=== PATIENT | female | born 1940 | race Caucasian/White ===

== ENCOUNTER 2023-01-09 14:15 | Emergency (ER) | payer MEDICARE, SELFPAY ==
[2023-01-09 14:17] VITALS: BP 147/70; PULSE 93; RESP 14; TEMP 36.8; O2SAT 98
--- NOTE | 2023-01-09 15:26 | EKG12_ITS ---
Test Reason : HTN Blood Pressure : / mmHG Vent. Rate : 081 BPM Atrial Rate : 081 BPM P-R Int : 138 ms QRS Dur : 084 ms QT Int : 388 ms P-R-T Axes : 025 -26 026 degrees QTc Int : 450 ms Sinus rhythm with occasional Premature ventricular complexes Minimal voltage criteria for LVH, may be normal variant ( R in aVL ) Inferior infarct , age undetermined Possible Anterior infarct , age undetermined Abnormal ECG Confirmed by QUITA BAILEY, FATIMAH ([id number]), greeting card editor JACQUI JUDD ([id number]) on 01/12/2023 8:28:21 AM Referred By: ANNETTE/GAVIOTA Confirmed By:NIDIA DEVLIN MD
--- NOTE | 2023-01-09 15:30 | NURSING ---
NO OLD EKG
--- NOTE | 2023-01-09 15:38 | EX.ED.DYSGE1 ---
HPI History of Present Illness Chief Complaint: Hypertension Informant: patient Narrative Narrative: Patient is a 82-year-old female with history of pulmonary fibrosis (on 2 L of oxygen at baseline), hypertension, migraines as well as regular headaches, anxiety and depression presenting for concerns of blood pressure issues as well as night sweats and increased headaches. Patient notes that she has been having blood pressure issues for months. She states that she starts to feel unwell and she will check her blood pressure will be elevated. She states her blood pressure as high as 174 and normal will be 130. She notes that she checks her blood pressure about every 3 hours but she is not feeling well she will check it more frequently. She notes that she is on 0.1 mg of clonidine twice daily as well as verapamil ER 240 mg. She states that around 3 AM she woke up feeling like her skin was on fire, her face was flushed and she was sweating and hot. She did not actually have a fever. She has been having these episodes intermittently. She notes her symptoms have been worse this week. She states she had some mild blurry vision. She has had headache which is different than her migraines as well as her chronic headaches. She states that on the top of her head and radiates to her neck. She denies any falls or head injuries. She denies any increase in her O2 requirements. She notes that when she ambulates with her oxygen on her oxygen stays around 94 however her heart rates been getting up to 103 with exertion. She denies any swelling of her legs. Denies any urinary symptoms. Denies any GI symptoms. Is living home alone. Her is now in a nursing facility and she recently relocated to the [facility] to be near other family. Denies any recent medication changes. Patient does note that she has had an ache in her chest that started today that is also between her shoulder blades. She notes that she has had this in the past but the things ever come of it. [facility] Medical History Anxiety GERD (gastroesophageal reflux disease) High cholesterol HTN (hypertension) Pulmonary fibrosis Home Medications cephalexin 500 mg capsule 500 mg PO BID #10 caps 01/09/23 [Rx Last Taken Unknown] Allergy/AdvReac Type Severity Reaction Status Date / Time No Known Allergies Allergy Verified 01/09/23 14:15 Social History Smoking Status: Never smoker ROS ROS ED Constitutional Constitutional ED: Reports sweats; Denies chills, fever(s) or weight loss Eyes Eyes: Reports blurry vision ENT ENT ED: Denies rhinorrhea or sore throat Cardiovascular Cardiovascular: Reports chest pain; Denies palpitations or racing heartbeat Respiratory/Chest Respiratory/Chest: Denies cough or dyspnea Gastrointestinal Gastrointestinal: Denies abdominal pain, constipation, diarrhea, melena, nausea or vomiting Musculoskeletal Musculoskeletal: Denies arthralgias or myalgias Neurologic Neurologic: Reports headache(s); Denies paresthesias or weakness Psychiatric Psychiatric: Reports anxiety and depression; Denies suicidal ideation or suicidal thoughts Hematologic/Lymphatic Hematologic/Lymphatic: Denies easy bleeding or easy bruising EXAM Physical Exam Const Vital Signs: 01/09/23 14:17 01/09/23 15:10 01/09/23 15:10 Temperature 98.3 F Temperature Source Temporal Pulse Rate 93 Respiratory Rate 14 Respiratory Effort Normal Non-Labored Respiratory Pattern Blood Pressure 147/70 H Blood Pressure Mean 95 Pulse Ox 98 Oxygen Delivery Method Room Air Room Air Oxygen Flow Rate (L/min) 01/09/23 15:41 01/09/23 15:41 01/09/23 16:30 Temperature Temperature Source Pulse Rate 75 95 Respiratory Rate 16 22 H Respiratory Effort Respiratory Pattern Normal Blood Pressure 177/80 H Blood Pressure Mean 112 Pulse Ox 95 Oxygen Delivery Method Nasal Cannula Oxygen Flow Rate (L/min) 3 01/09/23 19:11 Temperature Temperature Source Pulse Rate 70 Respiratory Rate 18 Respiratory Effort Respiratory Pattern Blood Pressure 180/85 H Blood Pressure Mean 116 Pulse Ox 97 Oxygen Delivery Method Nasal Cannula Oxygen Flow Rate (L/min) 3 Positive well nourished and well developed General Appearance ED: well developed and NAD HEENT Reports moist mucous membranes Eyes PERRL and EOMs intact bilaterally Neck supple and no JVD Chest Wall inspection of chest normal and palpation of chest normal Resp normal respiratory effort Resp Narrative: Crackles throughout consistent with history of pulmonary fibrosis, no increased work of breathing or conversational dyspnea Auscultation: Negative for wheezes or diminished lung sounds Cardio regular rate, regular rhythm and no murmurs GI normal to inspection, nondistended, normoactive bowel sounds and non-tender Back/Spine no CVA tenderness Neuro oriented x3 Sensorium / Orientation: alert Motor Exam: Negative for general weakness Psych mental status grossly normal Mood & Affect: anxious Skin no rashes or lesions noted and no wounds MDM MDM MDM Narrative Medical decision making narrative: Patient is evlauted for concern for labile BP ( high or normal) as well as general feeling of not feeling well, headache and hot sensation. Her symptoms are quite vague. Initially her blood pressure is normal. Does creased while she is in the ER however she is due for her evening clonidine. Prior to discharge she does take her clonidine. Her breathing is at her baseline. Broad work-up looking for metabolic cause of her symptoms, infectious as well as cardiac is performed. KG does not show any acute changes. Her high-sensitivity troponin is normal at 9. Her TSH is normal at 2.88. CBC shows a mild anemia with a hemoglobin 11.5 however I do not think this is the cause of her symptoms. CMP largely normal. Sodium mildly low at 134 which again I do not think is the cause of her symptoms. Urinalysis however does show a urinary tract infection with positive nitrites, 5-10 white blood cells and rare bacteria. Possible she has a subtle UTI that is causing these vague worsening of her symptoms. Patient is started on Keflex and given first dose in the emergency room. I do not think she requires admission for the symptoms at this time. As far as her pulmonary fibrosis she does not have any increased O2 demands or findings consistent with an acute pneumonia. I do wonder if there is an associated anxiety/depression that is causing her to have some of the symptoms and I did discuss this with her as well. Patient and niece at the bedside agreeable with discharge home. Given return precautions. Does have follow-up with her PCP in 10 days. Call sooner if she has further concerns or progression of symptoms. Lab Data Attestation: I reviewed the patient's lab results. Labs: Laboratory Results - last 24 hr 01/09/23 01/09/23 15:07 16:20 WBC 8.9 RBC 3.64 L Hgb 11.5 L Hct 36.7 L MCV 100.8 H MCH 31.6 MCHC 31.3 L RDW Std Deviation 49.9 H RDW Coeff of Francisca 13.4 Plt Count 248 MPV 9.1 Immature Gran % (Auto) 0.400 Neut % (Auto) 73.2 H Lymph % (Auto) 15.1 L [place] % (Auto) 7.5 Eos % (Auto) 2.9 Baso % (Auto) 0.9 Absolute Neuts (auto) 6.5 Absolute Lymphs (auto) 1.34 Nucleated RBC % 0 Sodium 134 L Potassium 3.5 Chloride 101 Carbon Dioxide 31.0 Anion Gap 2 L BUN 8 Creatinine 0.65 Est GFR (MDRD) Af Amer 112 Est GFR (MDRD) Non-Af 93 BUN/Creatinine Ratio 12.3 Glucose 108 H Calcium 8.8 Troponin I High Sens 9 TSH 2.88 Urine Color Yellow Urine Clarity Sl. Cloudy Urine pH 7.0 Ur Specific [place] 1.005 Urine Protein Negative Urine Glucose (UA) Normal Urine Ketones Negative Urine Occult Blood Negative Urine Nitrite Positive H Urine Bilirubin Negative Urine Urobilinogen Normal Ur Leukocyte Esterase 100 H Urine RBC 0 SEEN Urine WBC 5-10 SEEN Ur Squamous Epith Cells 0-5 SEEN Amorphous Sediment 1+ PHOS Urine Bacteria RARE Urine Mucus 0 SEEN Radiography Chest X-Ray - ED: 2 View, Read by ED Physician, Read by Radiologist and No Acute Disease Diagnostic Testing: Clinical Impression(s) from Imaging Studies Chest X-Ray 01/09/23 16:05 IMPRESSION: Diffuse interstitial opacities which may represent scar and fibrosis. There is no focal consolidation. Electronically Signed: Andrea Chao MD at 16:23 EST , Rhythm Strip Rhythm Strip: Sinus Rhythm Rate: 81 Ectopy: None EKG Initial EKG: Attestation: I personally reviewed and interpreted this EKG as follows: Interpretation: Sinus Rhythm Comments: Normal sinus rhythm at a rate of 81 bpm with PVC present Normal intervals Minimal voltage criteria for LVH Normal ST segments No prior EKG available for comparison Differential Diagnosis Chest pain/SOB: ACS ACS: Positive for no evidence of ACS based on cardiac biomarkers and EKG without ischemia and pneumonia Reason(s) pneumonia less likely: Positive for no infiltrate on CXR, no elevation in WBC count, no noted fever and symptoms not consistent with acute infection Discharge Plan Triage Chief Complaint: Hypertension ED Provider: Maci Bailon Dx/Rx/DC Orders Clinical Impression: Acute UTI, Hypertension Instructions: ED Hypertension, Established, ED Cystitis Female Adult Prescriptions: New cephalexin 500 mg capsule 500 mg PO BID Qty: 10 0RF Primary Care Provider: Сергей Verdugo Referrals: Сергей Verdugo MD [Primary Care Provider] - Activity Restrictions/Additional Instructions: Please check your blood pressure once or twice a day and keep a log. I do recommend checking your blood pressure after you have taking your blood pressure medicines. Continue taking all of your blood pressure medicines as prescribed. Your primary care doctor might want to make further adjustments when you follow-up. Call them on Thursday to let them know you are seen in the ER. Urinalysis is consistent with a urinary tract infection and you have been placed on a short course of antibiotics to help with this. This should not interact with your medications. Disposition Disposition: Home, Self Care Discharge Date/Time: 01/09/23 19:44
[2023-01-09] MEDS: Ipratropium/Albuterol Sulfate 3 ML AMPUL.NEB INHALATION (15:40)
[2023-01-09 15:41] VITALS: PULSE 75; RESP 16; O2SAT 95
[2023-01-09 15:53] LABS: Absolute Lymphocyte Count 1.34 X10^3/uL (0.83-4.51); Absolute Neutrophil Count 6.5 X10^3/uL (2.0-7.7); Basophil# 0.08 X10^3/uL; Basophil% 0.9 % (0-1); Eosinophil# 0.26 X10^3/uL; Eosinophils% 2.9 % (0-5); Hematocrit 36.7 % (37-47); Hemoglobin 11.5 g/dL (12.0-15.0); Lymphocyte # 1.34 X10^3/ul (0.83-4.51); Lymphocyte % 15.1 % (19-41); Mean Corp Hgb Conc 31.3 g/dL (32-36); Mean Corpuscular Hgb 31.6 pg (27.0-32.0); Mean Corpuscular Volume 100.8 fL (81-99); Mean Platelet Vol. 9.1 fl (6.2-12.0); Monocyte# 0.67 X10^3/uL; Monocyte% 7.5 % (0-10); NRBC Flagged by Analyzer 0 % (0-5); Neutrophil # 6.51 X10^3/uL (2.7-7.7); Neutrophil % 73.2 % (47-70); Platelet Count 248 K/mm3 (150-450); RBC Distribution Width CV 13.4 % (11.6-14.6); RBC Distribution Width SD 49.9 fl (35.1-43.9); Red Blood Count 3.64 M/mm3 (4.2-5.4); White Blood Count 8.9 K/mm3 (4.4-11.0)
--- NOTE | 2023-01-09 16:05 | RAD_ITS ---
EXAM: XR CHEST, 2 VIEWS CLINICAL INDICATION: sob TECHNIQUE: Frontal and lateral views of the chest. COMPARISON: No relevant prior studies available. FINDINGS: LUNGS AND PLEURAL SPACES: There are coarse interstitial opacities seen within both lungs greatest within the right upper and left lower lobe interstitial scarring and fibrosis. No pneumothorax. No effusion. HEART: Unremarkable. Cardiac silhouette not enlarged. MEDIASTINUM: Central airways and mediastinal contour are unremarkable. BONES/JOINTS: Unremarkable. SOFT TISSUES: Unremarkable. RAD/Chest PA and Lateral IMPRESSION: Diffuse interstitial opacities which may represent scar and fibrosis. There is no focal consolidation. Electronically Signed: Andrea Chao MD at 16:23 EST ,
[2023-01-09 16:06] LABS: Anion Gap 2 (5-15); BUN 8 mg/dL (7-18); BUN/Creat Ratio 12.3 RATIO (10-20); Calcium,Total 8.8 mg/dL (8.5-10.1); Chloride 101 mmol/L (98-107); Creatinine, Serum 0.65 mg/dL (0.55-1.02); EST Glomerular Filtration Rate 93 mL/min (>60); Est Glom Filt Rate - Afr Amer 112 mL/min (>60); Glucose 108 mg/dL (74-106); Potassium 3.5 mmol/L (3.5-5.1); Sodium Level 134 mmol/L (136-145); Thyroid Stim Hormone (TSH) 2.88 uIU/mL (0.358-3.74); Troponin-I HS 9 pg/mL (3.0-54.0)
[2023-01-09 16:30] VITALS: BP 177/80; PULSE 95; RESP 22
[2023-01-09 16:40] LABS: Mucous, Urine 0 SEEN /hpf (<or=2+); Red Blood Cells-Urine 0 SEEN /hpf (0-5)
[2023-01-09 17:01] LABS: Color, Urine Yellow (Yellow); Glucose, Dipstick Normal (Normal); Ketone-Dipstick Negative (Negative); Leukocyte Esterase-Dipstick 100 /ul (Negative); Nitrite-Dipstick Positive (Negative); Occult Blood-Urine Negative /ul (Negative); Protein-Dipstick Negative (Negative); Specific Gravity, Urine 1.005 (1.002-1.030); Urine Bilirubin Dipstick Negative (Negative); Urine Clarity Sl. Cloudy (Clear); Urine Urobilinogen Normal (Normal)
[2023-01-09 17:07] LABS: Bacteria RARE /hpf (None Seen); Squamous Epithelial Cells - UA 0-5 SEEN /hpf (5-10); White Blood Cells 5-10 SEEN /hpf (0-5)
[2023-01-09 17:08] LABS: Amorphous Sediment 1+ PHOS
[2023-01-09] MEDS: Cephalexin 250 MG Capsule 500 MG PO (18:55)
[2023-01-09 19:11] VITALS: BP 180/85; PULSE 70; RESP 18; O2SAT 97
[2023-01-09 19:14] VITALS: BMI 28.3
== END 2023-01-09 19:44 | disposition home or self-care (01) ==
PROVIDERS: Emergency Provider Emergency Medicine; PCP Internal Medicine; Visit Provider Emergency Medicine
DX: N39.0 Urinary tract infection, site not specified (principal); I10 Essential (primary) hypertension; Z99.81 Dependence on supplemental oxygen
CPT/HCPCS: 71046; 80048; 81001; 84443; 84484; 85025; 87077; 87086; 87088; 87186; 93005; 94640; 99284; A4216

== ENCOUNTER 2023-01-21 16:00 | Emergency (ER) | payer MEDICARE, SELFPAY ==
[2023-01-21] VITALS (22 sets, daily range): BP systolic 169–217; BP diastolic 84–166; PULSE 86–108; RESP 14–28; TEMP 36.7; O2SAT 95–98; BMI 26.2
--- NOTE | 2023-01-21 16:36 | EX.ED.DYSGE1 ---
HPI History of Present Illness Chief Complaint: Allergic Reaction Detail of Chief Complaint: Concern for allergic reaction Informant: patient Narrative Narrative: Patient presents with burning skin made worse today after taking prednisone. Patient states she was seen by her primary care physician 3 days ago and started prednisone for some sinus issues and cells that she was taken tapering dose prednisone. Patient also tells me she has had this burning skin sensation for some time in the past. She thought it was related possibly to soaps or perfumes or other allergens and so she started switching some things around. She also felt somewhat short of breath. She called the nurse line and was advised to come in and get evaluated. Patient has history of pulmonary fibrosis and is on 3 L nasal cannula O2 all the time. She denies any chest pain. [facility] Medical History Anxiety GERD (gastroesophageal reflux disease) High cholesterol HTN (hypertension) Pulmonary fibrosis Home Medications alprazolam 1 mg tablet 1 mg PO TID PRN anxiety 01/21/23 [History Last Taken Unknown] betamethasone valerate 0.1 % topical cream 1 applic topical Q12H PSORIASIS 01/21/23 [History Last Taken Unknown] clonidine HCl 0.1 mg tablet 0.1 mg PO TID HTN 01/21/23 [History Last Taken Unknown] esomeprazole magnesium 40 mg capsule,delayed release 40 mg PO Q12H 01/21/23 [History Last Taken Unknown] fluticasone propionate 110 mcg/actuation HFA aerosol inhaler (Flovent HFA) inhalation 01/21/23 [History Last Taken Unknown] fluticasone propionate 50 mcg/actuation nasal spray,suspension intranasal 01/21/23 [History Last Taken Unknown] levothyroxine 25 mcg tablet 25 mcg PO DAILY 01/21/23 [History Last Taken Unknown] pirfenidone 267 mg capsule (Esbriet) 267 mg PO TID 01/21/23 [History Last Taken Unknown] prednisone 10 mg tablet 10 mg PO 01/21/23 [History Last Taken Unknown] Allergy/AdvReac Type Severity Reaction Status Date / Time amoxicillin Allergy Mild PT UNSURE Verified 01/21/23 16:46 OF REACTION aspirin Allergy Mild PALPITATION Verified 01/21/23 16:46 S ibuprofen Allergy Mild Swelling Verified 01/21/23 16:46 montelukast Allergy Mild Rash Verified 01/21/23 16:46 rofecoxib Allergy Mild Itching Verified 01/21/23 16:46 Sulfa (Sulfonamide Allergy Mild Rash Verified 01/21/23 16:46 Antibiotics) doxycycline AdvReac Mild GI UPSET Verified 01/21/23 16:46 lisinopril AdvReac Mild GI UPSET Verified 01/21/23 16:46 sertraline AdvReac Mild Diarrhea Verified 01/21/23 16:46 Social History Smoking Status: Never smoker ROS ROS ED Review of Systems ROS Unobtainable: other Constitutional Constitutional ED: Reports lethargy; Denies chills, fever(s), sweats or weight loss Eyes Eyes: Denies blurry vision, change in vision or diplopia ENT ENT ED: Denies rhinorrhea or sore throat Cardiovascular Cardiovascular: Denies chest pain, orthopnea or racing heartbeat Respiratory/Chest Respiratory/Chest: Reports dyspnea; Denies cough, orthopnea or sputum Gastrointestinal Gastrointestinal: Denies abdominal pain, diarrhea, nausea or vomiting Genitourinary Genitourinary ED: Denies dysuria, hematuria or urinary frequency Musculoskeletal Musculoskeletal: Denies arthralgias, back pain, myalgias or neck pain Integumentary Reports other Details: Burning skin sensation ; Denies abscess, Abrasions or rash Neurologic Neurologic: Denies headache(s) or weakness Psychiatric Psychiatric: Denies anxiety, depression or suicidal thoughts Endocrine Endocrinology: Denies polydipsia, polyphagia or polyuria Hematologic/Lymphatic Hematologic/Lymphatic: Denies easy bleeding, easy bruising or lymphadenopathy Allergic/Immunologic Allergic/Immunologic ED: Denies mouth swelling, tongue swelling or urticaria EXAM Physical Exam Const Vital Signs: 01/21/23 16:01 01/21/23 16:10 01/21/23 16:20 Temperature 98.1 F Temperature Source Temporal Pulse Rate 108 H 91 91 Respiratory Rate 16 14 Respiratory Effort Respiratory Depth Respiratory Pattern Blood Pressure 217/166 H 184/97 H 187/90 H Blood Pressure Mean 183 126 122 Pulse Ox 95 98 98 Oxygen Delivery Method Nasal Cannula Nasal Cannula Nasal Cannula Oxygen Flow Rate (L/min) 3 3 3 01/21/23 16:21 01/21/23 16:47 01/21/23 16:50 Temperature Temperature Source Pulse Rate 90 Respiratory Rate 28 H 21 H Respiratory Effort Short of Breath Respiratory Depth Normal Respiratory Pattern Normal Blood Pressure Blood Pressure Mean Pulse Ox 98 98 Oxygen Delivery Method Nasal Cannula Oxygen Flow Rate (L/min) 3 01/21/23 17:00 01/21/23 17:13 01/21/23 17:15 Temperature Temperature Source Pulse Rate 86 95 90 Respiratory Rate 26 H 27 H 23 H Respiratory Effort Respiratory Depth Respiratory Pattern Blood Pressure 176/90 H 190/89 H Blood Pressure Mean 116 117 Pulse Ox 98 96 98 Oxygen Delivery Method Oxygen Flow Rate (L/min) 01/21/23 17:20 01/21/23 17:30 01/21/23 17:40 Temperature Temperature Source Pulse Rate 89 88 89 Respiratory Rate 24 H 21 H 24 H Respiratory Effort Respiratory Depth Respiratory Pattern Blood Pressure 186/90 H Blood Pressure Mean 117 Pulse Ox 98 98 98 Oxygen Delivery Method Oxygen Flow Rate (L/min) 01/21/23 17:45 01/21/23 17:50 01/21/23 18:00 Temperature Temperature Source Pulse Rate 87 89 91 Respiratory Rate 19 H 24 H 18 Respiratory Effort Respiratory Depth Respiratory Pattern Blood Pressure 169/92 H 190/85 H Blood Pressure Mean 116 114 Pulse Ox 98 98 98 Oxygen Delivery Method Oxygen Flow Rate (L/min) 01/21/23 18:10 01/21/23 18:15 01/21/23 18:20 Temperature Temperature Source Pulse Rate 90 94 92 Respiratory Rate 28 H 21 H 21 H Respiratory Effort Respiratory Depth Respiratory Pattern Blood Pressure 191/91 H Blood Pressure Mean 117 Pulse Ox 98 98 98 Oxygen Delivery Method Oxygen Flow Rate (L/min) 01/21/23 18:30 01/21/23 18:40 01/21/23 18:45 Temperature Temperature Source Pulse Rate 94 93 92 Respiratory Rate 28 H 28 H 22 H Respiratory Effort Respiratory Depth Respiratory Pattern Blood Pressure 190/89 H 183/84 H Blood Pressure Mean 116 111 Pulse Ox 98 98 98 Oxygen Delivery Method Oxygen Flow Rate (L/min) 01/21/23 18:50 Temperature Temperature Source Pulse Rate 94 Respiratory Rate 19 H Respiratory Effort Respiratory Depth Respiratory Pattern Blood Pressure Blood Pressure Mean Pulse Ox 97 Oxygen Delivery Method Oxygen Flow Rate (L/min) Positive well nourished and well developed General Appearance ED: well developed and NAD HEENT Reports TM's clear and moist mucous membranes normocephalic and atraumatic; Negative for trauma or tenderness Tympanic Membrane ED: Yes TM's clear Eyes PERRL and EOMs intact bilaterally General Eye ED: Negative for pale conjunctiva or scleral icterus Neck no lymphadenopathy, supple and no JVD General: Negative for tenderness Chest Wall inspection of chest normal and palpation of chest normal Chest: Negative for tenderness Resp normal respiratory effort and clear to auscultation bilaterally Effort and Inspection: Negative for respiratory distress or pain with movement Auscultation: Negative for rhonchi, wheezes or diminished lung sounds Cardio regular rate, regular rhythm, S1 normal heart sound, S2 normal heart sound and no murmurs Peripheral Pulses: pulses 2+ throughout GI normal to inspection, nondistended, normoactive bowel sounds, soft to palpation, non-tender, non-distended and no masses Back/Spine no CVA tenderness and no thoracic nor lumbar tenderness Extremity normal to inspection General Extremety ED: Negative for edema General Extremity: Negative for edema Neuro oriented x3, CN's II-XII intact bilaterally, no sensory deficits noted and gait normal Sensorium / Orientation: awake, alert, oriented to person, oriented to place and oriented to time Motor Exam: strength 5/5 throughout and strength abnormal Psych mental status grossly normal Skin no rashes or lesions noted and no wounds MDM MDM MDM Narrative Medical decision making narrative: Patient presents with burning skin and some mild shortness of breath that she thinks is related to starting prednisone. Patient's had similar episodes in the past when taking prednisone. Currently the burning skin sensation seems to be improved. I did obtain some basic labs. CBC with differential showed a white count of 8.8 with hemoglobin 11.5 and platelet count of 240. Chemistries unremarkable. Glucose slightly elevated 168 and urinalysis is normal. At this point I recommended she discontinue the prednisone. She is in agreement. She will use Maria C for itching should she need it. There is no evidence for anaphylaxis here. Also recommended that she alert her primary care physician and other physicians regarding her reaction to prednisone in the future. Lab Data Attestation: I reviewed the patient's lab results. Labs: Laboratory Results - last 24 hr 01/21/23 01/21/23 16:16 17:12 WBC 8.8 RBC 3.66 L Hgb 11.5 L Hct 36.4 L MCV 99.5 H MCH 31.4 MCHC 31.6 L RDW Std Deviation 48.9 H RDW Coeff of [place]isca 13.4 Plt Count 240 MPV 9.5 Immature Gran % (Auto) 1.400 H Neut % (Auto) 93.0 H Lymph % (Auto) 4.2 L [place] % (Auto) 0.7 Eos % (Auto) 0.2 Baso % (Auto) 0.5 Absolute Neuts (auto) 8.1 H Absolute Lymphs (auto) 0.37 L Nucleated RBC % 0 Differential Comment SCANNED Sodium 135 L Potassium 3.9 Chloride 102 Carbon Dioxide 31.0 Anion Gap 2 L BUN 12 Creatinine 0.66 Estim Creat Clear Calc 34.90 Est GFR (MDRD) Af Amer 111 Est GFR (MDRD) Non-Af 92 BUN/Creatinine Ratio 18.3 Glucose 169 H Calcium 9.3 Urine Color Yellow Urine Clarity Clear Urine pH 7.0 Ur Specific [place] 1.010 Urine Protein Negative Urine Glucose (UA) Normal Urine Ketones Negative Urine Occult Blood Negative Urine Nitrite Negative Urine Bilirubin Negative Urine Urobilinogen Normal Ur Leukocyte Esterase Negative Urine RBC 0 SEEN Urine WBC 0 SEEN Ur Squamous Epith Cells 0 SEEN Urine Bacteria 0 SEEN Urine Mucus 0 SEEN Discharge Plan Triage Chief Complaint: Allergic Reaction ED Provider: Doni Crocker Dx/Rx/DC Orders Clinical Impression: Side effect of drug Instructions: ED Drug Reaction, Other Prescriptions: No Action clonidine HCl 0.1 mg tablet 0.1 mg PO TID prednisone 10 mg tablet 10 mg PO alprazolam 1 mg tablet 1 mg PO TID PRN (Reason: anxiety) betamethasone valerate 0.1 % cream 1 applic TOPICAL Q12H Patient Comments: APPLY 1 APPLICATION TO AFFECTED AREA TWICE DAILY esomeprazole magnesium 40 mg capsule,delayed release(DR/EC) 40 mg PO Q12H fluticasone propionate 50 mcg/actuation spray,suspension INTRANASAL fluticasone propionate [Flovent HFA] 110 mcg/actuation HFA aerosol inhaler INHALATION pirfenidone [Esbriet] 267 mg capsule 267 mg PO TID levothyroxine 25 mcg tablet 25 mcg PO DAILY Primary Care Provider: Сергей Verdugo Referrals: Сергей Verdugo MD [Primary Care Provider] - 3-5 Days Disposition Disposition: Home, Self Care
[2023-01-21 17:05] LABS: Absolute Lymphocyte Count 0.37 X10^3/uL (0.83-4.51); Absolute Neutrophil Count 8.1 X10^3/uL (2.0-7.7); Basophil# 0.04 X10^3/uL; Basophil% 0.5 % (0-1); Eosinophil# 0.02 X10^3/uL; Eosinophils% 0.2 % (0-5); Hematocrit 36.4 % (37-47); Hemoglobin 11.5 g/dL (12.0-15.0); Lymphocyte # 0.37 X10^3/ul (0.83-4.51); Lymphocyte % 4.2 % (19-41); Mean Corp Hgb Conc 31.6 g/dL (32-36); Mean Corpuscular Hgb 31.4 pg (27.0-32.0); Mean Corpuscular Volume 99.5 fL (81-99); Mean Platelet Vol. 9.5 fl (6.2-12.0); Monocyte# 0.06 X10^3/uL; Monocyte% 0.7 % (0-10); NRBC Flagged by Analyzer 0 % (0-5); Neutrophil # 8.14 X10^3/uL (2.7-7.7); POSITIVE DIFFERENTIAL YES; Platelet Count 240 K/mm3 (150-450); RBC Distribution Width CV 13.4 % (11.6-14.6); RBC Distribution Width SD 48.9 fl (35.1-43.9); Red Blood Count 3.66 M/mm3 (4.2-5.4); White Blood Count 8.8 K/mm3 (4.4-11.0)
[2023-01-21 17:07] LABS: Anion Gap 2 (5-15); BUN 12 mg/dL (7-18); BUN/Creat Ratio 18.3 RATIO (10-20); Calcium,Total 9.3 mg/dL (8.5-10.1); Chloride 102 mmol/L (98-107); Creatinine, Serum 0.66 mg/dL (0.55-1.02); EST Glomerular Filtration Rate 92 mL/min (>60); Est Glom Filt Rate - Afr Amer 111 mL/min (>60); Glucose 169 mg/dL (74-106); Potassium 3.9 mmol/L (3.5-5.1); Sodium Level 135 mmol/L (136-145)
[2023-01-21 17:09] LABS: Differential Indicated SCAN CRITERIA MET
[2023-01-21 17:24] LABS: Bacteria 0 SEEN /hpf (None Seen); Mucous, Urine 0 SEEN /hpf (<or=2+); Red Blood Cells-Urine 0 SEEN /hpf (0-5); Squamous Epithelial Cells - UA 0 SEEN /hpf (5-10); White Blood Cells 0 SEEN /hpf (0-5)
[2023-01-21 17:30] LABS: Color, Urine Yellow (Yellow); Glucose, Dipstick Normal (Normal); Ketone-Dipstick Negative (Negative); Leukocyte Esterase-Dipstick Negative /ul (Negative); Nitrite-Dipstick Negative (Negative); Occult Blood-Urine Negative /ul (Negative); Protein-Dipstick Negative (Negative); Urine Bilirubin Dipstick Negative (Negative); Urine Clarity Clear (Clear); Urine Urobilinogen Normal (Normal)
[2023-01-21 17:49] LABS: Differential Comment SCANNED
== END 2023-01-21 19:24 | disposition home or self-care (01) ==
PROVIDERS: Emergency Provider Emergency Medicine; PCP Internal Medicine; Visit Provider Emergency Medicine
DX: R06.02 Shortness of breath (principal); T38.0X5A Adverse effect of glucocorticoids and synthetic analogues, initial encounter; Z79.899 Other long term (current) drug therapy
CPT/HCPCS: 80048; 81001; 85025; 87428; 99285; A4216

== ENCOUNTER → 2023-07-28 | Outpatient (REF) | payer MEDICARE, SELFPAY ==
[2023-07-28 08:23] LABS: Absolute Lymphocyte Count 1.17 X10^3/uL (0.83-4.51); Absolute Neutrophil Count 5.1 X10^3/uL (2.0-7.7); Basophil# 0.07 X10^3/uL; Basophil% 0.9 % (0-1); Eosinophil# 0.66 X10^3/uL; Eosinophils% 8.5 % (0-5); Hematocrit 36.5 % (37-47); Hemoglobin 11.5 g/dL (12.0-15.0); Lymphocyte # 1.17 X10^3/ul (0.83-4.51); Lymphocyte % 15.2 % (19-41); Mean Corp Hgb Conc 31.5 g/dL (32-36); Mean Corpuscular Hgb 32.4 pg (27.0-32.0); Mean Corpuscular Volume 102.8 fL (81-99); Mean Platelet Vol. 9.5 fl (6.2-12.0); Monocyte# 0.62 X10^3/uL; NRBC Flagged by Analyzer 0 % (0-5); Neutrophil # 5.09 X10^3/uL (2.7-7.7); Platelet Count 228 K/mm3 (150-450); RBC Distribution Width CV 12.2 % (11.6-14.6); RBC Distribution Width SD 46.5 fl (35.1-43.9); Red Blood Count 3.55 M/mm3 (4.2-5.4); White Blood Count 7.7 K/mm3 (4.4-11.0)
[2023-07-28 09:50] LABS: ALB/GLOB Ratio 0.9 RATIO (0.9-2.4); AST(SGOT) 25 U/L (15-37); Alanine Aminotransfer ALT/SGPT 21 U/L (13-56); Albumin, Serum 3.4 g/dL (3.2-5.0); Alkaline Phosphatase 84 U/L (45-117); Anion Gap 5 (5-15); BUN 8 mg/dL (7-18); BUN/Creat Ratio 11.4 RATIO (10-20); Chloride 102 mmol/L (98-107); EST Glomerular Filtration Rate 85 mL/min (>60); Est Glom Filt Rate - Afr Amer 103 mL/min (>60); Globulin 3.7 g/dL (2.2-4.2); Glucose 101 mg/dL (74-106); Potassium 4.1 mmol/L (3.5-5.1); Protein, Total 7.1 g/dL (6.4-8.2); Sodium Level 137 mmol/L (136-145); Thyroid Stim Hormone (TSH) 2.28 uIU/mL (0.358-3.74)
== END ==
LOC: OLS.WHLEAS 05:00
PROVIDERS: PCP Internal Medicine; Visit Provider Internal Medicine
DX: E03.9 Hypothyroidism, unspecified (principal); I10 Essential (primary) hypertension
CPT/HCPCS: 36415; 80053; 84443; 85025

== ENCOUNTER → 2023-08-11 | Outpatient (REF) | payer MEDICARE, SELFPAY ==
[2023-08-11 09:43] LABS: Absolute Lymphocyte Count 1.65 X10^3/uL (0.83-4.51); Absolute Neutrophil Count 4.1 X10^3/uL (2.0-7.7); Basophil# 0.09 X10^3/uL; Basophil% 1.3 % (0-1); Eosinophil# 0.52 X10^3/uL; Eosinophils% 7.6 % (0-5); Hematocrit 37.4 % (37-47); Hemoglobin 11.7 g/dL (12.0-15.0); Lymphocyte # 1.65 X10^3/ul (0.83-4.51); Mean Corp Hgb Conc 31.3 g/dL (32-36); Mean Corpuscular Hgb 32.1 pg (27.0-32.0); Mean Corpuscular Volume 102.7 fL (81-99); Mean Platelet Vol. 9.5 fl (6.2-12.0); Monocyte# 0.51 X10^3/uL; Monocyte% 7.4 % (0-10); NRBC Flagged by Analyzer 0 % (0-5); Neutrophil # 4.09 X10^3/uL (2.7-7.7); Neutrophil % 59.4 % (47-70); Platelet Count 260 K/mm3 (150-450); RBC Distribution Width SD 45.5 fl (35.1-43.9); Red Blood Count 3.64 M/mm3 (4.2-5.4); White Blood Count 6.9 K/mm3 (4.4-11.0)
[2023-08-11 10:20] LABS: ALB/GLOB Ratio 0.8 RATIO (0.9-2.4); AST(SGOT) 16 U/L (15-37); Alanine Aminotransfer ALT/SGPT 18 U/L (13-56); Albumin, Serum 3.2 g/dL (3.2-5.0); Alkaline Phosphatase 95 U/L (45-117); Anion Gap 5 (5-15); BUN 9 mg/dL (7-18); Calcium,Total 9.7 mg/dL (8.5-10.1); Chloride 103 mmol/L (98-107); Creatinine, Serum 0.64 mg/dL (0.55-1.02); EST Glomerular Filtration Rate 94 mL/min (>60); Est Glom Filt Rate - Afr Amer 114 mL/min (>60); Globulin 4.1 g/dL (2.2-4.2); Glucose 102 mg/dL (74-106); Potassium 3.9 mmol/L (3.5-5.1); Protein, Total 7.3 g/dL (6.4-8.2); Sodium Level 139 mmol/L (136-145); Thyroid Stim Hormone (TSH) 3.26 uIU/mL (0.358-3.74)
== END ==
LOC: OLS.WHLEAS 05:00
PROVIDERS: PCP Internal Medicine; Visit Provider Internal Medicine
DX: E03.9 Hypothyroidism, unspecified (principal); I10 Essential (primary) hypertension
CPT/HCPCS: 36415; 80053; 84443; 85025

== ENCOUNTER → 2023-08-25 | Outpatient (REF) | payer MEDICARE, SELFPAY ==
[2023-08-25 09:30] LABS: Absolute Lymphocyte Count 1.29 X10^3/uL (0.83-4.51); Absolute Neutrophil Count 4.2 X10^3/uL (2.0-7.7); Basophil# 0.06 X10^3/uL; Basophil% 0.9 % (0-1); Eosinophil# 0.59 X10^3/uL; Eosinophils% 8.8 % (0-5); Hematocrit 35.3 % (37-47); Hemoglobin 10.9 g/dL (12.0-15.0); Lymphocyte # 1.29 X10^3/ul (0.83-4.51); Lymphocyte % 19.2 % (19-41); Mean Corp Hgb Conc 30.9 g/dL (32-36); Mean Corpuscular Hgb 31.9 pg (27.0-32.0); Mean Corpuscular Volume 103.2 fL (81-99); Mean Platelet Vol. 9.8 fl (6.2-12.0); Monocyte% 8.9 % (0-10); NRBC Flagged by Analyzer 0 % (0-5); Neutrophil # 4.16 X10^3/uL (2.7-7.7); Neutrophil % 61.9 % (47-70); Platelet Count 227 K/mm3 (150-450); RBC Distribution Width CV 12.3 % (11.6-14.6); RBC Distribution Width SD 46.5 fl (35.1-43.9); Red Blood Count 3.42 M/mm3 (4.2-5.4); White Blood Count 6.7 K/mm3 (4.4-11.0)
[2023-08-25 09:36] LABS: ALB/GLOB Ratio 0.9 RATIO (0.9-2.4); AST(SGOT) 14 U/L (15-37); Alanine Aminotransfer ALT/SGPT 14 U/L (13-56); Alkaline Phosphatase 80 U/L (45-117); Anion Gap 3 (5-15); BUN 9 mg/dL (7-18); Calcium,Total 8.9 mg/dL (8.5-10.1); Chloride 103 mmol/L (98-107); Creatinine, Serum 0.69 mg/dL (0.55-1.02); EST Glomerular Filtration Rate 86 mL/min (>60); Est Glom Filt Rate - Afr Amer 105 mL/min (>60); Globulin 3.4 g/dL (2.2-4.2); Glucose 99 mg/dL (74-106); Potassium 3.8 mmol/L (3.5-5.1); Protein, Total 6.4 g/dL (6.4-8.2); Sodium Level 140 mmol/L (136-145)
== END ==
LOC: OLS.WHLEAS 06:25
PROVIDERS: PCP Internal Medicine; Visit Provider Internal Medicine
DX: E03.9 Hypothyroidism, unspecified (principal); I10 Essential (primary) hypertension
CPT/HCPCS: 36415; 80053; 84443; 85025

== ENCOUNTER → 2023-09-11 | Outpatient (CLI) | payer MEDICARE, SELFPAY ==
--- NOTE | 2023-09-11 13:11 | RAD_ITS ---
STUDY: X-RAY - PELVIS AND RIGHT HIP REASON FOR EXAM: Female, 83 years old. PAIN TECHNIQUE: 3 views of the pelvis and hip. COMPARISON: None. FINDINGS: There is a non-specific bowel gas pattern. Normal visualized soft tissue structures. Normal bilateral iliac wings, sacroiliac joints and visualized sacrum. Normal bilateral superior and inferior pubic rami. Normal pubic symphysis. Normal bilateral ischial tuberosities. There are osteoarthritic changes of the femoral head with marginal osteophyte formation. There is cortical sclerosis with sub-cortical cyst formation of the acetabulum. is severe articular joint space narrowing of the hip. 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 Electronically Signed: Nikhil Sarabia MD at 14:12 EDT ,
== END | disposition home or self-care (01) ==
PROVIDERS: PCP Internal Medicine; Referring Provider Anesthesiology; Visit Provider Anesthesiology
DX: M25.551 Pain in right hip (principal)
CPT/HCPCS: 73502

== ENCOUNTER → 2023-09-15 05:00 | Outpatient (REF) | payer MEDICARE, SELFPAY ==
[2023-09-15 08:29] LABS: Absolute Lymphocyte Count 1.12 X10^3/uL (0.83-4.51); Absolute Neutrophil Count 2.8 X10^3/uL (2.0-7.7); Basophil# 0.07 X10^3/uL; Basophil% 1.3 % (0-1); Eosinophil# 0.68 X10^3/uL; Eosinophils% 12.9 % (0-5); Hematocrit 34.3 % (37-47); Hemoglobin 10.7 g/dL (12.0-15.0); Lymphocyte # 1.12 X10^3/ul (0.83-4.51); Lymphocyte % 21.3 % (19-41); Mean Corp Hgb Conc 31.2 g/dL (32-36); Mean Corpuscular Hgb 31.3 pg (27.0-32.0); Mean Corpuscular Volume 100.3 fL (81-99); Mean Platelet Vol. 9.9 fl (6.2-12.0); Monocyte# 0.58 X10^3/uL; NRBC Flagged by Analyzer 0 % (0-5); Neutrophil # 2.79 X10^3/uL (2.7-7.7); Neutrophil % 53.1 % (47-70); Platelet Count 227 K/mm3 (150-450); RBC Distribution Width CV 12.2 % (11.6-14.6); RBC Distribution Width SD 44.3 fl (35.1-43.9); Red Blood Count 3.42 M/mm3 (4.2-5.4); White Blood Count 5.3 K/mm3 (4.4-11.0)
[2023-09-15 08:38] LABS: Anion Gap 3 (5-15); BUN 9 mg/dL (7-18); BUN/Creat Ratio 15.9 RATIO (10-20); Calcium,Total 8.8 mg/dL (8.5-10.1); Chloride 101 mmol/L (98-107); Creatinine, Serum 0.57 mg/dL (0.55-1.02); EST Glomerular Filtration Rate 109 mL/min (>60); Est Glom Filt Rate - Afr Amer 132 mL/min (>60); Glucose 113 mg/dL (74-106); Sodium Level 137 mmol/L (136-145)
== END ==
LOC: OLS.WHLEAS 05:00
PROVIDERS: PCP Internal Medicine; Visit Provider Nurse Practitioner Adult Health
DX: I10 Essential (primary) hypertension (principal)
CPT/HCPCS: 36415; 80048; 85025

== ENCOUNTER → 2023-10-20 05:00 | Outpatient (REF) | payer MEDICARE, SELFPAY ==
[2023-10-20 08:34] LABS: AST(SGOT) 14 U/L (15-37); Alanine Aminotransfer ALT/SGPT 13 U/L (13-56); Albumin, Serum 2.8 g/dL (3.2-5.0); Alkaline Phosphatase 81 U/L (45-117); Bilirubin, Direct 0.07 mg/dL (0.00-0.30); Globulin 3.7 g/dL (2.2-4.2); Protein, Total 6.5 g/dL (6.4-8.2)
== END ==
LOC: OLS.WHLEAS 05:00
PROVIDERS: PCP Internal Medicine; Visit Provider Internal Medicine
DX: E03.9 Hypothyroidism, unspecified (principal)
CPT/HCPCS: 36415; 80076; 84443

== ENCOUNTER 2023-11-30 19:22 | Emergency (ER) | payer MEDICARE, MEDICAID, SELFPAY ==
[2023-11-30 19:24] VITALS: BP 172/93; PULSE 104; RESP 18; TEMP 36.5; O2SAT 84
[2023-11-30 19:28] VITALS: BMI 25.3
[2023-11-30 19:41] VITALS: PULSE 99; RESP 16; O2SAT 77
[2023-11-30 19:48] VITALS: O2SAT 92
--- NOTE | 2023-11-30 21:01 | EDS_ITS ---
HPI History of Present Illness Chief Complaint: Nosebleed Narrative Narrative: Chief complaint and HPI: Nosebleed. 83-year-old female presents for evaluation of a nosebleed. Patient states she wears oxygen at home and this often dries out her nose. She states she has been having an intermittent nosebleed all day. She states she could not stop it at home which is why she presents currently. She denies any headache, lightheadedness, shortness of breath, chest pain abdominal pain, nausea, vomiting, weakness. Patient is not on any blood thinners. Review of systems: See HPI Medications: As listed on the chart Allergies: As listed on the chart PFSH: Per chart Vital signs: As listed on the chart. Reviewed. Physical exam: Gen: A&O x3, NAD Head: Normocephalic, atraumatic Eyes: No sclera icterus, conjunctiva clear, PERRL, EOMI ENT: Bilateral nares with blood clots -patient blew her nose and these were easily removed, bilateral nares without any active bleeding or injury, moist mucous membranes, posterior oropharynx unremarkable without dried blood or blood in the mouth, uvula midline Neck: Trachea midline, No JVD, Full ROM CV: RRR, no murmurs Resp: Lungs CTA BL, no w/r/c Musc: Full ROM, no deformity Neuro: Alert, oriented, grossly intact Psych: Cooperative, appropriate mood and affect [facility] Medical History Anxiety GERD (gastroesophageal reflux disease) High cholesterol HTN (hypertension) Pulmonary fibrosis Home Medications ?Medication ?Instructions ?Recorded ?Last Taken ?Type alprazolam 1 mg tablet 1 mg PO TID PRN anxiety 01/21/23 Unknown History clonidine HCl 0.1 mg tablet 0.1 mg PO TID HTN 01/21/23 Unknown History fluticasone propionate 110 1 puff inhalation Q12H 01/21/23 Unknown History mcg/actuation HFA aerosol inhaler (Flovent HFA) fluticasone propionate 50 1 spray intranasal Q12H 01/21/23 Unknown History mcg/actuation nasal spray,suspension levothyroxine 25 mcg tablet 25 mcg PO DAILY 01/21/23 Unknown History pirfenidone 267 mg capsule 267 mg PO TID 01/21/23 Unknown History (Esbriet) Allergy/AdvReac Type Severity Reaction Status Date / Time amoxicillin Allergy Mild PT UNSURE Verified 01/21/23 16:46 OF REACTION aspirin Allergy Mild PALPITATION Verified 01/21/23 16:46 S ibuprofen Allergy Mild Swelling Verified 01/21/23 16:46 montelukast Allergy Mild Rash Verified 01/21/23 16:46 rofecoxib Allergy Mild Itching Verified 01/21/23 16:46 Sulfa (Sulfonamide Allergy Mild Rash Verified 01/21/23 16:46 Antibiotics) doxycycline AdvReac Mild GI UPSET Verified 01/21/23 16:46 lisinopril AdvReac Mild GI UPSET Verified 01/21/23 16:46 sertraline AdvReac Mild Diarrhea Verified 01/21/23 16:46 Social History Smoking Status: Never smoker EXAM Physical Exam Const Vital Signs: 11/30/23 19:24 11/30/23 19:41 11/30/23 19:48 Temperature 97.7 F L Temperature Source Temporal Pulse Rate 104 H 99 Respiratory Rate 18 16 Blood Pressure 172/93 H Blood Pressure Mean 119 Pulse Ox 84 77 92 Oxygen Delivery Method Room Air 11/30/23 21:50 11/30/23 22:10 Temperature 97.6 F L Temperature Source Pulse Rate 96 89 Respiratory Rate 20 H 18 Blood Pressure 196/95 H 155/62 H Blood Pressure Mean 128 93 Pulse Ox 99 94 Oxygen Delivery Method Room Air MDM MDM MDM Narrative Medical decision making narrative: 83-year-old female presents for evaluation of nosebleed. Has been intermittent all day. Patient wears oxygen at baseline which dries out her nose. Patient is not on any blood thinners. She is asymptomatic other than a nosebleed. Given that patient is not on any blood thinners and asymptomatic I do not think any laboratory workup is needed at this time. See physical exam findings. Currently no active bleeding. Patient's continued bleeding may have been secondary to the large blood clots in her bilateral nares. No posterior bleeding. Afrin spray was placed in bilateral nares with nose clamp. After some time, nose clamp was removed and patient was ambulated in the emergency department. Vital stable. No recurrent bleeding. Patient was given Afrin spray and nose plug for home. Stable to discharge home. Follow-up with PCP. Return precautions explained. She confirmed understand the plan. Impression: 1. Anterior epistaxis Discharge Plan Triage Chief Complaint: Nosebleed ED Provider: Jose Raul Paeg Dx/Rx/DC Orders Instructions: Nosebleed Prescriptions: No Action clonidine HCl 0.1 mg tablet 0.1 mg PO TID alprazolam 1 mg tablet 1 mg PO TID PRN (Reason: anxiety) fluticasone propionate 50 mcg/actuation spray,suspension 1 spray INTRANASAL Q12H fluticasone propionate [Flovent HFA] 110 mcg/actuation HFA aerosol inhaler 1 puff INHALATION Q12H pirfenidone [Esbriet] 267 mg capsule 267 mg PO TID levothyroxine 25 mcg tablet 25 mcg PO DAILY Primary Care Provider: Сергей Verdugo Referrals: Сергей Verdugo MD [Primary Care Provider] - 3-5 Days Activity Restrictions/Additional Instructions: Use Afrin spray and nose plug if rebleeding occurs. If bleeding does not stop return back to the ED. Print Language: Austrian Disposition Disposition: Home, Self Care Discharge Date/Time: 11/30/23 22:10
[2023-11-30] MEDS: Oxymetazoline 0.05% 1 SPRAY SPRAY.BTL 2 SPRAY NASAL (21:12)
[2023-11-30 21:50] VITALS: BP 196/95; PULSE 96; RESP 20; O2SAT 99
[2023-11-30 22:10] VITALS: BP 155/62; PULSE 89; RESP 18; TEMP 36.4; O2SAT 94
== END 2023-11-30 22:10 | disposition home or self-care (01) ==
PROVIDERS: Emergency Provider Surgery; PCP Internal Medicine; Visit Provider Surgery
DX: R04.0 Epistaxis (principal); J84.10 Pulmonary fibrosis, unspecified; I10 Essential (primary) hypertension; F41.9 Anxiety disorder, unspecified; K21.9 Gastro-esophageal reflux disease without esophagitis; E78.00 Pure hypercholesterolemia, unspecified; Z88.0 Allergy status to penicillin; Z88.1 Allergy status to other antibiotic agents; Z88.6 Allergy status to analgesic agent; Z79.899 Other long term (current) drug therapy
CPT/HCPCS: 99282

== ENCOUNTER → 2024-01-19 | Outpatient (REF) | payer MEDICARE, SELFPAY ==
[2024-01-19 08:05] LABS: Absolute Lymphocyte Count 1.39 X10^3/uL (0.83-4.51); Absolute Neutrophil Count 4.5 X10^3/uL (2.0-7.7); Basophil# 0.09 X10^3/uL; Basophil% 1.2 % (0-1); Eosinophil# 0.75 X10^3/uL; Eosinophils% 10.1 % (0-5); Hematocrit 29.5 % (37-47); Hemoglobin 9.1 g/dL (12.0-15.0); Lymphocyte # 1.39 X10^3/ul (0.83-4.51); Lymphocyte % 18.8 % (19-41); Mean Corp Hgb Conc 30.8 g/dL (32-36); Mean Corpuscular Hgb 30.8 pg (27.0-32.0); Mean Platelet Vol. 9.4 fl (6.2-12.0); Monocyte# 0.64 X10^3/uL; Monocyte% 8.7 % (0-10); NRBC Flagged by Analyzer 0 % (0-5); Neutrophil # 4.48 X10^3/uL (2.7-7.7); Neutrophil % 60.7 % (47-70); Platelet Count 211 K/mm3 (150-450); RBC Distribution Width CV 12.6 % (11.6-14.6); Red Blood Count 2.95 M/mm3 (4.2-5.4); White Blood Count 7.4 K/mm3 (4.4-11.0)
[2024-01-19 08:22] LABS: AST(SGOT) 10 U/L (15-37); Alanine Aminotransfer ALT/SGPT 14 U/L (13-56); Albumin, Serum 2.8 g/dL (3.2-5.0); Alkaline Phosphatase 80 U/L (45-117); Anion Gap 3 (5-15); BUN 9 mg/dL (7-18); BUN/Creat Ratio 17.2 RATIO (10-20); Bilirubin, Direct 0.05 mg/dL (0.00-0.30); Calcium,Total 9.2 mg/dL (8.5-10.1); Chloride 103 mmol/L (98-107); Creatinine, Serum 0.52 mg/dL (0.55-1.02); EST Glomerular Filtration Rate 119 mL/min (>60); Est Glom Filt Rate - Afr Amer 144 mL/min (>60); Globulin 3.8 g/dL (2.2-4.2); Glucose 104 mg/dL (74-106); Potassium 3.9 mmol/L (3.5-5.1); Protein, Total 6.6 g/dL (6.4-8.2); Sodium Level 139 mmol/L (136-145)
== END ==
LOC: OLS.WHLEAS 05:00
PROVIDERS: PCP Internal Medicine; Visit Provider Internal Medicine
DX: I10 Essential (primary) hypertension (principal); E03.9 Hypothyroidism, unspecified
CPT/HCPCS: 36415; 80048; 80076; 84443; 85025

== ENCOUNTER → 2024-04-07 05:00 | Outpatient (REF) | payer MEDICARE, SELFPAY ==
[2024-04-07 09:40] LABS: Absolute Lymphocyte Count 1.52 X10^3/uL (0.83-4.51); Absolute Neutrophil Count 2.6 X10^3/uL (2.0-7.7); Basophil# 0.07 X10^3/uL; Basophil% 1.3 % (0-1); Eosinophil# 0.81 X10^3/uL; Eosinophils% 14.5 % (0-5); Hematocrit 28.3 % (37-47); Hemoglobin 8.6 g/dL (12.0-15.0); Lymphocyte # 1.52 X10^3/ul (0.83-4.51); Lymphocyte % 27.2 % (19-41); Mean Corp Hgb Conc 30.4 g/dL (32-36); Mean Corpuscular Hgb 30.7 pg (27.0-32.0); Mean Corpuscular Volume 101.1 fL (81-99); Mean Platelet Vol. 9.7 fl (6.2-12.0); Monocyte# 0.58 X10^3/uL; Monocyte% 10.4 % (0-10); NRBC Flagged by Analyzer 0 % (0-5); Neutrophil % 46.4 % (47-70); Platelet Count 199 K/mm3 (150-450); RBC Distribution Width CV 12.6 % (11.6-14.6); RBC Distribution Width SD 47.1 fl (35.1-43.9); White Blood Count 5.6 K/mm3 (4.4-11.0)
[2024-04-07 21:26] LABS: Vitamin B12 407 pg/mL (211-911)
== END ==
LOC: OLS.WHLEAS 05:00
PROVIDERS: PCP Internal Medicine; Visit Provider Internal Medicine
DX: I10 Essential (primary) hypertension (principal); J84.112 Idiopathic pulmonary fibrosis; J96.11 Chronic respiratory failure with hypoxia; M62.561 Muscle wasting and atrophy, not elsewhere classified, right lower leg; M62.562 Muscle wasting and atrophy, not elsewhere classified, left lower leg
CPT/HCPCS: 36415; 82607; 82746; 85025

== ENCOUNTER → 2024-04-19 05:00 | Outpatient (REF) | payer MEDICARE, SELFPAY ==
[2024-04-19 08:26] LABS: AST(SGOT) 19 U/L (15-37); Alanine Aminotransfer ALT/SGPT 12 U/L (13-56); Albumin, Serum 2.9 g/dL (3.2-5.0); Alkaline Phosphatase 78 U/L (45-117); Bilirubin, Direct 0.09 mg/dL (0.00-0.30); Protein, Total 6.9 g/dL (6.4-8.2)
== END ==
LOC: OLS.WHLEAS 05:00
PROVIDERS: PCP Internal Medicine; Visit Provider Internal Medicine
DX: J84.112 Idiopathic pulmonary fibrosis (principal); J96.11 Chronic respiratory failure with hypoxia; M62.561 Muscle wasting and atrophy, not elsewhere classified, right lower leg; M62.562 Muscle wasting and atrophy, not elsewhere classified, left lower leg; E03.9 Hypothyroidism, unspecified
CPT/HCPCS: 36415; 80076; 84443

== ENCOUNTER → 2024-04-23 12:00 | Outpatient (REF) | payer MEDICARE, MEDICAID, SELFPAY | LOC: OLS.WHLEAS 12:00 | PROVIDERS: PCP Internal Medicine; Visit Provider Internal Medicine | DX: J84.112 Idiopathic pulmonary fibrosis (principal); J96.11 Chronic respiratory failure with hypoxia; M62.561 Muscle wasting and atrophy, not elsewhere classified, right lower leg; M62.562 Muscle wasting and atrophy, not elsewhere classified, left lower leg; J18.9 Pneumonia, unspecified organism | CPT/HCPCS: 87449 ==

== ENCOUNTER → 2024-05-17 | Outpatient (REF) | payer MEDICARE, MEDICAID, SELFPAY ==
[2024-05-17 08:11] LABS: Absolute Lymphocyte Count 1.58 X10^3/uL (0.83-4.51); Absolute Neutrophil Count 3.3 X10^3/uL (2.0-7.7); Basophil# 0.05 X10^3/uL; Basophil% 0.8 % (0-1); Eosinophil# 0.71 X10^3/uL; Eosinophils% 11.4 % (0-5); Hematocrit 29.3 % (37-47); Hemoglobin 9.1 g/dL (12.0-15.0); Lymphocyte # 1.58 X10^3/ul (0.83-4.51); Lymphocyte % 25.3 % (19-41); Mean Corp Hgb Conc 31.1 g/dL (32-36); Mean Corpuscular Hgb 30.5 pg (27.0-32.0); Mean Corpuscular Volume 98.3 fL (81-99); Mean Platelet Vol. 9.2 fl (6.2-12.0); Monocyte% 9.6 % (0-10); NRBC Flagged by Analyzer 0 % (0-5); Neutrophil % 52.7 % (47-70); Platelet Count 215 K/mm3 (150-450); RBC Distribution Width CV 13.2 % (11.6-14.6); RBC Distribution Width SD 46.8 fl (35.1-43.9); Red Blood Count 2.98 M/mm3 (4.2-5.4); White Blood Count 6.3 K/mm3 (4.4-11.0)
[2024-05-17 08:25] LABS: Anion Gap 8 (5-15); BUN 9 mg/dL (4-19); BUN/Creat Ratio 16.6 RATIO (10-20); Calcium,Total 9.3 mg/dL (7.6-11.0); Carbon Dioxide 30.7 mmol/L (21.0-32.0); Chloride 99 mmol/L (98-108); Creatinine, Serum 0.56 mg/dL (0.70-1.20); EST Glomerular Filtration Rate 91 (>60); Glucose 96 mg/dL (70-99); Potassium 4.2 mmol/L (3.3-5.1); Sodium Level 138 mmol/L (133-145)
== END ==
LOC: OLS.WHLEAS 05:00
PROVIDERS: PCP Internal Medicine; Visit Provider Nurse Practitioner Adult Health
DX: I10 Essential (primary) hypertension (principal)
CPT/HCPCS: 36415; 80048; 85025

== ENCOUNTER → 2024-07-19 | Outpatient (REF) | payer MEDICARE, MEDICAID, SELFPAY ==
[2024-07-19 09:21] LABS: AST(SGOT) 18 U/L (<=31); Alanine Aminotransfer ALT/SGPT < 5 U/L (<=34); Albumin, Serum 3.3 g/dL (3.4-4.8); Alkaline Phosphatase 69 U/L (35-104); Bilirubin, Direct 0.08 mg/dL (0.00-0.30); Globulin 3.5 g/dL (2.2-4.2); Protein, Total 6.8 g/dL (5.9-8.4); Total Bilirubin 0.18 mg/dL (0.00-1.30)
== END ==
LOC: OLS.WHLEAS 05:00
PROVIDERS: PCP Internal Medicine; Visit Provider Internal Medicine
DX: E03.9 Hypothyroidism, unspecified (principal); J84.112 Idiopathic pulmonary fibrosis; J96.11 Chronic respiratory failure with hypoxia; M62.561 Muscle wasting and atrophy, not elsewhere classified, right lower leg; M62.562 Muscle wasting and atrophy, not elsewhere classified, left lower leg
CPT/HCPCS: 36415; 80076; 84443

== ENCOUNTER → 2024-09-13 | Outpatient (REF) | payer MEDICARE, MEDICAID, SELFPAY ==
--- OUTSIDE RECORDS SUMMARY | 2024-09-13 06:47 | XMS RPT_ITS | CCD ---
Author Organization [facility] Care Team Providers Care Sidehand Name Role Phone [place] Сергей BAILEY Primary Care Provider [phone] UNKNOWN, UNKNOWN Primary Care Unavailable Clutter, Tommy Referring Unavailable Cltom, Tommy Attending Unavailable Unknown, Unknown Unavailable Unavailable Unavailable Unavailable Сергей Espinoza MD Primary Care Provider [phone] OLGA, СЕРГЕЙ A Referring Unavailable OLGA, СЕРГЕЙ A Primary Care Unavailable AL WOODS Referring Unavailable OLGA, СЕРГЕЙ A Primary Care Unavailable NERIS, NARIMAN A Referring Unavailable OLGA, СЕРГЕЙ A Primary Care Unavailable OLGA, СЕРГЕЙ A Primary Care Unavailable RICA AMADO Referring Unavailable OLGA, СЕРГЕЙ A Primary Care Unavailable OLGA, СЕРГЕЙ A Referring Unavailable OLGA, СЕРГЕЙ A Primary Care Unavailable IGOR JOHNSON Attending Unavailab le OLGA, СЕРГЕЙ A Primary Care Unavailable NERIS, NARIMAN A Referring Unavailable OLGA, СЕРГЕЙ A Primary Care Unavailable NERIS, NARIMAN A Referring Unavailable OLGA, СЕРГЕЙ A Primary Care Unavailable NERIS, NARIMAN A Referring Unavailable Olga Сергей BAILEY Primary Care Provider [phone] Brayden Friend MD Unavailable OLGA, СЕРГЕЙ A Referring Unavailable OLGA, СЕРГЕЙ A Primary Care Unavailable OLGA, СЕРГЕЙ A Attending Unavailable OLGA, СЕРГЕЙ A Primary Care Unavailable OLGA, СЕРГЕЙ A Referring Unavailable OLGA, СЕРГЕЙ A Primary Care Unavailable NERIS, NARIMAN A Referring Unavailable OLGA, СЕРГЕЙ A Primary Care Unavailable NERIS, NARIMAN A Referring Unavailable OLGA, СЕРГЕЙ A Primary Care Unavailable NERIS, NARIMAN A Referring Unavailable OLGA, СЕРГЕЙ A Primary Care Unavailable NERIS, NARIMAN A Referring Unavailable OLGA, СЕРГЕЙ A Primary Care Unavailable NERIS, NARIMAN A Referring Unavailable OLGA, СЕРГЕЙ A Primary Care Unavailable MOUNA VUONG Attending Unavailable OLGA, СЕРГЕЙ A Primary Care Unavailable OLGA, СЕРГЕЙ A Attending Unavailable OLGA, СЕРГЕЙ A Primary Care Unavailable OLGA, СЕРГЕЙ A Referring Unavailable OLGA, СЕРГЕЙ A Primary Care Unavailable MOUNA BAEZ Attending Unavailable MOUNA BAEZ Referring Unavailable OLGA, СЕРГЕЙ A Primary Care Unavailable Olga , Dr. Rushing Primary Care Provider Gustavo GABRIEL-C, Stacie Attending Provider [phone] Shi BAILEY, Dr. Manzo Attending Provider Anais Osullivan MD Attending Provider Unavaila ble Gustavo SUPERVISOR LIME-C, Stacie Attending Provider Olga, Сергей Primary Care Unavailable Jose Raul Page Attending Unavailabl e [place], Сергей Primary Care Unavailable [place] SUPERVISOR LIME Stacie Attending Unavailable [place], Сергей Primary Care Unavailable [place] SUPERVISOR LIMEStacie Attending Unavailable [place], Сергей Primary Care Unavailable [place] DANNY Stacie Attending Unavailable Oleghe DANNY Efewongbe Attending Unavailabl e [place], Срегей Primary Care Unavailable Oleghe OLS, Efewongbe Attending Unavailabl e Olga, Сергей Primary Care Unavailable [place], Сергей Primary Care Unavailable Tickton OLS Stacie Attending Unavailable [place], Сергей Primary Care Unavailable Oleghe OLS, Efewongbe Attending Unavailabl e Joi Drake Attending Unavailable Olga, Сергей Primary Care Unavailable Olga, Сергей Primary Care Unavailable Oleghe, Efewongbe Attending Unavailable Pear[place], Сергей Primary Care Unavailable [place] SUPERVISOR LIME, Stacie Attending Unavailable Olga, Сергей Primary Care Unavailable Oleghe, Efewongbe Attending Unavailable [place] SUPERVISOR LIME, Stacie Attending Unavailable Olga, Сергей Primary Care Unavailable [place], Сергей Primary Care Unavailable Oleghe, Efewongbe Attending Unavailable Oleghe OLS, Efewongbe Attending Unavailabl e [place], Сергей Primary Care Unavailable Oleghe OLS, Efewongbe Attending Unavailabl e Olga, Сергей Primary Care Unavailable [place] SUPERVISOR LIME, Stacie Attending Unavailable Olga, Сергей Primary Care Unavailable Olga, Сергей Primary Care Unavailable [place] SUPERVISOR LIME, Stacie Attending Unavailable Olga, Сергей Referring Unavailable Sarthak Wesley Attending Unavailable Olga, Сергей Primary Care Unavailable Olga, Сергей Primary Care Unavailable Oleghe, Efewongbe Attending Unavailable [place], Сергей Primary Care Unavailable Oleghe OLS, Efewongbe Attending Unavailabl e T[place] SUPERVISOR LIME, Stacie Attending Unavailable [place], Сергей Primary Care Unavailable Oleghe OLS, Efewongbe Attending Unavailabl e [place], Сергей Primary Care Unavailable Olga, Сергей Primary Care Unavailable Gustavo SUPERVISOR LIME, Stacie Attending Unavailable [place], Сергей Primary Care Unavailable Joi Drake Attending Unavailable Olga, Сергей Primary Care Unavailable [place] SUPERVISOR LIME, Stacie Attending Unavailable Olga, Сергей Primary Care Unavailable Oleghe, Efewongbe Attending Unavailable Oleghe OLS, Efewongbe Attending Unavailabl e Olga, Сергей Primary Care Unavailable [place], Сергей Primary Care Unavailable Brayden Friend Referring Unavailable Brayden Friend Attending Unavailable Dr. Сергей Espinoza MD Primary Care Provider Gustavo SUPERVISOR LIME-CStacie Attending Provider [phone] Allergies Allergy Classification Reported Allergen(s) Allergy Type Date of Onset Reaction(s) Facility Angiotensin Converting Enzyme (JOYCE) Inhibitors (1 source) Lisinopril Drug Allergy 1 GI Upset [facility] Aspirin (1 source) Aspirin Drug Allergy 1 [facility] Doxycycline (1 source) Doxycycline Drug Allergy 3 GI Upset [facility] Work Phone: montelukast (1 source) montelukast Drug Allergy 8 Rash [facility] Work Phone: NSAIDs (1 source) Ibuprofen Drug Allergy 1 [facility] Penicillins (antibiotic) (1 source) Amoxicillin Drug Allergy 3 Intolerance [facility] rofecoxib (1 source) rofecoxib Drug Allergy 3 Itching [facility] Serotonin Reuptake Inhibitors (SSRIs) (1 source) Sertraline Drug Allergy 3 Diarrhea [facility] Sulfonamides (antibiotic) (1 source) Sulfonamides (Antibiotic) Drug Allergy 1 [facility] (20 sources) Aspirin; Translations: [Aspirin TABS] Drug Allergy 1 Tachycardia, PALPITATIONS [facility] (20 sources) Ibuprofen; Translations: [IBUPROFEN] Drug Allergy 1 Swelling [facility] (20 sources) Lisinopril; Translations: [LISINOPRIL] Drug Allergy 1 GI Upset [facility] (20 sources) montelukast; Translations: [MONTELUKAST SODIUM] Drug Allergy 8 Rash [facility] Work Phone: (20 sources) rofecoxib; Translations: [ROFECOXIB] Drug Allergy 3 Itching [facility] (20 sources) Seasonal allergy; Translations: [SEASONAL ALLERGIES] Allergy to substance 1 Other: See Comments, Intolerance [facility] (20 sources) Sulfonamides (Antibiotic); Translations: [SULFA (SULFONAMIDE ANTIBIOTICS)] Propensity to adverse reactions 1 [facility] (20 sources) Doxycycline; Translations: [DOXYCYCLINE] Drug Allergy 3 GI Upset [facility] Work Phone: (20 sources) Amoxicillin; Translations: [AMOXICILLIN] Drug Allergy 3 Other: See Comments, Intolerance [facility] (20 sources) Sertraline; Translations: [SERTRALINE] Drug Allergy 3 Diarrhea [facility] (2 sources) montelukast Drug Allergy 3 Rash [facility] (2 sources) Sulfonamides (Antibiotic) Allergy to substance 3 Rash [facility] (1 source) Amoxicillin Drug Allergy 3 [facility] (1 source) Aspirin Drug Allergy 3 [facility] (1 source) Doxycycline Drug Allergy 3 [facility] (1 source) Ibuprofen Drug Allergy 3 [facility] (1 source) Lisinopril Drug Allergy 3 [facility] (1 source) montelukast Drug Allergy 3 [facility] (1 source) rofecoxib Drug Allergy 3 [facility] (1 source) Sertraline Drug Allergy 3 [facility] (1 source) Sulfonamides (Antibiotic) Drug allergy (disorder) 3 [facility] Medications Current Medications Medication Drug Class(es) Dates Sig (Normalized) Sig (Original) Acetaminophen / Caffeine (20 sources) Central Nervous System Stimulant, Methylxanthine acetaminophen/caff eine (EXCEDRIN ASPIRIN FREE ORAL) Take 2 tablets by mouth as needed. Active acetaminophen/ca ffeine (EXCEDRIN ASPIRIN FREE ORAL) Take 2 tablets by mouth as needed. 0 Active Comment on above: Take 2 tablets by mo ut as needed. ALPRAZolam 1 mg oral tablet (20 sources) Benzodiazepine Start: take 1 tablet by mouth three times daily Alprazolam 1 mg tablet Active 1 mg PO THREE TIMES A DAY 90 August 01, 2024 12:00am August 30, 2024 12:00am Start: 05-02-2024 End: 07-27-2024 take 1 tablet by mouth three times daily Alprazolam 1 mg tablet Discontinued 1 mg PO THREE TIMES A DAY 90 June 27, 2024 3:39pm July 26, 2024 12:00am July 27, 2024 12:06am Start: 08-25-2022 End: 04-30-2024 take 1 tablet by mouth three times daily Alprazolam 1 mg tablet Discontinued 1 mg PO THREE TIMES A DAY March 31, 2024 4:28pm April 29, 2024 1:00am April 30, 2024 1:23am Start: 12-31-2021 End: 08-23-2022 take 1 tablet by mouth every eight hours as needed for anxiety and anxiety ALPRAZolam (XANAX) 1 mg tablet Indications: Anxiety Take 1 tablet by mouth three times daily as needed for sedation or anxiety for up to 30 days. 90 tablet 04/29/2022 05/26/2022 Discontinued Start: 12-04-2021 End: 11-30-2021 take 1 tablet by mouth every eight hours as needed for anxiety and anxiety ALPRAZolam (XANAX) 1 mg tablet Indications: Anxiety Take 1 tablet by mouth three times daily as needed for sedation or anxiety for up to 30 days. Do not start before December 04, 2021. 90 tablet 0 12/04/2021 11/30/2021 Discontinued Start: 11-14-2021 End: 01-03-2022 take 1 tablet by mouth every eight hours as needed for anxiety and anxiety ALPRAZolam (XANAX) 1 mg tablet Indications: Anxiety Take 1 tablet by mouth three times daily as needed for sedation or anxiety for up to 30 days. 90 tablet 11/30/2021 12/31/2021 Discontinued Start: 05-09-2021 End: 12-05-2021 take 1 tablet by mouth every twelve hours as needed for anxiety and anxiety ALPRAZolam (XANAX) 1 mg tablet Indications: Anxiety Take 1 tablet by mouth twice daily as needed for sedation or anxiety for up to 30 days. 60 tablet 0 11/05/2021 11/14/2021 Discontinued Xanax 1 MG Oral Tablet Quantity: 0 Refills: 0 Ordered: 09-Dec-2015 DO Active Comment on above: Take 1 tablet by wanda th twice daily as needed for sedation or anxiety for up to 30 days. Take 1 tablet by wanda th twice daily as needed for sedation or anxiety for up to 30 days. Do not start before October 05, 2021. Take 1 tablet by wanda th three times daily as needed for sedation or anxiety for up to 30 days. Take 1 tablet by wanda th three times daily as needed for sedation or anxiety for up to 30 days. Do not start before December 04, 2021. Take 1 tablet by wanda th three times daily as needed for sedation or anxiety for up to 30 days. Do not start before February 28, 2022. Take 1 tablet by wanda th three times daily as needed for sedation or anxiety for up to 30 days. Do not start before May 28, 2022. Take 1 tablet by wanda th three times daily as needed for sedation or anxiety for up to 30 days. Do not start before June 27, 2022. Take 1 tablet by wanda three times daily as needed for sedation or anxiety for up to 30 days. Do not start before September 24, 2022. Take 1 tablet by wanda three times daily as needed for sedation or anxiety for up to 30 days. Do not start before November 20, 2022. Take 1 tablet by wanda three times a day as needed for sedation or anxiety for up to 30 days. Do not start before December 20, 2022. Take 1 tablet by wanda three times a day as needed for sedation or anxiety for up to 30 days. Take 1 tablet by wanda three times a day as needed for sedation or anxiety for up to 30 days. Do not start before February 16, 2023. Take 1 tablet by wanda three times a day as needed for sedation or anxiety for up to 30 days. Do not start before April 16, 2023. azithromycin 250 mg oral tablet (10 sources) Macrolide Antimicrobial Start: 05-10-19 End: 05-15-19 take 2 tablets by mouth once daily, then take 1 tablet by mouth once daily azithromycin (ZITHROMAX) 250 mg tablet Take 2 tablets by mouth once daily for 1 day, THEN 1 tablet once daily for 4 days. 6 tablet 0 05/10/2023 05/15/2023 Active Start: 02-17-2023 End: 02-21-2023 take 2 tablets by mouth once daily, then take 1 tablet by mouth once daily azithromycin (ZITHROMAX) 250 mg tablet Take 2 tablets by mouth once daily for 1 day, THEN 1 tablet once daily for 4 days. 6 tablet 0 02/17/2023 02/21/2023 Active Start: 11-28-2022 End: 12-02-2022 take 2 tablets by mouth once daily, then take 1 tablet by mouth once daily azithromycin (ZITHROMAX) 250 mg tablet Take 2 tablets by mouth once daily for 1 day, THEN 1 tablet once daily for 4 days. 6 tablet 0 11/28/2022 11/28/2022 Discontinued Comment on above: Take 2 tablets by mo [facility] once daily for 1 day, THEN 1 tablet once daily for 4 days. cloNIDine hydrochloride 0.1 mg oral tablet (20 sources) Central alpha-2 Adrenergic Agonist Start: 03-25-2023 cloNIDine HCl (CATAPRES) 0.1 mg tablet take 1 tablet twice daily 180 tablet 3 03/25/2023 Active Start: 01-14-2023 take 1 tablet by wanda th three times daily Clonidine Hcl 0.1 mg tablet Active 0.1 mg PO THREE TIMES A DAY January 21, 2023 1:00am Start: 08-22-2022 End: 01-14-2023 take 1 tablet by mouth twice daily cloNIDine HCl (CATAPRES) 0.1 mg tablet Take 1 tablet by mouth twice daily. 180 tablet 1 09/29/2022 01/14/2023 Discontinued Comment on above: Take 1 tablet by wanda th twice daily. Take 1 tablet by wanda th three times a day. take 1 tablet twice daily COMPOUNDED PRESCRIPTION (20 sources) Start: 08-23-2018 COMPOUNDED PRESCRIPTION Indications: Chronic respiratory failure with hypoxia (HCC) Please dispense an oxygen concentrator and a portable oxygen concentrator and all necessary accessories to be used at 2L/min NC with exertion. 1 Each 08/23/2018 Active Start: 08-23-2018 COMPOUNDED PRE SCRIPTION Indications: Chronic respiratory failure with hypoxia (HCC) Please dispense an oxygen concentrator and a portable oxygen concentrator and all necessary accessories to be used at 2L/min NC with exertion. 1 Each 0 08/23/2018 Active Comment on above: Please dispense an o xygen concentrator and a portable oxygen concentrator and all necessary accessories to be used at 2L/min NC with exertion. CPAP/BIPAP/OTHER (20 sources) Start: 12-11-2022 End: 04-27-2050 CPAP/BIPAP/OTHER Type .CPAPSettings into a note to see current settings/supplies/DME information. 1 Each 12/11/2022 04/27/2050 Active Start: 12-11-2022 End: 04-27-2050 CPAP/BIPAP/OTHER Type .CPAPS ettings into a note to see current settings/supplies/DME information. 1 Each 0 12/11/2022 04/27/2050 Active Comment on above: Type .CPAPSettings i nto a note to see current settings/supplies/DME information. erythromycin 0.005 mg/mg ophthalmic ointment (20 sources) Macrolide, Macrolide Antimicrobial erythromycin (ROMYCIN) 5 mg/gram (0.5 %) ophthalmic ointment daily at bedtime. Active Comment on above: daily at bedtime. fexofenadine hydrochloride 180 mg oral tablet (20 sources) Histamine-1 Receptor Antagonist fexofenadine (MARIA C) 180 mg tablet Take 180 mg by mouth as needed (Patient choice). Active Comment on above: Take 180 mg by mouth once daily. Take 180 mg by mouth as needed (Patient choice). 120 actuat fluticasone propionate 0.11 mg/actuat metered dose inhaler (20 sources) Corticosteroid Start: take 1 spray(s) nasal route once daily fluticasone (FLONASE) 50 mcg/actuation nasal spray Use 1 [place] in each nostril once daily. 48 g 3 07/09/2023 Active Start: 05-12-2023 End: 08-10-2023 take 1 puff(s) by inhalation once daily fluticasone furoate (ARNUITY ELLIPTA) 100 mcg/actuation inhaler Inhale 1 Puff as instructed once daily. 3 Each 4 05/12/2023 07/14/2023 Discontinued Start: 05-12-2023 End: 07-09-2023 take 1 spray(s) nasal route once daily fluticasone (FLONASE) 50 mcg/actuation nasal spray Use 1 [place] in each nostril once daily. 1 Each 2 05/12/2023 07/09/2023 Discontinued Start: 05-12-2023 End: 08-10-2023 take 1 puff(s) by inhalation once daily fluticasone furoate (ARNUITY ELLIPTA) 100 mcg/actuation inhaler Inhale 1 Puff as instructed once daily. 3 Each 4 05/12/2023 08/10/2023 Active Start: 03-30-2023 End: 05-08-2023 take 1 puff(s) by inhalation once daily fluticasone furoate (ARNUITY ELLIPTA) 100 mcg/actuation inhaler Inhale 1 Puff as instructed once daily. 3 Each 4 03/30/2023 05/08/2023 Discontinued Start: 03-30-2023 End: 06-28-2023 take 1 puff(s) by inhalation once daily fluticasone furoate (ARNUITY ELLIPTA) 100 mcg/actuation inhaler Inhale 1 Puff as instructed once daily. 3 Each 4 03/30/2023 06/28/2023 Active Start: 03-24-2023 End: 08-01-2024 take 1 puff(s) by mouth twice daily fluticasone (FLOVENT) 110 mcg/actuation inhaler Inhale 1 Puff as instructed two times a day. Shake well before use. Rinse mouth after use. 1 Each 07/14/2023 08/01/2024 Active Start: 01-21-2023 Fluticasone Pr opionate 50 mcg/actuation spray,suspension Active 1 NMA INTRANASAL Q12H January 21, 2023 1:00am Start: 01-19-2023 End: 04-23-2023 take 1 spray(s) nasal route twice daily fluticasone (FLONASE) 50 mcg/actuation nasal spray Use 1 [place] in each nostril two times a day. 1 Each 01/19/2023 04/23/2023 Discontinued Start: 05-05-2022 End: 03-07-2023 take 1 puff(s) by mouth twice daily fluticasone (FLOVENT HFA) 110 mcg/actuation inhaler Inhale 1 Puff as instructed twice daily. Shake well before use. Rinse mouth after use. 3 Each 1 05/05/2022 09/08/2022 Discontinued Start: 03-31-2022 End: 03-31-2023 take 1 puff(s) by mouth twice daily fluticasone (FLOVENT HFA) 220 mcg/actuation inhaler Inhale 1 Puff as instructed twice daily. Shake well before use. Rinse mouth after use. 3 Each 4 03/31/2022 05/05/2022 Discontinued Start: 01-17-2021 End: 03-31-2022 take 2 puff(s) by mouth twice daily fluticasone (FLOVENT HFA) 110 mcg/actuation inhaler Inhale 2 Puffs as instructed twice daily. Inhale by Mouth 1 Each 12/09/2021 03/31/2022 Discontinued Start: 04-04-2020 End: 09-30-2021 take 1 spray(s) nasal route once daily at bedtime fluticasone (FLONASE) 50 mcg/actuation nasal spray Use 1 [place] in each nostril daily at bedtime. 3 Each 1 07/02/2021 09/30/2021 Active Start: 05-30-2015 take 1 puff(s) by in halation twice daily Flovent HFA 110 MCG/ACT Inhalation Aerosol INHALE 1 PUFF TWICE DAILY. Quantity: 1 Refills: 1 Ordered: 12-Jun-2016 Zurdo Puentes MD Start : 30-May-2015 Active End: 05-12-2023 take 1 spray(s) nasal route once daily as needed fluticasone propionate (FLONASE NASAL) Use in the nose as needed (Pt uses 1 spray each nostril once a day as needed.). 0 05/12/2023 Discontinued take 1 spray(s) nasa l route once daily as needed fluticasone propionate (FLONASE NASAL) Use in the nose as needed (Pt uses 1 spray each nostril once a day as needed.). 0 Active Comment on above: Use 1 [place] in each nostril daily at bedtime. Inhale 2 Puffs as in structed twice daily. Inhale by Mouth Inhale 1 Puff as ins tructed twice daily. Shake well before use. Rinse mouth after use. Use in the nose as n eeded (Pt uses 1 spray each nostril once a day as needed.). Use 1 [place] in each nostril two times a day. Inhale 1 Puff as ins tructed two times a day. Shake well before use. Rinse mouth after use. Inhale 1 Puff as ins tructed once daily. Use 1 [place] in each nostril once daily. Fluticasone Propionate (Flovent Hfa) 110 mcg/actuation HFA aerosol inhaler (2 sources) Start: 3 Fluticasone Propionate (Flovent Hfa) 110 mcg/actuation HFA aerosol inhaler Active 1 NMA INHALATION Q12H January 21, 2023 1:00am gabapentin 100 mg oral capsule (20 sources) Anti-epileptic Agent Start: 4 take 1 capsule by mouth four times daily as needed gabapentin (NEURONTIN) 100 mg capsule TAKE 1 CAPSULE BY MOUTH 4 TIMES DAILY NEEDED 06/21/2023 Active Start: 09-25-2022 End: 03-24-2023 take 2 capsules by mouth three times daily gabapentin (NEURONTIN) 100 mg capsule Take 2 capsules by mouth three times daily for 180 days. 180 capsule 5 09/25/2022 10/29/2022 Discontinued Start: 04-24-2022 End: 03-04-2023 take 1 capsule by mouth three times daily gabapentin (NEURONTIN) 100 mg capsule Take 1 capsule by mouth three times daily for 30 days. 90 capsule 04/24/2022 08/22/2022 Discontinued Comment on above: Take 1 capsule by mo [facility] three times daily for 30 days. Take 1 capsule by mo [facility] three times daily for 180 days. Take 2 capsules by [facility] three times daily for 180 days. Inhalational Spacing Device (AEROCHAMBER) Spcr (20 sources) Start: 3 Inhalational Spacing Device (AEROCHAMBER) Spcr Indications: Asthma exacerbation , Bronchitis 1 Device as directed. 1 Inhaler 0 06/08/2012 Active Comment on above: 1 Device as directed . 200 actuat levalbuterol 0.045 mg/actuat metered dose inhaler (20 sources) beta2-Adrenergic Agonist Start: 3 End: 3 take 1-2 puff(s) by inhalation every four hours as needed for wheezing levalbuterol tartrate HFA 45 mcg/actuation inhaler INHALE 1-2 PUFFS INSTRUCTED EVERY 4 HOURS NEEDED FOR WHEEZING/SHORTNESS OF BREATH. 45 g 3 08/18/2022 Active Start: 05-05-2022 End: 11-01-2022 take 1-2 puff(s) by inhalation every four hours as needed for wheezing levalbuterol tartrate HFA (XOPENEX HFA) 45 mcg/actuation inhaler Inhale 1-2 Puffs as instructed every 4 hours as needed for wheezing/shortness of breath. 3 Each 1 05/05/2022 08/18/2022 Discontinued Comment on above: Inhale 1-2 Puffs as instructed every 4 hours as needed for wheezing/shortness of breath. levothyroxine sodium 0.075 mg oral tablet (20 sources) l-Thyroxine Start: End: take 0.5 tablet by mouth once daily levothyroxine (SYNTHROID) 75 mcg tablet Take 0.5 tablets by mouth once daily. 45 tablet 4 07/09/2023 Active Start: 07-19-2020 End: 08-02-2023 take 1 tablet by mouth once daily Levothyroxine 25 mcg tablet Active 25 ug PO DAILY January 21, 2023 1:00am Levothyroxine So dium 25 MCG Oral Tablet Quantity: 0 Refills: 0 Ordered: 09-Dec-2015 DO Active Comment on above: Take 1 tablet by wanda th once daily. Take 0.5 tablets by mouth once daily. meloxicam 7.5 mg oral tablet (11 sources) Nonsteroidal Anti-inflammatory Drug Start: 023 End: 023 take 1 tablet by mouth once daily meloxicam (MOBIC) 7.5 mg tablet Indications: Primary osteoarthritis of right hip Take 1 tablet by mouth once daily. 30 tablet 0 06/11/2022 07/11/2022 Active Comment on above: Take 1 tablet by wanda th once daily. Take 1 tablet by wanda th once daily nortriptyline 75 mg oral capsule (20 sources) Tricyclic Antidepressant Start: 021 End: 024 take 1 capsule by mouth once daily at bedtime nortriptyline (PAMELOR) 75 mg capsule Take 1 capsule by mouth daily at bedtime. 90 capsule 3 07/17/2023 Active Nortriptyline HC l - 50 MG Oral Capsule Quantity: 0 Refills: 0 Ordered: 09-Dec-2015 DO Active Comment on above: Take 1 capsule by mo ut daily at bedtime. TAKE 1 CAPSULE AT BE DTIME OXYGEN, HOME THERAPY, (20 sources) Start: 0 OXYGEN, HOME THERAPY, Indications: IPF (idiopathic pulmonary fibrosis) (HCC) , Chronic respiratory failure with hypoxia (HCC) Please dispense an oxygen concentrator, a portable oxygen concentrator and all necessary accessories to be used at 2L/min NC with exertion and with sleep. 1 Each 08/23/2019 Active Comment on above: Please dispense an o xygen concentrator, a portable oxygen concentrator and all necessary accessories to be used at 2L/min NC with exertion and with sleep. pirfenidone 801 mg oral tablet (20 sources) Pyridone Start: 4 End: 4 take 1 tablet by mouth three times daily pirfenidone (ESBRIET) 801 mg tablet Indications: Idiopathic pulmonary fibrosis (HCC) Take 1 tablet by mouth three times a day. 90 tablet 11 09/02/2023 Active Start: 01-21-2023 take 1 capsule by mo [facility] three times daily Pirfenidone (Pirfenidone 267 Mg Capsule) 267 mg capsule Active 267 mg PO THREE TIMES A DAY January 21, 2023 1:00am Start: 04-14-2022 End: 03-18-2023 take 1 tablet by mouth three times daily pirfenidone (ESBRIET) 801 mg tablet Take 1 tablet by mouth three times daily. 90 tablet 5 04/14/2022 09/26/2022 Discontinued Start: 03-05-2021 End: 04-14-2022 take 3 capsules by mouth three times daily at mealtime pirfenidone (ESBRIET) 267 mg capsule Indications: Idiopathic pulmonary fibrosis (HCC) TAKE 3 CAPSULES BY MOUTH THREE TIMES A DAY WITH MEALS 270 capsule 3 12/02/2021 03/31/2022 Discontinued End: 12-02-2021 take 1 tablet by mouth three times daily pirfenidone (ESBRIET) 267 mg tablet Take 267 mg by mouth three times daily. 0 12/02/2021 Discontinued Comment on above: Take 267 mg by mouth three times daily. TAKE 3 CAPSULES BY [facility] THREE TIMES A DAY WITH MEALS Take 1 tablet by wanda three times daily. TAKE 1 TABLET BY WANDA 3 TIMES A DAY Take 1 tablet by wanda three times a day. pravastatin sodium 40 mg oral tablet (20 sources) HMG-CoA Reductase Inhibitor Start: End: 024 pravastatin (PRAVACHOL) 40 mg tablet take 1 tablet at bedtime 90 tablet 3 06/24/2023 Active Comment on above: Take 1 tablet by wanda daily at bedtime. promethazine hydrochloride 12.5 mg oral tablet (20 sources) Phenothiazine Start: take 1 tablet by mouth every six hours as needed for headache promethazine (PHENERGAN) 12.5 mg tablet Indications: Other migraine without status migrainosus, not intractable Take 1 tablet by mouth every 6 hours as needed (Headache). 10 tablet 10/03/2019 Active Comment on above: Take 1 tablet by wanda every 6 hours as needed (Headache). SUMAtriptan 100 mg oral tablet (20 sources) Serotonin-1b and Serotonin-1d Receptor Agonist Start: 020 End: take 1 tablet by mouth every two hours as needed for headache SUMAtriptan (IMITREX) 100 mg tablet Indications: Other migraine without status migrainosus, not intractable Take 1 tablet (100 mg) by mouth as needed for migraine headache (see administration instructions). at onset of headache.May repeat after 2 hours. 9 tablet 1 02/06/2023 Active Comment on above: Take 1 tablet by wanda th as needed for Migraine Headache (see administration instructions). at onset of headache.May repeat after 2 hours. Take 1 tablet (100 m g) by mouth as needed for migraine headache (see administration instructions). at onset of headache.May repeat after 2 hours. triamcinolone acetonide 5 mg/ml topical cream (20 sources) Corticosteroid Start: End: triamcinolone acetonide (KENALOG) 0.5 % cream Apply to affected area three times a day. 15 g 1 07/14/2023 Active Start: 06-03-2021 End: 05-08-2023 triamcinolone acetonide (DUNG ALOG) 0.5 % cream Apply to affected area three times daily. 15 g 1 10/11/2021 02/14/2022 Discontinued Comment on above: Apply to affected ar ea three times daily. Apply to affected ar ea three times a day. verapamil hydrochloride 240 mg extended release oral tablet (20 sources) Calcium Channel Scooby Start: 07-24-2021 End: 10-22-2021 take 1 tablet by mouth once daily at bedtime verapamil SR (CALAN SR, ISOPTIN SR) 180 mg CR tablet Take 1 tablet by mouth daily at bedtime. 90 tablet 3 07/24/2021 10/22/2021 Active Start: 06-06-2021 End: 11-24-2023 take 1 tablet by mouth once daily at bedtime verapamil SR (CALAN SR) 240 mg CR tablet Take 1 tablet by mouth daily at bedtime. 90 tablet 2 02/27/2023 Active Start: 07-19-2020 End: 06-06-2021 take 1 tablet by mouth once daily at bedtime verapamil SR (CALAN SR, ISOPTIN SR) 180 mg CR tablet Take 1 tablet by mouth daily at bedtime. 90 tablet 3 07/19/2020 06/06/2021 Discontinued take 1 capsule by mo [facility] every twenty-four hours Verapamil HCl ER 180 MG Oral Capsule Extended Release 24 Hour Quantity: 0 Refills: 0 Ordered: 09-Dec-2015 DO Active Comment on above: Take 1 tablet by wanda daily at bedtime. Completed/Discontinued Medications Medication Drug Class(es) Dates Sig (Normalized) Sig (Original) acyclovir 800 mg oral tablet (1 source) Herpesvirus Nucleoside Analog DNA Polymerase Inhibitor, Herpes Simplex Virus Nucleoside Analog DNA Polymerase Inhibitor, Herpes Zoster Virus Nucleoside Analog DNA Polymerase Inhibitor Start: 04-20-2022 Acyclovir 800 MG Oral Tablet TAKE 1 TABLET EVERY 4 HOURS, 5 TIMES DAILY FOR 7 TO 10 DAYS. Quantity: 50 Refills: 0 Ordered: 20-Apr-2022 Tommy Owusu PA-C Start : 20-Apr-2022 Active [id number] 200 actuat albuterol 0.09 mg/actuat metered dose inhaler (20 sources) beta2-Adrenergic Agonist Start: 11-19-2020 End: 07-09-2023 take 2 puff(s) by inhalation every four hours as needed VENTOLIN HFA 90 mcg/actuation inhaler Inhale 2 Puffs as instructed every 4 hours as needed. 18 g 11 12/09/2021 07/09/2023 Discontinued Start: 09-21-2020 End: 04-23-2023 albuterol (PROVENTIL) 2.5 mg /3 mL (0.083 %) nebulizer solution Indications: Mild persistent asthma without complication Use 3 mL via nebulizer every 4 hours as needed for wheezing/shortness of breath. Use via nebulizer three times daily as needed. OVER 5-15 MINUTES. FOR WHEEZING AND SHORTNESS OF BREATH. 360 mL 3 09/21/2020 04/23/2023 Discontinued Start: 05-30-2015 ProAir HFA 108 (90 Base) MCG/ACT AERS Quantity: 85 Refills: 0 Ordered: 08-Jun-2015 DO Start : 30-May-2015 Active Albuterol Sulfat e (2.5 MG/3ML) 0.083% Inhalation Nebulization Solution Quantity: 0 Refills: 0 Ordered: 09-Dec-2015 DO Active Comment on above: Use 3 mL via nebuliz er every 4 hours as needed for wheezing/shortness of breath. Use via nebulizer three times daily as needed. OVER 5-15 MINUTES. FOR WHEEZING AND SHORTNESS OF BREATH. Inhale 2 Puffs as in structed every 4 hours as needed. amoxicillin 125 mg chewable tablet (20 sources) Penicillin-class Antibacterial amoxicillin, chewable (AMOXIL) 125 mg chewable tablet Take by mouth three times daily. 0 Active Comment on above: Take by mouth three times daily. breath-actuated 120 actuat beclomethasone dipropionate 0.08 mg/actuat metered dose inhaler (20 sources) Corticosteroid Start: 2021 End: 2022 take 2 puff(s) by inhalation twice daily beclomethasone (QVAR REDIHALER) 80 mcg/actuation inhaler Inhale 2 Puffs as instructed twice daily. 1 Each 1 11/14/2021 03/31/2022 Discontinued Comment on above: Inhale 2 Puffs as in structed twice daily. benzonatate 100 mg oral capsule (1 source) Non-narcotic Antitussive Start: 2020 End: 2021 take 1 capsule by mouth three times daily as needed for cough benzonatate (TESSALON PERLES) 100 mg capsule Indications: cough Take 1 capsule by mouth three times daily as needed for cough for up to 30 doses. 20 capsule 0 12/26/2020 05/30/2021 Discontinued Comment on above: Take 1 capsule by [facility] three times daily as needed for cough for up to 30 doses. betamethasone 1 mg/ml topical cream (20 sources) Corticosteroid Start: 2022 End: 2023 Betamethasone Valerate 0.1 % cream Discontinued 1 NMA TOPICAL Q12H January 21, 2023 1:00am November 30, 2023 7:45pm Start: 01-19-2023 End: 04-23-2023 betamethasone valerate 0.1 % ointment Apply to affected area two times a day. 15 g 1 04/23/2023 Active Start: 05-21-2022 End: 01-19-2023 betamethasone valerate 0.1 % cream Apply 1 application to affected area twice daily. 45 g 1 05/21/2022 01/19/2023 Discontinued Comment on above: Apply 1 application to affected area twice daily. Apply to affected ar ea two times a day. betamethasone 3 mg/ml / betamethasone acetate 3 mg/ml injectable suspension (1 source) Corticosteroid Start: 10-25-19 End: 10-25-19 betamethasone acetate-betamethason e sodium phosphate 12 mg injection (CELESTONE) 24 hr buPROPion hydrochloride 150 mg extended release oral tablet (20 sources) Aminoketone Start: 02-15-20 End: 07-23-19 take 1 tablet by mouth once daily buPROPion XL (WELLBUTRIN XL) 150 mg 24 hr tablet Take 1 tablet by mouth once daily. 90 tablet 1 02/14/2022 07/22/2022 Discontinued (Course of therapy completed) Comment on above: Take 1 tablet by wanda th once daily. cephalexin 500 mg oral capsule (2 sources) Cephalosporin Antibacterial Start: 01-10-20 End: 01-22-20 take 1 capsule by mouth twice daily Cephalexin 500 mg capsule Discontinued 500 mg PO TWICE A DAY January 09, 2023 1:00am January 21, 2023 5:26pm CPAP (20 sources) Start: 08-23-19 End: 04-23-19 CPAP Indications: JENNY on CPAP Dispense CPAP 6 cmH2O, mask, tubing, filters, heated humidity, lifetime supplies. Dx: JENNY 1 Device 08/23/2019 04/23/2023 Discontinued Start: 08-23-2019 End: 04-23-2023 CPAP Indications: JENNY on CPA P Dispense CPAP 6 cmH2O, mask, tubing, filters, heated humidity, lifetime supplies. Dx: JENNY 1 Device 0 08/23/2019 04/23/2023 Discontinued Start: 08-23-2019 CPAP Indicatio ns: JENNY on CPAP Dispense CPAP 6 cmH2O, mask, tubing, filters, heated humidity, lifetime supplies. Dx: JENNY 1 Device 0 08/23/2019 Active Comment on above: Dispense CPAP 6 cmH2 O, mask, tubing, filters, heated humidity, lifetime supplies. Dx: JENNY diclofenac sodium 0.01 mg/mg topical gel (20 sources) Nonsteroidal Anti-inflammatory Drug Start: 01-04-20 End: 03-31-19 apply 2 g topically four times daily diclofenac sodium (VOLTAREN) 1 % topical gel Apply 2 g to affected area four times daily. 300 g 3 01/04/2020 03/31/2022 Discontinued Comment on above: Apply 2 g to affecte d area four times daily. doxycycline monohydrate 100 mg oral capsule (7 sources) Tetracycline-class Drug Start: 08-23-19 End: 09-06-19 take 1 capsule by mouth twice daily doxycycline monohydrate (MONODOX) 100 mg capsule Take 1 capsule by mouth twice daily. 20 capsule 0 08/22/2022 09/05/2022 Discontinued Start: 12-26-2020 End: 05-30-2021 take 1 capsule by mouth twice daily doxycycline monohydrate (MONODOX) 100 mg capsule Take 1 capsule by mouth twice daily. 20 capsule 0 12/26/2020 05/30/2021 Discontinued Start: 06-12-2016 take 1 tablet by wanda th once daily Doxycycline Hyclate 100 MG Oral Tablet TAKE 1 TABLET EVERY 12 HOURS DAILY. Quantity: 20 Refills: 0 Ordered: 12-Jun-2016 Zurdo Puentes MD Start : 12-Jun-2016 Active Comment on above: Take 1 capsule by mo [facility] twice daily. escitalopram 5 mg oral tablet (15 sources) Serotonin Reuptake Inhibitor Start: 3 End: 3 take 1 tablet by mouth once daily escitalopram oxalate (LEXAPRO) 5 mg tablet Take 1 tablet by mouth once daily. 30 tablet 1 11/17/2022 01/19/2023 Discontinued Comment on above: Take 1 tablet by wanda once daily. esomeprazole 40 mg delayed release oral capsule (20 sources) Proton Pump Inhibitor Start: 3 End: 4 take 1 capsule by mouth every twelve hours Esomeprazole Magnesium 40 mg capsule,delayed release(DR/EC) Discontinued 40 mg PO Q12H January 21, 2023 1:00am November 30, 2023 7:46pm Start: 01-05-2023 End: 07-21-2023 take 1 capsule by mouth once daily before breakfast esomeprazole (NEXIUM) 40 mg capsule Take 1 capsule by mouth daily before breakfast. 90 capsule 4 07/22/2023 Active Start: 08-15-2022 End: 01-05-2023 take 1 capsule by mouth twice daily before mealtime esomeprazole (NEXIUM) 40 mg capsule Take 1 capsule by mouth twice daily before meals. 180 capsule 1 08/15/2022 01/05/2023 Discontinued Start: 02-03-2022 End: 08-15-2022 take 1 capsule by mouth once daily before breakfast esomeprazole (NEXIUM) 40 mg capsule Take 1 capsule by mouth daily before breakfast. 90 capsule 2 05/01/2022 08/15/2022 Discontinued Start: 10-03-2020 End: 01-31-2022 take 1 capsule by mouth once daily before breakfast esomeprazole (NEXIUM) 40 mg capsule Take 1 capsule by mouth daily before breakfast. 90 capsule 2 07/05/2021 01/31/2022 Discontinued Comment on above: Take 1 capsule by mo uth daily before breakfast. Take 1 capsule by mo uth twice daily before meals. 10 ml lidocaine hydrochloride 10 mg/ml injection (1 source) Antiarrhythmic, Amide Local Anesthetic Start: 10-24-2022 End: 10-24-2022 lidocaine (PF) 10 mg/mL (1 %) 3 mL injection (XYLOCAINE) Methotrexate (20 sources) Folate Analog Metabolic Inhibitor End: 07-09-2023 METHOTREXATE ORAL Take by mouth. 0 07/09/2023 Discontinued METHOTREXATE ORA L Take by mouth. 0 Active Comment on above: Take by mouth. perflutren lipid microspheres 1.3 mL in NaCl (PF) 0.9% 10 mL injection (DEFINITY) (20 sources) Start: 11-28-2022 End: 12-05-2022 perflutren lipid microspheres 1.3 mL in NaCl (PF) 0.9% 10 mL injection (DEFINITY) Start: 04-03-2022 End: 07-03-2023 perflutren lipid microsphere s 1.3 mL in NaCl (PF) 0.9% 10 mL injection (DEFINITY) predniSONE 10 mg oral tablet (20 sources) Start: 05-10-2023 End: 05-21-2023 take 4 tablets by mouth once daily, then take 3 tablets by mouth once daily, then take 2 tablets by mouth once daily, then take 1 tablet by mouth once daily predniSONE (DELTASONE) 10 mg tablet Take 4 tablets by mouth once daily for 3 days, THEN 3 tablets once daily for 3 days, THEN 2 tablets once daily for 3 days, THEN 1 tablet once daily for 3 days. 30 tablet 0 05/10/2023 05/21/2023 Start: 02-17-2023 predniSONE (DE LTASONE) 10 mg tablet Take PO 4 tablets x 5 days, then 3 tablets x 3 days, then 2 tablets x 3 days, 1 tablets x 3 days 38 tablet 0 02/17/2023 Active Start: 01-21-2023 End: 11-30-2023 Prednisone 10 mg tablet Disc ontinued 10 mg PO January 21, 2023 1:00am November 30, 2023 7:47pm Start: 01-19-2023 predniSONE (DE LTASONE) 10 mg tablet Take PO 4 tablets x 5 days, then 3 tablets x 3 days, then 2 tablets x 3 days, 1 tablets x 3 days 38 tablet 0 01/19/2023 Active Start: 11-28-2022 End: 12-05-2022 take 2 tablets by mouth once daily predniSONE (DELTASONE) 20 mg tablet Take 2 tablets by mouth once daily for 7 days. 14 tablet 0 11/28/2022 12/05/2022 Start: 08-22-2022 End: 09-29-2022 predniSONE (DELTASONE) 10 mg tablet Take PO 4 tablets x 5 days, then 3 tablets x 3 days, then 2 tablets x 3 days, 1 tablets x 3 days 38 tablet 0 08/22/2022 09/29/2022 Discontinued Start: 12-13-2021 End: 02-14-2022 predniSONE (DELTASONE) 10 mg tablet Take PO 4 tablets x 5 days, then 3 tablets x 3 days, then 2 tablets x 3 days, 1 tablets x 3 days 38 tablet 12/13/2021 02/14/2022 Discontinued Start: 11-30-2021 predniSONE (DE LTASONE) 10 mg tablet Take PO 4 tablets x 3 days, then 3 tablets x 3 days, then 2 tablets x 3 days, 1 tablets x 3 days 30 tablet 0 11/30/2021 Active Start: 12-26-2020 End: 05-30-2021 predniSONE (DELTASONE) 10 mg tablet Take PO 4 tablets x 3 days, then 3 tablets x 3 days, then 2 tablets x 3 days, 1 tablets x 3 days 30 tablet 0 12/26/2020 05/30/2021 Discontinued Start: 06-12-2016 take 2 tablets by mo cth once daily predniSONE 20 MG Oral Tablet TAKE 2 TABLETS DAILY. Quantity: 10 Refills: 0 Ordered: 12-Jun-2016 Zurdo Puentes MD Start : 12-Jun-2016 Active Comment on above: Take PO 4 tablets x 3 days, then 3 tablets x 3 days, then 2 tablets x 3 days, 1 tablets x 3 days Take PO 4 tablets x 5 days, then 3 tablets x 3 days, then 2 tablets x 3 days, 1 tablets x 3 days Take 2 tablets by [facility] once daily for 7 days. Take 4 tablets by [facility] once daily for 3 days, THEN 3 tablets once daily for 3 days, THEN 2 tablets once daily for 3 days, THEN 1 tablet once daily for 3 days. pregabalin 50 mg oral capsule (4 sources) Start: 3 End: 4 take 1 capsule by mouth twice daily pregabalin (LYRICA) 50 mg capsule Indications: Post herpetic neuralgia Take 1 capsule by mouth two times a day for 30 days. 60 capsule 0 02/27/2023 04/23/2023 Discontinued Comment on above: Take 1 capsule by [facility] two times a day for 30 days. sertraline 25 mg oral tablet (1 source) Serotonin Reuptake Inhibitor Start: 3 End: 3 take 1 tablet by mouth once daily sertraline (ZOLOFT) 25 mg tablet Indications: Anxiety Take 1 tablet by mouth once daily. 90 tablet 0 11/12/2022 11/17/2022 Discontinued (Side Effects) Comment on above: Take 1 tablet by [facility] once daily. simvastatin 40 mg oral tablet (1 source) HMG-CoA Reductase Inhibitor Simvastatin 40 MG Oral Tablet Quantity: 0 Refills: 0 Ordered: 09-Dec-2015 DO Active 125 ml sodium chloride 9 mg/ml prefilled syringe (20 sources) Start: 3 End: 4 sodium chloride 0.9 % (flush) 10 mL (BD POSIFLUSH) Problems Active Problems Problem Classification Problem Date Documented Date Episodic/Chronic Acute bronchitis (1 source) Acute bronchitis; Translations: [Acute bronchitis] Episodic Adjustment disorders (1 source) Family tension; Translations: [Reaction to severe stress, unspecified] Chronic Administrative/socia l admission (5 sources) Patient encounter status; Translations: [Persons encountering health services in other specified circumstances] Episodic Anxiety disorders (20 sources) Anxiety; Translations: [Anxiety disorder, unspecified] Onset: 07-22-2017 Chronic Asthma (20 sources) Asthma; Translations: [Unspecified asthma, uncomplicated] Onset: 05-21-2004 05-22-2016 Chronic Cardiac dysrhythmias (5 sources) Palpitations; Translations: [Palpitations] Onset: 04-23-2023 11-28-2022 Episodic Complications of surgical procedures or medical care (2 sources) Drug therapy finding; Translations: [Unspecified adverse effect of drug or medicament, initial encounter] 01-29-2023 Episodic Deficiency and other anemia (1 source) Anemia; Translations: [Anemia, unspecified] 07-10-2023 Episodic Disorders of lipid metabolism (20 sources) Pure hypercholesterolemia; Translations: [Pure hypercholesterolemia, unspecified] Onset: 07-05-2002 Chronic Diverticulosis and diverticulitis (20 sources) Diverticulosis of colon; Translations: [Diverticulosis of large intestine without perforation or abscess without bleeding] 10-29-2006 Chronic Esophageal disorders (20 sources) Gastroesophageal reflux disease; Translations: [Gastro-esophageal reflux disease without esophagitis] 03-25-2016 Chronic Essential hypertension (20 sources) Essential hypertension; Translations: [Essential (primary) hypertension] Onset: 07-15-2005 01-21-2017 Chronic Headache; including migraine (2 sources) Migraine; Translations: [Other migraine, not intractable, without status migrainosus] Chronic Malaise and fatigue (2 sources) Fatigue; Translations: [Other fatigue] Episodic Miscellaneous mental health disorders (20 sources) Primary insomnia; Translations: [Primary insomnia] Onset: 11-09-2018 Chronic Mood disorders (20 sources) Recurrent major depression in full remission; Translations: [Major depressive disorder, recurrent, in full remission] Onset: 05-21-2004 Resolved: 07-22-2017 Chronic Osteoarthritis (20 sources) Degenerative joint disease involving multiple joints; Translations: [Polyosteoarthritis, unspecified] Onset: 09-04-2005 09-04-2005 Chronic Osteoporosis (20 sources) Osteoporosis; Translations: [Age-related osteoporosis without current pathological fracture] Onset: 10-13-2005 10-17-2016 Chronic Other connective tissue disease (1 source) Trochanteric bursitis of right hip; Translations: [Trochanteric bursitis, right hip] Episodic Other connective tissue disease (2 sources) Muscle wasting and atrophy, not elsewhere classified, right lower leg; Translations: [Muscle wasting and atrophy, not elsewhere classified, right lower leg] Onset: 11-12-2023 Episodic Other connective tissue disease (2 sources) Muscle wasting and atrophy, not elsewhere classified, left lower leg; Translations: [Muscle wasting and atrophy, not elsewhere classified, left lower leg] Onset: 11-12-2023 Episodic Other ear and sense organ disorders (1 source) Otitis externa; Translations: [Infective otitis externa, unspecified] Chronic Other ear and sense organ disorders (1 source) Impacted cerumen; Translations: [Impacted cerumen] Episodic Other fractures (1 source) Closed fracture of one rib; Translations: [Fracture of one rib, left side, subsequent encounter for fracture with routine healing] 09-07-2022 Episodic Other hematologic conditions (1 source) Other specified diseases of blood and blood-forming organs; Translations: [Macrocytosis] Onset: 05-26-2023 Chronic Other infections; including parasitic (2 sources) Post-viral disorder; 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 Other infections; including parasitic (2 sources) Personal history of other infectious and parasitic diseases; Translations: [History of COVID-19] Episodic Other inflammatory condition of skin (20 sources) Psoriasis; Translations: [Other psoriasis] Onset: 09-04-2005 09-04-2005 Chronic Other lower respiratory disease (20 sources) Idiopathic pulmonary fibrosis; Translations: [Idiopathic pulmonary fibrosis] Onset: 12-23-2017 Chronic Other lower respiratory disease (6 sources) Interstitial lung disease; Translations: [Interstitial pulmonary disease, unspecified] Chronic Other lower respiratory disease (1 source) Interstitial pulmonary disease, unspecified; Translations: [Interstitial pulmonary disease (HCC)] Onset: 09-18-2023 Chronic Other lower respiratory disease (2 sources) Idiopathic pulmonary fibrosis; Translations: [Idiopathic pulmonary fibrosis] Onset: 11-12-2023 Chronic Other lower respiratory disease (2 sources) Multiple nodules of lung; Translations: [Other nonspecific abnormal finding of lung field] Episodic Other lower respiratory disease (1 source) Cough; Translations: [Cough] Episodic Other lower respiratory disease (1 source) Nodule of lung; Translations: [Solitary pulmonary nodule] Episodic Other lower respiratory disease (2 sources) Rib pain; Translations: [Pleurodynia] Episodic Other lower respiratory disease (3 sources) Dyspnea; Translations: [Shortness of breath] 11-28-2022 Episodic Other lower respiratory disease (1 source) Dyspnea on exertion; Translations: [Other forms of dyspnea] 04-23-2023 Episodic Other lower respiratory disease (1 source) Other forms of dyspnea; Translations: [DON (dyspnea on exertion)] Onset: 04-23-2023 Episodic Other nervous system disorders (1 source) Other chronic pain; Translations: [Chronic right shoulder pain] Onset: 10-24-2022 Chronic Other non-traumatic joint disorders (2 sources) Pain in right hip joint; Translations: [Pain in right hip] Episodic Other non-traumatic joint disorders (1 source) Chronic pain of right upper limb; Translations: [Pain in right shoulder] 10-24-2022 Episodic Other non-traumatic joint disorders (1 source) Hip pain; Translations: [Pain in right hip] 05-22-2022 Episodic Other non-traumatic joint disorders (1 source) Pain in right knee; Translations: [Pain in joint, lower leg] 12-30-2021 Episodic Other upper respiratory disease (2 sources) Allergic rhinitis; Translations: [Allergic rhinitis, unspecified] Chronic Other upper respiratory disease (1 source) Congestion of nasal sinus; Translations: [Nasal congestion] 01-25-2023 Episodic Residual codes; unclassified (20 sources) Obstructive sleep apnea syndrome; Translations: [Obstructive sleep apnea (adult) (pediatric)] Chronic Residual codes; unclassified (1 source) Obstructive sleep apnea (adult) (pediatric); Translations: [Obstructive sleep apnea] Onset: 03-25-2016 Chronic Residual codes; unclassified (2 sources) Pain; Translations: [Pain, unspecified] 10-08-2022 Episodic Residual codes; unclassified (1 source) Not for resuscitation; Translations: [Do not resuscitate] 04-23-2023 Episodic Residual codes; unclassified (1 source) Do not resuscitate; Translations: [DNR (do not resuscitate)] Onset: 04-23-2023 Episodic Respiratory failure; insufficiency; arrest (adult) (20 sources) Chronic hypoxemic respiratory failure; Translations: [Chronic respiratory failure with hypoxia] Onset: 09-04-2020 Chronic Spondylosis; intervertebral disc disorders; other back problems (20 sources) Degeneration of lumbosacral intervertebral disc; Translations: [Other intervertebral disc degeneration, lumbosacral region] 10-29-2006 Chronic Thyroid disorders (20 sources) Acquired hypothyroidism; Translations: [Hypothyroidism, unspecified] Onset: 05-22-2016 Chronic Urinary tract infections (4 sources) Urinary tract infectious disease; Translations: [Urinary tract infection, site not specified] 01-17-2023 Episodic Viral infection (1 source) Herpes zoster; Translations: [Herpes zoster without mention of complication] Episodic Past or Other Problems Problem Classification Problem Date Documented Da te Episodic/Chronic Deficiency and other anemia (1 source) Anemia, unspecified; Translations: [Anemia, unspecified type] Onset: 07-14-2023 Episodic Fluid and electrolyte disorders (2 sources) Hyponatremia; Translations: [Hypo-osmolality and hyponatremia] Onset: 07-14-2023 07-10-2023 Episodic Genitourinary symptoms and ill-defined conditions (2 sources) Dysuria; Translations: [Dysuria] Onset: 07-14-2023 07-13-2023 Episodic Headache; including migraine (20 sources) Headache; Translations: [Nonintractable headache, unspecified chronicity pattern, unspecified headache type] Onset: 04-23-2017 Episodic Other bone disease and musculoskeletal deformities (20 sources) Disorder of skeletal system; Translations: [Disorder of bone, unspecified] Resolved: 04-23-2017 04-23-2017 Episodic Other connective tissue disease (20 sources) Plantar fascial fibromatosis; Translations: [Plantar fascial fibromatosis] Onset: 09-04-2005 09-04-2005 Episodic Other connective tissue disease (20 sources) Inflammatory disorder of extremity; Translations: [Pes anserinus tendinitis or bursitis] Onset: 09-04-2005 Resolved: 07-22-2017 07-22-2017 Episodic Other gastrointestinal disorders (20 sources) Mass of colon; Translations: [Other specified diseases of intestine] Onset: 06-02-2012 Resolved: 04-23-2017 04-23-2017 Episodic Other gastrointestinal disorders (20 sources) Dysphagia; Translations: [Dysphagia, unspecified] Onset: 05-22-2016 Resolved: 01-21-2017 01-21-2017 Episodic Other lower respiratory disease (1 source) Shortness of breath; Translations: [SOB (shortness of breath)] Onset: 01-29-2023 Episodic Other lower respiratory disease (1 source) Other nonspecific abnormal finding of lung field; Translations: [Lung nodules] Onset: 07-09-2022 Episodic Other lower respiratory disease (20 sources) Apnea; Translations: [Apnea, not elsewhere classified] Resolved: 12-05-2015 02-25-2021 Episodic Other non-traumatic joint disorders (1 source) Pain in right shoulder; Translations: [Chronic right shoulder pain] Onset: 10-24-2022 Episodic Other non-traumatic joint disorders (2 sources) Pain in right hip; Translations: [Pain in right hip] Onset: 05-22-2022 Episodic Other upper respiratory disease (1 source) Epistaxis; Translations: [Epistaxis] Onset: 12-29-2023 Episodic Pathological fracture (20 sources) Pathological fracture of vertebra; Translations: [Pathological fracture, other site, initial encounter for fracture] Onset: 10-13-2005 Resolved: 07-22-2017 07-22-2017 Episodic Peripheral and visceral atherosclerosis (20 sources) Ischemic colitis; Translations: [Vascular disorder of intestine, unspecified] Onset: 06-02-2012 Resolved: 04-23-2017 04-23-2017 Chronic Pneumonia (except that caused by tuberculosis or sexually transmitted disease) (1 source) Pneumonia, unspecified organism; Translations: [Pneumonia, unspecified organism] Onset: 04-29-2024 Episodic Residual codes; unclassified (20 sources) Sleep apnea; Translations: [Sleep apnea, unspecified] Onset: 01-04-2008 Resolved: 07-22-2017 02-25-2021 Chronic Residual codes; unclassified (1 source) Pain, unspecified; Translations: [Pain] Onset: 10-24-2022 Episodic Spondylosis; intervertebral disc disorders; other back problems (20 sources) Neck pain; Translations: [Cervicalgia] Onset: 09-24-2005 Resolved: 07-22-2017 09-10-2007 Episodic Sprains and strains (20 sources) Sprain of shoulder rotator cuff; Translations: [Sprain of unspecified rotator cuff capsule, initial encounter] Onset: 06-21-2003 Resolved: 07-22-2017 07-22-2017 Episodic Thyroid disorders (20 sources) Disorder of thyroid gland; Translations: [Disorder of thyroid, unspecified] Resolved: 04-23-2017 04-23-2017 Episodic Results Test Name Value Interpretation Reference Range Facility Bilirubin directOrdered By: Anais Osullivan on 07-19-2024 Bilirubin.direct [Mass/Vol] 0.08 mg/dL 0.00-0.30 [facility] Bilirubin, totalOrdered By: Anais Osullivan on 07-19-2024 Bilirubin [Mass/Vol] 0.18 mg/dL 0.00-1.30 [facility] Laboratory - Chemistry and C hemistry - challengeOrdered By: Anais Osullivan on 07-19-2024 AST [Catalytic activity/Vol] 18 U/L <32 [facility] Serum globulin measurementOr dered By: Anais Osullivan on 07-19-2024 Globulin (S) [Mass/Vol] 3.5 g/dL 2.2-4.2 [facility] Serum or plasma alanine hart otransferase (ALT) measurementOrdered By: Anais Osullivan on 07-19-2024 ALT [Catalytic activity/Vol] U/L <35 [facility] Serum or plasma albumin bipin urement (mass/volume)Ordered By: Anais Osullivan on 07-19-2024 Albumin [Mass/Vol] 3.3 g/dL Low 3.4-4.8 [facility] Serum or plasma alkaline roni sphatase measurementOrdered By: Anais Osullivan on 07-19-2024 ALP [Catalytic activity/Vol] 69 U/L 35-104 [facility] TSH DL <= 0.005 mIU/L QnOrde red By: Anais Osullivan on 07-19-2024 TSH Qn 3.540 uIU/mL 0.300-4.200 [facility] Total proteinOrdered By: David Osullivan on 07-19-2024 Protein [Mass/Vol] 6.8 g/dL 5.9-8.4 [facility] Absolute lymphocyte countOrd ered By: Stacie Chen on 05-17-2024 Lymphocytes Auto (Unsp spec) [#/Vol] 1.58 10*3/uL 0.83-4.51 [facility] Absolute neutrophil countOrd ered By: Stacie Chen on 05-17-2024 Neutrophils (Bld) [#/Vol] 3.3 10*3/uL 2.0-7.7 [facility] Anion gap in Serum or Plasma Ordered By: Stacie Chen on 05-17-2024 Anion gap [Moles/Vol] 8 mmol/L 5-15 [facility] Automated lymphocyte count a s percentage of total leukocytesOrdered By: Stacie Chen on 05-17-2024 Lymphocytes/100 WBC Auto (Unsp spec) 25.3 % 19-41 [facility] BUN/creatinine ratioOrdered By: Stacie Chen on 05-17-2024 Urea nitrogen/Creatinine [Mass ratio] 16.6 mg/mg 10-20 [facility] Basophil percentageOrdered B y: Stacie Chen on 05-17-2024 Basophils/100 WBC (Bld) 0.8 % 0-1 [facility] Carbon dioxide, total [Moles /volume] in Central venous bloodOrdered By: Stacie Chen on 05-17-2024 CO2 [Moles/Vol] 30.7 mmol/L 21.0-32.0 [facility] Chloride assayOrdered By: Richard Chen on 05-17-2024 Chloride [Moles/Vol] 99 mmol/L 98-108 [facility] Eosinophil percentageOrdered By: Stacie Chen on 05-17-2024 Eosinophils/100 WBC (Bld) 11.4 % High 0-5 [facility] Erythrocyte distribution wid th (RBC) [Ratio]Ordered By: Stacie Chen on 05-17-2024 Erythrocyte distribution width (RBC) [Entitic vol] 46.8 fL High 35.1-43.9 [facility] Erythrocyte distribution wid th ratioOrdered By: Stacie Chen on 05-17-2024 Erythrocyte distribution width (RBC) [Ratio] 13.2 % 11.6-14.6 [facility] Erythrocyte distribution wid th standard deviationOrdered By: Stacie Chen on 05-17-2024 Erythrocyte distribution width (RBC) [Ratio] 46.8 fl High 35.1-43.9 [facility] GFR/1.73 sq M.predicted juanjose g non-blacks MDRD (S/P/Bld) [Vol rate/Area]Ordered By: Stacie Chen on 05-17-2024 Estimated GFR (MDRD) Non-Af Amer 91 >60 [facility] Comment on above: mL/min/1.73m2 CKD-EP I Creatinine Equation (2020) Glomerular filtration rate ( GFR) estimation/1.73 sq m using serum, plasma, or whole bOrdered By: Stacie Chen on 05-17-2024 GFR/1.73 sq M.predicted among non-blacks MDRD (S/P/Bld) [Vol rate/Area] 91 mL/min/{1.73_m2} >60 [facility] Comment on above: mL/min/1.73m2 CKD-EP I Creatinine Equation (2020) Hematocrit Auto (Bld) [Volum e fraction]Ordered By: Stacie Chen on 05-17-2024 Hematocrit (Bld) [Volume fraction] 29.3 % Low 37-47 [facility] Hemoglobin measurementOrdere d By: Stacie Chen on 05-17-2024 Hemoglobin (Bld) [Mass/Vol] 9.1 g/dL Low 12.0-15.0 [facility] Immature granulocytes/100 WB C Auto (Bld)Ordered By: Stacie Chen on 05-17-2024 Immature granulocytes/100 WBC (Bld) 0.200 % 0.0-0.9 [facility] Comment on above: IG% - Immature Granu locytes (promyelocytes, myelocytes and metamyelocytes) > 1% indicates that a LEFT SHIFT is Present. Lymphocytes Auto (Unsp spec) [#/Vol]Ordered By: Stacie Chen on 05-17-2024 Lymphocytes (Bld) [#/Vol] 1.58 10*3/uL 0.83-4.51 [facility] Lymphocytes/100 WBC Auto (Un sp spec)Ordered By: Stacie Chen on 05-17-2024 Lymphocytes/100 WBC (Bld) 25.3 % 19-41 [facility] MCV (mean corpuscular volume ) determinationOrdered By: Stacie Chen on 05-17-2024 MCV (RBC) [Entitic vol] 98.3 fL 81-99 [facility] Mean corpuscular hemoglobin (MCH) determinationOrdered By: Stacie Chen on 05-17-2024 MCH (RBC) [Entitic mass] 30.5 pg 27.0-32.0 [facility] Mean corpuscular hemoglobin concentration (MCHC) determinationOrdered By: Stacie Chen on 05-17-2024 MCHC (RBC) [Mass/Vol] 31.1 g/dL Low 32-36 [facility] Mean platelet volume determi nationOrdered By: Stacie Chen on 05-17-2024 Platelet mean volume (Bld) [Entitic vol] 9.2 fL 6.2-12.0 [facility] Monocyte percentageOrdered B y: Stacie Chen on 05-17-2024 Monocytes/100 WBC (Bld) 9.6 % 0-10 [facility] Neutrophil percentageOrdered By: Stacie Chen on 05-17-2024 Neutrophils/100 WBC (Bld) 52.7 % 47-70 [facility] Nucleated red blood cell per centageOrdered By: Stacie Chen on 05-17-2024 Nucleated RBC/100 WBC (Bld) [Ratio] 0 % 0-5 [facility] Platelet countOrdered By: Richard Chen on 05-17-2024 Platelets (Bld) [#/Vol] 215 10*3/uL 150-450 [facility] Potassium (Unsp spec) [Mass/ Vol]Ordered By: Stacie Chen on 05-17-2024 Potassium [Moles/Vol] 4.2 mmol/L 3.3-5.1 [facility] Potassium measurement (mass/ volume)Ordered By: Stacie Chen on 05-17-2024 Potassium (Unsp spec) [Mass/Vol] 4.2 mmol/L 3.3-5.1 [facility] RBC Auto (Bld) [#/Vol]Ordere d By: Stacie Chen on 05-17-2024 RBC (Bld) [#/Vol] 2.98 10*6/uL Low 4.2-5.4 [facility] Serum creatinine measurement (mass/volume)Ordered By: Stacie Chen on 05-17-2024 Creatinine [Mass/Vol] 0.56 mg/dL Low 0.70-1.20 [facility] Serum glucose measurement (m ass/volume)Ordered By: Stacie Chen on 05-17-2024 Glucose [Mass/Vol] 96 mg/dL 70-99 [facility] Serum or plasma calcium bipin urement (mass/volume)Ordered By: Stacie Chen on 05-17-2024 Calcium [Mass/Vol] 9.3 mg/dL 7.6-11.0 [facility] Serum or plasma urea nitroge n measurement (mass/volume)Ordered By: Stacie Chen on 05-17-2024 Urea nitrogen [Mass/Vol] 9 mg/dL 4-19 [facility] Sodium levelOrdered By: Carla Chen on 05-17-2024 Sodium [Moles/Vol] 138 mmol/L 133-145 [facility] White blood cell (WBC) count Ordered By: Stacie Chen on 05-17-2024 WBC (Bld) [#/Vol] 6.3 10*3/uL 4.4-11.0 [facility] L. pneumophila Ag Ql (U)Orde red By: Anais Osullivan on 04-23-2024 Legionella Antigen [facility] Urine Legionella pneumophila antigen detectionOrdered By: Anais Osullivan on 04-23-2024 L. pneumophila Ag Ql (U) [facility] Bilirubin directOrdered By: Anais Osullivan on 04-19-2024 Bilirubin.direct [Mass/Vol] 0.09 mg/dL 0.00-0.30 [facility] Bilirubin, totalOrdered By: Anais Osullivan on 04-19-2024 Bilirubin [Mass/Vol] 0.20 mg/dL 0.20-1.00 [facility] Comment on above: For patients on eltr ombopag therapy, use of Dimension [place] TBIL is not recommended. Laboratory - Chemistry and C hemistry - challengeOrdered By: Anais Osullivan on 04-19-2024 AST [Catalytic activity/Vol] 19 U/L 15-37 [facility] Serum globulin measurementOr dered By: Anais Osullivan on 04-19-2024 Globulin (S) [Mass/Vol] 4.0 g/dL 2.2-4.2 [facility] Serum or plasma alanine hart otransferase (ALT) measurementOrdered By: Anais Magallonkenan on 04-19-2024 ALT [Catalytic activity/Vol] 12 U/L Low 13-56 [facility] Serum or plasma albumin bipin urement (mass/volume)Ordered By: Anais Osullivan on 04-19-2024 Albumin [Mass/Vol] 2.9 g/dL Low 3.2-5.0 [facility] Serum or plasma alkaline roni sphatase measurementOrdered By: Anais Osullivan on 04-19-2024 ALP [Catalytic activity/Vol] 78 U/L 45-117 [facility] Serum or plasma thyroid stim ulating hormone (TSH) measurement (units/volume)Ordered By: Anais Tanvirtaryn on 04-19-2024 TSH Qn 3.220 uIU/mL 0.358-3.740 [facility] TSH QnOrdered By: Anais Osullivan on 04-19-2024 Thyroid Stimulating Hormone (TSH) 3.220 uIU/mL 0.358-3.740 [facility] Total proteinOrdered By: David Osullivan on 04-19-2024 Protein [Mass/Vol] 6.9 g/dL 6.4-8.2 [facility] Absolute lymphocyte countOrd ered By: Anais Magallonkenan on 04-07-2024 Lymphocytes Auto (Unsp spec) [#/Vol] 1.52 10*3/uL 0.83-4.51 [facility] Absolute neutrophil countOrd ered By: Anais Osullivan on 04-07-2024 Neutrophils (Bld) [#/Vol] 2.6 10*3/uL 2.0-7.7 [facility] Automated lymphocyte count a s percentage of total leukocytesOrdered By: Karlestherluizatim Rameyjoneskenan on 04-07-2024 Lymphocytes/100 WBC Auto (Unsp spec) 27.2 % 19-41 [facility] Basophil percentageOrdered B y: Sruthitim Rameyjoneskenan on 04-07-2024 Basophils/100 WBC (Bld) 1.3 % High 0-1 [facility] Eosinophil percentageOrdered By: Anais Shi on 04-07-2024 Eosinophils/100 WBC (Bld) 14.5 % High 0-5 [facility] Erythrocyte distribution wid th (RBC) [Ratio]Ordered By: Anais Osullivan on 04-07-2024 Erythrocyte distribution width (RBC) [Entitic vol] 47.1 fL High 35.1-43.9 [facility] Erythrocyte distribution wid th ratioOrdered By: [facility]atim Os[facility] on 04-07-2024 Erythrocyte distribution width (RBC) [Ratio] 12.6 % 11.6-14.6 [facility] Erythrocyte distribution wid th standard deviationOrdered By: [facility]at[facility] Osullivan on 04-07-2024 Erythrocyte distribution width (RBC) [Ratio] 47.1 fl High 35.1-43.9 [facility] Folic acid measurementOrdere d By: Anais Osullivan on 04-07-2024 Folate 5.30 ng/mL 3.1-55.4 [facility] Hematocrit Auto (Bld) [Volum e fraction]Ordered By: Anais Osullivan on 04-07-2024 Hematocrit (Bld) [Volume fraction] 28.3 % Low 37-47 [facility] Hemoglobin measurementOrdere d By: esthergreenetim Osullivan on 04-07-2024 Hemoglobin (Bld) [Mass/Vol] 8.6 g/dL Low 12.0-15.0 [facility] Immature granulocytes/100 WB C Auto (Bld)Ordered By: shaquille Osullivan on 04-07-2024 Immature granulocytes/100 WBC (Bld) 0.200 % 0.0-0.9 [facility] Comment on above: IG% - Immature Granu locytes (promyelocytes, myelocytes and metamyelocytes) > 1% indicates that a LEFT SHIFT is Present. Lymphocytes Auto (Unsp spec) [#/Vol]Ordered By: Anais Osullivan on 04-07-2024 Lymphocytes (Bld) [#/Vol] 1.52 10*3/uL 0.83-4.51 [facility] Lymphocytes/100 WBC Auto (Un sp spec)Ordered By: Anais Osullivan on 04-07-2024 Lymphocytes/100 WBC (Bld) 27.2 % 19-41 [facility] MCV (mean corpuscular volume ) determinationOrdered By: Anais Osullivan on 04-07-2024 MCV (RBC) [Entitic vol] 101.1 fL High 81-99 [facility] Mean corpuscular hemoglobin (MCH) determinationOrdered By: Anais Osullivan on 04-07-2024 MCH (RBC) [Entitic mass] 30.7 pg 27.0-32.0 [facility] Mean corpuscular hemoglobin concentration (MCHC) determinationOrdered By: Anais Osullivan on 04-07-2024 MCHC (RBC) [Mass/Vol] 30.4 g/dL Low 32-36 [facility] Mean platelet volume determi nationOrdered By: Anais Osullivan on 04-07-2024 Platelet mean volume (Bld) [Entitic vol] 9.7 fL 6.2-12.0 [facility] Monocyte percentageOrdered B y: Anais Osullivan on 04-07-2024 Monocytes/100 WBC (Bld) 10.4 % High 0-10 [facility] Neutrophil percentageOrdered By: Anais Osullivan on 04-07-2024 Neutrophils/100 WBC (Bld) 46.4 % Low 47-70 [facility] Nucleated red blood cell per centageOrdered By: Anais Osullivan on 04-07-2024 Nucleated RBC/100 WBC (Bld) [Ratio] 0 % 0-5 [facility] Platelet countOrdered By: Karl Osullivan on 04-07-2024 Platelets (Bld) [#/Vol] 199 10*3/uL 150-450 [facility] RBC Auto (Bld) [#/Vol]Ordere d By: Anais Osullivan on 04-07-2024 RBC (Bld) [#/Vol] 2.80 10*6/uL Low 4.2-5.4 [facility] Vitamin B12 measurementOrder ed By: Anais Osullivan on 04-07-2024 Cobalamin (Vitamin B12) [Mass/Vol] 407 pg/mL 211-911 [facility] White blood cell (WBC) count Ordered By: Anais Osullivan on 04-07-2024 WBC (Bld) [#/Vol] 5.6 10*3/uL 4.4-11.0 [facility] 01-25-2024 [facility] Telephone ([facility]) JAMILMERNA Blackwood ([id number]) 1940 F NFR Date Time Provider Department 01/25/24 SONA GRIER [facility] During your visit today, we recorded the following information about you: Lorene Jauregui LPN 01/25/2024 8:30 AM Signed Fax received from [facility] requesting sleep study and office visit notes supporting use of cpap. Sleep study from 2015 as well as office visit notes from 11/28/22 and 09/25/23 faxed to [facility] at [phone]. Transmission successful, paperwork in fax drawer. Indigo Decker, RN 04/18/2024 1:53 PM Signed Spoke to Sona from [facility]. Asking for recent ABG and PFT's for the patient, they are trying to help her obtain NIV. Advised of date she last had any testing which was in August, no ABG noted. Sona will find out what the next step is to assist the patient and reach out to the office as needed. Allergies As of Date: 01/25/2024 Noted Allergy Reaction ROFECOXIB 04/20/2002 9 - Itching Comments: heart palpitations,red blotching on face AMOXICILLIN 11/28/2022 5 - Intolerance Comments: Swelling in her eye. ASPIRIN 01/06/2001 Comments: heart palpitations DOXYCYCLINE 09/05/2022 8 - GI Upset IBUPROFEN 01/06/2001 Comments: face swells LISINOPRIL 07/10/2020 8 - GI Upset Comments: Acid reflux SEASONAL ALLERGIES 09/04/2020 5 - Intolerance SINGULAIR (MONTELUKAST SODIUM) 10/21/2017 2 - Rash SULFA (SULFONAMIDE ANTIBIOTICS) 01/06/2001 Comments: rash ZOLOFT (SERTRALINE) 11/28/2022 6 - Diarrhea Date Reviewed: 09/25/2023 Reviewed by: Elisabeth Barber MA - Fully Assessed Reason for Visit: Release Of Medical Records [2017] Cmt: [facility] Prescriptions as of 04/18/2024 - pirfenidone (ESBRIET) 801 mg tablet Take 1 tablet by mouth three times a day. - esomeprazole (NEXIUM) 40 mg capsule Take 1 capsule by mouth daily before breakfast. - nortriptyline (PAMELOR) 75 mg capsule Take 1 capsule by mouth daily at bedtime. - fluticasone (FLOVENT) 110 mcg/actuation inhaler Inhale 1 Puff as instructed two times a day. Shake well before use. Rinse mouth after use. - triamcinolone acetonide (KENALOG) 0.5 % cream Apply to affected area three times a day. - ALPRAZolam (XANAX) 1 mg tablet Take 1 tablet by mouth three times a day as needed for sedation or anxiety for up to 30 days. - levothyroxine (SYNTHROID) 75 mcg tablet Take 0.5 tablets by mouth once daily. - fluticasone (FLONASE) 50 mcg/actuation nasal spray Use 1 [place] in each nostril once daily. - gabapentin (NEURONTIN) 100 mg capsule TAKE 1 CAPSULE BY MOUTH 4 TIMES DAILY NEEDED - pravastatin (PRAVACHOL) 40 mg tablet take 1 tablet at bedtime - betamethasone valerate 0.1 % ointment Apply to affected area two times a day. - cloNIDine HCl (CATAPRES) 0.1 mg tablet take 1 tablet twice daily - verapamil SR (CALAN SR) 240 mg CR tablet Take 1 tablet by mouth daily at bedtime. - SUMAtriptan (IMITREX) 100 mg tablet Take 1 tablet (100 mg) by mouth as needed for migraine headache (see administration instructions). at onset of headache.May repeat after 2 hours. - CPAP/BIPAP/OTHER Type .CPAPSettings into a note to see current settings/supplies/DME information. - erythromycin (ROMYCIN) 5 mg/gram (0.5 %) ophthalmic ointment daily at bedtime. - levalbuterol tartrate HFA 45 mcg/actuation inhaler INHALE 1-2 PUFFS INSTRUCTED EVERY 4 HOURS NEEDED FOR WHEEZING/SHORTNESS OF BREATH. - fexofenadine (MARIA C) 180 mg tablet Take 180 mg by mouth as needed (Patient choice). - promethazine (PHENERGAN) 12.5 mg tablet Take 1 tablet by mouth every 6 hours as needed (Headache). - OXYGEN, HOME THERAPY, Please dispense an oxygen concentrator, a portable oxygen concentrator and all necessary accessories to be used at 2L/min NC with exertion and with sleep. - COMPOUNDED PRESCRIPTION Please dispense an oxygen concentrator and a portable oxygen concentrator and all necessary accessories to be used at 2L/min NC with exertion. - acetaminophen/caffeine (EXCEDRIN ASPIRIN FREE ORAL) Take 2 tablets by mouth as needed. - Inhalational Spacing Device (AEROCHAMBER) Spcr 1 Device as directed. Problem List As Of Date 01/25/2024 Noted Resolved Pure hypercholesterolemia [E78.00] 07/05/2002 Rotator cuff (capsule) sprain [S43.429A] 06/21/2003 07/22/2017 Recurrent major depressive disorder, in full re*05/21/2004 Asthma [J45.909] 05/21/2004 Essential hypertension [I10] 07/15/2005 OTHER PSORIASIS [L40.8] 09/04/2005 Primary osteoarthritis of hip [M16.10] 09/04/2005 Pes anserinus tendinitis or bursitis [GKA3551] 09/04/2005 07/22/2017 PLANTAR FIBROMATOSIS [M72.2] 09/04/2005 Backache, unspecified [M54.9] 09/24/2005 04/23/2017 Thoracic or lumbosacral neuritis or radiculitis*09/24/2005 07/22/2017 Pathologic fracture of vertebrae [M84.48XA] 10/13/2005 07/22/2017 Osteoporosis [M81.0] more content not included)... Normal [facility] 12-31-2023 ISABELA Telephone ([facility]) JAMILMERNA ([id number]) 1940 F NFR Date Time Provider Department 12/31/23 SONA GRIER [facility] During your visit today, we recorded the following information about you: Elisabeth Barber MA 12/31/2023 3:23 PM Signed Fax received from [facility] for orders for Oxygen Concentrator and Supplies. E1390,E1392,A4615,A4616 . Dx's J84.11,J96.11, J45.30 AND G47.33. Placed in Dr. Grier's office to be signed. Elisabeth Barber MA 01/01/2024 5:25 PM Signed Forms faxed back to [facility]. Transmission with forms in drawer. Allergies As of Date: 12/31/2023 Noted Allergy Reaction ROFECOXIB 04/20/2002 9 - Itching Comments: heart palpitations,red blotching on face AMOXICILLIN 11/28/2022 5 - Intolerance Comments: Swelling in her eye. ASPIRIN 01/06/2001 Comments: heart palpitations DOXYCYCLINE 09/05/2022 8 - GI Upset IBUPROFEN 01/06/2001 Comments: face swells LISINOPRIL 07/10/2020 8 - GI Upset Comments: Acid reflux SEASONAL ALLERGIES 09/04/2020 5 - Intolerance SINGULAIR (MONTELUKAST SODIUM) 10/21/2017 2 - Rash SULFA (SULFONAMIDE ANTIBIOTICS) 01/06/2001 Comments: rash ZOLOFT (SERTRALINE) 11/28/2022 6 - Diarrhea Date Reviewed: 09/25/2023 Reviewed by: Elisabeth Barber MA - Fully Assessed Reason for Visit: Orders [681] Prescriptions as of 01/01/2024 - pirfenidone (ESBRIET) 801 mg tablet Take 1 tablet by mouth three times a day. - esomeprazole (NEXIUM) 40 mg capsule Take 1 capsule by mouth daily before breakfast. - nortriptyline (PAMELOR) 75 mg capsule Take 1 capsule by mouth daily at bedtime. - fluticasone (FLOVENT) 110 mcg/actuation inhaler Inhale 1 Puff as instructed two times a day. Shake well before use. Rinse mouth after use. - triamcinolone acetonide (KENALOG) 0.5 % cream Apply to affected area three times a day. - ALPRAZolam (XANAX) 1 mg tablet Take 1 tablet by mouth three times a day as needed for sedation or anxiety for up to 30 days. - levothyroxine (SYNTHROID) 75 mcg tablet Take 0.5 tablets by mouth once daily. - fluticasone (FLONASE) 50 mcg/actuation nasal spray Use 1 [place] in each nostril once daily. - gabapentin (NEURONTIN) 100 mg capsule TAKE 1 CAPSULE BY MOUTH 4 TIMES DAILY NEEDED - pravastatin (PRAVACHOL) 40 mg tablet take 1 tablet at bedtime - betamethasone valerate 0.1 % ointment Apply to affected area two times a day. - cloNIDine HCl (CATAPRES) 0.1 mg tablet take 1 tablet twice daily - verapamil SR (CALAN SR) 240 mg CR tablet Take 1 tablet by mouth daily at bedtime. - SUMAtriptan (IMITREX) 100 mg tablet Take 1 tablet (100 mg) by mouth as needed for migraine headache (see administration instructions). at onset of headache.May repeat after 2 hours. - CPAP/BIPAP/OTHER Type .CPAPSettings into a note to see current settings/supplies/DME information. - erythromycin (ROMYCIN) 5 mg/gram (0.5 %) ophthalmic ointment daily at bedtime. - levalbuterol tartrate HFA 45 mcg/actuation inhaler INHALE 1-2 PUFFS INSTRUCTED EVERY 4 HOURS NEEDED FOR WHEEZING/SHORTNESS OF BREATH. - fexofenadine (MARIA C) 180 mg tablet Take 180 mg by mouth as needed (Patient choice). - promethazine (PHENERGAN) 12.5 mg tablet Take 1 tablet by mouth every 6 hours as needed (Headache). - OXYGEN, HOME THERAPY, Please dispense an oxygen concentrator, a portable oxygen concentrator and all necessary accessories to be used at 2L/min NC with exertion and with sleep. - COMPOUNDED PRESCRIPTION Please dispense an oxygen concentrator and a portable oxygen concentrator and all necessary accessories to be used at 2L/min NC with exertion. - acetaminophen/caffeine (EXCEDRIN ASPIRIN FREE ORAL) Take 2 tablets by mouth as needed. - Inhalational Spacing Device (AEROCHAMBER) Spcr 1 Device as directed. Problem List As Of Date 12/31/2023 Noted Resolved Pure hypercholesterolemia [E78.00] 07/05/2002 Rotator cuff (capsule) sprain [S43.429A] 06/21/2003 07/22/2017 Recurrent major depressive disorder, in full re*05/21/2004 Asthma [J45.909] 05/21/2004 Essential hypertension [I10] 07/15/2005 OTHER PSORIASIS [L40.8] 09/04/2005 Primary osteoarthritis of hip [M16.10] 09/04/2005 Pes anserinus tendinitis or bursitis [CVH3126] 09/04/2005 07/22/2017 PLANTAR FIBROMATOSIS [M72.2] 09/04/2005 Backache, unspecified [M54.9] 09/24/2005 04/23/2017 Thoracic or lumbosacral neuritis or radiculitis*09/24/2005 07/22/2017 Pathologic fracture of vertebrae [M84.48XA] 10/13/2005 07/22/2017 Osteoporosis [M81.0] 10/13/2005 DIVERTICULOSIS OF COLON W/O BLEED [K57.30] osteoporosis [M89.9, M94.9] 04/23/2017 LUMB/LUMBOSAC DISC DEGEN [M51.379] CERVICALGIA [M54.2] 09/10/2007 Lumbago [M54.50] 09/10/2007 04/23/2017 Sprain of neck [S13.9XXA] 09/10/2007 07/22/2017 Unspecified sleep apnea [G47.30] 01/04/2008 07/22/2017 Apnea [R06.81] 12/05/2015 Ischemic colon (HCC) [K55.9 (more content not included)... [facility] Emergency Department Summary on 11-30-2023 Emergency Department Summary [facility] Medical Records Department [address] [place] [address] Emergency Department Summary 11/30/23 MR#: [id number] Acct: [id number] Name: MERNA WEBSTER Rep #: [id number] : 1940 83 From: Jose Raul Page DO PCP: Dr. Сергей Espinoza MD Status:DEP ER Location: ED HPI History of Present Illness Chief Complaint: Nosebleed Narrative Narrative: Chief complaint and HPI: Nosebleed. 83-year-old female presents for evaluation of a nosebleed. Patient states she wears oxygen at home and this often dries out her nose. She states she has been having an intermittent nosebleed all day. She states she could not stop it at home which is why she presents currently. She denies any headache, lightheadedness, shortness of breath, chest pain abdominal pain, nausea, vomiting, weakness. Patient is not on any blood thinners. Review of systems: See HPI Medications: As listed on the chart Allergies: As listed on the chart PFSH: Per chart Vital signs: As listed on the chart. Reviewed. Physical exam: Gen: A O x3, NAD Head: Normocephalic, atraumatic Eyes: No sclera icterus, conjunctiva clear, PERRL, EOMI ENT: Bilateral nares with blood clots -patient blew her nose and these were easily removed, bilateral nares without any active bleeding or injury, moist mucous membranes, posterior oropharynx unremarkable without dried blood or blood in the mouth, uvula midline Neck: Trachea midline, No JVD, Full ROM CV: RRR, no murmurs Resp: Lungs CTA BL, no w/r/c Musc: Full ROM, no deformity Neuro: Alert, oriented, grossly intact Psych: Cooperative, appropriate mood and affect [facility] Medical History Anxiety GERD (gastroesophageal reflux disease) High cholesterol HTN (hypertension) Pulmonary fibrosis Home Medications ???Medication ???Instructions ???Recorded ???Last Taken ???Type alprazolam 1 mg tablet 1 mg PO TID PRN anxiety 01/21/23 Unknown History clonidine HCl 0.1 mg tablet 0.1 mg PO TID HTN 01/21/23 Unknown History fluticasone propionate 110 1 puff inhalation Q12H 01/21/23 Unknown History mcg/actuation HFA aerosol inhaler (Flovent HFA) fluticasone propionate 50 1 spray intranasal Q12H 01/21/23 Unknown History mcg/actuation nasal spray,suspension levothyroxine 25 mcg tablet 25 mcg PO DAILY 01/21/23 Unknown History pirfenidone 267 mg capsule 267 mg PO TID 01/21/23 Unknown History (Esbriet) Allergy/AdvReac Type Severity Reaction Status Date / Time amoxicillin Allergy Mild PT UNSURE Verified 01/21/23 16:46 OF REACTION aspirin Allergy Mild PALPITATION Verified 01/21/23 16:46 S ibuprofen Allergy Mild Swelling Verified 01/21/23 16:46 montelukast Allergy Mild Rash Verified 01/21/23 16:46 rofecoxib Allergy Mild Itching Verified 01/21/23 16:46 Sulfa (Sulfonamide Allergy Mild Rash Verified 01/21/23 16:46 Antibiotics) doxycycline AdvReac Mild GI UPSET Verified 01/21/23 16:46 lisinopril AdvReac Mild GI UPSET Verified 01/21/23 16:46 sertraline AdvReac Mild Diarrhea Verified 01/21/23 16:46 Social History Smoking Status: Never smoker EXAM Physical Exam Const Vital Signs: 11/30/23 19:24 11/30/23 19:41 11/30/23 19:48 Temperature 97.7 F L Temperature Source Temporal Pulse Rate 104 H 99 Respiratory Rate 18 16 Blood Pressure 172/93 H Blood Pressure Mean 119 Pulse Ox 84 77 92 Oxygen Delivery Method Room Air 11/30/23 21:50 11/30/23 22:10 Temperature 97.6 F L Temperature Source Pulse Rate 96 89 Respiratory Rate 20 H 18 Blood Pressure 196/95 H 155/62 H Blood Pressure Mean 128 93 Pulse Ox 99 94 Oxygen Delivery Method Room Air MDM MDM MDM Narrative Medical decision making narrative: 83-year-old female presents for evaluation of nosebleed. Has been intermittent all day. Patient wears oxygen at baseline which dries out her nose. Patient is not on any blood thinners. She is asymptomatic other than a nosebleed. Given that patient is not on any blood thinners and asymptomatic I do not think any laboratory workup is needed at this time. See physical exam findings. Currently no active bleeding. Patient's continued bleeding may have been secondary to the large blood clots in her bilateral nares. No posterior bleeding. Afrin spray was placed in bilateral nares with nose clamp. After some time, nose clamp was removed and patient was ambulated in the emergency department. Vital stable. No recurrent bleeding. Patient was given Afrin spray and nose plug for home. Stable to discharge home. Follow-up with PCP. Return precautions explained. She confirmed understand the plan. Impression: 1. Anterior epistaxis Discharge Kath (more content not included)... [facility] ([facility] ) MERNA WEBSTER ([id number]) 1940 F NFR Date Time Provider Department 09/25/23 3:00 PM MOUNA VUONG [facility] During your visit today, we recorded the following information about you: Pulse Blood pressure Weight 79/minute 167/86 60.3 kg Ofelia Cruz APRN.CNP 09/26/2023 7:45 AM Attested Attestation signed by Mouna Vuong APRN.CNP at 09/26/2023 7:45 AM Attending Note I have personally performed a face to face assessment of the patient and have reviewed the PA/RECREATION SUPERINTENDENT note. Agree with plan as stated [facility] Pulmonary Medicine Patients name: Merna Webster PCP: Сергей Espinoza MD CC: follow-up HPI: Merna Webster is a 83 year old female who presents today for follow-up with PFT's. She has a past medical history of never smoker, JENNY, Asthma, IPF, chronic hypoxic respiratory failure, GERD, HTN, and OA. Current inhaler therapy includes Flovent and PRN Albuterol. She is also on Esbriet. She was last seen by Dr. Grier 03/24/2023 with the following recommendations: 1. Mild persistent asthma (primary diagnosis) Continue inhaled corticosteroids Flovent generic versus an Arnuity - Albuterol MDI 2 puffs with spacer prn 2. Idiopathic pulmonary fibrosis (HCC) - ICD9: 516.31, ICD10: J84.112 -Restrictive lung disease, severely reduced DLCO -Normal connective-tissue disease workup -Could not tolerate Ofev -Patient tolerating Esbriet since August 2018 liver function tests normal We will treat for possible acute exacerbation of IPF with course of doxycycline and steroids Echocardiogram 12/2022 rvsp 35 I filled out the form for patient assistance program 3. Chronic respiratory failure with hypoxia (HCC) - ICD9: 518.83, 799.02, ICD10: J96.11 - Continue supplemental oxygen. Currently using 2-3L NC - DME: [employer] 4. Obstructive sleep apnea on cpap - Compliant with nightly use and benefiting - patient's cpap machine is over 5 years old and broken beyond repair Requested a new one last visit 5. Gastroesophageal reflux disease, unspecified whether esophagitis present - ICD9: 530.81, ICD10: K21.9 - Discussed lifestyle modifications including losing weight, limiting caffeine, no meals three hours before sleep and head of bed elevation -Well controlled on Nexium 6. Allergic rhinitis, unspecified seasonality, unspecified trigger - ICD9: 477.9, ICD10: J30.9 - Well controlled on Flonase and Maria C Since her last visit, she had a cough and runny nose and was treated with Prednisone and antibiotics. Otherwise, she reports doing well. She moved into a care home with her at the beginning of June which has been helpful. Current symptoms include daily cough with clear phelgm but it's not overly bothersome. No hemoptysis. Rare wheezing. Has dyspnea on exertion with showering and grooming (unchanged). No dyspnea at rest. No fevers, chills, or night sweats. Mild lower extremity edema. GERD controlled on Nexium. No recent hospitalizations or ED visits or upper respiratory infections. Albuterol use 2-3 times a week. Currently on 3L O2. Compliant with CPAP, was replaced since her last visit. DME: [employer], O2 and CPAP PAST MEDICAL HISTORY Diagnosis Date Apnea cpap Asthma Asthma Bowel disease Degeneration of lumbar or lumbosacral intervertebral disc significant Diverticulosis of colon (without mention of hemorrhage) Dysthymic disorder Depression (non-psychotic) Esophageal reflux Gastroesophageal reflux Hypothyroidism 05/22/2016 Migraine Obstructive sleep apnea osteoporosis T11 mild compression. Other and unspecified hyperlipidemia needs med Snoring Thyroid disorder Unspecified essential hypertension Essential hypertension Allergies: Rofecoxib Itching Comment:heart palpitations,red blotching on face Amoxicillin Intolerance Comment:Swelling in her eye. Aspirin Comment:heart palpitations Doxycycline GI Upset Ibuprofen Comment:face swells Lisinopril GI Upset Comment:Acid reflux Seasonal Allergies Intolerance Singulair [Monteluk* Rash Sulfa (Sulfonamide * Comment:rash Zoloft [Sertraline] Diarrhea Medication List Accurate as of September 25, 2023 10:15 AM. If you have any questions, ask your nurse or doctor. CONTINUE taking these medications ALPRAZolam 1 mg tablet Commonly known as: XANAX Take 1 tablet by mouth three times a day as needed for sedation or anxiety for up to 30 days. betamethasone valerate 0.1 % ointment Apply to affected area two times a day. cloNIDine HCl 0.1 mg tablet Commonly known as: CATAPRES take 1 tablet twice daily COMPOUNDED PRESCRIPTION Please (more content not included)... 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 Start of test and EOFE criteria met. Lung Volumes repeatable x3. Current ATS/ERS acceptability and repeatability standards for DLCO met.//SRB IMPRESSION: Spirometry indicates no obstruction. The reduced FVC could indicate restriction, recommend lung volumes for definitive determination. Reduction in mobilized lung volumes indicates restriction. The diffusing capacity (uncorrected for hemoglobin) is reduced. The kCO (DLCO/VA) reflects a normal transfer/diffusion of CO from the alveolar regions to the blood. Clinical correlation recommended. Electronically Signed On 09-25-2023 15:43:25 EDT by Fatuma Schroeder MD ID: [id number] Name: MERNA WEBSTER Race: White Ht: 62.60 in Wt: 132.94 lbs Age: 83 Gender: Female : 1940 Dx: Idiopathic interstitial pulmonary disease_ Smoking Hx: Non-smoker Doctor: SONA GRIER Test Date: 09/25/2023 Site: [facility] Tech: Zayra Moon PRE-BRONCH POST-BRONCH Pre LLN Pred ULN %Pred Post %Pred %Chg SPIROMETRY FVC (L) 1.33 1.63 2.37 3.14 55 FEV1 (L) 1.17 1.21 1.80 2.35 64 FEV1/FVC 0.88 0.64 0.78 0.89 112 PEF L/s (L/sec) 5.59 2.70 4.34 5.98 128 FEF50 (L/sec) 2.91 1.08 2.69 4.30 108 FIF50 (L/sec) 2.85 FEF50/FIF50 1.02 90-100 FIVC (L) 1.22 OYB98-94 (L/sec) 2.41 0.59 1.44 2.75 167 Time (sec) 4.24 FET PEF (sec) 0.07 EMERSON (L) 0.07 Vol Extrap % (%) 5 LUNG VOLUMES TGV (L) 1.50 1.94 2.80 3.66 53 ERV (L) 0.22 0.79 27 RV (Pleth) (L) 1.29 1.74 2.37 3.00 54 SVC (L) 1.22 1.63 2.37 3.14 51 IC (L) 0.95 1.58 60 TLC (Pleth) (L) 2.45 3.96 4.84 5.73 50 RV/TLC (Pleth) (%) 52 40 49 58 107 LUNG DIFFUSION DLCOunc (ml/min/mmHg) 7.98 12.40 18.56 24.73 43 VA (L) 2.38 3.73 4.83 5.93 49 DLunc/VA (ml/min/mmHg/L) 4.18 2.84 4.16 5.47 100 BHT (sec) 9.84 IVC (L) 1.22 Comments: Current ATS/ERS acceptability and repeatability standards for spirometry met. Start of test and EOFE criteria met. Lung Volumes repeatable x3. Current ATS/ERS acceptability and repeatability standards for DLCO met.//SRB PULMONARY FUNCTION LAB [facility] SPIROMETRY WITH DILATOR IF O BSTRUCTEDon 09-25-2023 DLCO (ml/min/mmHg) 7.98 ml/min/mmHg [facility] DLCO/VA (ml/min/mmHg/L) 4.18 ml/m in/mmHg/ L [facility] ERV BOX (L) 0.22 L [facility] ELV52-29% PRE (L/S) 2.41 L/S [facility] FEV1 PRE (L) 1.17 L [facility] FEV1/FVC PRE (%) 88 % [facility] FRC Box (L) 1.50 L [facility] FVC PRE (L) 1.33 L [facility] IC BOX (L) 0.95 L [facility] PEF PRE (L/S) 5.59 L/S [facility] RV Box (L) 1.29 L [facility] RV/TLC Box (%) 52 % [facility] TLC Box (L) 2.45 L [facility] VA (L) 2.38 L [facility] VC (L) BOX 1.[address] [facility] [address] CHEST WO IVCONon 09-18-[address] CHEST WO IVCON * * *Final Report* * * DATE OF EXAM: Sep 18 2023 2:41PM [facility] 0541 - CT CHEST WO IVCON / PROCEDURE REASON: Interstitial pulmonary disease (HCC) * * * * Physician Interpretation * * * * EXAMINATION: CHEST CT WITHOUT CONTRAST CLINICAL HISTORY: Interstitial lung disease. Technique: Spiral CT acquisition of the chest from the thoracic inlet to the upper abdomen without contrast. The study was performed following HRCT protocol. MQ: [id number] CT Radiation dose: Integrated Dose-length product (DLP) for this visit = 207 mGy*cm CT Dose Reduction Employed: Automated exposure control(AEC) and iterative recon Comparison: CT chest on 07/09/2022 RESULT: Limitations: None. Lines, tubes, and devices: None. Lung parenchyma and airways: The central airways are patent. There are diffuse reticular opacities throughout both lungs. Honeycombing, traction bronchiectasis and architectural distortion are visualized. No groundglass opacities seen. No masses. Pleural space: No pleural effusion. No pleural thickening. Lower neck, lymph nodes, and mediastinum: The imaged thyroid gland is normal. No lymphadenopathy in the supraclavicular, axillary, mediastinal, or hilar regions, although multiple subcentimeter in short axis mediastinal lymph nodes are visualized. A small hiatal hernia is noted. Heart, pericardium, and thoracic vessels: Stable cardiac chambers, thoracic aorta and central pulmonary arteries. No pericardial effusion/thickening. Linear and punctate calcifications seen in the coronary circulations. Bones and soft tissues: The spine shows degenerative changes. No destructive bone lesion. Chest wall is unremarkable. Upper abdomen: Limited study through the upper abdomen demonstrates no interval changes. Localizer images: No additional findings. IMPRESSION: Interstitial lung disease. The pattern and distribution are compatible with UIP. Director Foundation: YURIDIA Transcribe Date/Time: Sep 24 2023 8:39A Dictated by : MIGUEL ROJO MD This examination was interpreted and the report reviewed and electronically signed by: MIGUEL ROJO MD on Sep 24 2023 12:05PM EST [id number] [facility] Jamie 09-15-2023 CNPN Telephone ([facility]) MERNA WEBSTER ([id number]) 1940 F NFR Date Time Provider Department 09/15/23 SONA GRIER [facility] During your visit today, we recorded the following information about you: Norma Mckeon RN 09/15/2023 7:45 AM Signed Patient returning call from office Please advise Lorene Jauregui LPN 09/15/2023 7:50 AM Signed No messages in chart from this office that patient was called recently. Looks like she has an appt for a scan in [place] this Thursday, may have been reminder call? Allergies As of Date: 09/15/2023 Noted Allergy Reaction ROFECOXIB 04/20/2002 9 - Itching Comments: heart palpitations,red blotching on face AMOXICILLIN 11/28/2022 5 - Intolerance Comments: Swelling in her eye. ASPIRIN 01/06/2001 Comments: heart palpitations DOXYCYCLINE 09/05/2022 8 - GI Upset IBUPROFEN 01/06/2001 Comments: face swells LISINOPRIL 07/10/2020 8 - GI Upset Comments: Acid reflux SEASONAL ALLERGIES 09/04/2020 5 - Intolerance SINGULAIR (MONTELUKAST SODIUM) 10/21/2017 2 - Rash SULFA (SULFONAMIDE ANTIBIOTICS) 01/06/2001 Comments: rash ZOLOFT (SERTRALINE) 11/28/2022 6 - Diarrhea Date Reviewed: 08/17/2023 Reviewed by: Cheyenne Roth, RT(R) - Fully Assessed Reason for Visit: return call [Other] Prescriptions as of 09/15/2023 - pirfenidone (ESBRIET) 801 mg tablet Take 1 tablet by mouth three times a day. - esomeprazole (NEXIUM) 40 mg capsule Take 1 capsule by mouth daily before breakfast. - nortriptyline (PAMELOR) 75 mg capsule Take 1 capsule by mouth daily at bedtime. - fluticasone (FLOVENT) 110 mcg/actuation inhaler Inhale 1 Puff as instructed two times a day. Shake well before use. Rinse mouth after use. - triamcinolone acetonide (KENALOG) 0.5 % cream Apply to affected area three times a day. - ALPRAZolam (XANAX) 1 mg tablet Take 1 tablet by mouth three times a day as needed for sedation or anxiety for up to 30 days. - levothyroxine (SYNTHROID) 75 mcg tablet Take 0.5 tablets by mouth once daily. - fluticasone (FLONASE) 50 mcg/actuation nasal spray Use 1 [place] in each nostril once daily. - gabapentin (NEURONTIN) 100 mg capsule TAKE 1 CAPSULE BY MOUTH 4 TIMES DAILY NEEDED - pravastatin (PRAVACHOL) 40 mg tablet take 1 tablet at bedtime - betamethasone valerate 0.1 % ointment Apply to affected area two times a day. - cloNIDine HCl (CATAPRES) 0.1 mg tablet take 1 tablet twice daily - verapamil SR (CALAN SR) 240 mg CR tablet Take 1 tablet by mouth daily at bedtime. - SUMAtriptan (IMITREX) 100 mg tablet Take 1 tablet (100 mg) by mouth as needed for migraine headache (see administration instructions). at onset of headache.May repeat after 2 hours. - CPAP/BIPAP/OTHER Type .CPAPSettings into a note to see current settings/supplies/DME information. - erythromycin (ROMYCIN) 5 mg/gram (0.5 %) ophthalmic ointment daily at bedtime. - levalbuterol tartrate HFA 45 mcg/actuation inhaler INHALE 1-2 PUFFS INSTRUCTED EVERY 4 HOURS NEEDED FOR WHEEZING/SHORTNESS OF BREATH. - fexofenadine (MARIA C) 180 mg tablet Take 180 mg by mouth as needed (Patient choice). - promethazine (PHENERGAN) 12.5 mg tablet Take 1 tablet by mouth every 6 hours as needed (Headache). - OXYGEN, HOME THERAPY, Please dispense an oxygen concentrator, a portable oxygen concentrator and all necessary accessories to be used at 2L/min NC with exertion and with sleep. - COMPOUNDED PRESCRIPTION Please dispense an oxygen concentrator and a portable oxygen concentrator and all necessary accessories to be used at 2L/min NC with exertion. - acetaminophen/caffeine (EXCEDRIN ASPIRIN FREE ORAL) Take 2 tablets by mouth as needed. - Inhalational Spacing Device (AEROCHAMBER) Spcr 1 Device as directed. Problem List As Of Date 09/15/2023 Noted Resolved Pure hypercholesterolemia [E78.00] 07/05/2002 Rotator cuff (capsule) sprain [S43.429A] 06/21/2003 07/22/2017 Recurrent major depressive disorder, in full re*05/21/2004 Asthma [J45.909] 05/21/2004 Essential hypertension [I10] 07/15/2005 OTHER PSORIASIS [L40.8] 09/04/2005 Primary osteoarthritis of hip [M16.10] 09/04/2005 Pes anserinus tendinitis or bursitis [ULP0547] 09/04/2005 07/22/2017 PLANTAR FIBROMATOSIS [M72.2] 09/04/2005 Backache, unspecified [M54.9] 09/24/2005 04/23/2017 Thoracic or lumbosacral neuritis or radiculitis*09/24/2005 07/22/2017 Pathologic fracture of vertebrae [M84.48XA] 10/13/2005 07/22/2017 Osteoporosis [M81.0] 10/13/2005 DIVERTICULOSIS OF COLON W/O BLEED [K57.30] osteoporosis [M89.9, M94.9] 04/23/2017 LUMB/LUMBOSAC DISC DEGEN [M51.37] CERVICALGIA [M54.2] 09/10/2007 Lumbago [M54.50] 09/10/2007 04/23/2017 Sprain of neck [S13.9XXA] 09/10/2007 07/22/2017 Unspecified sleep apnea [G47.30] 01/04/2008 07/22/2017 Apnea [R06.81] 12/05/2015 Ischemic colon (HCC) [K55.9] 06/02/2012 04/23/2017 Colonic (more content not included)... [facility] HIP, UNI W/ Pelvis 2-3 Views on 09-11-2023 HIP, UNI W/ Pelvis 2-3 Views [facility] [address] [place], [place] [id number] HIP, UNI W/ Pelvis 2-3 Views MR#: [id number] Acct: [id number] Name: MERNA WEBSTER Rep #: [id number] : 1940 F 83 From: Nikhil Sarabia MD PCP: Dr. Сергей Espinoza MD Status: REG CLI Study: HIP, UNI W/ Pelvis 2-3 Views Date of Exam: 02/22 Exam# [id number] Ordering [place]: [place] [id number] STUDY: X-RAY - PELVIS AND RIGHT HIP REASON FOR EXAM: Female, 83 years old. PAIN TECHNIQUE: 3 views of the pelvis and hip. COMPARISON: None. FINDINGS: There is a non-specific bowel gas pattern. Normal visualized soft tissue structures. Normal bilateral iliac wings, sacroiliac joints and visualized sacrum. Normal bilateral superior and inferior pubic rami. Normal pubic symphysis. Normal bilateral ischial tuberosities. There are osteoarthritic changes of the femoral head with marginal osteophyte formation. There is cortical sclerosis with sub-cortical cyst formation of the acetabulum. is severe articular joint space narrowing of the hip. 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 Electronically Signed: Nikhil Sarabia MD at 14:12 EDT , CC: Dr. Сергей Espinoza MD; Dr. Brayden Friend MD Director Foundation: Signed [facility] 08-17-2023 [facility] Telephone ([facility]) MERNA WEBSTER ([id number]) 1940 F NFR Date Time Provider Department 08/17/23 SONA GRIER [facility] During your visit today, we recorded the following information about you: Lorene JaureguiEDDIE 08/17/2023 10:46 AM Signed Fax received from [employer] - form for refills for esbriet through [employer] patient [facility] [place]. Form placed on dr grier's desk for review/signature. Elisabeth Barber MA 08/26/2023 11:50 AM Signed Form faxed back to [employer]. Transmission with forms in drawer. Allergies As of Date: 08/17/2023 Noted Allergy Reaction ROFECOXIB 04/20/2002 9 - Itching Comments: heart palpitations,red blotching on face AMOXICILLIN 11/28/2022 5 - Intolerance Comments: Swelling in her eye. ASPIRIN 01/06/2001 Comments: heart palpitations DOXYCYCLINE 09/05/2022 8 - GI Upset IBUPROFEN 01/06/2001 Comments: face swells LISINOPRIL 07/10/2020 8 - GI Upset Comments: Acid reflux SEASONAL ALLERGIES 09/04/2020 5 - Intolerance SINGULAIR (MONTELUKAST SODIUM) 10/21/2017 2 - Rash SULFA (SULFONAMIDE ANTIBIOTICS) 01/06/2001 Comments: rash ZOLOFT (SERTRALINE) 11/28/2022 6 - Diarrhea Date Reviewed: 08/17/2023 Reviewed by: Cheyenne Roth, (R) - Fully Assessed Reason for Visit: Forms [913] Cmt: [facility] - esbriet Prescriptions as of 08/26/2023 - esomeprazole (NEXIUM) 40 mg capsule Take 1 capsule by mouth daily before breakfast. - nortriptyline (PAMELOR) 75 mg capsule Take 1 capsule by mouth daily at bedtime. - fluticasone (FLOVENT) 110 mcg/actuation inhaler Inhale 1 Puff as instructed two times a day. Shake well before use. Rinse mouth after use. - triamcinolone acetonide (KENALOG) 0.5 % cream Apply to affected area three times a day. - ALPRAZolam (XANAX) 1 mg tablet Take 1 tablet by mouth three times a day as needed for sedation or anxiety for up to 30 days. - levothyroxine (SYNTHROID) 75 mcg tablet Take 0.5 tablets by mouth once daily. - fluticasone (FLONASE) 50 mcg/actuation nasal spray Use 1 [place] in each nostril once daily. - gabapentin (NEURONTIN) 100 mg capsule TAKE 1 CAPSULE BY MOUTH 4 TIMES DAILY NEEDED - pravastatin (PRAVACHOL) 40 mg tablet take 1 tablet at bedtime - betamethasone valerate 0.1 % ointment Apply to affected area two times a day. - pirfenidone (ESBRIET) 801 mg tablet take 1 tablet by mouth 3 times a day - cloNIDine HCl (CATAPRES) 0.1 mg tablet take 1 tablet twice daily - verapamil SR (CALAN SR) 240 mg CR tablet Take 1 tablet by mouth daily at bedtime. - SUMAtriptan (IMITREX) 100 mg tablet Take 1 tablet (100 mg) by mouth as needed for migraine headache (see administration instructions). at onset of headache.May repeat after 2 hours. - CPAP/BIPAP/OTHER Type .CPAPSettings into a note to see current settings/supplies/DME information. - erythromycin (ROMYCIN) 5 mg/gram (0.5 %) ophthalmic ointment daily at bedtime. - levalbuterol tartrate HFA 45 mcg/actuation inhaler INHALE 1-2 PUFFS INSTRUCTED EVERY 4 HOURS NEEDED FOR WHEEZING/SHORTNESS OF BREATH. - fexofenadine (MARIA C) 180 mg tablet Take 180 mg by mouth as needed (Patient choice). - promethazine (PHENERGAN) 12.5 mg tablet Take 1 tablet by mouth every 6 hours as needed (Headache). - OXYGEN, HOME THERAPY, Please dispense an oxygen concentrator, a portable oxygen concentrator and all necessary accessories to be used at 2L/min NC with exertion and with sleep. - COMPOUNDED PRESCRIPTION Please dispense an oxygen concentrator and a portable oxygen concentrator and all necessary accessories to be used at 2L/min NC with exertion. - acetaminophen/caffeine (EXCEDRIN ASPIRIN FREE ORAL) Take 2 tablets by mouth as needed. - Inhalational Spacing Device (AEROCHAMBER) Spcr 1 Device as directed. Problem List As Of Date 08/17/2023 Noted Resolved Pure hypercholesterolemia [E78.00] 07/05/2002 Rotator cuff (capsule) sprain [S43.429A] 06/21/2003 07/22/2017 Recurrent major depressive disorder, in full re*05/21/2004 Asthma [J45.909] 05/21/2004 Essential hypertension [I10] 07/15/2005 OTHER PSORIASIS [L40.8] 09/04/2005 Primary osteoarthritis of hip [M16.10] 09/04/2005 Pes anserinus tendinitis or bursitis [RXY0237] 09/04/2005 07/22/2017 PLANTAR FIBROMATOSIS [M72.2] 09/04/2005 Backache, unspecified [M54.9] 09/24/2005 04/23/2017 Thoracic or lumbosacral neuritis or radiculitis*09/24/2005 07/22/2017 Pathologic fracture of vertebrae [M84.48XA] 10/13/2005 07/22/2017 Osteoporosis [M81.0] 10/13/2005 DIVERTICULOSIS OF COLON W/O BLEED [K57.30] osteoporosis [M89.9, M94.9] 04/23/2017 LUMB/LUMBOSAC DISC DEGEN [M51.37] CERVICALGIA [M54.2] 09/10/2007 Lumbago [M54.50] 09/10/2007 04/23/2017 Sprain of neck [S13.9XXA] 09/10/2007 07/22/2017 Unspecified sleep apnea [G47.30] 01/04/2008 07/22/2017 Apnea [R06.81] 12/05/2015 Ischemic colon (HCC) [K55.9] 06/02/2012 04/23/2017 (more content not included)... Normal [facility] Jamie 07-22-2023 CNPN Telephone (IMMDNA) MERNA WEBSTER ([id number]) 1940 F NFR Date Time Provider Department 07/22/23 СЕРГЕЙ ESPINOZA IMMDNA During your visit today, we recorded the following information about you: Callie Taylor MA 07/22/2023 1:54 PM Signed Type of letter/form/fax request - Forms Form received from [facility] Placed on MD desk () for completion. Completed form needs to be faxed to [phone]. Route to ID when form completed for processing Сергей Espinoza MD 07/23/2023 1:05 PM Signed Forms completed. In outbox. Thanks MD Claudia El Sandra, MA 07/23/2023 2:52 PM Signed Request completed and faxed. Trudi Jordan 07/23/2023 4:14 PM Signed Char from [facility] is calling back and states that they did not receive the faxed form. Char asking to have the form faxed again. Char will be out of the office tomorrow. If you need to reach office, please contact Brinda Fernandez @ [phone] Callie Taylor MA 07/23/2023 4:27 PM Signed Re-faxed with successful transmission Allergies As of Date: 07/22/2023 Noted Allergy Reaction ROFECOXIB 04/20/2002 9 - Itching Comments: heart palpitations,red blotching on face AMOXICILLIN 11/28/2022 5 - Intolerance Comments: Swelling in her eye. ASPIRIN 01/06/2001 Comments: heart palpitations DOXYCYCLINE 09/05/2022 8 - GI Upset IBUPROFEN 01/06/2001 Comments: face swells LISINOPRIL 07/10/2020 8 - GI Upset Comments: Acid reflux SEASONAL ALLERGIES 09/04/2020 5 - Intolerance SINGULAIR (MONTELUKAST SODIUM) 10/21/2017 2 - Rash SULFA (SULFONAMIDE ANTIBIOTICS) 01/06/2001 Comments: rash ZOLOFT (SERTRALINE) 11/28/2022 6 - Diarrhea Date Reviewed: 07/09/2023 Reviewed by: Callie Taylor MA - Fully Assessed Reason for Visit: Forms [Other] Cmt: [facility] agency on aging on disabilities Prescriptions as of 07/23/2023 - esomeprazole (NEXIUM) 40 mg capsule Take 1 capsule by mouth daily before breakfast. - nortriptyline (PAMELOR) 75 mg capsule Take 1 capsule by mouth daily at bedtime. - fluticasone (FLOVENT) 110 mcg/actuation inhaler Inhale 1 Puff as instructed two times a day. Shake well before use. Rinse mouth after use. - triamcinolone acetonide (KENALOG) 0.5 % cream Apply to affected area three times a day. - ALPRAZolam (XANAX) 1 mg tablet Take 1 tablet by mouth three times a day as needed for sedation or anxiety for up to 30 days. - levothyroxine (SYNTHROID) 75 mcg tablet Take 0.5 tablets by mouth once daily. - fluticasone (FLONASE) 50 mcg/actuation nasal spray Use 1 [place] in each nostril once daily. - gabapentin (NEURONTIN) 100 mg capsule TAKE 1 CAPSULE BY MOUTH 4 TIMES DAILY NEEDED - pravastatin (PRAVACHOL) 40 mg tablet take 1 tablet at bedtime - betamethasone valerate 0.1 % ointment Apply to affected area two times a day. - pirfenidone (ESBRIET) 801 mg tablet take 1 tablet by mouth 3 times a day - cloNIDine HCl (CATAPRES) 0.1 mg tablet take 1 tablet twice daily - verapamil SR (CALAN SR) 240 mg CR tablet Take 1 tablet by mouth daily at bedtime. - SUMAtriptan (IMITREX) 100 mg tablet Take 1 tablet (100 mg) by mouth as needed for migraine headache (see administration instructions). at onset of headache.May repeat after 2 hours. - CPAP/BIPAP/OTHER Type .CPAPSettings into a note to see current settings/supplies/DME information. - erythromycin (ROMYCIN) 5 mg/gram (0.5 %) ophthalmic ointment daily at bedtime. - levalbuterol tartrate HFA 45 mcg/actuation inhaler INHALE 1-2 PUFFS INSTRUCTED EVERY 4 HOURS NEEDED FOR WHEEZING/SHORTNESS OF BREATH. - fexofenadine (MARIA C) 180 mg tablet Take 180 mg by mouth as needed (Patient choice). - promethazine (PHENERGAN) 12.5 mg tablet Take 1 tablet by mouth every 6 hours as needed (Headache). - OXYGEN, HOME THERAPY, Please dispense an oxygen concentrator, a portable oxygen concentrator and all necessary accessories to be used at 2L/min NC with exertion and with sleep. - COMPOUNDED PRESCRIPTION Please dispense an oxygen concentrator and a portable oxygen concentrator and all necessary accessories to be used at 2L/min NC with exertion. - acetaminophen/caffeine (EXCEDRIN ASPIRIN FREE ORAL) Take 2 tablets by mouth as needed. - Inhalational Spacing Device (AEROCHAMBER) Spcr 1 Device as directed. Problem List As Of Date 07/22/2023 Noted Resolved Pure hypercholesterolemia [E78.00] 07/05/2002 Rotator cuff (capsule) sprain [S43.429A] 06/21/2003 07/22/2017 Recurrent major depressive disorder, in full re*05/21/2004 Asthma [J45.909] 05/21/2004 Essential hypertension [I10] 07/15/2005 OTHER PSORIASIS [L40.8] 09/04/2005 Primary osteoarthritis of hip [M16.10] 09/04/2005 Pes anserinus tendinitis or bursitis [[id number]] 09/04/2005 07/22/2017 PLANTAR FIBROMATOSIS [M72.2] 09/04/2005 Backache, unspecified [M54.9] 0 (more content not included)... [facility] CNPNon 07-15-2023 CNPN Telephone (NIQ) MERNA WEBSTER ([id number]) 1940 F NFR Date Time Provider Department 07/15/23 NEUROLOGY PROVIDER NIQ During your visit today, we recorded the following information about you: Rachel George 07/16/2023 11:37 AM Signed Referral source: Brayden Murdock MD ([facility]) Reason for visit: chronic migraine evaluation External records: Sent with referral Triage: Not required Financial clearance: Not required to schedule Allergies As of Date: 07/15/2023 Noted Allergy Reaction ROFECOXIB 04/20/2002 9 - Itching Comments: heart palpitations,red blotching on face AMOXICILLIN 11/28/2022 5 - Intolerance Comments: Swelling in her eye. ASPIRIN 01/06/2001 Comments: heart palpitations DOXYCYCLINE 09/05/2022 8 - GI Upset IBUPROFEN 01/06/2001 Comments: face swells LISINOPRIL 07/10/2020 8 - GI Upset Comments: Acid reflux SEASONAL ALLERGIES 09/04/2020 5 - Intolerance SINGULAIR (MONTELUKAST SODIUM) 10/21/2017 2 - Rash SULFA (SULFONAMIDE ANTIBIOTICS) 01/06/2001 Comments: rash ZOLOFT (SERTRALINE) 11/28/2022 6 - Diarrhea Date Reviewed: 07/09/2023 Reviewed by: Callie Taylor MA - Fully Assessed Reason for Visit: Received Outside Medical Records [[id number]] Cmt: External referral to [facility] Prescriptions as of 07/16/2023 - nortriptyline (PAMELOR) 75 mg capsule Take 1 capsule by mouth daily at bedtime. - fluticasone (FLOVENT) 110 mcg/actuation inhaler Inhale 1 Puff as instructed two times a day. Shake well before use. Rinse mouth after use. - triamcinolone acetonide (KENALOG) 0.5 % cream Apply to affected area three times a day. - ALPRAZolam (XANAX) 1 mg tablet Take 1 tablet by mouth three times a day as needed for sedation or anxiety for up to 30 days. - levothyroxine (SYNTHROID) 75 mcg tablet Take 0.5 tablets by mouth once daily. - fluticasone (FLONASE) 50 mcg/actuation nasal spray Use 1 [place] in each nostril once daily. - gabapentin (NEURONTIN) 100 mg capsule TAKE 1 CAPSULE BY MOUTH 4 TIMES DAILY NEEDED - pravastatin (PRAVACHOL) 40 mg tablet take 1 tablet at bedtime - betamethasone valerate 0.1 % ointment Apply to affected area two times a day. - pirfenidone (ESBRIET) 801 mg tablet take 1 tablet by mouth 3 times a day - cloNIDine HCl (CATAPRES) 0.1 mg tablet take 1 tablet twice daily - verapamil SR (CALAN SR) 240 mg CR tablet Take 1 tablet by mouth daily at bedtime. - SUMAtriptan (IMITREX) 100 mg tablet Take 1 tablet (100 mg) by mouth as needed for migraine headache (see administration instructions). at onset of headache.May repeat after 2 hours. - esomeprazole (NEXIUM) 40 mg capsule TAKE 1 CAPSULE BY MOUTH DAILY BEFORE BREAKFAST. - CPAP/BIPAP/OTHER Type .CPAPSettings into a note to see current settings/supplies/DME information. - erythromycin (ROMYCIN) 5 mg/gram (0.5 %) ophthalmic ointment daily at bedtime. - levalbuterol tartrate HFA 45 mcg/actuation inhaler INHALE 1-2 PUFFS INSTRUCTED EVERY 4 HOURS NEEDED FOR WHEEZING/SHORTNESS OF BREATH. - fexofenadine (MARIA C) 180 mg tablet Take 180 mg by mouth as needed (Patient choice). - promethazine (PHENERGAN) 12.5 mg tablet Take 1 tablet by mouth every 6 hours as needed (Headache). - OXYGEN, HOME THERAPY, Please dispense an oxygen concentrator, a portable oxygen concentrator and all necessary accessories to be used at 2L/min NC with exertion and with sleep. - COMPOUNDED PRESCRIPTION Please dispense an oxygen concentrator and a portable oxygen concentrator and all necessary accessories to be used at 2L/min NC with exertion. - acetaminophen/caffeine (EXCEDRIN ASPIRIN FREE ORAL) Take 2 tablets by mouth as needed. - Inhalational Spacing Device (AEROCHAMBER) Spcr 1 Device as directed. Problem List As Of Date 07/15/2023 Noted Resolved Pure hypercholesterolemia [E78.00] 07/05/2002 Rotator cuff (capsule) sprain [S43.429A] 06/21/2003 07/22/2017 Recurrent major depressive disorder, in full re*05/21/2004 Asthma [J45.909] 05/21/2004 Essential hypertension [I10] 07/15/2005 OTHER PSORIASIS [L40.8] 09/04/2005 Primary osteoarthritis of hip [M16.10] 09/04/2005 Pes anserinus tendinitis or bursitis [MLK2406] 09/04/2005 07/22/2017 PLANTAR FIBROMATOSIS [M72.2] 09/04/2005 Backache, unspecified [M54.9] 09/24/2005 04/23/2017 Thoracic or lumbosacral neuritis or radiculitis*09/24/2005 07/22/2017 Pathologic fracture of vertebrae [M84.48XA] 10/13/2005 07/22/2017 Osteoporosis [M81.0] 10/13/2005 DIVERTICULOSIS OF COLON W/O BLEED [K57.30] osteoporosis [M89.9, M94.9] 04/23/2017 LUMB/LUMBOSAC DISC DEGEN [M51.37] CERVICALGIA [M54.2] 09/10/2007 Lumbago [M54.50] 09/10/2007 04/23/2017 Sprain of neck [S13.9XXA] 09/10/2007 07/22/2017 Unspecified sleep apnea [G47.30] 01/04/2008 07/22/2017 Apnea [R06.81] 12/05/2015 Ischemic colon (HCC) [K55.9] 06/02/2012 04/23/2017 Colonic (more content not included)... Normal [facility] CBC W Auto Differential pane l (Bld)on 07-14-2023 Basophils (Bld) [#/Vol] 0.06 10*3/uL Normal <0.11 [facility] Comment on above: Order Comment: Speci men Type: URINE SPECIMEN Ordering Facility: Address: [address] [place] [address] Performed By: #### 2 845-2 #### [facility] CLIA [id number] [address] [place] [address] [place] Basophils/100 WBC (Bld) 0.8 % Normal [facility] Comment on above: Order Comment: Speci men Type: URINE SPECIMEN Ordering Facility: Address: [address] [place] [address] Performed By: #### 2 695-9 #### [facility] CLIA [id number] [address] [place] [address] [place] Differential cell count method Nom (Bld) Auto Normal [facility] Comment on above: Order Comment: Speci men Type: URINE SPECIMEN Ordering Facility: Address: [address] [place] [address] Performed By: #### 2 825-7 #### [facility] CLIA [id number] [address] [place] [address] [place] Eosinophils (Bld) [#/Vol] 0.38 10*3/uL Normal <0.46 [facility] Comment on above: Order Comment: Speci men Type: URINE SPECIMEN Ordering Facility: Address: [address] [place] [address] Performed By: #### 2 695-5 #### [facility] CLIA [id number] [address] [place] [address] [place] Eosinophils/100 WBC (Bld) 5.1 % Normal [facility] Comment on above: Order Comment: Speci men Type: URINE SPECIMEN Ordering Facility: Address: [address] [place] [address] Performed By: #### 2 695-5 #### [facility] CLIA [id number] [address] [place] [address] [place] Erythrocyte distribution width (RBC) [Ratio] 12.3 % Normal 11.5-15.0 [facility] Comment on above: Order Comment: Speci men Type: URINE SPECIMEN Ordering Facility: Address: [address] [place] [address] Performed By: #### 2 695-5 #### [facility] CLIA [id number] [address] [place] [address] [place] Hematocrit (Bld) [Volume fraction] 35.2 % Low 36.0-46.0 [facility] Comment on above: Order Comment: Speci men Type: URINE SPECIMEN Ordering Facility: Address: [address] [place] [address] Performed By: #### 2 695-5 #### [facility] CLIA [id number] [address] [place] [address] [place] Hemoglobin (Bld) [Mass/Vol] 11.1 g/dL Low 11.5-15.5 [facility] Comment on above: Order Comment: Speci men Type: URINE SPECIMEN Ordering Facility: Address: [address] [place] [address] Performed By: #### 2 695-5 #### [facility] CLIA [id number] [address] [place] [address] [place] Immature granulocytes (Bld) [#/Vol] 0.03 10*3/uL Normal <0.10 [facility] Comment on above: Order Comment: Speci men Type: URINE SPECIMEN Ordering Facility: Address: [address] [place] [address] Performed By: #### 2 695-5 #### [facility] CLIA [id number] [address] [place] [address] [place] Immature granulocytes/100 WBC (Bld) 0.4 % Normal [facility] Comment on above: Order Comment: Speci men Type: URINE SPECIMEN Ordering Facility: Address: [address] [place] [address] Performed By: #### 2 695-5 #### [facility] CLIA [id number] [address] [place] [address] [place] Lymphocytes (Bld) [#/Vol] 1.40 10*3/uL Normal 1.00-4.00 [facility] Comment on above: Order Comment: Speci men Type: URINE SPECIMEN Ordering Facility: Address: [address] [place] [address] Performed By: #### 2 695-5 #### [facility] CLIA [id number] [address] [place] [address] [place] Lymphocytes/100 WBC (Bld) 18.8 % Normal [facility] Comment on above: Order Comment: Speci men Type: URINE SPECIMEN Ordering Facility: Address: [address] [place] [address] Performed By: #### 2 695-5 #### [facility] CLIA [id number] [address] [place] [address] [place] MCH (RBC) [Entitic mass] 32.4 pg Normal 26.0-34.0 [facility] Comment on above: Order Comment: Speci men Type: URINE SPECIMEN Ordering Facility: Address: [address] [place] [address] Performed By: #### 2 695-5 #### [facility] CLIA [id number] [address] [place] [address] [place] MCHC (RBC) [Mass/Vol] 31.5 g/dL Normal 30.5-36.0 [facility] Comment on above: Order Comment: Speci men Type: URINE SPECIMEN Ordering Facility: Address: [address] [place] [address] Performed By: #### 2 695-5 #### [facility] CLIA [id number] [address] [place] [address] [place] MCV (RBC) [Entitic vol] 102.6 fL High 80.0-100.0 C [facility] Comment on above: Order Comment: Speci men Type: URINE SPECIMEN Ordering Facility: Address: [address] [place] [address] Performed By: #### 2 695-5 #### [facility] CLIA [id number] [address] [place] [address] [place] Monocytes (Bld) [#/Vol] 0.80 10*3/uL Normal <0.87 [facility] Comment on above: Order Comment: Speci men Type: URINE SPECIMEN Ordering Facility: Address: [address] [place] [address] Performed By: #### 2 695-5 #### [facility] CLIA [id number] [address] [place] [address] [place] Monocytes/100 WBC (Bld) 10.7 % Normal [facility] Comment on above: Order Comment: Speci men Type: URINE SPECIMEN Ordering Facility: Address: [address] [place] [address] Performed By: #### 2 695-5 #### [facility] CLIA [id number] [address] [place] [address] [place] Neutrophils (Bld) [#/Vol] 4.78 10*3/uL Normal 1.45-7.50 [facility] Comment on above: Order Comment: Speci men Type: URINE SPECIMEN Ordering Facility: Address: [address] [place] [address] Performed By: #### 2 695-5 #### [facility] CLIA [id number] [address] [place] [address] [place] Neutrophils/100 WBC (Bld) 64.2 % Normal [facility] Comment on above: Order Comment: Speci men Type: URINE SPECIMEN Ordering Facility: Address: [address] [place] [address] Performed By: #### 2 695-5 #### [facility] CLIA [id number] [address] [place] [address] [place] Nucleated RBC (Bld) [#/Vol] 10*3/uL Normal <0.01 [facility] Comment on above: Order Comment: Speci men Type: URINE SPECIMEN Ordering Facility: Address: [address] [place] [address] Performed By: #### 2 695-5 #### [facility] CLIA [id number] [address] [place] [address] [place] Nucleated RBC/100 WBC (Bld) [Ratio] 0.0 /100 WBC Normal [facility] Comment on above: Order Comment: Speci men Type: URINE SPECIMEN Ordering Facility: Address: [address] [place] [address] Performed By: #### 2 695-5 #### [facility] CLIA [id number] [address] [place], [place] [id number] [place] Platelet mean volume (Bld) [Entitic vol] 9.6 fL Normal 9.0-12.7 [facility] Comment on above: Order Comment: Speci men Type: URINE SPECIMEN Ordering Facility: Address: [address] [place] [address] Performed By: #### 2 695-5 #### [facility] CLIA [id number] [address] [place] [address] [place] Platelets (Bld) [#/Vol] 235 10*3/uL Normal 150-400 [facility] Comment on above: Order Comment: Speci men Type: URINE SPECIMEN Ordering Facility: Address: [address] [place] [address] Performed By: #### 2 695-5 #### [facility] CLIA [id number] [address] [place] [address] [place] RBC (Bld) [#/Vol] 3.43 10*6/uL Low 3.90-5.20 [facility] Comment on above: Order Comment: Speci men Type: URINE SPECIMEN Ordering Facility: Address: [address] [place] [address] Performed By: #### 2 695-5 #### [facility] CLIA [id number] [address] [place], [place] [id number] [place] WBC (Bld) [#/Vol] 7.45 10*3/uL Normal 3.70-11.00 [facility] Comment on above: Order Comment: Speci men Type: URINE SPECIMEN Ordering Facility: Address: [address] [place] [address] Performed By: #### 2 695-5 #### [facility] CLIA [id number] [address] [place] [address] [place] Folate SerPl-mCncon 07-14-19 Folate [Mass/Vol] 19.2 ng/mL Normal >4.7 [facility] Comment on above: Order Comment: Speci men Type: BLOOD SPECIMENOrdering Facility: Address: [address] [place] [address] Performed By: #### 2 284-8 ####[facility] [id number] [place] [address] [place] Osmolality SerPlon Osmolality [Osmolality] 288 mosm/kg Normal 275-300 [facility] Comment on above: Order Comment: Speci men Type: URINE SPECIMEN Ordering Facility: Address: [address] [place] [address] Performed By: #### 2 695-5 #### [facility] CLIA [id number] [address] [place] [address] [place] Osmolality Uron 07-14-2023 Osmolality (U) [Osmolality] 331 mosm/kg Normal 50-1200 [facility] Comment on above: Order Comment: Speci men Type: URINE SPECIMEN Ordering Facility: Address: [address] [place] [address] Performed By: #### 2 695-5 #### [facility] CLIA [id number] [address] [place] [address] [place] Retics #on 07-14-2023 Reticulocytes (Bld) [#/Vol] 0.60299 10*3/uL Normal 0.018-0.100 [facility] Comment on above: Order Comment: Speci men Type: BLOOD SPECIMENOrdering Facility: Address: [address] [place] [address] Performed By: #### 5 7021-8, 23469-7 ####[facility] [id number] [place] [address] [place] Reticulocytes (Bld) [#/Vol]o n 07-14-2023 Reticulocytes/100 RBC (Bld) 1.5 % Normal 0.4-2.0 [facility] Comment on above: Order Comment: Speci men Type: BLOOD SPECIMENOrdering Facility: Address: [address] [place] [address] Performed By: #### 5 7021-8, 21824-4 ####[facility] [id number] [place] [address] [place] Sodium ?Tm Ur-sCncon 024 Sodium Unsp time (U) [Moles/Vol] 72 mmol/L Normal 14-216 [facility] Comment on above: Order Comment: Speci men Type: URINE SPECIMEN Ordering Facility: Address: [address] [place] [address] Performed By: #### 3 5678-2 #### [facility] CLIA [id number] [address] [place] [address] [place] Urinalysis complete panel (U )on 07-14-2023 Bacteria LM.HPF (Urine sed) [#/Area] Negative Normal Negative [facility] Comment on above: Order Comment: Speci men Type: URINE SPECIMENOrdering Facility: Address: [address] [place] [address] Performed By: #### 2 4356-8 ####[facility] LABCLIA [id number] [place] [address] [place] Bilirubin Ql (U) Negative Normal Negative [facility] Comment on above: Order Comment: Speci men Type: URINE SPECIMENOrdering Facility: Address: [address] [place] [address] Performed By: #### 2 4356-8 ####[facility] LABCLIA [id number] [place] [address] [place] Clarity (Unsp spec) Clear Normal Clear [facility] Comment on above: Order Comment: Speci men Type: URINE SPECIMENOrdering Facility: Address: [address] [place] [address] Performed By: #### 2 4356-8 ####[facility] LABCLIA [id number] [place] [address] [place] [facility] Color (U) Yellow Normal Yellow [facility] Comment on above: Order Comment: Speci men Type: URINE SPECIMENOrdering Facility: Address: [address] [place] [address] Performed By: #### 2 4356-8 ####[facility] LABCLIA [id number] [place] [address] [place] Epithelial cells LM.HPF (Urine sed) [#/Area] None Seen Normal [facility] Comment on above: Order Comment: Speci men Type: URINE SPECIMENOrdering Facility: Address: [address] [place] [address] Performed By: #### 2 4356-8 ####[facility] LABCLIA [id number] [place] [address] [place] [facility] Glucose Test strip (U) [Mass/Vol] Trace Abnormal Negative [facility] Comment on above: Order Comment: Speci men Type: URINE SPECIMENOrdering Facility: Address: [address] [place] [address] Performed By: #### 2 4356-8 ####[facility] LABCLIA [id number] [place] [address] [place] Hemoglobin Ql (U) Negative Normal Negative [facility] Comment on above: Order Comment: Speci men Type: URINE SPECIMENOrdering Facility: Address: [address] [place] [address] Performed By: #### 2 4356-8 ####[facility] LABCLIA [id number] [place] [address] [place] Hyaline casts (Urine sed) [#/Area] 0 /[LPF] Normal 0 /LPF [facility] Comment on above: Order Comment: Speci men Type: URINE SPECIMENOrdering Facility: Address: [address] [place] [address] Performed By: #### 2 4356-8 ####[facility] LABCLIA [id number] [place] [address] [place] Ketones Ql (U) Negative Normal Negative [facility] Comment on above: Order Comment: Speci men Type: URINE SPECIMENOrdering Facility: Address: [address] [place] [address] Performed By: #### 2 4356-8 ####[facility] LABCLIA [id number] [place] [address] [place] Leukocyte esterase Test strip Ql (U) Negative Normal Negative [facility] Comment on above: Order Comment: Speci men Type: URINE SPECIMENOrdering Facility: Address: [address] [place] [address] Performed By: #### 2 4356-8 ####[facility] LABCLIA [id number] [place] [address] [place] Nitrite Ql (U) Negative Normal Negative [facility] Comment on above: Order Comment: Speci men Type: URINE SPECIMENOrdering Facility: Address: [address] [place] [address] Performed By: #### 2 4356-8 ####[facility] LABCLIA [id number] [place] [address] [place] pH (U) 6.5 [pH] Normal <8.5 [facility] Comment on above: Order Comment: Speci men Type: URINE SPECIMENOrdering Facility: Address: [address] [place] [address] Performed By: #### 2 4356-8 ####[facility] LABCLIA [id number] [place] [address] [place] Protein (U) [Mass/Vol] Negative Normal Negative [facility] Comment on above: Order Comment: Speci men Type: URINE SPECIMENOrdering Facility: Address: [address] [place] [address] Performed By: #### 2 4356-8 ####[facility] LABIA [id number] [place] [address] [place] RBC LM.HPF (Urine sed) [#/Area] 0-2 /HPF Normal 0-2 /HPF [facility] Comment on above: Order Comment: Speci men Type: URINE SPECIMENOrdering Facility: Address: [address] [place] [address] Performed By: #### 2 4356-8 ####[facility] LABIA [id number] [place] [address] [place] Specific gravity (U) [Rel density] 1.013 Normal 1.005-1.030 [facility] Comment on above: Order Comment: Speci men Type: URINE SPECIMENOrdering Facility: Address: [address] [place] [address] Performed By: #### 2 4356-8 ####[facility] LABIA [id number] [place] [address] [place] Urobilinogen Ql (U) 0.2 EU/dL Normal 0.2-1.0 EU/dL [facility] Comment on above: Order Comment: Speci men Type: URINE SPECIMENOrdering Facility: Address: [address] [place] [address] Performed By: #### 2 4356-8 ####[facility] LABIA [id number] [place] [address] [place] WBC LM.HPF (Urine sed) [#/Area] 0-5 /HPF Normal 0-5 /HPF [facility] Comment on above: Order Comment: Speci men Type: URINE SPECIMENOrdering Facility: Address: [address] [place] [address] Performed By: #### 2 4356-8 ####[facility] LABCLIA [id number] [id number] [id number] [place] CNPNon 07-10-2023 CNPN Telephone (IMMDNA) MERNA WEBSTER ([id number]) 1940 F NFR Date Time Provider Department 07/10/23 СЕРГЕЙ ESPINOZA [facility] During your visit today, we recorded the following information about you: Сергей Espinoza MD 07/10/2023 1:10 PM Signed Please let patient know that his sodium is a little low. She may want to increase the salt in her diet or if she is drinking a lot of water to cut back. She has also developed an anemia. This upcoming Thursday or thursdayI would like the patient to get more lab work to check why she has the anemia and recheck her sodium. Thanks, MD Louisa El Jacqueline, RN 07/10/2023 2:14 PM Signed Spoke with pt, reviewed below message. Verbalized understanding, no further questions. Allergies As of Date: 07/10/2023 Noted Allergy Reaction ROFECOXIB 04/20/2002 9 - Itching Comments: heart palpitations,red blotching on face AMOXICILLIN 11/28/2022 5 - Intolerance Comments: Swelling in her eye. ASPIRIN 01/06/2001 Comments: heart palpitations DOXYCYCLINE 09/05/2022 8 - GI Upset IBUPROFEN 01/06/2001 Comments: face swells LISINOPRIL 07/10/2020 8 - GI Upset Comments: Acid reflux SEASONAL ALLERGIES 09/04/2020 5 - Intolerance SINGULAIR (MONTELUKAST SODIUM) 10/21/2017 2 - Rash SULFA (SULFONAMIDE ANTIBIOTICS) 01/06/2001 Comments: rash ZOLOFT (SERTRALINE) 11/28/2022 6 - Diarrhea Date Reviewed: 07/09/2023 Reviewed by: Callie Taylor MA - Fully Assessed Reason for Visit: Results [95] Primary Visit Diagnosis:Hyponatremia [E87.1] Other Visit Diagnosis:Anemia, unspecified type [D64.9] Order(s):SODIUM RANDOM URINE [SQUNAR] Order #: [id number] FUTURE OSMOLALITY URINE [SQUOSM] Order #: [id number] FUTURE OSMOLALITY [SQOSM] Order #: [id number] FUTURE COMPLETE BLOOD COUNT AND DIFFERENTIAL [SQCBCDIF] Order #: [id number] FUTURE RETICULOCYTE COUNT [SQRETIC] Order #: [id number] FUTURE FOLATE, SERUM [SQSERFOL] Order #: [id number] FUTURE Prescriptions as of 07/10/2023 - ALPRAZolam (XANAX) 1 mg tablet Take 1 tablet by mouth three times a day as needed for sedation or anxiety for up to 30 days. - levothyroxine (SYNTHROID) 75 mcg tablet Take 0.5 tablets by mouth once daily. - fluticasone (FLONASE) 50 mcg/actuation nasal spray Use 1 [place] in each nostril once daily. - gabapentin (NEURONTIN) 100 mg capsule TAKE 1 CAPSULE BY MOUTH 4 TIMES DAILY NEEDED - pravastatin (PRAVACHOL) 40 mg tablet take 1 tablet at bedtime - fluticasone (FLOVENT) 110 mcg/actuation inhaler Inhale 1 Puff as instructed two times a day. Shake well before use. Rinse mouth after use. - triamcinolone acetonide (KENALOG) 0.5 % cream Apply to affected area three times a day. - fluticasone furoate (ARNUITY ELLIPTA) 100 mcg/actuation inhaler Inhale 1 Puff as instructed once daily. - betamethasone valerate 0.1 % ointment Apply to affected area two times a day. - pirfenidone (ESBRIET) 801 mg tablet take 1 tablet by mouth 3 times a day - cloNIDine HCl (CATAPRES) 0.1 mg tablet take 1 tablet twice daily - verapamil SR (CALAN SR) 240 mg CR tablet Take 1 tablet by mouth daily at bedtime. - SUMAtriptan (IMITREX) 100 mg tablet Take 1 tablet (100 mg) by mouth as needed for migraine headache (see administration instructions). at onset of headache.May repeat after 2 hours. - esomeprazole (NEXIUM) 40 mg capsule TAKE 1 CAPSULE BY MOUTH DAILY BEFORE BREAKFAST. - CPAP/BIPAP/OTHER Type .CPAPSettings into a note to see current settings/supplies/DME information. - erythromycin (ROMYCIN) 5 mg/gram (0.5 %) ophthalmic ointment daily at bedtime. - levalbuterol tartrate HFA 45 mcg/actuation inhaler INHALE 1-2 PUFFS INSTRUCTED EVERY 4 HOURS NEEDED FOR WHEEZING/SHORTNESS OF BREATH. - nortriptyline (PAMELOR) 75 mg capsule TAKE 1 CAPSULE AT BEDTIME - fexofenadine (MARIA C) 180 mg tablet Take 180 mg by mouth as needed (Patient choice). - promethazine (PHENERGAN) 12.5 mg tablet Take 1 tablet by mouth every 6 hours as needed (Headache). - OXYGEN, HOME THERAPY, Please dispense an oxygen concentrator, a portable oxygen concentrator and all necessary accessories to be used at 2L/min NC with exertion and with sleep. - COMPOUNDED PRESCRIPTION Please dispense an oxygen concentrator and a portable oxygen concentrator and all necessary accessories to be used at 2L/min NC with exertion. - acetaminophen/caffeine (EXCEDRIN ASPIRIN FREE ORAL) Take 2 tablets by mouth as needed. - Inhalational Spacing Device (AEROCHAMBER) Spcr 1 Device as directed. Problem List As Of Date 07/10/2023 Noted Resolved Pure hypercholesterolemia [E78.00] 07/05/2002 Rotator cuff (capsule) sprain [S43.429A] 06/21/2003 07/22/2017 Recurrent major depressive disorder, in full re*05/21/2004 Asthma [J45.909] 05/21/2004 Essential hypertension [I10] 07/15/2005 OTHER PSORIASIS [L40.8] 09/04/2005 Primary (more content not included)... Normal [facility] CBC panel Auto (Bld)on 07-08 Erythrocyte distribution width (RBC) [Ratio] 12.6 % 11.5 - 15.0 % [facility] Hematocrit (Bld) [Volume fraction] 35.6 % Low 36.0 - 46.0 % [facility] Hemoglobin (Bld) [Mass/Vol] 11.1 g/dL Low 11.5 - 15.5 g/dL [facility] Interpretation and review of laboratory results Abnormal [facility] MCH (RBC) [Entitic mass] 32.6 pg 26.0 - 34.0 pg [facility] MCHC (RBC) [Mass/Vol] 31.2 g/dL 30.5 - 36.0 g/dL [facility] MCV (RBC) [Entitic vol] 104.4 fL High 80.0 - 100.0 fL [facility] Nucleated RBC (Bld) [#/Vol] NINF [facility] Platelet mean volume (Bld) [Entitic vol] 9.5 fL 9.0 - 12.7 fL [facility] Platelets (Bld) [#/Vol] 269 10*3/uL [facility] RBC (Bld) [#/Vol] 3.41 10*6/uL Low 3.90 - 5.2 0 m/uL [facility] WBC (Bld) [#/Vol] 7.86 10*3/uL [facility] Erythrocyte distribution width (RBC) [Ratio] 12.6 % Normal 11.5-15.0 [facility] Comment on above: Order Comment: Speci men Type: URINE SPECIMEN Ordering Facility: Address: [address] [place] [address] Performed By: #### 2 695-5 #### [facility] CLIA [id number] [address] [place] [address] [place] Hematocrit (Bld) [Volume fraction] 35.6 % Low 36.0-46.0 [facility] Comment on above: Order Comment: Speci men Type: URINE SPECIMEN Ordering Facility: Address: [address] [place] [address] Performed By: #### 2 695-5 #### [facility] CLIA [id number] [address] [place] [address] [place] Hemoglobin (Bld) [Mass/Vol] 11.1 g/dL Low 11.5-15.5 [facility] Comment on above: Order Comment: Speci men Type: URINE SPECIMEN Ordering Facility: Address: [address] [place] [address] Performed By: #### 2 695-5 #### [facility] CLIA [id number] [address] [place] [address] [place] MCH (RBC) [Entitic mass] 32.6 pg Normal 26.0-34.0 [facility] Comment on above: Order Comment: Speci men Type: URINE SPECIMEN Ordering Facility: Address: [address] [place] [address] Performed By: #### 2 695-5 #### [facility] CLIA [id number] [address] [place] [address] [place] MCHC (RBC) [Mass/Vol] 31.2 g/dL Normal 30.5-36.0 [facility] Comment on above: Order Comment: Speci men Type: URINE SPECIMEN Ordering Facility: Address: [address] [place] [address] Performed By: #### 2 695-5 #### [facility] CLIA [id number] [address] [place] [address] [place] MCV (RBC) [Entitic vol] 104.4 fL High 80.0-100.0 C [facility] Comment on above: Order Comment: Speci men Type: URINE SPECIMEN Ordering Facility: Address: [address] [place] [address] Performed By: #### 2 695-5 #### [facility] CLIA [id number] [address] [place] [address] [place] Nucleated RBC (Bld) [#/Vol] 10*3/uL Normal <0.01 [facility] Comment on above: Order Comment: Speci men Type: URINE SPECIMEN Ordering Facility: Address: [address] [place] [address] Performed By: #### 2 695-5 #### [facility] CLIA [id number] [address] [place] [address] [place] Platelet mean volume (Bld) [Entitic vol] 9.5 fL Normal 9.0-12.7 [facility] Comment on above: Order Comment: Speci men Type: URINE SPECIMEN Ordering Facility: Address: [address] [place] [address] Performed By: #### 2 695-5 #### [facility] CLIA [id number] [address] [place] [address] [place] Platelets (Bld) [#/Vol] 269 10*3/uL Normal 150-400 [facility] Comment on above: Order Comment: Speci men Type: URINE SPECIMEN Ordering Facility: Address: [address] [place] [address] Performed By: #### 2 695-5 #### [facility] CLIA [id number] [address] [place] [address] [place] RBC (Bld) [#/Vol] 3.41 10*6/uL Low 3.90-5.20 [facility] Comment on above: Order Comment: Speci men Type: URINE SPECIMEN Ordering Facility: Address: [address] [place] [address] Performed By: #### 2 695-5 #### [facility] CLIA [id number] [address] [place] [address] [place] WBC (Bld) [#/Vol] 7.86 10*3/uL Normal 3.70-11.00 [facility] Comment on above: Order Comment: Speci men Type: URINE SPECIMEN Ordering Facility: Address: [address] [place] [address] Performed By: #### 2 695-5 #### [facility] CLIA [id number] [address] [place], [place] [address] [address] [facility] CNOVon 07-09-2023 CNOV Office Visit (IMMDNA ) JAMILMERNA Ana ([id number]) 1940 F NFR Date Time Provider Department 07/09/23 8:00 AM СЕРГЕЙ ESPINOZA IMMDNA During your visit today, we recorded the following information about you: Temperature Pulse Respiration Blood pressure 97.1 degrees 82/minute 16/minute 130/80 Weight Height 62.2 kg 1.575 m Callie Taylor MA 07/09/2023 10:15 AM Signed RSV Vaccine(1 - 1-dose 60+ series) Never done Bone Density Screening due on 09/05/2007 Advance Directive Discussion due on 03/02/2023 Covid-19 Vaccine( season) due on 03/16/2023 Callie Taylor MA 07/09/2023 8:07 AM Signed [facility] LAB TEST INFORMATION [facility] BUILDING LAB HOURS: Lab is open: 7:30am to 5:00pm - , 7:30am to 4:00pm on Thu and 8am -12pm on Thu. The lab is located in [facility] on the first floor. There is a registration window at the lab, available 7 am to 3 pm Thursday - Thursday. If registration is unavailable at the lab, you may register at the patient registration office near the front lobby of the hospital. SCHEDULING A LAB APPOINTMENT: Laboratory appointments are recommended.Walk ins are still accepted. Call [phone] or schedule via [employer] scheduling ticket. ROUTINE LAB ORDERS 60 days after they are entered. If your lab orders , you may be required to wait in the lab while they are reinstated FUTURE ORDERS are lab tests to be completed on the ?EXPECTED? date. These orders 60 days after the expected date. STANDING ORDERS are recurring orders with an expiration date. The interval will indicate how often the test should be completed. CT / MRI / IVP If you have lab tests ordered for one of these radiology exams, please complete the blood work at least one day prior to the scheduled exam. PRESCRIPTION REFILL REQUESTS Request prescription refills through your [employer] account or contact your Pharmacy. My Chart Schedule My Appointment enables you to view your established primary care provider's open schedule and book an appointment online in real-time. This feature is available in internal medicine, family medicine, or pediatrics at any of our [facility] locations and main campus. Сергей Espinoza MD 07/09/2023 10:15 AM Signed ESTABLISHED PATIENT Merna Webster is a 83 year old female presenting for M[facility] Evaluation HISTORY OF PRESENT ILLNESS Patient is moving in to [place] [facility]. Happy to be moving in with her as they have been apart for over 1 year. Going to pain medicine in [place]. Has arthritis in the right hip. Has had 3 shots in the hip. That has helped. Started 100mg gabapentin four times per day. No side effects. Hypertension Follow up. Very labile in the past. Higher when she goes some place and her anxiety. Medication Adherence: no missed doses and took medications this morning Home monitorin/70s Heart palpitations: no Chest pain: no Last 3 Encounter BP Readings: Date: BP: 07/09/2023 130/80 06/30/2023 146/72 05/25/2023 132/80 Has ILD and asthma. Sees pulm. On 3L of Oxygen. Will have oxygen provided there. Doing ok Mood is stable. Takes xanax three times per day. No side effects. Hx of migraines. On nortriptyline. Headaches right now is going well. Thinks also gabapentin can help. 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 Works well. No side effects. Headaches doing better. Seeing pain management. BP stable. Continue current meds Continue inhaled medication Continue oxygen 3l. Can adjust as needed Euthyroid. Continue current dose Continue medications and injection for right hip Depression is stable. REVIEW OF SYSTEMS GENERAL: No weight loss, malaise or fevers PHYSICAL EXAM BP 130/80 Pulse 82 Temp 36.2 ?C (97.1 ?F) Resp 16 Ht 157.5 cm (5' 2") Wt 62.2 kg (137 lb 2 oz) SpO2 98% BMI 25.08 kg/m? General: Well developed, well nourished, in no acute distress. Head: Normocephalic, atraumatic. Neck: Supple. Eyes: Normal conjunctiva, no scleral icterus. Lungs: Basilar crackles Cardiac: Regular rate and rhythm. No murmurs, gallops, or rubs. Extremities: No edema. Allergies: ALLERGIES (more content not included)... Normal [facility] Comprehensive metabolic 2000 panelon 07-09-2023 Albumin [Mass/Vol] 3.8 g/dL Low 3.9 - 4.9 g/dL [facility] ALP [Catalytic activity/Vol] 90 U/L 34 - 123 U/L [facility] ALT [Catalytic activity/Vol] 11 U/L 7 - 38 U/L [facility] Anion gap [Moles/Vol] 7 mmol/L Low 9 - 18 mmol/L [facility] AST [Catalytic activity/Vol] 28 U/L 13 - 35 U/L [facility] Bilirubin [Mass/Vol] mg/dL Low 0.2 - 1 .3 mg/dL [facility] Calcium [Mass/Vol] 9.1 mg/dL 8.5 - 10. 2 mg/dL [facility] Chloride [Moles/Vol] 95 mmol/L Low 97 - 10 5 mmol/L [facility] CO2 [Moles/Vol] 31 mmol/L High 22 - 30 mmol/L [facility] Creatinine [Mass/Vol] 0.60 mg/dL 0.58 - 0.96 mg/dL [facility] GFR/1.73 sq M.predicted among non-blacks MDRD (S/P/Bld) [Vol rate/Area] 90 mL/min/{1.73_m2} - PINF [facility] Comment on above: Estimated Glomerular Filtration Rate (eGFR) is calculated using the 2020 CKD-EPI creatinine equation. This equation utilizes serum creatinine, sex, and age as parameters. The creatinine assay has traceable calibration to isotope dilution-mass spectrometry. Refer to KDIGO guidelines for clinical interpretation. In patients with unstable renal function, e.g. those with acute kidney injury, the eGFR may not accurately reflect actual GFR. Glucose [Mass/Vol] 108 mg/dL High 74 - 99 mg/dL [facility] Comment on above: The [place] Diabete s Association (ADA) provides guidance for cutoff values for fasting glucose and random glucose. The ADA defines fasting as no caloric intake for at least 8 hours. Fasting plasma glucose results between 100 to 125 mg/dL indicate increased risk for diabetes (prediabetes). Fasting plasma glucose results greater than or equal to 126 mg/dL meet the criteria for diagnosis of diabetes. In the absence of unequivocal hyperglycemia, results should be confirmed by repeat testing. In a patient with classic symptoms of hyperglycemia or hyperglycemic crisis, random plasma glucose results greater than or equal to 200 mg/dL meet the criteria for diagnosis of diabetes. Reference: Standards of Medical Care in Diabetes 2016, [place] Diabetes Association. Diabetes Care. 2016.39(Suppl 1). Interpretation and review of laboratory results Abnormal [facility] Potassium [Moles/Vol] 4.5 mmol/L 3.7 - 5.1 mmol/L [facility] Protein [Mass/Vol] 6.9 g/dL 6.3 - 8.0 g/dL [facility] Sodium [Moles/Vol] 133 mmol/L Low 136 - 144 mmol/L [facility] Urea nitrogen [Mass/Vol] 12 mg/dL 7 - 21 mg/dL [facility] Albumin [Mass/Vol] 3.8 g/dL Low 3.9-4.9 [place] Comment on above: Order Comment: Speci men Type: BLOOD SPECIMENOrdering Facility: Address: [address] [place] [address] Performed By: #### L IPNF, 43967-3 ####[facility]ORY[facility]IA [id number] [place] [address] [place] ALP [Catalytic activity/Vol] 90 U/L Normal 34-123 [facility] Comment on above: Order Comment: Speci men Type: BLOOD SPECIMENOrdering Facility: Address: [address] [place] [address] Performed By: #### L IPNF, 61348-5 ####[facility]ORYCLIA [id number] [place] [address] [place] ALT [Catalytic activity/Vol] 11 U/L Normal 7-38 [facility] Comment on above: Order Comment: Speci men Type: BLOOD SPECIMENOrdering Facility: Address: [address] [place] [address] Performed By: #### L IPNF, 71083-0 ####[facility]ORYCLIA [id number] [place] [address] [place] Anion gap [Moles/Vol] 7 mmol/L Low 9-18 [facility] Comment on above: Order Comment: Speci men Type: BLOOD SPECIMENOrdering Facility: Address: [address] [place] [address] Performed By: #### L IPNF, 42199-2 ####CHAHAL LABORATORYCLIA [id number] [place] [address] [place] AST [Catalytic activity/Vol] 28 U/L Normal 13-35 [facility] Comment on above: Order Comment: Speci men Type: BLOOD SPECIMENOrdering Facility: Address: [address] [place] [address] Performed By: #### L IPNF, 49235-7 ####CHAHAL LABORATORYCLIA [id number] [place] [address] [place] Bilirubin [Mass/Vol] mg/dL Low 0.2-1.3 [facility] Comment on above: Order Comment: Speci men Type: BLOOD SPECIMENOrdering Facility: Address: [address] [place] [address] Performed By: #### L IPNF, 94280-2 ####CHAHAL LABORATORYCLIA [id number] [place] [address] [place] Calcium [Mass/Vol] 9.1 mg/dL Normal 8.5-10.2 [place] Comment on above: Order Comment: Speci men Type: BLOOD SPECIMENOrdering Facility: Address: [address] [place] [address] Performed By: #### L IPNF, 93114-1 ####CHAHAL LABORATORYCLIA [id number] [place] [address] [place] Chloride [Moles/Vol] 95 mmol/L Low 97-105 [facility] Comment on above: Order Comment: Speci men Type: BLOOD SPECIMENOrdering Facility: Address: [address] [place] [address] Performed By: #### L IPNF, 27944-8 ####CHAHAL LABORATORYCLIA [id number] [place] [address] [place] CO2 [Moles/Vol] 31 mmol/L High 22-30 [facility] Comment on above: Order Comment: Speci men Type: BLOOD SPECIMENOrdering Facility: Address: [address] [place] [address] Performed By: #### L IPNF, 08147-5 ####CHAHAL LABORATORYCLIA [id number] [place] [id number] [place] Creatinine [Mass/Vol] 0.60 mg/dL Normal 0.58-0.96 [facility] Comment on above: Order Comment: Speci men Type: BLOOD SPECIMENOrdering Facility: Address: [address] [place] [address] Performed By: #### L IPNF, 34424-4 ####CHAHAL LABORATORYCLIA [id number] [place] [address] [place] Creatinine and Glomerular filtration rate.predicted panel (S/P/Bld) 90 mL/min/1.73m??? Normal >=60 [facility] Comment on above: Order Comment: Rj michel Type: BLOOD SPECIMENOrdering Facility: Address: [address] [place] [address] Result Comment: Arlen mated Glomerular Filtration Rate (eGFR) is calculated using the 2020 CKD-EPI creatinine equation. This equation utilizes serum creatinine, sex, and age as parameters. The creatinine assay has traceable calibration to isotope dilution-mass spectrometry. Refer to KDIGO guidelines for clinical interpretation. In patients with unstable renal function, e.g. those with acute kidney injury, the eGFR may not accurately reflect actual GFR. Performed By: #### L IPNF, 22368-7 ####CHAHAL LABORATORYCLIA [id number] [place] [id number] [place] Glucose [Mass/Vol] 108 mg/dL High 74-99 [place] Comment on above: Order Comment: Rj michel Type: BLOOD SPECIMENOrdering Facility: Address: [address] [place] [address] Result Comment: The [place] Diabetes Association (ADA) provides guidance for cutoff values for fasting glucose and random glucose. The ADA defines fasting as no caloric intake for at least 8 hours. Fasting plasma glucose results between 100 to 125 mg/dL indicate increased risk for diabetes (prediabetes). Fasting plasma glucose results greater than or equal to 126 mg/dL meet the criteria for diagnosis of diabetes. In the absence of unequivocal hyperglycemia, results should be confirmed by repeat testing. In a patient with classic symptoms of hyperglycemia or hyperglycemic crisis, random plasma glucose results greater than or equal to 200 mg/dL meet the criteria for diagnosis of diabetes. Reference: Standards of Medical Care in Diabetes 2016, [place] [employer] Association. Diabetes Care. 2016.39(Suppl 1). Performed By: #### L IPNF, 76713-8 ####CHAHAL LABORATORYCLIA [id number] [place] [id number] [place] Potassium [Moles/Vol] 4.5 mmol/L Normal 3.7-5.1 [facility] Comment on above: Order Comment: Rj michel Type: BLOOD SPECIMENOrdering Facility: Address: [address] [place] [address] Performed By: #### L IPNF, 28363-1 ####CHAHAL LABORATORYCLIA [id number] [place] [address] [place] Protein [Mass/Vol] 6.9 g/dL Normal 6.3-8.0 [place] Comment on above: Order Comment: Speci men Type: BLOOD SPECIMENOrdering Facility: Address: [address] [place] [address] Performed By: #### L IPNF, 24672-3 ####CHAHAL LABORATORYCLIA [id number] [place] [address] [place] Sodium [Moles/Vol] 133 mmol/L Low 136-144 [place] Comment on above: Order Comment: Speci men Type: BLOOD SPECIMENOrdering Facility: Address: [address] [place] [address] Performed By: #### L IPNF, 39155-6 ####CHAHAL LABORATORYCLIA [id number] [place] [address] [place] Urea nitrogen [Mass/Vol] 12 mg/dL Normal 7-21 [facility] Comment on above: Order Comment: Speci men Type: BLOOD SPECIMENOrdering Facility: Address: [address] [place] [address] Performed By: #### L IPNF, 77438-9 ####CHAHAL LABORATORYCLIA [id number] [place] [address] [place] LIPID PANEL, NONFASTINGon Cholesterol [Mass/Vol] 176 mg/dL NINF - 200 mg/dL [facility] Comment on above: <200 mg/dL, Desirabl e 200-239 mg/dL, Borderline high >239 mg/dL, High HDL Cholesterol, Nonfasting 64 mg/dL 39 - PINF mg/dL [facility] Comment on above: 40-59 mg/dL, Accepta ble >59 mg/dL, High: Negative risk factor for coronary heart disease <40 mg/dL, Low: Positive risk factor for coronary heart disease Interpretation and review of laboratory results Normal [facility] LDL Cholesterol, Nonfasting 97 mg/dL NINF - 100 mg/dL [facility] Comment on above: <100 mg/dL, Optimal 100-129 mg/dL, Near optimal/above optimal 130-159 mg/dL, Borderline high 160-189 mg/dL, High >189 mg/dL, Very high Secondary prevention optimal LDL Cholesterol levels are recommended to be < 70 mg/dL LDL/HDL Ratio, Nonfasting 1.52 mg/dL NINF - 2.54 mg/dL [facility] Comment on above: Reference: 1. National Cholesterol Education Program ATP III Guideline At-A-Glance Quick Desk Reference: National Heart, Lung, and Blood [place]. National Institutes of Health. 2001: NIH Publication No. 01-3305. 2. An International Atherosclerosis Society position paper: global recommendations for the management of dyslipidemia: executive summary, Atherosclerosis. 2014: 232(2):410-413. Non HDL Cholesterol, Nonfasting 112 mg/dL NINF - 130 mg/dL [facility] Comment on above: <130 mg/dL, Optimal 130-159 mg/dL, Near optimal/above optimal 160-189 mg/dL, Borderline high 190-219 mg/dL, High >219 mg/dL, Very high Secondary prevention optimal non HDL Cholesterol levels are recommended to be <100 mg/dL Total Chol/HDL Ratio, Nonfasting 2.75 mg/dL NINF - 5.10 mg/dL [facility] Triglycerides, Nonfasting 73 mg/dL [facility] mg/dL [facility] Comment on above: <150 mg/dL, Normal 150-199 mg/dL, Borderline high 200-499 mg/dL, High >499 mg/dL, Very high VLDL Cholesterol, Nonfasting 15 mg/dL NINF - 30 mg/dL [facility] Cholesterol [Mass/Vol] 176 mg/dL Normal <200 [facility] Comment on above: Order Comment: Speci men Type: BLOOD SPECIMENOrdering Facility: Address: [address] [place], [place] [id number] Result Comment: <200 mg/dL, Desirable 200-239 mg/dL, Borderline high >239 mg/dL, High Performed By: #### L IPNF, 04272-7 ####CHHAAL LABORATORYCLIA [id number] [place] [address] [place] HDL CHOLESTEROL, NF 64 mg/dL Normal >39 [facility] Comment on above: Order Comment: Rj anand Type: BLOOD SPECIMENOrdering Facility: Address: [address] [place] [address] Result Comment: 40-5 9 mg/dL, Acceptable >59 mg/dL, High: Negative risk factor for coronary heart disease <40 mg/dL, Low: Positive risk factor for coronary heart disease Performed By: #### L IPNF, 69560-2 ####CHAHAL LABORATORYCLIA [id number] [address] LDL CHOLESTEROL, NF 97 mg/dL Normal <100 [facility] Comment on above: Order Comment: Niurkai anand Type: BLOOD SPECIMENOrdering Facility: Address: [address] [place] [address] Result Comment: <100 mg/dL, Optimal 100-129 mg/dL, Near optimal/above optimal 130-159 mg/dL, Borderline high 160-189 mg/dL, High >189 mg/dL, Very high Secondary prevention optimal LDL Cholesterol levels are recommended to be < 70 mg/dL Performed By: #### L IPNF, 73807-0 ####CHAHAL LABORATORYCLIA [id number] [address] LDL/HDL RATIO, NF 1.52 mg/dL Normal <2.54 [facility] Comment on above: Order Comment: Rj anand Type: BLOOD SPECIMENOrdering Facility: Address: [address] [place] [address] Result Comment: Refe rence: 1. National Cholesterol Education Program ATP III Guideline At-A-Glance Quick Desk Reference: National Heart, Lung, and Blood [place]. National Institutes of Health. 2001: NIH Publication No. 01-3305. 2. An International Atherosclerosis Society position paper: global recommendations for the management of dyslipidemia: executive summary, Atherosclerosis. 2014: 232(2):410-413. Performed By: #### L IPNF, 35724-0 ####CHAHAL LABORATORYCLIA [id number] [address] NON HDL CHOL, NF 112 mg/dL Normal <130 [facility] Comment on above: Order Comment: Speci men Type: BLOOD SPECIMENOrdering Facility: Address: [address] [place] [address] Result Comment: <130 mg/dL, Optimal 130-159 mg/dL, Near optimal/above optimal 160-189 mg/dL, Borderline high 190-219 mg/dL, High >219 mg/dL, Very high Secondary prevention optimal non HDL Cholesterol levels are recommended to be <100 mg/dL Performed By: #### L IPNF, ####CHAHAL LABORATORYCLIA [id number] [address] T CHOL/HDL RATIO NF 2.75 mg/dL Normal <5.10 [facility] Comment on above: Order Comment: Speci men Type: BLOOD SPECIMENOrdering Facility: Address: [address] [place] [address] Performed By: #### L IPNF, ####CHAHAL LABORATORYCLIA [id number] [address] [facility], NF 73 mg/dL Normal <150 [facility] Comment on above: Order Comment: Speci men Type: BLOOD SPECIMENOrdering Facility: Address: [address] [place] [address] Result Comment: <150 mg/dL, Normal 150-199 mg/dL, Borderline high 200-499 mg/dL, High >499 mg/dL, Very high Performed By: #### L IPNF, ####CHAHAL LABORATORYCLIA [id number] [address] [place] VLDL CHOLESTEROL, NF 15 mg/dL Normal <30 [facility] Comment on above: Order Comment: Speci men Type: BLOOD SPECIMENOrdering Facility: Address: [address] [place] [address] Performed By: #### L IPNF, 02032-8 ####CHAHAL LABORATORYCLIA [id number] [address] [place] No Panel Informationon 07-08 [facility] T4 Free SerPl-mCncon 024 Free T4 [Mass/Vol] 1.3 ng/dL Normal 0.9-1.7 [place] Comment on above: Order Comment: Speci men Type: BLOOD SPECIMENOrdering Facility: Address: [address] [place] [address] Performed By: #### 3 024-7, 3016-3 ####[facility] LABCLIA [id number] [place] [address] [place] TSH SerPl-aCncon 07-01-2023 TSH Qn 1.680 m[IU]/L Normal 0.270-4.200 [facility] Comment on above: Order Comment: Speci men Type: BLOOD SPECIMENOrdering Facility: Address: [address] [place] [address] Performed By: #### 3 024-7, 3016-3 ####[facility] LABIA [id number] [address] [place] CNOVon 06-30-2023 CNOV Office Visit (CARDMM ) MERNA WEBSTER ([id number]) 1940 F NFR Date Time Provider Department 06/30/23 3:00 PM MOUNA BAEZ CARDMM During your visit today, we recorded the following information about you: Pulse Blood pressure Weight Height 76/minute 146/72 65.8 kg 1.575 m Mouna Baez, WEB PRODUCER.INSPECTOR [employer] 07/03/2023 12:57 PM [facility] [place] Shadia Newman Department of Cardiovascular Medicine SECTION OF CLINICAL CARDIOLOGY OUTPATIENT VISIT DATE June 30, 2023 OUTPATIENT VISIT TYPE ESTABLISHED Elements of this note, including but not limited to HPI, ROS, Physical Exam, Assessment and Plan were copied and pasted from previous office visit notes completed within our department. Updates have been made where appropriate/noted and reflect current exam and medical decision making from date of this visit. Patient Name: Merna Webster : 1940 PRIMARY CARE PHYSICIAN: Сергей Espinoza MD CHIEF COMPLAINT: Patient presents with: Established Patient Follow-Up: Follow up Pt reports episodes of "irregular" and "pounding". Interval Hx: Ms. Webster comes for a follow up visit. The last office visit visit with Dr. Johnson was 04/24/2023. Patient with 0 hospitalizations or ER visits since last OV. Since last office visit patient has been feeling ok. BP at home 1120-140's Has PCP follow up scheduled 07/16 Will get updated thyroid studies Less palpitations since zio came off No BB due to lung disease No Chest pain No increase in SOB from baseline - 2-3 liters ATC Compliant with CPAP Still with fatigue No LE edema No LE edema Appetite is good Water intake is good IMPRESSION/PLAN: ASSESSMENT/PLAN: 1. Essential hypertension - ICD9: 401.9, ICD10: I10 (primary diagnosis) - Home blood pressure readings controlled - Continue current medications for now. - if she has worsening sx of palpitations would stop Clonidine and changed to Diltiazem. - Recommend home blood pressure monitoring, to bring results to next visit - Encouraged sodium restriction, DASH or Mediterranean diet - Recommend regular aerobic exercise - Reviewed risks of hypertension and principles of treatment 2. Pure hypercholesterolemia - ICD9: 272.0, ICD10: E78.00 - Last FLP 04/2021 - LDL 77 - repeat as ordered by PCP 3. Chronic respiratory failure with hypoxia (HCC) - ICD9: 518.83, 799.02, ICD10: J96.11 - follows with pulm 4. Obstructive sleep apnea - ICD9: 327.23, ICD10: G47.33 - reports compliance with CPAP 5. Palpitations - ICD9: 785.1, ICD10: R00.2 - improved - recent zio: Average heart rate of 86 bpm with a minimum of 51 bpm, predominantly in sinus rhythm. 12 runs of SVT up to 7.6 seconds, up to 222 bpm. These appear to be asymptomatic. - patient feeling well currently and we agreed to not add any new meds as this time. Will revisit if she started to have recurrent sx. Patient instructions: Your heart monitor showed that you had some fast heart rates >>> this is not harmful but can feel bad. You report feeling better since having the monitor placed Since you are not having symptoms for the last month I would not do anything different for now. I think that as your thyroid control improves, we may see that you have less palpitations If you have recurrent symptoms >> I would recommend that we ween off Clonidine and change this to Diltiazem to help with the extra heart beats. I Will share my note with Dr. Espinoza I spent a total of 30 minutes on the date of the service which included preparing to see the patient, [id number] patient care, completing clinical documentation, performing a medically appropriate examination, counseling and educating the patient/family/caregive r, ordering medications, tests, or procedures, communicating with other HCPs (not separately reported), and communicating results to the patient/family/caregive r. Thank you very much for allowing me to assist in the care of Merna Webster. The above information was discussed at length and detail with the patient who verbalized an understanding of the plan and was given ample opportunity to ask questions. The appropriate follow up has been arranged. I have advised the patient to contact me if any questions/problems arise prior to the follow up. Mouna Baez APRN.[facility] Cardiology Nurse Practitioner Section of Regional Cardiology [place] Dept of Cardiovascular Medicine [facility] [place] [address] Office Office June 30, 2023 3:07 PM This note was partially generated using [employer] voice recognition system and may contain errors related to that system including grammar, punctuation, spelling, and words that may be inappropriate. CARDIAC S (more content not included)... Normal [facility] Jamie [facility]-19-20[facility] JAMIL,CAROLE L ([id number]) 1940 F NFR Date Time Provider Department 06/19/23 [facility] During your visit today, we recorded the following information about you: Elisabeth Barber MA 06/19/2023 10:28 AM Signed Orders from [facility] for A7039, A7034, A7038, A7036, A7037, A7046, A9279, E0562, E0601 A7035, A7032 all for c-pap supplies placed in Dr. Grier's in basket. Elisabeth Barber MA 06/22/2023 9:51 AM Signed Forms faxed back to [facility]. Transmission with forms in drawer. Allergies As of Date: 06/19/2023 Noted Allergy Reaction ROFECOXIB 04/20/2002 9 - Itching Comments: heart palpitations,red blotching on face AMOXICILLIN 11/28/2022 5 - Intolerance Comments: Swelling in her eye. ASPIRIN 01/06/2001 Comments: heart palpitations DOXYCYCLINE 09/05/2022 8 - GI Upset IBUPROFEN 01/06/2001 Comments: face swells LISINOPRIL 07/10/2020 8 - GI Upset Comments: Acid reflux SEASONAL ALLERGIES 09/04/2020 5 - Intolerance SINGULAIR (MONTELUKAST SODIUM) 10/21/2017 2 - Rash SULFA (SULFONAMIDE ANTIBIOTICS) 01/06/2001 Comments: rash ZOLOFT (SERTRALINE) 11/28/2022 6 - Diarrhea Date Reviewed: 05/25/2023 Reviewed by: Callie Taylor MA - Fully Assessed Reason for Visit: Orders [681] Prescriptions as of 06/22/2023 - ALPRAZolam (XANAX) 1 mg tablet Take 1 tablet by mouth three times a day as needed for sedation or anxiety for up to 30 days. - levothyroxine (SYNTHROID) 75 mcg tablet Take 0.5 tablets by mouth once daily. - fluticasone (FLOVENT) 110 mcg/actuation inhaler Inhale 1 Puff as instructed two times a day. Shake well before use. Rinse mouth after use. - triamcinolone acetonide (KENALOG) 0.5 % cream Apply to affected area three times a day. - fluticasone furoate (ARNUITY ELLIPTA) 100 mcg/actuation inhaler Inhale 1 Puff as instructed once daily. - fluticasone (FLONASE) 50 mcg/actuation nasal spray Use 1 [place] in each nostril once daily. - betamethasone valerate 0.1 % ointment Apply to affected area two times a day. - pirfenidone (ESBRIET) 801 mg tablet take 1 tablet by mouth 3 times a day - cloNIDine HCl (CATAPRES) 0.1 mg tablet take 1 tablet twice daily - METHOTREXATE ORAL Take by mouth. - verapamil SR (CALAN SR) 240 mg CR tablet Take 1 tablet by mouth daily at bedtime. - SUMAtriptan (IMITREX) 100 mg tablet Take 1 tablet (100 mg) by mouth as needed for migraine headache (see administration instructions). at onset of headache.May repeat after 2 hours. - esomeprazole (NEXIUM) 40 mg capsule TAKE 1 CAPSULE BY MOUTH DAILY BEFORE BREAKFAST. - CPAP/BIPAP/OTHER Type .CPAPSettings into a note to see current settings/supplies/DME information. - erythromycin (ROMYCIN) 5 mg/gram (0.5 %) ophthalmic ointment daily at bedtime. - levalbuterol tartrate HFA 45 mcg/actuation inhaler INHALE 1-2 PUFFS INSTRUCTED EVERY 4 HOURS NEEDED FOR WHEEZING/SHORTNESS OF BREATH. - nortriptyline (PAMELOR) 75 mg capsule TAKE 1 CAPSULE AT BEDTIME - pravastatin (PRAVACHOL) 40 mg tablet Take 1 tablet by mouth daily at bedtime. - VENTOLIN HFA 90 mcg/actuation inhaler Inhale 2 Puffs as instructed every 4 hours as needed. - fexofenadine (MARIA C) 180 mg tablet Take 180 mg by mouth as needed (Patient choice). - promethazine (PHENERGAN) 12.5 mg tablet Take 1 tablet by mouth every 6 hours as needed (Headache). - OXYGEN, HOME THERAPY, Please dispense an oxygen concentrator, a portable oxygen concentrator and all necessary accessories to be used at 2L/min NC with exertion and with sleep. - COMPOUNDED PRESCRIPTION Please dispense an oxygen concentrator and a portable oxygen concentrator and all necessary accessories to be used at 2L/min NC with exertion. - acetaminophen/caffeine (EXCEDRIN ASPIRIN FREE ORAL) Take 2 tablets by mouth as needed. - Inhalational Spacing Device (AEROCHAMBER) Spcr 1 Device as directed. Facility-Administered Medications as of 06/22/2023 - perflutren lipid microspheres 1.3 mL in NaCl (PF) 0.9% 10 mL injection (DEFINITY) - sodium chloride 0.9 % (flush) 10 mL (BD POSIFLUSH) Problem List As Of Date 06/19/2023 Noted Resolved Pure hypercholesterolemia [E78.00] 07/05/2002 Rotator cuff (capsule) sprain [S43.429A] 06/21/2003 07/22/2017 Recurrent major depressive disorder, in full re*05/21/2004 Asthma [J45.909] 05/21/2004 Essential hypertension [I10] 07/15/2005 OTHER PSORIASIS [L40.8] 09/04/2005 Primary osteoarthritis of hip [M16.10] 09/04/2005 Pes anserinus tendinitis or bursitis [XSG6552] 09/04/2005 07/22/2017 PLANTAR FIBROMATOSIS [M72.2] 09/04/2005 Backache, unspecified [M54.9] 09/24/2005 04/23/2017 Thoracic or lumbosacral neuritis or radiculitis*09/24/2005 07/22/2017 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 Normal [facility] Jamie 05-27-2023 [facility] MERNA WEBSTER ([id number]) 1940 F NFR Date Time Provider Department 05/27/23 СЕРГЕЙ ESPINOZA During your visit today, we recorded the following information about you: Cristina Jasso RN 05/27/2023 8:05 PM Signed Pt LM on nurse line stating after taking second dose of antibiotic starting having diarrhea and vomiting Called and spoke to pt Thursday morning took first dose. Took second dose after dinner Thursday. Had continuous vomiting and diarrhea after second dose for 1.5 hours. Feeling better now Drinking club soda and Pedialyte Sinus symptoms are not bothering her much right now. Takes Maria C as needed. Does not want to try another antibiotic at this point. Will let office know if sinus symptoms worsen. Just wanted to inform PCP she did not tolerate cefdinir very well Allergies As of Date: 05/27/2023 Noted Allergy Reaction ROFECOXIB 04/20/2002 9 - Itching Comments: heart palpitations,red blotching on face AMOXICILLIN 11/28/2022 5 - Intolerance Comments: Swelling in her eye. ASPIRIN 01/06/2001 Comments: heart palpitations DOXYCYCLINE 09/05/2022 8 - GI Upset IBUPROFEN 01/06/2001 Comments: face swells LISINOPRIL 07/10/2020 8 - GI Upset Comments: Acid reflux SEASONAL ALLERGIES 09/04/2020 5 - Intolerance SINGULAIR (MONTELUKAST SODIUM) 10/21/2017 2 - Rash SULFA (SULFONAMIDE ANTIBIOTICS) 01/06/2001 Comments: rash ZOLOFT (SERTRALINE) 11/28/2022 6 - Diarrhea Date Reviewed: 05/25/2023 Reviewed by: Callie Taylor MA - Fully Assessed Reason for Visit: Medication Problem [65] Prescriptions as of 05/27/2023 - levothyroxine (SYNTHROID) 75 mcg tablet Take 0.5 tablets by mouth once daily. - cefdinir (OMNICEF) 300 mg capsule Take 1 capsule by mouth two times a day for 10 days. - fluticasone (FLOVENT) 110 mcg/actuation inhaler Inhale 1 Puff as instructed two times a day. Shake well before use. Rinse mouth after use. - ALPRAZolam (XANAX) 1 mg tablet Take 1 tablet by mouth three times a day as needed for sedation or anxiety for up to 30 days. - triamcinolone acetonide (KENALOG) 0.5 % cream Apply to affected area three times a day. - fluticasone furoate (ARNUITY ELLIPTA) 100 mcg/actuation inhaler Inhale 1 Puff as instructed once daily. - fluticasone (FLONASE) 50 mcg/actuation nasal spray Use 1 [place] in each nostril once daily. - betamethasone valerate 0.1 % ointment Apply to affected area two times a day. - pirfenidone (ESBRIET) 801 mg tablet take 1 tablet by mouth 3 times a day - cloNIDine HCl (CATAPRES) 0.1 mg tablet take 1 tablet twice daily - METHOTREXATE ORAL Take by mouth. - verapamil SR (CALAN SR) 240 mg CR tablet Take 1 tablet by mouth daily at bedtime. - SUMAtriptan (IMITREX) 100 mg tablet Take 1 tablet (100 mg) by mouth as needed for migraine headache (see administration instructions). at onset of headache.May repeat after 2 hours. - esomeprazole (NEXIUM) 40 mg capsule TAKE 1 CAPSULE BY MOUTH DAILY BEFORE BREAKFAST. - CPAP/BIPAP/OTHER Type .CPAPSettings into a note to see current settings/supplies/DME information. - erythromycin (ROMYCIN) 5 mg/gram (0.5 %) ophthalmic ointment daily at bedtime. - levalbuterol tartrate HFA 45 mcg/actuation inhaler INHALE 1-2 PUFFS INSTRUCTED EVERY 4 HOURS NEEDED FOR WHEEZING/SHORTNESS OF BREATH. - nortriptyline (PAMELOR) 75 mg capsule TAKE 1 CAPSULE AT BEDTIME - pravastatin (PRAVACHOL) 40 mg tablet Take 1 tablet by mouth daily at bedtime. - VENTOLIN HFA 90 mcg/actuation inhaler Inhale 2 Puffs as instructed every 4 hours as needed. - fexofenadine (MARIA C) 180 mg tablet Take 180 mg by mouth as needed (Patient choice). - promethazine (PHENERGAN) 12.5 mg tablet Take 1 tablet by mouth every 6 hours as needed (Headache). - OXYGEN, HOME THERAPY, Please dispense an oxygen concentrator, a portable oxygen concentrator and all necessary accessories to be used at 2L/min NC with exertion and with sleep. - COMPOUNDED PRESCRIPTION Please dispense an oxygen concentrator and a portable oxygen concentrator and all necessary accessories to be used at 2L/min NC with exertion. - acetaminophen/caffeine (EXCEDRIN ASPIRIN FREE ORAL) Take 2 tablets by mouth as needed. - Inhalational Spacing Device (AEROCHAMBER) Spcr 1 Device as directed. Facility-Administered Medications as of 05/27/2023 - perflutren lipid microspheres 1.3 mL in NaCl (PF) 0.9% 10 mL injection (DEFINITY) - sodium chloride 0.9 % (flush) 10 mL (BD POSIFLUSH) Problem List As Of Date 05/27/2023 Noted Resolved Pure hypercholesterolemia [E78.00] 07/05/2002 Rotator cuff (capsule) sprain [S43.429A] 06/21/2003 07/22/2017 Recurrent major depressive disorder, in full re*05/21/2004 Asthma [J45.909] 05/21/2004 Essential hypertension [I10] 07/15/2005 OTHER PSORIASIS [L40.8] 09/04/2005 Primary osteoarthritis (more content not included)... Normal [facility] CNPNon 05-26-2023 CNPN Telephone ([facility]) MERNA WEBSTER ([id number]) 1940 F NFR Date Time Provider Department 05/26/23 СЕРГЕЙ ESPINOZA [facility] During your visit today, we recorded the following information about you: Сергей Espinoza MD 05/26/2023 9:18 AM Signed Please let patient know her TSH is high meaning she needs more levothyroxine. I increased the dose to 37.5mg. Unfortunately this dose doesn't come in a single pill form so I will prescribe 75 and she will need to cut in half. Repeat blood work ordered for 6 weeks. Thanks, MD Louisa El Jacqueline, RN 05/26/2023 1:01 PM Signed Spoke with pt, reviewed below message. Verbalized understanding, no further questions. Needs rx sent to Сергей Rendon MD 05/27/2023 2:50 PM Signed Rx sent Сергей Espinoza MD Allergies As of Date: 05/26/2023 Noted Allergy Reaction ROFECOXIB 04/20/2002 9 - Itching Comments: heart palpitations,red blotching on face AMOXICILLIN 11/28/2022 5 - Intolerance Comments: Swelling in her eye. ASPIRIN 01/06/2001 Comments: heart palpitations DOXYCYCLINE 09/05/2022 8 - GI Upset IBUPROFEN 01/06/2001 Comments: face swells LISINOPRIL 07/10/2020 8 - GI Upset Comments: Acid reflux SEASONAL ALLERGIES 09/04/2020 5 - Intolerance SINGULAIR (MONTELUKAST SODIUM) 10/21/2017 2 - Rash SULFA (SULFONAMIDE ANTIBIOTICS) 01/06/2001 Comments: rash ZOLOFT (SERTRALINE) 11/28/2022 6 - Diarrhea Date Reviewed: 05/25/2023 Reviewed by: Callie Taylor MA - Fully Assessed Reason for Visit: Results [95] Primary Visit Diagnosis:Macrocytosis [D75.89] Other Visit Diagnosis:Acquired hypothyroidism [E03.9] Order(s):T4 FREE/FREE THYROX [SQFT4] Order #: [id number] FUTURE TSH BLD [SQTSH] Order #: [id number] FUTURE VITAMIN B12 BLOOD [SQB12] Order #: [id number] FUTURE FOLATE SERUM [SQSERFOL] Order #: [id number] FUTURE levothyroxine (SYNTHROID) 75 mcg tabletTake 0.5 tablets by mouth once daily.Disp: 45 tabletRfl: 1 Prescriptions as of 05/27/2023 - levothyroxine (SYNTHROID) 75 mcg tablet Take 0.5 tablets by mouth once daily. - cefdinir (OMNICEF) 300 mg capsule Take 1 capsule by mouth two times a day for 10 days. - fluticasone (FLOVENT) 110 mcg/actuation inhaler Inhale 1 Puff as instructed two times a day. Shake well before use. Rinse mouth after use. - ALPRAZolam (XANAX) 1 mg tablet Take 1 tablet by mouth three times a day as needed for sedation or anxiety for up to 30 days. - triamcinolone acetonide (KENALOG) 0.5 % cream Apply to affected area three times a day. - fluticasone furoate (ARNUITY ELLIPTA) 100 mcg/actuation inhaler Inhale 1 Puff as instructed once daily. - fluticasone (FLONASE) 50 mcg/actuation nasal spray Use 1 [place] in each nostril once daily. - betamethasone valerate 0.1 % ointment Apply to affected area two times a day. - pirfenidone (ESBRIET) 801 mg tablet take 1 tablet by mouth 3 times a day - cloNIDine HCl (CATAPRES) 0.1 mg tablet take 1 tablet twice daily - METHOTREXATE ORAL Take by mouth. - verapamil SR (CALAN SR) 240 mg CR tablet Take 1 tablet by mouth daily at bedtime. - SUMAtriptan (IMITREX) 100 mg tablet Take 1 tablet (100 mg) by mouth as needed for migraine headache (see administration instructions). at onset of headache.May repeat after 2 hours. - esomeprazole (NEXIUM) 40 mg capsule TAKE 1 CAPSULE BY MOUTH DAILY BEFORE BREAKFAST. - CPAP/BIPAP/OTHER Type .CPAPSettings into a note to see current settings/supplies/DME information. - erythromycin (ROMYCIN) 5 mg/gram (0.5 %) ophthalmic ointment daily at bedtime. - levalbuterol tartrate HFA 45 mcg/actuation inhaler INHALE 1-2 PUFFS INSTRUCTED EVERY 4 HOURS NEEDED FOR WHEEZING/SHORTNESS OF BREATH. - nortriptyline (PAMELOR) 75 mg capsule TAKE 1 CAPSULE AT BEDTIME - pravastatin (PRAVACHOL) 40 mg tablet Take 1 tablet by mouth daily at bedtime. - VENTOLIN HFA 90 mcg/actuation inhaler Inhale 2 Puffs as instructed every 4 hours as needed. - fexofenadine (MARIA C) 180 mg tablet Take 180 mg by mouth as needed (Patient choice). - promethazine (PHENERGAN) 12.5 mg tablet Take 1 tablet by mouth every 6 hours as needed (Headache). - OXYGEN, HOME THERAPY, Please dispense an oxygen concentrator, a portable oxygen concentrator and all necessary accessories to be used at 2L/min NC with exertion and with sleep. - COMPOUNDED PRESCRIPTION Please dispense an oxygen concentrator and a portable oxygen concentrator and all necessary accessories to be used at 2L/min NC with exertion. - acetaminophen/caffeine (EXCEDRIN ASPIRIN FREE ORAL) Take 2 tablets by mouth as needed. - Inhalational Spacing Device (AEROCHAMBER) Spcr 1 Device as directed. Facility-Administered Medications as of 05/27/2023 - perflutren lipid microspheres 1.3 mL in NaCl (PF) 0.9% 10 mL injection (DEFINITY) - sodium chloride 0.9 % (flush (more content not included)... Normal [facility] Folate SerPl-mCncon 05-26-19 24 Folate [Mass/Vol] ng/mL Normal >4.7 [facility] Comment on above: Order Comment: Speci men Type: URINE SPECIMEN Ordering Facility: Address: [address] [place] [address] Result Comment: A re sult of > 20 ng/mL is not necessarily indicative of a pathologic or treatable condition: it reflects a limitation of the test methodology. Assay reference range: 4.8 to 24.2 ng/mL. Suitable for detection of folate deficiency. Reference: Folate III (Folate III) [package insert V 1.0 [place]]. [facility], [place], [place]: December 2014. Performed By: #### 2 695-5 #### [facility] [place] [id number] [address] [place] [address] [place] Vit B12 SerPl-mCncon 024 Cobalamin (Vitamin B12) [Mass/Vol] 866 pg/mL Normal 232-1245 [facility] Comment on above: Order Comment: Speci men Type: URINE SPECIMEN Ordering Facility: Address: [address] [place] [address] Performed By: #### 2 695-5 #### [facility] [place] [id number] [address] [place] [address] [place] Bacteria Ur Culton 4 Bacteria identified Cx Nom (U) ORGANISM ID: 1 10,000 -<50,000 CFU/ml Normal urogenital singh Normal [facility] Comment on above: Performed By: #### 6 30-4 ####[facility] [id number] [place] [address] [place] CBC panel Auto (Bld)on 05-24 Erythrocyte distribution width (RBC) [Ratio] 13.0 % Normal 11.5-15.0 [facility] Comment on above: Order Comment: Speci men Type: URINE SPECIMEN Ordering Facility: Address: [address] [place] [address] Performed By: #### 2 695-5 #### [facility] CLIA [id number] [address] [place] [address] [place] Hematocrit (Bld) [Volume fraction] 36.1 % Normal 36.0-46.0 [facility] Comment on above: Order Comment: Speci men Type: URINE SPECIMEN Ordering Facility: Address: [address] [place] [address] Performed By: #### 2 695-5 #### [facility] CLIA [id number] [address] [place] [address] [place] Hemoglobin (Bld) [Mass/Vol] 11.8 g/dL Normal 11.5-15.5 [facility] Comment on above: Order Comment: Speci men Type: URINE SPECIMEN Ordering Facility: Address: [address] [place] [address] Performed By: #### 2 695-5 #### [facility] CLIA [id number] [address] [place] [address] [place] MCH (RBC) [Entitic mass] 33.4 pg Normal 26.0-34.0 [facility] Comment on above: Order Comment: Speci men Type: URINE SPECIMEN Ordering Facility: Address: [address] [place] [address] Performed By: #### 2 695-5 #### [facility] CLIA [id number] [address] [place] [address] [place] MCHC (RBC) [Mass/Vol] 32.7 g/dL Normal 30.5-36.0 [facility] Comment on above: Order Comment: Speci men Type: URINE SPECIMEN Ordering Facility: Address: [address] [place] [address] Performed By: #### 2 695-5 #### [facility] CLIA [id number] [address] [place] [address] [place] MCV (RBC) [Entitic vol] 102.3 fL High 80.0-100.0 [facility] Comment on above: Order Comment: Speci men Type: URINE SPECIMEN Ordering Facility: Address: [address] [place] [address] Performed By: #### 2 695-5 #### [facility] CLIA [id number] [address] [place] [address] [place] Nucleated RBC (Bld) [#/Vol] 10*3/uL Normal <0.01 [facility] Comment on above: Order Comment: Speci men Type: URINE SPECIMEN Ordering Facility: Address: [address] [place] [address] Performed By: #### 2 695-5 #### [facility] CLIA [id number] [address] [place] [address] [place] Platelet mean volume (Bld) [Entitic vol] 9.5 fL Normal 9.0-12.7 [facility] Comment on above: Order Comment: Speci men Type: URINE SPECIMEN Ordering Facility: Address: [address] [place] [address] Performed By: #### 2 695-5 #### [facility] CLIA [id number] [address] [place] [address] [place] Platelets (Bld) [#/Vol] 239 10*3/uL Normal 150-400 [facility] Comment on above: Order Comment: Speci men Type: URINE SPECIMEN Ordering Facility: Address: [address] [place] [address] Performed By: #### 2 695-5 #### [facility] CLIA [id number] [address] [place] [address] [place] RBC (Bld) [#/Vol] 3.53 10*6/uL Low 3.90-5.20 [facility] Comment on above: Order Comment: Speci men Type: URINE SPECIMEN Ordering Facility: Address: [address] [place] [address] Performed By: #### 2 695-5 #### [facility] CLIA [id number] [address] [place] [address] [place] WBC (Bld) [#/Vol] 7.61 10*3/uL Normal 3.70-11.00 [facility] Comment on above: Order Comment: Speci men Type: URINE SPECIMEN Ordering Facility: Address: [address] [place] [address] Performed By: #### 2 695-5 #### [facility] CLIA [id number] [address] [place] [address] [place] CNOVon 05-25-2023 CNOV Office Visit ([facility] ) MERNA WEBSTER ([id number]) 1940 F NFR Date Time Provider Department 05/25/23 11:20 AM СЕРГЕЙ ESPINOZA [facility] During your visit today, we recorded the following information about you: Temperature Pulse Respiration Blood pressure 97.9 degrees 82/minute 16/minute 132/80 Weight Height 64.2 kg 1.575 m Callie Taylor MA 05/31/2023 9:42 PM Signed RSV Vaccine(1 - 1-dose 60+ series) Never done Advance Directive Discussion due on 03/02/2023 Covid-19 Vaccine(2022- season) due on 03/16/2023 Callie Taylor DANIEL 05/25/2023 11:28 AM Signed [facility] TEST INFORMATION [facility] LAB HOURS: Lab is open: 7:30am to 5:00pm - , 7:30am to 4:00pm on Thu and 8am -12pm on Thu. The lab is located in [facility] on the first floor. There is a registration window at the lab, available 7 am to 3 pm Thursday - Thursday. If registration is unavailable at the lab, you may register at the patient registration office near the front lobby of the hospital. SCHEDULING A LAB APPOINTMENT: Laboratory appointments are recommended.Walk ins are still accepted. Call [phone] or schedule via [employer] scheduling ticket. ROUTINE LAB ORDERS 60 days after they are entered. If your lab orders , you may be required to wait in the lab while they are reinstated FUTURE ORDERS are lab tests to be completed on the ?EXPECTED? date. These orders 60 days after the expected date. STANDING ORDERS are recurring orders with an expiration date. The interval will indicate how often the test should be completed. CT / MRI / IVP If you have lab tests ordered for one of these radiology exams, please complete the blood work at least one day prior to the scheduled exam. PRESCRIPTION REFILL REQUESTS Request prescription refills through your [employer] account or contact your Pharmacy. My Chart Schedule My Appointment enables you to view your established primary care provider's open schedule and book an appointment online in real-time. This feature is available in internal medicine, family medicine, or pediatrics at any of our [facility] locations and main campus. Сергей Espinoza MD 05/31/2023 9:42 PM Signed ESTABLISHED PATIENT Merna Webster is a 83 year old female presenting for Follow Up. HISTORY OF PRESENT ILLNESS Here with relative Patient thinks she has another UTI. Was recently in [place] ER. Had chills the other night. Has had a headache for 4 days. Having pressure in her head also. Runny nose. Takes maria c. Given amoxicillin. No side effects. Going to pain management for sciatica pain, bursitis. Also going ot get shots for migraines. Xanax is helping with the anxiety. Hypertension Follow up Medication Adherence: no missed doses and took medications this morning Home monitoring: Up and down at home. Usually 130-140s at home. Heart palpitations: no Chest pain: no Last 3 Encounter BP Readings: Date: BP: 05/25/2023 132/80 04/23/2023 160/80 03/24/2023 157/76 Hoping to get into care home this summer. Has some issues with ADLs. 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 Unable to clean. Able to feed herself. Cooks in the microwave. Recent Labs: WBC 7.57 08/22/2022 Hemoglobin 11.8 08/22/2022 Hematocrit 35.7 08/22/2022 Platelet Count 233 08/22/2022 Sodium 139 08/22/2022 Potassium 4.3 08/22/2022 Creatinine 0.61 08/22/2022 BUN 11 08/22/2022 eGFR, >60 02/18/2012 eGFR-All Other Races 90 08/22/2022 Glucose 98 08/22/2022 Calcium 9.3 08/22/2022 Hemoglobin A1C 6.1 09/17/2020 LDL Cholesterol 77 05/30/2021 HDL Cholesterol 61 05/30/2021 Cholesterol, Total 166 05/30/2021 Triglyceride 141 05/30/2021 AST 16 08/22/2022 ALT 10 08/22/2022 Alkaline Phosphatase 94 08/22/2022 TSH 2.480 08/22/2022 CrCl cannot be calculated (Patient's most recent lab result is older than the maximum 180 days allowed.). ASSESSMENT: (R30.0) Dysuria (primary encounter diagnosis) (J01.00) Acute non-recurrent maxillary sinusitis (I10) Essential hypertension (F33.42) Recurrent major depressive disorder, in full remission (HCC) (E03.9) Acquired hypothyroidism PLAN: Check for UTI Cefdinir for sinusitis BP stable. Continue current meds Depression stable. Xanax for anxiety. Continue meds Euthyroid HISTORIES FAMILY HISTORY Problem Relation Age of Onset other (Kidney stones) Father COPD Sister Diabetes Brother Colon Cancer Brother Hypertension Brother PAST MEDICAL HISTORY Diagnosis Date Apnea cpap Asthma Asthma Bowel disease Degeneration of lumbar or lumbosacral intervertebral disc significant Diverticulosis of colon (without mention of hemorrhage) Dysthymic disorder Depression (non-psychotic) Esophageal reflux Gastroesophageal reflux Hypothyroidi (more content not included)... Normal [facility] Comprehensive metabolic 2000 panelon 05-25-2023 Albumin [Mass/Vol] 4.2 g/dL Normal 3.9-4.9 [place] Comment on above: Order Comment: Speci men Type: BLOOD SPECIMENOrdering Facility: Address: [facility] [place] [address] Performed By: #### 3 016-3, 09707-2 ####[facility] [id number] [place] [address] [place] ALP [Catalytic activity/Vol] 78 U/L Normal 34-123 [facility] Comment on above: Order Comment: Speci men Type: BLOOD SPECIMENOrdering Facility: Address: [address] [place] [address] Performed By: #### 3 016-3, 23687-2 ####[facility]ORYCLIA [id number] [address] STATES [facility] ALT [Catalytic activity/Vol] 12 U/L Normal 7-38 [facility] Comment on above: Order Comment: Speci men Type: BLOOD SPECIMENOrdering Facility: Address: [address] [place] [address] Performed By: #### 3 016-3, 94249-3 ####[facility]ATORYCLIA [id number] [place] [address] [place] Anion gap [Moles/Vol] 7 mmol/L Low 9-18 [facility] Comment on above: Order Comment: Speci men Type: BLOOD SPECIMENOrdering Facility: Address: [address] [place] [address] Performed By: #### 3 016-3, 04018-2 ####[facility]ORYCLIA [id number] [place] [address] [place] AST [Catalytic activity/Vol] 18 U/L Normal 13-35 [facility] Comment on above: Order Comment: Speci men Type: BLOOD SPECIMENOrdering Facility: Address: [address] [place] [address] Performed By: #### 3 016-3, ####[facility]ATORYCLIA [id number] [place] [address] [place] Bilirubin [Mass/Vol] 0.2 mg/dL Normal 0.2-1.3 [facility] Comment on above: Order Comment: Speci men Type: BLOOD SPECIMENOrdering Facility: Address: [address] [place] [address] Performed By: #### 3 -3, ####[facility]ATORYCLIA [id number] [place] [address] [place] Calcium [Mass/Vol] 9.5 mg/dL Normal 8.5-10.2 [facility] Comment on above: Order Comment: Speci men Type: BLOOD SPECIMENOrdering Facility: Address: [address] [place] [address] Performed By: #### 3 -3, ####[facility]ORYCLIA [id number] [place] [address] [place] Chloride [Moles/Vol] 96 mmol/L Low 97-105 [facility] Comment on above: Order Comment: Speci men Type: BLOOD SPECIMENOrdering Facility: Address: [address] [place] [address] Performed By: #### 3 -3, ####[facility]ATORYCLIA [id number] [place] [address] [place] CO2 [Moles/Vol] 32 mmol/L High 22-30 [facility] Comment on above: Order Comment: Speci men Type: BLOOD SPECIMENOrdering Facility: Address: [address] [place] [address] Performed By: #### 3 016-3, 69139-0 ####[facility]ATORYCLIA [id number] [place] [address] [place] Creatinine [Mass/Vol] 0.61 mg/dL Normal 0.58-0.96 [facility] Comment on above: Order Comment: Rj michel Type: BLOOD SPECIMENOrdering Facility: Address: [address] [place] [address] Performed By: #### 3 016-3, 59635-8 ####[facility]ATORYCLIA [id number] [place] [id number] [place] Creatinine and Glomerular filtration rate.predicted panel (S/P/Bld) 89 mL/min/1.73m??? Normal >=60 [facility] Comment on above: Order Comment: Rj michel Type: BLOOD SPECIMENOrdering Facility: Address: [address] [place] [address] Result Comment: Arlen mated Glomerular Filtration Rate (eGFR) is calculated using the 2020 CKD-EPI creatinine equation. This equation utilizes serum creatinine, sex, and age as parameters. The creatinine assay has traceable calibration to isotope dilution-mass spectrometry. Refer to KDIGO guidelines for clinical interpretation. In patients with unstable renal function, e.g. those with acute kidney injury, the eGFR may not accurately reflect actual GFR. Performed By: #### 3 016-3, 53092-8 ####[facility]ORYCLIA [id number] [place] [id number] [place] Glucose [Mass/Vol] 104 mg/dL High 74-99 [place] Comment on above: Order Comment: Rj michel Type: BLOOD SPECIMENOrdering Facility: Address: [address] [place] [address] Result Comment: The [place] Diabetes Association (ADA) provides guidance for cutoff values for fasting glucose and random glucose. The ADA defines fasting as no caloric intake for at least 8 hours. Fasting plasma glucose results between 100 to 125 mg/dL indicate increased risk for diabetes (prediabetes). Fasting plasma glucose results greater than or equal to 126 mg/dL meet the criteria for diagnosis of diabetes. In the absence of unequivocal hyperglycemia, results should be confirmed by repeat testing. In a patient with classic symptoms of hyperglycemia or hyperglycemic crisis, random plasma glucose results greater than or equal to 200 mg/dL meet the criteria for diagnosis of diabetes. Reference: Standards of Medical Care in Diabetes 2016, [place] Diabetes Association. Diabetes Care. 2016.39(Suppl 1). Performed By: #### 3 016-3, 18172-3 ####[facility]ATORYCLIA [id number] [place] [address] [place] Potassium [Moles/Vol] 3.8 mmol/L Normal 3.7-5.1 [facility] Comment on above: Order Comment: Speci men Type: BLOOD SPECIMENOrdering Facility: Address: [address] [place] [address] Performed By: #### 3 3, ####[facility]ATORYCLIA [id number] [place] [address] [place] Protein [Mass/Vol] 6.9 g/dL Normal 6.3-8.0 [place] Comment on above: Order Comment: Speci men Type: BLOOD SPECIMENOrdering Facility: Address: [address] [place] [address] Performed By: #### 3 3, 40062-7 ####[facility]ATORYCLIA [id number] [place] [address] [place] Sodium [Moles/Vol] 135 mmol/L Low 136-144 [facility] Comment on above: Order Comment: Speci men Type: BLOOD SPECIMENOrdering Facility: Address: [address] [place] [address] Performed By: #### 3 3, 71146-3 ####[facility]ORYCLIA [id number] [place] [address] [place] Urea nitrogen [Mass/Vol] 9 mg/dL Normal 7-21 [facility] Comment on above: Order Comment: Speci men Type: BLOOD SPECIMENOrdering Facility: Address: [address] [place] [address] Performed By: #### 3 -3, 92798-4 ####[facility]ATORYCLIA [id number] [place] [address] [place] T4 Free SerPl-mCncon 024 Free T4 [Mass/Vol] 0.8 ng/dL Low 0.9-1.7 [facility] Comment on above: Order Comment: Speci men Type: URINE SPECIMEN Ordering Facility: Address: [address] [place] [address] Performed By: #### 2 695-5 #### [facility] CLIA [id number] [address] [place] [address] [place] TSH SerPl-aCncon 05-25-2023 TSH Qn 8.320 m[IU]/L High 0.270-4.200 [facility] Comment on above: Order Comment: Speci men Type: BLOOD SPECIMENOrdering Facility: Address: [address] [place] [address] Performed By: #### 3 016-3, 37806-1 ####[facility]ORY[facility]IA [id number] [place] [address] [place] URINALYSIS, REFLEX MICROSCOP ICon 05-25-2023 Bilirubin Ql (U) Negative Normal Negative [facility] Comment on above: Order Comment: Speci men Type: URINE SPECIMEN Ordering Facility: Address: [address] [place] [address] Performed By: #### 2 695-5 #### [facility] CLIA [id number] [address] [place] [address] [place] Clarity (Unsp spec) Clear Normal Clear [facility] Comment on above: Order Comment: Speci men Type: URINE SPECIMEN Ordering Facility: Address: [address] [place] [address] Performed By: #### 2 695-5 #### [facility] CLIA [id number] [address] [place] [address] [place] Color (U) Yellow Normal Yellow [facility] Comment on above: Order Comment: Speci men Type: URINE SPECIMEN Ordering Facility: Address: [address] [place] [address] Performed By: #### 2 695-5 #### [facility] CLIA [id number] [address] [place] [address] [place] Glucose Test strip (U) [Mass/Vol] Negative Normal Negative [facility] Comment on above: Order Comment: Speci men Type: URINE SPECIMEN Ordering Facility: Address: [address] [place] [address] Performed By: #### 2 695-5 #### [facility] CLIA [id number] [address] [place] [address] [place] Hemoglobin Ql (U) Negative Normal Negative [facility] Comment on above: Order Comment: Speci men Type: URINE SPECIMEN Ordering Facility: Address: [address] [place] [address] Performed By: #### 2 695-5 #### [facility] CLIA [id number] [address] [place] [address] [place] Ketones Ql (U) Negative Normal Negative [facility] Comment on above: Order Comment: Speci men Type: URINE SPECIMEN Ordering Facility: Address: [address] [place] [address] Performed By: #### 2 695-5 #### [facility] CLIA [id number] [address] [place] [address] [place] Leukocyte esterase Test strip Ql (U) Negative Normal Negative [facility] Comment on above: Order Comment: Speci men Type: URINE SPECIMEN Ordering Facility: Address: [address] [place] [address] Performed By: #### 2 695-5 #### [facility] CLIA [id number] [address] [place] [address] [place] Nitrite Ql (U) Negative Normal Negative [facility] Comment on above: Order Comment: Speci men Type: URINE SPECIMEN Ordering Facility: Address: [address] [place] [address] Performed By: #### 2 695-5 #### [facility] CLIA [id number] [address] [place] [address] [place] pH (U) 6.5 [pH] Normal 5.0-8.0 [facility] Comment on above: Order Comment: Speci men Type: URINE SPECIMEN Ordering Facility: Address: [address] [place] [address] Performed By: #### 2 695-5 #### [facility] CLIA [id number] [address] [place] [address] [place] Protein (U) [Mass/Vol] Negative Normal Negative [facility] Comment on above: Order Comment: Speci men Type: URINE SPECIMEN Ordering Facility: Address: [address] [place] [address] Performed By: #### 2 695-5 #### [facility] CLIA [id number] [address] [place] [address] [place] Specific gravity (U) [Rel density] 1.010 Normal 1.005-1.030 [facility] Comment on above: Order Comment: Speci men Type: URINE SPECIMEN Ordering Facility: Address: [address] [place] [address] Performed By: #### 2 695-5 #### [facility] CLIA [id number] [address] [place] [address] [place] Urobilinogen Ql (U) 0.2 EU/dL Normal 0.2-1.0 EU/dL [facility] Comment on above: Order Comment: Speci men Type: URINE SPECIMEN Ordering Facility: Address: [address] [place] [address] Performed By: #### 2 695-5 #### [facility] VITALIY [id number] [address] [place], [place] [address] [address] [place] CNOVon 04-23-2023 CNOV Office Visit (LEVON ) MERNA WEBSTER ([id number]) 1940 F NFR Date Time Provider Department 04/23/23 3:00 PM IGOR JOHNSON During your visit today, we recorded the following information about you: Pulse Blood pressure Weight Height 83/minute 160/80 64.2 kg 1.575 m Igor Johnson DO 04/24/2023 9:54 AM Signed [facility] OUTPATIENT VISIT DATE April 23, 2023 PRIMARY CARE PHYSICIAN: Сергей Espinoza [address] [place] [address] HISTORY OF PRESENT ILLNESS: Ms. Webster is a 83 year old female. The patient was seen and evaluated today for dyspnea occurring with exertion abating with rest but worsens at time of stress, anxiety or worsening of her known interstitial lung disease. She is limited in her movement due to a bad right hip which is unable to be operated on as a result of her lung disease. She denies chest discomfort, orthopnea, paroxysmal nocturnal dyspnea, near-syncope or syncope. She has palpitations occurring for several minutes up to 3-4 times per week and anxiety problems situations, episodes of loneliness/depression and extremes of exertion. There were no other associated symptoms other than her dyspnea at times. The patient is over 60 years but lives currently alone as her resides in a care home due to challenges with him having inability to walk. She has never smoked nor drank. 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 She is retired. Her niece accompanies her today. Cardiac risk factors: Age, gender, hypertension, hyperlipidemia Impression: 1. Dyspnea exertion 2. Palpitations 3. Hypertension 4. Hyperlipidemia 5. Severe interstitial lung disease on chronic oxygen 6. History obstructive sleep apnea 7. History of anxiety and actually chronic palpitations 8. Advanced directive stating that she is a DO NOT RESUSCITATE. PLAN AND RECOMMENDATIONS: Patient has symptoms more likely associated with her lung disease. She had a relatively normal echocardiogram performed late last year with the exception of mild valvular heart disease. We would not make any additions or changes based on that testing. Given her comorbidities she would not be an invasive heart candidate however nor would she wish aggressive or invasive testing due to her chronic comorbidities. We will place telemetry monitoring to evaluate potential challenges as result of her palpitations and possible dysrhythmia. We will plan follow-up in a couple months time to review those results as they become available. Once again we have made no additions or changes but did offer reassurance. We did discuss various techniques to help mindfulness and challenges with her current situation which may be exacerbating her symptoms. She is looking forward to moving in with her in July however. Vitals: BP 160/80 Pulse 83 Ht 157.5 cm (5' 2") Wt 64.2 kg (141 lb 8.6 oz) SpO2 96% BMI 25.89 kg/m? Physical Exam Vitals reviewed. Constitutional: General: She is not in acute distress. Appearance: Normal appearance. She is well-developed. HENT: Head: Normocephalic and atraumatic. Nose: Nose normal. Eyes: General: No scleral icterus. Right eye: No discharge. Left eye: No discharge. Pupils: Pupils are equal, round, and reactive to light. Neck: Thyroid: No thyromegaly. Vascular: No carotid bruit or JVD. Cardiovascular: Rate and Rhythm: Normal rate and regular rhythm. Heart sounds: Normal heart sounds. No murmur heard. No friction rub. No gallop. Pulmonary: Effort: Pulmonary effort is normal. No respiratory distress. Breath sounds: Normal breath sounds. No wheezing or rales. Abdominal: General: Bowel sounds are normal. Palpations: Abdomen is soft. Musculoskeletal: General: Normal range of motion. Cervical back: Normal range of motion and neck supple. Skin: General: Skin is warm and dry. Capillary Refill: Capillary refill takes less than 2 seconds. Coloration: Skin is not pale. Neurological: Mental Status: She is alert and oriented to person, place, and time. Cranial Nerves: No cranial nerve deficit. Psychiatric: Behavior: Behavior normal. Thought Content: Thought content normal. Judgment: Judgment normal. Review of Systems Constitutional: Negative for activity change and fatigue. HENT: Negative for ear pain and facial swelling. Eyes: Negative for pain and discharge. Respiratory: Positive for shortness of breath. Negative for chest tightness. Cardiovascular: Positive for palpitations. Negative for chest pain and leg swelling. Gastrointestinal: Negative for abdominal pain, blood in stool, nausea and vomiting. Endocrine (more content not included)... Normal [facility] 02-17-2023 TREVA Telephone (MEPRAD) MERNA WEBSTER ([id number]) 1940 F NFR Date Time Provider Department 02/17/23 SONA GRIER During your visit today, we recorded the following information about you: Allergies As of Date: 02/17/2023 Noted Allergy Reaction ROFECOXIB 04/20/2002 9 - Itching Comments: heart palpitations,red blotching on face AMOXICILLIN 11/28/2022 14 - Other: See Comments Comments: Swelling in her eye. ASPIRIN 01/06/2001 Comments: heart palpitations DOXYCYCLINE 09/05/2022 8 - GI Upset IBUPROFEN 01/06/2001 Comments: face swells LISINOPRIL 07/10/2020 8 - GI Upset Comments: Acid reflux SEASONAL ALLERGIES 09/04/2020 14 - Other: See Comments SINGULAIR (MONTELUKAST SODIUM) 10/21/2017 2 - Rash SULFA (SULFONAMIDE ANTIBIOTICS) 01/06/2001 Comments: rash ZOLOFT (SERTRALINE) 11/28/2022 6 - Diarrhea Date Reviewed: 01/19/2023 Reviewed by: Callie Taylor - Fully Assessed Order(s):predniSONE (DELTASONE) 10 mg tabletTake PO 4 tablets x 5 days, then 3 tablets x 3 days, then 2 tablets x 3 days, 1 tablets x 3 daysDisp: 38 tabletRfl: 0 azithromycin (ZITHROMAX) 250 mg tabletTake 2 tablets by mouth once daily for 1 day, THEN 1 tablet once daily for 4 days.Disp: 6 tabletRfl: 0 Prescriptions as of 02/17/2023 - predniSONE (DELTASONE) 10 mg tablet Take PO 4 tablets x 5 days, then 3 tablets x 3 days, then 2 tablets x 3 days, 1 tablets x 3 days - azithromycin (ZITHROMAX) 250 mg tablet Take 2 tablets by mouth once daily for 1 day, THEN 1 tablet once daily for 4 days. - ALPRAZolam (XANAX) 1 mg tablet Take 1 tablet by mouth three times a day as needed for sedation or anxiety for up to 30 days. Do not start before February 16, 2023. - SUMAtriptan (IMITREX) 100 mg tablet Take 1 tablet (100 mg) by mouth as needed for migraine headache (see administration instructions). at onset of headache.May repeat after 2 hours. - fluticasone (FLONASE) 50 mcg/actuation nasal spray Use 1 [place] in each nostril two times a day. - betamethasone valerate 0.1 % ointment Apply to affected area two times a day. - cloNIDine HCl (CATAPRES) 0.1 mg tablet Take 1 tablet by mouth three times a day. - esomeprazole (NEXIUM) 40 mg capsule TAKE 1 CAPSULE BY MOUTH DAILY BEFORE BREAKFAST. - CPAP/BIPAP/OTHER Type .CPAPSettings into a note to see current settings/supplies/DME information. - fluticasone propionate (FLONASE NASAL) Use in the nose as needed (Pt uses 1 spray each nostril once a day as needed.). - erythromycin (ROMYCIN) 5 mg/gram (0.5 %) ophthalmic ointment daily at bedtime. - amoxicillin, chewable (AMOXIL) 125 mg chewable tablet Take by mouth three times daily. - pirfenidone (ESBRIET) 801 mg tablet TAKE 1 TABLET BY MOUTH 3 TIMES A DAY - fluticasone (FLOVENT HFA) 110 mcg/actuation inhaler Inhale 1 Puff as instructed twice daily. Shake well before use. Rinse mouth after use. - levalbuterol tartrate HFA 45 mcg/actuation inhaler INHALE 1-2 PUFFS INSTRUCTED EVERY 4 HOURS NEEDED FOR WHEEZING/SHORTNESS OF BREATH. - levothyroxine (SYNTHROID) 25 mcg tablet Take 1 tablet by mouth once daily. - nortriptyline (PAMELOR) 75 mg capsule TAKE 1 CAPSULE AT BEDTIME - verapamil SR (CALAN SR) 240 mg CR tablet Take 1 tablet by mouth daily at bedtime. - pravastatin (PRAVACHOL) 40 mg tablet Take 1 tablet by mouth daily at bedtime. - triamcinolone acetonide (KENALOG) 0.5 % cream Apply to affected area three times daily. - VENTOLIN HFA 90 mcg/actuation inhaler Inhale 2 Puffs as instructed every 4 hours as needed. - fexofenadine (MARIA C) 180 mg tablet Take 180 mg by mouth as needed (Patient choice). - albuterol (PROVENTIL) 2.5 mg /3 mL (0.083 %) nebulizer solution Use 3 mL via nebulizer every 4 hours as needed for wheezing/shortness of breath. Use via nebulizer three times daily as needed. OVER 5-15 MINUTES. FOR WHEEZING AND SHORTNESS OF BREATH. - promethazine (PHENERGAN) 12.5 mg tablet Take 1 tablet by mouth every 6 hours as needed (Headache). - CPAP Dispense CPAP 6 cmH2O, mask, tubing, filters, heated humidity, lifetime supplies. Dx: JENNY - OXYGEN, HOME THERAPY, Please dispense an oxygen concentrator, a portable oxygen concentrator and all necessary accessories to be used at 2L/min NC with exertion and with sleep. - COMPOUNDED PRESCRIPTION Please dispense an oxygen concentrator and a portable oxygen concentrator and all necessary accessories to be used at 2L/min NC with exertion. - acetaminophen/caffeine (EXCEDRIN ASPIRIN FREE ORAL) Take 2 tablets by mouth as needed. - Inhalational Spacing Device (AEROCHAMBER) Spcr 1 Device as directed. Facility-Administered Medications as of 02/17/2023 - perflutren lipid microspheres 1.3 mL in NaCl (PF) 0.9% 10 mL injection (DEFINITY) - sodium chloride 0.9 % (flush) 10 mL (BD POSIFLUSH) Problem List As Of Date 02/17/2023 Noted Resolved P (more content not included)... Normal [facility] ECHOon 01-29-2023 Echocardiography Echocardiography Report: Transthoracic Echo [facility] Date of service: 01/29/2023 2:02:38 PM Ordering physician: SONA GRIER Indication: Suspected pulmonary hypertension Technologist: Sabine Rubio [facility] Interpreting physician: Sherley Singh MD PATIENT: Name: MS. MERNA WEBSTER : 1940 Age: 82 years Gender: F History of hypertension. Primary rhythm: sinus. Height: 157.48 cm BSA: 1.66 m Weight: 63.05 kg BMI: 25.4 kg/m Heart rate 73 bpm Blood pressure 165/85 mmHg Color Doppler was utilized to interrogate the cardiac valves assessed and spectral Doppler was utilized to determine the flow velocities and pressure gradients reported in this exam. MEASUREMENTS: Value Indexed Normal Max aortic dimension 3.7 cm Ao < 3.8 Left atrium diameter 3.5 cm (2D) Left atrial volume 68 ml (4ch A-L) 41 ml/m Mary Beth <= 34 LV ID (diastole) 3.8 cm (2D) 2.31 cm/m LV ID (systole) 2.8 cm (2D) 1.66 cm/m IVS, leaflet tips 1.4 cm (2D) Posterior wall thickness 1.3 cm (2D) Left ventricular mass 182 g (2D) 110 g/m LV stroke volume 44 ml (2D biplane) LV end diastolic volume 78 ml (2D biplane) 46.7 ml/m 29<=EDVi<62 LV end systolic volume 33 ml (2D biplane) 19.9 ml/m Ejection Fraction 57 % (2D biplane) EF > 54 FINDINGS: LEFT VENTRICLE The left ventricle is normal in size. Left ventricular systolic function is normal. Indeterminate left ventricular diastolic dysfunction. Mitral annular lateral E/e': 9.6. Mitral annular septal E/e': 11.6. Wall Motion: All scored segments are normal. RIGHT VENTRICLE The right ventricle is normal in size. Right ventricular systolic function is normal. RV systolic tissue Doppler velocity is 14.1 cm/s. Tricuspid annular displacement is 1.8 cm. Estimated right ventricular systolic pressure is 35 mmHg consistent with normal pulmonary artery pressures. Estimated right atrial pressure is 3 mmHg based on IVC assessment. LEFT ATRIUM The left atrial cavity is mildly dilated. RIGHT ATRIUM The right atrial cavity is normal in size. Inferior Vena Cava: The inferior vena cava appears normal measuring 2.0 cm. The vessel decreases greater than 50 percent with inspiration. MITRAL VALVE The mitral valve leaflets are structurally normal. There is trace (trace - 1+) mitral valve regurgitation. The pressure half time is 79 msec. The peak mitral E/A ratio is 0.67. The average mitral E/e' ratio is 10.6. The mitral flow deceleration time is 274 msec. TRICUSPID VALVE The tricuspid valve leaflets are structurally normal. There is mild (1+) tricuspid valve regurgitation. AORTIC VALVE The aortic valve cusps are structurally normal. There is trace (trace - 1+) aortic valve regurgitation. Tricuspid aortic valve. The peak gradient is 8 mmHg (peak velocity = 138.0 cm/s). PULMONIC VALVE The pulmonic valve was not seen or not interrogated. The peak gradient is 3 mmHg. AORTA The visualized aorta is normal in size. Measurements - Sinus: 3.0 cm. Mid ascending aorta 3.7 cm. PULMONARY ARTERIES The main pulmonary artery is normal in size. The main pulmonary artery diameter is 1.8 cm (diastolic). INTERVENTRICULAR SEPTUM There is no flow through the interventricular septum as detected by Doppler. PERICARDIUM There is no pericardial effusion. CONCLUSIONS: - Exam indication: Suspected pulmonary hypertension - The left ventricle is normal in size. Left ventricular systolic function is normal. EF = 57 5% (2D biplane) Indeterminate left ventricular diastolic dysfunction. - The right ventricle is normal in size. Right ventricular systolic function is normal. - The left atrial cavity is mildly dilated. - There is trace to mild (1+) mitral regurgitation. - There is mild (1+) tricuspid regurgitation. - There is trivial to mild aortic regurgitation. - Estimated right ventricular systolic pressure is 35 mmHg consistent with normal pulmonary artery pressures. Estimated right atrial pressure is 3 mmHg based on IVC assessment. - Exam was compared with the prior CC echocardiographic exam performed on 01/24/20. There is now trivial to mild aortic regurgitation. * * * Final * * * [facility] [facility] : [id number] ISUID [facility] ECG COMPLETEon 12-08-2022 ECG COMPLETE Ventricular Rate : 8 7 BPM Atrial Rate : 87 BPM P-R Interval : 138 ms QRS Duration : 76 ms Q-T Interval : 368 ms QTC Calculation(Bazett) : 442 ms Calculated P [place] : 28 degrees Calculated R [place] : -17 degrees Calculated T [place] : 26 degrees NORMAL SINUS RHYTHM MINIMAL VOLTAGE CRITERIA FOR LVH, MAY BE NORMAL VARIANT INFERIOR INFARCT , AGE UNDETERMINED POOR R-WAVE PROGRESSION WHEN COMPARED WITH ECG OF 21-DEC-2020 18:39, NO SIGNIFICANT CHANGE WAS FOUND Confirmed by MD SINGH QARAB ([id number]) on 12/08/2022 4:24:11 PM NAME : MERNA WEBSTER PID : [id number] : 1940 Gender : Female Race : ORD : [id number] Procedure Date : Dec 08 2022 14:45:42 Edit Date : Dec 08 2022 16:24:16 Diagnosis: NORMAL SINUS RHYTHM MINIMAL VOLTAGE CRITERIA FOR LVH, MAY BE NORMAL VARIANT INFERIOR INFARCT , AGE UNDETERMINED POOR R-WAVE PROGRESSION WHEN COMPARED WITH ECG OF 21-DEC-2020 18:39, NO SIGNIFICANT CHANGE WAS FOUND Confirmed by MD SINGH QARAB ([id number]) on 12/08/2022 4:24:11 PM Test Reason : Shortness of Breath Location : 0 : CARD Overread By : MD SINGH QARAB Edited By : MD SINGH QARAB Referred By : SONA GRIER Acquired by : Jennyfer [facility] No Panel Informationon 11-28 [facility] XR CHEST 2V FRONTAL/LATon XR CHEST 2V FRONTAL/LAT * * *Final Repor t* * * DATE OF EXAM: Nov 28 2022 12:09PM ANGELO [id number] - XR CHEST 2V FRONTAL/LAT / PROCEDURE REASON: R06.02-SOB (shortness of breath) * * * * Physician Interpretation * * * * EXAMINATION: CHEST RADIOGRAPH (2 VIEW FRONTAL and LATERAL) CLINICAL HISTORY: SOB (shortness of breath) MQ: XC2_6 EXAM DATE/TIME: 11/28/2022 12:09 PM COMPARISON: 09/03/2022 RESULT: Lines, tubes, and devices: None. Lungs and pleura: Extensive chronic changes of interstitial lung disease. No new focal consolidation. No lung mass. No pleural effusion. No pneumothorax. Cardiomediastinal silhouette: Normal cardiomediastinal silhouette. Bones and soft tissues: Unremarkable. IMPRESSION: Extensive chronic changes of interstitial lung disease. While no definite acute pathology can be identified it could be easily obscured Director Foundation: YURIDIA Transcribe Date/Time: Nov 28 2022 3:00P Dictated by : FLORIN ROSSI DO This examination was interpreted and the report reviewed and electronically signed by: FLORIN ROSSI DO on Nov 28 2022 3:03PM EST [id number] Normal [facility] XR Knee - bilateral 4 Viewso n 10-26-2022 IMPRESSION: Degenerative changes as discussed Director Foundation: YURIDIA Transcribe Date/Time: Oct 26 2022 1:37P Dictated by : FLORIN ROSSI DO This examination was interpreted and the report reviewed and electronically signed by: FLORIN ROSSI DO on Oct 26 2022 1:38PM EST [facility] * * *Final Report* * * DATE OF EXAM: Oct 24 2022 2:45PM O [id number] - XR KNEE 4V AP/PA/LAT/MERCH RYAN / PROCEDURE REASON: [id number] * * * * Physician Interpretation * * * * EXAM(s): XR KNEE 4V AP/PA/LAT/MERCH RYAN EXAM DATE/TIME: 10/24/2022 2:45 PM HISTORY: 82 years old Clinical information: Pain BILATERAL KNEE PAIN TECHNIQUE: Images: XR KNEE 4V AP/PA/LAT/MERCH RYAN Comparison: 12/30/2021. RESULT: Findings: Bilateral findings: Severe narrowing of the medial compartments. Marked bony demineralization. Marked narrowing of the lateral compartment. Mild narrowing of the patellofemoral joints. Right :No fractures or dislocations are seen. Left :No fractures or dislocations are seen. [facility] Provider, Pedro Sarkar - 10/26/2022 * * *Final Report* * * DATE OF EXAM: Oct 24 2022 2:45PM O [id number] - XR KNEE 4V AP/PA/LAT/MERCH RYAN / PROCEDURE REASON: [id number] * * * * Physician Interpretation * * * * EXAM(s): XR KNEE 4V AP/PA/LAT/MERCH RYAN EXAM DATE/TIME: 10/24/2022 2:45 PM HISTORY: 82 years old Clinical information: Pain BILATERAL KNEE PAIN TECHNIQUE: Images: XR KNEE 4V AP/PA/LAT/MERCH RYAN Comparison: 12/30/2021. RESULT: Findings: Bilateral findings: Severe narrowing of the medial compartments. Marked bony demineralization. Marked narrowing of the lateral compartment. Mild narrowing of the patellofemoral joints. Right :No fractures or dislocations are seen. Left :No fractures or dislocations are seen. IMPRESSION IMPRESSION: Degenerative changes as discussed Director Foundation: YURIDIA Transcribe Date/Time: Oct 26 2022 1:37P Dictated by : FLORIN ROSSI DO This examination was interpreted and the report reviewed and electronically signed by: FLORIN ROSSI DO on Oct 26 2022 1:38PM EST [facility] XR Knee - bilateral 4 ViewsO rdered By: [facility] Provider on 10-26-2022 [facility] XR Shoulder - right 3 Viewso n 10-26-2022 IMPRESSION: Findings as discussed under Results portion of report. Director Foundation: YURIDIA Transcribe Date/Time: Oct 26 2022 1:30P Dictated by : FLORIN ROSSI DO This examination was interpreted and the report reviewed and electronically signed by: FLORIN ROSSI DO on Oct 26 2022 1:37PM EST [facility] * * *Final Report* * * DATE OF EXAM: Oct 24 2022 2:45PM MARY JO [id number] - XR SHLDR >/=3V AP/FRANCO AP/OTHR RT / PROCEDURE REASON: multiple diagnoses * * * * Physician Interpretation * * * * EXAM(s): XR SHLDR >/=3V AP/FRANCO AP/OTHR RT EXAM DATE/TIME: 10/24/2022 2:45 PM HISTORY: 82 years old Clinical information: Chronic right shoulder pain Chronic right shoulder pain RIGHT SHOULDER PAIN TECHNIQUE: Images: XR SHLDR >/=3V AP/FRANCO AP/OTHR RT Comparison: 04/17/2015. RESULT: Findings: Severe degenerative changes throughout the spine Severe narrowing of the AC joint.. Severe narrowing of the glenohumeral joint.Decrease in the acromiohumeral interval. There appears to be some calcification within the joint space. Question of loose calcific or ossific bodies within the joint space. Marked bony demineralization [facility] Provider, Pedro stubbs Adona - 10/26/2022 * * *Final Report* * * DATE OF EXAM: Oct 24 2022 2:45PM M[facility] JO 5253 - XR SHLDR >/=3V AP/FRANCO AP/OTHR RT / PROCEDURE REASON: multiple diagnoses * * * * Physician Interpretation * * * * EXAM(s): XR SHLDR >/=3V AP/FRANCO AP/OTHR RT EXAM DATE/TIME: 10/24/2022 2:45 PM HISTORY: 82 years old Clinical information: Chronic right shoulder pain Chronic right shoulder pain RIGHT SHOULDER PAIN TECHNIQUE: Images: XR SHLDR >/=3V AP/FRANCO AP/OTHR RT Comparison: 04/17/2015. RESULT: Findings: Severe degenerative changes throughout the spine Severe narrowing of the AC joint.. Severe narrowing of the glenohumeral joint.Decrease in the acromiohumeral interval. There appears to be some calcification within the joint space. Question of loose calcific or ossific bodies within the joint space. Marked bony demineralization IMPRESSION IMPRESSION: Findings as discussed under Results portion of report. Director Foundation: [facility]SC[facility] Transcribe Date/Time: Oct 26 2022 1:30P Dictated by : FLORIN ROSSI DO This examination was interpreted and the report reviewed and electronically signed by: FLORIN ROSSI DO on Oct 26 2022 1:37PM EST [facility] XR Shoulder - right 3 ViewsO rdered By: Ccf Provider on 10-26-2022 [facility] No Panel Informationon 10-24 Radiology Study observation (narrative) [facility] XR KNEE 4V AP/PA/LAT/MERCH B ILon 10-24-2022 XR KNEE 4V AP/PA/LAT/MERCH RYAN * * *Final Report* * * DATE OF EXAM: Oct 24 2022 2:45PM MARY JO 5618 - XR KNEE 4V AP/PA/LAT/MERCH RYAN / PROCEDURE REASON: [id number] * * * * Physician Interpretation * * * * EXAM(s): XR KNEE 4V AP/PA/LAT/MERCH RYAN EXAM DATE/TIME: 10/24/2022 2:45 PM HISTORY: 82 years old Clinical information: Pain BILATERAL KNEE PAIN TECHNIQUE: Images: XR KNEE 4V AP/PA/LAT/MERCH RYAN Comparison: 12/30/2021. RESULT: Findings: Bilateral findings: Severe narrowing of the medial compartments. Marked bony demineralization. Marked narrowing of the lateral compartment. Mild narrowing of the patellofemoral joints. Right :No fractures or dislocations are seen. Left :No fractures or dislocations are seen. IMPRESSION: Degenerative changes as discussed Director Foundation: YURIDIA Transcribe Date/Time: Oct 26 2022 1:37P Dictated by : FLORIN ROSSI DO This examination was interpreted and the report reviewed and electronically signed by: FLORIN ROSSI DO on Oct 26 2022 1:38PM EST [id number] [facility] XR SHLDR >/=3V AP/FRANCO AP/OTH R RTon 10-24-2022 XR SHLDR >/=3V AP/FRANCO AP/OTHR RT * * *Final Report* * * DATE OF EXAM: Oct 24 2022 2:45PM MARY JO 5253 - XR SHLDR >/=3V AP/FRANCO AP/OTHR RT / PROCEDURE REASON: multiple diagnoses * * * * Physician Interpretation * * * * EXAM(s): XR SHLDR >/=3V AP/FRANCO AP/OTHR RT EXAM DATE/TIME: 10/24/2022 2:45 PM HISTORY: 82 years old Clinical information: Chronic right shoulder pain Chronic right shoulder pain RIGHT SHOULDER PAIN TECHNIQUE: Images: XR SHLDR >/=3V AP/FRANCO AP/OTHR RT Comparison: 04/17/2015. RESULT: Findings: Severe degenerative changes throughout the spine Severe narrowing of the AC joint.. Severe narrowing of the glenohumeral joint.Decrease in the acromiohumeral interval. There appears to be some calcification within the joint space. Question of loose calcific or ossific bodies within the joint space. Marked bony demineralization IMPRESSION: Findings as discussed under Results portion of report. Director Foundation: PSC[facility] Transcribe Date/Time: Oct 26 2022 1:30P Dictated by : FLORIN ROSSI DO This examination was interpreted and the report reviewed and electronically signed by: FLORIN ROSSI DO on Oct 26 2022 1:37PM EST [id number] Normal [facility] No Panel Informationon 09-03 [facility] CBC panel Auto (Bld)on 08-22 Erythrocyte distribution width (RBC) [Ratio] 12.9 % 11.5 - 15.0 % [facility] Hematocrit (Bld) [Volume fraction] 35.7 % Low 36.0 - 46.0 % [facility] Hemoglobin (Bld) [Mass/Vol] 11.8 g/dL 11.5 - 15.5 g/dL [facility] MCH (RBC) [Entitic mass] 33.5 pg 26.0 - 34.0 pg [facility] MCHC (RBC) [Mass/Vol] 33.1 g/dL 30.5 - 36.0 g/dL [facility] MCV (RBC) [Entitic vol] 101.4 fL High 80.0 - 100.0 fL [facility] Nucleated RBC (Bld) [#/Vol] <0.01 k/uL [facility] Platelet mean volume (Bld) [Entitic vol] 8.7 fL Low 9.0 - 12.7 fL [facility] Platelets (Bld) [#/Vol] 233 10*3/uL 150 - 400 k/uL [facility] RBC (Bld) [#/Vol] 3.52 10*6/uL Low 3.90 - 5.2 0 m/uL [facility] WBC (Bld) [#/Vol] 7.57 10*3/uL 3.70 - 11. 00 k/uL [facility] Comprehensive metabolic 2000 panelon 08-22-2022 Albumin [Mass/Vol] 3.9 g/dL 3.9 - 4.9 g/dL [facility] ALP [Catalytic activity/Vol] 94 U/L 34 - 123 U/L [facility] ALT [Catalytic activity/Vol] 10 U/L 7 - 38 U/L [facility] Anion gap [Moles/Vol] 8 mmol/L Low 9 - 18 mmol/L [facility] AST [Catalytic activity/Vol] 16 U/L 13 - 35 U/L [facility] Bilirubin [Mass/Vol] 0.2 mg/dL 0.2 - 1 .3 mg/dL [facility] Calcium [Mass/Vol] 9.3 mg/dL 8.5 - 10. 2 mg/dL [facility] Chloride [Moles/Vol] 101 mmol/L 97 - 10 5 mmol/L [facility] CO2 [Moles/Vol] 30 mmol/L 22 - 30 mmol/L [facility] Creatinine [Mass/Vol] 0.61 mg/dL 0.58 - 0.96 mg/dL [facility] Estimated Glomerular Filtration Rate 90 mL/min/1.73m >=60 mL/min/1.73m [facility] Glucose [Mass/Vol] 98 mg/dL 74 - 99 mg/dL [facility] Potassium [Moles/Vol] 4.3 mmol/L 3.7 - 5.1 mmol/L [facility] Protein [Mass/Vol] 7.2 g/dL 6.3 - 8.0 g/dL [facility] Sodium [Moles/Vol] 139 mmol/L 136 - 144 mmol/L [facility] Urea nitrogen [Mass/Vol] 11 mg/dL 7 - 21 mg/dL [facility] TSH BLDon 08-22-2022 TSH Qn 2.480 m[IU]/L 0.270 - 4.200 mIU/L [facility] CT CHEST WO IVCONon 07-10-19 CT CHEST WO IVCON * * *Final Report* * * DATE OF EXAM: Jul 09 2022 4:25PM [facility] 0541 - CT CHEST WO IVCON / PROCEDURE REASON: R91.8-Lung nodules * * * * Physician Interpretation * * * * EXAMINATION: CHEST CT WITHOUT CONTRAST HISTORY: Clinical information: Lung nodules eval lung nodules Technique: Spiral CT acquisition of the chest from the thoracic inlet to the upper abdomen without contrast. MQ: [id number] CT Radiation dose: Integrated Dose-length product (DLP) for this visit = 178 mGy*cm CT Dose Reduction Employed: Automated exposure control(AEC) and iterative recon Comparison: 04/10/2022 RESULT: Limitations: None. Lines, tubes, and devices: None. Lung parenchyma and airways: * Severe honeycombing throughout both lungs most severe in the lower lobes * Extensive peripheral reticular opacities * Traction bronchiectasis * No focal infiltrates Pleural space: No pleural effusion. No pleural thickening. Lower neck, lymph nodes, and mediastinum: The imaged thyroid gland is normal. No lymphadenopathy in the supraclavicular, axillary, mediastinal, or hilar regions. Heart, pericardium, and thoracic vessels: The main pulmonary artery is enlarged compatible with pulmonary arterial hypertension. This is similar to the previous study Bones and soft tissues: No destructive bone lesion. Chest wall is unremarkable. Upper abdomen: No abnormality in the imaged upper abdomen. [employer] (topogram) images: No additional findings. IMPRESSION: 1. 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 No significant interval change 2. No definite nodules are seen on this study 3. Findings are again compatible with Pulmonary arterial hypertension Director Foundation: YURIDIA Transcribe Date/Time: Jul 16 2022 1:20P Dictated by : FLORIN ROSSI DO This examination was interpreted and the report reviewed and electronically signed by: FLORIN ROSSI DO on Jul 16 2022 1:43PM EST [id number] Normal [facility] XR Pelvis and Hip - right AP and Lateral frogon 05-24-2022 IMPRESSION: Advanced right hip osteoarthritis Director Foundation: [facility] Transcribe Date/Time: May 24 2022 1:37P Dictated by : PALOMA MOLINA MD This examination was interpreted and the report reviewed and electronically signed by: PALOMA MOLINA MD on May 24 2022 1:38PM EST [facility] * * *Final Report* * * DATE OF EXAM: May 22 2022 3:03PM MARY JO 5352 - XR HIP 3V PELV+ AP/LAT RT / PROCEDURE REASON: M25.551-Pain in right hip * * * * Physician Interpretation * * * * PROCEDURE: Pelvis and right hip INDICATION: Pain in right hip . TECHNIQUE: XR HIP 3V PELV+ AP/LAT RT COMPARISON: 03/18/2010 FINDINGS: Severe superior right hip joint space narrowing with opposing subchondral sclerosis, cystic change and marginal spur formation, substantially greater than previous. No fracture or dislocation. Degenerative change in the lower lumbar spine. Sacroiliac joints and symphysis pubis are maintained. [facility] Provider, Cc Minor [facility] - 05/24/2022 * * *Final Report* * * DATE OF EXAM: May 22 2022 3:03PM MARY JO 5352 - XR HIP 3V PELV+ AP/LAT RT / PROCEDURE REASON: M25.551-Pain in right hip * * * * Physician Interpretation * * * * PROCEDURE: Pelvis and right hip INDICATION: Pain in right hip . TECHNIQUE: XR HIP 3V PELV+ AP/LAT RT COMPARISON: 03/18/2010 FINDINGS: Severe superior right hip joint space narrowing with opposing subchondral sclerosis, cystic change and marginal spur formation, substantially greater than previous. No fracture or dislocation. Degenerative change in the lower lumbar spine. Sacroiliac joints and symphysis pubis are maintained. IMPRESSION IMPRESSION: Advanced right hip osteoarthritis Director Foundation: [facility] Transcribe Date/Time: May 24 2022 1:37P Dictated by : PALOMA MOLINA MD This examination was interpreted and the report reviewed and electronically signed by: PALOMA MOLINA MD on May 24 2022 1:38PM [facility] XR Pelvis and Hip - right AP and Lateral frogOrdered By: Ccf Provider on 05-24-2022 [facility] XR HIP 3V PELV+ AP/LAT RTon 05-22-2022 XR HIP 3V PELV+ AP/LAT RT * * *Final Report* * * DATE OF EXAM: May 22 2022 3:03PM MARY JO 5352 - XR HIP 3V PELV+ AP/LAT RT / PROCEDURE REASON: M25.551-Pain in right hip * * * * Physician Interpretation * * * * PROCEDURE: Pelvis and right hip INDICATION: Pain in right hip . TECHNIQUE: XR HIP 3V PELV+ AP/LAT RT COMPARISON: 03/18/2010 FINDINGS: Severe superior right hip joint space narrowing with opposing subchondral sclerosis, cystic change and marginal spur formation, substantially greater than previous. No fracture or dislocation. Degenerative change in the lower lumbar spine. Sacroiliac joints and symphysis pubis are maintained. IMPRESSION: Advanced right hip osteoarthritis Director Foundation: [facility] Transcribe Date/Time: May 24 2022 1:37P Dictated by : PALOMA MOLINA MD This examination was interpreted and the report reviewed and electronically signed by: PALOMA MOLINA MD on May 24 2022 1:38PM EST [id number] Normal [facility] XR Pelvis and Hip - right AP and Lateral frogon 05-22-2022 Radiology Study observation (narrative) [facility] TSH BLDon 05-08-2022 TSH Qn 2.450 m[IU]/L 0.270 - 4.200 mIU/L [facility] TSH SerPl-aCncon 05-08-2022 TSH Qn 2.450 m[IU]/L Normal 0.270-4.200 [facility] Comment on above: Order Comment: Speci men Type: BLOOD SPECIMENOrdering Facility: Address: [address] [place] [address] [place] [address] Performed By: #### 3 [id number] ####[facility] [id number] [place] [address] [facility] Office Visit (Urgent Care)on 04-20-2022 Follow-up visit Diagnoses/Problems Assessed Shingles (053.9) (B02.9) Orders Shingles Start: Acyclovir 800 MG Oral Tablet; TAKE 1 TABLET EVERY 4 HOURS, 5 TIMES DAILY FOR 7 TO 10 DAYS Rx By: Tommy Owusu; Dispense: 10 Days ; #:50 Tablet; Refill: 0;For: Shingles; TARYN = N; [facility]; Last Updated By: System, [facility] [employer]; 04/20/2022 2:20:49 PM Provider Impressions Physical exam findings as noted above. Patient's painful erythematous rash is entirely consistent with the left facial dermatome strongly suggesting herpes zoster infection. There is no evidence of ocular involvement at this time. Patient was provided with a prescription for acyclovir 800 mg and supportive care instructions were discussed. 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 Additional supportive care was discussed and the patient and her daughter verbalize clear understanding of same. CLINICAL IMPRESSION: Shingles Left Facial Dermatome Chief Complaint Chief Complaints Rash Red painful rash to left face History of Present Illness Patient is an 82-year-old female who complains of acute onset of a red, painful rash to her left face which has developed over the past 16 hours. Patient has noted no vesicles or other skin lesions. Patient reports that the rash and pain are primarily located to her left temporal skin. Patient denies symptoms to her left eye but does report that the skin around her left eye is tingling. Patient denies redness, matting or discharge to her left eye and reports no acute changes to her vision. Patient does not wear contact lenses and does wear prescription glasses. Patient states that her right face is asymptomatic and nontender. Patient also reports the remainder of the skin to her BSA is unremarkable and she notes no additional areas of redness or pain to her skin. Patient denies recent illness although she is on home oxygen. Patient has no painful lesions to the mucosa of her mouth reports that she is swallowing without difficulty. Family member with the patient states that there is no facial asymmetry and her speech is normal and clear. Family member reports that the patient has experienced no weakness to her extremities. Patient states she has no history of shingles. Review of Systems Constitutional: no chills, no fever, normal sleeping and no night sweats. Eyes: no blurred vision. ENT: no congestion, no nasal congestion and no sore throat. Cardiovascular: no chest pain, no cyanosis, no palpitations and no syncope. Respiratory: no cough and no shortness of breath. Gastrointestinal: no abdominal pain and no vomiting. Genitourinary: no dysuria, no urinary frequency, no urinary hesitancy, abnormal urine frequency and no feelings of urinary urgency. Musculoskeletal: no arthralgias and no myalgias. Integumentary: a rash and Left Facial Skin Rash, but no itching and as noted in HPI. Neurological: no numbness and no weakness. All other systems have been reviewed and are negative for complaint. Active Problems Problems Acute bronchitis (466.0) (J20.9) Acute UTI (599.0) (N39.0) Asthma exacerbation (493.92) (J45.901) Cerumen impaction (380.4) (H61.20) Cough (786.2) (R05.9) Otitis externa (380.10) (H60.90) Urinary tract infection (599.0) (N39.0) Social History Problems Never a smoker Allergies Medication Aspirin TABS Tachycardia; Recorded By: Aminta Rankin; 12/24/2015 4:09:59 PM Current Meds Medication NameInstruction Albuterol Sulfate (2.5 MG/3ML) 0.083% Inhalation Nebulization Solution Doxycycline Hyclate 100 MG Oral TabletTAKE 1 TABLET EVERY 12 HOURS DAILY. Flovent HFA 110 MCG/ACT Inhalation AerosolINHALE 1 PUFF TWICE DAILY. Levothyroxine Sodium 25 MCG Oral Tablet Nortriptyline HCl - 50 MG Oral Capsule predniSONE 20 MG Oral TabletTAKE 2 TABLETS DAILY. ProAir HFA 108 (90 Base) MCG/ACT AERS Simvastatin 40 MG Oral Tablet Verapamil HCl ER 180 MG Oral Capsule Extended Release 24 Hour Xanax 1 MG Oral Tablet Vitals Vital Signs Recorded: [id number] 02:02PM Mfgcayjhqoy103.7 F Heart Rate96 Xlmucsvhyeq10 Owtklcam736 Puozrhyvy03 Ffxxiu475 lb BMI Polirbxyzh52.86 kg/m2 BSA Calculated1.69 Tobacco Useb) No PHQ-2 #1. Over the last 2 weeks have you felt down, depressed or hopeless? (If yes, answer PHQ-9 below)No PHQ-2 #2. Over the last 2 weeks have you felt little interest or pleasure in doing things? (If yes, answer PHQ-9 below)No Falls Screening (Age 18+)a) No falls within the last year O2 Akmeqbfjvy60, Nasal Cannula Pain Scale0 Physical Exam Constitutional: Well developed, well nourished. vital signs reviewed. patient alert patient without distress Head and Face: Head and face: Abnormal. Palpation of the face and sinuses: Abnormal. Eyes: Normal external exam - pupils were equal in size, round, reactive to light (PERRL) with normal accommodation and extraocular move (more content not included)... Normal [employer] Tobacco Screening.on 023 Adult depression screening assessment No [facility] Work Phone: Fall risk assessment a) No falls within the last year [facility] Work Phone: Tobacco use status CP b) No [facility] Work Phone: CT CHEST WO IVCONon 04-10-19 23 Radiology Result ACTIONABLE Abnormal [facility] No Panel Informationon 12-31 IMPRESSION: Spondylosis and curvature of the lumbar spine. No acute osseous abnormality identified involving the sacrum or coccyx. Mild osteoarthrosis of the right knee. Director Foundation: [facility] Transcribe Date/Time: Dec 31 2021 3:07P Dictated by : ALESSANDRA SIMON MD This examination was interpreted and the report reviewed and electronically signed by: ALESSANDRA SIMON MD on Dec 31 2021 3:10PM [facility] No Panel InformationOrdered By: Ccf Provider on 12-31-2021 [facility] XR Knee - right 4 Viewson * * *Final Report* * * DATE OF EXAM: Dec 30 2021 3:13PM M[facility] JO 5203 - XR KNEE 4V AP/PA BOTH+LAT/CAREN RT / PROCEDURE REASON: multiple diagnoses * * * * Physician Interpretation * * * * Right knee, lumbar spine, and sacrum/coccygeal radiographs HISTORY: 81 years old Clinical information: Chronic pain of right knee Chronic pain of right knee RIGHT KNEE PAIN (accession [id number]), LOW BACK PAIN (accession [id number]), LOW BACK PAIN (accession [id number]) TECHNIQUE: Images: XR KNEE 4V AP/PA BOTH+LAT/CAREN RT, XR SACRUM/COCCYX 3V AP/LAT, XR LUMBAR 3V AP/LAT/L5-S1 Comparison: None. Right knee RESULT: Narrowing of medial compartment joint space. Marginal osteophyte extends tibial plateaus, lateral femoral condyle, and posterior aspect of the patella. No fracture or dislocation identified. No joint effusion. No soft tissue abnormality identified. Lumbar spine RESULT: For the purposes of this dictation the iliac crests are at the L4-5 level. Left-sided convex curvature of the lumbar spine. 5.5 mm anterolisthesis of L5 on S1. Intervertebral disc space narrowing at the L4-5 and L5-S1 level. Endplate osteophyte formation at multiple levels in the lumbar spine. No fracture. Rtxt-up-yaud of the right femoral head and acetabulum. Degenerative cyst formation on the right femoral head and acetabulum. Osteophyte formation on the left superior acetabulum. Sacrum/coccyx RESULT: SI joints. Tach. No erosions are seen. Subchondral sclerosis subjacent to the SI joints. No fracture or dislocation. The remainder of the imaged bony pelvis appears to be intact. [facility] Provider, Pedro Gaxiola [facility] - 12/31/2021 * * *Final Report* * * DATE OF EXAM: Dec 30 2021 3:13PM [facility] JO 5203 - XR KNEE 4V AP/PA BOTH+LAT/CAREN RT / PROCEDURE REASON: multiple diagnoses * * * * Physician Interpretation * * * * Right knee, lumbar spine, and sacrum/coccygeal radiographs HISTORY: 81 years old Clinical information: Chronic pain of right knee Chronic pain of right knee RIGHT KNEE PAIN (accession [id number]), LOW BACK PAIN (accession [id number]), LOW BACK PAIN (accession [id number]) TECHNIQUE: Images: XR KNEE 4V AP/PA BOTH+LAT/CAREN RT, XR SACRUM/COCCYX 3V AP/LAT, XR LUMBAR 3V AP/LAT/L5-S1 Comparison: None. Right knee RESULT: Narrowing of medial compartment joint space. Marginal osteophyte extends tibial plateaus, lateral femoral condyle, and posterior aspect of the patella. No fracture or dislocation identified. No joint effusion. No soft tissue abnormality identified. Lumbar spine RESULT: For the purposes of this dictation the iliac crests are at the L4-5 level. Left-sided convex curvature of the lumbar spine. 5.5 mm anterolisthesis of L5 on S1. Intervertebral disc space narrowing at the L4-5 and L5-S1 level. Endplate osteophyte formation at multiple levels in the lumbar spine. No fracture. Szzo-is-porx of the right femoral head and acetabulum. Degenerative cyst formation on the right femoral head and acetabulum. Osteophyte formation on the left superior acetabulum. Sacrum/coccyx RESULT: SI joints. Tach. No erosions are seen. Subchondral sclerosis subjacent to the SI joints. No fracture or dislocation. The remainder of the imaged bony pelvis appears to be intact. IMPRESSION IMPRESSION: Spondylosis and curvature of the lumbar spine. No acute osseous abnormality identified involving the sacrum or coccyx. Mild osteoarthrosis of the right knee. Director Foundation: YURIDIA Transcribe Date/Time: Dec 31 2021 3:07P Dictated by : ALESSANDRA SIMON MD This examination was interpreted and the report reviewed and electronically signed by: ALESSANDRA SIMON MD on Dec 31 2021 3:10PM [facility] XR Lumbar spine 3 Viewson * * *Final Report* * * DATE OF EXAM: Dec 30 2021 3:14PM MDO 5228 - XR LUMBAR 3V AP/LAT/L5-S1 / PROCEDURE REASON: M54.10-Radicular low back pain * * * * Physician Interpretation * * * * Right knee, lumbar spine, and sacrum/coccygeal radiographs HISTORY: 81 years old Clinical information: Chronic pain of right knee Chronic pain of right knee RIGHT KNEE PAIN (accession [id number]), LOW BACK PAIN (accession [id number]), LOW BACK PAIN (accession [id number]) TECHNIQUE: Images: XR KNEE 4V AP/PA BOTH+LAT/CAREN RT, XR SACRUM/COCCYX 3V AP/LAT, XR LUMBAR 3V AP/LAT/L5-S1 Comparison: None. Right knee RESULT: Narrowing of medial compartment joint space. Marginal osteophyte extends tibial plateaus, lateral femoral condyle, and posterior aspect of the patella. No fracture or dislocation identified. No joint effusion. No soft tissue abnormality identified. Lumbar spine RESULT: For the purposes of this dictation the iliac crests are at the L4-5 level. Left-sided convex curvature of the lumbar spine. 5.5 mm anterolisthesis of L5 on S1. Intervertebral disc space narrowing at the L4-5 and L5-S1 level. Endplate osteophyte formation at multiple levels in the lumbar spine. No fracture. Wbvp-ig-rert of the right femoral head and acetabulum. Degenerative cyst formation on the right femoral head and acetabulum. Osteophyte formation on the left superior acetabulum. Sacrum/coccyx RESULT: SI joints. Tach. No erosions are seen. Subchondral sclerosis subjacent to the SI joints. No fracture or dislocation. The remainder of the imaged bony pelvis appears to be intact. [facility] Provider, [facility] - 12/31/2021 * * *Final Report* * * DATE OF EXAM: Dec 30 2021 3:14PM MDO 5228 - XR LUMBAR 3V AP/LAT/L5-S1 / PROCEDURE REASON: M54.10-Radicular low back pain * * * * Physician Interpretation * * * * Right knee, lumbar spine, and sacrum/coccygeal radiographs HISTORY: 81 years old Clinical information: Chronic pain of right knee Chronic pain of right knee RIGHT KNEE PAIN (accession [id number]), LOW BACK PAIN (accession [id number]), LOW BACK PAIN (accession [id number]) TECHNIQUE: Images: XR KNEE 4V AP/PA BOTH+LAT/CAREN RT, XR SACRUM/COCCYX 3V AP/LAT, XR LUMBAR 3V AP/LAT/L5-S1 Comparison: None. Right knee RESULT: Narrowing of medial compartment joint space. Marginal osteophyte extends tibial plateaus, lateral femoral condyle, and posterior aspect of the patella. No fracture or dislocation identified. No joint effusion. No soft tissue abnormality identified. Lumbar spine RESULT: For the purposes of this dictation the iliac crests are at the L4-5 level. Left-sided convex curvature of the lumbar spine. 5.5 mm anterolisthesis of L5 on S1. Intervertebral disc space narrowing at the L4-5 and L5-S1 level. Endplate osteophyte formation at multiple levels in the lumbar spine. No fracture. Dxuc-hj-arzy of the right femoral head and acetabulum. Degenerative cyst formation on the right femoral head and acetabulum. Osteophyte formation on the left superior acetabulum. Sacrum/coccyx RESULT: SI joints. Tach. No erosions are seen. Subchondral sclerosis subjacent to the SI joints. No fracture or dislocation. The remainder of the imaged bony pelvis appears to be intact. IMPRESSION IMPRESSION: Spondylosis and curvature of the lumbar spine. No acute osseous abnormality identified involving the sacrum or coccyx. Mild osteoarthrosis of the right knee. Director Foundation: [facility] Transcribe Date/Time: Dec 31 2021 3:07P Dictated by : ALESSANDRA SIMON MD This examination was interpreted and the report reviewed and electronically signed by: ALESSANDRA SIMON MD on Dec 31 2021 3:10PM [facility] XR Sacrum and Coccyx 3 Views on 12-31-2021 * * *Final Report* * * DATE OF EXAM: Dec 30 2021 3:14PM MARY JO [id number] - XR SACRUM/COCCYX 3V AP/LAT / PROCEDURE REASON: M54.10-Radicular low back pain * * * * Physician Interpretation * * * * Right knee, lumbar spine, and sacrum/coccygeal radiographs HISTORY: 81 years old Clinical information: Chronic pain of right knee Chronic pain of right knee RIGHT KNEE PAIN (accession [id number]), LOW BACK PAIN (accession [id number]), LOW BACK PAIN (accession [id number]) TECHNIQUE: Images: XR KNEE 4V AP/PA BOTH+LAT/CAREN RT, XR SACRUM/COCCYX 3V AP/LAT, XR LUMBAR 3V AP/LAT/L5-S1 Comparison: None. Right knee RESULT: Narrowing of medial compartment joint space. Marginal osteophyte extends tibial plateaus, lateral femoral condyle, and posterior aspect of the patella. No fracture or dislocation identified. No joint effusion. No soft tissue abnormality identified. Lumbar spine RESULT: For the purposes of this dictation the iliac crests are at the L4-5 level. Left-sided convex curvature of the lumbar spine. 5.5 mm anterolisthesis of L5 on S1. Intervertebral disc space narrowing at the L4-5 and L5-S1 level. Endplate osteophyte formation at multiple levels in the lumbar spine. No fracture. Omll-of-svvt of the right femoral head and acetabulum. Degenerative cyst formation on the right femoral head and acetabulum. Osteophyte formation on the left superior acetabulum. Sacrum/coccyx RESULT: SI joints. Tach. No erosions are seen. Subchondral sclerosis subjacent to the SI joints. No fracture or dislocation. The remainder of the imaged bony pelvis appears to be intact. [facility] Provider, [facility] - 12/31/2021 * * *Final Report* * * DATE OF EXAM: Dec 30 2021 3:14PM [facility] JO [id number] - XR SACRUM/COCCYX 3V AP/LAT / PROCEDURE REASON: M54.10-Radicular low back pain * * * * Physician Interpretation * * * * Right knee, lumbar spine, and sacrum/coccygeal radiographs HISTORY: 81 years old Clinical information: Chronic pain of right knee Chronic pain of right knee RIGHT KNEE PAIN (accession [id number]), LOW BACK PAIN (accession [id number]), LOW BACK PAIN (accession [id number]) TECHNIQUE: Images: XR KNEE 4V AP/PA BOTH+LAT/CAREN RT, XR SACRUM/COCCYX 3V AP/LAT, XR LUMBAR 3V AP/LAT/L5-S1 Comparison: None. Right knee RESULT: Narrowing of medial compartment joint space. Marginal osteophyte extends tibial plateaus, lateral femoral condyle, and posterior aspect of the patella. No fracture or dislocation identified. No joint effusion. No soft tissue abnormality identified. Lumbar spine RESULT: For the purposes of this dictation the iliac crests are at the L4-5 level. Left-sided convex curvature of the lumbar spine. 5.5 mm anterolisthesis of L5 on S1. Intervertebral disc space narrowing at the L4-5 and L5-S1 level. Endplate osteophyte formation at multiple levels in the lumbar spine. No fracture. Amxv-hk-cswa of the right femoral head and acetabulum. Degenerative cyst formation on the right femoral head and acetabulum. Osteophyte formation on the left superior acetabulum. Sacrum/coccyx RESULT: SI joints. Tach. No erosions are seen. Subchondral sclerosis subjacent to the SI joints. No fracture or dislocation. The remainder of the imaged bony pelvis appears to be intact. IMPRESSION IMPRESSION: Spondylosis and curvature of the lumbar spine. No acute osseous abnormality identified involving the sacrum or coccyx. Mild osteoarthrosis of the right knee. Director Foundation: [facility] Transcribe Date/Time: Dec 31 2021 3:07P Dictated by : ALESSANDRA SIMON MD This examination was interpreted and the report reviewed and electronically signed by: ALESSANDRA SIMON MD on Dec 31 2021 3:10PM EST [facility] No Panel Informationon 12-30 Radiology Study observation (narrative) [facility] XR Knee - right 4 Viewson Radiology Study observation (narrative) [facility] CBC panel Auto (Bld)on 05-30 Erythrocyte distribution width (RBC) [Ratio] 13.2 % 11.5 - 15.0 % [facility] Hematocrit (Bld) [Volume fraction] 36.5 % 36.0 - 46.0 % [facility] Hemoglobin (Bld) [Mass/Vol] 11.7 g/dL 11.5 - 15.5 g/dL [facility] MCH (RBC) [Entitic mass] 31.5 pg 26.0 - 34.0 pg [facility] MCHC (RBC) [Mass/Vol] 32.1 g/dL 30.5 - 36.0 g/dL [facility] MCV (RBC) [Entitic vol] 98.1 fL 80.0 - 100.0 fL [facility] Nucleated RBC (Bld) [#/Vol] 10*3/uL <0.01 k/uL [facility] Platelet mean volume (Bld) [Entitic vol] 9.5 fL 9.0 - 12.7 fL [facility] Platelets (Bld) [#/Vol] 232 10*3/uL 150 - 400 k/uL [facility] RBC (Bld) [#/Vol] 3.72 10*6/uL Low 3.90 - 5.2 0 m/uL [facility] WBC (Bld) [#/Vol] 9.24 10*3/uL 3.70 - 11. 00 k/uL [facility] Comprehensive metabolic 2000 panelon 05-30-2021 Albumin [Mass/Vol] 3.9 g/dL 3.9 - 4.9 g/dL [facility] ALP [Catalytic activity/Vol] 97 U/L 34 - 123 U/L [facility] ALT [Catalytic activity/Vol] 8 U/L 7 - 38 U/L [facility] Anion gap [Moles/Vol] 5 mmol/L Low 9 - 18 mmol/L [facility] AST [Catalytic activity/Vol] 23 U/L 13 - 35 U/L [facility] Bilirubin [Mass/Vol] 0.2 mg/dL 0.2 - 1 .3 mg/dL [facility] Calcium [Mass/Vol] 9.3 mg/dL 8.5 - 10. 2 mg/dL [facility] Chloride [Moles/Vol] 99 mmol/L 97 - 10 5 mmol/L [facility] CO2 [Moles/Vol] 30 mmol/L 22 - 30 mmol/L [facility] Creatinine [Mass/Vol] 0.65 mg/dL 0.58 - 0.96 mg/dL [facility] Estimated Glomerular Filtration Rate 89 mL/min/1.73m >=60 mL/min/1.73m [facility] Glucose [Mass/Vol] 85 mg/dL 74 - 99 mg/dL [facility] Potassium [Moles/Vol] 4.7 mmol/L 3.7 - 5.1 mmol/L [facility] Protein [Mass/Vol] 7.5 g/dL 6.3 - 8.0 g/dL [facility] Sodium [Moles/Vol] 134 mmol/L Low 136 - 144 mmol/L [facility] Urea nitrogen [Mass/Vol] 9 mg/dL 7 - 21 mg/dL [facility] LIPID PANEL, NONFASTINGon Cholesterol [Mass/Vol] 166 mg/dL <200 mg/dL [facility] HDL Cholesterol, Nonfasting 61 mg/dL >39 mg/dL [facility] LDL Cholesterol, Nonfasting 77 mg/dL <100 mg/dL [facility] LDL/HDL Ratio, Nonfasting 1.26 mg/dL <2.54 mg/dL [facility] Non HDL Cholesterol, Nonfasting 105 mg/dL <130 mg/dL [facility] Total Chol/HDL Ratio, Nonfasting 2.72 mg/dL <5.10 mg/dL [facility] Triglycerides, Nonfasting 141 mg/dL <150 mg/dL [facility] VLDL Cholesterol, Nonfasting 28 mg/dL <30 mg/dL [facility] TSH BLDon 05-30-2021 TSH Qn 1.450 m[IU]/L 0.270 - 4.200 mIU/L [facility] CNPNon 12-24-2020 CNPN Telephone ([facility]) MERNA WEBSTER ([id number]) 1940 F NFR Date Time Provider Department 12/24/20 JIGAR GRAHAM [facility] During your visit today, we recorded the following information about you: Allergies As of Date: 12/24/2020 Noted Allergy Reaction ROFECOXIB 04/20/2002 9 - Itching Comments: heart palpitations,red blotching on face ASPIRIN 01/06/2001 Comments: heart palpitations IBUPROFEN 01/06/2001 Comments: face swells LISINOPRIL 07/10/2020 8 - GI Upset Comments: Acid reflux SEASONAL ALLERGIES 09/04/2020 14 - Other: See Comments SINGULAIR (MONTELUKAST SODIUM) 10/21/2017 2 - Rash SULFA (SULFONAMIDE ANTIBIOTICS) 01/06/2001 Comments: rash Date Reviewed: 12/21/2020 Reviewed by: Pita Escoto RN - Fully Assessed Reason for Visit: Initial Consult [665] Prescriptions as of 12/24/2020 - ALPRAZolam (XANAX) 1 mg tablet Take 1 tablet by mouth twice daily as needed for sedation or anxiety for up to 30 days. - VENTOLIN HFA 90 mcg/actuation inhaler Inhale 2 Puffs as instructed every 4 hours as needed. - nortriptyline (PAMELOR) 75 mg capsule Take 1 capsule by mouth daily at bedtime. - ESBRIET 267 mg capsule TAKE 3 CAPSULES BY MOUTH THREE TIMES A DAY WITH MEALS - esomeprazole (NEXIUM) 40 mg capsule Take 1 capsule by mouth daily before breakfast. - fexofenadine (MARIA C) 180 mg tablet Take 180 mg by mouth once daily. - albuterol (PROVENTIL) 2.5 mg /3 mL (0.083 %) nebulizer solution Use 3 mL via nebulizer every 4 hours as needed for wheezing/shortness of breath. Use via nebulizer three times daily as needed. OVER 5-15 MINUTES. FOR WHEEZING AND SHORTNESS OF BREATH. - levothyroxine (SYNTHROID) 25 mcg tablet Take 1 tablet by mouth once daily. - verapamil SR (CALAN SR, ISOPTIN SR) 180 mg CR tablet Take 1 tablet by mouth daily at bedtime. - pravastatin (PRAVACHOL) 40 mg tablet Take 1 tablet by mouth daily at bedtime. - fluticasone (FLOVENT HFA) 110 mcg/actuation inhaler Inhale 2 Puffs as instructed twice daily. Inhale by Mouth - fluticasone (FLONASE) 50 mcg/actuation nasal spray Use 1 [place] in each nostril daily at bedtime. - diclofenac sodium (VOLTAREN) 1 % topical gel Apply 2 g to affected area four times daily. - SUMAtriptan (IMITREX) 100 mg tablet Take 1 tablet by mouth as needed for Migraine Headache (see administration instructions). at onset of headache.May repeat after 2 hours. - promethazine (PHENERGAN) 12.5 mg tablet Take 1 tablet by mouth every 6 hours as needed (Headache). - CPAP Dispense CPAP 6 cmH2O, mask, tubing, filters, heated humidity, lifetime supplies. Dx: JENNY - OXYGEN, HOME THERAPY, Please dispense an oxygen concentrator, a portable oxygen concentrator and all necessary accessories to be used at 2L/min NC with exertion and with sleep. - pirfenidone (ESBRIET) 267 mg tablet Take 267 mg by mouth three times daily. - COMPOUNDED PRESCRIPTION Please dispense an oxygen concentrator and a portable oxygen concentrator and all necessary accessories to be used at 2L/min NC with exertion. - acetaminophen/caffeine (EXCEDRIN ASPIRIN FREE ORAL) Take 2 tablets by mouth as needed. - Inhalational Spacing Device (AEROCHAMBER) Spcr 1 Device as directed. Facility-Administered Medications as of 12/24/2020 - perflutren lipid microspheres 1.3 mL in NaCl (PF) 0.9% 10 mL injection (DEFINITY) - sodium chloride 0.9 % (flush) 10 mL (BD POSIFLUSH) Problem List As Of Date 12/24/2020 Noted Resolved Pure hypercholesterolemia [E78.00] 07/05/2002 Rotator cuff (capsule) sprain [S43.429A] 06/21/2003 07/22/2017 Recurrent major depressive disorder, in full re*05/21/2004 Asthma [J45.909] 05/21/2004 Essential hypertension [I10] 07/15/2005 OTHER PSORIASIS [L40.8] 09/04/2005 OSTEOARTHROSIS [M15.9] 09/04/2005 Pes anserinus tendinitis or bursitis [AVT4962] 09/04/2005 07/22/2017 PLANTAR FIBROMATOSIS [M72.2] 09/04/2005 Backache, unspecified [M54.9] 09/24/2005 04/23/2017 Thoracic or lumbosacral neuritis or radiculitis*09/24/2005 07/22/2017 Pathologic fracture of vertebrae [M84.48XA] 10/13/2005 07/22/2017 Osteoporosis [M81.0] 10/13/2005 DIVERTICULOSIS OF COLON W/O BLEED [K57.30] osteoporosis [M89.9, M94.9] 04/23/2017 LUMB/LUMBOSAC DISC DEGEN [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] CERVICALGIA [M54.2] 09/10/2007 Lumbago [M54.50] 09/10/2007 04/23/2017 Sprain of neck [S13.9XXA] 09/10/2007 07/22/2017 Unspecified sleep apnea [G47.30] 01/04/2008 07/22/2017 Apnea [R06.81] 12/05/2015 Ischemic colon (HCC) [K55.9] 06/02/2012 04/23/2017 Colonic mass [K63.89] 06/02/2012 04/23/2017 Thyroid disorder [E07.9] 04/23/2017 Obstructive sleep apnea [G47.33] Dysthymic disorder [F34.1] 07/22/2017 Esophageal reflux [K21.9] Dysphagia [R13.10] 05/22/2016 01/21/2017 Hypothyroidism [E03.9] 05/22/2016 Frequent headaches [R51.9] 04/23/2017 Anxiety [F41.9] 07/22/2017 Idiopathic pulmonary fibrosis (HCC) [J84.112] (more content not included)... Normal [facility] Large Joint Arthro/Inj: R kn ee joint [facility] Vital Signs Date Time Vital Sign Value Performing Clinician Facility 09-25-2023 13:50-0400 Body mass index (BMI) [Ratio] 24.31 kg/m2 Mouna Vuong APRN.CNP Work Phone: [facility] 09-25-2023 13:50-0400 Body weight 60.3 kg Mouna Vuong APRN.CNP Work Phone: [facility] 09-25-2023 13:50-0400 Diastolic blood pressure 86 mm[Hg] Mouna Vuong APRN.[employer] Work Phone: [facility] Comment on above: Patient is newly on B/p medication [facility]it [facility]red [facility] 09-25-2023 13:50-0400 Heart rate 79 /min Mouna Vuong APRN.CNP Work Phone: [facility] 09-25-2023 13:50-0400 SaO2% (BldA) [Mass fraction] 99 % Mouna Vuong APRN.CNP Work Phone: [facility] Comment on above: patient is on 3 liters of portable Oxyge n 09-25-2023 13:50-0400 Systolic blood pressure 167 mm[Hg] Mouna Vuong APRN.[employer] Work Phone: [facility] Comment on above: Patient is newly on B/p medication monit ored TID at [facility] 07-09-2023 08:28-0400 Diastolic blood pressure 80 mm[Hg] Сергей Espinoza MD Work Phone: [facility] 07-09-2023 08:28-0400 Systolic blood pressure 130 mm[Hg] Сергей Espinoza MD Work Phone: [facility] 07-09-2023 08:12-0400 Body height 157.5 cm Сергей Espinoza MD Work Phone: [facility] 07-09-2023 08:12-0400 Body mass index (BMI) [Ratio] 25.08 kg/m2 Сергей Espinoza MD Work Phone: [facility] 07-09-2023 08:12-0400 Body temperature 97.11 [degF] Сергей Espinoza MD Work Phone: [facility] 07-09-2023 08:12-0400 Body weight 62.2 kg Сергей Espinoza MD Work Phone: [facility] 07-09-2023 08:12-0400 Heart rate 82 /min Сергей Espinoza MD Work Phone: [facility] 07-09-2023 08:12-0400 Respiratory rate 16 /min Сергей Espinoza MD Work Phone: [facility] 07-09-2023 08:12-0400 SaO2% (BldA) [Mass fraction] 98 % Сергей Espinoza MD Work Phone: [facility] 06-30-2023 15:11-0400 Body height 157.5 cm Mouna Baez APRN.CNP Work Phone: [facility] 06-30-2023 15:11-0400 Body mass index (BMI) [Ratio] 26.52 kg/m2 Mouna Baez APRN.[employer] Work Phone: [facility] 06-30-2023 15:11-0400 Body weight 65.77 kg Mouna Baez APRN.[employer] Work Phone: [facility] 06-30-2023 15:11-0400 Diastolic blood pressure 72 mm[Hg] Mouna Baez APRN.[employer] Work Phone: [facility] 06-30-2023 15:11-0400 Heart rate 76 /min Mouna Baez APRN.[employer] Work Phone: [facility] 06-30-2023 15:11-0400 SaO2% (BldA) [Mass fraction] 97 % Mouna Baez APRN.[employer] Work Phone: [facility] Comment on above: on 3 L O2 06-30-2023 15:11-0400 Systolic blood pressure 146 mm[Hg] Mouna Baez APRN.[employer] Work Phone: [facility] 04-23-2023 15:10-0500 Body height 157.5 cm Igor Johnson DO Work Phone: [facility] 04-23-2023 15:10-0500 Body weight 64.2 kg Igor Johnson DO Work Phone: [facility] 04-23-2023 15:10-0500 Diastolic blood pressure 80 mm[Hg] Igor Johnson DO Work Phone: [facility] 04-23-2023 15:10-0500 Heart rate 83 /min Igor Johnson DO Work Phone: [facility] 04-23-2023 15:10-0500 SaO2% (BldA) [Mass fraction] 96 % Igor Johnson DO Work Phone: [facility] 04-23-2023 15:10-0500 Systolic blood pressure 160 mm[Hg] Igor Magui DO Work Phone: [facility] 01-19-2023 19:00-0500 Diastolic blood pressure 80 mm[Hg] Сергей Espinoza MD Work Phone: [facility] 01-19-2023 19:00-0500 Systolic blood pressure 152 mm[Hg] Сергей Espinoza MD Work Phone: [facility] 01-19-2023 18:41-0500 Body height 157.5 cm Сергей Espinoza MD Work Phone: [facility] 01-19-2023 18:41-0500 Body temperature 98.29 [degF] Сергей Espinoza MD Work Phone: [facility] 01-19-2023 18:41-0500 Body weight 64.86 kg Сергей Espinoza MD Work Phone: [facility] 01-19-2023 18:41-0500 Heart rate 89 /min Сергей Espinoza MD Work Phone: [facility] 01-19-2023 18:41-0500 Respiratory rate 16 /min Сергей Espinoza MD Work Phone: [facility] 01-19-2023 18:41-0500 SaO2% (BldA) [Mass fraction] 96 % Сергей Espinoza MD Work Phone: [facility] 11-28-2022 10:47-0400 Body weight 63.41 kg Sona Grier MD Work Phone: [facility] 11-28-2022 10:47-0400 Diastolic blood pressure 79 mm[Hg] Sona Grier MD Work Phone: [facility] 11-28-2022 10:47-0400 Heart rate 91 /min Sona Grier MD Work Phone: [facility] 11-28-2022 10:47-0400 SaO2% (BldA) [Mass fraction] 96 % Sona Grier MD Work Phone: [facility] 11-28-2022 10:47-0400 Systolic blood pressure 161 mm[Hg] Sona Grier MD Work Phone: [facility] 09-05-2022 16:15-0400 Diastolic blood pressure 86 mm[Hg] Brinda Dominguez APRN.[employer] Work Phone: [facility] 09-05-2022 16:15-0400 Systolic blood pressure 146 mm[Hg] Brinda Dominguez WEB PRODUCER.[employer] Work Phone: [facility] 09-05-2022 15:43-0400 Body height 158.8 cm Brinda Dominguez WEB PRODUCER.[employer] Work Phone: [facility] 09-05-2022 15:43-0400 Body temperature 99.1 [degF] Brinda Dominguez APRN.[employer] Work Phone: [facility] 09-05-2022 15:43-0400 Body weight 61.6 kg Brinda Dominguez APRN.[employer] Work Phone: [facility] 09-05-2022 15:43-0400 Heart rate 92 /min Brinda Dominguez WEB PRODUCER.[employer] Work Phone: [facility] 09-05-2022 15:43-0400 Respiratory rate 19 /min Brinda Dominguez APRN.[employer] Work Phone: [facility] 09-05-2022 15:43-0400 SaO2% (BldA) [Mass fraction] 96 % Brinda Dominguez WEB PRODUCER.[employer] Work Phone: [facility] 08-22-2022 16:57-0400 Diastolic blood pressure 76 mm[Hg] Сергей Espinoza MD Work Phone: [facility] 08-22-2022 16:57-0400 Systolic blood pressure 142 mm[Hg] Сергей Espinoza MD Work Phone: [facility] 08-22-2022 16:37-0400 Body height 158.8 cm Сергей Espinoza MD Work Phone: [facility] 08-22-2022 16:37-0400 Body temperature 97.81 [degF] Сергей Espinoza MD Work Phone: [facility] 08-22-2022 16:37-0400 Body weight 60.78 kg Сергей Espinoza MD Work Phone: [facility] 08-22-2022 16:37-0400 Heart rate 88 /min Сергей Espinoza MD Work Phone: [facility] 08-22-2022 16:37-0400 Respiratory rate 16 /min Сергей Espinoza MD Work Phone: [facility] 08-22-2022 16:37-0400 SaO2% (BldA) [Mass fraction] 94 % Сергей Espinoza MD Work Phone: [facility] 05-21-2022 13:26-0400 Diastolic blood pressure 70 mm[Hg] Сергей Espinoza MD Work Phone: [facility] 05-21-2022 13:26-0400 Systolic blood pressure 138 mm[Hg] Сергей Espinoza MD Work Phone: [facility] 05-21-2022 13:06-0400 Body height 158.8 cm Сергей Espinoza MD Work Phone: [facility] 05-21-2022 13:06-0400 Body temperature 98.2 [degF] Сергей Espinoza MD Work Phone: [facility] 05-21-2022 13:06-0400 Body weight 62.14 kg Сергей Espinoza MD Work Phone: [facility] 05-21-2022 13:06-0400 Heart rate 99 /min Сергей Espinoza MD Work Phone: [facility] 05-21-2022 13:06-0400 Respiratory rate 16 /min Сергей Espinoza MD Work Phone: [facility] 05-21-2022 13:06-0400 SaO2% (BldA) [Mass fraction] 94 % Сергей Espinoza MD Work Phone: [facility] 05-05-2022 15:26-0500 Diastolic blood pressure 72 mm[Hg] Cordt Skraba WEB PRODUCER.[employer] Work Phone: [facility] 05-05-2022 15:26-0500 Systolic blood pressure 168 mm[Hg] Cordt Skraba WEB PRODUCER.[employer] Work Phone: [facility] 05-05-2022 15:24-0500 Body height 158.8 cm Cordt Skraba WEB PRODUCER.[employer] Work Phone: [facility] 05-05-2022 15:24-0500 Body weight 61.2 kg Cordt Skraba WEB PRODUCER.[employer] Work Phone: [facility] 05-05-2022 15:24-0500 Heart rate 88 /min Cordt Skraba WEB PRODUCER.[employer] Work Phone: [facility] 05-05-2022 15:24-0500 Respiratory rate 16 /min Cordt Skraba WEB PRODUCER.[employer] Work Phone: [facility] 05-05-2022 15:24-0500 SaO2% (BldA) [Mass fraction] 95 % Cordt Skraba WEB PRODUCER.[employer] Work Phone: [facility] 04-20-2022 14:02-0500 Body mass index (BMI) [Ratio] 25.86 kg/m2 Unknown Unknown [facility] Work Phone: 04-20-2022 14:02-0500 Body surface area Derived from formula 1.69 m2 Unknown Unknown [facility] Work Phone: 04-20-2022 14:02-0500 Body temperature 100.7 [degF] Unknown Unknown [facility] Work Phone: 04-20-2022 14:02-0500 Body weight 66.23 kg Unknown Unknown [facility] Work Phone: 04-20-2022 14:02-0500 Diastolic blood pressure 78 mm[Hg] Unknown Unknown [facility] Work Phone: 04-20-2022 14:02-0500 Heart rate 96 /min Unknown Unknown [facility] Work Phone: 04-20-2022 14:02-0500 Respiratory rate 20 /min Unknown Unknown [facility] Work Phone: 04-20-2022 14:02-0500 SaO2% (BldA) [Mass fraction] 95 % Unknown Unknown [facility] Work Phone: 04-20-2022 14:02-0500 Systolic blood pressure 162 mm[Hg] Unknown Unknown [facility] Work Phone: 04-20-2022 14:02-0500 0 1 Unknown Unknown [facility] Work Phone: Comment on above: [facility] 03-31-2022 09:59-0500 Diastolic blood pressure 77 mm[Hg] Cordt Skraba WEB PRODUCER.[employer] Work Phone: [facility] 03-31-2022 09:59-0500 Heart rate 83 /min Cordt Skraba WEB PRODUCER.[employer] Work Phone: [facility] 03-31-2022 09:59-0500 SaO2% (BldA) [Mass fraction] 96 % Cordt Skraba WEB PRODUCER.[employer] Work Phone: [facility] 03-31-2022 09:59-0500 Systolic blood pressure 166 mm[Hg] Cordt Skraba WEB PRODUCER.[employer] Work Phone: [facility] 02-14-2022 15:02-0500 Diastolic blood pressure 64 mm[Hg] Сергей Espinoza MD Work Phone: [facility] 02-14-2022 15:02-0500 Systolic blood pressure 130 mm[Hg] Сергей Espinoza MD Work Phone: [facility] 02-14-2022 14:34-0500 Body height 160 cm Сергей Espinoza MD Work Phone: [facility] 02-14-2022 14:34-0500 Body temperature 97.5 [degF] Сергей Espinoza MD Work Phone: [facility] 02-14-2022 14:34-0500 Body weight 64.41 kg Сергей Espinoza MD Work Phone: [facility] 02-14-2022 14:34-0500 Heart rate 111 /min Сергей Espinoza MD Work Phone: [facility] 02-14-2022 14:34-0500 Respiratory rate 16 /min Сергей Espinoza MD Work Phone: [facility] 02-14-2022 14:34-0500 SaO2% (BldA) [Mass fraction] 94 % Сергей Espinoza MD Work Phone: [facility] 10-28-2021 13:42-0400 Body height 158.8 cm Sona Grier MD Work Phone: [facility] 10-28-2021 13:42-0400 Body weight 65.8 kg Sona Grier MD Work Phone: [facility] 10-28-2021 13:42-0400 Diastolic blood pressure 75 mm[Hg] Sona Grier MD Work Phone: [facility] 10-28-2021 13:42-0400 Heart rate 78 /min Sona Grier MD Work Phone: [facility] 10-28-2021 13:42-0400 SaO2% (BldA) [Mass fraction] 99 % Sona Grier MD Work Phone: [facility] 10-28-2021 13:42-0400 Systolic blood pressure 148 mm[Hg] Sona Grier MD Work Phone: [facility] 05-25-2022 15:42-0400 Diastolic blood pressure 80 mm[Hg] Kenyon Zuniga WEB PRODUCER.INSPECTOR [employer]YEGL[employer] Work Phone: [facility] 07-24-2021 15:42-0400 Systolic blood pressure 139 mm[Hg] Kenyon Zuniga WEB PRODUCER.INSPECTOR [employer]YEGLASS Work Phone: [facility] 07-24-2021 15:15-0400 Body temperature 97.5 [degF] Kenyon Zuniga WEB PRODUCER.INSPECTOR [employer]YEGL[employer] Work Phone: [facility] 07-24-2021 15:15-0400 Body weight 65.82 kg Kenyon Zuniga WEB PRODUCER.INSPECTOR [employer] Work Phone: [facility] 07-24-2021 15:15-0400 Heart rate 109 /min Kenyon Zuniga WEB PRODUCER.INSPECTOR EYEGLASS Work Phone: [facility] 07-24-2021 15:15-0400 Respiratory rate 16 /min Kenyon Zuniga WEB PRODUCER.INSPECTOR EYEGLASS Work Phone: [facility] 07-24-2021 15:15-0400 SaO2% (BldA) [Mass fraction] 95 % Kenyon Zuniga WEB PRODUCER.INSPECTOR EYEGL[employer] Work Phone: [facility] 05-30-2021 15:23-0400 Diastolic blood pressure 78 mm[Hg] Сергей Espinoza MD Work Phone: [facility] 05-30-2021 15:23-0400 Systolic blood pressure 150 mm[Hg] Сергей Espinoza MD Work Phone: [facility] 05-30-2021 14:25-0400 Body height 157.5 cm Сергей Espinoza MD Work Phone: [facility] 05-30-2021 14:25-0400 Body temperature 98.29 [degF] Сергей Espinoza MD Work Phone: [facility] 05-30-2021 14:25-0400 Body weight 65.77 kg Сергей Espinoza MD Work Phone: [facility] 05-30-2021 14:25-0400 Heart rate 101 /min Сергей Espinoza MD Work Phone: [facility] 05-30-2021 14:25-0400 Respiratory rate 16 /min Сергей Espinoza MD Work Phone: [facility] 05-30-2021 14:25-0400 SaO2% (BldA) [Mass fraction] 95 % Сергей Espinoza MD Work Phone: [facility] Encounters Encounter Date Encounter Type Care Provider Facility Start: 07-19-2024 End: 07-19-[address] Сергей Espinoza MD Work Phone: [facility] Work Phone: Start: 07-19-2024 End: 07-19-2024 Departed Referred Anais Osullivan MD -[facility] Start: 07-19-2024 End: 07-19-2024 ambulatory Anais DELGADO Facility:[facility] Start: 05-31-2024 End: 05-31-2024 ambulatory Сергей Espinoza Facility:[facility] Start: 05-31-2024 End: 05-31-[address] Anais Osullivan MD -[facility] Work Phone: Start: 05-17-2024 End: 05-17-[address] Сергей Espinoza MD Work Phone: [facility] Work Phone: Start: 05-17-2024 End: 05-17-2024 Departed Referred Stacie DANIELS -[facility] Start: 05-17-2024 End: 05-17-2024 ambulatory Сергей Espinoza Facility:[facility] Start: 05-11-2024 End: 05-11-2024 ambulatory Stacie Chen NP Facility:[facility] Start: 05-11-2024 End: 05-11-2024 Patient encounter procedure Stacie Chen NP-New -[facility] Work Phone: Start: 04-23-2024 ambulatory Anais DELGADO Facility:[facility] Start: 04-23-2024 Registered Referred Anais Osullivan MD [facility] Start: 04-21-2024 End: 04-21-[address] [facility] Start: 04-21-2024 End: 04-21-2024 Patient encounter procedure Stacie Chen [facility] Work Phone: Start: 04-19-2024 ambulatory Сергей Pearland Facili ty:[facility] Start: 04-19-2024 Registered Referred Anais Osullivan MD [facility] Start: 04-07-2024 [facility] Start: 04-07-2024 Registered Referred Anais Osullivan MD [facility] Start: 04-05-2024 End: 04-05-[address] [facility] Start: 04-05-2024 End: 04-05-[address] Anais Osullivan MD [facility] Work Phone: Start: 03-04-2024 End: 03-04-[address] [facility] Start: 03-04-2024 End: 03-04-2024 Patient encounter procedure Stacie Chen [facility] Work Phone: Start: 02-02-2024 End: 02-02-[address] [facility] Start: 01-25-2024 End: 01-25-2024 Telephone encounter Sona Grier MD Work Phone: Pulmonary Medicine Comment on above: Release Of Medical R ecords ([employer]) Start: 01-19-2024 End: 01-19-2024 ambulatory Anais DELGADO Facility:[facility] Start: 01-12-2024 End: 01-12-[address] [facility] Start: 12-31-2023 End: 12-31-2023 Telephone encounter Sona Grier MD Work Phone: Pulmonary Medicine Comment on above: Orders Start: 12-01-2023 End: 12-01-[address] [facility] Start: 11-30-2023 End: 11-30-2023 Emergency department patient visit [facility] Facility:[facility] Start: 11-30-2023 End: 11-30-[address] [facility] Start: 11-03-2023 End: 11-03-[address] [facility] Start: 10-29-2023 End: 10-29-2023 ambulatory Stacie Chen [employer] Facility:[facility] Start: 10-20-2023 ambulatory Anais DELGADO Facility:[facility] Start: 10-06-2023 End: 10-06-[address] [facility] Facility[facility] Start: 10-05-[address] [facility] Facili ty:[facility] Start: 10-01-2023 End: 10-01-[address] [facility] Start: 09-25-2023 End: 09-25-2023 ambulatory MOUNA VUONG Pulmonary Medicine Comment on above: Spirometry Start: 09-25-2023 End: 09-25-2023 Patient encounter procedure Pulm Fct Ion [place] Work Phone: Pulmonary Medicine Comment on above: Idiopathic pulmonary fibrosis (HCC) (Primary Dx); Mild persistent asthma without complication; Chronic respiratory failure with hypoxia (HCC); Obstructive sleep apnea; Gastroesophageal reflux disease, unspecified whether esophagitis present Start: 09-25-2023 ambulatory SONA Posadas ty:[facility] Start: 09-18-2023 End: 09-18-2023 ambulatory SONA GRIER Facility:[facility] Start: 09-18-2023 End: 09-18-2023 Subsequent hospital visit by physician Elfego [facility] Wstr (I-Stat) Work Phone: Cat Scan Comment on above: Interstitial pulmona ry disease (HCC) [J84.9] Start: 09-15-2023 Telephone encounter Sona Grier MD Work Phone: Pulmonary Medicine Comment on above: return call Start: 09-15-2023 ambulatory Сергейdonnie Recioers Facili ty:[facility] Start: 09-14-2023 End: 09-14-2023 ambulatory Сергей Espinoza Facility:[facility] Start: 09-11-2023 End: 09-11-2023 ambulatory Сергей Olga Facility:[facility] Start: 09-07-2023 Refill Sona baldwin MD Work Phone: Pulmonary Medicine Comment on above: Refill Request Start: 09-02-2023 Refill Sona baldwin MD Work Phone: Pulmonary Medicine Comment on above: Refill Request Start: 08-24-2023 End: 08-25-2023 ambulatory Anais DELGADO Facility:[facility] Start: 08-17-2023 Telephone encounter Sona Grier MD Work Phone: Pulmonary Medicine Comment on above: Forms ([employer] - es briet) Start: 08-11-2023 ambulatory Сергей dolan MD Work Phone: Internal Medicine [place] Comment on above: Medications Start: 08-10-2023 End: 08-11-2023 ambulatory Genevieve Fountain LPN NURSE LOSS PREVENTION AND SAFETY MANAGER Comment on above: Medication Problem Start: 07-25-2023 ambulatory Сергей dolan MD Work Phone: Internal Medicine [place] Comment on above: Merna rodas edication question Start: 07-24-2023 ambulatory Sona baldwin MD Work Phone: Pulmonary Medicine Start: 07-24-2023 Patient encounter procedure Na smita Grier MD Work Phone: Pulmonary Medicine Comment on above: Appoint ment resched uled Start: 07-22-2023 Telephone encounter Сергей Espinoza MD Work Phone: Internal Medicine [place] Comment on above: Forms (Direction [facility] on aging on disabilities ) Start: 07-21-2023 Refill Aide Castillo APRN.CNP Work Phone: Family Medicine [place] Comment on above: Refill Request Start: 07-16-2023 Refill Aide Castillo APRN.INSPECTOR EYEGLASS Work Phone: [facility] Comment on above: Refill Request Start: 07-15-2023 Telephone encounter Neurology Provid er Neurology Comment on above: Received Outside Med [facility] Records (External referral to Neurological Adona/) Start: 07-14-2023 End: 07-14-2023 Refill Sona Grier MD Work Phone: Pulmonary Medicine Comment on above: Refill Request Fluticasone Start: 07-13-2023 ambulatory Сергей dolan MD Work Phone: [facility] Comment on above: Nurse Triage Call Start: 07-10-2023 Telephone encounter Сергей Espinoza MD Work Phone: [facility] Comment on above: Results Start: 07-09-2023 End: 07-09-2023 ambulatory СЕРГЕЙ ESPINOZA Facility:[facility] Start: 07-09-2023 End: 07-09-2023 Office outpatient visit 25 minutes Сергей Espinoza MD Work Phone: [facility] Comment on above: Primary insomnia (Pr imary Dx); Frequent headaches; Essential hypertension; Mild persistent asthma without complication; Idiopathic pulmonary fibrosis (HCC); Chronic respiratory failure with hypoxia (HCC); Acquired hypothyroidism; Primary osteoarthritis of right hip; Recurrent major depressive disorder, in full remission (HCC); Anxiety; Encounter for immunization Start: 07-06-2023 ambulatory Сергей dolan MD Work Phone: [facility] Comment on above: Blood test Start: 07-01-2023 End: 07-01-2023 [facility] СЕРГЕЙ RECIOERS Facility:[facility] Start: 06-30-2023 End: 06-30-2023 Office outpatient visit 25 minutes Mouna Baez APRN.INSPECTOR EYEGLASS Work Phone: Cardiology Comment on above: Essential hypertensi on (Primary Dx); Pure hypercholesterolemia; Chronic respiratory failure with hypoxia (HCC); Obstructive sleep apnea; Palpitations Start: 06-30-2023 End: 06-30-2023 ambulatory Сергей Espinoza MD Work Phone: Internal [facility] [place] Start: 06-26-2023 ambulatory Sona baldwin MD Work Phone: Pulmonary Medicine Comment on above: Coughing Start: 06-24-2023 Refill Aide Castillo WEB PRODUCERConnerINSPECTOR EYEGLASS Work Phone: Internal Medicine [place] Comment on above: Refill Request Start: 06-19-2023 Telephone encounter Sona Grier MD Work Phone: Pulmonary Medicine Comment on above: Orders Start: 06-14-2023 ambulatory Сергей dolan MD Work Phone: Internal [facility] Comment on above: Handicap placard Start: 06-11-2023 Refill Сергей dolan MD Work Phone: Internal [facility] Comment on above: Refill Request Yes prescription ref ills Start: 05-26-2023 End: 05-26-2023 ambulatory СЕРГЕЙ Salguero [place] Facility:[facility] Start: 05-25-2023 End: [facility] [place] [facility] Start: 05-24-2023 ambulatory Ca manzo RN NURSE LOSS PREVENTION AND SAFETY MANAGER Comment on above: UTI Start: 05-18-2023 ambulatory Сергей dolan MD Work Phone: Internal [facility] Comment on above: My heart test Start: 05-13-2023 Refill Brinda manley WEB PRODUCER.INSPECTOR EYEGLASS Work Phone: Internal [facility] Comment on above: Refill Request Start: 05-09-2023 Refill Sona baldwin MD Work Phone: Pulmonary Medicine Comment on above: Refill Request Start: 05-08-2023 ambulatory Tomasa Ramirez APRN.INSPECTOR EYEGLASS Work Phone: Pulmonary Medicine Comment on above: Sinus problem and fi brosis question Refill Request Start: 05-04-2023 ambulatory Сергей dolan MD Work Phone: Internal [facility] Comment on above: Pain management Refill Request Start: 05-03-2023 ambulatory Сергей dolan MD Work Phone: Internal [facility] Comment on above: Pain management Start: 05-01-2023 ambulatory Сергей dolan MD Work Phone: [facility] Comment on above: Nurse Triage Call Start: 04-30-2023 ambulatory Сергей dolan MD Work Phone: Internal [facility] Comment on above: Cellulitis Start: 04-29-2023 ambulatory Сергей dolan MD Work Phone: [facility] Comment on above: Sinsus Start: 04-23-2023 End: 04-23-2023 Refill Сергей Espinoza MD Work Phone: [facility] Comment on above: Refill Request DON (dyspnea on exer tion) (Primary Dx); Palpitations; Essential hypertension; Pure hypercholesterolemia; Obstructive sleep apnea; DNR (do not resuscitate) Start: 04-16-2023 ambulatory Сергей dolan MD Work Phone: [facility] Comment on above: Diarrhea Start: 04-14-2023 Refill Сергей dolan MD Work Phone: Internal [facility] Comment on above: Refill Request Start: 04-06-2023 Refill Tomasa Ramirez APRN.INSPECTOR EYEGLASS Work Phone: Pulmonary Medicine Comment on above: Refill Request Start: 03-31-2023 Telephone encounter Sona Grier MD Work Phone: Pulmonary Medicine Comment on above: Patient Update Start: 02-19-2023 Refill Сергей dolan MD Work Phone: Internal [facility] Comment on above: Refill Request Appointment Start: 02-12-2023 Refill Aide Castillo APRN.INSPECTOR EYEGLASS Work Phone: [facility] Comment on above: Refill Request Start: 02-06-2023 Refill Brinda manley APRN.INSPECTOR EYEGLASS Work Phone: [facility] Comment on above: Refill Request Start: 02-01-2023 ambulatory Vidya Mayes RN NURSE O N CALL Comment on above: Patient Update Start: 01-29-2023 ambulatory СЕРГЕЙ Iyvi lity:[facility] Start: 01-29-2023 End: 01-29-2023 Subsequent hospital visit by physician [facility] Work Phone: Cardiology Lab Comment on above: SOB (shortness of br eath) [R06.02] Start: 01-21-2023 ambulatory Сергей dolan MD Work Phone: [facility] Comment on above: Prednisone Start: 01-19-2023 End: 01-19-2023 Office outpatient visit 25 minutes Сергей Espinoza MD Work Phone: [facility] Comment on above: Anxiety (Primary Dx) ; Encounter for immunization; Palpitations; Psoriasis; Primary hypertension; Sinus congestion Start: 01-12-2023 ambulatory Сергей dolan MD Work Phone: [facility] Comment on above: had to go to ER in [place] Start: 01-02-2023 ambulatory Сергей dolan MD Work Phone: [facility] Comment on above: Fatigue Start: 12-30-2022 Telephone encounter Sona Grier MD Work Phone: Pulmonary Medicine Comment on above: Medication Problem Start: 12-18-2022 Refill Brinda manley APRN.INSPECTOR EYEGLASS Work Phone: [facility] Comment on above: Refill Request Start: 12-16-2022 Telephone encounter Sona Grier MD Work Phone: Allergy Comment on above: Opened In Error Forms ([employer] - cpap ) Start: 12-08-2022 ambulatory СЕРГЕЙ [place] lity:[facility] Start: 12-02-2022 ambulatory Sona baldwin MD Work Phone: Pulmonary Medicine Comment on above: Merna Jamil Start: 11-28-2022 Telephone encounter Sona Grier MD Work Phone: Pulmonary Medicine Comment on above: Patient Question Start: 11-28-2022 ambulatory СЕРГЕЙ Jose M OLGA [facility] lity:[facility] Start: 11-28-2022 End: 11-28-2022 Subsequent hospital visit by physician Xr [facility] Radiology Comment on above: SOB (shortness of br eath) [R06.02] Start: 11-28-2022 End: 11-28-2022 Patient encounter procedure Sona Grier MD Work Phone: Pulmonary Medicine Comment on above: Mild persistent asth ma with acute exacerbation (Primary Dx); SOB (shortness of breath); Palpitations; JENNY on CPAP; Chronic respiratory failure with hypoxia (HCC); Idiopathic pulmonary fibrosis (HCC); Gastroesophageal reflux disease, unspecified whether esophagitis present; Allergic rhinitis, unspecified seasonality, unspecified trigger; Post-COVID syndrome; History of COVID-19 Start: 11-19-2022 Refill Aide Castillo APRN.INSPECTOR EYEGLASS Work Phone: Internal Medicine [place] Comment on above: Refill Request Start: 11-18-2022 ambulatory Darling Samuels RN [facility] Start: 11-18-2022 Follow-up encounter Darling Samuels RN NURSE LOSS PREVENTION AND SAFETY MANAGER Comment on above: Follow Up Start: 11-17-2022 ambulatory Sona baldwin MD Work Phone: Pulmonary Medicine Comment on above: Cpap supplies Start: 11-17-2022 Telephone encounter Sona Grier MD Work Phone: Pulmonary Medicine Comment on above: Orders Start: 11-16-2022 ambulatory Kenyon Zuniga APRN.INSPECTOR EYEGLASS Work Phone: Family Medicine [place] Comment on above: Zoloft Start: 11-11-2022 ambulatory Сергей dolan MD Work Phone: Family Medicine [place] Comment on above: Nurse Triage Call; B lood Pressure (/) Start: 11-10-2022 Telephone encounter Sona Grier MD Work Phone: Pulmonary Medicine Comment on above: Forms ([employer] - oxyg en) Start: 11-04-2022 ambulatory Sona baldwin MD Work Phone: [place] Start: 11-04-2022 Patient encounter procedure Na smita Grier MD Work Phone: Pulmonary Medicine Comment on above: Appointment Start: 10-27-2022 ambulatory Sona baldwin MD Work Phone: Pulmonary Medicine Comment on above: Migraine headaches Start: 10-24-2022 ambulatory СЕРГЕЙ [place] lity:[facility] Start: 10-24-2022 End: 10-24-2022 Office outpatient visit 25 minutes Al Woods PA-C Work Phone: Orthopaedics Comment on above: Primary osteoarthrit is of right shoulder (Primary Dx); Primary osteoarthritis of right hip; Primary osteoarthritis of right knee; Primary osteoarthritis of left knee Start: 10-24-2022 End: 10-24-2022 Subsequent hospital visit by physician [facility] Work Phone: Radiology Comment on above: Chronic right should er pain [M25.511, G89.29] Pain [R52] Start: 10-23-2022 ambulatory Сергей dolan MD Work Phone: Internal [facility] Comment on above: Fatigue Start: 10-22-2022 ambulatory Сергей dolan MD Work Phone: Internal [facility] Comment on above: Excressive sleeping Start: 10-21-2022 Refill Brinda manley APRN.CNP Work Phone: [facility] Comment on above: Refill Request Start: 10-20-2022 ambulatory Sona baldwin MD Work Phone: Pulmonary Medicine Comment on above: Oxygen and Cpap supp lies Start: 10-08-2022 Orders Only Al Woods PA-C Work Phone: Orthopaedics Comment on above: Pain (Primary Dx) Start: 10-07-2022 ambulatory Pcp (Historical) Appoin [facility] Start: 10-01-2022 ambulatory Pcp (Historical) Appoin [facility] Start: 09-23-2022 Refill Tomasa Ramirez APRN.INSPECTOR EYEGLASS Work Phone: Pulmonary Medicine Comment on above: Refill Request Start: 09-11-2022 ambulatory Сергей dolan MD Work Phone: Internal Medicine [place] Comment on above: Blood pressure Start: 09-08-2022 Telephone encounter Сергей Espinoza MD Work Phone: Internal Medicine [place] Comment on above: Medication Problem Start: 09-07-2022 Telephone encounter Brinda Dominguez APRN.INSPECTOR EYEGLASS Work Phone: Internal Medicine [place] Comment on above: Appointment Start: 09-05-2022 End: 09-05-2022 Office outpatient visit 25 minutes Brinda Dominguez APRN.INSPECTOR EYEGLASS Work Phone: Internal Medicine [place] Comment on above: Essential hypertensi on (Primary Dx); Primary osteoarthritis of both hips; DDD (degenerative disc disease), cervical; Closed fracture of one rib of left side with routine healing, subsequent encounter Start: 09-03-2022 End: 09-03-2022 Subsequent hospital visit by physician Noé [facility] Marcela Denise Work Phone: Radiology Comment on above: Right hip pain [M25. 551] Start: 08-23-2022 Refill Aide Castillo WEB PRODUCER.INSPECTOR EYEGLASS Work Phone: Internal Medicine [place] Comment on above: Refill Request Start: 08-22-2022 End: 08-22-2022 Office outpatient visit 25 minutes Сергей Espinoza MD Work Phone: Internal Medicine [place] Comment on above: Other fatigue (Prima ry Dx); Neck pain; Chronic nonintractable headache, unspecified headache type; Rib pain on left side Start: 08-21-2022 ambulatory Сергей dolan MD Work Phone: [facility] Comment on above: Nurse Triage Call My stomach and sever al bad headaches Start: 08-21-2022 Telephone encounter Сергей Espinoza MD Work Phone: [facility] Comment on above: DURABLE MEDICAL EQUI PMENT (CPAP supplies) Start: 08-15-2022 ambulatory Сергей dolan MD Work Phone: [facility] Comment on above: Nurse Triage Call Start: 08-14-2022 Refill Brinda Pro el WEB PRODUCER.INSPECTOR EYEGLASS Work Phone: [facility] Comment on above: Refill Request Upset stomach all th e timec Start: 07-10-2022 Refill Сергей dolan MD Work Phone: [facility] Comment on above: Refill Request Start: 07-09-2022 [facility] Start: 07-09-2022 End: 07-09-2022 Subsequent hospital visit by physician [facility] Radiology Comment on above: Lung nodules [R91.8] Start: 07-08-2022 ambulatory Сергей dolan MD Work Phone: [place] Start: 07-08-2022 Patient encounter procedure Talia Espinoza MD Work Phone: [facility] Comment on above: Appointment Start: 06-25-2022 Refill Brinda Pro el WEB PRODUCER.INSPECTOR EYEGLASS Work Phone: [facility] Comment on above: Refill Request Start: 06-23-2022 ambulatory Сергей dolan MD Work Phone: [facility] Comment on above: Insurance Change for Start: 06-18-2022 ambulatory Сергей dolan MD Work Phone: [facility] Comment on above: Nurse Triage Call Start: 06-12-2022 Refill Сергей dolan MD Work Phone: [facility] Comment on above: Refill Request Start: 06-11-2022 Refill Rica cota PA-C Work Phone: Orthopaedics Comment on above: Refill Request Start: 06-03-2022 ambulatory Сергей dolan MD Work Phone: [place] Start: 06-03-2022 Patient encounter procedure Talia Espinoza MD Work Phone: [facility] Comment on above: Appointment Start: 05-26-2022 Refill Aide Castillo APRN.INSPECTOR EYEGLASS Work Phone: [facility] Comment on above: Refill Request Start: 05-22-2022 End: 05-22-2022 Social Work Elder Chanel [facility] Primary [facility] Social Work Comment on above: Financial difficulty (Primary Dx) Pain in right hip [M 25.551] Start: 05-21-2022 End: 05-21-2022 Office outpatient visit 25 minutes Сергей Espinoza MD Work Phone: [facility] Comment on above: Idiopathic pulmonary fibrosis (HCC) (Primary Dx); Financial difficulties; Recurrent major depressive disorder, in full remission (HCC); Chronic respiratory failure with hypoxia (HCC); Essential hypertension; Anxiety Start: 05-10-2022 ambulatory Сергей dolan MD Work Phone: [facility] Comment on above: Lab test Start: 05-08-2022 End: 05-09-2022 ambulatory СЕРГЕЙ ESPINOZA Facility:[facility] Start: 05-08-2022 Telephone encounter Tomasa López ba, APRN.INSPECTOR EYEGLASS Work Phone: Pulmonary Medicine Comment on above: Insurance Authorizat ion Start: 05-06-2022 ambulatory Сергей dolan MD Work Phone: Internal Medicine [facility] [place] Start: 05-05-2022 End: 05-05-2022 Patient encounter procedure Tomasa Ramirez APRN.INSPECTOR [employer] Work Phone: Pulmonary Medicine Comment on above: Idiopathic pulmonary fibrosis (HCC) (Primary Dx); Chronic respiratory failure with hypoxia (HCC); Mild persistent asthma without complication; JENNY on CPAP; Lung nodule Start: 05-03-2022 ambulatory Sabine López RN NURSE LOSS PREVENTION AND SAFETY MANAGER Comment on above: Covid19 Concern Start: 05-01-2022 Refill Brinda manley WEB PRODUCER.[employer]OR [employer] Work Phone: [facility] Comment on above: Refill Request Start: 04-29-2022 Refill Brinda manley WEB PRODUCER.INSPECTOR [employer] Work Phone: Internal [facility] Comment on above: Refill Request Start: 04-25-2022 Refill Сергей dolan MD Work Phone: [facility] Comment on above: Refill Request Start: 04-24-2022 ambulatory Cord James WEB PRODUCER.INSPECTOR [employer] Work Phone: [place] Start: 04-24-2022 Patient encounter procedure Co rdt James CLAIRE.INSPECTOR [employer]YEGLASS Work Phone: Pulmonary Medicine Comment on above: Appointment Start: 04-23-2022 ambulatory Сергей dolan MD Work Phone: [facility] Comment on above: Shingles Start: 04-20-2022 Office outpatient ne w 30 minutes Unknown [facility] Start: 04-20-2022 ambulatory UNKNOWN UNKNOWN Facilit [id number] Comment on above: Apppointment have to reschedule Start: 04-17-2022 Get Medical Advice Sona Grier MD Work Phone: Pulmonary Medicine Comment on above: My refill on esbriet Start: 04-16-2022 ambulatory Sona baldwin MD Work Phone: Pulmonary Medicine Comment on above: My Esbriet prescript ion Start: 04-15-2022 Refill Brinda Guerrero PA-C Work Phone: Pulmonary Medicine Comment on above: Refill Request Start: 04-11-2022 ambulatory Sona baldwin MD Work Phone: Pulmonary Medicine Comment on above: Merna rehman t scan Start: 04-11-2022 Telephone encounter Sona Grier MD Work Phone: ID Provider Adult Comment on above: Appointment Start: 04-10-2022 End: 04-10-2022 Subsequent hospital visit by physician Elfego [facility]ly [facility], [facility] Ailin (I-Stat) Work Phone: CT Scan Comment on above: Interstitial pulmona ry disease (HCC) [J84.9] Start: 04-03-2022 Telephone encounter Tomasa López ba, APRN.INSPECTOR [employer] Work Phone: Pulmonary Medicine Comment on above: Appointment Start: 04-01-2022 ambulatory Сергей dolan MD Work Phone: [facility] [place] Comment on above: Nurse Triage Call Start: 03-31-2022 ambulatory Сергей dolan MD Work Phone: Internal Medicine [place] Comment on above: My blood pressure Start: 03-31-2022 End: 03-31-2022 Patient encounter procedure Tomasa Ramirez WEB PRODUCER.INSPECTOR [employer] Work Phone: Pulmonary Medicine Comment on above: Idiopathic pulmonary fibrosis (HCC) (Primary Dx); Chronic respiratory failure with hypoxia (HCC); Mild persistent asthma without complication; JENNY on CPAP Refill Request Start: 03-28-2022 Telephone encounter Sona Grier MD Work Phone: Pulmonary Medicine Comment on above: Patient Question (Re : Oxygen setting/level) Start: 03-25-2022 End: 03-25-2022 ambulatory Nurse Triage Chahal/Thao Work Phone: Nurse Phone Triage Comment on above: Nurse Triage Call (H eadache) Start: 03-19-2022 Telephone encounter Rica rosen PA-C Work Phone: Orthopaedics Comment on above: Appointment Start: 02-27-2022 Refill Brinda manley WEB PRODUCER.INSPECTOR [employer] Work Phone: [facility] Comment on above: Refill Request Start: 02-19-2022 Refill Brinda manley WEB PRODUCER.INSPECTOR [employer] Work Phone: [facility] Comment on above: Refill Request Start: 02-14-2022 End: 02-14-2022 Patient encounter procedure Сергей Espinoza MD Work Phone: [facility] Comment on above: Trochanteric bursiti s of right hip (Primary Dx); Right hip pain; Essential hypertension; Anxiety Start: 01-31-2022 Refill Brinda manley WEB PRODUCER.INSPECTOR [employer] Work Phone: [facility] Comment on above: Refill Request Start: 01-28-2022 End: 01-28-2022 ambulatory [facility] Comment on above: Radicular low back p ain (Primary Dx) Start: 12-31-2021 Refill Сергей dolan MD Work Phone: [facility] Comment on above: Refill Request Start: 12-30-2021 End: 12-30-2021 Subsequent hospital visit by physician Radio Bacon [place] Work Phone: Radiology Comment on above: Chronic pain of righ t knee [M25.561, G89.29] Start: 12-21-2021 ambulatory Сергей dolan MD Work Phone: [facility] Comment on above: Medication Euthyrox Start: 12-10-2021 Telephone encounter Сергей Espinoza MD Work Phone: [facility] Comment on above: Insurance Authorizat ion (Flovent Inhaler ) Start: 12-09-2021 Refill Сергей dolan MD Work Phone: [facility] Comment on above: Refill Request Start: 12-06-2021 ambulatory Сергей dolan MD Work Phone: [facility] Comment on above: Serrano Start: 12-05-2021 ambulatory Сергей dolan MD Work Phone: [place] Start: 12-05-2021 Patient encounter procedure Talia Espinoza MD Work Phone: [facility] Comment on above: Appointment Start: 12-03-2021 ambulatory Сергей dolan MD Work Phone: [place] Start: 12-03-2021 Patient encounter procedure Talia Espinoza MD Work Phone: [facility] Comment on above: Appointment Start: 12-02-2021 Refill Brinda Back-New Work Phone: Pulmonary Medicine Comment on above: Refill Request Start: 12-01-2021 ambulatory Сергей dolan MD Work Phone: [facility] Comment on above: Not a question Start: 11-30-2021 Refill Сергей dolan MD Work Phone: [facility] Comment on above: Alprazolam Start: 11-28-2021 Refill Сергей dolan MD Work Phone: [facility] Comment on above: Refill Request Start: 11-26-2021 ambulatory Сергей dolan MD Work Phone: [facility] Comment on above: Right hip and leg Start: 11-14-2021 Telephone encounter Сергей Espinoza MD Work Phone: [facility] Comment on above: Medication Problem Start: 11-13-2021 Get Medical Advice Tonie Espinoza MD Work Phone: [facility] Comment on above: About refill. For Fl uticadone Problems innate HFA Inhalation Aerosol Start: 11-09-2021 ambulatory Сергей dolan MD Work Phone: [facility] Comment on above: Post covid syndrome Start: 10-28-2021 End: 10-28-2021 Patient encounter procedure Sona Grier MD Work Phone: Pulmonary Medicine Comment on above: Interstitial pulmona ry disease (HCC) (Primary Dx); Mild persistent asthma without complication; Chronic respiratory failure with hypoxia (HCC); Obstructive sleep apnea; Gastroesophageal reflux disease, unspecified whether esophagitis present; Allergic rhinitis, unspecified seasonality, unspecified trigger; JENNY on CPAP; Post-COVID syndrome; History of COVID-19 Start: 10-11-2021 Refill Сергей dolan MD Work Phone: [facility] Comment on above: Refill Request Pain in right hip an d leg also in groin area Start: 10-04-2021 Refill Brinda manley WEB PRODUCER.INSPECTOR [employer] Work Phone: [facility] Comment on above: Refill Request Zach Webster Start: 09-20-2021 Refill Сергей dolan MD Work Phone: [facility] Comment on above: Refill Request Start: 09-20-2021 Refill Сергей dolan MD Work Phone: [facility] Comment on above: Refill Request Start: 09-18-2021 ambulatory Сергей dolan MD Work Phone: [facility] Comment on above: Fatigue Start: 09-05-2021 Refill Kenyon Zuniga APRN.INSPECTOR [employer]ASS Work Phone: [facility] Comment on above: Refill Request Start: 08-06-2021 Refill Brinda manley WEB PRODUCER.INSPECTOR [employer]ASS Work Phone: [facility] Comment on above: Refill Request Start: 07-30-2021 ambulatory Сергей dolan MD Work Phone: [facility] Comment on above: Blood pressure Start: 07-28-2021 ambulatory Сергей dolan MD Work Phone: [facility] Comment on above: Blood pressure Start: 07-25-2021 Refill Brinda manley WEB PRODUCER.INSPECTOR [employer]ASS Work Phone: [facility] Comment on above: Refill Request Start: 07-24-2021 End: 07-24-2021 Office outpatient visit 25 minutes Kenyon Zuniga APRN.INSPECTOR [employer] Work Phone: [facility] Comment on above: Fatigue, unspecified type (Primary Dx); Essential hypertension; Obstructive sleep apnea; Anxiety Start: 07-23-2021 ambulatory Сергей dolan MD Work Phone: Internal [facility] Comment on above: Fatigue Fatigued Start: 07-21-2021 Refill Sona baldwin MD Work Phone: Pulmonary Medicine Comment on above: Refill Request Start: 07-08-2021 Refill Brinda manley APRN.INSPECTOR [employer]ASS Work Phone: [facility] Comment on above: Refill Request Start: 07-04-2021 Telephone encounter Sona Grier MD Work Phone: Pulmonary Medicine Comment on above: Orders Start: 07-02-2021 Refill Сергей dolan MD Work Phone: [facility] Comment on above: Refill Request Start: 06-11-2021 Refill Сергей dolan MD Work Phone: [facility] Comment on above: Refill Request Start: 06-07-2021 Coordination of care plan Elder grant [facility] Primary Care Social Work Comment on above: Encounter for suppor t and coordination of transition of care (Primary Dx) Start: 06-07-2021 Telephone encounter Sona Grier MD Work Phone: Pulmonary Medicine Comment on above: Orders ([employer]- [employer] ) Start: 06-06-2021 Refill Сергей dolan MD Work Phone: [facility] Comment on above: Refill Request multiple problems Start: 06-04-2021 ambulatory Сергей dolan MD Work Phone: [facility] Comment on above: Merna Webster Start: 06-01-2021 ambulatory Сергей dolan MD Work Phone: [facility] Comment on above: Blood pressure Start: 05-31-2021 ambulatory Сергей dolan MD Work Phone: [facility] Comment on above: Test results Start: 05-30-2021 End: 05-30-2021 Patient encounter procedure Сергей Espinoza MD Work Phone: [facility] Comment on above: Pure hypercholestero lemia (Primary Dx); Idiopathic pulmonary fibrosis (HCC); Chronic respiratory failure with hypoxia (HCC); Nonintractable headache, unspecified chronicity pattern, unspecified headache type; Anxiety; Primary insomnia; Obstructive sleep apnea; Recurrent major depressive disorder, in full remission (HCC); Acquired hypothyroidism Procedures Date Procedure Procedure Detail Performing Clinician Start: 04-23-2024 Legionella pneumophi la antigen assay Dr. Сергей Espinoza MD Work Phone: Start: 04-07-[address] Сергей Espinoza MD Work Phone: Start: 09-25-2023 Co diffusing capacity N kirk Grier MD Work Phone: Start: 07-09-2023 Blood count complete automated Сергей Espinoza MD Work Phone: Start: 07-09-2023 Lipid panel Сергей Espinoza MD Work Phone: Start: 01-29-2023 Echo tthrc r-t 2d w/wom-mode compl spec&colr d Sona Grier MD Work Phone: Start: 01-19-2023 PFIZER-BIONTExosite COVI D-19 VACCINE ( SEASON) AGE 12+ YR Сергей Espinoza MD Work Phone: Start: 11-28-2022 Radiologic exam ches t 2 views Sona Grier MD Work Phone: Start: 10-24-2022 Arthrocentesis aspir &/inj major jt/bursa w/o us Al Woods PA-C Work Phone: Start: 10-24-2022 Radex shoulder compl ete minimum 2 views Сергей Espinoza MD Work Phone: Start: 09-03-2022 Radex spine cervical 4 or 5 views Сергей Espinoza MD Work Phone: Start: 08-22-2022 Blood count complete automated Сергей Espinoza MD Work Phone: Start: 05-22-2022 Radex hip unilateral with pelvis 2-3 views Hero Rubio PA-C Work Phone: Start: 04-10-2022 Ct thorax w/o contra st material Sona Grier MD Work Phone: Start: 12-30-2021 End: 12-30-2021 Radiologic exam knee complete 4/more views Сергей Espinoza MD Work Phone: Start: 05-30-2021 Blood count complete automated Сергей Espinoza MD Work Phone: Start: 05-30-2021 Lipid panel Сергей Espinoza MD Work Phone: Plan of Treatment Date Care Activity Detail Author Start: 07-08-2026 Diabetes Screening Diabetes Screening [facility] Start: 05-24-2026 Diabetes Screening Diabetes Screening [facility] Start: 05-12-2026 Urine microalbumin profile [facility] Start: 08-22-2025 DIABETES SCREEN DIABETES SCREEN [facility] Start: 08-22-2025 Diabetes Screening Diabetes Screening [facility] Start: 10-28-2024 DIABETES SCREEN DIABETES SCREEN [facility] Start: 05-30-2024 DIABETES SCREEN DIABETES SCREEN [facility] Start: 03-29-2024 End: 03-29-2024 Patient encounter procedure 03/29/2024 1:30 PM EST Office Visit Pulmonary Medicine [address] [place] [address] Kita Ocampo MD [address] [place] [id number] Interstitial pulmonary disease (HCC) [J84.9] Pulmonary Medicine Comment on above: Interstitial pulmonary disease (HCC) [J8 4.9] Start: 02-22-2024 End: 02-22-2024 Patient encounter procedure 02/22/2024 8:20 AM EST Office Visit Cardiology [address] [place] [id number] Roberto Howard MD [address] [place] [address] SOB (shortness of breath) [R06.02] Cardiology Comment on above: SOB (shortness of breath) [R06.02] Start: 11-11-2023 End: 11-11-2023 Patient encounter procedure 11/11/2023 3:00 PM EDT Office Visit Internal Medicine [place] [address] [address] Сергей Espinoza MD [address] [place] [address] 4 mo follow up Internal Medicine [place] Comment on above: 4 mo follow up Start: 11-05-2023 End: 11-05-2023 Patient encounter procedure 11/05/2023 3:00 PM EDT Office Visit Internal Medicine [address] [address] Сергей Espinoza MD [address] [place] [address] 4 mo follow up Internal Medicine [place] Comment on above: 4 mo follow up Start: 11-01-2023 Covid-19 Vaccine ( season) Covid-19 Vaccine ( season) [facility] Start: 11-01-2023 Covid-19 Vaccine ( season) Covid-19 Vaccine ( season) [facility] Start: 11-01-2023 Influenza vaccination Influenza Vaccine (#1) [facility] Start: 09-30-2023 End: 09-30-2023 Patient encounter procedure 09/30/2023 2:40 PM EDT Office Visit Cardiology [address] [place], [place] [id number] Igor Johnson DO [address] [place] [address] 3 month follow up Cardiology Comment on above: 3 month follow up Start: 09-25-2023 End: 09-25-2023 Patient encounter procedure 09/25/2023 3:00 PM EDT Office Visit Pulmonary Medicine [address] [address] Mouna Vuong APRN.INSPECTOR [employer] [address] [phone] Interstitial pulmonary disease (HCC) [J84.9] Pulmonary Medicine Comment on above: Interstitial pulmonary disease (HCC) [J8 4.9] Start: 09-25-2023 End: 09-25-2023 ambulatory 09/25/2023 2:15 PM EDT Procedure Pulmonary Medicine [address] [address] Interstitial pulmonary disease (HCC) [J84.9] Pulmonary Medicine Comment on above: Interstitial pulmonary disease (HCC) [J8 4.9] Start: 09-25-2023 End: 09-25-2023 ambulatory Pulmonary Medicine Comment on above: Interstitial pulmonary disease (HCC) [J8 4.9] Start: 09-18-2023 End: 09-18-2023 Patient encounter procedure 09/18/2023 2:00 PM EDT Appointment Cat Scan [address] [place] [address] Interstitial pulmonary disease (HCC) [J84.9] Cat Scan Comment on above: Interstitial pulmonary disease (HCC) [J8 4.9] Start: 08-29-2023 End: 08-29-2023 Patient encounter procedure 08/29/2023 11:20 AM EDT Office Visit Internal Medicine [place] [address] [address] Сергей Espinoza MD [address] [place], [place] [phone] 3 month follow up Internal Medicine [place] Comment on above: 3 month follow up Start: 08-28-2023 End: 08-28-2023 Patient encounter procedure 08/28/2023 2:30 PM EDT Office Visit Pulmonary Medicine [address] [phone] Mouna Vuong, WEB PRODUCER.INS[employer] [address] [address] follow up Pulmonary Medicine Comment on above: follow up Start: 08-28-2023 End: 08-28-2023 ambulatory Pulmonary Medicine Comment on above: Interstitial pulmonary disease (HCC) [J8 4.9] Start: 08-18-2023 End: 08-18-2023 Patient encounter procedure 08/18/2023 2:20 PM EDT Appointment Cat Scan [address] [place] [address] Interstitial pulmonary disease (HCC) [J84.9] Cat Scan Comment on above: Interstitial pulmonary disease (HCC) [J8 4.9] Start: 07-22-2023 End: 07-22-2023 Patient encounter procedure Radiology Comment on above: Interstitial pulmonary disease (HCC) [J8 4.9] follow up Start: 07-22-2023 End: 07-22-2023 ambulatory Pulmonary Medicine Comment on above: Interstitial pulmonary disease (HCC) [J8 4.9] Start: 07-17-2023 End: 07-17-2023 Patient encounter procedure 07/17/2023 2:20 PM EDT Office Visit Internal Medicine [place] [address] [phone] Сергей Espinoza MD [address] [place], [place] [phone] Getting things together to be able to go to [facility] and l also have to get approval for,Medicaid ok per Dr. espinoza Internal Medicine [place] Comment on above: Getting things together to be able to go to [facility] and l also have to get approval for,Medicaid ok per Dr. espinoza Start: 07-13-2023 End: 10-12-2023 Urinalysis complete panel - Urine URINALYSIS, WITH MICROSCOPIC Lab Routine Dysuria Expected: 07/13/2023, Expires: 10/12/2023 [facility] Work Phone: Comment on above: Expected: 07/13/2023, Expires: Start: 07-13-2023 End: 07-13-2023 ambulatory 07/13/2023 1:15 PM EDT Results Only Marcela Alto [facility] [address] [place] [address] [facility] Start: 07-10-2023 End: 10-09-2023 CBC W Auto Differential panel - Blood COMPLETE BLOOD COUNT AND DIFFERENTIAL Lab Routine Hyponatremia Anemia, unspecified type Expected: 07/10/2023, Expires: 10/09/2023 [facility] Comment on above: Expected: 07/10/2023, Expires: Start: 07-10-2023 End: 10-09-2023 Folate [Mass/volume] in Serum or Plasma FOLATE, SERUM Lab Routine Hyponatremia Anemia, unspecified type Expected: 07/10/2023, Expires: 10/09/2023 [facility] Comment on above: Expected: 07/10/2023, Expires: Start: 07-10-2023 End: 10-09-2023 Osmolality of Serum or Plasma OSMOLALITY Lab Routine Hyponatremia Anemia, unspecified type Expected: 07/10/2023, Expires: 10/09/2023 [facility] Comment on above: Expected: 07/10/2023, Expires: Start: 07-10-2023 End: 10-09-2023 Osmolality of Urine OSMOLALITY URINE Lab Routine Hyponatremia Anemia, unspecified type Expected: 07/10/2023, Expires: 10/09/2023 [facility] Comment on above: Expected: 07/10/2023, Expires: Start: 07-10-2023 End: 10-09-2023 RETICULOCYTE COUNT RETICULOCYTE COUNT Lab Routine Hyponatremia Anemia, unspecified type Expected: 07/10/2023, Expires: 10/09/2023 [facility] Comment on above: Expected: 07/10/2023, Expires: Start: 07-10-2023 End: 10-09-2023 Sodium [Moles/volume] in Urine collected for unspecified duration SODIUM RANDOM URINE Lab Routine Hyponatremia Anemia, unspecified type Expected: 07/10/2023, Expires: 10/09/2023 [facility] Work Phone: Comment on above: Expected: 07/10/2023, Expires: Start: 07-09-2023 End: 07-09-2023 Patient encounter procedure 07/09/2023 8:00 AM EDT Office Visit Internal Medicine [place] [address] [address] Сергей Espinoza MD [address] [place] [address] care home visit physical [place] per dr espinoza Internal Medicine [place] Comment on above: care home visit physical [place] per dr loan doaln Start: 07-08-2023 End: 07-08-2023 ambulatory 07/08/2023 2:00 PM EDT Results Only Marcela Argueta [facility] [address] [place] [address] Marcela Argueta [facility] Start: 07-07-2023 End: 07-07-2023 ambulatory 07/07/2023 2:30 PM EDT Results Only Marcela Argueta [facility] [address] [place] [address] Marcela Argueta [facility] Start: 06-30-2023 End: 06-30-2023 Patient encounter procedure 06/30/2023 3:00 PM EDT Office Visit Cardiology [address] [phone] Mouna Baez WEB PRODUCER.INSPECTOR [employer] [address] [address] follow up Cardiology Comment on above: follow up Start: 06-30-2023 End: 09-29-2023 Lipid 1996 panel - Serum or Plasma LIPID PANEL BASIC Lab Routine Pure hypercholesterolemia Expected: 06/30/2023, Expires: 09/29/2023 [facility] Work Phone: Comment on above: Expected: 06/30/2023, Expires: Start: 05-20-2023 Covid-19 Vaccine ( season) Covid-19 Vaccine () [facility] Start: 03-16-2023 Covid-19 Vaccine () Covid-19 Vaccine () [facility] Start: 03-02-2023 Advance Directive Discussion Advance Directive Discussion [facility] Start: 02-14-2023 ANNUAL PCP TEAM CHRONIC DISEASE VISIT ANNUAL PCP TEAM CHRONIC DISEASE VISIT [facility] Start: 12-13-2022 ANNUAL PCP TEAM CHRONIC DISEASE VISIT ANNUAL PCP TEAM CHRONIC DISEASE VISIT [facility] Start: 10-31-2022 Covid-19 Vaccine ( season) Covid-19 Vaccine () [facility] Start: 10-31-2022 Influenza vaccination [facility] Start: 07-24-2022 ANNUAL PCP TEAM CHRONIC DISEASE VISIT ANNUAL PCP TEAM CHRONIC DISEASE VISIT [facility] Start: 07-09-2022 End: 05-11-2023 Ct thorax w/o contrast material [facility] Work Phone: Comment on above: Expected: 07/09/2022, Expires: 4 1 Occurrences starti ng 07/09/2022 until 07/09/2022 Start: 05-30-2022 ANNUAL PCP TEAM CHRONIC DISEASE VISIT ANNUAL PCP TEAM CHRONIC DISEASE VISIT [facility] Start: 05-06-2022 End: 07-06-2022 SCHEDULE LAB TESTING SCHEDULE LAB TESTING Lab Routine Expected: 05/06/2022, Expires: 07/06/2022 [facility] Work Phone: Comment on above: Expected: 05/06/2022, Expires: 3 Start: 04-15-2022 COVID-19 VACCINE (5 - Pfizer series) COVID-19 VACCINE (5 - Pfizer series) [facility] Start: 03-02-2022 ADVANCE DIRECTIVE DISCUSSION ADVANCE DIRECTIVE DISCUSSION [facility] Start: 01-28-2022 End: 11-27-2022 Ct thorax w/o contrast material CT CHEST WO IVCON Radiology Routine Interstitial pulmonary disease (HCC) Expected: 01/28/2022, Expires: 11/27/2022 [facility] Work Phone: Comment on above: Expected: 01/28/2022, Expires: 3 Start: 10-31-2021 Influenza vaccination [facility] Start: 07-04-2021 COVID-19 VACCINE (4 - Booster for Pfizer series) COVID-19 VACCINE (4 - Booster for Pfizer series) [facility] Start: 05-01-2021 COVID-19 VACCINE (4 - Booster for Pfizer series) COVID-19 VACCINE (4 - Booster for Pfizer series) [facility] Start: 10-31-2020 Influenza vaccination INFLUENZA (#1) [facility] Start: 2016 RSV Vaccine (1 - 1-dose 75+ series) RSV Vaccine (1 - 1-dose 75+ series) [facility] Start: 09-05-2007 Screening for osteoporosis Bone Density Screening [facility] Start: 2001 RSV Vaccine (1 - 1-dose 60+ series) RSV Vaccine (1 - 1-dose 60+ series) [facility] Start: 1959 BP CONTROLLED (<130/80) BP CONTROLLED (<130/80) [facility] Start: 1947 PNEUMOCOCCAL: 65+ (1 - PCV) PNEUMOCOCCAL: 65+ (1 - PCV) [facility] CT Chest WO contrast CT CHEST WO IVCON Radiology Routine Interstitial pulmonary disease (HCC) 09/18/2023 2:41 PM EDT [facility] Work Phone: End: 11-29-2023 ECG COMPLETE ECG COMPLETE ECG Routine SOB (shortness of breath) 1 Occurrences starting 11/28/2022 until 11/29/2023 [facility] Work Phone: Comment on above: 1 Occurrences starting 11/28/2022 until 11/29/2023 End: 11-29-2023 Echocardiography ECHO Cardiology Routine SOB (shortness of breath) 1 Occurrences starting 11/28/2022 until 11/29/2023 [facility] Work Phone: Comment on above: 1 Occurrences starting 11/28/2022 until 11/29/2023 End: 11-27-2022 LUNG DIFFUSION CAPACITY (DLCO) LUNG DIFFUSION CAPACITY (DLCO) PFT Routine Interstitial pulmonary disease (HCC) 1 Occurrences starting 10/28/2021 until 11/27/2022 [facility] Work Phone: Comment on above: 1 Occurrences starting 10/28/2021 until 11/27/2022 End: 06-04-2023 LUNG DIFFUSION CAPACITY (DLCO) LUNG DIFFUSION CAPACITY (DLCO) PFT Routine Idiopathic pulmonary fibrosis (HCC) Chronic respiratory failure with hypoxia (HCC) Mild persistent asthma without complication 1 Occurrences starting 05/05/2022 until 06/04/2023 [facility] Work Phone: Comment on above: 1 Occurrences starting 05/05/2022 until 06/04/2023 End: 11-27-2022 LUNG VOLUMES LUNG VOLUMES PFT Routine Interstitial pulmonary disease (HCC) 1 Occurrences starting 10/28/2021 until 11/27/2022 [facility] Work Phone: Comment on above: 1 Occurrences starting 10/28/2021 until 11/27/2022 End: 06-04-2023 LUNG VOLUMES LUNG VOLUMES PFT Routine Idiopathic pulmonary fibrosis (HCC) Chronic respiratory failure with hypoxia (HCC) Mild persistent asthma without complication 1 Occurrences starting 05/05/2022 until 06/04/2023 [facility] Work Phone: Comment on above: 1 Occurrences starting 05/05/2022 until 06/04/2023 OUTSIDE VENDOR CARDI AC OUTPATIENT EXTENDED RHYTHM RECORDING (WITHOUT TELEMETRY) OUTSIDE VENDOR CARDIAC OUTPATIENT EXTENDED RHYTHM RECORDING (WITHOUT TELEMETRY) Holter Routine Palpitations Ordered: 01/19/2023 [facility] Work Phone: Comment on above: Ordered: 01/19/2023 OUTSIDE VENDOR CARDI AC OUTPATIENT EXTENDED RHYTHM RECORDING (WITHOUT TELEMETRY) OUTSIDE VENDOR CARDIAC OUTPATIENT EXTENDED RHYTHM RECORDING (WITHOUT TELEMETRY) Holter Routine DON (dyspnea on exertion) Palpitations Essential hypertension Pure hypercholesterolemia Obstructive sleep apnea DNR (do not resuscitate) Ordered: 04/23/2023 [facility] Work Phone: Comment on above: Ordered: 04/23/2023 End: 04-30-2023 OXIMETRY WITH AMBULATION OXIMETRY WITH AMBULATION PFT Routine Chronic respiratory failure with hypoxia (HCC) 1 Occurrences starting 03/31/2022 until 04/30/2023 [facility] Work Phone: Comment on above: 1 Occurrences starting 03/31/2022 until 04/30/2023 End: 09-21-2023 Radex spine cervical 4 or 5 views XR CERV OTHER 4V AP/LAT/OBL Radiology Routine Neck pain 1 Occurrences starting 08/22/2022 until 09/21/2023 [facility] Work Phone: Comment on above: 1 Occurrences starting 08/22/2022 until 09/21/2023 End: 06-04-2023 SPIROMETRY - BASELINE AND POST DILATOR SPIROMETRY - BASELINE AND POST DILATOR PFT Routine Idiopathic pulmonary fibrosis (HCC) Chronic respiratory failure with hypoxia (HCC) Mild persistent asthma without complication 1 Occurrences starting 05/05/2022 until 06/04/2023 [facility] Work Phone: Comment on above: 1 Occurrences starting 05/05/2022 until 06/04/2023 End: 11-27-2022 SPIROMETRY WITH DILATOR IF OBSTRUCTED SPIROMETRY WITH DILATOR IF OBSTRUCTED PFT Routine Interstitial pulmonary disease (HCC) 1 Occurrences starting 10/28/2021 until 11/27/2022 [facility] Work Phone: Comment on above: 1 Occurrences starting 10/28/2021 until 11/27/2022 End: 03-16-2023 XR HIP BILATERAL 5V PEL/AP/LAT EACH HIP XR HIP BILATERAL 5V PEL/AP/LAT EACH HIP Radiology Routine Right hip pain 1 Occurrences starting 02/14/2022 until 03/16/2023 [facility] Work Phone: Comment on above: 1 Occurrences starting 02/14/2022 until 03/16/2023 End: 11-07-2023 XR KNEE GENERAL 4V AP BOTH/PA BOTH/LAT/MERC BILATERAL XR KNEE GENERAL 4V AP BOTH/PA BOTH/LAT/MERC BILATERAL Radiology Routine Pain 1 Occurrences starting 10/08/2022 until 11/07/2023 [facility] Work Phone: Comment on above: 1 Occurrences starting 10/08/2022 until 11/07/2023 End: 09-21-2023 XR RIBS/CHEST 3V AP RIB/OBLS/CXR LEFT XR RIBS/CHEST 3V AP RIB/OBLS/CXR LEFT Radiology Routine Rib pain on left side 1 Occurrences starting 08/22/2022 until 09/21/2023 [facility] Work Phone: Comment on above: 1 Occurrences starting 08/22/2022 until 09/21/2023 [facility] Immunizations Immunization Date Immunization Notes Care Provider Johnie coles 01-19-2023 COVID-19 vaccine, ag e 12+ yr, season (PFIZER-BIONTECH) Сергей Espinoza MD Work Phone: [facility] 11-12-2022 influenza (HD-IIV4) vaccine, age 65+ yr, high dose, quadrivalent, PF (FLUZONE HIGH-DOSE) Kenyon Zuniga APRN.CNP Work Phone: [facility] 11-12-2022 influenza virus vacc ine, unspecified formulation Sona Grier MD Work Phone: [facility] 12-13-2021 COVID-19 booster vaccine, age 12+ yr, bivalent (PFIZER-BIONTECH) Сергей Espinoza MD Work Phone: [facility] 12-13-2021 influenza, high-dose , quadrivalent vaccine (FLUZONE HIGH DOSE QUADRIVALENT) Сергей Espinoza MD Work Phone: [facility] 12-13-2021 influenza virus vacc ine, unspecified formulation Сергей Espinoza MD Work Phone: [facility] 05-04-2020 COVID-19 vaccine, ag e 12+ yr (PFIZER-BIONTECH - PURPLE TOP) Сергей Espinoza MD Work Phone: [facility] Work Phone: 2020 COVID-19 vaccine, ag e 12+ yr (PFIZER-BIONTECH - PURPLE TOP) Сергей Espinoza MD Work Phone: [facility] 01-04-2020 influenza, high-dose , quadrivalent vaccine (FLUZONE HIGH DOSE QUADRIVALENT) Сергей Espinoza MD Work Phone: [facility] 11-03-2019 zoster vaccine recombinant Сергей Espinoza MD Work Phone: [facility] 08-18-2019 zoster vaccine recombinant Сергей Espinoza MD Work Phone: [facility] 12-15-2018 influenza, high dose seasonal, preservative-free Сергей Espinoza MD Work Phone: [facility] 01-28-2018 influenza, high dose seasonal, preservative-free Сергей Espinoza MD Work Phone: [facility] 12-26-2016 influenza, high dose seasonal, preservative-free Сергей Espinoza MD Work Phone: [facility] Work Phone: 05-12-2016 tetanus toxoid, redu kit diphtheria toxoid, and acellular pertussis vaccine, adsorbed Сергей Espinoza MD Work Phone: [facility] 03-25-2016 influenza, high dose seasonal, preservative-free Сергей Espinoza MD Work Phone: [facility] 10-10-2014 pneumococcal conjuga te vaccine, 13 valent Сергей Espinoza MD Work Phone: [facility] 12-20-2013 influenza, seasonal, injectable Сергей Espinoza MD Work Phone: [facility] 12-20-2013 pneumococcal polysaccharide vaccine, 23 valent Сергей Espinoza MD Work Phone: [facility] 01-12-2012 influenza virus vacc ine, unspecified formulation Сергей Espinoza MD Work Phone: [facility] Work Phone: 12-14-2009 influenza virus vacc ine, unspecified formulation Сергей Espinoza MD Work Phone: [facility] Work Phone: 01-09-2007 influenza virus vacc ine, unspecified formulation Сергей Espinoza MD Work Phone: [facility] 07-07-2006 pneumococcal polysaccharide vaccine, 23 valent Сергей Espinoza MD Work Phone: [facility] 12-31-2005 influenza virus vacc ine, unspecified formulation Сергей Espinoza MD Work Phone: [facility] 01-09-2005 influenza virus vacc ine, unspecified formulation Сергей Espinoza MD Work Phone: [facility] Work Phone: 12-05-2003 influenza virus vacc ine, unspecified formulation Сергей Espinoza MD Work Phone: [facility] 12-17-2002 influenza virus vacc ine, unspecified formulation Сергей Espinoza MD Work Phone: [facility] Payers Date Payer Category Payer Unknown [id number] 2023 Unknown [id number] 2023 Self-pay 2023 Medicaid MEDICAID [facility] MEDICAID [id number] 2023-Present [phone] [address] [place] [address] Medicaid [id number] 2021 Medicare HUMANA MEDICARE HUMANA GOLD PLUS [id number] 2021-Present [phone] [address] [address] [place] [address] O [id number] 2020 Medicare [id number]. [id number] 2020 Medicare [id number] 1940 Unknown [id number] Unknown [facility] PREFERRED MEDICARE PLAN Unknown COMMERCIAL OTHER [id number] Unknown [id number] Unknown [id number] 2.16.840.1.078338.3.579.2.462 Unknown [id number] 2.16840.1.454770.3.579.2.462 Unknown [id number] 2.16.840.1.105396.3.579.2.462 Unknown [id number] 2.16.840.1.334968.3.579.2.462 Unknown [id number] 2.16.840.1.872495.3.579.2.462 Unknown [id number] 2.16.840.1.292717.3.579.2.462 Unknown [id number] 2.16.840.1.892088.3.579.2.462 Unknown [id number] 2.16.840.1.360237.3.579.2.462 Unknown [id number] 2.16.840.1.529592.3.579.2.462 Unknown [id number] 2.16.840.1.937734.3.579.2.462 Unknown [id number] 2.16.840.1.892902.3.579.2.462 Unknown [id number] 2.16.840.1.495845.3.579.2.462 Unknown [id number] 2.16.840.1.917463.3.579.2.462 Unknown [id number] 2.16.840.1.798233.3.579.2.462 Unknown [id number] 2.16.840.1.836751.3.579.2.462 Unknown [id number] 2.16.840.1.866515.3.579.2.462 Unknown [id number] 2.16.840.1.380144.3.579.2.462 Unknown [id number] 2.16.840.1.263726.3.579.2.462 Unknown [id number] 2.16.840.1.776719.3.579.2.462 Unknown [id number] 2.16.840.1.107788.3.579.2.462 Unknown [id number] 2.16.840.1.859633.3.579.2.462 Unknown [id number] 2.16840.1.392752.3.579.2.462 Unknown [id number] 2.16.840.1.229062.3.579.2.462 Unknown [id number] 2.16.840.1.107502.3.579.2.462 Unknown [id number] 2.16840.1.186671.3.579.2.462 Unknown [id number] 2.16840.1.143169.3.579.2.462 Unknown [id number] 2.16840.1.893603.3.579.2.462 Unknown [id number] 2.840.1.628917.3.579.2.462 Social History Date Type Detail Facility Start: 02-15-2012 End: 12-03-2023 Tobacco smoking status NHIS Never smoked tobacco [facility] Start: 12-21-2020 End: 09-25-2023 Alcohol intake Current non-drinker of alcohol (finding) [facility] Start: 05-29-2021 End: 02-13-2022 History SDOH Alcohol Frequency 1 [facility] Start: 05-29-2021 End: 02-13-2022 History SDOH Alcohol Std Drinks 98 [facility] Start: 05-29-2021 End: 02-13-2022 History SDOH Social Connections Phone 5 [facility] Start: 05-29-2021 End: 02-13-2022 History SDOH Social Connections Get Together 2 [facility] Start: 05-29-2021 End: 02-13-2022 History SDOH Social Connections Jewish 3 [facility] Start: 05-29-2021 History SDOH Physical Activity DPW 7 [facility] Start: 05-17-2019 Education 12 [facility] Start: 1940 Sex Assigned At Female [facility] Start: 05-20-2021 End: 12-30-2021 Exposure to SARS-CoV-2 (event) Not sure [facility] Start: 02-15-2012 End: 03-24-2023 Tobacco use and exposure Smokeless tobacco non-user [facility] Start: 02-13-2022 History SDOH Alcohol Std Drinks 0 [facility] Start: 02-12-2022 End: 08-25-2023 Never a smoker Never a smoker [facility] Start: 02-12-2022 End: 08-25-2023 Social connection and isolation panel [facility] How often do you get together with friends or relatives? Patient refused [facility] Do you belong to any clubs or organizations such as yazidism groups, unions, fraAdWhirl or athletic groups, or school groups? Yes [facility] Are you now , , , , never or living with a partner? [facility] How often to you hav e a drink containing alcohol? Never [facility] Do you feel stress - tense, restless, nervous, or anxious, or unable to sleep at night because your mind is troubled all the time - these days [OSQ] To some extent [facility] (I/We) worried casey er (my/our) food would run out before (I/we) got money to buy more. Never true [facility] At any time in the p ast 12 months, were you homeless or living in fci [including now]? No [facility] Start: 03-30-2020 Gender identity Identifies as female gender (finding) [facility] Start: 03-30-2020 Sexual orientation Heterosexual (finding) [facility] History of tobacco use Passive smoker [facility] How hard is it for y ou to pay for the very basics like food, housing, medical care, and heating Not very hard [facility] Do you feel stress - tense, restless, nervous, or anxious, or unable to sleep at night because your mind is troubled all the time - these days [OSQ] Very much [facility] Do you feel stress - tense, restless, nervous, or anxious, or unable to sleep at night because your mind is troubled all the time - these days [OSQ] Only a little [facility] Start: 06-07-2024 Sex Female (finding) [facility] Goals Date Patient Goal Desired Activity /State Personal health goal Clinical Notes 05-22-2016 to 01-25-2024 Telephone Encounter - Lorene Jauregui LPN - 01/25/2024 8:29 AM ESTTelephone Encounter - Lorene Jauregui LPN - 01/25/2024 8:29 AM ESTTelephone Encounter - Elisabeth Barber MA - 12/31/2023 3:19 PM EDT Note Date & Type Note Facility 01-25-2024 Telephone encounter Note Fax received from [facility] requesting sleep study and office visit notes supporting use of cpap. Sleep study from 2016 as well as office visit notes from 11/28/22 and 09/25/23 faxed to [facility] at [phone]. Transmission successful, paperwork in fax drawer. [facility] 01-25-2024 Miscellaneous Notes Fax received from [facility] requesting sleep study and office visit notes supporting use of cpap. Sleep study from 2015 as well as office visit notes from 11/28/22 and 09/25/23 faxed to [facility] at [phone]. Transmission successful, paperwork in fax drawer. documented in this encounter [facility] 12-31-2023 Telephone encounter Note Fax received from [facility] for orders for Oxygen Concentrator and Supplies. [id number],E1392,A4615,A4616. 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 Placed in Dr. Grier's office to be signed. [facility] 12-31-2023 Miscellaneous Notes Fax received from [facility] for orders for Oxygen Concentrator and Supplies. E1390,E1392,A4615,A4616. 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 Placed in Dr. Grier's office to be signed. documented in this encounter [facility] 09-25-2023 History of Present illness Narrative Images from the original note were not included. Pulmonary Medicine Patients name: Merna Webster PCP: Сергей Espinoza MD CC: follow-up HPI: Merna Webster is a 83 year old female who presents today for follow-up with PFT's. She has a past medical history of never smoker, JENNY, Asthma, IPF, chronic hypoxic respiratory failure, GERD, HTN, and OA. Current inhaler therapy includes Flovent and PRN Albuterol. She is also on Esbriet. She was last seen by Dr. Grier 03/24/2023 with the following recommendations: 1. Mild persistent asthma (primary diagnosis) Continue inhaled corticosteroids Flovent generic versus an Arnuity - Albuterol MDI 2 puffs with spacer prn 2. Idiopathic pulmonary fibrosis (HCC) - ICD9: 516.31, ICD10: J84.112 -Restrictive lung disease, severely reduced DLCO -Normal connective-tissue disease workup -Could not tolerate Ofev -Patient tolerating Esbriet since August 2018 liver function tests normal We will treat for possible acute exacerbation of IPF with course of doxycycline and steroids Echocardiogram 12/2022 rvsp 35 I filled out the form for patient assistance program 3. Chronic respiratory failure with hypoxia (HCC) - ICD9: 518.83, 799.02, ICD10: J96.11 - Continue supplemental oxygen. Currently using 2-3L NC - DME: [employer] 4. Obstructive sleep apnea on cpap - Compliant with nightly use and benefiting - patient's cpap machine is over 5 years old and broken beyond repair Requested a new one last visit 5. Gastroesophageal reflux disease, unspecified whether esophagitis present - ICD9: 530.81, ICD10: K21.9 - Discussed lifestyle modifications including losing weight, limiting caffeine, no meals three hours before sleep and head of bed elevation -Well controlled on Nexium 6. Allergic rhinitis, unspecified seasonality, unspecified trigger - ICD9: 477.9, ICD10: J30.9 - Well controlled on Flonase and Maria C Since her last visit, she had a cough and runny nose and was treated with Prednisone and antibiotics. Otherwise, she reports doing well. She moved into a care home with her at the beginning of June which has been helpful. Current symptoms include daily cough with clear phelgm but it's not overly bothersome. No hemoptysis. Rare wheezing. Has dyspnea on exertion with showering and grooming (unchanged). No dyspnea at rest. No fevers, chills, or night sweats. Mild lower extremity edema. GERD controlled on Nexium. No recent hospitalizations or ED visits or upper respiratory infections. Albuterol use 2-3 times a week. Currently on 3L O2. Compliant with CPAP, was replaced since her last visit. DME: [employer], O2 and CPAP PAST MEDICAL HISTORY Diagnosis Date Apnea cpap Asthma Asthma Bowel disease Degeneration of lumbar or lumbosacral intervertebral disc significant Diverticulosis of colon (without mention of hemorrhage) Dysthymic disorder Depression (non-psychotic) Esophageal reflux Gastroesophageal reflux Hypothyroidism 05/22/2016 Migraine Obstructive sleep apnea osteoporosis T11 mild compression. Other and unspecified hyperlipidemia needs med Snoring Thyroid disorder Unspecified essential hypertension Essential hypertension Allergies: Rofecoxib Itching Comment:heart palpitations,red blotching on face Amoxicillin Intolerance Comment:Swelling in her eye. Aspirin Comment:heart palpitations Doxycycline GI Upset Ibuprofen Comment:face swells Lisinopril GI Upset Comment:Acid reflux Seasonal Allergies Intolerance Singulair [[place]el[place]* Rash Sulfa (Sulfonamide * Comment:rash Zoloft [Sertraline] Diarrhea Medication List Accurate as of September 25, 2023 10:15 AM. If you have any questions, ask your nurse or doctor. CONTINUE taking these medications ALPRAZolam 1 mg tablet Commonly known as: XANAX Take 1 tablet by mouth three times a day as needed for sedation or anxiety for up to 30 days. betamethasone valerate 0.1 % ointment Apply to affected area two times a day. cloNIDine HCl 0.1 mg tablet Commonly known as: CATAPRES take 1 tablet twice daily COMPOUNDED PRESCRIPTION Please dispense an oxygen concentrator and a portable oxygen concentrator and all necessary accessories to be used at 2L/min NC with exertion. CPAP/BIPAP/OTHER Type .CPAPSettings into a note to see current settings/supplies/DME information. erythromycin 5 mg/gram (0.5 %) ophthalmic ointment Commonly known as: ROMYCIN esomeprazole 40 mg capsule Commonly known as: NexIUM Take 1 capsule by mouth daily before breakfast. EXCEDRIN ASPIRIN FREE ORAL fexofenadine 180 mg tablet Commonly known as: MARIA C * fluticasone 50 mcg/actuation nasal spray Commonly known as: FLONASE Use 1 [place] in each nostril once daily. * fluticasone 110 mcg/actuation inhaler Commonly known as: FLOVENT Inhale 1 Puff as instructed two times a day. Shake well before use. Rinse mouth after use. gabapentin 100 mg capsule Commonly known as: NEURONTIN Inhalational Spacing Device Commonly known as: AEROCHAMBER 1 Device as directed. levalbuterol tartrate HFA 45 mcg/actuation inhaler INHALE 1-2 PUFFS INSTRUCTED EVERY 4 HOURS NEEDED FOR WHEEZING/SHORTNESS OF BREATH. levothyroxine 75 mcg tablet Commonly known as: SYNTHROID Take 0.5 tablets by mouth once daily. nortriptyline 75 mg capsule Commonly known as: PAMELOR Take 1 capsule by mouth daily at bedtime. OXYGEN (HOME THERAPY) Please dispense an oxygen concentrator, a portable oxygen concentrator and all necessary accessories to be used at 2L/min NC with exertion and with sleep. pirfenidone 801 mg tablet Commonly known as: ESBRIET Take 1 tablet by mouth three times a day. pravastatin 40 mg tablet Commonly known as: PRAVACHOL take 1 tablet at bedtime promethazine 12.5 mg tablet Commonly known as: PHENERGAN Take 1 tablet by mouth every 6 hours as needed (Headache). SUMAtriptan 100 mg tablet Commonly known as: IMITREX Take 1 tablet (100 mg) by mouth as needed for migraine headache (see administration instructions). at onset of headache.May repeat after 2 hours. triamcinolone acetonide 0.5 % cream Commonly known as: KeNALog Apply to affected area three times a day. verapamil SR 240 mg CR tablet Commonly known as: CALAN SR Take 1 tablet by mouth daily at bedtime. * This list has 2 medication(s) that are the same as other medications prescribed for you. Read the directions carefully, and ask your doctor or other care provider to review them with you. DATA: I personally reviewed and analyzed all labs, radiographs and available pulmonary function testing PFT: 09/25/23 CXR: Last XR Chest - Impression Only XR CHEST 2V FRONTAL/LAT Exam End: 11/28/2022 12:10 PM (Final result) Impression: IMPRESSION: Extensive chronic changes of interstitial lung disease. While no definite acute pathology can be identified it could be easily obscured ... CT Chest: 09/17/2023 IMPRESSION: Interstitial lung disease. The pattern and distribution are compatible with UIP. Director Foundation: [facility] Transcribe Date/Time: Sep 24 2023 8:39A Dictated by : MIGUEL ROJO MD This examination was interpreted and the report reviewed and electronically signed by: MIGUEL ROJO MD on Sep 24 2023 12:05PM EST Results-Findings * * *Final Report* * * DATE OF EXAM: Sep 18 2023 2:41PM [facility] 0541 - CT CHEST WO IVCON / PROCEDURE REASON: Interstitial pulmonary disease (HCC) * * * * Physician Interpretation * * * * EXAMINATION: CHEST CT WITHOUT CONTRAST CLINICAL HISTORY: Interstitial lung disease. Technique: Spiral CT acquisition of the chest from the thoracic inlet to the upper abdomen without contrast. The study was performed following HRCT protocol. MQ: [id number] CT Radiation dose: Integrated Dose-length product (DLP) for this visit = 207 mGy*cm CT Dose Reduction Employed: Automated exposure control(AEC) and iterative recon Comparison: CT chest on 07/09/2022 RESULT: Limitations: None. Lines, tubes, and devices: None. Lung parenchyma and airways: The central airways are patent. There are diffuse reticular opacities throughout both lungs. Honeycombing, traction bronchiectasis and architectural distortion are visualized. No groundglass opacities seen. No masses. Pleural space: No pleural effusion. No pleural thickening. Lower neck, lymph nodes, and mediastinum: The imaged thyroid gland is normal. No lymphadenopathy in the supraclavicular, axillary, mediastinal, or hilar regions, although multiple subcentimeter in short axis mediastinal lymph nodes are visualized. A small hiatal hernia is noted. Heart, pericardium, and thoracic vessels: Stable cardiac chambers, thoracic aorta and central pulmonary arteries. No pericardial effusion/thickening. Linear and punctate calcifications seen in the coronary circulations. Bones and soft tissues: The spine shows degenerative changes. No destructive bone lesion. Chest wall is unremarkable. Upper abdomen: Limited study through the upper abdomen demonstrates no interval changes. Localizer images: No additional findings. Echo: 12/2022 CONCLUSIONS: - Exam indication: Suspected pulmonary hypertension - The left ventricle is normal in size. Left ventricular systolic function is normal. EF = 57 5% (2D biplane) Indeterminate left ventricular diastolic dysfunction. - The right ventricle is normal in size. Right ventricular systolic function is normal. - The left atrial cavity is mildly dilated. - There is trace to mild (1+) mitral regurgitation. - There is mild (1+) tricuspid regurgitation. - There is trivial to mild aortic regurgitation. - Estimated right ventricular systolic pressure is 35 mmHg consistent with normal pulmonary artery pressures. Estimated right atrial pressure is 3 mmHg based on IVC assessment. - Exam was compared with the prior CC echocardiographic exam performed on 01/24/20. There is now trivial to mild aortic regurgitation. Labs: WBC (k/uL) Date Value 07/14/2023 7.45 12/21/2020 5.56 RBC (m/uL) Date Value 07/14/2023 3.43 12/21/2020 3.86 Hemoglobin (g/dL) Date Value 07/14/2023 11.1 12/21/2020 12.1 Hematocrit (%) Date Value 07/14/2023 35.2 12/21/2020 36.7 Platelet Count (k/uL) Date Value 07/14/2023 235 12/21/2020 211 MPV (fL) Date Value 07/14/2023 9.6 12/21/2020 9.4 Neut% (%) Date Value 12/21/2020 74.7 Neutrophils % (%) Date Value 07/14/2023 64.2 Eosin% (%) Date Value 12/21/2020 0.9 Eosinophils % (%) Date Value 07/14/2023 5.1 Baso% (%) Date Value 12/21/2020 0.2 Basophils % (%) Date Value 07/14/2023 0.8 Abs Neut (ANC) (k/uL) Date Value 12/21/2020 4.15 Abs Neut (k/uL) Date Value 07/14/2023 4.78 Abs Routt (k/uL) Date Value 07/14/2023 0.80 12/21/2020 0.53 Abs Eosin (k/uL) Date Value 07/14/2023 0.38 12/21/2020 0.05 Abs Baso (k/uL) Date Value 07/14/2023 0.06 12/21/2020 <0.03 IMMUNIZATIONS Prevnar - xx Pneumovax 23 - xx Influenza - 10/2022 COVID-19 - 12/2022 RSV- xx Review of Systems Constitutional: Negative for activity change and appetite change. HENT: Positive for postnasal drip. Negative for mouth sores, sinus pressure and sinus pain. Respiratory: Positive for cough and shortness of breath. Negative for chest tightness and wheezing. Cardiovascular: Negative for chest pain and palpitations. Allergic/Immunologic: Positive for environmental allergies. Neurological: Positive for headaches. BP 167/86 Pulse 79 Wt 60.3 kg (132 lb 15 oz) SpO2 99% BMI 24.31 kg/m Physical Exam Vitals reviewed. Constitutional: General: She is not in acute distress. Appearance: Normal appearance. She is normal weight. She is not ill-appearing. HENT: Head: Normocephalic. Nose: No rhinorrhea. Mouth/Throat: Mouth: Mucous membranes are moist. Pharynx: No oropharyngeal exudate. Cardiovascular: Rate and Rhythm: Normal rate and regular rhythm. Heart sounds: Normal heart sounds. Pulmonary: Effort: Pulmonary effort is normal. Breath sounds: No wheezing. Comments: Crackles b/l bases Musculoskeletal: Right lower leg: No edema. Left lower leg: No edema. Skin: General: Skin is warm and dry. Neurological: General: No focal deficit present. Mental Status: She is alert. ASSESSMENT/PLAN: 1. Idiopathic pulmonary fibrosis (HCC) - ICD9: 516.31, ICD10: J84.112 (primary diagnosis) - spirometry and chest CT reviewed with patient today. Shows restrictive lung disease with severely reduced DLCO - Continue Esbriet, started August 2018 - previously on Ofev, did not tolerate 2. Mild persistent asthma without complication - ICD9: 493.90, ICD10: J45.30 - continue Flovent 110, 1 puff BID - Albuterol 2 puffs with spacer prn - Avoidance of triggers recommended - Asthma education: Reviewed asthma signs, symptoms and monitoring, Instruction on inhalation device/technique, Environmental control: avoidance of precipitants and use of allergy medications, and Rinsing after each inhaled steroid use 3. Chronic respiratory failure with hypoxia (HCC) - ICD9: 518.83, 799.02, ICD10: J96.11 - on 3L O2 chronically - DME: [employer] - unable to perform oximetry with ambulation today d/t unable to walk 4. Obstructive sleep apnea - ICD9: 327.23, ICD10: G47.33 - complaint and continues to benefit from CPAP use 5. Gastroesophageal reflux disease, unspecified whether esophagitis present - ICD9: 530.81, ICD10: K21.9 - controlled with Nexium F/u 6 months Portions of this documentation were copied and pasted from previous office visit notes in order to provide a cohesive continuity of the history. The note has been reviewed and edited and updated as necessary. Ofelia Cruz APRN.CNP Associated attestation - Mouna Vuong APRN.CNP - 09/26/2023 7:45 AM EDT Attending Note I have personally performed a face to face assessment of the patient and have reviewed the PA/RECREATION SUPERINTENDENT note. Agree with plan as stated Mouna Vuong APRN-TREVA Pulmonary Medicine documented in this encounter [facility] 09-25-2023 Note HNO ID: [id number] Author: OFELIA CRUZ APRN.CNP Service: ? Author Type: Nurse Practitioner Type: Progress Notes Filed: 09/26/2023 07:45 Note Text: Attestation signed by Mouna Vuong APRN.CNP at 09/26/2023 7:45 AM Attending Note I have personally performed a face to face assessment of the patient and have reviewed the PA/RECREATION SUPERINTENDENT note. Agree with plan as stated Mouna Vuong APRN-TREVA Pulmonary Medicine Pulmonary Medicine Patients name: Merna Webster PCP: Сергей Espinoza MD CC: follow-up HPI: Merna Webster is a 83 year old female who presents today for follow-up with PFT's. She has a past medical history of never smoker, JENNY, Asthma, IPF, chronic hypoxic respiratory failure, GERD, HTN, and OA. Current inhaler therapy includes Flovent and PRN Albuterol. She is also on Esbriet. She was last seen by Dr. Grier 03/24/2023 with the following recommendations: 1. Mild persistent asthma (primary diagnosis) Continue inhaled corticosteroids Flovent generic versus an Arnuity - Albuterol MDI 2 puffs with spacer prn 2. Idiopathic pulmonary fibrosis (HCC) - ICD9: 516.31, ICD10: J84.112 -Restrictive lung disease, severely reduced DLCO -Normal connective-tissue disease workup -Could not tolerate Ofev -Patient tolerating Esbriet since August 2018 liver function tests normal We will treat for possible acute exacerbation of IPF with course of doxycycline and steroids Echocardiogram 12/2022 rvsp 35 I filled out the form for patient assistance program 3. Chronic respiratory failure with hypoxia (HCC) - ICD9: 518.83, 799.02, ICD10: J96.11 - Continue supplemental oxygen. Currently using 2-3L NC - DME: [employer] 4. Obstructive sleep apnea on cpap - Compliant with nightly use and benefiting - patient's cpap machine is over 5 years old and broken beyond repair Requested a new one last visit 5. Gastroesophageal reflux disease, unspecified whether esophagitis present - ICD9: 530.81, ICD10: K21.9 - Discussed lifestyle modifications including losing weight, limiting caffeine, no meals three hours before sleep and head of bed elevation -Well controlled on Nexium 6. Allergic rhinitis, unspecified seasonality, unspecified trigger - ICD9: 477.9, ICD10: J30.9 - Well controlled on Flonase and Maria C Since her last visit, she had a cough and runny nose and was treated with Prednisone and antibiotics. Otherwise, she reports doing well. She moved into a care home with her at the beginning of June which has been helpful. Current symptoms include daily cough with clear phelgm but it's not overly bothersome. No hemoptysis. Rare wheezing. Has dyspnea on exertion with showering and grooming (unchanged). No dyspnea at rest. No fevers, chills, or night sweats. Mild lower extremity edema. GERD controlled on Nexium. No recent hospitalizations or ED visits or upper respiratory infections. Albuterol use 2-3 times a week. Currently on 3L O2. Compliant with CPAP, was replaced since her last visit. DME: [employer], O2 and CPAP PAST MEDICAL HISTORY Diagnosis Date Apnea cpap Asthma Asthma Bowel disease Degeneration of lumbar or lumbosacral intervertebral disc significant Diverticulosis of colon (without mention of hemorrhage) Dysthymic disorder Depression (non-psychotic) Esophageal reflux Gastroesophageal reflux Hypothyroidism 05/22/2016 Migraine Obstructive sleep apnea osteoporosis T11 mild compression. Other and unspecified hyperlipidemia needs med Snoring Thyroid disorder Unspecified essential hypertension Essential hypertension Allergies: Rofecoxib Itching Comment:heart palpitations,red blotching on face Amoxicillin Intolerance Comment:Swelling in her eye. Aspirin Comment:heart palpitations Doxycycline GI Upset Ibuprofen Comment:face swells Lisinopril GI Upset Comment:Acid reflux Seasonal Allergies Intolerance Singulair [Monteluk* Rash Sulfa (Sulfonamide * Comment:rash Zoloft [Sertraline] Diarrhea Medication List Accurate as of September 25, 2023 10:15 AM. If you have any questions, ask your nurse or doctor. CONTINUE taking these medications ALPRAZolam 1 mg tablet Commonly known as: XANAX Take 1 tablet by mouth three times a day as needed for sedation or anxiety for up to 30 days. betamethasone valerate 0.1 % ointment Apply to affected area two times a day. cloNIDine HCl 0.1 mg tablet Commonly known as: CATAPRES take 1 tablet twice daily COMPOUNDED PRESCRIPTION Please dispense an oxygen concentrator and a portable oxygen concentrator and all necessary accessories to be used at 2L/min NC with exertion. CPAP/BIPAP/OTHER Type .CPAPSettings into a note to see current settings/supplies/DME information. erythromycin 5 (more content not included)... [facility] 09-25-2023 Note HNO ID: [id number] Author: ZAYRA MOON RRT Service: ? Author Type: Registered Resp Therapist Type: Progress Notes Filed: 09/25/2023 13:49 Note Text: PULM FUNCTION: Provider: Mouna Vuong APRN.INSPECTOR EYEGLASS Spirometry: 1 DLCO: 1 LV - Box: 1 [facility] 09-25-2023 History of Present illness Narrative PULM FUNCTION: Provider: Mouna Vuong APRN.CNP Spirometry: 1 DLCO: 1 LV - Box: 1 documented in this encounter [facility] 09-18-2023 History of Present illness Narrative Radiology Service Progress Note PATIENT NAME: Merna Webster DATE OF SERVICE: September 18, 2023 TIME: 3:06 PM PATIENT IDENTITY VERIFICATION COMPLETED USING TWO (2) IDENTIFIERS: Name and Date of confirmed by patient verbally. FALL SCREENING: Has the patient had 2 falls in the last year or 1 fall with injury or currently using an Ambulatory Assistive Device (Walker, Cane, Wheelchair, Crutches, etc.)? No PATIENT GENDER DATA: Female. status: : No status: NO. PATIENT RELEVANT IMPLANT DATA REVIEWED: Not Applicable PATIENT PRESENTS WITH AN IMPLANTABLE OR ATTACHED FLOOR REPRESENTATIVE: No RADIOLOGY DEPARTMENT: CT; Exam(s) Completed: Chest PERIPHERAL IV DATA: Not applicable SIGNED BY: RT Carlos(R) September 18, 2023 3:06 PM documented in this encounter [facility] 09-18-2023 Note HNO ID: [id number] Author: CHEYENNE ROTH RT(Ebony) Service: ? Author Type: Asic Design Engineer Type: Progress Notes Filed: 09/18/2023 15:06 Note Text: Radiology Service Progress Note PATIENT NAME: Merna Webster DATE OF SERVICE: September 18, 2023 TIME: 3:06 PM PATIENT IDENTITY VERIFICATION COMPLETED USING TWO (2) IDENTIFIERS: Name and Date of confirmed by patient verbally. FALL SCREENING: Has the patient had 2 falls in the last year or 1 fall with injury or currently using an Ambulatory Assistive Device (Walker, Cane, Wheelchair, Crutches, etc.)? No PATIENT GENDER DATA: Female. status: : No status: NO. PATIENT RELEVANT IMPLANT DATA REVIEWED: Not Applicable PATIENT PRESENTS WITH AN IMPLANTABLE OR ATTACHED FLOOR REPRESENTATIVE: No RADIOLOGY DEPARTMENT: CT; Exam(s) Completed: Chest PERIPHERAL IV DATA: Not applicable SIGNED BY: RT Carlos(R) September 18, 2023 3:06 PM [facility] 09-15-2023 Telephone encounter Note No messages in chart from this office that patient was called recently. Looks like she has an appt for a scan in [place] this Thursday, may have been reminder call? [facility] 09-15-2023 Miscellaneous Notes No messages in chart from this office that patient was called recently. Looks like she has an appt for a scan in [place] this Thursday, may have been reminder call? Patient returning call from office Please advise documented in this encounter [facility] 09-15-2023 Telephone encounter Note Patient returning call from office Please advise [facility] 09-09-2023 Telephone encounter Note Spoke with [facility] pharmacy Advised pt will be getting from another pharmacy, [facility] Spoke with Lavinia pharmacist [facility] 09-09-2023 Miscellaneous Notes Spoke with [facility] pharmacy Advised pt will be getting from another pharmacy, [facility] Spoke with Lavinia pharmacist Patient called in stating she wants to use [facility] Received request on 09/02/23 for esbriet from [facility] and this was sent in for a year's supply. Now [facility] requesting refills. Voicemail left for patient to return call to find out which pharmacy she is using for this prescription. Pharmacy verified in Epic The phone number for [facility] in case of any questions. [phone] Patient has been identified by name and date of : Yes Patient aware RX will be sent to pharmacy. No need to notify patient. Patient phones for refill(s): Requested Prescriptions Pending Prescriptions Disp Refills pirfenidone (ESBRIET) 801 mg tablet 90 tablet 11 Sig: Take 1 tablet by mouth three times a day. Date of last office visit : 03/24/2023 Date of next office visit : 09/25/2023 Last 2 Encounter Wt Readings: Date: Wt: 07/09/2023 62.2 kg (137 lb 2 oz) 06/30/2023 65.8 kg (145 lb) Not applicable Please advise. Barbara Grayson documented in this encounter [facility] 09-07-2023 Telephone encounter Note Patient called in stating she wants to use [facility] 09-07-2023 Telephone encounter Note Received request on 09/02/23 for esbriet from [facility] and this was sent in for a year's supply. Now [facility] requesting refills. Voicemail left for patient to return call to find out which pharmacy she is using for this prescription. [facility] 09-07-2023 Telephone encounter Note Pharmacy verified in Epic The phone number for [facility] in case of any questions. [phone] Patient has been identified by name and date of : Yes Patient aware RX will be sent to pharmacy. No need to notify patient. Patient phones for refill(s): Requested Prescriptions Pending Prescriptions Disp Refills pirfenidone (ESBRIET) 801 mg tablet 90 tablet 11 Sig: Take 1 tablet by mouth three times a day. Date of last office visit : 03/24/2023 Date of next office visit : 09/25/2023 Last 2 Encounter Wt Readings: Date: Wt: 07/09/2023 62.2 kg (137 lb 2 oz) 06/30/2023 65.8 kg (145 lb) Not applicable Please advise. Barbara Grayson [facility] 09-02-2023 Telephone encounter Note Received a fax from [facility] requesting a refill on the following medication. Please file if appropriate. [facility] 09-02-2023 Miscellaneous Notes Received a fax from [facility] requesting a refill on the following medication. Please file if appropriate. documented in this encounter [facility] 08-26-2023 Telephone encounter Note Form faxed back to [employer]. Transmission with forms in drawer. [facility] 08-26-2023 Miscellaneous Notes Form faxed back to [facility]. Transmission with forms in drawer. Fax received from [facility] - [facility] [place]. Form placed on dr grier's desk for review/signature. documented in this encounter [facility] 08-17-2023 Telephone encounter Note Fax received from [facility] - form for refills for esbriet through [facility]. Form placed on dr grier's desk for review/signature. [facility] 08-10-2023 Telephone encounter Note Pt would like Dr. Espinoza to know she is in a care home [facility]. Pt would like the doctor to call Stacie Nurse Practitioner at facility [phone], regarding pt's meds. Pt concerned SUPERVISOR LIME would like to change medications. PT call back # [phone] Genevieve Fountain LPN [facility] 08-10-2023 Miscellaneous Notes Pt would like Dr. Espinoza to know she is in a care home [facility]. Pt would like the doctor to call Stacie Nurse Practitioner at facility [phone], regarding pt's meds. Pt concerned SUPERVISOR LIME would like to change medications. PT call back # [phone] Genevieve Fountain LPN documented in this encounter [facility] 07-24-[address] Neris SINGLETON [facility] 07-24-[address] Neris SINGLETON documented in this encounter [facility] 07-23-2023 Telephone encounter Note Re-faxed with successful transmission [facility] 07-23-2023 Miscellaneous Notes Re-faxed with successful transmission Char thomas [facility] is calling back and states that they did not receive the faxed form. Char asking to have the form faxed again. Char will be out of the office tomorrow. If you need to reach office, please contact Brinda Jim @ [phone] Request completed and faxed. Forms completed. In outbox. Thanks Сергей Espinoza MD Type of letter/form/fax request - Forms Form received from [facility] [employer] [employer] Placed on desk () for completion. Completed form needs to be faxed to [phone]. Route to ID when form completed for processing documented in this encounter [facility] 07-23-2023 Telephone encounter Note Char from [facility] is calling back and states that they did not receive the faxed form. Char asking to have the form faxed again. Char will be out of the office tomorrow. If you need to reach office, please contact Brinda Fernandez @ [phone] [facility] 07-23-2023 Telephone encounter Note Request completed and faxed. [facility] 07-23-2023 Telephone encounter Note Forms completed. In outbox. Thanks Сергей Espinoza MD [facility] 07-22-2023 Telephone encounter Note Type of letter/form/fax request - Forms Form received from [employer] Placed on desk () for completion. Completed form needs to be faxed to [phone]. Route to MA when form completed for processing [facility] 07-22-2023 Telephone encounter Note Pharmacy verified in [facility] Patient has been identified by name and date of : Yes Patient aware RX will be sent to pharmacy. No need to notify patient. Patient phones for refill(s): Requested Prescriptions Pending Prescriptions Disp Refills esomeprazole (NEXIUM) 40 mg capsule 90 capsule 4 Sig: Take 1 capsule by mouth daily before breakfast. Date of last office visit : 11/12/2022 Date of next office visit : Visit date not found Last 2 Encounter Wt Readings: Date: Wt: 07/09/2023 62.2 kg (137 lb 2 oz) 06/30/2023 65.8 kg (145 lb) Not applicable Please advise. Jaclyn Rose MA [facility] 07-22-2023 Miscellaneous Notes Pharmacy verified in [facility] Patient has been identified by name and date of : Yes Patient aware RX will be sent to pharmacy. No need to notify patient. Patient phones for refill(s): Requested Prescriptions Pending Prescriptions Disp Refills esomeprazole (NEXIUM) 40 mg capsule 90 capsule 4 Sig: Take 1 capsule by mouth daily before breakfast. Date of last office visit : 11/12/2022 Date of next office visit : Visit date not found Last 2 Encounter Wt Readings: Date: Wt: 07/09/2023 62.2 kg (137 lb 2 oz) 06/30/2023 65.8 kg (145 lb) Not applicable Please advise. Jaclyn Rose MA documented in this encounter [facility] 07-17-2023 Telephone encounter Note Pharmacy verified in [facility] Patient has been identified by name and date of : Yes Patient aware RX will be sent to pharmacy. No need to notify patient. Patient phones for refill(s): Requested Prescriptions Pending Prescriptions Disp Refills nortriptyline (PAMELOR) 75 mg capsule 90 capsule 3 Sig: Take 1 capsule by mouth daily at bedtime. Date of last office visit : 07/09/2023 Date of next office visit : 08/29/2023 Last 2 Encounter Wt Readings: Date: Wt: 07/09/2023 62.2 kg (137 lb 2 oz) 06/30/2023 65.8 kg (145 lb) Not applicable Please advise. Jaclyn Rose MA [facility] 07-17-2023 Miscellaneous Notes Pharmacy verified in [facility] Patient has been identified by name and date of : Yes Patient aware RX will be sent to pharmacy. No need to notify patient. Patient phones for refill(s): Requested Prescriptions Pending Prescriptions Disp Refills nortriptyline (PAMELOR) 75 mg capsule 90 capsule 3 Sig: Take 1 capsule by mouth daily at bedtime. Date of last office visit : 07/09/2023 Date of next office visit : 08/29/2023 Last 2 Encounter Wt Readings: Date: Wt: 07/09/2023 62.2 kg (137 lb 2 oz) 06/30/2023 65.8 kg (145 lb) Not applicable Please advise. Jaclyn Rose MA documented in this encounter [facility] 07-16-2023 Telephone encounter Note Referral source: Brayden Murdock MD ([facility] [place]) Reason for visit: chronic migraine evaluation External records: Sent with referral Triage: Not required Financial clearance: Not required to schedule [facility] 07-16-2023 Miscellaneous Notes Referral source: Brayden Murdock MD ([facility] [place]) Reason for visit: chronic migraine evaluation External records: Sent with referral Triage: Not required Financial clearance: Not required to schedule documented in this encounter [facility] 07-15-2023 Telephone encounter Note Last appointment: 07/09/23 Next appointment: 08/29/23 Pharmacy verified in [facility]. Refill(s) requested: Requested Prescriptions Pending Prescriptions Disp Refills nortriptyline (PAMELOR) 75 mg capsule 90 capsule 3 Sig: Take 1 capsule by mouth daily at bedtime. Order(s) pended. Please advise. Tana Julien MA, FOREST MANAGER [facility] 07-15-2023 Miscellaneous Notes Last appointment: 07/09/23 Next appointment: 08/29/23 Pharmacy verified in [facility]. Refill(s) requested: Requested Prescriptions Pending Prescriptions Disp Refills nortriptyline (PAMELOR) 75 mg capsule 90 capsule 3 Sig: Take 1 capsule by mouth daily at bedtime. Order(s) pended. Please advise. Tana Julien MA, FOREST MANAGER documented in this encounter [facility] 07-14-2023 Telephone encounter Note Luc, Just wanted to let you know your medication has been approved until the end of the year! Have a great day! [facility] 07-14-2023 Miscellaneous Notes Luc, Just wanted to let you know your medication has been approved until the end of the year! Have a great day! documented in this encounter [facility] 07-14-2023 Telephone encounter Note Last appointment: 07/29/23 Next appointment: 08/29/23 Pharmacy verified in [facility]. Refill(s) requested: Requested Prescriptions Pending Prescriptions Disp Refills triamcinolone acetonide (KENALOG) 0.5 % cream 15 g 1 Sig: Apply to affected area three times a day. Order(s) pended. Please advise. Tana Julien MA, FOREST MANAGER [facility] 07-14-2023 Miscellaneous Notes Last appointment: 07/29/23 Next appointment: 08/29/23 Pharmacy verified in [facility]. Refill(s) requested: Requested Prescriptions Pending Prescriptions Disp Refills triamcinolone acetonide (KENALOG) 0.5 % cream 15 g 1 Sig: Apply to affected area three times a day. Order(s) pended. Please advise. Tana Julien MA, [facility] documented in this encounter [facility] 07-14-2023 Telephone encounter Note Prior auth was approved for the Fluticasone Prop HFA 110 MCG thru 03/01/2024. Scanned to [facility]. [facility] 07-14-2023 Miscellaneous Notes Prior auth was approved for the Fluticasone Prop HFA 110 MCG thru 03/01/2024. Scanned to [facility]. Pharmacy electronically requests the following refill(s) Requested Prescriptions Pending Prescriptions Disp Refills fluticasone (FLOVENT) 110 mcg/actuation inhaler 1 Each 11 Sig: Inhale 1 Puff as instructed two times a day. Shake well before use. Rinse mouth after use. DANIEL Shea 03/24/[address] Grier follow up appt 07/22/2023 with Mouna Vuong. Please advise. documented in this encounter [facility] 07-14-2023 Telephone encounter Note Pharmacy electronically requests the following refill(s) Requested Prescriptions Pending Prescriptions Disp Refills fluticasone (FLOVENT) 110 mcg/actuation inhaler 1 Each 11 Sig: Inhale 1 Puff as instructed two times a day. Shake well before use. Rinse mouth after use. DANIEL Shea 03/24/[address] Grier follow up appt 07/22/2023 with Mouna Vuong. Please advise. [facility] 07-13-2023 Telephone encounter Note I called pt and left detailed message about UA ordered [facility] 07-13-2023 Miscellaneous Notes I called pt and left detailed message about UA ordered Urine ordered Сергей Espinoza MD Answer Assessment - Initial Assessment Questions Patient calling for update She will go for her repeat labs today or tomorrow Asking for a urinalysis She did cut on her water intake Drinking less water Drinking Pedialyte about 8 ounces a day She finished her antibiotic Thursday she was given at the urgent care Thursday. She is still having some abdominal pain/dull ache periodically No burning No fever No odor Add UA if able to repeat labs. Protocols used: Information Only Call - No [id number] documented in this encounter [facility] 07-13-2023 Telephone encounter Note Urine ordered Сергей Espinoza MD [facility] 07-13-2023 Telephone encounter Note Answer Assessment - Initial Assessment Questions Patient calling for update She will go for her repeat labs today or tomorrow Asking for a urinalysis She did cut on her water intake Drinking less water Drinking Pedialyte about 8 ounces a day She finished her antibiotic Thursday she was given at the urgent care Thursday. She is still having some abdominal pain/dull ache periodically No burning No fever No odor Add UA if able to repeat labs. Protocols used: Information Only Call - No [id number] [facility] Work Phone: 07-10-2023 Telephone encounter Note Spoke with pt, reviewed below message. Verbalized understanding, no further questions. [facility] 07-10-2023 Miscellaneous Notes Spoke with pt, reviewed below message. Verbalized understanding, no further questions. Please let patient know that his sodium is a little low. She may want to increase the salt in her diet or if she is drinking a lot of water to cut back. She has also developed an anemia. This upcoming Thursday or would like the patient to get more lab work to check why she has the anemia and recheck her sodium. Thanks, Сергей Espinoza MD documented in this encounter [facility] 07-10-2023 Telephone encounter Note Please let patient know that his sodium is a little low. She may want to increase the salt in her diet or if she is drinking a lot of water to cut back. She has also developed an anemia. This upcoming Thursday or would like the patient to get more lab work to check why she has the anemia and recheck her sodium. Thanks, Сергей Espinoza MD [facility] 07-09-2023 Note HNO ID: [id number] Author: СЕРГЕЙ ESPINOZA MD Service: ? Author Type: Physician Type: Progress Notes Filed: 07/09/2023 10:15 Note Text: ESTABLISHED PATIENT Merna Webster is a 83 year old female presenting for [facility] Evaluation HISTORY OF PRESENT ILLNESS Patient is moving in to [facility]. Happy to be moving in with her as they have been apart for over 1 year. Going to pain medicine in [place]. Has arthritis in the right hip. Has had 3 shots in the hip. That has helped. Started 100mg gabapentin four times per day. No side effects. Hypertension Follow up. Very labile in the past. Higher when she goes some place and her anxiety. Medication Adherence: no missed doses and took medications this morning Home monitorin/70s Heart palpitations: no Chest pain: no Last 3 Encounter BP Readings: Date: BP: 07/09/2023 130/80 06/30/2023 146/72 05/25/2023 132/80 Has ILD and asthma. Sees pulm. On 3L of Oxygen. Will have oxygen provided there. Doing ok Mood is stable. Takes xanax three times per day. No side effects. Hx of migraines. On nortriptyline. Headaches right now is going well. Thinks also gabapentin can help. 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 Works well. No side effects. Headaches doing better. Seeing pain management. BP stable. Continue current meds Continue inhaled medication Continue oxygen 3l. Can adjust as needed Euthyroid. Continue current dose Continue medications and injection for right hip Depression is stable. REVIEW OF SYSTEMS GENERAL: No weight loss, malaise or fevers PHYSICAL EXAM BP 130/80 Pulse 82 Temp 36.2 ?C (97.1 ?F) Resp 16 Ht 157.5 cm (5' 2") Wt 62.2 kg (137 lb 2 oz) SpO2 98% BMI 25.08 kg/m? General: Well developed, well nourished, in no acute distress. Head: Normocephalic, atraumatic. Neck: Supple. Eyes: Normal conjunctiva, no scleral icterus. Lungs: Basilar crackles Cardiac: Regular rate and rhythm. No murmurs, gallops, or rubs. Extremities: No edema. Allergies: ALLERGIES Allergen Reactions Rofecoxib Itching heart palpitations,red blotching on face Amoxicillin Intolerance Swelling in her eye. Aspirin heart palpitations Doxycycline GI Upset Ibuprofen face swells Lisinopril GI Upset Acid reflux Seasonal Allergies Intolerance Singulair [Monteluk* Rash Sulfa (Sulfonamide * rash Zoloft [Sertraline] Diarrhea Medications: gabapentin (NEURONTIN) 100 mg capsule TAKE 1 CAPSULE BY MOUTH 4 TIMES DAILY NEEDED pravastatin (PRAVACHOL) 40 mg tablet take 1 tablet at bedtime ALPRAZolam (XANAX) 1 mg tablet Take 1 tablet by mouth three times a day as needed for sedation or anxiety for up to 30 days. levothyroxine (SYNTHROID) 75 mcg tablet Take 0.5 tablets by mouth once daily. fluticasone (FLOVENT) 110 mcg/actuation inhaler Inhale 1 Puff as instructed two times a day. Shake well before use. Rinse mouth after use. triamcinolone acetonide (KENALOG) 0.5 % cream Apply to affected area three times a day. fluticasone furoate (ARNUITY ELLIPTA) 100 mcg/actuation inhaler Inhale 1 Puff as instructed once daily. fluticasone (FLONASE) 50 mcg/actuation nasal spray Use 1 [place] in each nostril once daily. betamethasone valerate 0.1 % ointment Apply to affected area two times a day. pirfenidone (ESBRIET) 801 mg tablet take 1 tablet by mouth 3 times a day cloNIDine HCl (CATAPRES) 0.1 mg tablet take 1 tablet twice daily verapamil SR (CALAN SR) 240 mg CR tablet Take 1 tablet by mouth daily at bedtime. SUMAtriptan (IMITREX) 100 mg tablet Take 1 tablet (100 mg) by mouth as needed for migraine headache (see administration instructions). at onset of headache.May repeat after 2 hours. esomeprazole (NEXIUM) 40 mg capsule TAKE 1 CAPSULE BY MOUTH DAILY BEFORE BREAKFAST. CPAP/BIPAP/OTHER Type .CPAPSettings into a note to see current settings/supplies/DME information. erythromycin (ROMYCIN) 5 mg/gram (0.5 %) ophthalmic ointment daily at bedtime. nortriptyline (PAMELOR) 75 mg capsule TAKE 1 CAPSULE AT BEDTIME fexofenadine (MARIA C) 180 mg tablet Take 180 mg by mouth as needed (Patient choice). promethazine (PHENERGAN) 12.5 mg tablet Take 1 tablet by mouth every 6 hours as needed (Headache). OXYGEN, HOME THERAPY, Please dis (more content not included)... [facility] 07-09-2023 History of Present illness Narrative ESTABLISHED PATIENT Merna Webster is a 83 year old female presenting for [facility] Evaluation HISTORY OF PRESENT ILLNESS Patient is moving in to [place] [facility]. Happy to be moving in with her as they have been apart for over 1 year. Going to pain medicine in [place]. Has arthritis in the right hip. Has had 3 shots in the hip. That has helped. Started 100mg gabapentin four times per day. No side effects. Hypertension Follow up. Very labile in the past. Higher when she goes some place and her anxiety. Medication Adherence: no missed doses and took medications this morning Home monitorin/70s Heart palpitations: no Chest pain: no Last 3 Encounter BP Readings: Date: BP: 07/09/2023 130/80 06/30/2023 146/72 05/25/2023 132/80 Has ILD and asthma. Sees pulm. On 3L of Oxygen. Will have oxygen provided there. Doing ok Mood is stable. Takes xanax three times per day. No side effects. Hx of migraines. On nortriptyline. Headaches right now is going well. Thinks also gabapentin can help. 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 Works well. No side effects. Headaches doing better. Seeing pain management. BP stable. Continue current meds Continue inhaled medication Continue oxygen 3l. Can adjust as needed Euthyroid. Continue current dose Continue medications and injection for right hip Depression is stable. REVIEW OF SYSTEMS GENERAL: No weight loss, malaise or fevers PHYSICAL EXAM BP 130/80 Pulse 82 Temp 36.2 C (97.1 F) Resp 16 Ht 157.5 cm (5' 2") Wt 62.2 kg (137 lb 2 oz) SpO2 98% BMI 25.08 kg/m General: Well developed, well nourished, in no acute distress. Head: Normocephalic, atraumatic. Neck: Supple. Eyes: Normal conjunctiva, no scleral icterus. Lungs: Basilar crackles Cardiac: Regular rate and rhythm. No murmurs, gallops, or rubs. Extremities: No edema. Allergies: ALLERGIES Allergen Reactions Rofecoxib Itching heart palpitations,red blotching on face Amoxicillin Intolerance Swelling in her eye. Aspirin heart palpitations Doxycycline GI Upset Ibuprofen face swells Lisinopril GI Upset Acid reflux Seasonal Allergies Intolerance Singulair [Monteluk* Rash Sulfa (Sulfonamide * rash Zoloft [Sertraline] Diarrhea Medications: gabapentin (NEURONTIN) 100 mg capsule TAKE 1 CAPSULE BY MOUTH 4 TIMES DAILY NEEDED pravastatin (PRAVACHOL) 40 mg tablet take 1 tablet at bedtime ALPRAZolam (XANAX) 1 mg tablet Take 1 tablet by mouth three times a day as needed for sedation or anxiety for up to 30 days. levothyroxine (SYNTHROID) 75 mcg tablet Take 0.5 tablets by mouth once daily. fluticasone (FLOVENT) 110 mcg/actuation inhaler Inhale 1 Puff as instructed two times a day. Shake well before use. Rinse mouth after use. triamcinolone acetonide (KENALOG) 0.5 % cream Apply to affected area three times a day. fluticasone furoate (ARNUITY ELLIPTA) 100 mcg/actuation inhaler Inhale 1 Puff as instructed once daily. fluticasone (FLONASE) 50 mcg/actuation nasal spray Use 1 [place] in each nostril once daily. betamethasone valerate 0.1 % ointment Apply to affected area two times a day. pirfenidone (ESBRIET) 801 mg tablet take 1 tablet by mouth 3 times a day cloNIDine HCl (CATAPRES) 0.1 mg tablet take 1 tablet twice daily verapamil SR (CALAN SR) 240 mg CR tablet Take 1 tablet by mouth daily at bedtime. SUMAtriptan (IMITREX) 100 mg tablet Take 1 tablet (100 mg) by mouth as needed for migraine headache (see administration instructions). at onset of headache.May repeat after 2 hours. esomeprazole (NEXIUM) 40 mg capsule TAKE 1 CAPSULE BY MOUTH DAILY BEFORE BREAKFAST. CPAP/BIPAP/OTHER Type .CPAPSettings into a note to see current settings/supplies/DME information. erythromycin (ROMYCIN) 5 mg/gram (0.5 %) ophthalmic ointment daily at bedtime. nortriptyline (PAMELOR) 75 mg capsule TAKE 1 CAPSULE AT BEDTIME fexofenadine (MARIA C) 180 mg tablet Take 180 mg by mouth as needed (Patient choice). promethazine (PHENERGAN) 12.5 mg tablet Take 1 tablet by mouth every 6 hours as needed (Headache). OXYGEN, HOME THERAPY, Please dispense an oxygen concentrator, a portable oxygen concentrator and all necessary accessories to be used at 2L/min NC with exertion and with sleep. COMPOUNDED PRESCRIPTION Please dispense an oxygen concentrator and a portable oxygen concentrator and all necessary accessories to be used at 2L/min NC with exertion. acetaminophen/caffeine (EXCEDRIN ASPIRIN FREE ORAL) Take 2 tablets by mouth as needed. Inhalational Spacing Device (AEROCHAMBER) Spcr 1 Device as directed. METHOTREXATE ORAL Take by mouth. (Patient not taking: Reported on 04/23/2023) levalbuterol tartrate HFA 45 mcg/actuation inhaler INHALE 1-2 PUFFS INSTRUCTED EVERY 4 HOURS NEEDED FOR WHEEZING/SHORTNESS OF BREATH. VENTOLIN HFA 90 mcg/actuation inhaler Inhale 2 Puffs as instructed every 4 hours as needed. HISTORIES FAMILY HISTORY Problem Relation Age of Onset other (Kidney stones) Father COPD Sister Diabetes Brother Colon Cancer Brother Hypertension Brother PAST MEDICAL HISTORY Diagnosis Date Apnea cpap Asthma Asthma Bowel disease Degeneration of lumbar or lumbosacral intervertebral disc significant Diverticulosis of colon (without mention of hemorrhage) Dysthymic disorder Depression (non-psychotic) Esophageal reflux Gastroesophageal reflux Hypothyroidism 05/22/2016 Migraine Obstructive sleep apnea osteoporosis T11 mild compression. Other and unspecified hyperlipidemia needs med Snoring Thyroid disorder Unspecified essential hypertension Essential hypertension PAST SURGICAL HISTORY Procedure Laterality Date COLONOSCOPY 2006 rpt 2011. had diverticulum. TONSILLECTOMY & ADENOIDECTOMY <AGE 13 Tonsil/adenoidectomy TOTAL ABDOMINAL HYSTERECT W/WO RMVL TUBE OVARY 1993 Hysterectomy, RAPHAEL - menorrhagia & fibroids Social History Tobacco Use Smoking status: Never Passive exposure: Past Smokeless tobacco: Never Vaping Use Vaping Use: Never used Substance Use Topics Alcohol use: No Drug use: No Сергей Espinoza MD RSV Vaccine(1 - 1-dose 60+ series) Never done Bone Density Screening due on 09/05/2007 Advance Directive Discussion due on 03/02/2023 Covid-19 Vaccine( season) due on 03/16/2023 documented in this encounter [facility] 07-09-2023 Instructions Callie Taylor MA - 07/09/2023 8:07 AM EDT [facility] TEST INFORMATION [facility] HOURS: Lab is open: 7:30am to 5:00pm M - , 7:30am to 4:00pm on Thu and 8am -12pm on Thu. The lab is located in [facility] on the first floor. There is a registration window at the lab, available 7 am to 3 pm Thursday - Thursday. If registration is unavailable at the lab, you may register at the patient registration office near the front lobby of the hospital. SCHEDULING A LAB APPOINTMENT: Laboratory appointments are recommended.Walk ins are still accepted. Call [phone] or schedule via [employer] scheduling ticket. ROUTINE LAB ORDERS 60 days after they are entered. If your lab orders , you may be required to wait in the lab while they are reinstated FUTURE ORDERS are lab tests to be completed on the EXPECTED date. These orders 60 days after the expected date. STANDING ORDERS are recurring orders with an expiration date. The interval will indicate how often the test should be completed. CT / MRI / IVP If you have lab tests ordered for one of these radiology exams, please complete the blood work at least one day prior to the scheduled exam. PRESCRIPTION REFILL REQUESTS Request prescription refills through your [employer] account or contact your Pharmacy. My Chart Schedule My Appointment enables you to view your established primary care provider's open schedule and book an appointment online in real-time. This feature is available in internal medicine, family medicine, or pediatrics at any of our [facility] locations and main campus. documented in this encounter [facility] 07-09-2023 Note HNO ID: [id number] Author: CALLIE TAYLOR MA Service: ? Author Type: Clinical Assistant Professor Type: Progress Notes Filed: 07/09/2023 10:15 Note Text: RSV Vaccine(1 - 1-dose 60+ series) Never done Bone Density Screening due on 09/05/2007 Advance Directive Discussion due on 03/02/2023 Covid-19 Vaccine( season) due on 03/16/2023 [facility] 06-30-2023 Instructions Mouna Baez APRN.[employer] - 06/30/2023 3:29 PM EDT Your heart monitor showed that you had some fast heart rates >>> this is not harmful but can feel bad. You report feeling better since having the monitor placed Since you are not having symptoms for the last month I would not do anything different for now. I think that as your thyroid control improves, we may see that you have less palpitations If you have recurrent symptoms >> I would recommend that we ween off Clonidine and change this to Diltiazem to help with the extra heart beats. I Will share my note with Dr. Espinoza documented in this encounter [facility] 06-30-2023 Note HNO ID: [id number] Author: MOUNA BAEZ APRN.TREVA Service: ? Author Type: Nurse Practitioner Type: Progress Notes Filed: 07/03/2023 12:57 Note Text: [facility] Department of Cardiovascular Medicine SECTION OF CLINICAL CARDIOLOGY OUTPATIENT VISIT DATE June 30, 2023 OUTPATIENT VISIT TYPE ESTABLISHED Elements of this note, including but not limited to HPI, ROS, Physical Exam, Assessment and Plan were copied and pasted from previous office visit notes completed within our department. Updates have been made where appropriate/noted and reflect current exam and medical decision making from date of this visit. Patient Name: Merna Webster : 1940 PRIMARY CARE PHYSICIAN: Сергей Espinoza MD CHIEF COMPLAINT: Patient presents with: Established Patient Follow-Up: Follow up Pt reports episodes of "irregular" and "pounding". Interval Hx: Ms. Webster comes for a follow up visit. The last office visit visit with Dr. Johnson was 04/24/2023. Patient with 0 hospitalizations or ER visits since last OV. Since last office visit patient has been feeling ok. BP at home 1120-140's Has PCP follow up scheduled 07/16 Will get updated thyroid studies Less palpitations since zio came off No BB due to lung disease No Chest pain No increase in SOB from baseline - 2-3 liters ATC Compliant with CPAP Still with fatigue No LE edema No LE edema Appetite is good Water intake is good IMPRESSION/PLAN: ASSESSMENT/PLAN: 1. Essential hypertension - ICD9: 401.9, ICD10: I10 (primary diagnosis) - Home blood pressure readings controlled - Continue current medications for now. - if she has worsening sx of palpitations would stop Clonidine and changed to Diltiazem. - Recommend home blood pressure monitoring, to bring results to next visit - Encouraged sodium restriction, DASH or Mediterranean diet - Recommend regular aerobic exercise - Reviewed risks of hypertension and principles of treatment 2. Pure hypercholesterolemia - ICD9: 272.0, ICD10: E78.00 - Last FLP 04/2021 - LDL 77 - repeat as ordered by PCP 3. Chronic respiratory failure with hypoxia (HCC) - ICD9: 518.83, 799.02, ICD10: J96.11 - follows with pulm 4. Obstructive sleep apnea - ICD9: 327.23, ICD10: G47.33 - reports compliance with CPAP 5. Palpitations - ICD9: 785.1, ICD10: R00.2 - improved - recent zio: Average heart rate of 86 bpm with a minimum of 51 bpm, predominantly in sinus rhythm. 12 runs of SVT up to 7.6 seconds, up to 222 bpm. These appear to be asymptomatic. - patient feeling well currently and we agreed to not add any new meds as this time. Will revisit if she started to have recurrent sx. Patient instructions: Your heart monitor showed that you had some fast heart rates >>> this is not harmful but can feel bad. You report feeling better since having the monitor placed Since you are not having symptoms for the last month I would not do anything different for now. I think that as your thyroid control improves, we may see that you have less palpitations If you have recurrent symptoms >> I would recommend that we ween off Clonidine and change this to Diltiazem to help with the extra heart beats. I Will share my note with Dr. Espinoza I spent a total of 30 minutes on the date of the service which included preparing to see the patient, [id number] patient care, completing clinical documentation, performing a medically appropriate examination, counseling and educating the patient/family/caregiver, ordering medications, tests, or procedures, communicating with other HCPs (not separately reported), and communicating results to the patient/family/caregiver. Thank you very much for allowing me to assist in the care of Merna Webster. The above information was discussed at length and detail with the patient who verbalized an understanding of the plan and was given ample opportunity to ask questions. The appropriate follow up has been arranged. I have advised the patient to contact me if any questions/problems arise prior to the follow up. Mouna Baez APRN.[facility] Cardiology Nurse Practitioner Section of [facility] Cardiology [place] Dept of Cardiovascular Medicine [facility] [place] [address] [address] Office Office June 30, 2023 3:07 PM This note was partially generated using [employer] voice recognition system and may contain errors related to that system including grammar, punctuation, spelling, and words that may be inappropriate. CARDIAC STUDIES: LV Ejection Fraction (%) Date Value 01/29/2023 57 01/24/2020 60 Last ECHO Result Conclusion ECHO Collected: 01/29/2023 2:02 PM (Final result) Impression: CONCLUSIONS: - Exam indication: Suspected pulmonary hypertension - The left ventricle is nor (more content not included)... [facility] 06-30-2023 History of Present illness Narrative Images from the original note were not included. [facility] Department of Cardiovascular Medicine SECTION OF CLINICAL CARDIOLOGY OUTPATIENT VISIT DATE June 30, 2023 OUTPATIENT VISIT TYPE ESTABLISHED Elements of this note, including but not limited to HPI, ROS, Physical Exam, Assessment and Plan were copied and pasted from previous office visit notes completed within our department. Updates have been made where appropriate/noted and reflect current exam and medical decision making from date of this visit. Patient Name: Merna Webster : 1940 PRIMARY CARE PHYSICIAN: Сергей Espinoza MD CHIEF COMPLAINT: Patient presents with: Established Patient Follow-Up: Follow up Pt reports episodes of "irregular" and "pounding". Interval Hx: Ms. Webster comes for a follow up visit. The last office visit visit with Dr. Johnson was 04/24/2023. Patient with 0 hospitalizations or ER visits since last OV. Since last office visit patient has been feeling ok. BP at home 1120-140's Has PCP follow up scheduled 07/16 Will get updated thyroid studies Less palpitations since zio came off No BB due to lung disease No Chest pain No increase in SOB from baseline - 2-3 liters ATC Compliant with CPAP Still with fatigue No LE edema No LE edema Appetite is good Water intake is good IMPRESSION/PLAN: ASSESSMENT/PLAN: 1. Essential hypertension - ICD9: 401.9, ICD10: I10 (primary diagnosis) - Home blood pressure readings controlled - Continue current medications for now. - if she has worsening sx of palpitations would stop Clonidine and changed to Diltiazem. - Recommend home blood pressure monitoring, to bring results to next visit - Encouraged sodium restriction, DASH or Mediterranean diet - Recommend regular aerobic exercise - Reviewed risks of hypertension and principles of treatment 2. Pure hypercholesterolemia - ICD9: 272.0, ICD10: E78.00 - Last FLP 04/2021 - LDL 77 - repeat as ordered by PCP 3. Chronic respiratory failure with hypoxia (HCC) - ICD9: 518.83, 799.02, ICD10: J96.11 - follows with pulm 4. Obstructive sleep apnea - ICD9: 327.23, ICD10: G47.33 - reports compliance with CPAP 5. Palpitations - ICD9: 785.1, ICD10: R00.2 - improved - recent zio: Average heart rate of 86 bpm with a minimum of 51 bpm, predominantly in sinus rhythm. 12 runs of SVT up to 7.6 seconds, up to 222 bpm. These appear to be asymptomatic. - patient feeling well currently and we agreed to not add any new meds as this time. Will revisit if she started to have recurrent sx. Patient instructions: Your heart monitor showed that you had some fast heart rates >>> this is not harmful but can feel bad. You report feeling better since having the monitor placed Since you are not having symptoms for the last month I would not do anything different for now. I think that as your thyroid control improves, we may see that you have less palpitations If you have recurrent symptoms >> I would recommend that we ween off Clonidine and change this to Diltiazem to help with the extra heart beats. I Will share my note with Dr. Espinoza I spent a total of 30 minutes on the date of the service which included preparing to see the patient, [id number] patient care, completing clinical documentation, performing a medically appropriate examination, counseling and educating the patient/family/caregiver, ordering medications, tests, or procedures, communicating with other HCPs (not separately reported), and communicating results to the patient/family/caregiver. Thank you very much for allowing me to assist in the care of Merna Webster. The above information was discussed at length and detail with the patient who verbalized an understanding of the plan and was given ample opportunity to ask questions. The appropriate follow up has been arranged. I have advised the patient to contact me if any questions/problems arise prior to the follow up. Mouna Baez APRN.[facility] Cardiology Nurse Practitioner Section of Regional Cardiology [facility] Dept of Cardiovascular Medicine [facility] [place] [address] [address] Office Office June 30, 2023 3:07 PM This note was partially generated using FitStar recognition system and may contain errors related to that system including grammar, punctuation, spelling, and words that may be inappropriate. CARDIAC STUDIES: LV Ejection Fraction (%) Date Value 01/29/2023 57 01/24/2020 60 Last ECHO Result Conclusion ECHO Collected: 01/29/2023 2:02 PM (Final result) Impression: CONCLUSIONS: - Exam indication: Suspected pulmonary hypertension - The left ventricle is normal in size. Left ventricular systolic function is normal. EF = 57 5% (2D biplane) Indeterminate left ventricular diastolic dysfunction. - The right ventricle is normal in size. Right ventricular systolic function is normal. - The left atrial cavity is mildly dilated. - There is trace to mild (1+) mitral regurgitation. - There is mild (1+) tricuspid regurgitation. - There is trivial to mild aortic regurgitation. - Estimated right ventricular systolic pressure is 35 mmHg consistent with normal pulmonary artery pressures. Estimated right atrial pressure is 3 mmHg based on IVC assessment. - Exam was compared with the prior CC echocardiographic exam performed on 01/24/20. There is now trivial to mild aortic regurgitation. * * * Final * * * Last EKG Result Conclusion ECG COMPLETE Collected: 12/08/2022 2:45 PM (Final result) Impression: NORMAL SINUS RHYTHM MINIMAL VOLTAGE CRITERIA FOR LVH, MAY BE NORMAL VARIANT INFERIOR INFARCT , AGE UNDETERMINED POOR R-WAVE PROGRESSION WHEN COMPARED WITH ECG OF 21-DEC-2020 18:39, NO SIGNIFICANT CHANGE WAS FOUND Confirmed by MD SAMANTHA, SHERLEY ([id number]) on 12/08/2022 4:24:[address] Result Conclusion CT CHEST WO IVCON Exam End: 07/09/2022 4:25 PM (Final result) Impression: IMPRESSION: 1. 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 No significant interval change 2. No definite nodules are seen on this study 3. Findings are again compatible with Pulmonary arterial hypertension Director Foundation: YURIDIA Transcribe Date/Time: Jul 16 2022 1:20P Dictated by : FLORIN ROSSI DO This examination was interpreted and the report reviewed and electronically signed by: FLORIN ROSSI DO on Jul 16 2022 1:43PM EST LABS: Sodium (mmol/L) Date Value 05/25/2023 135 08/22/2022 139 12/21/2020 135 09/17/2020 139 Potassium (mmol/L) Date Value 05/25/2023 3.8 08/22/2022 4.3 12/21/2020 3.5 09/17/2020 3.8 BUN (mg/dL) Date Value 05/25/2023 9 08/22/2022 11 10/28/2021 11 05/30/2021 9 12/21/2020 7 09/17/2020 11 11/03/2019 11 03/15/2019 12 Creatinine (mg/dL) Date Value 05/25/2023 0.61 08/22/2022 0.61 10/28/2021 0.70 05/30/2021 0.65 12/21/2020 0.72 09/17/2020 0.75 11/03/2019 0.78 03/15/2019 0.79 Magnesium (mg/dL) Date Value 02/18/2012 2.0 02/17/2012 2.0 Hemoglobin (g/dL) Date Value 05/25/2023 11.8 08/22/2022 11.8 12/21/2020 12.1 11/03/2019 11.4 No results found for: "PROBNP" No results found for: "HSTNT" Cholesterol, Total (mg/dL) Date Value 11/03/2019 159 Total Cholesterol, Nonfasting (mg/dL) Date Value 05/30/2021 166 HDL Cholesterol (mg/dL) Date Value 11/03/2019 59 HDL Cholesterol, Nonfasting (mg/dL) Date Value 05/30/2021 61 Triglyceride (mg/dL) Date Value 11/03/2019 161 Triglycerides, Nonfasting (mg/dL) Date Value 05/30/2021 141 LDL Cholesterol (mg/dL) Date Value 11/03/2019 68 LDL Cholesterol, Nonfasting (mg/dL) Date Value 05/30/2021 77 TSH Date Value 05/25/2023 8.320 mIU/L 09/17/2020 2.370 uU/mL PT INR (no units) Date Value 02/15/2012 0.9 There were no tests performed for review. PHYSICAL EXAMINATION: Vitals: BP 146/72 Pulse 76 Ht 157.5 cm (5' 2") Wt 65.8 kg (145 lb) SpO2 97% BMI 26.52 kg/m General: Well appearing, in no acute distress. Skin: No clubbing, no cyanosis. Eyes: Extra ocular movements intact Oropharynx: Teeth in good repair. Neck: No jugular venous distention, no carotid bruits, carotids have a normal upstroke, no palpable thyromegaly. Lungs: No wheezes, course lung sounds. Heart: Regular rhythm, PMI not displaced, S1, S2 normal, no S3, no S4, no heaves, no rub and no murmur. Abdomen: Soft, nontender, bowel sounds normal, no palpable organomegaly, no bruits. Extremities: No peripheral edema . Grade 2/4 distal pulses bilaterally. Neuro: Oriented to person, place and time, alert, cooperative, gait coordinated. ALLERGIES: Rofecoxib, Amoxicillin, Aspirin, Doxycycline, Ibuprofen, Lisinopril, Seasonal Allergies, Singulair [Montelukast Sodium], Sulfa (Sulfonamide Antibiotics), and Zoloft [Sertraline] PAST MEDICAL HISTORY: PAST MEDICAL HISTORY Diagnosis Date Apnea cpap Asthma Asthma Bowel disease Degeneration of lumbar or lumbosacral intervertebral disc significant Diverticulosis of colon (without mention of hemorrhage) Dysthymic disorder Depression (non-psychotic) Esophageal reflux Gastroesophageal reflux Hypothyroidism 05/22/2016 Migraine Obstructive sleep apnea osteoporosis T11 mild compression. Other and unspecified hyperlipidemia needs med Snoring Thyroid disorder Unspecified essential hypertension Essential hypertension SOCIAL HISTORY: Social History Tobacco Use Smoking status: Never Passive exposure: Past Smokeless tobacco: Never Vaping Use Vaping Use: Never used Substance Use Topics Alcohol use: No Drug use: No FAMILY HISTORY: FAMILY HISTORY Problem Relation Age of Onset other (Kidney stones) Father COPD Sister Diabetes Brother Colon Cancer Brother Hypertension Brother I have confirmed and edited as necessary, the PFSH and ROS obtained by others. Mouna Baez APRN.[employer] [facility] CURRENT MEDICATIONS: Current Outpatient Medications Medication Sig pravastatin (PRAVACHOL) 40 mg tablet take 1 tablet at bedtime ALPRAZolam (XANAX) 1 mg tablet Take 1 tablet by mouth three times a day as needed for sedation or anxiety for up to 30 days. levothyroxine (SYNTHROID) 75 mcg tablet Take 0.5 tablets by mouth once daily. fluticasone (FLOVENT) 110 mcg/actuation inhaler Inhale 1 Puff as instructed two times a day. Shake well before use. Rinse mouth after use. triamcinolone acetonide (KENALOG) 0.5 % cream Apply to affected area three times a day. fluticasone furoate (ARNUITY ELLIPTA) 100 mcg/actuation inhaler Inhale 1 Puff as instructed once daily. fluticasone (FLONASE) 50 mcg/actuation nasal spray Use 1 [place] in each nostril once daily. betamethasone valerate 0.1 % ointment Apply to affected area two times a day. pirfenidone (ESBRIET) 801 mg tablet take 1 tablet by mouth 3 times a day cloNIDine HCl (CATAPRES) 0.1 mg tablet take 1 tablet twice daily METHOTREXATE ORAL Take by mouth. (Patient not taking: Reported on 04/23/2023) verapamil SR (CALAN SR) 240 mg CR tablet Take 1 tablet by mouth daily at bedtime. SUMAtriptan (IMITREX) 100 mg tablet Take 1 tablet (100 mg) by mouth as needed for migraine headache (see administration instructions). at onset of headache.May repeat after 2 hours. esomeprazole (NEXIUM) 40 mg capsule TAKE 1 CAPSULE BY MOUTH DAILY BEFORE BREAKFAST. CPAP/BIPAP/OTHER Type .CPAPSettings into a note to see current settings/supplies/DME information. erythromycin (ROMYCIN) 5 mg/gram (0.5 %) ophthalmic ointment daily at bedtime. levalbuterol tartrate HFA 45 mcg/actuation inhaler INHALE 1-2 PUFFS INSTRUCTED EVERY 4 HOURS NEEDED FOR WHEEZING/SHORTNESS OF BREATH. nortriptyline (PAMELOR) 75 mg capsule TAKE 1 CAPSULE AT BEDTIME VENTOLIN HFA 90 mcg/actuation inhaler Inhale 2 Puffs as instructed every 4 hours as needed. fexofenadine (MARIA C) 180 mg tablet Take 180 mg by mouth as needed (Patient choice). promethazine (PHENERGAN) 12.5 mg tablet Take 1 tablet by mouth every 6 hours as needed (Headache). (Patient not taking: Reported on 04/23/2023) OXYGEN, HOME THERAPY, Please dispense an oxygen concentrator, a portable oxygen concentrator and all necessary accessories to be used at 2L/min NC with exertion and with sleep. COMPOUNDED PRESCRIPTION Please dispense an oxygen concentrator and a portable oxygen concentrator and all necessary accessories to be used at 2L/min NC with exertion. acetaminophen/caffeine (EXCEDRIN ASPIRIN FREE ORAL) Take 2 tablets by mouth as needed. Inhalational Spacing Device (AEROCHAMBER) Spcr 1 Device as directed. Current Facility-Administered Medications Medication Dose Route Frequency perflutren lipid microspheres 1.3 mL in NaCl (PF) 0.9% 10 mL injection (DEFINITY) INTRAVENOUS DIRECTED PRN sodium chloride 0.9 % (flush) 10 mL (BD POSIFLUSH) 10 mL INTRAVENOUS DIRECTED PRN documented in this encounter [facility] 06-30-2023 Note Patient Outreach (IN TMMN) MERNA WEBSTER ([id number]) 1940 F NFR Date Time Provider Department 06/30/23 СЕРГЕЙ ESPINOZA During your visit today, we recorded the following information about you: Allergies As of Date: 06/30/2023 Noted Allergy Reaction ROFECOXIB 04/20/2002 9 - Itching Comments: heart palpitations,red blotching on face AMOXICILLIN 11/28/2022 5 - Intolerance Comments: Swelling in her eye. ASPIRIN 01/06/2001 Comments: heart palpitations DOXYCYCLINE 09/05/2022 8 - GI Upset IBUPROFEN 01/06/2001 Comments: face swells LISINOPRIL 07/10/2020 8 - GI Upset Comments: Acid reflux SEASONAL ALLERGIES 09/04/2020 5 - Intolerance SINGULAIR (MONTELUKAST SODIUM) 10/21/2017 2 - Rash SULFA (SULFONAMIDE ANTIBIOTICS) 01/06/2001 Comments: rash ZOLOFT (SERTRALINE) 11/28/2022 6 - Diarrhea Date Reviewed: 06/30/2023 Reviewed by: Mara Puentes MA - Fully Assessed Visit Diagnosis:Pure hypercholesterolemia [E78.00] Order(s):LIPID PANEL BASIC [SQLIPB] Order #: [id number] FUTURE Prescriptions as of 07/03/2023 - gabapentin (NEURONTIN) 100 mg capsule TAKE 1 CAPSULE BY MOUTH 4 TIMES DAILY NEEDED - pravastatin (PRAVACHOL) 40 mg tablet take 1 tablet at bedtime - ALPRAZolam (XANAX) 1 mg tablet Take 1 tablet by mouth three times a day as needed for sedation or anxiety for up to 30 days. - levothyroxine (SYNTHROID) 75 mcg tablet Take 0.5 tablets by mouth once daily. - fluticasone (FLOVENT) 110 mcg/actuation inhaler Inhale 1 Puff as instructed two times a day. Shake well before use. Rinse mouth after use. - triamcinolone acetonide (KENALOG) 0.5 % cream Apply to affected area three times a day. - fluticasone furoate (ARNUITY ELLIPTA) 100 mcg/actuation inhaler Inhale 1 Puff as instructed once daily. - fluticasone (FLONASE) 50 mcg/actuation nasal spray Use 1 [place] in each nostril once daily. - betamethasone valerate 0.1 % ointment Apply to affected area two times a day. - pirfenidone (ESBRIET) 801 mg tablet take 1 tablet by mouth 3 times a day - cloNIDine HCl (CATAPRES) 0.1 mg tablet take 1 tablet twice daily - METHOTREXATE ORAL Take by mouth. - verapamil SR (CALAN SR) 240 mg CR tablet Take 1 tablet by mouth daily at bedtime. - SUMAtriptan (IMITREX) 100 mg tablet Take 1 tablet (100 mg) by mouth as needed for migraine headache (see administration instructions). at onset of headache.May repeat after 2 hours. - esomeprazole (NEXIUM) 40 mg capsule TAKE 1 CAPSULE BY MOUTH DAILY BEFORE BREAKFAST. - CPAP/BIPAP/OTHER Type .CPAPSettings into a note to see current settings/supplies/DME information. - erythromycin (ROMYCIN) 5 mg/gram (0.5 %) ophthalmic ointment daily at bedtime. - levalbuterol tartrate HFA 45 mcg/actuation inhaler INHALE 1-2 PUFFS INSTRUCTED EVERY 4 HOURS NEEDED FOR WHEEZING/SHORTNESS OF BREATH. - nortriptyline (PAMELOR) 75 mg capsule TAKE 1 CAPSULE AT BEDTIME - VENTOLIN HFA 90 mcg/actuation inhaler Inhale 2 Puffs as instructed every 4 hours as needed. - fexofenadine (MARIA C) 180 mg tablet Take 180 mg by mouth as needed (Patient choice). - promethazine (PHENERGAN) 12.5 mg tablet Take 1 tablet by mouth every 6 hours as needed (Headache). - OXYGEN, HOME THERAPY, Please dispense an oxygen concentrator, a portable oxygen concentrator and all necessary accessories to be used at 2L/min NC with exertion and with sleep. - COMPOUNDED PRESCRIPTION Please dispense an oxygen concentrator and a portable oxygen concentrator and all necessary accessories to be used at 2L/min NC with exertion. - acetaminophen/caffeine (EXCEDRIN ASPIRIN FREE ORAL) Take 2 tablets by mouth as needed. - Inhalational Spacing Device (AEROCHAMBER) Spcr 1 Device as directed. Facility-Administered Medications as of 07/03/2023 - perflutren lipid microspheres 1.3 mL in NaCl (PF) 0.9% 10 mL injection (DEFINITY) - sodium chloride 0.9 % (flush) 10 mL (BD POSIFLUSH) Problem List As Of Date 06/30/2023 Noted Resolved Pure hypercholesterolemia [E78.00] 07/05/2002 Rotator cuff (capsule) sprain [S43.429A] 06/21/2003 07/22/2017 Recurrent major depressive disorder, in full re*05/21/2004 Asthma [J45.909] 05/21/2004 Essential hypertension [I10] 07/15/2005 OTHER PSORIASIS [L40.8] 09/04/2005 Primary osteoarthritis of hip [M16.10] 09/04/2005 Pes anserinus tendinitis or bursitis [[id number]] 09/04/2005 07/22/2017 PLANTAR FIBROMATOSIS [M72.2] 09/04/2005 Backache, unspecified [M54.9] 09/24/2005 04/23/2017 Thoracic or lumbosacral neuritis or radiculitis*09/24/2005 07/22/2017 Pathologic fracture of vertebrae [M84.48XA] 10/13/2005 07/22/2017 Osteoporosis [M81.0] 10/13/2005 DIVERTICULOSIS OF COLON W/O BLEED [K57.30] osteoporosis [M89.9, M94.9] 04/23/2017 LUMB/LUMBOSAC DISC DEGEN [M51.37] CERVICALGIA [M54.2] 09/10/2007 Lumbago [M54.50] 09/10/2007 04/23/2017 Sprain of neck [ (more content not included)... [facility] 06-29-2023 Telephone encounter Note Patient is scheduled [facility] 06-29-2023 Miscellaneous Notes Patient is scheduled Called and spoke with patient. Omnicef had made her nauseous. Will send zpak and prednisone burst for possible asthma vs ILD flare. Continue arnuity. I informed her she did not have appointment with provider the day of her PFTs 07/21. Please arrange for appointment with Mouna Stephen, or myself if able either that day or sometime after breathing tests. ThanksTomasa APRN.TREVA Patient does not have an appointment with a provider on 07/21 - appt is just for pfts. documented in this encounter [facility] 06-29-2023 Telephone encounter Note Called and spoke with patient. Renea had made her nauseous. Will send zpak and prednisone burst for possible asthma vs ILD flare. Continue arnuity. I informed her she did not have appointment with provider the day of her PFTs 07/21. Please arrange for appointment with Mouna Stephen, or myself if able either that day or sometime after breathing tests. Thanks, Tomasa Ramirez APRN.[employer] [facility] 06-29-2023 Telephone encounter Note Patient does not have an appointment with a provider on 07/21 - appt is just for pfts. [facility] 06-24-2023 Telephone encounter Note Pharmacy verified in [facility] Patient has been identified by name and date of : Yes Patient aware RX will be sent to pharmacy. No need to notify patient. Pharmacy phones for refill(s): Requested Prescriptions Pending Prescriptions Disp Refills pravastatin (PRAVACHOL) 40 mg tablet [Pharmacy Med Name: PRAVASTATIN SODIUM 40 MG Tablet] 90 tablet 3 Sig: take 1 tablet at bedtime Date of last office visit : 05/25/2023 Date of next office visit : 08/29/2023 Last 2 Encounter Wt Readings: Date: Wt: 05/25/2023 64.2 kg (141 lb 8.6 oz) 04/23/2023 64.2 kg (141 lb 8.6 oz) Cholesterol: Triglyceride (mg/dL) Date Value 11/03/2019 161 Triglycerides, Nonfasting (mg/dL) Date Value 05/30/2021 141 HDL Cholesterol (mg/dL) Date Value 11/03/2019 59 HDL Cholesterol, Nonfasting (mg/dL) Date Value 05/30/2021 61 LDL Cholesterol (mg/dL) Date Value 11/03/2019 68 LDL Cholesterol, Nonfasting (mg/dL) Date Value 05/30/2021 77 ALT (U/L) Date Value 05/25/2023 12 12/10/2020 11 Non HDL Cholesterol, Nonfasting (mg/dL) Date Value 05/30/2021 105 Non HDL Cholesterol (mg/dL) Date Value 11/03/2019 100 Please advise. Maritza Jorgensen LPN [facility] 06-24-2023 Miscellaneous Notes Pharmacy verified in Epic Patient has been identified by name and date of : Yes Patient aware RX will be sent to pharmacy. No need to notify patient. Pharmacy phones for refill(s): Requested Prescriptions Pending Prescriptions Disp Refills pravastatin (PRAVACHOL) 40 mg tablet [Pharmacy Med Name: PRAVASTATIN SODIUM 40 MG Tablet] 90 tablet 3 Sig: take 1 tablet at bedtime Date of last office visit : 05/25/2023 Date of next office visit : 08/29/2023 Last 2 Encounter Wt Readings: Date: Wt: 05/25/2023 64.2 kg (141 lb 8.6 oz) 04/23/2023 64.2 kg (141 lb 8.6 oz) Cholesterol: Triglyceride (mg/dL) Date Value 11/03/2019 161 Triglycerides, Nonfasting (mg/dL) Date Value 05/30/2021 141 HDL Cholesterol (mg/dL) Date Value 11/03/2019 59 HDL Cholesterol, Nonfasting (mg/dL) Date Value 05/30/2021 61 LDL Cholesterol (mg/dL) Date Value 11/03/2019 68 LDL Cholesterol, Nonfasting (mg/dL) Date Value 05/30/2021 77 ALT (U/L) Date Value 05/25/2023 12 12/10/2020 11 Non HDL Cholesterol, Nonfasting (mg/dL) Date Value 05/30/2021 105 Non HDL Cholesterol (mg/dL) Date Value 11/03/2019 100 Please advise. Maritza Jorgensen LPN documented in this encounter [facility] 06-22-2023 Telephone encounter Note Forms faxed back to [facility]. Transmission with forms in drawer. [facility] 06-22-2023 Miscellaneous Notes Forms faxed back to [facility]. Transmission with forms in drawer. Orders from [facility] for A7039, A7034, A7038, A7036, A7037, A7046, A9279, E0562, E0601 A7035, A7032 all for c-pap supplies placed in Dr. Grier'kathia in basket. documented in this encounter [facility] 06-19-2023 Miscellaneous Notes Order at patient coordinator front desk, pt advised Order in outbox Сергей Espinoza MD documented in this encounter [facility] 06-19-2023 Telephone encounter Note [facility] A[facility], A7034, A7038, A7036, A7037, A7046, A9279, E0562, E0601 A7035, A7032 all for c-pap supplies placed in Dr. Grier'kathia in basket. [facility] 06-12-2023 Miscellaneous Notes PDMP website checked and validated. All prescriptions have been APPROPRIATELY filled. No suspicious activity was identified. 06/12/2023 by Сергей Espinoza MD Pharmacy verified in [facility] Patient has been identified by name and date of : Yes Patient aware RX will be sent to pharmacy. No need to notify patient. Pharmacy phones for refill(s): Requested Prescriptions Pending Prescriptions Disp Refills ALPRAZolam (XANAX) 1 mg tablet 90 tablet 0 Sig: Take 1 tablet by mouth three times a day as needed for sedation or anxiety for up to 30 days. Date of last office visit : 05/25/2023 Date of next office visit : 08/29/2023 Last 2 Encounter Wt Readings: Date: Wt: 05/25/2023 64.2 kg (141 lb 8.6 oz) 04/23/2023 64.2 kg (141 lb 8.6 oz) Not applicable Please advise. Maritza Jorgensen LPN documented in this encounter [facility] 06-11-2023 Miscellaneous Notes Last appointment: 05/25/23 Next appointment: 08/29/23 Pharmacy verified in [facility]. Refill(s) requested: Requested Prescriptions Pending Prescriptions Disp Refills ALPRAZolam (XANAX) 1 mg tablet 90 tablet 0 Sig: Take 1 tablet by mouth three times a day as needed for sedation or anxiety for up to 30 days. Order(s) pended. Please advise. Stacey Shaffer MA, FOREST MANAGER documented in this encounter [facility] 05-25-2023 Note HNO ID: [id number] Author: СЕРГЕЙ ESPINOZA MD Service: ? Author Type: Physician Type: Progress Notes Filed: 05/31/2023 21:42 Note Text: ESTABLISHED PATIENT Merna Webster is a 83 year old female presenting for Follow Up. HISTORY OF PRESENT ILLNESS Here with relative Patient thinks she has another UTI. Was recently in [place] ER. Had chills the other night. Has had a headache for 4 days. Having pressure in her head also. Runny nose. Takes maria c. Given amoxicillin. No side effects. Going to pain management for sciatica pain, bursitis. Also going ot get shots for migraines. Xanax is helping with the anxiety. Hypertension Follow up Medication Adherence: no missed doses and took medications this morning Home monitoring: Up and down at home. Usually 130-140s at home. Heart palpitations: no Chest pain: no Last 3 Encounter BP Readings: Date: BP: 05/25/2023 132/80 04/23/2023 160/80 03/24/2023 157/76 Hoping to get into care home this summer. Has some issues with ADLs. 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 Unable to clean. Able to feed herself. Cooks in the microwave. Recent Labs: WBC 7.57 08/22/2022 Hemoglobin 11.8 08/22/2022 Hematocrit 35.7 08/22/2022 Platelet Count 233 08/22/2022 Sodium 139 08/22/2022 Potassium 4.3 08/22/2022 Creatinine 0.61 08/22/2022 BUN 11 08/22/2022 eGFR, >60 02/18/2012 eGFR-All Other Races 90 08/22/2022 Glucose 98 08/22/2022 Calcium 9.3 08/22/2022 Hemoglobin A1C 6.1 09/17/2020 LDL Cholesterol 77 05/30/2021 HDL Cholesterol 61 05/30/2021 Cholesterol, Total 166 05/30/2021 Triglyceride 141 05/30/2021 AST 16 08/22/2022 ALT 10 08/22/2022 Alkaline Phosphatase 94 08/22/2022 TSH 2.480 08/22/2022 CrCl cannot be calculated (Patient's most recent lab result is older than the maximum 180 days allowed.). ASSESSMENT: (R30.0) Dysuria (primary encounter diagnosis) (J01.00) Acute non-recurrent maxillary sinusitis (I10) Essential hypertension (F33.42) Recurrent major depressive disorder, in full remission (HCC) (E03.9) Acquired hypothyroidism PLAN: Check for UTI Cefdinir for sinusitis BP stable. Continue current meds Depression stable. Xanax for anxiety. Continue meds Euthyroid HISTORIES FAMILY HISTORY Problem Relation Age of Onset other (Kidney stones) Father COPD Sister Diabetes Brother Colon Cancer Brother Hypertension Brother PAST MEDICAL HISTORY Diagnosis Date Apnea cpap Asthma Asthma Bowel disease Degeneration of lumbar or lumbosacral intervertebral disc significant Diverticulosis of colon (without mention of hemorrhage) Dysthymic disorder Depression (non-psychotic) Esophageal reflux Gastroesophageal reflux Hypothyroidism 05/22/2016 Migraine Obstructive sleep apnea osteoporosis T11 mild compression. Other and unspecified hyperlipidemia needs med Snoring Thyroid disorder Unspecified essential hypertension Essential hypertension PAST SURGICAL HISTORY Procedure Laterality Date COLONOSCOPY 2006 rpt 2011. had diverticulum. TONSILLECTOMY AND ADENOIDECTOMY Tonsil/adenoidectomy TOTAL ABDOMINAL HYSTERECT W/WO RMVL TUBE OVARY 1993 Hysterectomy, RAPHAEL - menorrhagia AND fibroids Social History Tobacco Use Smoking status: Never Passive exposure: Past Smokeless tobacco: Never Vaping Use Vaping Use: Never used Substance Use Topics Alcohol use: No Drug use: No Allergies: ALLERGIES Allergen Reactions Rofecoxib Itching heart palpitations,red blotching on face Amoxicillin Intolerance Swelling in her eye. Aspirin heart palpitations Doxycycline GI Upset Ibuprofen face swells Lisinopril GI Upset Acid reflux Seasonal Allergies Intolerance Singulair [Monteluk* Rash Sulfa (Sulfonamide * rash Zoloft [Sertraline] Diarrhea Medications: fluticasone (FLOVENT) 110 mcg/actuation inhalerInhale 1 Puff as instructed two times a day. Shake well before use. Rinse mouth after use.Disp: 1 EachRfl: 11 ALPRAZolam (XANAX) 1 mg tabletTake 1 tablet by mouth three times a day as needed for sedation or anxiety for up to 30 days.Disp: 90 tabletRfl: 0 triamcinolone acetonide (KENALOG) 0.5 % creamApply to affected area three times a day.Disp: 15 gRfl: 1 fluticasone furoate (ARNUITY ELLIPTA) 100 mcg/actuation inhalerInhale 1 Puff as instructed once daily.Disp: 3 EachRfl: 4 fluticasone (FLONASE) 50 mcg/actuation nasal sprayUse 1 [place] in each nostril once daily.Disp: 1 EachRfl: 2 levothyroxine (SYNTHROID) 25 mcg tabletTake 1 tablet by mouth once daily.Disp: 90 tabletRfl: 4 betamethasone valerate 0.1 % ointmentApply to affected area two times a day.Disp: 15 gRfl: 1 cloNIDine HCl (CATAPRES) 0.1 mg tablettake 1 tablet twice dailyDisp: 180 tabletRfl: 3 verapamil SR (CALAN SR) 240 mg CR tabletTake 1 tablet by mouth daily at bedtime.Disp: 90 tabletRfl: 2 SUMAtriptan (IMITREX) 100 mg tabletTake 1 tablet (100 mg) (more content not included)... [facility] 05-25-2023 Note HNO ID: [id number] Author: CALLIE TAYLOR MA Service: ? Author Type: Clinical Assistant Professor Type: Progress Notes Filed: 05/31/2023 21:42 Note Text: RSV Vaccine(1 - 1-dose 60+ series) Never done Advance Directive Discussion due on 03/02/2023 Covid-19 Vaccine( season) due on 03/16/2023 [facility] 05-24-2023 Miscellaneous Notes Reason for Call: Pt c/o slight burning with urination that started yesterday. Outcome: Disposition- See pcp within 24 hrs. Pt already has an appointment scheduled for tomorrow. Reason for Disposition Age > 50 years Answer Assessment - Initial Assessment Questions 1. SEVERITY: pt c/o burning with urination she rates a 2/10. 2. FREQUENCY: has more frequent urination but also drinking more water. 3. PATTERN: pain/discomfort sometimes. 4. ONSET: started yesterday. 5. FEVER: 97.2 6. PAST UTI: 7. CAUSE: Uti? 8. OTHER SYMPTOMS: Chills, nerve pain, headache and did not sleep last night. 9. : na. Protocols used: Urination Pain - Piowdh-EPEXG-GD documented in this encounter [facility] 05-13-2023 Miscellaneous Notes Last appointment: 02/27/23 Next appointment: 05/22/23 Pharmacy verified in [facility]. Refill(s) requested: Requested Prescriptions Pending Prescriptions Disp Refills ALPRAZolam (XANAX) 1 mg tablet 90 tablet 0 Sig: Take 1 tablet by mouth three times a day as needed for sedation or anxiety for up to 30 days. Order(s) pended. Please advise. Tana Julien MA, FOREST MANAGER documented in this encounter [facility] 05-12-2023 Miscellaneous Notes pended See patient comment and please pend needed meds. Last appointment: 01/19/23 Next appointment: 05/22/23 Pharmacy verified in [facility]. Refill(s) requested: Requested Prescriptions Pending Prescriptions Disp Refills triamcinolone acetonide (KENALOG) 0.5 % cream 15 g 1 Sig: Apply to affected area three times a day. fluticasone furoate (ARNUITY ELLIPTA) 100 mcg/actuation inhaler 3 Each 4 Sig: Inhale 1 Puff as instructed once daily. Order(s) pended. Please advise. Destiny Asencio LPN, FOREST MANAGER documented in this encounter [facility] 05-11-2023 Miscellaneous Notes Patient requests via MyChart refills as follows: Requested Prescriptions Pending Prescriptions Disp Refills fluticasone (FLOVENT) 110 mcg/actuation inhaler 1 Each 11 Sig: Inhale 1 Puff as instructed two times a day. Shake well before use. Rinse mouth after use. Please review and advise. Elisabeth Barber MA ERIS-03/24/[address] Grier pt has PULM testing on 07/22/2023 but no appt with a provider. documented in this encounter [facility] 05-04-2023 Miscellaneous Notes See other encounter documented in this encounter [facility] 05-04-2023 Miscellaneous Notes Spoke with patient. Patient stated they are already seeing a pain management doctor [facility]. Dr. Butler. Patient declined scheduling. Thanks Negrita Becerril PSS: Please call pt and assist in scheduling for pain management. documented in this encounter [facility] 05-04-2023 Miscellaneous Notes Pharmacy verified in [facility]. Patient has been identified by name and date of : Yes Patient aware RX will be sent to pharmacy. No need to notify patient. Patient phones for refill(s): Requested Prescriptions Pending Prescriptions Disp Refills levothyroxine (SYNTHROID) 25 mcg tablet 90 tablet 4 Sig: Take 1 tablet by mouth once daily. Date of last office visit : 02/27/2023 Date of next office visit : Visit date not found Last 2 Encounter Wt Readings: Date: Wt: 04/23/2023 64.2 kg (141 lb 8.6 oz) 03/24/2023 63.3 kg (139 lb 8.8 oz) Thyroid: TSH Date Value 08/22/2022 2.480 mIU/L 09/17/2020 2.370 uU/mL Please advise. Navya Burr MA documented in this encounter [facility] 05-01-2023 Miscellaneous Notes Addressed in triage encounter. Sabine Goyal RN Please triage. Thanks, Brinda Dominguez APRN.INSPECTOR EYEGLASS documented in this encounter [facility] 05-01-[address] Olga blackwood forgot to tell the nurse about Dr Johnson thought l might have cellulitis l will see Thursday at five and we can discuss it more ok thank you Merna Webster Triaged patient. Same rash as when seen 02/27 by Angelica. No new symptoms. Will be assessed Thursday at OV. Patient verbalizes understanding and has no other questions or concerns at this time. Sabine Goyal, GEOFFREY Answer Assessment - Initial Assessment Questions 1. LOCATION: "Where is the wound located?" Ankles, front of bilateral legs 2. WOUND APPEARANCE: "What does the wound look like?" Red blotches 3. SIZE: If redness is present, ask: "What is the size of the red area?" (Inches, centimeters, or compare to size of a coin) 4. SPREAD: "What's changed in the last day?" "Do you see any red streaks coming from the wound?" No streaks-improves after using ice packs and lotion, elevation 5. ONSET: "When did it start to look infected?" Since ERIS with Rytel 6. MECHANISM: "How did the wound start, what was the cause?" No idea 7. PAIN: Do you have any pain?" If Yes, ask: "How bad is the pain?" (e.g., Scale 1-10; mild, moderate, or severe) - MILD (1-3): Doesn't interfere with normal activities. - MODERATE (4-7): Interferes with normal activities or awakens from sleep. - SEVERE (8-10): Excruciating pain, unable to do any normal activities. Gao,nerve pain 8. FEVER: "Do you have a fever?" If Yes, ask: "What is your temperature, how was it measured, and when did it start?" 9. OTHER SYMPTOMS: "Do you have any other symptoms?" (e.g., shaking chills, weakness, rash elsewhere on body) 10. : "Is there any chance you are ?" "When was your last menstrual period?" Protocols used: Wound Infection Fovsrdmtd-AWOGD-UP documented in this encounter [facility] 04-29-2023 Miscellaneous Notes Noted/agree. Brinda Dominguez APRN.INSPECTOR EYEGLASS Called and spoke to pt. Runny nose started a couple days ago. Mild cough. Mild intermittent wheezing started this morning. Using inhalers, Maria C, and Flonase with some improvement. Discussed likely viral at this point. Reviewed recommended home care. Advised pt to call back if symptoms worsen. Reviewed precautions to seek emergency care. Verbalized understanding. No further questions. Also wanted to give overall update, has pcp appt 05/03 Still having DON- saw Dr Johnson 04/23. Same as when seen Wearing heart monitor until 05/06 Has also been seeing pain management in [place]- got injection in hip and groin which helped a lot. Taking gabapentin 100mg PRN. Will discuss at appt Thursday Pt reports being lonely but is doing well, has good control of blood sugars and lost weight. Please triage. documented in this encounter [facility] 04-23-2023 Note HNO ID: [id number] Author: IGOR JOHNSON DO Service: ? Author Type: Physician Type: Progress Notes Filed: 04/24/2023 09:54 Note Text: [facility] CARDIOLOGY [facility] OUTPATIENT VISIT DATE April 23, 2023 PRIMARY CARE PHYSICIAN: Сергей Meeks[address] [place] [id number] HISTORY OF PRESENT ILLNESS: Ms. Jamil is a 83 year old female. The patient was seen and evaluated today for dyspnea occurring with exertion abating with rest but worsens at time of stress, anxiety or worsening of her known interstitial lung disease. She is limited in her movement due to a bad right hip which is unable to be operated on as a result of her lung disease. She denies chest discomfort, orthopnea, paroxysmal nocturnal dyspnea, near-syncope or syncope. She has palpitations occurring for several minutes up to 3-4 times per week and anxiety problems situations, episodes of loneliness/depression and extremes of exertion. There were no other associated symptoms other than her dyspnea at times. The patient is over 60 years but lives currently alone as her resides in a care home due to challenges with him having inability to walk. She has never smoked nor drank. 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 She is retired. Her niece accompanies her today. Cardiac risk factors: Age, gender, hypertension, hyperlipidemia Impression: 1. Dyspnea exertion 2. Palpitations 3. Hypertension 4. Hyperlipidemia 5. Severe interstitial lung disease on chronic oxygen 6. History obstructive sleep apnea 7. History of anxiety and actually chronic palpitations 8. Advanced directive stating that she is a DO NOT RESUSCITATE. PLAN AND RECOMMENDATIONS: Patient has symptoms more likely associated with her lung disease. She had a relatively normal echocardiogram performed late last year with the exception of mild valvular heart disease. We would not make any additions or changes based on that testing. Given her comorbidities she would not be an invasive heart candidate however nor would she wish aggressive or invasive testing due to her chronic comorbidities. We will place telemetry monitoring to evaluate potential challenges as result of her palpitations and possible dysrhythmia. We will plan follow-up in a couple months time to review those results as they become available. Once again we have made no additions or changes but did offer reassurance. We did discuss various techniques to help mindfulness and challenges with her current situation which may be exacerbating her symptoms. She is looking forward to moving in with her in July however. Vitals: BP 160/80 Pulse 83 Ht 157.5 cm (5' 2") Wt 64.2 kg (141 lb 8.6 oz) SpO2 96% BMI 25.89 kg/m? Physical Exam Vitals reviewed. Constitutional: General: She is not in acute distress. Appearance: Normal appearance. She is well-developed. HENT: Head: Normocephalic and atraumatic. Nose: Nose normal. Eyes: General: No scleral icterus. Right eye: No discharge. Left eye: No discharge. Pupils: Pupils are equal, round, and reactive to light. Neck: Thyroid: No thyromegaly. Vascular: No carotid bruit or JVD. Cardiovascular: Rate and Rhythm: Normal rate and regular rhythm. Heart sounds: Normal heart sounds. No murmur heard. No friction rub. No gallop. Pulmonary: Effort: Pulmonary effort is normal. No respiratory distress. Breath sounds: Normal breath sounds. No wheezing or rales. Abdominal: General: Bowel sounds are normal. Palpations: Abdomen is soft. Musculoskeletal: General: Normal range of motion. Cervical back: Normal range of motion and neck supple. Skin: General: Skin is warm and dry. Capillary Refill: Capillary refill takes less than 2 seconds. Coloration: Skin is not pale. Neurological: Mental Status: She is alert and oriented to person, place, and time. Cranial Nerves: No cranial nerve deficit. Psychiatric: Behavior: Behavior normal. Thought Content: Thought content normal. Judgment: Judgment normal. Review of Systems Constitutional: Negative for activity change and fatigue. HENT: Negative for ear pain and facial swelling. Eyes: Negative for pain and discharge. Respiratory: Positive for shortness of breath. Negative for chest tightness. Cardiovascular: Positive for palpitations. Negative for chest pain and leg swelling. Gastrointestinal: Negative for abdominal pain, blood in stool, nausea and vomiting. Endocrine: Negative for cold intolerance and heat intolerance. Genitourinary: Negative for frequency and hematuria. Musculoskeletal: Negative for arthralgias and gait problem. Skin: Negative for color change, pallor and rash. Allergic/Immunologic: Negative for immunocompromised state. (more content not included)... [facility] 04-23-2023 Nurse Note EVENT MONITOR DISPOSABLE PATCH INSTRUCTIONS Patient Name: Merna Webster [facility] Number: [id number] Skin prepped and cleansed with alcohol Patch secured to prepped area Monitor Activated Serial #: [id number] Patient Instructed: Prescribed order timeframe Bathing guidelines Usage of event button and diary documentation Return of monitor at the end of prescribed order Call with problems [phone] or [phone]. [phone] Patient expresses a good understanding of instructions Hayes Rubio LPN documented in this encounter [facility] 04-23-2023 History of Present illness Narrative Images from the original note were not included. [facility] CARDIOLOGY [facility] OUTPATIENT VISIT DATE April 23, 2023 PRIMARY CARE PHYSICIAN: Сергей Espinoza [address] [place] [address] HISTORY OF PRESENT ILLNESS: Ms. Webster is a 83 year old female. The patient was seen and evaluated today for dyspnea occurring with exertion abating with rest but worsens at time of stress, anxiety or worsening of her known interstitial lung disease. She is limited in her movement due to a bad right hip which is unable to be operated on as a result of her lung disease. She denies chest discomfort, orthopnea, paroxysmal nocturnal dyspnea, near-syncope or syncope. She has palpitations occurring for several minutes up to 3-4 times per week and anxiety problems situations, episodes of loneliness/depression and extremes of exertion. There were no other associated symptoms other than her dyspnea at times. The patient is over 60 years but lives currently alone as her resides in a care home due to challenges with him having inability to walk. She has never smoked nor drank. 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 She is retired. Her niece accompanies her today. Cardiac risk factors: Age, gender, hypertension, hyperlipidemia Impression: 1. Dyspnea exertion 2. Palpitations 3. Hypertension 4. Hyperlipidemia 5. Severe interstitial lung disease on chronic oxygen 6. History obstructive sleep apnea 7. History of anxiety and actually chronic palpitations 8. Advanced directive stating that she is a DO NOT RESUSCITATE. PLAN AND RECOMMENDATIONS: Patient has symptoms more likely associated with her lung disease. She had a relatively normal echocardiogram performed late last year with the exception of mild valvular heart disease. We would not make any additions or changes based on that testing. Given her comorbidities she would not be an invasive heart candidate however nor would she wish aggressive or invasive testing due to her chronic comorbidities. We will place telemetry monitoring to evaluate potential challenges as result of her palpitations and possible dysrhythmia. We will plan follow-up in a couple months time to review those results as they become available. Once again we have made no additions or changes but did offer reassurance. We did discuss various techniques to help mindfulness and challenges with her current situation which may be exacerbating her symptoms. She is looking forward to moving in with her in July however. Vitals: BP 160/80 Pulse 83 Ht 157.5 cm (5' 2") Wt 64.2 kg (141 lb 8.6 oz) SpO2 96% BMI 25.89 kg/m Physical Exam Vitals reviewed. Constitutional: General: She is not in acute distress. Appearance: Normal appearance. She is well-developed. HENT: Head: Normocephalic and atraumatic. Nose: Nose normal. Eyes: General: No scleral icterus. Right eye: No discharge. Left eye: No discharge. Pupils: Pupils are equal, round, and reactive to light. Neck: Thyroid: No thyromegaly. Vascular: No carotid bruit or JVD. Cardiovascular: Rate and Rhythm: Normal rate and regular rhythm. Heart sounds: Normal heart sounds. No murmur heard. No friction rub. No gallop. Pulmonary: Effort: Pulmonary effort is normal. No respiratory distress. Breath sounds: Normal breath sounds. No wheezing or rales. Abdominal: General: Bowel sounds are normal. Palpations: Abdomen is soft. Musculoskeletal: General: Normal range of motion. Cervical back: Normal range of motion and neck supple. Skin: General: Skin is warm and dry. Capillary Refill: Capillary refill takes less than 2 seconds. Coloration: Skin is not pale. Neurological: Mental Status: She is alert and oriented to person, place, and time. Cranial Nerves: No cranial nerve deficit. Psychiatric: Behavior: Behavior normal. Thought Content: Thought content normal. Judgment: Judgment normal. Review of Systems Constitutional: Negative for activity change and fatigue. HENT: Negative for ear pain and facial swelling. Eyes: Negative for pain and discharge. Respiratory: Positive for shortness of breath. Negative for chest tightness. Cardiovascular: Positive for palpitations. Negative for chest pain and leg swelling. Gastrointestinal: Negative for abdominal pain, blood in stool, nausea and vomiting. Endocrine: Negative for cold intolerance and heat intolerance. Genitourinary: Negative for frequency and hematuria. Musculoskeletal: Negative for arthralgias and gait problem. Skin: Negative for color change, pallor and rash. Allergic/Immunologic: Negative for immunocompromised state. Neurological: Negative for dizziness, syncope, light-headedness and headaches. Hematological: Negative for adenopathy. Does not bruise/bleed easily. Psychiatric/Behavioral: Negative for confusion. The patient is not nervous/anxious. PAST MEDICAL HISTORY Diagnosis Date Apnea cpap Asthma Asthma Bowel disease Degeneration of lumbar or lumbosacral intervertebral disc significant Diverticulosis of colon (without mention of hemorrhage) Dysthymic disorder Depression (non-psychotic) Esophageal reflux Gastroesophageal reflux Hypothyroidism 05/22/2016 Migraine Obstructive sleep apnea osteoporosis T11 mild compression. Other and unspecified hyperlipidemia needs med Snoring Thyroid disorder Unspecified essential hypertension Essential hypertension PAST SURGICAL HISTORY Procedure Laterality Date COLONOSCOPY 2006 rpt 2011. had diverticulum. TONSILLECTOMY & ADENOIDECTOMY <AGE 13 Tonsil/adenoidectomy TOTAL ABDOMINAL HYSTERECT W/WO RMVL TUBE OVARY 1993 Hysterectomy, RAPHAEL - menorrhagia & fibroids Social History Tobacco Use Smoking status: Never Passive exposure: Past Smokeless tobacco: Never Substance Use Topics Alcohol use: No Drug use: No FAMILY HISTORY Problem Relation Age of Onset other (Kidney stones) Father Diabetes Brother Colon Cancer Brother Hypertension Brother COPD Sister ALLERGIES Allergen Reactions Rofecoxib Itching heart palpitations,red blotching on face Amoxicillin Intolerance Swelling in her eye. Aspirin heart palpitations Doxycycline GI Upset Ibuprofen face swells Lisinopril GI Upset Acid reflux Seasonal Allergies Intolerance Singulair [Monteluk* Rash Sulfa (Sulfonamide * rash Zoloft [Sertraline] Diarrhea CURRENT MEDICATIONS: betamethasone valerate 0.1 % ointment^Apply to affected area two times a day.^Disp: 15 g^Rfl: 1 pirfenidone (ESBRIET) 801 mg tablet^take 1 tablet by mouth 3 times a day^Disp: 90 tablet^Rfl: 11 ALPRAZolam (XANAX) 1 mg tablet^Take 1 tablet by mouth three times a day as needed for sedation or anxiety for up to 30 days. Do not start before April 16, 2023.^Disp: 90 tablet^Rfl: 0 fluticasone furoate (ARNUITY ELLIPTA) 100 mcg/actuation inhaler^Inhale 1 Puff as instructed once daily.^Disp: 3 Each^Rfl: 4 cloNIDine HCl (CATAPRES) 0.1 mg tablet^take 1 tablet twice daily^Disp: 180 tablet^Rfl: 3 fluticasone (FLOVENT) 110 mcg/actuation inhaler^Inhale 1 Puff as instructed two times a day. Shake well before use. Rinse mouth after use.^Disp: 1 Each^Rfl: 11 levothyroxine (SYNTHROID) 25 mcg tablet^Take 1 tablet by mouth once daily.^Disp: 90 tablet^Rfl: 4 verapamil SR (CALAN SR) 240 mg CR tablet^Take 1 tablet by mouth daily at bedtime.^Disp: 90 tablet^Rfl: 2 SUMAtriptan (IMITREX) 100 mg tablet^Take 1 tablet (100 mg) by mouth as needed for migraine headache (see administration instructions). at onset of headache.May repeat after 2 hours.^Disp: 9 tablet^Rfl: 1 esomeprazole (NEXIUM) 40 mg capsule^TAKE 1 CAPSULE BY MOUTH DAILY BEFORE BREAKFAST.^Disp: 90 capsule^Rfl: 4 CPAP/BIPAP/OTHER^Type .CPAPSettings into a note to see current settings/supplies/DME information.^Disp: 1 Each^Rfl: 0 fluticasone propionate (FLONASE NASAL)^Use in the nose as needed (Pt uses 1 spray each nostril once a day as needed.).^Disp: ^Rfl: erythromycin (ROMYCIN) 5 mg/gram (0.5 %) ophthalmic ointment^daily at bedtime.^Disp: ^Rfl: nortriptyline (PAMELOR) 75 mg capsule^TAKE 1 CAPSULE AT BEDTIME^Disp: 90 capsule^Rfl: 3 pravastatin (PRAVACHOL) 40 mg tablet^Take 1 tablet by mouth daily at bedtime.^Disp: 90 tablet^Rfl: 4 triamcinolone acetonide (KENALOG) 0.5 % cream^Apply to affected area three times daily.^Disp: 15 g^Rfl: 1 VENTOLIN HFA 90 mcg/actuation inhaler^Inhale 2 Puffs as instructed every 4 hours as needed.^Disp: 18 g^Rfl: 11 fexofenadine (MARIA C) 180 mg tablet^Take 180 mg by mouth as needed (Patient choice).^Disp: ^Rfl: OXYGEN, HOME THERAPY,^Please dispense an oxygen concentrator, a portable oxygen concentrator and all necessary accessories to be used at 2L/min NC with exertion and with sleep.^Disp: 1 Each^Rfl: 99 COMPOUNDED PRESCRIPTION^Please dispense an oxygen concentrator and a portable oxygen concentrator and all necessary accessories to be used at 2L/min NC with exertion.^Disp: 1 Each^Rfl: 0 acetaminophen/caffeine (EXCEDRIN ASPIRIN FREE ORAL)^Take 2 tablets by mouth as needed.^Disp: ^Rfl: Inhalational Spacing Device (AEROCHAMBER) Spcr^1 Device as directed.^Disp: 1 Inhaler^Rfl: 0 METHOTREXATE ORAL^Take by mouth.^Disp: ^Rfl: (Patient not taking: Reported on 04/23/2023) pregabalin (LYRICA) 50 mg capsule^Take 1 capsule by mouth two times a day for 30 days.^Disp: 60 capsule^Rfl: 0 fluticasone (FLONASE) 50 mcg/actuation nasal spray^Use 1 [place] in each nostril two times a day.^Disp: 1 Each^Rfl: 5 levalbuterol tartrate HFA 45 mcg/actuation inhaler^INHALE 1-2 PUFFS INSTRUCTED EVERY 4 HOURS NEEDED FOR WHEEZING/SHORTNESS OF BREATH.^Disp: 45 g^Rfl: 3 albuterol (PROVENTIL) 2.5 mg /3 mL (0.083 %) nebulizer solution^Use 3 mL via nebulizer every 4 hours as needed for wheezing/shortness of breath. Use via nebulizer three times daily as needed. OVER 5-15 MINUTES. FOR WHEEZING AND SHORTNESS OF BREATH.^Disp: 360 mL^Rfl: 3 promethazine (PHENERGAN) 12.5 mg tablet^Take 1 tablet by mouth every 6 hours as needed (Headache).^Disp: 10 tablet^Rfl: 0 (Patient not taking: Reported on 04/23/2023) CPAP^Dispense CPAP 6 cmH2O, mask, tubing, filters, heated humidity, lifetime supplies. Dx: JENNY^Disp: 1 Device^Rfl: 0 Igor Johnson DO, FACC, [facility] Feed Project Engineer, [facility] Amb[facility]iology Feed Project Engineer, [facility] Cardiac Rehabilitation Feed Project Engineer, [facility] Cardiac Rehabilitation Feed Project Engineer, [facility] Feed Project Engineer, [facility] Ambulatory Cardiology Clinical [facility] Profressor of Medicine, [facility] [facility] Staff Nurse First Aid, [facility] Rin [facility] Department of Cardiovascular Medicine/Heart and Vascular [place], [facility] Please note: This note has been produced using speech recognition software and may contain errors related to that system including kim, punctuation, spelling, words, gender and phrases that may be inappropriate. documented in this encounter [facility] 04-23-2023 Miscellaneous Notes Last appointment: 02/27/23 Next appointment: 05/04/23 Pharmacy verified in [facility]. Refill(s) requested: Requested Prescriptions Pending Prescriptions Disp Refills betamethasone valerate 0.1 % ointment 15 g 1 Sig: Apply to affected area two times a day. Order(s) pended. Please advise. Tana Julien MA, [facility] documented in this encounter [facility] 04-16-2023 Miscellaneous Notes Pt left on RN line stating she has diarrhea and vomiting. Diarrhea started yesterday Was constipated and took milk of magnesia with no results, after second dose of MOM pt started to have diarrhea. Took anti diarrhea medication Diarrhea has resolved. Said she was vomiting this morning Seems to be getting better, ate chicken broth and toast, recently ate tapioca pudding Discussed staying well hydrated and symptoms of dehydration. Pt will call back if symptoms persist or worsen. Reason for Disposition MILD-MODERATE diarrhea (e.g., 1-6 times / day more than normal) Protocols used: [id number] documented in this encounter [facility] 04-14-2023 Miscellaneous Notes PDMP website checked and validated. All prescriptions have been APPROPRIATELY filled. No suspicious activity was identified. 04/14/2023 by Brinda Dominguez APRN.INSPECTOR E[employer] Last appointment: 02/27/23 Next appointment: 05/04/23 Pharmacy verified in [facility]. Refill(s) requested: Requested Prescriptions Pending Prescriptions Disp Refills ALPRAZolam (XANAX) 1 mg tablet 90 tablet 0 Sig: Take 1 tablet by mouth three times a day as needed for sedation or anxiety for up to 30 days. Order(s) pended. Please advise. Tana Julien MA, FOREST MANAGER documented in this encounter [facility] 03-31-2023 Miscellaneous Notes I had a online chat session with Dona from [employer]. She states they don't show any Compliance report on Merna. The reason may be her machine does not transmit electronically and don't have a the [employer] card on the patient to download the information. Just an FYI. documented in this encounter [facility] 02-13-2023 Miscellaneous Notes PDMP website checked and validated. All prescriptions have been APPROPRIATELY filled. No suspicious activity was identified. 02/13/2023 by Brinda Dominguez APRN.[employer] Last appointment: 01/19/23 Next appointment: 05/04/23 Pharmacy verified in [facility]. Refill(s) requested: Requested Prescriptions Pending Prescriptions Disp Refills ALPRAZolam (XANAX) 1 mg tablet 90 tablet 0 Sig: Take 1 tablet by mouth three times a day as needed for sedation or anxiety for up to 30 days. Order(s) pended. Please advise. Tana Julien MA, FOREST MANAGER documented in this encounter [facility] 02-06-2023 Miscellaneous Notes Last appointment: 01/19/23 Next appointment: 05/04/23 Pharmacy verified in [facility]. Refill(s) requested: Requested Prescriptions Pending Prescriptions Disp Refills SUMAtriptan (IMITREX) 100 mg tablet 9 tablet 1 Sig: Take 1 tablet (100 mg) by mouth as needed for migraine headache (see administration instructions). at onset of headache.May repeat after 2 hours. Order(s) pended. Please advise. Lauren Garcia LPN, CMA documented in this encounter [facility] 02-01-2023 Miscellaneous Notes Reason for Call: Patient calling with request for covid questions. Patient denies any new or worsening symptoms of which a provider is not aware: Yes. documented in this encounter [facility] 01-19-2023 History of Present illness Narrative ESTABLISHED PATIENT Merna Webster is a 82 year old female presenting for F/U 3 months. HISTORY OF PRESENT ILLNESS Hypertension Follow up. Had clonidine increased to TID Medication Adherence: no missed doses and took medications this morning Home monitorins systolic Heart palpitations: no Chest pain: no Last 3 Encounter BP Readings: Date: BP: 01/19/2023 152/80 11/28/2022 161/79 11/12/2022 119/73 Sinuses have been bother patient more. Allergy. Has palpitaitons. Continues to have palpitations. Feel palpitations more when she gets out of breath. Has JENNY. On cpap. Xanax helping with anxiety. Taking three times per day. Has psoriasis on scalp. Curent steroid cream not helping enough. ASSESSMENT: (F41.9) Anxiety (primary encounter diagnosis) (Z23) Encounter for immunization (R00.2) Palpitations (L40.9) Psoriasis (I10) Primary hypertension (R09.81) Sinus congestion PLAN: Refill xanax Vaccines Heart monitor REfill steroid cream Prednisone for breathing and sinus BP stable labile. Increase clonidine to TID to see if that helps HISTORIES FAMILY HISTORY Problem Relation Age of Onset other (Kidney stones) Father Diabetes Brother Colon Cancer Brother Hypertension Brother COPD Sister PAST MEDICAL HISTORY Diagnosis Date Apnea cpap Asthma Asthma Bowel disease Degeneration of lumbar or lumbosacral intervertebral disc significant Diverticulosis of colon (without mention of hemorrhage) Dysthymic disorder Depression (non-psychotic) Esophageal reflux Gastroesophageal reflux Hypothyroidism 05/22/2016 Migraine Obstructive sleep apnea osteoporosis T11 mild compression. Other and unspecified hyperlipidemia needs med Snoring Thyroid disorder Unspecified essential hypertension Essential hypertension PAST SURGICAL HISTORY Procedure Laterality Date COLONOSCOPY 2006 rpt 2011. had diverticulum. TONSILLECTOMY & ADENOIDECTOMY <AGE 13 Tonsil/adenoidectomy TOTAL ABDOMINAL HYSTERECT W/WO RMVL TUBE OVARY 1993 Hysterectomy, RAPHAEL - menorrhagia & fibroids Social History Tobacco Use Smoking status: Never Smokeless tobacco: Never Substance Use Topics Alcohol use: No Drug use: No Allergies: ALLERGIES Allergen Reactions Rofecoxib Itching heart palpitations,red blotching on face Amoxicillin Other: See Comments Swelling in her eye. Aspirin heart palpitations Doxycycline GI Upset Ibuprofen face swells Lisinopril GI Upset Acid reflux Seasonal Allergies Other: See Comments Singulair [Monteluk* Rash Sulfa (Sulfonamide * rash Zoloft [Sertraline] Diarrhea Medications: ALPRAZolam (XANAX) 1 mg tablet^Take 1 tablet by mouth three times a day as needed for sedation or anxiety for up to 30 days.^Disp: 90 tablet^Rfl: 0 cloNIDine HCl (CATAPRES) 0.1 mg tablet^Take 1 tablet by mouth three times a day.^Disp: 270 tablet^Rfl: 1 esomeprazole (NEXIUM) 40 mg capsule^TAKE 1 CAPSULE BY MOUTH DAILY BEFORE BREAKFAST.^Disp: 90 capsule^Rfl: 4 CPAP/BIPAP/OTHER^Type .CPAPSettings into a note to see current settings/supplies/DME information.^Disp: 1 Each^Rfl: 0 fluticasone propionate (FLONASE NASAL)^Use in the nose as needed (Pt uses 1 spray each nostril once a day as needed.).^Disp: ^Rfl: escitalopram oxalate (LEXAPRO) 5 mg tablet^Take 1 tablet by mouth once daily.^Disp: 30 tablet^Rfl: 1 (Patient not taking: Reported on 11/28/2022) erythromycin (ROMYCIN) 5 mg/gram (0.5 %) ophthalmic ointment^daily at bedtime.^Disp: ^Rfl: amoxicillin, chewable (AMOXIL) 125 mg chewable tablet^Take by mouth three times daily.^Disp: ^Rfl: (Patient not taking: Reported on 11/28/2022) pirfenidone (ESBRIET) 801 mg tablet^TAKE 1 TABLET BY MOUTH 3 TIMES A DAY^Disp: 90 tablet^Rfl: 5 fluticasone (FLOVENT HFA) 110 mcg/actuation inhaler^Inhale 1 Puff as instructed twice daily. Shake well before use. Rinse mouth after use.^Disp: 3 Each^Rfl: 1 levalbuterol tartrate HFA 45 mcg/actuation inhaler^INHALE 1-2 PUFFS INSTRUCTED EVERY 4 HOURS NEEDED FOR WHEEZING/SHORTNESS OF BREATH.^Disp: 45 g^Rfl: 3 levothyroxine (SYNTHROID) 25 mcg tablet^Take 1 tablet by mouth once daily.^Disp: 90 tablet^Rfl: 4 nortriptyline (PAMELOR) 75 mg capsule^TAKE 1 CAPSULE AT BEDTIME^Disp: 90 capsule^Rfl: 3 SUMAtriptan (IMITREX) 100 mg tablet^Take 1 tablet by mouth as needed for migraine headache (see administration instructions). at onset of headache.May repeat after 2 hours.^Disp: 9 tablet^Rfl: 1 verapamil SR (CALAN SR) 240 mg CR tablet^Take 1 tablet by mouth daily at bedtime.^Disp: 90 tablet^Rfl: 2 betamethasone valerate 0.1 % cream^Apply 1 application to affected area twice daily.^Disp: 45 g^Rfl: 1 pravastatin (PRAVACHOL) 40 mg tablet^Take 1 tablet by mouth daily at bedtime.^Disp: 90 tablet^Rfl: 4 triamcinolone acetonide (KENALOG) 0.5 % cream^Apply to affected area three times daily.^Disp: 15 g^Rfl: 1 VENTOLIN HFA 90 mcg/actuation inhaler^Inhale 2 Puffs as instructed every 4 hours as needed.^Disp: 18 g^Rfl: 11 fexofenadine (MARIA C) 180 mg tablet^Take 180 mg by mouth as needed (Patient choice).^Disp: ^Rfl: albuterol (PROVENTIL) 2.5 mg /3 mL (0.083 %) nebulizer solution^Use 3 mL via nebulizer every 4 hours as needed for wheezing/shortness of breath. Use via nebulizer three times daily as needed. OVER 5-15 MINUTES. FOR WHEEZING AND SHORTNESS OF BREATH.^Disp: 360 mL^Rfl: 3 promethazine (PHENERGAN) 12.5 mg tablet^Take 1 tablet by mouth every 6 hours as needed (Headache).^Disp: 10 tablet^Rfl: 0 (Patient not taking: Reported on 11/28/2022) CPAP^Dispense CPAP 6 cmH2O, mask, tubing, filters, heated humidity, lifetime supplies. Dx: JENNY^Disp: 1 Device^Rfl: 0 OXYGEN, HOME THERAPY,^Please dispense an oxygen concentrator, a portable oxygen concentrator and all necessary accessories to be used at 2L/min NC with exertion and with sleep.^Disp: 1 Each^Rfl: 99 COMPOUNDED PRESCRIPTION^Please dispense an oxygen concentrator and a portable oxygen concentrator and all necessary accessories to be used at 2L/min NC with exertion.^Disp: 1 Each^Rfl: 0 acetaminophen/caffeine (EXCEDRIN ASPIRIN FREE ORAL)^Take 2 tablets by mouth as needed.^Disp: ^Rfl: Inhalational Spacing Device (AEROCHAMBER) Spcr^1 Device as directed.^Disp: 1 Inhaler^Rfl: 0 REVIEW OF SYSTEMS GENERAL: No weight loss, malaise or fevers. All other systems reviewed and negative other than HPI. PHYSICAL EXAM BP 152/80 Pulse 89 Temp 36.8 C (98.3 F) Resp 16 Ht 157.5 cm (5' 2") Wt 64.9 kg (143 lb) SpO2 96% BMI 26.16 kg/m General: Well developed, well nourished, in no acute distress. Head: Normocephalic, atraumatic. Neck: Supple. Eyes: Normal conjunctiva, no scleral icterus. Lungs: Clear to auscultation bilaterally, no rubs, no wheezing. Cardiac: Regular rate and rhythm. No murmurs, gallops, or rubs. Extremities: No edema. Сергей Espinoza MD RSV Vaccine(1 - 1-dose 60+ series) Never done Covid-19 Vaccine(2022-24 season) due on 10/31/2022 documented in this encounter [facility] 01-19-2023 Instructions Callie Taylor - 01/19/2023 6:35 PM EST [facility] BUILDING LAB TEST INFORMATION [facility] BUILDING LAB HOURS: Lab is open: 7:30am to 5:00pm - , 7:30am to 4:00pm on Thu and 8am -12pm on Thu. The lab is located in [facility] on the first floor. There is a registration window at the lab, available 7 am to 3 pm Thursday - Thursday. If registration is unavailable at the lab, you may register at the patient registration office near the [facility]. SCHEDULING A LAB APPOINTMENT: Laboratory appointments are recommended.Walk ins are still accepted. Call [phone] or schedule via [employer] scheduling ticket. ROUTINE LAB ORDERS 60 days after they are entered. If your lab orders , you may be required to wait in the lab while they are reinstated FUTURE ORDERS are lab tests to be completed on the EXPECTED date. These orders 60 days after the expected date. STANDING ORDERS are recurring orders with an expiration date. The interval will indicate how often the test should be completed. CT / MRI / IVP If you have lab tests ordered for one of these radiology exams, please complete the blood work at least one day prior to the scheduled exam. PRESCRIPTION REFILL REQUESTS Request prescription refills through your [employer] account or contact your Pharmacy. My Chart Schedule My Appointment enables you to view your established primary care provider's open schedule and book an appointment online in real-time. This feature is available in internal medicine, family medicine, or pediatrics at any of our [facility] locations and main campus. documented in this encounter [facility] 01-06-2023 Miscellaneous Notes Spoke with patient, said she doesn't need to reschedule now. Please my chart, assist patient with rescheduling Patient is scheduled Please help patient get an appt Сергей Espinoza MD documented in this encounter [facility] 12-30-2022 Miscellaneous Notes We received a fax stating 2022 [employer] Formulary has changed for Flovent Alternative Drug is [employer] Ell[employer]. Form to be scanned in chart tomorrow and placed in drawer. FYI. documented in this encounter [facility] 12-18-2022 Miscellaneous Notes PDMP website checked and validated. All prescriptions have been APPROPRIATELY filled. No suspicious activity was identified. 12/18/2022 by Brinda Dominguez APRN.TREVA Last appointment: 11/12/22 Next appointment: 01/19/23 Pharmacy verified in [employer]. Refill(s) requested: Requested Prescriptions Pending Prescriptions Disp Refills ALPRAZolam (XANAX) 1 mg tablet 90 tablet 0 Sig: Take 1 tablet by mouth three times a day as needed for sedation or anxiety for up to 30 days. Order(s) pended. Please advise, thank you. Cha TAYLOR December 18, 2022 11:34 AM documented in this encounter [facility] 12-17-2022 Miscellaneous Notes Form was completed, form, Last oV note, and sleep studies from 2016 were faxed to [facility] at . Fax Confirmation was received and forms were placed in the fax drawer. Fax received from [facility] - form for cpap order. Form placed on dr grier's desk for review/signature. documented in this encounter [facility] 12-17-2022 Miscellaneous Notes There are MANY other phone encounters regarding this. Order and supporting documents have been sent to [facility] several times, have spoken with [facility] several times regarding this as well as with the patient many times. As documented in previous phone encounter, yesterday afternoon we received a faxed form for the cpap settings - this was placed in dr grier's inbox to await completion. Hi my name is Joanne I'm calling with [facility] in regards to Isis Webster. Date of is two 12:19 42. I am calling in regards to a CPAP she is needing a new one and I don't have an order yet but I know we had talked to somebody this morning. I was just trying to get an update on if in order will come to us or if we need to send an order request. Our phone number is [phone]. Thank you and have a good day." Patient needs a new script for CPAP sent to her durable medical supplier. documented in this encounter [facility] 12-16-2022 Miscellaneous Notes Opened i documented in this encounter [facility] 12-08-2022 Miscellaneous Notes Called and spoke with 2 different reps at [facility] - they both confirm they did receive cpap order on 11/17/22 however they only sent cpap supplies to the patient even though the order was for a cpap device itself. Neither rep I spoke with knows why this was done. They both state they do not typically handle cpaps. I was transferred x2 to a number that just rings with no answer. Called back and [facility] rep states she does not know why no one is answering the phone. She suggests patient go to the [facility] office directly - I did let rep know that it appears their office is an hour drive away for patient, this is not an acceptable option. States she will send an email to the person who handles cpap orders to try to find out why this was not sent to patient. documented in this encounter [facility] 11-28-2022 Miscellaneous Notes Done. I will nd her a message. thanks Medication was set up and preferred pharmacy was selected. Please advise. Patient was in office today and is asking if azythromycin and prednisone can be sent to [facility] in [place] instead of [facility]? She also states she takes medicine for her migraines and is asking if that medication is safe to take with the azythromycin and prednisone? Please advise, patient states to just send her a message on [employer] letting her know. documented in this encounter [facility] 11-28-2022 Note HNO ID: [id number] Author: Lucia Han RT(R) Service: Radiology Author Type: Asic Design Engineer Type: Progress Notes Filed: 11/28/2022 12:12 PM Note Text: Radiology Service Progress Note PATIENT NAME: Merna Webster DATE OF SERVICE: November 28, 2022 TIME: 12:11 PM PATIENT IDENTITY VERIFICATION COMPLETED USING TWO (2) IDENTIFIERS: Name and Date of confirmed by patient verbally. FALL SCREENING: Has the patient had 2 falls in the last year or 1 fall with injury or currently using an Ambulatory Assistive Device (Walker, Cane, Wheelchair, Crutches, etc.)? No PATIENT GENDER DATA: Female. status: : No status: NO. PATIENT RELEVANT IMPLANT DATA REVIEWED: Not Applicable RADIOLOGY DEPARTMENT: General X-ray: Exam(s) Completed: Chest X-Ray PERIPHERAL IV DATA: Not applicable SIGNED BY: RT Louann(Ebony) November 28, 2022 12:11 PM [facility] 11-28-2022 History of Present illness Narrative Radiology Service Progress Note PATIENT NAME: Merna Webster DATE OF SERVICE: November 28, 2022 TIME: 12:11 PM PATIENT IDENTITY VERIFICATION COMPLETED USING TWO (2) IDENTIFIERS: Name and Date of confirmed by patient verbally. FALL SCREENING: Has the patient had 2 falls in the last year or 1 fall with injury or currently using an Ambulatory Assistive Device (Walker, Cane, Wheelchair, Crutches, etc.)? No PATIENT GENDER DATA: Female. status: : No status: NO. PATIENT RELEVANT IMPLANT DATA REVIEWED: Not Applicable RADIOLOGY DEPARTMENT: General X-ray: Exam(s) Completed: Chest X-Ray PERIPHERAL IV DATA: Not applicable SIGNED BY: RT Louann(Ebony) November 28, 2022 12:11 PM documented in this encounter [facility] 11-28-2022 History of Present illness Narrative Images from the original note were not included. [facility] DEPART[facility]ULMON[facility]ICINE ESTABLISHED PATIENT OFFICE VISIT 11/28/2022 Patient Name: Merna Webster PRIMARY CARE PHYSICIAN: Сергей Espinoza MD CHIEF COMPLAINT: asthma-IPF f/up HISTORY OF PRESENT ILLNESS: Since the last visit with me on 09/2021, Ms. Webster has been having worsening SOB and O2 sat for the last few days. Denies new cough or sputum production or wheezing or leg swelling She noticed her oxygen saturations has been dropping significantly when she takes her oxygen off On Thursday morning she took off her oxygen to use the restroom in the morning and oxygen drops to 69%-changed to 3 L to get up. She is also feeling episodes of heart pounding in the afternoon She continues to use Flovent and Esbriet. To continue to use CPAP machine Continue to use oxygen supplementation on exertion and during nighttime Living by herself- at care home Nephew accompanying her today- discussed other possibilities like assisted living vs NH or visiting nurse Most recent CT scan chest 06/2022 stable IPF pattern 6-minute walk test October 28, 2021 Walk 59% of predicted. Required 2 L of oxygen during exercise Medications: Flovent 2 inhalation twice daily pro-air or albuterol nebulizer as needed Esbriet since August 2018- Social History Tobacco Use Smoking status: Never Smokeless tobacco: Never Substance Use Topics Alcohol use: No Drug use: No ALLERGIES ALLERGIES Allergen Reactions Rofecoxib Itching heart palpitations,red blotching on face Aspirin heart palpitations Doxycycline GI Upset Ibuprofen face swells Lisinopril GI Upset Acid reflux Seasonal Allergies Other: See Comments Singulair [Monteluk* Rash Sulfa (Sulfonamide * rash CURRENT OUTPATIENT MEDICATIONS ALPRAZolam (XANAX) 1 mg tablet^Take 1 tablet by mouth three times daily as needed for sedation or anxiety for up to 30 days. Do not start before November 20, 2022.^Disp: 90 tablet^Rfl: 0 escitalopram oxalate (LEXAPRO) 5 mg tablet^Take 1 tablet by mouth once daily.^Disp: 30 tablet^Rfl: 1 erythromycin (ROMYCIN) 5 mg/gram (0.5 %) ophthalmic ointment^daily at bedtime.^Disp: ^Rfl: amoxicillin, chewable (AMOXIL) 125 mg chewable tablet^Take by mouth three times daily.^Disp: ^Rfl: cloNIDine HCl (CATAPRES) 0.1 mg tablet^Take 1 tablet by mouth twice daily.^Disp: 180 tablet^Rfl: 1 pirfenidone (ESBRIET) 801 mg tablet^TAKE 1 TABLET BY MOUTH 3 TIMES A DAY^Disp: 90 tablet^Rfl: 5 fluticasone (FLOVENT HFA) 110 mcg/actuation inhaler^Inhale 1 Puff as instructed twice daily. Shake well before use. Rinse mouth after use.^Disp: 3 Each^Rfl: 1 levalbuterol tartrate HFA 45 mcg/actuation inhaler^INHALE 1-2 PUFFS INSTRUCTED EVERY 4 HOURS NEEDED FOR WHEEZING/SHORTNESS OF BREATH.^Disp: 45 g^Rfl: 3 esomeprazole (NEXIUM) 40 mg capsule^Take 1 capsule by mouth twice daily before meals.^Disp: 180 capsule^Rfl: 1 levothyroxine (SYNTHROID) 25 mcg tablet^Take 1 tablet by mouth once daily.^Disp: 90 tablet^Rfl: 4 nortriptyline (PAMELOR) 75 mg capsule^TAKE 1 CAPSULE AT BEDTIME^Disp: 90 capsule^Rfl: 3 SUMAtriptan (IMITREX) 100 mg tablet^Take 1 tablet by mouth as needed for migraine headache (see administration instructions). at onset of headache.May repeat after 2 hours.^Disp: 9 tablet^Rfl: 1 verapamil SR (CALAN SR) 240 mg CR tablet^Take 1 tablet by mouth daily at bedtime.^Disp: 90 tablet^Rfl: 2 betamethasone valerate 0.1 % cream^Apply 1 application to affected area twice daily.^Disp: 45 g^Rfl: 1 pravastatin (PRAVACHOL) 40 mg tablet^Take 1 tablet by mouth daily at bedtime.^Disp: 90 tablet^Rfl: 4 triamcinolone acetonide (KENALOG) 0.5 % cream^Apply to affected area three times daily.^Disp: 15 g^Rfl: 1 VENTOLIN HFA 90 mcg/actuation inhaler^Inhale 2 Puffs as instructed every 4 hours as needed.^Disp: 18 g^Rfl: 11 fexofenadine (MARIA C) 180 mg tablet^Take 180 mg by mouth once daily.^Disp: ^Rfl: albuterol (PROVENTIL) 2.5 mg /3 mL (0.083 %) nebulizer solution^Use 3 mL via nebulizer every 4 hours as needed for wheezing/shortness of breath. Use via nebulizer three times daily as needed. OVER 5-15 MINUTES. FOR WHEEZING AND SHORTNESS OF BREATH.^Disp: 360 mL^Rfl: 3 promethazine (PHENERGAN) 12.5 mg tablet^Take 1 tablet by mouth every 6 hours as needed (Headache).^Disp: 10 tablet^Rfl: 0 CPAP^Dispense CPAP 6 cmH2O, mask, tubing, filters, heated humidity, lifetime supplies. Dx: JENNY^Disp: 1 Device^Rfl: 0 OXYGEN, HOME THERAPY,^Please dispense an oxygen concentrator, a portable oxygen concentrator and all necessary accessories to be used at 2L/min NC with exertion and with sleep.^Disp: 1 Each^Rfl: 99 COMPOUNDED PRESCRIPTION^Please dispense an oxygen concentrator and a portable oxygen concentrator and all necessary accessories to be used at 2L/min NC with exertion.^Disp: 1 Each^Rfl: 0 acetaminophen/caffeine (EXCEDRIN ASPIRIN FREE ORAL)^Take 2 tablets by mouth as needed.^Disp: ^Rfl: Inhalational Spacing Device (AEROCHAMBER) Spcr^1 Device as directed.^Disp: 1 Inhaler^Rfl: 0 REVIEW OF SYSTEMS Review of Systems Constitutional: Negative for chills, fever and weight loss. Respiratory: Positive for shortness of breath. Negative for cough, hemoptysis, sputum production and wheezing. The remainder of review of systems was negative. PHYSICAL EXAMINATION: BP 161/79 Pulse 91 Wt 63.4 kg (139 lb 12.8 oz) SpO2 96% BMI 25.16 kg/m General appearance: Well appearing, alert, in no acute distress, well-hydrated, well nourished. Lungs: Positive findings: crackles Heart: RRR without murmur, gallop, or rubs. No ectopy. No edema. Peripheral pulses: Normal Abdomen: Normal abdominal exam, Abdomen soft, non-tender. Bowel sounds normal. No masses, organomegaly Extremities: Normal, Warm, and No cyanosis, no clubbing, "Nontender Neuro: no focal deficit Psychiatry: Alert, oriented x3 DATA: Diagnostic tests reviewed for today's visit, including films and specimens, were personally reviewed by me Most recent labs and imaging results. No results found. CT CHEST WO IVCON Result Date: 07/16/2022 IMPRESSION: 1. 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 No significant interval change 2. No definite nodules are seen on this study 3. Findings are again compatible with Pulmonary arterial hypertension Director Foundation: YURIDIA Transcribe Date/Time: Jul 16 2022 1:20P Dictated by : FLORIN ROSSI DO This examination was interpreted and the report reviewed and electronically signed by: FLORIN ROSSI DO on Jul 16 2022 1:43PM EST Immunizations: Up to date IMPRESSION: 1. Mild persistent asthma without acute exacerbation- ICD9: 493.90, ICD10: J45.30 (primary diagnosis) We will give a course of prednisone and doxycycline Chest x-ray today - Continue Flovent: 110 mcg 2 puffs twice daily - Albuterol MDI 2 puffs with spacer prn 2. Idiopathic pulmonary fibrosis (HCC) - ICD9: 516.31, ICD10: J84.112 -Restrictive lung disease, severely reduced DLCO -Normal connective-tissue disease workup -Could not tolerate Ofev -Patient tolerating Esbriet since August 2018 liver function tests normal We will treat for possible acute exacerbation of IPF with course of doxycycline and steroids Check echocardiogram 3. Chronic respiratory failure with hypoxia (HCC) - ICD9: 518.83, 799.02, ICD10: J96.11 - Continue supplemental oxygen. Currently using 2-3L NC - DME: [employer] 4. Obstructive sleep apnea on cpap - Compliant with nightly use and benefiting 5. Gastroesophageal reflux disease, unspecified whether esophagitis present - ICD9: 530.81, ICD10: K21.9 - Discussed lifestyle modifications including losing weight, limiting caffeine, no meals three hours before sleep and head of bed elevation -Well controlled on Nexium 6. Allergic rhinitis, unspecified seasonality, unspecified trigger - ICD9: 477.9, ICD10: J30.9 - Well controlled on Flonase and Maria C 7. Post Covid syndrome Referral to [place] discussed Referral to functional medicine discussed improving 8. H/o covid infection November 2020 Did not require hsopitalization check echocardiogram 9. Palpitataions Ecg today Referral to cardiology Sona Grier MD, CHAYO Staff, Respiratory Ad[facility] documented in this encounter [facility] 11-19-2022 Miscellaneous Notes PDMP website checked and validated. All prescriptions have been APPROPRIATELY filled. No suspicious activity was identified. 11/19/2022 by Brinda Dominguez APRN.INS[employer] Last appointment: 11/12/22 Next appointment: 12/24/22 Pharmacy verified in [employer]. Refill(s) requested: Requested Prescriptions Pending Prescriptions Disp Refills ALPRAZolam (XANAX) 1 mg tablet 90 tablet 0 Sig: Take 1 tablet by mouth three times daily as needed for sedation or anxiety for up to 30 days. Order(s) pended. Please advise,thank you. Cha TAYLOR November 19, 2022 2:27 PM documented in this encounter [facility] 11-18-2022 Miscellaneous Notes Reason: Patient calling with request for health information: verbalized understanding of information provided. Patient denies any new or worsening symptoms of which a provider is not aware: Yes. Patient questions whether she can take an additional BP tablet of her BP medication if her BP gets high this evening. Patient's most recent BP 134/74. Patient states last night she had an episode of where her BP was 174/93. Patient states she has been working with her PCP regarding her elevated BP. Outcome: Encouraged patient to return call if her BP elevates for further advisement. Advised her that she currently has good control of her BP at this time. Patient also notes that she was recently prescribed Lexapro. Patient questions whether she should start it today or tomorrow. I encouraged her to start it in the mornings so it works on her anxiety across the day. Patient notes that her recently went to care home and that she is anxious as she has never lived by herself. Reassurance was provided and I encouraged her again to call her if she has any needs. GO TO THE EMERGENCY ROOM OR CALL 911 IF: * You develop any new symptoms * Your condition worsens * You are concerned or anxious about your condition for any other reason. If you have any questions, you can call Nurse stone planer back. documented in this encounter [facility] 11-17-2022 Miscellaneous Notes . documented in this encounter [facility] 11-17-2022 Miscellaneous Notes 17 pages sent over to [employer] at fax # [phone] Please send CPAP supply orders to her [employer] company Thank you documented in this encounter [facility] 11-17-2022 Miscellaneous Notes Addended by: KENYON ZUNIGA on: 11/17/2022 04:17 PM Modules accepted: Orders documented in this encounter [facility] 11-11-2022 Miscellaneous Notes Images from the original note were not included. Merna Webster" P Chahal [facility] (supporting Сергей Espinoza MD) Yesterday (6:24 PM) Dr Espinoza my blood pressure is still jumping up a down on Thursday nite it was. 152/102 l am depressed to high heaven and am wanting to know if I need higher dose of blood pressure medication l ate foods to bring it down the now it is going up and down makes me feel terrible what can l do l am miserable. Merna Dunn Called pt regarding MyChart message. Joseph night BP was 152/102. Last evening BP also was elevated, Merna was worried about some news received from the care home that Zach was exposed to Covid, so now she can't visit. Recently 155/100 Had a mild headache, now resolved. Achy between shoulder blades. Denies dizziness, vision changes, or any other symptoms. Taking clonidine twice daily, wondering if does should be increased. Advised pt, recommend eval. Assisted with scheduling. Reviewed precautions to call back or seek emergency care. Reason for Disposition Systolic BP >= 160 OR Diastolic >= 100 Protocols used: Blood Pressure - [id number] documented in this encounter [facility] 11-10-2022 Miscellaneous Notes Completed forms received from dr grier and faxed back to [employer]. Transmission successful, paperwork in fax drawer. Fax received from [employer] - form for oxygen order [id number], [id number], [id number], [id number]. Form placed on dr grier's desk for review/signature. documented in this encounter [facility] 11-05-2022 Miscellaneous Notes Second attempt at contacting patient, left VM to schedule sooner with an SUPERVISOR LIME if she would like First attempt: left message for patient to call back and schedule appointment documented in this encounter [facility] 10-30-2022 Miscellaneous Notes Reply to Pt has been sent. documented in this encounter [facility] 10-24-2022 Note HNO ID: [id number] Author: Mouna Kenney Tech Service: Radiology Author Type: Asic Design Engineer Type: Progress Notes Filed: 10/24/2022 2:46 PM Note Text: Radiology Service Progress Note PATIENT NAME: Merna Webster DATE OF SERVICE: October 24, 2022 TIME: 2:45 PM PATIENT IDENTITY VERIFICATION COMPLETED USING TWO (2) IDENTIFIERS: Name and Date of confirmed by patient verbally. FALL SCREENING: Has the patient had 2 falls in the last year or 1 fall with injury or currently using an Ambulatory Assistive Device (Walker, Cane, Wheelchair, Crutches, etc.)? No PATIENT GENDER DATA: Female. status: : No status: NO. PATIENT RELEVANT IMPLANT DATA REVIEWED: Not Applicable RADIOLOGY DEPARTMENT: General X-ray: Exam(s) Completed: Lower Extremity X-Ray(s): Knee, AP / Lat / Tunne / Merchant Bilateral and Wt. Bearing Upper Extremity X-Ray(s): Shoulder, AP / TRUE AP / AXILLARY right PERIPHERAL IV DATA: Not applicable SIGNED BY: Octavio Dale October 24, 2022 2:45 PM [facility] 10-24-2022 History of Present illness Narrative Associated Order(s): Large Joint Arthro/Inj: R knee joint Images from the original note were not included. SERVICE DATE: October 24, 2022 PCP: Сергей Espinoza MD Patient was self-referred. Large Joint Arthro/Inj: R knee joint Informed Consent Consent Obtained: Verbal [place] Protocol A moment to CARE was completed. SIGN IN Special Equipment: N/A Patient/Surrogate Stated/Verified: Patient name, Date of , Relevant allergies and Intended procedure TIME OUT Intended patient and procedure match the source document(s). Consent documented and matches the intended procedure. Relevant labs, photos, and/or imaging studies have been reviewed. Correct side/site marked and visible. Medications required for procedure verified. No fire risk assessment and interventions applicable. No implant(s) inserted. 10/24/2022 4:22 PM The procedure site was prepped in the usual sterile fashion. Site: R knee joint Medications: 12 mg betamethasone acetate-betamethasone sodium phosphate 6 mg/mL Anesthetics: 3 mL lidocaine (PF) 10 mg/mL (1 %) Outcome: Tolerated well, no immediate complications Post-injection instructions were reviewed with the patient and the patient voiced understanding of these instructions. SIGN OUT No instruments, equipment or retained foreign bodies applicable. Al Woods PA-C Subjective Patient ID: Merna Webster is a 82 year old female. Chief Complaint: Patient presents with: Right Shoulder - Pain, New Left Knee - New, Knee Pain Right Knee - New, Knee Pain PAIN EVALUATION 10/24/2022 1289 Pain Level: -- 6-8/10-Bilat Knee, right shoulder 10/10 Pain Location: -- bilat Knee, Right shoulder Description: Aching;Sharp Duration Amount of Time: -- ongoing Frequency: Intermittent Intervention/Comfort measure: Relaxation;Reposition;Medication;C old gabapentin, voltaren gel Merna comes today c/o right shoulder, hip and knee pain. Shoulder pain is rated at 10/10 and she has limited motion. This is her dominant hand. The hip has severe OA and she has been told she needs a hi replacement but medically, with pulmonary fibrosis she is not a surgical candidate. The right knee is also painful primarily medial aspect with activity. Merna wears bilateral knee sleeve which she says gives minimal help. Overall activity at this time is limited to walker ambulation and very little ambulation outside of the home. TREATMENTS PRIOR TO INITIAL CONSULT: Oral NSAIDS - Patient Unable to Tolerate Right Bracing: knee sleeve Left Bracing: knee sleeve Review of Systems Respiratory: Positive for shortness of breath. All other systems reviewed and are negative. ACTIVE PROBLEM LIST Pure Hypercholesterolemia Recurrent Major Depressive Disorder, in Full Remission (Hcc) Asthma Essential Hypertension Other Psoriasis Primary Osteoarthritis of Hip Plantar Fascial Fibromatosis Osteoporosis Diverticulosis of Colon (Without Mention of Hemorrhage) Degeneration of Lumbar Or Lumbosacral Intervertebral Disc Cervicalgia Obstructive Sleep Apnea Esophageal Reflux Hypothyroidism Frequent Headaches Anxiety Idiopathic Pulmonary Fibrosis (Hcc) Primary Insomnia Chronic Respiratory Failure With Hypoxia (Hcc) PAST MEDICAL HISTORY Diagnosis Date Apnea cpap Asthma Asthma Bowel disease Degeneration of lumbar or lumbosacral intervertebral disc significant Diverticulosis of colon (without mention of hemorrhage) Dysthymic disorder Depression (non-psychotic) Esophageal reflux Gastroesophageal reflux Hypothyroidism 05/22/2016 Migraine Obstructive sleep apnea osteoporosis T11 mild compression. Other and unspecified hyperlipidemia needs med Snoring Thyroid disorder Unspecified essential hypertension Essential hypertension PAST SURGICAL HISTORY Procedure Laterality Date COLONOSCOPY 2006 rpt 2011. had diverticulum. TONSILLECTOMY & ADENOIDECTOMY <AGE 13 Tonsil/adenoidectomy TOTAL ABDOMINAL HYSTERECT W/WO RMVL TUBE OVARY 1993 Hysterectomy, RAPHAEL - menorrhagia & fibroids FAMILY HISTORY Problem Relation Age of Onset other (Kidney stones) Father Diabetes Brother Colon Cancer Brother Hypertension Brother COPD Sister Social History Tobacco Use Smoking status: Never Smokeless tobacco: Never Substance Use Topics Alcohol use: No Drug use: No ALLERGIES Allergen Reactions Rofecoxib Itching heart palpitations,red blotching on face Aspirin heart palpitations Doxycycline GI Upset Ibuprofen face swells Lisinopril GI Upset Acid reflux Seasonal Allergies Other: See Comments Singulair [[place]* Rash Sulfa (Sulfonamide * rash MEDICATIONS: ALPRAZolam (XANAX) 1 mg tablet^Take 1 tablet by mouth three times daily as needed for sedation or anxiety for up to 30 days.^Disp: 90 tablet^Rfl: 0 cloNIDine HCl (CATAPRES) 0.1 mg tablet^Take 1 tablet by mouth twice daily.^Disp: 180 tablet^Rfl: 1 pirfenidone (ESBRIET) 801 mg tablet^TAKE 1 TABLET BY MOUTH 3 TIMES A DAY^Disp: 90 tablet^Rfl: 5 gabapentin (NEURONTIN) 100 mg capsule^Take 2 capsules by mouth three times daily for 180 days.^Disp: 180 capsule^Rfl: 5 fluticasone (FLOVENT HFA) 110 mcg/actuation inhaler^Inhale 1 Puff as instructed twice daily. Shake well before use. Rinse mouth after use.^Disp: 3 Each^Rfl: 1 levalbuterol tartrate HFA 45 mcg/actuation inhaler^INHALE 1-2 PUFFS INSTRUCTED EVERY 4 HOURS NEEDED FOR WHEEZING/SHORTNESS OF BREATH.^Disp: 45 g^Rfl: 3 esomeprazole (NEXIUM) 40 mg capsule^Take 1 capsule by mouth twice daily before meals.^Disp: 180 capsule^Rfl: 1 levothyroxine (SYNTHROID) 25 mcg tablet^Take 1 tablet by mouth once daily.^Disp: 90 tablet^Rfl: 4 nortriptyline (PAMELOR) 75 mg capsule^TAKE 1 CAPSULE AT BEDTIME^Disp: 90 capsule^Rfl: 3 SUMAtriptan (IMITREX) 100 mg tablet^Take 1 tablet by mouth as needed for migraine headache (see administration instructions). at onset of headache.May repeat after 2 hours.^Disp: 9 tablet^Rfl: 1 verapamil SR (CALAN SR) 240 mg CR tablet^Take 1 tablet by mouth daily at bedtime.^Disp: 90 tablet^Rfl: 2 betamethasone valerate 0.1 % cream^Apply 1 application to affected area twice daily.^Disp: 45 g^Rfl: 1 pravastatin (PRAVACHOL) 40 mg tablet^Take 1 tablet by mouth daily at bedtime.^Disp: 90 tablet^Rfl: 4 triamcinolone acetonide (KENALOG) 0.5 % cream^Apply to affected area three times daily.^Disp: 15 g^Rfl: 1 VENTOLIN HFA 90 mcg/actuation inhaler^Inhale 2 Puffs as instructed every 4 hours as needed.^Disp: 18 g^Rfl: 11 fexofenadine (MARIA C) 180 mg tablet^Take 180 mg by mouth once daily.^Disp: ^Rfl: promethazine (PHENERGAN) 12.5 mg tablet^Take 1 tablet by mouth every 6 hours as needed (Headache).^Disp: 10 tablet^Rfl: 0 CPAP^Dispense CPAP 6 cmH2O, mask, tubing, filters, heated humidity, lifetime supplies. Dx: JENNY^Disp: 1 Device^Rfl: 0 OXYGEN, HOME THERAPY,^Please dispense an oxygen concentrator, a portable oxygen concentrator and all necessary accessories to be used at 2L/min NC with exertion and with sleep.^Disp: 1 Each^Rfl: 99 COMPOUNDED PRESCRIPTION^Please dispense an oxygen concentrator and a portable oxygen concentrator and all necessary accessories to be used at 2L/min NC with exertion.^Disp: 1 Each^Rfl: 0 acetaminophen/caffeine (EXCEDRIN ASPIRIN FREE ORAL)^Take 2 tablets by mouth as needed.^Disp: ^Rfl: Inhalational Spacing Device (AEROCHAMBER) Spcr^1 Device as directed.^Disp: 1 Inhaler^Rfl: 0 albuterol (PROVENTIL) 2.5 mg /3 mL (0.083 %) nebulizer solution^Use 3 mL via nebulizer every 4 hours as needed for wheezing/shortness of breath. Use via nebulizer three times daily as needed. OVER 5-15 MINUTES. FOR WHEEZING AND SHORTNESS OF BREATH.^Disp: 360 mL^Rfl: 3 Allergies, medications, past surgical history, family history and past medical history were reviewed per this encounter. Objective Right Knee Exam Tenderness The patient is experiencing tenderness in the medial joint line. Range of Motion Extension: 0 Flexion: 120 Tests Varus: positive Valgus: positive Other Erythema: absent Sensation: normal Pulse: present Swelling: mild Effusion: effusion present Left Knee Exam Range of Motion Extension: 0 Tests Reinaldo: Left knee medial Reinaldo test: 120. Other Erythema: absent Sensation: normal Pulse: present Swelling: mild Effusion: effusion present Right Hip Exam Tenderness The patient is experiencing tenderness in the greater trochanter and anterior. Range of Motion Abduction: 15 Adduction: 0 Flexion: 80 External rotation: 20 Internal rotation: 0 Muscle Strength Abduction: 4/5 Adduction: 4/5 Flexion: 4/5 Other Erythema: absent Pulse: present Right Shoulder Exam Tenderness The patient is experiencing tenderness in the acromioclavicular joint, acromion and biceps tendon. Range of Motion Active abduction: 60 External rotation: 30 Forward flexion: 60 Internal rotation 0 degrees: Sacrum Muscle Strength Abduction: 4/5 Internal rotation: 4/5 External rotation: 4/5 Tests Apprehension: positive Cross arm: positive Impingement: positive Drop arm: positive Other Erythema: absent Sensation: normal Pulse: present Assessment/Plan ASSESSMENT Diagnosis (M19.011) Primary osteoarthritis of right shoulder (primary encounter diagnosis) (M16.11) Primary osteoarthritis of right hip (M17.11) Primary osteoarthritis of right knee (Z96.652) Status post total left knee replacement X-rays taken today AP pelvis shows right hip with severe OA, collapse of femoral head. The right shoulder 3 views show degenerative changes of Glenohumeral joint. 4 views of bilateral knees show moderate medial wear of the right knee and moderate lateral degenerative changes of the left knee. No orders found for this visit on 10/24/22. PLAN Merna understands she is not a surgical candidate and there is little to offer for the right hip pain, she will continue to use the walker. The right knee is the most painful knee and she would like to try a cortisone injection. She understands the knee pain may also be in part because of the hip. She will let us know how the injection helps. I will see her back next week and if she tolerates the knee injection we will consider a right shoulder injection and possible left knee injection in the future. FOLLOW-UP: No follow-ups on file. 6 days SIGNATURE: Al Woods PA-C PATIENT NAME: Merna Webster DATE: October 24, 2022 TIME: 3:57 PM documented in this encounter [facility] 10-24-2022 History of Present illness Narrative Radiology Service Progress Note PATIENT NAME: Merna Webster DATE OF SERVICE: October 24, 2022 TIME: 2:45 PM PATIENT IDENTITY VERIFICATION COMPLETED USING TWO (2) IDENTIFIERS: Name and Date of confirmed by patient verbally. FALL SCREENING: Has the patient had 2 falls in the last year or 1 fall with injury or currently using an Ambulatory Assistive Device (Walker, Cane, Wheelchair, Crutches, etc.)? No PATIENT GENDER DATA: Female. status: : No status: NO. PATIENT RELEVANT IMPLANT DATA REVIEWED: Not Applicable RADIOLOGY DEPARTMENT: General X-ray: Exam(s) Completed: Lower Extremity X-Ray(s): Knee, AP / Lat / Tunne / Merchant Bilateral and Wt. Bearing Upper Extremity X-Ray(s): Shoulder, AP / TRUE AP / AXILLARY right PERIPHERAL IV DATA: Not applicable SIGNED BY: Octavio Dale October 24, 2022 2:45 PM documented in this encounter [facility] 10-23-2022 Miscellaneous Notes See triage documented in this encounter [facility] 10-23-2022 Miscellaneous Notes Called to triage/discuss, no answer, left [facility] message: l am having a problem with sleeping too much sometimes 14 hours a day and l feel tired all the time what should I do l don t have much energy either l don t have energy to even go be with [place] what should l do have headaches too Reason for Disposition Message left on unidentified voice mail. Phone number verified. Protocols used: No Contact or Duplicate Contact [id number] documented in this encounter [facility] 10-21-2022 Miscellaneous Notes Last appointment: 09/29/22 Next appointment: 01/19/23 Pharmacy verified in [facility]. Refill(s) requested: Requested Prescriptions Pending Prescriptions Disp Refills ALPRAZolam (XANAX) 1 mg tablet 90 tablet 0 Sig: Take 1 tablet by mouth three times daily as needed for sedation or anxiety for up to 30 days. Order(s) pended. Please advise. Cha TAYLOR October 21, 2022 3:28 PM documented in this encounter [facility] 10-07-2022 History of Present illness Narrative POPULATION HEALTH NAVIGATION OUTREACH Action/FYI 2nd call, left vm Patient Identified by Name and : NO Outreach Outcome/Action Unable to reach patient: Left message MyChart message sent Did you use a PCP flex slot to schedule this appointment? No Reason for Outreach Care Gap or Scheduling/Wellness visits Payer: Payor: [employer] MEDICARE / Plan: [employer] PLUS / Product Type: HMO / Care Gap Reviewed:: Specialty Scheduling Reminder: Reminder note to check Health Maintenance for items below Health Maintenance items due: COVID-19 VACCINE(5 - Pfizer series) due on 04/15/2022 Navigation Signature: Joanne Iyer October 07, 2022 3:04 PM documented in this encounter [facility] 10-01-2022 History of Present illness Narrative POPULATION HEALTH NAVIGATION OUTREACH Action/FYI Left vm Patient Identified by Name and : NO Outreach Outcome/Action Unable to reach patient: Left message MyChart message sent Did you use a PCP flex slot to schedule this appointment? No Reason for Outreach Care Gap or Scheduling/Wellness visits Payer: Payor: [employer] MEDICARE / Plan: [employer] GOLD PLUS / Product Type: HMO / Care Gap Reviewed:: Specialty Scheduling Reminder: Reminder note to check Health Maintenance for items below Health Maintenance items due: COVID-19 VACCINE(5 - Pfizer series) due on 04/15/2022 Navigation Signature: Joanne Iyer October 01, 2022 9:47 AM documented in this encounter [facility] 09-26-2022 Miscellaneous Notes Last OV 05/05/2022 F/U 10/27/2022 Patient's pharmacy requesting refills as follows: Requested Prescriptions Pending Prescriptions Disp Refills pirfenidone (ESBRIET) 801 mg tablet [Pharmacy Med Name: PIRFENIDONE 801MG Tablet] 90 tablet 5 Sig: TAKE 1 TABLET BY MOUTH 3 TIMES A DAY Please review and advise. Namrata Barber MA documented in this encounter [facility] 09-12-2022 Miscellaneous Notes Please review and advise documented in this encounter [facility] 09-09-2022 Miscellaneous Notes Spoke to pharmacist, aware - will process medications. Ok to fill both. Сергей Espinoza MD Pharmacy calling in to let Dr. Espinoza know that there is drug interaction between the 2 medications please advise Pharmacy. verapamil SR (CALAN SR) 240 mg CR tablet 90 tablet 2 06/12/2022 03/09/2023 Sig: Take 1 tablet by mouth daily at bedtime. cloNIDine HCl (CATAPRES) 0.1 mg tablet 60 tablet 1 08/22/2022 Sig: Take 1 tablet by mouth twice daily Contact Lillie Mena documented in this encounter [facility] 09-07-2022 Miscellaneous Notes Please change patient's appointment with me on 10/[address] Espinoza. If he doesn't have any openings, ok to use a virtual slot on a afternoon for OV. Thanks, Brinda Dominguez APRN.[employer] documented in this encounter [facility] 09-05-2022 History of Present illness Narrative ESTABLISHED PATIENT Merna Webster is a 82 year old female presenting for Follow Up (XRay). HISTORY OF PRESENT ILLNESS Hypertension Follow up Medication Adherence: no missed doses and took medications this morning. She has not started on clonidone that PCP ordered last week, she was told not to start until she completed ATB for sinus infection. She finished ATB yesterday. Sinus symptoms improved. Clonidine added last visit Home monitoring: >140/80 Heart palpitations: no Chest pain: no Last 3 Encounter BP Readings: Date: BP: 09/05/2022 146/86 08/22/2022 142/76 07/22/2022 118/70 Patient has a rib fracture as noted on Xray done 2 days ago, patient denies pain. Chronic SOB, denies worsening. HISTORIES FAMILY HISTORY Problem Relation Age of Onset other (Kidney stones) Father Diabetes Brother Colon Cancer Brother Hypertension Brother COPD Sister PAST MEDICAL HISTORY Diagnosis Date Apnea cpap Asthma Asthma Bowel disease Degeneration of lumbar or lumbosacral intervertebral disc significant Diverticulosis of colon (without mention of hemorrhage) Dysthymic disorder Depression (non-psychotic) Esophageal reflux Gastroesophageal reflux Hypothyroidism 05/22/2016 Migraine Obstructive sleep apnea osteoporosis T11 mild compression. Other and unspecified hyperlipidemia needs med Snoring Thyroid disorder Unspecified essential hypertension Essential hypertension PAST SURGICAL HISTORY Procedure Laterality Date COLONOSCOPY 2006 rpt 2011. had diverticulum. TONSILLECTOMY & ADENOIDECTOMY <AGE 13 Tonsil/adenoidectomy TOTAL ABDOMINAL HYSTERECT W/WO RMVL TUBE OVARY 1994 Hysterectomy, RAPHAEL - menorrhagia & fibroids Social History Tobacco Use Smoking status: Never Smokeless tobacco: Never Substance Use Topics Alcohol use: No Drug use: No Allergies: ALLERGIES Allergen Reactions Rofecoxib Itching heart palpitations,red blotching on face Aspirin heart palpitations Ibuprofen face swells Lisinopril GI Upset Acid reflux Seasonal Allergies Other: See Comments Singulair [Monteluk* Rash Sulfa (Sulfonamide * rash Medications: ALPRAZolam (XANAX) 1 mg tablet^Take 1 tablet by mouth three times daily as needed for sedation or anxiety for up to 30 days.^Disp: 90 tablet^Rfl: 0 predniSONE (DELTASONE) 10 mg tablet^Take PO 4 tablets x 5 days, then 3 tablets x 3 days, then 2 tablets x 3 days, 1 tablets x 3 days^Disp: 38 tablet^Rfl: 0 gabapentin (NEURONTIN) 100 mg capsule^Take 1 capsule by mouth three times daily for 30 days.^Disp: 90 capsule^Rfl: 0 doxycycline monohydrate (MONODOX) 100 mg capsule^Take 1 capsule by mouth twice daily.^Disp: 20 capsule^Rfl: 0 cloNIDine HCl (CATAPRES) 0.1 mg tablet^Take 1 tablet by mouth twice daily.^Disp: 60 tablet^Rfl: 1 levalbuterol tartrate HFA 45 mcg/actuation inhaler^INHALE 1-2 PUFFS INSTRUCTED EVERY 4 HOURS NEEDED FOR WHEEZING/SHORTNESS OF BREATH.^Disp: 45 g^Rfl: 3 esomeprazole (NEXIUM) 40 mg capsule^Take 1 capsule by mouth twice daily before meals.^Disp: 180 capsule^Rfl: 1 levothyroxine (SYNTHROID) 25 mcg tablet^Take 1 tablet by mouth once daily.^Disp: 90 tablet^Rfl: 4 nortriptyline (PAMELOR) 75 mg capsule^TAKE 1 CAPSULE AT BEDTIME^Disp: 90 capsule^Rfl: 3 SUMAtriptan (IMITREX) 100 mg tablet^Take 1 tablet by mouth as needed for migraine headache (see administration instructions). at onset of headache.May repeat after 2 hours.^Disp: 9 tablet^Rfl: 1 verapamil SR (CALAN SR) 240 mg CR tablet^Take 1 tablet by mouth daily at bedtime.^Disp: 90 tablet^Rfl: 2 betamethasone valerate 0.1 % cream^Apply 1 application to affected area twice daily.^Disp: 45 g^Rfl: 1 fluticasone (FLOVENT HFA) 110 mcg/actuation inhaler^Inhale 1 Puff as instructed twice daily. Shake well before use. Rinse mouth after use.^Disp: 3 Each^Rfl: 1 pravastatin (PRAVACHOL) 40 mg tablet^Take 1 tablet by mouth daily at bedtime.^Disp: 90 tablet^Rfl: 4 pirfenidone (ESBRIET) 801 mg tablet^Take 1 tablet by mouth three times daily.^Disp: 90 tablet^Rfl: 5 triamcinolone acetonide (KENALOG) 0.5 % cream^Apply to affected area three times daily.^Disp: 15 g^Rfl: 1 VENTOLIN HFA 90 mcg/actuation inhaler^Inhale 2 Puffs as instructed every 4 hours as needed.^Disp: 18 g^Rfl: 11 fexofenadine (MARIA C) 180 mg tablet^Take 180 mg by mouth once daily.^Disp: ^Rfl: albuterol (PROVENTIL) 2.5 mg /3 mL (0.083 %) nebulizer solution^Use 3 mL via nebulizer every 4 hours as needed for wheezing/shortness of breath. Use via nebulizer three times daily as needed. OVER 5-15 MINUTES. FOR WHEEZING AND SHORTNESS OF BREATH.^Disp: 360 mL^Rfl: 3 promethazine (PHENERGAN) 12.5 mg tablet^Take 1 tablet by mouth every 6 hours as needed (Headache).^Disp: 10 tablet^Rfl: 0 CPAP^Dispense CPAP 6 cmH2O, mask, tubing, filters, heated humidity, lifetime supplies. Dx: JENNY^Disp: 1 Device^Rfl: 0 OXYGEN, HOME THERAPY,^Please dispense an oxygen concentrator, a portable oxygen concentrator and all necessary accessories to be used at 2L/min NC with exertion and with sleep.^Disp: 1 Each^Rfl: 99 COMPOUNDED PRESCRIPTION^Please dispense an oxygen concentrator and a portable oxygen concentrator and all necessary accessories to be used at 2L/min NC with exertion.^Disp: 1 Each^Rfl: 0 acetaminophen/caffeine (EXCEDRIN ASPIRIN FREE ORAL)^Take 2 tablets by mouth as needed.^Disp: ^Rfl: Inhalational Spacing Device (AEROCHAMBER) Spcr^1 Device as directed.^Disp: 1 Inhaler^Rfl: 0 REVIEW OF SYSTEMS As noted in HPI. PHYSICAL EXAM BP 146/86 Pulse 92 Temp 37.3 C (99.1 F) Resp 19 Ht 158.8 cm (5' 2.52") Wt 61.6 kg (135 lb 12.8 oz) SpO2 96% BMI 24.43 kg/m General Appearance: Well appearing, alert, in no acute distress, well-hydrated, well nourished.. Lungs: Lungs clear to auscultation. No wheezing, rhonchi, rales.. Heart: RRR without murmur, gallop, or rubs. No ectopy. ASSESSMENT/PLAN (I10) Essential hypertension (primary encounter diagnosis) (M16.0) Primary osteoarthritis of both hips (M50.30) DDD (degenerative disc disease), cervical (S22.32XD) Closed fracture of one rib of left side with routine healing, subsequent encounter - BP not controlled, start clonidine as previously prescribed by PCP, r/b/u/se discussed - Monitor BP at home and bring readings to next visit - Continue gabapentin; pain managed with this - Follow up 2 weeks; prn for new or worsening symptoms Brinda Dominguez APRN.[employer] There are no preventive care reminders to display for this patient. documented in this encounter [facility] 09-03-2022 History of Present illness Narrative Radiology Service Progress Note PATIENT NAME: Merna Webster DATE OF SERVICE: September 03, 2022 TIME: 3:55 PM PATIENT IDENTITY VERIFICATION COMPLETED USING TWO (2) IDENTIFIERS: Name and Date of confirmed by patient verbally. FALL SCREENING: Has the patient had 2 falls in the last year or 1 fall with injury or currently using an Ambulatory Assistive Device (Walker, Cane, Wheelchair, Crutches, etc.)? Yes, Patient High Risk for Falls What interventions were put in place to prevent falls during this visit? Instructed Patient to Call for Help if Needed, Offered Assistance with Transfers/Clothing, and Increased Observations by Caregivers PATIENT GENDER DATA: Female. status: : No status: NO. PATIENT RELEVANT IMPLANT DATA REVIEWED: Yes RADIOLOGY DEPARTMENT: General X-ray: Exam(s) Completed: Rib X-Ray: Left Spine X-Ray(s): Cervical AP / LAT / OBL Pelvis X-Ray: Pelvis with Hip Bilateral PERIPHERAL IV DATA: Not applicable SIGNED BY: RT Cristy(R) September 03, 2022 3:55 PM documented in this encounter [facility] 08-25-2022 Miscellaneous Notes PDMP website checked and validated. All prescriptions have been APPROPRIATELY filled. No suspicious activity was identified. 08/25/2022 by Brinda Dominguez APRN.[employer] Pharmacy verified in [employer]. Patient has been identified by name and date of : Yes Patient aware RX will be sent to pharmacy. No need to notify patient. Patient phones for refill(s): Requested Prescriptions Pending Prescriptions Disp Refills ALPRAZolam (XANAX) 1 mg tablet 90 tablet 0 Sig: Take 1 tablet by mouth three times daily as needed for sedation or anxiety for up to 30 days. Date of last office visit : 08/22/2022 Date of next office visit : 09/05/2022 Last 2 Encounter Wt Readings: Date: Wt: 08/22/2022 60.8 kg (134 lb) 07/22/2022 62.1 kg (137 lb) Not applicable Please advise. Navya Burr MA documented in this encounter [facility] 08-22-2022 History of Present illness Narrative ESTABLISHED PATIENT Merna Webster is a 82 year old female presenting for Follow Up. HISTORY OF PRESENT ILLNESS Patient has recently moved. Also moved into nursing facility. Fell 2 weeks ago. Still having some pain to the area. Tylenol worse eventually. Has been having headaches every night. Someitmes goes into face. Tried caffeine, ice, heat, tea. Nothing has helped. Did vomit once with the headaches. Had shingles on her face several months ago. Chronic Benzodiazapine Use Used for: Anxiety Medication: Xanax Improves quality of life: Yes Amount used per day: three Sleeping about 12 hours at night. More tired. Recent Labs: WBC 6.92 10/28/2021 Hemoglobin 11.8 10/28/2021 Hematocrit 37.0 10/28/2021 Platelet Count 241 10/28/2021 Sodium 143 10/28/2021 Potassium 3.8 10/28/2021 Creatinine 0.70 10/28/2021 BUN 11 10/28/2021 eGFR, >60 02/18/2012 eGFR-All Other Races 88 10/28/2021 Glucose 115 10/28/2021 Calcium 9.4 10/28/2021 Hemoglobin A1C 6.1 09/17/2020 LDL Cholesterol 77 05/30/2021 HDL Cholesterol 61 05/30/2021 Cholesterol, Total 166 05/30/2021 Triglyceride 141 05/30/2021 AST 15 10/28/2021 ALT 10 10/28/2021 Alkaline Phosphatase 103 10/28/2021 TSH 2.450 05/08/2022 CrCl cannot be calculated (Patient's most recent lab result is older than the maximum 180 days allowed.). ASSESSMENT: (R53.83) Other fatigue (primary encounter diagnosis) (M54.2) Neck pain (R51.9, G89.29) Chronic nonintractable headache, unspecified headache type (R07.81) Rib pain on left side PLAN: Check labs Neck pain maybe cause of headache. Prednisone. May also have sinus infection. Add doxycyline. Add clonidine to help with BP. Maybe help with headache and anxiety. Xray ribs. Fell on them recently. HISTORIES FAMILY HISTORY Problem Relation Age of Onset other (Kidney stones) Father Diabetes Brother Colon Cancer Brother Hypertension Brother COPD Sister PAST MEDICAL HISTORY Diagnosis Date Apnea cpap Asthma Asthma Bowel disease Degeneration of lumbar or lumbosacral intervertebral disc significant Diverticulosis of colon (without mention of hemorrhage) Dysthymic disorder Depression (non-psychotic) Esophageal reflux Gastroesophageal reflux Hypothyroidism 05/22/2016 Migraine Obstructive sleep apnea osteoporosis T11 mild compression. Other and unspecified hyperlipidemia needs med Snoring Thyroid disorder Unspecified essential hypertension Essential hypertension PAST SURGICAL HISTORY Procedure Laterality Date COLONOSCOPY 2006 rpt 2011. had diverticulum. TONSILLECTOMY & ADENOIDECTOMY <AGE 13 Tonsil/adenoidectomy TOTAL ABDOMINAL HYSTERECT W/WO RMVL TUBE OVARY 1993 Hysterectomy, RAPHAEL - menorrhagia & fibroids Social History Tobacco Use Smoking status: Never Smokeless tobacco: Never Substance Use Topics Alcohol use: No Drug use: No Allergies: ALLERGIES Allergen Reactions Rofecoxib Itching heart palpitations,red blotching on face Aspirin heart palpitations Ibuprofen face swells Lisinopril GI Upset Acid reflux Seasonal Allergies Other: See Comments Singulair [[place]el[place]* Rash Sulfa (Sulfonamide * rash Medications: levalbuterol tartrate HFA 45 mcg/actuation inhaler^INHALE 1-2 PUFFS INSTRUCTED EVERY 4 HOURS NEEDED FOR WHEEZING/SHORTNESS OF BREATH.^Disp: 45 g^Rfl: 3 esomeprazole (NEXIUM) 40 mg capsule^Take 1 capsule by mouth twice daily before meals.^Disp: 180 capsule^Rfl: 1 levothyroxine (SYNTHROID) 25 mcg tablet^Take 1 tablet by mouth once daily.^Disp: 90 tablet^Rfl: 4 ALPRAZolam (XANAX) 1 mg tablet^Take 1 tablet by mouth three times daily as needed for sedation or anxiety for up to 30 days.^Disp: 90 tablet^Rfl: 0 nortriptyline (PAMELOR) 75 mg capsule^TAKE 1 CAPSULE AT BEDTIME^Disp: 90 capsule^Rfl: 3 SUMAtriptan (IMITREX) 100 mg tablet^Take 1 tablet by mouth as needed for migraine headache (see administration instructions). at onset of headache.May repeat after 2 hours.^Disp: 9 tablet^Rfl: 1 verapamil SR (CALAN SR) 240 mg CR tablet^Take 1 tablet by mouth daily at bedtime.^Disp: 90 tablet^Rfl: 2 betamethasone valerate 0.1 % cream^Apply 1 application to affected area twice daily.^Disp: 45 g^Rfl: 1 fluticasone (FLOVENT HFA) 110 mcg/actuation inhaler^Inhale 1 Puff as instructed twice daily. Shake well before use. Rinse mouth after use.^Disp: 3 Each^Rfl: 1 pravastatin (PRAVACHOL) 40 mg tablet^Take 1 tablet by mouth daily at bedtime.^Disp: 90 tablet^Rfl: 4 gabapentin (NEURONTIN) 100 mg capsule^Take 1 capsule by mouth three times daily for 30 days.^Disp: 90 capsule^Rfl: 0 pirfenidone (ESBRIET) 801 mg tablet^Take 1 tablet by mouth three times daily.^Disp: 90 tablet^Rfl: 5 triamcinolone acetonide (KENALOG) 0.5 % cream^Apply to affected area three times daily.^Disp: 15 g^Rfl: 1 fexofenadine (MARIA C) 180 mg tablet^Take 180 mg by mouth once daily.^Disp: ^Rfl: albuterol (PROVENTIL) 2.5 mg /3 mL (0.083 %) nebulizer solution^Use 3 mL via nebulizer every 4 hours as needed for wheezing/shortness of breath. Use via nebulizer three times daily as needed. OVER 5-15 MINUTES. FOR WHEEZING AND SHORTNESS OF BREATH.^Disp: 360 mL^Rfl: 3 promethazine (PHENERGAN) 12.5 mg tablet^Take 1 tablet by mouth every 6 hours as needed (Headache).^Disp: 10 tablet^Rfl: 0 CPAP^Dispense CPAP 6 cmH2O, mask, tubing, filters, heated humidity, lifetime supplies. Dx: JENNY^Disp: 1 Device^Rfl: 0 OXYGEN, HOME THERAPY,^Please dispense an oxygen concentrator, a portable oxygen concentrator and all necessary accessories to be used at 2L/min NC with exertion and with sleep.^Disp: 1 Each^Rfl: 99 COMPOUNDED PRESCRIPTION^Please dispense an oxygen concentrator and a portable oxygen concentrator and all necessary accessories to be used at 2L/min NC with exertion.^Disp: 1 Each^Rfl: 0 acetaminophen/caffeine (EXCEDRIN ASPIRIN FREE ORAL)^Take 2 tablets by mouth as needed.^Disp: ^Rfl: Inhalational Spacing Device (AEROCHAMBER) Spcr^1 Device as directed.^Disp: 1 Inhaler^Rfl: 0 VENTOLIN HFA 90 mcg/actuation inhaler^Inhale 2 Puffs as instructed every 4 hours as needed.^Disp: 18 g^Rfl: 11 REVIEW OF SYSTEMS GENERAL: No weight loss, malaise or fevers PHYSICAL EXAM BP 142/76 Pulse 88 Temp 36.6 C (97.8 F) Resp 16 Ht 158.8 cm (5' 2.5") Wt 60.8 kg (134 lb) SpO2 94% BMI 24.12 kg/m General: Well developed, well nourished, in no acute distress. Head: Normocephalic, atraumatic. Neck: Supple. Eyes: Normal conjunctiva, no scleral icterus. Lungs: Clear to auscultation bilaterally, no rubs, no wheezing. Cardiac: Regular rate and rhythm. No murmurs, gallops, or rubs. Chest: left wall lateral ttp Extremities: No edema. Сергей Espinoza MD There are no preventive care reminders to display for this patient. documented in this encounter [facility] 08-22-2022 Instructions Сергей Espinoza MD - 08/22/2022 4:33 PM EDT Start with gabapentin (for nerve pain), prednisone (for sinus congestion and neck pain), and doxycycline (for sinus congestion). If you don't start feeling better or your blood pressure remains high start clondinine. [facility] BUILDING LAB TEST INFORMATION [facility] BUILDING LAB HOURS: Lab is open: 7:30am to 5:00pm - , 7:30am to 4:00pm on Thu and 8am -12pm on Thu. The lab is located in [facility] on the first floor. There is a registration window at the lab, available 7 am to 3 pm Thursday - Thursday. If registration is unavailable at the lab, you may register at the patient registration office near the front lobby of the hospital. SCHEDULING A LAB APPOINTMENT: Laboratory appointments are recommended.Walk ins are still accepted. Call [phone] or schedule via [employer] scheduling ticket. ROUTINE LAB ORDERS 60 days after they are entered. If your lab orders , you may be required to wait in the lab while they are reinstated FUTURE ORDERS are lab tests to be completed on the EXPECTED date. These orders 60 days after the expected date. STANDING ORDERS are recurring orders with an expiration date. The interval will indicate how often the test should be completed. CT / MRI / IVP If you have lab tests ordered for one of these radiology exams, please complete the blood work at least one day prior to the scheduled exam. PRESCRIPTION REFILL REQUESTS Request prescription refills through your [employer] account or contact your Pharmacy. My Chart Schedule My Appointment enables you to view your established primary care provider's open schedule and book an appointment online in real-time. This feature is available in internal medicine, family medicine, or pediatrics at any of our [facility] locations and main campus. documented in this encounter [facility] 08-21-2022 Miscellaneous Notes See Triage note Please triage Anai Cohen LPN documented in this encounter [facility] 08-21-2022 Miscellaneous Notes Patient had a headache last pm that went from her shoulders, up her neck to the top of her head. Patient used Ice, that did not help, heat helped. Patient vomited x 1 last pm. Today has pain in cheeks, forehead, blew yellow nasally, coughed x 1 a large amount of green material today. Patient using her Inhalers which helps her feel better in general. Patient resting today. Headache is 3/10 now, last night was, "greater than 10/10" Denies fever, CP, respiratory issues, did take her CPAP off last night and just used to oxygen, slept pretty well. Will have an appt. With PCP tomorrow to review sx. Reason for Disposition [1] Caller requesting NON-URGENT health information AND [2] PCP's office is the best resource Answer Assessment - Initial Assessment Questions 1. REASON FOR CALL or QUESTION: Calling with an update on sx Protocols used: Information Only Call - No [id number] documented in this encounter [facility] 08-21-2022 Miscellaneous Notes [facility] called with the name of the new DME for the patient's CPAP supplies. It is [employer] Ph. #[phone] documented in this encounter [facility] 08-16-2022 Miscellaneous Notes Unable to reach patient, left the message on designated VM, to CB with concerns. I increased the nexium to twice daily. If not better to let me know. Thanks, Сергей Espinoza MD Meds reviewed, patient states she has been taking the Nexium for quite awhile, it has helped her but it seems since she has been going through a lot of life changes it is not working well. For the past 1.5 weeks, most days feels nauseated most of the day, not nauseated at this time, takes the Nexium in the morning. Denies vomiting but has felt like she might vomit. Eating, drinking sleep normally. Patient admits to having anxiety, does take Xanax 3 x a day for same. Patient asking if there is any changes she can make in her medication to help with this issue. Reason for Disposition Unexplained nausea Nausea is a chronic symptom (recurrent or ongoing AND present > 4 weeks) Answer Assessment - Initial Assessment Questions 1. NAUSEA SEVERITY: "How bad is the nausea?" (e.g., mild, moderate, severe; dehydration, weight loss) - MILD: loss of appetite without change in eating habits - MODERATE: decreased oral intake without significant weight loss, dehydration, or malnutrition - SEVERE: inadequate caloric or fluid intake, significant weight loss, symptoms of dehydration Mild 2. ONSET: "When did the nausea begin?" About 1.5 weeks ago 3. VOMITING: "Any vomiting?" If Yes, ask: "How many times today?" Denies but has felt like vomiting at times 4. RECURRENT SYMPTOM: "Have you had nausea before?" If Yes, ask: "When was the last time?" "What happened that time?" Feels the Nexium has controlled any sx except for the issues above over the past 1.5 weeks 5. CAUSE: "What do you think is causing the nausea?" Stress 6. : "Is there any chance you are ?" (e.g., unprotected intercourse, missed control pill, broken condom) N/A Protocols used: [id number] Unable to reach, asked her to CB From [employer] message Dr Espinoza can you help me with my upset stomach all the time l am taking the prescription stomach medication but it doesn t work anymore can you help me Merna webster One thing l am having a hard time with l am home sick real bad and no [place] or kids l don t want counciling this last eight months have been hard l know l need adjust but it s not that easy. Thank you Merna Webster Reason for Disposition Message left on identified voice mail Answer Assessment - Initial Assessment Questions Returning patient's call from [employer] message. Protocols used: No Contact or Duplicate Contact [id number] documented in this encounter [facility] 08-15-2022 Miscellaneous Notes See Triage message Please triage. It does not appear as though this has been addressed recently? More than likely patient would benefit from a visit to discuss. documented in this encounter [facility] 08-14-2022 Miscellaneous Notes Pharmacy verified in [facility] Patient has been identified by name and date of : Yes Patient aware RX will be sent to pharmacy. No need to notify patient. Patient phones for refill(s): Requested Prescriptions Pending Prescriptions Disp Refills levothyroxine (SYNTHROID) 25 mcg tablet 90 tablet 4 Sig: Take 1 tablet by mouth once daily. Patient wants sent to mail order Date of last office visit : 07/22/2022 Date of next office visit : 10/29/2022 Last 2 Encounter Wt Readings: Date: Wt: 07/22/2022 62.1 kg (137 lb) 05/21/2022 62.1 kg (137 lb) Thyroid: TSH Date Value 05/08/2022 2.450 mIU/L 09/17/2020 2.370 uU/mL Please advise. Maritza Jorgensen LPN documented in this encounter [facility] 07-11-2022 Miscellaneous Notes Last appointment: 05/21/22 Next appointment: 07/14/22 Pharmacy verified in [facility]. Refill(s) requested: Requested Prescriptions Pending Prescriptions Disp Refills nortriptyline (PAMELOR) 75 mg capsule [Pharmacy Med Name: NORTRIPTYLINE HCL 75 MG Capsule] 90 capsule 3 Sig: TAKE 1 CAPSULE AT BEDTIME Order(s) pended. Please advise. Destiny Asencio LPN documented in this encounter [facility] 07-09-2022 Note HNO ID: [id number] Author: RT Kindra(R) Service: Radiology Author Type: Asic Design Engineer Type: Progress Notes Filed: 07/09/2022 4:24 PM Note Text: Radiology Service Progress Note PATIENT NAME: Merna Webster DATE OF SERVICE: July 09, 2022 TIME: 4:24 PM PATIENT IDENTITY VERIFICATION COMPLETED USING TWO (2) IDENTIFIERS: Name and Date of confirmed by patient verbally and Name and Date of confirmed by identification band. FALL SCREENING: Has the patient had 2 falls in the last year or 1 fall with injury or currently using an Ambulatory Assistive Device (Walker, Cane, Wheelchair, Crutches, etc.)? No PATIENT GENDER DATA: Female. status: : No status: NO. PATIENT RELEVANT IMPLANT DATA REVIEWED: Not Applicable RADIOLOGY DEPARTMENT: CT; Exam(s) Completed: Chest PERIPHERAL IV DATA: Not applicable SIGNED BY: RT Kindra(R) July 09, 2022 4:24 PM [facility] 07-09-2022 History of Present illness Narrative Radiology Service Progress Note PATIENT NAME: Merna Webster DATE OF SERVICE: July 09, 2022 TIME: 4:24 PM PATIENT IDENTITY VERIFICATION COMPLETED USING TWO (2) IDENTIFIERS: Name and Date of confirmed by patient verbally and Name and Date of confirmed by identification band. FALL SCREENING: Has the patient had 2 falls in the last year or 1 fall with injury or currently using an Ambulatory Assistive Device (Walker, Cane, Wheelchair, Crutches, etc.)? No PATIENT GENDER DATA: Female. status: : No status: NO. PATIENT RELEVANT IMPLANT DATA REVIEWED: Not Applicable RADIOLOGY DEPARTMENT: CT; Exam(s) Completed: Chest PERIPHERAL IV DATA: Not applicable SIGNED BY: RT Kindra(Ebony) July 09, 2022 4:24 PM documented in this encounter [facility] 06-25-2022 Miscellaneous Notes PDMP website checked and validated. All prescriptions have been APPROPRIATELY filled. No suspicious activity was identified. 06/25/2022 by Brinda Dominguez APRN.[employer] Pharmacy verified in Epic Patient has been identified by name and date of : Yes Patient aware RX will be sent to pharmacy. No need to notify patient. Patient phones for refill(s): Requested Prescriptions Pending Prescriptions Disp Refills ALPRAZolam (XANAX) 1 mg tablet 90 tablet 0 Sig: Take 1 tablet by mouth three times daily as needed for sedation or anxiety for up to 30 days. Date of last office visit : 05/21/2022 Date of next office visit : 06/30/2022 Last 2 Encounter Wt Readings: Date: Wt: 05/21/2022 62.1 kg (137 lb) 05/05/2022 61.2 kg (134 lb 14.7 oz) Not applicable Please advise. Rajat Ramirez Ma documented in this encounter [facility] 06-25-2022 Miscellaneous Notes Left VM and MyChart message for patient to bring in the updated insurance information with her to her 06/30 appt. documented in this encounter [facility] 06-18-2022 Miscellaneous Notes Spoke to patient who was advised of provider's message and verbalized understanding. Advised to call back with new, worsening, or persistent symptoms. Meds reviewed. New script sent for imitrex. Please have patient follow up for persistent or worsening symptoms. Thanks, Brinda Dominguez APRN.[employer] Triaged patient. Migraine started two days ago. Typically takes Excedrin Tension, but states it is no longer being sold. Tried regular Excedrin- ineffective, same with Tylenol. Used to take sumatriptan for migraines- last script was 2019. Has two tabs left from 2019 script-asking if she can take them. States sumatriptan did work when she used to take it. Please advise if new script can be sent to pharmacy. [phone] Sabine Goyal RN Reason for Disposition [1] MILD-MODERATE headache AND [2] present > 72 hours Answer Assessment - Initial Assessment Questions 1. LOCATION: "Where does it hurt?" All over 2. ONSET: "When did the headache start?" (Minutes, hours or days) 2 days 3. PATTERN: "Does the pain come and go, or has it been constant since it started?" constant 4. SEVERITY: "How bad is the pain?" and "What does it keep you from doing?" (e.g., Scale 1-10; mild, moderate, or severe) - MILD (1-3): doesn't interfere with normal activities - MODERATE (4-7): interferes with normal activities or awakens from sleep - SEVERE (8-10): excruciating pain, unable to do any normal activities Severe 5. RECURRENT SYMPTOM: "Have you ever had headaches before?" If Yes, ask: "When was the last time?" and "What happened that time?" Yes 6. CAUSE: "What do you think is causing the headache?" Migraines 7. MIGRAINE: "Have you been diagnosed with migraine headaches?" If Yes, ask: "Is this headache similar?" Yes 8. HEAD INJURY: "Has there been any recent injury to the head?" No 9. OTHER SYMPTOMS: "Do you have any other symptoms?" (fever, stiff neck, eye pain, sore throat, cold symptoms) NO 10. : "Is there any chance you are ?" "When was your last menstrual period?" NO Protocols used: [id number] documented in this encounter [facility] 06-12-2022 Miscellaneous Notes Last appointment: 06/24/22 Next appointment: 05/21/22 Pharmacy verified in [facility]. Refill(s) requested: Requested Prescriptions Pending Prescriptions Disp Refills verapamil SR (CALAN SR) 240 mg CR tablet 90 tablet 2 Sig: Take 1 tablet by mouth daily at bedtime. Order(s) pended. Please advise. Lorene Mendieta MA, [facility] documented in this encounter [facility] 06-11-2022 Miscellaneous Notes Like we talked about in the office, she can increase the meloxicam to 15 mg (2 tablets) daily, assuming the medication is not giving her any stomach upset. Her other options would be to see one of our suergons to discuss hip replacemnt or to see pain management to discuss pain control. documented in this encounter [facility] 05-27-2022 Miscellaneous Notes PDMP website checked and validated. All prescriptions have been APPROPRIATELY filled. No suspicious activity was identified. 05/27/2022 by Brinda Dominguez APRN.[employer] Pharmacy verified in [facility] Patient has been identified by name and date of : Yes Patient aware RX will be sent to pharmacy. No need to notify patient. Patient phones for refill(s): Requested Prescriptions Pending Prescriptions Disp Refills ALPRAZolam (XANAX) 1 mg tablet 90 tablet 0 Sig: Take 1 tablet by mouth three times daily as needed for sedation or anxiety for up to 30 days. Date of last office visit : 05/21/2022 Date of next office visit : 06/24/2022 Last 2 Encounter Wt Readings: Date: Wt: 05/21/2022 62.1 kg (137 lb) 05/05/2022 61.2 kg (134 lb 14.7 oz) Not applicable Please advise. Jaclyn Rose MA documented in this encounter [facility] 05-22-2022 Note HNO ID: [id number] Author: ELFEGO Self Service: Radiology Author Type: Technologist Type: Progress Notes Filed: 05/22/2022 3:03 PM Note Text: Radiology Service Progress Note PATIENT NAME: Merna Webster DATE OF SERVICE: May 22, 2022 TIME: 3:03 PM PATIENT IDENTITY VERIFICATION COMPLETED USING TWO (2) IDENTIFIERS: Name and Date of confirmed by patient verbally. FALL SCREENING: Has the patient had 2 falls in the last year or 1 fall with injury or currently using an Ambulatory Assistive Device (Walker, Cane, Wheelchair, Crutches, etc.)? Yes, Patient High Risk for Falls What interventions were put in place to prevent falls during this visit? Offered Assistance with Transfers/Clothing and Increased Observations by Caregivers PATIENT GENDER DATA: Female. status: : No status: NO. PATIENT RELEVANT IMPLANT DATA REVIEWED: Not Applicable RADIOLOGY DEPARTMENT: General X-ray: Exam(s) Completed: Pelvis X-Ray: Pelvis with Hip Right and Wt. Bearing PERIPHERAL IV DATA: Not applicable SIGNED BY: ELFEGO Self May 22, 2022 3:03 PM [facility] 05-22-2022 History of Present illness Narrative PRIMARY CARE SOCIAL WORK PROGRESS NOTE Provider Action / FYI PCP Action No action needed at this time SERVICE DATE: May 22, 2022 SERVICE TIME: 2:25 PM (Patient has been identified by name and date of ) REASON FOR CONTACT: Financial Resources Mode of Outreach: Phone Call Progress Note: PCSW received order from PCP "Having financial issues, needs to move nursing homes, problems with affording home". PCSW reviewed Pt chart. PCSW had contact with Pt on 06/07/21. Pt is active on . PCSW introduced self to Pt and explained reason for call. Pt stated she was driving and placed this movie writer on speaker phone. Pt will call this movie writer 05/23 in the morning to further discuss. PCSW will remain available. INTERVENTION: Defers assessment at this time Time Spent:: 5 minutes SIGNATURE: JAIRON Cerrato PATIENT NAME: Merna Webster DATE: May 22, 2022 TIME: 2:30 PM CONTACT #: [phone] documented in this encounter [facility] 05-22-2022 History of Present illness Narrative Radiology Service Progress Note PATIENT NAME: Merna Webster DATE OF SERVICE: May 22, 2022 TIME: 3:03 PM PATIENT IDENTITY VERIFICATION COMPLETED USING TWO (2) IDENTIFIERS: Name and Date of confirmed by patient verbally. FALL SCREENING: Has the patient had 2 falls in the last year or 1 fall with injury or currently using an Ambulatory Assistive Device (Walker, Cane, Wheelchair, Crutches, etc.)? Yes, Patient High Risk for Falls What interventions were put in place to prevent falls during this visit? Offered Assistance with Transfers/Clothing and Increased Observations by Caregivers PATIENT GENDER DATA: Female. status: : No status: NO. PATIENT RELEVANT IMPLANT DATA REVIEWED: Not Applicable RADIOLOGY DEPARTMENT: General X-ray: Exam(s) Completed: Pelvis X-Ray: Pelvis with Hip Right and Wt. Bearing PERIPHERAL IV DATA: Not applicable SIGNED BY: ELFEGO Self May 22, 2022 3:03 PM documented in this encounter [facility] 05-21-2022 History of Present illness Narrative ESTABLISHED PATIENT Merna Webster is a 82 year old female presenting for F/U 6 months. HISTORY OF PRESENT ILLNESS Depression follow up: Mood: Stable Suicidal Thoughts: No Missed Doses: No Hypertension Follow up Medication Adherence: no missed doses and took medications this morning Home monitoring: yes Heart palpitations: no Chest pain: no Last 3 Encounter BP Readings: Date: BP: 05/21/2022 138/70 05/05/2022 168/72 03/31/2022 166/77 Has IPF. On oxygen. Sees pulm. Has financial problems. Problems with being in care home. Taking xanax as needed for anxiety ASSESSMENT: (J84.112) Idiopathic pulmonary fibrosis (HCC) (primary encounter diagnosis) (Z59.9) Financial difficulties (F33.42) Recurrent major depressive disorder, in full remission (HCC) (J96.11) Chronic respiratory failure with hypoxia (HCC) (I10) Essential hypertension PLAN: Follow up pulm. Conitnue oxygen Consult social work Depression is stable Continue oxygen BP stable. Contineu current meds Contineu xanax as needed HISTORIES FAMILY HISTORY Problem Relation Age of Onset other (Kidney stones) Father Diabetes Brother Colon Cancer Brother Hypertension Brother COPD Sister PAST MEDICAL HISTORY Diagnosis Date Apnea cpap Asthma Asthma Bowel disease Degeneration of lumbar or lumbosacral intervertebral disc significant Diverticulosis of colon (without mention of hemorrhage) Dysthymic disorder Depression (non-psychotic) Esophageal reflux Gastroesophageal reflux Hypothyroidism 05/22/2016 Migraine Obstructive sleep apnea osteoporosis T11 mild compression. Other and unspecified hyperlipidemia needs med Snoring Thyroid disorder Unspecified essential hypertension Essential hypertension PAST SURGICAL HISTORY Procedure Laterality Date COLONOSCOPY 2006 rpt 2011. had diverticulum. TONSILLECTOMY & ADENOIDECTOMY <AGE 13 Tonsil/adenoidectomy TOTAL ABDOMINAL HYSTERECT W/WO RMVL TUBE OVARY 1993 Hysterectomy, RAPHAEL - menorrhagia & fibroids Social History Tobacco Use Smoking status: Never Smokeless tobacco: Never Substance Use Topics Alcohol use: No Drug use: No Allergies: ALLERGIES Allergen Reactions Rofecoxib Itching heart palpitations,red blotching on face Aspirin heart palpitations Ibuprofen face swells Lisinopril GI Upset Acid reflux Seasonal Allergies Other: See Comments Singulair [Monteluk* Rash Sulfa (Sulfonamide * rash Medications: levalbuterol tartrate HFA (XOPENEX HFA) 45 mcg/actuation inhaler^Inhale 1-2 Puffs as instructed every 4 hours as needed for wheezing/shortness of breath.^Disp: 3 Each^Rfl: 1 fluticasone (FLOVENT HFA) 110 mcg/actuation inhaler^Inhale 1 Puff as instructed twice daily. Shake well before use. Rinse mouth after use.^Disp: 3 Each^Rfl: 1 esomeprazole (NEXIUM) 40 mg capsule^Take 1 capsule by mouth daily before breakfast.^Disp: 90 capsule^Rfl: 2 ALPRAZolam (XANAX) 1 mg tablet^Take 1 tablet by mouth three times daily as needed for sedation or anxiety for up to 30 days.^Disp: 90 tablet^Rfl: 0 pravastatin (PRAVACHOL) 40 mg tablet^Take 1 tablet by mouth daily at bedtime.^Disp: 90 tablet^Rfl: 4 gabapentin (NEURONTIN) 100 mg capsule^Take 1 capsule by mouth three times daily for 30 days.^Disp: 90 capsule^Rfl: 0 pirfenidone (ESBRIET) 801 mg tablet^Take 1 tablet by mouth three times daily.^Disp: 90 tablet^Rfl: 5 triamcinolone acetonide (KENALOG) 0.5 % cream^Apply to affected area three times daily.^Disp: 15 g^Rfl: 1 VENTOLIN HFA 90 mcg/actuation inhaler^Inhale 2 Puffs as instructed every 4 hours as needed.^Disp: 18 g^Rfl: 11 nortriptyline (PAMELOR) 75 mg capsule^Take 1 capsule by mouth daily at bedtime.^Disp: 90 capsule^Rfl: 3 verapamil SR (CALAN SR, ISOPTIN SR) 240 mg CR tablet^Take 1 tablet by mouth daily at bedtime.^Disp: 90 tablet^Rfl: 2 levothyroxine (SYNTHROID) 25 mcg tablet^Take 1 tablet by mouth once daily.^Disp: 90 tablet^Rfl: 4 fexofenadine (MARIA C) 180 mg tablet^Take 180 mg by mouth once daily.^Disp: ^Rfl: albuterol (PROVENTIL) 2.5 mg /3 mL (0.083 %) nebulizer solution^Use 3 mL via nebulizer every 4 hours as needed for wheezing/shortness of breath. Use via nebulizer three times daily as needed. OVER 5-15 MINUTES. FOR WHEEZING AND SHORTNESS OF BREATH.^Disp: 360 mL^Rfl: 3 SUMAtriptan (IMITREX) 100 mg tablet^Take 1 tablet by mouth as needed for Migraine Headache (see administration instructions). at onset of headache.May repeat after 2 hours.^Disp: 9 tablet^Rfl: 1 promethazine (PHENERGAN) 12.5 mg tablet^Take 1 tablet by mouth every 6 hours as needed (Headache).^Disp: 10 tablet^Rfl: 0 CPAP^Dispense CPAP 6 cmH2O, mask, tubing, filters, heated humidity, lifetime supplies. Dx: JENNY^Disp: 1 Device^Rfl: 0 OXYGEN, HOME THERAPY,^Please dispense an oxygen concentrator, a portable oxygen concentrator and all necessary accessories to be used at 2L/min NC with exertion and with sleep.^Disp: 1 Each^Rfl: 99 COMPOUNDED PRESCRIPTION^Please dispense an oxygen concentrator and a portable oxygen concentrator and all necessary accessories to be used at 2L/min NC with exertion.^Disp: 1 Each^Rfl: 0 acetaminophen/caffeine (EXCEDRIN ASPIRIN FREE ORAL)^Take 2 tablets by mouth as needed.^Disp: ^Rfl: Inhalational Spacing Device (AEROCHAMBER) Spcr^1 Device as directed.^Disp: 1 Inhaler^Rfl: 0 buPROPion XL (WELLBUTRIN XL) 150 mg 24 hr tablet^Take 1 tablet by mouth once daily.^Disp: 90 tablet^Rfl: 1 (Patient not taking: Reported on 03/31/2022) REVIEW OF SYSTEMS GENERAL: No weight loss, malaise or fevers. RESPIRATORY: Negative for cough, hemoptysis, wheezing or shortness of breath. CARDIOVASCULAR: Negative for chest pain, leg swelling or palpitations. All other systems reviewed and negative other than HPI. PHYSICAL EXAM BP 138/70 Pulse 99 Temp 36.8 C (98.2 F) Resp 16 Ht 158.8 cm (5' 2.5") Wt 62.1 kg (137 lb) SpO2 94% BMI 24.66 kg/m General: Well developed, well nourished, in no acute distress. Head: Normocephalic, atraumatic. Neck: Supple. Eyes: Normal conjunctiva, no scleral icterus. Lungs: Lower lung crackles Cardiac: Regular rate and rhythm. No murmurs, gallops, or rubs. Extremities: No edema. Сергей Espinoza MD ADVANCE DIRECTIVE DISCUSSION due on 03/02/2022 documented in this encounter [facility] 05-21-2022 Instructions Callie Taylor - 05/21/2022 1:06 PM EDT [facility] BUILDING LAB TEST INFORMATION [facility] BUILDING LAB HOURS: Lab is open: 7:30am to 5:00pm - , 7:30am to 4:00pm on Thu and 8am -12pm on Thu. The lab is located in [facility] on the first floor. There is a registration window at the lab, available 7 am to 3 pm Thursday - Thursday. If registration is unavailable at the lab, you may register at the patient registration office near the front lobby of the hospital. SCHEDULING A LAB APPOINTMENT: Laboratory appointments are recommended.Walk ins are still accepted. Call [phone] or schedule via [employer] scheduling ticket. ROUTINE LAB ORDERS 60 days after they are entered. If your lab orders , you may be required to wait in the lab while they are reinstated FUTURE ORDERS are lab tests to be completed on the EXPECTED date. These orders 60 days after the expected date. STANDING ORDERS are recurring orders with an expiration date. The interval will indicate how often the test should be completed. CT / MRI / IVP If you have lab tests ordered for one of these radiology exams, please complete the blood work at least one day prior to the scheduled exam. PRESCRIPTION REFILL REQUESTS Request prescription refills through your [employer] account or contact your Pharmacy. My Chart Schedule My Appointment enables you to view your established primary care provider's open schedule and book an appointment online in real-time. This feature is available in internal medicine, family medicine, or pediatrics at any of our [facility] locations and main campus. documented in this encounter [facility] 05-12-2022 Miscellaneous Notes Noted documented in this encounter [facility] 05-08-2022 Miscellaneous Notes PA completed on [employer] for Levalbuterol Tartrate 45MCG/ACT aerosol Approved PA Case: [id number], Status: Approved, Coverage Starts on: 03/02/2022 12:00:00 AM, Coverage Ends on: 03/01/2023 12:00:00 AM. Questions? Contact . documented in this encounter [facility] 05-05-2022 History of Present illness Narrative Images from the original note were not included. [facility]PART[facility]IC[facility] ESTABLISHED PATIENT OFFICE VISIT 05/05/2022 Patient Name: Merna Webster PRIMARY CARE PHYSICIAN: Сергей Espinoza MD CHIEF COMPLAINT: Patient presents with: Follow Up ASSESSMENT: (J84.112) Idiopathic pulmonary fibrosis (HCC) (primary encounter diagnosis) (J96.11) Chronic respiratory failure with hypoxia (HCC) (J45.30) Mild persistent asthma without complication (G47.33, Z99.89) JENNY on CPAP (R91.1) Lung nodule - patient presents today for follow up of IPF and asthma. She is doing fairly well from a respiratory standpoint. Her main issues have been related to recent shingles flare and stress related to the care of her . She is wearing 2L O2 with exertion and overnight. Oximetry with ambulation today again shows no O2 need at rest, 2 L with exertion. She notes continued desaturation when trying to perform certain activities at home without O2 (78% when making her bed). She is taking flovent 110mcg 2 puffs BID currently as the 220 dose ordered last visit was too expensive. She feels her symptoms are well controlled at this time, and is not using albuterol. She also notes, however, that albuterol usage makes her have palpations. Using an benefiting from CPAP nightly. CT chest 04/10/22 with Bilateral parenchymal abnormalities in a pattern compatible with usual interstitial pneumonitis, worsened compared to older studies dating back to 2019. Right upper lobe 8 mm nodule was not convincingly seen on the prior examinations. It is indeterminate. She is currently back on the generic Esbriet and tolerating it well. She had started it around the time of her shingles infection so was unsure if she was having an allergic reaction. PLAN: - continue flovent 110mcg 2 Puffs BID - continue esbriet 801 mg TID, tolerating well - continue CPAP HS, patient benefiting from this - start xopenex PRN in place of albuterol due to palpitations - needs CT scheduled for ~07/08, 3 month follow-up from last for nodule surveillance - needs echo rescheduled, unable to complete previously - needs repeat jose david, lung volumes, DLCO prior to f/u with Dr. Grier 10/27/22 - continue IS and acapella at home, patient reports benefit - continue flonase and maria c for allergies/rhinorrhea - encouraged regular consumption of ensure/boost shakes to help supplement diet, reports losing some weight due to stress and other factors related to care of Subjective HISTORY OF PRESENT ILLNESS: Merna Webster is a 82 year old female who presents today for follow-up. Past medical history is significant for IPF, asthma, JENNY on CPAP, chronic respiratory failure with hypoxia, headaches, HTN, HLD, esophageal reflux, hypothyroidism, psoriasis, osteoporosis, depression/anxiety. Never smoker. Most recent pulmonary office visit was on 03/31/22 with myself. Recommendations from that office visit were as follows: (J84.112) Idiopathic pulmonary fibrosis (HCC) (primary encounter diagnosis) (J96.11) Chronic respiratory failure with hypoxia (HCC) (J45.30) Mild persistent asthma without complication (G47.33, Z99.89) JENNY on CPAP - patient presents today for follow up of fibrosis and mild asthma. She reports episodes where she finds her SpO2 to be in the low 80's or high 70's but this is after activity and not wearing supplemental O2. She is supposed to wear 2L with exertion and PRN. Also has 2L bled into CPAP overnight. She feels better when wearing O2. She is currently taking her flovent 110 mcg as prescribed. Has not had any acute illness or changes in her respiratory status and has not required any steroids/abx for respiratory concerns. She needs repeat spirometry and oximetry with ambulation. FVC 50%, TLC 51% on spirometry 2020. Patient does report frequent headaches as well as ear-ringing and had elevated BP in office today. Encouraged to reach out to PCP for additional HTN treatment. PLAN: - follow up spirometry, lung volumes, DLCO, oximetry with ambulation - follow up CT chest in place to assess status of fibrosis - start flovent 220 mcg 2 puffs BID - continue albuterol PRN - continue esbriet 801 mg TID, tolerating well - continue 2L O2 PRN, with exertion, and overnight - continue CPAP HS, patient benefiting from this - continue flonase and maria c for allergies/rhinorrhea - encouraged regular consumption of ensure/boost shakes to help supplement diet, reports losing some weight due to stress and other factors related to care of INTERVAL HPI Since the last visit on 03/31, Ms. Webster reports: She had shingles in april had broken hip recently and is in SNF He is in an area with other covid patients and she was concerned about her exposure - though she is not having any symptoms Feels she is using her oxygen moreso than in the past Is wearing it most of the time Wears 2L Pox was 78% after making the bed on RA Is now back on the generic esbriet - takes it 9 3 and 9 Gets hoarse with cold air Is using the flovent 110 2 puffs BID Is using IS and acapella daily bringing up phlegm that is clear Cold drinks trigger her cough Doesn't use albuterol d/t palpations Has some anxiety that she sees PCP for Using allefra and flonase Very occasional diarrhea Has still been losing weight slowly - related to stress Drinks protein drink, pedialyte, and takes vitamins Patient denies fever, chills, night sweats, hemoptysis MMRC Dyspnea Scale: 0. Not troubled by breathlessness except on strenuous exercise Short of breath when hurrying or walking up a slight hill Walks slower than contemporaries on the level because of breathlessness, or has to stop for breath when walking at own pace Stops for breath after about 100 m or after a few minutes on the level Too breathless to leave the house, or breathless when dressing or undressing ECO05/05/2022 2- Ambulatory and capable of all selfcare; unable to carry out work activities. Up and about > 50% of waking hrs. REVIEW OF SYSTEMS Review of Systems Constitutional: Negative for chills, fatigue, fever and unexpected weight change. HENT: Positive for congestion and rhinorrhea. Negative for postnasal drip, sinus pressure, sinus pain and sore throat. Respiratory: Negative for cough, chest tightness, shortness of breath and wheezing. Cardiovascular: Negative for chest pain and leg swelling. Gastrointestinal: Negative for abdominal pain, blood in stool, constipation, diarrhea, nausea and vomiting. Genitourinary: Negative for difficulty urinating, hematuria and vaginal bleeding. Musculoskeletal: Negative for arthralgias, back pain and myalgias. Skin: Negative for rash. Neurological: Negative for dizziness, weakness, light-headedness and numbness. All other systems reviewed and are negative. Compliant with airway regimen of: pirfenidone 801 mg TID, flovent 220 2 puffs BID, albuterol neb PRN Objective PAST MEDICAL HISTORY Diagnosis Date Apnea cpap Asthma Asthma Bowel disease Degeneration of lumbar or lumbosacral intervertebral disc significant Diverticulosis of colon (without mention of hemorrhage) Dysthymic disorder Depression (non-psychotic) Esophageal reflux Gastroesophageal reflux Hypothyroidism 05/22/2016 Migraine Obstructive sleep apnea osteoporosis T11 mild compression. Other and unspecified hyperlipidemia needs med Snoring Thyroid disorder Unspecified essential hypertension Essential hypertension PAST SURGICAL HISTORY Procedure Laterality Date COLONOSCOPY 2006 rpt 2011. had diverticulum. TONSILLECTOMY & ADENOIDECTOMY <AGE 13 Tonsil/adenoidectomy TOTAL ABDOMINAL HYSTERECT W/WO RMVL TUBE OVARY 1993 Hysterectomy, RAPHAEL - menorrhagia & fibroids FAMILY HISTORY Problem Relation Age of Onset other (Kidney stones) Father Diabetes Brother Colon Cancer Brother Hypertension Brother COPD Sister Social History Tobacco Use Smoking status: Never Smokeless tobacco: Never Substance Use Topics Alcohol use: No Drug use: No ALLERGIES Allergen Reactions Rofecoxib Itching heart palpitations,red blotching on face Aspirin heart palpitations Ibuprofen face swells Lisinopril GI Upset Acid reflux Seasonal Allergies Other: See Comments Singulair [Monteluk* Rash Sulfa (Sulfonamide * rash CURRENT OUTPATIENT MEDICATIONS esomeprazole (NEXIUM) 40 mg capsule^Take 1 capsule by mouth daily before breakfast.^Disp: 90 capsule^Rfl: 2 ALPRAZolam (XANAX) 1 mg tablet^Take 1 tablet by mouth three times daily as needed for sedation or anxiety for up to 30 days.^Disp: 90 tablet^Rfl: 0 pravastatin (PRAVACHOL) 40 mg tablet^Take 1 tablet by mouth daily at bedtime.^Disp: 90 tablet^Rfl: 4 gabapentin (NEURONTIN) 100 mg capsule^Take 1 capsule by mouth three times daily for 30 days.^Disp: 90 capsule^Rfl: 0 pirfenidone (ESBRIET) 801 mg tablet^Take 1 tablet by mouth three times daily.^Disp: 90 tablet^Rfl: 5 triamcinolone acetonide (KENALOG) 0.5 % cream^Apply to affected area three times daily.^Disp: 15 g^Rfl: 1 fluticasone (FLOVENT HFA) 220 mcg/actuation inhaler^Inhale 1 Puff as instructed twice daily. Shake well before use. Rinse mouth after use.^Disp: 3 Each^Rfl: 4 buPROPion XL (WELLBUTRIN XL) 150 mg 24 hr tablet^Take 1 tablet by mouth once daily.^Disp: 90 tablet^Rfl: 1 (Patient not taking: Reported on 03/31/2022) VENTOLIN HFA 90 mcg/actuation inhaler^Inhale 2 Puffs as instructed every 4 hours as needed.^Disp: 18 g^Rfl: 11 nortriptyline (PAMELOR) 75 mg capsule^Take 1 capsule by mouth daily at bedtime.^Disp: 90 capsule^Rfl: 3 verapamil SR (CALAN SR, ISOPTIN SR) 240 mg CR tablet^Take 1 tablet by mouth daily at bedtime.^Disp: 90 tablet^Rfl: 2 levothyroxine (SYNTHROID) 25 mcg tablet^Take 1 tablet by mouth once daily.^Disp: 90 tablet^Rfl: 4 fexofenadine (MARIA C) 180 mg tablet^Take 180 mg by mouth once daily.^Disp: ^Rfl: albuterol (PROVENTIL) 2.5 mg /3 mL (0.083 %) nebulizer solution^Use 3 mL via nebulizer every 4 hours as needed for wheezing/shortness of breath. Use via nebulizer three times daily as needed. OVER 5-15 MINUTES. FOR WHEEZING AND SHORTNESS OF BREATH.^Disp: 360 mL^Rfl: 3 SUMAtriptan (IMITREX) 100 mg tablet^Take 1 tablet by mouth as needed for Migraine Headache (see administration instructions). at onset of headache.May repeat after 2 hours.^Disp: 9 tablet^Rfl: 1 promethazine (PHENERGAN) 12.5 mg tablet^Take 1 tablet by mouth every 6 hours as needed (Headache).^Disp: 10 tablet^Rfl: 0 CPAP^Dispense CPAP 6 cmH2O, mask, tubing, filters, heated humidity, lifetime supplies. Dx: JENNY^Disp: 1 Device^Rfl: 0 OXYGEN, HOME THERAPY,^Please dispense an oxygen concentrator, a portable oxygen concentrator and all necessary accessories to be used at 2L/min NC with exertion and with sleep.^Disp: 1 Each^Rfl: 99 COMPOUNDED PRESCRIPTION^Please dispense an oxygen concentrator and a portable oxygen concentrator and all necessary accessories to be used at 2L/min NC with exertion.^Disp: 1 Each^Rfl: 0 acetaminophen/caffeine (EXCEDRIN ASPIRIN FREE ORAL)^Take 2 tablets by mouth as needed.^Disp: ^Rfl: Inhalational Spacing Device (AEROCHAMBER) Spcr^1 Device as directed.^Disp: 1 Inhaler^Rfl: 0 PHYSICAL EXAMINATION: BP 168/72 Pulse 88 Resp 16 Ht 158.8 cm (5' 2.52") Wt 61.2 kg (134 lb 14.7 oz) SpO2 95% BMI 24.27 kg/m Physical Exam Vitals and nursing note reviewed. Constitutional: General: She is not in acute distress. Appearance: Normal appearance. She is normal weight. HENT: Head: Normocephalic and atraumatic. Nose: No congestion or rhinorrhea. Mouth/Throat: Pharynx: No oropharyngeal exudate or posterior oropharyngeal erythema. Cardiovascular: Rate and Rhythm: Normal rate and regular rhythm. Heart sounds: No murmur heard. No gallop. Pulmonary: Effort: Pulmonary effort is normal. No respiratory distress. Breath sounds: Rales present. No wheezing. Musculoskeletal: Right lower leg: No edema. Left lower leg: No edema. Lymphadenopathy: Cervical: No cervical adenopathy. Neurological: General: No focal deficit present. Mental Status: She is alert and oriented to person, place, and time. Mental status is at baseline. Psychiatric: Mood and Affect: Mood normal. Behavior: Behavior normal. DATA: Diagnostic tests reviewed for today's visit, including films and specimens, were personally reviewed by wv CXR Reviewed report and images 12/21/2020 RESULT: Lines, tubes, and devices: None. Lungs and pleura: Bilateral interstitial coarsening, most pronounced in the right upper lobe and left base, similar to 01/24/2020. No confluent infiltrate is seen. CT chest Reviewed report and images 04/10/2022 RESULT: Limitations: None. Lines, tubes, and devices: None. Lung parenchyma and airways: Extensive bilateral parenchymal abnormalities involving all lobes consisting of lower lung predominant peripheral architectural distortion, honeycombing and traction bronchiectasis, progressed compared to the study from 01/24/2020. An 8 mm nodule in right upper lobe on image 102 was not convincingly identified on the prior examinations dated while this may represent component of pulmonary fibrosis, growing lung nodule remains possible. No air trapping or excessive dynamic airway collapse. Pleural space: No pleural effusion. No pleural thickening. PFT Reviewed 01/30/2021 Spirometry is normal. The TLC is reduced indicating restriction. The presence of a reduced lung diffusion capacity - that normalizes when measured independent of alveolar volume (kCO) is consistent with a nonparenchymal disorder but does not rule out parenchymal or pulmonary vascular disorder. Oximetry with Ambulation 05/05/2022 Echo Reviewed 01/2020 Impression CONCLUSIONS: - Exam indication: Suspected Pulmonary hypertension, SOB - The left ventricle is normal in size. Left ventricular systolic function is normal. EF = 60 5% (2D biplane) Normal left ventricular diastolic function. - The right ventricle is normal in size. Right ventricular systolic function is normal. - Mild 1+ mitral regurgitation. - Mild 1+ tricuspid regurgitation. - Estimated right ventricular systolic pressure is 23 mmHg consistent with normal pulmonary artery pressures. Estimated right atrial pressure is 3 mmHg based on IVC assessment. Labs Reviewed Latest Reference Range & Units 05/30/21 15:47 09/04/21 16:15 10/28/21 11:56 Sodium 136 - 144 mmol/L 134 (L) 143 Potassium 3.7 - 5.1 mmol/L 4.7 3.8 Chloride 97 - 105 mmol/L 99 105 CO2 22 - 30 mmol/L 30 34 (H) BUN 7 - 21 mg/dL 9 11 Creatinine 0.58 - 0.96 mg/dL 0.65 0.70 Glucose 74 - 99 mg/dL 85 115 (H) Protein, Total 6.3 - 8.0 g/dL 7.5 7.7 7.8 Calcium 8.5 - 10.2 mg/dL 9.3 9.4 Albumin 3.9 - 4.9 g/dL 3.9 4.3 4.1 Bilirubin, Total 0.2 - 1.3 mg/dL 0.2 0.2 0.2 Bilirubin, Conjug <0.2 mg/dL <0.2 Alkaline Phosphatase 34 - 123 U/L 97 107 103 ALT 7 - 38 U/L 8 10 10 AST 13 - 35 U/L 23 18 15 Anion Gap 9 - 18 mmol/L 5 (L) 4 (L) eGFR >=60 mL/min/1.73m 89 88 Total Cholesterol, Nonfasting <200 mg/dL 166 Triglycerides, Nonfasting <150 mg/dL 141 HDL Cholesterol, Nonfasting >39 mg/dL 61 LDL Cholesterol, Nonfasting <100 mg/dL 77 Non HDL Cholesterol, Nonfasting <130 mg/dL 105 VLDL Cholesterol, Nonfasting <30 mg/dL 28 Total Chol/HDL Ratio, Nonfasting <5.10 mg/dL 2.72 LDL/HDL Ratio, Nonfasting <2.54 mg/dL 1.26 TSH 0.270 - 4.200 mIU/L 1.450 WBC 3.70 - 11.00 k/uL 9.24 6.92 RBC 3.90 - 5.20 m/uL 3.72 (L) 3.73 (L) Hemoglobin 11.5 - 15.5 g/dL 11.7 11.8 Hematocrit 36.0 - 46.0 % 36.5 37.0 Platelet Count 150 - 400 k/uL 232 241 MCV 80.0 - 100.0 fL 98.1 99.2 MCH 26.0 - 34.0 pg 31.5 31.6 MCHC 30.5 - 36.0 g/dL 32.1 31.9 MPV 9.0 - 12.7 fL 9.5 9.0 RDW-CV 11.5 - 15.0 % 13.2 13.0 (L): Data is abnormally low (H): Data is abnormally high Immunization History Administered Date(s) Administered COVID-19 booster vaccine, age 12+ yr, bivalent ([facility]) 12/13/2021 COVID-19 original vaccine, age 12+ yr, monovalent ([employer] - PURPLE TOP) 2020 05/04/2020 03/06/2021 Influenza Seasonal - High Dose - Age 65+ 03/25/2016 12/26/2016 01/28/2018 12/15/2018 Influenza Seasonal Inj Age 3+ 12/20/2013 Influenza Vaccine, Split-Non Spec 12/17/2002 12/05/2003 01/09/2005 12/31/2005 01/09/2007 12/14/2009 01/12/2012 Pneumococcal-13 Vac Conjugate 10/10/2014 Pneumovax 07/07/2006 12/20/2013 Tdap (Age 7+) 05/12/2016 Zoster Recombinant (Shingrix) 08/18/2019 11/03/2019 influenza, high-dose, quadrivalent vaccine (FLUZONE HIGH DOSE QUADRIVALENT) 01/04/2020 12/13/2021 Patient instructed to contact me via my chart for radiology and lab test results. I have collected the history from the patient and chart. I have personally examined the patient, and have also independently reviewed the imaging and any available laboratory data. I addressed the questions of the patient, and patient has expressed understanding and acceptance of my answers. No follow-ups on file. Patient instructed to call our office or PCP or go to the emergency department for new or worsening problems or symptoms including, but not limited to, increasing shortness of breath, cough, phlegm, fever, and chills. Electronically signed by: Tomasa Ramirez APRN.CNP Pulmonary Medicine Respiratory [place], [facility] documented in this encounter [facility] 05-03-2022 Miscellaneous Notes Reason for Call: Covid Exposure Outcome: Home Care Recommendation. Interim Care Advice given. Patient has an apt with [employer] [facility] on Thursday. Reason for Disposition [1] COVID-19 EXPOSURE within last 14 days AND [2] NO symptoms Answer Assessment - Initial Assessment Questions 1. COVID-19 EXPOSURE: in a senior care facility and some residents in the facility have covid 2. PLACE of CONTACT: see above 3. TYPE of CONTACT: same building 4. DURATION of CONTACT: unknown 5. MASK: patient was wearing a mask 6. DATE of CONTACT: 3 days ago 7. COMMUNITY SPREAD: no 8. SYMPTOMS: none 9. VACCINE: yes 10. BOOSTER: yes 11. OR : 12. HIGH RISK: pulmonary fibrosis 13. TRAVEL: no Protocols used: Coronavirus (COVID-19) [id number] documented in this encounter [facility] 05-01-2022 Miscellaneous Notes Patient requesting refills as follow: Last prescribed : 02/03/22 Last OV: 02/14/22 Next OV: 05/21/22 Requested Prescriptions Pending Prescriptions Disp Refills esomeprazole (NEXIUM) 40 mg capsule 90 capsule 2 Sig: Take 1 capsule by mouth daily before breakfast. Please review and advise. Charleen Cruz Ma documented in this encounter [facility] 04-29-2022 Miscellaneous Notes Pharmacy verified in [facility] Patient has been identified by name and date of : Yes Patient aware RX will be sent to pharmacy. No need to notify patient. Pharmacy phones for refill(s): Requested Prescriptions Pending Prescriptions Disp Refills ALPRAZolam (XANAX) 1 mg tablet 90 tablet 0 Sig: Take 1 tablet by mouth three times daily as needed for sedation or anxiety for up to 30 days. Date of last office visit : 02/14/2022 Date of next office visit : 05/21/2022 Last 2 Encounter Wt Readings: Date: Wt: 02/14/2022 64.4 kg (142 lb) 12/13/2021 65.8 kg (145 lb) Please advise. Tati Mark Ma documented in this encounter [facility] 04-25-2022 Miscellaneous Notes Last appointment: 02/14/22 Next appointment: 05/21/22 Pharmacy verified in [facility]. Refill(s) requested: Requested Prescriptions Pending Prescriptions Disp Refills pravastatin (PRAVACHOL) 40 mg tablet 90 tablet 4 Sig: Take 1 tablet by mouth daily at bedtime. Order(s) pended. Please advise. Destiny Asencio LPN documented in this encounter [facility] 04-23-2022 Miscellaneous Notes Spoke to patient who states shingles started on Thursday. Went to urgent care Thursday and started acyclovir that day. Rash is on her face, right side - also started on forehead, cheek and ear. Taking tylenol for pain Using ice packs on head for headache Discussed home remedies per protocol and will call back if symptoms worsen or persist. Reason for Disposition [1] Shingles rash already diagnosed and [2] taking antiviral medication Protocols used: Shingles (Zoster)-ADULT- Merna is calling to ask about shingles. She has a break out and was diagnosed at the [facility] on Thursday. Please contact her at [phone] documented in this encounter [facility] 04-20-2022 History of Present illness Narrative Patient is an 82-year-old female who complains of acute onset of a red, painful rash to her left face which has developed over the past 16 hours. Patient has noted no vesicles or other skin lesions. Patient reports that the rash and pain are primarily located to her left temporal skin. Patient denies symptoms to her left eye but does report that the skin around her left eye is tingling. Patient denies redness, matting or discharge to her left eye and reports no acute changes to her vision. Patient does not wear contact lenses and does wear prescription glasses. Patient states that her right face is asymptomatic and nontender. Patient also reports the remainder of the skin to her BSA is unremarkable and she notes no additional areas of redness or pain to her skin. Patient denies recent illness although she is on home oxygen. Patient has no painful lesions to the mucosa of her mouth reports that she is swallowing without difficulty. Family member with the patient states that there is no facial asymmetry and her speech is normal and clear. Family member reports that the patient has experienced no weakness to her extremities. Patient states she has no history of shingles. [facility] Phone: 04-16-2022 Miscellaneous Notes Patient left VM on triage line re: Below. Called and left message letting her know tablets were sent to pharmacy. documented in this encounter [facility] 04-16-2022 Miscellaneous Notes Patient is rescheduled Please see patient's mychart message. documented in this encounter [facility] 04-11-2022 Miscellaneous Notes Please schedule the patient for CT scan chest in 3 months followed by an office visit Thank you documented in this encounter [facility] 04-10-2022 History of Present illness Narrative Radiology Service Progress Note PATIENT NAME: Merna Webster DATE OF SERVICE: April 10, 2022 TIME: 4:37 PM PATIENT IDENTITY VERIFICATION COMPLETED USING TWO (2) IDENTIFIERS: Name and Date of confirmed by patient verbally and Name and Date of confirmed by identification band. FALL SCREENING: Has the patient had 2 falls in the last year or 1 fall with injury or currently using an Ambulatory Assistive Device (Walker, Cane, Wheelchair, Crutches, etc.)? No PATIENT GENDER DATA: Female. status: : No status: NO. PATIENT RELEVANT IMPLANT DATA REVIEWED: Not Applicable RADIOLOGY DEPARTMENT: CT; Exam(s) Completed: Chest PERIPHERAL IV DATA: Not applicable SIGNED BY: RT Jennifer(R) April 10, 2022 4:37 PM documented in this encounter [facility] 04-08-2022 Miscellaneous Notes Patient is scheduled Images from the original note were not included. First attempt: left voicemail for patient to call back and scheduled echo NEEMA Anthony Pulmonary Clerical Pool I have added an order for echocardiogram to assess for pulmonary hypertension related to the patient's pulmonary fibrosis. Please have her schedule this whenever it is most convenient for her. Thanks. Tomasa Ramirez APRN.CNP documented in this encounter [facility] 04-02-2022 Miscellaneous Notes See [employer] message from 04/02/22 Closing this encounter. Left message for patient to call office back for message below. Multiple MyChart messages sent regarding elevated BP readings. PCP did respond to one- will check at 's OV next week. Called to see if she would like to discuss further or if she had other concerns. No answer. Left message to call office back if she would likep to talk to a triage nurse. Sabine Goyal RN Reason for Disposition Message left on unidentified voice mail. Phone number verified. Protocols used: No Contact or Duplicate Contact [id number] documented in this encounter [facility] 04-01-2022 Miscellaneous Notes Addressed in alternate encounter. Sabine Goyal RN documented in this encounter [facility] 03-31-2022 Miscellaneous Notes PDMP website checked and validated. All prescriptions have been APPROPRIATELY filled. No suspicious activity was identified. 03/31/2022 by Brinda Dominguez APRN.[employer] Last appointment: 02/14/22 Next appointment: 05/21/22 Pharmacy verified in [facility]. Refill(s) requested: Requested Prescriptions Pending Prescriptions Disp Refills ALPRAZolam (XANAX) 1 mg tablet 90 tablet 0 Sig: Take 1 tablet by mouth three times daily as needed for sedation or anxiety for up to 30 days. Order(s) pended. Please advise. Lauren Garcia LPN, CMA documented in this encounter [facility] 03-31-2022 Miscellaneous Notes Last appointment: 02/14/22 Next appointment: 05/21/22 Pharmacy verified in [facility]. Refill(s) requested: Requested Prescriptions Pending Prescriptions Disp Refills triamcinolone acetonide (KENALOG) 0.5 % cream 15 g 1 Sig: Apply to affected area three times daily. Order(s) pended. Please advise. Lauren Garcia LPN, CMA documented in this encounter [facility] 03-31-2022 History of Present illness Narrative Images from the original note were not included. [facility]PART[facility]UL[facility]ICINE ESTABLISHED PATIENT OFFICE VISIT 03/31/2022 Patient Name: Merna Webster PRIMARY CARE PHYSICIAN: Сергей Espinoza MD CHIEF COMPLAINT: Patient presents with: Shortness of Breath: spo2 dropping as low as 78 at home last couple weeks ASSESSMENT: (J84.112) Idiopathic pulmonary fibrosis (HCC) (primary encounter diagnosis) (J96.11) Chronic respiratory failure with hypoxia (HCC) (J45.30) Mild persistent asthma without complication (G47.33, Z99.89) JENNY on CPAP - patient presents today for follow up of fibrosis and mild asthma. She reports episodes where she finds her SpO2 to be in the low 80's or high 70's but this is after activity and not wearing supplemental O2. She is supposed to wear 2L with exertion and PRN. Also has 2L bled into CPAP overnight. She feels better when wearing O2. She is currently taking her flovent 110 mcg as prescribed. Has not had any acute illness or changes in her respiratory status and has not required any steroids/abx for respiratory concerns. She needs repeat spirometry and oximetry with ambulation. FVC 50%, TLC 51% on spirometry 2020. Patient does report frequent headaches as well as ear-ringing and had elevated BP in office today. Encouraged to reach out to PCP for additional HTN treatment. PLAN: - follow up spirometry, lung volumes, DLCO, oximetry with ambulation - follow up CT chest in place to assess status of fibrosis - start flovent 220 mcg 2 puffs BID - continue albuterol PRN - continue esbriet 801 mg TID, tolerating well - continue 2L O2 PRN, with exertion, and overnight - continue CPAP HS, patient benefiting from this - continue flonase and maria c for allergies/rhinorrhea - encouraged regular consumption of ensure/boost shakes to help supplement diet, reports losing some weight due to stress and other factors related to care of Subjective HISTORY OF PRESENT ILLNESS: Merna Webster is a 81 year old female who presents today for follow-up. Past medical history is also significant for IPF, asthma, JENNY on CPAP, chronic respiratory failure with hypoxia, headaches, HTN, HLD, esophageal reflux, hypothyroidism, psoriasis, osteoporosis, depression/anxiety. Never smoker. Most recent pulmonary office visit was on 10/28/[address] Grier. Recommendations from that office visit were as follows: 1. Mild persistent asthma without complication - ICD9: 493.90, ICD10: J45.30 (primary diagnosis) Mild intermittent Asthma stable - Continue Flovent: 110 mcg 2 puffs twice daily - Albuterol MDI 2 puffs with spacer prn - Avoidance of triggers recommended - Asthma Action Plan reviewed - Check daily peak flows- bring in log on next visit - Flu shot in the fall recommended 2. Idiopathic pulmonary fibrosis (HCC) - ICD9: 516.31, ICD10: J84.112 -Restrictive lung disease, normal DLCO -Normal connective-tissue disease workup -Could not tolerate Ofev -Patient tolerating Esbriet since August 2018 liver function tests normal 3. Chronic respiratory failure with hypoxia (HCC) - ICD9: 518.83, 799.02, ICD10: J96.11 - Continue supplemental oxygen. Currently using 4L NC - DME: [employer] - SIX MINUTE WALK 59.5 % od predicted. Max HR 107 on 2 L O2 4. Obstructive sleep apnea on cpap - Compliant with nightly use and benefiting 5. Gastroesophageal reflux disease, unspecified whether esophagitis present - ICD9: 530.81, ICD10: K21.9 - Discussed lifestyle modifications including losing weight, limiting caffeine, no meals three hours before sleep and head of bed elevation -Well controlled on Nexium 6. Allergic rhinitis, unspecified seasonality, unspecified trigger - ICD9: 477.9, ICD10: J30.9 - Well controlled on Flonase and Maria C 7. Post Covid syndrome Referral to [place] discussed Referral to functional medicine discussed On hold since is hospitalized with hip fracture 8. H/o covid infection November 2020 Did not require hsopitalization INTERVAL HPI Since the last visit on 10/28/2021, Ms. Webster reports: Had some desats with not wearing O2 - wears 2L with exertion and overnight Has clear phlegm No wheezing, subjective shortness of breath Took predsnisone in January - for hip Does get some migraines - sometimes related to low O2 but also has excedrin Feels like she has lost some weight - is exhuasted and stressed Patient denies fever, chills, night sweats, hemoptysis MMRC Dyspnea Scale: 0. Not troubled by breathlessness except on strenuous exercise Short of breath when hurrying or walking up a slight hill Walks slower than contemporaries on the level because of breathlessness, or has to stop for breath when walking at own pace Stops for breath after about 100 m or after a few minutes on the level Too breathless to leave the house, or breathless when dressing or undressing ECO03/31/2022 2- Ambulatory and capable of all selfcare; unable to carry out work activities. Up and about > 50% of waking hrs. REVIEW OF SYSTEMS Review of Systems Constitutional: Negative for chills, fatigue, fever and unexpected weight change. HENT: Positive for congestion, postnasal drip and rhinorrhea. Negative for sinus pressure, sinus pain and sore throat. Respiratory: Positive for cough and shortness of breath. Negative for chest tightness and wheezing. Cardiovascular: Negative for chest pain and leg swelling. Gastrointestinal: Positive for constipation. Negative for abdominal pain, blood in stool, diarrhea, nausea and vomiting. Genitourinary: Negative for difficulty urinating and vaginal bleeding. Musculoskeletal: Negative for back pain and joint swelling. Skin: Negative for rash. Neurological: Negative for dizziness, weakness, light-headedness and numbness. All other systems reviewed and are negative. Compliant with airway regimen of: flovent 110 mcg 2 puffs BID, Qvar 80 mcg 2 puffs BID ??, albuterol PRN Objective PAST MEDICAL HISTORY Diagnosis Date Apnea cpap Asthma Asthma Bowel disease Degeneration of lumbar or lumbosacral intervertebral disc significant Diverticulosis of colon (without mention of hemorrhage) Dysthymic disorder Depression (non-psychotic) Esophageal reflux Gastroesophageal reflux Hypothyroidism 05/22/2016 Migraine Obstructive sleep apnea osteoporosis T11 mild compression. Other and unspecified hyperlipidemia needs med Snoring Thyroid disorder Unspecified essential hypertension Essential hypertension PAST SURGICAL HISTORY Procedure Laterality Date COLONOSCOPY 2006 rpt 2011. had diverticulum. TONSILLECTOMY & ADENOIDECTOMY <AGE 13 Tonsil/adenoidectomy TOTAL ABDOMINAL HYSTERECT W/WO RMVL TUBE OVARY 1993 Hysterectomy, RAPHAEL - menorrhagia & fibroids FAMILY HISTORY Problem Relation Age of Onset other (Kidney stones) Father Diabetes Brother Colon Cancer Brother Hypertension Brother COPD Sister Social History Tobacco Use Smoking status: Never Smokeless tobacco: Never Substance Use Topics Alcohol use: No Drug use: No ALLERGIES Allergen Reactions Rofecoxib Itching heart palpitations,red blotching on face Aspirin heart palpitations Ibuprofen face swells Lisinopril GI Upset Acid reflux Seasonal Allergies Other: See Comments Singulair [[place]eluk* Rash Sulfa (Sulfonamide * rash CURRENT OUTPATIENT MEDICATIONS esomeprazole (NEXIUM) 40 mg capsule Take 1 capsule by mouth daily before breakfast. VENTOLIN HFA 90 mcg/actuation inhaler Inhale 2 Puffs as instructed every 4 hours as needed. nortriptyline (PAMELOR) 75 mg capsule Take 1 capsule by mouth daily at bedtime. verapamil SR (CALAN SR, ISOPTIN SR) 240 mg CR tablet Take 1 tablet by mouth daily at bedtime. levothyroxine (SYNTHROID) 25 mcg tablet Take 1 tablet by mouth once daily. pravastatin (PRAVACHOL) 40 mg tablet Take 1 tablet by mouth daily at bedtime. fexofenadine (MARIA C) 180 mg tablet Take 180 mg by mouth once daily. albuterol (PROVENTIL) 2.5 mg /3 mL (0.083 %) nebulizer solution Use 3 mL via nebulizer every 4 hours as needed for wheezing/shortness of breath. Use via nebulizer three times daily as needed. OVER 5-15 MINUTES. FOR WHEEZING AND SHORTNESS OF BREATH. SUMAtriptan (IMITREX) 100 mg tablet Take 1 tablet by mouth as needed for Migraine Headache (see administration instructions). at onset of headache.May repeat after 2 hours. promethazine (PHENERGAN) 12.5 mg tablet Take 1 tablet by mouth every 6 hours as needed (Headache). acetaminophen/caffeine (EXCEDRIN ASPIRIN FREE ORAL) Take 2 tablets by mouth as needed. fluticasone (FLOVENT HFA) 220 mcg/actuation inhaler Inhale 1 Puff as instructed twice daily. Shake well before use. Rinse mouth after use. pirfenidone (ESBRIET) 267 mg capsule TAKE 3 CAPSULES BY MOUTH THREE TIMES A DAY WITH MEALS ALPRAZolam (XANAX) 1 mg tablet Take 1 tablet by mouth three times daily as needed for sedation or anxiety for up to 30 days. Do not start before February 28, 2022. buPROPion XL (WELLBUTRIN XL) 150 mg 24 hr tablet Take 1 tablet by mouth once daily. (Patient not taking: Reported on 03/31/2022) triamcinolone acetonide (KENALOG) 0.5 % cream Apply to affected area three times daily. diclofenac sodium (VOLTAREN) 1 % topical gel Apply 2 g to affected area four times daily. CPAP Dispense CPAP 6 cmH2O, mask, tubing, filters, heated humidity, lifetime supplies. Dx: JENNY OXYGEN, HOME THERAPY, Please dispense an oxygen concentrator, a portable oxygen concentrator and all necessary accessories to be used at 2L/min NC with exertion and with sleep. COMPOUNDED PRESCRIPTION Please dispense an oxygen concentrator and a portable oxygen concentrator and all necessary accessories to be used at 2L/min NC with exertion. Inhalational Spacing Device (AEROCHAMBER) Spcr 1 Device as directed. PHYSICAL EXAMINATION: BP 166/77 (BP Site: Left Arm, BP Position: Sitting, BP Cuff Size: Regular Adult) Pulse 83 SpO2 96% Physical Exam Vitals reviewed. Constitutional: General: She is not in acute distress. Appearance: Normal appearance. She is normal weight. HENT: Head: Normocephalic and atraumatic. Nose: No congestion or rhinorrhea. Mouth/Throat: Pharynx: No oropharyngeal exudate or posterior oropharyngeal erythema. Cardiovascular: Rate and Rhythm: Normal rate and regular rhythm. Heart sounds: No murmur heard. No gallop. Pulmonary: Effort: Pulmonary effort is normal. Breath sounds: Rales present. No wheezing. Musculoskeletal: Right lower leg: No edema. Left lower leg: No edema. Neurological: General: No focal deficit present. Mental Status: She is alert and oriented to person, place, and time. Psychiatric: Mood and Affect: Mood normal. Behavior: Behavior normal. DATA: Diagnostic tests reviewed for today's visit, including films and specimens, were personally reviewed by me CXR Reviewed report and images 05/2018 IMPRESSION: Moderate peribronchial wall thickening which can be seen with reactive small airways or viral disease. Chronic interstitial changes in the right upper lung. CT chest Reviewed report and images 12/2020 RESULT: Lung parenchyma and airways: No infiltrate or pneumothorax. Architectural distortion involving the lungs predominantly involving the lower lobes. Associated bronchiectasis within the upper and lower lobes. Honeycombing involving the lungs predominantly within the lung bases. Mild worsening of fibrotic changes of the lungs within the left lung base. No suspicious pulmonary nodularity. Pleural space: No pleural effusion. No pleural thickening. PFT Reviewed 01/30/2021 Spirometry is normal. The TLC is reduced indicating restriction. The presence of a reduced lung diffusion capacity - that normalizes when measured independent of alveolar volume (kCO) is consistent with a nonparenchymal disorder but does not rule out parenchymal or pulmonary vascular disorder. Echo Reviewed 01/2020 Impression CONCLUSIONS: - Exam indication: Suspected Pulmonary hypertension, SOB - The left ventricle is normal in size. Left ventricular systolic function is normal. EF = 60 5% (2D biplane) Normal left ventricular diastolic function. - The right ventricle is normal in size. Right ventricular systolic function is normal. - Mild 1+ mitral regurgitation. - Mild 1+ tricuspid regurgitation. - Estimated right ventricular systolic pressure is 23 mmHg consistent with normal pulmonary artery pressures. Estimated right atrial pressure is 3 mmHg based on IVC assessment. Labs Reviewed Latest Reference Range & Units 05/30/21 15:47 09/04/21 16:15 10/28/21 11:56 Sodium 136 - 144 mmol/L 134 (L) 143 Potassium 3.7 - 5.1 mmol/L 4.7 3.8 Chloride 97 - 105 mmol/L 99 105 CO2 22 - 30 mmol/L 30 34 (H) BUN 7 - 21 mg/dL 9 11 Creatinine 0.58 - 0.96 mg/dL 0.65 0.70 Glucose 74 - 99 mg/dL 85 115 (H) Protein, Total 6.3 - 8.0 g/dL 7.5 7.7 7.8 Calcium 8.5 - 10.2 mg/dL 9.3 9.4 Albumin 3.9 - 4.9 g/dL 3.9 4.3 4.1 Bilirubin, Total 0.2 - 1.3 mg/dL 0.2 0.2 0.2 Bilirubin, Conjug <0.2 mg/dL <0.2 Alkaline Phosphatase 34 - 123 U/L 97 107 103 ALT 7 - 38 U/L 8 10 10 AST 13 - 35 U/L 23 18 15 Anion Gap 9 - 18 mmol/L 5 (L) 4 (L) eGFR >=60 mL/min/1.73m 89 88 Total Cholesterol, Nonfasting <200 mg/dL 166 Triglycerides, Nonfasting <150 mg/dL 141 HDL Cholesterol, Nonfasting >39 mg/dL 61 LDL Cholesterol, Nonfasting <100 mg/dL 77 Non HDL Cholesterol, Nonfasting <130 mg/dL 105 VLDL Cholesterol, Nonfasting <30 mg/dL 28 Total Chol/HDL Ratio, Nonfasting <5.10 mg/dL 2.72 LDL/HDL Ratio, Nonfasting <2.54 mg/dL 1.26 TSH 0.270 - 4.200 mIU/L 1.450 WBC 3.70 - 11.00 k/uL 9.24 6.92 RBC 3.90 - 5.20 m/uL 3.72 (L) 3.73 (L) Hemoglobin 11.5 - 15.5 g/dL 11.7 11.8 Hematocrit 36.0 - 46.0 % 36.5 37.0 Platelet Count 150 - 400 k/uL 232 241 MCV 80.0 - 100.0 fL 98.1 99.2 MCH 26.0 - 34.0 pg 31.5 31.6 MCHC 30.5 - 36.0 g/dL 32.1 31.9 MPV 9.0 - 12.7 fL 9.5 9.0 RDW-CV 11.5 - 15.0 % 13.2 13.0 (L): Data is abnormally low (H): Data is abnormally high Immunization History Administered Date(s) Administered COVID-19 booster vaccine, age 12+ yr, bivalent ([facility]) 12/13/2021 COVID-19 original vaccine, age 12+ yr, monovalent ([facility]) 2020 05/04/2020 03/06/2021 Influenza Seasonal - High Dose - Age 65+ 03/25/2016 12/26/2016 01/28/2018 12/15/2018 Influenza Seasonal Inj Age 3+ 12/20/2013 Influenza Vaccine, Split-Non Spec 12/17/2002 12/05/2003 01/09/2005 12/31/2005 01/09/2007 12/14/2009 01/12/2012 Pneumococcal-13 Vac Conjugate 10/10/2014 Pneumovax 07/07/2006 12/20/2013 Tdap (Age 7+) 05/12/2016 Zoster Recombinant (Shingrix) 08/18/2019 11/03/2019 influenza, high-dose, quadrivalent vaccine (FLUZONE HIGH DOSE QUADRIVALENT) 01/04/2020 12/13/2021 Patient instructed to contact me via my chart for radiology and lab test results. I have collected the history from the patient and chart. I have personally examined the patient, and have also independently reviewed the imaging and any available laboratory data. I addressed the questions of the patient, and patient has expressed understanding and acceptance of my answers. Return in about 6 months (around 09/28/2022). Patient instructed to call our office or PCP or go to the emergency department for new or worsening problems or symptoms including, but not limited to, increasing shortness of breath, cough, phlegm, fever, and chills. Electronically signed by: Tomasa Ramirez APRN.TREVA Pulmonary Medicine Respiratory [place], [facility] documented in this encounter [facility] 03-28-2022 Miscellaneous Notes Please inform the report to the ER if not feeling well and persistently low O2 sat Spoke with patient and she was reporting de sating to low 80's with walking on RA. Informed her that she can use the oxygen throughout the day. She is using Qvar and Flovent as ordered. Also instructed her to try Albuterol before house chores to help with the shortness of breath. Verbalized understanding. PLEASE CALL PATIENT TO RESCHEDULE BREATHING TESTS AND FOLLOW UP IN PULM WITH [employer]PER[employer]OR [employer] Patient called to reschedule her appointment, and asked if a nurse can please call her today and assist her with her oxygen issues. documented in this encounter [facility] 03-25-2022 Miscellaneous Notes Noted/agree. Brinda Dominguez APRN.[employer] Spoke to patient who c/o migraine headache that started yesterday and is gradually worsening. She took Excedrin Migraine and it slightly improved. Patient has Sumatriptan medication but she was calling to make sure this was for migraine headaches before she took it. Patient denies confusion, weakness or numbness of the face, arm, or leg, denies loss of vision (except same vision changes as prior migraines). Patient talking normally, able to ambulate. Care advice: Take Sumatriptan as ordered Rest, local cold, Call back if headache worsens or persists Reason for Disposition Similar to previously diagnosed migraine headaches Answer Assessment - Initial Assessment Questions 1. LOCATION: "Where does it hurt?" Whole head, radiates down back of neck, eye pain Some vision changes - similar symptoms to when she has a migraine in the past. Light sensitivity She has taken Excedrin migraine Sumatriptan -- has not taken, she was calling to make sure this was her migraine medication. 2. ONSET: yesterday mild, today worse 3. PATTERN: constant 4. SEVERITY: moderate to severe 5. RECURRENT SYMPTOM: yes 6. CAUSE: Migraine 7. MIGRAINE: Yes 8. HEAD INJURY: denies Denies dizziness, weakness, face asymmetry, She took Excedrin and wanted to know if it is okay to take imitrex -- she could not remember if this was the medication she is suppose to take for her migraines because it has been a while. Protocols used: [id number] documented in this encounter [facility] 03-19-2022 Miscellaneous Notes Patient is scheduled to see Rica Vetovitz PA-C on 03/25/2022 for right hip pain at 1 PM. I see that she had been scheduled for an XR on Thursday03/21/2022 called and left detailed message for patient that we can do her XR in the [facility] 3rd floor same floor as ortho the same day as her appointment if she would like to come in only once would just have her arrive 30 mins prior to her appointment time and they will be able to get XR's here. Left call back number for patient to call the office back and XR appointment scheduled. Fariba Willoughby MA March 19, 2022 1:37 PM documented in this encounter [facility] 02-27-2022 Miscellaneous Notes PDMP website checked and validated. All prescriptions have been APPROPRIATELY filled. No suspicious activity was identified. 02/27/2022 by Brinda Dominguez APRN.[employer] Pharmacy verified in [facility] Patient has been identified by name and date of : Yes Patient aware RX will be sent to pharmacy. No need to notify patient. Patient phones for refill(s): Requested Prescriptions Pending Prescriptions Disp Refills ALPRAZolam (XANAX) 1 mg tablet 90 tablet 0 Sig: Take 1 tablet by mouth three times daily as needed for sedation or anxiety for up to 30 days. Date of last office visit : 02/14/2022 Date of next office visit : 05/21/2022 Last 2 Encounter Wt Readings: Date: Wt: 02/14/2022 64.4 kg (142 lb) 12/13/2021 65.8 kg (145 lb) Not applicable Please advise. Jaclyn Rose MA documented in this encounter [facility] 02-14-2022 History of Present illness Narrative ESTABLISHED PATIENT Merna Webster is a 81 year old female presenting for Follow Up. HISTORY OF PRESENT ILLNESS Patient moved to a one floor with all hard wood floors. That has been helpful for her and her . Depressed at times. Tomorrow will be 5 years since her daughter passed. No children will be coming in for [place]. Has problems getting motivated. Having lower back pain. Tried tylenol and PT without relief. Hasn't tried aleve or ibuprofen because she is allergic. Chronic Benzodiazapine Use Used for: ANxiety Medication: xanax Improves quality of life: Yes Amount used per day: 2-3 per day Hypertension Follow up Medication Adherence: no missed doses and took medications this morning Home monitoring: no Heart palpitations: no Chest pain: no Last 3 Encounter BP Readings: Date: BP: 02/14/2022 130/64 12/13/2021 136/60 10/28/2021 148/75 ASSESSMENT: (M70.61) Trochanteric bursitis of right hip (primary encounter diagnosis) (M25.551) Right hip pain (I10) Essential hypertension (F41.9) Anxiety PLAN: Has trochanteric bursitis and possible arthritis. Will send to ortho for atleast injection for bursitis Tylenol 1000mg tid BP controlled. Continue current meds Continue meds for anxiety HISTORIES FAMILY HISTORY Problem Relation Age of Onset other (Kidney stones) Father Diabetes Brother Colon Cancer Brother Hypertension Brother COPD Sister PAST MEDICAL HISTORY Diagnosis Date Apnea cpap Asthma Asthma Bowel disease Degeneration of lumbar or lumbosacral intervertebral disc significant Diverticulosis of colon (without mention of hemorrhage) Dysthymic disorder Depression (non-psychotic) Esophageal reflux Gastroesophageal reflux Hypothyroidism 05/22/2016 Migraine Obstructive sleep apnea osteoporosis T11 mild compression. Other and unspecified hyperlipidemia needs med Snoring Thyroid disorder Unspecified essential hypertension Essential hypertension PAST SURGICAL HISTORY Procedure Laterality Date COLONOSCOPY 2006 rpt 2011. had diverticulum. TONSILLECTOMY & ADENOIDECTOMY <AGE 13 Tonsil/adenoidectomy TOTAL ABDOMINAL HYSTERECT W/WO RMVL TUBE OVARY 1993 Hysterectomy, RAPHAEL - menorrhagia & fibroids Social History Tobacco Use Smoking status: Never Smokeless tobacco: Never Substance Use Topics Alcohol use: No Drug use: No Allergies: ALLERGIES Allergen Reactions Rofecoxib Itching heart palpitations,red blotching on face Aspirin heart palpitations Ibuprofen face swells Lisinopril GI Upset Acid reflux Seasonal Allergies Other: See Comments Singulair [[place]* Rash Sulfa (Sulfonamide * rash Medications: esomeprazole (NEXIUM) 40 mg capsule Take 1 capsule by mouth daily before breakfast. ALPRAZolam (XANAX) 1 mg tablet Take 1 tablet by mouth three times daily as needed for sedation or anxiety for up to 30 days. predniSONE (DELTASONE) 10 mg tablet Take PO 4 tablets x 5 days, then 3 tablets x 3 days, then 2 tablets x 3 days, 1 tablets x 3 days VENTOLIN HFA 90 mcg/actuation inhaler Inhale 2 Puffs as instructed every 4 hours as needed. fluticasone (FLOVENT HFA) 110 mcg/actuation inhaler Inhale 2 Puffs as instructed twice daily. Inhale by Mouth pirfenidone (ESBRIET) 267 mg capsule TAKE 3 CAPSULES BY MOUTH THREE TIMES A DAY WITH MEALS triamcinolone acetonide (KENALOG) 0.5 % cream Apply to affected area three times daily. nortriptyline (PAMELOR) 75 mg capsule Take 1 capsule by mouth daily at bedtime. verapamil SR (CALAN SR, ISOPTIN SR) 240 mg CR tablet Take 1 tablet by mouth daily at bedtime. levothyroxine (SYNTHROID) 25 mcg tablet Take 1 tablet by mouth once daily. pravastatin (PRAVACHOL) 40 mg tablet Take 1 tablet by mouth daily at bedtime. fexofenadine (MARIA C) 180 mg tablet Take 180 mg by mouth once daily. albuterol (PROVENTIL) 2.5 mg /3 mL (0.083 %) nebulizer solution Use 3 mL via nebulizer every 4 hours as needed for wheezing/shortness of breath. Use via nebulizer three times daily as needed. OVER 5-15 MINUTES. FOR WHEEZING AND SHORTNESS OF BREATH. SUMAtriptan (IMITREX) 100 mg tablet Take 1 tablet by mouth as needed for Migraine Headache (see administration instructions). at onset of headache.May repeat after 2 hours. promethazine (PHENERGAN) 12.5 mg tablet Take 1 tablet by mouth every 6 hours as needed (Headache). CPAP Dispense CPAP 6 cmH2O, mask, tubing, filters, heated humidity, lifetime supplies. Dx: JENNY OXYGEN, HOME THERAPY, Please dispense an oxygen concentrator, a portable oxygen concentrator and all necessary accessories to be used at 2L/min NC with exertion and with sleep. COMPOUNDED PRESCRIPTION Please dispense an oxygen concentrator and a portable oxygen concentrator and all necessary accessories to be used at 2L/min NC with exertion. acetaminophen/caffeine (EXCEDRIN ASPIRIN FREE ORAL) Take 2 tablets by mouth as needed. Inhalational Spacing Device (AEROCHAMBER) Spcr 1 Device as directed. beclomethasone (QVAR REDIHALER) 80 mcg/actuation inhaler Inhale 2 Puffs as instructed twice daily. diclofenac sodium (VOLTAREN) 1 % topical gel Apply 2 g to affected area four times daily. REVIEW OF SYSTEMS GENERAL: No weight loss, malaise or fevers. RESPIRATORY: Negative for cough, hemoptysis, wheezing or shortness of breath. CARDIOVASCULAR: Negative for chest pain, leg swelling or palpitations. All other systems reviewed and negative other than HPI. PHYSICAL EXAM BP 171/93 Pulse 111 Temp 36.4 C (97.5 F) Resp 16 Ht 160 cm (5' 3") Wt 64.4 kg (142 lb) SpO2 94% BMI 25.15 kg/m General: Well developed, well nourished, in no acute distress. Head: Normocephalic, atraumatic. Neck: Supple. Eyes: Normal conjunctiva, no scleral icterus. Lungs: Clear to auscultation bilaterally, no rubs, no wheezing. Cardiac: Regular rate and rhythm. No murmurs, gallops, or rubs. Extremities: No edema. TTP over trochanteric bursa Сергей Espinoza MD BP CONTROLLED (<130/80) Never done documented in this encounter [facility] 02-14-2022 Instructions Callie Taylor - 02/14/2022 2:34 PM EST [facility] BUILDING LAB TEST INFORMATION [facility] OFFICE BUILDING LAB HOURS: Lab is open: 7:30am to 5:00pm M - Th, 7:30am to 4:00pm on Fri and 8am -12pm on Sat. The lab is located in [facility] on the first floor. There is a registration window at the lab, available 7 am to 3 pm Thursday - Thursday. If registration is unavailable at the lab, you may register at the patient registration office near the front lobby of the hospital. SCHEDULING A LAB APPOINTMENT: Laboratory appointments are recommended.Walk ins are still accepted. Call [phone] or schedule via [employer] scheduling ticket. ROUTINE LAB ORDERS 60 days after they are entered. If your lab orders , you may be required to wait in the lab while they are reinstated FUTURE ORDERS are lab tests to be completed on the EXPECTED date. These orders 60 days after the expected date. STANDING ORDERS are recurring orders with an expiration date. The interval will indicate how often the test should be completed. CT / MRI / IVP If you have lab tests ordered for one of these radiology exams, please complete the blood work at least one day prior to the scheduled exam. PRESCRIPTION REFILL REQUESTS Request prescription refills through your [employer] account or contact your Pharmacy. My Chart Schedule My Appointment enables you to view your established primary care provider's open schedule and book an appointment online in real-time. This feature is available in internal medicine, family medicine, or pediatrics at any of our [facility] locations and main campus. documented in this encounter [facility] 02-03-2022 Miscellaneous Notes Last appointment: 12/13/21 Next appointment: 02/12/22 Pharmacy verified in [employer]. Refill(s) requested: Requested Prescriptions Pending Prescriptions Disp Refills esomeprazole (NEXIUM) 40 mg capsule 90 capsule 2 Sig: Take 1 capsule by mouth daily before breakfast. Order(s) pended. Please advise. Destiny Asencio LPN documented in this encounter [facility] 01-28-2022 History of Present illness Narrative Episode Visit Count: 2 Therapist That Will Accept/Oversee The Plan Of Care: Brinda Miner Start of Care Date: 01/21/22 Plan of Care Certification Date: 01/21/22 Next Certification Due Date: 03/23/22 Patient Identified by Name and Date of : Yes [facility]AB[facility]ER[facility]Y PHYSICAL THERAPY TREATMENT NOTE ASSESSMENT: Merna Webster tolerated the session with expected muscle soreness. She demonstrated tenderness in right gluteal and gluteus medius, relief with soft tissue mobility. Tolerated gentle hip strengthening. The patient will continue to benefit from ongoing skilled physical therapy to progress toward set goals. PLAN FOR NEXT VISIT: continue with STM, check innominate rotation, progress strengthening as able. SUBJECTIVE: Patient Reason for Visit: Patient reports she is experiencing pain today attempted HEP to assit with pain however she feels it didnt help much today. Has a cone at home, uses it occasionally, states "I think I forget to use it". Pain: Pain Pain Level: 8 Description: Aching Frequency: Continuous OBJECTIVE MEASURES WITH LEVEL OF FUNCTION: Gait Gait Observation: antalgic gait TREATMENT: Therapeutic Exercise: 1: PPT x 10 hold for 5 seconds 2: sciatic nerve glide with AP 5 x 5 on right 3: bridges 3s hold x 10 4: hooklying hip abd iso verse peach band 5s hold x 10 5: hoolying hip adduction verse ball 5s hold x 10 Skilled Intervention: Patient was educated in proper exercise technique and purpose for exercises. Skilled judgment was provided in selection of appropriate interventions. Correct performance of therapeutic exercises was facilitated with verbal, visual, and tactile cuing. Manual Therapy: 1: sidelying on left side, STM to gluteal, right side low back and IT band Skilled Intervention: Manual skills to improve joint mobility, ROM, and decrease pain. Utilized anatomy knowledge of the therapist, and assessment of patient's response to intervention. Billing Therapeutic Exercise Treatment Minutes: 25 Manual TherapyTreatment Minutes: 15 Total Treatment Time Minutes (timed/untimed): 45 Karen Pardo PTA documented in this encounter [facility] 12-31-2021 Miscellaneous Notes [facility] checked and validated. All prescriptions have been APPROPRIATELY filled. No suspicious activity was identified. 12/31/2021 by Brinda Dominguez APRN.TREVA Last appointment: 12/13/21 Next appointment: 02/12/22 Pharmacy verified in [facility]. Refill(s) requested: Requested Prescriptions Pending Prescriptions Disp Refills ALPRAZolam (XANAX) 1 mg tablet 90 tablet 0 Sig: Take 1 tablet by mouth three times daily as needed for sedation or anxiety for up to 30 days. Order(s) pended. Please advise. Avery Zamora Ma [facility] documented in this encounter [facility] 12-30-2021 History of Present illness Narrative Radiology Service Progress Note PATIENT NAME: Merna Webster DATE OF SERVICE: December 30, 2021 TIME: 3:15 PM PATIENT IDENTITY VERIFICATION COMPLETED USING TWO (2) IDENTIFIERS: Name and Date of confirmed by patient verbally. FALL SCREENING: Has the patient had 2 falls in the last year or 1 fall with injury or currently using an Ambulatory Assistive Device (Walker, Cane, Wheelchair, Crutches, etc.)? Yes, Patient High Risk for Falls What interventions were put in place to prevent falls during this visit? Offered Assistance with Transfers/Clothing and Increased Observations by Caregivers PATIENT GENDER DATA: Female. status: : No status: NO. PATIENT RELEVANT IMPLANT DATA REVIEWED: Not Applicable RADIOLOGY DEPARTMENT: General X-ray: Exam(s) Completed: Spine X-Ray(s): Lumbar AP / LAT / L5-S1 and Sacrum/Coccyx Lower Extremity X-Ray(s): Knee, AP / Lat / Tunne / Merchant Right and Wt. Bearing PERIPHERAL IV DATA: Not applicable SIGNED BY: ELFEGO Self December 30, 2021 3:15 PM documented in this encounter [facility] 12-10-2021 Miscellaneous Notes Prior Authorization for Flovent Inhaler faxed to [facility] [phone] per request. documented in this encounter [facility] 12-09-2021 Miscellaneous Notes Pharmacy verified in Epic Patient has been identified by name and date of : Yes Patient aware RX will be sent to pharmacy. No need to notify patient. Patient phones for refill(s): Requested Prescriptions Pending Prescriptions Disp Refills VENTOLIN HFA 90 mcg/actuation inhaler 18 g 11 Sig: Inhale 2 Puffs as instructed every 4 hours as needed. fluticasone (FLOVENT HFA) 110 mcg/actuation inhaler 1 Each 11 Sig: Inhale 2 Puffs as instructed twice daily. Inhale by Mouth Date of last office visit : 05/30/2021 Date of next office visit : Visit date not found Last 2 Encounter Wt Readings: Date: Wt: 10/28/2021 65.8 kg (145 lb 1 oz) 10/28/2021 65.8 kg (145 lb 1 oz) Please advise. Tati Mark Ma documented in this encounter [facility] 12-09-2021 Miscellaneous Notes Patient has been contacted multiple times regarding rescheduling an appointment with Dr. Espinoza. See encounters from 12/03/2021 and 12/05/2021. Vianey Engle 1st attempt. LVM informing patient that we don't have any Saturdays available with Dr. Espinoza and that we can reschedule an appt for a different day of the week that works best for her. Thank you . Lory Lai Please see if there are any Thursday appt for them with Dr Espinoza documented in this encounter [facility] 12-02-2021 Miscellaneous Notes Noted documented in this encounter [facility] 12-02-2021 Miscellaneous Notes Spoke with pt, issue resolved. She has her medication documented in this encounter [facility] 12-02-2021 Miscellaneous Notes Situation has been resolved, see other encounter documented in this encounter [facility] 11-30-2021 Miscellaneous Notes PDMP website checked and validated. All prescriptions have been APPROPRIATELY filled. No suspicious activity was identified. 11/30/2021 by Сергей Espinoza MD documented in this encounter [facility] 11-28-2021 Miscellaneous Notes PDMP website checked and validated. All prescriptions have been APPROPRIATELY filled. No suspicious activity was identified. 11/28/2021 by Brinda Dominguez APRN.[employer] Pharmacy verified in Epic Patient has been identified by name and date of : Yes Patient aware RX will be sent to pharmacy. No need to notify patient. Patient phones for refill(s): Requested Prescriptions Pending Prescriptions Disp Refills ALPRAZolam (XANAX) 1 mg tablet 90 tablet 0 Sig: Take 1 tablet by mouth three times daily as needed for sedation or anxiety for up to 30 days. Date of last office visit : 05/30/2021 Date of next office visit : 12/05/2021 Last 2 Encounter Wt Readings: Date: Wt: 10/28/2021 65.8 kg (145 lb 1 oz) 10/28/2021 65.8 kg (145 lb 1 oz) Not applicable Please advise. Rajat Ramirez Ma documented in this encounter [facility] 11-15-2021 Miscellaneous Notes Received approval from [facility] for Qvar Redihaler 80 mcg Good until 03/01/22 Additional authorization may be required should the plan benefits or formulary change in the new year Pt advised I called [facility] [phone] Started a PA for QVAR, Case # [id number] Turn aroud time 24 to 72 hours Pharmacist from [facility] calling in regard to patient requesting QVAR inhaler. Pharmacist said that she normally uses the flovant. Asking if the flovant is being cancelled. Please return call [phone] documented in this encounter [facility] 11-11-2021 Miscellaneous Notes Attempted to call patient no answer left message to call back. documented in this encounter [facility] 10-28-2021 History of Present illness Narrative Images from the original note were not included. [facility] ESTABLISHED PATIENT OFFICE VISIT 10/28/2021 Patient Name: Merna Webster PRIMARY CARE PHYSICIAN: Сергей Espinoza MD CHIEF COMPLAINT: asthma-IPF f/up HISTORY OF PRESENT ILLNESS: Since the last visit with me on 08/2021, Ms. Webster has been feeling tired and more anxious and having trouble falling asleep since the covid infection November 2021. Shortness of breath is about the same. Has nasal congestion and drainage and cough and sputum. She continues to use Flovent and Esbriet. To continue to use CPAP machine Continue to use oxygen supplementation on exertion and during nighttime 6-minute walk test October 28, 2021 Walk 59% of predicted. Required 2 L of oxygen during exercise Medications: Flovent 2 inhalation twice daily pro-air or albuterol nebulizer as needed Esbriet since August 2018- Social History Tobacco Use Smoking status: Never Smokeless tobacco: Never Substance Use Topics Alcohol use: No Drug use: No ALLERGIES ALLERGIES Allergen Reactions Rofecoxib Itching heart palpitations,red blotching on face Aspirin heart palpitations Ibuprofen face swells Lisinopril GI Upset Acid reflux Seasonal Allergies Other: See Comments Singulair [Monteluk* Rash Sulfa (Sulfonamide * rash CURRENT OUTPATIENT MEDICATIONS triamcinolone acetonide (KENALOG) 0.5 % cream Apply to affected area three times daily. ALPRAZolam (XANAX) 1 mg tablet Take 1 tablet by mouth twice daily as needed for sedation or anxiety for up to 30 days. Do not start before October 05, 2021. nortriptyline (PAMELOR) 75 mg capsule Take 1 capsule by mouth daily at bedtime. verapamil SR (CALAN SR, ISOPTIN SR) 240 mg CR tablet Take 1 tablet by mouth daily at bedtime. pirfenidone (ESBRIET) 267 mg capsule TAKE 3 CAPSULES BY MOUTH THREE TIMES A DAY WITH MEALS esomeprazole (NEXIUM) 40 mg capsule Take 1 capsule by mouth daily before breakfast. levothyroxine (SYNTHROID) 25 mcg tablet Take 1 tablet by mouth once daily. pravastatin (PRAVACHOL) 40 mg tablet Take 1 tablet by mouth daily at bedtime. fluticasone (FLOVENT HFA) 110 mcg/actuation inhaler Inhale 2 Puffs as instructed twice daily. Inhale by Mouth VENTOLIN HFA 90 mcg/actuation inhaler Inhale 2 Puffs as instructed every 4 hours as needed. fexofenadine (MARIA C) 180 mg tablet Take 180 mg by mouth once daily. albuterol (PROVENTIL) 2.5 mg /3 mL (0.083 %) nebulizer solution Use 3 mL via nebulizer every 4 hours as needed for wheezing/shortness of breath. Use via nebulizer three times daily as needed. OVER 5-15 MINUTES. FOR WHEEZING AND SHORTNESS OF BREATH. diclofenac sodium (VOLTAREN) 1 % topical gel Apply 2 g to affected area four times daily. promethazine (PHENERGAN) 12.5 mg tablet Take 1 tablet by mouth every 6 hours as needed (Headache). CPAP Dispense CPAP 6 cmH2O, mask, tubing, filters, heated humidity, lifetime supplies. Dx: JENNY OXYGEN, HOME THERAPY, Please dispense an oxygen concentrator, a portable oxygen concentrator and all necessary accessories to be used at 2L/min NC with exertion and with sleep. pirfenidone (ESBRIET) 267 mg tablet Take 267 mg by mouth three times daily. COMPOUNDED PRESCRIPTION Please dispense an oxygen concentrator and a portable oxygen concentrator and all necessary accessories to be used at 2L/min NC with exertion. acetaminophen/caffeine (EXCEDRIN ASPIRIN FREE ORAL) Take 2 tablets by mouth as needed. Inhalational Spacing Device (AEROCHAMBER) Spcr 1 Device as directed. SUMAtriptan (IMITREX) 100 mg tablet Take 1 tablet by mouth as needed for Migraine Headache (see administration instructions). at onset of headache.May repeat after 2 hours. (Patient not taking: Reported on 10/28/2021) REVIEW OF SYSTEMS Review of Systems Constitutional: Negative for chills, fever and weight loss. Respiratory: Positive for cough, sputum production and shortness of breath. Negative for hemoptysis and wheezing. Cardiovascular: Negative for chest pain and leg swelling. Psychiatric/Behavioral: The patient has insomnia. The remainder of review of systems was negative. PHYSICAL EXAMINATION: BP 148/75 Pulse 78 Ht 5' 2.52" (1.59m) Wt 145 lb 1 oz (65.8kg) SpO2 99[2L]% BMI 26.09 kg/(m^2). General appearance: Well appearing, alert, in no acute distress, well-hydrated, well nourished. Lungs: Lungs clear to auscultation. No wheezing, rhonchi, rales Heart: RRR without murmur, gallop, or rubs. No ectopy. No edema. Peripheral pulses: Normal Abdomen: Normal abdominal exam, Abdomen soft, non-tender. Bowel sounds normal. No masses, organomegaly Extremities: Normal, Warm, and No cyanosis, no clubbing, "Nontender Neuro: no focal deficit Psychiatry: Alert, oriented x3 DATA: Diagnostic tests reviewed for today's visit, including films and specimens, were personally reviewed by me Most recent labs and imaging results. XR CHEST 1V FRONTAL PORT Result Date: 12/21/2020 IMPRESSION: Chronic lung disease. No definite acute consolidation. Director Foundation: KIMB Transcribe Date/Time: Dec 21 2020 7:08P Dictated by : DEION TRAORE MD This examination was interpreted and the report reviewed and electronically signed by: DEION TRAORE MD on Dec 21 2020 7:10PM EST No results found. IMPRESSION: 1. Mild persistent asthma without complication - ICD9: 493.90, ICD10: J45.30 (primary diagnosis) Mild intermittent Asthma stable - Continue Flovent: 110 mcg 2 puffs twice daily - Albuterol MDI 2 puffs with spacer prn - Avoidance of triggers recommended - Asthma Action Plan reviewed - Check daily peak flows- bring in log on next visit - Flu shot in the fall recommended 2. Idiopathic pulmonary fibrosis (HCC) - ICD9: 516.31, ICD10: J84.112 -Restrictive lung disease, normal DLCO -Normal connective-tissue disease workup -Could not tolerate Ofev -Patient tolerating Esbriet since August 2018 liver function tests normal 3. Chronic respiratory failure with hypoxia (HCC) - ICD9: 518.83, 799.02, ICD10: J96.11 - Continue supplemental oxygen. Currently using 4L NC - DME: [employer] - SIX MINUTE WALK 59.5 % od predicted. Max HR 107 on 2 L O2 4. Obstructive sleep apnea on cpap - Compliant with nightly use and benefiting 5. Gastroesophageal reflux disease, unspecified whether esophagitis present - ICD9: 530.81, ICD10: K21.9 - Discussed lifestyle modifications including losing weight, limiting caffeine, no meals three hours before sleep and head of bed elevation -Well controlled on Nexium 6. Allergic rhinitis, unspecified seasonality, unspecified trigger - ICD9: 477.9, ICD10: J30.9 - Well controlled on Flonase and Maria C 7. Post Covid syndrome Referral to [place] discussed Referral to functional medicine discussed On hold since is hospitalized with hip fracture 8. H/o covid infection November 2020 Did not require hsopitalization documented in this encounter [facility] 10-11-2021 Miscellaneous Notes Please review and advise. documented in this encounter [facility] 10-11-2021 Miscellaneous Notes Last appointment: 05/30/21 Next appointment: 12/05/21 Pharmacy verified in [facility]. Refill(s) requested: Requested Prescriptions Pending Prescriptions Disp Refills triamcinolone acetonide (KENALOG) 0.5 % cream 15 g 1 Sig: Apply to affected area three times daily. Order(s) pended. Please advise. Destiny Asencio LPN documented in this encounter [facility] 10-04-2021 Miscellaneous Notes PDMP website checked and validated. All prescriptions have been APPROPRIATELY filled. No suspicious activity was identified. 10/04/2021 by Brinda Dominguez APRN.[employer] Last appointment: 07-01-21 Next appointment: 12-05-21 Pharmacy verified in [facility]. Refill(s) requested: Pending Prescriptions Disp Refills ALPRAZOLAM 1 MG TABLET 60 tablet 0 Sig: Take 1 tablet by mouth twice daily as needed for sedation or anxiety for up to 30 days. JURGEN Class: C-IV TARYN: No Order(s) pended. Please advise. Aundrea Cordoba MA, FOREST MANAGER documented in this encounter [facility] 09-20-2021 Miscellaneous Notes Pharmacy verified in [facility] Patient has been identified by name and date of : Yes Patient aware RX will be sent to pharmacy. No need to notify patient. Pharmacy phones for refill(s): Pending Prescriptions Disp Refills NORTRIPTYLINE 75 MG CAPSULE 90 capsule 3 Sig: Take 1 capsule by mouth daily at bedtime. TARYN: No Date of last office visit : 05/30/2021 Date of next office visit : 12/05/2021 Last 2 Encounter Wt Readings: Date: Wt: 09/04/2021 65.8 kg (145 lb) 07/24/2021 65.8 kg (145 lb 1.6 oz) Please advise. documented in this encounter [facility] 09-18-2021 Miscellaneous Notes documented in this encounter [facility] 09-05-2021 Miscellaneous Notes PDMP website checked and validated. All prescriptions have been APPROPRIATELY filled. No suspicious activity was identified. 09/05/2021 by Brinda Dominguez APRN.[employer] Last appointment: 07-24-21 Next appointment: na Pharmacy verified in [facility]. Refill(s) requested: Pending Prescriptions Disp Refills ALPRAZOLAM 1 MG TABLET 60 tablet 0 Sig: Take 1 tablet by mouth twice daily as needed for sedation or anxiety for up to 30 days. JURGEN Class: C-IV TARYN: No Order(s) pended. Please advise. Aundrea Cordoba MA, [facility] documented in this encounter [facility] 08-07-2021 Miscellaneous Notes PDMP website checked and validated. All prescriptions have been APPROPRIATELY filled. No suspicious activity was identified. 08/07/2021 by Brinda Dominguez APRN.[employer] Pharmacy verified in [facility] Patient has been identified by name and date of : Yes Patient aware RX will be sent to pharmacy. No need to notify patient. Patient phones for refill(s): Pending Prescriptions Disp Refills ALPRAZOLAM 1 MG TABLET 60 tablet 0 Sig: Take 1 tablet by mouth twice daily as needed for sedation or anxiety for up to 30 days. JURGEN Class: C-IV TARYN: No Date of last office visit : 07/24/2021 Date of next office visit : Visit date not found Last 2 Encounter Wt Readings: Date: Wt: 07/24/2021 65.8 kg (145 lb 1.6 oz) 05/30/2021 65.8 kg (145 lb) Not applicable Please advise. Mraitza Jorgensen LPN documented in this encounter [facility] 07-31-2021 Miscellaneous Notes Disregard. Patient sent an updated mychart and is doing better. Сергей Espinoza MD Please offer patient a 40 min appt this at 220 in the office. Thanks, Сергей Espinoza MD Would allow PCP to address documented in this encounter [facility] 07-24-2021 History of Present illness Narrative ESTABLISHED PATIENT Merna Webster is a 81 year old female presenting for (fatigue). HISTORY OF PRESENT ILLNESS Fatigue started shortly after Covid last year Feels its slowly getting worse Completley worn out After breakfast feels like she needs to go back to bed Cant get anything done Last Nov her and her had covid, then in Nov had to move into assisted living Earlier this month her and her moved out of [place] to an apartment this has been very good for her and her She was very depressed at the [place] and much happier to be out of there. Increased verapamil a couple months ago for headaches and increased BP control and she feels like fatigue has been worse every since this with no improvement in headaches. Does not check BP at home She feels strongly its related to the medication. Last night she took an old 180mg capsule of verapamil to see how she felt today and she felt significantly better today Was able to cook, clean, do laundry, still took a 30 minute nap but this is much shorter than usual Wearing her O2 today because she felt SOB earlier She only wears this occassionally this also seems to help her fatigue She checks O2 levels often at home stays between 93-94 Wears cpap every night with 2l bed in every night, never misses a night this used to seem very beneficial to her however ever since Covid she does not feel as well rested in morning TSH, CMP, CBC, Lipids just checked end of april without abnormalities Does note she does a lot for her , cooks, helps him bathe, has to encourage him to ambulate, big cause of stress for her Does take xanax for anxiety one in AM and one in PM does feel this helps anxiety significantly Has tried to go without in the am to see how her fatigue is but then her anxiety is through the roof No fevers, chills, or night sweats No chest pain, very occasionally feels a heart "flip" usually at night when anxious, this has been for years No increase in SOB from her baseline Does see pulm 08/12 HISTORIES FAMILY HISTORY Problem Relation Age of Onset other (Kidney stones) Father Diabetes Brother Colon Cancer Brother Hypertension Brother COPD Sister PAST MEDICAL HISTORY Diagnosis Date Apnea cpap Asthma Asthma Bowel disease Degeneration of lumbar or lumbosacral intervertebral disc significant Diverticulosis of colon (without mention of hemorrhage) Dysthymic disorder Depression (non-psychotic) Esophageal reflux Gastroesophageal reflux Hypothyroidism 05/22/2016 Migraine Obstructive sleep apnea osteoporosis T11 mild compression. Other and unspecified hyperlipidemia needs med Snoring Thyroid disorder Unspecified essential hypertension Essential hypertension PAST SURGICAL HISTORY Procedure Laterality Date COLONOSCOPY 2006 rpt 2011. had diverticulum. TONSILLECTOMY & ADENOIDECTOMY <AGE 13 Tonsil/adenoidectomy TOTAL ABDOMINAL HYSTERECT W/WO RMVL TUBE OVARY 1993 Hysterectomy, RAPHAEL - menorrhagia & fibroids Social History Tobacco Use Smoking status: Never Smoker Smokeless tobacco: Never Used Substance Use Topics Alcohol use: No Drug use: No Allergies: ALLERGIES Allergen Reactions Rofecoxib Itching heart palpitations,red blotching on face Aspirin heart palpitations Ibuprofen face swells Lisinopril GI Upset Acid reflux Seasonal Allergies Other: See Comments Wil [[place]* Rash Sulfa (Sulfonamide * rash Medications: pirfenidone (ESBRIET) 267 mg capsule TAKE 3 CAPSULES BY MOUTH THREE TIMES A DAY WITH MEALS ALPRAZolam (XANAX) 1 mg tablet Take 1 tablet by mouth twice daily as needed for sedation or anxiety for up to 30 days. verapamil SR (CALAN SR, ISOPTIN SR) 240 mg CR tablet Take 1 tablet by mouth daily at bedtime. esomeprazole (NEXIUM) 40 mg capsule Take 1 capsule by mouth daily before breakfast. levothyroxine (SYNTHROID) 25 mcg tablet Take 1 tablet by mouth once daily. fluticasone (FLONASE) 50 mcg/actuation nasal spray Use 1 [place] in each nostril daily at bedtime. pravastatin (PRAVACHOL) 40 mg tablet Take 1 tablet by mouth daily at bedtime. triamcinolone acetonide (KENALOG) 0.5 % cream Apply to affected area three times daily. fluticasone (FLOVENT HFA) 110 mcg/actuation inhaler Inhale 2 Puffs as instructed twice daily. Inhale by Mouth VENTOLIN HFA 90 mcg/actuation inhaler Inhale 2 Puffs as instructed every 4 hours as needed. nortriptyline (PAMELOR) 75 mg capsule Take 1 capsule by mouth daily at bedtime. fexofenadine (MARIA C) 180 mg tablet Take 180 mg by mouth once daily. albuterol (PROVENTIL) 2.5 mg /3 mL (0.083 %) nebulizer solution Use 3 mL via nebulizer every 4 hours as needed for wheezing/shortness of breath. Use via nebulizer three times daily as needed. OVER 5-15 MINUTES. FOR WHEEZING AND SHORTNESS OF BREATH. diclofenac sodium (VOLTAREN) 1 % topical gel Apply 2 g to affected area four times daily. SUMAtriptan (IMITREX) 100 mg tablet Take 1 tablet by mouth as needed for Migraine Headache (see administration instructions). at onset of headache.May repeat after 2 hours. promethazine (PHENERGAN) 12.5 mg tablet Take 1 tablet by mouth every 6 hours as needed (Headache). CPAP Dispense CPAP 6 cmH2O, mask, tubing, filters, heated humidity, lifetime supplies. Dx: JENNY OXYGEN, HOME THERAPY, Please dispense an oxygen concentrator, a portable oxygen concentrator and all necessary accessories to be used at 2L/min NC with exertion and with sleep. pirfenidone (ESBRIET) 267 mg tablet Take 267 mg by mouth three times daily. COMPOUNDED PRESCRIPTION Please dispense an oxygen concentrator and a portable oxygen concentrator and all necessary accessories to be used at 2L/min NC with exertion. acetaminophen/caffeine (EXCEDRIN ASPIRIN FREE ORAL) Take 2 tablets by mouth as needed. Inhalational Spacing Device (AEROCHAMBER) Spcr 1 Device as directed. REVIEW OF SYSTEMS GENERAL: No weight loss, malaise or fevers. RESPIRATORY: see HPI CARDIOVASCULAR: Negative for chest pain, leg swelling All other systems reviewed and negative other than HPI. PHYSICAL EXAM BP 139/80 Pulse 109 Temp 36.4 C (97.5 F) (Temporal) Resp 16 Wt 65.8 kg (145 lb 1.6 oz) SpO2 95% BMI 26.54 kg/m General: Well developed, well nourished, in no acute distress. Head: Normocephalic, atraumatic. Neck: Supple. Eyes: Normal conjunctiva, no scleral icterus. Lungs: Clear to auscultation bilaterally, no rubs, no wheezing. Cardiac: Regular rate and rhythm. No murmurs, gallops, or rubs. Extremities: No edema. ASSESSMENT: (R53.83) Fatigue, unspecified type (primary encounter diagnosis) (I10) Essential hypertension (G47.33) Obstructive sleep apnea (F41.9) Anxiety PLAN: -can try to go back to 180mg verapamil since patient feels she had much more energy today with going back to that dose last night -has 180mg capsules still at home she will use up -advise taking blood pressures regularly at home to be sure not elevating, pt. Verbalizes understanding -f/u in two weeks on BP and fatigue since changing medication -advised patient to let us know sooner if blood pressures climbing -would also consider pap titration study if no improvement -anxiety and stress also likely playing a factor. had discussion with patient about the effect mood and stress can have on fatigue. Patient will work on making time in her day for things she enjoys to "fill her cup back up" as caregiver fatigue also very likely a component here Kenyon Zuniga APRN.[employer] BP CONTROLLED (<130/80) Never done COVID-19 VACCINE(4 - Booster for Pfizer series) due on 07/04/2021 documented in this encounter [facility] 07-23-2021 Miscellaneous Notes See nurse triage encounter Please triage documented in this encounter [facility] 07-23-2021 Miscellaneous Notes See nurse triage encounter documented in this encounter [facility] 07-23-2021 Miscellaneous Notes Fatigue since Goes to bed 11-11:30pm, wakes once for bathroom, returns to bed, wakes 10:30-11am When wakes in morning does not feel rested. Compliant with C-Pap, 2L O2 bleed, checks pulse ox regularly and is 94% or greater Takes daily hour and half afternoon nap No new activities or changes to diet, bowel/bladder habits Able to care for self and ADL's Verapamil dose was changed from 180mg to 240mg in May. Care advice - see provider within 2 weeks. Assisted with scheduling next day appointment. Advised to call back with new or worsening symptoms. Reason for Disposition Fatigue is a chronic symptom (recurrent or ongoing AND present > 4 weeks) Answer Assessment - Initial Assessment Questions 1. DESCRIPTION: "no pep" "dont want to get up, dont want to do nothing" 2. SEVERITY: Mild, able to do ADL's 3. ONSET: Mid April 4. CAUSE: "Covid?" 5. MEDICINES Dose adjustment to verapamil 6. OTHER SYMPTOMS: Cough, chronic pulmonary fibrosis 7. : NA Protocols used: WEAKNESS (GENERALIZED) AND [id number] Called patient at [phone], no answer. Left message explaining that PCP message would be sent via MY Chart for review. Advised she respond via MY Chart with questions or call the office at [phone] to discuss with Triage. Sabine Goyal RN Tried patient and husbands number, asked her to CB. Left message for patient to return call. Pt sent MC message because she was unable to reach triage. Called back, no answer - left VM Unable to reach, asked her to CB Left message to return call for nurse triage See notation below Сергей Espinoza, MDPhysicianSigned 2:11 PM Addend Please let patient know I am going to consult the social insurance adviser to see what she can do to help. Her find a new assisted living. Is she noticing any benefit from the xanax with the anxiety? Would counseling help her? I am going ot increase her verapamil to 240mg to see if that helps with the headaches and blood pressure. Thanks, Сергей Espinoza MD message: Merna Webster, Сергей Salguero MD 2 days ago Couldn t get in touch with you you would call and l kept missing it so l will try again. The answer to Dr Espinoza question Dr Cobian put me on Verapimal to take at bed time why l don t know but my headaches are pretty bad at times. I do feel trapped as to where we are living l get very up tight because we don t get out a lot and l don t like that. 2. I do get depressed because l am missing my kids two are and the oldest is a jerk l don t even talk to him because he is bully. 3 l just want to be happy and l can t because of our situation the reason being l didn t know what the covid sickness would end to be but Zach is really doing good except for his walking l bring up therapy and he doesn t what to hear about so l am stuck between a rock and a hard place l will tell you l am going to do my hardest to get out of here l am so anxious sometimes l could yell but l don t anyway can you help and tell me what to do l am looking for a place to call home ok thank you Merna Webster documented in this encounter [facility] 07-22-2021 Miscellaneous Notes Pharmacy faxed requesting the following refill. Rx was filled 2 weeks ago but sent to [facility] in [place]. Please sent to [facility]. Pending Prescriptions Disp Refills PIRFENIDONE 267 MG CAPSULE 270 capsule 3 Sig: TAKE 3 CAPSULES BY MOUTH THREE TIMES A DAY WITH MEALS TARYN: No Patient last appointment: 07/04/2021 Patient Phone numbers: [phone] (home) Request is for script(s) to be escript to pharmacy. Sirisha Adams documented in this encounter [facility] 07-08-2021 Miscellaneous Notes PDMP website checked and validated. All prescriptions have been APPROPRIATELY filled. No suspicious activity was identified. 07/08/2021 by Brinda Dominguez APRN.INSPECTOR E[employer]GL[employer] Patient has been identified by name and date of : Yes Pending Prescriptions Disp Refills ALPRAZOLAM 1 MG TABLET 60 tablet 0 Sig: Take 1 tablet by mouth twice daily as needed for sedation or anxiety for up to 30 days. JURGEN Class: C-IV TARYN: No RX INSTRUCTIONS: Patient aware RX will be sent to pharmacy. No need to notify patient. Niranjan Ocampo Ma documented in this encounter [facility] 07-04-2021 Miscellaneous Notes esbriet refill documented in this encounter [facility] 07-02-2021 Miscellaneous Notes Last appointment: 05/30/21 Next appointment: N/A Pharmacy verified in [facility]. Refill(s) requested: Pending Prescriptions Disp Refills LEVOTHYROXINE 25 MCG TABLET 90 tablet 3 Sig: Take 1 tablet by mouth once daily. TARYN: No Order(s) pended. Please advise. Lauren Garcia LPN, CMA documented in this encounter [facility] 06-11-2021 Miscellaneous Notes Last appointment: 05/30/21 Next appointment: N/A Pharmacy verified in [facility]. Refill(s) requested: Pending Prescriptions Disp Refills PRAVASTATIN 40 MG TABLET 90 tablet 3 Sig: Take 1 tablet by mouth daily at bedtime. TARYN: No Order(s) pended. Please advise. Lauren Garcia LPN, CMA documented in this encounter [facility] 06-10-2021 Miscellaneous Notes Received forms back from provider, faxed to [facility]. Transmission successful. Paperwork in fax drawer. Received forms from Carol regarding O2 Letter of medical Necessity renewal . Placed on providers desk/folder for review/signature. Please return back to nurse to complete. documented in this encounter [facility] 06-07-2021 History of Present illness Narrative PRIMARY CARE SOCIAL WORK PROGRESS NOTE Provider Action / FYI PCP Action PLEASE SEE BELOW SERVICE DATE: June 07, 2021 SERVICE TIME: 2:55 PM REASON FOR CONTACT: Transition of Care Progress Note: PCSW order from PCP Patient needs help finding a new assisted living. PCSW reviewed Pt chart. Per 06/06/21 Nurse Triage "Please let patient know I am going to consult the social insurance adviser to see what she can do to help. Her find a new assisted living. Couldn t get in touch with you you would call and l kept missing it so l will try again. The answer to Dr sEpinoza question Dr Cobian put me on Verapimal to take at bed time why l don t know but my headaches are pretty bad at times. I do feel trapped as to where we are living l get very up tight because we don t get out a lot and l don t like that. 2. I do get depressed because l am missing my kids two are and the oldest is a jerk l don t even talk to him because he is bully. 3 l just want to be happy and l can t because of our situation the reason being l didn t know what the covid sickness would end to be but Zach is really doing good except for his walking l bring up therapy and he doesn t what to hear about so l am stuck between a rock and a hard place l will tell you l am going to do my hardest to get out of here l am so anxious sometimes l could yell but l don t anyway can you help and tell me what to do l am looking for a place to call home ok thank you Merna Webster " PCSW introduced self to Pt and explained calling from PCP office to assist with relocating. Pt stated that she does not like it there. Pt stated she is not interested "in another AL or anything like that". Pt stated that "we saw a one floor apartment and our granddaughter will move in with us and I can get insurance to help with my care and since it's one floor it will be easy with the wheelchair". PCSW stated that since they found a place then wondered what PCSW role is and the phone disconnected. I called back and it was still connected and I could hear Pt and she stated to her that "Olga had social insurance adviser call and I don't want to talk to a social insurance adviser". I called back and it went directly to . This movie writer left VM calling because Pt called office asking for assistance with finding new location and PCSW will remain available to assist with resources and provided name and number. Did you receive information on your AVS about the [facility]? N/A Did you like receiving this information? N/A Patient reported caregiver was able to meet their needs today? N/A INTERVENTION: [facility] - External Resource Time Spent:: 10 minutes SIGNATURE: JAIRON Cerrato PATIENT NAME: Merna Webster DATE: June 07, 2021 TIME: 3:06 PM CONTACT #: [phone] documented in this encounter [facility] 06-07-2021 Miscellaneous Notes PDMP website checked and validated. All prescriptions have been APPROPRIATELY filled. No suspicious activity was identified. 06/07/2021 by Brinda Dominguez APRN.TREVA Last appointment: 05/30/21 Next appointment: n/a Pharmacy verified in [facility]. Refill(s) requested: Pending Prescriptions Disp Refills ALPRAZOLAM 1 MG TABLET 60 tablet 0 Sig: Take 1 tablet by mouth twice daily as needed for sedation or anxiety for up to 30 days. JURGEN Class: C-IV TARYN: No Order(s) pended. Please advise. Destiny Asencio LPN documented in this encounter [facility] 06-06-2021 Miscellaneous Notes See nurse triage encounter Please let patient know I am going to consult the social insurance adviser to see what she can do to help. Her find a new assisted living. Is she noticing any benefit from the xanax with the anxiety? Would counseling help her? I am going ot increase her verapamil to 240mg to see if that helps with the headaches and blood pressure. Thanks, Сергей Espinoza MD Please review 05/31/21 MYChart encounter and advise if you would still like to increase Verapamil dosage? Sabine Goyal RN documented in this encounter [facility] 06-04-2021 Miscellaneous Notes Addressed in alternate encounter. Sabine Goyal RN Called pt at [phone], no answer. LM requesting CB to speak with nurse triage. Please review and advise documented in this encounter [facility] 05-31-2021 Miscellaneous Notes Left message on for return call documented in this encounter [facility] 05-30-2021 History of Present illness Narrative ESTABLISHED PATIENT Merna Webster is a 81 year old female presenting for Follow Up. HISTORY OF PRESENT ILLNESS Patient is starting to develop headaches this last month. Patient headache would go down neck and into shoulders. Excedrin at first would help and then stopped helping. Whole head headache. Was taking sinus medication which really helped. Has IPF. On esbriet. Sees pulm. On oxygen. Uses CPAP. Patient using and benefiting from use. Hyperlipidemia Follow up Taking daily: Yes Trying to eat a diet low in saturated fat and cholesterol: Yes LDL Cholesterol 68 11/03/2019 LDL Cholesterol 59 07/24/2018 LDL Cholesterol 67 04/10/2017 HDL Cholesterol 59 11/03/2019 HDL Cholesterol 50 07/24/2018 HDL Cholesterol 55 04/10/2017 Triglyceride 161 11/03/2019 Triglyceride 171 07/24/2018 Triglyceride 202 04/10/2017 Cholesterol, Total 159 11/03/2019 Cholesterol, Total 143 07/24/2018 Cholesterol, Total 162 04/10/2017 AST 18 12/10/2020 ALT 11 12/10/2020 Hypothyroidism Follow Up: Symptoms of uncontrolled hypothyroidism: No Compliant with medication: Yes Taking levothyroxine appropriately: Yes TSH 2.370 09/17/2020 TSH 4.790 11/03/2019 TSH 3.090 03/15/2019 Depression follow up: Mood: Stable Suicidal Thoughts: No Missed Doses: No Chronic Benzodiazapine Use Used for: Anxiety Medication: Xanax Improves quality of life: Yes Amount used per day: 1-2 ASSESSMENT: (J84.112) Idiopathic pulmonary fibrosis (HCC) (primary encounter diagnosis) (J96.11) Chronic respiratory failure with hypoxia (HCC) (R51.9) Nonintractable headache, unspecified chronicity pattern, unspecified headache type (F41.9) Anxiety (F51.01) Primary insomnia (G47.33) Obstructive sleep apnea (F33.42) Recurrent major depressive disorder, in full remission (HCC) (E78.00) Pure hypercholesterolemia (E03.9) Acquired hypothyroidism PLAN: Continue current meds Refills Labs ordered Continue follow up with pulm and oxygen and inhalers Headache imprved. Improved with sinus medicine, likely sinus infection. Cont cpap HISTORIES FAMILY HISTORY Problem Relation Age of Onset other (Kidney stones) Father Diabetes Brother Colon Cancer Brother Hypertension Brother COPD Sister PAST MEDICAL HISTORY Diagnosis Date Apnea cpap Asthma Asthma Bowel disease Degeneration of lumbar or lumbosacral intervertebral disc significant Diverticulosis of colon (without mention of hemorrhage) Dysthymic disorder Depression (non-psychotic) Esophageal reflux Gastroesophageal reflux Hypothyroidism 05/22/2016 Migraine Obstructive sleep apnea osteoporosis T11 mild compression. Other and unspecified hyperlipidemia needs med Snoring Thyroid disorder Unspecified essential hypertension Essential hypertension PAST SURGICAL HISTORY Procedure Laterality Date COLONOSCOPY 2006 rpt 2011. had diverticulum. REMOVE TONSILS/ADENOIDS,<12 Y/O Tonsil/adenoidectomy TOTAL ABDOM HYSTERECTOMY 1993 Hysterectomy, RAPHAEL - menorrhagia & fibroids Social History Tobacco Use Smoking status: Never Smoker Smokeless tobacco: Never Used Substance Use Topics Alcohol use: No Drug use: No Allergies: ALLERGIES Allergen Reactions Rofecoxib Itching heart palpitations,red blotching on face Aspirin heart palpitations Ibuprofen face swells Lisinopril GI Upset Acid reflux Seasonal Allergies Other: See Comments Singulair [[place]* Rash Sulfa (Sulfonamide * rash Medications: ALPRAZolam (XANAX) 1 mg tablet Take 1 tablet by mouth twice daily as needed for sedation or anxiety for up to 30 days. ESBRIET 267 mg capsule TAKE 3 CAPSULES BY MOUTH THREE TIMES A DAY WITH MEALS fluticasone (FLOVENT HFA) 110 mcg/actuation inhaler Inhale 2 Puffs as instructed twice daily. Inhale by Mouth VENTOLIN HFA 90 mcg/actuation inhaler Inhale 2 Puffs as instructed every 4 hours as needed. nortriptyline (PAMELOR) 75 mg capsule Take 1 capsule by mouth daily at bedtime. esomeprazole (NEXIUM) 40 mg capsule Take 1 capsule by mouth daily before breakfast. fexofenadine (MARIA C) 180 mg tablet Take 180 mg by mouth once daily. albuterol (PROVENTIL) 2.5 mg /3 mL (0.083 %) nebulizer solution Use 3 mL via nebulizer every 4 hours as needed for wheezing/shortness of breath. Use via nebulizer three times daily as needed. OVER 5-15 MINUTES. FOR WHEEZING AND SHORTNESS OF BREATH. levothyroxine (SYNTHROID) 25 mcg tablet Take 1 tablet by mouth once daily. pravastatin (PRAVACHOL) 40 mg tablet Take 1 tablet by mouth daily at bedtime. fluticasone (FLONASE) 50 mcg/actuation nasal spray Use 1 [place] in each nostril daily at bedtime. diclofenac sodium (VOLTAREN) 1 % topical gel Apply 2 g to affected area four times daily. SUMAtriptan (IMITREX) 100 mg tablet Take 1 tablet by mouth as needed for Migraine Headache (see administration instructions). at onset of headache.May repeat after 2 hours. promethazine (PHENERGAN) 12.5 mg tablet Take 1 tablet by mouth every 6 hours as needed (Headache). CPAP Dispense CPAP 6 cmH2O, mask, tubing, filters, heated humidity, lifetime supplies. Dx: JENNY OXYGEN, HOME THERAPY, Please dispense an oxygen concentrator, a portable oxygen concentrator and all necessary accessories to be used at 2L/min NC with exertion and with sleep. pirfenidone (ESBRIET) 267 mg tablet Take 267 mg by mouth three times daily. COMPOUNDED PRESCRIPTION Please dispense an oxygen concentrator and a portable oxygen concentrator and all necessary accessories to be used at 2L/min NC with exertion. acetaminophen/caffeine (EXCEDRIN ASPIRIN FREE ORAL) Take 2 tablets by mouth as needed. Inhalational Spacing Device (AEROCHAMBER) Spcr 1 Device as directed. predniSONE (DELTASONE) 10 mg tablet Take PO 4 tablets x 3 days, then 3 tablets x 3 days, then 2 tablets x 3 days, 1 tablets x 3 days doxycycline monohydrate (MONODOX) 100 mg capsule Take 1 capsule by mouth twice daily. benzonatate (TESSALON PERLES) 100 mg capsule Take 1 capsule by mouth three times daily as needed for cough for up to 30 doses. verapamil SR (CALAN SR, ISOPTIN SR) 180 mg CR tablet Take 1 tablet by mouth daily at bedtime. REVIEW OF SYSTEMS GENERAL: No weight loss, malaise or fevers. RESPIRATORY: Negative for cough, hemoptysis, wheezing or shortness of breath. CARDIOVASCULAR: Negative for chest pain, leg swelling or palpitations. All other systems reviewed and negative other than HPI. PHYSICAL EXAM BP 150/78 Pulse 101 Temp 36.8 C (98.3 F) Resp 16 Ht 157.5 cm (5' 2") Wt 65.8 kg (145 lb) SpO2 95% BMI 26.52 kg/m General: Well developed, well nourished, in no acute distress. Head: Normocephalic, atraumatic. Neck: Supple. Eyes: Normal conjunctiva, no scleral icterus. Lungs: diffuse crackles Cardiac: Regular rate and rhythm. No murmurs, gallops, or rubs. Extremities: No edema. Серегй Espinoza MD BP CONTROLLED (<130/80) Never done INFLUENZA(1) due on 10/31/2020 ADVANCE DIRECTIVE DISCUSSION Never done documented in this encounter [facility] 05-30-2021 Instructions Callie Taylor - 05/30/2021 2:25 PM EDT [facility] BUILDING LAB TEST INFORMATION [facility] BUILDING LAB HOURS: Lab is open: 7:30am to 5:00pm - , 7:30am to 4:00pm on Thu and 8am -12pm on Thu. The lab is located in [facility] on the first floor. There is a registration window at the lab, available 7 am to 3 pm Thursday. If registration is unavailable at the lab, you may register at the patient registration office near the front lobby of the hospital. SCHEDULING A LAB APPOINTMENT: Laboratory appointments are recommended.Walk ins are still accepted. Call [phone] or schedule via [employer] scheduling ticket. ROUTINE LAB ORDERS 60 days after they are entered. If your lab orders , you may be required to wait in the lab while they are reinstated FUTURE ORDERS are lab tests to be completed on the EXPECTED date. These orders 60 days after the expected date. STANDING ORDERS are recurring orders with an expiration date. The interval will indicate how often the test should be completed. CT / MRI / IVP If you have lab tests ordered for one of these radiology exams, please complete the blood work at least one day prior to the scheduled exam. PRESCRIPTION REFILL REQUESTS Request prescription refills through your [employer] account or contact your Pharmacy. My Chart Schedule My Appointment enables you to view your established primary care provider's open schedule and book an appointment online in real-time. This feature is available in internal medicine, family medicine, or pediatrics at any of our [facility] locations and main campus. documented in this encounter [facility] 05-22-2016 History of Past i llness Narrative Problem Noted Date Resolved Date Dysphagia 05/22/2016 01/21/2017 Ischemic colon 06/02/2012 04/23/2017 Colonic mass 06/02/2012 04/23/2017 Unspecified sleep apnea 01/04/2008 07/23/19 18 Overview: DME: [facility] # [phone]; fax# [phone] Lumbago 09/10/2007 04/23/2017 Sprain of neck 09/10/2007 07/22/2017 Pathologic fracture of vertebrae 10/13/2005 07/22/2017 Backache, unspecified 09/24/2005 04/23/2017 Thoracic or lumbosacral neuritis or radiculitis, unspecified 09/24/2005 07/22/2017 Pes anserinus tendinitis or bursitis 09/04/2005 07/22/2017 Overview: RT Rotator cuff (capsule) sprain 06/21/2003 osteoporosis 04/23/2017 Apnea 12/05/2015 Overview: cpap Thyroid disorder 04/23/2017 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: Depression (non-psychotic) documented as of this encounter (statuses as of 05/31/2021) [facility] History of Past illness Narrative* Problem Noted Date Resolved Date Dysphagia 05/22/2016 01/21/2017 Ischemic colon 06/02/2012 04/23/2017 Colonic mass 06/02/2012 04/23/2017 Unspecified sleep apnea 01/04/2008 07/23/19 18 Overview: DME: [facility]# [phone]; fax# [phone] Lumbago 09/10/2007 04/23/2017 Sprain of neck 09/10/2007 07/22/2017 Pathologic fracture of vertebrae 10/13/2005 07/22/2017 Backache, unspecified 09/24/2005 04/23/2017 Thoracic or lumbosacral neuritis or radiculitis, unspecified 09/24/2005 07/22/2017 Pes anserinus tendinitis or bursitis 09/04/2005 07/22/2017 Overview: RT Rotator cuff (capsule) sprain 06/21/2003 osteoporosis 04/23/2017 Apnea 12/05/2015 Overview: cpap Thyroid disorder 04/23/2017 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: Depression (non-psychotic) documented as of this encounter (statuses as of 05/31/2021) [facility] History of Past illness Narrative* Problem Noted Date Resolved Date Dysphagia 05/22/2016 01/21/2017 Ischemic colon 06/02/2012 04/23/2017 Colonic mass 06/02/2012 04/23/2017 Unspecified sleep apnea 01/04/2008 07/23/19 18 Overview: DME: [facility]# [phone]; fax# [phone] Lumbago 09/10/2007 04/23/2017 Sprain of neck 09/10/2007 07/22/2017 Pathologic fracture of vertebrae 10/13/2005 07/22/2017 Backache, unspecified 09/24/2005 04/23/2017 Thoracic or lumbosacral neuritis or radiculitis, unspecified 09/24/2005 07/22/2017 Pes anserinus tendinitis or bursitis 09/04/2005 07/22/2017 Overview: RT Rotator cuff (capsule) sprain 06/21/2003 osteoporosis 04/23/2017 Apnea 12/05/2015 Overview: cpap Thyroid disorder 04/23/2017 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: Depression (non-psychotic) documented as of this encounter (statuses as of 06/04/2021) [facility] History of Past illness Narrative* Problem Noted Date Resolved Date Dysphagia 05/22/2016 01/21/2017 Ischemic colon 06/02/2012 04/23/2017 Colonic mass 06/02/2012 04/23/2017 Unspecified sleep apnea 01/04/2008 07/23/19 18 Overview: DME: [facility]# [phone]; fax# [phone] Lumbago 09/10/2007 04/23/2017 Sprain of neck 09/10/2007 07/22/2017 Pathologic fracture of vertebrae 10/13/2005 07/22/2017 Backache, unspecified 09/24/2005 04/23/2017 Thoracic or lumbosacral neuritis or radiculitis, unspecified 09/24/2005 07/22/2017 Pes anserinus tendinitis or bursitis 09/04/2005 07/22/2017 Overview: RT Rotator cuff (capsule) sprain 06/21/2003 osteoporosis 04/23/2017 Apnea 12/05/2015 Overview: cpap Thyroid disorder 04/23/2017 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: Depression (non-psychotic) documented as of this encounter (statuses as of 06/06/2021) [facility] History of Past illness Narrative* Problem Noted Date Resolved Date Dysphagia 05/22/2016 01/21/2017 Ischemic colon 06/02/2012 04/23/2017 Colonic mass 06/02/2012 04/23/2017 Unspecified sleep apnea 01/04/2008 07/23/19 18 Overview: DME: [facility]# [phone]; fax# [phone] Lumbago 09/10/2007 04/23/2017 Sprain of neck 09/10/2007 07/22/2017 Pathologic fracture of vertebrae 10/13/2005 07/22/2017 Backache, unspecified 09/24/2005 04/23/2017 Thoracic or lumbosacral neuritis or radiculitis, unspecified 09/24/2005 07/22/2017 Pes anserinus tendinitis or bursitis 09/04/2005 07/22/2017 Overview: RT Rotator cuff (capsule) sprain 06/21/2003 osteoporosis 04/23/2017 Apnea 12/05/2015 Overview: cpap Thyroid disorder 04/23/2017 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: Depression (non-psychotic) documented as of this encounter (statuses as of 06/07/2021) [facility] History of Past illness Narrative* Problem Noted Date Resolved Date Dysphagia 05/22/2016 01/21/2017 Ischemic colon 06/02/2012 04/23/2017 Colonic mass 06/02/2012 04/23/2017 Unspecified sleep apnea 01/04/2008 07/23/19 18 Overview: DME: [facility] # [phone]; fax# [phone] Lumbago 09/10/2007 04/23/2017 Sprain of neck 09/10/2007 07/22/2017 Pathologic fracture of vertebrae 10/13/2005 07/22/2017 Backache, unspecified 09/24/2005 04/23/2017 Thoracic or lumbosacral neuritis or radiculitis, unspecified 09/24/2005 07/22/2017 Pes anserinus tendinitis or bursitis 09/04/2005 07/22/2017 Overview: RT Rotator cuff (capsule) sprain 06/21/2003 osteoporosis 04/23/2017 Apnea 12/05/2015 Overview: cpap Thyroid disorder 04/23/2017 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: Depression (non-psychotic) documented as of this encounter (statuses as of 06/07/2021) [facility] History of Past illness Narrative* Problem Noted Date Resolved Date Dysphagia 05/22/2016 01/21/2017 Ischemic colon 06/02/2012 04/23/2017 Colonic mass 06/02/2012 04/23/2017 Unspecified sleep apnea 01/04/2008 07/23/19 18 Overview: DME: [facility]# [phone]; fax# [phone] Lumbago 09/10/2007 04/23/2017 Sprain of neck 09/10/2007 07/22/2017 Pathologic fracture of vertebrae 10/13/2005 07/22/2017 Backache, unspecified 09/24/2005 04/23/2017 Thoracic or lumbosacral neuritis or radiculitis, unspecified 09/24/2005 07/22/2017 Pes anserinus tendinitis or bursitis 09/04/2005 07/22/2017 Overview: RT Rotator cuff (capsule) sprain 06/21/2003 osteoporosis 04/23/2017 Apnea 12/05/2015 Overview: cpap Thyroid disorder 04/23/2017 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: Depression (non-psychotic) documented as of this encounter (statuses as of 06/10/2021) [facility] History of Past illness Narrative* Problem Noted Date Resolved Date Dysphagia 05/22/2016 01/21/2017 Ischemic colon 06/02/2012 04/23/2017 Colonic mass 06/02/2012 04/23/2017 Unspecified sleep apnea 01/04/2008 07/23/19 18 Overview: DME: [facility]# [phone]; fax# [phone] Lumbago 09/10/2007 04/23/2017 Sprain of neck 09/10/2007 07/22/2017 Pathologic fracture of vertebrae 10/13/2005 07/22/2017 Backache, unspecified 09/24/2005 04/23/2017 Thoracic or lumbosacral neuritis or radiculitis, unspecified 09/24/2005 07/22/2017 Pes anserinus tendinitis or bursitis 09/04/2005 07/22/2017 Overview: RT Rotator cuff (capsule) sprain 06/21/2003 osteoporosis 04/23/2017 Apnea 12/05/2015 Overview: cpap Thyroid disorder 04/23/2017 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: Depression (non-psychotic) documented as of this encounter (statuses as of 06/11/2021) [facility] History of Past illness Narrative* Problem Noted Date Resolved Date Dysphagia 05/22/2016 01/21/2017 Ischemic colon 06/02/2012 04/23/2017 Colonic mass 06/02/2012 04/23/2017 Unspecified sleep apnea 01/04/2008 07/23/19 Overview: DME: [facility] # [phone]; fax# [phone] Lumbago 09/10/2007 04/23/2017 Sprain of neck 09/10/2007 07/22/2017 Pathologic fracture of vertebrae 10/13/2005 07/22/2017 Backache, unspecified 09/24/2005 04/23/2017 Thoracic or lumbosacral neuritis or radiculitis, unspecified 09/24/2005 07/22/2017 Pes anserinus tendinitis or bursitis 09/04/2005 07/22/2017 Overview: RT Rotator cuff (capsule) sprain 06/21/2003 osteoporosis 04/23/2017 Apnea 12/05/2015 Overview: cpap Thyroid disorder 04/23/2017 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: Depression (non-psychotic) documented as of this encounter (statuses as of 07/02/2021) [facility] History of Past illness Narrative* Problem Noted Date Resolved Date Dysphagia 05/22/2016 01/21/2017 Ischemic colon 06/02/2012 04/23/2017 Colonic mass 06/02/2012 04/23/2017 Unspecified sleep apnea 01/04/2008 07/23/19 18 Overview: DME: [facility]# [phone]; fax# [phone] Lumbago 09/10/2007 04/23/2017 Sprain of neck 09/10/2007 07/22/2017 Pathologic fracture of vertebrae 10/13/2005 07/22/2017 Backache, unspecified 09/24/2005 04/23/2017 Thoracic or lumbosacral neuritis or radiculitis, unspecified 09/24/2005 07/22/2017 Pes anserinus tendinitis or bursitis 09/04/2005 07/22/2017 Overview: RT Rotator cuff (capsule) sprain 06/21/2003 osteoporosis 04/23/2017 Apnea 12/05/2015 Overview: cpap Thyroid disorder 04/23/2017 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: Depression (non-psychotic) documented as of this encounter (statuses as of 07/04/2021) [facility]03[facility]2017 History of Past illness Narrative* Problem Noted Date Resolved Date Dysphagia 05/22/2016 01/21/2017 Ischemic colon 06/02/2012 04/23/2017 Colonic mass 06/02/2012 04/23/2017 Unspecified sleep apnea 01/04/2008 07/23/19 18 Overview: DME: [facility]# [phone]; fax# [phone] Lumbago 09/10/2007 04/23/2017 Sprain of neck 09/10/2007 07/22/2017 Pathologic fracture of vertebrae 10/13/2005 07/22/2017 Backache, unspecified 09/24/2005 04/23/2017 Thoracic or lumbosacral neuritis or radiculitis, unspecified 09/24/2005 07/22/2017 Pes anserinus tendinitis or bursitis 09/04/2005 07/22/2017 Overview: RT Rotator cuff (capsule) sprain 06/21/2003 osteoporosis 04/23/2017 Apnea 12/05/2015 Overview: cpap Thyroid disorder 04/23/2017 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: Depression (non-psychotic) documented as of this encounter (statuses as of 07/08/2021) [facility]2017 History of Past illness Narrative* Problem Noted Date Resolved Date Dysphagia 05/22/2016 01/21/2017 Ischemic colon 06/02/2012 04/23/2017 Colonic mass 06/02/2012 04/23/2017 Unspecified sleep apnea 01/04/2008 07/23/19 18 Overview: DME: [facility] # [phone]; fax# [phone] Lumbago 09/10/2007 04/23/2017 Sprain of neck 09/10/2007 07/22/2017 Pathologic fracture of vertebrae 10/13/2005 07/22/2017 Backache, unspecified 09/24/2005 04/23/2017 Thoracic or lumbosacral neuritis or radiculitis, unspecified 09/24/2005 07/22/2017 Pes anserinus tendinitis or bursitis 09/04/2005 07/22/2017 Overview: RT Rotator cuff (capsule) sprain 06/21/2003 osteoporosis 04/23/2017 Apnea 12/05/2015 Overview: cpap Thyroid disorder 04/23/2017 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: Depression (non-psychotic) documented as of this encounter (statuses as of 07/22/2021) [facility]2017 History of Past illness Narrative* Problem Noted Date Resolved Date Dysphagia 05/22/2016 01/21/2017 Ischemic colon 06/02/2012 04/23/2017 Colonic mass 06/02/2012 04/23/2017 Unspecified sleep apnea 01/04/2008 07/23/19 18 Overview: DME: [facility]# [phone]; fax# [phone] Lumbago 09/10/2007 04/23/2017 Sprain of neck 09/10/2007 07/22/2017 Pathologic fracture of vertebrae 10/13/2005 07/22/2017 Backache, unspecified 09/24/2005 04/23/2017 Thoracic or lumbosacral neuritis or radiculitis, unspecified 09/24/2005 07/22/2017 Pes anserinus tendinitis or bursitis 09/04/2005 07/22/2017 Overview: RT Rotator cuff (capsule) sprain 06/21/2003 osteoporosis 04/23/2017 Apnea 12/05/2015 Overview: cpap Thyroid disorder 04/23/2017 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: Depression (non-psychotic) documented as of this encounter (statuses as of 07/23/2021) [facility]2017 History of Past illness Narrative* Problem Noted Date Resolved Date Dysphagia 05/22/2016 01/21/2017 Ischemic colon 06/02/2012 04/23/2017 Colonic mass 06/02/2012 04/23/2017 Unspecified sleep apnea 01/04/2008 07/23/19 18 Overview: DME: [facility]# [phone]; fax# [phone] Lumbago 09/10/2007 04/23/2017 Sprain of neck 09/10/2007 07/22/2017 Pathologic fracture of vertebrae 10/13/2005 07/22/2017 Backache, unspecified 09/24/2005 04/23/2017 Thoracic or lumbosacral neuritis or radiculitis, unspecified 09/24/2005 07/22/2017 Pes anserinus tendinitis or bursitis 09/04/2005 07/22/2017 Overview: RT Rotator cuff (capsule) sprain 06/21/2003 osteoporosis 04/23/2017 Apnea 12/05/2015 Overview: cpap Thyroid disorder 04/23/2017 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: Depression (non-psychotic) documented as of this encounter (statuses as of 07/23/2021) [facility]2017 History of Past illness Narrative* Problem Noted Date Resolved Date Dysphagia 05/22/2016 01/21/2017 Ischemic colon 06/02/2012 04/23/2017 Colonic mass 06/02/2012 04/23/2017 Unspecified sleep apnea 01/04/2008 07/23/19 18 Overview: DME: [facility] # [phone]; fax# [phone] Lumbago 09/10/2007 04/23/2017 Sprain of neck 09/10/2007 07/22/2017 Pathologic fracture of vertebrae 10/13/2005 07/22/2017 Backache, unspecified 09/24/2005 04/23/2017 Thoracic or lumbosacral neuritis or radiculitis, unspecified 09/24/2005 07/22/2017 Pes anserinus tendinitis or bursitis 09/04/2005 07/22/2017 Overview: RT Rotator cuff (capsule) sprain 06/21/2003 osteoporosis 04/23/2017 Apnea 12/05/2015 Overview: cpap Thyroid disorder 04/23/2017 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: Depression (non-psychotic) documented as of this encounter (statuses as of 07/24/2021) [facility]2017 History of Past illness Narrative* Problem Noted Date Resolved Date Dysphagia 05/22/2016 01/21/2017 Ischemic colon 06/02/2012 04/23/2017 Colonic mass 06/02/2012 04/23/2017 Unspecified sleep apnea 01/04/2008 07/23/19 18 Overview: DME: [facility]# [phone]; fax# [phone] Lumbago 09/10/2007 04/23/2017 Sprain of neck 09/10/2007 07/22/2017 Pathologic fracture of vertebrae 10/13/2005 07/22/2017 Backache, unspecified 09/24/2005 04/23/2017 Thoracic or lumbosacral neuritis or radiculitis, unspecified 09/24/2005 07/22/2017 Pes anserinus tendinitis or bursitis 09/04/2005 07/22/2017 Overview: RT Rotator cuff (capsule) sprain 06/21/2003 osteoporosis 04/23/2017 Apnea 12/05/2015 Overview: cpap Thyroid disorder 04/23/2017 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: Depression (non-psychotic) documented as of this encounter (statuses as of 07/25/2021) [facility]2017 History of Past illness Narrative* Problem Noted Date Resolved Date Dysphagia 05/22/2016 01/21/2017 Ischemic colon 06/02/2012 04/23/2017 Colonic mass 06/02/2012 04/23/2017 Unspecified sleep apnea 01/04/2008 07/23/19 18 Overview: DME: [facility]# [phone]; fax# [phone] Lumbago 09/10/2007 04/23/2017 Sprain of neck 09/10/2007 07/22/2017 Pathologic fracture of vertebrae 10/13/2005 07/22/2017 Backache, unspecified 09/24/2005 04/23/2017 Thoracic or lumbosacral neuritis or radiculitis, unspecified 09/24/2005 07/22/2017 Pes anserinus tendinitis or bursitis 09/04/2005 07/22/2017 Overview: RT Rotator cuff (capsule) sprain 06/21/2003 osteoporosis 04/23/2017 Apnea 12/05/2015 Overview: cpap Thyroid disorder 04/23/2017 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: Depression (non-psychotic) documented as of this encounter (statuses as of 07/31/2021) [facility]2017 History of Past illness Narrative* Problem Noted Date Resolved Date Dysphagia 05/22/2016 01/21/2017 Ischemic colon 06/02/2012 04/23/2017 Colonic mass 06/02/2012 04/23/2017 Unspecified sleep apnea 01/04/2008 07/23/19 18 Overview: DME: [facility] # [phone]; fax# [phone] Lumbago 09/10/2007 04/23/2017 Sprain of neck 09/10/2007 07/22/2017 Pathologic fracture of vertebrae 10/13/2005 07/22/2017 Backache, unspecified 09/24/2005 04/23/2017 Thoracic or lumbosacral neuritis or radiculitis, unspecified 09/24/2005 07/22/2017 Pes anserinus tendinitis or bursitis 09/04/2005 07/22/2017 Overview: RT Rotator cuff (capsule) sprain 06/21/2003 osteoporosis 04/23/2017 Apnea 12/05/2015 Overview: cpap Thyroid disorder 04/23/2017 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: Depression (non-psychotic) documented as of this encounter (statuses as of 08/07/2021) [facility]2017 History of Past illness Narrative* Problem Noted Date Resolved Date Dysphagia 05/22/2016 01/21/2017 Ischemic colon 06/02/2012 04/23/2017 Colonic mass 06/02/2012 04/23/2017 Unspecified sleep apnea 01/04/2008 07/23/19 18 Overview: DME: [facility] # [phone]; fax# [phone] Lumbago 09/10/2007 04/23/2017 Sprain of neck 09/10/2007 07/22/2017 Pathologic fracture of vertebrae 10/13/2005 07/22/2017 Backache, unspecified 09/24/2005 04/23/2017 Thoracic or lumbosacral neuritis or radiculitis, unspecified 09/24/2005 07/22/2017 Pes anserinus tendinitis or bursitis 09/04/2005 07/22/2017 Overview: RT Rotator cuff (capsule) sprain 06/21/2003 osteoporosis 04/23/2017 Apnea 12/05/2015 Overview: cpap Thyroid disorder 04/23/2017 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: Depression (non-psychotic) documented as of this encounter (statuses as of 09/05/2021) [facility]2017 History of Past illness Narrative* Problem Noted Date Resolved Date Dysphagia 05/22/2016 01/21/2017 Ischemic colon 06/02/2012 04/23/2017 Colonic mass 06/02/2012 04/23/2017 Unspecified sleep apnea 01/04/2008 07/23/19 18 Overview: DME: [facility] # [phone]; fax# [phone] Lumbago 09/10/2007 04/23/2017 Sprain of neck 09/10/2007 07/22/2017 Pathologic fracture of vertebrae 10/13/2005 07/22/2017 Backache, unspecified 09/24/2005 04/23/2017 Thoracic or lumbosacral neuritis or radiculitis, unspecified 09/24/2005 07/22/2017 Pes anserinus tendinitis or bursitis 09/04/2005 07/22/2017 Overview: RT Rotator cuff (capsule) sprain 06/21/2003 osteoporosis 04/23/2017 Apnea 12/05/2015 Overview: cpap Thyroid disorder 04/23/2017 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: Depression (non-psychotic) documented as of this encounter (statuses as of 09/05/2021) [facility]2017 History of Past illness Narrative* Problem Noted Date Resolved Date Dysphagia 05/22/2016 01/21/2017 Ischemic colon 06/02/2012 04/23/2017 Colonic mass 06/02/2012 04/23/2017 Unspecified sleep apnea 01/04/2008 07/23/19 18 Overview: DME: [facility]# [phone]; fax# [phone] Lumbago 09/10/2007 04/23/2017 Sprain of neck 09/10/2007 07/22/2017 Pathologic fracture of vertebrae 10/13/2005 07/22/2017 Backache, unspecified 09/24/2005 04/23/2017 Thoracic or lumbosacral neuritis or radiculitis, unspecified 09/24/2005 07/22/2017 Pes anserinus tendinitis or bursitis 09/04/2005 07/22/2017 Overview: RT Rotator cuff (capsule) sprain 06/21/2003 osteoporosis 04/23/2017 Apnea 12/05/2015 Overview: cpap Thyroid disorder 04/23/2017 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: Depression (non-psychotic) documented as of this encounter (statuses as of 09/18/2021) [facility]2017 History of Past illness Narrative* Problem Noted Date Resolved Date Dysphagia 05/22/2016 01/21/2017 Ischemic colon 06/02/2012 04/23/2017 Colonic mass 06/02/2012 04/23/2017 Unspecified sleep apnea 01/04/2008 07/23/19 18 Overview: DME: [facility]# [phone]; fax# [phone] Lumbago 09/10/2007 04/23/2017 Sprain of neck 09/10/2007 07/22/2017 Pathologic fracture of vertebrae 10/13/2005 07/22/2017 Backache, unspecified 09/24/2005 04/23/2017 Thoracic or lumbosacral neuritis or radiculitis, unspecified 09/24/2005 07/22/2017 Pes anserinus tendinitis or bursitis 09/04/2005 07/22/2017 Overview: RT Rotator cuff (capsule) sprain 06/21/2003 osteoporosis 04/23/2017 Apnea 12/05/2015 Overview: cpap Thyroid disorder 04/23/2017 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: Depression (non-psychotic) documented as of this encounter (statuses as of 09/20/2021) [facility]2017 History of Past illness Narrative* Problem Noted Date Resolved Date Dysphagia 05/22/2016 01/21/2017 Ischemic colon 06/02/2012 04/23/2017 Colonic mass 06/02/2012 04/23/2017 Unspecified sleep apnea 01/04/2008 07/23/19 Overview: DME: [facility] # [phone]; fax# [phone] Lumbago 09/10/2007 04/23/2017 Sprain of neck 09/10/2007 07/22/2017 Pathologic fracture of vertebrae 10/13/2005 07/22/2017 Backache, unspecified 09/24/2005 04/23/2017 Thoracic or lumbosacral neuritis or radiculitis, unspecified 09/24/2005 07/22/2017 Pes anserinus tendinitis or bursitis 09/04/2005 07/22/2017 Overview: RT Rotator cuff (capsule) sprain 06/21/2003 osteoporosis 04/23/2017 Apnea 12/05/2015 Overview: cpap Thyroid disorder 04/23/2017 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: Depression (non-psychotic) documented as of this encounter (statuses as of 09/21/2021) [facility]2017 History of Past illness Narrative* Problem Noted Date Resolved Date Dysphagia 05/22/2016 01/21/2017 Ischemic colon 06/02/2012 04/23/2017 Colonic mass 06/02/2012 04/23/2017 Unspecified sleep apnea 01/04/2008 07/23/19 18 Overview: DME: [facility]# [phone]; fax# [phone] Lumbago 09/10/2007 04/23/2017 Sprain of neck 09/10/2007 07/22/2017 Pathologic fracture of vertebrae 10/13/2005 07/22/2017 Backache, unspecified 09/24/2005 04/23/2017 Thoracic or lumbosacral neuritis or radiculitis, unspecified 09/24/2005 07/22/2017 Pes anserinus tendinitis or bursitis 09/04/2005 07/22/2017 Overview: RT Rotator cuff (capsule) sprain 06/21/2003 osteoporosis 04/23/2017 Apnea 12/05/2015 Overview: cpap Thyroid disorder 04/23/2017 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: Depression (non-psychotic) documented as of this encounter (statuses as of 09/23/2021) [facility]2017 History of Past illness Narrative* Problem Noted Date Resolved Date Dysphagia 05/22/2016 01/21/2017 Ischemic colon 06/02/2012 04/23/2017 Colonic mass 06/02/2012 04/23/2017 Unspecified sleep apnea 01/04/2008 07/23/19 18 Overview: DME: [facility]# [phone]; fax# [phone] Lumbago 09/10/2007 04/23/2017 Sprain of neck 09/10/2007 07/22/2017 Pathologic fracture of vertebrae 10/13/2005 07/22/2017 Backache, unspecified 09/24/2005 04/23/2017 Thoracic or lumbosacral neuritis or radiculitis, unspecified 09/24/2005 07/22/2017 Pes anserinus tendinitis or bursitis 09/04/2005 07/22/2017 Overview: RT Rotator cuff (capsule) sprain 06/21/2003 osteoporosis 04/23/2017 Apnea 12/05/2015 Overview: cpap Thyroid disorder 04/23/2017 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: Depression (non-psychotic) documented as of this encounter (statuses as of 10/04/2021) [facility]2017 History of Past illness Narrative* Problem Noted Date Resolved Date Dysphagia 05/22/2016 01/21/2017 Ischemic colon 06/02/2012 04/23/2017 Colonic mass 06/02/2012 04/23/2017 Unspecified sleep apnea 01/04/2008 07/23/19 18 Overview: DME: [facility] # [phone]; fax# [phone] Lumbago 09/10/2007 04/23/2017 Sprain of neck 09/10/2007 07/22/2017 Pathologic fracture of vertebrae 10/13/2005 07/22/2017 Backache, unspecified 09/24/2005 04/23/2017 Thoracic or lumbosacral neuritis or radiculitis, unspecified 09/24/2005 07/22/2017 Pes anserinus tendinitis or bursitis 09/04/2005 07/22/2017 Overview: RT Rotator cuff (capsule) sprain 06/21/2003 osteoporosis 04/23/2017 Apnea 12/05/2015 Overview: cpap Thyroid disorder 04/23/2017 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: Depression (non-psychotic) documented as of this encounter (statuses as of 10/05/2021) [facility] History of Past illness Narrative* Problem Noted Date Resolved Date Dysphagia 05/22/2016 01/21/2017 Ischemic colon 06/02/2012 04/23/2017 Colonic mass 06/02/2012 04/23/2017 Unspecified sleep apnea 01/04/2008 07/23/19 18 Overview: DME: [facility]# [phone]; fax# [phone] Lumbago 09/10/2007 04/23/2017 Sprain of neck 09/10/2007 07/22/2017 Pathologic fracture of vertebrae 10/13/2005 07/22/2017 Backache, unspecified 09/24/2005 04/23/2017 Thoracic or lumbosacral neuritis or radiculitis, unspecified 09/24/2005 07/22/2017 Pes anserinus tendinitis or bursitis 09/04/2005 07/22/2017 Overview: RT Rotator cuff (capsule) sprain 06/21/2003 osteoporosis 04/23/2017 Apnea 12/05/2015 Overview: cpap Thyroid disorder 04/23/2017 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: Depression (non-psychotic) documented as of this encounter (statuses as of 10/11/2021) [facility] History of Past illness Narrative* Problem Noted Date Resolved Date Dysphagia 05/22/2016 01/21/2017 Ischemic colon 06/02/2012 04/23/2017 Colonic mass 06/02/2012 04/23/2017 Unspecified sleep apnea 01/04/2008 07/23/19 18 Overview: DME: [facility]# [phone]; fax# [phone] Lumbago 09/10/2007 04/23/2017 Sprain of neck 09/10/2007 07/22/2017 Pathologic fracture of vertebrae 10/13/2005 07/22/2017 Backache, unspecified 09/24/2005 04/23/2017 Thoracic or lumbosacral neuritis or radiculitis, unspecified 09/24/2005 07/22/2017 Pes anserinus tendinitis or bursitis 09/04/2005 07/22/2017 Overview: RT Rotator cuff (capsule) sprain 06/21/2003 osteoporosis 04/23/2017 Apnea 12/05/2015 Overview: cpap Thyroid disorder 04/23/2017 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: Depression (non-psychotic) documented as of this encounter (statuses as of 10/11/2021) [facility] History of Past illness Narrative* Problem Noted Date Resolved Date Dysphagia 05/22/2016 01/21/2017 Ischemic colon 06/02/2012 04/23/2017 Colonic mass 06/02/2012 04/23/2017 Unspecified sleep apnea 01/04/2008 07/23/19 18 Overview: DME: [facility] # [phone]; fax# [phone] Lumbago 09/10/2007 04/23/2017 Sprain of neck 09/10/2007 07/22/2017 Pathologic fracture of vertebrae 10/13/2005 07/22/2017 Backache, unspecified 09/24/2005 04/23/2017 Thoracic or lumbosacral neuritis or radiculitis, unspecified 09/24/2005 07/22/2017 Pes anserinus tendinitis or bursitis 09/04/2005 07/22/2017 Overview: RT Rotator cuff (capsule) sprain 06/21/2003 osteoporosis 04/23/2017 Apnea 12/05/2015 Overview: cpap Thyroid disorder 04/23/2017 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: Depression (non-psychotic) documented as of this encounter (statuses as of 10/28/2021) [facility] History of Past illness Narrative* Problem Noted Date Resolved Date Dysphagia 05/22/2016 01/21/2017 Ischemic colon 06/02/2012 04/23/2017 Colonic mass 06/02/2012 04/23/2017 Unspecified sleep apnea 01/04/2008 07/23/19 18 Overview: DME: [facility]# [phone]; fax# [phone] Lumbago 09/10/2007 04/23/2017 Sprain of neck 09/10/2007 07/22/2017 Pathologic fracture of vertebrae 10/13/2005 07/22/2017 Backache, unspecified 09/24/2005 04/23/2017 Thoracic or lumbosacral neuritis or radiculitis, unspecified 09/24/2005 07/22/2017 Pes anserinus tendinitis or bursitis 09/04/2005 07/22/2017 Overview: RT Rotator cuff (capsule) sprain 06/21/2003 osteoporosis 04/23/2017 Apnea 12/05/2015 Overview: cpap Thyroid disorder 04/23/2017 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: Depression (non-psychotic) documented as of this encounter (statuses as of 11/11/2021) [facility] History of Past illness Narrative* Problem Noted Date Resolved Date Dysphagia 05/22/2016 01/21/2017 Ischemic colon 06/02/2012 04/23/2017 Colonic mass 06/02/2012 04/23/2017 Unspecified sleep apnea 01/04/2008 07/23/19 Overview: DME: [facility]# [phone]; fax# [phone] Lumbago 09/10/2007 04/23/2017 Sprain of neck 09/10/2007 07/22/2017 Pathologic fracture of vertebrae 10/13/2005 07/22/2017 Backache, unspecified 09/24/2005 04/23/2017 Thoracic or lumbosacral neuritis or radiculitis, unspecified 09/24/2005 07/22/2017 Pes anserinus tendinitis or bursitis 09/04/2005 07/22/2017 Overview: RT Rotator cuff (capsule) sprain 06/21/2003 osteoporosis 04/23/2017 Apnea 12/05/2015 Overview: cpap Thyroid disorder 04/23/2017 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: Depression (non-psychotic) documented as of this encounter (statuses as of 11/14/2021) [facility] History of Past illness Narrative* Problem Noted Date Resolved Date Dysphagia 05/22/2016 01/21/2017 Ischemic colon 06/02/2012 04/23/2017 Colonic mass 06/02/2012 04/23/2017 Unspecified sleep apnea 01/04/2008 07/23/19 18 Overview: DME: [facility]# [phone]; fax# [phone] Lumbago 09/10/2007 04/23/2017 Sprain of neck 09/10/2007 07/22/2017 Pathologic fracture of vertebrae 10/13/2005 07/22/2017 Backache, unspecified 09/24/2005 04/23/2017 Thoracic or lumbosacral neuritis or radiculitis, unspecified 09/24/2005 07/22/2017 Pes anserinus tendinitis or bursitis 09/04/2005 07/22/2017 Overview: RT Rotator cuff (capsule) sprain 06/21/2003 osteoporosis 04/23/2017 Apnea 12/05/2015 Overview: cpap Thyroid disorder 04/23/2017 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: Depression (non-psychotic) documented as of this encounter (statuses as of 11/15/2021) [facility] History of Past illness Narrative* Problem Noted Date Resolved Date Dysphagia 05/22/2016 01/21/2017 Ischemic colon 06/02/2012 04/23/2017 Colonic mass 06/02/2012 04/23/2017 Unspecified sleep apnea 01/04/2008 07/23/19 18 Overview: DME: [facility]# [phone]; fax# [phone] Lumbago 09/10/2007 04/23/2017 Sprain of neck 09/10/2007 07/22/2017 Pathologic fracture of vertebrae 10/13/2005 07/22/2017 Backache, unspecified 09/24/2005 04/23/2017 Thoracic or lumbosacral neuritis or radiculitis, unspecified 09/24/2005 07/22/2017 Pes anserinus tendinitis or bursitis 09/04/2005 07/22/2017 Overview: RT Rotator cuff (capsule) sprain 06/21/2003 osteoporosis 04/23/2017 Apnea 12/05/2015 Overview: cpap Thyroid disorder 04/23/2017 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: Depression (non-psychotic) documented as of this encounter (statuses as of 11/29/2021) [facility] History of Past illness Narrative* Problem Noted Date Resolved Date Dysphagia 05/22/2016 01/21/2017 Ischemic colon 06/02/2012 04/23/2017 Colonic mass 06/02/2012 04/23/2017 Unspecified sleep apnea 01/04/2008 07/23/19 18 Overview: DME: [facility] # [phone]; fax# [phone] Lumbago 09/10/2007 04/23/2017 Sprain of neck 09/10/2007 07/22/2017 Pathologic fracture of vertebrae 10/13/2005 07/22/2017 Backache, unspecified 09/24/2005 04/23/2017 Thoracic or lumbosacral neuritis or radiculitis, unspecified 09/24/2005 07/22/2017 Pes anserinus tendinitis or bursitis 09/04/2005 07/22/2017 Overview: RT Rotator cuff (capsule) sprain 06/21/2003 osteoporosis 04/23/2017 Apnea 12/05/2015 Overview: cpap Thyroid disorder 04/23/2017 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: Depression (non-psychotic) documented as of this encounter (statuses as of 11/29/2021) [facility] History of Past illness Narrative* Problem Noted Date Resolved Date Dysphagia 05/22/2016 01/21/2017 Ischemic colon 06/02/2012 04/23/2017 Colonic mass 06/02/2012 04/23/2017 Unspecified sleep apnea 01/04/2008 07/23/19 18 Overview: DME: [facility]# [phone]; fax# [phone] Lumbago 09/10/2007 04/23/2017 Sprain of neck 09/10/2007 07/22/2017 Pathologic fracture of vertebrae 10/13/2005 07/22/2017 Backache, unspecified 09/24/2005 04/23/2017 Thoracic or lumbosacral neuritis or radiculitis, unspecified 09/24/2005 07/22/2017 Pes anserinus tendinitis or bursitis 09/04/2005 07/22/2017 Overview: RT Rotator cuff (capsule) sprain 06/21/2003 osteoporosis 04/23/2017 Apnea 12/05/2015 Overview: cpap Thyroid disorder 04/23/2017 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: Depression (non-psychotic) documented as of this encounter (statuses as of 11/30/2021) [facility] History of Past illness Narrative* Problem Noted Date Resolved Date Dysphagia 05/22/2016 01/21/2017 Ischemic colon 06/02/2012 04/23/2017 Colonic mass 06/02/2012 04/23/2017 Unspecified sleep apnea 01/04/2008 07/23/19 18 Overview: DME: [facility]# [phone]; fax# [phone] Lumbago 09/10/2007 04/23/2017 Sprain of neck 09/10/2007 07/22/2017 Pathologic fracture of vertebrae 10/13/2005 07/22/2017 Backache, unspecified 09/24/2005 04/23/2017 Thoracic or lumbosacral neuritis or radiculitis, unspecified 09/24/2005 07/22/2017 Pes anserinus tendinitis or bursitis 09/04/2005 07/22/2017 Overview: RT Rotator cuff (capsule) sprain 06/21/2003 osteoporosis 04/23/2017 Apnea 12/05/2015 Overview: cpap Thyroid disorder 04/23/2017 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: Depression (non-psychotic) documented as of this encounter (statuses as of 12/02/2021) [facility] History of Past illness Narrative* Problem Noted Date Resolved Date Dysphagia 05/22/2016 01/21/2017 Ischemic colon 06/02/2012 04/23/2017 Colonic mass 06/02/2012 04/23/2017 Unspecified sleep apnea 01/04/2008 07/23/19 18 Overview: DME: [facility] # [phone]; fax# [phone] Lumbago 09/10/2007 04/23/2017 Sprain of neck 09/10/2007 07/22/2017 Pathologic fracture of vertebrae 10/13/2005 07/22/2017 Backache, unspecified 09/24/2005 04/23/2017 Thoracic or lumbosacral neuritis or radiculitis, unspecified 09/24/2005 07/22/2017 Pes anserinus tendinitis or bursitis 09/04/2005 07/22/2017 Overview: RT Rotator cuff (capsule) sprain 06/21/2003 osteoporosis 04/23/2017 Apnea 12/05/2015 Overview: cpap Thyroid disorder 04/23/2017 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: Depression (non-psychotic) documented as of this encounter (statuses as of 12/02/2021) [facility]03-[facility]2017 History of Past illness Narrative* Problem Noted Date Resolved Date Dysphagia 05/22/2016 01/21/2017 Ischemic colon 06/02/2012 04/23/2017 Colonic mass 06/02/2012 04/23/2017 Unspecified sleep apnea 01/04/2008 07/23/19 18 Overview: DME: [facility]# [phone]; fax# [phone] Lumbago 09/10/2007 04/23/2017 Sprain of neck 09/10/2007 07/22/2017 Pathologic fracture of vertebrae 10/13/2005 07/22/2017 Backache, unspecified 09/24/2005 04/23/2017 Thoracic or lumbosacral neuritis or radiculitis, unspecified 09/24/2005 07/22/2017 Pes anserinus tendinitis or bursitis 09/04/2005 07/22/2017 Overview: RT Rotator cuff (capsule) sprain 06/21/2003 osteoporosis 04/23/2017 Apnea 12/05/2015 Overview: cpap Thyroid disorder 04/23/2017 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: Depression (non-psychotic) documented as of this encounter (statuses as of 12/04/2021) [facility] History of Past illness Narrative* Problem Noted Date Resolved Date Dysphagia 05/22/2016 01/21/2017 Ischemic colon 06/02/2012 04/23/2017 Colonic mass 06/02/2012 04/23/2017 Unspecified sleep apnea 01/04/2008 07/23/19 18 Overview: DME: [facility]# [phone]; fax# [phone] Lumbago 09/10/2007 04/23/2017 Sprain of neck 09/10/2007 07/22/2017 Pathologic fracture of vertebrae 10/13/2005 07/22/2017 Backache, unspecified 09/24/2005 04/23/2017 Thoracic or lumbosacral neuritis or radiculitis, unspecified 09/24/2005 07/22/2017 Pes anserinus tendinitis or bursitis 09/04/2005 07/22/2017 Overview: RT Rotator cuff (capsule) sprain 06/21/2003 osteoporosis 04/23/2017 Apnea 12/05/2015 Overview: cpap Thyroid disorder 04/23/2017 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: Depression (non-psychotic) documented as of this encounter (statuses as of 12/09/2021) [facility] History of Past illness Narrative* Problem Noted Date Resolved Date Dysphagia 05/22/2016 01/21/2017 Ischemic colon 06/02/2012 04/23/2017 Colonic mass 06/02/2012 04/23/2017 Unspecified sleep apnea 01/04/2008 07/23/19 18 Overview: DME: [facility] # [phone]; fax# [phone] Lumbago 09/10/2007 04/23/2017 Sprain of neck 09/10/2007 07/22/2017 Pathologic fracture of vertebrae 10/13/2005 07/22/2017 Backache, unspecified 09/24/2005 04/23/2017 Thoracic or lumbosacral neuritis or radiculitis, unspecified 09/24/2005 07/22/2017 Pes anserinus tendinitis or bursitis 09/04/2005 07/22/2017 Overview: RT Rotator cuff (capsule) sprain 06/21/2003 osteoporosis 04/23/2017 Apnea 12/05/2015 Overview: cpap Thyroid disorder 04/23/2017 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: Depression (non-psychotic) documented as of this encounter (statuses as of 12/09/2021) [facility]2017 History of Past illness Narrative* Problem Noted Date Resolved Date Dysphagia 05/22/2016 01/21/2017 Ischemic colon 06/02/2012 04/23/2017 Colonic mass 06/02/2012 04/23/2017 Unspecified sleep apnea 01/04/2008 07/23/19 18 Overview: DME: [facility]# [phone]; fax# [phone] Lumbago 09/10/2007 04/23/2017 Sprain of neck 09/10/2007 07/22/2017 Pathologic fracture of vertebrae 10/13/2005 07/22/2017 Backache, unspecified 09/24/2005 04/23/2017 Thoracic or lumbosacral neuritis or radiculitis, unspecified 09/24/2005 07/22/2017 Pes anserinus tendinitis or bursitis 09/04/2005 07/22/2017 Overview: RT Rotator cuff (capsule) sprain 06/21/2003 osteoporosis 04/23/2017 Apnea 12/05/2015 Overview: cpap Thyroid disorder 04/23/2017 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: Depression (non-psychotic) documented as of this encounter (statuses as of 12/10/2021) [facility] History of Past illness Narrative* Problem Noted Date Resolved Date Dysphagia 05/22/2016 01/21/2017 Ischemic colon 06/02/2012 04/23/2017 Colonic mass 06/02/2012 04/23/2017 Unspecified sleep apnea 01/04/2008 07/23/19 18 Overview: DME: [facility]# [phone]; fax# [phone] Lumbago 09/10/2007 04/23/2017 Sprain of neck 09/10/2007 07/22/2017 Pathologic fracture of vertebrae 10/13/2005 07/22/2017 Backache, unspecified 09/24/2005 04/23/2017 Thoracic or lumbosacral neuritis or radiculitis, unspecified 09/24/2005 07/22/2017 Pes anserinus tendinitis or bursitis 09/04/2005 07/22/2017 Overview: RT Rotator cuff (capsule) sprain 06/21/2003 osteoporosis 04/23/2017 Apnea 12/05/2015 Overview: cpap Thyroid disorder 04/23/2017 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: Depression (non-psychotic) documented as of this encounter (statuses as of 12/23/2021) [facility] History of Past illness Narrative* Problem Noted Date Resolved Date Dysphagia 05/22/2016 01/21/2017 Ischemic colon 06/02/2012 04/23/2017 Colonic mass 06/02/2012 04/23/2017 Unspecified sleep apnea 01/04/2008 07/23/19 18 Overview: DME: [facility] # [phone]; fax# [phone] Lumbago 09/10/2007 04/23/2017 Sprain of neck 09/10/2007 07/22/2017 Pathologic fracture of vertebrae 10/13/2005 07/22/2017 Backache, unspecified 09/24/2005 04/23/2017 Thoracic or lumbosacral neuritis or radiculitis, unspecified 09/24/2005 07/22/2017 Pes anserinus tendinitis or bursitis 09/04/2005 07/22/2017 Overview: RT Rotator cuff (capsule) sprain 06/21/2003 osteoporosis 04/23/2017 Apnea 12/05/2015 Overview: cpap Thyroid disorder 04/23/2017 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: Depression (non-psychotic) documented as of this encounter (statuses as of 12/31/2021) [facility] History of Past illness Narrative* Problem Noted Date Resolved Date Dysphagia 05/22/2016 01/21/2017 Ischemic colon 06/02/2012 04/23/2017 Colonic mass 06/02/2012 04/23/2017 Unspecified sleep apnea 01/04/2008 07/23/19 18 Overview: DME: [facility]# [phone]; fax# [phone] Lumbago 09/10/2007 04/23/2017 Sprain of neck 09/10/2007 07/22/2017 Pathologic fracture of vertebrae 10/13/2005 07/22/2017 Backache, unspecified 09/24/2005 04/23/2017 Thoracic or lumbosacral neuritis or radiculitis, unspecified 09/24/2005 07/22/2017 Pes anserinus tendinitis or bursitis 09/04/2005 07/22/2017 Overview: RT Rotator cuff (capsule) sprain 06/21/2003 osteoporosis 04/23/2017 Apnea 12/05/2015 Overview: cpap Thyroid disorder 04/23/2017 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: Depression (non-psychotic) documented as of this encounter (statuses as of 01/28/2022) [facility] History of Past illness Narrative* Problem Noted Date Resolved Date Dysphagia 05/22/2016 01/21/2017 Ischemic colon 06/02/2012 04/23/2017 Colonic mass 06/02/2012 04/23/2017 Unspecified sleep apnea 01/04/2008 07/23/19 18 Overview: DME: [facility]# [phone]; fax# [phone] Lumbago 09/10/2007 04/23/2017 Sprain of neck 09/10/2007 07/22/2017 Pathologic fracture of vertebrae 10/13/2005 07/22/2017 Backache, unspecified 09/24/2005 04/23/2017 Thoracic or lumbosacral neuritis or radiculitis, unspecified 09/24/2005 07/22/2017 Pes anserinus tendinitis or bursitis 09/04/2005 07/22/2017 Overview: RT Rotator cuff (capsule) sprain 06/21/2003 osteoporosis 04/23/2017 Apnea 12/05/2015 Overview: cpap Thyroid disorder 04/23/2017 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: Depression (non-psychotic) documented as of this encounter (statuses as of 02/03/2022) [facility] History of Past illness Narrative* Problem Noted Date Resolved Date Dysphagia 05/22/2016 01/21/2017 Ischemic colon 06/02/2012 04/23/2017 Colonic mass 06/02/2012 04/23/2017 Unspecified sleep apnea 01/04/2008 07/23/19 18 Overview: DME: [facility]# [phone]; fax# [phone] Lumbago 09/10/2007 04/23/2017 Sprain of neck 09/10/2007 07/22/2017 Pathologic fracture of vertebrae 10/13/2005 07/22/2017 Backache, unspecified 09/24/2005 04/23/2017 Thoracic or lumbosacral neuritis or radiculitis, unspecified 09/24/2005 07/22/2017 Pes anserinus tendinitis or bursitis 09/04/2005 07/22/2017 Overview: RT Rotator cuff (capsule) sprain 06/21/2003 osteoporosis 04/23/2017 Apnea 12/05/2015 Overview: cpap Thyroid disorder 04/23/2017 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: Depression (non-psychotic) documented as of this encounter (statuses as of 02/15/2022) [facility]2017 History of Past illness Narrative* Problem Noted Date Resolved Date Dysphagia 05/22/2016 01/21/2017 Ischemic colon 06/02/2012 04/23/2017 Colonic mass 06/02/2012 04/23/2017 Unspecified sleep apnea 01/04/2008 07/23/19 18 Overview: DME: [facility]# [phone]; fax# [phone] Lumbago 09/10/2007 04/23/2017 Sprain of neck 09/10/2007 07/22/2017 Pathologic fracture of vertebrae 10/13/2005 07/22/2017 Backache, unspecified 09/24/2005 04/23/2017 Thoracic or lumbosacral neuritis or radiculitis, unspecified 09/24/2005 07/22/2017 Pes anserinus tendinitis or bursitis 09/04/2005 07/22/2017 Overview: RT Rotator cuff (capsule) sprain 06/21/2003 osteoporosis 04/23/2017 Apnea 12/05/2015 Overview: cpap Thyroid disorder 04/23/2017 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: Depression (non-psychotic) documented as of this encounter (statuses as of 02/19/2022) [facility]2017 History of Past illness Narrative* Problem Noted Date Resolved Date Dysphagia 05/22/2016 01/21/2017 Ischemic colon 06/02/2012 04/23/2017 Colonic mass 06/02/2012 04/23/2017 Unspecified sleep apnea 01/04/2008 07/23/19 18 Overview: DME: [facility] # [phone]; fax# [phone] Lumbago 09/10/2007 04/23/2017 Sprain of neck 09/10/2007 07/22/2017 Pathologic fracture of vertebrae 10/13/2005 07/22/2017 Backache, unspecified 09/24/2005 04/23/2017 Thoracic or lumbosacral neuritis or radiculitis, unspecified 09/24/2005 07/22/2017 Pes anserinus tendinitis or bursitis 09/04/2005 07/22/2017 Overview: RT Rotator cuff (capsule) sprain 06/21/2003 osteoporosis 04/23/2017 Apnea 12/05/2015 Overview: cpap Thyroid disorder 04/23/2017 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: Depression (non-psychotic) documented as of this encounter (statuses as of 03/05/2022) [facility]2017 History of Past illness Narrative* Problem Noted Date Resolved Date Dysphagia 05/22/2016 01/21/2017 Ischemic colon 06/02/2012 04/23/2017 Colonic mass 06/02/2012 04/23/2017 Unspecified sleep apnea 01/04/2008 07/23/19 18 Overview: DME: [facility]# [phone]; fax# [phone] Lumbago 09/10/2007 04/23/2017 Sprain of neck 09/10/2007 07/22/2017 Pathologic fracture of vertebrae 10/13/2005 07/22/2017 Backache, unspecified 09/24/2005 04/23/2017 Thoracic or lumbosacral neuritis or radiculitis, unspecified 09/24/2005 07/22/2017 Pes anserinus tendinitis or bursitis 09/04/2005 07/22/2017 Overview: RT Rotator cuff (capsule) sprain 06/21/2003 osteoporosis 04/23/2017 Apnea 12/05/2015 Overview: cpap Thyroid disorder 04/23/2017 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: Depression (non-psychotic) documented as of this encounter (statuses as of 03/19/2022) [facility] History of Past illness Narrative* Problem Noted Date Resolved Date Dysphagia 05/22/2016 01/21/2017 Ischemic colon 06/02/2012 04/23/2017 Colonic mass 06/02/2012 04/23/2017 Unspecified sleep apnea 01/04/2008 07/23/19 18 Overview: DME: [facility]# [phone]; fax# [phone] Lumbago 09/10/2007 04/23/2017 Sprain of neck 09/10/2007 07/22/2017 Pathologic fracture of vertebrae 10/13/2005 07/22/2017 Backache, unspecified 09/24/2005 04/23/2017 Thoracic or lumbosacral neuritis or radiculitis, unspecified 09/24/2005 07/22/2017 Pes anserinus tendinitis or bursitis 09/04/2005 07/22/2017 Overview: RT Rotator cuff (capsule) sprain 06/21/2003 osteoporosis 04/23/2017 Apnea 12/05/2015 Overview: cpap Thyroid disorder 04/23/2017 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: Depression (non-psychotic) documented as of this encounter (statuses as of 03/25/2022) [facility]2017 History of Past illness Narrative* Problem Noted Date Resolved Date Dysphagia 05/22/2016 01/21/2017 Ischemic colon 06/02/2012 04/23/2017 Colonic mass 06/02/2012 04/23/2017 Unspecified sleep apnea 01/04/2008 07/23/19 18 Overview: DME: [facility] # [phone]; fax# [phone] Lumbago 09/10/2007 04/23/2017 Sprain of neck 09/10/2007 07/22/2017 Pathologic fracture of vertebrae 10/13/2005 07/22/2017 Backache, unspecified 09/24/2005 04/23/2017 Thoracic or lumbosacral neuritis or radiculitis, unspecified 09/24/2005 07/22/2017 Pes anserinus tendinitis or bursitis 09/04/2005 07/22/2017 Overview: RT Rotator cuff (capsule) sprain 06/21/2003 osteoporosis 04/23/2017 Apnea 12/05/2015 Overview: cpap Thyroid disorder 04/23/2017 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: Depression (non-psychotic) documented as of this encounter (statuses as of 03/28/2022) [facility]2017 History of Past illness Narrative* Problem Noted Date Resolved Date Dysphagia 05/22/2016 01/21/2017 Ischemic colon 06/02/2012 04/23/2017 Colonic mass 06/02/2012 04/23/2017 Unspecified sleep apnea 01/04/2008 07/23/19 18 Overview: DME: [facility]# [phone]; fax# [phone] Lumbago 09/10/2007 04/23/2017 Sprain of neck 09/10/2007 07/22/2017 Pathologic fracture of vertebrae 10/13/2005 07/22/2017 Backache, unspecified 09/24/2005 04/23/2017 Thoracic or lumbosacral neuritis or radiculitis, unspecified 09/24/2005 07/22/2017 Pes anserinus tendinitis or bursitis 09/04/2005 07/22/2017 Overview: RT Rotator cuff (capsule) sprain 06/21/2003 osteoporosis 04/23/2017 Apnea 12/05/2015 Overview: cpap Thyroid disorder 04/23/2017 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: Depression (non-psychotic) documented as of this encounter (statuses as of 03/31/2022) [facility]2017 History of Past illness Narrative* Problem Noted Date Resolved Date Dysphagia 05/22/2016 01/21/2017 Ischemic colon 06/02/2012 04/23/2017 Colonic mass 06/02/2012 04/23/2017 Unspecified sleep apnea 01/04/2008 07/23/19 18 Overview: DME: [facility]# [phone]; fax# [phone] Lumbago 09/10/2007 04/23/2017 Sprain of neck 09/10/2007 07/22/2017 Pathologic fracture of vertebrae 10/13/2005 07/22/2017 Backache, unspecified 09/24/2005 04/23/2017 Thoracic or lumbosacral neuritis or radiculitis, unspecified 09/24/2005 07/22/2017 Pes anserinus tendinitis or bursitis 09/04/2005 07/22/2017 Overview: RT Rotator cuff (capsule) sprain 06/21/2003 osteoporosis 04/23/2017 Apnea 12/05/2015 Overview: cpap Thyroid disorder 04/23/2017 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: Depression (non-psychotic) documented as of this encounter (statuses as of 04/01/2022) [facility] History of Past illness Narrative* Problem Noted Date Resolved Date Dysphagia 05/22/2016 01/21/2017 Ischemic colon 06/02/2012 04/23/2017 Colonic mass 06/02/2012 04/23/2017 Unspecified sleep apnea 01/04/2008 07/23/19 18 Overview: DME: [facility] # [phone]; fax# [phone] Lumbago 09/10/2007 04/23/2017 Sprain of neck 09/10/2007 07/22/2017 Pathologic fracture of vertebrae 10/13/2005 07/22/2017 Backache, unspecified 09/24/2005 04/23/2017 Thoracic or lumbosacral neuritis or radiculitis, unspecified 09/24/2005 07/22/2017 Pes anserinus tendinitis or bursitis 09/04/2005 07/22/2017 Overview: RT Rotator cuff (capsule) sprain 06/21/2003 osteoporosis 04/23/2017 Apnea 12/05/2015 Overview: cpap Thyroid disorder 04/23/2017 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: Depression (non-psychotic) documented as of this encounter (statuses as of 04/01/2022) [facility] History of Past illness Narrative* Problem Noted Date Resolved Date Dysphagia 05/22/2016 01/21/2017 Ischemic colon 06/02/2012 04/23/2017 Colonic mass 06/02/2012 04/23/2017 Unspecified sleep apnea 01/04/2008 07/23/19 18 Overview: DME: [facility]# [phone]; fax# [phone] Lumbago 09/10/2007 04/23/2017 Sprain of neck 09/10/2007 07/22/2017 Pathologic fracture of vertebrae 10/13/2005 07/22/2017 Backache, unspecified 09/24/2005 04/23/2017 Thoracic or lumbosacral neuritis or radiculitis, unspecified 09/24/2005 07/22/2017 Pes anserinus tendinitis or bursitis 09/04/2005 07/22/2017 Overview: RT Rotator cuff (capsule) sprain 06/21/2003 osteoporosis 04/23/2017 Apnea 12/05/2015 Overview: cpap Thyroid disorder 04/23/2017 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: Depression (non-psychotic) documented as of this encounter (statuses as of 04/01/2022) [facility] History of Past illness Narrative* Problem Noted Date Resolved Date Dysphagia 05/22/2016 01/21/2017 Ischemic colon 06/02/2012 04/23/2017 Colonic mass 06/02/2012 04/23/2017 Unspecified sleep apnea 01/04/2008 07/23/19 18 Overview: DME: [facility]# [phone]; fax# [phone] Lumbago 09/10/2007 04/23/2017 Sprain of neck 09/10/2007 07/22/2017 Pathologic fracture of vertebrae 10/13/2005 07/22/2017 Backache, unspecified 09/24/2005 04/23/2017 Thoracic or lumbosacral neuritis or radiculitis, unspecified 09/24/2005 07/22/2017 Pes anserinus tendinitis or bursitis 09/04/2005 07/22/2017 Overview: RT Rotator cuff (capsule) sprain 06/21/2003 osteoporosis 04/23/2017 Apnea 12/05/2015 Overview: cpap Thyroid disorder 04/23/2017 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: Depression (non-psychotic) documented as of this encounter (statuses as of 04/02/2022) [facility] History of Past illness Narrative* Problem Noted Date Resolved Date Dysphagia 05/22/2016 01/21/2017 Ischemic colon 06/02/2012 04/23/2017 Colonic mass 06/02/2012 04/23/2017 Unspecified sleep apnea 01/04/2008 07/23/19 18 Overview: DME: [facility] # [phone]; fax# [phone] Lumbago 09/10/2007 04/23/2017 Sprain of neck 09/10/2007 07/22/2017 Pathologic fracture of vertebrae 10/13/2005 07/22/2017 Backache, unspecified 09/24/2005 04/23/2017 Thoracic or lumbosacral neuritis or radiculitis, unspecified 09/24/2005 07/22/2017 Pes anserinus tendinitis or bursitis 09/04/2005 07/22/2017 Overview: RT Rotator cuff (capsule) sprain 06/21/2003 osteoporosis 04/23/2017 Apnea 12/05/2015 Overview: cpap Thyroid disorder 04/23/2017 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: Depression (non-psychotic) documented as of this encounter (statuses as of 04/08/2022) [facility] History of Past illness Narrative* Problem Noted Date Resolved Date Dysphagia 05/22/2016 01/21/2017 Ischemic colon 06/02/2012 04/23/2017 Colonic mass 06/02/2012 04/23/2017 Unspecified sleep apnea 01/04/2008 07/23/19 18 Overview: DME: [facility]# [phone]; fax# [phone] Lumbago 09/10/2007 04/23/2017 Sprain of neck 09/10/2007 07/22/2017 Pathologic fracture of vertebrae 10/13/2005 07/22/2017 Backache, unspecified 09/24/2005 04/23/2017 Thoracic or lumbosacral neuritis or radiculitis, unspecified 09/24/2005 07/22/2017 Pes anserinus tendinitis or bursitis 09/04/2005 07/22/2017 Overview: RT Rotator cuff (capsule) sprain 06/21/2003 osteoporosis 04/23/2017 Apnea 12/05/2015 Overview: cpap Thyroid disorder 04/23/2017 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: Depression (non-psychotic) documented as of this encounter (statuses as of 04/11/2022) [facility] History of Past illness Narrative* Problem Noted Date Resolved Date Dysphagia 05/22/2016 01/21/2017 Ischemic colon 06/02/2012 04/23/2017 Colonic mass 06/02/2012 04/23/2017 Unspecified sleep apnea 01/04/2008 07/23/19 18 Overview: DME: [facility]# [phone]; fax# [phone] Lumbago 09/10/2007 04/23/2017 Sprain of neck 09/10/2007 07/22/2017 Pathologic fracture of vertebrae 10/13/2005 07/22/2017 Backache, unspecified 09/24/2005 04/23/2017 Thoracic or lumbosacral neuritis or radiculitis, unspecified 09/24/2005 07/22/2017 Pes anserinus tendinitis or bursitis 09/04/2005 07/22/2017 Overview: RT Rotator cuff (capsule) sprain 06/21/2003 osteoporosis 04/23/2017 Apnea 12/05/2015 Overview: cpap Thyroid disorder 04/23/2017 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: Depression (non-psychotic) documented as of this encounter (statuses as of 04/15/2022) [facility] History of Past illness Narrative* Problem Noted Date Resolved Date Dysphagia 05/22/2016 01/21/2017 Ischemic colon 06/02/2012 04/23/2017 Colonic mass 06/02/2012 04/23/2017 Unspecified sleep apnea 01/04/2008 07/23/19 18 Overview: DME: [facility]# [phone]; fax# [phone] Lumbago 09/10/2007 04/23/2017 Sprain of neck 09/10/2007 07/22/2017 Pathologic fracture of vertebrae 10/13/2005 07/22/2017 Backache, unspecified 09/24/2005 04/23/2017 Thoracic or lumbosacral neuritis or radiculitis, unspecified 09/24/2005 07/22/2017 Pes anserinus tendinitis or bursitis 09/04/2005 07/22/2017 Overview: RT Rotator cuff (capsule) sprain 06/21/2003 osteoporosis 04/23/2017 Apnea 12/05/2015 Overview: cpap Thyroid disorder 04/23/2017 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: Depression (non-psychotic) documented as of this encounter (statuses as of 04/16/2022) [facility] History of Past illness Narrative* Problem Noted Date Resolved Date Dysphagia 05/22/2016 01/21/2017 Ischemic colon 06/02/2012 04/23/2017 Colonic mass 06/02/2012 04/23/2017 Unspecified sleep apnea 01/04/2008 07/23/19 18 Overview: DME: [facility]# [phone]; fax# [phone] Lumbago 09/10/2007 04/23/2017 Sprain of neck 09/10/2007 07/22/2017 Pathologic fracture of vertebrae 10/13/2005 07/22/2017 Backache, unspecified 09/24/2005 04/23/2017 Thoracic or lumbosacral neuritis or radiculitis, unspecified 09/24/2005 07/22/2017 Pes anserinus tendinitis or bursitis 09/04/2005 07/22/2017 Overview: RT Rotator cuff (capsule) sprain 06/21/2003 osteoporosis 04/23/2017 Apnea 12/05/2015 Overview: cpap Thyroid disorder 04/23/2017 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: Depression (non-psychotic) documented as of this encounter (statuses as of 04/16/2022) [facility] History of Past illness Narrative* Problem Noted Date Resolved Date Dysphagia 05/22/2016 01/21/2017 Ischemic colon 06/02/2012 04/23/2017 Colonic mass 06/02/2012 04/23/2017 Unspecified sleep apnea 01/04/2008 07/23/19 18 Overview: DME: [facility] # [phone]; fax# [phone] Lumbago 09/10/2007 04/23/2017 Sprain of neck 09/10/2007 07/22/2017 Pathologic fracture of vertebrae 10/13/2005 07/22/2017 Backache, unspecified 09/24/2005 04/23/2017 Thoracic or lumbosacral neuritis or radiculitis, unspecified 09/24/2005 07/22/2017 Pes anserinus tendinitis or bursitis 09/04/2005 07/22/2017 Overview: RT Rotator cuff (capsule) sprain 06/21/2003 osteoporosis 04/23/2017 Apnea 12/05/2015 Overview: cpap Thyroid disorder 04/23/2017 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: Depression (non-psychotic) documented as of this encounter (statuses as of 04/18/2022) [facility] History of Past illness Narrative* Problem Noted Date Resolved Date Dysphagia 05/22/2016 01/21/2017 Ischemic colon 06/02/2012 04/23/2017 Colonic mass 06/02/2012 04/23/2017 Unspecified sleep apnea 01/04/2008 07/23/19 18 Overview: DME: [facility]# [phone]; fax# [phone] Lumbago 09/10/2007 04/23/2017 Sprain of neck 09/10/2007 07/22/2017 Pathologic fracture of vertebrae 10/13/2005 07/22/2017 Backache, unspecified 09/24/2005 04/23/2017 Thoracic or lumbosacral neuritis or radiculitis, unspecified 09/24/2005 07/22/2017 Pes anserinus tendinitis or bursitis 09/04/2005 07/22/2017 Overview: RT Rotator cuff (capsule) sprain 06/21/2003 osteoporosis 04/23/2017 Apnea 12/05/2015 Overview: cpap Thyroid disorder 04/23/2017 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: Depression (non-psychotic) documented as of this encounter (statuses as of 04/21/2022) [facility] History of Past illness Narrative* Problem Noted Date Resolved Date Dysphagia 05/22/2016 01/21/2017 Ischemic colon 06/02/2012 04/23/2017 Colonic mass 06/02/2012 04/23/2017 Unspecified sleep apnea 01/04/2008 07/23/19 18 Overview: DME: [facility]# [phone]; fax# [phone] Lumbago 09/10/2007 04/23/2017 Sprain of neck 09/10/2007 07/22/2017 Pathologic fracture of vertebrae 10/13/2005 07/22/2017 Backache, unspecified 09/24/2005 04/23/2017 Thoracic or lumbosacral neuritis or radiculitis, unspecified 09/24/2005 07/22/2017 Pes anserinus tendinitis or bursitis 09/04/2005 07/22/2017 Overview: RT Rotator cuff (capsule) sprain 06/21/2003 osteoporosis 04/23/2017 Apnea 12/05/2015 Overview: cpap Thyroid disorder 04/23/2017 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: Depression (non-psychotic) documented as of this encounter (statuses as of 04/23/2022) [facility]2017 History of Past illness Narrative* Problem Noted Date Resolved Date Dysphagia 05/22/2016 01/21/2017 Ischemic colon 06/02/2012 04/23/2017 Colonic mass 06/02/2012 04/23/2017 Unspecified sleep apnea 01/04/2008 07/23/19 18 Overview: DME: [facility] # [phone]; fax# [phone] Lumbago 09/10/2007 04/23/2017 Sprain of neck 09/10/2007 07/22/2017 Pathologic fracture of vertebrae 10/13/2005 07/22/2017 Backache, unspecified 09/24/2005 04/23/2017 Thoracic or lumbosacral neuritis or radiculitis, unspecified 09/24/2005 07/22/2017 Pes anserinus tendinitis or bursitis 09/04/2005 07/22/2017 Overview: RT Rotator cuff (capsule) sprain 06/21/2003 osteoporosis 04/23/2017 Apnea 12/05/2015 Overview: cpap Thyroid disorder 04/23/2017 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: Depression (non-psychotic) documented as of this encounter (statuses as of 04/24/2022) [facility] History of Past illness Narrative* Problem Noted Date Resolved Date Dysphagia 05/22/2016 01/21/2017 Ischemic colon 06/02/2012 04/23/2017 Colonic mass 06/02/2012 04/23/2017 Unspecified sleep apnea 01/04/2008 07/23/19 18 Overview: DME: [facility]# [phone]; fax# [phone] Lumbago 09/10/2007 04/23/2017 Sprain of neck 09/10/2007 07/22/2017 Pathologic fracture of vertebrae 10/13/2005 07/22/2017 Backache, unspecified 09/24/2005 04/23/2017 Thoracic or lumbosacral neuritis or radiculitis, unspecified 09/24/2005 07/22/2017 Pes anserinus tendinitis or bursitis 09/04/2005 07/22/2017 Overview: RT Rotator cuff (capsule) sprain 06/21/2003 osteoporosis 04/23/2017 Apnea 12/05/2015 Overview: cpap Thyroid disorder 04/23/2017 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: Depression (non-psychotic) documented as of this encounter (statuses as of 04/25/2022) [facility] History of Past illness Narrative* Problem Noted Date Resolved Date Dysphagia 05/22/2016 01/21/2017 Ischemic colon 06/02/2012 04/23/2017 Colonic mass 06/02/2012 04/23/2017 Unspecified sleep apnea 01/04/2008 07/23/19 18 Overview: DME: [facility]# [phone]; fax# [phone] Lumbago 09/10/2007 04/23/2017 Sprain of neck 09/10/2007 07/22/2017 Pathologic fracture of vertebrae 10/13/2005 07/22/2017 Backache, unspecified 09/24/2005 04/23/2017 Thoracic or lumbosacral neuritis or radiculitis, unspecified 09/24/2005 07/22/2017 Pes anserinus tendinitis or bursitis 09/04/2005 07/22/2017 Overview: RT Rotator cuff (capsule) sprain 06/21/2003 osteoporosis 04/23/2017 Apnea 12/05/2015 Overview: cpap Thyroid disorder 04/23/2017 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: Depression (non-psychotic) documented as of this encounter (statuses as of 04/29/2022) [facility] History of Past illness Narrative* Problem Noted Date Resolved Date Dysphagia 05/22/2016 01/21/2017 Ischemic colon 06/02/2012 04/23/2017 Colonic mass 06/02/2012 04/23/2017 Unspecified sleep apnea 01/04/2008 07/23/19 18 Overview: DME: [facility] # [phone]; fax# [phone] Lumbago 09/10/2007 04/23/2017 Sprain of neck 09/10/2007 07/22/2017 Pathologic fracture of vertebrae 10/13/2005 07/22/2017 Backache, unspecified 09/24/2005 04/23/2017 Thoracic or lumbosacral neuritis or radiculitis, unspecified 09/24/2005 07/22/2017 Pes anserinus tendinitis or bursitis 09/04/2005 07/22/2017 Overview: RT Rotator cuff (capsule) sprain 06/21/2003 osteoporosis 04/23/2017 Apnea 12/05/2015 Overview: cpap Thyroid disorder 04/23/2017 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: Depression (non-psychotic) documented as of this encounter (statuses as of 05/01/2022) [facility] History of Past illness Narrative* Problem Noted Date Resolved Date Dysphagia 05/22/2016 01/21/2017 Ischemic colon 06/02/2012 04/23/2017 Colonic mass 06/02/2012 04/23/2017 Unspecified sleep apnea 01/04/2008 07/23/19 18 Overview: DME: [facility]# [phone]; fax# [phone] Lumbago 09/10/2007 04/23/2017 Sprain of neck 09/10/2007 07/22/2017 Pathologic fracture of vertebrae 10/13/2005 07/22/2017 Backache, unspecified 09/24/2005 04/23/2017 Thoracic or lumbosacral neuritis or radiculitis, unspecified 09/24/2005 07/22/2017 Pes anserinus tendinitis or bursitis 09/04/2005 07/22/2017 Overview: RT Rotator cuff (capsule) sprain 06/21/2003 osteoporosis 04/23/2017 Apnea 12/05/2015 Overview: cpap Thyroid disorder 04/23/2017 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: Depression (non-psychotic) documented as of this encounter (statuses as of 05/04/2022) [facility] History of Past illness Narrative* Problem Noted Date Resolved Date Dysphagia 05/22/2016 01/21/2017 Ischemic colon 06/02/2012 04/23/2017 Colonic mass 06/02/2012 04/23/2017 Unspecified sleep apnea 01/04/2008 07/23/19 18 Overview: DME: [facility]# [phone]; fax# [phone] Lumbago 09/10/2007 04/23/2017 Sprain of neck 09/10/2007 07/22/2017 Pathologic fracture of vertebrae 10/13/2005 07/22/2017 Backache, unspecified 09/24/2005 04/23/2017 Thoracic or lumbosacral neuritis or radiculitis, unspecified 09/24/2005 07/22/2017 Pes anserinus tendinitis or bursitis 09/04/2005 07/22/2017 Overview: RT Rotator cuff (capsule) sprain 06/21/2003 osteoporosis 04/23/2017 Apnea 12/05/2015 Overview: cpap Thyroid disorder 04/23/2017 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: Depression (non-psychotic) documented as of this encounter (statuses as of 05/06/2022) [facility] History of Past illness Narrative* Problem Noted Date Resolved Date Dysphagia 05/22/2016 01/21/2017 Ischemic colon 06/02/2012 04/23/2017 Colonic mass 06/02/2012 04/23/2017 Unspecified sleep apnea 01/04/2008 07/23/19 18 Overview: DME: [facility] # [phone]; fax# [phone] Lumbago 09/10/2007 04/23/2017 Sprain of neck 09/10/2007 07/22/2017 Pathologic fracture of vertebrae 10/13/2005 07/22/2017 Backache, unspecified 09/24/2005 04/23/2017 Thoracic or lumbosacral neuritis or radiculitis, unspecified 09/24/2005 07/22/2017 Pes anserinus tendinitis or bursitis 09/04/2005 07/22/2017 Overview: RT Rotator cuff (capsule) sprain 06/21/2003 osteoporosis 04/23/2017 Apnea 12/05/2015 Overview: cpap Thyroid disorder 04/23/2017 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: Depression (non-psychotic) documented as of this encounter (statuses as of 05/09/2022) [facility] History of Past illness Narrative* Problem Noted Date Resolved Date Dysphagia 05/22/2016 01/21/2017 Ischemic colon 06/02/2012 04/23/2017 Colonic mass 06/02/2012 04/23/2017 Unspecified sleep apnea 01/04/2008 07/23/19 18 Overview: DME: [facility]# [phone]; fax# [phone] Lumbago 09/10/2007 04/23/2017 Sprain of neck 09/10/2007 07/22/2017 Pathologic fracture of vertebrae 10/13/2005 07/22/2017 Backache, unspecified 09/24/2005 04/23/2017 Thoracic or lumbosacral neuritis or radiculitis, unspecified 09/24/2005 07/22/2017 Pes anserinus tendinitis or bursitis 09/04/2005 07/22/2017 Overview: RT Rotator cuff (capsule) sprain 06/21/2003 osteoporosis 04/23/2017 Apnea 12/05/2015 Overview: cpap Thyroid disorder 04/23/2017 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: Depression (non-psychotic) documented as of this encounter (statuses as of 05/09/2022) [facility]2017 History of Past illness Narrative* Problem Noted Date Resolved Date Dysphagia 05/22/2016 01/21/2017 Ischemic colon 06/02/2012 04/23/2017 Colonic mass 06/02/2012 04/23/2017 Unspecified sleep apnea 01/04/2008 07/23/19 18 Overview: DME: [facility]# [phone]; fax# [phone] Lumbago 09/10/2007 04/23/2017 Sprain of neck 09/10/2007 07/22/2017 Pathologic fracture of vertebrae 10/13/2005 07/22/2017 Backache, unspecified 09/24/2005 04/23/2017 Thoracic or lumbosacral neuritis or radiculitis, unspecified 09/24/2005 07/22/2017 Pes anserinus tendinitis or bursitis 09/04/2005 07/22/2017 Overview: RT Rotator cuff (capsule) sprain 06/21/2003 osteoporosis 04/23/2017 Apnea 12/05/2015 Overview: cpap Thyroid disorder 04/23/2017 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: Depression (non-psychotic) documented as of this encounter (statuses as of 05/12/2022) [facility] History of Past illness Narrative* Problem Noted Date Resolved Date Dysphagia 05/22/2016 01/21/2017 Ischemic colon 06/02/2012 04/23/2017 Colonic mass 06/02/2012 04/23/2017 Unspecified sleep apnea 01/04/2008 07/23/19 18 Overview: DME: [facility]# [phone]; fax# [phone] Lumbago 09/10/2007 04/23/2017 Sprain of neck 09/10/2007 07/22/2017 Pathologic fracture of vertebrae 10/13/2005 07/22/2017 Backache, unspecified 09/24/2005 04/23/2017 Thoracic or lumbosacral neuritis or radiculitis, unspecified 09/24/2005 07/22/2017 Pes anserinus tendinitis or bursitis 09/04/2005 07/22/2017 Overview: RT Rotator cuff (capsule) sprain 06/21/2003 osteoporosis 04/23/2017 Apnea 12/05/2015 Overview: cpap Thyroid disorder 04/23/2017 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: Depression (non-psychotic) documented as of this encounter (statuses as of 05/22/2022) [facility]2017 History of Past illness Narrative* Problem Noted Date Resolved Date Dysphagia 05/22/2016 01/21/2017 Ischemic colon 06/02/2012 04/23/2017 Colonic mass 06/02/2012 04/23/2017 Unspecified sleep apnea 01/04/2008 07/23/19 18 Overview: DME: [facility]# [phone]; fax# [phone] Lumbago 09/10/2007 04/23/2017 Sprain of neck 09/10/2007 07/22/2017 Pathologic fracture of vertebrae 10/13/2005 07/22/2017 Backache, unspecified 09/24/2005 04/23/2017 Thoracic or lumbosacral neuritis or radiculitis, unspecified 09/24/2005 07/22/2017 Pes anserinus tendinitis or bursitis 09/04/2005 07/22/2017 Overview: RT Rotator cuff (capsule) sprain 06/21/2003 osteoporosis 04/23/2017 Apnea 12/05/2015 Overview: cpap Thyroid disorder 04/23/2017 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: Depression (non-psychotic) documented as of this encounter (statuses as of 05/22/2022) [facility] History of Past illness Narrative* Problem Noted Date Resolved Date Dysphagia 05/22/2016 01/21/2017 Ischemic colon 06/02/2012 04/23/2017 Colonic mass 06/02/2012 04/23/2017 Unspecified sleep apnea 01/04/2008 07/23/19 Overview: DME: [facility] # [phone]; fax# [phone] Lumbago 09/10/2007 04/23/2017 Sprain of neck 09/10/2007 07/22/2017 Pathologic fracture of vertebrae 10/13/2005 07/22/2017 Backache, unspecified 09/24/2005 04/23/2017 Thoracic or lumbosacral neuritis or radiculitis, unspecified 09/24/2005 07/22/2017 Pes anserinus tendinitis or bursitis 09/04/2005 07/22/2017 Overview: RT Rotator cuff (capsule) sprain 06/21/2003 osteoporosis 04/23/2017 Apnea 12/05/2015 Overview: cpap Thyroid disorder 04/23/2017 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: Depression (non-psychotic) documented as of this encounter (statuses as of 05/27/2022) [facility] History of Past illness Narrative* Problem Noted Date Resolved Date Dysphagia 05/22/2016 01/21/2017 Ischemic colon 06/02/2012 04/23/2017 Colonic mass 06/02/2012 04/23/2017 Unspecified sleep apnea 01/04/2008 07/23/19 18 Overview: DME: [facility]# [phone]; fax# [phone] Lumbago 09/10/2007 04/23/2017 Sprain of neck 09/10/2007 07/22/2017 Pathologic fracture of vertebrae 10/13/2005 07/22/2017 Backache, unspecified 09/24/2005 04/23/2017 Thoracic or lumbosacral neuritis or radiculitis, unspecified 09/24/2005 07/22/2017 Pes anserinus tendinitis or bursitis 09/04/2005 07/22/2017 Overview: RT Rotator cuff (capsule) sprain 06/21/2003 osteoporosis 04/23/2017 Apnea 12/05/2015 Overview: cpap Thyroid disorder 04/23/2017 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: Depression (non-psychotic) documented as of this encounter (statuses as of 06/04/2022) [facility] History of Past illness Narrative* Problem Noted Date Resolved Date Dysphagia 05/22/2016 01/21/2017 Ischemic colon 06/02/2012 04/23/2017 Colonic mass 06/02/2012 04/23/2017 Unspecified sleep apnea 01/04/2008 07/23/19 18 Overview: DME: [facility]# [phone]; fax# [phone] Lumbago 09/10/2007 04/23/2017 Sprain of neck 09/10/2007 07/22/2017 Pathologic fracture of vertebrae 10/13/2005 07/22/2017 Backache, unspecified 09/24/2005 04/23/2017 Thoracic or lumbosacral neuritis or radiculitis, unspecified 09/24/2005 07/22/2017 Pes anserinus tendinitis or bursitis 09/04/2005 07/22/2017 Overview: RT Rotator cuff (capsule) sprain 06/21/2003 osteoporosis 04/23/2017 Apnea 12/05/2015 Overview: cpap Thyroid disorder 04/23/2017 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: Depression (non-psychotic) documented as of this encounter (statuses as of 06/12/2022) [facility] History of Past illness Narrative* Problem Noted Date Resolved Date Dysphagia 05/22/2016 01/21/2017 Ischemic colon 06/02/2012 04/23/2017 Colonic mass 06/02/2012 04/23/2017 Unspecified sleep apnea 01/04/2008 07/23/19 18 Overview: DME: [facility] # [phone]; fax# [phone] Lumbago 09/10/2007 04/23/2017 Sprain of neck 09/10/2007 07/22/2017 Pathologic fracture of vertebrae 10/13/2005 07/22/2017 Backache, unspecified 09/24/2005 04/23/2017 Thoracic or lumbosacral neuritis or radiculitis, unspecified 09/24/2005 07/22/2017 Pes anserinus tendinitis or bursitis 09/04/2005 07/22/2017 Overview: RT Rotator cuff (capsule) sprain 06/21/2003 osteoporosis 04/23/2017 Apnea 12/05/2015 Overview: cpap Thyroid disorder 04/23/2017 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: Depression (non-psychotic) documented as of this encounter (statuses as of 06/13/2022) [facility] History of Past illness Narrative* Problem Noted Date Resolved Date Dysphagia 05/22/2016 01/21/2017 Ischemic colon 06/02/2012 04/23/2017 Colonic mass 06/02/2012 04/23/2017 Unspecified sleep apnea 01/04/2008 07/23/19 18 Overview: DME: [facility]# [phone]; fax# [phone] Lumbago 09/10/2007 04/23/2017 Sprain of neck 09/10/2007 07/22/2017 Pathologic fracture of vertebrae 10/13/2005 07/22/2017 Backache, unspecified 09/24/2005 04/23/2017 Thoracic or lumbosacral neuritis or radiculitis, unspecified 09/24/2005 07/22/2017 Pes anserinus tendinitis or bursitis 09/04/2005 07/22/2017 Overview: RT Rotator cuff (capsule) sprain 06/21/2003 osteoporosis 04/23/2017 Apnea 12/05/2015 Overview: cpap Thyroid disorder 04/23/2017 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: Depression (non-psychotic) documented as of this encounter (statuses as of 06/19/2022) [facility] History of Past illness Narrative* Problem Noted Date Resolved Date Dysphagia 05/22/2016 01/21/2017 Ischemic colon 06/02/2012 04/23/2017 Colonic mass 06/02/2012 04/23/2017 Unspecified sleep apnea 01/04/2008 07/23/19 18 Overview: DME: [facility]# [phone]; fax# [phone] Lumbago 09/10/2007 04/23/2017 Sprain of neck 09/10/2007 07/22/2017 Pathologic fracture of vertebrae 10/13/2005 07/22/2017 Backache, unspecified 09/24/2005 04/23/2017 Thoracic or lumbosacral neuritis or radiculitis, unspecified 09/24/2005 07/22/2017 Pes anserinus tendinitis or bursitis 09/04/2005 07/22/2017 Overview: RT Rotator cuff (capsule) sprain 06/21/2003 osteoporosis 04/23/2017 Apnea 12/05/2015 Overview: cpap Thyroid disorder 04/23/2017 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: Depression (non-psychotic) documented as of this encounter (statuses as of 06/25/2022) [facility] History of Past illness Narrative* Problem Noted Date Resolved Date Dysphagia 05/22/2016 01/21/2017 Ischemic colon 06/02/2012 04/23/2017 Colonic mass 06/02/2012 04/23/2017 Unspecified sleep apnea 01/04/2008 07/23/19 Overview: DME: [facility] # [phone]; fax# [phone] Lumbago 09/10/2007 04/23/2017 Sprain of neck 09/10/2007 07/22/2017 Pathologic fracture of vertebrae 10/13/2005 07/22/2017 Backache, unspecified 09/24/2005 04/23/2017 Thoracic or lumbosacral neuritis or radiculitis, unspecified 09/24/2005 07/22/2017 Pes anserinus tendinitis or bursitis 09/04/2005 07/22/2017 Overview: RT Rotator cuff (capsule) sprain 06/21/2003 osteoporosis 04/23/2017 Apnea 12/05/2015 Overview: cpap Thyroid disorder 04/23/2017 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: Depression (non-psychotic) documented as of this encounter (statuses as of 06/26/2022) [facility] History of Past illness Narrative* Problem Noted Date Resolved Date Dysphagia 05/22/2016 01/21/2017 Ischemic colon 06/02/2012 04/23/2017 Colonic mass 06/02/2012 04/23/2017 Unspecified sleep apnea 01/04/2008 07/23/19 18 Overview: DME: [facility]# [phone]; fax# [phone] Lumbago 09/10/2007 04/23/2017 Sprain of neck 09/10/2007 07/22/2017 Pathologic fracture of vertebrae 10/13/2005 07/22/2017 Backache, unspecified 09/24/2005 04/23/2017 Thoracic or lumbosacral neuritis or radiculitis, unspecified 09/24/2005 07/22/2017 Pes anserinus tendinitis or bursitis 09/04/2005 07/22/2017 Overview: RT Rotator cuff (capsule) sprain 06/21/2003 osteoporosis 04/23/2017 Apnea 12/05/2015 Overview: cpap Thyroid disorder 04/23/2017 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: Depression (non-psychotic) documented as of this encounter (statuses as of 07/09/2022) [facility] History of Past illness Narrative* Problem Noted Date Resolved Date Dysphagia 05/22/2016 01/21/2017 Ischemic colon 06/02/2012 04/23/2017 Colonic mass 06/02/2012 04/23/2017 Unspecified sleep apnea 01/04/2008 07/23/19 18 Overview: DME: [facility]# [phone]; fax# [phone] Lumbago 09/10/2007 04/23/2017 Sprain of neck 09/10/2007 07/22/2017 Pathologic fracture of vertebrae 10/13/2005 07/22/2017 Backache, unspecified 09/24/2005 04/23/2017 Thoracic or lumbosacral neuritis or radiculitis, unspecified 09/24/2005 07/22/2017 Pes anserinus tendinitis or bursitis 09/04/2005 07/22/2017 Overview: RT Rotator cuff (capsule) sprain 06/21/2003 osteoporosis 04/23/2017 Apnea 12/05/2015 Overview: cpap Thyroid disorder 04/23/2017 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: Depression (non-psychotic) documented as of this encounter (statuses as of 07/10/2022) [facility] History of Past illness Narrative* Problem Noted Date Resolved Date Dysphagia 05/22/2016 01/21/2017 Ischemic colon 06/02/2012 04/23/2017 Colonic mass 06/02/2012 04/23/2017 Unspecified sleep apnea 01/04/2008 07/23/19 18 Overview: DME: [facility]# [phone]; fax# [phone] Lumbago 09/10/2007 04/23/2017 Sprain of neck 09/10/2007 07/22/2017 Pathologic fracture of vertebrae 10/13/2005 07/22/2017 Backache, unspecified 09/24/2005 04/23/2017 Thoracic or lumbosacral neuritis or radiculitis, unspecified 09/24/2005 07/22/2017 Pes anserinus tendinitis or bursitis 09/04/2005 07/22/2017 Overview: RT Rotator cuff (capsule) sprain 06/21/2003 osteoporosis 04/23/2017 Apnea 12/05/2015 Overview: cpap Thyroid disorder 04/23/2017 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: Depression (non-psychotic) documented as of this encounter (statuses as of 07/11/2022) [facility] History of Past illness Narrative* Problem Noted Date Resolved Date Dysphagia 05/22/2016 01/21/2017 Ischemic colon 06/02/2012 04/23/2017 Colonic mass 06/02/2012 04/23/2017 Unspecified sleep apnea 01/04/2008 07/23/19 18 Overview: DME: [facility]# [phone]; fax# [phone] Lumbago 09/10/2007 04/23/2017 Sprain of neck 09/10/2007 07/22/2017 Pathologic fracture of vertebrae 10/13/2005 07/22/2017 Backache, unspecified 09/24/2005 04/23/2017 Thoracic or lumbosacral neuritis or radiculitis, unspecified 09/24/2005 07/22/2017 Pes anserinus tendinitis or bursitis 09/04/2005 07/22/2017 Overview: RT Rotator cuff (capsule) sprain 06/21/2003 osteoporosis 04/23/2017 Apnea 12/05/2015 Overview: cpap Thyroid disorder 04/23/2017 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: Depression (non-psychotic) documented as of this encounter (statuses as of 08/14/2022) [facility] History of Past illness Narrative* Problem Noted Date Resolved Date Dysphagia 05/22/2016 01/21/2017 Ischemic colon 06/02/2012 04/23/2017 Colonic mass 06/02/2012 04/23/2017 Unspecified sleep apnea 01/04/2008 07/23/19 18 Overview: DME: [facility] # [phone]; fax# [phone] Lumbago 09/10/2007 04/23/2017 Sprain of neck 09/10/2007 07/22/2017 Pathologic fracture of vertebrae 10/13/2005 07/22/2017 Backache, unspecified 09/24/2005 04/23/2017 Thoracic or lumbosacral neuritis or radiculitis, unspecified 09/24/2005 07/22/2017 Pes anserinus tendinitis or bursitis 09/04/2005 07/22/2017 Overview: RT Rotator cuff (capsule) sprain 06/21/2003 osteoporosis 04/23/2017 Apnea 12/05/2015 Overview: cpap Thyroid disorder 04/23/2017 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: Depression (non-psychotic) documented as of this encounter (statuses as of 08/15/2022) [facility] History of Past illness Narrative* Problem Noted Date Resolved Date Dysphagia 05/22/2016 01/21/2017 Ischemic colon 06/02/2012 04/23/2017 Colonic mass 06/02/2012 04/23/2017 Unspecified sleep apnea 01/04/2008 07/23/19 18 Overview: DME: [facility]# [phone]; fax# [phone] Lumbago 09/10/2007 04/23/2017 Sprain of neck 09/10/2007 07/22/2017 Pathologic fracture of vertebrae 10/13/2005 07/22/2017 Backache, unspecified 09/24/2005 04/23/2017 Thoracic or lumbosacral neuritis or radiculitis, unspecified 09/24/2005 07/22/2017 Pes anserinus tendinitis or bursitis 09/04/2005 07/22/2017 Overview: RT Rotator cuff (capsule) sprain 06/21/2003 osteoporosis 04/23/2017 Apnea 12/05/2015 Overview: cpap Thyroid disorder 04/23/2017 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: Depression (non-psychotic) documented as of this encounter (statuses as of 08/16/2022) [facility] History of Past illness Narrative* Problem Noted Date Resolved Date Dysphagia 05/22/2016 01/21/2017 Ischemic colon 06/02/2012 04/23/2017 Colonic mass 06/02/2012 04/23/2017 Unspecified sleep apnea 01/04/2008 07/23/19 18 Overview: DME: [facility]# [phone]; fax# [phone] Lumbago 09/10/2007 04/23/2017 Sprain of neck 09/10/2007 07/22/2017 Pathologic fracture of vertebrae 10/13/2005 07/22/2017 Backache, unspecified 09/24/2005 04/23/2017 Thoracic or lumbosacral neuritis or radiculitis, unspecified 09/24/2005 07/22/2017 Pes anserinus tendinitis or bursitis 09/04/2005 07/22/2017 Overview: RT Rotator cuff (capsule) sprain 06/21/2003 osteoporosis 04/23/2017 Apnea 12/05/2015 Overview: cpap Thyroid disorder 04/23/2017 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: Depression (non-psychotic) documented as of this encounter (statuses as of 08/22/2022) [facility] History of Past illness Narrative* Problem Noted Date Resolved Date Dysphagia 05/22/2016 01/21/2017 Ischemic colon 06/02/2012 04/23/2017 Colonic mass 06/02/2012 04/23/2017 Unspecified sleep apnea 01/04/2008 07/23/19 Overview: DME: [facility] # [phone]; fax# [phone] Lumbago 09/10/2007 04/23/2017 Sprain of neck 09/10/2007 07/22/2017 Pathologic fracture of vertebrae 10/13/2005 07/22/2017 Backache, unspecified 09/24/2005 04/23/2017 Thoracic or lumbosacral neuritis or radiculitis, unspecified 09/24/2005 07/22/2017 Pes anserinus tendinitis or bursitis 09/04/2005 07/22/2017 Overview: RT Rotator cuff (capsule) sprain 06/21/2003 osteoporosis 04/23/2017 Apnea 12/05/2015 Overview: cpap Thyroid disorder 04/23/2017 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: Depression (non-psychotic) documented as of this encounter (statuses as of 08/22/2022) [facility]2017 History of Past illness Narrative* Problem Noted Date Resolved Date Dysphagia 05/22/2016 01/21/2017 Ischemic colon 06/02/2012 04/23/2017 Colonic mass 06/02/2012 04/23/2017 Unspecified sleep apnea 01/04/2008 07/23/19 18 Overview: DME: [facility]# [phone]; fax# [phone] Lumbago 09/10/2007 04/23/2017 Sprain of neck 09/10/2007 07/22/2017 Pathologic fracture of vertebrae 10/13/2005 07/22/2017 Backache, unspecified 09/24/2005 04/23/2017 Thoracic or lumbosacral neuritis or radiculitis, unspecified 09/24/2005 07/22/2017 Pes anserinus tendinitis or bursitis 09/04/2005 07/22/2017 Overview: RT Rotator cuff (capsule) sprain 06/21/2003 osteoporosis 04/23/2017 Apnea 12/05/2015 Overview: cpap Thyroid disorder 04/23/2017 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: Depression (non-psychotic) documented as of this encounter (statuses as of 08/23/2022) [facility]2017 History of Past illness Narrative* Problem Noted Date Resolved Date Dysphagia 05/22/2016 01/21/2017 Ischemic colon 06/02/2012 04/23/2017 Colonic mass 06/02/2012 04/23/2017 Unspecified sleep apnea 01/04/2008 07/23/19 18 Overview: DME: [facility]# [phone]; fax# [phone] Lumbago 09/10/2007 04/23/2017 Sprain of neck 09/10/2007 07/22/2017 Pathologic fracture of vertebrae 10/13/2005 07/22/2017 Backache, unspecified 09/24/2005 04/23/2017 Thoracic or lumbosacral neuritis or radiculitis, unspecified 09/24/2005 07/22/2017 Pes anserinus tendinitis or bursitis 09/04/2005 07/22/2017 Overview: RT Rotator cuff (capsule) sprain 06/21/2003 osteoporosis 04/23/2017 Apnea 12/05/2015 Overview: cpap Thyroid disorder 04/23/2017 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: Depression (non-psychotic) documented as of this encounter (statuses as of 08/26/2022) [facility]2017 History of Past illness Narrative* Problem Noted Date Diagnosed Date Resolved Date Dysphagia 05/22/2016 01/21/2017 Ischemic colon 06/02/2012 04/23/2017 Colonic mass 06/02/2012 04/23/2017 Unspecified sleep apnea 01/04/200807/01 Overview: DME: [facility] # [phone]; fax# [phone] Lumbago 09/10/2007 04/23/2017 Sprain of neck 09/10/2007 07/22/2017 Pathologic fracture of vertebrae 10/13/2005 07/22/2017 Backache, unspecified 09/24/20052017 Thoracic or lumbosacral neur itis or radiculitis, unspecified 09/24/2005 07/22/2017 Pes anserinus tendinitis or bursitis 09/04/2005 07/22/2017 Overview: RT Rotator cuff (capsule) sprain 06/21/2003 07/22/2017 osteoporosis 04/23/2017 Apnea 12/05/2015 Overview: cpap Thyroid disorder 04/23/2017 Dysthymic disorder 8 Overview: Depression (non-psychotic) documented as of this encounter (statuses as of 09/07/2022) [facility]2017 History of Past illness Narrative* Problem Noted Date Diagnosed Date Resolved Date Dysphagia 05/22/2016 01/21/2017 Ischemic colon 06/02/2012 04/23/2017 Colonic mass 06/02/2012 04/23/2017 Unspecified sleep apnea 01/04/200807/01 Overview: DME: [facility]# [phone]; fax# [phone] Lumbago 09/10/2007 04/23/2017 Sprain of neck 09/10/2007 07/22/2017 Pathologic fracture of vertebrae 10/13/2005 07/22/2017 Backache, unspecified 09/24/20052017 Thoracic or lumbosacral neur itis or radiculitis, unspecified 09/24/2005 07/22/2017 Pes anserinus tendinitis or bursitis 09/04/2005 07/22/2017 Overview: RT Rotator cuff (capsule) sprain 06/21/2003 07/22/2017 osteoporosis 04/23/2017 Apnea 12/05/2015 Overview: cpap Thyroid disorder 04/23/2017 Dysthymic disorder 8 Overview: Depression (non-psychotic) documented as of this encounter (statuses as of 09/09/2022) [facility]2017 History of Past illness Narrative* Problem Noted Date Diagnosed Date Resolved Date Dysphagia 05/22/2016 01/21/2017 Ischemic colon 06/02/2012 04/23/2017 Colonic mass 06/02/2012 04/23/2017 Unspecified sleep apnea 01/04/200807/01 Overview: DME: [facility]# [phone]; fax# [phone] Lumbago 09/10/2007 04/23/2017 Sprain of neck 09/10/2007 07/22/2017 Pathologic fracture of vertebrae 10/13/2005 07/22/2017 Backache, unspecified 09/24/20052017 Thoracic or lumbosacral neur itis or radiculitis, unspecified 09/24/2005 07/22/2017 Pes anserinus tendinitis or bursitis 09/04/2005 07/22/2017 Overview: RT Rotator cuff (capsule) sprain 06/21/2003 07/22/2017 osteoporosis 04/23/2017 Apnea 12/05/2015 Overview: cpap Thyroid disorder 04/23/2017 Dysthymic disorder 8 Overview: Depression (non-psychotic) documented as of this encounter (statuses as of 09/26/2022) [facility]2017 History of Past illness Narrative* Problem Noted Date Diagnosed Date Resolved Date Dysphagia 05/22/2016 01/21/2017 Ischemic colon 06/02/2012 04/23/2017 Colonic mass 06/02/2012 04/23/2017 Unspecified sleep apnea 01/04/200807/01 Overview: DME: [facility] # [phone]; fax# [phone] Lumbago 09/10/2007 04/23/2017 Sprain of neck 09/10/2007 07/22/2017 Pathologic fracture of vertebrae 10/13/2005 07/22/2017 Backache, unspecified 09/24/20052017 Thoracic or lumbosacral neur itis or radiculitis, unspecified 09/24/2005 07/22/2017 Pes anserinus tendinitis or bursitis 09/04/2005 07/22/2017 Overview: RT Rotator cuff (capsule) sprain 06/21/2003 07/22/2017 osteoporosis 04/23/2017 Apnea 12/05/2015 Overview: cpap Thyroid disorder 04/23/2017 Dysthymic disorder 8 Overview: Depression (non-psychotic) documented as of this encounter (statuses as of 09/26/2022) [facility]2017 History of Past illness Narrative* Problem Noted Date Diagnosed Date Resolved Date Dysphagia 05/22/2016 01/21/2017 Ischemic colon 06/02/2012 04/23/2017 Colonic mass 06/02/2012 04/23/2017 Unspecified sleep apnea 01/04/200807/01 Overview: DME: [facility] # [phone]; fax# [phone] Lumbago 09/10/2007 04/23/2017 Sprain of neck 09/10/2007 07/22/2017 Pathologic fracture of vertebrae 10/13/2005 07/22/2017 Backache, unspecified 09/24/20052017 Thoracic or lumbosacral neur itis or radiculitis, unspecified 09/24/2005 07/22/2017 Pes anserinus tendinitis or bursitis 09/04/2005 07/22/2017 Overview: RT Rotator cuff (capsule) sprain 06/21/2003 07/22/2017 osteoporosis 04/23/2017 Apnea 12/05/2015 Overview: cpap Thyroid disorder 04/23/2017 Dysthymic disorder 8 Overview: Depression (non-psychotic) documented as of this encounter (statuses as of 10/01/2022) [facility]2017 History of Past illness Narrative* Problem Noted Date Diagnosed Date Resolved Date Dysphagia 05/22/2016 01/21/2017 Ischemic colon 06/02/2012 04/23/2017 Colonic mass 06/02/2012 04/23/2017 Unspecified sleep apnea 01/04/200807/01 Overview: DME: [facility] # [phone]; fax# [phone] Lumbago 09/10/2007 04/23/2017 Sprain of neck 09/10/2007 07/22/2017 Pathologic fracture of vertebrae 10/13/2005 07/22/2017 Backache, unspecified 09/24/20052017 Thoracic or lumbosacral neur itis or radiculitis, unspecified 09/24/2005 07/22/2017 Pes anserinus tendinitis or bursitis 09/04/2005 07/22/2017 Overview: RT Rotator cuff (capsule) sprain 06/21/2003 07/22/2017 osteoporosis 04/23/2017 Apnea 12/05/2015 Overview: cpap Thyroid disorder 04/23/2017 Dysthymic disorder 8 Overview: Depression (non-psychotic) documented as of this encounter (statuses as of 10/08/2022) [facility]2017 History of Past illness Narrative* Problem Noted Date Diagnosed Date Resolved Date Dysphagia 05/22/2016 01/21/2017 Ischemic colon 06/02/2012 04/23/2017 Colonic mass 06/02/2012 04/23/2017 Unspecified sleep apnea 01/04/200807/01 Overview: DME: [facility] # [phone]; fax# [phone] Lumbago 09/10/2007 04/23/2017 Sprain of neck 09/10/2007 07/22/2017 Pathologic fracture of vertebrae 10/13/2005 07/22/2017 Backache, unspecified 09/24/20052017 Thoracic or lumbosacral neur itis or radiculitis, unspecified 09/24/2005 07/22/2017 Pes anserinus tendinitis or bursitis 09/04/2005 07/22/2017 Overview: RT Rotator cuff (capsule) sprain 06/21/2003 07/22/2017 osteoporosis 04/23/2017 Apnea 12/05/2015 Overview: cpap Thyroid disorder 04/23/2017 Dysthymic disorder 8 Overview: Depression (non-psychotic) documented as of this encounter (statuses as of 10/08/2022) [facility]2017 History of Past illness Narrative* Problem Noted Date Diagnosed Date Resolved Date Dysphagia 05/22/2016 01/21/2017 Ischemic colon 06/02/2012 04/23/2017 Colonic mass 06/02/2012 04/23/2017 Unspecified sleep apnea 01/04/200807/01 Overview: DME: [facility]# [phone]; fax# [phone] Lumbago 09/10/2007 04/23/2017 Sprain of neck 09/10/2007 07/22/2017 Pathologic fracture of vertebrae 10/13/2005 07/22/2017 Backache, unspecified 09/24/20052017 Thoracic or lumbosacral neur itis or radiculitis, unspecified 09/24/2005 07/22/2017 Pes anserinus tendinitis or bursitis 09/04/2005 07/22/2017 Overview: RT Rotator cuff (capsule) sprain 06/21/2003 07/22/2017 osteoporosis 04/23/2017 Apnea 12/05/2015 Overview: cpap Thyroid disorder 04/23/2017 Dysthymic disorder 8 Overview: Depression (non-psychotic) documented as of this encounter (statuses as of 10/15/2022) [facility]2017 History of Past illness Narrative* Problem Noted Date Diagnosed Date Resolved Date Dysphagia 05/22/2016 01/21/2017 Ischemic colon 06/02/2012 04/23/2017 Colonic mass 06/02/2012 04/23/2017 Unspecified sleep apnea 01/04/200807/01 Overview: DME: [facility]# [phone]; fax# [phone] Lumbago 09/10/2007 04/23/2017 Sprain of neck 09/10/2007 07/22/2017 Pathologic fracture of vertebrae 10/13/2005 07/22/2017 Backache, unspecified 09/24/20052017 Thoracic or lumbosacral neur itis or radiculitis, unspecified 09/24/2005 07/22/2017 Pes anserinus tendinitis or bursitis 09/04/2005 07/22/2017 Overview: RT Rotator cuff (capsule) sprain 06/21/2003 07/22/2017 osteoporosis 04/23/2017 Apnea 12/05/2015 Overview: cpap Thyroid disorder 04/23/2017 Dysthymic disorder 8 Overview: Depression (non-psychotic) documented as of this encounter (statuses as of 10/21/2022) [facility]2017 History of Past illness Narrative* Problem Noted Date Diagnosed Date Resolved Date Dysphagia 05/22/2016 01/21/2017 Ischemic colon 06/02/2012 04/23/2017 Colonic mass 06/02/2012 04/23/2017 Unspecified sleep apnea 01/04/200807/01 Overview: DME: [facility]# [phone]; fax# [phone] Lumbago 09/10/2007 04/23/2017 Sprain of neck 09/10/2007 07/22/2017 Pathologic fracture of vertebrae 10/13/2005 07/22/2017 Backache, unspecified 09/24/20052017 Thoracic or lumbosacral neur itis or radiculitis, unspecified 09/24/2005 07/22/2017 Pes anserinus tendinitis or bursitis 09/04/2005 07/22/2017 Overview: RT Rotator cuff (capsule) sprain 06/21/2003 07/22/2017 osteoporosis 04/23/2017 Apnea 12/05/2015 Overview: cpap Thyroid disorder 04/23/2017 Dysthymic disorder 8 Overview: Depression (non-psychotic) documented as of this encounter (statuses as of 10/22/2022) [facility]2017 History of Past illness Narrative* Problem Noted Date Diagnosed Date Resolved Date Dysphagia 05/22/2016 01/21/2017 Ischemic colon 06/02/2012 04/23/2017 Colonic mass 06/02/2012 04/23/2017 Unspecified sleep apnea 01/04/200807/01 Overview: DME: [facility]# [phone]; fax# [phone] Lumbago 09/10/2007 04/23/2017 Sprain of neck 09/10/2007 07/22/2017 Pathologic fracture of vertebrae 10/13/2005 07/22/2017 Backache, unspecified 09/24/20052017 Thoracic or lumbosacral neur itis or radiculitis, unspecified 09/24/2005 07/22/2017 Pes anserinus tendinitis or bursitis 09/04/2005 07/22/2017 Overview: RT Rotator cuff (capsule) sprain 06/21/2003 07/22/2017 osteoporosis 04/23/2017 Apnea 12/05/2015 Overview: cpap Thyroid disorder 04/23/2017 Dysthymic disorder 8 Overview: Depression (non-psychotic) documented as of this encounter (statuses as of 10/23/2022) [facility]2017 History of Past illness Narrative* Problem Noted Date Diagnosed Date Resolved Date Dysphagia 05/22/2016 01/21/2017 Ischemic colon 06/02/2012 04/23/2017 Colonic mass 06/02/2012 04/23/2017 Unspecified sleep apnea 01/04/200807/01 Overview: DME: [facility] # [phone]; fax# [phone] Lumbago 09/10/2007 04/23/2017 Sprain of neck 09/10/2007 07/22/2017 Pathologic fracture of vertebrae 10/13/2005 07/22/2017 Backache, unspecified 09/24/20052017 Thoracic or lumbosacral neur itis or radiculitis, unspecified 09/24/2005 07/22/2017 Pes anserinus tendinitis or bursitis 09/04/2005 07/22/2017 Overview: RT Rotator cuff (capsule) sprain 06/21/2003 07/22/2017 osteoporosis 04/23/2017 Apnea 12/05/2015 Overview: cpap Thyroid disorder 04/23/2017 Dysthymic disorder 8 Overview: Depression (non-psychotic) documented as of this encounter (statuses as of 10/23/2022) [facility]2017 History of Past illness Narrative* Problem Noted Date Diagnosed Date Resolved Date Dysphagia 05/22/2016 01/21/2017 Ischemic colon 06/02/2012 04/23/2017 Colonic mass 06/02/2012 04/23/2017 Unspecified sleep apnea 01/04/200807/01 Overview: DME: [facility]# [phone]; fax# [phone] Lumbago 09/10/2007 04/23/2017 Sprain of neck 09/10/2007 07/22/2017 Pathologic fracture of vertebrae 10/13/2005 07/22/2017 Backache, unspecified 09/24/20052017 Thoracic or lumbosacral neur itis or radiculitis, unspecified 09/24/2005 07/22/2017 Pes anserinus tendinitis or bursitis 09/04/2005 07/22/2017 Overview: RT Rotator cuff (capsule) sprain 06/21/2003 07/22/2017 osteoporosis 04/23/2017 Apnea 12/05/2015 Overview: cpap Thyroid disorder 04/23/2017 Dysthymic disorder 8 Overview: Depression (non-psychotic) documented as of this encounter (statuses as of 10/25/2022) [facility]2017 History of Past illness Narrative* Problem Noted Date Diagnosed Date Resolved Date Dysphagia 05/22/2016 01/21/2017 Ischemic colon 06/02/2012 04/23/2017 Colonic mass 06/02/2012 04/23/2017 Unspecified sleep apnea 01/04/200807/01 Overview: DME: [facility]# [phone]; fax# [phone] Lumbago 09/10/2007 04/23/2017 Sprain of neck 09/10/2007 07/22/2017 Pathologic fracture of vertebrae 10/13/2005 07/22/2017 Backache, unspecified 09/24/20052017 Thoracic or lumbosacral neur itis or radiculitis, unspecified 09/24/2005 07/22/2017 Pes anserinus tendinitis or bursitis 09/04/2005 07/22/2017 Overview: RT Rotator cuff (capsule) sprain 06/21/2003 07/22/2017 osteoporosis 04/23/2017 Apnea 12/05/2015 Overview: cpap Thyroid disorder 04/23/2017 Dysthymic disorder 8 Overview: Depression (non-psychotic) documented as of this encounter (statuses as of 10/30/2022) [facility]2017 History of Past illness Narrative* Problem Noted Date Diagnosed Date Resolved Date Dysphagia 05/22/2016 01/21/2017 Ischemic colon 06/02/2012 04/23/2017 Colonic mass 06/02/2012 04/23/2017 Unspecified sleep apnea 01/04/200807/01 Overview: DME: [facility] # [phone]; fax# [phone] Lumbago 09/10/2007 04/23/2017 Sprain of neck 09/10/2007 07/22/2017 Pathologic fracture of vertebrae 10/13/2005 07/22/2017 Backache, unspecified 09/24/20052017 Thoracic or lumbosacral neur itis or radiculitis, unspecified 09/24/2005 07/22/2017 Pes anserinus tendinitis or bursitis 09/04/2005 07/22/2017 Overview: RT Rotator cuff (capsule) sprain 06/21/2003 07/22/2017 osteoporosis 04/23/2017 Apnea 12/05/2015 Overview: cpap Thyroid disorder 04/23/2017 Dysthymic disorder 8 Overview: Depression (non-psychotic) documented as of this encounter (statuses as of 11/05/2022) [facility] History of Past illness Narrative* Problem Noted Date Diagnosed Date Resolved Date Dysphagia 05/22/2016 01/21/2017 Ischemic colon 06/02/2012 04/23/2017 Colonic mass 06/02/2012 04/23/2017 Unspecified sleep apnea 01/04/200807/01 Overview: DME: [facility]# [phone]; fax# [phone] Lumbago 09/10/2007 04/23/2017 Sprain of neck 09/10/2007 07/22/2017 Pathologic fracture of vertebrae 10/13/2005 07/22/2017 Backache, unspecified 09/24/20052017 Thoracic or lumbosacral neur itis or radiculitis, unspecified 09/24/2005 07/22/2017 Pes anserinus tendinitis or bursitis 09/04/2005 07/22/2017 Overview: RT Rotator cuff (capsule) sprain 06/21/2003 07/22/2017 osteoporosis 04/23/2017 Apnea 12/05/2015 Overview: cpap Thyroid disorder 04/23/2017 Dysthymic disorder 8 Overview: Depression (non-psychotic) documented as of this encounter (statuses as of 11/10/2022) [facility]2017 History of Past illness Narrative* Problem Noted Date Diagnosed Date Resolved Date Dysphagia 05/22/2016 01/21/2017 Ischemic colon 06/02/2012 04/23/2017 Colonic mass 06/02/2012 04/23/2017 Unspecified sleep apnea 01/04/200807/01 Overview: DME: [facility]# [phone]; fax# [phone] Lumbago 09/10/2007 04/23/2017 Sprain of neck 09/10/2007 07/22/2017 Pathologic fracture of vertebrae 10/13/2005 07/22/2017 Backache, unspecified 09/24/20052017 Thoracic or lumbosacral neur itis or radiculitis, unspecified 09/24/2005 07/22/2017 Pes anserinus tendinitis or bursitis 09/04/2005 07/22/2017 Overview: RT Rotator cuff (capsule) sprain 06/21/2003 07/22/2017 osteoporosis 04/23/2017 Apnea 12/05/2015 Overview: cpap Thyroid disorder 04/23/2017 Dysthymic disorder 8 Overview: Depression (non-psychotic) documented as of this encounter (statuses as of 11/12/2022) [facility] History of Past illness Narrative* Problem Noted Date Diagnosed Date Resolved Date Dysphagia 05/22/2016 01/21/2017 Ischemic colon 06/02/2012 04/23/2017 Colonic mass 06/02/2012 04/23/2017 Unspecified sleep apnea 01/04/200807/01 Overview: DME: [facility] # [phone]; fax# [phone] Lumbago 09/10/2007 04/23/2017 Sprain of neck 09/10/2007 07/22/2017 Pathologic fracture of vertebrae 10/13/2005 07/22/2017 Backache, unspecified 09/24/20052017 Thoracic or lumbosacral neur itis or radiculitis, unspecified 09/24/2005 07/22/2017 Pes anserinus tendinitis or bursitis 09/04/2005 07/22/2017 Overview: RT Rotator cuff (capsule) sprain 06/21/2003 07/22/2017 osteoporosis 04/23/2017 Apnea 12/05/2015 Overview: cpap Thyroid disorder 04/23/2017 Dysthymic disorder 8 Overview: Depression (non-psychotic) documented as of this encounter (statuses as of 11/17/2022) [facility] History of Past illness Narrative* Problem Noted Date Diagnosed Date Resolved Date Dysphagia 05/22/2016 01/21/2017 Ischemic colon 06/02/2012 04/23/2017 Colonic mass 06/02/2012 04/23/2017 Unspecified sleep apnea 01/04/200807/01 Overview: DME: [facility]# [phone]; fax# [phone] Lumbago 09/10/2007 04/23/2017 Sprain of neck 09/10/2007 07/22/2017 Pathologic fracture of vertebrae 10/13/2005 07/22/2017 Backache, unspecified 09/24/20052017 Thoracic or lumbosacral neur itis or radiculitis, unspecified 09/24/2005 07/22/2017 Pes anserinus tendinitis or bursitis 09/04/2005 07/22/2017 Overview: RT Rotator cuff (capsule) sprain 06/21/2003 07/22/2017 osteoporosis 04/23/2017 Apnea 12/05/2015 Overview: cpap Thyroid disorder 04/23/2017 Dysthymic disorder 8 Overview: Depression (non-psychotic) documented as of this encounter (statuses as of 11/18/2022) [facility] History of Past illness Narrative* Problem Noted Date Diagnosed Date Resolved Date Dysphagia 05/22/2016 01/21/2017 Ischemic colon 06/02/2012 04/23/2017 Colonic mass 06/02/2012 04/23/2017 Unspecified sleep apnea 01/04/200807/01 Overview: DME: [facility]# [phone]; fax# [phone] Lumbago 09/10/2007 04/23/2017 Sprain of neck 09/10/2007 07/22/2017 Pathologic fracture of vertebrae 10/13/2005 07/22/2017 Backache, unspecified 09/24/20052017 Thoracic or lumbosacral neur itis or radiculitis, unspecified 09/24/2005 07/22/2017 Pes anserinus tendinitis or bursitis 09/04/2005 07/22/2017 Overview: RT Rotator cuff (capsule) sprain 06/21/2003 07/22/2017 osteoporosis 04/23/2017 Apnea 12/05/2015 Overview: cpap Thyroid disorder 04/23/2017 Dysthymic disorder 8 Overview: Depression (non-psychotic) documented as of this encounter (statuses as of 11/18/2022) [facility] History of Past illness Narrative* Problem Noted Date Diagnosed Date Resolved Date Dysphagia 05/22/2016 01/21/2017 Ischemic colon 06/02/2012 04/23/2017 Colonic mass 06/02/2012 04/23/2017 Unspecified sleep apnea 01/04/200807/01 Overview: DME: [facility] # [phone]; fax# [phone] Lumbago 09/10/2007 04/23/2017 Sprain of neck 09/10/2007 07/22/2017 Pathologic fracture of vertebrae 10/13/2005 07/22/2017 Backache, unspecified 09/24/20052017 Thoracic or lumbosacral neur itis or radiculitis, unspecified 09/24/2005 07/22/2017 Pes anserinus tendinitis or bursitis 09/04/2005 07/22/2017 Overview: RT Rotator cuff (capsule) sprain 06/21/2003 07/22/2017 osteoporosis 04/23/2017 Apnea 12/05/2015 Overview: cpap Thyroid disorder 04/23/2017 Dysthymic disorder 8 Overview: Depression (non-psychotic) documented as of this encounter (statuses as of 11/19/2022) [facility] History of Past illness Narrative* Problem Noted Date Diagnosed Date Resolved Date Dysphagia 05/22/2016 01/21/2017 Ischemic colon 06/02/2012 04/23/2017 Colonic mass 06/02/2012 04/23/2017 Unspecified sleep apnea 01/04/200807/01 Overview: DME: [facility]# [phone]; fax# [phone] Lumbago 09/10/2007 04/23/2017 Sprain of neck 09/10/2007 07/22/2017 Pathologic fracture of vertebrae 10/13/2005 07/22/2017 Backache, unspecified 09/24/20052017 Thoracic or lumbosacral neur itis or radiculitis, unspecified 09/24/2005 07/22/2017 Pes anserinus tendinitis or bursitis 09/04/2005 07/22/2017 Overview: RT Rotator cuff (capsule) sprain 06/21/2003 07/22/2017 osteoporosis 04/23/2017 Apnea 12/05/2015 Overview: cpap Thyroid disorder 04/23/2017 Dysthymic disorder 8 Overview: Depression (non-psychotic) documented as of this encounter (statuses as of 11/20/2022) [facility] History of Past illness Narrative* Problem Noted Date Diagnosed Date Resolved Date Dysphagia 05/22/2016 01/21/2017 Ischemic colon 06/02/2012 04/23/2017 Colonic mass 06/02/2012 04/23/2017 Unspecified sleep apnea 01/04/200807/01 Overview: DME: [facility]# [phone]; fax# [phone] Lumbago 09/10/2007 04/23/2017 Sprain of neck 09/10/2007 07/22/2017 Pathologic fracture of vertebrae 10/13/2005 07/22/2017 Backache, unspecified 09/24/20052017 Thoracic or lumbosacral neur itis or radiculitis, unspecified 09/24/2005 07/22/2017 Pes anserinus tendinitis or bursitis 09/04/2005 07/22/2017 Overview: RT Rotator cuff (capsule) sprain 06/21/2003 07/22/2017 osteoporosis 04/23/2017 Apnea 12/05/2015 Overview: cpap Thyroid disorder 04/23/2017 Dysthymic disorder 8 Overview: Depression (non-psychotic) documented as of this encounter (statuses as of 11/28/2022) [facility] History of Past illness Narrative* Problem Noted Date Diagnosed Date Resolved Date Dysphagia 05/22/2016 01/21/2017 Ischemic colon 06/02/2012 04/23/2017 Colonic mass 06/02/2012 04/23/2017 Unspecified sleep apnea 01/04/200807/01 Overview: DME: [facility] # [phone]; fax# [phone] Lumbago 09/10/2007 04/23/2017 Sprain of neck 09/10/2007 07/22/2017 Pathologic fracture of vertebrae 10/13/2005 07/22/2017 Backache, unspecified 09/24/20052017 Thoracic or lumbosacral neur itis or radiculitis, unspecified 09/24/2005 07/22/2017 Pes anserinus tendinitis or bursitis 09/04/2005 07/22/2017 Overview: RT Rotator cuff (capsule) sprain 06/21/2003 07/22/2017 osteoporosis 04/23/2017 Apnea 12/05/2015 Overview: cpap Thyroid disorder 04/23/2017 Dysthymic disorder 8 Overview: Depression (non-psychotic) documented as of this encounter (statuses as of 11/29/2022) [facility] History of Past illness Narrative* Problem Noted Date Diagnosed Date Resolved Date Dysphagia 05/22/2016 01/21/2017 Ischemic colon 06/02/2012 04/23/2017 Colonic mass 06/02/2012 04/23/2017 Unspecified sleep apnea 01/04/200807/01 Overview: DME: [facility] # [phone]; fax# [phone] Lumbago 09/10/2007 04/23/2017 Sprain of neck 09/10/2007 07/22/2017 Pathologic fracture of vertebrae 10/13/2005 07/22/2017 Backache, unspecified 09/24/20052017 Thoracic or lumbosacral neur itis or radiculitis, unspecified 09/24/2005 07/22/2017 Pes anserinus tendinitis or bursitis 09/04/2005 07/22/2017 Overview: RT Rotator cuff (capsule) sprain 06/21/2003 07/22/2017 osteoporosis 04/23/2017 Apnea 12/05/2015 Overview: cpap Thyroid disorder 04/23/2017 Dysthymic disorder 8 Overview: Depression (non-psychotic) documented as of this encounter (statuses as of 11/29/2022) [facility]2017 History of Past illness Narrative* Problem Noted Date Diagnosed Date Resolved Date Dysphagia 05/22/2016 01/21/2017 Ischemic colon 06/02/2012 04/23/2017 Colonic mass 06/02/2012 04/23/2017 Unspecified sleep apnea 01/04/200807/01 Overview: DME: [facility] # [phone]; fax# [phone] Lumbago 09/10/2007 04/23/2017 Sprain of neck 09/10/2007 07/22/2017 Pathologic fracture of vertebrae 10/13/2005 07/22/2017 Backache, unspecified 09/24/20052017 Thoracic or lumbosacral neur itis or radiculitis, unspecified 09/24/2005 07/22/2017 Pes anserinus tendinitis or bursitis 09/04/2005 07/22/2017 Overview: RT Rotator cuff (capsule) sprain 06/21/2003 07/22/2017 osteoporosis 04/23/2017 Apnea 12/05/2015 Overview: cpap Thyroid disorder 04/23/2017 Dysthymic disorder 8 Overview: Depression (non-psychotic) documented as of this encounter (statuses as of 12/09/2022) [facility]2017 History of Past illness Narrative* Problem Noted Date Diagnosed Date Resolved Date Dysphagia 05/22/2016 01/21/2017 Ischemic colon 06/02/2012 04/23/2017 Colonic mass 06/02/2012 04/23/2017 Unspecified sleep apnea 01/04/200807/01 Overview: DME: [facility] # [phone]; fax# [phone] Lumbago 09/10/2007 04/23/2017 Sprain of neck 09/10/2007 07/22/2017 Pathologic fracture of vertebrae 10/13/2005 07/22/2017 Backache, unspecified 09/24/20052017 Thoracic or lumbosacral neur itis or radiculitis, unspecified 09/24/2005 07/22/2017 Pes anserinus tendinitis or bursitis 09/04/2005 07/22/2017 Overview: RT Rotator cuff (capsule) sprain 06/21/2003 07/22/2017 osteoporosis 04/23/2017 Apnea 12/05/2015 Overview: cpap Thyroid disorder 04/23/2017 Dysthymic disorder 8 Overview: Depression (non-psychotic) documented as of this encounter (statuses as of 12/16/2022) [facility] History of Past illness Narrative* Problem Noted Date Diagnosed Date Resolved Date Dysphagia 05/22/2016 01/21/2017 Ischemic colon 06/02/2012 04/23/2017 Colonic mass 06/02/2012 04/23/2017 Unspecified sleep apnea 01/04/200807/01 Overview: DME: [facility]# [phone]; fax# [phone] Lumbago 09/10/2007 04/23/2017 Sprain of neck 09/10/2007 07/22/2017 Pathologic fracture of vertebrae 10/13/2005 07/22/2017 Backache, unspecified 09/24/20052017 Thoracic or lumbosacral neur itis or radiculitis, unspecified 09/24/2005 07/22/2017 Pes anserinus tendinitis or bursitis 09/04/2005 07/22/2017 Overview: RT Rotator cuff (capsule) sprain 06/21/2003 07/22/2017 osteoporosis 04/23/2017 Apnea 12/05/2015 Overview: cpap Thyroid disorder 04/23/2017 Dysthymic disorder 8 Overview: Depression (non-psychotic) documented as of this encounter (statuses as of 12/17/2022) [facility]2017 History of Past illness Narrative* Problem Noted Date Diagnosed Date Resolved Date Dysphagia 05/22/2016 01/21/2017 Ischemic colon 06/02/2012 04/23/2017 Colonic mass 06/02/2012 04/23/2017 Unspecified sleep apnea 01/04/200807/01 Overview: DME: [facility]# [phone]; fax# [phone] Lumbago 09/10/2007 04/23/2017 Sprain of neck 09/10/2007 07/22/2017 Pathologic fracture of vertebrae 10/13/2005 07/22/2017 Backache, unspecified 09/24/20052017 Thoracic or lumbosacral neur itis or radiculitis, unspecified 09/24/2005 07/22/2017 Pes anserinus tendinitis or bursitis 09/04/2005 07/22/2017 Overview: RT Rotator cuff (capsule) sprain 06/21/2003 07/22/2017 osteoporosis 04/23/2017 Apnea 12/05/2015 Overview: cpap Thyroid disorder 04/23/2017 Dysthymic disorder 8 Overview: Depression (non-psychotic) documented as of this encounter (statuses as of 12/18/2022) [facility]2017 History of Past illness Narrative* Problem Noted Date Diagnosed Date Resolved Date Dysphagia 05/22/2016 01/21/2017 Ischemic colon 06/02/2012 04/23/2017 Colonic mass 06/02/2012 04/23/2017 Unspecified sleep apnea 01/04/200807/01 Overview: DME: [facility]# [phone]; fax# [phone] Lumbago 09/10/2007 04/23/2017 Sprain of neck 09/10/2007 07/22/2017 Pathologic fracture of vertebrae 10/13/2005 07/22/2017 Backache, unspecified 09/24/20052017 Thoracic or lumbosacral neur itis or radiculitis, unspecified 09/24/2005 07/22/2017 Pes anserinus tendinitis or bursitis 09/04/2005 07/22/2017 Overview: RT Rotator cuff (capsule) sprain 06/21/2003 07/22/2017 osteoporosis 04/23/2017 Apnea 12/05/2015 Overview: cpap Thyroid disorder 04/23/2017 Dysthymic disorder 8 Overview: Depression (non-psychotic) documented as of this encounter (statuses as of 12/23/2022) [facility]2017 History of Past illness Narrative* Problem Noted Date Diagnosed Date Resolved Date Dysphagia 05/22/2016 01/21/2017 Ischemic colon 06/02/2012 04/23/2017 Colonic mass 06/02/2012 04/23/2017 Unspecified sleep apnea 01/04/200807/01 Overview: DME: [facility]# [phone]; fax# [phone] Lumbago 09/10/2007 04/23/2017 Sprain of neck 09/10/2007 07/22/2017 Pathologic fracture of vertebrae 10/13/2005 07/22/2017 Backache, unspecified 09/24/20052017 Thoracic or lumbosacral neur itis or radiculitis, unspecified 09/24/2005 07/22/2017 Pes anserinus tendinitis or bursitis 09/04/2005 07/22/2017 Overview: RT Rotator cuff (capsule) sprain 06/21/2003 07/22/2017 osteoporosis 04/23/2017 Apnea 12/05/2015 Overview: cpap Thyroid disorder 04/23/2017 Dysthymic disorder 8 Overview: Depression (non-psychotic) documented as of this encounter (statuses as of 12/31/2022) [facility]2017 History of Past illness Narrative* Problem Noted Date Diagnosed Date Resolved Date Dysphagia 05/22/2016 01/21/2017 Ischemic colon 06/02/2012 04/23/2017 Colonic mass 06/02/2012 04/23/2017 Unspecified sleep apnea 01/04/200807/01 Overview: DME: [facility] # [phone]; fax# [phone] Lumbago 09/10/2007 04/23/2017 Sprain of neck 09/10/2007 07/22/2017 Pathologic fracture of vertebrae 10/13/2005 07/22/2017 Backache, unspecified 09/24/20052017 Thoracic or lumbosacral neur itis or radiculitis, unspecified 09/24/2005 07/22/2017 Pes anserinus tendinitis or bursitis 09/04/2005 07/22/2017 Overview: RT Rotator cuff (capsule) sprain 06/21/2003 07/22/2017 osteoporosis 04/23/2017 Apnea 12/05/2015 Overview: cpap Thyroid disorder 04/23/2017 Dysthymic disorder 8 Overview: Depression (non-psychotic) documented as of this encounter (statuses as of 01/04/2023) [facility]2017 History of Past illness Narrative* Problem Noted Date Diagnosed Date Resolved Date Dysphagia 05/22/2016 01/21/2017 Ischemic colon 06/02/2012 04/23/2017 Colonic mass 06/02/2012 04/23/2017 Unspecified sleep apnea 01/04/200807/01 Overview: DME: [facility]# [phone]; fax# [phone] Lumbago 09/10/2007 04/23/2017 Sprain of neck 09/10/2007 07/22/2017 Pathologic fracture of vertebrae 10/13/2005 07/22/2017 Backache, unspecified 09/24/20052017 Thoracic or lumbosacral neur itis or radiculitis, unspecified 09/24/2005 07/22/2017 Pes anserinus tendinitis or bursitis 09/04/2005 07/22/2017 Overview: RT Rotator cuff (capsule) sprain 06/21/2003 07/22/2017 osteoporosis 04/23/2017 Apnea 12/05/2015 Overview: cpap Thyroid disorder 04/23/2017 Dysthymic disorder 8 Overview: Depression (non-psychotic) documented as of this encounter (statuses as of 01/04/2023) [facility]2017 History of Past illness Narrative* Problem Noted Date Diagnosed Date Resolved Date Dysphagia 05/22/2016 01/21/2017 Ischemic colon 06/02/2012 04/23/2017 Colonic mass 06/02/2012 04/23/2017 Unspecified sleep apnea 01/04/200807/01 Overview: DME: [facility]# [phone]; fax# [phone] Lumbago 09/10/2007 04/23/2017 Sprain of neck 09/10/2007 07/22/2017 Pathologic fracture of vertebrae 10/13/2005 07/22/2017 Backache, unspecified 09/24/20052017 Thoracic or lumbosacral neur itis or radiculitis, unspecified 09/24/2005 07/22/2017 Pes anserinus tendinitis or bursitis 09/04/2005 07/22/2017 Overview: RT Rotator cuff (capsule) sprain 06/21/2003 07/22/2017 osteoporosis 04/23/2017 Apnea 12/05/2015 Overview: cpap Thyroid disorder 04/23/2017 Dysthymic disorder 8 Overview: Depression (non-psychotic) documented as of this encounter (statuses as of 01/06/2023) [facility]2017 History of Past illness Narrative* Problem Noted Date Diagnosed Date Resolved Date Dysphagia 05/22/2016 01/21/2017 Ischemic colon 06/02/2012 04/23/2017 Colonic mass 06/02/2012 04/23/2017 Unspecified sleep apnea 01/04/200807/01 Overview: DME: [facility] # [phone]; fax# [phone] Lumbago 09/10/2007 04/23/2017 Sprain of neck 09/10/2007 07/22/2017 Pathologic fracture of vertebrae 10/13/2005 07/22/2017 Backache, unspecified 09/24/20052017 Thoracic or lumbosacral neur itis or radiculitis, unspecified 09/24/2005 07/22/2017 Pes anserinus tendinitis or bursitis 09/04/2005 07/22/2017 Overview: RT Rotator cuff (capsule) sprain 06/21/2003 07/22/2017 osteoporosis 04/23/2017 Apnea 12/05/2015 Overview: cpap Thyroid disorder 04/23/2017 Dysthymic disorder 8 Overview: Depression (non-psychotic) documented as of this encounter (statuses as of 01/14/2023) [facility]2017 History of Past illness Narrative* Problem Noted Date Diagnosed Date Resolved Date Dysphagia 05/22/2016 01/21/2017 Ischemic colon 06/02/2012 04/23/2017 Colonic mass 06/02/2012 04/23/2017 Unspecified sleep apnea 01/04/200807/01 Overview: DME: [facility]# [phone]; fax# [phone] Lumbago 09/10/2007 04/23/2017 Sprain of neck 09/10/2007 07/22/2017 Pathologic fracture of vertebrae 10/13/2005 07/22/2017 Backache, unspecified 09/24/20052017 Thoracic or lumbosacral neur itis or radiculitis, unspecified 09/24/2005 07/22/2017 Pes anserinus tendinitis or bursitis 09/04/2005 07/22/2017 Overview: RT Rotator cuff (capsule) sprain 06/21/2003 07/22/2017 osteoporosis 04/23/2017 Apnea 12/05/2015 Overview: cpap Thyroid disorder 04/23/2017 Dysthymic disorder 8 Overview: Depression (non-psychotic) documented as of this encounter (statuses as of 01/28/2023) [facility]2017 History of Past illness Narrative* Problem Noted Date Diagnosed Date Resolved Date Dysphagia 05/22/2016 01/21/2017 Ischemic colon 06/02/2012 04/23/2017 Colonic mass 06/02/2012 04/23/2017 Unspecified sleep apnea 01/04/200807/01 Overview: DME: [facility]# [phone]; fax# [phone] Lumbago 09/10/2007 04/23/2017 Sprain of neck 09/10/2007 07/22/2017 Pathologic fracture of vertebrae 10/13/2005 07/22/2017 Backache, unspecified 09/24/20052017 Thoracic or lumbosacral neur itis or radiculitis, unspecified 09/24/2005 07/22/2017 Pes anserinus tendinitis or bursitis 09/04/2005 07/22/2017 Overview: RT Rotator cuff (capsule) sprain 06/21/2003 07/22/2017 osteoporosis 04/23/2017 Apnea 12/05/2015 Overview: cpap Thyroid disorder 04/23/2017 Dysthymic disorder 8 Overview: Depression (non-psychotic) documented as of this encounter (statuses as of 01/30/2023) [facility]2017 History of Past illness Narrative* Problem Noted Date Diagnosed Date Resolved Date Dysphagia 05/22/2016 01/21/2017 Ischemic colon 06/02/2012 04/23/2017 Colonic mass 06/02/2012 04/23/2017 Unspecified sleep apnea 01/04/200807/01 Overview: DME: [facility] # [phone]; fax# [phone] Lumbago 09/10/2007 04/23/2017 Sprain of neck 09/10/2007 07/22/2017 Pathologic fracture of vertebrae 10/13/2005 07/22/2017 Backache, unspecified 09/24/20052017 Thoracic or lumbosacral neur itis or radiculitis, unspecified 09/24/2005 07/22/2017 Pes anserinus tendinitis or bursitis 09/04/2005 07/22/2017 Overview: RT Rotator cuff (capsule) sprain 06/21/2003 07/22/2017 osteoporosis 04/23/2017 Apnea 12/05/2015 Overview: cpap Thyroid disorder 04/23/2017 Dysthymic disorder 8 Overview: Depression (non-psychotic) documented as of this encounter (statuses as of 02/01/2023) [facility]2017 History of Past illness Narrative* Problem Noted Date Diagnosed Date Resolved Date Dysphagia 05/22/2016 01/21/2017 Ischemic colon 06/02/2012 04/23/2017 Colonic mass 06/02/2012 04/23/2017 Unspecified sleep apnea 01/04/200807/01 Overview: DME: [facility]# [phone]; fax# [phone] Lumbago 09/10/2007 04/23/2017 Sprain of neck 09/10/2007 07/22/2017 Pathologic fracture of vertebrae 10/13/2005 07/22/2017 Backache, unspecified 09/24/20052017 Thoracic or lumbosacral neur itis or radiculitis, unspecified 09/24/2005 07/22/2017 Pes anserinus tendinitis or bursitis 09/04/2005 07/22/2017 Overview: RT Rotator cuff (capsule) sprain 06/21/2003 07/22/2017 osteoporosis 04/23/2017 Apnea 12/05/2015 Overview: cpap Thyroid disorder 04/23/2017 Dysthymic disorder 8 Overview: Depression (non-psychotic) documented as of this encounter (statuses as of 02/05/2023) [facility]2017 History of Past illness Narrative* Problem Noted Date Diagnosed Date Resolved Date Dysphagia 05/22/2016 01/21/2017 Ischemic colon 06/02/2012 04/23/2017 Colonic mass 06/02/2012 04/23/2017 Unspecified sleep apnea 01/04/200807/01 Overview: DME: [facility]# [phone]; fax# [phone] Lumbago 09/10/2007 04/23/2017 Sprain of neck 09/10/2007 07/22/2017 Pathologic fracture of vertebrae 10/13/2005 07/22/2017 Backache, unspecified 09/24/20052017 Thoracic or lumbosacral neur itis or radiculitis, unspecified 09/24/2005 07/22/2017 Pes anserinus tendinitis or bursitis 09/04/2005 07/22/2017 Overview: RT Rotator cuff (capsule) sprain 06/21/2003 07/22/2017 osteoporosis 04/23/2017 Apnea 12/05/2015 Overview: cpap Thyroid disorder 04/23/2017 Dysthymic disorder 8 Overview: Depression (non-psychotic) documented as of this encounter (statuses as of 02/07/2023) [facility]2017 History of Past illness Narrative* Problem Noted Date Diagnosed Date Resolved Date Dysphagia 05/22/2016 01/21/2017 Ischemic colon 06/02/2012 04/23/2017 Colonic mass 06/02/2012 04/23/2017 Unspecified sleep apnea 01/04/200807/01 Overview: DME: [facility] # [phone]; fax# [phone] Lumbago 09/10/2007 04/23/2017 Sprain of neck 09/10/2007 07/22/2017 Pathologic fracture of vertebrae 10/13/2005 07/22/2017 Backache, unspecified 09/24/20052017 Thoracic or lumbosacral neur itis or radiculitis, unspecified 09/24/2005 07/22/2017 Pes anserinus tendinitis or bursitis 09/04/2005 07/22/2017 Overview: RT Rotator cuff (capsule) sprain 06/21/2003 07/22/2017 osteoporosis 04/23/2017 Apnea 12/05/2015 Overview: cpap Thyroid disorder 04/23/2017 Dysthymic disorder 8 Overview: Depression (non-psychotic) documented as of this encounter (statuses as of 02/14/2023) [facility] History of Past illness Narrative* Problem Noted Date Diagnosed Date Resolved Date Dysphagia 05/22/2016 01/21/2017 Ischemic colon 06/02/2012 04/23/2017 Colonic mass 06/02/2012 04/23/2017 Unspecified sleep apnea 01/04/200807/01 Overview: DME: [facility]# [phone]; fax# [phone] Lumbago 09/10/2007 04/23/2017 Sprain of neck 09/10/2007 07/22/2017 Pathologic fracture of vertebrae 10/13/2005 07/22/2017 Backache, unspecified 09/24/20052017 Thoracic or lumbosacral neur itis or radiculitis, unspecified 09/24/2005 07/22/2017 Pes anserinus tendinitis or bursitis 09/04/2005 07/22/2017 Overview: RT Rotator cuff (capsule) sprain 06/21/2003 07/22/2017 osteoporosis 04/23/2017 Apnea 12/05/2015 Overview: cpap Thyroid disorder 04/23/2017 Dysthymic disorder 8 Overview: Depression (non-psychotic) documented as of this encounter (statuses as of 02/20/2023) [facility] History of Past illness Narrative* Problem Noted Date Diagnosed Date Resolved Date Dysphagia 05/22/2016 01/21/2017 Ischemic colon 06/02/2012 04/23/2017 Colonic mass 06/02/2012 04/23/2017 Unspecified sleep apnea 01/04/200807/01 Overview: DME: [facility]# [phone]; fax# [phone] Lumbago 09/10/2007 04/23/2017 Sprain of neck 09/10/2007 07/22/2017 Pathologic fracture of vertebrae 10/13/2005 07/22/2017 Backache, unspecified 09/24/20052017 Thoracic or lumbosacral neur itis or radiculitis, unspecified 09/24/2005 07/22/2017 Pes anserinus tendinitis or bursitis 09/04/2005 07/22/2017 Overview: RT Rotator cuff (capsule) sprain 06/21/2003 07/22/2017 osteoporosis 04/23/2017 Apnea 12/05/2015 Overview: cpap Thyroid disorder 04/23/2017 Dysthymic disorder 8 Overview: Depression (non-psychotic) documented as of this encounter (statuses as of 02/20/2023) [facility] History of Past illness Narrative* Problem Noted Date Diagnosed Date Resolved Date Dysphagia 05/22/2016 01/21/2017 Ischemic colon 06/02/2012 04/23/2017 Colonic mass 06/02/2012 04/23/2017 Unspecified sleep apnea 01/04/200807/01 Overview: DME: [facility] # [phone]; fax# [phone] Lumbago 09/10/2007 04/23/2017 Sprain of neck 09/10/2007 07/22/2017 Pathologic fracture of vertebrae 10/13/2005 07/22/2017 Backache, unspecified 09/24/20052017 Thoracic or lumbosacral neur itis or radiculitis, unspecified 09/24/2005 07/22/2017 Pes anserinus tendinitis or bursitis 09/04/2005 07/22/2017 Overview: RT Rotator cuff (capsule) sprain 06/21/2003 07/22/2017 osteoporosis 04/23/2017 Apnea 12/05/2015 Overview: cpap Thyroid disorder 04/23/2017 Dysthymic disorder 8 Overview: Depression (non-psychotic) documented as of this encounter (statuses as of 04/03/2023) [facility] History of Past illness Narrative* Problem Noted Date Diagnosed Date Resolved Date Dysphagia 05/22/2016 01/21/2017 Ischemic colon 06/02/2012 04/23/2017 Colonic mass 06/02/2012 04/23/2017 Unspecified sleep apnea 01/04/200807/01 Overview: DME: [facility] # [phone]; fax# [phone] Lumbago 09/10/2007 04/23/2017 Sprain of neck 09/10/2007 07/22/2017 Pathologic fracture of vertebrae 10/13/2005 07/22/2017 Backache, unspecified 09/24/20052017 Thoracic or lumbosacral neur itis or radiculitis, unspecified 09/24/2005 07/22/2017 Pes anserinus tendinitis or bursitis 09/04/2005 07/22/2017 Overview: RT Rotator cuff (capsule) sprain 06/21/2003 07/22/2017 osteoporosis 04/23/2017 Apnea 12/05/2015 Overview: cpap Thyroid disorder 04/23/2017 Dysthymic disorder 8 Overview: Depression (non-psychotic) documented as of this encounter (statuses as of 04/14/2023) [facility] History of Past illness Narrative* Problem Noted Date Diagnosed Date Resolved Date Dysphagia 05/22/2016 01/21/2017 Ischemic colon 06/02/2012 04/23/2017 Colonic mass 06/02/2012 04/23/2017 Unspecified sleep apnea 01/04/200807/01 Overview: DME: [facility] # [phone]; fax# [phone] Lumbago 09/10/2007 04/23/2017 Sprain of neck 09/10/2007 07/22/2017 Pathologic fracture of vertebrae 10/13/2005 07/22/2017 Backache, unspecified 09/24/20052017 Thoracic or lumbosacral neur itis or radiculitis, unspecified 09/24/2005 07/22/2017 Pes anserinus tendinitis or bursitis 09/04/2005 07/22/2017 Overview: RT Rotator cuff (capsule) sprain 06/21/2003 07/22/2017 osteoporosis 04/23/2017 Apnea 12/05/2015 Overview: cpap Thyroid disorder 04/23/2017 Dysthymic disorder 8 Overview: Depression (non-psychotic) documented as of this encounter (statuses as of 04/14/2023) [facility] History of Past illness Narrative* Problem Noted Date Diagnosed Date Resolved Date Dysphagia 05/22/2016 01/21/2017 Ischemic colon 06/02/2012 04/23/2017 Colonic mass 06/02/2012 04/23/2017 Unspecified sleep apnea 01/04/200807/01 Overview: DME: [facility] # [phone]; fax# [phone] Lumbago 09/10/2007 04/23/2017 Sprain of neck 09/10/2007 07/22/2017 Pathologic fracture of vertebrae 10/13/2005 07/22/2017 Backache, unspecified 09/24/20052017 Thoracic or lumbosacral neur itis or radiculitis, unspecified 09/24/2005 07/22/2017 Pes anserinus tendinitis or bursitis 09/04/2005 07/22/2017 Overview: RT Rotator cuff (capsule) sprain 06/21/2003 07/22/2017 osteoporosis 04/23/2017 Apnea 12/05/2015 Overview: cpap Thyroid disorder 04/23/2017 Dysthymic disorder 8 Overview: Depression (non-psychotic) documented as of this encounter (statuses as of 04/16/2023) [facility] History of Past illness Narrative* Problem Noted Date Diagnosed Date Resolved Date Dysphagia 05/22/2016 01/21/2017 Ischemic colon 06/02/2012 04/23/2017 Colonic mass 06/02/2012 04/23/2017 Unspecified sleep apnea 01/04/200807/01 Overview: DME: [facility]# [phone]; fax# [phone] Lumbago 09/10/2007 04/23/2017 Sprain of neck 09/10/2007 07/22/2017 Pathologic fracture of vertebrae 10/13/2005 07/22/2017 Backache, unspecified 09/24/20052017 Thoracic or lumbosacral neur itis or radiculitis, unspecified 09/24/2005 07/22/2017 Pes anserinus tendinitis or bursitis 09/04/2005 07/22/2017 Overview: RT Rotator cuff (capsule) sprain 06/21/2003 07/22/2017 osteoporosis 04/23/2017 Apnea 12/05/2015 Overview: cpap Thyroid disorder 04/23/2017 Dysthymic disorder 8 Overview: Depression (non-psychotic) documented as of this encounter (statuses as of 04/23/2023) [facility] History of Past illness Narrative* Problem Noted Date Diagnosed Date Resolved Date Dysphagia 05/22/2016 01/21/2017 Ischemic colon 06/02/2012 04/23/2017 Colonic mass 06/02/2012 04/23/2017 Unspecified sleep apnea 01/04/200807/01 Overview: DME: [facility]# [phone]; fax# [phone] Lumbago 09/10/2007 04/23/2017 Sprain of neck 09/10/2007 07/22/2017 Pathologic fracture of vertebrae 10/13/2005 07/22/2017 Backache, unspecified 09/24/20052017 Thoracic or lumbosacral neur itis or radiculitis, unspecified 09/24/2005 07/22/2017 Pes anserinus tendinitis or bursitis 09/04/2005 07/22/2017 Overview: RT Rotator cuff (capsule) sprain 06/21/2003 07/22/2017 osteoporosis 04/23/2017 Apnea 12/05/2015 Overview: cpap Thyroid disorder 04/23/2017 Dysthymic disorder 8 Overview: Depression (non-psychotic) documented as of this encounter (statuses as of 04/24/2023) [facility] History of Past illness Narrative* Problem Noted Date Diagnosed Date Resolved Date Dysphagia 05/22/2016 01/21/2017 Ischemic colon 06/02/2012 04/23/2017 Colonic mass 06/02/2012 04/23/2017 Unspecified sleep apnea 01/04/200807/01 Overview: DME: [facility]# [phone]; fax# [phone] Lumbago 09/10/2007 04/23/2017 Sprain of neck 09/10/2007 07/22/2017 Pathologic fracture of vertebrae 10/13/2005 07/22/2017 Backache, unspecified 09/24/20052017 Thoracic or lumbosacral neur itis or radiculitis, unspecified 09/24/2005 07/22/2017 Pes anserinus tendinitis or bursitis 09/04/2005 07/22/2017 Overview: RT Rotator cuff (capsule) sprain 06/21/2003 07/22/2017 osteoporosis 04/23/2017 Apnea 12/05/2015 Overview: cpap Thyroid disorder 04/23/2017 Dysthymic disorder 8 Overview: Depression (non-psychotic) documented as of this encounter (statuses as of 04/30/2023) [facility] History of Past illness Narrative* Problem Noted Date Diagnosed Date Resolved Date Dysphagia 05/22/2016 01/21/2017 Ischemic colon 06/02/2012 04/23/2017 Colonic mass 06/02/2012 04/23/2017 Unspecified sleep apnea 01/04/200807/01 Overview: DME: [facility]# [phone]; fax# [phone] Lumbago 09/10/2007 04/23/2017 Sprain of neck 09/10/2007 07/22/2017 Pathologic fracture of vertebrae 10/13/2005 07/22/2017 Backache, unspecified 09/24/20052017 Thoracic or lumbosacral neur itis or radiculitis, unspecified 09/24/2005 07/22/2017 Pes anserinus tendinitis or bursitis 09/04/2005 07/22/2017 Overview: RT Rotator cuff (capsule) sprain 06/21/2003 07/22/2017 osteoporosis 04/23/2017 Apnea 12/05/2015 Overview: cpap Thyroid disorder 04/23/2017 Dysthymic disorder 8 Overview: Depression (non-psychotic) documented as of this encounter (statuses as of 05/01/2023) [facility] [facility] History of Past illness Narrative* Problem Noted Date Diagnosed Date Resolved Date Dysphagia 05/22/2016 01/21/2017 Ischemic colon 06/02/2012 04/23/2017 Colonic mass 06/02/2012 04/23/2017 Unspecified sleep apnea 01/04/200807/01 Overview: DME: [facility] # [phone]; fax# [phone] Lumbago 09/10/2007 04/23/2017 Sprain of neck 09/10/2007 07/22/2017 Pathologic fracture of vertebrae 10/13/2005 07/22/2017 Backache, unspecified 09/24/20052017 Thoracic or lumbosacral neur itis or radiculitis, unspecified 09/24/2005 07/22/2017 Pes anserinus tendinitis or bursitis 09/04/2005 07/22/2017 Overview: RT Rotator cuff (capsule) sprain 06/21/2003 07/22/2017 osteoporosis 04/23/2017 Apnea 12/05/2015 Overview: cpap Thyroid disorder 04/23/2017 Dysthymic disorder 8 Overview: Depression (non-psychotic) documented as of this encounter (statuses as of 05/01/2023) [facility]2017 History of Past illness Narrative* Problem Noted Date Diagnosed Date Resolved Date Dysphagia 05/22/2016 01/21/2017 Ischemic colon 06/02/2012 04/23/2017 Colonic mass 06/02/2012 04/23/2017 Unspecified sleep apnea 01/04/200807/01 Overview: DME: [facility]# [phone]; fax# [phone] Lumbago 09/10/2007 04/23/2017 Sprain of neck 09/10/2007 07/22/2017 Pathologic fracture of vertebrae 10/13/2005 07/22/2017 Backache, unspecified 09/24/20052017 Thoracic or lumbosacral neur itis or radiculitis, unspecified 09/24/2005 07/22/2017 Pes anserinus tendinitis or bursitis 09/04/2005 07/22/2017 Overview: RT Rotator cuff (capsule) sprain 06/21/2003 07/22/2017 osteoporosis 04/23/2017 Apnea 12/05/2015 Overview: cpap Thyroid disorder 04/23/2017 Dysthymic disorder 8 Overview: Depression (non-psychotic) documented as of this encounter (statuses as of 05/04/2023) [facility] History of Past illness Narrative* Problem Noted Date Diagnosed Date Resolved Date Dysphagia 05/22/2016 01/21/2017 Ischemic colon 06/02/2012 04/23/2017 Colonic mass 06/02/2012 04/23/2017 Unspecified sleep apnea 01/04/200807/01 Overview: DME: [facility]# [phone]; fax# [phone] Lumbago 09/10/2007 04/23/2017 Sprain of neck 09/10/2007 07/22/2017 Pathologic fracture of vertebrae 10/13/2005 07/22/2017 Backache, unspecified 09/24/20052017 Thoracic or lumbosacral neur itis or radiculitis, unspecified 09/24/2005 07/22/2017 Pes anserinus tendinitis or bursitis 09/04/2005 07/22/2017 Overview: RT Rotator cuff (capsule) sprain 06/21/2003 07/22/2017 osteoporosis 04/23/2017 Apnea 12/05/2015 Overview: cpap Thyroid disorder 04/23/2017 Dysthymic disorder 8 Overview: Depression (non-psychotic) documented as of this encounter (statuses as of 05/04/2023) [facility] History of Past illness Narrative* Problem Noted Date Diagnosed Date Resolved Date Dysphagia 05/22/2016 01/21/2017 Ischemic colon 06/02/2012 04/23/2017 Colonic mass 06/02/2012 04/23/2017 Unspecified sleep apnea 01/04/200807/01 Overview: DME: [facility] # [phone]; fax# [phone] Lumbago 09/10/2007 04/23/2017 Sprain of neck 09/10/2007 07/22/2017 Pathologic fracture of vertebrae 10/13/2005 07/22/2017 Backache, unspecified 09/24/20052017 Thoracic or lumbosacral neur itis or radiculitis, unspecified 09/24/2005 07/22/2017 Pes anserinus tendinitis or bursitis 09/04/2005 07/22/2017 Overview: RT Rotator cuff (capsule) sprain 06/21/2003 07/22/2017 osteoporosis 04/23/2017 Apnea 12/05/2015 Overview: cpap Thyroid disorder 04/23/2017 Dysthymic disorder 8 Overview: Depression (non-psychotic) documented as of this encounter (statuses as of 05/04/2023) [facility] History of Past illness Narrative* Problem Noted Date Diagnosed Date Resolved Date Dysphagia 05/22/2016 01/21/2017 Ischemic colon 06/02/2012 04/23/2017 Colonic mass 06/02/2012 04/23/2017 Unspecified sleep apnea 01/04/200807/01 Overview: DME: [facility]# [phone]; fax# [phone] Lumbago 09/10/2007 04/23/2017 Sprain of neck 09/10/2007 07/22/2017 Pathologic fracture of vertebrae 10/13/2005 07/22/2017 Backache, unspecified 09/24/20052017 Thoracic or lumbosacral neur itis or radiculitis, unspecified 09/24/2005 07/22/2017 Pes anserinus tendinitis or bursitis 09/04/2005 07/22/2017 Overview: RT Rotator cuff (capsule) sprain 06/21/2003 07/22/2017 osteoporosis 04/23/2017 Apnea 12/05/2015 Overview: cpap Thyroid disorder 04/23/2017 Dysthymic disorder 8 Overview: Depression (non-psychotic) documented as of this encounter (statuses as of 05/11/2023) [facility] History of Past illness Narrative* Problem Noted Date Diagnosed Date Resolved Date Dysphagia 05/22/2016 01/21/2017 Ischemic colon 06/02/2012 04/23/2017 Colonic mass 06/02/2012 04/23/2017 Unspecified sleep apnea 01/04/200807/01 Overview: DME: [facility]# [phone]; fax# [phone] Lumbago 09/10/2007 04/23/2017 Sprain of neck 09/10/2007 07/22/2017 Pathologic fracture of vertebrae 10/13/2005 07/22/2017 Backache, unspecified 09/24/20052017 Thoracic or lumbosacral neur itis or radiculitis, unspecified 09/24/2005 07/22/2017 Pes anserinus tendinitis or bursitis 09/04/2005 07/22/2017 Overview: RT Rotator cuff (capsule) sprain 06/21/2003 07/22/2017 osteoporosis 04/23/2017 Apnea 12/05/2015 Overview: cpap Thyroid disorder 04/23/2017 Dysthymic disorder 8 Overview: Depression (non-psychotic) documented as of this encounter (statuses as of 05/13/2023) [facility] History of Past illness Narrative* Problem Noted Date Diagnosed Date Resolved Date Dysphagia 05/22/2016 01/21/2017 Ischemic colon 06/02/2012 04/23/2017 Colonic mass 06/02/2012 04/23/2017 Unspecified sleep apnea 01/04/200807/01 Overview: DME: [facility] # [phone]; fax# [phone] Lumbago 09/10/2007 04/23/2017 Sprain of neck 09/10/2007 07/22/2017 Pathologic fracture of vertebrae 10/13/2005 07/22/2017 Backache, unspecified 09/24/20052017 Thoracic or lumbosacral neur itis or radiculitis, unspecified 09/24/2005 07/22/2017 Pes anserinus tendinitis or bursitis 09/04/2005 07/22/2017 Overview: RT Rotator cuff (capsule) sprain 06/21/2003 07/22/2017 osteoporosis 04/23/2017 Apnea 12/05/2015 Overview: cpap Thyroid disorder 04/23/2017 Dysthymic disorder 8 Overview: Depression (non-psychotic) documented as of this encounter (statuses as of 05/14/2023) [facility] History of Past illness Narrative* Problem Noted Date Diagnosed Date Resolved Date Dysphagia 05/22/2016 01/21/2017 Ischemic colon 06/02/2012 04/23/2017 Colonic mass 06/02/2012 04/23/2017 Unspecified sleep apnea 01/04/200807/01 Overview: DME: [facility]# [phone]; fax# [phone] Lumbago 09/10/2007 04/23/2017 Sprain of neck 09/10/2007 07/22/2017 Pathologic fracture of vertebrae 10/13/2005 07/22/2017 Backache, unspecified 09/24/20052017 Thoracic or lumbosacral neur itis or radiculitis, unspecified 09/24/2005 07/22/2017 Pes anserinus tendinitis or bursitis 09/04/2005 07/22/2017 Overview: RT Rotator cuff (capsule) sprain 06/21/2003 07/22/2017 osteoporosis 04/23/2017 Apnea 12/05/2015 Overview: cpap Thyroid disorder 04/23/2017 Dysthymic disorder 8 Overview: Depression (non-psychotic) documented as of this encounter (statuses as of 05/14/2023) [facility] History of Past illness Narrative* Problem Noted Date Diagnosed Date Resolved Date Dysphagia 05/22/2016 01/21/2017 Ischemic colon 06/02/2012 04/23/2017 Colonic mass 06/02/2012 04/23/2017 Unspecified sleep apnea 01/04/200807/01 Overview: DME: [facility]# [phone]; fax# [phone] Lumbago 09/10/2007 04/23/2017 Sprain of neck 09/10/2007 07/22/2017 Pathologic fracture of vertebrae 10/13/2005 07/22/2017 Backache, unspecified 09/24/20052017 Thoracic or lumbosacral neur itis or radiculitis, unspecified 09/24/2005 07/22/2017 Pes anserinus tendinitis or bursitis 09/04/2005 07/22/2017 Overview: RT Rotator cuff (capsule) sprain 06/21/2003 07/22/2017 osteoporosis 04/23/2017 Apnea 12/05/2015 Overview: cpap Thyroid disorder 04/23/2017 Dysthymic disorder 8 Overview: Depression (non-psychotic) documented as of this encounter (statuses as of 05/15/2023) [facility] History of Past illness Narrative* Problem Noted Date Diagnosed Date Resolved Date Dysphagia 05/22/2016 01/21/2017 Ischemic colon 06/02/2012 04/23/2017 Colonic mass 06/02/2012 04/23/2017 Unspecified sleep apnea 01/04/200807/01 Overview: DME: [facility] # [phone]; fax# [phone] Lumbago 09/10/2007 04/23/2017 Sprain of neck 09/10/2007 07/22/2017 Pathologic fracture of vertebrae 10/13/2005 07/22/2017 Backache, unspecified 09/24/20052017 Thoracic or lumbosacral neur itis or radiculitis, unspecified 09/24/2005 07/22/2017 Pes anserinus tendinitis or bursitis 09/04/2005 07/22/2017 Overview: RT Rotator cuff (capsule) sprain 06/21/2003 07/22/2017 osteoporosis 04/23/2017 Apnea 12/05/2015 Overview: cpap Thyroid disorder 04/23/2017 Dysthymic disorder 8 Overview: Depression (non-psychotic) documented as of this encounter (statuses as of 05/22/2023) [facility] History of Past illness Narrative* Problem Noted Date Diagnosed Date Resolved Date Dysphagia 05/22/2016 01/21/2017 Ischemic colon 06/02/2012 04/23/2017 Colonic mass 06/02/2012 04/23/2017 Unspecified sleep apnea 01/04/200807/01 Overview: DME: [facility]# [phone]; fax# [phone] Lumbago 09/10/2007 04/23/2017 Sprain of neck 09/10/2007 07/22/2017 Pathologic fracture of vertebrae 10/13/2005 07/22/2017 Backache, unspecified 09/24/20052017 Thoracic or lumbosacral neur itis or radiculitis, unspecified 09/24/2005 07/22/2017 Pes anserinus tendinitis or bursitis 09/04/2005 07/22/2017 Overview: RT Rotator cuff (capsule) sprain 06/21/2003 07/22/2017 osteoporosis 04/23/2017 Apnea 12/05/2015 Overview: cpap Thyroid disorder 04/23/2017 Dysthymic disorder 8 Overview: Depression (non-psychotic) documented as of this encounter (statuses as of 05/25/2023) [facility] History of Past illness Narrative* Problem Noted Date Diagnosed Date Resolved Date Dysphagia 05/22/2016 01/21/2017 Ischemic colon 06/02/2012 04/23/2017 Colonic mass 06/02/2012 04/23/2017 Unspecified sleep apnea 01/04/200807/01 Overview: DME: [facility]# [phone]; fax# [phone] Lumbago 09/10/2007 04/23/2017 Sprain of neck 09/10/2007 07/22/2017 Pathologic fracture of vertebrae 10/13/2005 07/22/2017 Backache, unspecified 09/24/20052017 Thoracic or lumbosacral neur itis or radiculitis, unspecified 09/24/2005 07/22/2017 Pes anserinus tendinitis or bursitis 09/04/2005 07/22/2017 Overview: RT Rotator cuff (capsule) sprain 06/21/2003 07/22/2017 osteoporosis 04/23/2017 Apnea 12/05/2015 Overview: cpap Thyroid disorder 04/23/2017 Dysthymic disorder 8 Overview: Depression (non-psychotic) documented as of this encounter (statuses as of 06/12/2023) [facility] History of Past illness Narrative* Problem Noted Date Diagnosed Date Resolved Date Dysphagia 05/22/2016 01/21/2017 Ischemic colon 06/02/2012 04/23/2017 Colonic mass 06/02/2012 04/23/2017 Unspecified sleep apnea 01/04/200807/01 Overview: DME: [facility] # [phone]; fax# [phone] Lumbago 09/10/2007 04/23/2017 Sprain of neck 09/10/2007 07/22/2017 Pathologic fracture of vertebrae 10/13/2005 07/22/2017 Backache, unspecified 09/24/20052017 Thoracic or lumbosacral neur itis or radiculitis, unspecified 09/24/2005 07/22/2017 Pes anserinus tendinitis or bursitis 09/04/2005 07/22/2017 Overview: RT Rotator cuff (capsule) sprain 06/21/2003 07/22/2017 osteoporosis 04/23/2017 Apnea 12/05/2015 Overview: cpap Thyroid disorder 04/23/2017 Dysthymic disorder 8 Overview: Depression (non-psychotic) documented as of this encounter (statuses as of 06/12/2023) [facility] History of Past illness Narrative* Problem Noted Date Diagnosed Date Resolved Date Dysphagia 05/22/2016 01/21/2017 Ischemic colon 06/02/2012 04/23/2017 Colonic mass 06/02/2012 04/23/2017 Unspecified sleep apnea 01/04/200807/01 Overview: DME: [facility] # [phone]; fax# [phone] Lumbago 09/10/2007 04/23/2017 Sprain of neck 09/10/2007 07/22/2017 Pathologic fracture of vertebrae 10/13/2005 07/22/2017 Backache, unspecified 09/24/20052017 Thoracic or lumbosacral neur itis or radiculitis, unspecified 09/24/2005 07/22/2017 Pes anserinus tendinitis or bursitis 09/04/2005 07/22/2017 Overview: RT Rotator cuff (capsule) sprain 06/21/2003 07/22/2017 osteoporosis 04/23/2017 Apnea 12/05/2015 Overview: cpap Thyroid disorder 04/23/2017 Dysthymic disorder 8 Overview: Depression (non-psychotic) documented as of this encounter (statuses as of 06/19/2023) [facility] Pure hypercholesterolemia- Primary Idiopathic pulmonary fibrosis (HCC) Idiopathic pulmonary fibrosis Chronic respiratory failure with hypoxia (HCC) Chronic respiratory failure Nonintractable headache, unspecified chronicity pattern, unspecified headache type Anxiety Anxiety state, unspecified Primary insomnia Persistent disorder of initiating or maintaining sleep Obstructive sleep apnea Obstructive sleep apnea (adult) (pediatric) Recurrent major depressive disorder, in full remission (HCC) Acquired hypothyroidism Unspecified hypothy[facility] Stress at home- Primary Unspecified family circumstance [facility] Diagnosis Anxiety Anxiety state, unspecified [facility]* Diagnosis Encounter for support and coordination of transition of care- Primary [facility]* Diagnosis Idiopathic pulmonary fibrosis (HCC) Idiopathic pulmonary fibrosis [facility]* Diagnosis Anxiety Anxiety state, unspecified [facility]* Diagnosis Fatigue, unspecified type- Primary Essential hypertension Unspecified essential hypertension Obstructive sleep apnea Obstructive sleep apnea (adult) (pediatric) Anxiety Anxiety state, unspecified [facility]* Diagnosis Interstitial pulmonary disease (HCC)- Primary Postinflammatory pulmonary fibrosis Mild persistent asthma without complication Unspecified asthma Chronic respiratory failure with hypoxia (HCC) Chronic respiratory failure Obstructive sleep apnea Obstructive sleep apnea (adult) (pediatric) Gastroesophageal reflux disease, unspecified whether esophagitis present Allergic rhinitis, unspecified seasonality, unspecified trigger JENNY on CPAP Obstructive sleep apnea (adult) (pediatric) 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 Anxiety Anxiety state, unspecified [facility] Diagnosis Anxiety Anxiety state, unspecified [facility]* Diagnosis Idiopathic pulmonary fibrosis (HCC) Idiopathic pulmonary fibrosis [facility]* Diagnosis Anxiety Anxiety state, unspecified [facility]* Diagnosis Radicular low back pain- Primary Thoracic or lumbosacral neuritis or radiculitis, unspecified [facility]* Diagnosis Trochanteric bursitis of right hip- Primary Enthesopathy of hip region Right hip pain Pain in joint, pelvic region and thigh Essential hypertension Unspecified essential hypertension Anxiety Anxiety state, unspecified [facility]* Diagnosis Anxiety Anxiety state, unspecified [facility]* Diagnosis Idiopathic pulmonary fibrosis (HCC)- Primary Idiopathic pulmonary fibrosis Chronic respiratory failure with hypoxia (HCC) Chronic respiratory failure Mild persistent asthma without complication Unspecified asthma JENNY on CPAP Obstructive sleep apnea (adult) (pediatric) [facility]* Diagnosis Lung nodules- Primary Other nonspecific abnormal finding of lung field [facility]* Diagnosis Anxiety Anxiety state, unspecified [facility]* Diagnosis Idiopathic pulmonary fibrosis (HCC)- Primary Idiopathic pulmonary fibrosis Chronic respiratory failure with hypoxia (HCC) Chronic respiratory failure Mild persistent asthma without complication Unspecified asthma JENNY on CPAP Obstructive sleep apnea (adult) (pediatric) Lung nodule Solitary pulmonary nodule [facility]* Diagnosis Hypothyroidism Unspecified hypothyroidism [facility]* Diagnosis Idiopathic pulmonary fibrosis (HCC)- Primary Idiopathic pulmonary fibrosis Financial difficulties Inadequate material resources Recurrent major depressive disorder, in full remission (HCC) Chronic respiratory failure with hypoxia (HCC) Chronic respiratory failure Essential hypertension Unspecified essential hypertension Anxiety Anxiety state, unspecified [facility] Diagnosis Financial difficulty- Primary Inadequate material resources [facility] Diagnosis Primary osteoarthritis of right hip Primary localized osteoarthrosis, pelvic region and thigh [facility]* Diagnosis Other migraine without status migrainosus, not intractable [facility] Diagnosis Lung nodules Other nonspecific abnormal finding of lung field [facility] Diagnosis Other fatigue- Primary Neck pain Cervicalgia Chronic nonintractable headache, unspecified headache type Rib pain on left side Chest pain, unspecified [facility]* Diagnosis Essential hypertension- Primary Unspecified essential hypertension Primary osteoarthritis of both hips Primary localized osteoarthrosis, pelvic region and thigh DDD (degenerative disc disease), cervical Degeneration of cervical intervertebral disc Closed fracture of one rib of left side with routine healing, subsequent encounter [facility] Diagnosis Idiopathic pulmonary fibrosis (HCC) Idiopathic pulmonary fibrosis [facility] Diagnosis Pain- Primary Generalized pain [facility]* Diagnosis Anxiety Anxiety state, unspecified [facility] Diagnosis Primary osteoarthritis of right shoulder- Primary Primary localized osteoarthrosis, shoulder region Primary osteoarthritis of right hip Primary localized osteoarthrosis, pelvic region and thigh Primary osteoarthritis of right knee Primary localized osteoarthrosis, lower leg Primary osteoarthritis of left knee Primary localized osteoarthrosis, lower leg [facility] Diagnosis JENNY (obstructive sleep apnea)- Primary Obstructive sleep apnea (adult) (pediatric) [facility]* Diagnosis Anxiety Anxiety state, unspecified [facility] Mild persistent asthma with acute exacerbation- Primary Unspecified asthma, with exacerbation SOB (shortness of breath) Shortness of breath Palpitations JENNY on CPAP Obstructive sleep apnea (adult) (pediatric) Chronic respiratory failure with hypoxia (HCC) Chronic respiratory failure Idiopathic pulmonary fibrosis (HCC) Idiopathic pulmonary fibrosis Gastroesophageal reflux disease, unspecified whether esophagitis present Allergic rhinitis, unspecified seasonality, unspecified trigger 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 [facility] Diagnosis SOB (shortness of breath) Shortness of breath [facility] Diagnosis Anxiety Anxiety state, unspecified [facility] Diagnosis Right hip pain Pain in joint, pelvic region and thigh Neck pain Cervicalgia Rib pain on left side Chest pain, unspecified [facility] Diagnosis Interstitial pulmonary disease (HCC) Postinflammatory pulmonary fibrosis [facility] Diagnosis Anxiety- Primary Anxiety state, unspecified Encounter for immunization Need for other specified prophylactic vaccination against single bacterial disease Palpitations Psoriasis Other psoriasis Primary hypertension Unspecified essential hypertension Sinus congestion Other diseases of nasal cavity and sinuses [facility] Diagnosis SOB (shortness of breath) Shortness of breath [facility] Diagnosis Other migraine without status migrainosus, not intractable [facility] Diagnosis Anxiety Anxiety state, unspecified [facility] Diagnosis Idiopathic pulmonary fibrosis (HCC) Idiopathic pulmonary fibrosis [facility] Diagnosis Anxiety Anxiety state, unspecified [facility] Diagnosis DON (dyspnea on exertion)- Primary Other dyspnea and respiratory abnormality Palpitations Essential hypertension Unspecified essential hypertension Pure hypercholesterolemia Obstructive sleep apnea Obstructive sleep apnea (adult) (pediatric) DNR (do not resuscitate) Do not resuscitate status [facility] Diagnosis Anxiety Anxiety state, unspecified [facility] Diagnosis Anxiety Anxiety state, unspecified [facility] Diagnosis Idiopathic pulmonary fibrosis (HCC)- Primary Idiopathic pulmonary fibrosis Chronic respiratory failure with hypoxia (HCC) Chronic respiratory failure [facility] Diagnosis Pure hypercholesterolemia [facility] Diagnosis Essential hypertension- Primary Unspecified essential hypertension Pure hypercholesterolemia Chronic respiratory failure with hypoxia (HCC) Chronic respiratory failure Obstructive sleep apnea Obstructive sleep apnea (adult) (pediatric) Palpitations [facility] Diagnosis Primary insomnia- Primary Persistent disorder of initiating or maintaining sleep Frequent headaches Essential hypertension Unspecified essential hypertension Mild persistent asthma without complication Unspecified asthma Idiopathic pulmonary fibrosis (HCC) Idiopathic pulmonary fibrosis Chronic respiratory failure with hypoxia (HCC) Chronic respiratory failure Acquired hypothyroidism Unspecified hypothyroidism Primary osteoarthritis of right hip Primary localized osteoarthrosis, pelvic region and thigh Recurrent major depressive disorder, in full remission (HCC) Anxiety Anxiety state, unspecified Encounter for immunization Need for other specified prophylactic vaccination against single bacterial disease documented in this encounter [facility]* Diagnosis Hyponatremia- Primary Hyposmolality and/or hyponatremia Anemia, unspecified type [facility] Diagnosis Dysuria- Primary documented in this encounter [facility] note* Diagnosis Idiopathic pulmonary fibrosis (HCC) Idiopathic pulmonary fibrosis documented [facility]* Diagnosis Idiopathic pulmonary fibrosis (HCC) Idiopathic pulmonary fibrosis documented [facility]* Diagnosis Interstitial pulmonary disease (HCC) Postinflammatory pulmonary fibrosis documented in this encounter [facility] note* Diagnosis Interstitial pulmonary disease (HCC) Postinflammatory pulmonary fibrosis [facility] Diagnosis Interstitial pulmonary disease (HCC) Postinflammatory pulmonary fibrosis documented in this encounter [facility] note* Diagnosis Idiopathic pulmonary fibrosis (HCC)- Primary Idiopathic pulmonary fibrosis Mild persistent asthma without complication Unspecified asthma Chronic respiratory failure with hypoxia (HCC) Chronic respiratory failure Obstructive sleep apnea Obstructive sleep apnea (adult) (pediatric) Gastroesophageal reflux disease, unspecified whether esophagitis present documented in this encounter [facility] note* Diagnosis Chronic right shoulder pain Pain in joint, shoulder region documented in this encounter [facility]* Diagnosis Pain Generalized pain documented in this encounter [facility] note* Diagnosis Pain in right hip Pain in joint, pelvic region and thigh documented in this encounter [facility] note* Diagnosis Chronic pain of right knee Radicular low back pain Thoracic or lumbosacral neuritis or radiculitis, unspecified documented in this encounter [facility] noteNo assessment information availableWGe[facility] Work Phone: Reason for referral (narrative)* Outpatient Procedure (Routine) - Authorized Specialty Diagnoses / Procedures Referred By Omar t Referred To Contact [facility] Diagnoses Interstitial pulmonary disease (HCC) Procedures LUNG DIFFUSION CAPACITY (DLCO) DIFFUSING CAPACITY Sona Grier MD [address] [place] [address] [place] [address] Referral ID Status Reason Start Date Expiration Date Visits Requested Visits Authorized [id number] Authorized Auto-Generat ed Referral 10/28/2021 11/27/2022 1 1 * Outpatient Procedure (Routine) - Pending Review Specialty Diagnoses / Procedures Referred By Contac t Referred To [facility] [place] Diagnoses Interstitial pulmonary disease (HCC) Procedures LUNG VOLUMES Sona Grier MD [address] [place] [address] [place] [address] Referral ID Status Reason Start Date Expiration Date Visits Requested Visits Authorized [id number] Pending Review Auto-Generat ed Referral 10/28/2021 11/27/2022 1 1 * Outpatient Procedure (Routine) - Authorized Specialty Diagnoses / Procedures Referred By Contac t Referred To [facility] [place] Diagnoses Interstitial pulmonary disease (HCC) Procedures SPIROMETRY WITH DILATOR IF OBSTRUCTED BRNCDILAT RSPSE SPMTRY PRE&POST-BRNCDILAT ADMN Sona Grier MD [address] [place] [address] [place] [address] Referral ID Status Reason Start Date Expiration Date Visits Requested Visits Authorized [id number] Authorized Auto-Generat ed Referral 10/28/2021 11/27/2022 1 1 * MRI/CT (Routine) - Authorized Specialty Diagnoses / Procedures Referred By Contac t Referred To Contact CT IMAGING Diagnoses Interstitial pulmonary disease (HCC) Procedures CT CHEST WO IVCON DIAGNOSTIC COMPUTED TOMOGRAPHY THORAX W/O CNTRST Sona Grier MD [address] [place] [address] Ct Imaging Referral ID Status Reason Start Date Expiration Date Visits Requested Visits Authorized [id number] Authorized Auto-Generat ed Referral 2 11/27/2022 1 1 [facility] for referral (narrative)* Diagnostic Procedure Only (Routine) - Authorized Specialty Diagnoses / Procedures Referred By Contac t Referred To Contact XR IMAGING Diagnoses Right hip pain Procedures XR HIP BILATERAL 5V PEL/AP/LAT EACH HIP RADEX HIPS BILATERAL WITH PELVIS MINIMUM 5 VIEWS Сергей Espinoza MD [address] [place] [address] Xr Imaging Referral ID Status Reason Start Date Expiration Date Visits Requested Visits Authorized [id number] Authorized Auto-Generat ed Referral 2 03/16/2023 1 1 * Consult, Test, Treat (Routine) - Pending Review Specialty Diagnoses / Procedures Referred By Contac t Referred To Contact Orthopedics Diagnoses Trochanteric bursitis of right hip Right hip pain Procedures CONSULT TO ORTHOPAEDICS OFFICE/OUTPATIENT [facility] 60-74 MINUTES Сергей Espinoza MD [address] [place] [address] Referral ID Status Reason Start Date Expiration Date Visits Requested Visits Authorized [id number] Pending Review PCP Requested Referral 2 02/14/2023 1 1 [facility] for referral (narrative)* Outpatient Procedure (Routine) - Authorized Specialty Diagnoses / Procedures Referred By Contac t Referred To [facility] Diagnoses Chronic respiratory failure with hypoxia (HCC) Procedures OXIMETRY WITH AMBULATION NONINVASIVE EAR/PULSE OXIMETRY MULTIPLE Tomasa De Leon APRN.[employer] [address] [place] [address] [address] Referral ID Status Reason Start Date Expiration Date Visits Requested Visits Authorized [id number] Authorized Auto-Generat ed Referral 03/31/2022 04/30/2023 1 1 [facility] for referral (narrative)* Outpatient Procedure (Routine) - Pending Review Specialty Diagnoses / Procedures Referred By Contac t Referred To [facility] Diagnoses Idiopathic pulmonary fibrosis (HCC) Chronic respiratory failure with hypoxia (HCC) Mild persistent asthma without complication Procedures LUNG DIFFUSION CAPACITY (DLCO) DIFFUSING CAPACITY Tomasa Ramirez APRN.CNP [address] [place] [address] [address] Referral ID Status Reason Start Date Expiration Date Visits Requested Visits Authorized [id number] Pending Review Auto-Generat ed Referral 05/05/2022 06/04/2023 1 1 * Outpatient Procedure (Routine) - Pending Review Specialty Diagnoses / Procedures Referred By Contac t Referred To [facility] [place] Diagnoses Idiopathic pulmonary fibrosis (HCC) Chronic respiratory failure with hypoxia (HCC) Mild persistent asthma without complication Procedures LUNG VOLUMES Tomasa Ramirez APRN.CNP [address] [place] [address] [place] [id number] Referral ID Status Reason Start Date Expiration Date Visits Requested Visits Authorized [id number] Pending Review Auto-Generat ed Referral 05/05/2022 06/04/2023 1 1 * Outpatient Procedure (Routine) - Pending Review Specialty Diagnoses / Procedures Referred By Contac t Referred To [facility] Diagnoses Idiopathic pulmonary fibrosis (HCC) Chronic respiratory failure with hypoxia (HCC) Mild persistent asthma without complication Procedures SPIROMETRY - BASELINE AND POST DILATOR BRNCDILAT RSPSE SPMTRY PRE&POST-BRNCDILAT Tomasa Flores APRN.CNP [address] [place] [address] Respiratory [facility] [address] [place] [address] Referral ID Status Reason Start Date Expiration Date Visits Requested Visits Authorized [id number] Pending Review Auto-Generat ed Referral 05/05/2022 06/04/2023 1 1 [facility] for referral (narrative)* Diagnostic Procedure Only (Routine) - Pending Review Specialty Diagnoses / Procedures Referred By Contac t Referred To Contact XR IMAGING Diagnoses Rib pain on left side Procedures XR RIBS/CHEST 3V AP RIB/OBLS/CXR LEFT RADEX RIBS UNI W/POSTEROANT CH MINIMUM 3 VIEWS Сергей Espinoza MD [address] [place] [address] Xr Imaging Referral ID Status Reason Start Date Expiration Date Visits Requested Visits Authorized [id number] Pending Review Auto-Generat ed Referral 08/22/2022 09/21/2023 1 1 * Diagnostic Procedure Only (Routine) - Pending Review Specialty Diagnoses / Procedures Referred By Contac t Referred To Contact XR IMAGING Diagnoses Neck pain Procedures XR CERV OTHER 4V AP/LAT/OBL RADEX SPINE CERVICAL 4 OR 5 VIEWS Сергей Espinoza MD [address] [place] [address] Xr Imaging Referral ID Status Reason Start Date Expiration Date Visits Requested Visits Authorized [id number] Pending Review Auto-Generat ed Referral 08/22/2022 09/21/2023 1 1 [facility] for referral (narrative)* Diagnostic Procedure Only (Routine) - Pending Review Specialty Diagnoses / Procedures Referred By Contac t Referred To Contact XR IMAGING Diagnoses Pain Procedures XR KNEE GENERAL 4V AP BOTH/PA BOTH/LAT/MERC BILATERAL RADIOLOGIC EXAM KNEE COMPLETE 4/MORE VIEWS Al Woods PA-C [address] [place] [address] Xr Imaging Referral ID Status Reason Start Date Expiration Date Visits Requested Visits Authorized [id number] Pending Review Auto-Generat ed Referral 10/08/2022 11/07/2023 1 1 [facility] for referral (narrative)* Diagnostic Procedure Only (Routine) - Closed Specialty Diagnoses / Procedures Referred By Contac t Referred To Contact XR IMAGING Diagnoses Rib pain on left side Procedures XR RIBS/CHEST 3V AP RIB/OBLS/CXR LEFT RADEX RIBS UNI W/POSTEROANT CH MINIMUM 3 VIEWS Сергей Espinoza MD [address] [place] [address] Xr Imaging [facility] Referral ID Status Reason Start Date Expiration Date V isits Requested Visits Authorized [id number] Closed Auto-Generate d Referral 08/22/2022 09/21/2023 1 1 * Diagnostic Procedure Only (Routine) - Closed Specialty Diagnoses / Procedures Referred By Contac t Referred To Contact XR IMAGING Diagnoses Neck pain Procedures XR CERV OTHER 4V AP/LAT/OBL RADEX SPINE CERVICAL 4 OR 5 VIEWS Сергей Espinoza MD [address] [place] [address] [place] [address] Referral ID Status Reason Start Date Expiration Date V isits Requested Visits Authorized [id number] Closed Auto-Generate d Referral 08/22/2022 09/21/2023 1 1 * Diagnostic Procedure Only (Routine) - Closed Specialty Diagnoses / Procedures Referred By Contac t Referred To Contact XR IMAGING Diagnoses Right hip pain Procedures XR HIP BILATERAL 5V PEL/AP/LAT EACH HIP RADEX HIPS BILATERAL WITH PELVIS MINIMUM 5 VIEWS Сергей Espinoza MD [address] [place] [address] [place] [address] Referral ID Status Reason Start Date Expiration Date V isits Requested Visits Authorized [id number] Closed Auto-Generate d Referral 02/14/2022 03/16/2023 1 1 [facility] for referral (narrative)* Outpatient Procedure (Routine) - Closed Specialty Diagnoses / Procedures Referred By Contac t Referred To Contact [facility] [place] Diagnoses SOB (shortness of breath) Procedures ECHO ECHO TTHRC R-T 2D W/WOM-MODE COMPL SPEC&COLR D Sona Grier MD [address] [place] [address] [facility] [place] [address] [place] [address] Referral ID Status Reason Start Date Expiration Date V isits Requested Visits Authorized [id number] Closed Auto-Generate d Referral 11/28/2022 11/28/2023 1 1 [facility] for referral (narrative)* Diagnostic Procedure Only (Routine) - Closed Specialty Diagnoses / Procedures Referred By Contac t Referred To Contact XR IMAGING Diagnoses Chronic right shoulder pain Procedures XR SHOULDER GENERAL 3V OR MORE AP/TRUE AP/OTHER RIGHT RADEX SHOULDER COMPLETE MINIMUM 2 VIEWS Сергей Espinoza MD [address] [place] [address] [place] [address] Referral ID Status Reason Start Date Expiration Date V isits Requested Visits Authorized [id number] Closed Auto-Generate d Referral 09/29/2022 10/29/2023 1 1 [facility] for referral (narrative)* Diagnostic Procedure Only (Routine) - Closed Specialty Diagnoses / Procedures Referred By Contac t Referred To Contact XR IMAGING Diagnoses Pain Procedures XR KNEE GENERAL 4V AP BOTH/PA BOTH/LAT/MERC BILATERAL RADIOLOGIC EXAM KNEE COMPLETE 4/MORE VIEWS Al Woods PA-C [address] [place] [address] [place] [address] Referral ID Status Reason Start Date Expiration Date V isits Requested Visits Authorized [id number] Closed Auto-Generate d Referral 10/08/2022 11/07/2023 1 1 [facility] for referral (narrative)* Diagnostic Procedure Only (Routine) - Closed Specialty Diagnoses / Procedures Referred By Contac t Referred To Contact XR IMAGING Diagnoses Pain in right hip Procedures XR HIP GENERAL 3V PELV/AP/LAT RIGHT RADEX HIP UNILATERAL WITH PELVIS 2-3 VIEWS Hero Rubio PA-C [address] [place] [address] [place] [address] Referral ID Status Reason Start Date Expiration Date V isits Requested Visits Authorized [id number] Closed Auto-Generate d Referral 03/19/2022 04/18/2023 1 1 [facility] for referral (narrative)* Diagnostic Procedure Only (Routine) - Closed Specialty Diagnoses / Procedures Referred By Contac t Referred To Contact XR IMAGING Diagnoses Radicular low back pain Procedures XR SACRUM/COCCYX 3V AP/LAT RADEX SACRUM & COCCYX MINIMUM 2 VIEWS Сергей Espinoza MD [address] [place] [address] [place] [address] Referral ID Status Reason Start Date Expiration Date V isits Requested Visits Authorized [id number] Closed Auto-Generate d Referral 12/13/2021 01/12/2023 1 1 * Diagnostic Procedure Only (Routine) - Closed Specialty Diagnoses / Procedures Referred By Contac t Referred To Contact XR IMAGING Diagnoses Radicular low back pain Procedures XR LUMBAR GENERAL 3V AP/LAT/L5-S1 RADEX SPINE LUMBOSACRAL 2/3 VIEWS Сергей Espinoza MD [address] [place] [address] [place] [address] Referral ID Status Reason Start Date Expiration Date V isits Requested Visits Authorized [id number] Closed Auto-Generate d Referral 12/13/2021 01/12/2023 1 1 * Diagnostic Procedure Only (Routine) - Closed Specialty Diagnoses / Procedures Referred By Contac t Referred To Contact XR IMAGING Diagnoses Chronic pain of right knee Procedures XR KNEE GENERAL 4V AP BOTH/PA BOTH/LAT/MERC RIGHT RADIOLOGIC EXAM KNEE COMPLETE 4/MORE VIEWS Сергей Espinoza MD [address] [place] [address] [place] [address] Referral ID Status Reason Start Date Expiration Date V isits Requested Visits Authorized [id number] Closed Auto-Generate d Referral 12/13/2021 01/12/2023 1 1 [facility] for referral (narrative)No reason for referral information availableWGeorgetown [facility]al [facility] Work Phone: Reason for visit Narrative* Diagnostic Procedure Only (Routine) - Closed Specialty Diagnoses / Procedures Referred By Contac t Referred To Contact XR IMAGING Diagnoses Rib pain on left side Procedures XR RIBS/CHEST 3V AP RIB/OBLS/CXR LEFT RADEX RIBS UNI W/POSTEROANT CH MINIMUM 3 VIEWS Сергей Espinoza MD [address] [place] [id number] [place] [address] Referral ID Status Reason Start Date Expiration Date V isits Requested Visits Authorized [id number] Closed Auto-Generate d Referral 08/22/2022 09/21/2023 1 1 [facility] for visit Narrative* Outpatient Procedure (Routine) - Closed Specialty Diagnoses / Procedures Referred By Contac t Referred To Contact [facility] Diagnoses SOB (shortness of breath) Procedures ECHO ECHO TTHRC R-T 2D W/WOM-MODE COMPL SPEC&COLR D Sona Grier MD [address] [place] [address] [facility] [address] [place] [address] Referral ID Status Reason Start Date Expiration Date V isits Requested Visits Authorized [id number] Closed Auto-Generate d Referral 11/28/2022 11/28/2023 1 1 [facility] for visit Narrative* Diagnostic Procedure Only (Routine) - Closed Specialty Diagnoses / Procedures Referred By Contac t Referred To Contact XR IMAGING Diagnoses Chronic right shoulder pain Procedures XR SHOULDER GENERAL 3V OR MORE AP/TRUE AP/OTHER RIGHT RADEX SHOULDER COMPLETE MINIMUM 2 VIEWS Сергей Espinoza MD [address] [place] [address] [place] [address] Referral ID Status Reason Start Date Expiration Date V isits Requested Visits Authorized [id number] Closed Auto-Generate d Referral 09/29/2022 10/29/2023 1 1 [facility] for visit Narrative* Diagnostic Procedure Only (Routine) - Closed Specialty Diagnoses / Procedures Referred By Contac t Referred To Contact XR IMAGING Diagnoses Pain Procedures XR KNEE GENERAL 4V AP BOTH/PA BOTH/LAT/MERC BILATERAL RADIOLOGIC EXAM KNEE COMPLETE 4/MORE VIEWS Al Woods PA-C [address] [place] [address] [place] [address] Referral ID Status Reason Start Date Expiration Date V isits Requested Visits Authorized [id number] Closed Auto-Generate d Referral 10/08/2022 11/07/2023 1 1 [facility] for visit Narrative* Diagnostic Procedure Only (Routine) - Closed Specialty Diagnoses / Procedures Referred By Contac t Referred To Contact XR IMAGING Diagnoses Pain in right hip Procedures XR HIP GENERAL 3V PELV/AP/LAT RIGHT RADEX HIP UNILATERAL WITH PELVIS 2-3 VIEWS Hero Rubio PA-C [address] [place] [address] [place] [address] Referral ID Status Reason Start Date Expiration Date V isits Requested Visits Authorized [id number] Closed Auto-Generate d Referral 03/19/2022 04/18/2023 1 1 [facility] Diagnostic Procedure Only (Routine) - Closed Specialty Diagnoses / Procedures Referred By Omar t Referred To Contact XR IMAGING Diagnoses Radicular low back pain Procedures XR SACRUM/COCCYX 3V AP/LAT RADEX SACRUM & COCCYX MINIMUM 2 VIEWS Сергей Espinoza MD [address] [place] [id number] [place] [address] Referral ID Status Reason Start Date Expiration Date V isits Requested Visits Authorized [id number] Closed Auto-Generate d Referral 12/13/2021 01/12/2023 1 1 [facility] Summary Purpose Family History No Family History Records FoundNo Family History Records FoundNo Family History Records FoundNo Family History Records FoundNo Family History Records FoundNo Family History Records Found Advance Directives Documents on File 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 Date 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 Advance Directive(s) Advance Directive(s) 12/21/2020 6:28 PM Advance Directive(s) 06/07/2018 1:54 PM Advance Directive(s) 09/09/2017 12:13 PM Advance Directive(s) 04/01/2017 9:07 AM Advance Directive(s) 11/14/2016 9:35 AM Advance Directive(s) 06/03/2016 1:04 PM Advance Directive(s) 05/26/2016 4:39 PM Reason for Referral Specialty Diagnoses / Procedures Referred By Omar t Referred To Contact Сергей Espinoza MD [address] [place] [id number] Referral ID Status Reason Start Date Expiration Date Visits Re quested Visits Authorized [id number] Closed 1 1 Specialty Diagnoses / Procedures Referred By Omar t Referred To Contact Diagnoses Idiopathic pulmonary fibrosis (HCC) Brinda Bah, PABreanna [address] [place] [address] Referral ID Status Reason Start Date Expiration Date V isits Requested Visits Authorized [id number] Authorized 09/26/2021 09/25/2022 1 1 Specialty Diagnoses / Procedures Referred By Contac t Referred To Contact Brinda Dominguez APRN.[employer] [address] [place] [address] Referral ID Status Reason Start Date Expiration Date V isits Requested Visits Authorized [id number] Pending Review 1 1 Specialty Diagnoses / Procedures Referred By Contac t Referred To Contact CT IMAGING Diagnoses Lung nodules Procedures CT CHEST WO IVCON DIAGNOSTIC COMPUTED TOMOGRAPHY THORAX W/O CNTRST Sona Grier MD [address] [place] [address] Ct Imaging Referral ID Status Reason Start Date Expiration Date Visits Requested Visits Authorized [id number] Pending Review Auto-Generat ed Referral 07/09/2022 05/11/2023 1 1 Referral ID Status Reason Start Date Expiration Date V isits Requested Visits Authorized [id number] Closed Auto-Generate d Referral 07/09/2022 05/11/2023 1 1 Specialty Diagnoses / Procedures Referred By Contac t Referred To Contact Kenyon Zuniga APRN.[employer] [address] [place] [address] Referral ID Status Reason Start Date Expiration Date V isits Requested Visits Authorized [id number] Pending Review 1 1 Specialty Diagnoses / Procedures Referred By Contac t Referred To Contact Cardiology / PULMONARY MEDICINE Diagnoses SOB (shortness of breath) Procedures CONSULT TO CARDIOLOGY OFFICE/OUTPATIENT NEW HIGH MDM 60-74 MINUTES Sona Grier MD [address] [place] [address] [facility] [address] [place] [address] Referral ID Status Reason Start Date Expiration Date Visits Requested Visits Authorized [id number] Authorized PCP Requested Referral 11/28/2022 11/28/2023 1 1 Specialty Diagnoses / Procedures Referred By Contac t Referred [facility] Diagnoses SOB (shortness of breath) Procedures ECG COMPLETE ECG ROUTINE ECG W/LEAST 12 LDS W/I&R Sona Grier MD [address] [place] [address] [facility] V[facility] [address] [address] Referral ID Status Reason Start Date Expiration Date Visits Requested Visits Authorized [id number] Pending Review Auto-Generat ed Referral 11/28/2022 11/28/2023 1 1 Specialty Diagnoses / Procedures Referred By Contac t Referred To Contact [facility] [place] Diagnoses SOB (shortness of breath) Procedures ECHO ECHO TTHRC R-T 2D W/WOM-MODE COMPL SPEC&COLR D Sona Grier MD [address] [place] [address] [facility] [address] [address] Referral ID Status Reason Start Date Expiration Date Visits Requested Visits Authorized [id number] Authorized Auto-Generat ed Referral 11/28/2022 11/28/2023 1 1 Specialty Diagnoses / Procedures Referred By Contac t Referred To Contact CT IMAGING Diagnoses Interstitial pulmonary disease (HCC) Procedures CT CHEST WO IVCON DIAGNOSTIC COMPUTED TOMOGRAPHY THORAX W/O CNTRST Sona Grier MD [address] [place] [address] Ct Imaging [facility] Referral ID Status Reason Start Date Expiration Date V isits Requested Visits Authorized [id number] Closed Auto-Generate d Referral 01/28/2022 11/27/2022 1 1 Referral ID Status Reason Start Date Expiration Date Visits Re quested Visits Authorized [id number] Closed 1 1 Specialty Diagnoses / Procedures Referred By Contac t Referred To Contact Tomasa Ramirez APRN.[employer] [address] [place] [address] Referral ID Status Reason Start Date Expiration Date V isits Requested Visits Authorized [id number] Authorized 03/02/2023 03/01/2024 1 1 Chief Complaint Red painful rash to left face Medications Administered Section Inactive Administered Medications - up to 3 most recent administrations Medication Order MAR Action Action Date Dose Rate Site betamethasone acetate-betamethasone sodium phosphate 12 mg injection (CELESTONE) 12 mg, Injection - FOR ORTHO USE ONLY, ONE TIME INJECTION, 1 dose, Starting on Thu10/24/22 at 1622, Until Thu10/24/22 at 1622 Given 10/24/2022 4:22 PM EDT 12 mg Knee, Right lidocaine (PF) 10 mg/mL (1 %) 3 mL injection (XYLOCAINE) 3 mL, Injection - FOR ORTHO USE ONLY, ONE TIME INJECTION, 1 dose, Starting on Thu10/24/22 at 1622, Until Thu10/24/22 at 1622 Given 10/24/2022 4:22 PM EDT 3 mL Knee, Right Chief Complaint and Reason for Visit Chief Complaint Admit Date MONTHLY NOTE March 04, 2024 4: 45pm MONTHLY EXAM April 05, 2024 7 :35pm DETENTION LAB WORK April 07, 2024 5:00am LABWORK April 19, 2024 5:00am MONTHLY NOTE April 21, 2024 5:01pm LABWORK April 23, 2024 12:00pm MONTHLY NOTE May 11, 2024 12: 09pm DETENTION LAB WORK May 17, 2024 5 :00am Chief Complaint Admit Date MONTHLY EXAM April 05, 2024 7 :35pm DETENTION LAB WORK April 07, 2024 5:00am LABWORK April 19, 2024 5:00am MONTHLY NOTE April 21, 2024 5:01pm LABWORK April 23, 2024 12:00pm MONTHLY NOTE May 11, 2024 12: 09pm DETENTION LAB WORK May 17, 2024 5 :00am MONTHLY EXAM May 31, 2024 5:25 pm DETENTION LAB WORK July 19, 2024 5:0 0am Additional Source Comments INFORMATION SOURCE (unrecogn ized section and content) DATE CREATED AUTHOR 12/24/2020 [facility] DATE CREATED AUTHOR AUTHOR'S ORGANIZ ATION 04/20/2022 [facility] DATE CREATED AUTHOR AUTHOR'S ORGANIZ ATION 04/20/2022 [employer] DATE CREATED AUTHOR AUTHOR'S ORGANIZ ATION 05/01/2023 [facility] DATE CREATED AUTHOR AUTHOR'S ORGANIZ ATION 04/19/2024 [facility] DATE CREATED AUTHOR AUTHOR'S ORGANIZ ATION 08/04/2024 [facility] Source Comments (unrecognize d section and content) In the event this informatio n is protected by the Federal Confidentiality of Alcohol and Drug Abuse Patient Records regulations: The Federal rules restrict any use of the information to criminally investigate or prosecute any alcohol or drug abuse patient.[facility]In the event this information is protected by the Federal Confidentiality of Alcohol and Drug Abuse Patient Records regulations: The Federal rules restrict any use of the information to criminally investigate or prosecute any alcohol or drug abuse patient.[facility] HospitalIn the event this information is protected by the Federal Confidentiality of Alcohol and Drug Abuse Patient Records regulations: The Federal rules restrict any use of the information to criminally investigate or prosecute any alcohol or drug abuse patient.[facility] HospitalIn the event this information is protected by the Federal Confidentiality of Alcohol and Drug Abuse Patient Records regulations: The Federal rules restrict any use of the information to criminally investigate or prosecute any alcohol or drug abuse patient.[facility] HospitalIn the event this information is protected by the Federal Confidentiality of Alcohol and Drug Abuse Patient Records regulations: The Federal rules restrict any use of the information to criminally investigate or prosecute any alcohol or drug abuse patient.[facility] HospitalIn the event this information is protected by the Federal Confidentiality of Alcohol and Drug Abuse Patient Records regulations: The Federal rules restrict any use of the information to criminally investigate or prosecute any alcohol or drug abuse patient.[facility] HospitalIn the event this information is protected by the Federal Confidentiality of Alcohol and Drug Abuse Patient Records regulations: The Federal rules restrict any use of the information to criminally investigate or prosecute any alcohol or drug abuse patient.[facility] HospitalIn the event this information is protected by the Federal Confidentiality of Alcohol and Drug Abuse Patient Records regulations: The Federal rules restrict any use of the information to criminally investigate or prosecute any alcohol or drug abuse patient.[facility] HospitalIn the event this information is protected by the Federal Confidentiality of Alcohol and Drug Abuse Patient Records regulations: The Federal rules restrict any use of the information to criminally investigate or prosecute any alcohol or drug abuse patient.[facility] HospitalIn the event this information is protected by the Federal Confidentiality of Alcohol and Drug Abuse Patient Records regulations: The Federal rules restrict any use of the information to criminally investigate or prosecute any alcohol or drug abuse patient.[facility] HospitalIn the event this information is protected by the Federal Confidentiality of Alcohol and Drug Abuse Patient Records regulations: The Federal rules restrict any use of the information to criminally investigate or prosecute any alcohol or drug abuse patient.[facility] HospitalIn the event this information is protected by the Federal Confidentiality of Alcohol and Drug Abuse Patient Records regulations: The Federal rules restrict any use of the information to criminally investigate or prosecute any alcohol or drug abuse patient.[facility] HospitalIn the event this information is protected by the Federal Confidentiality of Alcohol and Drug Abuse Patient Records regulations: The Federal rules restrict any use of the information to criminally investigate or prosecute any alcohol or drug abuse patient.[facility] HospitalIn the event this information is protected by the Federal Confidentiality of Alcohol and Drug Abuse Patient Records regulations: The Federal rules restrict any use of the information to criminally investigate or prosecute any alcohol or drug abuse patient.[facility] HospitalIn the event this information is protected by the Federal Confidentiality of Alcohol and Drug Abuse Patient Records regulations: The Federal rules restrict any use of the information to criminally investigate or prosecute any alcohol or drug abuse patient.[facility] HospitalIn the event this information is protected by the Federal Confidentiality of Alcohol and Drug Abuse Patient Records regulations: The Federal rules restrict any use of the information to criminally investigate or prosecute any alcohol or drug abuse patient.[facility] HospitalIn the event this information is protected by the Federal Confidentiality of Alcohol and Drug Abuse Patient Records regulations: The Federal rules restrict any use of the information to criminally investigate or prosecute any alcohol or drug abuse patient.[facility] HospitalIn the event this information is protected by the Federal Confidentiality of Alcohol and Drug Abuse Patient Records regulations: The Federal rules restrict any use of the information to criminally investigate or prosecute any alcohol or drug abuse patient.[facility] HospitalIn the event this information is protected by the Federal Confidentiality of Alcohol and Drug Abuse Patient Records regulations: The Federal rules restrict any use of the information to criminally investigate or prosecute any alcohol or drug abuse patient.[facility] HospitalIn the event this information is protected by the Federal Confidentiality of Alcohol and Drug Abuse Patient Records regulations: The Federal rules restrict any use of the information to criminally investigate or prosecute any alcohol or drug abuse patient.[facility] HospitalIn the event this information is protected by the Federal Confidentiality of Alcohol and Drug Abuse Patient Records regulations: The Federal rules restrict any use of the information to criminally investigate or prosecute any alcohol or drug abuse patient.[facility] HospitalIn the event this information is protected by the Federal Confidentiality of Alcohol and Drug Abuse Patient Records regulations: The Federal rules restrict any use of the information to criminally investigate or prosecute any alcohol or drug abuse patient.[facility] HospitalIn the event this information is protected by the Federal Confidentiality of Alcohol and Drug Abuse Patient Records regulations: The Federal rules restrict any use of the information to criminally investigate or prosecute any alcohol or drug abuse patient.[facility] HospitalIn the event this information is protected by the Federal Confidentiality of Alcohol and Drug Abuse Patient Records regulations: The Federal rules restrict any use of the information to criminally investigate or prosecute any alcohol or drug abuse patient.[facility] HospitalIn the event this information is protected by the Federal Confidentiality of Alcohol and Drug Abuse Patient Records regulations: The Federal rules restrict any use of the information to criminally investigate or prosecute any alcohol or drug abuse patient.[facility] HospitalIn the event this information is protected by the Federal Confidentiality of Alcohol and Drug Abuse Patient Records regulations: The Federal rules restrict any use of the information to criminally investigate or prosecute any alcohol or drug abuse patient.[facility] HospitalIn the event this information is protected by the Federal Confidentiality of Alcohol and Drug Abuse Patient Records regulations: The Federal rules restrict any use of the information to criminally investigate or prosecute any alcohol or drug abuse patient.[facility] HospitalIn the event this information is protected by the Federal Confidentiality of Alcohol and Drug Abuse Patient Records regulations: The Federal rules restrict any use of the information to criminally investigate or prosecute any alcohol or drug abuse patient.[facility] HospitalIn the event this information is protected by the Federal Confidentiality of Alcohol and Drug Abuse Patient Records regulations: The Federal rules restrict any use of the information to criminally investigate or prosecute any alcohol or drug abuse patient.[facility] HospitalIn the event this information is protected by the Federal Confidentiality of Alcohol and Drug Abuse Patient Records regulations: The Federal rules restrict any use of the information to criminally investigate or prosecute any alcohol or drug abuse patient.[facility] HospitalIn the event this information is protected by the Federal Confidentiality of Alcohol and Drug Abuse Patient Records regulations: The Federal rules restrict any use of the information to criminally investigate or prosecute any alcohol or drug abuse patient.[facility] HospitalIn the event this information is protected by the Federal Confidentiality of Alcohol and Drug Abuse Patient Records regulations: The Federal rules restrict any use of the information to criminally investigate or prosecute any alcohol or drug abuse patient.[facility] HospitalIn the event this information is protected by the Federal Confidentiality of Alcohol and Drug Abuse Patient Records regulations: The Federal rules restrict any use of the information to criminally investigate or prosecute any alcohol or drug abuse patient.[facility] HospitalIn the event this information is protected by the Federal Confidentiality of Alcohol and Drug Abuse Patient Records regulations: The Federal rules restrict any use of the information to criminally investigate or prosecute any alcohol or drug abuse patient.[facility] HospitalIn the event this information is protected by the Federal Confidentiality of Alcohol and Drug Abuse Patient Records regulations: The Federal rules restrict any use of the information to criminally investigate or prosecute any alcohol or drug abuse patient.[facility] HospitalIn the event this information is protected by the Federal Confidentiality of Alcohol and Drug Abuse Patient Records regulations: The Federal rules restrict any use of the information to criminally investigate or prosecute any alcohol or drug abuse patient.[facility] HospitalIn the event this information is protected by the Federal Confidentiality of Alcohol and Drug Abuse Patient Records regulations: The Federal rules restrict any use of the information to criminally investigate or prosecute any alcohol or drug abuse patient.[facility] HospitalIn the event this information is protected by the Federal Confidentiality of Alcohol and Drug Abuse Patient Records regulations: The Federal rules restrict any use of the information to criminally investigate or prosecute any alcohol or drug abuse patient.[facility] HospitalIn the event this information is protected by the Federal Confidentiality of Alcohol and Drug Abuse Patient Records regulations: The Federal rules restrict any use of the information to criminally investigate or prosecute any alcohol or drug abuse patient.[facility] HospitalIn the event this information is protected by the Federal Confidentiality of Alcohol and Drug Abuse Patient Records regulations: The Federal rules restrict any use of the information to criminally investigate or prosecute any alcohol or drug abuse patient.[facility] HospitalIn the event this information is protected by the Federal Confidentiality of Alcohol and Drug Abuse Patient Records regulations: The Federal rules restrict any use of the information to criminally investigate or prosecute any alcohol or drug abuse patient.[facility] HospitalIn the event this information is protected by the Federal Confidentiality of Alcohol and Drug Abuse Patient Records regulations: The Federal rules restrict any use of the information to criminally investigate or prosecute any alcohol or drug abuse patient.[facility] HospitalIn the event this information is protected by the Federal Confidentiality of Alcohol and Drug Abuse Patient Records regulations: The Federal rules restrict any use of the information to criminally investigate or prosecute any alcohol or drug abuse patient.[facility] HospitalIn the event this information is protected by the Federal Confidentiality of Alcohol and Drug Abuse Patient Records regulations: The Federal rules restrict any use of the information to criminally investigate or prosecute any alcohol or drug abuse patient.[facility] HospitalIn the event this information is protected by the Federal Confidentiality of Alcohol and Drug Abuse Patient Records regulations: The Federal rules restrict any use of the information to criminally investigate or prosecute any alcohol or drug abuse patient.[facility] HospitalIn the event this information is protected by the Federal Confidentiality of Alcohol and Drug Abuse Patient Records regulations: The Federal rules restrict any use of the information to criminally investigate or prosecute any alcohol or drug abuse patient.[facility] HospitalIn the event this information is protected by the Federal Confidentiality of Alcohol and Drug Abuse Patient Records regulations: The Federal rules restrict any use of the information to criminally investigate or prosecute any alcohol or drug abuse patient.[facility] HospitalIn the event this information is protected by the Federal Confidentiality of Alcohol and Drug Abuse Patient Records regulations: The Federal rules restrict any use of the information to criminally investigate or prosecute any alcohol or drug abuse patient.[facility] HospitalIn the event this information is protected by the Federal Confidentiality of Alcohol and Drug Abuse Patient Records regulations: The Federal rules restrict any use of the information to criminally investigate or prosecute any alcohol or drug abuse patient.[facility] HospitalIn the event this information is protected by the Federal Confidentiality of Alcohol and Drug Abuse Patient Records regulations: The Federal rules restrict any use of the information to criminally investigate or prosecute any alcohol or drug abuse patient.[facility] HospitalIn the event this information is protected by the Federal Confidentiality of Alcohol and Drug Abuse Patient Records regulations: The Federal rules restrict any use of the information to criminally investigate or prosecute any alcohol or drug abuse patient.[facility] HospitalIn the event this information is protected by the Federal Confidentiality of Alcohol and Drug Abuse Patient Records regulations: The Federal rules restrict any use of the information to criminally investigate or prosecute any alcohol or drug abuse patient.[facility] HospitalIn the event this information is protected by the Federal Confidentiality of Alcohol and Drug Abuse Patient Records regulations: The Federal rules restrict any use of the information to criminally investigate or prosecute any alcohol or drug abuse patient.[facility] HospitalIn the event this information is protected by the Federal Confidentiality of Alcohol and Drug Abuse Patient Records regulations: The Federal rules restrict any use of the information to criminally investigate or prosecute any alcohol or drug abuse patient.[facility] HospitalIn the event this information is protected by the Federal Confidentiality of Alcohol and Drug Abuse Patient Records regulations: The Federal rules restrict any use of the information to criminally investigate or prosecute any alcohol or drug abuse patient.[facility] HospitalIn the event this information is protected by the Federal Confidentiality of Alcohol and Drug Abuse Patient Records regulations: The Federal rules restrict any use of the information to criminally investigate or prosecute any alcohol or drug abuse patient.[facility] HospitalIn the event this information is protected by the Federal Confidentiality of Alcohol and Drug Abuse Patient Records regulations: The Federal rules restrict any use of the information to criminally investigate or prosecute any alcohol or drug abuse patient.[facility] HospitalIn the event this information is protected by the Federal Confidentiality of Alcohol and Drug Abuse Patient Records regulations: The Federal rules restrict any use of the information to criminally investigate or prosecute any alcohol or drug abuse patient.[facility] HospitalIn the event this information is protected by the Federal Confidentiality of Alcohol and Drug Abuse Patient Records regulations: The Federal rules restrict any use of the information to criminally investigate or prosecute any alcohol or drug abuse patient.[facility] HospitalIn the event this information is protected by the Federal Confidentiality of Alcohol and Drug Abuse Patient Records regulations: The Federal rules restrict any use of the information to criminally investigate or prosecute any alcohol or drug abuse patient.[facility] HospitalIn the event this information is protected by the Federal Confidentiality of Alcohol and Drug Abuse Patient Records regulations: The Federal rules restrict any use of the information to criminally investigate or prosecute any alcohol or drug abuse patient.[facility] HospitalIn the event this information is protected by the Federal Confidentiality of Alcohol and Drug Abuse Patient Records regulations: The Federal rules restrict any use of the information to criminally investigate or prosecute any alcohol or drug abuse patient.[facility] HospitalIn the event this information is protected by the Federal Confidentiality of Alcohol and Drug Abuse Patient Records regulations: The Federal rules restrict any use of the information to criminally investigate or prosecute any alcohol or drug abuse patient.[facility] HospitalIn the event this information is protected by the Federal Confidentiality of Alcohol and Drug Abuse Patient Records regulations: The Federal rules restrict any use of the information to criminally investigate or prosecute any alcohol or drug abuse patient.[facility] HospitalIn the event this information is protected by the Federal Confidentiality of Alcohol and Drug Abuse Patient Records regulations: The Federal rules restrict any use of the information to criminally investigate or prosecute any alcohol or drug abuse patient.[facility] HospitalIn the event this information is protected by the Federal Confidentiality of Alcohol and Drug Abuse Patient Records regulations: The Federal rules restrict any use of the information to criminally investigate or prosecute any alcohol or drug abuse patient.[facility] HospitalIn the event this information is protected by the Federal Confidentiality of Alcohol and Drug Abuse Patient Records regulations: The Federal rules restrict any use of the information to criminally investigate or prosecute any alcohol or drug abuse patient.[facility] HospitalIn the event this information is protected by the Federal Confidentiality of Alcohol and Drug Abuse Patient Records regulations: The Federal rules restrict any use of the information to criminally investigate or prosecute any alcohol or drug abuse patient.[facility] HospitalIn the event this information is protected by the Federal Confidentiality of Alcohol and Drug Abuse Patient Records regulations: The Federal rules restrict any use of the information to criminally investigate or prosecute any alcohol or drug abuse patient.[facility] HospitalIn the event this information is protected by the Federal Confidentiality of Alcohol and Drug Abuse Patient Records regulations: The Federal rules restrict any use of the information to criminally investigate or prosecute any alcohol or drug abuse patient.[facility] HospitalIn the event this information is protected by the Federal Confidentiality of Alcohol and Drug Abuse Patient Records regulations: The Federal rules restrict any use of the information to criminally investigate or prosecute any alcohol or drug abuse patient.[facility] HospitalIn the event this information is protected by the Federal Confidentiality of Alcohol and Drug Abuse Patient Records regulations: The Federal rules restrict any use of the information to criminally investigate or prosecute any alcohol or drug abuse patient.[facility] HospitalIn the event this information is protected by the Federal Confidentiality of Alcohol and Drug Abuse Patient Records regulations: The Federal rules restrict any use of the information to criminally investigate or prosecute any alcohol or drug abuse patient.[facility] HospitalIn the event this information is protected by the Federal Confidentiality of Alcohol and Drug Abuse Patient Records regulations: The Federal rules restrict any use of the information to criminally investigate or prosecute any alcohol or drug abuse patient.[facility] HospitalIn the event this information is protected by the Federal Confidentiality of Alcohol and Drug Abuse Patient Records regulations: The Federal rules restrict any use of the information to criminally investigate or prosecute any alcohol or drug abuse patient.[facility] HospitalIn the event this information is protected by the Federal Confidentiality of Alcohol and Drug Abuse Patient Records regulations: The Federal rules restrict any use of the information to criminally investigate or prosecute any alcohol or drug abuse patient.[facility] HospitalIn the event this information is protected by the Federal Confidentiality of Alcohol and Drug Abuse Patient Records regulations: The Federal rules restrict any use of the information to criminally investigate or prosecute any alcohol or drug abuse patient.[facility] HospitalIn the event this information is protected by the Federal Confidentiality of Alcohol and Drug Abuse Patient Records regulations: The Federal rules restrict any use of the information to criminally investigate or prosecute any alcohol or drug abuse patient.[facility] HospitalIn the event this information is protected by the Federal Confidentiality of Alcohol and Drug Abuse Patient Records regulations: The Federal rules restrict any use of the information to criminally investigate or prosecute any alcohol or drug abuse patient.[facility] HospitalIn the event this information is protected by the Federal Confidentiality of Alcohol and Drug Abuse Patient Records regulations: The Federal rules restrict any use of the information to criminally investigate or prosecute any alcohol or drug abuse patient.[facility] HospitalIn the event this information is protected by the Federal Confidentiality of Alcohol and Drug Abuse Patient Records regulations: The Federal rules restrict any use of the information to criminally investigate or prosecute any alcohol or drug abuse patient.[facility] HospitalIn the event this information is protected by the Federal Confidentiality of Alcohol and Drug Abuse Patient Records regulations: The Federal rules restrict any use of the information to criminally investigate or prosecute any alcohol or drug abuse patient.[facility] HospitalIn the event this information is protected by the Federal Confidentiality of Alcohol and Drug Abuse Patient Records regulations: The Federal rules restrict any use of the information to criminally investigate or prosecute any alcohol or drug abuse patient.[facility] HospitalIn the event this information is protected by the Federal Confidentiality of Alcohol and Drug Abuse Patient Records regulations: The Federal rules restrict any use of the information to criminally investigate or prosecute any alcohol or drug abuse patient.[facility] HospitalIn the event this information is protected by the Federal Confidentiality of Alcohol and Drug Abuse Patient Records regulations: The Federal rules restrict any use of the information to criminally investigate or prosecute any alcohol or drug abuse patient.[facility] HospitalIn the event this information is protected by the Federal Confidentiality of Alcohol and Drug Abuse Patient Records regulations: The Federal rules restrict any use of the information to criminally investigate or prosecute any alcohol or drug abuse patient.[facility] HospitalIn the event this information is protected by the Federal Confidentiality of Alcohol and Drug Abuse Patient Records regulations: The Federal rules restrict any use of the information to criminally investigate or prosecute any alcohol or drug abuse patient.[facility] HospitalIn the event this information is protected by the Federal Confidentiality of Alcohol and Drug Abuse Patient Records regulations: The Federal rules restrict any use of the information to criminally investigate or prosecute any alcohol or drug abuse patient.[facility] HospitalIn the event this information is protected by the Federal Confidentiality of Alcohol and Drug Abuse Patient Records regulations: The Federal rules restrict any use of the information to criminally investigate or prosecute any alcohol or drug abuse patient.[facility] HospitalIn the event this information is protected by the Federal Confidentiality of Alcohol and Drug Abuse Patient Records regulations: The Federal rules restrict any use of the information to criminally investigate or prosecute any alcohol or drug abuse patient.[facility] HospitalIn the event this information is protected by the Federal Confidentiality of Alcohol and Drug Abuse Patient Records regulations: The Federal rules restrict any use of the information to criminally investigate or prosecute any alcohol or drug abuse patient.[facility] HospitalIn the event this information is protected by the Federal Confidentiality of Alcohol and Drug Abuse Patient Records regulations: The Federal rules restrict any use of the information to criminally investigate or prosecute any alcohol or drug abuse patient.[facility] HospitalIn the event this information is protected by the Federal Confidentiality of Alcohol and Drug Abuse Patient Records regulations: The Federal rules restrict any use of the information to criminally investigate or prosecute any alcohol or drug abuse patient.[facility] HospitalIn the event this information is protected by the Federal Confidentiality of Alcohol and Drug Abuse Patient Records regulations: The Federal rules restrict any use of the information to criminally investigate or prosecute any alcohol or drug abuse patient.[facility] HospitalIn the event this information is protected by the Federal Confidentiality of Alcohol and Drug Abuse Patient Records regulations: The Federal rules restrict any use of the information to criminally investigate or prosecute any alcohol or drug abuse patient.[facility] HospitalIn the event this information is protected by the Federal Confidentiality of Alcohol and Drug Abuse Patient Records regulations: The Federal rules restrict any use of the information to criminally investigate or prosecute any alcohol or drug abuse patient.[facility] HospitalIn the event this information is protected by the Federal Confidentiality of Alcohol and Drug Abuse Patient Records regulations: The Federal rules restrict any use of the information to criminally investigate or prosecute any alcohol or drug abuse patient.[facility] HospitalIn the event this information is protected by the Federal Confidentiality of Alcohol and Drug Abuse Patient Records regulations: The Federal rules restrict any use of the information to criminally investigate or prosecute any alcohol or drug abuse patient.[facility] HospitalIn the event this information is protected by the Federal Confidentiality of Alcohol and Drug Abuse Patient Records regulations: The Federal rules restrict any use of the information to criminally investigate or prosecute any alcohol or drug abuse patient.[facility] HospitalIn the event this information is protected by the Federal Confidentiality of Alcohol and Drug Abuse Patient Records regulations: The Federal rules restrict any use of the information to criminally investigate or prosecute any alcohol or drug abuse patient.[facility] HospitalIn the event this information is protected by the Federal Confidentiality of Alcohol and Drug Abuse Patient Records regulations: The Federal rules restrict any use of the information to criminally investigate or prosecute any alcohol or drug abuse patient.[facility] HospitalIn the event this information is protected by the Federal Confidentiality of Alcohol and Drug Abuse Patient Records regulations: The Federal rules restrict any use of the information to criminally investigate or prosecute any alcohol or drug abuse patient.[facility] HospitalIn the event this information is protected by the Federal Confidentiality of Alcohol and Drug Abuse Patient Records regulations: The Federal rules restrict any use of the information to criminally investigate or prosecute any alcohol or drug abuse patient.[facility] HospitalIn the event this information is protected by the Federal Confidentiality of Alcohol and Drug Abuse Patient Records regulations: The Federal rules restrict any use of the information to criminally investigate or prosecute any alcohol or drug abuse patient.[facility] HospitalIn the event this information is protected by the Federal Confidentiality of Alcohol and Drug Abuse Patient Records regulations: The Federal rules restrict any use of the information to criminally investigate or prosecute any alcohol or drug abuse patient.[facility] HospitalIn the event this information is protected by the Federal Confidentiality of Alcohol and Drug Abuse Patient Records regulations: The Federal rules restrict any use of the information to criminally investigate or prosecute any alcohol or drug abuse patient.[facility] HospitalIn the event this information is protected by the Federal Confidentiality of Alcohol and Drug Abuse Patient Records regulations: The Federal rules restrict any use of the information to criminally investigate or prosecute any alcohol or drug abuse patient.[facility] HospitalIn the event this information is protected by the Federal Confidentiality of Alcohol and Drug Abuse Patient Records regulations: The Federal rules restrict any use of the information to criminally investigate or prosecute any alcohol or drug abuse patient.[facility] HospitalIn the event this information is protected by the Federal Confidentiality of Alcohol and Drug Abuse Patient Records regulations: The Federal rules restrict any use of the information to criminally investigate or prosecute any alcohol or drug abuse patient.[facility] HospitalIn the event this information is protected by the Federal Confidentiality of Alcohol and Drug Abuse Patient Records regulations: The Federal rules restrict any use of the information to criminally investigate or prosecute any alcohol or drug abuse patient.[facility] HospitalIn the event this information is protected by the Federal Confidentiality of Alcohol and Drug Abuse Patient Records regulations: The Federal rules restrict any use of the information to criminally investigate or prosecute any alcohol or drug abuse patient.[facility] HospitalIn the event this information is protected by the Federal Confidentiality of Alcohol and Drug Abuse Patient Records regulations: The Federal rules restrict any use of the information to criminally investigate or prosecute any alcohol or drug abuse patient.[facility] HospitalIn the event this information is protected by the Federal Confidentiality of Alcohol and Drug Abuse Patient Records regulations: The Federal rules restrict any use of the information to criminally investigate or prosecute any alcohol or drug abuse patient.[facility] HospitalIn the event this information is protected by the Federal Confidentiality of Alcohol and Drug Abuse Patient Records regulations: The Federal rules restrict any use of the information to criminally investigate or prosecute any alcohol or drug abuse patient.[facility] HospitalIn the event this information is protected by the Federal Confidentiality of Alcohol and Drug Abuse Patient Records regulations: The Federal rules restrict any use of the information to criminally investigate or prosecute any alcohol or drug abuse patient.[facility] HospitalIn the event this information is protected by the Federal Confidentiality of Alcohol and Drug Abuse Patient Records regulations: The Federal rules restrict any use of the information to criminally investigate or prosecute any alcohol or drug abuse patient.[facility] HospitalIn the event this information is protected by the Federal Confidentiality of Alcohol and Drug Abuse Patient Records regulations: The Federal rules restrict any use of the information to criminally investigate or prosecute any alcohol or drug abuse patient.[facility] HospitalIn the event this information is protected by the Federal Confidentiality of Alcohol and Drug Abuse Patient Records regulations: The Federal rules restrict any use of the information to criminally investigate or prosecute any alcohol or drug abuse patient.[facility] HospitalIn the event this information is protected by the Federal Confidentiality of Alcohol and Drug Abuse Patient Records regulations: The Federal rules restrict any use of the information to criminally investigate or prosecute any alcohol or drug abuse patient.[facility] HospitalIn the event this information is protected by the Federal Confidentiality of Alcohol and Drug Abuse Patient Records regulations: The Federal rules restrict any use of the information to criminally investigate or prosecute any alcohol or drug abuse patient.[facility] HospitalIn the event this information is protected by the Federal Confidentiality of Alcohol and Drug Abuse Patient Records regulations: The Federal rules restrict any use of the information to criminally investigate or prosecute any alcohol or drug abuse patient.[facility] HospitalIn the event this information is protected by the Federal Confidentiality of Alcohol and Drug Abuse Patient Records regulations: The Federal rules restrict any use of the information to criminally investigate or prosecute any alcohol or drug abuse patient.[facility] HospitalIn the event this information is protected by the Federal Confidentiality of Alcohol and Drug Abuse Patient Records regulations: The Federal rules restrict any use of the information to criminally investigate or prosecute any alcohol or drug abuse patient.[facility] HospitalIn the event this information is protected by the Federal Confidentiality of Alcohol and Drug Abuse Patient Records regulations: The Federal rules restrict any use of the information to criminally investigate or prosecute any alcohol or drug abuse patient.[facility] HospitalIn the event this information is protected by the Federal Confidentiality of Alcohol and Drug Abuse Patient Records regulations: The Federal rules restrict any use of the information to criminally investigate or prosecute any alcohol or drug abuse patient.[facility] HospitalIn the event this information is protected by the Federal Confidentiality of Alcohol and Drug Abuse Patient Records regulations: The Federal rules restrict any use of the information to criminally investigate or prosecute any alcohol or drug abuse patient.[facility] HospitalIn the event this information is protected by the Federal Confidentiality of Alcohol and Drug Abuse Patient Records regulations: The Federal rules restrict any use of the information to criminally investigate or prosecute any alcohol or drug abuse patient.[facility] HospitalIn the event this information is protected by the Federal Confidentiality of Alcohol and Drug Abuse Patient Records regulations: The Federal rules restrict any use of the information to criminally investigate or prosecute any alcohol or drug abuse patient.[facility] HospitalIn the event this information is protected by the Federal Confidentiality of Alcohol and Drug Abuse Patient Records regulations: The Federal rules restrict any use of the information to criminally investigate or prosecute any alcohol or drug abuse patient.[facility] HospitalIn the event this information is protected by the Federal Confidentiality of Alcohol and Drug Abuse Patient Records regulations: The Federal rules restrict any use of the information to criminally investigate or prosecute any alcohol or drug abuse patient.[facility] HospitalIn the event this information is protected by the Federal Confidentiality of Alcohol and Drug Abuse Patient Records regulations: The Federal rules restrict any use of the information to criminally investigate or prosecute any alcohol or drug abuse patient.[facility] HospitalIn the event this information is protected by the Federal Confidentiality of Alcohol and Drug Abuse Patient Records regulations: The Federal rules restrict any use of the information to criminally investigate or prosecute any alcohol or drug abuse patient.[facility] HospitalIn the event this information is protected by the Federal Confidentiality of Alcohol and Drug Abuse Patient Records regulations: The Federal rules restrict any use of the information to criminally investigate or prosecute any alcohol or drug abuse patient.[facility] HospitalIn the event this information is protected by the Federal Confidentiality of Alcohol and Drug Abuse Patient Records regulations: The Federal rules restrict any use of the information to criminally investigate or prosecute any alcohol or drug abuse patient.[facility] HospitalIn the event this information is protected by the Federal Confidentiality of Alcohol and Drug Abuse Patient Records regulations: The Federal rules restrict any use of the information to criminally investigate or prosecute any alcohol or drug abuse patient.[facility] HospitalIn the event this information is protected by the Federal Confidentiality of Alcohol and Drug Abuse Patient Records regulations: The Federal rules restrict any use of the information to criminally investigate or prosecute any alcohol or drug abuse patient.[facility] HospitalIn the event this information is protected by the Federal Confidentiality of Alcohol and Drug Abuse Patient Records regulations: The Federal rules restrict any use of the information to criminally investigate or prosecute any alcohol or drug abuse patient.[facility] HospitalIn the event this information is protected by the Federal Confidentiality of Alcohol and Drug Abuse Patient Records regulations: The Federal rules restrict any use of the information to criminally investigate or prosecute any alcohol or drug abuse patient.[facility] HospitalIn the event this information is protected by the Federal Confidentiality of Alcohol and Drug Abuse Patient Records regulations: The Federal rules restrict any use of the information to criminally investigate or prosecute any alcohol or drug abuse patient.[facility] HospitalIn the event this information is protected by the Federal Confidentiality of Alcohol and Drug Abuse Patient Records regulations: The Federal rules restrict any use of the information to criminally investigate or prosecute any alcohol or drug abuse patient.[facility] HospitalIn the event this information is protected by the Federal Confidentiality of Alcohol and Drug Abuse Patient Records regulations: The Federal rules restrict any use of the information to criminally investigate or prosecute any alcohol or drug abuse patient.[facility] HospitalIn the event this information is protected by the Federal Confidentiality of Alcohol and Drug Abuse Patient Records regulations: The Federal rules restrict any use of the information to criminally investigate or prosecute any alcohol or drug abuse patient.[facility] HospitalIn the event this information is protected by the Federal Confidentiality of Alcohol and Drug Abuse Patient Records regulations: The Federal rules restrict any use of the information to criminally investigate or prosecute any alcohol or drug abuse patient.[facility] HospitalIn the event this information is protected by the Federal Confidentiality of Alcohol and Drug Abuse Patient Records regulations: The Federal rules restrict any use of the information to criminally investigate or prosecute any alcohol or drug abuse patient.[facility] HospitalIn the event this information is protected by the Federal Confidentiality of Alcohol and Drug Abuse Patient Records regulations: The Federal rules restrict any use of the information to criminally investigate or prosecute any alcohol or drug abuse patient.[facility] HospitalIn the event this information is protected by the Federal Confidentiality of Alcohol and Drug Abuse Patient Records regulations: The Federal rules restrict any use of the information to criminally investigate or prosecute any alcohol or drug abuse patient.[facility] HospitalIn the event this information is protected by the Federal Confidentiality of Alcohol and Drug Abuse Patient Records regulations: The Federal rules restrict any use of the information to criminally investigate or prosecute any alcohol or drug abuse patient.[facility] HospitalIn the event this information is protected by the Federal Confidentiality of Alcohol and Drug Abuse Patient Records regulations: The Federal rules restrict any use of the information to criminally investigate or prosecute any alcohol or drug abuse patient.[facility] HospitalIn the event this information is protected by the Federal Confidentiality of Alcohol and Drug Abuse Patient Records regulations: The Federal rules restrict any use of the information to criminally investigate or prosecute any alcohol or drug abuse patient.[facility] HospitalIn the event this information is protected by the Federal Confidentiality of Alcohol and Drug Abuse Patient Records regulations: The Federal rules restrict any use of the information to criminally investigate or prosecute any alcohol or drug abuse patient.[facility] HospitalIn the event this information is protected by the Federal Confidentiality of Alcohol and Drug Abuse Patient Records regulations: The Federal rules restrict any use of the information to criminally investigate or prosecute any alcohol or drug abuse patient.[facility] HospitalIn the event this information is protected by the Federal Confidentiality of Alcohol and Drug Abuse Patient Records regulations: The Federal rules restrict any use of the information to criminally investigate or prosecute any alcohol or drug abuse patient.[facility] HospitalIn the event this information is protected by the Federal Confidentiality of Alcohol and Drug Abuse Patient Records regulations: The Federal rules restrict any use of the information to criminally investigate or prosecute any alcohol or drug abuse patient.[facility] HospitalIn the event this information is protected by the Federal Confidentiality of Alcohol and Drug Abuse Patient Records regulations: The Federal rules restrict any use of the information to criminally investigate or prosecute any alcohol or drug abuse patient.[facility] HospitalIn the event this information is protected by the Federal Confidentiality of Alcohol and Drug Abuse Patient Records regulations: The Federal rules restrict any use of the information to criminally investigate or prosecute any alcohol or drug abuse patient.[facility] HospitalIn the event this information is protected by the Federal Confidentiality of Alcohol and Drug Abuse Patient Records regulations: The Federal rules restrict any use of the information to criminally investigate or prosecute any alcohol or drug abuse patient.[facility] HospitalIn the event this information is protected by the Federal Confidentiality of Alcohol and Drug Abuse Patient Records regulations: The Federal rules restrict any use of the information to criminally investigate or prosecute any alcohol or drug abuse patient.[facility] HospitalIn the event this information is protected by the Federal Confidentiality of Alcohol and Drug Abuse Patient Records regulations: The Federal rules restrict any use of the information to criminally investigate or prosecute any alcohol or drug abuse patient.[facility] HospitalIn the event this information is protected by the Federal Confidentiality of Alcohol and Drug Abuse Patient Records regulations: The Federal rules restrict any use of the information to criminally investigate or prosecute any alcohol or drug abuse patient.[facility] HospitalIn the event this information is protected by the Federal Confidentiality of Alcohol and Drug Abuse Patient Records regulations: The Federal rules restrict any use of the information to criminally investigate or prosecute any alcohol or drug abuse patient.[facility] HospitalIn the event this information is protected by the Federal Confidentiality of Alcohol and Drug Abuse Patient Records regulations: The Federal rules restrict any use of the information to criminally investigate or prosecute any alcohol or drug abuse patient.[facility] HospitalIn the event this information is protected by the Federal Confidentiality of Alcohol and Drug Abuse Patient Records regulations: The Federal rules restrict any use of the information to criminally investigate or prosecute any alcohol or drug abuse patient.[facility] HospitalIn the event this information is protected by the Federal Confidentiality of Alcohol and Drug Abuse Patient Records regulations: The Federal rules restrict any use of the information to criminally investigate or prosecute any alcohol or drug abuse patient.[facility] HospitalIn the event this information is protected by the Federal Confidentiality of Alcohol and Drug Abuse Patient Records regulations: The Federal rules restrict any use of the information to criminally investigate or prosecute any alcohol or drug abuse patient.[facility] HospitalIn the event this information is protected by the Federal Confidentiality of Alcohol and Drug Abuse Patient Records regulations: The Federal rules restrict any use of the information to criminally investigate or prosecute any alcohol or drug abuse patient.[facility] HospitalIn the event this information is protected by the Federal Confidentiality of Alcohol and Drug Abuse Patient Records regulations: The Federal rules restrict any use of the information to criminally investigate or prosecute any alcohol or drug abuse patient.[facility] HospitalIn the event this information is protected by the Federal Confidentiality of Alcohol and Drug Abuse Patient Records regulations: The Federal rules restrict any use of the information to criminally investigate or prosecute any alcohol or drug abuse patient.[facility] HospitalIn the event this information is protected by the Federal Confidentiality of Alcohol and Drug Abuse Patient Records regulations: The Federal rules restrict any use of the information to criminally investigate or prosecute any alcohol or drug abuse patient.[facility] HospitalIn the event this information is protected by the Federal Confidentiality of Alcohol and Drug Abuse Patient Records regulations: The Federal rules restrict any use of the information to criminally investigate or prosecute any alcohol or drug abuse patient.[facility] HospitalIn the event this information is protected by the Federal Confidentiality of Alcohol and Drug Abuse Patient Records regulations: The Federal rules restrict any use of the information to criminally investigate or prosecute any alcohol or drug abuse patient.[facility] HospitalIn the event this information is protected by the Federal Confidentiality of Alcohol and Drug Abuse Patient Records regulations: The Federal rules restrict any use of the information to criminally investigate or prosecute any alcohol or drug abuse patient.[facility] HospitalIn the event this information is protected by the Federal Confidentiality of Alcohol and Drug Abuse Patient Records regulations: The Federal rules restrict any use of the information to criminally investigate or prosecute any alcohol or drug abuse patient.[facility] HospitalIn the event this information is protected by the Federal Confidentiality of Alcohol and Drug Abuse Patient Records regulations: The Federal rules restrict any use of the information to criminally investigate or prosecute any alcohol or drug abuse patient.[facility] HospitalIn the event this information is protected by the Federal Confidentiality of Alcohol and Drug Abuse Patient Records regulations: The Federal rules restrict any use of the information to criminally investigate or prosecute any alcohol or drug abuse patient.[facility] HospitalIn the event this information is protected by the Federal Confidentiality of Alcohol and Drug Abuse Patient Records regulations: The Federal rules restrict any use of the information to criminally investigate or prosecute any alcohol or drug abuse patient.[facility] HospitalIn the event this information is protected by the Federal Confidentiality of Alcohol and Drug Abuse Patient Records regulations: The Federal rules restrict any use of the information to criminally investigate or prosecute any alcohol or drug abuse patient.[facility] HospitalIn the event this information is protected by the Federal Confidentiality of Alcohol and Drug Abuse Patient Records regulations: The Federal rules restrict any use of the information to criminally investigate or prosecute any alcohol or drug abuse patient.[facility] HospitalIn the event this information is protected by the Federal Confidentiality of Alcohol and Drug Abuse Patient Records regulations: The Federal rules restrict any use of the information to criminally investigate or prosecute any alcohol or drug abuse patient.[facility] HospitalIn the event this information is protected by the Federal Confidentiality of Alcohol and Drug Abuse Patient Records regulations: The Federal rules restrict any use of the information to criminally investigate or prosecute any alcohol or drug abuse patient.[facility] HospitalIn the event this information is protected by the Federal Confidentiality of Alcohol and Drug Abuse Patient Records regulations: The Federal rules restrict any use of the information to criminally investigate or prosecute any alcohol or drug abuse patient.[facility] HospitalIn the event this information is protected by the Federal Confidentiality of Alcohol and Drug Abuse Patient Records regulations: The Federal rules restrict any use of the information to criminally investigate or prosecute any alcohol or drug abuse patient.[facility] HospitalIn the event this information is protected by the Federal Confidentiality of Alcohol and Drug Abuse Patient Records regulations: The Federal rules restrict any use of the information to criminally investigate or prosecute any alcohol or drug abuse patient.[facility] HospitalIn the event this information is protected by the Federal Confidentiality of Alcohol and Drug Abuse Patient Records regulations: The Federal rules restrict any use of the information to criminally investigate or prosecute any alcohol or drug abuse patient.[facility] HospitalIn the event this information is protected by the Federal Confidentiality of Alcohol and Drug Abuse Patient Records regulations: The Federal rules restrict any use of the information to criminally investigate or prosecute any alcohol or drug abuse patient.[facility] HospitalIn the event this information is protected by the Federal Confidentiality of Alcohol and Drug Abuse Patient Records regulations: The Federal rules restrict any use of the information to criminally investigate or prosecute any alcohol or drug abuse patient.[facility] HospitalIn the event this information is protected by the Federal Confidentiality of Alcohol and Drug Abuse Patient Records regulations: The Federal rules restrict any use of the information to criminally investigate or prosecute any alcohol or drug abuse patient.[facility] HospitalIn the event this information is protected by the Federal Confidentiality of Alcohol and Drug Abuse Patient Records regulations: The Federal rules restrict any use of the information to criminally investigate or prosecute any alcohol or drug abuse patient.[facility] HospitalIn the event this information is protected by the Federal Confidentiality of Alcohol and Drug Abuse Patient Records regulations: The Federal rules restrict any use of the information to criminally investigate or prosecute any alcohol or drug abuse patient.[facility] HospitalIn the event this information is protected by the Federal Confidentiality of Alcohol and Drug Abuse Patient Records regulations: The Federal rules restrict any use of the information to criminally investigate or prosecute any alcohol or drug abuse patient.[facility] HospitalIn the event this information is protected by the Federal Confidentiality of Alcohol and Drug Abuse Patient Records regulations: The Federal rules restrict any use of the information to criminally investigate or prosecute any alcohol or drug abuse patient.[facility] HospitalIn the event this information is protected by the Federal Confidentiality of Alcohol and Drug Abuse Patient Records regulations: The Federal rules restrict any use of the information to criminally investigate or prosecute any alcohol or drug abuse patient.[facility] HospitalIn the event this information is protected by the Federal Confidentiality of Alcohol and Drug Abuse Patient Records regulations: The Federal rules restrict any use of the information to criminally investigate or prosecute any alcohol or drug abuse patient.[facility] HospitalIn the event this information is protected by the Federal Confidentiality of Alcohol and Drug Abuse Patient Records regulations: The Federal rules restrict any use of the information to criminally investigate or prosecute any alcohol or drug abuse patient.[facility] HospitalIn the event this information is protected by the Federal Confidentiality of Alcohol and Drug Abuse Patient Records regulations: The Federal rules restrict any use of the information to criminally investigate or prosecute any alcohol or drug abuse patient.[facility] HospitalIn the event this information is protected by the Federal Confidentiality of Alcohol and Drug Abuse Patient Records regulations: The Federal rules restrict any use of the information to criminally investigate or prosecute any alcohol or drug abuse patient.[facility] HospitalIn the event this information is protected by the Federal Confidentiality of Alcohol and Drug Abuse Patient Records regulations: The Federal rules restrict any use of the information to criminally investigate or prosecute any alcohol or drug abuse patient.[facility] HospitalIn the event this information is protected by the Federal Confidentiality of Alcohol and Drug Abuse Patient Records regulations: The Federal rules restrict any use of the information to criminally investigate or prosecute any alcohol or drug abuse patient.[facility] HospitalIn the event this information is protected by the Federal Confidentiality of Alcohol and Drug Abuse Patient Records regulations: The Federal rules restrict any use of the information to criminally investigate or prosecute any alcohol or drug abuse patient.[facility] HospitalIn the event this information is protected by the Federal Confidentiality of Alcohol and Drug Abuse Patient Records regulations: The Federal rules restrict any use of the information to criminally investigate or prosecute any alcohol or drug abuse patient.[facility] Reason for Visit (unrecogniz ed section and content) Reason Comments Follow Up Reason Onset Date Comments Refill Request 06/06/2021 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 Reason Comments Orders [facility] [employer] Reason Onset Date Comments Refill Request 06/11/2021 Reason Onset Date Comments Refill Request 07/02/2021 Reason Comments Orders Reason Onset Date Comments Refill Request 07/08/2021 Reason Comments Refill Request Reason Comments multiple problems Reason Comments Follow Up fatigue Reason Onset Date Comments Refill Request 07/25/2021 Reason Onset Date Comments Refill Request 08/06/2021 Reason Onset Date Comments Refill Request 09/05/2021 Reason Onset Date Comments Refill Request 09/20/2021 Reason Onset Date Comments Refill Request 10/04/2021 Reason Onset Date Comments Refill Request 10/11/2021 Reason Comments Established Patient Asthma Reason Comments Medication Problem Reason Onset Date Comments Refill Request 11/28/2021 Reason Comments Refill Request Reason Onset Date Comments Refill Request 12/09/2021 Reason Comments Insurance Authorization Flovent Inhaler Reason Onset Date Comments Refill Request 12/31/2021 Reason Comments Physical Therapy Specialty Diagnoses / Procedures Referred By Omar mixon Referred To Contact [facility] Diagnoses Radicular low back pain Chronic pain of right knee Procedures PT REHAB FOLLOW UP ORDER THERAPEUTIC EXERCISES RE, EA 15 MIN. Сергей Espinoza MD [address] [place] [address] [facility] [address] [place] [id number] Referral ID Status Reason Start Date Expiration Date Visits Requested Visits Authorized [id number] Authorized PCP Requested Referral Auto-Generate d Referral 03/01/2022 8 8 Reason Onset Date Comments Refill Request 01/31/2022 Reason Comments Follow Up Reason Onset Date Comments Refill Request 02/19/2022 Reason Onset Date Comments Refill Request 02/27/2022 Reason Comments Appointment Reason Comments Nurse Triage Call Headache Reason Comments Patient Question Re: Oxygen setting/l evel Reason Comments Shortness of Breath spo2 dropping as low as 78 at home last couple weeks Reason Onset Date Comments Refill Request 03/31/2022 Reason Comments Nurse Triage Call Reason Comments Appointment Reason Onset Date Comments Shingles 04/23/2022 Reason Onset Date Comments Refill Request 04/25/2022 Reason Onset Date Comments Refill Request 04/29/2022 Reason Onset Date Comments Refill Request 05/01/2022 Reason Comments Covid19 Concern Reason Comments Follow Up Reason Comments Insurance Authorization Reason Comments F/U 6 months Reason Comments 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 Reason Onset Date Comments Refill Request 05/26/2022 Reason Onset Date Comments Refill Request 06/11/2022 Reason Onset Date Comments Refill Request 06/12/2022 Reason Onset Date Comments Refill Request 06/25/2022 Specialty Diagnoses / Procedures Referred By Contac t Referred To Contact CT IMAGING Diagnoses Lung nodules Procedures CT CHEST WO IVCON DIAGNOSTIC COMPUTED TOMOGRAPHY THORAX W/O Sona Mayers MD [address] [place] [address] Ct Imaging Referral ID Status Reason Start Date Expiration Date V isits Requested Visits Authorized [id number] Closed Auto-Generate d Referral 07/09/2022 05/11/2023 1 1 Reason Onset Date Comments Refill Request 08/14/2022 Reason Comments DURABLE MEDICAL EQUIPMENT CPAP supplies Reason Onset Date Comments Refill Request 08/23/2022 Reason Comments Follow Up XRay Reason Onset Date Comments Refill Request 10/21/2022 Reason Comments Fatigue Reason Comments Pain New Knee Pain Reason Comments Forms [employer] - oxygen Reason Comments Nurse Triage Call Blood Pressure Reason Onset Date Comments Refill Request 11/19/2022 Reason Comments Increasing S.O.B Reason Comments Patient Question Reason Comments Opened In Error Reason Comments Forms [employer] - cpap Reason Onset Date Comments Refill Request 12/18/2022 Specialty Diagnoses / Procedures Referred By Contac t Referred To Contact CT IMAGING Diagnoses Interstitial pulmonary disease (HCC) Procedures CT CHEST WO IVCON DIAGNOSTIC COMPUTED TOMOGRAPHY THORAX W/O Sona Mayers MD [address] [place] [address] Ct Imaging [place] [id number] Referral ID Status Reason Start Date Expiration Date V isits Requested Visits Authorized [id number] Closed Auto-Generate d Referral 01/28/2022 11/27/2022 1 1 Reason Comments F/U 3 months Reason Comments Patient Update Reason Onset Date Comments Refill Request 02/06/2023 Reason Onset Date Comments Refill Request 02/12/2023 Reason Onset Date Comments Refill Request 02/19/2023 Reason Onset Date Comments Refill Request 04/14/2023 Reason Comments Diarrhea Reason Onset Date Comments Refill Request 04/23/2023 Reason Comments New Patient Room 1NewDr Neris Beck eferral for SOB (Pulm Fibrosis)3L O2 NC via Portable ConcentratorECHO 01/29/23ZIO ordered 01/19/23 but ever appliedEKG 12/16/22 Reason Onset Date Comments Refill Request 05/04/2023 Reason Onset Date Comments Refill Request 05/08/2023 Reason Onset Date Comments Refill Request 05/13/2023 Reason Onset Date Comments Refill Request 05/09/2023 Reason Comments UTI Reason Onset Date Comments Refill Request 06/11/2023 Reason Comments Established Patient Follow-Up Follow upP t reports episodes of "irregular" and "pounding". 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 Reason Onset Date Comments Medication Problem 08/10/2023 Reason Comments Forms [facility] - [facility] Reason Onset Date Comments Refill Request 09/02/2023 Reason Onset Date Comments Refill Request 09/07/2023 Reason Comments return call Reason Comments Radiology CT Specialty Diagnoses / Procedures Referred By Contac t Referred To Contact CT IMAGING Diagnoses Interstitial pulmonary disease (HCC) Procedures CT CHEST WO IVCON DIAGNOSTIC COMPUTED TOMOGRAPHY THORAX W/O CNTRST Snoa Grier MD [address] [place] [address] Ct Imaging [facility] Referral ID Status Reason Start Date Expiration Date Visits Requested Visits Authorized [id number] Authorized Auto-Generat ed Referral 08/25/2023 09/24/2023 2 2 Reason Comments Spirometry Specialty Diagnoses / Procedures Referred By Contac t Ref[facility] Diagnoses Interstitial pulmonary disease (HCC) Procedures LUNG DIFFUSION CAPACITY (DLCO) DIFFUSING CAPACITY Sona Grier MD [address] [place] [address] [facility] [address] [place] [address] Referral ID Status Reason Start Date Expiration Date V isits Requested Visits Authorized [id number] Closed Auto-Generate d Referral 03/24/2023 04/22/2024 1 1 Specialty Diagnoses / Procedures Referred By Contac t Ref[facility] Diagnoses Interstitial pulmonary disease (HCC) Procedures LUNG VOLUMES Sona Grier MD [address] [place] [address] [facility] [address] [place] [address] Referral ID Status Reason Start Date Expiration Date V isits Requested Visits Authorized [id number] Closed Auto-Generate d Referral 07/22/2023 03/01/2024 2 1 Specialty Diagnoses / Procedures Referred By Contac t Referred [facility] Diagnoses Interstitial pulmonary disease (HCC) Procedures SPIROMETRY WITH DILATOR IF OBSTRUCTED BRNCDILAT RSPSE SPMTRY PRE&POST-BRNCDILAT ADMN Sona Grier MD [address] [place] [address] [facility] [address] [place] [id number] Referral ID Status Reason Start Date Expiration Date V isits Requested Visits Authorized [id number] Closed Auto-Generate d Referral 03/24/2023 04/22/2024 1 1 Reason Comments Follow Up Interstitial Pulmona ry Disease Reason Comments Release Of Medical Records [facility] Care Teams (unrecognized sec tion and content) Sidehand Relationship Specialty Start Date End Date Сергей Espinoza MD [address] [place] [address] PCP - General Internal Medicine 01/21/17 Sidehand Relationship Specialty Start Date End Date Сергей Espinoza MD [address] [place] [address] PCP - General Internal Medicine 01/21/17 Sidehand Relationship Specialty Start Date End Date Сергей Espinoza MD [address] [place] [address] PCP - General Internal Medicine 01/21/17 Sidehand Relationship Specialty Start Date End Date Сергей Espinoza MD [address] [place] [address] PCP - General Internal Medicine 01/21/17 Sidehand Relationship Specialty Start Date End Date Сергей Espinoza MD [address] [place] [address] PCP - General Internal Medicine 01/21/17 Sidehand Relationship Specialty Start Date End Date Olga, Сергей Salguero MD [address] [place] [address] PCP - General Internal Medicine 01/21/17 Sidehand Relationship Specialty Start Date End Date Olga, Сергей Salguero MD [address] [place] [address] PCP - General Internal Medicine 01/21/17 Sidehand Relationship Specialty Start Date End Date [place], Сергей Salguero MD [address] [place] [address] PCP - General Internal Medicine 01/21/17 Sidehand Relationship Specialty Start Date End Date [place], Сергей Salguero MD [address] [place] [address] PCP - General Internal Medicine 01/21/17 Sidehand Relationship Specialty Start Date End Date Olga, Сергей Salguero MD [address] [place] [address] PCP - General Internal Medicine 01/21/17 Sidehand Relationship Specialty Start Date End Date [place], Сергей Salguero MD [address] [place] [address] PCP - General Internal Medicine 01/21/17 Sidehand Relationship Specialty Start Date End Date Olga, Сергей Salguero MD [address] [place] [address] PCP - General Internal Medicine 01/21/17 Sidehand Relationship Specialty Start Date End Date [place], Сергей Salguero MD [address] [place] [address] PCP - General Internal Medicine 01/21/17 Sidehand Relationship Specialty Start Date End Date Olga, Сергей Salguero MD [address] [place] [address] PCP - General Internal Medicine 01/21/17 Sidehand Relationship Specialty Start Date End Date [place], Сергей Salguero MD [address] [place] [address] PCP - General Internal Medicine 01/21/17 Sidehand Relationship Specialty Start Date End Date [place], Сергей Salguero MD [address] [place] [address] PCP - General Internal Medicine 01/21/17 Sidehand Relationship Specialty Start Date End Date [place], Сергей Salguero MD [address] [place] [address] PCP - General Internal Medicine 01/21/17 Sidehand Relationship Specialty Start Date End Date [place], Сергей Salguero MD [address] [place] [address] PCP - General Internal Medicine 01/21/17 Sidehand Relationship Specialty Start Date End Date Olga, Сергей Salguero MD [address] [place] [address] PCP - General Internal Medicine 01/21/17 Sidehand Relationship Specialty Start Date End Date [place], Сергей Salguero MD [address] [place] [address] PCP - General Internal Medicine 01/21/17 Sidehand Relationship Specialty Start Date End Date [place], Сергей Salguero MD [address] [place] [address] PCP - General Internal Medicine 01/21/17 Sidehand Relationship Specialty Start Date End Date [place], Сергей Salguero MD [address] [place] [address] PCP - General Internal Medicine 01/21/17 Sidehand Relationship Specialty Start Date End Date PearlandСергей louis MD [address] [place] [address] PCP - General Internal Medicine 01/21/17 Sidehand Relationship Specialty Start Date End Date OlgaСергей louis MD [facility] [place] [address] PCP - General Internal Medicine 01/21/17 Sidehand Relationship Specialty Start Date End Date OlgaСергей louis MD [address] [place] [address] PCP - General Internal Medicine 01/21/17 Sidehand Relationship Specialty Start Date End Date PearlandСергей louis MD [address] [place] [address] PCP - General Internal Medicine 01/21/17 Sidehand Relationship Specialty Start Date End Date Сергей Espinoza MD [address] [place] [address] PCP - General Internal Medicine 01/21/17 Sidehand Relationship Specialty Start Date End Date Сергей Espinoza MD [address] [place] [address] PCP - General Internal Medicine 01/21/17 Sidehand Relationship Specialty Start Date End Date Сергей Espinoza MD [address] [place] [address] PCP - General Internal Medicine 01/21/17 Sidehand Relationship Specialty Start Date End Date Сергей Espinoza MD [address] [place] [address], [place] [address] PCP - General Internal Medicine 01/21/17 Sidehand Relationship Specialty Start Date End Date Olga, Сергей Salguero MD [address] [place] [address] PCP - General Internal Medicine 01/21/17 Sidehand Relationship Specialty Start Date End Date Olga, Сергей Salguero MD [address] [place] [address] PCP - General Internal Medicine 01/21/17 Sidehand Relationship Specialty Start Date End Date Olga, Сергей Salguero MD [address] [place] [address] PCP - General Internal Medicine 01/21/17 Sidehand Relationship Specialty Start Date End Date Olga, Сергей Salguero MD [address] [place] [address] PCP - General Internal Medicine 01/21/17 Sidehand Relationship Specialty Start Date End Date Olga, Сергей Salguero MD [address] [place] [address] PCP - General Internal Medicine 01/21/17 Sidehand Relationship Specialty Start Date End Date Olga, Сергей Salguero MD [address] [place] [address] PCP - General Internal Medicine 01/21/17 Sidehand Relationship Specialty Start Date End Date [place], Сергей Salguero MD [address] [place] [address] PCP - General Internal Medicine 01/21/17 Sidehand Relationship Specialty Start Date End Date [place], Сергей Salguero MD [address] [place] [address] PCP - General Internal Medicine 01/21/17 Sidehand Relationship Specialty Start Date End Date Olga, Сергей Salguero MD [address] [place] [address] PCP - General Internal Medicine 01/21/17 Sidehand Relationship Specialty Start Date End Date [place], Сергей Salguero MD [address] [place] [address] PCP - General Internal Medicine 01/21/17 Sidehand Relationship Specialty Start Date End Date [place], Сергей Salguero MD [address] [place] [address] PCP - General Internal Medicine 01/21/17 Sidehand Relationship Specialty Start Date End Date [place], Сергей Salguero MD [address] [place] [address] PCP - General Internal Medicine 01/21/17 Sidehand Relationship Specialty Start Date End Date [place], Сергей Salguero MD [address] [place] [address] PCP - General Internal Medicine 01/21/17 Sidehand Relationship Specialty Start Date End Date [place], Сергей Salguero MD [address] [place] [address] PCP - General Internal Medicine 01/21/17 Sidehand Relationship Specialty Start Date End Date [place], Сергей Salguero MD [address] [place] [address] PCP - General Internal Medicine 01/21/17 Sidehand Relationship Specialty Start Date End Date [place], Сергей Salguero MD [address] [place] [address] PCP - General Internal Medicine 01/21/17 Sidehand Relationship Specialty Start Date End Date Olga, Сергей Salguero MD [address] [place] [address] PCP - General Internal Medicine 01/21/17 Sidehand Relationship Specialty Start Date End Date [place], Сергей Salguero MD [address] [place] [address] PCP - General Internal Medicine 01/21/17 Sidehand Relationship Specialty Start Date End Date Olga, Сергей Salguero MD [address] [place] [address] PCP - General Internal Medicine 01/21/17 Sidehand Relationship Specialty Start Date End Date [place], Сергей Salguero MD [address] [place] [address] PCP - General Internal Medicine 01/21/17 Sidehand Relationship Specialty Start Date End Date [place], Сергей Salguero MD [address] [place] [address] PCP - General Internal Medicine 01/21/17 Sidehand Relationship Specialty Start Date End Date [place], Сергей Salguero MD [address] [place] [address] PCP - General Internal Medicine 01/21/17 Sidehand Relationship Specialty Start Date End Date [place], Сергей Salguero MD [address] [place] [address] PCP - General Internal Medicine 01/21/17 Sidehand Relationship Specialty Start Date End Date Pearland, Сергей Salguero MD [address] [place] [address] PCP - General Internal Medicine 01/21/17 Sidehand Relationship Specialty Start Date End Date [place], Сергей Salguero MD [facility] [place] [address] PCP - General Internal Medicine 01/21/17 Sidehand Relationship Specialty Start Date End Date [place], Сергей Salguero MD [address] [place] [address] PCP - General Internal Medicine 01/21/17 Sidehand Relationship Specialty Start Date End Date Olga, Сергей Salguero MD [address] [place] [address] PCP - General Internal Medicine 01/21/17 Sidehand Relationship Specialty Start Date End Date [place], Сергей Salguero MD [address] [place] [address] PCP - General Internal Medicine 01/21/17 Sidehand Relationship Specialty Start Date End Date [place], Сергей Salguero MD [address] [place] [address] PCP - General Internal Medicine 01/21/17 Sidehand Relationship Specialty Start Date End Date [place], Сергей Salguero MD [address] [place] [address] PCP - General Internal Medicine 01/21/17 Sidehand Relationship Specialty Start Date End Date PearlandСергей louis MD [address] [place] [address] PCP - General Internal Medicine 01/21/17 Sidehand Relationship Specialty Start Date End Date OlgaСергей louis MD [address] [place] [address] PCP - General Internal Medicine 01/21/17 Brayden Friend MD [address] [address] [place] Referring Team Anesthesiology 07/16/23 Sidehand Relationship Specialty Start Date End Date OlgaСергей MD [address] [place] [address] PCP - General Internal Medicine 01/21/17 Brayden Friend MD [address] [address] [place] Referring Team Anesthesiology 07/16/23 Sidehand Relationship Specialty Start Date End Date PearlandСергей MD [address] [place] [address] PCP - General Internal Medicine 01/21/17 Brayden Friend MD [address] [address] [place] Referring Team Anesthesiology 07/16/23 Sidehand Relationship Specialty Start Date End Date OlgaСергей louis MD [address] [place] [address] PCP - General Internal Medicine 01/21/17 Brayden Friend MD [address] [address] [place] Referring Team Anesthesiology 07/16/23 Sidehand Relationship Specialty Start Date End Date [place], Сергей Salguero MD [address] [place] [address] PCP - General Internal Medicine 01/21/17 Brayden Friend MD [address] [address] [place] Referring Team Anesthesiology 07/16/23 Sidehand Relationship Specialty Start Date End Date Olga, Сергей Salguero MD [address] [place] [address] PCP - General Internal Medicine 01/21/17 Brayden Friend MD [address] [address] [place] Referring Team Anesthesiology 07/16/23 Sidehand Relationship Specialty Start Date End Date [place], Сергей Salguero MD [address] [place] [address] PCP - General Internal Medicine 01/21/17 Brayden Friend MD [address] [address] [place] Referring Team Anesthesiology 07/16/23 Sidehand Relationship Specialty Start Date End Date PearlandСергей MD [address] [place] [address] PCP - General Internal Medicine 01/21/17 Brayden Friend MD [address] [address] [place] Referring Team Anesthesiology 07/16/23 Sidehand Relationship Specialty Start Date End Date Сергей Espinoza MD [address] [place] [address] PCP - General Internal Medicine 01/21/17 Brayden Friend MD [address] [address] [place] Referring Team Anesthesiology 07/16/23 Sidehand Relationship Specialty Start Date End Date Сергей Espinoza MD [address] [place] [address] PCP - General Internal Medicine 01/21/17 Sidehand Relationship Specialty Start Date End Date Сергей Espinoza MD [address] [place] [address] PCP - General Internal Medicine 01/21/17 Sidehand Relationship Specialty Start Date End Date Сергей Espinoza MD [address] [place] [address] PCP - General Internal Medicine 01/21/17 Brayden Friend MD [address] [place] [address] [place] Referring Team Anesthesiology 07/16/23 Team Status: Active Member Role Status Dates Dr. Weston Bowers MD Family Provider Active Dr. Сергей Espinoza MD Primary Care Provider Active Team Status: Inactive Member Role Status Dates Dr. Сергей Espinoza MD Primary Care Provider Active Start: March 04, 2024 End: March 04, 2024 Stacie Chen SUPER[employer], [employer]-C Attending Provider Active Start: March 04, 2024 End: March 04, 2024 Team Status: Inactive Member Role Status Dates Dr. Сергей Espinoza MD Primary Care Provider Active Start: April 05, 2024 End: April 05, 2024 Dr. Anais Osullivan MD Attending Provider Active Start: April 05, 2024 End: April 05, 2024 Team Status: Active Member Role Status Dates Dr. Сергей Espinoza MD Primary Care Provider Active Start: April 07, 2024 Anais DELGADO MD Attending Provider Active Start: April 07, 2024 Team Status: Active Member Role Status Dates Dr. Сергей Espinoza MD Primary Care Provider Active Start: April 19, 2024 Anais DELGADO MD Attending Provider Active Start: April 19, 2024 Team Status: Inactive Member Role Status Dates Dr. Сергей Espinoza MD Primary Care Provider Active Start: April 21, 2024 End: April 21, 2024 Stacie Chen NP [employer]-C Attending Provider Active Start: April 21, 2024 End: April 21, 2024 Team Status: Active Member Role Status Dates Dr. Сергей Espinoza MD Primary Care Provider Active Start: April 23, 2024 Anais DELGADO MD Attending Provider Active Start: April 23, 2024 Team Status: Inactive Member Role Status Dates Dr. Сергей Espinoza MD Primary Care Provider Active Start: May 11, 2024 End: May 11, 2024 Stacie Chen NP [employer]-C Attending Provider Active Start: May 11, 2024 End: May 11, 2024 Team Status: Inactive Member Role Status Dates Dr. Сергей Espinoza MD Primary Care Provider Active Start: May 17, 2024 End: May 17, 2024 Stacie DELGADO [employer]PER[employer]-C Attending Provider Active Start: May 17, 2024 End: May 17, 2024 Team Status: Inactive Member Role Status Dates Dr. Сергей Espinoza MD Primary Care Provider Active Start: May 31, 2024 End: May 31, 2024 Dr. Anais Osullivan MD Attending Provider Active Start: May 31, 2024 End: May 31, 2024 Team Status: Inactive Member Role Status Dates Dr. Сергей Espinoza MD Primary Care Provider Active Start: July 19, 2024 End: July 19, 2024 Anais DELGADO MD Attending Provider Active Start: July 19, 2024 End: July 19, 2024 Goals (unrecognized section and content) Goals may be documented in a n alternate sectionGoals may be documented in an alternate section FOR RECORDS PERTAINING TO PATIENTS WHO ARE OR HAVE BEEN ENROLLED IN A CHEMICAL DEPENDENCY/SUBSTANCEABUSE PROGRAM, SOME INFORMATION MAY BE OMITTED. This clinical summary was aggregated from multiple sources. Caution should be exercised in using it in the provision of clinical care. This summary normalizes information from multiple sources, and as a consequence, information in this document may materially change the coding, format and clinical context of patient data. In addition, data may be omitted in some cases. CLINICAL DECISIONS SHOULD BE BASED ON THE PRIMARY CLINICAL RECORDS. [facility]. provides no warranty or guarantee of the accuracy or completeness of information in this document.
[2024-09-13 07:07] LABS: Hematocrit 27.4 % (37-47); Hemoglobin 8.5 g/dL (12.0-15.0); Immature Granulocytes Count 0.010 X10^3/uL (0.0-0.0); Mean Corp Hgb Conc 31.0 g/dL (32-36); Mean Corpuscular Volume 101.9 fL (81-99); Mean Platelet Vol. 9.4 fl (6.2-12.0); NRBC Flagged by Analyzer 0 % (0-5); Platelet Count 210 K/mm3 (150-450); RBC Distribution Width CV 12.8 % (11.6-14.6); RBC Distribution Width SD 47.5 fl (35.1-43.9); Red Blood Count 2.69 M/mm3 (4.2-5.4); White Blood Count 6.6 K/mm3 (4.4-11.0)
[2024-09-13 07:26] LABS: Anion Gap 7 (5-15); BUN 10 mg/dL (4-19); BUN/Creat Ratio 17.9 RATIO (10-20); Calcium,Total 8.9 mg/dL (7.6-11.0); Carbon Dioxide 31.9 mmol/L (21.0-32.0); Chloride 102 mmol/L (98-108); Glucose 94 mg/dL (70-99); Potassium 4.2 mmol/L (3.3-5.1)
== END ==
LOC: OLS.WHLEAS 05:03
PROVIDERS: PCP Internal Medicine; Referring Provider Nurse Practitioner Adult Health; Visit Provider Nurse Practitioner Adult Health
DX: I10 Essential (primary) hypertension (principal)
CPT/HCPCS: 36415; 80048; 85025

== ENCOUNTER → 2024-09-14 05:35 | Outpatient (REF) | payer MEDICARE, MEDICAID, SELFPAY ==
[2024-09-14 07:57] LABS: Ferritin 71 ng/mL (22-378); Iron 48 ug/dL (50-170); Iron Binding Capacity,Unsat 164 ug/dL (228-428)
[2024-09-14 09:05] LABS: Iron Binding Capacity,Total 212 ug/dL (250-450)
[2024-09-15 05:07] LABS: Transferrin 172 mg/dL (149-313)
== END ==
LOC: OLS.WHLEAS 05:35
PROVIDERS: PCP Internal Medicine; Visit Provider Internal Medicine
DX: D50.9 Iron deficiency anemia, unspecified (principal)
CPT/HCPCS: 36415; 82728; 83540; 83550; 84466

== ENCOUNTER → 2024-10-03 | Outpatient (REF) | payer MEDICARE, MEDICAID, SELFPAY ==
[2024-10-03 14:18] LABS: Color, Urine Yellow (Yellow); Glucose, Dipstick Normal (Normal); Ketone-Dipstick Negative (Negative); Leukocyte Esterase-Dipstick 500 /ul (Negative); Nitrite-Dipstick Negative (Negative); Occult Blood-Urine 50 /ul (Negative); Protein-Dipstick 30 mg/dl (Negative); Specific Gravity, Urine 1.010 (1.002-1.030); Urine Bilirubin Dipstick Negative (Negative)
== END ==
LOC: OLS.WHLEAS 12:00
PROVIDERS: PCP Internal Medicine; Visit Provider Nurse Practitioner Adult Health
DX: N39.0 Urinary tract infection, site not specified (principal)
CPT/HCPCS: 81002; 87077; 87086; 87088; 87186

== ENCOUNTER → 2024-10-06 04:00 | Outpatient (REF) | payer MEDICARE, MEDICAID, SELFPAY ==
--- OUTSIDE RECORDS SUMMARY | 2024-10-06 04:27 | XMS RPT_ITS | CCD ---
Author Organization [facility] Care Team Providers Care Planning Intern Name Role Phone Olga Сергей BAILEY Primary Care Provider [phone] UNKNOWN, UNKNOWN Primary Care Unavailable Clutter, Tommy Referring Unavailable Cltom, Tommy Attending Unavailable Unknown, Unknown Unavailable Unavailable Unavailable Unavailable Сергей Espinoza MD Primary Care Provider [phone] OLGA, СЕРГЕЙ A Referring Unavailable OLGA, СЕРГЕЙ [...] Care Unavailable NERIS, NARIMAN A Referring Unavailable [place] Сергей BAILEY Primary Care Provider [phone] Brayden Friend MD Unavailable OLGA, СЕРГЕЙ A [...] Unavailable OLGA, СЕРГЕЙ A Primary Care Unavailable [place] , Dr. Rushing Primary Care Provider Gustavo RING SPINNER-C, Stacie Attending Provider Shi BAILEY, Dr. Manzo Attending Provider Anais Osullivan MD Attending Provider Unavaila jas Chen RING SPINNER-C, Stacie Attending Provider Olga BAILEY, Dr. Rushing Primary Care Provider Gustavo RING SPINNER-C, Stacie Attending Provider Olga BAILEY, Dr. Rushing Primary Care Provider Shi BAILEY, Dr. Manzo Attending Provider Tj Rosado Attending Provider Anais Osullivan MD Attending Provider Unavaila ble Gustavo RING SPINNER-C, Stacie Attending Provider Olga BAILEY, Dr. Rushing Primary Care Provider Gustavo RING SPINNER-C, Stacie Attending Provider Stacie Chen Attending Unavailable Olga, Сергей Primary Care Unavailable [place], Сергей Primary Care Unavailable Stacie Chen Attending Unavailable Anais Osullivan Attending Unavailable Olga, Сергей Primary Care Unavailable Olga, Сергей Primary Care Unavailable Stacie Chen Attending Unavailable Anais Osullivan Attending Unavailable Olga, Сергей Primary Care Unavailable [place], Сергей Primary Care Unavailable Oleghe, Efewongbe Attending Unavailable [place], Сергей Primary Care Unavailable [place] OLS, Stacie Attending Unavailable [place] OLS, Stacie Referring Unavailable [place] OLS, Stacie Attending Unavailable [place], Сергей Primary Care Unavailable Oleghe, Efewongbe Attending Unavailable Olga, Сергей Primary Care Unavailable Olga, Сергей Primary Care Unavailable Oleghe, Efewongbe Attending Unavailable Olga, Сергей Primary Care Unavailable Tickton, Stacie Attending Unavailable [place], Сергей Primary Care Unavailable Oleghe, Efewongbe Attending Unavailable Olga, Сергей Primary Care Unavailable Tickton, Stacie Attending Unavailable [place], Сергей Primary Care Unavailable [place]ton, Stacie Attending Unavailable Olga, Сергей Primary Care Unavailable Tj Rosado Attending Unavailable Olga, Сергей Primary Care Unavailable Tickton, Stacie Attending Unavailable Oleghe, Efewongbe Attending Unavailable [place], Сергей Primary Care Unavailable [place], Сергей Primary Care Unavailable Jose Raul Page Attending Unavailabl e Oleghe, Efewongbe Attending Unavailable Olga, Сергей Primary Care Unavailable Oleghe, Efewongbe Attending Unavailable [place], Сергей Primary Care Unavailable Oleghe, Efewongbe Attending Unavailable Olga, Сергей Primary Care Unavailable [place], Сергей Primary Care Unavailable [place] OLS, Stacie Attending Unavailable [place], Сергей Primary Care Unavailable Oleghe, Efewongbe Attending Unavailable Olga, Сергей Primary Care Unavailable Tickton, Stacie Attending Unavailable T[place]ton, Stacie Attending Unavailable Olga, Сергей Primary Care Unavailable [place], Сергей Primary Care Unavailable Oleghe, Efewongbe Attending Unavailable Allergies Allergy Classification Reported Allergen(s) Allergy Type Date of Onset Reaction(s) Facility Angiotensin Converting Enzyme (JOYCE) Inhibitors (1 source) Lisinopril Drug Allergy 1 GI Upset [facility] Aspirin (1 source) Aspirin Drug Allergy 1 [facility] Doxycycline (1 source) Doxycycline Drug Allergy 3 GI Upset [facility] Work Phone: montelukast (1 source) montelukast Drug Allergy 8 Rash [facility] Work Phone: NSAIDs (1 source) Ibuprofen Drug Allergy 1 [facility] Penicillins (antibiotic) (1 source) Amoxicillin Drug Allergy 3 Intolerance [facility] rofecoxib (1 source) rofecoxib Drug Allergy 3 Itching [facility] Serotonin Reuptake Inhibitors (SSRIs) (1 source) Sertraline Drug Allergy 3 Diarrhea [facility] Sulfonamides (antibiotic) (1 source) Sulfonamides (Antibiotic) Drug Allergy 1 [facility] (20 sources) Aspirin; Translations: [Aspirin TABS] Drug Allergy 1 Tachycardia, PALPITATIONS [facility] (20 sources) Ibuprofen; Translations: [IBUPROFEN] Drug Allergy 1 Swelling [facility] (20 sources) Lisinopril; Translations: [LISINOPRIL] Drug Allergy 1 GI Upset [facility] (20 sources) montelukast; Translations: [MONTELUKAST SODIUM] Drug Allergy 8 Rash [facility] Work Phone: (20 sources) rofecoxib; Translations: [ROFECOXIB] Drug Allergy 3 Itching [facility] (20 sources) Seasonal allergy; Translations: [SEASONAL ALLERGIES] Allergy to substance 1 Other: See Comments, Intolerance [facility] (20 sources) Sulfonamides (Antibiotic); Translations: [SULFA (SULFONAMIDE ANTIBIOTICS)] Propensity to adverse reactions 1 [facility] (20 sources) Doxycycline; Translations: [DOXYCYCLINE] Drug Allergy 3 GI Upset [facility] Work Phone: (20 sources) Amoxicillin; Translations: [AMOXICILLIN] Drug Allergy 3 Other: See Comments, Intolerance [facility] (20 sources) Sertraline; Translations: [SERTRALINE] Drug Allergy 3 Diarrhea [facility] (6 sources) montelukast Drug Allergy 3 Rash [facility] (6 sources) Sulfonamides (Antibiotic) Allergy to substance 3 Rash [facility] (1 source) Amoxicillin Drug Allergy 3 [facility] Repository (1 source) Aspirin Drug Allergy 3 [facility] Repository (1 source) Doxycycline Drug Allergy 3 [facility] Repository (1 source) Ibuprofen Drug Allergy 3 [facility] Repository (1 source) Lisinopril Drug Allergy 3 [facility] Repository (1 source) montelukast Drug Allergy 3 [facility] Repository (1 source) rofecoxib Drug Allergy 3 [facility] Repository (1 source) Sertraline Drug Allergy 3 [facility] Repository (1 source) Sulfonamides (Antibiotic) Drug allergy (disorder) 3 [facility] Repository Medications Current Medications Medication Drug Class(es) Dates Sig (Normalized) Sig (Original) Acetaminophen / Caffeine (20 sources) Central Nervous System Stimulant, Methylxanthine acetaminophen/caff eine (EXCEDRIN ASPIRIN FREE ORAL) Take 2 tablets by mouth as needed. Active acetaminophen/ca ffeine (EXCEDRIN ASPIRIN FREE ORAL) Take 2 tablets by mouth as needed. 0 Active Comment on above: Take 2 tablets by mo [facility] as needed. azithromycin 250 mg oral tablet (10 sources) [...] on above: Take 2 tablets by mo [facility] once daily for 1 day, THEN 1 tablet once daily for 4 days. cloNIDine hydrochloride 0.1 mg oral tablet (20 sources) Central alpha-2 Adrenergic Agonist Start: 03-25-2023 cloNIDine HCl (CATAPRES) 0.1 mg tablet take 1 tablet twice daily 180 tablet 3 03/25/2023 Active Start: 01-14-2023 [facility] Clonidine Hcl 0.1 mg tablet Active 0.1 mg PO THREE TIMES A DAY January 21, 2023 1:00am HTN Start: 08-22-2022 End: 01-14-2023 take 1 tablet by mouth twice daily cloNIDine HCl (CATAPRES) 0.1 mg tablet Take 1 tablet by mouth twice daily. 180 tablet 1 09/29/2022 01/14/2023 Discontinued Comment on above: Take 1 tablet by [facility] twice daily. Take 1 tablet by [facility] three times a day. take 1 tablet [...] (FLONASE) 50 mcg/actuation nasal spray Use 1 [place] in each nostril once daily. 48 g 3 07/09/2023 Active Start: 05-12-2023 End: 08-10-2023 take 1 puff(s) by inhalation once daily fluticasone furoate (ARNUITY ELLIPTA) 100 mcg/actuation inhaler Inhale 1 Puff as instructed once daily. 3 Each 4 05/12/2023 07/14/2023 Discontinued Start: 05-12-2023 End: 07-09-2023 take 1 spray(s) nasal route once daily fluticasone (FLONASE) 50 mcg/actuation nasal spray Use 1 [place] in each nostril once daily. 1 Each [...] (FLONASE) 50 mcg/actuation nasal spray Use 1 [place] in each nostril two times a day. 1 Each 5 01/19/2023 04/23/2023 Discontinued Start: 05-05-2022 End: 03-07-2023 [...] twice daily. Inhale by Mouth 1 Each 11 12/09/2021 03/31/2022 Discontinued Start: 04-04-2020 End: 09-30-2021 take 1 spray(s) nasal route once daily at bedtime fluticasone (FLONASE) 50 mcg/actuation nasal spray Use 1 [place] in each nostril daily at bedtime. 3 [...] 0 Active Comment on above: Use 1 [place] in each nostril daily at bedtime. Inhale 2 Puffs as in structed twice daily. Inhale by Mouth Inhale 1 Puff as ins tructed twice daily. Shake well before use. Rinse mouth after use. Use in the nose as n eeded (Pt uses 1 spray each nostril once a day as needed.). Use 1 [place] in each nostril two times a day. Inhale 1 Puff as ins tructed two times a day. Shake well before use. Rinse mouth after use. Inhale 1 Puff as ins tructed once daily. Use 1 [place] in each nostril once daily. Fluticasone Propionate (Flovent Hfa) 110 mcg/actuation HFA aerosol inhaler (6 sources) Start: 3 Fluticasone Propionate (Flovent Hfa) 110 mcg/actuation HFA aerosol inhaler Active 1 [facility] INHALATION Q12H January 21, 2023 1:00am gabapentin 100 mg oral capsule (20 sources) Anti-epileptic Agent Start: take 1 capsule by mouth four times [...] above: Take 1 capsule by mo uth three times daily for 30 days. Take 1 capsule by mo uth three times daily for 180 days. Take 2 capsules by m outh three times daily for 180 days. Inhalational [...] mg oral tablet (20 sources) l-Thyroxine Start: 024 End: take 0.5 tablet by mouth once [...] sources) Nonsteroidal Anti-inflammatory Drug Start: 023 End: take 1 tablet by mouth once daily meloxicam (MOBIC) 7.5 mg tablet Indications: Primary osteoarthritis of right hip Take 1 tablet by mouth once daily. 30 tablet 0 06/11/2022 07/11/2022 Active Comment on above: Take 1 tablet by wanda once daily. Take 1 tablet by wanda th once daily nortriptyline 75 mg oral capsule (20 sources) Tricyclic Antidepressant Start: 021 End: take 1 capsule by mouth once daily at bedtime nortriptyline (PAMELOR) 75 mg capsule Take 1 capsule by mouth daily at bedtime. 90 capsule 3 07/17/2023 Active Nortriptyline HC l - 50 MG Oral Capsule Quantity: 0 Refills: 0 Ordered: 09-Dec-2015 DO Active Comment on above: Take 1 capsule by mo [facility] daily at bedtime. TAKE 1 CAPSULE AT [...] mg oral tablet (20 sources) Pyridone Start: End: take 1 tablet by mouth three times daily pirfenidone (ESBRIET) 801 mg tablet Indications: Idiopathic pulmonary fibrosis (HCC) Take 1 tablet by mouth three times a day. 90 tablet 11 09/02/2023 Active Start: 01-21-2023 take 1 capsule by mo mth three times daily Pirfenidone (Pirfenidone 267 Mg [...] times daily. TAKE 3 CAPSULES BY M OUT THREE TIMES A DAY WITH MEALS Take 1 tablet by wanda th three times daily. TAKE 1 TABLET BY WANDA TH 3 TIMES A DAY Take 1 tablet by wanda th three times a day. pravastatin sodium 40 mg oral tablet (20 sources) HMG-CoA Reductase Inhibitor Start: 021 End: pravastatin (PRAVACHOL) 40 mg tablet take 1 tablet at bedtime 90 tablet 3 06/24/2023 Active Comment on above: Take 1 tablet by wanda th daily at bedtime. promethazine hydrochloride 12.5 mg oral tablet (20 sources) Phenothiazine Start: 020 take 1 tablet by mouth every six hours as needed for headache promethazine (PHENERGAN) 12.5 mg tablet Indications: Other migraine without status migrainosus, not intractable Take 1 tablet by mouth every 6 hours as needed (Headache). 10 tablet 10/03/2019 Active Comment on above: Take 1 tablet by wanda th every 6 hours as needed (Headache). SUMAtriptan 100 mg oral tablet (20 sources) Serotonin-1b and Serotonin-1d Receptor Agonist Start: End: take 1 tablet by mouth every [...] mg/ml topical cream (20 sources) Corticosteroid Start: 024 End: triamcinolone acetonide (KENALOG) 0.5 % cream [...] 07/19/2020 06/06/2021 Discontinued take 1 capsule by [facility] every twenty-four hours Verapamil HCl ER 180 [...] DAYS. Quantity: 50 Refills: 0 Ordered: 20-Apr-2022 Umer WILSON, Tommy Start : 20-Apr-2022 Active [id number] 200 actuat albuterol 0.09 mg/actuat metered dose [...] in structed every 4 hours as needed. ALPRAZolam 1 mg oral tablet (20 sources) Benzodiazepine Start: 08-02-19 End: 08-30-19 take 1 tablet by mouth three times daily Alprazolam 1 mg tablet Discontinued 1 mg PO THREE TIMES A DAY 90 30 0 August 23, 2024 6:33am September 21, 2024 12:00am August 29, 2024 11:15pm Start: 05-02-2024 End: 07-27-2024 take 1 tablet by mouth three times daily Alprazolam 1 mg tablet Discontinued 1 mg PO THREE TIMES A DAY 90 30 0 June 27, 2024 3:39pm July 26, 2024 12:00am July 27, 2024 12:06am anxiety Start: 08-25-2022 End: 04-30-2024 take 1 tablet by mouth three times daily Alprazolam 1 mg tablet Discontinued 1 mg PO THREE TIMES A DAY 90 30 0 March 31, 2024 4:28pm April 29, 2024 1:00am April 30, 2024 1:23am anxiety Start: 12-31-2021 End: 08-23-2022 take 1 tablet [...] 27, 2022. Take 1 tablet by wanda th three times daily as needed for sedation or anxiety for up to 30 days. Do not start before September 24, 2022. Take 1 tablet by wanda th three times daily as needed for sedation or anxiety for up to 30 days. Do not start before November 20, 2022. Take 1 tablet by wanda th three times a day as needed for [...] Do not start before April 16, 2023. amoxicillin 125 mg chewable tablet (20 sources) Penicillin-class Antibacterial amoxicillin, chewable (AMOXIL) 125 mg chewable tablet Take by mouth three times daily. 0 Active Comment on above: Take by mouth three times daily. breath-actuated 120 actuat beclomethasone dipropionate 0.08 mg/actuat metered dose inhaler (20 sources) Corticosteroid Start: End: take 2 puff(s) by inhalation twice daily beclomethasone (QVAR REDIHALER) 80 mcg/actuation inhaler Inhale 2 Puffs as instructed twice daily. 1 Each 1 11/14/2021 03/31/2022 Discontinued Comment on above: Inhale 2 Puffs as in structed twice daily. benzonatate 100 mg oral capsule (1 source) Non-narcotic Antitussive Start: 021 End: take 1 capsule by mouth three times daily as needed for cough benzonatate (TESSALON PERLES) 100 mg capsule Indications: cough Take 1 capsule by mouth three times daily as needed for cough for up to 30 doses. 20 capsule 0 12/26/2020 05/30/2021 Discontinued Comment on above: Take 1 capsule by mo [facility] three times daily as needed for cough for up to 30 doses. betamethasone 1 mg/ml topical cream (20 sources) Corticosteroid Start: 023 End: Betamethasone Valerate 0.1 % cream Discontinued 1 [facility] TOPICAL Q12H January 21, 2023 1:00am November 30, 2023 7:45pm PSORIASIS Start: 01-19-2023 End: 04-23-2023 betamethasone valerate 0.1 [...] Take 1 tablet by wanda once daily. cephalexin 500 mg oral capsule (6 sources) Cephalosporin Antibacterial Start: 01-10-20 End: 01-22-20 take 1 capsule by mouth twice daily Cephalexin 500 mg capsule Discontinued 500 mg PO TWICE A DAY 10 0 January 09, 2023 1:00am January 21, 2023 [...] Start: 06-12-2016 take 1 tablet by wanda once daily Doxycycline Hyclate 100 MG Oral Tablet TAKE 1 TABLET EVERY 12 HOURS DAILY. Quantity: 20 Refills: 0 Ordered: 12-Jun-2016 Zurdo Puentes MD Start : 12-Jun-2016 Active Comment on above: Take 1 capsule by mo [facility] twice daily. escitalopram 5 mg oral tablet [...] Discontinued Start: 06-12-2016 take 2 tablets by [facility] once daily predniSONE 20 MG Oral Tablet [...] x 3 days Take 2 tablets by [facility] once daily for 7 days. Take 4 tablets by [facility] once daily for 3 days, THEN [...] Comment on above: Take 1 capsule by [facility] two times a day for 30 days. sertraline 25 mg oral tablet (1 source) Serotonin Reuptake Inhibitor Start: 3 End: 3 take 1 tablet by mouth once daily sertraline (ZOLOFT) 25 mg tablet Indications: Anxiety Take 1 tablet by mouth once daily. 90 tablet 0 11/12/2022 11/17/2022 Discontinued (Side Effects) Comment on above: Take 1 tablet by [facility] once daily. simvastatin 40 mg oral [...] Complications of surgical procedures or medical care (6 sources) Drug therapy finding; Translations: [Unspecified adverse [...] not elsewhere classified, right lower leg] Onset: 08-03-2024 Episodic Other connective tissue disease (2 sources) Muscle wasting and atrophy, not elsewhere classified, left lower leg; Translations: [Muscle wasting and atrophy, not elsewhere classified, left lower leg] Onset: 08-03-2024 Episodic Other ear and sense organ disorders [...] pulmonary fibrosis; Translations: [Idiopathic pulmonary fibrosis] Onset: 08-03-2024 Chronic Other lower respiratory disease (2 sources) [...] unspecified] Onset: 05-22-2016 Chronic Urinary tract infections (8 sources) Urinary tract infectious disease; Translations: [Urinary [...] Onset: 10-24-2022 Episodic Other non-traumatic joint disorders (1 source) Pain in right hip; Translations: [Pain in [...] Test Name Value Interpretation Reference Range Facility Iron measurement (mass/mass) Ordered By: Anais Osullivan on 09-14-2024 Iron (Unsp spec) [Mass/Mass] 48 ug/dL Low 50-170 [facility] No Panel InformationOrdered By: Anais Osullivan on 09-14-2024 Unsaturated Iron Binding Capacity 164 ug/dL Low 228-428 [facility] Serum or plasma ferritin ibis surement (mass/volume)Ordered By: Anais Osullivan on 09-14-2024 Ferritin [Mass/Vol] 71 ng/mL 22-378 [facility] Serum or plasma iron saturat ion measurement (mass fraction)Ordered By: Anais Osullivan on 09-14-2024 Iron saturation [Mass fraction] 22.6 % 13-59 [facility] Comment on above: Previous reported re sult: 23.0 %Edited by: KOJO on 09/14/24:0905 TransferrinOrdered By: Davon Osullivan on 09-14-2024 Transferrin [Mass/Vol] 172 mg/dL 149-313 [facility] Comment on above: Performed at: [address] [id number] Director: Parveen Carias PhD, Phone: [phone] Absolute lymphocyte countOrd ered By: Stacie Chen on 09-13-2024 Lymphocytes Auto (Unsp spec) [#/Vol] 1.67 10*3/uL 0.83-4.51 [facility] Absolute neutrophil countOrd ered By: Stacie Chen on 09-13-2024 Neutrophils (Bld) [#/Vol] 3.6 10*3/uL 2.0-7.7 [facility] Anion gap in Serum or Plasma Ordered By: Stacie Chen on 09-13-2024 Anion gap [Moles/Vol] 7 mmol/L 5-15 [facility] Automated lymphocyte count a s percentage of total leukocytesOrdered By: Stacie Chen on 09-13-2024 Lymphocytes/100 WBC Auto (Unsp spec) 25.2 % 19-41 [facility] BUN/creatinine ratioOrdered By: Stacie Chen on 09-13-2024 Urea nitrogen/Creatinine [Mass ratio] 17.9 mg/mg 10-20 [facility] Basophil percentageOrdered B y: Stacie Chen on 09-13-2024 Basophils/100 WBC (Bld) 0.8 % 0-1 [facility] Carbon dioxide, total [Moles /volume] in Central venous bloodOrdered By: Stacie Chen on 09-13-2024 CO2 [Moles/Vol] 31.9 mmol/L 21.0-32.0 [facility] Chloride assayOrdered By: Richard Chen on 09-13-2024 Chloride [Moles/Vol] 102 mmol/L 98-108 [facility] Eosinophil percentageOrdered By: Stacie Chen on 09-13-2024 Eosinophils/100 WBC (Bld) 9.5 % High 0-5 [facility] Erythrocyte distribution wid th ratioOrdered By: Stacie Chen on 09-13-2024 Erythrocyte distribution width (RBC) [Ratio] 12.8 % 11.6-14.6 [facility] Erythrocyte distribution wid th standard deviationOrdered By: Stacie Chen on 09-13-2024 Erythrocyte distribution width (RBC) [Ratio] 47.5 fl High 35.1-43.9 [facility] Glomerular filtration rate ( GFR) estimation/1.73 sq m using serum, plasma, or whole bOrdered By: Stacie Chen on 09-13-2024 GFR/1.73 sq M.predicted among non-blacks MDRD (S/P/Bld) [Vol rate/Area] 90 mL/min/{1.73_m2} >60 [facility] Comment on above: mL/min/1.73m2 CKD-EP I Creatinine Equation (2020) Hematocrit Auto (Bld) [Volum e fraction]Ordered By: Stacie Chen on 09-13-2024 Hematocrit (Bld) [Volume fraction] 27.4 % Low 37-47 [facility] Hemoglobin measurementOrdere d By: Stacie Chen on 09-13-2024 Hemoglobin (Bld) [Mass/Vol] 8.5 g/dL Low 12.0-15.0 [facility] Immature granulocytes/100 WB C Auto (Bld)Ordered By: Stacie Chen on 09-13-2024 Immature granulocytes/100 WBC (Bld) 0.200 % 0.0-0.9 [facility] Comment on above: IG% - Immature Granu locytes (promyelocytes, myelocytes and metamyelocytes) > 1% indicates that a LEFT SHIFT is Present. MCV (mean corpuscular volume ) determinationOrdered By: Stacie Chen on 09-13-2024 MCV (RBC) [Entitic vol] 101.9 fL High 81-99 [facility] Mean corpuscular hemoglobin (MCH) determinationOrdered By: Stacie Chen on 09-13-2024 MCH (RBC) [Entitic mass] 31.6 pg 27.0-32.0 [facility] Mean corpuscular hemoglobin concentration (MCHC) determinationOrdered By: Stacie Chen on 09-13-2024 MCHC (RBC) [Mass/Vol] 31.0 g/dL Low 32-36 [facility] Mean platelet volume determi nationOrdered By: Stacie Chen on 09-13-2024 Platelet mean volume (Bld) [Entitic vol] 9.4 fL 6.2-12.0 [facility] Monocyte percentageOrdered B y: Stacie Chen on 09-13-2024 Monocytes/100 WBC (Bld) 10.1 % High 0-10 [facility] Neutrophil percentageOrdered By: Stacie Chen on 09-13-2024 Neutrophils/100 WBC (Bld) 54.2 % 47-70 [facility] Nucleated red blood cell per centageOrdered By: Stacie Chen on 09-13-2024 Nucleated RBC/100 WBC (Bld) [Ratio] 0 % 0-5 [facility] Platelet countOrdered By: Richard Chen on 09-13-2024 Platelets (Bld) [#/Vol] 210 10*3/uL 150-450 [facility] Potassium measurement (mass/ volume)Ordered By: Stacie Chen on 09-13-2024 Potassium (Unsp spec) [Mass/Vol] 4.2 mmol/L 3.3-5.1 [facility] RBC Auto (Bld) [#/Vol]Ordere d By: Stacie Chen on 09-13-2024 RBC (Bld) [#/Vol] 2.69 10*6/uL Low 4.2-5.4 [facility] Serum creatinine measurement (mass/volume)Ordered By: Stacie Chen on 09-13-2024 Creatinine [Mass/Vol] 0.57 mg/dL Low 0.70-1.20 [facility] Serum glucose measurement (m ass/volume)Ordered By: Stacie Chen on 09-13-2024 Glucose [Mass/Vol] 94 mg/dL 70-99 [facility] Serum or plasma calcium bipin urement (mass/volume)Ordered By: Stcaie Chen on 09-13-2024 Calcium [Mass/Vol] 8.9 mg/dL 7.6-11.0 [facility] Serum or plasma urea nitroge n measurement (mass/volume)Ordered By: Stacie Chen on 09-13-2024 Urea nitrogen [Mass/Vol] 10 mg/dL 4-19 [facility] Sodium levelOrdered By: Carla Chen on 09-13-2024 Sodium [Moles/Vol] 141 mmol/L 133-145 [facility] White blood cell (WBC) count Ordered By: Stacie Chen on 09-13-2024 WBC (Bld) [#/Vol] 6.6 10*3/uL 4.4-11.0 [facility] Bilirubin directOrdered By: Anais Osullivan on 07-19-2024 Bilirubin.direct [Mass/Vol] 0.08 mg/dL 0.00-0.30 [facility] Bilirubin, totalOrdered By: Anais Osullivan on 07-19-2024 Bilirubin [Mass/Vol] 0.18 mg/dL 0.00-1.30 [facility] Laboratory - Chemistry and C hemistry - challengeOrdered By: Anais Osullivan on 07-19-2024 AST [Catalytic activity/Vol] 18 U/L <32 [facility] Serum globulin measurementOr dered By: Anais Rameyjoneskenan on 07-19-2024 Globulin (S) [Mass/Vol] 3.5 g/dL 2.2-4.2 [facility] Serum or plasma alanine hart otransferase (ALT) measurementOrdered By: Karlestherluizatim Rameyjoneskenan on 07-19-2024 ALT [Catalytic activity/Vol] U/L <35 [facility] Serum or plasma albumin bipin urement (mass/volume)Ordered By: Anais Rameyjoneskenan on 07-19-2024 Albumin [Mass/Vol] 3.3 g/dL Low 3.4-4.8 [facility] Serum or plasma alkaline roni sphatase measurementOrdered By: Karlshaquilel Rameyjoneskenan on 07-19-2024 ALP [Catalytic activity/Vol] 69 U/L 35-104 [facility] TSH DL <= 0.005 mIU/L QnOrde red By: Karlestherluizatim Rameyjoneskenan on 07-19-2024 TSH Qn 3.540 uIU/mL 0.300-4.200 [facility] Total proteinOrdered By: David faustina Tanvirjoneskenan on 07-19-2024 Protein [Mass/Vol] 6.8 g/dL 5.9-8.4 [facility] Absolute lymphocyte countOrd ered By: Stacie Chen on 05-17-2024 Lymphocytes Auto (Unsp spec) [#/Vol] 1.58 10*3/uL 0.83-4.51 [facility] Absolute neutrophil countOrd ered By: Stacie Chen on 05-17-2024 Neutrophils (Bld) [#/Vol] 3.3 10*3/uL 2.0-7.7 [facility] Anion gap in Serum or Plasma Ordered By: Stacie Chen on 05-17-2024 Anion gap [Moles/Vol] 8 mmol/L 5-15 [facility] Automated lymphocyte count a s percentage of total leukocytesOrdered By: Stacie Chen on 05-17-2024 Lymphocytes/100 WBC Auto (Unsp spec) 25.3 % 19-41 [facility] BUN/creatinine ratioOrdered By: Stacie Chen on 05-17-2024 Urea nitrogen/Creatinine [Mass ratio] 16.6 mg/mg 10-20 [facility] Basophil percentageOrdered B y: Stacie Chen on 05-17-2024 Basophils/100 WBC (Bld) 0.8 % 0-1 [facility] Carbon dioxide, total [Moles /volume] in Central venous bloodOrdered By: Stacie Chen on 05-17-2024 CO2 [Moles/Vol] 30.7 mmol/L 21.0-32.0 [facility] Chloride assayOrdered By: Richard Chen on 05-17-2024 Chloride [Moles/Vol] 99 mmol/L 98-108 [facility] Eosinophil percentageOrdered By: Stacie Chen on 05-17-2024 Eosinophils/100 WBC (Bld) 11.4 % High 0-5 [facility] Erythrocyte distribution wid th (RBC) [Ratio]Ordered By: Stacie Chen on 05-17-2024 Erythrocyte distribution width (RBC) [Entitic vol] 46.8 fL High 35.1-43.9 [facility] Erythrocyte distribution wid th ratioOrdered By: Stacie Chen on 05-17-2024 Erythrocyte distribution width (RBC) [Ratio] 13.2 % 11.6-14.6 [facility] Erythrocyte distribution wid th standard deviationOrdered By: Stacie Chen on 05-17-2024 Erythrocyte distribution width (RBC) [Ratio] 46.8 fl High 35.1-43.9 [facility] GFR/1.73 sq M.predicted juanjose g non-blacks MDRD (S/P/Bld) [Vol rate/Area]Ordered By: Stacie Chen on 05-17-2024 Estimated GFR (MDRD) Non-Af Amer 91 >60 [facility] Comment on above: mL/min/1.73m2 CKD-EP I Creatinine Equation (2020) Glomerular filtration rate ( GFR) estimation/1.73 sq m using serum, plasma, or whole bOrdered By: Stacie Chen on 05-17-2024 GFR/1.73 sq M.predicted among non-blacks MDRD (S/P/Bld) [Vol rate/Area] 91 mL/min/{1.73_m2} >60 [facility] Comment on above: mL/min/1.73m2 CKD-EP I Creatinine Equation (2020) Hematocrit Auto (Bld) [Volum e fraction]Ordered By: Stacie Chen on 05-17-2024 Hematocrit (Bld) [Volume fraction] 29.3 % Low 37-47 [facility] Hemoglobin measurementOrdere d By: Stacie Chen on 05-17-2024 Hemoglobin (Bld) [Mass/Vol] 9.1 g/dL Low 12.0-15.0 [facility] Immature granulocytes/100 WB C Auto (Bld)Ordered By: Stacie Chen on 05-17-2024 Immature granulocytes/100 WBC (Bld) 0.200 % 0.0-0.9 [facility] Comment on above: IG% - Immature Granu locytes (promyelocytes, myelocytes and metamyelocytes) > 1% indicates that a LEFT SHIFT is Present. Lymphocytes Auto (Unsp spec) [#/Vol]Ordered By: Stacie Chen on 05-17-2024 Lymphocytes (Bld) [#/Vol] 1.58 10*3/uL 0.83-4.51 [facility] Lymphocytes/100 WBC Auto (Un sp spec)Ordered By: Stacie Chen on 05-17-2024 Lymphocytes/100 WBC (Bld) 25.3 % 19-41 [facility] MCV (mean corpuscular volume ) determinationOrdered By: Stacie Chen on 05-17-2024 MCV (RBC) [Entitic vol] 98.3 fL 81-99 [facility] Mean corpuscular hemoglobin (MCH) determinationOrdered By: Stacie Chen on 05-17-2024 MCH (RBC) [Entitic mass] 30.5 pg 27.0-32.0 [facility] Mean corpuscular hemoglobin concentration (MCHC) determinationOrdered By: Stacie Chen on 05-17-2024 MCHC (RBC) [Mass/Vol] 31.1 g/dL Low 32-36 [facility] Mean platelet volume determi nationOrdered By: Stacie Chen on 05-17-2024 Platelet mean volume (Bld) [Entitic vol] 9.2 fL 6.2-12.0 [facility] Monocyte percentageOrdered B y: Stacie Chen on 05-17-2024 Monocytes/100 WBC (Bld) 9.6 % 0-10 [facility] Neutrophil percentageOrdered By: Stacie Chen on 05-17-2024 Neutrophils/100 WBC (Bld) 52.7 % 47-70 [facility] Nucleated red blood cell per centageOrdered By: Stacie Chen on 05-17-2024 Nucleated RBC/100 WBC (Bld) [Ratio] 0 % 0-5 [facility] Platelet countOrdered By: Richard Chen on 05-17-2024 Platelets (Bld) [#/Vol] 215 10*3/uL 150-450 [facility] Potassium (Unsp spec) [Mass/ Vol]Ordered By: Stacie Chen on 05-17-2024 Potassium [Moles/Vol] 4.2 mmol/L 3.3-5.1 [facility] Potassium measurement (mass/ volume)Ordered By: Stacie Chen on 05-17-2024 Potassium (Unsp spec) [Mass/Vol] 4.2 mmol/L 3.3-5.1 [facility] RBC Auto (Bld) [#/Vol]Ordere d By: Stacie Chen on 05-17-2024 RBC (Bld) [#/Vol] 2.98 10*6/uL Low 4.2-5.4 [facility] Serum creatinine measurement (mass/volume)Ordered By: Stacie Chen on 05-17-2024 Creatinine [Mass/Vol] 0.56 mg/dL Low 0.70-1.20 [facility] Serum glucose measurement (m ass/volume)Ordered By: Stacie Chen on 05-17-2024 Glucose [Mass/Vol] 96 mg/dL 70-99 [facility] Serum or plasma calcium bipin urement (mass/volume)Ordered By: Stacie Chen on 05-17-2024 Calcium [Mass/Vol] 9.3 mg/dL 7.6-11.0 [facility] Serum or plasma urea nitroge n measurement (mass/volume)Ordered By: Stacie Chen on 05-17-2024 Urea nitrogen [Mass/Vol] 9 mg/dL 4-19 [facility] Sodium levelOrdered By: Carla hCen on 05-17-2024 Sodium [Moles/Vol] 138 mmol/L 133-145 [facility] White blood cell (WBC) count Ordered By: Stacie Chen on 05-17-2024 WBC (Bld) [#/Vol] 6.3 10*3/uL 4.4-11.0 [facility] L. pneumophila Ag Ql (U)Orde red By: Anais Osullivan on 04-23-2024 Legionella Antigen [facility] Urine Legionella pneumophila antigen detectionOrdered By: Anais Osullivan on 04-23-2024 L. pneumophila Ag Ql (U) [facility] Bilirubin directOrdered By: Anais Osullivan on 04-19-2024 Bilirubin.direct [Mass/Vol] 0.09 mg/dL 0.00-0.30 [facility] Bilirubin, totalOrdered By: Anais Osullivan on 04-19-2024 Bilirubin [Mass/Vol] 0.20 mg/dL 0.20-1.00 [facility] Comment on above: For patients on eltr ombopag therapy, use of Dimension Rawson TBIL is not recommended. Laboratory - Chemistry and C hemistry - challengeOrdered By: Anais Osullivan on 04-19-2024 AST [Catalytic activity/Vol] 19 U/L 15-37 [facility] Serum globulin measurementOr dered By: Anais Osullivan on 04-19-2024 Globulin (S) [Mass/Vol] 4.0 g/dL 2.2-4.2 [facility] Serum or plasma alanine hart otransferase (ALT) measurementOrdered By: Anais Osullivan on 04-19-2024 ALT [Catalytic activity/Vol] 12 U/L Low 13-56 [facility] Serum or plasma albumin bipin urement (mass/volume)Ordered By: Anais Osullivan on 04-19-2024 Albumin [Mass/Vol] 2.9 g/dL Low 3.2-5.0 [facility] Serum or plasma alkaline roni sphatase measurementOrdered By: Anais Osullivan on 04-19-2024 ALP [Catalytic activity/Vol] 78 U/L 45-117 [facility] Serum or plasma thyroid stim ulating hormone (TSH) measurement (units/volume)Ordered By: Anais Osullivan on 04-19-2024 TSH Qn 3.220 uIU/mL 0.358-3.740 [facility] TSH QnOrdered By: Anais Osullivan on 04-19-2024 Thyroid Stimulating Hormone (TSH) 3.220 uIU/mL 0.358-3.740 [facility] Total proteinOrdered By: David Osullivan on 04-19-2024 Protein [Mass/Vol] 6.9 g/dL 6.4-8.2 [facility] Absolute lymphocyte countOrd ered By: shaquille Osullivan on 04-07-2024 Lymphocytes Auto (Unsp spec) [#/Vol] 1.52 10*3/uL 0.83-4.51 [facility] Absolute neutrophil countOrd ered By: [facility] on 04-07-2024 Neutrophils (Bld) [#/Vol] 2.6 10*3/uL 2.0-7.7 [facility] Automated lymphocyte count a s percentage of total leukocytesOrdered By: Anais Osullivan on 04-07-2024 Lymphocytes/100 WBC Auto (Unsp spec) 27.2 % 19-41 [facility] Basophil percentageOrdered B y: Anais Osullivan on 04-07-2024 Basophils/100 WBC (Bld) 1.3 % High 0-1 [facility] Eosinophil percentageOrdered By: [facility] Hospital[facility] Os[facility] on 04-07-2024 Eosinophils/100 WBC (Bld) 14.5 % High 0-5 [facility] Erythrocyte distribution wid th (RBC) [Ratio]Ordered By: Schuylersuffieldtim Magallonkenan on 04-07-2024 Erythrocyte distribution width (RBC) [Entitic vol] 47.1 fL High 35.1-43.9 [facility] Erythrocyte distribution wid th ratioOrdered By: [facility] Hospital[facility] Magallonkenan on 04-07-2024 Erythrocyte distribution width (RBC) [Ratio] 12.6 % 11.6-14.6 [facility] Erythrocyte distribution wid th standard deviationOrdered By: shaquille Magallonkenan on 04-07-2024 Erythrocyte distribution width (RBC) [Ratio] 47.1 fl High 35.1-43.9 [facility] Folic acid measurementOrdere d By: Anais Osullivan on 04-07-2024 Folate 5.30 ng/mL 3.1-55.4 [facility] Hematocrit Auto (Bld) [Volum e fraction]Ordered By: Anais Osullivan on 04-07-2024 Hematocrit (Bld) [Volume fraction] 28.3 % Low 37-47 [facility] Hemoglobin measurementOrdere d By: Anais Osullivan on 04-07-2024 Hemoglobin (Bld) [Mass/Vol] 8.6 g/dL Low 12.0-15.0 [facility] Immature granulocytes/100 WB C Auto (Bld)Ordered By: esthersuffieldtim Osullivan on 04-07-2024 Immature granulocytes/100 WBC (Bld) 0.200 % 0.0-0.9 [facility] Comment on above: IG% - Immature Granu locytes (promyelocytes, myelocytes and metamyelocytes) > 1% indicates that a LEFT SHIFT is Present. Lymphocytes Auto (Unsp spec) [#/Vol]Ordered By: [facility] Os[facility] on 04-07-2024 Lymphocytes (Bld) [#/Vol] 1.52 10*3/uL 0.83-4.51 [facility] Lymphocytes/100 WBC Auto (Un sp spec)Ordered By: Anais Osullivan on 04-07-2024 Lymphocytes/100 WBC (Bld) 27.2 % 19-41 [facility] MCV (mean corpuscular volume ) determinationOrdered By: Anais Osullivan on 04-07-2024 MCV (RBC) [Entitic vol] 101.1 fL High 81-99 [facility] Mean corpuscular hemoglobin (MCH) determinationOrdered By: Anais Osullivan on 04-07-2024 MCH (RBC) [Entitic mass] 30.7 pg 27.0-32.0 [facility] Mean corpuscular hemoglobin concentration (MCHC) determinationOrdered By: Anais Osullivan on 04-07-2024 MCHC (RBC) [Mass/Vol] 30.4 g/dL Low 32-36 [facility] Mean platelet volume determi nationOrdered By: Anais Osullivan on 04-07-2024 Platelet mean volume (Bld) [Entitic vol] 9.7 fL 6.2-12.0 [facility] Monocyte percentageOrdered B y: Anais Magallone on 04-07-2024 Monocytes/100 WBC (Bld) 10.4 % High 0-10 [facility] Neutrophil percentageOrdered By: Schuylersuffieldtim Magallonkenan on 04-07-2024 Neutrophils/100 WBC (Bld) 46.4 % Low 47-70 [facility] Nucleated red blood cell per centageOrdered By: esthersuffieldtim Osullivan on 04-07-2024 Nucleated RBC/100 WBC (Bld) [Ratio] 0 % 0-5 [facility] Platelet countOrdered By: Karl shaquille Tanvirjoneskenan on 04-07-2024 Platelets (Bld) [#/Vol] 199 10*3/uL 150-450 [facility] RBC Auto (Bld) [#/Vol]Ordere d By: Anais Osullivan on 04-07-2024 RBC (Bld) [#/Vol] 2.80 10*6/uL Low 4.2-5.4 [facility] Vitamin B12 measurementOrder ed By: Anais Tanvirtaryn on 04-07-2024 Cobalamin (Vitamin B12) [Mass/Vol] 407 pg/mL 211-911 [facility] White blood cell (WBC) count Ordered By: Anais Tanvirjoneskenan on 04-07-2024 WBC (Bld) [#/Vol] 5.6 10*3/uL 4.4-11.0 [facility] CNPChristina 01-25-2024 CNPN Telephone ([facility]) MERNA WEBSTER ([id number]) 1940 F NFR Date Time Provider Department 01/25/24 SONA GRIER [facility] During your visit today, we recorded the following information about you: Lorene JaureguiEDDIE 01/25/2024 8:30 AM Signed Fax received from [facility] requesting sleep study and office visit notes supporting use of cpap. Sleep study from 2016 as well as office visit notes from 11/28/22 and 09/25/23 faxed to [facility] at [phone]. Transmission successful, paperwork in fax drawer. Indigo Decker, GEOFFREY 04/18/2024 1:53 PM Signed Spoke to Sona from [facility]. Asking for recent ABG and PFT's [...] Visit: Release Of Medical Records [2017] Cmt: [facility] Prescriptions as of 04/18/2024 - pirfenidone (ESBRIET) [...] (FLONASE) 50 mcg/actuation nasal spray Use 1 [place] in each nostril once daily. - gabapentin [...] [M16.10] 09/04/2005 Pes anserinus tendinitis or bursitis [[id number]] 09/04/2005 07/22/2017 PLANTAR FIBROMATOSIS [M72.2] 09/04/2005 Backache, unspecified [M54.9] 09/24/2005 04/23/2017 Thoracic or lumbosacral neuritis or radiculitis*09/24/2005 07/22/2017 Pathologic fracture of vertebrae [M84.48XA] 10/13/2005 07/22/2017 Osteoporosis [M81.0] more content not included)... Normal [facility] 12-31-2023 [facility] Tele[facility] ([facility]) MERNA WEBSTER ([id number]) 1940 F NFR Date Time Provider Department 12/31/23 SONA GRIER [facility] During your visit today, we recorded the following information about you: Elisabeth Barber MA 12/31/2023 3:23 PM Signed Fax received from [facility] for orders for Oxygen Concentrator and Supplies. E1390,E1392,A4615,A4616 . Dx's J84.11,J96.11, J45.30 AND G47.33. Placed in Dr. Grier's office to be signed. Elisabeth Barber MA 01/01/2024 5:25 PM Signed Forms faxed back to [facility]. Transmission with forms in drawer. Allergies [...] (FLONASE) 50 mcg/actuation nasal spray Use 1 [place] in each nostril once daily. - gabapentin [...] [M16.10] 09/04/2005 Pes anserinus tendinitis or bursitis [[id number]] 09/04/2005 07/22/2017 PLANTAR FIBROMATOSIS [M72.2] 09/04/2005 Backache, [...] (HCC) [K55.9 (more content not included)... Normal [facility] Emergency Department Summary on 11-30-2023 Emergency Department Summary [facility] Medical Records Department [address] [place] [id number] Emergency Department Summary 11/30/23 MR#: [id number] Acct: [id number] Name: MERNA WEBSTER Rep #: [id number] : 1940 83 From: Jose Raul Page [...] intact Psych: Cooperative, appropriate mood and affect [facility] Medical History Anxiety GERD (gastroesophageal reflux disease) [...] Discharge Kath (more content not included)... Normal [facility] CNOVon 09-25-2023 [facility] Office Visit ([facility] ) MERNA WEBSTER ([id number]) 1940 F NFR Date Time Provider Department 09/25/23 3:00 PM MOUNA VUONG [facility] During your visit today, we recorded the following information about you: Pulse Blood pressure Weight 79/minute 167/86 60.3 kg Ofelia Cruz APRN.CNP 09/26/2023 7:45 AM Attested Attestation signed by Mouna Vuong APRN.CNP at 09/26/2023 7:45 AM Attending Note I have personally performed a face to face assessment of the patient and have reviewed the PA/VACUUM EVAPORATION OPERATOR note. Agree with plan as stated BRANDON [...] reports doing well. She moved into a fci with her at the beginning of June [...] PRESCRIPTION Please (more content not included)... 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: : 1940 Requested By: Order Number: [id number] Reading MD: Fatuma Schroeder MD Interpretive Statements Current ATS/ERS acceptability [...] 15:43:25 EDT by Fatuma Schroeder MD ID: [id number] Name: MERNA WEBSTER Race: White Ht: 62.60 in Wt: 132.94 lbs Age: 83 Gender: Female : 1940 Dx: Idiopathic interstitial pulmonary disease_ Smoking Hx: Non-smoker Doctor: SONA GRIER Test Date: 09/25/2023 Site: [facility] Tech: Zayra Moon PRE-BRONCH POST-BRONCH Pre LLN Pred ULN %Pred Post %Pred %Chg SPIROMETRY FVC (L) 1.33 1.63 2.37 3.14 55 FEV1 (L) 1.17 1.21 1.80 2.35 64 FEV1/FVC 0.88 0.64 0.78 0.89 112 PEF L/s (L/sec) 5.59 2.70 4.34 5.98 128 FEF50 (L/sec) 2.91 1.08 2.69 4.30 108 FIF50 (L/sec) 2.85 FEF50/FIF50 1.02 90-100 FIVC (L) 1.22 ZPJ97-97 (L/sec) 2.41 0.59 1.44 2.75 167 Time [...] standards for DLCO met.//SRB PULMONARY FUNCTION LAB [facility] SPIROMETRY WITH DILATOR IF O BSTRUCTEDon 09-25-2023 DLCO (ml/min/mmHg) 7.98 ml/min/mmHg [facility] DLCO/VA (ml/min/mmHg/L) 4.18 ml/m in/mmHg/ L [facility] ERV BOX (L) 0.22 L [facility] LYB54-97% PRE (L/S) 2.41 L/S [facility] FEV1 PRE (L) 1.17 L [facility] FEV1/FVC PRE (%) 88 % [facility] FRC Box (L) 1.50 L [facility] FVC PRE (L) 1.33 L [facility] IC BOX (L) 0.95 L [facility] PEF PRE (L/S) 5.59 L/S [facility] RV Box (L) 1.29 L [facility] RV/TLC Box (%) 52 % [facility] TLC Box (L) 2.45 L [facility] VA (L) 2.38 L [facility] VC (L) BOX 1.22 L [facility] CT CHEST WO IVCONon 09-18-[address] CHEST WO IVCON * * *Final Report* * * DATE OF EXAM: Sep 18 2023 2:41PM [facility] 0541 - CT CHEST WO IVCON / [...] pattern and distribution are compatible with UIP. Quality Assurance Director: PSCB Transcribe Date/Time: Sep 24 2023 8:39A Dictated by : MIGUEL ROJO MD This examination was interpreted and the report reviewed and electronically signed by: MIGUEL ROJO MD on Sep 24 2023 12:05PM EST [id number] Normal [facility] 09-15-2023 [facility] Tele[facility] ([facility]) MERNA WEBSTER ([id number]) 1940 F NFR Date Time Provider Department 09/15/23 SONA GRIER [facility] During your visit today, we recorded [...] Diarrhea Date Reviewed: 08/17/2023 Reviewed by: Cheyenne Roth RT(R) - Fully Assessed Reason for Visit: [...] (FLONASE) 50 mcg/actuation nasal spray Use 1 [place] in each nostril once daily. - gabapentin [...] [M16.10] 09/04/2005 Pes anserinus tendinitis or bursitis [[id number]] 09/04/2005 07/22/2017 PLANTAR FIBROMATOSIS [M72.2] 09/04/2005 Backache, [...] 04/23/2017 Colonic (more content not included)... Normal [facility] CNPNon 08-17-2023 CNPN Telephone ([facility]) MERNA WEBSTER ([id number]) 1940 F NFR Date Time Provider Department 08/17/23 SONA GRIER [facility] During your visit today, we recorded the following information about you: Lorene Jauregui LPN 08/17/2023 10:46 AM Signed Fax received from [employer] - form for refills for esbriet through [employer]. Form placed on dr grier's desk for review/signature. Elisabeth Barber MA 08/26/2023 11:50 AM Signed Form faxed back to [employer]. Transmission with forms in drawer. Allergies As [...] RT(R) - Fully Assessed Reason for Visit: Forms [...] (FLONASE) 50 mcg/actuation nasal spray Use 1 [place] in each nostril once daily. - gabapentin [...] [M16.10] 09/04/2005 Pes anserinus tendinitis or bursitis [[id number]] 09/04/2005 07/22/2017 PLANTAR FIBROMATOSIS [M72.2] 09/04/2005 Backache, [...] 06/02/2012 04/23/2017 (more content not included)... Normal [facility] CNPNon 07-22-2023 CNPN Telephone ([facility]) MERNA WEBSTER ([id number]) 1940 F NFR Date Time Provider Department 07/22/23 СЕРГЕЙ ESPINOZA During your visit today, we recorded the following information about you: Callie Taylor MA 07/22/2023 1:54 PM Signed Type of letter/form/fax request - Forms Form received from [facility] Placed on desk () for completion. Completed form needs to be faxed to [phone]. Route to DANIEL when form completed for processing Сергей Espinoza MD 07/23/2023 1:05 PM Signed Forms completed. In outbox. Thanks MD Claudia El Sandra, MA 07/23/2023 2:52 PM Signed Request completed and faxed. Trudi Jordan 07/23/2023 4:14 PM Signed Char from [facility] is calling back and states that they did not receive the faxed form. Char asking to have the form faxed again. Char will be out of the office tomorrow. If you need to reach office, please contact Brinda Fernandez @ [phone] Callie Taylor MA 07/23/2023 4:27 PM Signed [...] Assessed Reason for Visit: Forms [Other] Cmt: [facility] agency on aging on disabilities Prescriptions as [...] (FLONASE) 50 mcg/actuation nasal spray Use 1 [place] in each nostril once daily. - gabapentin [...] [M16.10] 09/04/2005 Pes anserinus tendinitis or bursitis [[id number]] 09/04/2005 07/22/2017 PLANTAR FIBROMATOSIS [M72.2] 09/04/2005 Backache, unspecified [M54.9] 0 (more content not included)... Normal [facility] CNPNon 07-15-2023 CNPN Telephone ([facility]) MERNA WEBSTER ([id number]) 1940 F NFR Date Time Provider Department 07/15/23 NEUROLOGY PROVIDER [facility] During your visit today, we recorded the following information about you: Rachel George 07/16/2023 11:37 AM Signed Referral source: Brayden Murdock MD ([facility]) Reason for visit: chronic migraine evaluation External [...] Reason for Visit: Received Outside Medical Records [1877] Cmt: External referral to [facility] [place] Prescriptions as of 07/16/2023 - nortriptyline (PAMELOR) [...] (FLONASE) 50 mcg/actuation nasal spray Use 1 [place] in each nostril once daily. - gabapentin [...] [M16.10] 09/04/2005 Pes anserinus tendinitis or bursitis [FHY3754] 09/04/2005 07/22/2017 PLANTAR FIBROMATOSIS [M72.2] 09/04/2005 Backache, [...] 04/23/2017 Colonic (more content not included)... Normal [facility] CBC W Auto Differential pane l (Bld)on 07-14-2023 Basophils (Bld) [#/Vol] 0.06 10*3/uL Normal <0.11 [facility] Comment on above: Order Comment: Speci men Type: URINE SPECIMEN Ordering Facility: [facility] Address: [address] [place] [address] Performed By: #### 2 695-5 #### [facility] CLIA [id number] [address] [place] [address] [place] Basophils/100 WBC (Bld) 0.8 % Normal [facility] Comment on above: Order Comment: Speci men Type: URINE SPECIMEN Ordering Facility: [facility] Address: [address] [place] [address] Performed By: #### 2 695-5 #### [facility] CLIA [id number] [address] [place] [address] [place] Differential cell count method Nom (Bld) Auto Normal [facility] [facility] Comment on above: Order Comment: Speci men Type: URINE SPECIMEN Ordering Facility: [facility] Address: [address] [place] [address] Performed By: #### 2 695-5 #### [facility] CLIA [id number] [address] [place] [address] [place] Eosinophils (Bld) [#/Vol] 0.38 10*3/uL Normal <0.46 [facility] Comment on above: Order Comment: Speci men Type: URINE SPECIMEN Ordering Facility: [facility] Address: [address] [place] [address] Performed By: #### 2 695-5 #### [facility] CLIA [id number] [address] [place] [address] [place] Eosinophils/100 WBC (Bld) 5.1 % Normal [facility] Comment on above: Order Comment: Speci men Type: URINE SPECIMEN Ordering Facility: [facility] Address: [address] [place] [address] Performed By: #### 2 695-5 #### [facility] CLIA [id number] [address] [place] [address] [place] Erythrocyte distribution width (RBC) [Ratio] 12.3 % Normal 11.5-15.0 [facility] Comment on above: Order Comment: Speci men Type: URINE SPECIMEN Ordering Facility: [facility] Address: [address] [place] [address] Performed By: #### 2 695-5 #### [facility] CLIA [id number] [address] [place] [address] [place] Hematocrit (Bld) [Volume fraction] 35.2 % Low 36.0-46.0 [facility] Comment on above: Order Comment: Speci men Type: URINE SPECIMEN Ordering Facility: [facility] Address: [address] [place] [address] Performed By: #### 2 695-5 #### [facility] CLIA [id number] [address] [place] [address] [place] Hemoglobin (Bld) [Mass/Vol] 11.1 g/dL Low 11.5-15.5 [facility] Comment on above: Order Comment: Speci men Type: URINE SPECIMEN Ordering Facility: [facility] Address: [address] [place] [address] Performed By: #### 2 695-5 #### [facility] CLIA [id number] [address] [place] [address] [place] Immature granulocytes (Bld) [#/Vol] 0.03 10*3/uL Normal <0.10 [facility] Comment on above: Order Comment: Speci men Type: URINE SPECIMEN Ordering Facility: [facility] Address: [address] [place] [address] Performed By: #### 2 695-5 #### [facility] CLIA [id number] [address] [place] [address] [place] Immature granulocytes/100 WBC (Bld) 0.4 % Normal [facility] Comment on above: Order Comment: Speci men Type: URINE SPECIMEN Ordering Facility: [facility] Address: [address] [place] [address] Performed By: #### 2 695-5 #### [facility] CLIA [id number] [address] [place] [address] [place] Lymphocytes (Bld) [#/Vol] 1.40 10*3/uL Normal 1.00-4.00 [facility] Comment on above: Order Comment: Speci men Type: URINE SPECIMEN Ordering Facility: [facility] Address: [address] [place] [address] Performed By: #### 2 695-5 #### [facility] CLIA [id number] [address] [place] [address] [place] Lymphocytes/100 WBC (Bld) 18.8 % Normal [facility] Comment on above: Order Comment: Speci men Type: URINE SPECIMEN Ordering Facility: [facility] Address: [address] [place] [address] Performed By: #### 2 695-5 #### [facility] CLIA [id number] [address] [place] [address] [place] MCH (RBC) [Entitic mass] 32.4 pg Normal 26.0-34.0 [facility] Comment on above: Order Comment: Speci men Type: URINE SPECIMEN Ordering Facility: [facility] Address: [address] [place] [address] Performed By: #### 2 695-5 #### [facility] CLIA [id number] [address] [place] [address] [place] MCHC (RBC) [Mass/Vol] 31.5 g/dL Normal 30.5-36.0 [facility] Comment on above: Order Comment: Speci men Type: URINE SPECIMEN Ordering Facility: [facility] Address: [address] [place] [address] Performed By: #### 2 695-5 #### [facility] CLIA [id number] [address] [place] [address] [place] MCV (RBC) [Entitic vol] 102.6 fL High 80.0-100.0 [facility] Comment on above: Order Comment: Speci men Type: URINE SPECIMEN Ordering Facility: [facility] Address: [address] [place] [address] Performed By: #### 2 695-5 #### [facility] CLIA [id number] [address] [place] [address] [place] Monocytes (Bld) [#/Vol] 0.80 10*3/uL Normal <0.87 [facility] Comment on above: Order Comment: Speci men Type: URINE SPECIMEN Ordering Facility: [facility] Address: [address] [place] [address] Performed By: #### 2 695-5 #### [facility] CLIA [id number] [address] [place] [address] [place] Monocytes/100 WBC (Bld) 10.7 % Normal [facility] Comment on above: Order Comment: Speci men Type: URINE SPECIMEN Ordering Facility: [facility] Address: [address] [place] [address] Performed By: #### 2 695-5 #### [facility] CLIA [id number] [address] [place] [address] [place] Neutrophils (Bld) [#/Vol] 4.78 10*3/uL Normal 1.45-7.50 [facility] Comment on above: Order Comment: Speci men Type: URINE SPECIMEN Ordering Facility: [facility] Address: [address] [place] [address] Performed By: #### 2 695-5 #### [facility] CLIA [id number] [address] [place] [address] [place] Neutrophils/100 WBC (Bld) 64.2 % Normal [facility] Comment on above: Order Comment: Speci men Type: URINE SPECIMEN Ordering Facility: [facility] Address: [address] [place] [address] Performed By: #### 2 695-5 #### [facility] CLIA [id number] [address] [place] [address] [place] Nucleated RBC (Bld) [#/Vol] 10*3/uL Normal <0.01 [facility] Comment on above: Order Comment: Speci men Type: URINE SPECIMEN Ordering Facility: [facility] Address: [address] [place] [address] Performed By: #### 2 695-5 #### [facility] CLIA [id number] [address] [place] [address] [place] Nucleated RBC/100 WBC (Bld) [Ratio] 0.0 /100 WBC Normal [facility] Comment on above: Order Comment: Speci men Type: URINE SPECIMEN Ordering Facility: [facility] Address: [address] [place] [address] Performed By: #### 2 695-5 #### [facility] CLIA [id number] [address] [place] [address] [place] Platelet mean volume (Bld) [Entitic vol] 9.6 fL Normal 9.0-12.7 [facility] Comment on above: Order Comment: Speci men Type: URINE SPECIMEN Ordering Facility: [facility] Address: [address] [place] [address] Performed By: #### 2 695-5 #### [facility] CLIA [id number] [address] [place] [address] [place] Platelets (Bld) [#/Vol] 235 10*3/uL Normal 150-400 [facility] Comment on above: Order Comment: Speci men Type: URINE SPECIMEN Ordering Facility: [facility] Address: [address] [place] [address] Performed By: #### 2 695-5 #### [facility] CLIA [id number] [address] [place] [address] [place] RBC (Bld) [#/Vol] 3.43 10*6/uL Low 3.90-5.20 [facility] Comment on above: Order Comment: Speci men Type: URINE SPECIMEN Ordering Facility: [facility] Address: [address] [place] [address] Performed By: #### 2 695-5 #### [facility] CLIA [id number] [address] [place] [address] [place] WBC (Bld) [#/Vol] 7.45 10*3/uL Normal 3.70-11.00 [facility] Comment on above: Order Comment: Speci men Type: URINE SPECIMEN Ordering Facility: [facility] Address: [address] [place] [address] Performed By: #### 2 695-5 #### [facility] CLIA [id number] [address] [place] [address] [place] Folate SerPl-mCncon 07-14-19 24 Folate [Mass/Vol] 19.2 ng/mL Normal >4.7 [facility] Comment on above: Order Comment: Speci men Type: BLOOD SPECIMENOrdering Facility: [facility] Address: [address] [place] [address] Performed By: #### 2 284-8 ####[facility] [id number] [place] [address] [place] Osmolality SerPlon 4 Osmolality [Osmolality] 288 mosm/kg Normal 275-300 [facility] Comment on above: Order Comment: Speci men Type: URINE SPECIMEN Ordering Facility: [facility] Address: [address] [place] [address] Performed By: #### 2 695-5 #### [facility] CLIA [id number] [address] [place] [address] [place] Osmolality Uron 07-14-2023 Osmolality (U) [Osmolality] 331 mosm/kg Normal 50-1200 [facility] Comment on above: Order Comment: Speci men Type: URINE SPECIMEN Ordering Facility: [facility] Address: [address] [place] [address] Performed By: #### 2 695-5 #### [facility] CLIA [id number] [address] [place] [address] [place] Retics #on 07-14-2023 Reticulocytes (Bld) [#/Vol] 0.51122 10*3/uL Normal 0.018-0.100 [facility] Comment on above: Order Comment: Speci men Type: BLOOD SPECIMENOrdering Facility: [facility] Address: [address] [place] [address] Performed By: #### 5 7021-8, 86022-7 ####[facility] [id number] [place] [address] [place] Reticulocytes (Bld) [#/Vol]o n 07-14-2023 Reticulocytes/100 RBC (Bld) 1.5 % Normal 0.4-2.0 [facility] Comment on above: Order Comment: Speci men Type: BLOOD SPECIMENOrdering Facility: [facility] Address: [address] [place] [address] Performed By: #### 5 7021-8, 29438-7 ####[facility] [id number] [place] [address] [place] Sodium ?Tm Ur-sCncon 024 Sodium Unsp time (U) [Moles/Vol] 72 mmol/L Normal 14-216 [facility] Comment on above: Order Comment: Speci men Type: URINE SPECIMEN Ordering Facility: [facility] Address: [address] [place] [address] Performed By: #### 3 5678-2 #### [facility] CLIA [id number] [address] [place] [address] [place] Urinalysis complete panel (U )on 07-14-2023 Bacteria LM.HPF (Urine sed) [#/Area] Negative Normal Negative [facility] Comment on above: Order Comment: Speci men Type: URINE SPECIMENOrdering Facility: [facility] Address: [address] [place] [address] Performed By: #### 2 4356-8 ####[facility] [id number] [place] [address] [place] Bilirubin Ql (U) Negative Normal Negative [facility] Comment on above: Order Comment: Speci men Type: URINE SPECIMENOrdering Facility: [facility] Address: [address] [place] [address] Performed By: #### 2 4356-8 ####[facility] [id number] [place] [address] [place] Clarity (Unsp spec) Clear Normal Clear [facility] Comment on above: Order Comment: Speci men Type: URINE SPECIMENOrdering Facility: [facility] Address: [address] [place] [address] Performed By: #### 2 4356-8 ####[facility] [id number] [place] [address] [place] Color (U) Yellow Normal Yellow [facility] Comment on above: Order Comment: Speci men Type: URINE SPECIMENOrdering Facility: [facility] Address: [address] [place] [address] Performed By: #### 2 4356-8 ####[facility] [id number] [place] [address] [id number] Epithelial cells LM.HPF (Urine sed) [#/Area] None Seen Normal [facility] Comment on above: Order Comment: Speci men Type: URINE SPECIMENOrdering Facility: [facility] Address: [address] [place] [address] Performed By: #### 2 4356-8 ####[facility] [id number] [address] [place] Glucose Test strip (U) [Mass/Vol] Trace Abnormal Negative [facility] Comment on above: Order Comment: Speci men Type: URINE SPECIMENOrdering Facility: [facility] Address: [address] [place] [address] Performed By: #### 2 4356-8 ####[facility] [id number] [place] [address] [place] Hemoglobin Ql (U) Negative Normal Negative [facility] Comment on above: Order Comment: Speci men Type: URINE SPECIMENOrdering Facility: [facility] Address: [address] [place] [address] Performed By: #### 2 4356-8 ####[facility] [id number] [address] [place] Hyaline casts (Urine sed) [#/Area] 0 /[LPF] Normal 0 /LPF [facility] Comment on above: Order Comment: Speci men Type: URINE SPECIMENOrdering Facility: [facility] Address: [address] [place] [address] Performed By: #### 2 4356-8 ####[facility] [id number] [address] [place] Ketones Ql (U) Negative Normal Negative [facility] Comment on above: Order Comment: Speci men Type: URINE SPECIMENOrdering Facility: [facility] Address: [address] [place] [address] Performed By: #### 2 4356-8 ####[facility] [id number] [place] [address] [place] Leukocyte esterase Test strip Ql (U) Negative Normal Negative [facility] Comment on above: Order Comment: Speci men Type: URINE SPECIMENOrdering Facility: [facility] Address: [address] [place] [address] Performed By: #### 2 4356-8 ####[facility] [id number] [place] [address] [place] Nitrite Ql (U) Negative Normal Negative [facility] Comment on above: Order Comment: Speci men Type: URINE SPECIMENOrdering Facility: [facility] Address: [address] [place] [address] Performed By: #### 2 4356-8 ####[facility] [id number] [place] [address] [place] pH (U) 6.5 [pH] Normal <8.5 [facility] Comment on above: Order Comment: Speci men Type: URINE SPECIMENOrdering Facility: [facility] Address: [address] [place] [address] Performed By: #### 2 4356-8 ####[facility] [id number] [place] [address] [place] Protein (U) [Mass/Vol] Negative Normal Negative [facility] Comment on above: Order Comment: Speci men Type: URINE SPECIMENOrdering Facility: [facility] Address: [address] [place] [address] Performed By: #### 2 4356-8 ####[facility] [id number] [place] [address] [place] RBC LM.HPF (Urine sed) [#/Area] 0-2 /HPF Normal 0-2 /HPF [facility] Comment on above: Order Comment: Speci men Type: URINE SPECIMENOrdering Facility: [facility] Address: [address] [place] [address] Performed By: #### 2 4356-8 ####[facility]IA [id number] [place] [address] [place] [facility] Specific gravity (U) [Rel density] 1.013 Normal 1.005-1.030 [facility] Comment on above: Order Comment: Speci men Type: URINE SPECIMENOrdering Facility: [facility] Address: [address] [place] [address] Performed By: #### 2 4356-8 ####[facility] [id number] [place] [address] [place] Urobilinogen Ql (U) 0.2 EU/dL Normal 0.2-1.0 EU/dL [facility] Comment on above: Order Comment: Speci men Type: URINE SPECIMENOrdering Facility: [facility] Address: [address] [place] [address] Performed By: #### 2 4356-8 ####[facility] [id number] [place] [address] [place] WBC LM.HPF (Urine sed) [#/Area] 0-5 /HPF Normal 0-5 /HPF [facility] Comment on above: Order Comment: Speci men Type: URINE SPECIMENOrdering Facility: [facility] Address: [address] [place] [address] Performed By: #### 2 4356-8 ####[facility] [id number] [address] [place] Jamie 07-10-2023 ISABELA Telephone ([facility]) JAMIL,CAROLE L ([id number]) 1940 F NFR Date Time Provider Department 07/10/23 СЕРГЕЙ ESPINOZA During your visit today, we [...] [D64.9] Order(s):SODIUM RANDOM URINE [SQUNAR] Order #: [id number] FUTURE OSMOLALITY URINE [SQUOSM] Order #: [id number] FUTURE OSMOLALITY [SQOSM] Order #: [id number] FUTURE COMPLETE BLOOD COUNT AND DIFFERENTIAL [SQCBCDIF] Order #: [id number] FUTURE RETICULOCYTE COUNT [SQRETIC] Order #: [id number] FUTURE FOLATE, SERUM [SQSERFOL] Order #: [id number] FUTURE Prescriptions as of 07/10/2023 - ALPRAZolam (XANAX) 1 mg tablet Take 1 tablet by mouth three times a day as needed for sedation or anxiety for up to 30 days. - levothyroxine (SYNTHROID) 75 mcg tablet Take 0.5 tablets by mouth once daily. - fluticasone (FLONASE) 50 mcg/actuation nasal spray Use 1 [place] in each nostril once daily. - gabapentin [...] 09/04/2005 Primary (more content not included)... Normal [facility] CBC panel Auto (Bld)on 07-08 Erythrocyte distribution width (RBC) [Ratio] 12.6 % 11.5 - 15.0 % [facility] Hematocrit (Bld) [Volume fraction] 35.6 % Low 36.0 - 46.0 % [facility] Hemoglobin (Bld) [Mass/Vol] 11.1 g/dL Low 11.5 - 15.5 g/dL [facility] Interpretation and review of laboratory results Abnormal [facility] MCH (RBC) [Entitic mass] 32.6 pg 26.0 - 34.0 pg [facility] MCHC (RBC) [Mass/Vol] 31.2 g/dL 30.5 - 36.0 g/dL [facility] MCV (RBC) [Entitic vol] 104.4 fL High 80.0 - 100.0 fL [facility] Nucleated RBC (Bld) [#/Vol] NINF [facility] Platelet mean volume (Bld) [Entitic vol] 9.5 fL 9.0 - 12.7 fL [facility] Platelets (Bld) [#/Vol] 269 10*3/uL [facility] RBC (Bld) [#/Vol] 3.41 10*6/uL Low 3.90 - 5.2 0 m/uL [facility] WBC (Bld) [#/Vol] 7.86 10*3/uL [facility] Erythrocyte distribution width (RBC) [Ratio] 12.6 % Normal 11.5-15.0 [facility] Comment on above: Order Comment: Speci men Type: URINE SPECIMEN [facility]ing Facility[facility] Address: [address] [place] [address] Performed By: #### 2 695-5 #### [facility] CLIA [id number] [address] [place] [address] [place] Hematocrit (Bld) [Volume fraction] 35.6 % Low 36.0-46.0 [facility] Comment on above: Order Comment: Speci men Type: URINE SPECIMEN Ordering Facility: [facility] Address: [address] [place] [address] Performed By: #### 2 695-5 #### [facility] CLIA [id number] [address] [place] [address] [place] Hemoglobin (Bld) [Mass/Vol] 11.1 g/dL Low 11.5-15.5 [facility] Comment on above: Order Comment: Speci men Type: URINE SPECIMEN Ordering Facility: [facility] Address: [address] [place] [address] Performed By: #### 2 695-5 #### [facility] CLIA [id number] [address] [place] [address] [place] MCH (RBC) [Entitic mass] 32.6 pg Normal 26.0-34.0 [facility] Comment on above: Order Comment: Speci men Type: URINE SPECIMEN Ordering Facility: [facility] Address: [address] [place] [address] Performed By: #### 2 695-5 #### [facility] CLIA [id number] [address] [place] [address] [place] MCHC (RBC) [Mass/Vol] 31.2 g/dL Normal 30.5-36.0 [facility] Comment on above: Order Comment: Speci men Type: URINE SPECIMEN Ordering Facility: [facility] Address: [address] [place] [address] Performed By: #### 2 695-5 #### [facility] CLIA [id number] [address] [place] [address] [place] MCV (RBC) [Entitic vol] 104.4 fL High 80.0-100.0 C [facility] Comment on above: Order Comment: Speci men Type: URINE SPECIMEN Ordering Facility: [facility] Address: [address] [place] [address] Performed By: #### 2 695-5 #### [facility] CLIA [id number] [address] [place] [address] [place] Nucleated RBC (Bld) [#/Vol] 10*3/uL Normal <0.01 [facility] Comment on above: Order Comment: Speci men Type: URINE SPECIMEN Ordering Facility: [facility] Address: [address] [place] [address] Performed By: #### 2 695-5 #### [facility] CLIA [id number] [address] [place] [address] [place] Platelet mean volume (Bld) [Entitic vol] 9.5 fL Normal 9.0-12.7 [facility] Comment on above: Order Comment: Speci men Type: URINE SPECIMEN Ordering Facility: [facility] Address: [address] [place] [address] Performed By: #### 2 695-5 #### [facility] CLIA [id number] [address] [place], [place] [id number] [place] Platelets (Bld) [#/Vol] 269 10*3/uL Normal 150-400 [facility] Comment on above: Order Comment: Speci men Type: URINE SPECIMEN Ordering Facility: [facility] Address: [address] [place] [address] Performed By: #### 2 695-5 #### [facility] CLIA [id number] [address] [place] [address] [place] RBC (Bld) [#/Vol] 3.41 10*6/uL Low 3.90-5.20 [facility] Comment on above: Order Comment: Speci men Type: URINE SPECIMEN Ordering Facility[facility] Address: [address] [place] [address] Performed By: #### 2 695-5 #### [facility] CLIA [id number] [address] [place] [address] [place] WBC (Bld) [#/Vol] 7.86 10*3/uL Normal 3.70-11.00 [facility] Comment on above: Order Comment: Speci men Type: URINE SPECIMEN Ordering Facility[facility] Address: [address] [place] [address] Performed By: #### 2 695-5 #### [facility] CLIA [id number] [address] [place] [address] [place] CNOVon 07-09-2023 CNOV Office Visit (IMMDNA ) MERNA WEBSTER ([id number]) 1940 F NFR Date Time Provider Department 07/09/23 8:00 AM OLGA, СЕРГЕЙ A [facility] During your visit today, we recorded [...] Callie Taylor MA 07/09/2023 8:07 AM Signed [facility] TEST INFORMATION [facility] HOURS: Lab is open: 7:30am to 5:00pm - , 7:30am to 4:00pm on Thu and 8am -12pm on Thu. The lab is located in [facility] on the first floor. There is a registration window at the lab, available 7 am to 3 pm Thursday - Thursday. If registration is unavailable at the lab, you may register at the patient registration office near the front lobby of the [facility]. SCHEDULING A LAB APPOINTMENT: Laboratory appointments are recommended.Walk ins are still accepted. Call [phone] or schedule via [employer] scheduling ticket. ROUTINE LAB ORDERS 60 days [...] REFILL REQUESTS Request prescription refills through your [employer] account or contact your Pharmacy. My Chart Schedule My Appointment enables you to view your established primary care provider's open schedule and book an appointment online in real-time. This feature is available in internal medicine, family medicine, or pediatrics at any of our [facility] locations and main campus. Сергей Espinoza MD 07/09/2023 10:15 AM Signed ESTABLISHED PATIENT Merna Webster is a 83 year old female presenting for Fci Evaluation HISTORY OF PRESENT ILLNESS Patient is moving in to [place] [employer] [facility]. Happy to be moving in with her as they have been apart for over 1 year. Going to pain medicine in [place]. Has arthritis in the right hip. Has [...] Allergies: ALLERGIES (more content not included)... Normal [facility] Comprehensive metabolic 2000 panelon 07-09-2023 Albumin [Mass/Vol] 3.8 g/dL Low 3.9 - 4.9 g/dL [facility] ALP [Catalytic activity/Vol] 90 U/L 34 - 123 U/L [facility] ALT [Catalytic activity/Vol] 11 U/L 7 - 38 U/L [facility] Anion gap [Moles/Vol] 7 mmol/L Low 9 - 18 mmol/L [facility] AST [Catalytic activity/Vol] 28 U/L 13 - 35 U/L [facility] Bilirubin [Mass/Vol] mg/dL Low 0.2 - 1 .3 mg/dL [facility] Calcium [Mass/Vol] 9.1 mg/dL 8.5 - 10. 2 mg/dL [facility] Chloride [Moles/Vol] 95 mmol/L Low 97 - 10 5 mmol/L [facility] CO2 [Moles/Vol] 31 mmol/L High 22 - 30 mmol/L [facility] Creatinine [Mass/Vol] 0.60 mg/dL 0.58 - 0.96 mg/dL [facility] GFR/1.73 sq M.predicted among non-blacks MDRD (S/P/Bld) [Vol rate/Area] 90 mL/min/{1.73_m2} - PINF [facility] Comment on above: Estimated Glomerular Filtration Rate [...] 108 mg/dL High 74 - 99 mg/dL [facility] Comment on above: The [place] Diabete s Association (ADA) provides guidance for [...] Standards of Medical Care in Diabetes 2016, [place] Diabetes Association. Diabetes Care. 2016.39(Suppl 1). Interpretation and review of laboratory results Abnormal [facility] Potassium [Moles/Vol] 4.5 mmol/L 3.7 - 5.1 mmol/L [facility] Protein [Mass/Vol] 6.9 g/dL 6.3 - 8.0 g/dL [facility] Sodium [Moles/Vol] 133 mmol/L Low 136 - 144 mmol/L [facility] Urea nitrogen [Mass/Vol] 12 mg/dL 7 - 21 mg/dL [facility] Albumin [Mass/Vol] 3.8 g/dL Low 3.9-4.9 [facility] Comment on above: Order Comment: Speci men Type: BLOOD SPECIMENOrdering Facility: [facility] Address: [address] [place] [address] Performed By: #### L IPNF, 04006-5 ####[facility] LABORATORYCLIA [id number] [place] [address] [place] [facility] ALP [Catalytic activity/Vol] 90 U/L Normal 34-123 [facility] Comment on above: Order Comment: Speci men Type: BLOOD SPECIMENOrdering Facility: [facility] Address: [address] [place] [address] Performed By: #### L IPNF, 57267-7 ####[facility] LABORATORYCLIA [id number] [place] [address] [place] [facility] ALT [Catalytic activity/Vol] 11 U/L Normal 7-38 [facility] Comment on above: Order Comment: Speci men Type: BLOOD SPECIMENOrdering Facility: [facility] Address: [address] [place] [address] Performed By: #### L IPNF, 94432-2 ####[facility] LABORATORYCLIA [id number] [place] [address] [place] Anion gap [Moles/Vol] 7 mmol/L Low 9-18 [facility] Comment on above: Order Comment: Speci men Type: BLOOD SPECIMENOrdering Facility: [facility] Address: [address] [place] [address] Performed By: #### L IPNF, 77005-7 ####[facility] LABORATORYCLIA [id number] [place] [address] [place] AST [Catalytic activity/Vol] 28 U/L Normal 13-35 [facility] Comment on above: Order Comment: Speci men Type: BLOOD SPECIMENOrdering Facility: [facility] Address: [address] [place] [address] Performed By: #### L IPNF, 58793-2 ####[facility] LABORATORYCLIA [id number] [place] [address] [place] Bilirubin [Mass/Vol] mg/dL Low 0.2-1.3 [facility] Comment on above: Order Comment: Speci men Type: BLOOD SPECIMENOrdering Facility: [facility] Address: [address] [place] [address] Performed By: #### L IPNF, 08176-3 ####CHAHAL LABORATORYCLIA [id number] [place] [id number] [place] Calcium [Mass/Vol] 9.1 mg/dL Normal 8.5-10.2 [facility] Comment on above: Order Comment: Speci men Type: BLOOD SPECIMENOrdering Facility: [facility] Address: [address] [place] [address] Performed By: #### L IPNF, 74594-4 ####[facility] LABORATORYCLIA [id number] [place] [address] [place] Chloride [Moles/Vol] 95 mmol/L Low 97-105 [facility] Comment on above: Order Comment: Speci men Type: BLOOD SPECIMENOrdering Facility: [facility] Address: [address] [place] [address] Performed By: #### L IPNF, 29059-7 ####[facility] LABORATORYCLIA [id number] [place] [address] [place] CO2 [Moles/Vol] 31 mmol/L High 22-30 [facility] Comment on above: Order Comment: Speci men Type: BLOOD SPECIMENOrdering Facility: [facility] Address: [address] [place] [address] Performed By: #### L IPNF, 66869-3 ####[facility] LABORATORYCLIA [id number] [place] [address] [place] Creatinine [Mass/Vol] 0.60 mg/dL Normal 0.58-0.96 [facility] Comment on above: Order Comment: Speci men Type: BLOOD SPECIMENOrdering Facility: [facility] Address: [address] [place] [address] Performed By: #### L IPNF, 66919-0 ####[facility]AL LABORATORYCLIA [id number] [address] Creatinine and Glomerular filtration rate.predicted panel (S/P/Bld) 90 mL/min/1.73m??? Normal >=60 [facility] Comment on above: Order Comment: Speci men Type: BLOOD SPECIMENOrdering Facility: [facility] Address: [address] [place] [address] Result Comment: Arlen mated Glomerular Filtration Rate [...] actual GFR. Performed By: #### L IPNF, 78655-1 ####CH[facility]AL LABORATORYCLIA [id number] [place] [address] [place] Glucose [Mass/Vol] 108 mg/dL High 74-99 [facility] Comment on above: Order Comment: Speci men Type: BLOOD SPECIMENOrdering Facility: [facility] Address: [address] [place], [place] [id number] Result Comment: The [place] Diabetes Association (ADA) provides guidance for cutoff [...] Standards of Medical Care in Diabetes 2016, [place] Diabetes Association. Diabetes Care. 2016.39(Suppl 1). Performed By: #### L IPNF, 72935-7 ####[facility] LABORATORYCLIA [id number] [place] [address] [place] Potassium [Moles/Vol] 4.5 mmol/L Normal 3.7-5.1 [facility] Comment on above: Order Comment: Niurkai men Type: BLOOD SPECIMENOrdering Facility: [facility] Address: [address] [place] [address] Performed By: #### L IPNF, 01213-9 ####[facility] LABORATORYCLIA [id number] [place] [address] [place] Protein [Mass/Vol] 6.9 g/dL Normal 6.3-8.0 [facility] Comment on above: Order Comment: Speci men Type: BLOOD SPECIMENOrdering Facility: [facility] Address: [address] [place], [place] [address] Performed By: #### L IPNF, 01003-2 ####[facility] LABORATORYCLIA [id number] [place] [address] [place] Sodium [Moles/Vol] 133 mmol/L Low 136-144 [facility] Comment on above: Order Comment: Speci men Type: BLOOD SPECIMENOrdering Facility: [facility] Address: [address] [place] [address] Performed By: #### L IPNF, 26163-7 ####[facility] LABORATORYCLIA [id number] [place] [address] [place] Urea nitrogen [Mass/Vol] 12 mg/dL Normal 7-21 [facility] Comment on above: Order Comment: Speci men Type: BLOOD SPECIMENOrdering Facility: [facility] Address: [address] [place] [address] Performed By: #### L IPNF, 82209-4 ####[facility]AL LABORATORYCLIA [id number] [address] OF [facility] LIPID PANEL, NONFASTINGon Cholesterol [Mass/Vol] 176 mg/dL NINF - 200 mg/dL [facility] Comment on above: <200 mg/dL, Desirabl e 200-239 mg/dL, Borderline high >239 mg/dL, High HDL Cholesterol, Nonfasting 64 mg/dL 39 - PINF mg/dL [facility] Comment on above: 40-59 mg/dL, Accepta ble >59 mg/dL, High: Negative risk factor for coronary heart disease <40 mg/dL, Low: Positive risk factor for coronary heart disease Interpretation and review of laboratory results Normal [facility] LDL Cholesterol, Nonfasting 97 mg/dL NINF - 100 mg/dL [facility] Comment on above: <100 mg/dL, Optimal 100-129 mg/dL, Near optimal/above optimal 130-159 mg/dL, Borderline high 160-189 mg/dL, High >189 mg/dL, Very high Secondary prevention optimal LDL Cholesterol levels are recommended to be < 70 mg/dL LDL/HDL Ratio, Nonfasting 1.52 mg/dL NINF - 2.54 mg/dL [facility] Comment on above: Reference: 1. National Cholesterol Education Program ATP III Guideline At-A-Glance Quick Desk Reference: National Heart, Lung, and Blood [place]. National Institutes of Health. 2001: NIH Publication No. 01-3305. 2. An International Atherosclerosis Society position paper: global recommendations for the management of dyslipidemia: executive summary, Atherosclerosis. 2014: 232(2):410-413. Non HDL Cholesterol, Nonfasting 112 mg/dL NINF - 130 mg/dL [facility] Comment on above: <130 mg/dL, Optimal 130-159 mg/dL, Near optimal/above optimal 160-189 mg/dL, Borderline high 190-219 mg/dL, High >219 mg/dL, Very high Secondary prevention optimal non HDL Cholesterol levels are recommended to be <100 mg/dL Total Chol/HDL Ratio, Nonfasting 2.75 mg/dL NINF - 5.10 mg/dL [facility] Triglycerides, Nonfasting 73 mg/dL NINF - 150 mg/dL [facility] Comment on above: <150 mg/dL, Normal 150-199 mg/dL, Borderline high 200-499 mg/dL, High >499 mg/dL, Very high VLDL Cholesterol, Nonfasting 15 mg/dL NINF - 30 mg/dL [facility] Cholesterol [Mass/Vol] 176 mg/dL Normal <200 [facility] Comment on above: Order Comment: Speci men Type: BLOOD SPECIMENOrdering Facility: [facility] Address: [address] [place] [address] Result Comment: <200 mg/dL, Desirable 200-239 mg/dL, Borderline high >239 mg/dL, High Performed By: #### L IPNF, 00977-1 ####[facility] LABORATORYCLIA [id number] [address] HDL CHOLESTEROL, NF 64 mg/dL Normal >39 [facility] Comment on above: Order Comment: Speci men Type: BLOOD SPECIMENOrdering Facility: [facility] Address: [address] [place] [address] Result Comment: 40-5 9 mg/dL, Acceptable >59 mg/dL, High: Negative risk factor for coronary heart disease <40 mg/dL, Low: Positive risk factor for coronary heart disease Performed By: #### L IPVIKTOR, 12976-2 ####[facility] LABORATORYCLIA [id number] [address] LDL CHOLESTEROL, NF 97 mg/dL Normal <100 [facility] Comment on above: Order Comment: Speci men Type: BLOOD SPECIMENOrdering Facility: [facility] Address: [address] [place] [address] Result Comment: <100 mg/dL, Optimal 100-129 mg/dL, Near optimal/above optimal 130-159 mg/dL, Borderline high 160-189 mg/dL, High >189 mg/dL, Very high Secondary prevention optimal LDL Cholesterol levels are recommended to be < 70 mg/dL Performed By: #### L IPNF, 28742-1 ####[facility] LABORATORYCLIA [id number] [address] LDL/HDL RATIO, NF 1.52 mg/dL Normal <2.54 [facility] Comment on above: Order Comment: Rj michel Type: BLOOD SPECIMENOrdering Facility: [facility] Address: [address] [place] [address] Result Comment: Dewayne farahce: 1. National Cholesterol Education Program ATP III Guideline At-A-Glance Quick Desk Reference: National Heart, Lung, and Blood [place]. National Institutes of Health. 2001: NIH Publication No. 01-3305. 2. An International Atherosclerosis Society position paper: global recommendations for the management of dyslipidemia: executive summary, Atherosclerosis. 2014: 232(2):410-413. Performed By: #### L IPNF, 13787-2 ####[facility] LABORATORYCLIA [id number] [address] NON HDL CHOL, NF 112 mg/dL Normal <130 [facility] Comment on above: Order Comment: Rj michel Type: BLOOD SPECIMENOrdering Facility: [facility] Address: [address] [place] [address] Result Comment: <130 mg/dL, Optimal 130-159 mg/dL, Near optimal/above optimal 160-189 mg/dL, Borderline high 190-219 mg/dL, High >219 mg/dL, Very high Secondary prevention optimal non HDL Cholesterol levels are recommended to be <100 mg/dL Performed By: #### L IPNF, 46274-7 ####[facility] LABORATORYCLIA [id number] [address] T CHOL/HDL RATIO NF 2.75 mg/dL Normal <5.10 [facility] Comment on above: Order Comment: Rj michel Type: BLOOD SPECIMENOrdering Facility: [facility] Address: [address] [place] [address] Performed By: #### L IPNF, 30754-8 ####CH[facility]AL LABORATORYCLIA [id number] [place] [address] [place] [facility] TRIGLYCERIDES, NF 73 mg/dL Normal <150 [facility] Comment on above: Order Comment: Speci men Type: BLOOD SPECIMENOrdering Facility: [facility] Address: [address] [place] [address] Result Comment: <150 mg/dL, Normal 150-199 mg/dL, Borderline high 200-499 mg/dL, High >499 mg/dL, Very high Performed By: #### L IPVIKTOR, 28645-4 ####[facility] LABORATORYCLIA [id number] [place] [address] [place] VLDL CHOLESTEROL, NF 15 mg/dL Normal <30 [facility] Comment on above: Order Comment: Speci men Type: BLOOD SPECIMENOrdering Facility: [facility] Address: [address] [place] [address] Performed By: #### L IPNF, 64651-7 ####[facility]AL LABORATORYCLIA [id number] [place] [address] [place] No Panel Informationon 07-08 [facility] T4 Free SerPl-mCncon 024 Free T4 [Mass/Vol] 1.3 ng/dL Normal 0.9-1.7 [facility] Comment on above: Order Comment: Speci men Type: BLOOD SPECIMENOrdering Facility: [facility] Address: [address] [place] [address] Performed By: #### 3 024-7, 3016-3 ####[facility] LABCLIA [id number] [place] [address] [place] TSH SerPl-aCncon 07-01-2023 TSH Qn 1.680 m[IU]/L Normal 0.270-4.200 [facility] Comment on above: Order Comment: Speci men Type: BLOOD SPECIMENOrdering Facility: [facility] Address: [address] [place] [address] Performed By: #### 3 024-7, 3016-3 ####[facility] LABVITALIY [id number] [address] [place] [id number] [address] [place] CNOVon 06-30-2023 CNOV Office Visit (CARDMM ) MERNA WEBSTER ([id number]) 1940 F NFR Date Time Provider Department 06/30/23 3:00 PM MOUNA BAEZ CARDMM During your visit today, we recorded the following information about you: Pulse Blood pressure Weight Height 76/minute 146/72 65.8 kg 1.575 m Mouna Baez, FLOOR ATTENDANT.SAND MILL OPERATOR 07/03/2023 12:57 PM Signed [facility] [place] Shadia Newman Department of Cardiovascular Medicine SECTION [...] home 1120-140's Has PCP follow up scheduled 5/17 Will get updated thyroid studies Less palpitations [...] which included preparing to see the patient, kvje-en-fyud patient care, completing clinical documentation, performing a medically appropriate examination, counseling and educating the patient/family/caregive r, ordering medications, tests, or procedures, communicating with other HCPs (not separately reported), and communicating results to the patient/family/caregive r. Thank you very much for allowing me to assist in the care of Merna Merced Webster. The above information was discussed at length and detail with the patient who verbalized an understanding of the plan and was given ample opportunity to ask questions. The appropriate follow up has been arranged. I have advised the patient to contact me if any questions/problems arise prior to the follow up. Mouna Baez, DAKOTAH.[facility] Cardiology Nurse Practitioner Section of Regional Cardiology [facility] Dept of Cardiovascular Medicine [facility] [place] [address] Office Office June 30, 2023 3:07 PM This note was partially generated using [employer] voice recognition system and may contain errors related to that system including grammar, punctuation, spelling, and words that may be inappropriate. CARDIAC S (more content not included)... Normal [facility] Jamie 06-19-2023 [facility] ([facility]) JAMILMERNA Blackwood ([id number]) 1940 F NFR Date Time Provider Department 06/19/23 SONA GRIER [facility] During your visit today, we recorded the following information about you: Elisabeth Barber MA 06/19/2023 10:28 AM Signed Orders from [employer] for A7039, A7034, A7038, A7036, A7037, A7046, A9279, E0562, E0601 A7035, A7032 all for c-pap supplies placed in Dr. Grier's in basket. Elisabeth Barber MA 06/22/2023 9:51 AM Signed Forms faxed back to [facility]. Transmission with forms in drawer. Allergies [...] (FLONASE) 50 mcg/actuation nasal spray Use 1 [place] in each nostril once daily. - betamethasone [...] [M16.10] 09/04/2005 Pes anserinus tendinitis or bursitis [CQJ7292] 09/04/2005 07/22/2017 PLANTAR FIBROMATOSIS [M72.2] 09/04/2005 Backache, unspecified [M54.9] 09/24/2005 04/23/2017 Thoracic or lumbosacral neuritis or radiculitis*09/24/2005 07/22/2017 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 Normal [facility] CNPNon 05-27-2023 CNPN Telephone ([facility]) MERNA WEBSTER ([id number]) 1940 F NFR Date Time Provider Department 05/27/23 СЕРГЕЙ ESPINOZA [facility] During your visit today, we recorded the following information about you: Cristina Jasso, GEOFFREY 05/27/2023 8:05 PM Signed Pt LM on [...] (FLONASE) 50 mcg/actuation nasal spray Use 1 [place] in each nostril once daily. - betamethasone [...] Primary osteoarthritis (more content not included)... Normal [facility] CNPNon 05-26-2023 CNPN Telephone ([facility]) JAMILMERNA ([id number]) 1940 F NFR Date Time Provider Department [...] [E03.9] Order(s):T4 FREE/FREE THYROX [SQFT4] Order #: [id number] FUTURE TSH BLD [SQTSH] Order #: [id number] FUTURE VITAMIN B12 BLOOD [SQB12] Order #: [id number] FUTURE FOLATE SERUM [SQSERFOL] Order #: [id number] FUTURE levothyroxine (SYNTHROID) 75 mcg tabletTake 0.5 [...] (FLONASE) 50 mcg/actuation nasal spray Use 1 [place] in each nostril once daily. - betamethasone [...] % (flush (more content not included)... Normal [facility] Folate SerPl-denveron 05-26-19 24 Folate [Mass/Vol] ng/mL Normal >4.7 [facility] Comment on above: Order Comment: Speci men Type: URINE SPECIMEN [facility] Address: [address] [place] [address] Result Comment: A re sult of > 20 ng/mL is not necessarily indicative of a pathologic or treatable condition: it reflects a limitation of the test methodology. Assay reference range: 4.8 to 24.2 ng/mL. Suitable for detection of folate deficiency. Reference: Folate III (Folate III) [package insert V 1.0 [place]]. Kendal Cordia, [place], [place]: December 2014. Performed By: #### 2 695-5 #### [facility] CLIA [id number] [address] [place] [address] [place] Vit B12 SerPl-ncon 024 Cobalamin (Vitamin B12) [Mass/Vol] 866 pg/mL Normal 232-1245 [facility] Comment on above: Order Comment: Speci men Type: URINE SPECIMEN [facility] Address: [address] [place] [address] Performed By: #### 2 695-5 #### [facility] CLIA [id number] [address] [place] [address] [place] Bacteria Ur Culton Bacteria identified Cx Nom (U) ORGANISM ID: 1 10,000 -<50,000 CFU/ml Normal urogenital singh Normal [facility] Comment on above: Performed By: #### 6 30-4 ####[facility] LABCLIA [id number] [place] [address] [place] CBC panel Auto (Bld)on 05-24 Erythrocyte distribution width (RBC) [Ratio] 13.0 % Normal 11.5-15.0 [facility] Comment on above: Order Comment: Speci men Type: URINE SPECIMEN [facility] Address: [address] [place] [address] Performed By: #### 2 695-5 #### [facility] CLIA [id number] [address] [place] [address] [place] Hematocrit (Bld) [Volume fraction] 36.1 % Normal 36.0-46.0 [facility] Comment on above: Order Comment: Speci men Type: URINE SPECIMEN [facility] Address: [address] [place] [address] Performed By: #### 2 695-5 #### [facility] CLIA [id number] [address] [place] [address] [place] Hemoglobin (Bld) [Mass/Vol] 11.8 g/dL Normal 11.5-15.5 [facility] Comment on above: Order Comment: Speci men Type: URINE SPECIMEN [facility] Address: [address] [place] [address] Performed By: #### 2 695-5 #### [facility] CLIA [id number] [address] [place] [address] [place] MCH (RBC) [Entitic mass] 33.4 pg Normal 26.0-34.0 [facility] Comment on above: Order Comment: Speci men Type: URINE SPECIMEN [facility] Address: [address] [place] [address] Performed By: #### 2 695-5 #### [facility] CLIA [id number] [address] [place] [address] [place] MCHC (RBC) [Mass/Vol] 32.7 g/dL Normal 30.5-36.0 [facility] Comment on above: Order Comment: Speci men Type: URINE SPECIMEN [facility] Address: [address] [place] [address] Performed By: #### 2 695-5 #### [facility] CLIA [id number] [address] [place] [address] [place] MCV (RBC) [Entitic vol] 102.3 fL High 80.0-100.0 [facility] Comment on above: Order Comment: Speci men Type: URINE SPECIMEN Ordering Facility: [facility] Address: [address] [place] [address] Performed By: #### 2 695-5 #### [facility] CLIA [id number] [address] [place] [address] [place] Nucleated RBC (Bld) [#/Vol] 10*3/uL Normal <0.01 [facility] Comment on above: Order Comment: Speci men Type: URINE SPECIMEN Ordering Facility: [facility] Address: [address] [place] [address] Performed By: #### 2 695-5 #### [facility] CLIA [id number] [address] [place] [address] [place] Platelet mean volume (Bld) [Entitic vol] 9.5 fL Normal 9.0-12.7 [facility] Comment on above: Order Comment: Speci men Type: URINE SPECIMEN Ordering Facility: [facility] Address: [address] [place] [address] Performed By: #### 2 695-5 #### [facility] CLIA [id number] [address] [place] [address] [place] Platelets (Bld) [#/Vol] 239 10*3/uL Normal 150-400 [facility] Comment on above: Order Comment: Speci men Type: URINE SPECIMEN Ordering Facility: [facility] Address: [address] [place] [address] Performed By: #### 2 695-5 #### [facility] CLIA [id number] [address] [place] [address] [place] RBC (Bld) [#/Vol] 3.53 10*6/uL Low 3.90-5.20 [facility] Comment on above: Order Comment: Speci men Type: URINE SPECIMEN Ordering Facility: [facility] Address: [address] [place] [address] Performed By: #### 2 695-5 #### [facility] CLIA [id number] [address] [place] [address] [place] WBC (Bld) [#/Vol] 7.61 10*3/uL Normal 3.70-11.00 [facility] Comment on above: Order Comment: Speci men Type: URINE SPECIMEN Ordering Facility: [facility] Address: [address] [place] [address] [place] [address] Performed By: #### 2 695-5 #### [facility] CLIA [id number] [address] [place] [address] [place] CNOVon 05-25-2023 CNOV Office Visit (IMMDNA ) MERNA WEBSTER ([id number]) 1940 F NFR Date Time Provider Department [...] season) due on 03/16/2023 Callie Taylor MA 05/25/2023 11:28 AM Signed [facility] TEST INFORMATION [facility] HOURS: Lab is open: 7:30am to 5:00pm - , 7:30am to 4:00pm on Thu and 8am -12pm on Thu. The lab is located in [facility] on the first floor. There is a registration window at the lab, available 7 am to 3 pm Thursday - Thursday. If registration is unavailable at the lab, you may register at the patient registration office near the [facility]. SCHEDULING A LAB APPOINTMENT: Laboratory appointments are recommended.Walk ins are still accepted. Call [phone] or schedule via [employer] scheduling ticket. ROUTINE LAB ORDERS 60 days [...] REFILL REQUESTS Request prescription refills through your [employer] account or contact your Pharmacy. My Chart Schedule My Appointment enables you to view your established primary care provider's open schedule and book an appointment online in real-time. This feature is available in internal medicine, family medicine, or pediatrics at any of our [facility] locations and main campus. Сергей Espinoza MD 05/31/2023 9:42 PM Signed ESTABLISHED PATIENT Merna Webster is a 83 year old female presenting for Follow Up. HISTORY OF PRESENT ILLNESS Here with relative Patient thinks she has another UTI. Was recently in [place] [facility]. Had chills the other night. Has [...] 160/80 03/24/2023 157/76 Hoping to get into [facility]ci this summer. Has some issues with ADLs. [...] reflux Hypothyroidi (more content not included)... Normal [facility] Comprehensive metabolic 2000 panelon 05-25-2023 Albumin [Mass/Vol] 4.2 g/dL Normal 3.9-4.9 [facility] Comment on above: Order Comment: Speci men Type: BLOOD SPECIMENOrdering Facility: [facility] Address: [address] [place] [address] Performed By: #### 3 016-3, 53396-5 ####[facility] [id number] [place] [address] [place] ALP [Catalytic activity/Vol] 78 U/L Normal 34-123 [facility] Comment on above: Order Comment: Speci men Type: BLOOD SPECIMENOrdering Facility: [facility] Address: [address] [place] [address] Performed By: #### 3 016-3, 52857-4 ####[facility]ORYCLIA [id number] [place] [address] [place] ALT [Catalytic activity/Vol] 12 U/L Normal 7-38 [facility] Comment on above: Order Comment: Speci men Type: BLOOD SPECIMENOrdering Facility: [facility] Address: [address] [place] [address] Performed By: #### 3 016-3, 11084-5 ####[facility]ORYCLIA [id number] [place] [address] [place] Anion gap [Moles/Vol] 7 mmol/L Low 9-18 [facility] Comment on above: Order Comment: Speci men Type: BLOOD SPECIMENOrdering Facility: [facility] Address: [address] [place] [address] Performed By: #### 3 016-3, 09190-5 ####[facility]ORYCLIA [id number] [place] [address] [place] AST [Catalytic activity/Vol] 18 U/L Normal 13-35 [facility] Comment on above: Order Comment: Speci men Type: BLOOD SPECIMENOrdering Facility: [facility] Address: [address] [place] [address] Performed By: #### 3 016-3, 07537-5 ####[facility]ATORYCLIA [id number] [place] [address] [place] Bilirubin [Mass/Vol] 0.2 mg/dL Normal 0.2-1.3 [facility] Comment on above: Order Comment: Speci men Type: BLOOD SPECIMENOrdering Facility: [facility] Address: [address] [place] [address] Performed By: #### 3 016-3, ####[facility]ATORYCLIA [id number] [place] [address] [place] Calcium [Mass/Vol] 9.5 mg/dL Normal 8.5-10.2 [facility] Comment on above: Order Comment: Speci men Type: BLOOD SPECIMENOrdering Facility: [facility] Address: [address] [place] [address] Performed By: #### 3 016-3, ####[facility]ORYCLIA [id number] [place] [id number] [place] Chloride [Moles/Vol] 96 mmol/L Low 97-105 [facility] Comment on above: Order Comment: Speci men Type: BLOOD SPECIMENOrdering Facility: [facility] Address: [address] [place] [address] Performed By: #### 3 016-3, ####[facility]ATORYCLIA [id number] [place] [address] [place] CO2 [Moles/Vol] 32 mmol/L High 22-30 [facility] Comment on above: Order Comment: Speci men Type: BLOOD SPECIMENOrdering Facility: [facility] Address: [address] [place] [address] Performed By: #### 3 016-3, ####[facility]ATORYCLIA [id number] [place] [address] [place] Creatinine [Mass/Vol] 0.61 mg/dL Normal 0.58-0.96 [facility] Comment on above: Order Comment: Speci men Type: BLOOD SPECIMENOrdering Facility: [facility] Address: [address] [place] [address] Performed By: #### 3 016-3, 81718-7 ####[facility]ORATORYCLIA [id number] [address] [place] Creatinine and Glomerular filtration rate.predicted panel (S/P/Bld) 89 mL/min/1.73m??? Normal >=60 [facility] Comment on above: Order Comment: Speci men Type: BLOOD SPECIMENOrdering Facility: [facility] Address: [address] [place] [address] Result Comment: Arlen mated Glomerular Filtration Rate [...] actual GFR. Performed By: #### 3 016-3, 33803-0 ####[facility] LABORATORYCLIA [id number] [place] [address] [place] Glucose [Mass/Vol] 104 mg/dL High 74-99 [facility] Comment on above: Order Comment: Rj michel Type: BLOOD SPECIMENOrdering Facility: [facility] Address: [address] [place] [address] Result Comment: The [place] Diabetes [employer] (ADA) provides guidance for cutoff [...] Standards of Medical Care in Diabetes 2016, [place] [employer]. Diabetes Care. 2016.39(Suppl 1). Performed By: #### 3 016-3, 42219-1 ####[facility]ORATORYCLIA [id number] [place] [address] [place] Potassium [Moles/Vol] 3.8 mmol/L Normal 3.7-5.1 [facility] Comment on above: Order Comment: Rj michel Type: BLOOD SPECIMENOrdering Facility: [facility] Address: [address] [place] [place] [id number] Performed By: #### 3 016-3, 49680-1 ####[facility]ORATORYCLIA [id number] [place] [address] [place] Protein [Mass/Vol] 6.9 g/dL Normal 6.3-8.0 [facility] Comment on above: Order Comment: Speci men Type: BLOOD SPECIMENOrdering Facility: [facility] Address: [address] [place] [address] Performed By: #### 3 016-3, 57143-2 ####[facility] LABORATORYCLIA [id number] [place] [address] [place] Sodium [Moles/Vol] 135 mmol/L Low 136-144 [facility] Comment on above: Order Comment: Speci men Type: BLOOD SPECIMENOrdering Facility: [facility] Address: [address] [place] [address] Performed By: #### 3 016-3, 66852-3 ####[facility] LABORATORYCLIA [id number] [place] [address] [place] Urea nitrogen [Mass/Vol] 9 mg/dL Normal 7-21 [facility] Comment on above: Order Comment: Speci men Type: BLOOD SPECIMENOrdering Facility: [facility] Address: [address] [place] [address] Performed By: #### 3 016-3, 95034-9 ####[facility]ORATORYCLIA [id number] [place] [address] [place] T4 Free SerPl-mCncon 024 Free T4 [Mass/Vol] 0.8 ng/dL Low 0.9-1.7 [facility] Comment on above: Order Comment: Speci men Type: URINE SPECIMEN [facility] Address: [address] [place] [address] Performed By: #### 2 695-5 #### [facility] CLIA [id number] [address] [place] [address] [id number] [place] [address] [place] TSH SerPl-aCncon 05-25-2023 TSH Qn 8.320 m[IU]/L High 0.270-4.200 [facility] Comment on above: Order Comment: Speci men Type: BLOOD SPECIMENOrdering Facility: [facility] Address: [address] [place] [address] Performed By: #### 3 016-3, 79461-1 ####[facility] LABORATORYCLIA [id number] [place] [address] [place] URINALYSIS, REFLEX MICROSCOP ICon 05-25-2023 Bilirubin Ql (U) Negative Normal Negative [facility] Comment on above: Order Comment: Speci men Type: URINE SPECIMEN Order[facility] Address: [address] [place] [address] Performed By: #### 2 695-5 #### [facility] CLIA [id number] [address] [place] [address] [place] Clarity (Unsp spec) Clear Normal Clear [facility] Comment on above: Order Comment: Speci men Type: URINE SPECIMEN [facility] Address: [address] [place] [address] Performed By: #### 2 695-5 #### [facility] CLIA [id number] [address] [place] [address] [place] Color (U) Yellow Normal Yellow [facility] Comment on above: Order Comment: Speci men Type: URINE SPECIMEN [facility] Address: [address] [place] [address] Performed By: #### 2 695-5 #### [facility] CLIA [id number] [address] [place] [address] [place] Glucose Test strip (U) [Mass/Vol] Negative Normal Negative [facility] Comment on above: Order Comment: Speci men Type: URINE SPECIMEN [facility] Address: [address] [place] [address] Performed By: #### 2 695-5 #### [facility] CLIA [id number] [address] [place], [place] [id number] [place] Hemoglobin Ql (U) Negative Normal Negative [facility] Comment on above: Order Comment: Speci men Type: URINE SPECIMEN [facility] Address: [address] [place] [address] Performed By: #### 2 695-5 #### [facility] CLIA [id number] [address] [place] [address] [place] Ketones Ql (U) Negative Normal Negative [facility] Comment on above: Order Comment: Speci men Type: URINE SPECIMEN [facility] Address: [address] [place] [address] Performed By: #### 2 695-5 #### [facility] CLIA [id number] [address] [place] [address] [place] Leukocyte esterase Test strip Ql (U) Negative Normal Negative [facility] Comment on above: Order Comment: Speci men Type: URINE SPECIMEN [facility] Address: [address] [place] [address] Performed By: #### 2 695-5 #### [facility] CLIA [id number] [address] [place] [address] [place] Nitrite Ql (U) Negative Normal Negative [facility] Comment on above: Order Comment: Speci men Type: URINE SPECIMEN [facility] Address: [address] [place] [address] Performed By: #### 2 695-5 #### [facility] CLIA [id number] [address] [place] [address] [place] pH (U) 6.5 [pH] Normal 5.0-8.0 [facility] Comment on above: Order Comment: Speci men Type: URINE SPECIMEN [facility] Address: [address] [place] [address] Performed By: #### 2 695-5 #### [facility] CLIA [id number] [address] [place] [address] [place] Protein (U) [Mass/Vol] Negative Normal Negative [facility] Comment on above: Order Comment: Speci men Type: URINE SPECIMEN [facility] Address: [address] [place] [address] Performed By: #### 2 695-5 #### [facility] CLIA [id number] [address] [place] [address] [place] Specific gravity (U) [Rel density] 1.010 Normal 1.005-1.030 [facility] Comment on above: Order Comment: Speci men Type: URINE SPECIMEN [facility] Address: [address] [place] [address] Performed By: #### 2 695-5 #### [facility] CLIA [id number] [address] [place] [address] [place] Urobilinogen Ql (U) 0.2 EU/dL Normal 0.2-1.0 EU/dL [facility] Comment on above: Order Comment: Speci men Type: URINE SPECIMEN [facility] Address: [address] [place] [address] Performed By: #### 2 695-5 #### [facility] CLIA [id number] [address] [place] [address] [place] CNOVon 04-23-2023 CNOV Office Visit (LEVON ) MERNA WEBSTER ([id number]) 1940 F NFR Date Time Provider Department 04/23/23 3:00 PM IGOR JOHNSON During your visit today, we recorded the following information about you: Pulse Blood pressure Weight Height 83/minute 160/80 64.2 kg 1.575 m Igor Johnson, DO 04/24/2023 9:54 AM Signed [facility]CTION [facility] CARDIOLOGY [facility] OUTPATIENT VISIT DATE April 23, 2023 PRIMARY CARE PHYSICIAN: Сергей Espinoza [address] [phone] HISTORY OF PRESENT ILLNESS: Ms. Webster is [...] currently alone as her resides in a [facility]ci due to challenges with him having inability [...] vomiting. Endocrine (more content not included)... Normal [facility] 02-17-2023 [facility] Telephone (MEPRAD) JAMILMERNA ([id number]) 1940 F NFR Date Time Provider Department [...] (FLONASE) 50 mcg/actuation nasal spray Use 1 [place] in each nostril two times a day. [...] Resolved P (more content not included)... Normal [facility] ECHOon 01-29-2023 Echocardiography Echocardiography Report: Transthoracic Echo [facility] Date of service: 01/29/2023 2:02:38 PM Ordering physician: SONA GRIER Indication: Suspected pulmonary hypertension Technologist: Sabine Rubio [facility] Interpreting physician: Sherley Singh MD [...] * * * Final * * * [employer] : [id number] ISUID Normal [facility] ECG COMPLETEon 12-08-2022 ECG COMPLETE Ventricular Rate : 8 7 BPM Atrial Rate : 87 BPM P-R Interval : 138 ms QRS Duration : 76 ms Q-T Interval : 368 ms QTC Calculation(Bazett) : 442 ms Calculated P Nikolai : 28 degrees Calculated R Nikolai : -17 degrees Calculated T Nikolai : 26 degrees NORMAL SINUS RHYTHM MINIMAL VOLTAGE CRITERIA FOR LVH, MAY BE NORMAL VARIANT INFERIOR INFARCT , AGE UNDETERMINED POOR R-WAVE PROGRESSION WHEN COMPARED WITH ECG OF 21-DEC-2020 18:39, NO SIGNIFICANT CHANGE WAS FOUND Confirmed by MD SAMANTHA, SHERLEY ([id number]) on 12/08/2022 4:24:11 PM NAME : MERNA WEBSTER PID : [id number] : 1940 Gender : Female Race : ORD : [id number] Procedure Date : Dec 08 2022 14:45:42 Edit Date : Dec 08 2022 16:24:16 Diagnosis: NORMAL SINUS RHYTHM MINIMAL VOLTAGE CRITERIA FOR LVH, MAY BE NORMAL VARIANT INFERIOR INFARCT , AGE UNDETERMINED POOR R-WAVE PROGRESSION WHEN COMPARED WITH ECG OF 21-DEC-2020 18:39, NO SIGNIFICANT CHANGE WAS FOUND Confirmed by MD SINGH QARAB ([id number]) on 12/08/2022 4:24:11 PM Test Reason : Shortness of Breath Location : 0 : CARD Overread By : MD SINGH QARAB Edited By : MD SINGH QARAB Referred By : SONA GRIER Acquired by : Jennyfer Sweeney [facility] No Panel Informationon 11-28 [facility] XR CHEST 2V FRONTAL/LATon XR CHEST 2V FRONTAL/LAT * * *Final Repor t* * * DATE OF EXAM: Nov 28 2022 12:09PM MDX [id number] - XR CHEST 2V FRONTAL/LAT / [...] be identified it could be easily obscured Quality Assurance Director: PSCB Transcribe Date/Time: Nov 28 2022 3:00P Dictated by : FLORIN ROSSI DO This examination was interpreted and the report reviewed and electronically signed by: FLORIN ROSSI DO on Nov 28 2022 3:03PM EST [id number] [facility] XR Knee - bilateral 4 Viewso n 10-26-2022 IMPRESSION: Degenerative changes as discussed Quality Assurance Director: YURIDIA Transcribe Date/Time: Oct 26 2022 1:37P Dictated by : FLORIN ROSSI DO This examination was interpreted and the report reviewed and electronically signed by: FLORIN ROSSI DO on Oct 26 2022 1:38PM EST [facility] * * *Final Report* * * DATE OF EXAM: Oct 24 2022 2:45PM MDO 5618 - XR KNEE 4V AP/PA/LAT/MERCH RYAN / PROCEDURE REASON: [id number] * * * * Physician Interpretation * [...] Left :No fractures or dislocations are seen. [facility] Provider, Pedro stubbs [place] - 10/26/2022 * * *Final Report* * * DATE OF EXAM: Oct 24 2022 2:45PM MDO 5618 - XR KNEE 4V AP/PA/LAT/MERCH RYAN / PROCEDURE REASON: [id number] * * * * Physician Interpretation * [...] seen. IMPRESSION IMPRESSION: Degenerative changes as discussed Quality Assurance Director: YURIDIA Transcribe Date/Time: Oct 26 2022 1:37P Dictated by : FLORIN ROSSI DO This examination was interpreted and the report reviewed and electronically signed by: FLORIN ROSSI DO on Oct 26 2022 1:38PM EST [facility] XR Knee - bilateral 4 ViewsO rdered By: Ccf Provider on 10-26-2022 [facility] XR Shoulder - right 3 Viewso n 10-26-2022 IMPRESSION: Findings as discussed under Results portion of report. Quality Assurance Director: YURIDIA Transcribe Date/Time: Oct 26 2022 1:30P Dictated by : FLORIN ROSSI DO This examination was interpreted and the report reviewed and electronically signed by: FLORIN ROSSI DO on Oct 26 2022 1:37PM [facility] * * *Final Report* * * [...] within the joint space. Marked bony demineralization [facility] Provider, Pedro [facility] - 10/26/2022 * * *Final Report* * [...] as discussed under Results portion of report. Quality Assurance Director: YURIDIA Transcribe Date/Time: Oct 26 2022 1:30P Dictated by : FLORIN ROSSI DO This examination was interpreted and the report reviewed and electronically signed by: FLORIN ROSSI DO on Oct 26 2022 1:37PM EST [facility] XR Shoulder - right 3 ViewsO rdered By: Ccf Provider on 10-26-2022 [facility] No Panel Informationon 10-24 Radiology Study observation (narrative) [facility] XR KNEE 4V AP/PA/LAT/MERCH B ILon 10-24-2022 XR KNEE 4V AP/PA/LAT/MERCH RYAN * * *Final Report* * * DATE OF EXAM: Oct 24 2022 2:45PM MARY JO 5618 - XR KNEE 4V AP/PA/LAT/MERCH RYAN / PROCEDURE REASON: [id number] * * * * Physician Interpretation * [...] are seen. IMPRESSION: Degenerative changes as discussed Quality Assurance Director: PSCB Transcribe Date/Time: Oct 26 2022 1:37P Dictated by : FLORIN ROSSI DO This examination was interpreted and the report reviewed and electronically signed by: FLORIN ROSSI DO on Oct 26 2022 1:38PM EST [id number] [facility] XR SHLDR >/=3V AP/FRANCO AP/OTH R RTon [...] as discussed under Results portion of report. Quality Assurance Director: YURIDIA Transcribe Date/Time: Oct 26 2022 1:30P Dictated by : FLORIN ROSSI DO This examination was interpreted and the report reviewed and electronically signed by: FLORIN ROSSI DO on Oct 26 2022 1:37PM EST [id number] [facility] No Panel Informationon 09-03 [facility] CBC panel Auto (Bld)on 08-22 Erythrocyte distribution width (RBC) [Ratio] 12.9 % 11.5 - 15.0 % [facility] Hematocrit (Bld) [Volume fraction] 35.7 % Low 36.0 - 46.0 % [facility] Hemoglobin (Bld) [Mass/Vol] 11.8 g/dL 11.5 - 15.5 g/dL [facility] MCH (RBC) [Entitic mass] 33.5 pg 26.0 - 34.0 pg [facility] MCHC (RBC) [Mass/Vol] 33.1 g/dL 30.5 - 36.0 g/dL [facility] MCV (RBC) [Entitic vol] 101.4 fL High 80.0 - 100.0 fL [facility] Nucleated RBC (Bld) [#/Vol] <0.01 k/uL [facility] Platelet mean volume (Bld) [Entitic vol] 8.7 fL Low 9.0 - 12.7 fL [facility] Platelets (Bld) [#/Vol] 233 10*3/uL 150 - 400 k/uL [facility] RBC (Bld) [#/Vol] 3.52 10*6/uL Low 3.90 - 5.2 0 m/uL [facility] WBC (Bld) [#/Vol] 7.57 10*3/uL 3.70 - 11. 00 k/uL [facility] Comprehensive metabolic 2000 panelon 08-22-2022 Albumin [Mass/Vol] 3.9 g/dL 3.9 - 4.9 g/dL [facility] ALP [Catalytic activity/Vol] 94 U/L 34 - 123 U/L [facility] ALT [Catalytic activity/Vol] 10 U/L 7 - 38 U/L [facility] Anion gap [Moles/Vol] 8 mmol/L Low 9 - 18 mmol/L [facility] AST [Catalytic activity/Vol] 16 U/L 13 - 35 U/L [facility] Bilirubin [Mass/Vol] 0.2 mg/dL 0.2 - 1 .3 mg/dL [facility] Calcium [Mass/Vol] 9.3 mg/dL 8.5 - 10. 2 mg/dL [facility] Chloride [Moles/Vol] 101 mmol/L 97 - 10 5 mmol/L [facility] CO2 [Moles/Vol] 30 mmol/L 22 - 30 mmol/L [facility] Creatinine [Mass/Vol] 0.61 mg/dL 0.58 - 0.96 mg/dL [facility] Estimated Glomerular Filtration Rate 90 mL/min/1.73m >=60 mL/min/1.73m [facility] Glucose [Mass/Vol] 98 mg/dL 74 - 99 mg/dL [facility] Potassium [Moles/Vol] 4.3 mmol/L 3.7 - 5.1 mmol/L [facility] Protein [Mass/Vol] 7.2 g/dL 6.3 - 8.0 g/dL [facility] [facility] Sodium [Moles/Vol] 139 mmol/L 136 - 144 mmol/L [facility] Urea nitrogen [Mass/Vol] 11 mg/dL 7 - 21 mg/dL [facility] TSH BLDon 08-22-2022 TSH Qn 2.480 m[IU]/L 0.270 - 4.200 mIU/L [facility] CT CHEST WO IVCONon 07-10-19 CT CHEST WO IVCON * * *Final Report* * * DATE OF EXAM: Jul 09 2022 4:25PM [facility] 0541 - CT CHEST WO IVCON / [...] No abnormality in the imaged upper abdomen. Trashman (topogram) images: No additional findings. IMPRESSION: 1. 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 No significant interval change 2. No definite nodules are seen on this study 3. Findings are again compatible with Pulmonary arterial hypertension Quality Assurance Director: YURIDIA Silverribe Date/Time: Jul 16 2022 1:20P Dictated by : FLORIN ROSSI DO This examination was interpreted and the report reviewed and electronically signed by: FLORIN ROSSI DO on Jul 16 2022 1:43PM EST [id number] Normal [facility] XR Pelvis and Hip - right AP and Lateral frogon 05-24-2022 IMPRESSION: Advanced right hip osteoarthritis Quality Assurance Director: PSCB Transcribe Date/Time: May 24 2022 1:37P Dictated by : PALOMA MOLINA MD This examination was interpreted and the report reviewed and electronically signed by: PALOMA MOLINA MD on May 24 2022 1:38PM EST [facility] * * *Final Report* * * [...] Sacroiliac joints and symphysis pubis are maintained. [facility] Provider, Pedro Sarkar - 05/24/2022 * * *Final Report* * [...] maintained. IMPRESSION IMPRESSION: Advanced right hip osteoarthritis Quality Assurance Director: PSCB Transcribe Date/Time: May 24 2022 1:37P Dictated by : PALOMA MOLINA MD This examination was interpreted and the report reviewed and electronically signed by: PALOMA MOLINA MD on May 24 2022 1:38PM EST [facility] XR Pelvis and Hip - right AP and Lateral frogOrdered By: Ccf Provider on 05-24-2022 [facility] XR HIP 3V PELV+ AP/LAT RTon 05-22-2022 [...] are maintained. IMPRESSION: Advanced right hip osteoarthritis Quality Assurance Director: PSCB Transcribe Date/Time: May 24 2022 1:37P Dictated by : PALOMA MOLINA MD This examination was interpreted and the report reviewed and electronically signed by: PALOMA MOLINA MD on May 24 2022 1:38PM EST [id number] Normal [facility] XR Pelvis and Hip - right AP and Lateral frogon 05-22-2022 Radiology Study observation (narrative) [facility] TSH BLDon 05-08-2022 TSH Qn 2.450 m[IU]/L 0.270 - 4.200 mIU/L [facility] TSH SerPl-aCncon 05-08-2022 TSH Qn 2.450 m[IU]/L Normal 0.270-4.200 [facility] Comment on above: Order Comment: Speci men Type: BLOOD SPECIMENOrdering Facility: [facility] Address: [address] [place] [id number] Performed By: #### 3 016-3 ####[facility] [id number] [place] [address] [place] Office Visit (Urgent Care)on 04-20-2022 Follow-up visit Diagnoses/Problems Assessed Shingles (053.9) (B02.9) Orders Shingles Start: Acyclovir 800 MG Oral Tablet; TAKE 1 TABLET EVERY 4 HOURS, 5 TIMES DAILY FOR 7 TO 10 DAYS Rx By: Tommy Owusu; Dispense: 10 Days ; #:50 Tablet; Refill: 0;For: Shingles; TARYN = N; Verified Transmission to [employer] 1893; Last Updated By: System, Luminate; 04/20/2022 2:20:49 PM Provider Impressions Physical exam findings as noted above. Patient's painful erythematous rash is entirely consistent with the left facial dermatome strongly suggesting herpes zoster infection. There is no evidence of ocular involvement at this time. Patient was provided with a prescription for acyclovir 800 mg and supportive care instructions were discussed. 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 Over the last 2 weeks have you felt down, depressed or hopeless? (If yes, answer PHQ-9 below)No PHQ-2 #2. Over the last 2 weeks have you felt little interest or pleasure in doing things? (If yes, answer PHQ-9 below)No Falls Screening (Age 18+)a) No falls within the last year O2 Wqppeuhlss73, Nasal Cannula Pain Scale0 Physical Exam Constitutional: Well developed, well nourished. vital signs reviewed. patient alert patient without distress Head and Face: Head and face: Abnormal. Palpation of the face and sinuses: Abnormal. Eyes: Normal external exam - pupils were equal in size, round, reactive to light (PERRL) with normal accommodation and extraocular move (more content not included)... 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 No acute osseous abnormality identified involving the sacrum or coccyx. Mild osteoarthrosis of the right knee. Quality Assurance Director: YURIDIA Transcribe Date/Time: Dec 31 2021 3:07P Dictated by : ALESSANDRA SIMON MD This examination was interpreted and the report reviewed and electronically signed by: ALESSANDRA SIMON MD on Dec 31 2021 3:10PM [facility] No Panel InformationOrdered By: Ccf Provider on 12-31-2021 [facility] XR Knee - right 4 Viewson * [...] of right knee RIGHT KNEE PAIN (accession [id number]), LOW BACK PAIN (accession [id number]), LOW BACK PAIN (accession [id number]) TECHNIQUE: Images: XR KNEE 4V AP/PA BOTH+LAT/CAREN [...] levels in the lumbar spine. No fracture. Gfxd-sa-radk of the right femoral head and acetabulum. Degenerative cyst formation on the right femoral head and acetabulum. Osteophyte formation on the left superior acetabulum. Sacrum/coccyx RESULT: SI joints. Tach. No erosions are seen. Subchondral sclerosis subjacent to the SI joints. No fracture or dislocation. The remainder of the imaged bony pelvis appears to be intact. [facility] * * *Final Report* [...] of right knee RIGHT KNEE PAIN (accession [id number]), LOW BACK PAIN (accession [id number]), LOW BACK PAIN (accession [id number]) TECHNIQUE: Images: XR KNEE 4V AP/PA BOTH+LAT/CAREN [...] levels in the lumbar spine. No fracture. Klmq-sa-xzdd of the right femoral head and acetabulum. [...] coccyx. Mild osteoarthrosis of the right knee. Quality Assurance Director: [employer] Transcribe Date/Time: Dec 31 2021 3:07P Dictated by : ALESSANDRA SIMNO MD This examination was interpreted and the report reviewed and electronically signed by: ALESSANDRA SIMON MD on Dec 31 2021 3:10PM [facility] XR Lumbar spine 3 Viewson * * *Final Report* * * DATE OF EXAM: Dec 30 2021 3:14PM [facility] 5228 - XR LUMBAR 3V AP/LAT/L5-S1 / PROCEDURE REASON: M54.10-Radicular low back pain * * * * Physician Interpretation * * * * Right knee, lumbar spine, and sacrum/coccygeal radiographs HISTORY: 81 years old Clinical information: Chronic pain of right knee Chronic pain of right knee RIGHT KNEE PAIN (accession [id number]), LOW BACK PAIN (accession [id number]), LOW BACK PAIN (accession [id number]) TECHNIQUE: Images: XR KNEE 4V AP/PA BOTH+LAT/CAREN [...] levels in the lumbar spine. No fracture. Cbws-vp-bbxc of the right femoral head and acetabulum. Degenerative cyst formation on the right femoral head and acetabulum. Osteophyte formation on the left superior acetabulum. Sacrum/coccyx RESULT: SI joints. Tach. No erosions are seen. Subchondral sclerosis subjacent to the SI joints. No fracture or dislocation. The remainder of the imaged bony pelvis appears to be intact. [facility] Provider, [facility] - 12/31/2021 * * *Final Report* * * DATE OF EXAM: Dec 30 2021 3:14PM [facility]228 - XR LUMBAR 3V AP/LAT/L5-S1 / PROCEDURE REASON: M54.10-Radicular low back pain * * * * Physician Interpretation * * * * Right knee, lumbar spine, and sacrum/coccygeal radiographs HISTORY: 81 years old Clinical information: Chronic pain of right knee Chronic pain of right knee RIGHT KNEE PAIN (accession [id number]), LOW BACK PAIN (accession [id number]), LOW BACK PAIN (accession [id number]) TECHNIQUE: Images: XR KNEE 4V AP/PA BOTH+LAT/CAREN [...] levels in the lumbar spine. No fracture. Ksgm-cm-wxsg of the right femoral head and acetabulum. [...] coccyx. Mild osteoarthrosis of the right knee. Quality Assurance Director: PSCB Transcribe Date/Time: Dec 31 2021 3:07P Dictated by : ALESSANDRA SIMON MD This examination was interpreted and the report reviewed and electronically signed by: ALESSANDRA SIMON MD on Dec 31 2021 3:10PM [facility] XR Sacrum and Coccyx 3 Views [...] of right knee RIGHT KNEE PAIN (accession [id number]), LOW BACK PAIN (accession [id number]), LOW BACK PAIN (accession [id number]) TECHNIQUE: Images: XR KNEE 4V AP/PA BOTH+LAT/CAREN [...] levels in the lumbar spine. No fracture. Tcma-oi-zjjf of the right femoral head and acetabulum. Degenerative cyst formation on the right femoral head and acetabulum. Osteophyte formation on the left superior acetabulum. Sacrum/coccyx RESULT: SI joints. Tach. No erosions are seen. Subchondral sclerosis subjacent to the SI joints. No fracture or dislocation. The remainder of the imaged bony pelvis appears to be intact. [facility] Provider, [facility] - 12/31/2021 * * *Final Report* [...] of right knee RIGHT KNEE PAIN (accession [id number]), LOW BACK PAIN (accession [id number]), LOW BACK PAIN (accession [id number]) TECHNIQUE: Images: XR KNEE 4V AP/PA BOTH+LAT/CAREN [...] levels in the lumbar spine. No fracture. Jtpk-ax-fcar of the right femoral head and acetabulum. [...] coccyx. Mild osteoarthrosis of the right knee. Quality Assurance Director: YURIDIA Transcribe Date/Time: Dec 31 2021 3:07P Dictated by : ALESSANDRA SIMON MD This examination was interpreted and the report reviewed and electronically signed by: ALESSANDRA SIMON MD on Dec 31 2021 3:10PM EST [facility] No Panel Informationon 12-30 Radiology Study observation (narrative) [facility] XR Knee - right 4 Viewson Radiology Study observation (narrative) [facility] CBC panel Auto (Bld)on 05-30 Erythrocyte distribution width (RBC) [Ratio] 13.2 % 11.5 - 15.0 % [facility] Hematocrit (Bld) [Volume fraction] 36.5 % 36.0 - 46.0 % [facility] Hemoglobin (Bld) [Mass/Vol] 11.7 g/dL 11.5 - 15.5 g/dL [facility] MCH (RBC) [Entitic mass] 31.5 pg 26.0 - 34.0 pg [facility] MCHC (RBC) [Mass/Vol] 32.1 g/dL 30.5 - 36.0 g/dL [facility] MCV (RBC) [Entitic vol] 98.1 fL 80.0 - 100.0 fL [facility] Nucleated RBC (Bld) [#/Vol] 10*3/uL <0.01 k/uL [facility] Platelet mean volume (Bld) [Entitic vol] 9.5 fL 9.0 - 12.7 fL [facility] Platelets (Bld) [#/Vol] 232 10*3/uL 150 - 400 k/uL [facility] RBC (Bld) [#/Vol] 3.72 10*6/uL Low 3.90 - 5.2 0 m/uL [facility] WBC (Bld) [#/Vol] 9.24 10*3/uL 3.70 - 11. 00 k/uL [facility] Comprehensive metabolic 2000 panelon 05-30-2021 Albumin [Mass/Vol] 3.9 g/dL 3.9 - 4.9 g/dL [facility] ALP [Catalytic activity/Vol] 97 U/L 34 - 123 U/L [facility] ALT [Catalytic activity/Vol] 8 U/L 7 - 38 U/L [facility] Anion gap [Moles/Vol] 5 mmol/L Low 9 - 18 mmol/L [facility] AST [Catalytic activity/Vol] 23 U/L 13 - 35 U/L [facility] Bilirubin [Mass/Vol] 0.2 mg/dL 0.2 - 1 .3 mg/dL [facility] Calcium [Mass/Vol] 9.3 mg/dL 8.5 - 10. 2 mg/dL [facility] Chloride [Moles/Vol] 99 mmol/L 97 - 10 5 mmol/L [facility] CO2 [Moles/Vol] 30 mmol/L 22 - 30 mmol/L [facility] Creatinine [Mass/Vol] 0.65 mg/dL 0.58 - 0.96 mg/dL [facility] Estimated Glomerular Filtration Rate 89 mL/min/1.73m >=60 mL/min/1.73m [facility] Glucose [Mass/Vol] 85 mg/dL 74 - 99 mg/dL [facility] Potassium [Moles/Vol] 4.7 mmol/L 3.7 - 5.1 mmol/L [facility] Protein [Mass/Vol] 7.5 g/dL 6.3 - 8.0 g/dL [facility] Sodium [Moles/Vol] 134 mmol/L Low 136 - 144 mmol/L [facility] Urea nitrogen [Mass/Vol] 9 mg/dL 7 - 21 mg/dL [facility] LIPID PANEL, NONFASTINGon Cholesterol [Mass/Vol] 166 mg/dL <200 mg/dL [facility] HDL Cholesterol, Nonfasting 61 mg/dL >39 mg/dL [facility] LDL Cholesterol, Nonfasting 77 mg/dL <100 mg/dL [facility] LDL/HDL Ratio, Nonfasting 1.26 mg/dL <2.54 mg/dL [facility] Non HDL Cholesterol, Nonfasting 105 mg/dL <130 mg/dL [facility] Total Chol/HDL Ratio, Nonfasting 2.72 mg/dL <5.10 mg/dL [facility] Triglycerides, Nonfasting 141 mg/dL <150 mg/dL [facility] VLDL Cholesterol, Nonfasting 28 mg/dL <30 mg/dL [facility] TSH BLDon 05-30-2021 TSH Qn 1.450 m[IU]/L 0.270 - 4.200 mIU/L [facility] CNPChristina 12-24-2020 CNPN Telephone ([facility]) MERNA WEBSTER ([id number]) 1940 F NFR Date Time Provider Department 12/24/20 JIGRA GRAHAM [facility] During your visit today, we recorded the [...] (FLONASE) 50 mcg/actuation nasal spray Use 1 [place] in each nostril daily at bedtime. - [...] [M15.9] 09/04/2005 Pes anserinus tendinitis or bursitis [[id number]] 09/04/2005 07/22/2017 PLANTAR FIBROMATOSIS [M72.2] 09/04/2005 Backache, [...] [F41.9] 07/22/2017 Idiopathic pulmonary fibrosis (HCC) [J84.112] 10/ (more content not included)... Normal [facility] Large Joint Arthro/Inj: R kn ee joint [facility] Vital Signs Date Time Vital Sign Value Performing Clinician Facility 09-14-2024 15:09-0400 Body height [address] Сергей Espinoza MD Work Phone: [facility] 09-14-2024 14:56-0400 Body height [address] Сергей Espinoza MD Work Phone: [facility] 09-25-2023 13:50-0400 Body mass index (BMI) [Ratio] 24.31 kg/m2 Mouna Vuong APRN.SAND MILL OPERATOR Work Phone: [facility] 09-25-2023 13:50-0400 Body weight 60.3 kg Mouna Vuong APRN.SAND MILL OPERATOR Work Phone: [facility] 09-25-2023 13:50-0400 Diastolic blood pressure 86 mm[Hg] Mouna Vuong APRN.SAND MILL OPERATOR Work Phone: [facility] Comment on above: Patient is newly on B/p medication monit ored TID at [facility] Facility 09-25-2023 13:50-0400 Heart rate 79 /min Mouna Vuong APRN.SAND MILL OPERATOR Work Phone: [facility] 09-25-2023 13:50-0400 SaO2% (BldA) [Mass fraction] 99 % Mouna Vuong APRN.SAND MILL OPERATOR Work Phone: [facility] Comment on above: patient is on 3 liters of portable Oxyge n 09-25-2023 13:50-0400 Systolic blood pressure 167 mm[Hg] Mouna Vuong APRN.SAND MILL OPERATOR Work Phone: [facility] Comment on above: Patient is newly on B/p medication monit ored TID at [facility] Facility 07-09-2023 08:28-0400 Diastolic blood pressure 80 mm[Hg] Сергей Espinoza MD Work Phone: [facility] 07-09-2023 08:28-0400 Systolic blood pressure 130 mm[Hg] Сергей Espinoza MD Work Phone: [facility] 07-09-2023 08:120400 Body height 157.5 cm Сергей Espinoza MD Work Phone: [facility] 07-09-2023 08:12-0400 Body mass index (BMI) [Ratio] 25.08 kg/m2 Сергей sEpinoza MD Work Phone: [facility] 07-09-2023 08:120400 Body temperature 97.11 [degF] Сергей Espinoza MD Work Phone: [facility] 07-09-2023 08:120400 Body weight 62.2 kg Сергей Espinoza MD Work Phone: [facility] 07-09-2023 08:12-0400 Heart rate 82 /min Сергей Espinoza MD Work Phone: [facility] 07-09-2023 08:120400 Respiratory rate 16 /min Сергей Espinoza MD Work Phone: [facility] 07-09-2023 08:12-0400 SaO2% (BldA) [Mass fraction] 98 % Сергей Espinoza MD Work Phone: [facility] 06-30-2023 15:110400 Body height 157.5 cm Mouna Baez APRN.SAND MILL OPERATOR Work Phone: [facility] 06-30-2023 15:11-0400 Body mass index (BMI) [Ratio] 26.52 kg/m2 Mouna Baez APRN.SAND MILL OPERATOR Work Phone: [facility] 06-30-2023 15:11-0400 Body weight 65.77 kg Mouna Baez APRN.SAND MILL OPERATOR Work Phone: [facility] 06-30-2023 15:11-0400 Diastolic blood pressure 72 mm[Hg] Mouna Don FLOOR ATTENDANT.SAND MILL OPERATOR Work Phone: [facility] 06-30-2023 15:11-0400 Heart rate 76 /min Mouna Baez FLOOR ATTENDANT.SAND MILL OPERATOR Work Phone: [facility] 06-30-2023 15:11-0400 SaO2% (BldA) [Mass fraction] 97 % Mouna Baez FLOOR ATTENDANT.SAND MILL OPERATOR Work Phone: [facility] Comment on above: on 3 L O2 06-30-2023 15:11-0400 Systolic blood pressure 146 mm[Hg] Mouna Baez FLOOR ATTENDANT.SAND MILL OPERATOR Work Phone: [facility] 04-23-2023 15:10-0500 Body height 157.5 cm Igor Johnson DO Work Phone: [facility] 04-23-2023 15:10-0500 Body weight 64.2 kg Igor Johnson DO Work Phone: [facility] 04-23-2023 15:10-0500 Diastolic blood pressure 80 mm[Hg] Igor Johnson DO Work Phone: [facility] 04-23-2023 15:10-0500 Heart rate 83 /min Igor Johnson DO Work Phone: [facility] 04-23-2023 15:10-0500 SaO2% (BldA) [Mass fraction] 96 % Igor Johnson DO Work Phone: [facility] 04-23-2023 15:10-0500 Systolic blood pressure 160 mm[Hg] Igor Johnson DO Work Phone: [facility] 01-19-2023 19:00-0500 Diastolic blood pressure 80 mm[Hg] Сергей Espinoza MD Work Phone: [facility] 01-19-2023 19:00-0500 Systolic blood pressure 152 mm[Hg] Сергей Espinoza MD Work Phone: [facility] 01-19-2023 18:41-0500 Body height 157.5 cm Сергей Espinoza MD Work Phone: [facility] 01-19-2023 18:41-0500 Body temperature 98.29 [degF] Сергей Espinoza MD Work Phone: [facility] 01-19-2023 18:41-0500 Body weight 64.86 kg Сергей Espinoza MD Work Phone: [facility] 01-19-2023 18:41-0500 Heart rate 89 /min Сергей Espinoza MD Work Phone: [facility] 01-19-2023 18:41-0500 Respiratory rate 16 /min Сергей Espinoza MD Work Phone: [facility] 01-19-2023 18:41-0500 SaO2% (BldA) [Mass fraction] 96 % Сергей Espinoza MD Work Phone: [facility] 11-28-2022 10:47-0400 Body weight 63.41 kg Sona Grier MD Work Phone: [facility] 11-28-2022 10:47-0400 Diastolic blood pressure 79 mm[Hg] Sona Grier MD Work Phone: [facility] 11-28-2022 10:47-0400 Heart rate 91 /min Sona Grier MD Work Phone: [facility] 11-28-2022 10:47-0400 SaO2% (BldA) [Mass fraction] 96 % Sona Grier MD Work Phone: [facility] 11-28-2022 10:47-0400 Systolic blood pressure 161 mm[Hg] Sona Grier MD Work Phone: [facility] 09-05-2022 16:15-0400 Diastolic blood pressure 86 mm[Hg] Brinda Dominguez APRN.SAND MILL OPERATOR Work Phone: [facility] 09-05-2022 16:15-0400 Systolic blood pressure 146 mm[Hg] Brinda Dominguez APRN.SAND MILL OPERATOR Work Phone: [facility] 09-05-2022 15:43-0400 Body height 158.8 cm Brinda Rytel FLOOR ATTENDANT.SAND MILL OPERATOR Work Phone: [facility] 09-05-2022 15:43-0400 Body temperature 99.1 [degF] Brinda Banerjeetel FLOOR ATTENDANT.SAND MILL OPERATOR Work Phone: [facility] 09-05-2022 15:43-0400 Body weight 61.6 kg Brinda Banerjeetel FLOOR ATTENDANT.SAND MILL OPERATOR Work Phone: [facility] 09-05-2022 15:43-0400 Heart rate 92 /min Brinda Rytel FLOOR ATTENDANT.SAND MILL OPERATOR Work Phone: [facility] 09-05-2022 15:43-0400 Respiratory rate 19 /min Brinda Banerjeetel FLOOR ATTENDANT.SAND MILL OPERATOR Work Phone: [facility] 09-05-2022 15:43-0400 SaO2% (BldA) [Mass fraction] 96 % Brinda Banerjeetemerced FLOOR ATTENDANT.SAND MILL OPERATOR Work Phone: [facility] 08-22-2022 16:57-0400 Diastolic blood pressure 76 mm[Hg] Сергей Espinoza MD Work Phone: [facility] 08-22-2022 16:57-0400 Systolic blood pressure 142 mm[Hg] Сергей Espinoza MD Work Phone: [facility] 08-22-2022 16:37-0400 Body height 158.8 cm Сергей Espinoza MD Work Phone: [facility] 08-22-2022 16:37-0400 Body temperature 97.81 [degF] Сергей Espinoza MD Work Phone: [facility] 08-22-2022 16:37-0400 Body weight 60.78 kg Сергей Espinoza MD Work Phone: [facility] 08-22-2022 16:37-0400 Heart rate 88 /min Сергей Espinoza MD Work Phone: [facility] 08-22-2022 16:37-0400 Respiratory rate 16 /min Сергей Espinoza MD Work Phone: [facility] 08-22-2022 16:37-0400 SaO2% (BldA) [Mass fraction] 94 % Сергей Espinoza MD Work Phone: [facility] 05-21-2022 13:26-0400 Diastolic blood pressure 70 mm[Hg] Сергей Espinoza MD Work Phone: [facility] 05-21-2022 13:26-0400 Systolic blood pressure 138 mm[Hg] Сергей Espinoza MD Work Phone: [facility] 05-21-2022 13:06-0400 Body height 158.8 cm Сергей Espinoza MD Work Phone: [facility] 05-21-2022 13:06-0400 Body temperature 98.2 [degF] Сергей Espinoza MD Work Phone: [facility] 05-21-2022 13:06-0400 Body weight 62.14 kg Сергей Espinoza MD Work Phone: [facility] 05-21-2022 13:06-0400 Heart rate 99 /min Сергей Espinoza MD Work Phone: [facility] 05-21-2022 13:06-0400 Respiratory rate 16 /min Сергей Espinoza MD Work Phone: [facility] 05-21-2022 13:06-0400 SaO2% (BldA) [Mass fraction] 94 % Сергей Espinoza MD Work Phone: [facility] 05-05-2022 15:26-0500 Diastolic blood pressure 72 mm[Hg] Cordt Skraba FLOOR ATTENDANT.SAND MILL OPERATOR Work Phone: [facility] 05-05-2022 15:26-0500 Systolic blood pressure 168 mm[Hg] Cordt Skraba FLOOR ATTENDANT.SAND MILL OPERATOR Work Phone: [facility] 05-05-2022 15:24-0500 Body height 158.8 cm Cordt Skraba FLOOR ATTENDANT.SAND MILL OPERATOR Work Phone: [facility] 05-05-2022 15:24-0500 Body weight 61.2 kg Cordt Skraba FLOOR ATTENDANT.SAND MILL OPERATOR Work Phone: [facility] 05-05-2022 15:24-0500 Heart rate 88 /min Cordt Skraba FLOOR ATTENDANT.SAND MILL OPERATOR Work Phone: [facility] 05-05-2022 15:24-0500 Respiratory rate 16 /min Cordt Skraba FLOOR ATTENDANT.SAND MILL OPERATOR Work Phone: [facility] 05-05-2022 15:24-0500 SaO2% (BldA) [Mass fraction] 95 % Cordt Skraba FLOOR ATTENDANT.SAND MILL OPERATOR Work Phone: [facility] 04-20-2022 14:02-0500 Body mass index (BMI) [Ratio] 25.86 kg/m2 Unknown Unknown [facility] Work Phone: 04-20-2022 14:02-0500 Body surface area Derived from formula 1.69 m2 Unknown Unknown [facility] Work Phone: 04-20-2022 14:02-0500 Body temperature 100.7 [degF] Unknown Unknown [facility] Work Phone: 04-20-2022 14:02-0500 Body weight 66.23 kg Unknown Unknown [facility] Work Phone: 04-20-2022 14:02-0500 Diastolic blood pressure 78 mm[Hg] Unknown Unknown [facility] Work Phone: 04-20-2022 14:02-0500 Heart rate 96 /min Unknown Unknown [facility] Work Phone: 04-20-2022 14:02-0500 Respiratory rate 20 /min Unknown Unknown [facility] Work Phone: 04-20-2022 14:02-0500 SaO2% (BldA) [Mass fraction] 95 % Unknown Unknown [facility] Work Phone: 04-20-2022 14:02-0500 Systolic blood pressure 162 mm[Hg] Unknown Unknown [facility] Work Phone: 04-20-2022 14:02-0500 0 1 Unknown Unknown [facility] Work Phone: Comment on above: [facility] 03-31-2022 09:59-0500 Diastolic blood pressure 77 mm[Hg] Cordt Skraba FLOOR ATTENDANT.SAND MILL OPERATOR Work Phone: [facility] 03-31-2022 09:59-0500 Heart rate 83 /min Cordt Skraba FLOOR ATTENDANT.SAND MILL OPERATOR Work Phone: [facility] 03-31-2022 09:59-0500 SaO2% (BldA) [Mass fraction] 96 % Cordt Skraba FLOOR ATTENDANT.SAND MILL OPERATOR Work Phone: [facility] 03-31-2022 09:59-0500 Systolic blood pressure 166 mm[Hg] Cordt Skraba FLOOR ATTENDANT.SAND MILL OPERATOR Work Phone: [facility] 02-14-2022 15:02-0500 Diastolic blood pressure 64 mm[Hg] Сергей Espinoza MD Work Phone: [facility] 02-14-2022 15:02-0500 Systolic blood pressure 130 mm[Hg] Сергей Espinoza MD Work Phone: [facility] 02-14-2022 14:34-0500 Body height 160 cm Сергей Espinoza MD Work Phone: [facility] 02-14-2022 14:34-0500 Body temperature 97.5 [degF] Сергей Espinoza MD Work Phone: [facility] 02-14-2022 14:34-0500 Body weight 64.41 kg Сергей Espinoza MD Work Phone: [facility] 02-14-2022 14:34-0500 Heart rate 111 /min Сергей Espinoza MD Work Phone: [facility] 02-14-2022 14:34-0500 Respiratory rate 16 /min Сергей Espinoza MD Work Phone: [facility] 02-14-2022 14:34-0500 SaO2% (BldA) [Mass fraction] 94 % Сергей Espinoza MD Work Phone: [facility] 10-28-2021 13:42-0400 Body height 158.8 cm Sona Grier MD Work Phone: [facility] 10-28-2021 13:42-0400 Body weight 65.8 kg Sona Grier MD Work Phone: [facility] 10-28-2021 13:42-0400 Diastolic blood pressure 75 mm[Hg] Sona Grier MD Work Phone: [facility] 10-28-2021 13:42-0400 Heart rate 78 /min Sona Grier MD Work Phone: [facility] 10-28-2021 13:42-0400 SaO2% (BldA) [Mass fraction] 99 % Sona Grier MD Work Phone: [facility] 10-28-2021 13:42-0400 Systolic blood pressure 148 mm[Hg] Sona Grier MD Work Phone: [facility] 07-24-2021 15:42-0400 Diastolic blood pressure 80 mm[Hg] Kenyon Zuniga APRN.SAND MILL OPERATOR Work Phone: [facility] 07-24-2021 15:42-0400 Systolic blood pressure 139 mm[Hg] Kenyon Zuniga APRN.SAND MILL OPERATOR Work Phone: [facility] 07-24-2021 15:15-0400 Body temperature 97.5 [degF] Kenyon Dwain FLOOR ATTENDANT.SAND MILL OPERATOR Work Phone: [facility] 07-24-2021 15:15-0400 Body weight 65.82 kg Kenyon Dwain FLOOR ATTENDANT.SAND MILL OPERATOR Work Phone: [facility] 07-24-2021 15:15-0400 Heart rate 109 /min Kenyon Zuniga FLOOR ATTENDANT.SAND MILL OPERATOR Work Phone: [facility] 07-24-2021 15:15-0400 Respiratory rate 16 /min Kenyon Zuniga FLOOR ATTENDANT.SAND MILL OPERATOR Work Phone: [facility] 07-24-2021 15:15-0400 SaO2% (BldA) [Mass fraction] 95 % Kenyon Zuniga FLOOR ATTENDANT.SAND MILL OPERATOR Work Phone: [facility] 05-30-2021 15:23-0400 Diastolic blood pressure 78 mm[Hg] Сергей Espinoza MD Work Phone: [facility] 05-30-2021 15:23-0400 Systolic blood pressure 150 mm[Hg] Сергей Espinoza MD Work Phone: [facility] 05-30-2021 14:25-0400 Body height 157.5 cm Сергей Espinoza MD Work Phone: [facility] 05-30-2021 14:25-0400 Body temperature 98.29 [degF] Сергей Espinoza MD Work Phone: [facility] 05-30-2021 14:25-0400 Body weight 65.77 kg Сергей Espinoza MD Work Phone: [facility] 05-30-2021 14:25-0400 Heart rate 101 /min Сергей Espinoza MD Work Phone: [facility] 05-30-2021 14:25-0400 Respiratory rate 16 /min Сергей Espinoza MD Work Phone: [facility] 05-30-2021 14:25-0400 SaO2% (BldA) [Mass fraction] 95 % Сергей Espinoza MD Work Phone: [facility] Encounters Encounter Date Encounter Type Care Provider Facility Start: 10-03-2024 ambulatory Сергей Posadas ty:[facility] Start: 09-14-2024 ambulatory Сергей Posadas ty:[facility] Start: 09-14-2024 Registered Referred Anais Osullivan MD -[facility] Start: 09-13-2024 ambulatory Stacie DELGADO Facility:[facility] Start: 09-13-2024 Registered Referred Stacie navarro RING SPINNER-C [facility] Start: 08-08-2024 End: 08-08-[address] Сергей Espinoza MD Work Phone: [facility] Start: 08-08-2024 End: 08-08-2024 Patient encounter procedure Stacie Chen [facility] Work Phone: Start: 08-02-2024 End: 08-02-[address] Сергей Espinoza MD Work Phone: [facility] Start: 08-02-2024 End: 08-02-[address] Anais Osullivan MD [facility] Work Phone: Start: 07-26-2024 End: 07-26-[address] Сергей Espinoza MD Work Phone: [facility] Start: 07-26-2024 End: 07-26-2024 Patient encounter procedure Stacie Chen [facility] Work Phone: Start: 07-19-2024 End: 07-19-[address] Сергей Espinoza MD Work Phone: [facility] Work Phone: Start: 07-19-2024 End: 07-19-2024 Departed Referred Anais Osullivan MD [facility] Start: 07-19-2024 End: 07-19-2024 ambulatory Anais Osullivan Facility:[facility] Start: 06-30-2024 End: 06-30-[address] Сергей Espinoza MD Work Phone: -[facility] Start: 06-30-2024 End: 06-30-2024 Patient encounter procedure Tj ELIAS -[facility] Work Phone: Start: 05-31-2024 End: 05-31-2024 ambulatory Anais Osullivan Facility:[facility] Start: 05-31-2024 End: 05-31-[address] Anais Osullivan MD -[facility] Work Phone: Start: 05-17-2024 End: 05-17-[address] Сергей Espinoza MD Work Phone: [facility] Work Phone: Start: 05-17-2024 End: 05-17-2024 Departed Referred Stacie DANIELS [facility] Start: 05-17-2024 End: 05-17-2024 ambulatory [place]ергей [place] Facility:[facility] Start: 05-11-2024 End: 05-11-2024 ambulatory [facility] Facility:[facility] Start: 05-11-2024 End: 05-11-2024 Patient encounter procedure Stacie DANIELS [facility] Work Phone: Start: 04-23-2024 ambulatory Anais Kuoi ty:[facility] Start: 04-23-2024 Registered Referred Anais Osullivan MD [facility] Start: 04-21-2024 End: 04-21-2024 ambulatory [facility] Facility:[facility] Start: 04-21-2024 End: 04-21-2024 Patient encounter procedure Stacie DANIELS [facility] Work Phone: Start: 04-19-2024 ambulatory Efshaquille Magallone Facili ty:[facility] Start: 04-19-2024 [facility] Start: 04-07-2024 ambulatory Karlshaquille Rameyjoneskenan Facili ty:[facility] Start: 04-07-2024 Registered Referred Anais Osullivan MD -[facility] Start: 04-05-2024 End: 04-05-2024 ambulatory [facility] Facility:[facility] Start: 04-05-2024 End: 04-05-[address] Anais Osullivan MD -[facility] Work Phone: Start: 03-04-2024 End: 03-04-2024 ambulatory [facility] Facility:[facility] Start: 03-04-2024 End: 03-04-2024 Patient encounter procedure Stacie Chen RING SPINNER-C -[facility] Work Phone: Start: 02-02-2024 End: 02-02-2024 ambulatory [facility] Facility:[facility] Start: 01-25-2024 End: 01-25-2024 Telephone encounter Sona Grier MD Work Phone: Pulmonary Medicine Comment on above: Release Of Medical R ecords (windsor Runner) Start: 01-19-2024 End: 01-19-2024 ambulatory esthersuffieldtim Osullivan Facility:[facility] Start: 01-12-2024 End: 01-12-2024 ambulatory [facility] Facility:[facility] Start: 12-31-2023 End: 12-31-2023 Telephone encounter Sona Grier MD Work Phone: Pulmonary Medicine Comment on above: Orders Start: 12-01-2023 End: 12-01-2023 ambulatory [facility] Facility:[facility] Start: 11-30-2023 End: 11-30-2023 Emergency department patient visit [facility] Facility:[facility] Start: 11-30-2023 End: 11-30-2023 ambulatory [facility] Facility:[facility] Start: 11-03-2023 End: 11-03-2023 ambulatory [facility] Facility:[facility] Start: 10-29-2023 End: 10-29-2023 ambulatory [facility] Facility:[facility] Start: 10-20-2023 ambulatory Anais Kuoi ty:[facility] Start: 09-25-2023 End: 09-25-2023 ambulatory MOUNA VUONG Pulmonary Medicine Comment on above: Spirometry Start: 09-25-2023 End: 09-25-2023 Patient encounter procedure Pulm Fct Lab [facility] Work Phone: Pulmonary Medicine Comment on above: Idiopathic pulmonary fibrosis (HCC) (Primary Dx); Mild persistent asthma without complication; Chronic respiratory failure with hypoxia (HCC); Obstructive sleep apnea; Gastroesophageal reflux disease, unspecified whether esophagitis present Start: 09-25-2023 ambulatory SONA GRIER Facili ty:[facility] Start: 09-18-2023 End: 09-18-2023 ambulatory SONA GRIER Facility:[facility] Start: 09-18-2023 End: 09-18-2023 Subsequent hospital visit by physician [facility] Work Phone: Cat Scan Comment on above: Interstitial pulmona ry disease (HCC) [J84.9] Start: 09-15-2023 Telephone encounter Sona Grier MD Work Phone: Pulmonary Medicine Comment on above: return call Start: 09-07-2023 Refill Sona baldwin MD Work Phone: Pulmonary Medicine Comment on above: Refill Request Start: 09-02-2023 Refill Sona baldwin MD Work Phone: Pulmonary Medicine Comment on above: Refill Request Start: 08-17-2023 Telephone encounter Sona Grier MD Work Phone: Pulmonary Medicine Comment on above: Forms (med[employer] - es briet) Start: 08-11-2023 ambulatory Сергей dolan MD Work Phone: [facility] Comment on above: Medications Start: 08-10-2023 ambulatory Genevieve Fountain LPN NURSE CUSTOMS MANAGER Comment on above: Medication Problem Start: 07-25-2023 ambulatory Сергей dolan MD Work Phone: [facility] Comment on above: Merna rodas edication question Start: 07-24-2023 ambulatory Sona baldwin MD Work Phone: Pulmonary Medicine Start: 07-24-2023 Patient encounter procedure Na smita Grier MD Work Phone: Pulmonary Medicine Comment on above: Appoint ment resched uled Start: 07-22-2023 Telephone encounter Сергей Espinoza MD Work Phone: [facility] Comment on above: Forms (Direction [facility] agency on aging on disabilities ) Start: 07-21-2023 Refill Aide L Tristan intz Jonathan MUNOZN.SAND MILL OPERATOR Work Phone: [facility] Comment on above: Refill Request Start: 07-16-2023 Refill Aide L Tristan intz Jonathan FLOOR ATTENDANT.SAND MILL OPERATOR Work Phone: [facility] Comment on above: Refill Request Start: 07-15-2023 Telephone encounter Neurology Provid er Neurology Comment on above: Received Outside Med ical Records (External referral to Neurological [place]/) Start: 07-14-2023 End: 07-14-2023 Refill Sona Grier MD Work Phone: Pulmonary Medicine Comment on above: Refill Request Fluticasone Start: 07-13-2023 ambulatory Сергей dolan MD Work Phone: [facility] Comment on above: Nurse Triage Call Start: 07-10-2023 Telephone encounter Сергей Espinoza MD Work Phone: [facility] Comment on above: Results Start: 07-09-2023 End: 07-09-2023 ambulatory СЕРГЕЙ ESPINOZA Facility:[facility] Start: 07-09-2023 End: 07-09-2023 Office outpatient visit 25 minutes Сергей Espinoza MD Work Phone: [facility] Comment on above: Primary insomnia (Pr imary Dx); Frequent headaches; Essential hypertension; Mild persistent asthma without complication; Idiopathic pulmonary fibrosis (HCC); Chronic respiratory failure with hypoxia (HCC); Acquired hypothyroidism; Primary osteoarthritis of right hip; Recurrent major depressive disorder, in full remission (HCC); Anxiety; Encounter for immunization Start: 07-06-2023 ambulatory Сергей dolan MD Work Phone: Internal [facility] Comment on above: Blood test Start: 07-01-2023 End: 07-01-2023 ambulatory [facility] Facility:[facility] Start: 06-30-2023 End: 06-30-2023 Office outpatient visit 25 minutes Mouna Baez APRN.SAND MILL OPERATOR Work Phone: Cardiology Comment on above: Essential hypertensi on (Primary Dx); Pure hypercholesterolemia; Chronic respiratory failure with hypoxia (HCC); Obstructive sleep apnea; Palpitations Start: 06-30-2023 End: 06-30-2023 ambulatory Сергей Espinoza MD Work Phone: Internal [facility] [place] Start: 06-26-2023 ambulatory Sona baldwin MD Work Phone: Pulmonary Medicine Comment on above: Coughing Start: 06-24-2023 Refill Aide Castillo APRN.SAND MILL OPERATOR Work Phone: [facility] Comment on above: Refill Request Start: 06-19-2023 Telephone encounter Sona Grier MD Work Phone: Pulmonary Medicine Comment on above: Orders Start: 06-14-2023 ambulatory Сергей dolan MD Work Phone: [facility] Comment on above: Handicap placard Start: 06-11-2023 Refill Сергей dolan MD Work Phone: [facility] Comment on above: Refill Request Yes prescription ref ills Start: 05-26-2023 End: 05-26-2023 ambulatory СЕРГЕЙ Salguero [facility] Facility:[facility] Start: 05-25-2023 End: 05-25-2023 [facility] Facility:[facility] Start: 05-24-2023 ambulatory Ca manzo RN NURSE CUSTOMS MANAGER Comment on above: UTI Start: 05-18-2023 ambulatory Сергей dolan MD Work Phone: [facility] Comment on above: My heart test Start: 05-13-2023 Refill Brinda manley FLOOR ATTENDANT.SAND MILL OPERATOR Work Phone: Internal [facility] Comment on above: Refill Request Start: 05-09-2023 Refill Sona baldwin MD Work Phone: Pulmonary Medicine Comment on above: Refill Request Start: 05-08-2023 ambulatory Cordt James FLOOR ATTENDANT.SAND MILL OPERATOR Work Phone: Pulmonary Medicine Comment on above: Sinus problem and fi brosis question Refill Request Start: 05-04-2023 ambulatory Сергей dolan MD Work Phone: Internal [facility] Comment on above: Pain management Refill Request Start: 05-03-2023 ambulatory Сергей dolan MD Work Phone: Internal [facility] Comment on above: Pain management Start: 05-01-2023 ambulatory Сергей dolan MD Work Phone: [facility] Comment on above: Nurse Triage Call Start: 04-30-2023 ambulatory Сергей dolan MD Work Phone: [facility] Comment on above: Cellulitis Start: 04-29-2023 ambulatory Сергей dolan MD Work Phone: Internal [facility] Comment on above: Sinsus Start: 04-23-2023 End: 04-23-2023 Refill Сергей Espinoza MD Work Phone: Internal [facility] Comment on above: Refill Request DON (dyspnea on exer tion) (Primary Dx); Palpitations; Essential hypertension; Pure hypercholesterolemia; Obstructive sleep apnea; DNR (do not resuscitate) Start: 04-16-2023 ambulatory Сергей dolan MD Work Phone: Internal [facility] Comment on above: Diarrhea Start: 04-14-2023 Refill Сергей dolan MD Work Phone: [facility] Comment on above: Refill Request Start: 04-06-2023 Refill Tomasa Ramirez FLOOR ATTENDANT.SAND MILL OPERATOR Work Phone: Pulmonary Medicine Comment on above: Refill Request Start: 03-31-2023 Telephone encounter Sona Grier MD Work Phone: Pulmonary Medicine Comment on above: Patient Update Start: 02-19-2023 Refill Сергей dolan MD Work Phone: [facility] Comment on above: Refill Request Appointment Start: 02-12-2023 Refill Aide Castillo FLOOR ATTENDANT.SAND MILL OPERATOR Work Phone: [facility] Comment on above: Refill Request Start: 02-06-2023 Refill Brinda manley FLOOR ATTENDANT.SAND MILL OPERATOR Work Phone: [facility] Comment on above: Refill Request Start: 02-01-2023 ambulatory Vidya Mayes RN NURSE O N CALL Comment on above: Patient Update Start: 01-29-2023 ambulatory СЕРГЕЙ Ivyi lity:[facility] Start: 01-29-2023 End: 01-29-2023 Subsequent hospital visit by physician [facility] Work Phone: Cardiology Lab Comment on above: SOB (shortness of br eath) [R06.02] Start: 01-21-2023 ambulatory Сергей dolan MD Work Phone: [facility] Comment on above: Prednisone Start: 01-19-2023 End: 01-19-2023 Office outpatient visit 25 minutes Сергей Espinoza MD Work Phone: [facility] Comment on above: Anxiety (Primary Dx) ; Encounter for immunization; Palpitations; Psoriasis; Primary hypertension; Sinus congestion Start: 01-12-2023 ambulatory Сергей dolan MD Work Phone: [facility] Comment on above: [facility] [place] Start: 01-02-2023 ambulatory Сергей dolan MD Work Phone: [facility] Comment on above: Fatigue Start: 12-30-2022 Telephone encounter Sona Grier MD Work Phone: Pulmonary Medicine Comment on above: Medication Problem Start: 12-18-2022 Refill Brinda manley APRN.SAND MILL OPERATOR Work Phone: [facility] Comment on above: Refill Request Start: 12-16-2022 Telephone encounter Soan Grier MD Work Phone: Allergy Comment on above: Opened In Error Forms ([employer] - cpap ) Start: 12-08-2022 ambulatory СЕРГЕЙ U[place] lity:[facility] Start: 12-02-2022 ambulatory Sona baldwin MD Work Phone: Pulmonary Medicine Comment on above: Merna Webster Start: 11-28-2022 Telephone encounter Sona Grier MD Work Phone: Pulmonary Medicine Comment on above: Patient Question Start: 11-28-2022 ambulatory СЕРГЕЙQUIQUE ESPINOZA [facility] Start: 11-28-2022 End: 11-28-2022 Subsequent hospital visit by physician [facility] Rad[facility] Comment on above: SOB (shortness of [...] of COVID-19 Start: 11-19-2022 Refill Aide Castillo APRN.SAND MILL OPERATOR Work Phone: [facility] Comment on above: Refill Request Start: 11-18-2022 ambulatory Darling Samuels RN [facility] Start: 11-18-2022 Follow-up encounter Darling Samuels RN NURSE CUSTOMS MANAGER Comment on above: Follow Up Start: 11-17-2022 ambulatory Sona baldwin MD Work Phone: Pulmonary Medicine Comment on above: Cpap supplies Start: 11-17-2022 Telephone encounter Sona Grier MD Work Phone: Pulmonary Medicine Comment on above: Orders Start: 11-16-2022 ambulatory Kenyon Zuniga SAND MILL OPERATOR Work Phone: [facility] Comment on above: Zoloft Start: 11-11-2022 ambulatory Сергей dolan MD Work Phone: [facility] Comment on above: Nurse Triage Call; B lood Pressure (/) Start: 11-10-2022 Telephone encounter Sona Grier MD Work Phone: Pulmonary Medicine Comment on above: Forms ([employer] - oxyg en) Start: 11-04-2022 ambulatory Sona baldwin MD Work Phone: [facility] Start: 11-04-2022 Patient encounter procedure Na smita Grier MD Work Phone: Pulmonary Medicine Comment on above: Appointment Start: 10-27-2022 ambulatory Sona baldwin MD Work Phone: Pulmonary Medicine Comment on above: Migraine headaches Start: 10-24-2022 ambulatory СЕРГЕЙ Umana [facility] Start: 10-24-2022 End: 10-24-2022 Office outpatient visit 25 minutes Al Woods PA-C Work Phone: Orthopaedics Comment on above: Primary osteoarthrit is of right shoulder (Primary Dx); Primary osteoarthritis of right hip; Primary osteoarthritis of right knee; Primary osteoarthritis of left knee Start: 10-24-2022 End: 10-24-2022 Subsequent hospital visit by physician [facility] Work Phone: Radiology Comment on above: Chronic right should er pain [M25.511, G89.29] Pain [R52] Start: 10-23-2022 ambulatory Сергей dolan MD Work Phone: Internal [facility] Comment on above: Fatigue Start: 10-22-2022 ambulatory Сергей dolan MD Work Phone: Internal [facility] Comment on above: Excressive sleeping Start: 10-21-2022 Refill Brinda manley APRN.SAND MILL OPERATOR Work Phone: [facility] Comment on above: Refill Request Start: 10-20-2022 ambulatory Sona baldwin MD Work Phone: Pulmonary Medicine Comment on above: Oxygen and Cpap supp lies Start: 10-08-2022 Orders Only Al Woods PA-C Work Phone: Orthopaedics Comment on above: Pain (Primary Dx) Start: 10-07-2022 ambulatory Pcp (Historical) [facility] Start: 10-01-2022 ambulatory Pcp (Historical) [facility] Start: 09-23-2022 Refill Tomasa Ramirez APRN.SAND MILL OPERATOR Work Phone: Pulmonary Medicine Comment on above: Refill Request Start: 09-11-2022 ambulatory Сергей dolan MD Work Phone: Internal [facility] Comment on above: Blood pressure Start: 09-08-2022 Telephone encounter Сергей Espinoza MD Work Phone: Internal [facility] Comment on above: Medication Problem Start: 09-07-2022 Telephone encounter Brinda Dominguez APRN.SAND MILL OPERATOR Work Phone: Internal [facility] Comment on above: Appointment Start: 09-05-2022 End: 09-05-2022 Office outpatient visit 25 minutes Brinda Dominguez APRN.SAND MILL OPERATOR Work Phone: Internal [facility] Comment on above: Essential hypertensi on (Primary Dx); Primary osteoarthritis of both hips; DDD (degenerative disc disease), cervical; Closed fracture of one rib of left side with routine healing, subsequent encounter Start: 09-03-2022 End: 09-03-2022 Subsequent hospital visit by physician [facility] Marcela Denise Work Phone: Radiology Comment on above: Right hip pain [M25. 551] Start: 08-23-2022 Refill Aide Castillo APRN.SAND MILL OPERATOR Work Phone: [facility] Comment on above: Refill Request Start: 08-22-2022 End: 08-22-2022 Office outpatient visit 25 minutes Сергей Espinoza MD Work Phone: [facility] Comment on above: Other fatigue (Prima ry Dx); Neck pain; Chronic nonintractable headache, unspecified headache type; Rib pain on left side Start: 08-21-2022 ambulatory Сергей dolan MD Work Phone: [facility] Comment on above: Nurse Triage Call My stomach and sever al bad headaches Start: 08-21-2022 Telephone encounter Сергей Espinoza MD Work Phone: [facility] Comment on above: DURABLE MEDICAL EQUI PMENT (CPAP supplies) Start: 08-15-2022 ambulatory Сергей dolan MD Work Phone: [facility] Comment on above: Nurse Triage Call Start: 08-14-2022 Refill Brinda manley FLOOR ATTENDANT.SAND MILL OPERATOR Work Phone: [facility] Comment on above: Refill Request Upset stomach all th e [facility] Start: 07-10-2022 Refill Сергей dolan MD Work Phone: [facility] Comment on above: Refill Request Start: 07-09-2022 ambulatory SONA GRIER Facili ty:[facility] Start: 07-09-2022 End: 07-09-2022 Subsequent hospital visit by physician [facility] Comment on above: Lung nodules [R91.8] Start: 07-08-2022 ambulatory Сергей dolan MD Work Phone: [facility] Start: 07-08-2022 Patient encounter procedure Talia Espinoza MD Work Phone: [facility] Comment on above: Appointment Start: 06-25-2022 Refill Brinda manley APRN.SAND MILL OPERATOR Work Phone: [facility] Comment on above: Refill Request Start: 06-23-2022 ambulatory Сергей dolan MD Work Phone: [facility] Comment on above: Insurance Change for Start: 06-18-2022 ambulatory Сергей dolan MD Work Phone: [facility] Comment on above: Nurse Triage Call Start: 06-12-2022 Refill Сергей dolan MD Work Phone: [facility] Comment on above: Refill Request Start: 06-11-2022 Refill Rica cota PA-C Work Phone: Orthopaedics Comment on above: Refill Request Start: 06-03-2022 ambulatory Сергей dolan MD Work Phone: [facility] Start: 06-03-2022 Patient encounter procedure Talia Espinoza MD Work Phone: [facility] Comment on above: Appointment Start: 05-26-2022 Refill Aide Castillo APRN.SAND MILL OPERATOR Work Phone: [facility] Comment on above: Refill Request Start: 05-22-2022 End: 05-22-2022 Social Work Elder Chanel [facility] Primary Care Social Work Comment on above: Financial difficulty (Primary Dx) Pain in right hip [M 25.551] Start: 05-21-2022 End: 05-21-2022 Office outpatient visit 25 minutes Сергей Espinoza MD Work Phone: [facility] Comment on above: Idiopathic pulmonary fibrosis (HCC) (Primary Dx); Financial difficulties; Recurrent major depressive disorder, in full remission (HCC); Chronic respiratory failure with hypoxia (HCC); Essential hypertension; Anxiety Start: 05-10-2022 ambulatory Сергей dolan MD Work Phone: [facility] Comment on above: Lab test Start: 05-08-2022 End: 05-09-2022 ambulatory СЕРГЕЙ ESPINOZA Facility:[facility] Start: 05-08-2022 Telephone encounter Tomasa López ba FLOOR ATTENDANT.SAND MILL OPERATOR Work Phone: Pulmonary Medicine Comment on above: Insurance Authorizat ion Start: 05-06-2022 ambulatory Сергей dolan MD Work Phone: Internal [facility] [place] Start: 05-05-2022 End: 05-05-2022 Patient encounter procedure Tomasa Ramirez FLOOR ATTENDANT.SAND MILL OPERATOR Work Phone: Pulmonary Medicine Comment on above: Idiopathic pulmonary fibrosis (HCC) (Primary Dx); Chronic respiratory failure with hypoxia (HCC); Mild persistent asthma without complication; JENNY on CPAP; Lung nodule Start: 05-03-2022 ambulatory Sabine López RN NURSE CUSTOMS MANAGER Comment on above: Covid19 Concern Start: 05-01-2022 Refill Brinda manley FLOOR ATTENDANT.SAND MILL OPERATOR Work Phone: [facility] Comment on above: Refill Request Start: 04-29-2022 Refill Brinda manley FLOOR ATTENDANT.SAND MILL OPERATOR Work Phone: [facility] Comment on above: Refill Request Start: 04-25-2022 Refill Сергей dolan MD Work Phone: [facility] Comment on above: Refill Request Start: 04-24-2022 ambulatory Tomasa Ramirez FLOOR ATTENDANT.SAND MILL OPERATOR Work Phone: [facility] Start: 04-24-2022 Patient encounter procedure Co rdoral Ramirez FLOOR ATTENDANT.SAND MILL OPERATOR Work Phone: Pulmonary Medicine Comment on above: Appointment Start: 04-23-2022 ambulatory Сергей dolan MD Work Phone: [facility] Comment on above: Shingles Start: 04-20-2022 Office outpatient ne w 30 minutes Unknown Unknown [facility] Work Phone: Start: 04-20-2022 ambulatory UNKNOWN UNKNOWN [...] Telephone encounter Sona Grier MD Work Phone: [facility] Adult Comment on above: Appointment Start: 04-10-2022 End: 04-10-2022 Subsequent hospital visit by physician [facility] ([facility]) Work Phone: CT Scan Comment on above: Interstitial pulmona ry disease (HCC) [J84.9] Start: 04-03-2022 Telephone encounter Tomasa López ba, APRN.SAND MILL OPERATOR Work Phone: Pulmonary Medicine Comment on above: Appointment Start: 04-01-2022 ambulatory Сергей dolan MD Work Phone: [facility] Comment on above: Nurse Triage Call Start: 03-31-2022 ambulatory Сергей dolan MD Work Phone: [facility] Comment on above: My blood pressure Start: 03-31-2022 End: 03-31-2022 Patient encounter procedure Tomasa Ramirez APRN.SAND MILL OPERATOR Work Phone: Pulmonary Medicine Comment on above: Idiopathic pulmonary fibrosis (HCC) (Primary Dx); Chronic respiratory failure with hypoxia (HCC); Mild persistent asthma without complication; JENNY on CPAP Refill Request Start: 03-28-2022 Telephone encounter Sona Grier MD Work Phone: Pulmonary Medicine Comment on above: Patient Question (Re : Oxygen setting/level) Start: 03-25-2022 End: 03-25-2022 ambulatory Nurse Triage [facility] Work Phone: Nurse Phone Triage Comment on above: Nurse Triage Call (H ruchidabhupinder) Start: 03-19-2022 Telephone encounter Rica rosen PA-C Work Phone: Orthopaedics Comment on above: Appointment Start: 02-27-2022 Refill Brinda Pro el FLOOR ATTENDANT.SAND MILL OPERATOR Work Phone: [facility] Comment on above: Refill Request Start: 02-19-2022 Refill Brinda Pro el FLOOR ATTENDANT.SAND MILL OPERATOR Work Phone: [facility] Comment on above: Refill Request Start: 02-14-2022 End: 02-14-2022 Patient encounter procedure Сергей Espinoza MD Work Phone: [facility] Comment on above: Trochanteric bursiti s of right hip (Primary Dx); Right hip pain; Essential hypertension; Anxiety Start: 01-31-2022 Refill Brinda Pro el FLOOR ATTENDANT.SAND MILL OPERATOR Work Phone: [facility] Comment on above: Refill Request Start: 01-28-2022 End: 01-28-2022 ambulatory [facility] Comment on above: Radicular low back p ain (Primary Dx) Start: 12-31-2021 Refill Сегрей dolan MD Work Phone: [facility] Comment on above: Refill Request Start: 12-30-2021 End: 12-30-2021 Subsequent hospital visit by physician [facility] [place] Work Phone: Radiology Comment on above: Chronic pain of righ t knee [M25.561, G89.29] Start: 12-21-2021 ambulatory Сергей dolan MD Work Phone: Internal [facility] Comment on above: Medication Euthyrox Start: 12-10-2021 Telephone encounter Сергей Espinoza MD Work Phone: Internal [facility] Comment on above: Insurance Authorizat ion (Flovent Inhaler ) Start: 12-09-2021 Refill Сергей dolan MD Work Phone: [facility] Comment on above: Refill Request Start: 12-06-2021 ambulatory Сергей dolan MD Work Phone: [facility] Comment on above: Serrano Start: 12-05-2021 ambulatory Сергей dolan MD Work Phone: [facility] Start: 12-05-2021 Patient encounter procedure Na ana luisa Espinoza MD Work Phone: Internal [facility] Comment on above: Appointment Start: 12-03-2021 ambulatory Сергей dolan MD Work Phone: [facility] Start: 12-03-2021 Patient encounter procedure Na ana luisa Espinoza MD Work Phone: [facility] Comment on above: Appointment Start: 12-02-2021 Refill Brinda Guerrero PA-C Work Phone: Pulmonary Medicine Comment on above: Refill Request Start: 12-01-2021 ambulatory Сергей dolan MD Work Phone: [facility] Comment on above: Not a question Start: 11-30-2021 Refill Сергей dolan MD Work Phone: [facility] Comment on above: Alprazolam Start: 11-28-2021 Refill Сергей dolan MD Work Phone: [facility] Comment on above: Refill Request Start: 11-26-2021 ambulatory Сергей dolan MD Work Phone: [facility] Comment on above: Right hip and leg Start: 11-14-2021 Telephone encounter Сергей Espinoza MD Work Phone: [facility] Comment on above: Medication Problem Start: 11-13-2021 Get Medical Advice Tonie Espinoza MD Work Phone: [facility] Comment on above: About refill. For Fl uticadone Problems innate HFA Inhalation Aerosol Start: 11-09-2021 ambulatory Сергей dolan MD Work Phone: [facility] Comment on above: Post covid syndrome [...] 10-11-2021 Refill Сергей dolan MD Work Phone: [facility] Comment on above: Refill Request Pain in right hip an d leg also in groin area Start: 10-04-2021 Refill Brinda manley FLOOR ATTENDANT.SAND MILL OPERATOR Work Phone: [facility] Comment on above: Refill Request Zach Webster Start: 09-20-2021 Refill Сергей dolan MD Work Phone: [facility] Comment on above: Refill Request Start: 09-20-2021 Refill Сергйе dolan MD Work Phone: [facility] Comment on above: Refill Request Start: 09-18-2021 ambulatory Сергей dolan MD Work Phone: [facility] Comment on above: Fatigue Start: 09-05-2021 Refill Kenyon Zuniga APRN.SAND MILL OPERATOR Work Phone: [facility] Comment on above: Refill Request Start: 08-06-2021 Refill Brinda manley FLOOR ATTENDANT.SAND MILL OPERATOR Work Phone: [facility] Comment on above: Refill Request Start: 07-30-2021 ambulatory Сергей dolan MD Work Phone: [facility] Comment on above: Blood pressure Start: 07-28-2021 ambulatory Сергей dolan MD Work Phone: [facility] Comment on above: Blood pressure Start: 07-25-2021 Refill Brinda manley FLOOR ATTENDANT.SAND MILL OPERATOR Work Phone: [facility] Comment on above: Refill Request Start: 07-24-2021 End: 07-24-2021 Office outpatient visit 25 minutes Kenyon Zuniga APRN.SAND MILL OPERATOR Work Phone: [facility] Comment on above: Fatigue, unspecified type (Primary Dx); Essential hypertension; Obstructive sleep apnea; Anxiety Start: 07-23-2021 ambulatory Сергей dolan MD Work Phone: [facility] Comment on above: Fatigue Fatigued Start: 07-21-2021 Refill Sona baldwin MD Work Phone: Pulmonary Medicine Comment on above: Refill Request Start: 07-08-2021 Refill Brinda manley FLOOR ATTENDANT.SAND MILL OPERATOR Work Phone: [facility] Comment on above: Refill Request Start: 07-04-2021 Telephone encounter Sona Grier MD Work Phone: Pulmonary Medicine Comment on above: Orders Start: 07-02-2021 Refill Сергей dolan MD Work Phone: [facility] Comment on above: Refill Request Start: 06-11-2021 Refill Сергей dolan MD Work Phone: [facility] Comment on above: Refill Request Start: 06-07-2021 Coordination of care plan Elder Stephanie grant [employer] Primary Care Social Work Comment on above: Encounter for suppor t and coordination of transition of care (Primary Dx) Start: 06-07-2021 Telephone encounter Sona Grier MD Work Phone: Pulmonary Medicine Comment on above: Orders ([employer] ) Start: 06-06-2021 Refill Сергей dolan MD Work Phone: [facility] Comment on above: Refill Request multiple problems Start: 06-04-2021 ambulatory Сергей dolan MD Work Phone: [facility] Comment on above: Merna Jamil Start: 06-01-2021 ambulatory Сергей dolan MD Work Phone: [facility] Comment on above: Blood pressure Start: 05-31-2021 ambulatory Сергей dolan MD Work Phone: [facility] Comment on above: Test results Start: 05-30-2021 End: 05-30-2021 Patient encounter procedure Сергей Espinoza MD Work Phone: [facility] Comment on above: Pure hypercholestero lemia (Primary Dx); Idiopathic pulmonary fibrosis (HCC); Chronic respiratory failure with hypoxia (HCC); Nonintractable headache, unspecified chronicity pattern, unspecified headache type; Anxiety; Primary insomnia; Obstructive sleep apnea; Recurrent major depressive disorder, in full remission (HCC); Acquired hypothyroidism Procedures Date Procedure Procedure Detail Performing Clinician Start: 09-14-2024 Total iron binding c apacity measurement Dr. Сергей Espinoza MD Work Phone: Start: 04-23-2024 Legionella pneumophi la antigen assay [...] Sona Grier MD Work Phone: Start: 01-19-2023 PFIZER-BIONTECH COVI D-19 VACCINE (2022- SEASON) AGE 12+ YR Сергей Espinoza MD [...] Author Start: 07-08-2026 Diabetes Screening Diabetes Screening [facility] Start: 05-24-2026 Diabetes Screening Diabetes Screening [facility] Start: 05-12-2026 Urine microalbumin profile [facility] Start: 08-22-2025 DIABETES SCREEN DIABETES SCREEN [facility] Start: 08-22-2025 Diabetes Screening Diabetes Screening [facility] Start: 10-28-2024 DIABETES SCREEN DIABETES SCREEN [facility] Start: 05-30-2024 DIABETES SCREEN DIABETES SCREEN [facility] Start: 03-29-2024 End: 03-29-2024 Patient encounter procedure 03/29/2024 1:30 PM EST Office Visit Pulmonary Medicine [address] [place], [place] [id number] Kita Ocampo MD [address] [place], [place] [phone] Interstitial pulmonary disease (HCC) [J84.9] Pulmonary Medicine Comment on above: Interstitial pulmonary disease (HCC) [J8 4.9] Start: 02-22-2024 End: 02-22-2024 Patient encounter procedure 02/22/2024 8:20 AM EST Office Visit Cardiology [address] [place] [id number] Roberto Howard MD [address], [address] [place] [address] SOB (shortness of breath) [R06.02] Cardiology Comment on above: SOB (shortness of breath) [R06.02] Start: 11-11-2023 End: 11-11-2023 Patient encounter procedure 11/11/2023 3:00 PM EDT Office Visit Internal Medicine [place] [address] [phone] Сергей Espinoza MD [address] [place] [address] 4 mo follow up Internal Medicine [place] Comment on above: 4 mo follow up Start: 11-05-2023 End: 11-05-2023 Patient encounter procedure 11/05/2023 3:00 PM EDT Office Visit [facility] [place] [address] [address] Сергей Espinoza MD [address] [place] [address] 4 mo follow up [facility] Comment on above: 4 mo follow up Start: 11-01-2023 Covid-19 Vaccine ( season) Covid-19 Vaccine () [facility] Start: 11-01-2023 Covid-19 Vaccine () Covid-19 Vaccine () [facility] Start: 11-01-2023 Influenza vaccination Influenza Vaccine (#1) [facility] Start: 09-30-2023 End: 09-30-2023 Patient encounter procedure 09/30/2023 2:40 PM EDT Office Visit Cardiology [address] [place] [address] Igor Johnson DO [address] [place] [address] 3 month follow up Cardiology Comment on above: 3 month follow up Start: 09-25-2023 End: 09-25-2023 Patient encounter procedure 09/25/2023 3:00 PM EDT Office Visit Pulmonary Medicine [address] [address] Mouna Vuong, FLOOR ATTENDANT.SAND MILL OPERATOR [address] [address] Interstitial pulmonary disease (HCC) [J84.9] Pulmonary Medicine Comment on above: Interstitial pulmonary disease (HCC) [J8 4.9] Start: 09-25-2023 End: 09-25-2023 ambulatory 09/25/2023 2:15 PM EDT Procedure Pulmonary Medicine [address] [address] Interstitial pulmonary disease (HCC) [J84.9] Pulmonary Medicine Comment on above: Interstitial pulmonary disease (HCC) [J8 4.9] Start: 09-25-2023 End: 09-25-2023 ambulatory Pulmonary Medicine Comment on above: Interstitial pulmonary disease (HCC) [J8 4.9] Start: 09-18-2023 End: 09-18-2023 Patient encounter procedure 09/18/2023 2:00 PM EDT Appointment Cat Scan [address] [place] [address] Interstitial pulmonary disease (HCC) [J84.9] Cat Scan Comment on above: Interstitial pulmonary disease (HCC) [J8 4.9] Start: 08-29-2023 End: 08-29-2023 Patient encounter procedure 08/29/2023 11:20 AM EDT Office Visit Internal Medicine [place] [address] [phone] Сергей Espinoza MD [address] [place], [place] [phone] 3 month follow up [facility] [place] Comment on above: 3 month follow up Start: 08-28-2023 End: 08-28-2023 Patient encounter procedure 08/28/2023 2:30 PM EDT Office Visit Pulmonary Medicine [address] [address] Mouna Vuong, FLOOR ATTENDANT.[facility] [address] [phone] follow up Pulmonary Medicine Comment on above: follow up Start: 08-28-2023 End: 08-28-2023 ambulatory Pulmonary Medicine Comment on above: Interstitial pulmonary disease (HCC) [J8 4.9] Start: 08-18-2023 End: 08-18-2023 Patient encounter procedure 08/18/2023 2:20 PM EDT Appointment Cat Scan [address] [place] [address] Interstitial pulmonary disease (HCC) [J84.9] Cat Scan [...] 2:20 PM EDT Office Visit Internal Medicine [place] [address] [phone] Сергей Espinoza MD [address] [place] [address] Getting things together to be able to go to [facility] and l also have to get approval for,Medicaid ok per Dr. espinoza [facility] Comment on above: Getting things together to be able to go to [facility] and l also have to get approval for,Medicaid ok per Dr. espinoza Start: 07-13-2023 End: 10-12-2023 Urinalysis complete panel - Urine URINALYSIS, WITH MICROSCOPIC Lab Routine Dysuria Expected: 07/13/2023, Expires: 10/12/2023 [facility] Work Phone: Comment on above: Expected: 07/13/2023, Expires: Start: 07-13-2023 End: 07-13-2023 ambulatory 07/13/2023 1:15 PM EDT Results Only Marcela Argueta [facility] [address] [place] [address] Marcela [place] [facility] Start: 07-10-2023 End: 10-09-2023 CBC W Auto Differential panel - Blood COMPLETE BLOOD COUNT AND DIFFERENTIAL Lab Routine Hyponatremia Anemia, unspecified type Expected: 07/10/2023, Expires: 10/09/2023 [facility] Comment on above: Expected: 07/10/2023, Expires: Start: 07-10-2023 End: 10-09-2023 Folate [Mass/volume] in Serum or Plasma FOLATE, SERUM Lab Routine Hyponatremia Anemia, unspecified type Expected: 07/10/2023, Expires: 10/09/2023 [facility] Comment on above: Expected: 07/10/2023, Expires: Start: 07-10-2023 End: 10-09-2023 Osmolality of Serum or Plasma OSMOLALITY Lab Routine Hyponatremia Anemia, unspecified type Expected: 07/10/2023, Expires: 10/09/2023 [facility] Comment on above: Expected: 07/10/2023, Expires: Start: 07-10-2023 End: 10-09-2023 Osmolality of Urine OSMOLALITY URINE Lab Routine Hyponatremia Anemia, unspecified type Expected: 07/10/2023, Expires: 10/09/2023 [facility] Comment on above: Expected: 07/10/2023, Expires: Start: 07-10-2023 End: 10-09-2023 RETICULOCYTE COUNT RETICULOCYTE COUNT Lab Routine Hyponatremia Anemia, unspecified type Expected: 07/10/2023, Expires: 10/09/2023 [facility] Comment on above: Expected: 07/10/2023, Expires: Start: 07-10-2023 End: 10-09-2023 Sodium [Moles/volume] in Urine collected for unspecified duration SODIUM RANDOM URINE Lab Routine Hyponatremia Anemia, unspecified type Expected: 07/10/2023, Expires: 10/09/2023 [facility] Work Phone: Comment on above: Expected: 07/10/2023, Expires: Start: 07-09-2023 End: 07-09-2023 Patient encounter procedure 07/09/2023 8:00 AM EDT Office Visit Internal Medicine [place] [address] [address] Сергей Espinoza MD [address] [place] [address] fci visit physical ok per dr espinoza [facility] [place] Comment on above: fci visit physical ok per dr loan dolan Start: 07-08-2023 End: 07-08-2023 ambulatory 07/08/2023 2:00 PM EDT Results Only Marcela [place] [facility] [address] [place] [address] Marcela Iversonn [facility] Start: 07-07-2023 End: 07-07-2023 ambulatory 07/07/2023 2:30 PM EDT Results Only Marcela [place] [facility] [address] [place] [address] [place] [facility] Start: 06-30-2023 End: 06-30-2023 Patient encounter procedure 06/30/2023 3:00 PM EDT Office Visit Cardiology [address] [phone] Mouna Baez APRN.SAND MILL OPERATOR [address] [phone] follow up Cardiology Comment on above: follow up Start: 06-30-2023 End: 09-29-2023 Lipid 1996 panel - Serum or Plasma LIPID PANEL BASIC Lab Routine Pure hypercholesterolemia Expected: 06/30/2023, Expires: 09/29/2023 [facility] Work Phone: Comment on above: Expected: 06/30/2023, Expires: Start: 05-20-2023 Covid-19 Vaccine () Covid-19 Vaccine () [facility] Start: 03-16-2023 Covid-19 Vaccine () Covid-19 Vaccine () [facility] Start: 03-02-2023 Advance Directive Discussion Advance Directive Discussion [facility] Start: 02-14-2023 ANNUAL PCP TEAM CHRONIC DISEASE VISIT ANNUAL PCP TEAM CHRONIC DISEASE VISIT [facility] Start: 12-13-2022 ANNUAL PCP TEAM CHRONIC DISEASE VISIT ANNUAL PCP TEAM CHRONIC DISEASE VISIT [facility] Start: 10-31-2022 Covid-19 Vaccine (5 - 2023-24 season) Covid-19 Vaccine ( season) [facility] Start: 10-31-2022 Influenza vaccination [facility] Start: 07-24-2022 ANNUAL PCP TEAM CHRONIC DISEASE VISIT ANNUAL PCP TEAM CHRONIC DISEASE VISIT [facility] Start: 07-09-2022 End: 05-11-2023 Ct thorax w/o contrast material [facility] Work Phone: Comment on above: Expected: 07/09/2022, Expires: 4 1 Occurrences starti ng 07/09/2022 until 07/09/2022 Start: 05-30-2022 ANNUAL PCP TEAM CHRONIC DISEASE VISIT ANNUAL PCP TEAM CHRONIC DISEASE VISIT [facility] Start: 05-06-2022 End: 07-06-2022 SCHEDULE LAB TESTING SCHEDULE LAB TESTING Lab Routine Expected: 05/06/2022, Expires: 07/06/2022 [facility] Work Phone: Comment on above: Expected: 05/06/2022, Expires: 3 Start: 04-15-2022 COVID-19 VACCINE (5 - Pfizer series) COVID-19 VACCINE (5 - Pfizer series) [facility] Start: 03-02-2022 ADVANCE DIRECTIVE DISCUSSION ADVANCE DIRECTIVE DISCUSSION [facility] Start: 01-28-2022 End: 11-27-2022 Ct thorax w/o contrast material CT CHEST WO IVCON Radiology Routine Interstitial pulmonary disease (HCC) Expected: 01/28/2022, Expires: 11/27/2022 [facility] Work Phone: Comment on above: Expected: 01/28/2022, Expires: 3 Start: 10-31-2021 Influenza vaccination [facility] Start: 07-04-2021 COVID-19 VACCINE (4 - Booster for Pfizer series) COVID-19 VACCINE (4 - Booster for Pfizer series) [facility] Start: 05-01-2021 COVID-19 VACCINE (4 - Booster for Pfizer series) COVID-19 VACCINE (4 - Booster for Pfizer series) [facility] Start: 10-31-2020 Influenza vaccination INFLUENZA (#1) [facility] Start: 2016 RSV Vaccine (1 - 1-dose 75+ series) RSV Vaccine (1 - 1-dose 75+ series) [facility] Start: 09-05-2007 Screening for osteoporosis Bone Density Screening [facility] Start: 2001 RSV Vaccine (1 - 1-dose 60+ series) RSV Vaccine (1 - 1-dose 60+ series) [facility] Start: 1959 BP CONTROLLED (<130/80) BP CONTROLLED (<130/80) [facility] Start: 1947 PNEUMOCOCCAL: 65+ (1 - PCV) PNEUMOCOCCAL: 65+ (1 - PCV) [facility] CT Chest WO contrast CT CHEST WO IVCON Radiology Routine Interstitial pulmonary disease (HCC) 09/18/2023 2:41 PM EDT [facility] Work Phone: End: 11-29-2023 ECG COMPLETE ECG COMPLETE ECG Routine SOB (shortness of breath) 1 Occurrences starting 11/28/2022 until 11/29/2023 [facility] Work Phone: Comment on above: 1 Occurrences starting 11/28/2022 until 11/29/2023 End: 11-29-2023 Echocardiography ECHO Cardiology Routine SOB (shortness of breath) 1 Occurrences starting 11/28/2022 until 11/29/2023 [facility] Work Phone: Comment on above: 1 Occurrences starting 11/28/2022 until 11/29/2023 End: 11-27-2022 LUNG DIFFUSION CAPACITY (DLCO) LUNG DIFFUSION CAPACITY (DLCO) PFT Routine Interstitial pulmonary disease (HCC) 1 Occurrences starting 10/28/2021 until 11/27/2022 [facility] Work Phone: Comment on above: 1 Occurrences starting 10/28/2021 until 11/27/2022 End: 06-04-2023 LUNG DIFFUSION CAPACITY (DLCO) LUNG DIFFUSION CAPACITY (DLCO) PFT Routine Idiopathic pulmonary fibrosis (HCC) Chronic respiratory failure with hypoxia (HCC) Mild persistent asthma without complication 1 Occurrences starting 05/05/2022 until 06/04/2023 [facility] Work Phone: Comment on above: 1 Occurrences starting 05/05/2022 until 06/04/2023 End: 11-27-2022 LUNG VOLUMES LUNG VOLUMES PFT Routine Interstitial pulmonary disease (HCC) 1 Occurrences starting 10/28/2021 until 11/27/2022 [facility] Work Phone: Comment on above: 1 Occurrences starting 10/28/2021 until 11/27/2022 End: 06-04-2023 LUNG VOLUMES LUNG VOLUMES PFT Routine Idiopathic pulmonary fibrosis (HCC) Chronic respiratory failure with hypoxia (HCC) Mild persistent asthma without complication 1 Occurrences starting 05/05/2022 until 06/04/2023 [facility] Work Phone: Comment on above: 1 Occurrences starting 05/05/2022 until 06/04/2023 OUTSIDE VENDOR CARDI AC OUTPATIENT EXTENDED RHYTHM RECORDING (WITHOUT TELEMETRY) OUTSIDE VENDOR CARDIAC OUTPATIENT EXTENDED RHYTHM RECORDING (WITHOUT TELEMETRY) Holter Routine Palpitations Ordered: 01/19/2023 [facility] Work Phone: Comment on above: Ordered: 01/19/2023 OUTSIDE VENDOR CARDI AC OUTPATIENT EXTENDED RHYTHM RECORDING (WITHOUT TELEMETRY) OUTSIDE VENDOR CARDIAC OUTPATIENT EXTENDED RHYTHM RECORDING (WITHOUT TELEMETRY) Holter Routine DON (dyspnea on exertion) Palpitations Essential hypertension Pure hypercholesterolemia Obstructive sleep apnea DNR (do not resuscitate) Ordered: 04/23/2023 [facility] Work Phone: Comment on above: Ordered: 04/23/2023 End: 04-30-2023 OXIMETRY WITH AMBULATION OXIMETRY WITH AMBULATION PFT Routine Chronic respiratory failure with hypoxia (HCC) 1 Occurrences starting 03/31/2022 until 04/30/2023 [facility] Work Phone: Comment on above: 1 Occurrences starting 03/31/2022 until 04/30/2023 End: 09-21-2023 Radex spine cervical 4 or 5 views XR CERV OTHER 4V AP/LAT/OBL Radiology Routine Neck pain 1 Occurrences starting 08/22/2022 until 09/21/2023 [facility] Work Phone: Comment on above: 1 Occurrences starting 08/22/2022 until 09/21/2023 End: 06-04-2023 SPIROMETRY - BASELINE AND POST DILATOR SPIROMETRY - BASELINE AND POST DILATOR PFT Routine Idiopathic pulmonary fibrosis (HCC) Chronic respiratory failure with hypoxia (HCC) Mild persistent asthma without complication 1 Occurrences starting 05/05/2022 until 06/04/2023 [facility] Work Phone: Comment on above: 1 Occurrences starting 05/05/2022 until 06/04/2023 End: 11-27-2022 SPIROMETRY WITH DILATOR IF OBSTRUCTED SPIROMETRY WITH DILATOR IF OBSTRUCTED PFT Routine Interstitial pulmonary disease (HCC) 1 Occurrences starting 10/28/2021 until 11/27/2022 [facility] Work Phone: Comment on above: 1 Occurrences starting 10/28/2021 until 11/27/2022 Transferrin [Mass/volume] in Serum or Plasma [facility] End: 03-16-2023 XR HIP BILATERAL 5V PEL/AP/LAT EACH HIP XR HIP BILATERAL 5V PEL/AP/LAT EACH HIP Radiology Routine Right hip pain 1 Occurrences starting 02/14/2022 until 03/16/2023 [facility] Work Phone: Comment on above: 1 Occurrences starting 02/14/2022 until 03/16/2023 End: 11-07-2023 XR KNEE GENERAL 4V AP BOTH/PA BOTH/LAT/MERC BILATERAL XR KNEE GENERAL 4V AP BOTH/PA BOTH/LAT/MERC BILATERAL Radiology Routine Pain 1 Occurrences starting 10/08/2022 until 11/07/2023 [facility] Work Phone: Comment on above: 1 Occurrences starting 10/08/2022 until 11/07/2023 End: 09-21-2023 XR RIBS/CHEST 3V AP RIB/OBLS/CXR LEFT XR RIBS/CHEST 3V AP RIB/OBLS/CXR LEFT Radiology Routine Rib pain on left side 1 Occurrences starting 08/22/2022 until 09/21/2023 [facility] Work Phone: Comment on above: 1 Occurrences starting 08/22/2022 until 09/21/2023 [facility] c [facility] c [facility] c [facility] c [facility] c [facility] c [facility] c [facility] Immunizations Immunization Date Immunization Notes Care Provider Fa [facility] 01-19-2023 COVID-19 vaccine, ag e 12+ yr, 2022- season (PFIZER-BIONTECH) Сергей Espinoza MD Work Phone: [facility] 11-12-2022 influenza (HD-IIV4) vaccine, age 65+ yr, high dose, quadrivalent, PF (FLUZONE HIGH-DOSE) Kenyon Zuniga APRN.CNP Work Phone: [facility] 11-12-2022 influenza virus vacc ine, unspecified formulation Sona Grier MD Work Phone: [facility] 12-13-2021 COVID-19 booster vaccine, age 12+ yr, bivalent (PFIZER-BIONTECH) Сергей Espinoza MD Work Phone: [facility] 12-13-2021 influenza, high-dose , quadrivalent vaccine (FLUZONE HIGH DOSE QUADRIVALENT) Сергей Espinoza MD Work Phone: [facility] 12-13-2021 influenza virus vacc ine, unspecified formulation Сергей Espinoza MD Work Phone: [facility] 05-04-2020 COVID-19 vaccine, ag e 12+ yr (PFIZER-BIONTECH - PURPLE TOP) Сергей Espinoza MD Work Phone: [facility] Work Phone: 2020 COVID-19 vaccine, ag e 12+ yr (PFIZER-BIONTECH - PURPLE TOP) Сергей Espinoza MD Work Phone: [facility] 01-04-2020 influenza, high-dose , quadrivalent vaccine (FLUZONE HIGH DOSE QUADRIVALENT) Сергей Espinoza MD Work Phone: [facility] 11-03-2019 zoster vaccine recombinant Сергей Espinoza MD Work Phone: [facility] 08-18-2019 zoster vaccine recombinant Сергей Espinoza MD Work Phone: [facility] 12-15-2018 influenza, high dose seasonal, preservative-free Сергей Espinoza MD Work Phone: [facility] 01-28-2018 influenza, high dose seasonal, preservative-free Сергей Espinoza MD Work Phone: [facility] 12-26-2016 influenza, high dose seasonal, preservative-free Сергей Espinoza MD Work Phone: [facility] Work Phone: 05-12-2016 tetanus toxoid, redu kit diphtheria toxoid, and acellular pertussis vaccine, adsorbed Сергей Espinoza MD Work Phone: [facility] 03-25-2016 influenza, high dose seasonal, preservative-free Сергей Espinoza MD Work Phone: [facility] 10-10-2014 pneumococcal conjuga te vaccine, 13 valent Сергей Espinoza MD Work Phone: [facility] 12-20-2013 influenza, seasonal, injectable Сергей Espinoza MD Work Phone: [facility] 12-20-2013 pneumococcal polysaccharide vaccine, 23 valent Сергей Espinoza MD Work Phone: [facility] 01-12-2012 influenza virus vacc ine, unspecified formulation Сергей Espinoza MD Work Phone: [facility] Work Phone: 12-14-2009 influenza virus vacc natasha, unspecified formulation Сергей Espinoza MD Work Phone: [facility] Work Phone: 01-09-2007 influenza virus vacc ine, unspecified formulation Сергей Espinoza MD Work Phone: [facility] 07-07-2006 pneumococcal polysaccharide vaccine, 23 valent Сергей Espinoza MD Work Phone: [facility] 12-31-2005 influenza virus vacc natasha, unspecified formulation Сергей Espinoza MD Work Phone: [facility] 01-09-2005 influenza virus vacc ine, unspecified formulation Сергей Espinoza MD Work Phone: [facility] Work Phone: 12-05-2003 influenza virus vacc ine, unspecified formulation Сергей Espinoza MD Work Phone: [facility] 12-17-2002 influenza virus vacc natasha, unspecified formulation Сергей Espinoza MD Work Phone: [facility] Payers Date Payer Category Payer Unknown [id number] 2023 Unknown [id number] 2023 Self-pay 2023 Medicaid MEDICAID [facility] MEDICAID [id number] 2023-Present [phone] [address] [place] [address] Medicaid [id number] 2021 Medicare HUMANA MEDICARE HUMANA GOLD PLUS [id number] 2021-Present [phone] [address] [address] [place] [address] HMO [id number] 2020 Medicare [id number] 2020 Medicare [id number] 1940 Unknown [id number] Unknown [facility] Unknown [id number] Unknown [id number] [id number] Unknown [id number] 2.16.840.1.312750.3.579.2.462 Unknown [id number] 2.16.840.1.697771.3.579.2.462 Unknown [id number] 2.16.840.1.243864.3.579.2.462 Unknown [id number] 2.16.840.1.655447.3.579.2.462 Unknown [id number] 2.16.840.1.199987.3.579.2.462 Unknown [id number] 2.16.840.1.935554.3.579.2.462 Unknown [id number] 2.16.840.1.057287.3.579.2.462 Unknown [id number] 2.16.840.1.386910.3.579.2.462 Unknown [id number] 2.16.840.1.475978.3.579.2.462 Unknown [id number] 2.16.840.1.742868.3.579.2.462 Unknown [id number] 2.16.840.1.249048.3.579.2.462 Unknown [id number] 2.16.840.1.521319.3.579.2.462 Unknown [id number] 2.16.840.1.960417.3.579.2.462 Unknown [id number] 2.16.840.1.775446.3.579.2.462 Unknown [id number] 2.16.840.1.086540.3.579.2.462 Unknown [id number] 2.16.840.1.090478.3.579.2.462 Unknown [id number] 2.16.840.1.739545.3.579.2.462 Unknown [id number] 2.16.840.1.201481.3.579.2.462 Unknown [id number] 2.16.840.1.436939.3.579.2.462 Unknown [id number] 2.16.840.1.107059.3.579.2.462 Unknown [id number] 2.16.840.1.288306.3.579.2.462 Unknown [id number] 2.16.840.1.488143.3.579.2.462 Unknown [id number] 2.16.840.1.945903.3.579.2.462 Unknown [id number] 2.16.840.1.060427.3.579.2.462 Unknown [id number] 2.16.840.1.510833.3.579.2.462 Social History Date Type Detail Facility Start: 02-15-2012 End: 09-14-2024 Tobacco smoking status MNIS Never smoked tobacco [facility] Start: 12-21-2020 End: 09-25-2023 Alcohol intake Current non-drinker of alcohol (finding) [facility] Start: 05-29-2021 End: 02-13-2022 History SDOH Alcohol Frequency 1 [facility] Start: 05-29-2021 End: 02-13-2022 History SDOH Alcohol Std Drinks 98 [facility] Start: 05-29-2021 End: 02-13-2022 History SDOH Social Connections Phone 5 [facility] Start: 05-29-2021 End: 02-13-2022 History SDOH Social Connections Get Together 2 [facility] Start: 05-29-2021 End: 02-13-2022 History SDOH Social Connections [employer] 3 [facility] Start: 05-29-2021 History SDOH Physical Activity DPW 7 [facility] Start: 05-17-2019 Education 12 [facility] Start: 1940 Sex Assigned At Female [facility] Start: 05-20-2021 End: 12-30-2021 Exposure to SARS-CoV-2 (event) Not sure [facility] Start: 02-15-2012 End: 03-24-2023 Tobacco use and exposure Smokeless tobacco non-user [facility] Start: 02-13-2022 History SDOH Alcohol Std Drinks 0 [facility] Start: 02-12-2022 End: 08-25-2023 Never a smoker Never a smoker [facility] Start: 02-12-2022 End: 08-25-2023 Social connection and isolation panel [facility] How often do you get together with friends or relatives? Patient refused [facility] Do you belong to any clubs or organizations such as sabianism groups, unions, fraternal or athletic groups, or school groups? Yes [facility] Are you now , , , , never or living with a partner? [facility] How often to you hav e a drink containing alcohol? Never [facility] Do you feel stress - tense, restless, nervous, or anxious, or unable to sleep at night because your mind is troubled all the time - these days [OSQ] To some extent [facility] (I/We) worried wheth er (my/our) food would run out before (I/we) got money to buy more. Never true [facility] At any time in the p ast 12 months, were you homeless or living in longterm [including now]? No [facility] Start: 03-30-2020 Gender identity Identifies as female gender (finding) [facility] Start: 03-30-2020 Sexual orientation Heterosexual (finding) [facility] History of tobacco use Passive smoker [facility] How hard is it for y ou to pay for the very basics like food, housing, medical care, and heating Not very hard [facility] Do you feel stress - tense, restless, nervous, or anxious, or unable to sleep at night because your mind is troubled all the time - these days [OSQ] Very much [facility] Do you feel stress - tense, restless, nervous, or anxious, or unable to sleep at night because your mind is troubled all the time - these days [OSQ] Only a little [facility] Start: 06-07-2024 Sex Female (finding) [facility] Goals Date Patient Goal Desired Activity /State Personal health goal Clinical Notes 05-22-2016 to 01-25-2024 Telephone Encounter - Lorene Jauregui LPN - 01/25/2024 8:29 AM ESTTelephone Encounter - Lorene Jauregui LPN - 01/25/2024 8:29 AM ESTTelephone Encounter - Elisabeth Barber MA - 12/31/2023 3:19 PM EDT Note Date & Type Note Facility 01-25-2024 Telephone encounter Note Fax received from [facility] requesting sleep study and office visit notes supporting use of cpap. Sleep study from 2015 as well as office visit notes from 11/28/22 and 09/25/23 faxed to [facility] at [phone]. Transmission successful, paperwork in fax drawer. [facility] 01-25-2024 Miscellaneous Notes Fax received from [facility] requesting sleep study and office visit notes supporting use of cpap. Sleep study from 2015 as well as office visit notes from 11/28/22 and 09/25/23 faxed to [facility] at [phone]. Transmission successful, paperwork in fax drawer. documented in this encounter [facility] 12-31-2023 Telephone encounter Note Fax received from [facility] for orders for Oxygen Concentrator and Supplies. E1390,E1392,A4615,A4616. 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 Placed in Dr. Grier's office to be signed. [facility] 12-31-2023 Miscellaneous Notes Fax received from [employer] for orders for Oxygen Concentrator and Supplies. E1390,E1392,A4250,A4615. 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 Placed in Dr. Grier's office to be signed. documented in this encounter [facility] 09-25-2023 History of Present illness Narrative Images [...] reports doing well. She moved into a fci with her at the beginning of June [...] spray Commonly known as: FLONASE Use 1 [place] in each nostril once daily. 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 Quality Assurance Director: YURIDIA Transcribe Date/Time: Sep 24 2023 8:39A Dictated by : MIGUEL ROJO MD This examination was interpreted and the report reviewed and electronically signed by: MIGUEL ROJO MD on Sep 24 2023 12:05PM EST Results-Findings * * *Final Report* * * DATE OF EXAM: Sep 18 2023 2:41PM [facility] 0541 - CT CHEST WO IVCON / [...] - Exam was compared with the prior echocardiographic exam performed on 01/24/20. There is [...] Neut (k/uL) Date Value 07/14/2023 4.78 Abs [place] (k/uL) Date Value 07/14/2023 0.80 12/21/2020 0.53 [...] of the patient and have reviewed the PA/VACUUM EVAPORATION OPERATOR note. Agree with plan as stated Mouna Vuong APRN-TREVA Pulmonary Medicine documented in this encounter [facility] 09-25-2023 Note HNO ID: [id number] Author: OFELIA CRUZ APRN.CNP Service: ? Author Type: Nurse Practitioner Type: Progress Notes Filed: 09/26/2023 07:45 Note Text: Attestation signed by Mouna Vuong APRN.CNP at 09/26/2023 7:45 AM Attending Note I have personally performed a face to face assessment of the patient and have reviewed the PA/VACUUM EVAPORATION OPERATOR note. Agree with plan as stated BRANDON [...] reports doing well. She moved into a fci with her at the beginning of June [...] information. erythromycin 5 (more content not included)... [facility] 09-25-2023 Note HNO ID: [id number] Author: ZAYRA MOON RRT Service: ? Author Type: Registered Resp Therapist Type: Progress Notes Filed: 09/25/2023 13:49 Note Text: PULM FUNCTION: Provider: Mouna Vuong APRN.CNP Spirometry: 1 DLCO: 1 LV - Box: 1 [facility] 09-25-2023 History of Present illness Narrative PULM FUNCTION: Provider: Mouna Vuong APRN.CNP Spirometry: 1 DLCO: 1 LV - Box: 1 documented in this encounter [facility] 09-18-2023 History of Present illness Narrative Radiology [...] PATIENT PRESENTS WITH AN IMPLANTABLE OR ATTACHED GAS DISTRIBUTION SUPERVISOR: No RADIOLOGY DEPARTMENT: CT; Exam(s) Completed: Chest PERIPHERAL IV DATA: Not applicable SIGNED BY: RT Carlos(Ebony) September 18, 2023 3:06 PM documented in this encounter [facility] 09-18-2023 Note HNO ID: [id number] Author: CHEYENNE ROTH RT(R) Service: ? Author Type: Model Maker Plaster Type: Progress Notes Filed: 09/18/2023 15:06 Note [...] PATIENT PRESENTS WITH AN IMPLANTABLE OR ATTACHED GAS DISTRIBUTION SUPERVISOR: No RADIOLOGY DEPARTMENT: CT; Exam(s) Completed: Chest PERIPHERAL IV DATA: Not applicable SIGNED BY: RT Carlos(Ebony) September 18, 2023 3:06 PM [facility] 09-15-2023 Telephone encounter Note No messages in chart from this office that patient was called recently. Looks like she has an appt for a scan in [place] this Thursday, may have been reminder call? [facility] 09-15-2023 Miscellaneous Notes No messages in chart from this office that patient was called recently. Looks like she has an appt for a scan in [place] this Thursday, may have been reminder call? Patient returning call from office Please advise documented in this encounter [facility] 09-15-2023 Telephone encounter Note Patient returning call from office Please advise [facility] 09-09-2023 Telephone encounter Note Spoke with [facility] pharmacy Advised pt will be getting from another pharmacy, [facility] Spoke with Lavinia pharmacist [facility] 09-09-2023 Miscellaneous Notes Spoke with [facility] pharmacy Advised pt will be getting from another pharmacy, [facility] Spoke with [place] pharmacist Patient called in stating she wants to use [facility] Received request on 09/02/23 for esbriet from [facility] and this was sent in for a year's supply. [facility]. Voicemail left for patient to return call to find out which pharmacy she is using for this prescription. Pharmacy verified in [facility] The phone number for [facility] in case of any questions. [phone] Patient has been identified by name and [...] 65.8 kg (145 lb) Not applicable Please adviseConner Grayson documented in this encounter [facility] 09-07-2023 Telephone encounter Note Patient called in stating she wants to use [facility] 09-07-2023 Telephone encounter Note Received request on 09/02/23 for esbriet from [facility] and this was sent in for a year's supply. [facility] refills. Voicemail left for patient to return call to find out which pharmacy she is using for this prescription. [facility] 09-07-2023 Telephone encounter Note Pharmacy verified in [facility] The phone number for [facility] in case of any questions. [phone] Patient has been identified by name and [...] lb) Not applicable Please advise. Barbara Grayson [facility] 09-02-2023 Telephone encounter Note Received a fax from [facility] requesting a refill on the following medication. Please file if appropriate. [facility] 09-02-2023 Miscellaneous Notes Received a fax from [facility] requesting a refill on the following medication. Please file if appropriate. documented in this encounter [facility] 08-26-2023 Telephone encounter Note Form faxed back to [facility]. Transmission with forms in drawer. [facility] 08-26-2023 Miscellaneous Notes Form faxed back to [facility]. Transmission with forms in drawer. Fax received from [facility] - [facility] Form placed on dr grier's desk for review/signature. documented in this encounter [facility] 08-17-2023 Telephone encounter Note Fax [facility] from [facility]. Form placed on dr grier's desk for review/signature. [facility] 08-10-2023 Telephone encounter Note Pt would like Dr. Espinoza to know she is in a fci [facility]. Pt would like the doctor to call Stacie Nurse Practitioner at facility [phone], regarding pt's meds. Pt concerned RING SPINNER would like to change medications. PT call back # [phone] Genevieve Fountain LPN [facility] 08-10-2023 Miscellaneous Notes Pt would like Dr. Espinoza to know she is in a fci [facility]. Pt would like the doctor to call Stacie Nurse Practitioner at facility [phone], regarding pt's meds. Pt concerned RING SPINNER would like to change medications. PT call back # [phone] Genevieve Fountain LPN documented in this encounter [facility] 07-24-[address] Neris SINGLETON [facility] 07-24-[address] Neris SINGLETON documented in this encounter [facility] 07-23-2023 Telephone encounter Note Re-faxed with successful transmission [facility] 07-23-2023 Miscellaneous Notes Re-faxed with successful transmission Char thomas [facility] is calling back and states that they did not receive the faxed form. Char asking to have the form faxed again. Char will be out of the office tomorrow. If you need to reach office, please contact Brinda Fernandez @ [phone] Request completed and faxed. Forms completed. In outbox. Thanks Сергей Espinoza MD Type of letter/form/fax request - Forms Form received from [facility] Placed on MD desk () for completion. Completed form needs to be faxed to [phone]. Route to [place] when form completed for processing documented in this encounter [facility] 07-23-2023 Telephone encounter Note Char from [facility] is calling back and states that they did not receive the faxed form. Char asking to have the form faxed again. Char will be out of the office tomorrow. If you need to reach office, please contact Brinda Fernandez @ [phone] [facility] 07-23-2023 Telephone encounter Note Request completed and faxed. [facility] 07-23-2023 Telephone encounter Note Forms completed. In outbox. Thanks Сергей Espinoza MD [facility] 07-22-2023 Telephone encounter Note Type of letter/form/fax request - Forms Form received from [employer] Placed on MD desk () for completion. Completed form needs to be faxed to [phone]. Route to OK when form completed for processing [facility] 07-22-2023 Telephone encounter Note Pharmacy verified in [facility] Patient has been identified by name and [...] Not applicable Please advise. Jaclyn Rose MA [facility] 07-22-2023 Miscellaneous Notes Pharmacy verified in [facility] Patient has been identified by name and [...] Jaclyn Rose MA documented in this encounter [facility] 07-17-2023 Telephone encounter Note Pharmacy verified in [facility] Patient has been identified by name and [...] Not applicable Please advise. Jaclyn Rose MA [facility] 07-17-2023 Miscellaneous Notes Pharmacy verified in [facility] Patient has been identified by name and [...] Jaclyn Rose MA documented in this encounter [facility] 07-16-2023 Telephone encounter Note Referral source: Brayden Murdock MD ([facility] [place]) Reason for visit: chronic migraine evaluation External records: Sent with referral Triage: Not required Financial clearance: Not required to schedule [facility] 07-16-2023 Miscellaneous Notes Referral source: Brayden Murdock MD ([facility] [place]) Reason for visit: chronic migraine evaluation External records: Sent with referral Triage: Not required Financial clearance: Not required to schedule documented in this encounter [facility] 07-15-2023 Telephone encounter Note Last appointment: 07/09/23 Next appointment: 08/29/23 Pharmacy verified in [facility]. Refill(s) requested: Requested Prescriptions Pending Prescriptions Disp Refills nortriptyline (PAMELOR) 75 mg capsule 90 capsule 3 Sig: Take 1 capsule by mouth daily at bedtime. Order(s) pended. Please advise. Tana Julien MA, SHOT POLISHER [facility] 07-15-2023 Miscellaneous Notes Last appointment: 07/09/23 Next appointment: 08/29/23 Pharmacy verified in [facility]. Refill(s) requested: Requested Prescriptions Pending Prescriptions Disp Refills nortriptyline (PAMELOR) 75 mg capsule 90 capsule 3 Sig: Take 1 capsule by mouth daily at bedtime. Order(s) pended. Please advise. Tana Julien MA, SHOT POLISHER documented in this encounter [facility] 07-14-2023 Telephone encounter Note Luc, Just wanted to let you know your medication has been approved until the end of the year! Have a great day! [facility] 07-14-2023 Miscellaneous Notes Luc, Just wanted to let you know your medication has been approved until the end of the year! Have a great day! documented in this encounter [facility] 07-14-2023 Telephone encounter Note Last appointment: 07/29/23 Next appointment: 08/29/23 Pharmacy verified in [facility]. Refill(s) requested: Requested Prescriptions Pending Prescriptions Disp Refills triamcinolone acetonide (KENALOG) 0.5 % cream 15 g 1 Sig: Apply to affected area three times a day. Order(s) pended. Please advise. Tana Julien MA, SHOT POLISHER [facility] 07-14-2023 Miscellaneous Notes Last appointment: 07/29/23 Next appointment: 08/29/23 Pharmacy verified in [facility]. Refill(s) requested: Requested Prescriptions Pending Prescriptions Disp Refills triamcinolone acetonide (KENALOG) 0.5 % cream 15 g 1 Sig: Apply to affected area three times a day. Order(s) pended. Please advise. Tana Julien MA, SHOT POLISHER documented in this encounter [facility] 07-14-2023 Telephone encounter Note Prior auth was approved for the Fluticasone Prop HFA 110 MCG thru 03/01/2024. Scanned to [facility]. [facility] 07-14-2023 Miscellaneous Notes Prior auth was approved for the Fluticasone Prop HFA 110 MCG thru 03/01/2024. Scanned to [facility]. Pharmacy electronically requests the following refill(s) Requested Prescriptions Pending Prescriptions Disp Refills fluticasone (FLOVENT) 110 mcg/actuation inhaler 1 Each 11 Sig: Inhale 1 Puff as instructed two times a day. Shake well before use. Rinse mouth after use. Elisabeth Barber MA ERIS 03/24/[address] Grier follow up appt 07/22/2023 with Mouna Vuong. Please advise. documented in this encounter [facility] 07-14-2023 Telephone encounter Note Pharmacy electronically requests the following refill(s) Requested Prescriptions Pending Prescriptions Disp Refills fluticasone (FLOVENT) 110 mcg/actuation inhaler 1 Each 11 Sig: Inhale 1 Puff as instructed two times a day. Shake well before use. Rinse mouth after use. Elisabeth Barber MA ERIS 03/24/[address] Grier follow up appt 07/22/2023 with Mouna Vuong. Please advise. [facility] 07-13-2023 Telephone encounter Note I called pt and left detailed message about UA ordered [facility] 07-13-2023 Miscellaneous Notes I called pt and [...] Protocols used: Information Only Call - No [id number]-[id number] documented in this encounter [facility] 07-13-2023 Telephone encounter Note Urine ordered Сергей Espinoza MD [facility] 07-13-2023 Telephone encounter Note Answer Assessment - [...] Protocols used: Information Only Call - No [id number]-HV [facility] Work Phone: 07-10-2023 Telephone encounter Note Spoke with pt, reviewed below message. Verbalized understanding, no further questions. [facility] 07-10-2023 Miscellaneous Notes Spoke with pt, reviewed [...] Сергей Espinoza MD documented in this encounter [facility] 07-10-2023 Telephone encounter Note Please let patient [...] recheck her sodium. Thanks, Сергей Espinoza MD [facility] 07-09-2023 Note HNO ID: [id number] Author: ЕСРГЕЙ ESPINOZA MD Service: ? Author Type: Physician Type: Progress Notes Filed: 07/09/2023 10:15 Note Text: ESTABLISHED PATIENT Merna Webster is a 83 year old female presenting for [facility] Evaluation HISTORY OF PRESENT ILLNESS Patient is moving in to [place] [employer] [facility]. Happy to be moving in with her as they have been apart for over 1 year. Going to pain medicine in [place]. Has arthritis in the right hip. Has [...] (HCC) (J96.11) Chronic respiratory failure with hypoxia ([facility]) (E03.9) Acquired hypothyroidism (M16.11) Primary osteoarthritis of right hip (F33.42) Recurrent major depressive disorder, in full remission ([facility]) (F41.9) Anxiety PLAN: Continue xanax. Works well. [...] (FLONASE) 50 mcg/actuation nasal spray Use 1 [place] in each nostril once daily. betamethasone valerate [...] THERAPY, Please dis (more content not included)... [facility] 07-09-2023 History of Present illness Narrative ESTABLISHED PATIENT Merna Webster is a 83 year old female presenting for [facility] Evaluation HISTORY OF PRESENT ILLNESS Patient is moving in to [place] [employer]. Happy to be moving in with her as they have been apart for over 1 year. Going to pain medicine in [place]. Has arthritis in the right hip. Has [...] (FLONASE) 50 mcg/actuation nasal spray Use 1 [place] in each nostril once daily. betamethasone valerate [...] due on 03/16/2023 documented in this encounter [facility] 07-09-2023 Instructions Callie Taylor MA - 07/09/2023 8:07 AM EDT [facility] TEST INFORMATION [facility] HOURS: Lab is open: 7:30am to 5:00pm M - Th, 7:30am to 4:00pm on Thu and 8am -12pm on Thu. The lab is located in [facility] on the first floor. There is a registration window at the lab, available 7 am to 3 pm Thursday - Thursday. If registration is unavailable at the lab, you may register at the patient registration office near the front lobby of the hospital. SCHEDULING A LAB APPOINTMENT: Laboratory appointments are recommended.Walk ins are still accepted. Call [phone] or schedule via [employer] scheduling ticket. ROUTINE LAB ORDERS 60 days [...] REFILL REQUESTS Request prescription refills through your [employer] account or contact your Pharmacy. My Chart Schedule My Appointment enables you to view your established primary care provider's open schedule and book an appointment online in real-time. This feature is available in internal medicine, family medicine, or pediatrics at any of our [facility] locations and main campus. documented in this encounter [facility] 07-09-2023 Note HNO ID: [id number] Author: CALLIE TAYLOR MA Service: ? Author Type: Pan Greaser Type: Progress Notes Filed: 07/09/2023 10:15 Note Text: RSV Vaccine(1 - 1-dose 60+ series) Never done Bone Density Screening due on 09/05/2007 Advance Directive Discussion due on 03/02/2023 Covid-19 Vaccine( season) due on 03/16/2023 [facility] 06-30-2023 Instructions Mouna Baez APRN.CNP - 06/30/2023 3:29 PM EDT Your heart [...] with Dr. Espinoza documented in this encounter [facility] 06-30-2023 Note HNO ID: [id number] Author: MOUNA BAEZ APRN.TREVA Service: ? Author Type: Nurse Practitioner Type: Progress Notes Filed: 07/03/2023 12:57 Note Text: [facility] [place] Shadia Newman Department of Cardiovascular Medicine SECTION [...] which included preparing to see the patient, jacg-jt-[id number] patient care, completing clinical documentation, performing a [...] arise prior to the follow up. Mouna Baez, FLOOR ATTENDANT.[facility] Cardiology Nurse Practitioner Section of [facility] Card[facility] Dept of Cardiovascular Medicine [facility] [place] [address] [place] [address] Office Office June 30, 2023 3:07 PM This note was partially generated using [facility] voice recognition system and may contain errors related to that system including grammar, punctuation, spelling, and words that may be inappropriate. CARDIAC STUDIES: LV Ejection Fraction (%) Date Value 01/29/2023 57 01/24/2020 60 Last ECHO Result Conclusion ECHO Collected: 01/29/2023 2:02 PM (Final result) Impression: CONCLUSIONS: - Exam indication: Suspected pulmonary hypertension - The left ventricle is nor (more content not included)... [facility] 06-30-2023 History of Present illness Narrative Images from the original note were not included. [facility] [place] Shadia Newman Department of Cardiovascular Medicine SECTION [...] which included preparing to see the patient, fzyw-bq-zbad patient care, completing clinical documentation, performing a [...] arise prior to the follow up. Mouna Baez, DAKOTAH.[facility] Cardiology Nurse Practitioner Section of [facility] Cardiology [facility] Dept of Cardiovascular Medicine [facility] [place] [address] Office Office June 30, 2023 3:07 PM This note was partially generated using [facility] voice recognition system and may contain errors [...] - Exam was compared with the prior echocardiographic exam performed on 01/24/20. There is [...] WAS FOUND Confirmed by MD SAMANTHA, SHERLEY ([id number]) on 12/08/2022 4:24:[address] Result Conclusion CT CHEST WO IVCON Exam End: 07/09/2022 4:25 PM (Final result) Impression: IMPRESSION: 1. 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 No significant interval change 2. No definite nodules are seen on this study 3. Findings are again compatible with Pulmonary arterial hypertension Quality Assurance Director: [facility] Transcribe Date/Time: Jul 16 2022 1:20P Dictated [...] PFSH and ROS obtained by others. Mouna Baez, FLOOR ATTENDANT.SAND MILL OPERATOR CURRENT MEDICATIONS: Current Outpatient Medications Medication Sig [...] (FLONASE) 50 mcg/actuation nasal spray Use 1 [place] in each nostril once daily. betamethasone valerate [...] INTRAVENOUS DIRECTED PRN documented in this encounter [facility] 06-30-2023 Note Patient Outreach (IN TMMN) JAMILMERNA ([id number]) 1940 F NFR Date Time Provider Department [...] [E78.00] Order(s):LIPID PANEL BASIC [SQLIPB] Order #: [id number] FUTURE Prescriptions as of 07/03/2023 - gabapentin [...] (FLONASE) 50 mcg/actuation nasal spray Use 1 [place] in each nostril once daily. - betamethasone [...] [M16.10] 09/04/2005 Pes anserinus tendinitis or bursitis [DQB5544] 09/04/2005 07/22/2017 PLANTAR FIBROMATOSIS [M72.2] 09/04/2005 Backache, unspecified [M54.9] 09/24/2005 04/23/2017 Thoracic or lumbosacral neuritis or radiculitis*09/24/2005 07/22/2017 Pathologic fracture of vertebrae [M84.48XA] 10/13/2005 07/22/2017 Osteoporosis [M81.0] 10/13/2005 DIVERTICULOSIS OF COLON W/O BLEED [K57.30] osteoporosis [M89.9, M94.9] 04/23/2017 LUMB/LUMBOSAC DISC DEGEN [M51.37] CERVICALGIA [M54.2] 09/10/2007 Lumbago [M54.50] 09/10/2007 04/23/2017 Sprain of neck [ (more content not included)... [facility] 06-29-2023 Telephone encounter Note Patient is scheduled [facility] 06-29-2023 Miscellaneous Notes Patient is scheduled Called [...] day or sometime after breathing tests. ThanksTomasa APRN.CNP Patient does not have an appointment with a provider on 07/21 - appt is just for pfts. documented in this encounter [facility] 06-29-2023 Telephone encounter Note Called and spoke with patient. Omnicef had made her nauseous. Will send zpak and prednisone burst for possible asthma vs ILD flare. Continue arnuity. I informed her she did not have appointment with provider the day of her PFTs 07/21. Please arrange for appointment with Mouna Stephen, or myself if able either that day or sometime after breathing tests. Thanks, Tomasa Ramirez APRN.CNP [facility] 06-29-2023 Telephone encounter Note Patient does not have an appointment with a provider on 07/21 - appt is just for pfts. [facility] 06-24-2023 Telephone encounter Note Pharmacy verified in [facility] Patient has been identified by name and [...] 11/03/2019 100 Please advise. Maritza Jorgensen LPN [facility] 06-24-2023 Miscellaneous Notes Pharmacy verified in [facility] Patient has been identified by name and [...] Maritza Jorgensen LPN documented in this encounter [facility] 06-22-2023 Telephone encounter Note Forms faxed back to [facility]. Transmission with forms in drawer. [facility] 06-22-2023 Miscellaneous Notes Forms faxed back to [facility]. Transmission with forms in drawer. [facility] A7039, A7034, A7038, A7036, A7037, A7046, A9279, E0562, E0601 A7035, A7032 all for c-pap supplies placed in Dr. Grier's in basket. documented in this encounter [facility] 06-19-2023 Miscellaneous Notes Order at front end manager, pt advised Order in outbox Сергей Espinoza MD documented in this encounter [facility] 06-19-2023 Telephone encounter Note [facility] for A7039, A7034, A7038, A7036, A7037, A7046, A9279, E0562, E0601 A7035, A7032 all for c-pap supplies placed in Dr. Grier's in basket. [facility] 06-12-2023 Miscellaneous Notes PDMP website checked and validated. All prescriptions have been APPROPRIATELY filled. No suspicious activity was identified. 06/12/2023 by Сергей Espinoza MD Pharmacy verified in [facility] Patient has been identified by name and [...] Maritza Jorgensen LPN documented in this encounter [facility] 06-11-2023 Miscellaneous Notes Last appointment: 05/25/23 Next appointment: 08/29/23 Pharmacy verified in [facility]. Refill(s) requested: Requested Prescriptions Pending Prescriptions Disp Refills ALPRAZolam (XANAX) 1 mg tablet 90 tablet 0 Sig: Take 1 tablet by mouth three times a day as needed for sedation or anxiety for up to 30 days. Order(s) pended. Please advise. Stacey Shaffer MA, SHOT POLISHER documented in this encounter [facility] 05-25-2023 Note HNO ID: [id number] Author: СЕРГЕЙ ESPINOZA MD Service: ? Author Type: Physician Type: Progress Notes Filed: 05/31/2023 21:42 Note Text: ESTABLISHED PATIENT Merna Webster is a 83 year old female presenting for Follow Up. HISTORY OF PRESENT ILLNESS Here with relative Patient thinks she has another UTI. Was recently in [place] ER. Had chills the other night. Has [...] 160/80 03/24/2023 157/76 Hoping to get into fci this summer. Has some issues with ADLs. [...] TUBE OVARY 1994 Hysterectomy, RAPHAEL - menorrhagia AND fibroids Social [...] fluticasone (FLONASE) 50 mcg/actuation nasal sprayUse 1 [place] in each nostril once daily.Disp: 1 EachRfl: [...] tablet (100 mg) (more content not included)... [facility] 05-25-2023 Note HNO ID: [id number] Author: CALLIE TAYLOR MA Service: ? Author Type: Pan Greaser Type: Progress Notes Filed: 05/31/2023 21:42 Note Text: RSV Vaccine(1 - 1-dose 60+ series) Never done Advance Directive Discussion due on 03/02/2023 Covid-19 Vaccine( season) due on 03/16/2023 [facility] 05-24-2023 Miscellaneous Notes Reason for Call: Pt [...] : na. Protocols used: Urination Pain - [id number] documented in this encounter [facility] 05-13-2023 Miscellaneous Notes Last appointment: 02/27/23 Next appointment: 05/22/23 Pharmacy verified in [facility]. Refill(s) requested: Requested Prescriptions Pending Prescriptions Disp Refills ALPRAZolam (XANAX) 1 mg tablet 90 tablet 0 Sig: Take 1 tablet by mouth three times a day as needed for sedation or anxiety for up to 30 days. Order(s) pended. Please advise. Tana Julien MA, SHOT POLISHER documented in this encounter [facility] 05-12-2023 Miscellaneous Notes pended See patient comment and please pend needed meds. Last appointment: 01/19/23 Next appointment: 05/22/23 Pharmacy verified in [facility]. Refill(s) requested: Requested Prescriptions Pending Prescriptions Disp Refills triamcinolone acetonide (KENALOG) 0.5 % cream 15 g 1 Sig: Apply to affected area three times a day. fluticasone furoate (ARNUITY ELLIPTA) 100 mcg/actuation inhaler 3 Each 4 Sig: Inhale 1 Puff as instructed once daily. Order(s) pended. Please advise. Destiny Asencio LPN, SHOT POLISHER documented in this encounter [facility] 05-11-2023 Miscellaneous Notes Patient requests via MyChart [...] with a provider. documented in this encounter [facility] 05-04-2023 Miscellaneous Notes See other encounter documented in this encounter [facility] 05-04-2023 Miscellaneous Notes Spoke with patient. Patient stated they are already seeing a pain management doctor [facility]. Dr. Butler. Patient declined scheduling. Thanks Negrita Becerril PSS: Please call pt and assist in scheduling for pain management. documented in this encounter [facility] 05-04-2023 Miscellaneous Notes Pharmacy verified in [place]. Patient has been identified by name and [...] Navya Burr MA documented in this encounter [facility] 05-01-2023 Miscellaneous Notes Addressed in triage encounter. Sabine Goyal RN Please triage. Thanks, Brinda Dominguez APRN.SAND MILL OPERATOR documented in this encounter [facility] 05-01-[address] Olga blackwood forgot to tell the nurse about Dr Johnson thought l might have cellulitis l will see Thursday at five and we can discuss it more ok thank you Merna Jamil Triaged patient. Same rash as when seen 02/27 by Angelica. No new symptoms. Will be assessed Thursday at OV. Patient verbalizes understanding and has no other questions or concerns at this time. Sabine Goyal RN Answer Assessment - Initial Assessment Questions 1. [...] last menstrual period?" Protocols used: Wound Infection [id number] documented in this encounter [facility] 04-29-2023 Miscellaneous Notes Noted/agree. Brinda Dominguez APRN.SAND MILL OPERATOR Called and spoke to pt. Runny nose [...] weight. Please triage. documented in this encounter [facility] 04-23-2023 Note HNO ID: [id number] Author: IGOR JOHNSON, DO Service: ? Author Type: Physician Type: Progress Notes Filed: 04/24/2023 09:54 Note Text: [facility] SECTION OF [facility] CARDIOLOGY [facility] OUTPATIENT VISIT DATE April 23, 2023 PRIMARY CARE PHYSICIAN: Сергей Espinoza [address] [place] [address] HISTORY OF PRESENT ILLNESS: Ms. Webster is [...] currently alone as her resides in a fci due to challenges with him having inability [...] for immunocompromised state. (more content not included)... [facility] 04-23-2023 Nurse Note EVENT MONITOR DISPOSABLE PATCH INSTRUCTIONS Patient Name: Merna Webster Clinic Number: [id number] Skin prepped and cleansed with alcohol Patch secured to prepped area Monitor Activated Serial #: [id number] Patient Instructed: Prescribed order timeframe Bathing guidelines Usage of event button and diary documentation Return of monitor at the end of prescribed order Call with problems [phone] or [phone]. [phone] Patient expresses a good understanding of instructions Hayes Rubio LPN documented in this encounter [facility] 04-23-2023 History of Present illness Narrative Images from the original note were not included. [facility] SECTION OF [facility]AL CARDIOLOGY [facility] OUTPATIENT VISIT DATE April 23, 2023 PRIMARY CARE PHYSICIAN: Сергей Espinoza [address] [place] [address] HISTORY OF PRESENT ILLNESS: Ms. Webster is [...] currently alone as her resides in a fci due to challenges with him having inability to walk. She has never smoked nor drank. 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 had diverticulum. TONSILLECTOMY & ADENOIDECTOMY <AGE 13 [...] fluticasone (FLONASE) 50 mcg/actuation nasal spray^Use 1 [place] in each nostril two times a day.^Disp: [...] 1 Device^Rfl: 0 Igor Johnson DO, FACC, FAC Health Consultant, [facility] Ambulatory Cardiology Health Consultant, [facility] Cardiac Rehabilitation Health Consultant, [facility] Cardiac Rehabilitation Health Consultant, [facility] Congestive Heart Failure Clinic Health Consultant, [facility] Ambulatory Cardiology Clinical Phlebotomy Coordinator Profressor of Medicine, [facility] Staff Pipe Fitter Supervisor Maintenance, Shadia Lyle Department of Cardiovascular Medicine/[facility] [place], [facility] Please note: This note has been produced using speech recognition software and may contain errors related to that system including kim, punctuation, spelling, words, gender and phrases that may be inappropriate. documented in this encounter [facility] 04-23-2023 Miscellaneous Notes Last appointment: 02/27/23 Next appointment: 05/04/23 Pharmacy verified in [place]. Refill(s) requested: Requested Prescriptions Pending Prescriptions Disp Refills betamethasone valerate 0.1 % ointment 15 g 1 Sig: Apply to affected area two times a day. Order(s) pended. Please advise. Tana Julien MA, SHOT POLISHER documented in this encounter [facility] 04-16-2023 Miscellaneous Notes Pt left VM on RN line stating she has diarrhea [...] / day more than normal) Protocols used: Axwocsne-WJFXU-ZS documented in this encounter [facility] 04-14-2023 Miscellaneous Notes [facility] and [facility]. All prescriptions have been APPROPRIATELY filled. No suspicious activity was identified. 04/14/2023 by Brinda Doimnguez APRN.TREVA Last appointment: 02/27/23 Next appointment: 05/04/23 Pharmacy verified in [place]. Refill(s) requested: Requested Prescriptions Pending Prescriptions Disp Refills ALPRAZolam (XANAX) 1 mg tablet 90 tablet 0 Sig: Take 1 tablet by mouth three times a day as needed for sedation or anxiety for up to 30 days. Order(s) pended. Please advise. Tana Julien MA, [facility] documented in this encounter [facility] 03-31-2023 Miscellaneous Notes I had a online chat session with Dona from [employer]. She states they don't show any Compliance report on Merna. The reason may be her machine does not transmit electronically and don't have a the Nanostellar card on the patient to download the information. Just an FYI. documented in this encounter [facility] 02-13-2023 Miscellaneous Notes [facility] checked and validated. All prescriptions have been APPROPRIATELY filled. No suspicious activity was identified. 02/13/2023 by Brinda Dominguez APRN.SAND MILL OPERATOR Last appointment: 01/19/23 Next appointment: 05/04/23 Pharmacy verified in [facility]. Refill(s) requested: Requested Prescriptions Pending Prescriptions Disp Refills ALPRAZolam (XANAX) 1 mg tablet 90 tablet 0 Sig: Take 1 tablet by mouth three times a day as needed for sedation or anxiety for up to 30 days. Order(s) pended. Please advise. Tana Julien MA, SHOT POLISHER documented in this encounter [facility] 02-06-2023 Miscellaneous Notes Last appointment: 01/19/23 Next appointment: 05/04/23 Pharmacy verified in [facility]. Refill(s) requested: Requested Prescriptions Pending Prescriptions Disp Refills SUMAtriptan (IMITREX) 100 mg tablet 9 tablet 1 Sig: Take 1 tablet (100 mg) by mouth as needed for migraine headache (see administration instructions). at onset of headache.May repeat after 2 hours. Order(s) pended. Please advise. Lauren Garcia LPN SHOT POLISHER documented in this encounter [facility] 02-01-2023 Miscellaneous Notes Reason for Call: Patient calling with request for covid questions. Patient denies any new or worsening symptoms of which a provider is not aware: Yes. documented in this encounter [facility] 01-19-2023 History of Present illness Narrative ESTABLISHED [...] due on 10/31/2022 documented in this encounter [facility] 01-19-2023 Instructions Callie Taylor - 01/19/2023 6:35 PM EST [facility] TEST INFORMATION [facility]RS: Lab is open: 7:30am to 5:00pm M - , 7:30am to 4:00pm on Thu and 8am -12pm on Thu. The lab is located in [facility] on the first floor. There is a registration window at the lab, available 7 am to 3 pm Thursday - Thursday. If registration is unavailable at the lab, you may register at the patient registration office near the [facility]. SCHEDULING A LAB APPOINTMENT: Laboratory appointments are recommended.Walk ins are still accepted. Call [phone] or schedule via [employer] scheduling ticket. ROUTINE LAB ORDERS 60 days [...] REFILL REQUESTS Request prescription refills through your [employer] account or contact your Pharmacy. My Chart Schedule My Appointment enables you to view your established primary care provider's open schedule and book an appointment online in real-time. This feature is available in internal medicine, family medicine, or pediatrics at any of our [facility] locations and main campus. documented in this encounter [facility] 01-06-2023 Miscellaneous Notes Spoke with patient, said she doesn't need to reschedule now. Please my chart, assist patient with rescheduling Patient is scheduled Please help patient get an appt Сергей Espinoza MD documented in this encounter [facility] 12-30-2022 Miscellaneous Notes We received a fax stating 2022 [employer] Formulary has changed for Flovent Alternative Drug is [employer] Ell[employer]. Form to be scanned in chart tomorrow and placed in drawer. FYI. documented in this encounter [facility] 12-18-2022 Miscellaneous Notes PDMP website checked and validated. All prescriptions have been APPROPRIATELY filled. No suspicious activity was identified. 12/18/2022 by Brinda Dominguez APRN.SAND MILL OPERATOR Last appointment: 11/12/22 Next appointment: 01/19/23 Pharmacy verified in [facility]. Refill(s) requested: Requested Prescriptions Pending Prescriptions Disp Refills ALPRAZolam (XANAX) 1 mg tablet 90 tablet 0 Sig: Take 1 tablet by mouth three times a day as needed for sedation or anxiety for up to 30 days. Order(s) pended. Please advise, thank you. Cha TAYLOR December 18, 2022 11:34 AM documented in this encounter [facility] 12-17-2022 Miscellaneous Notes Form was completed, form, Last oV note, and sleep studies from 2016 were faxed to [facility] at . Fax Confirmation was received and forms were placed in the fax drawer. Fax received from [facility] - form for cpap order. Form placed on dr grier's desk for review/signature. documented in this encounter [facility] 12-17-2022 Miscellaneous Notes There are MANY other phone encounters regarding this. Order and supporting documents have been sent to [facility] several times, have spoken with [facility] several times regarding this as well as with the patient many times. As documented in previous phone encounter, yesterday afternoon we received a faxed form for the cpap settings - this was placed in dr grier's inbox to await completion. Hi my name is Joanne I'm calling with [facility] in regards to Isis Webster. Date of [...] an order request. Our phone number is [phone]. Thank you and have a good day." Patient needs a new script for CPAP sent to her durable medical supplier. documented in this encounter [facility] 12-16-2022 Miscellaneous Notes Opened i documented in this encounter [facility] 12-08-2022 Miscellaneous Notes Called and spoke with 2 different reps at [facility] - they both confirm they did [...] rings with no answer. Called back and [facility] rep states she does not know why no one is answering the phone. She suggests patient go to the [facility] office directly - I did let rep know that it appears their office is an hour drive away for patient, this is not an acceptable option. States she will send an email to the person who handles cpap orders to try to find out why this was not sent to patient. documented in this encounter [facility] 11-28-2022 Miscellaneous Notes Done. I will nd her a message. thanks Medication was set up and preferred pharmacy was selected. Please advise. Patient was in office today and is asking if azythromycin and prednisone can be sent to [facility] in [place] instead of [facility]? She also states she takes medicine for her migraines and is asking if that medication is safe to take with the azythromycin and prednisone? Please advise, patient states to just send her a message on [employer] letting her know. documented in this encounter [facility] 11-28-2022 Note HNO ID: [id number] Author: Lucia Han RT(Ebony) Service: Radiology Author Type: Model Maker Plaster Type: Progress Notes Filed: 11/28/2022 12:12 PM [...] IV DATA: Not applicable SIGNED BY: RT Louann(R) November 28, 2022 12:11 PM [facility] 11-28-2022 History of Present illness Narrative Radiology [...] IV DATA: Not applicable SIGNED BY: RT Louann(R) November 28, 2022 12:11 PM documented in this encounter [facility] 11-28-2022 History of Present illness Narrative Images [...] and during nighttime Living by herself[facility] Nephew accompanying her today- discussed other possibilities like assisted living vs [place] or visiting nurse Most recent CT scan [...] are again compatible with Pulmonary arterial hypertension Quality Assurance Director[facility] Transcribe Date/Time: Jul 16 2022 1:20P Dictated [...] cardiology Sona Grier MD, [facility]O Staff, Respiratory [place] [facility] documented in this encounter [facility] 11-19-2022 Miscellaneous Notes PDMP website checked and validated. All prescriptions have been APPROPRIATELY filled. No suspicious activity was identified. 11/19/2022 by Brinda Dominguez APRN.SAND MILL OPERATOR Last appointment: 11/12/22 Next appointment: 12/24/22 Pharmacy verified in [facility]. Refill(s) requested: Requested Prescriptions Pending Prescriptions Disp Refills ALPRAZolam (XANAX) 1 mg tablet 90 tablet 0 Sig: Take 1 tablet by mouth three times daily as needed for sedation or anxiety for up to 30 days. Order(s) pended. Please advise,thank you. Cha TAYLOR November 19, 2022 2:27 PM documented in this encounter [facility] 11-18-2022 Miscellaneous Notes Reason: Patient calling with [...] Patient notes that her [facility] and that she is anxious as she [...] have any questions, you can call Nurse ornamental iron worker helper back. documented in this encounter [facility] 11-17-2022 Miscellaneous Notes . documented in this encounter [facility] 11-17-2022 Miscellaneous Notes 17 pages sent over to [employer] at fax # [phone] Please send CPAP supply orders to her [employer] company Thank you documented in this encounter [facility] 11-17-2022 Miscellaneous Notes Addended by: KENYON ZUNIGA on: 11/17/2022 04:17 PM Modules accepted: Orders documented in this encounter [facility] 11-11-2022 Miscellaneous Notes Images from the original note were not included. Merna Kingsleyerger "Merna Webster" [facility] (supporting Сергей Espinoza MD) Yesterday [...] Merna Dunn Called pt regarding MyChart message. Thursday night BP was 152/102. Last evening BP also was elevated, Merna was worried about some news received from the [facility] that Zach was exposed to Covid, so [...] >= 100 Protocols used: Blood Pressure - [id number] documented in this encounter [facility] 11-10-2022 Miscellaneous Notes Completed forms received from dr grier and faxed back to [facility]. Transmission successful, paperwork in fax drawer. Fax received from [facility] - form for oxygen order [id number], [id number], [id number], [id number]. Form placed on dr grier's desk for review/signature. documented in this encounter [facility] 11-05-2022 Miscellaneous Notes Second attempt at contacting patient, left VM to schedule sooner with an RING SPINNER if she would like First attempt: left message for patient to call back and schedule appointment documented in this encounter [facility] 10-30-2022 Miscellaneous Notes Reply to Pt has been sent. documented in this encounter [facility] 10-24-2022 Note HNO ID: [id number] Author: Mouna Kenney Tech Service: Radiology Author Type: Model Maker Plaster Type: Progress Notes Filed: 10/24/2022 2:46 PM [...] Octavio Dale October 24, 2022 2:45 PM [facility] 10-24-2022 History of Present illness Narrative Associated Order(s): Large Joint Arthro/Inj: R knee joint Images from the original note were not included. SERVICE DATE: October 24, 2022 PCP: Сергей Espinoza MD Patient was self-referred. Large Joint Arthro/Inj: R knee joint Informed Consent Consent Obtained: Verbal [place] Protocol A moment to CARE was completed. [...] - New, Knee Pain PAIN EVALUATION 10/24/2022 1449 Pain Level: -- 6-8/10-Bilat Knee, right shoulder [...] TIME: 3:57 PM documented in this encounter [facility] 10-24-2022 History of Present illness Narrative Radiology [...] 2022 2:45 PM documented in this encounter [facility] 10-23-2022 Miscellaneous Notes See triage documented in this encounter [facility] 10-23-2022 Miscellaneous Notes Called to triage/discuss, no answer, left [facility] message: l am having a problem with [...] Protocols used: No Contact or Duplicate Contact [id number]-EF documented in this encounter [facility] 10-21-2022 Miscellaneous Notes Last appointment: 09/29/22 Next appointment: 01/19/23 Pharmacy verified in [place]. Refill(s) requested: Requested Prescriptions Pending Prescriptions Disp Refills ALPRAZolam (XANAX) 1 mg tablet 90 tablet 0 Sig: Take 1 tablet by mouth three times daily as needed for sedation or anxiety for up to 30 days. Order(s) pended. Please advise. Cha TAYLOR October 21, 2022 3:28 PM documented in this encounter [facility] 10-07-2022 History of Present illness Narrative POPULATION HEALTH NAVIGATION OUTREACH Action/FYI 2nd call, left vm Patient Identified by Name and : NO Outreach Outcome/Action Unable to reach patient: Left message MyChart message sent Did you use a PCP flex slot to schedule this appointment? No Reason for Outreach Care Gap or Scheduling/Wellness visits Payer: Payor: [employer] MEDICARE / Plan: [employer] PLUS / Product Type: HMO / Care Gap Reviewed:: Specialty Scheduling Reminder: Reminder note to check Health Maintenance for items below Health Maintenance items due: COVID-19 VACCINE(5 - Pfizer series) due on 04/15/2022 Navigation Signature: Joanne Iyer October 07, 2022 3:04 PM documented in this encounter [facility] 10-01-2022 History of Present illness Narrative POPULATION HEALTH NAVIGATION OUTREACH Action/FYI Left vm Patient Identified by Name and : NO Outreach Outcome/Action Unable to reach patient: Left message MyChart message sent Did you use a PCP flex slot to schedule this appointment? No Reason for Outreach Care Gap or Scheduling/Wellness visits Payer: Payor: HU[employer] MEDICARE / Plan: [employer] / Product Type: HMO / Care Gap Reviewed:: Specialty Scheduling Reminder: Reminder note to check Health Maintenance for items below Health Maintenance items due: COVID-19 VACCINE(5 - Pfizer series) due on 04/15/2022 Navigation Signature: Joanne Iyer October 01, 2022 9:47 AM documented in this encounter [facility] 09-26-2022 Miscellaneous Notes Last OV 05/05/2022 F/U 10/27/2022 Patient's pharmacy requesting refills as follows: Requested Prescriptions Pending Prescriptions Disp Refills pirfenidone (ESBRIET) 801 mg tablet [Pharmacy Med Name: PIRFENIDONE 801MG Tablet] 90 tablet 5 Sig: TAKE 1 TABLET BY MOUTH 3 TIMES A DAY Please review and advise. Namrata Barber MA documented in this encounter [facility] 09-12-2022 Miscellaneous Notes Please review and advise documented in this encounter [facility] 09-09-2022 Miscellaneous Notes Spoke to pharmacist, aware [...] 1 tablet by mouth twice daily Contact Tirso Bah. Indigo Mena documented in this encounter [facility] 09-07-2022 Miscellaneous Notes Please change patient's appointment with me on 10/[address] Espinoza. If he doesn't have any openings, ok to use a virtual slot on a afternoon for OV. Thanks, Brinda Dominguez APRN.SAND MILL OPERATOR documented in this encounter [facility] 09-05-2022 History of Present illness Narrative ESTABLISHED [...] for new or worsening symptoms Brinda Dominguez APRN.SAND MILL OPERATOR There are no preventive care reminders to display for this patient. documented in this encounter [facility] 09-03-2022 History of Present illness Narrative Radiology [...] IV DATA: Not applicable SIGNED BY: RT Cristy(Ebony) September 03, 2022 3:55 PM documented in this encounter [facility] 08-25-2022 Miscellaneous Notes PDMP website checked and validated. All prescriptions have been APPROPRIATELY filled. No suspicious activity was identified. 08/25/2022 by Brinda Dominguez APRN.SAND MILL OPERATOR Pharmacy verified in [place]. Patient has been identified by name and [...] Navya Burr MA documented in this encounter [facility] 08-22-2022 History of Present illness Narrative ESTABLISHED [...] for this patient. documented in this encounter [facility] 08-22-2022 Instructions Сергей Espinoza MD - 08/22/2022 4:33 PM EDT Start with gabapentin (for nerve pain), prednisone (for sinus congestion and neck pain), and doxycycline (for sinus congestion). If you don't start feeling better or your blood pressure remains high start clondinine. [facility] TEST INFORMATION [facility]RS: Lab is open: 7:30am to 5:00pm - , 7:30am to 4:00pm on Thu and 8am -12pm on Thu. The lab is located in [facility] on the first floor. There is a registration window at the lab, available 7 am to 3 pm Thursday - Thursday. If registration is unavailable at the lab, you may register at the patient registration office near the front lobby of the hospital. SCHEDULING A LAB APPOINTMENT: Laboratory appointments are recommended.Walk ins are still accepted. Call [phone] or schedule via [employer] scheduling ticket. ROUTINE LAB ORDERS 60 days [...] REFILL REQUESTS Request prescription refills through your [employer] account or contact your Pharmacy. My Chart Schedule My Appointment enables you to view your established primary care provider's open schedule and book an appointment online in real-time. This feature is available in internal medicine, family medicine, or pediatrics at any of our [facility] locations and main campus. documented in this encounter [facility] 08-21-2022 Miscellaneous Notes See Triage note Please triage Anai Cohen LPN documented in this encounter [facility] 08-21-2022 Miscellaneous Notes Patient had a headache [...] Protocols used: Information Only Call - No Xxfoai-OLLEG-WK documented in this encounter [facility] 08-21-2022 Miscellaneous Notes Neil thomas [facility] called with the name of the new DME for the patient's CPAP supplies. It is [email or web address]. Ph. #[phone] documented in this encounter [facility] 08-16-2022 Miscellaneous Notes Unable to reach patient, [...] control pill, broken condom) N/A Protocols used: Cuhyaz-[id number]-KB Unable to reach, asked her to CB From [employer] message Dr Espinoza can you help me [...] Initial Assessment Questions Returning patient's call from [employer]. Protocols used: No Contact or Duplicate Contact Wrxn-EPTRW-UI documented in this encounter [facility] 08-15-2022 Miscellaneous Notes See Triage message Please triage. It does not appear as though this has been addressed recently? More than likely patient would benefit from a visit to discuss. documented in this encounter [facility] 08-14-2022 Miscellaneous Notes Pharmacy verified in [place] Patient has been identified by name and [...] Maritza Jorgensen LPN documented in this encounter [facility] 07-11-2022 Miscellaneous Notes Last appointment: 05/21/22 Next appointment: 07/14/22 Pharmacy verified in [place]. Refill(s) requested: Requested Prescriptions Pending Prescriptions Disp Refills nortriptyline (PAMELOR) 75 mg capsule [Pharmacy Med Name: NORTRIPTYLINE HCL 75 MG Capsule] 90 capsule 3 Sig: TAKE 1 CAPSULE AT BEDTIME Order(s) pended. Please advise. Destiny Asencio LPN documented in this encounter [facility] 07-09-2022 Note HNO ID: [id number] Author: GLENN Arguelles) Service: Radiology Author Type: Model Maker Plaster Type: Progress Notes Filed: 07/09/2022 4:24 PM [...] RT Kindra(Ebony) July 09, 2022 4:24 PM [facility] 07-09-2022 History of Present illness Narrative Radiology [...] 2022 4:24 PM documented in this encounter [facility] 06-25-2022 Miscellaneous Notes PDMP website checked and validated. All prescriptions have been APPROPRIATELY filled. No suspicious activity was identified. 06/25/2022 by Brinda Dominguez APRN.TREVA Pharmacy verified in [facility] Patient has been identified by name and [...] Rajat Ramirez Ma documented in this encounter [facility] 06-25-2022 Miscellaneous Notes Left VM and MyChart message for patient to bring in the updated insurance information with her to her 06/30 appt. documented in this encounter [facility] 06-18-2022 Miscellaneous Notes Spoke to patient who was advised of provider's message and verbalized understanding. Advised to call back with new, worsening, or persistent symptoms. Meds reviewed. New script sent for imitrex. Please have patient follow up for persistent or worsening symptoms. Thanks, Brinda Dominguez APRN.SAND MILL OPERATOR Triaged patient. Migraine started two days ago. [...] new script can be sent to pharmacy. [phone] Sabine Goyal RN Reason for Disposition [1] [...] your last menstrual period?" NO Protocols used: Frywzqpk-IEMYR-TF documented in this encounter [facility] 06-12-2022 Miscellaneous Notes Last appointment: 06/24/22 Next appointment: 05/21/22 Pharmacy verified in [facility]. Refill(s) requested: Requested Prescriptions Pending Prescriptions Disp Refills verapamil SR (CALAN SR) 240 mg CR tablet 90 tablet 2 Sig: Take 1 tablet by mouth daily at bedtime. Order(s) pended. Please advise. Lorene Mendieta MA, SHOT POLISHER documented in this encounter [facility] 06-11-2022 Miscellaneous Notes Like we talked about in the office, she can increase the meloxicam to 15 mg (2 tablets) daily, assuming the medication is not giving her any stomach upset. Her other options would be to see one of our suergons to discuss hip replacemnt or to see pain management to discuss pain control. documented in this encounter [facility] 05-27-2022 Miscellaneous Notes PDMP website checked and validated. All prescriptions have been APPROPRIATELY filled. No suspicious activity was identified. 05/27/2022 by Brinda Dominguez APRN.SAND MILL OPERATOR Pharmacy verified in [facility] Patient has been identified by name and [...] Jaclyn Rose MA documented in this encounter [facility] 05-22-2022 Note HNO ID: [id number] Author: ELFEGO Self Service: Radiology Author Type: [...] ELFEGO Self May 22, 2022 3:03 PM [facility] 05-22-2022 History of Present illness Narrative PRIMARY [...] stated she was driving and placed this feature writer on speaker phone. Pt will call this feature writer 05/23 in the morning to further discuss. PCSW will remain available. INTERVENTION: Defers assessment at this time Time Spent:: 5 minutes SIGNATURE: JAIRON Cerrato PATIENT NAME: Merna Webster DATE: May 22, 2022 TIME: 2:30 PM CONTACT #: [phone] documented in this encounter [facility] 05-22-2022 History of Present illness Narrative Radiology [...] 2022 3:03 PM documented in this encounter [facility] 05-21-2022 History of Present illness Narrative ESTABLISHED [...] Has financial problems. Problems with being in [facility]. Taking xanax as needed for anxiety ASSESSMENT: [...] Acid reflux Seasonal Allergies Other: See Comments Shenulair [[place]* Rash Sulfa (Sulfonamide * rash Medications: [...] due on 03/02/2022 documented in this encounter [facility] 03-22-2023 Instructions Callie Taylor - 05/21/2022 1:06 PM EDT [facility] TEST INFORMATION [facility] HOURS: Lab is open: 7:30am to 5:00pm M - , 7:30am to 4:00pm on Thu and 8am -12pm on Thu. The lab is located in [facility] on the first floor. There is a registration window at the lab, available 7 am to 3 pm Thursday - Thursday. If registration is unavailable at the lab, you may register at the patient registration office near the front lobby of the [facility]. SCHEDULING A LAB APPOINTMENT: Laboratory appointments are recommended.Walk ins are still accepted. Call [phone] or schedule via [employer] scheduling ticket. ROUTINE LAB ORDERS 60 days [...] REFILL REQUESTS Request prescription refills through your [employer] account or contact your Pharmacy. My Chart Schedule My Appointment enables you to view your established primary care provider's open schedule and book an appointment online in real-time. This feature is available in internal medicine, family medicine, or pediatrics at any of our [facility] locations and main campus. documented in this encounter [facility] 05-12-2022 Miscellaneous Notes Noted documented in this encounter [facility] 05-08-2022 Miscellaneous Notes PA completed on [employer] for Levalbuterol Tartrate 45MCG/ACT aerosol Approvedtoday PA Case: [id number], Status: Approved, Coverage Starts on: 03/02/2022 12:00:00 AM, Coverage Ends on: 03/01/2023 12:00:00 AM. Questions? Contact . documented in this encounter [facility] 05-05-2022 History of Present illness Narrative Images from the original note were not included. [facility] ESTABLISHED PATIENT OFFICE VISIT 05/05/2022 Patient Name: Merna Wesbter PRIMARY CARE PHYSICIAN: Сергей Espinoza MD CHIEF [...] by me CXR Reviewed report and images 12/21/2020 RESULT: [...] COVID-19 booster vaccine, age 12+ yr, bivalent ([employer]) 12/13/2021 COVID-19 original vaccine, age 12+ yr, monovalent ([employer] - PURPLE TOP) 2020 05/04/2020 03/06/2021 Influenza Seasonal - High Dose - Age 65+ 03/25/2016 12/26/2016 01/28/2018 12/15/2018 Influenza Seasonal Inj Age 3+ 12/20/2013 Influenza Vaccine, Split-Non Spec 12/17/2002 12/05/2003 01/09/2005 12/31/2005 01/09/2007 12/14/200901/12/2012 Pneumococcal-13 Vac Conjugate 10/10/2014 Pneumovax 07/07/2006 12/20/2013 [...] by: Tomasa Ramirez APRN.CNP [facility] documented in this encounter [facility] 05-03-2022 Miscellaneous Notes Reason for Call: Covid Exposure Outcome: Home Care Recommendation. Interim Care Advice given. Patient has an apt with Maintenance Services Dispatcher on Thursday. Reason for Disposition [1] COVID-19 EXPOSURE within last 14 days AND [2] NO symptoms Answer Assessment - Initial Assessment Questions 1. COVID-19 EXPOSURE: in a assisted facility and some residents in the facility [...] 13. TRAVEL: no Protocols used: Coronavirus (COVID-19) [id number] documented in this encounter [facility] 05-01-2022 Miscellaneous Notes Patient requesting refills as follow: Last prescribed : 02/03/22 Last OV: 02/14/22 Next OV: 05/21/22 Requested Prescriptions Pending Prescriptions Disp Refills esomeprazole (NEXIUM) 40 mg capsule 90 capsule 2 Sig: Take 1 capsule by mouth daily before breakfast. Please review and advise. Charleen Cruz Ma documented in this encounter [facility] 04-29-2022 Miscellaneous Notes Pharmacy verified in [facility] Patient has been identified by name and [...] Tati Mark Ma documented in this encounter [facility] 04-25-2022 Miscellaneous Notes Last appointment: 02/14/22 Next appointment: 05/21/22 Pharmacy verified in [facility]. Refill(s) requested: Requested Prescriptions Pending Prescriptions Disp Refills pravastatin (PRAVACHOL) 40 mg tablet 90 tablet 4 Sig: Take 1 tablet by mouth daily at bedtime. Order(s) pended. Please advise. Destiny Asencio LPN documented in this encounter [facility] 04-23-2022 Miscellaneous Notes Spoke to patient who [...] break out and was diagnosed at the [facility] on Thursday. Please contact her at [phone] documented in this encounter [facility] 04-20-2022 History of Present illness Narrative Patient [...] states she has no history of shingles. [facility] Work Phone: 04-16-2022 Miscellaneous Notes Patient left VM on triage line re: Below. Called and left message letting her know tablets were sent to pharmacy. documented in this encounter [facility] 04-16-2022 Miscellaneous Notes Patient is rescheduled Please see patient's mychart message. documented in this encounter [facility] 04-11-2022 Miscellaneous Notes Please schedule the patient for CT scan chest in 3 months followed by an office visit Thank you documented in this encounter [facility] 04-10-2022 History of Present illness Narrative Radiology [...] 2022 4:37 PM documented in this encounter [facility] 04-08-2022 Miscellaneous Notes Patient is scheduled Images from the original note were not included. First attempt: left voicemail for patient to call back and scheduled echo Tomasa Ramirez APRN.TREVA Chahal [facility] Pulmonary Clerical Pool I have added an order for echocardiogram to assess for pulmonary hypertension related to the patient's pulmonary fibrosis. Please have her schedule this whenever it is most convenient for her. Thanks. Tomasa Ramirez APRN.SAND MILL OPERATOR documented in this encounter [facility] 04-02-2022 Miscellaneous Notes See SIM Digital message from 04/02/22 Closing this encounter. Left message for patient to call office back for message below. Multiple [employer] messages sent regarding elevated BP readings. PCP [...] Protocols used: No Contact or Duplicate Contact [id number] documented in this encounter [facility] 04-01-2022 Miscellaneous Notes Addressed in alternate encounter. Sabine Goyal RN documented in this encounter [facility] 03-31-2022 Miscellaneous Notes PDMP website checked and validated. All prescriptions have been APPROPRIATELY filled. No suspicious activity was identified. 03/31/2022 by Brinda Dominguez APRN.SAND MILL OPERATOR Last appointment: 02/14/22 Next appointment: 05/21/22 Pharmacy verified in [facility]. Refill(s) requested: Requested Prescriptions Pending Prescriptions Disp Refills ALPRAZolam (XANAX) 1 mg tablet 90 tablet 0 Sig: Take 1 tablet by mouth three times daily as needed for sedation or anxiety for up to 30 days. Order(s) pended. Please advise. Lauren Garcia LPN, CMA documented in this encounter [facility] 03-31-2022 Miscellaneous Notes Last appointment: 02/14/22 Next appointment: 05/21/22 Pharmacy verified in [facility]. Refill(s) requested: Requested Prescriptions Pending Prescriptions Disp Refills triamcinolone acetonide (KENALOG) 0.5 % cream 15 g 1 Sig: Apply to affected area three times daily. Order(s) pended. Please advise. Lauren Garcia LPN, CMA documented in this encounter [facility] 03-31-2022 History of Present illness Narrative Images [...] booster vaccine, age 12+ yr, bivalent ([employer]) 12/13/2021 COVID-19 original vaccine, age 12+ yr, monovalent ([employer] - PURPLE TOP) 2020 05/04/2020 03/06/2021 Influenza [...] by: Tomasa Ramirez APRN.CNP Pulmonary Medicine [facility] [place], [facility] documented in this encounter [facility] 03-28-2022 Miscellaneous Notes Please inform the report [...] RESCHEDULE BREATHING TESTS AND FOLLOW UP IN PUL WITH RING SPINNER Patient called to reschedule her appointment, and asked if a nurse can please call her today and assist her with her oxygen issues. documented in this encounter [facility] 03-25-2022 Miscellaneous Notes Noted/agree. Brinda Dominguez APRN.SAND MILL OPERATOR Spoke to patient who c/o migraine headache [...] it has been a while. Protocols used: [id number] documented in this encounter [facility] 03-19-2022 Miscellaneous Notes Patient is scheduled to see Rica Amado PA-C on 03/25/2022 for right hip pain at 1 PM. I see that she had been scheduled for an XR on Thursday03/21/2022 called and left detailed message for patient that we can do her XR in the [facility] 3rd floor same floor as ortho [...] 2022 1:37 PM documented in this encounter [facility] 02-27-2022 Miscellaneous Notes PDMP website checked and validated. All prescriptions have been APPROPRIATELY filled. No suspicious activity was identified. 02/27/2022 by Brinda Dominguez APRN.SAND MILL OPERATOR Pharmacy verified in [facility] Patient has been identified by name and [...] Jaclyn Rose MA documented in this encounter [facility] 02-14-2022 History of Present illness Narrative ESTABLISHED PATIENT Merna Webster is a 81 year old female presenting for Follow Up. HISTORY OF PRESENT ILLNESS Patient moved to a one floor with all hard wood floors. That has been helpful for her and her . Depressed at times. Tomorrow will be 5 years since her daughter passed. No children will be coming in for [place]. Has problems getting motivated. Having lower back [...] (<130/80) Never done documented in this encounter [facility] 02-14-2022 Instructions Callie Taylor - 02/14/2022 2:34 PM EST [facility] TEST INFORMATION [facility] HOURS: Lab is open: 7:30am to 5:00pm - , 7:30am to 4:00pm on Thu and 8am -12pm on Thu. The lab is located in [facility] on the first floor. There is a registration window at the lab, available 7 am to 3 pm Thursday - Thursday. If registration is unavailable at the lab, you may register at the patient registration office near the front lobby of the hospital. SCHEDULING A LAB APPOINTMENT: Laboratory appointments are recommended.Walk ins are still accepted. Call [phone] or schedule via [employer] scheduling ticket. ROUTINE LAB ORDERS 60 days [...] REFILL REQUESTS Request prescription refills through your [employer] account or contact your Pharmacy. My Chart Schedule My Appointment enables you to view your established primary care provider's open schedule and book an appointment online in real-time. This feature is available in internal medicine, family medicine, or pediatrics at any of our [facility] locations and main campus. documented in this encounter [facility] 02-03-2022 Miscellaneous Notes Last appointment: 12/13/21 Next appointment: 02/12/22 Pharmacy verified in [place]. Refill(s) requested: Requested Prescriptions Pending Prescriptions Disp Refills esomeprazole (NEXIUM) 40 mg capsule 90 capsule 2 Sig: Take 1 capsule by mouth daily before breakfast. Order(s) pended. Please advise. Destiny Asencio LPN documented in this encounter [facility] 01-28-2022 History of Present illness Narrative Episode [...] Karen Pardo PTA documented in this encounter [facility] 12-31-2021 Miscellaneous Notes PDMP website checked and validated. All prescriptions have been APPROPRIATELY filled. No suspicious activity was identified. 12/31/2021 by Brinda Dominguez APRN.SAND MILL OPERATOR Last appointment: 12/13/21 Next appointment: 02/12/22 Pharmacy verified in [facility]. Refill(s) requested: Requested Prescriptions Pending Prescriptions Disp Refills ALPRAZolam (XANAX) 1 mg tablet 90 tablet 0 Sig: Take 1 tablet by mouth three times daily as needed for sedation or anxiety for up to 30 days. Order(s) pended. Please advise. Avery Zamora Ma, CMA documented in this encounter [facility] 12-30-2021 History of Present illness Narrative Radiology [...] 2021 3:15 PM documented in this encounter [facility] 12-10-2021 Miscellaneous Notes Prior Authorization for Flovent Inhaler faxed to [facility] [phone] per request. documented in this encounter [facility] 12-09-2021 Miscellaneous Notes Pharmacy verified in [facility] Patient has been identified by name and [...] Tati Mark Ma documented in this encounter [facility] 12-09-2021 Miscellaneous Notes Patient has been contacted [...] with Dr Espinoza documented in this encounter [facility] 12-02-2021 Miscellaneous Notes Noted documented in this encounter [facility] 12-02-2021 Miscellaneous Notes Spoke with pt, issue resolved. She has her medication documented in this encounter [facility] 12-02-2021 Miscellaneous Notes Situation has been resolved, see other encounter documented in this encounter [facility] 11-30-2021 Miscellaneous Notes PDMP website checked and validated. All prescriptions have been APPROPRIATELY filled. No suspicious activity was identified. 11/30/2021 by Сергей Espinoza MD documented in this encounter [facility] 11-28-2021 Miscellaneous Notes PDMP website checked and validated. All prescriptions have been APPROPRIATELY filled. No suspicious activity was identified. 11/28/2021 by Brinda Dominguez APRN.SAND MILL OPERATOR Pharmacy verified in [facility] Patient has been [...] Rajat Ramirez Ma documented in this encounter [facility] 11-15-2021 Miscellaneous Notes Received approval from [facility] for Qvar Redihaler 80 mcg Good until 03/01/22 Additional authorization may be required should the plan benefits or formulary change in the new year Pt advised I called [facility] [phone] Started a PA for QVAR, Case # [id number] Turn aroud time 24 to 72 hours Pharmacist from [facility] calling in regard to patient requesting QVAR inhaler. Pharmacist said that she normally uses the flovant. Asking if the flovant is being cancelled. Please return call [phone] documented in this encounter [facility] 11-11-2021 Miscellaneous Notes Attempted to call patient no answer left message to call back. documented in this encounter [facility] 10-28-2021 History of Present illness Narrative Images [...] Chronic lung disease. No definite acute consolidation. Quality Assurance Director: YURIDIA Transcribe Date/Time: Dec 21 2020 7:08P Dictated [...] not require hsopitalization documented in this encounter [facility] 10-11-2021 Miscellaneous Notes Please review and advise. documented in this encounter [facility] 10-11-2021 Miscellaneous Notes Last appointment: 05/30/21 Next appointment: 12/05/21 Pharmacy verified in [place]. Refill(s) requested: Requested Prescriptions Pending Prescriptions Disp Refills triamcinolone acetonide (KENALOG) 0.5 % cream 15 g 1 Sig: Apply to affected area three times daily. Order(s) pended. Please advise. Destiny Asencio LPN documented in this encounter [facility] 10-04-2021 Miscellaneous Notes PDMP website checked and validated. All prescriptions have been APPROPRIATELY filled. No suspicious activity was identified. 10/04/2021 by Brinda Dominguez APRN.SAND MILL OPERATOR Last appointment: 07-01-21 Next appointment: 12-05-21 Pharmacy verified in [place]. Refill(s) requested: Pending Prescriptions Disp Refills ALPRAZOLAM 1 MG TABLET 60 tablet 0 Sig: Take 1 tablet by mouth twice daily as needed for sedation or anxiety for up to 30 days. JURGEN Class: C-IV TARYN: No Order(s) pended. Please advise. Aundrea Cordoba MA, SHOT POLISHER documented in this encounter [facility] 09-20-2021 Miscellaneous Notes Pharmacy verified in [facility] Patient has been identified by name and [...] oz) Please advise. documented in this encounter [facility] 09-18-2021 Miscellaneous Notes documented in this encounter [facility] 09-05-2021 Miscellaneous Notes PDMP website checked and validated. All prescriptions have been APPROPRIATELY filled. No suspicious activity was identified. 09/05/2021 by Brinda Dominguez APRN.SAND MILL OPERATOR Last appointment: 07-24-21 Next appointment: na Pharmacy verified in [facility]. Refill(s) requested: Pending Prescriptions Disp Refills ALPRAZOLAM 1 MG TABLET 60 tablet 0 Sig: Take 1 tablet by mouth twice daily as needed for sedation or anxiety for up to 30 days. JURGEN Class: C-IV TARYN: No Order(s) pended. Please advise. Aundrea Cordoba MA, SHOT POLISHER documented in this encounter [facility] 08-07-2021 Miscellaneous Notes PDMP website checked and validated. All prescriptions have been APPROPRIATELY filled. No suspicious activity was identified. 08/07/2021 by Brinda Dominguez APRN.SAND MILL OPERATOR Pharmacy verified in [facility] Patient has been identified by name and [...] kg (145 lb) Not applicable Please advise. Maritza Jorgensen LPN documented in this encounter [facility] 07-31-2021 Miscellaneous Notes Disregard. Patient sent an updated mychart and is doing better. Сергей Espinoza MD Please offer patient a 40 min appt this at 220 in the office. Thanks, Сергей Espinoza MD Would allow PCP to address documented in this encounter [facility] 07-24-2021 History of Present illness Narrative ESTABLISHED PATIENT Merna Webster is a 81 year old female presenting for (fatigue). HISTORY OF PRESENT ILLNESS Fatigue started shortly after Covid last year Feels its slowly getting worse Completley worn out After breakfast feels like she needs to go back to bed Cant get anything done Last Nov her and her had covid, then in Dec had to move into assisted living Earlier this month [place] apartment this has been very [...] (FLONASE) 50 mcg/actuation nasal spray Use 1 [place] in each nostril daily at bedtime. pravastatin [...] very likely a component here Kenyon Zuniga APRN.SAND MILL OPERATOR BP CONTROLLED (<130/80) Never done COVID-19 VACCINE(4 - Booster for Pfizer series) due on 07/04/2021 documented in this encounter [facility] 07-23-2021 Miscellaneous Notes See nurse triage encounter Please triage documented in this encounter [facility] 07-23-2021 Miscellaneous Notes See nurse triage encounter documented in this encounter [facility] 07-23-2021 Miscellaneous Notes Fatigue since -April Goes to bed 11-11:30pm, wakes once for [...] : NA Protocols used: WEAKNESS (GENERALIZED) AND [id number] Called patient at [phone], no answer. Left message explaining that PCP message would be sent via MY Chart for review. Advised she respond via MY Chart with questions or call the office at [phone] to discuss with Triage. Sabine Goyal RN [...] know I am going to consult the psychiatric social worker supervisor to see what she can do to [...] you Merna Webster documented in this encounter [facility] 07-22-2021 Miscellaneous Notes Pharmacy faxed requesting the following refill. Rx was filled 2 weeks ago but sent to [facility] in [place]. Please sent to [facility] pharmacy. Pending Prescriptions Disp Refills PIRFENIDONE 267 MG CAPSULE 270 capsule 3 Sig: TAKE 3 CAPSULES BY MOUTH THREE TIMES A DAY WITH MEALS TARYN: No Patient last appointment: 07/04/2021 Patient Phone numbers: [phone] (home) Request is for script(s) to be escript to pharmacy. Sirisha Adams documented in this encounter [facility] 07-08-2021 Miscellaneous Notes [facility] All prescriptions have been APPROPRIATELY filled. No suspicious activity was identified. 07/08/2021 by Brinda Dominguez APRN.SAND MILL OPERATOR Patient has been identified by name and [...] Niranjan Ocampo Ma documented in this encounter [facility] 07-04-2021 Miscellaneous Notes esbriet refill documented in this encounter [facility] 07-02-2021 Miscellaneous Notes Last appointment: 05/30/21 Next appointment: N/A Pharmacy verified in [place]. Refill(s) requested: Pending Prescriptions Disp Refills LEVOTHYROXINE 25 MCG TABLET 90 tablet 3 Sig: Take 1 tablet by mouth once daily. TARYN: No Order(s) pended. Please advise. Lauren Garcia LPN, CMA documented in this encounter [facility] 06-11-2021 Miscellaneous Notes Last appointment: 05/30/21 Next appointment: N/A Pharmacy verified in [facility]. Refill(s) requested: Pending Prescriptions Disp Refills PRAVASTATIN 40 MG TABLET 90 tablet 3 Sig: Take 1 tablet by mouth daily at bedtime. TARYN: No Order(s) pended. Please advise. Lauren Garcia LPN, SHOT POLISHER documented in this encounter [facility] 06-10-2021 Miscellaneous Notes Received forms back from provider, faxed to [facility]. Transmission successful. Paperwork in fax drawer. Received forms from Carol regarding O2 Letter of medical Necessity renewal . Placed on providers desk/folder for review/signature. Please return back to nurse to complete. documented in this encounter [facility] 06-07-2021 History of Present illness Narrative PRIMARY [...] know I am going to consult the psychiatric social worker supervisor to see what she can do to [...] Pt and she stated to her that "[place] had psychiatric social worker supervisor call and I don't want to talk to a psychiatric social worker supervisor". I called back and it went directly to . This feature writer left VM calling because Pt called office asking for assistance with finding new location and PCSW will remain available to assist with resources and provided name and number. Did you receive information on your AVS about the [facility] [place], operated by [facility] [employer]? N/A Did you like receiving this information? N/A Patient reported caregiver was able to meet their needs today? N/A INTERVENTION: [facility] - External Resource Time Spent:: 10 minutes SIGNATURE: JAIRON Cerrato PATIENT NAME: Merna Webster DATE: June 07, 2021 TIME: 3:06 PM CONTACT #: [phone] documented in this encounter [facility] 06-07-2021 Miscellaneous Notes PDMP website checked and validated. All prescriptions have been APPROPRIATELY filled. No suspicious activity was identified. 06/07/2021 by Brinda Dominguez APRN.SAND MILL OPERATOR Last appointment: 05/30/21 Next appointment: n/a Pharmacy verified in [facility]. Refill(s) requested: Pending Prescriptions Disp Refills ALPRAZOLAM 1 MG TABLET 60 tablet 0 Sig: Take 1 tablet by mouth twice daily as needed for sedation or anxiety for up to 30 days. JURGEN Class: C-IV TARYN: No Order(s) pended. Please advise. Destiny Asencio LPN documented in this encounter [facility] 06-06-2021 Miscellaneous Notes See nurse triage encounter Please let patient know I am going to consult the psychiatric social worker supervisor to see what she can do to [...] Sabine Goyal RN documented in this encounter [facility] 06-04-2021 Miscellaneous Notes Addressed in alternate encounter. Sabine Goyal RN Called pt at [phone], no answer. LM requesting CB to speak with nurse triage. Please review and advise documented in this encounter [facility] 05-31-2021 Miscellaneous Notes Left message on for return call documented in this encounter [facility] 05-30-2021 History of Present illness Narrative ESTABLISHED [...] (FLONASE) 50 mcg/actuation nasal spray Use 1 [place] in each nostril daily at bedtime. diclofenac [...] rubs. Extremities: No edema. Сергей Espinoza MD BP CONTROLLED (<130/80) Never done INFLUENZA(1) due on 10/31/2020 ADVANCE DIRECTIVE DISCUSSION Never done documented in this encounter [facility] 05-30-2021 Instructions Callie Taylor - 05/30/2021 2:25 PM EDT [facility] MEDICAL OFFICE BUILDING LAB TEST INFORMATION [facility] BUILDING LAB HOURS: Lab is open: 7:30am to 5:00pm M - , 7:30am to 4:00pm on Thu and 8am -12pm on Thu. The lab is located in [facility] on the first floor. There is a registration window at the lab, available 7 am to 3 pm Thursday. If registration is unavailable at the lab, you may register at the patient registration office near the [facility]. SCHEDULING A LAB APPOINTMENT: Laboratory appointments are recommended.Walk ins are still accepted. Call [phone] or schedule via [facility] scheduling ticket. ROUTINE LAB ORDERS 60 days [...] REFILL REQUESTS Request prescription refills through your [facility] account or contact your Pharmacy. My Chart Schedule My Appointment enables you to view your established primary care provider's open schedule and book an appointment online in real-time. This feature is available in internal medicine, family medicine, or pediatrics at any of our [facility] locations and main campus. documented in this encounter [facility] 05-22-2016 History of Past i llness Narrative Problem Noted Date Resolved Date Dysphagia 05/22/2016 01/21/2017 Ischemic colon 06/02/2012 04/23/2017 Colonic mass 06/02/2012 04/23/2017 Unspecified sleep apnea 01/04/2008 07/23/19 18 Overview: DME: [facility] # [phone]; fax# [phone] Lumbago 09/10/2007 04/23/2017 Sprain of neck 09/10/2007 [...] of this encounter (statuses as of 05/31/2021) [facility] History of Past illness Narrative* Problem Noted Date Resolved Date Dysphagia 05/22/2016 01/21/2017 Ischemic colon 06/02/2012 04/23/2017 Colonic mass 06/02/2012 04/23/2017 Unspecified sleep apnea 01/04/2008 07/23/19 18 Overview: DME: [facility]# [phone]; fax# [phone] Lumbago 09/10/2007 04/23/2017 Sprain of neck 09/10/2007 [...] of this encounter (statuses as of 05/31/2021) [facility] History of Past illness Narrative* Problem Noted Date Resolved Date Dysphagia 05/22/2016 01/21/2017 Ischemic colon 06/02/2012 04/23/2017 Colonic mass 06/02/2012 04/23/2017 Unspecified sleep apnea 01/04/2008 07/23/19 18 Overview: DME: [facility]# [phone]; fax# [phone] Lumbago 09/10/2007 04/23/2017 Sprain of neck 09/10/2007 [...] of this encounter (statuses as of 06/04/2021) [facility] History of Past illness Narrative* Problem Noted Date Resolved Date Dysphagia 05/22/2016 01/21/2017 Ischemic colon 06/02/2012 04/23/2017 Colonic mass 06/02/2012 04/23/2017 Unspecified sleep apnea 01/04/2008 07/23/19 18 Overview: DME: [facility] # [phone]; fax# [phone] Lumbago 09/10/2007 04/23/2017 Sprain of neck 09/10/2007 [...] of this encounter (statuses as of 06/06/2021) [facility] History of Past illness Narrative* Problem Noted Date Resolved Date Dysphagia 05/22/2016 01/21/2017 Ischemic colon 06/02/2012 04/23/2017 Colonic mass 06/02/2012 04/23/2017 Unspecified sleep apnea 01/04/2008 07/23/19 18 Overview: DME: [facility]# [phone]; fax# [phone] Lumbago 09/10/2007 04/23/2017 Sprain of neck 09/10/2007 [...] of this encounter (statuses as of 06/07/2021) [facility] History of Past illness Narrative* Problem Noted Date Resolved Date Dysphagia 05/22/2016 01/21/2017 Ischemic colon 06/02/2012 04/23/2017 Colonic mass 06/02/2012 04/23/2017 Unspecified sleep apnea 01/04/2008 07/23/19 18 Overview: DME: [facility]# [phone]; fax# [phone] Lumbago 09/10/2007 04/23/2017 Sprain of neck 09/10/2007 [...] of this encounter (statuses as of 06/07/2021) [facility] History of Past illness Narrative* Problem Noted Date Resolved Date Dysphagia 05/22/2016 01/21/2017 Ischemic colon 06/02/2012 04/23/2017 Colonic mass 06/02/2012 04/23/2017 Unspecified sleep apnea 01/04/2008 07/23/19 18 Overview: DME: [facility] # [phone]; fax# [phone] Lumbago 09/10/2007 04/23/2017 Sprain of neck 09/10/2007 [...] of this encounter (statuses as of 06/10/2021) [facility] History of Past illness Narrative* Problem Noted Date Resolved Date Dysphagia 05/22/2016 01/21/2017 Ischemic colon 06/02/2012 04/23/2017 Colonic mass 06/02/2012 04/23/2017 Unspecified sleep apnea 01/04/2008 07/23/19 18 Overview: DME: [facility]# [phone]; fax# [phone] Lumbago 09/10/2007 04/23/2017 Sprain of neck 09/10/2007 [...] of this encounter (statuses as of 06/11/2021) [facility] History of Past illness Narrative* Problem Noted Date Resolved Date Dysphagia 05/22/2016 01/21/2017 Ischemic colon 06/02/2012 04/23/2017 Colonic mass 06/02/2012 04/23/2017 Unspecified sleep apnea 01/04/2008 07/23/19 18 Overview: DME: [facility]# [phone]; fax# [phone] Lumbago 09/10/2007 04/23/2017 Sprain of neck 09/10/2007 [...] of this encounter (statuses as of 07/02/2021) [facility] History of Past illness Narrative* Problem Noted Date Resolved Date Dysphagia 05/22/2016 01/21/2017 Ischemic colon 06/02/2012 04/23/2017 Colonic mass 06/02/2012 04/23/2017 Unspecified sleep apnea 01/04/2008 07/23/19 18 Overview: DME: [facility] # [phone]; fax# [phone] Lumbago 09/10/2007 04/23/2017 Sprain of neck 09/10/2007 [...] of this encounter (statuses as of 07/04/2021) [facility] History of Past illness Narrative* Problem Noted Date Resolved Date Dysphagia 05/22/2016 01/21/2017 Ischemic colon 06/02/2012 04/23/2017 Colonic mass 06/02/2012 04/23/2017 Unspecified sleep apnea 01/04/2008 07/23/19 18 Overview: DME: [facility]# [phone]; fax# [phone] Lumbago 09/10/2007 04/23/2017 Sprain of neck 09/10/2007 [...] of this encounter (statuses as of 07/08/2021) [facility] History of Past illness Narrative* Problem Noted Date Resolved Date Dysphagia 05/22/2016 01/21/2017 Ischemic colon 06/02/2012 04/23/2017 Colonic mass 06/02/2012 04/23/2017 Unspecified sleep apnea 01/04/2008 07/23/19 18 Overview: DME: [facility]# [phone]; fax# [phone] Lumbago 09/10/2007 04/23/2017 Sprain of neck 09/10/2007 [...] of this encounter (statuses as of 07/22/2021) [facility] History of Past illness Narrative* Problem Noted Date Resolved Date Dysphagia 05/22/2016 01/21/2017 Ischemic colon 06/02/2012 04/23/2017 Colonic mass 06/02/2012 04/23/2017 Unspecified sleep apnea 01/04/2008 07/23/19 18 Overview: DME: [facility] # [phone]; fax# [phone] Lumbago 09/10/2007 04/23/2017 Sprain of neck 09/10/2007 [...] of this encounter (statuses as of 07/23/2021) [facility] History of Past illness Narrative* Problem Noted Date Resolved Date Dysphagia 05/22/2016 01/21/2017 Ischemic colon 06/02/2012 04/23/2017 Colonic mass 06/02/2012 04/23/2017 Unspecified sleep apnea 01/04/2008 07/23/19 18 Overview: DME: [facility]# [phone]; fax# [phone] Lumbago 09/10/2007 04/23/2017 Sprain of neck 09/10/2007 [...] of this encounter (statuses as of 07/23/2021) [facility] History of Past illness Narrative* Problem Noted Date Resolved Date Dysphagia 05/22/2016 01/21/2017 Ischemic colon 06/02/2012 04/23/2017 Colonic mass 06/02/2012 04/23/2017 Unspecified sleep apnea 01/04/2008 07/23/19 18 Overview: DME: [facility]# [phone]; fax# [phone] Lumbago 09/10/2007 04/23/2017 Sprain of neck 09/10/2007 [...] of this encounter (statuses as of 07/24/2021) [facility] History of Past illness Narrative* Problem Noted Date Resolved Date Dysphagia 05/22/2016 01/21/2017 Ischemic colon 06/02/2012 04/23/2017 Colonic mass 06/02/2012 04/23/2017 Unspecified sleep apnea 01/04/2008 07/23/19 18 Overview: DME: [facility] # [phone]; fax# [phone] Lumbago 09/10/2007 04/23/2017 Sprain of neck 09/10/2007 [...] of this encounter (statuses as of 07/25/2021) [facility] History of Past illness Narrative* Problem Noted Date Resolved Date Dysphagia 05/22/2016 01/21/2017 Ischemic colon 06/02/2012 04/23/2017 Colonic mass 06/02/2012 04/23/2017 Unspecified sleep apnea 01/04/2008 07/23/19 18 Overview: DME: [facility] # [phone]; fax# [phone] Lumbago 09/10/2007 04/23/2017 Sprain of neck 09/10/2007 [...] of this encounter (statuses as of 07/31/2021) [facility] History of Past illness Narrative* Problem Noted Date Resolved Date Dysphagia 05/22/2016 01/21/2017 Ischemic colon 06/02/2012 04/23/2017 Colonic mass 06/02/2012 04/23/2017 Unspecified sleep apnea 01/04/2008 07/23/19 18 Overview: DME: [facility] # [phone]; fax# [phone] Lumbago 09/10/2007 04/23/2017 Sprain of neck 09/10/2007 [...] of this encounter (statuses as of 08/07/2021) [facility] History of Past illness Narrative* Problem Noted Date Resolved Date Dysphagia 05/22/2016 01/21/2017 Ischemic colon 06/02/2012 04/23/2017 Colonic mass 06/02/2012 04/23/2017 Unspecified sleep apnea 01/04/2008 07/23/19 18 Overview: DME: [facility]# [phone]; fax# [phone] Lumbago 09/10/2007 04/23/2017 Sprain of neck 09/10/2007 [...] of this encounter (statuses as of 09/05/2021) [facility] History of Past illness Narrative* Problem Noted Date Resolved Date Dysphagia 05/22/2016 01/21/2017 Ischemic colon 06/02/2012 04/23/2017 Colonic mass 06/02/2012 04/23/2017 Unspecified sleep apnea 01/04/2008 07/23/19 18 Overview: DME: [facility]# [phone]; fax# [phone] Lumbago 09/10/2007 04/23/2017 Sprain of neck 09/10/2007 [...] of this encounter (statuses as of 09/05/2021) [facility] History of Past illness Narrative* Problem Noted Date Resolved Date Dysphagia 05/22/2016 01/21/2017 Ischemic colon 06/02/2012 04/23/2017 Colonic mass 06/02/2012 04/23/2017 Unspecified sleep apnea 01/04/2008 07/23/19 Overview: DME: [facility] # [phone]; fax# [phone] Lumbago 09/10/2007 04/23/2017 Sprain of neck 09/10/2007 [...] of this encounter (statuses as of 09/18/2021) [facility] History of Past illness Narrative* Problem Noted Date Resolved Date Dysphagia 05/22/2016 01/21/2017 Ischemic colon 06/02/2012 04/23/2017 Colonic mass 06/02/2012 04/23/2017 Unspecified sleep apnea 01/04/2008 07/23/19 18 Overview: DME: [facility]# [phone]; fax# [phone] Lumbago 09/10/2007 04/23/2017 Sprain of neck 09/10/2007 [...] of this encounter (statuses as of 09/20/2021) [facility] History of Past illness Narrative* Problem Noted Date Resolved Date Dysphagia 05/22/2016 01/21/2017 Ischemic colon 06/02/2012 04/23/2017 Colonic mass 06/02/2012 04/23/2017 Unspecified sleep apnea 01/04/2008 07/23/19 18 Overview: DME: [facility]# [phone]; fax# [phone] Lumbago 09/10/2007 04/23/2017 Sprain of neck 09/10/2007 [...] of this encounter (statuses as of 09/21/2021) [facility] History of Past illness Narrative* Problem Noted Date Resolved Date Dysphagia 05/22/2016 01/21/2017 Ischemic colon 06/02/2012 04/23/2017 Colonic mass 06/02/2012 04/23/2017 Unspecified sleep apnea 01/04/2008 07/23/19 18 Overview: DME: [facility] # [phone]; fax# [phone] Lumbago 09/10/2007 04/23/2017 Sprain of neck 09/10/2007 [...] of this encounter (statuses as of 09/23/2021) [facility] History of Past illness Narrative* Problem Noted Date Resolved Date Dysphagia 05/22/2016 01/21/2017 Ischemic colon 06/02/2012 04/23/2017 Colonic mass 06/02/2012 04/23/2017 Unspecified sleep apnea 01/04/2008 07/23/19 18 Overview: DME: [facility]# [phone]; fax# [phone] Lumbago 09/10/2007 04/23/2017 Sprain of neck 09/10/2007 [...] of this encounter (statuses as of 10/04/2021) [facility] History of Past illness Narrative* Problem Noted Date Resolved Date Dysphagia 05/22/2016 01/21/2017 Ischemic colon 06/02/2012 04/23/2017 Colonic mass 06/02/2012 04/23/2017 Unspecified sleep apnea 01/04/2008 07/23/19 18 Overview: DME: [facility]# [phone]; fax# [phone] Lumbago 09/10/2007 04/23/2017 Sprain of neck 09/10/2007 [...] of this encounter (statuses as of 10/05/2021) [facility] History of Past illness Narrative* Problem Noted Date Resolved Date Dysphagia 05/22/2016 01/21/2017 Ischemic colon 06/02/2012 04/23/2017 Colonic mass 06/02/2012 04/23/2017 Unspecified sleep apnea 01/04/2008 07/23/19 18 Overview: DME: [facility] # [phone]; fax# [phone] Lumbago 09/10/2007 04/23/2017 Sprain of neck 09/10/2007 [...] of this encounter (statuses as of 10/11/2021) [facility] History of Past illness Narrative* Problem Noted Date Resolved Date Dysphagia 05/22/2016 01/21/2017 Ischemic colon 06/02/2012 04/23/2017 Colonic mass 06/02/2012 04/23/2017 Unspecified sleep apnea 01/04/2008 07/23/19 18 Overview: DME: [facility]# [phone]; fax# [phone] Lumbago 09/10/2007 04/23/2017 Sprain of neck 09/10/2007 [...] of this encounter (statuses as of 10/11/2021) [facility] History of Past illness Narrative* Problem Noted Date Resolved Date Dysphagia 05/22/2016 01/21/2017 Ischemic colon 06/02/2012 04/23/2017 Colonic mass 06/02/2012 04/23/2017 Unspecified sleep apnea 01/04/2008 07/23/19 18 Overview: DME: [facility]# [phone]; fax# [phone] Lumbago 09/10/2007 04/23/2017 Sprain of neck 09/10/2007 [...] of this encounter (statuses as of 10/28/2021) [facility] History of Past illness Narrative* Problem Noted Date Resolved Date Dysphagia 05/22/2016 01/21/2017 Ischemic colon 06/02/2012 04/23/2017 Colonic mass 06/02/2012 04/23/2017 Unspecified sleep apnea 01/04/2008 07/23/19 18 Overview: DME: [facility]# [phone]; fax# [phone] Lumbago 09/10/2007 04/23/2017 Sprain of neck 09/10/2007 [...] of this encounter (statuses as of 11/11/2021) [facility] History of Past illness Narrative* Problem Noted Date Resolved Date Dysphagia 05/22/2016 01/21/2017 Ischemic colon 06/02/2012 04/23/2017 Colonic mass 06/02/2012 04/23/2017 Unspecified sleep apnea 01/04/2008 07/23/19 18 Overview: DME: [facility]# [phone]; fax# [phone] Lumbago 09/10/2007 04/23/2017 Sprain of neck 09/10/2007 [...] of this encounter (statuses as of 11/14/2021) [facility] History of Past illness Narrative* Problem Noted Date Resolved Date Dysphagia 05/22/2016 01/21/2017 Ischemic colon 06/02/2012 04/23/2017 Colonic mass 06/02/2012 04/23/2017 Unspecified sleep apnea 01/04/2008 07/23/19 18 Overview: DME: [facility] # [phone]; fax# [phone] Lumbago 09/10/2007 04/23/2017 Sprain of neck 09/10/2007 [...] of this encounter (statuses as of 11/15/2021) [facility] History of Past illness Narrative* Problem Noted Date Resolved Date Dysphagia 05/22/2016 01/21/2017 Ischemic colon 06/02/2012 04/23/2017 Colonic mass 06/02/2012 04/23/2017 Unspecified sleep apnea 01/04/2008 07/23/19 18 Overview: DME: [facility]# [phone]; fax# [phone] Lumbago 09/10/2007 04/23/2017 Sprain of neck 09/10/2007 [...] of this encounter (statuses as of 11/29/2021) [facility] History of Past illness Narrative* Problem Noted Date Resolved Date Dysphagia 05/22/2016 01/21/2017 Ischemic colon 06/02/2012 04/23/2017 Colonic mass 06/02/2012 04/23/2017 Unspecified sleep apnea 01/04/2008 07/23/19 18 Overview: DME: [facility]# [phone]; fax# [phone] Lumbago 09/10/2007 04/23/2017 Sprain of neck 09/10/2007 [...] of this encounter (statuses as of 11/29/2021) [facility] History of Past illness Narrative* Problem Noted Date Resolved Date Dysphagia 05/22/2016 01/21/2017 Ischemic colon 06/02/2012 04/23/2017 Colonic mass 06/02/2012 04/23/2017 Unspecified sleep apnea 01/04/2008 07/23/19 18 Overview: DME: [facility] # [phone]; fax# [phone] Lumbago 09/10/2007 04/23/2017 Sprain of neck 09/10/2007 [...] of this encounter (statuses as of 11/30/2021) [facility] History of Past illness Narrative* Problem Noted Date Resolved Date Dysphagia 05/22/2016 01/21/2017 Ischemic colon 06/02/2012 04/23/2017 Colonic mass 06/02/2012 04/23/2017 Unspecified sleep apnea 01/04/2008 07/23/19 18 Overview: DME: [facility]# [phone]; fax# [phone] Lumbago 09/10/2007 04/23/2017 Sprain of neck 09/10/2007 [...] of this encounter (statuses as of 12/02/2021) [facility] History of Past illness Narrative* Problem Noted Date Resolved Date Dysphagia 05/22/2016 01/21/2017 Ischemic colon 06/02/2012 04/23/2017 Colonic mass 06/02/2012 04/23/2017 Unspecified sleep apnea 01/04/2008 07/23/19 18 Overview: DME: [facility]# [phone]; fax# [phone] Lumbago 09/10/2007 04/23/2017 Sprain of neck 09/10/2007 [...] of this encounter (statuses as of 12/02/2021) [facility] History of Past illness Narrative* Problem Noted Date Resolved Date Dysphagia 05/22/2016 01/21/2017 Ischemic colon 06/02/2012 04/23/2017 Colonic mass 06/02/2012 04/23/2017 Unspecified sleep apnea 01/04/2008 07/23/19 18 Overview: DME: [facility] # [phone]; fax# [phone] Lumbago 09/10/2007 04/23/2017 Sprain of neck 09/10/2007 [...] of this encounter (statuses as of 12/04/2021) [facility] of Past illness Narrative* Problem Noted Date Resolved Date Dysphagia 05/22/2016 01/21/2017 Ischemic colon 06/02/2012 04/23/2017 Colonic mass 06/02/2012 04/23/2017 Unspecified sleep apnea 01/04/2008 07/23/19 18 Overview: DME: [facility]# [phone]; fax# [phone] Lumbago 09/10/2007 04/23/2017 Sprain of neck 09/10/2007 [...] of this encounter (statuses as of 12/09/2021) [facility] of Past illness Narrative* Problem Noted Date Resolved Date Dysphagia 05/22/2016 01/21/2017 Ischemic colon 06/02/2012 04/23/2017 Colonic mass 06/02/2012 04/23/2017 Unspecified sleep apnea 01/04/2008 07/23/19 18 Overview: DME: [facility]# [phone]; fax# [phone] Lumbago 09/10/2007 04/23/2017 Sprain of neck 09/10/2007 [...] of this encounter (statuses as of 12/09/2021) [facility] of Past illness Narrative* Problem Noted Date Resolved Date Dysphagia 05/22/2016 01/21/2017 Ischemic colon 06/02/2012 04/23/2017 Colonic mass 06/02/2012 04/23/2017 Unspecified sleep apnea 01/04/2008 07/23/19 18 Overview: DME: [facility] # [phone]; fax# [phone] Lumbago 09/10/2007 04/23/2017 Sprain of neck 09/10/2007 [...] of this encounter (statuses as of 12/10/2021) [facility] of Past illness Narrative* Problem Noted Date Resolved Date Dysphagia 05/22/2016 01/21/2017 Ischemic colon 06/02/2012 04/23/2017 Colonic mass 06/02/2012 04/23/2017 Unspecified sleep apnea 01/04/2008 07/23/19 18 Overview: DME: [facility]# [phone]; fax# [phone] Lumbago 09/10/2007 04/23/2017 Sprain of neck 09/10/2007 [...] of this encounter (statuses as of 12/23/2021) [facility] of Past illness Narrative* Problem Noted Date Resolved Date Dysphagia 05/22/2016 01/21/2017 Ischemic colon 06/02/2012 04/23/2017 Colonic mass 06/02/2012 04/23/2017 Unspecified sleep apnea 01/04/2008 07/23/19 18 Overview: DME: [facility]# [phone]; fax# [phone] Lumbago 09/10/2007 04/23/2017 Sprain of neck 09/10/2007 [...] of this encounter (statuses as of 12/31/2021) [facility] of Past illness Narrative* Problem Noted Date Resolved Date Dysphagia 05/22/2016 01/21/2017 Ischemic colon 06/02/2012 04/23/2017 Colonic mass 06/02/2012 04/23/2017 Unspecified sleep apnea 01/04/2008 07/23/19 18 Overview: DME: [facility]# [phone]; fax# [phone] Lumbago 09/10/2007 04/23/2017 Sprain of neck 09/10/2007 [...] of this encounter (statuses as of 01/28/2022) [facility] of Past illness Narrative* Problem Noted Date Resolved Date Dysphagia 05/22/2016 01/21/2017 Ischemic colon 06/02/2012 04/23/2017 Colonic mass 06/02/2012 04/23/2017 Unspecified sleep apnea 01/04/2008 07/23/19 18 Overview: DME: [facility]# [phone]; fax# [phone] Lumbago 09/10/2007 04/23/2017 Sprain of neck 09/10/2007 [...] of this encounter (statuses as of 02/03/2022) [facility] Past illness Narrative* Problem Noted Date Resolved Date Dysphagia 05/22/2016 01/21/2017 Ischemic colon 06/02/2012 04/23/2017 Colonic mass 06/02/2012 04/23/2017 Unspecified sleep apnea 01/04/2008 07/23/19 18 Overview: DME: [facility] # [phone]; fax# [phone] Lumbago 09/10/2007 04/23/2017 Sprain of neck 09/10/2007 [...] of this encounter (statuses as of 02/15/2022) [facility] Past illness Narrative* Problem Noted Date Resolved Date Dysphagia 05/22/2016 01/21/2017 Ischemic colon 06/02/2012 04/23/2017 Colonic mass 06/02/2012 04/23/2017 Unspecified sleep apnea 01/04/2008 07/23/19 18 Overview: DME: [facility]# [phone]; fax# [phone] Lumbago 09/10/2007 04/23/2017 Sprain of neck 09/10/2007 [...] of this encounter (statuses as of 02/19/2022) [facility] illness Narrative* Problem Noted Date Resolved Date Dysphagia 05/22/2016 01/21/2017 Ischemic colon 06/02/2012 04/23/2017 Colonic mass 06/02/2012 04/23/2017 Unspecified sleep apnea 01/04/2008 07/23/19 18 Overview: DME: [facility]# [phone]; fax# [phone] Lumbago 09/10/2007 04/23/2017 Sprain of neck 09/10/2007 [...] of this encounter (statuses as of 03/05/2022) [facility] illness Narrative* Problem Noted Date Resolved Date Dysphagia 05/22/2016 01/21/2017 Ischemic colon 06/02/2012 04/23/2017 Colonic mass 06/02/2012 04/23/2017 Unspecified sleep apnea 01/04/2008 07/23/19 18 Overview: DME: [facility] # [phone]; fax# [phone] Lumbago 09/10/2007 04/23/2017 Sprain of neck 09/10/2007 [...] of this encounter (statuses as of 03/19/2022) [facility] illness Narrative* Problem Noted Date Resolved Date Dysphagia 05/22/2016 01/21/2017 Ischemic colon 06/02/2012 04/23/2017 Colonic mass 06/02/2012 04/23/2017 Unspecified sleep apnea 01/04/2008 07/23/19 18 Overview: DME: [facility]# [phone]; fax# [phone] Lumbago 09/10/2007 04/23/2017 Sprain of neck 09/10/2007 [...] of this encounter (statuses as of 03/25/2022) [facility] Narrative* Problem Noted Date Resolved Date Dysphagia 05/22/2016 01/21/2017 Ischemic colon 06/02/2012 04/23/2017 Colonic mass 06/02/2012 04/23/2017 Unspecified sleep apnea 01/04/2008 07/23/19 18 Overview: DME: [facility]# [phone]; fax# [phone] Lumbago 09/10/2007 04/23/2017 Sprain of neck 09/10/2007 [...] of this encounter (statuses as of 03/28/2022) [facility] Narrative* Problem Noted Date Resolved Date Dysphagia 05/22/2016 01/21/2017 Ischemic colon 06/02/2012 04/23/2017 Colonic mass 06/02/2012 04/23/2017 Unspecified sleep apnea 01/04/2008 07/23/19 18 Overview: DME: [facility] # [phone]; fax# [phone] Lumbago 09/10/2007 04/23/2017 Sprain of neck 09/10/2007 [...] of this encounter (statuses as of 03/31/2022) [facility] illness Narrative* Problem Noted Date Resolved Date Dysphagia 05/22/2016 01/21/2017 Ischemic colon 06/02/2012 04/23/2017 Colonic mass 06/02/2012 04/23/2017 Unspecified sleep apnea 01/04/2008 07/23/19 18 Overview: DME: [facility]# [phone]; fax# [phone] Lumbago 09/10/2007 04/23/2017 Sprain of neck 09/10/2007 [...] of this encounter (statuses as of 04/01/2022) [facility] Past illness Narrative* Problem Noted Date Resolved Date Dysphagia 05/22/2016 01/21/2017 Ischemic colon 06/02/2012 04/23/2017 Colonic mass 06/02/2012 04/23/2017 Unspecified sleep apnea 01/04/2008 07/23/19 18 Overview: DME: [facility]# [phone]; fax# [phone] Lumbago 09/10/2007 04/23/2017 Sprain of neck 09/10/2007 [...] of this encounter (statuses as of 04/01/2022) [facility]2017 History of Past illness Narrative* Problem Noted Date Resolved Date Dysphagia 05/22/2016 01/21/2017 Ischemic colon 06/02/2012 04/23/2017 Colonic mass 06/02/2012 04/23/2017 Unspecified sleep apnea 01/04/2008 07/23/19 18 Overview: DME: [facility] # [phone]; fax# [phone] Lumbago 09/10/2007 04/23/2017 Sprain of neck 09/10/2007 [...] of this encounter (statuses as of 04/01/2022) [facility]2017 History of Past illness Narrative* Problem Noted Date Resolved Date Dysphagia 05/22/2016 01/21/2017 Ischemic colon 06/02/2012 04/23/2017 Colonic mass 06/02/2012 04/23/2017 Unspecified sleep apnea 01/04/2008 07/23/19 18 Overview: DME: [facility]# [phone]; fax# [phone] Lumbago 09/10/2007 04/23/2017 Sprain of neck 09/10/2007 [...] of this encounter (statuses as of 04/02/2022) [facility] History of Past illness Narrative* Problem Noted Date Resolved Date Dysphagia 05/22/2016 01/21/2017 Ischemic colon 06/02/2012 04/23/2017 Colonic mass 06/02/2012 04/23/2017 Unspecified sleep apnea 01/04/2008 07/23/19 18 Overview: DME: [facility]# [phone]; fax# [phone] Lumbago 09/10/2007 04/23/2017 Sprain of neck 09/10/2007 [...] of this encounter (statuses as of 04/08/2022) [facility] History of Past illness Narrative* Problem Noted Date Resolved Date Dysphagia 05/22/2016 01/21/2017 Ischemic colon 06/02/2012 04/23/2017 Colonic mass 06/02/2012 04/23/2017 Unspecified sleep apnea 01/04/2008 07/23/19 18 Overview: DME: [facility]# [phone]; fax# [phone] Lumbago 09/10/2007 04/23/2017 Sprain of neck 09/10/2007 [...] of this encounter (statuses as of 04/11/2022) [facility] History of Past illness Narrative* Problem Noted Date Resolved Date Dysphagia 05/22/2016 01/21/2017 Ischemic colon 06/02/2012 04/23/2017 Colonic mass 06/02/2012 04/23/2017 Unspecified sleep apnea 01/04/2008 07/23/19 18 Overview: DME: [facility]# [phone]; fax# [phone] Lumbago 09/10/2007 04/23/2017 Sprain of neck 09/10/2007 [...] of this encounter (statuses as of 04/15/2022) [facility] History of Past illness Narrative* Problem Noted Date Resolved Date Dysphagia 05/22/2016 01/21/2017 Ischemic colon 06/02/2012 04/23/2017 Colonic mass 06/02/2012 04/23/2017 Unspecified sleep apnea 01/04/2008 07/23/19 Overview: DME: [facility] # [phone]; fax# [phone] Lumbago 09/10/2007 04/23/2017 Sprain of neck 09/10/2007 [...] of this encounter (statuses as of 04/16/2022) [facility] History of Past illness Narrative* Problem Noted Date Resolved Date Dysphagia 05/22/2016 01/21/2017 Ischemic colon 06/02/2012 04/23/2017 Colonic mass 06/02/2012 04/23/2017 Unspecified sleep apnea 01/04/2008 07/23/19 18 Overview: DME: [facility]# [phone]; fax# [phone] Lumbago 09/10/2007 04/23/2017 Sprain of neck 09/10/2007 [...] of this encounter (statuses as of 04/16/2022) [facility] History of Past illness Narrative* Problem Noted Date Resolved Date Dysphagia 05/22/2016 01/21/2017 Ischemic colon 06/02/2012 04/23/2017 Colonic mass 06/02/2012 04/23/2017 Unspecified sleep apnea 01/04/2008 07/23/19 18 Overview: DME: [facility]# [phone]; fax# [phone] Lumbago 09/10/2007 04/23/2017 Sprain of neck 09/10/2007 [...] of this encounter (statuses as of 04/18/2022) [facility]2017 History of Past illness Narrative* Problem Noted Date Resolved Date Dysphagia 05/22/2016 01/21/2017 Ischemic colon 06/02/2012 04/23/2017 Colonic mass 06/02/2012 04/23/2017 Unspecified sleep apnea 01/04/2008 07/23/19 18 Overview: DME: [facility] # [phone]; fax# [phone] Lumbago 09/10/2007 04/23/2017 Sprain of neck 09/10/2007 [...] of this encounter (statuses as of 04/21/2022) [facility]2017 History of Past illness Narrative* Problem Noted Date Resolved Date Dysphagia 05/22/2016 01/21/2017 Ischemic colon 06/02/2012 04/23/2017 Colonic mass 06/02/2012 04/23/2017 Unspecified sleep apnea 01/04/2008 07/23/19 18 Overview: DME: [facility]# [phone]; fax# [phone] Lumbago 09/10/2007 04/23/2017 Sprain of neck 09/10/2007 [...] of this encounter (statuses as of 04/23/2022) [facility] History of Past illness Narrative* Problem Noted Date Resolved Date Dysphagia 05/22/2016 01/21/2017 Ischemic colon 06/02/2012 04/23/2017 Colonic mass 06/02/2012 04/23/2017 Unspecified sleep apnea 01/04/2008 07/23/19 18 Overview: DME: [facility]# [phone]; fax# [phone] Lumbago 09/10/2007 04/23/2017 Sprain of neck 09/10/2007 [...] of this encounter (statuses as of 04/24/2022) [facility]2017 History of Past illness Narrative* Problem Noted Date Resolved Date Dysphagia 05/22/2016 01/21/2017 Ischemic colon 06/02/2012 04/23/2017 Colonic mass 06/02/2012 04/23/2017 Unspecified sleep apnea 01/04/2008 07/23/19 Overview: DME: [facility] # [phone]; fax# [phone] Lumbago 09/10/2007 04/23/2017 Sprain of neck 09/10/2007 [...] of this encounter (statuses as of 04/25/2022) [facility]2017 History of Past illness Narrative* Problem Noted Date Resolved Date Dysphagia 05/22/2016 01/21/2017 Ischemic colon 06/02/2012 04/23/2017 Colonic mass 06/02/2012 04/23/2017 Unspecified sleep apnea 01/04/2008 07/23/19 18 Overview: DME: [facility]# [phone]; fax# [phone] Lumbago 09/10/2007 04/23/2017 Sprain of neck 09/10/2007 [...] of this encounter (statuses as of 04/29/2022) [facility]2017 History of Past illness Narrative* Problem Noted Date Resolved Date Dysphagia 05/22/2016 01/21/2017 Ischemic colon 06/02/2012 04/23/2017 Colonic mass 06/02/2012 04/23/2017 Unspecified sleep apnea 01/04/2008 07/23/19 18 Overview: DME: [facility]# [phone]; fax# [phone] Lumbago 09/10/2007 04/23/2017 Sprain of neck 09/10/2007 [...] of this encounter (statuses as of 05/01/2022) [facility]2017 History of Past illness Narrative* Problem Noted Date Resolved Date Dysphagia 05/22/2016 01/21/2017 Ischemic colon 06/02/2012 04/23/2017 Colonic mass 06/02/2012 04/23/2017 Unspecified sleep apnea 01/04/2008 07/23/19 18 Overview: DME: [facility] # [phone]; fax# [phone] Lumbago 09/10/2007 04/23/2017 Sprain of neck 09/10/2007 [...] of this encounter (statuses as of 05/04/2022) [facility]2017 History of Past illness Narrative* Problem Noted Date Resolved Date Dysphagia 05/22/2016 01/21/2017 Ischemic colon 06/02/2012 04/23/2017 Colonic mass 06/02/2012 04/23/2017 Unspecified sleep apnea 01/04/2008 07/23/19 18 Overview: DME: [facility]# [phone]; fax# [phone] Lumbago 09/10/2007 04/23/2017 Sprain of neck 09/10/2007 [...] of this encounter (statuses as of 05/06/2022) [facility]2017 History of Past illness Narrative* Problem Noted Date Resolved Date Dysphagia 05/22/2016 01/21/2017 Ischemic colon 06/02/2012 04/23/2017 Colonic mass 06/02/2012 04/23/2017 Unspecified sleep apnea 01/04/2008 07/23/19 18 Overview: DME: [facility]# [phone]; fax# [phone] Lumbago 09/10/2007 04/23/2017 Sprain of neck 09/10/2007 [...] of this encounter (statuses as of 05/09/2022) [facility]2017 History of Past illness Narrative* Problem Noted Date Resolved Date Dysphagia 05/22/2016 01/21/2017 Ischemic colon 06/02/2012 04/23/2017 Colonic mass 06/02/2012 04/23/2017 Unspecified sleep apnea 01/04/2008 07/23/19 18 Overview: DME: [facility]# [phone]; fax# [phone] Lumbago 09/10/2007 04/23/2017 Sprain of neck 09/10/2007 [...] of this encounter (statuses as of 05/09/2022) [facility]2017 History of Past illness Narrative* Problem Noted Date Resolved Date Dysphagia 05/22/2016 01/21/2017 Ischemic colon 06/02/2012 04/23/2017 Colonic mass 06/02/2012 04/23/2017 Unspecified sleep apnea 01/04/2008 07/23/19 18 Overview: DME: [facility]# [phone]; fax# [phone] Lumbago 09/10/2007 04/23/2017 Sprain of neck 09/10/2007 [...] of this encounter (statuses as of 05/12/2022) [facility]2017 History of Past illness Narrative* Problem Noted Date Resolved Date Dysphagia 05/22/2016 01/21/2017 Ischemic colon 06/02/2012 04/23/2017 Colonic mass 06/02/2012 04/23/2017 Unspecified sleep apnea 01/04/2008 07/23/19 18 Overview: DME: [facility] # [phone]; fax# [phone] Lumbago 09/10/2007 04/23/2017 Sprain of neck 09/10/2007 [...] of this encounter (statuses as of 05/22/2022) [facility]2017 History of Past illness Narrative* Problem Noted Date Resolved Date Dysphagia 05/22/2016 01/21/2017 Ischemic colon 06/02/2012 04/23/2017 Colonic mass 06/02/2012 04/23/2017 Unspecified sleep apnea 01/04/2008 07/23/19 18 Overview: DME: [facility]# [phone]; fax# [phone] Lumbago 09/10/2007 04/23/2017 Sprain of neck 09/10/2007 [...] of this encounter (statuses as of 05/22/2022) [facility]2017 History of Past illness Narrative* Problem Noted Date Resolved Date Dysphagia 05/22/2016 01/21/2017 Ischemic colon 06/02/2012 04/23/2017 Colonic mass 06/02/2012 04/23/2017 Unspecified sleep apnea 01/04/2008 07/23/19 18 Overview: DME: [facility]# [phone]; fax# [phone] Lumbago 09/10/2007 04/23/2017 Sprain of neck 09/10/2007 [...] of this encounter (statuses as of 05/27/2022) [facility]2017 History of Past illness Narrative* Problem Noted Date Resolved Date Dysphagia 05/22/2016 01/21/2017 Ischemic colon 06/02/2012 04/23/2017 Colonic mass 06/02/2012 04/23/2017 Unspecified sleep apnea 01/04/2008 07/23/19 18 Overview: DME: [facility] # [phone]; fax# [phone] Lumbago 09/10/2007 04/23/2017 Sprain of neck 09/10/2007 [...] of this encounter (statuses as of 06/04/2022) [facility]2017 History of Past illness Narrative* Problem Noted Date Resolved Date Dysphagia 05/22/2016 01/21/2017 Ischemic colon 06/02/2012 04/23/2017 Colonic mass 06/02/2012 04/23/2017 Unspecified sleep apnea 01/04/2008 07/23/19 18 Overview: DME: [facility]# [phone]; fax# [phone] Lumbago 09/10/2007 04/23/2017 Sprain of neck 09/10/2007 [...] of this encounter (statuses as of 06/12/2022) [facility]2017 History of Past illness Narrative* Problem Noted Date Resolved Date Dysphagia 05/22/2016 01/21/2017 Ischemic colon 06/02/2012 04/23/2017 Colonic mass 06/02/2012 04/23/2017 Unspecified sleep apnea 01/04/2008 07/23/19 18 Overview: DME: [facility]# [phone]; fax# [phone] Lumbago 09/10/2007 04/23/2017 Sprain of neck 09/10/2007 [...] of this encounter (statuses as of 06/13/2022) [facility]2017 History of Past illness Narrative* Problem Noted Date Resolved Date Dysphagia 05/22/2016 01/21/2017 Ischemic colon 06/02/2012 04/23/2017 Colonic mass 06/02/2012 04/23/2017 Unspecified sleep apnea 01/04/2008 07/23/19 Overview: DME: [facility] # [phone]; fax# [phone] Lumbago 09/10/2007 04/23/2017 Sprain of neck 09/10/2007 [...] of this encounter (statuses as of 06/19/2022) [facility]2017 History of Past illness Narrative* Problem Noted Date Resolved Date Dysphagia 05/22/2016 01/21/2017 Ischemic colon 06/02/2012 04/23/2017 Colonic mass 06/02/2012 04/23/2017 Unspecified sleep apnea 01/04/2008 07/23/19 18 Overview: DME: [facility]# [phone]; fax# [phone] Lumbago 09/10/2007 04/23/2017 Sprain of neck 09/10/2007 [...] of this encounter (statuses as of 06/25/2022) [facility]2017 History of Past illness Narrative* Problem Noted Date Resolved Date Dysphagia 05/22/2016 01/21/2017 Ischemic colon 06/02/2012 04/23/2017 Colonic mass 06/02/2012 04/23/2017 Unspecified sleep apnea 01/04/2008 07/23/19 18 Overview: DME: [facility]# [phone]; fax# [phone] Lumbago 09/10/2007 04/23/2017 Sprain of neck 09/10/2007 [...] of this encounter (statuses as of 06/26/2022) [facility]2017 History of Past illness Narrative* Problem Noted Date Resolved Date Dysphagia 05/22/2016 01/21/2017 Ischemic colon 06/02/2012 04/23/2017 Colonic mass 06/02/2012 04/23/2017 Unspecified sleep apnea 01/04/2008 07/23/19 18 Overview: DME: [facility]# [phone]; fax# [phone] Lumbago 09/10/2007 04/23/2017 Sprain of neck 09/10/2007 [...] of this encounter (statuses as of 07/09/2022) [facility]2017 History of Past illness Narrative* Problem Noted Date Resolved Date Dysphagia 05/22/2016 01/21/2017 Ischemic colon 06/02/2012 04/23/2017 Colonic mass 06/02/2012 04/23/2017 Unspecified sleep apnea 01/04/2008 07/23/19 18 Overview: DME: [facility]# [phone]; fax# [phone] Lumbago 09/10/2007 04/23/2017 Sprain of neck 09/10/2007 [...] of this encounter (statuses as of 07/10/2022) [facility]2017 History of Past illness Narrative* Problem Noted Date Resolved Date Dysphagia 05/22/2016 01/21/2017 Ischemic colon 06/02/2012 04/23/2017 Colonic mass 06/02/2012 04/23/2017 Unspecified sleep apnea 01/04/2008 07/23/19 18 Overview: DME: [facility] # [phone]; fax# [phone] Lumbago 09/10/2007 04/23/2017 Sprain of neck 09/10/2007 [...] of this encounter (statuses as of 07/11/2022) [facility]2017 History of Past illness Narrative* Problem Noted Date Resolved Date Dysphagia 05/22/2016 01/21/2017 Ischemic colon 06/02/2012 04/23/2017 Colonic mass 06/02/2012 04/23/2017 Unspecified sleep apnea 01/04/2008 07/23/19 18 Overview: DME: [facility]# [phone]; fax# [phone] Lumbago 09/10/2007 04/23/2017 Sprain of neck 09/10/2007 [...] of this encounter (statuses as of 08/14/2022) [facility]2017 History of Past illness Narrative* Problem Noted Date Resolved Date Dysphagia 05/22/2016 01/21/2017 Ischemic colon 06/02/2012 04/23/2017 Colonic mass 06/02/2012 04/23/2017 Unspecified sleep apnea 01/04/2008 07/23/19 18 Overview: DME: [facility]# [phone]; fax# [phone] Lumbago 09/10/2007 04/23/2017 Sprain of neck 09/10/2007 [...] of this encounter (statuses as of 08/15/2022) [facility] History of Past illness Narrative* Problem Noted Date Resolved Date Dysphagia 05/22/2016 01/21/2017 Ischemic colon 06/02/2012 04/23/2017 Colonic mass 06/02/2012 04/23/2017 Unspecified sleep apnea 01/04/2008 07/23/19 Overview: DME: [facility] # [phone]; fax# [phone] Lumbago 09/10/2007 04/23/2017 Sprain of neck 09/10/2007 [...] of this encounter (statuses as of 08/16/2022) [facility] History of Past illness Narrative* Problem Noted Date Resolved Date Dysphagia 05/22/2016 01/21/2017 Ischemic colon 06/02/2012 04/23/2017 Colonic mass 06/02/2012 04/23/2017 Unspecified sleep apnea 01/04/2008 07/23/19 18 Overview: DME: [facility]# [phone]; fax# [phone] Lumbago 09/10/2007 04/23/2017 Sprain of neck 09/10/2007 [...] of this encounter (statuses as of 08/22/2022) [facility] History of Past illness Narrative* Problem Noted Date Resolved Date Dysphagia 05/22/2016 01/21/2017 Ischemic colon 06/02/2012 04/23/2017 Colonic mass 06/02/2012 04/23/2017 Unspecified sleep apnea 01/04/2008 07/23/19 18 Overview: DME: [facility]# [phone]; fax# [phone] Lumbago 09/10/2007 04/23/2017 Sprain of neck 09/10/2007 [...] of this encounter (statuses as of 08/22/2022) [facility]2017 History of Past illness Narrative* Problem Noted Date Resolved Date Dysphagia 05/22/2016 01/21/2017 Ischemic colon 06/02/2012 04/23/2017 Colonic mass 06/02/2012 04/23/2017 Unspecified sleep apnea 01/04/2008 07/23/19 18 Overview: DME: [facility] # [phone]; fax# [phone] Lumbago 09/10/2007 04/23/2017 Sprain of neck 09/10/2007 [...] of this encounter (statuses as of 08/23/2022) [facility] History of Past illness Narrative* Problem Noted Date Resolved Date Dysphagia 05/22/2016 01/21/2017 Ischemic colon 06/02/2012 04/23/2017 Colonic mass 06/02/2012 04/23/2017 Unspecified sleep apnea 01/04/2008 07/23/19 Overview: DME: [facility]# [phone]; fax# [phone] Lumbago 09/10/2007 04/23/2017 Sprain of neck 09/10/2007 [...] of this encounter (statuses as of 08/26/2022) [facility] History of Past illness Narrative* Problem Noted Date Diagnosed Date Resolved Date Dysphagia 05/22/2016 01/21/2017 Ischemic colon 06/02/2012 04/23/2017 Colonic mass 06/02/2012 04/23/2017 Unspecified sleep apnea 01/04/200807/01 Overview: DME: [facility]# [phone]; fax# [phone] Lumbago 09/10/2007 04/23/2017 Sprain of neck 09/10/2007 [...] of this encounter (statuses as of 09/07/2022) [facility] History of Past illness Narrative* Problem Noted Date Diagnosed Date Resolved Date Dysphagia 05/22/2016 01/21/2017 Ischemic colon 06/02/2012 04/23/2017 Colonic mass 06/02/2012 04/23/2017 Unspecified sleep apnea 01/04/200807/01 Overview: DME: [facility] # [phone]; fax# [phone] Lumbago 09/10/2007 04/23/2017 Sprain of neck 09/10/2007 [...] of this encounter (statuses as of 09/09/2022) [facility] History of Past illness Narrative* Problem Noted Date Diagnosed Date Resolved Date Dysphagia 05/22/2016 01/21/2017 Ischemic colon 06/02/2012 04/23/2017 Colonic mass 06/02/2012 04/23/2017 Unspecified sleep apnea 01/04/200807/01 Overview: DME: [facility]# [phone]; fax# [phone] Lumbago 09/10/2007 04/23/2017 Sprain of neck 09/10/2007 [...] of this encounter (statuses as of 09/26/2022) [facility] History of Past illness Narrative* Problem Noted Date Diagnosed Date Resolved Date Dysphagia 05/22/2016 01/21/2017 Ischemic colon 06/02/2012 04/23/2017 Colonic mass 06/02/2012 04/23/2017 Unspecified sleep apnea 01/04/200807/01 Overview: DME: [facility]# [phone]; fax# [phone] Lumbago 09/10/2007 04/23/2017 Sprain of neck 09/10/2007 [...] of this encounter (statuses as of 09/26/2022) [facility] History of Past illness Narrative* Problem Noted Date Diagnosed Date Resolved Date Dysphagia 05/22/2016 01/21/2017 Ischemic colon 06/02/2012 04/23/2017 Colonic mass 06/02/2012 04/23/2017 Unspecified sleep apnea 01/04/200807/01 Overview: DME: [facility] # [phone]; fax# [phone] Lumbago 09/10/2007 04/23/2017 Sprain of neck 09/10/2007 [...] of this encounter (statuses as of 10/01/2022) [facility] History of Past illness Narrative* Problem Noted Date Diagnosed Date Resolved Date Dysphagia 05/22/2016 01/21/2017 Ischemic colon 06/02/2012 04/23/2017 Colonic mass 06/02/2012 04/23/2017 Unspecified sleep apnea 01/04/200807/01 Overview: DME: [facility]# [phone]; fax# [phone] Lumbago 09/10/2007 04/23/2017 Sprain of neck 09/10/2007 [...] of this encounter (statuses as of 10/08/2022) [facility] History of Past illness Narrative* Problem Noted Date Diagnosed Date Resolved Date Dysphagia 05/22/2016 01/21/2017 Ischemic colon 06/02/2012 04/23/2017 Colonic mass 06/02/2012 04/23/2017 Unspecified sleep apnea 01/04/200807/01 Overview: DME: [facility]# [phone]; fax# [phone] Lumbago 09/10/2007 04/23/2017 Sprain of neck 09/10/2007 [...] of this encounter (statuses as of 10/08/2022) [facility] of Past illness Narrative* Problem Noted Date Diagnosed Date Resolved Date Dysphagia 05/22/2016 01/21/2017 Ischemic colon 06/02/2012 04/23/2017 Colonic mass 06/02/2012 04/23/2017 Unspecified sleep apnea 01/04/200807/01 Overview: DME: [facility]# [phone]; fax# [phone] Lumbago 09/10/2007 04/23/2017 Sprain of neck 09/10/2007 [...] of this encounter (statuses as of 10/15/2022) [facility] of Past illness Narrative* Problem Noted Date Diagnosed Date Resolved Date Dysphagia 05/22/2016 01/21/2017 Ischemic colon 06/02/2012 04/23/2017 Colonic mass 06/02/2012 04/23/2017 Unspecified sleep apnea 01/04/200807/01 Overview: DME: [facility]# [phone]; fax# [phone] Lumbago 09/10/2007 04/23/2017 Sprain of neck 09/10/2007 [...] of this encounter (statuses as of 10/21/2022) [facility] of Past illness Narrative* Problem Noted Date Diagnosed Date Resolved Date Dysphagia 05/22/2016 01/21/2017 Ischemic colon 06/02/2012 04/23/2017 Colonic mass 06/02/2012 04/23/2017 Unspecified sleep apnea 01/04/200807/01 Overview: DME: [facility] # [phone]; fax# [phone] Lumbago 09/10/2007 04/23/2017 Sprain of neck 09/10/2007 [...] of this encounter (statuses as of 10/22/2022) [facility] of Past illness Narrative* Problem Noted Date Diagnosed Date Resolved Date Dysphagia 05/22/2016 01/21/2017 Ischemic colon 06/02/2012 04/23/2017 Colonic mass 06/02/2012 04/23/2017 Unspecified sleep apnea 01/04/200807/01 Overview: DME: [facility]# [phone]; fax# [phone] Lumbago 09/10/2007 04/23/2017 Sprain of neck 09/10/2007 [...] of this encounter (statuses as of 10/23/2022) [facility] of Past illness Narrative* Problem Noted Date Diagnosed Date Resolved Date Dysphagia 05/22/2016 01/21/2017 Ischemic colon 06/02/2012 04/23/2017 Colonic mass 06/02/2012 04/23/2017 Unspecified sleep apnea 01/04/200807/01 Overview: DME: [facility] ph# [phone]; fax# [phone] Lumbago 09/10/2007 04/23/2017 Sprain of neck 09/10/2007 [...] of this encounter (statuses as of 10/23/2022) [facility] of Past illness Narrative* Problem Noted Date Diagnosed Date Resolved Date Dysphagia 05/22/2016 01/21/2017 Ischemic colon 06/02/2012 04/23/2017 Colonic mass 06/02/2012 04/23/2017 Unspecified sleep apnea 01/04/200807/01 Overview: DME: [facility] # [phone]; fax# [phone] Lumbago 09/10/2007 04/23/2017 Sprain of neck 09/10/2007 [...] of this encounter (statuses as of 10/25/2022) [facility] of Past illness Narrative* Problem Noted Date Diagnosed Date Resolved Date Dysphagia 05/22/2016 01/21/2017 Ischemic colon 06/02/2012 04/23/2017 Colonic mass 06/02/2012 04/23/2017 Unspecified sleep apnea 01/04/200807/01 Overview: DME: [facility]# [phone]; fax# [phone] Lumbago 09/10/2007 04/23/2017 Sprain of neck 09/10/2007 [...] of this encounter (statuses as of 10/30/2022) [facility] History of Past illness Narrative* Problem Noted Date Diagnosed Date Resolved Date Dysphagia 05/22/2016 01/21/2017 Ischemic colon 06/02/2012 04/23/2017 Colonic mass 06/02/2012 04/23/2017 Unspecified sleep apnea 01/04/200807/01 Overview: DME: [facility]# [phone]; fax# [phone] Lumbago 09/10/2007 04/23/2017 Sprain of neck 09/10/2007 [...] of this encounter (statuses as of 11/05/2022) [facility] Past illness Narrative* Problem Noted Date Diagnosed Date Resolved Date Dysphagia 05/22/2016 01/21/2017 Ischemic colon 06/02/2012 04/23/2017 Colonic mass 06/02/2012 04/23/2017 Unspecified sleep apnea 01/04/200807/01 Overview: DME: [facility] # [phone]; fax# [phone] Lumbago 09/10/2007 04/23/2017 Sprain of neck 09/10/2007 [...] of this encounter (statuses as of 11/10/2022) [facility] Past illness Narrative* Problem Noted Date Diagnosed Date Resolved Date Dysphagia 05/22/2016 01/21/2017 Ischemic colon 06/02/2012 04/23/2017 Colonic mass 06/02/2012 04/23/2017 Unspecified sleep apnea 01/04/200807/01 Overview: DME: [facility]# [phone]; fax# [phone] Lumbago 09/10/2007 04/23/2017 Sprain of neck 09/10/2007 [...] of this encounter (statuses as of 11/12/2022) [facility] Past illness Narrative* Problem Noted Date Diagnosed Date Resolved Date Dysphagia 05/22/2016 01/21/2017 Ischemic colon 06/02/2012 04/23/2017 Colonic mass 06/02/2012 04/23/2017 Unspecified sleep apnea 01/04/200807/01 Overview: DME: [facility]# [phone]; fax# [phone] Lumbago 09/10/2007 04/23/2017 Sprain of neck 09/10/2007 [...] of this encounter (statuses as of 11/17/2022) [facility]2017 History of Past illness Narrative* Problem Noted Date Diagnosed Date Resolved Date Dysphagia 05/22/2016 01/21/2017 Ischemic colon 06/02/2012 04/23/2017 Colonic mass 06/02/2012 04/23/2017 Unspecified sleep apnea 01/04/200807/01 Overview: DME: [facility] # [phone]; fax# [phone] Lumbago 09/10/2007 04/23/2017 Sprain of neck 09/10/2007 [...] of this encounter (statuses as of 11/18/2022) [facility] History of Past illness Narrative* Problem Noted Date Diagnosed Date Resolved Date Dysphagia 05/22/2016 01/21/2017 Ischemic colon 06/02/2012 04/23/2017 Colonic mass 06/02/2012 04/23/2017 Unspecified sleep apnea 01/04/200807/01 Overview: DME: [facility]# [phone]; fax# [phone] Lumbago 09/10/2007 04/23/2017 Sprain of neck 09/10/2007 [...] of this encounter (statuses as of 11/18/2022) [facility] History of Past illness Narrative* Problem Noted Date Diagnosed Date Resolved Date Dysphagia 05/22/2016 01/21/2017 Ischemic colon 06/02/2012 04/23/2017 Colonic mass 06/02/2012 04/23/2017 Unspecified sleep apnea 01/04/200807/01 Overview: DME: [facility]# [phone]; fax# [phone] Lumbago 09/10/2007 04/23/2017 Sprain of neck 09/10/2007 [...] of this encounter (statuses as of 11/19/2022) [facility] History of Past illness Narrative* Problem Noted Date Diagnosed Date Resolved Date Dysphagia 05/22/2016 01/21/2017 Ischemic colon 06/02/2012 04/23/2017 Colonic mass 06/02/2012 04/23/2017 Unspecified sleep apnea 01/04/200807/01 Overview: DME: [facility] # [phone]; fax# [phone] Lumbago 09/10/2007 04/23/2017 Sprain of neck 09/10/2007 [...] of this encounter (statuses as of 11/20/2022) [facility] History of Past illness Narrative* Problem Noted Date Diagnosed Date Resolved Date Dysphagia 05/22/2016 01/21/2017 Ischemic colon 06/02/2012 04/23/2017 Colonic mass 06/02/2012 04/23/2017 Unspecified sleep apnea 01/04/200807/01 Overview: DME: [facility]# [phone]; fax# [phone] Lumbago 09/10/2007 04/23/2017 Sprain of neck 09/10/2007 [...] of this encounter (statuses as of 11/28/2022) [facility] History of Past illness Narrative* Problem Noted Date Diagnosed Date Resolved Date Dysphagia 05/22/2016 01/21/2017 Ischemic colon 06/02/2012 04/23/2017 Colonic mass 06/02/2012 04/23/2017 Unspecified sleep apnea 01/04/200807/01 Overview: DME: [facility]# [phone]; fax# [phone] Lumbago 09/10/2007 04/23/2017 Sprain of neck 09/10/2007 [...] of this encounter (statuses as of 11/29/2022) [facility] History of Past illness Narrative* Problem Noted Date Diagnosed Date Resolved Date Dysphagia 05/22/2016 01/21/2017 Ischemic colon 06/02/2012 04/23/2017 Colonic mass 06/02/2012 04/23/2017 Unspecified sleep apnea 01/04/200807/01 Overview: DME: [facility] # [phone]; fax# [phone] Lumbago 09/10/2007 04/23/2017 Sprain of neck 09/10/2007 [...] of this encounter (statuses as of 11/29/2022) [facility] History of Past illness Narrative* Problem Noted Date Diagnosed Date Resolved Date Dysphagia 05/22/2016 01/21/2017 Ischemic colon 06/02/2012 04/23/2017 Colonic mass 06/02/2012 04/23/2017 Unspecified sleep apnea 01/04/200807/01 Overview: DME: [facility]# [phone]; fax# [phone] Lumbago 09/10/2007 04/23/2017 Sprain of neck 09/10/2007 [...] of this encounter (statuses as of 12/09/2022) [facility] History of Past illness Narrative* Problem Noted Date Diagnosed Date Resolved Date Dysphagia 05/22/2016 01/21/2017 Ischemic colon 06/02/2012 04/23/2017 Colonic mass 06/02/2012 04/23/2017 Unspecified sleep apnea 01/04/200807/01 Overview: DME: [facility]# [phone]; fax# [phone] Lumbago 09/10/2007 04/23/2017 Sprain of neck 09/10/2007 [...] of this encounter (statuses as of 12/16/2022) [facility]2017 History of Past illness Narrative* Problem Noted Date Diagnosed Date Resolved Date Dysphagia 05/22/2016 01/21/2017 Ischemic colon 06/02/2012 04/23/2017 Colonic mass 06/02/2012 04/23/2017 Unspecified sleep apnea 01/04/200807/01 Overview: DME: [facility]# [phone]; fax# [phone] Lumbago 09/10/2007 04/23/2017 Sprain of neck 09/10/2007 [...] of this encounter (statuses as of 12/17/2022) [facility] History of Past illness Narrative* Problem Noted Date Diagnosed Date Resolved Date Dysphagia 05/22/2016 01/21/2017 Ischemic colon 06/02/2012 04/23/2017 Colonic mass 06/02/2012 04/23/2017 Unspecified sleep apnea 01/04/200807/01 Overview: DME: [facility]# [phone]; fax# [phone] Lumbago 09/10/2007 04/23/2017 Sprain of neck 09/10/2007 [...] of this encounter (statuses as of 12/18/2022) [facility]2017 History of Past illness Narrative* Problem Noted Date Diagnosed Date Resolved Date Dysphagia 05/22/2016 01/21/2017 Ischemic colon 06/02/2012 04/23/2017 Colonic mass 06/02/2012 04/23/2017 Unspecified sleep apnea 01/04/200807/01 Overview: DME: [facility] # [phone]; fax# [phone] Lumbago 09/10/2007 04/23/2017 Sprain of neck 09/10/2007 [...] of this encounter (statuses as of 12/23/2022) [facility]2017 History of Past illness Narrative* Problem Noted Date Diagnosed Date Resolved Date Dysphagia 05/22/2016 01/21/2017 Ischemic colon 06/02/2012 04/23/2017 Colonic mass 06/02/2012 04/23/2017 Unspecified sleep apnea 01/04/200807/01 Overview: DME: [facility]# [phone]; fax# [phone] Lumbago 09/10/2007 04/23/2017 Sprain of neck 09/10/2007 [...] of this encounter (statuses as of 12/31/2022) [facility]2017 History of Past illness Narrative* Problem Noted Date Diagnosed Date Resolved Date Dysphagia 05/22/2016 01/21/2017 Ischemic colon 06/02/2012 04/23/2017 Colonic mass 06/02/2012 04/23/2017 Unspecified sleep apnea 01/04/200807/01 Overview: DME: [facility] ph# [phone]; fax# [phone] Lumbago 09/10/2007 04/23/2017 Sprain of neck 09/10/2007 [...] of this encounter (statuses as of 01/04/2023) [facility]2017 History of Past illness Narrative* Problem Noted Date Diagnosed Date Resolved Date Dysphagia 05/22/2016 01/21/2017 Ischemic colon 06/02/2012 04/23/2017 Colonic mass 06/02/2012 04/23/2017 Unspecified sleep apnea 01/04/200807/01 Overview: DME: [facility] # [phone]; fax# [phone] Lumbago 09/10/2007 04/23/2017 Sprain of neck 09/10/2007 [...] of this encounter (statuses as of 01/04/2023) [facility]2017 History of Past illness Narrative* Problem Noted Date Diagnosed Date Resolved Date Dysphagia 05/22/2016 01/21/2017 Ischemic colon 06/02/2012 04/23/2017 Colonic mass 06/02/2012 04/23/2017 Unspecified sleep apnea 01/04/200807/01 Overview: DME: [facility]# [phone]; fax# [phone] Lumbago 09/10/2007 04/23/2017 Sprain of neck 09/10/2007 [...] of this encounter (statuses as of 01/06/2023) [facility]2017 History of Past illness Narrative* Problem Noted Date Diagnosed Date Resolved Date Dysphagia 05/22/2016 01/21/2017 Ischemic colon 06/02/2012 04/23/2017 Colonic mass 06/02/2012 04/23/2017 Unspecified sleep apnea 01/04/200807/01 Overview: DME: [facility]# [phone]; fax# [phone] Lumbago 09/10/2007 04/23/2017 Sprain of neck 09/10/2007 [...] of this encounter (statuses as of 01/14/2023) [facility]2017 History of Past illness Narrative* Problem Noted Date Diagnosed Date Resolved Date Dysphagia 05/22/2016 01/21/2017 Ischemic colon 06/02/2012 04/23/2017 Colonic mass 06/02/2012 04/23/2017 Unspecified sleep apnea 01/04/200807/01 Overview: DME: [facility] # [phone]; fax# [phone] Lumbago 09/10/2007 04/23/2017 Sprain of neck 09/10/2007 [...] of this encounter (statuses as of 01/28/2023) [facility]2017 History of Past illness Narrative* Problem Noted Date Diagnosed Date Resolved Date Dysphagia 05/22/2016 01/21/2017 Ischemic colon 06/02/2012 04/23/2017 Colonic mass 06/02/2012 04/23/2017 Unspecified sleep apnea 01/04/200807/01 Overview: DME: [facility]# [phone]; fax# [phone] Lumbago 09/10/2007 04/23/2017 Sprain of neck 09/10/2007 [...] of this encounter (statuses as of 01/30/2023) [facility]2017 History of Past illness Narrative* Problem Noted Date Diagnosed Date Resolved Date Dysphagia 05/22/2016 01/21/2017 Ischemic colon 06/02/2012 04/23/2017 Colonic mass 06/02/2012 04/23/2017 Unspecified sleep apnea 01/04/200807/01 Overview: DME: [facility]# [phone]; fax# [phone] Lumbago 09/10/2007 04/23/2017 Sprain of neck 09/10/2007 [...] of this encounter (statuses as of 02/01/2023) [facility]2017 History of Past illness Narrative* Problem Noted Date Diagnosed Date Resolved Date Dysphagia 05/22/2016 01/21/2017 Ischemic colon 06/02/2012 04/23/2017 Colonic mass 06/02/2012 04/23/2017 Unspecified sleep apnea 01/04/200807/01 Overview: DME: [facility] # [phone]; fax# [phone] Lumbago 09/10/2007 04/23/2017 Sprain of neck 09/10/2007 [...] of this encounter (statuses as of 02/05/2023) [facility]2017 History of Past illness Narrative* Problem Noted Date Diagnosed Date Resolved Date Dysphagia 05/22/2016 01/21/2017 Ischemic colon 06/02/2012 04/23/2017 Colonic mass 06/02/2012 04/23/2017 Unspecified sleep apnea 01/04/200807/01 Overview: DME: [facility]# [phone]; fax# [phone] Lumbago 09/10/2007 04/23/2017 Sprain of neck 09/10/2007 [...] of this encounter (statuses as of 02/07/2023) [facility]2017 History of Past illness Narrative* Problem Noted Date Diagnosed Date Resolved Date Dysphagia 05/22/2016 01/21/2017 Ischemic colon 06/02/2012 04/23/2017 Colonic mass 06/02/2012 04/23/2017 Unspecified sleep apnea 01/04/200807/01 Overview: DME: [facility]# [phone]; fax# [phone] Lumbago 09/10/2007 04/23/2017 Sprain of neck 09/10/2007 [...] of this encounter (statuses as of 02/14/2023) [facility]2017 History of Past illness Narrative* Problem Noted Date Diagnosed Date Resolved Date Dysphagia 05/22/2016 01/21/2017 Ischemic colon 06/02/2012 04/23/2017 Colonic mass 06/02/2012 04/23/2017 Unspecified sleep apnea 01/04/200807/01 Overview: DME: [facility] # [phone]; fax# [phone] Lumbago 09/10/2007 04/23/2017 Sprain of neck 09/10/2007 [...] of this encounter (statuses as of 02/20/2023) [facility]2017 History of Past illness Narrative* Problem Noted Date Diagnosed Date Resolved Date Dysphagia 05/22/2016 01/21/2017 Ischemic colon 06/02/2012 04/23/2017 Colonic mass 06/02/2012 04/23/2017 Unspecified sleep apnea 01/04/200807/01 Overview: DME: [facility]# [phone]; fax# [phone] Lumbago 09/10/2007 04/23/2017 Sprain of neck 09/10/2007 [...] of this encounter (statuses as of 02/20/2023) [facility]2017 History of Past illness Narrative* Problem Noted Date Diagnosed Date Resolved Date Dysphagia 05/22/2016 01/21/2017 Ischemic colon 06/02/2012 04/23/2017 Colonic mass 06/02/2012 04/23/2017 Unspecified sleep apnea 01/04/200807/01 Overview: DME: [facility]# [phone]; fax# [phone] Lumbago 09/10/2007 04/23/2017 Sprain of neck 09/10/2007 [...] of this encounter (statuses as of 04/03/2023) [facility]2017 History of Past illness Narrative* Problem Noted Date Diagnosed Date Resolved Date Dysphagia 05/22/2016 01/21/2017 Ischemic colon 06/02/2012 04/23/2017 Colonic mass 06/02/2012 04/23/2017 Unspecified sleep apnea 01/04/200807/01 Overview: DME: [facility] # [phone]; fax# [phone] Lumbago 09/10/2007 04/23/2017 Sprain of neck 09/10/2007 [...] of this encounter (statuses as of 04/14/2023) [facility]2017 History of Past illness Narrative* Problem Noted Date Diagnosed Date Resolved Date Dysphagia 05/22/2016 01/21/2017 Ischemic colon 06/02/2012 04/23/2017 Colonic mass 06/02/2012 04/23/2017 Unspecified sleep apnea 01/04/200807/01 Overview: DME: [facility]# [phone]; fax# [phone] Lumbago 09/10/2007 04/23/2017 Sprain of neck 09/10/2007 [...] of this encounter (statuses as of 04/14/2023) [facility]2017 History of Past illness Narrative* Problem Noted Date Diagnosed Date Resolved Date Dysphagia 05/22/2016 01/21/2017 Ischemic colon 06/02/2012 04/23/2017 Colonic mass 06/02/2012 04/23/2017 Unspecified sleep apnea 01/04/200807/01 Overview: DME: [facility]# [phone]; fax# [phone] Lumbago 09/10/2007 04/23/2017 Sprain of neck 09/10/2007 [...] of this encounter (statuses as of 04/16/2023) [facility]2017 History of Past illness Narrative* Problem Noted Date Diagnosed Date Resolved Date Dysphagia 05/22/2016 01/21/2017 Ischemic colon 06/02/2012 04/23/2017 Colonic mass 06/02/2012 04/23/2017 Unspecified sleep apnea 01/04/200807/01 Overview: DME: [facility]# [phone]; fax# [phone] Lumbago 09/10/2007 04/23/2017 Sprain of neck 09/10/2007 [...] of this encounter (statuses as of 04/23/2023) [facility]2017 History of Past illness Narrative* Problem Noted Date Diagnosed Date Resolved Date Dysphagia 05/22/2016 01/21/2017 Ischemic colon 06/02/2012 04/23/2017 Colonic mass 06/02/2012 04/23/2017 Unspecified sleep apnea 01/04/200807/01 Overview: DME: [facility]# [phone]; fax# [phone] Lumbago 09/10/2007 04/23/2017 Sprain of neck 09/10/2007 [...] of this encounter (statuses as of 04/24/2023) [facility]2017 History of Past illness Narrative* Problem Noted Date Diagnosed Date Resolved Date Dysphagia 05/22/2016 01/21/2017 Ischemic colon 06/02/2012 04/23/2017 Colonic mass 06/02/2012 04/23/2017 Unspecified sleep apnea 01/04/200807/01 Overview: DME: [facility] # [phone]; fax# [phone] Lumbago 09/10/2007 04/23/2017 Sprain of neck 09/10/2007 [...] of this encounter (statuses as of 04/30/2023) [facility]2017 History of Past illness Narrative* Problem Noted Date Diagnosed Date Resolved Date Dysphagia 05/22/2016 01/21/2017 Ischemic colon 06/02/2012 04/23/2017 Colonic mass 06/02/2012 04/23/2017 Unspecified sleep apnea 01/04/200807/01 Overview: DME: [facility]# [phone]; fax# [phone] Lumbago 09/10/2007 04/23/2017 Sprain of neck 09/10/2007 [...] of this encounter (statuses as of 05/01/2023) [facility] History of Past illness Narrative* Problem Noted Date Diagnosed Date Resolved Date Dysphagia 05/22/2016 01/21/2017 Ischemic colon 06/02/2012 04/23/2017 Colonic mass 06/02/2012 04/23/2017 Unspecified sleep apnea 01/04/200807/01 Overview: DME: [facility] ph# [phone]; fax# [phone] Lumbago 09/10/2007 04/23/2017 Sprain of neck 09/10/2007 [...] of this encounter (statuses as of 05/01/2023) [facility]2017 History of Past illness Narrative* Problem Noted Date Diagnosed Date Resolved Date Dysphagia 05/22/2016 01/21/2017 Ischemic colon 06/02/2012 04/23/2017 Colonic mass 06/02/2012 04/23/2017 Unspecified sleep apnea 01/04/200807/01 Overview: DME: [facility] # [phone]; fax# [phone] Lumbago 09/10/2007 04/23/2017 Sprain of neck 09/10/2007 [...] of this encounter (statuses as of 05/04/2023) [facility]2017 History of Past illness Narrative* Problem Noted Date Diagnosed Date Resolved Date Dysphagia 05/22/2016 01/21/2017 Ischemic colon 06/02/2012 04/23/2017 Colonic mass 06/02/2012 04/23/2017 Unspecified sleep apnea 01/04/200807/01 Overview: DME: [facility]# [phone]; fax# [phone] Lumbago 09/10/2007 04/23/2017 Sprain of neck 09/10/2007 [...] of this encounter (statuses as of 05/04/2023) [facility]2017 History of Past illness Narrative* Problem Noted Date Diagnosed Date Resolved Date Dysphagia 05/22/2016 01/21/2017 Ischemic colon 06/02/2012 04/23/2017 Colonic mass 06/02/2012 04/23/2017 Unspecified sleep apnea 01/04/200807/01 Overview: DME: [facility]# [phone]; fax# [phone] Lumbago 09/10/2007 04/23/2017 Sprain of neck 09/10/2007 [...] of this encounter (statuses as of 05/04/2023) [facility]2017 History of Past illness Narrative* Problem Noted Date Diagnosed Date Resolved Date Dysphagia 05/22/2016 01/21/2017 Ischemic colon 06/02/2012 04/23/2017 Colonic mass 06/02/2012 04/23/2017 Unspecified sleep apnea 01/04/200807/01 Overview: DME: [facility] # [phone]; fax# [phone] Lumbago 09/10/2007 04/23/2017 Sprain of neck 09/10/2007 [...] of this encounter (statuses as of 05/11/2023) [facility] of Past illness Narrative* Problem Noted Date Diagnosed Date Resolved Date Dysphagia 05/22/2016 01/21/2017 Ischemic colon 06/02/2012 04/23/2017 Colonic mass 06/02/2012 04/23/2017 Unspecified sleep apnea 01/04/200807/01 Overview: DME: [facility]# [phone]; fax# [phone] Lumbago 09/10/2007 04/23/2017 Sprain of neck 09/10/2007 [...] of this encounter (statuses as of 05/13/2023) [facility] History of Past illness Narrative* Problem Noted Date Diagnosed Date Resolved Date Dysphagia 05/22/2016 01/21/2017 Ischemic colon 06/02/2012 04/23/2017 Colonic mass 06/02/2012 04/23/2017 Unspecified sleep apnea 01/04/200807/01 Overview: DME: [facility]# [phone]; fax# [phone] Lumbago 09/10/2007 04/23/2017 Sprain of neck 09/10/2007 [...] of this encounter (statuses as of 05/14/2023) [facility] History of Past illness Narrative* Problem Noted Date Diagnosed Date Resolved Date Dysphagia 05/22/2016 01/21/2017 Ischemic colon 06/02/2012 04/23/2017 Colonic mass 06/02/2012 04/23/2017 Unspecified sleep apnea 01/04/200807/01 Overview: DME: [facility] # [phone]; fax# [phone] Lumbago 09/10/2007 04/23/2017 Sprain of neck 09/10/2007 [...] of this encounter (statuses as of 05/14/2023) [facility] of Past illness Narrative* Problem Noted Date Diagnosed Date Resolved Date Dysphagia 05/22/2016 01/21/2017 Ischemic colon 06/02/2012 04/23/2017 Colonic mass 06/02/2012 04/23/2017 Unspecified sleep apnea 01/04/200807/01 Overview: DME: [facility]# [phone]; fax# [phone] Lumbago 09/10/2007 04/23/2017 Sprain of neck 09/10/2007 [...] of this encounter (statuses as of 05/15/2023) [facility] of Past illness Narrative* Problem Noted Date Diagnosed Date Resolved Date Dysphagia 05/22/2016 01/21/2017 Ischemic colon 06/02/2012 04/23/2017 Colonic mass 06/02/2012 04/23/2017 Unspecified sleep apnea 01/04/200807/01 Overview: DME: [facility]# [phone]; fax# [phone] Lumbago 09/10/2007 04/23/2017 Sprain of neck 09/10/2007 [...] of this encounter (statuses as of 05/22/2023) [facility] of Past illness Narrative* Problem Noted Date Diagnosed Date Resolved Date Dysphagia 05/22/2016 01/21/2017 Ischemic colon 06/02/2012 04/23/2017 Colonic mass 06/02/2012 04/23/2017 Unspecified sleep apnea 01/04/200807/01 Overview: DME: [facility] # [phone]; fax# [phone] Lumbago 09/10/2007 04/23/2017 Sprain of neck 09/10/2007 [...] of this encounter (statuses as of 05/25/2023) [facility] illness [facility]arrative* Problem Noted Date Diagnosed Date Resolved Date Dysphagia 05/22/2016 01/21/2017 Ischemic colon 06/02/2012 04/23/2017 Colonic mass 06/02/2012 04/23/2017 Unspecified sleep apnea 01/04/200807/01 Overview: DME: [facility]# [phone]; fax# [phone] Lumbago 09/10/2007 04/23/2017 Sprain of neck 09/10/2007 [...] of this encounter (statuses as of 06/12/2023) [facility] Past illness [facility]arrative* Problem Noted Date Diagnosed Date Resolved Date Dysphagia 05/22/2016 01/21/2017 Ischemic colon 06/02/2012 04/23/2017 Colonic mass 06/02/2012 04/23/2017 Unspecified sleep apnea 01/04/200807/01 Overview: DME: [facility]# [phone]; fax# [phone] Lumbago 09/10/2007 04/23/2017 Sprain of neck 09/10/2007 [...] of this encounter (statuses as of 06/12/2023) [facility]arrative* Problem Noted Date Diagnosed Date Resolved Date Dysphagia 05/22/2016 01/21/2017 Ischemic colon 06/02/2012 04/23/2017 Colonic mass 06/02/2012 04/23/2017 Unspecified sleep apnea 01/04/200807/01 Overview: DME: [facility] # [phone]; fax# [phone] Lumbago 09/10/2007 04/23/2017 Sprain of neck 09/10/2007 [...] of this encounter (statuses as of 06/19/2023) [facility] Pure hypercholesterolemia- Primary Idiopathic pulmonary [...] hypothyroidism Unspecified hypothyroidism [facility] [place] [facility] Diagnosis Stress at home- Primary Unspecified family circumstance [facility] [place] [facility]* Diagnosis Anxiety Anxiety state, unspecified [facility] [place] [facility]* Diagnosis Encounter for support and coordination of transition of care- Primary [facility] [place] [facility]* Diagnosis Idiopathic pulmonary fibrosis (HCC) Idiopathic pulmonary fibrosis [facility] [place] [facility]* Diagnosis Anxiety Anxiety state, unspecified [facility] [place] [facility]* Diagnosis Fatigue, unspecified type- Primary Essential hypertension Unspecified essential hypertension Obstructive sleep apnea Obstructive sleep apnea (adult) (pediatric) Anxiety Anxiety state, unspecified [facility] [place] [facility]* Diagnosis Interstitial pulmonary disease (HCC)- Primary [...] History of COVID-19 [facility] [place] [facility]* Diagnosis Anxiety Anxiety state, unspecified [facility] [place] [facility] Diagnosis Anxiety Anxiety state, unspecified [facility] Diagnosis Idiopathic pulmonary fibrosis (HCC) Idiopathic pulmonary fibrosis [facility] [place] [facility] Diagnosis Anxiety Anxiety state, unspecified [facility] [place] [facility]* Diagnosis Radicular low back pain- Primary Thoracic or lumbosacral neuritis or radiculitis, unspecified [facility] [place] [facility]* Diagnosis Trochanteric bursitis of right hip- Primary Enthesopathy of hip region Right hip pain Pain in joint, pelvic region and thigh Essential hypertension Unspecified essential hypertension Anxiety Anxiety state, unspecified [facility] Anxiety Anxiety state, unspecified [facility] Diagnosis Idiopathic pulmonary fibrosis (HCC)- Primary Idiopathic pulmonary fibrosis Chronic respiratory failure with hypoxia (HCC) Chronic respiratory failure Mild persistent asthma without complication Unspecified asthma JENNY on CPAP Obstructive sleep apnea (adult) (pediatric) [facility] Diagnosis Lung nodules- Primary Other nonspecific abnormal finding of lung field [facility] Diagnosis Anxiety Anxiety state, unspecified [facility] Diagnosis Idiopathic pulmonary fibrosis (HCC)- Primary Idiopathic pulmonary fibrosis Chronic respiratory failure with hypoxia (HCC) Chronic respiratory failure Mild persistent asthma without complication Unspecified asthma JENNY on CPAP Obstructive sleep apnea (adult) (pediatric) Lung nodule Solitary pulmonary nodule [facility] Diagnosis Hypothyroidism Unspecified hypothyroidism [facility] Diagnosis Idiopathic pulmonary fibrosis (HCC)- Primary Idiopathic pulmonary fibrosis Financial difficulties Inadequate material resources Recurrent major depressive disorder, in full remission (HCC) Chronic respiratory failure with hypoxia (HCC) Chronic respiratory failure Essential hypertension Unspecified essential hypertension Anxiety Anxiety state, unspecified [facility] Diagnosis Financial difficulty- Primary Inadequate material resources [facility] Diagnosis Primary osteoarthritis of right hip Primary localized osteoarthrosis, pelvic region and thigh [facility]* Diagnosis Other migraine without status migrainosus, not intractable [facility] Diagnosis Lung nodules Other nonspecific abnormal finding of lung field [facility] Diagnosis Other fatigue- Primary Neck pain Cervicalgia Chronic nonintractable headache, unspecified headache type Rib pain on left side Chest pain, unspecified [facility] Diagnosis Essential hypertension- Primary Unspecified [...] Primary Generalized pain [facility] [...] osteoarthrosis, lower leg [facility] JENNY (obstructive sleep apnea)- Primary Obstructive sleep apnea (adult) (pediatric) [facility] Diagnosis Anxiety Anxiety state, unspecified [facility] Diagnosis Mild persistent asthma with acute [...] History of COVID-19 [facility]* Diagnosis SOB (shortness of breath) Shortness of breath [facility] Diagnosis Anxiety Anxiety state, unspecified [facility] Diagnosis Right hip pain Pain in joint, pelvic region and thigh Neck pain Cervicalgia Rib pain on left side Chest pain, unspecified [facility]* Diagnosis Interstitial pulmonary disease (HCC) Postinflammatory pulmonary fibrosis [facility]* Diagnosis Anxiety- Primary Anxiety state, unspecified Encounter for immunization Need for other specified prophylactic vaccination against single bacterial disease Palpitations Psoriasis Other psoriasis Primary hypertension Unspecified essential hypertension Sinus congestion Other diseases of nasal cavity and sinuses [facility]* Diagnosis SOB (shortness of breath) Shortness of breath [facility]* Diagnosis Other migraine without status migrainosus, not intractable [facility]* Diagnosis Anxiety Anxiety state, unspecified [facility] Diagnosis Idiopathic pulmonary fibrosis (HCC) Idiopathic pulmonary fibrosis [facility]* Diagnosis Anxiety Anxiety state, unspecified [facility] Diagnosis DON (dyspnea on exertion)- Primary Other dyspnea and respiratory abnormality Palpitations Essential hypertension Unspecified essential hypertension Pure hypercholesterolemia Obstructive sleep apnea Obstructive sleep apnea (adult) (pediatric) DNR (do not resuscitate) Do not resuscitate status [facility] Diagnosis Anxiety Anxiety state, unspecified [facility] [place] [facility] Diagnosis Anxiety Anxiety state, unspecified [facility] [place] [facility]* Diagnosis Idiopathic pulmonary fibrosis (HCC)- Primary Idiopathic pulmonary fibrosis Chronic respiratory failure with hypoxia (HCC) Chronic respiratory failure [facility] [place] [facility]* Diagnosis Pure hypercholesterolemia [facility] [place] [facility]* Diagnosis Essential hypertension- Primary Unspecified essential hypertension Pure hypercholesterolemia Chronic respiratory failure with hypoxia (HCC) Chronic respiratory failure Obstructive sleep apnea Obstructive sleep apnea (adult) (pediatric) Palpitations [facility] [place] [facility]* Diagnosis Primary insomnia- Primary Persistent disorder [...] single bacterial disease [facility] [place] [facility]* Diagnosis Hyponatremia- Primary Hyposmolality and/or hyponatremia Anemia, unspecified type [facility] [place] [facility]* Diagnosis Dysuria- Primary [facility] [place] [facility]* Diagnosis Idiopathic pulmonary fibrosis (HCC) Idiopathic pulmonary fibrosis [facility] [place] [facility]* Diagnosis Idiopathic pulmonary fibrosis (HCC) Idiopathic pulmonary fibrosis [facility] [place] [facility]* Diagnosis Interstitial pulmonary disease (HCC) Postinflammatory pulmonary fibrosis [facility] [place] [facility]* Diagnosis Interstitial pulmonary disease (HCC) Postinflammatory pulmonary fibrosis [facility] [place] [facility]* Diagnosis Interstitial pulmonary disease (HCC) Postinflammatory pulmonary fibrosis [facility] [place] [facility]* Diagnosis Idiopathic pulmonary fibrosis (HCC)- Primary Idiopathic pulmonary fibrosis Mild persistent asthma without complication Unspecified asthma Chronic respiratory failure with hypoxia (HCC) Chronic respiratory failure Obstructive sleep apnea Obstructive sleep apnea (adult) (pediatric) Gastroesophageal reflux disease, unspecified whether esophagitis present [facility] [place] [facility]* Diagnosis Chronic right shoulder pain Pain in joint, shoulder region documented in this encounter [facility]* Diagnosis Pain Generalized pain [facility] [place] [facility] Diagnosis Pain in right hip Pain in joint, pelvic region and thigh documented in this encounter [facility] note* Diagnosis Chronic pain of right knee Radicular low back pain Thoracic or lumbosacral neuritis or radiculitis, unspecified documented in this encounter [facility] noteNo assessment information availableWHolmes County [facility] Work Phone: Reason for referral (narrative)* Outpatient Procedure (Routine) - Authorized Specialty Diagnoses / Procedures Referred By Contac t Referred To [facility] Diagnoses Interstitial pulmonary disease (HCC) Procedures LUNG DIFFUSION CAPACITY (DLCO) DIFFUSING CAPACITY Sona Grier MD [address] [place] [address] [place] [address] Referral ID Status Reason Start Date Expiration Date Visits Requested Visits Authorized [id number] Authorized Auto-Generat ed Referral 10/28/2021 11/27/2022 1 1 * Outpatient Procedure (Routine) - Pending Review Specialty Diagnoses / Procedures Referred By Contac t Referred To [facility] Diagnoses Interstitial pulmonary disease (HCC) Procedures LUNG VOLUMES Sona Grier MD [address] [place] [address] [place] [address] Referral ID Status Reason Start Date Expiration Date Visits Requested Visits Authorized [id number] Pending Review Auto-Generat ed Referral 10/28/2021 11/27/2022 1 1 * Outpatient Procedure (Routine) - Authorized Specialty Diagnoses / Procedures Referred By Contac t Referred To [facility] Diagnoses Interstitial pulmonary disease (HCC) Procedures SPIROMETRY WITH DILATOR IF OBSTRUCTED BRNCDILAT RSPSE SPMTRY PRE&POST-BRNCDILAT ADMN Sona Grier MD [address] [place] [address] [facility] [place] [address] [place] [address] Referral ID Status Reason Start Date Expiration Date Visits Requested Visits Authorized [id number] Authorized Auto-Generat ed Referral 10/28/2021 11/27/2022 1 1 * MRI/CT (Routine) - Authorized Specialty Diagnoses / Procedures Referred By Contac t Referred To Contact CT IMAGING Diagnoses Interstitial pulmonary disease (HCC) Procedures CT CHEST WO IVCON DIAGNOSTIC COMPUTED TOMOGRAPHY THORAX W/O CNTRST Sona Grier MD [address] [place] [address] Ct Imaging Referral ID Status Reason Start Date Expiration Date Visits Requested Visits Authorized [id number] Authorized Auto-Generat ed Referral 2 11/27/2022 1 1 [facility] for referral (narrative)* Diagnostic Procedure Only (Routine) - Authorized Specialty Diagnoses / Procedures Referred By Contac t Referred To Contact XR IMAGING Diagnoses Right hip pain Procedures XR HIP BILATERAL 5V PEL/AP/LAT EACH HIP RADEX HIPS BILATERAL WITH PELVIS MINIMUM 5 VIEWS Сергей Espinoza MD [address] [place] [address] Xr Imaging Referral ID Status Reason Start Date Expiration Date Visits Requested Visits Authorized [id number] Authorized Auto-Generat ed Referral 2 03/16/2023 1 1 * Consult, Test, Treat (Routine) - Pending Review Specialty Diagnoses / Procedures Referred By Contac t Referred To Contact Orthopedics Diagnoses Trochanteric bursitis of right hip Right hip pain Procedures CONSULT TO ORTHOPAEDICS OFFICE/OUTPATIENT [facility] 60-74 MINUTES Сергей Espinoza MD [address] [place] [address] Referral ID Status Reason Start Date Expiration Date Visits Requested Visits Authorized [id number] Pending Review PCP Requested Referral 2 02/14/2023 1 1 [facility] for referral (narrative)* Outpatient Procedure (Routine) - Authorized Specialty Diagnoses / Procedures Referred By Contac t Referred To [facility] Diagnoses Chronic respiratory failure with hypoxia (HCC) Procedures OXIMETRY WITH AMBULATION NONINVASIVE EAR/PULSE OXIMETRY MULTIPLE DETER Tomasa Ramirez APRN.CNP [address] [id number] [place] [id number] Referral ID Status Reason Start Date Expiration Date Visits Requested Visits Authorized [id number] Authorized Auto-Generat ed Referral 03/31/2022 04/30/2023 1 1 [facility] for referral (narrative)* Outpatient Procedure (Routine) - Pending Review Specialty Diagnoses / Procedures Referred By Contac t Referred To [facility] Diagnoses Idiopathic pulmonary fibrosis (HCC) Chronic respiratory failure with hypoxia (HCC) Mild persistent asthma without complication Procedures LUNG DIFFUSION CAPACITY (DLCO) DIFFUSING CAPACITY Tomasa Ramirez APRN.[employer] [address] [place] [address] [place] [phone] Referral ID Status Reason Start Date Expiration Date Visits Requested Visits Authorized [id number] Pending Review Auto-Generat ed Referral 05/05/2022 06/04/2023 1 1 * Outpatient Procedure (Routine) - Pending Review Specialty Diagnoses / Procedures Referred By Contac t Referred To [facility] Diagnoses Idiopathic pulmonary fibrosis (HCC) Chronic respiratory failure with hypoxia (HCC) Mild persistent asthma without complication Procedures LUNG VOLUMES Tomasa Ramirez APRN.CNP [address] [place] [address] [facility] [place] [address] [place] [address] Referral ID Status Reason Start Date Expiration Date Visits Requested Visits Authorized [id number] Pending Review Auto-Generat ed Referral 05/05/2022 06/04/2023 1 1 * Outpatient Procedure (Routine) - Pending Review Specialty Diagnoses / Procedures Referred By Contac t Referred To [facility] Diagnoses Idiopathic pulmonary fibrosis (HCC) Chronic respiratory failure with hypoxia (HCC) Mild persistent asthma without complication Procedures SPIROMETRY - BASELINE AND POST DILATOR BRNCDILAT RSPSE SPMTRY PRE&POST-BRNCDILAT Tomasa Flores APRN.CNP [address] [place] [address] [place] [address] Referral ID Status Reason Start Date Expiration Date Visits Requested Visits Authorized [id number] Pending Review Auto-Generat ed Referral 05/05/2022 06/04/2023 1 1 [facility] for referral (narrative)* Diagnostic Procedure Only (Routine) - Pending Review Specialty Diagnoses / Procedures Referred By Contac t Referred To Contact XR IMAGING Diagnoses Rib pain on left side Procedures XR RIBS/CHEST 3V AP RIB/OBLS/CXR LEFT RADEX RIBS UNI W/POSTEROANT CH MINIMUM 3 VIEWS Сергей Espinoza MD [address] [place] [address] Xr Imaging Referral ID Status Reason Start Date Expiration Date Visits Requested Visits Authorized [id number] Pending Review Auto-Generat ed Referral 08/22/2022 09/21/2023 1 1 * Diagnostic Procedure Only (Routine) - Pending Review Specialty Diagnoses / Procedures Referred By Contac t Referred To Contact XR IMAGING Diagnoses Neck pain Procedures XR CERV OTHER 4V AP/LAT/OBL RADEX SPINE CERVICAL 4 OR 5 VIEWS Сергей Espinoza MD [address] [place] [address] Xr Imaging Referral ID Status Reason Start Date Expiration Date Visits Requested Visits Authorized [id number] Pending Review Auto-Generat ed Referral 08/22/2022 09/21/2023 1 1 [facility] for referral (narrative)* Diagnostic Procedure Only (Routine) - Pending Review Specialty Diagnoses / Procedures Referred By Contac t Referred To Contact XR IMAGING Diagnoses Pain Procedures XR KNEE GENERAL 4V AP BOTH/PA BOTH/LAT/MERC BILATERAL RADIOLOGIC EXAM KNEE COMPLETE 4/MORE VIEWS Al Woods PA-C [address] [place] [address] Xr Imaging Referral ID Status Reason Start Date Expiration Date Visits Requested Visits Authorized [id number] Pending Review Auto-Generat ed Referral 10/08/2022 11/07/2023 1 1 [facility] for referral (narrative)* Diagnostic Procedure Only (Routine) - Closed Specialty Diagnoses / Procedures Referred By Contac t Referred To Contact XR IMAGING Diagnoses Rib pain on left side Procedures XR RIBS/CHEST 3V AP RIB/OBLS/CXR LEFT RADEX RIBS UNI W/POSTEROANT CH MINIMUM 3 VIEWS Сергей Espinoza MD [address] [place] [address] Xr Imaging [place] [address] Referral ID Status Reason Start Date Expiration Date V isits Requested Visits Authorized [id number] Closed Auto-Generate d Referral 08/22/2022 09/21/2023 1 1 * Diagnostic Procedure Only (Routine) - Closed Specialty Diagnoses / Procedures Referred By Contac t Referred To Contact XR IMAGING Diagnoses Neck pain Procedures XR CERV OTHER 4V AP/LAT/OBL RADEX SPINE CERVICAL 4 OR 5 VIEWS Сергей Espinoza MD [address] [place] [address] [place] [address] Referral ID Status Reason Start Date Expiration Date V isits Requested Visits Authorized [id number] Closed Auto-Generate d Referral 08/22/2022 09/21/2023 1 1 * Diagnostic Procedure Only (Routine) - Closed Specialty Diagnoses / Procedures Referred By Contac t Referred To Contact XR IMAGING Diagnoses Right hip pain Procedures XR HIP BILATERAL 5V PEL/AP/LAT EACH HIP RADEX HIPS BILATERAL WITH PELVIS MINIMUM 5 VIEWS Сергей Espinoza MD [address] [place] [address] [place] [address] Referral ID Status Reason Start Date Expiration Date V isits Requested Visits Authorized [id number] Closed Auto-Generate d Referral 02/14/2022 03/16/2023 1 1 [facility] for referral (narrative)* Outpatient Procedure (Routine) - Closed Specialty Diagnoses / Procedures Referred By Contac t Referred [facility] Diagnoses SOB (shortness of breath) Procedures ECHO ECHO TTHRC R-T 2D W/WOM-MODE COMPL SPEC&COLR D Sona Grier MD [address] [place] [address] [facility] [place] [address] [place], [place] [id number] Referral ID Status Reason Start Date Expiration Date V isits Requested Visits Authorized [id number] Closed Auto-Generate d Referral 11/28/2022 11/28/2023 1 1 [facility] for referral (narrative)* Diagnostic Procedure Only (Routine) - Closed Specialty Diagnoses / Procedures Referred By Contac t Referred To Contact XR IMAGING Diagnoses Chronic right shoulder pain Procedures XR SHOULDER GENERAL 3V OR MORE AP/TRUE AP/OTHER RIGHT RADEX SHOULDER COMPLETE MINIMUM 2 VIEWS Сергей Espinoza MD [address] [place] [address] [place] [address] Referral ID Status Reason Start Date Expiration Date V isits Requested Visits Authorized [id number] Closed Auto-Generate d Referral 09/29/2022 10/29/2023 1 1 [facility] for referral (narrative)* Diagnostic Procedure Only (Routine) - Closed Specialty Diagnoses / Procedures Referred By Contac t Referred To Contact XR IMAGING Diagnoses Pain Procedures XR KNEE GENERAL 4V AP BOTH/PA BOTH/LAT/MERC BILATERAL RADIOLOGIC EXAM KNEE COMPLETE 4/MORE VIEWS Al Woods PA-C [address] [place] [address] [place] [address] Referral ID Status Reason Start Date Expiration Date V isits Requested Visits Authorized [id number] Closed Auto-Generate d Referral 10/08/2022 11/07/2023 1 1 [facility] for referral (narrative)* Diagnostic Procedure Only (Routine) - Closed Specialty Diagnoses / Procedures Referred By Contac t Referred To Contact XR IMAGING Diagnoses Pain in right hip Procedures XR HIP GENERAL 3V PELV/AP/LAT RIGHT RADEX HIP UNILATERAL WITH PELVIS 2-3 VIEWS Hero Rubio PA-C [address] [place] [address] [place] [address] Referral ID Status Reason Start Date Expiration Date V isits Requested Visits Authorized [id number] Closed Auto-Generate d Referral 03/19/2022 04/18/2023 1 1 [facility] for referral (narrative)* Diagnostic Procedure Only (Routine) - Closed Specialty Diagnoses / Procedures Referred By Contac t Referred To Contact XR IMAGING Diagnoses Radicular low back pain Procedures XR SACRUM/COCCYX 3V AP/LAT RADEX SACRUM & COCCYX MINIMUM 2 VIEWS Сергей Espinoza MD [address] [place] [address] [place] [address] Referral ID Status Reason Start Date Expiration Date V isits Requested Visits Authorized [id number] Closed Auto-Generate d Referral 12/13/2021 01/12/2023 1 1 * Diagnostic Procedure Only (Routine) - Closed Specialty Diagnoses / Procedures Referred By Contac t Referred To Contact XR IMAGING Diagnoses Radicular low back pain Procedures XR LUMBAR GENERAL 3V AP/LAT/L5-S1 RADEX SPINE LUMBOSACRAL 2/3 VIEWS Сергей Espinoza MD [address] [place] [address] [place] [address] Referral ID Status Reason Start Date Expiration Date V isits Requested Visits Authorized [id number] Closed Auto-Generate d Referral 12/13/2021 01/12/2023 1 1 * Diagnostic Procedure Only (Routine) - Closed Specialty Diagnoses / Procedures Referred By Contac t Referred To Contact XR IMAGING Diagnoses Chronic pain of right knee Procedures XR KNEE GENERAL 4V AP BOTH/PA BOTH/LAT/MERC RIGHT RADIOLOGIC EXAM KNEE COMPLETE 4/MORE VIEWS Сергей Espinoza MD [address] [place] [address] [place] [address] Referral ID Status Reason Start Date Expiration Date V isits Requested Visits Authorized [id number] Closed Auto-Generate d Referral 12/13/2021 01/12/2023 1 1 [facility])No reason for referral information availableWHolmes [facility] Work Phone: Reason for visit Narrative* Diagnostic Procedure Only (Routine) - Closed Specialty Diagnoses / Procedures Referred By Contac t Referred To Contact XR IMAGING Diagnoses Rib pain on left side Procedures XR RIBS/CHEST 3V AP RIB/OBLS/CXR LEFT RADEX RIBS UNI W/POSTEROANT CH MINIMUM 3 VIEWS Сергей Espinoza MD [address] [place] [address] Xr Imaging [facility] Referral ID Status Reason Start Date Expiration Date V isits Requested Visits Authorized [id number] Closed Auto-Generate d Referral 08/22/2022 09/21/2023 1 1 [facility] for visit Narrative* Outpatient Procedure (Routine) - Closed Specialty Diagnoses / Procedures Referred By Contac t Referred To Contact [facility] Diagnoses SOB (shortness of breath) Procedures ECHO ECHO TTHRC R-T 2D W/WOM-MODE COMPL SPEC&COLR D Sona Grier MD [address] [place] [address] [facility] [place] [address] [place] [address] Referral ID Status Reason Start Date Expiration Date V isits Requested Visits Authorized [id number] Closed Auto-Generate d Referral 11/28/2022 11/28/2023 1 1 [facility] for visit Narrative* Diagnostic Procedure Only (Routine) - Closed Specialty Diagnoses / Procedures Referred By Contac t Referred To Contact XR IMAGING Diagnoses Chronic right shoulder pain Procedures XR SHOULDER GENERAL 3V OR MORE AP/TRUE AP/OTHER RIGHT RADEX SHOULDER COMPLETE MINIMUM 2 VIEWS Сергей Espinoza MD [address] [place] [address] Xr Imaging [facility] Referral ID Status Reason Start Date Expiration Date V isits Requested Visits Authorized [id number] Closed Auto-Generate d Referral 09/29/2022 10/29/2023 1 1 [facility] for visit Narrative* Diagnostic Procedure Only (Routine) - Closed Specialty Diagnoses / Procedures Referred By Contac t Referred To Contact XR IMAGING Diagnoses Pain Procedures XR KNEE GENERAL 4V AP BOTH/PA BOTH/LAT/MERC BILATERAL RADIOLOGIC EXAM KNEE COMPLETE 4/MORE VIEWS Al Woods PA-C [address] [place] [address] Xr Imaging [facility] Referral ID Status Reason Start Date Expiration Date V isits Requested Visits Authorized [id number] Closed Auto-Generate d Referral 10/08/2022 11/07/2023 1 1 [facility] for visit Narrative* Diagnostic Procedure Only (Routine) - Closed Specialty Diagnoses / Procedures Referred By Contac t Referred To Contact XR IMAGING Diagnoses Pain in right hip Procedures XR HIP GENERAL 3V PELV/AP/LAT RIGHT RADEX HIP UNILATERAL WITH PELVIS 2-3 VIEWS Hero Rubio PA-C [address] [place] [address] [place] [address] Referral ID Status Reason Start Date Expiration Date V isits Requested Visits Authorized [id number] Closed Auto-Generate d Referral 03/19/2022 04/18/2023 1 1 [facility] for visit Narrative* Diagnostic Procedure Only (Routine) - Closed Specialty Diagnoses / Procedures Referred By Contac t Referred To Contact XR IMAGING Diagnoses Radicular low back pain Procedures XR SACRUM/COCCYX 3V AP/LAT RADEX SACRUM & COCCYX MINIMUM 2 VIEWS Сергей Espinoza MD [address] [place] [address] [place] [address] Referral ID Status Reason Start Date Expiration Date V isits Requested Visits Authorized [id number] Closed Auto-Generate d Referral 12/13/2021 01/12/2023 1 1 [facility] Summary Purpose Family History No Family History Records FoundNo Family History Records FoundNo Family History Records FoundNo Family History Records FoundNo Family History Records FoundNo Family History Records Found Advance Directives No Advanced Directives Records FoundDocuments on File Type Date Recorded 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 Advance Directive(s) Advance Directive(s) 12/21/2020 6:28 PM Advance Directive(s) 06/07/2018 1:54 PM Advance Directive(s) 09/09/2017 12:13 PM Advance Directive(s) 04/01/2017 9:07 AM Advance Directive(s) 11/14/2016 9:35 AM Advance Directive(s) 06/03/2016 1:04 PM Advance Directive(s) 05/26/2016 4:39 PM Reason for Referral Specialty Diagnoses / Procedures Referred By Contac t Referred To Contact Сергей Espinoza MD [address] [place] [address] Referral ID Status Reason Start Date Expiration Date Visits Re quested Visits Authorized [id number] Closed 1 1 Specialty Diagnoses / Procedures Referred By Contac t Referred To Contact Diagnoses Idiopathic pulmonary fibrosis (HCC) Brinda Bah, PA-C [address] [place] [address] Referral ID Status Reason Start Date Expiration Date V isits Requested Visits Authorized [id number] Authorized 09/26/2021 09/25/2022 1 1 Specialty Diagnoses / Procedures Referred By Contac t Referred To Contact Brinda Dominguez APRN.SAND MILL OPERATOR [address] [place] [address] Referral ID Status Reason Start Date Expiration Date V isits Requested Visits Authorized [id number] Pending Review 1 1 Specialty Diagnoses / Procedures Referred By Contac t Referred To Contact CT IMAGING Diagnoses Lung nodules Procedures CT CHEST WO IVCON DIAGNOSTIC COMPUTED TOMOGRAPHY THORAX W/O CNTRST Sona Grier MD [address] [place] [address] Ct Imaging Referral ID Status Reason Start Date Expiration Date Visits Requested Visits Authorized [id number] Pending Review Auto-Generat ed Referral 07/09/2022 05/11/2023 1 1 Referral ID Status Reason Start Date Expiration Date V isits Requested Visits Authorized [id number] Closed Auto-Generate d Referral 07/09/2022 05/11/2023 1 1 Specialty Diagnoses / Procedures Referred By Contac t Referred To Contact Kenyon Zuniga APRN.SAND MILL OPERATOR [address] [place] [address] Referral ID Status Reason Start Date Expiration Date V isits Requested Visits Authorized [id number] Pending Review 1 1 Specialty Diagnoses / Procedures Referred By Contac t Referred To Contact Cardiology / PULMONARY MEDICINE Diagnoses SOB (shortness of breath) Procedures CONSULT TO CARDIOLOGY OFFICE/OUTPATIENT [facility] 60-74 MINUTES Sona Grier MD [address] [place] [address] [facility] [address] [address] Referral ID Status Reason Start Date Expiration Date Visits Requested Visits Authorized [id number] Authorized PCP Requested Referral 11/28/2022 11/28/2023 1 1 Specialty Diagnoses / Procedures Referred By Contac t Referred To Contact [facility] Diagnoses SOB (shortness of breath) Procedures ECG COMPLETE ECG ROUTINE ECG W/LEAST 12 LDS W/I&R Sona Grier MD [address] [place] [address] [place] [address] Referral ID Status Reason Start Date Expiration Date Visits Requested Visits Authorized [id number] Pending Review Auto-Generat ed Referral 11/28/2022 11/28/2023 1 1 Specialty Diagnoses / Procedures Referred By Contac t Referred To Contact [facility] Diagnoses SOB (shortness of breath) Procedures ECHO ECHO TTHRC R-T 2D W/WOM-MODE COMPL SPEC&COLR D Sona Grier MD [address] [place] [address] [place] [address] Referral ID Status Reason Start Date Expiration Date Visits Requested Visits Authorized [id number] Authorized Auto-Generat ed Referral 11/28/2022 11/28/2023 1 1 Specialty Diagnoses / Procedures Referred By Contac t Referred To Contact CT IMAGING Diagnoses Interstitial pulmonary disease (HCC) Procedures CT CHEST WO IVCON DIAGNOSTIC COMPUTED TOMOGRAPHY THORAX W/O CNTRST Sona Grier MD [address] [place] [address] Ct Imaging [facility] Referral ID Status Reason Start Date Expiration Date V isits Requested Visits Authorized [id number] Closed Auto-Generate d Referral 01/28/2022 11/27/2022 1 1 Referral ID Status Reason Start Date Expiration Date Visits Re quested Visits Authorized [id number] Closed 1 1 Specialty Diagnoses / Procedures Referred By Omar mixon Referred To Contact Tomasa Ramirez, DAKOTAH.SAND MILL OPERATOR [address] [place] [id number] Referral ID Status Reason Start Date Expiration Date V isits Requested Visits Authorized [id number] Authorized 03/02/2023 03/01/2024 1 1 Chief Complaint [...] MONTHLY EXAM April 05, 2024 7 :35pm RESIDENTIAL LAB WORK April 07, 2024 5:00am LABWORK April 19, 2024 5:00am MONTHLY NOTE April 21, 2024 5:01pm LABWORK April 23, 2024 12:00pm MONTHLY NOTE May 11, 2024 12: 09pm RESIDENTIAL LAB WORK May 17, 2024 5 :00am Chief Complaint Admit Date MONTHLY EXAM April 05, 2024 7 :35pm RESIDENTIAL LAB WORK April 07, 2024 5:00am LABWORK April 19, 2024 5:00am MONTHLY NOTE April 21, 2024 5:01pm LABWORK April 23, 2024 12:00pm MONTHLY NOTE May 11, 2024 12: 09pm RESIDENTIAL LAB WORK May 17, 2024 5 :00am MONTHLY EXAM May 31, 2024 5:25 pm RESIDENTIAL LAB WORK July 19, 2024 5:0 0am Chief Complaint Admit Date RESIDENTIAL LAB WORK May 17, 2024 5 :00am MONTHLY EXAM May 31, 2024 5:25 pm MONTHLY EXAM June 30, 2024 10:15a m RESIDENTIAL LAB WORK July 19, 2024 5:0 0am Chief Complaint Admit Date RESIDENTIAL LAB WORK May 17, 2024 5 :00am MONTHLY EXAM May 31, 2024 5:25 pm MONTHLY EXAM June 30, 2024 10:15a m RESIDENTIAL LAB WORK July 19, 2024 5:0 0am NEW CONCERN July 26, 2024 3:15p m Chief Complaint Admit Date MONTHLY EXAM May 31, 2024 5:25 pm MONTHLY EXAM June 30, 2024 10:15a m RESIDENTIAL LAB WORK July 19, 2024 5:0 0am NEW CONCERN July 26, 2024 3:15p m MONTHLY EXAM August 02, 2024 5:30p m Chief Complaint Admit Date MONTHLY EXAM May 31, 2024 5:25 pm MONTHLY EXAM June 30, 2024 10:15a m RESIDENTIAL LAB WORK July 19, 2024 5:0 0am NEW CONCERN July 26, 2024 3:15p m MONTHLY EXAM August 02, 2024 5:30p m NEW CONCERN August 08, 2024 2:45p m Additional Source Comments INFORMATION SOURCE (unrecogn ized section and content) DATE CREATED AUTHOR 12/24/2020 [facility] DATE CREATED AUTHOR AUTHOR'S ORGANIZ ATION 04/20/2022 [facility] [place] DATE CREATED AUTHOR AUTHOR'S ORGANIZ ATION 04/20/2022 [employer] DATE CREATED AUTHOR AUTHOR'S ORGANIZ ATION 05/01/2023 [facility] DATE CREATED AUTHOR AUTHOR'S ORGANIZ ATION 04/19/2024 [facility] DATE CREATED AUTHOR AUTHOR'S ORGANIZ ATION 10/05/2024 [facility] Source Comments (unrecognize d section and content) In the event this informatio n is protected by the Federal Confidentiality of Alcohol and Drug Abuse Patient Records regulations: The Federal rules restrict any use of the information to criminally investigate or prosecute any alcohol or drug abuse patient.[facility] Center[facility] the event this information is protected by the Federal Confidentiality of Alcohol and Drug Abuse Patient Records regulations: The Federal rules restrict any use of the information to criminally investigate or prosecute any alcohol or drug abuse patient.[facility] CenterIn the event this information is protected by the Federal Confidentiality of Alcohol and Drug Abuse Patient Records regulations: The Federal rules restrict any use of the information to criminally investigate or prosecute any alcohol or drug abuse patient.[facility] CenterIn the event this information is protected by the Federal Confidentiality of Alcohol and Drug Abuse Patient Records regulations: The Federal rules restrict any use of the information to criminally investigate or prosecute any alcohol or drug abuse patient.[facility] CenterIn the event this information is protected by the Federal Confidentiality of Alcohol and Drug Abuse Patient Records regulations: The Federal rules restrict any use of the information to criminally investigate or prosecute any alcohol or drug abuse patient.[facility] CenterIn the event this information is protected by the Federal Confidentiality of Alcohol and Drug Abuse Patient Records regulations: The Federal rules restrict any use of the information to criminally investigate or prosecute any alcohol or drug abuse patient.[facility] CenterIn the event this information is protected by the Federal Confidentiality of Alcohol and Drug Abuse Patient Records regulations: The Federal rules restrict any use of the information to criminally investigate or prosecute any alcohol or drug abuse patient.[facility] CenterIn the event this information is protected by the Federal Confidentiality of Alcohol and Drug Abuse Patient Records regulations: The Federal rules restrict any use of the information to criminally investigate or prosecute any alcohol or drug abuse patient.[facility] CenterIn the event this information is protected by the Federal Confidentiality of Alcohol and Drug Abuse Patient Records regulations: The Federal rules restrict any use of the information to criminally investigate or prosecute any alcohol or drug abuse patient.[facility] CenterIn the event this information is protected by the Federal Confidentiality of Alcohol and Drug Abuse Patient Records regulations: The Federal rules restrict any use of the information to criminally investigate or prosecute any alcohol or drug abuse patient.[facility] CenterIn the event this information is protected by the Federal Confidentiality of Alcohol and Drug Abuse Patient Records regulations: The Federal rules restrict any use of the information to criminally investigate or prosecute any alcohol or drug abuse patient.[facility] CenterIn the event this information is protected by the Federal Confidentiality of Alcohol and Drug Abuse Patient Records regulations: The Federal rules restrict any use of the information to criminally investigate or prosecute any alcohol or drug abuse patient.[facility] CenterIn the event this information is protected by the Federal Confidentiality of Alcohol and Drug Abuse Patient Records regulations: The Federal rules restrict any use of the information to criminally investigate or prosecute any alcohol or drug abuse patient.[facility] CenterIn the event this information is protected by the Federal Confidentiality of Alcohol and Drug Abuse Patient Records regulations: The Federal rules restrict any use of the information to criminally investigate or prosecute any alcohol or drug abuse patient.[facility] CenterIn the event this information is protected by the Federal Confidentiality of Alcohol and Drug Abuse Patient Records regulations: The Federal rules restrict any use of the information to criminally investigate or prosecute any alcohol or drug abuse patient.[facility] CenterIn the event this information is protected by the Federal Confidentiality of Alcohol and Drug Abuse Patient Records regulations: The Federal rules restrict any use of the information to criminally investigate or prosecute any alcohol or drug abuse patient.[facility] CenterIn the event this information is protected by the Federal Confidentiality of Alcohol and Drug Abuse Patient Records regulations: The Federal rules restrict any use of the information to criminally investigate or prosecute any alcohol or drug abuse patient.[facility] CenterIn the event this information is protected by the Federal Confidentiality of Alcohol and Drug Abuse Patient Records regulations: The Federal rules restrict any use of the information to criminally investigate or prosecute any alcohol or drug abuse patient.[facility] CenterIn the event this information is protected by the Federal Confidentiality of Alcohol and Drug Abuse Patient Records regulations: The Federal rules restrict any use of the information to criminally investigate or prosecute any alcohol or drug abuse patient.[facility] CenterIn the event this information is protected by the Federal Confidentiality of Alcohol and Drug Abuse Patient Records regulations: The Federal rules restrict any use of the information to criminally investigate or prosecute any alcohol or drug abuse patient.[facility] CenterIn the event this information is protected by the Federal Confidentiality of Alcohol and Drug Abuse Patient Records regulations: The Federal rules restrict any use of the information to criminally investigate or prosecute any alcohol or drug abuse patient.[facility] CenterIn the event this information is protected by the Federal Confidentiality of Alcohol and Drug Abuse Patient Records regulations: The Federal rules restrict any use of the information to criminally investigate or prosecute any alcohol or drug abuse patient.[facility] CenterIn the event this information is protected by the Federal Confidentiality of Alcohol and Drug Abuse Patient Records regulations: The Federal rules restrict any use of the information to criminally investigate or prosecute any alcohol or drug abuse patient.[facility] CenterIn the event this information is protected by the Federal Confidentiality of Alcohol and Drug Abuse Patient Records regulations: The Federal rules restrict any use of the information to criminally investigate or prosecute any alcohol or drug abuse patient.[facility] CenterIn the event this information is protected by the Federal Confidentiality of Alcohol and Drug Abuse Patient Records regulations: The Federal rules restrict any use of the information to criminally investigate or prosecute any alcohol or drug abuse patient.[facility] CenterIn the event this information is protected by the Federal Confidentiality of Alcohol and Drug Abuse Patient Records regulations: The Federal rules restrict any use of the information to criminally investigate or prosecute any alcohol or drug abuse patient.[facility] CenterIn the event this information is protected by the Federal Confidentiality of Alcohol and Drug Abuse Patient Records regulations: The Federal rules restrict any use of the information to criminally investigate or prosecute any alcohol or drug abuse patient.[facility] CenterIn the event this information is protected by the Federal Confidentiality of Alcohol and Drug Abuse Patient Records regulations: The Federal rules restrict any use of the information to criminally investigate or prosecute any alcohol or drug abuse patient.[facility] CenterIn the event this information is protected by the Federal Confidentiality of Alcohol and Drug Abuse Patient Records regulations: The Federal rules restrict any use of the information to criminally investigate or prosecute any alcohol or drug abuse patient.[facility] CenterIn the event this information is protected by the Federal Confidentiality of Alcohol and Drug Abuse Patient Records regulations: The Federal rules restrict any use of the information to criminally investigate or prosecute any alcohol or drug abuse patient.[facility] CenterIn the event this information is protected by the Federal Confidentiality of Alcohol and Drug Abuse Patient Records regulations: The Federal rules restrict any use of the information to criminally investigate or prosecute any alcohol or drug abuse patient.[facility] CenterIn the event this information is protected by the Federal Confidentiality of Alcohol and Drug Abuse Patient Records regulations: The Federal rules restrict any use of the information to criminally investigate or prosecute any alcohol or drug abuse patient.[facility] CenterIn the event this information is protected by the Federal Confidentiality of Alcohol and Drug Abuse Patient Records regulations: The Federal rules restrict any use of the information to criminally investigate or prosecute any alcohol or drug abuse patient.[facility] CenterIn the event this information is protected by the Federal Confidentiality of Alcohol and Drug Abuse Patient Records regulations: The Federal rules restrict any use of the information to criminally investigate or prosecute any alcohol or drug abuse patient.[facility] CenterIn the event this information is protected by the Federal Confidentiality of Alcohol and Drug Abuse Patient Records regulations: The Federal rules restrict any use of the information to criminally investigate or prosecute any alcohol or drug abuse patient.[facility] CenterIn the event this information is protected by the Federal Confidentiality of Alcohol and Drug Abuse Patient Records regulations: The Federal rules restrict any use of the information to criminally investigate or prosecute any alcohol or drug abuse patient.[facility] CenterIn the event this information is protected by the Federal Confidentiality of Alcohol and Drug Abuse Patient Records regulations: The Federal rules restrict any use of the information to criminally investigate or prosecute any alcohol or drug abuse patient.[facility] CenterIn the event this information is protected by the Federal Confidentiality of Alcohol and Drug Abuse Patient Records regulations: The Federal rules restrict any use of the information to criminally investigate or prosecute any alcohol or drug abuse patient.[facility] CenterIn the event this information is protected by the Federal Confidentiality of Alcohol and Drug Abuse Patient Records regulations: The Federal rules restrict any use of the information to criminally investigate or prosecute any alcohol or drug abuse patient.[facility] CenterIn the event this information is protected by the Federal Confidentiality of Alcohol and Drug Abuse Patient Records regulations: The Federal rules restrict any use of the information to criminally investigate or prosecute any alcohol or drug abuse patient.[facility] CenterIn the event this information is protected by the Federal Confidentiality of Alcohol and Drug Abuse Patient Records regulations: The Federal rules restrict any use of the information to criminally investigate or prosecute any alcohol or drug abuse patient.[facility] CenterIn the event this information is protected by the Federal Confidentiality of Alcohol and Drug Abuse Patient Records regulations: The Federal rules restrict any use of the information to criminally investigate or prosecute any alcohol or drug abuse patient.[facility] CenterIn the event this information is protected by the Federal Confidentiality of Alcohol and Drug Abuse Patient Records regulations: The Federal rules restrict any use of the information to criminally investigate or prosecute any alcohol or drug abuse patient.[facility] CenterIn the event this information is protected by the Federal Confidentiality of Alcohol and Drug Abuse Patient Records regulations: The Federal rules restrict any use of the information to criminally investigate or prosecute any alcohol or drug abuse patient.[facility] CenterIn the event this information is protected by the Federal Confidentiality of Alcohol and Drug Abuse Patient Records regulations: The Federal rules restrict any use of the information to criminally investigate or prosecute any alcohol or drug abuse patient.[facility] CenterIn the event this information is protected by the Federal Confidentiality of Alcohol and Drug Abuse Patient Records regulations: The Federal rules restrict any use of the information to criminally investigate or prosecute any alcohol or drug abuse patient.[facility] CenterIn the event this information is protected by the Federal Confidentiality of Alcohol and Drug Abuse Patient Records regulations: The Federal rules restrict any use of the information to criminally investigate or prosecute any alcohol or drug abuse patient.[facility] CenterIn the event this information is protected by the Federal Confidentiality of Alcohol and Drug Abuse Patient Records regulations: The Federal rules restrict any use of the information to criminally investigate or prosecute any alcohol or drug abuse patient.[facility] CenterIn the event this information is protected by the Federal Confidentiality of Alcohol and Drug Abuse Patient Records regulations: The Federal rules restrict any use of the information to criminally investigate or prosecute any alcohol or drug abuse patient.[facility] CenterIn the event this information is protected by the Federal Confidentiality of Alcohol and Drug Abuse Patient Records regulations: The Federal rules restrict any use of the information to criminally investigate or prosecute any alcohol or drug abuse patient.[facility] CenterIn the event this information is protected by the Federal Confidentiality of Alcohol and Drug Abuse Patient Records regulations: The Federal rules restrict any use of the information to criminally investigate or prosecute any alcohol or drug abuse patient.[facility] CenterIn the event this information is protected by the Federal Confidentiality of Alcohol and Drug Abuse Patient Records regulations: The Federal rules restrict any use of the information to criminally investigate or prosecute any alcohol or drug abuse patient.[facility] CenterIn the event this information is protected by the Federal Confidentiality of Alcohol and Drug Abuse Patient Records regulations: The Federal rules restrict any use of the information to criminally investigate or prosecute any alcohol or drug abuse patient.[facility] CenterIn the event this information is protected by the Federal Confidentiality of Alcohol and Drug Abuse Patient Records regulations: The Federal rules restrict any use of the information to criminally investigate or prosecute any alcohol or drug abuse patient.[facility] CenterIn the event this information is protected by the Federal Confidentiality of Alcohol and Drug Abuse Patient Records regulations: The Federal rules restrict any use of the information to criminally investigate or prosecute any alcohol or drug abuse patient.[facility] CenterIn the event this information is protected by the Federal Confidentiality of Alcohol and Drug Abuse Patient Records regulations: The Federal rules restrict any use of the information to criminally investigate or prosecute any alcohol or drug abuse patient.[facility] CenterIn the event this information is protected by the Federal Confidentiality of Alcohol and Drug Abuse Patient Records regulations: The Federal rules restrict any use of the information to criminally investigate or prosecute any alcohol or drug abuse patient.[facility] CenterIn the event this information is protected by the Federal Confidentiality of Alcohol and Drug Abuse Patient Records regulations: The Federal rules restrict any use of the information to criminally investigate or prosecute any alcohol or drug abuse patient.[facility] CenterIn the event this information is protected by the Federal Confidentiality of Alcohol and Drug Abuse Patient Records regulations: The Federal rules restrict any use of the information to criminally investigate or prosecute any alcohol or drug abuse patient.[facility] CenterIn the event this information is protected by the Federal Confidentiality of Alcohol and Drug Abuse Patient Records regulations: The Federal rules restrict any use of the information to criminally investigate or prosecute any alcohol or drug abuse patient.[facility] CenterIn the event this information is protected by the Federal Confidentiality of Alcohol and Drug Abuse Patient Records regulations: The Federal rules restrict any use of the information to criminally investigate or prosecute any alcohol or drug abuse patient.[facility] CenterIn the event this information is protected by the Federal Confidentiality of Alcohol and Drug Abuse Patient Records regulations: The Federal rules restrict any use of the information to criminally investigate or prosecute any alcohol or drug abuse patient.[facility] CenterIn the event this information is protected by the Federal Confidentiality of Alcohol and Drug Abuse Patient Records regulations: The Federal rules restrict any use of the information to criminally investigate or prosecute any alcohol or drug abuse patient.[facility] CenterIn the event this information is protected by the Federal Confidentiality of Alcohol and Drug Abuse Patient Records regulations: The Federal rules restrict any use of the information to criminally investigate or prosecute any alcohol or drug abuse patient.[facility] CenterIn the event this information is protected by the Federal Confidentiality of Alcohol and Drug Abuse Patient Records regulations: The Federal rules restrict any use of the information to criminally investigate or prosecute any alcohol or drug abuse patient.[facility] CenterIn the event this information is protected by the Federal Confidentiality of Alcohol and Drug Abuse Patient Records regulations: The Federal rules restrict any use of the information to criminally investigate or prosecute any alcohol or drug abuse patient.[facility] CenterIn the event this information is protected by the Federal Confidentiality of Alcohol and Drug Abuse Patient Records regulations: The Federal rules restrict any use of the information to criminally investigate or prosecute any alcohol or drug abuse patient.[facility] CenterIn the event this information is protected by the Federal Confidentiality of Alcohol and Drug Abuse Patient Records regulations: The Federal rules restrict any use of the information to criminally investigate or prosecute any alcohol or drug abuse patient.[facility] CenterIn the event this information is protected by the Federal Confidentiality of Alcohol and Drug Abuse Patient Records regulations: The Federal rules restrict any use of the information to criminally investigate or prosecute any alcohol or drug abuse patient.[facility] CenterIn the event this information is protected by the Federal Confidentiality of Alcohol and Drug Abuse Patient Records regulations: The Federal rules restrict any use of the information to criminally investigate or prosecute any alcohol or drug abuse patient.[facility] CenterIn the event this information is protected by the Federal Confidentiality of Alcohol and Drug Abuse Patient Records regulations: The Federal rules restrict any use of the information to criminally investigate or prosecute any alcohol or drug abuse patient.[facility] CenterIn the event this information is protected by the Federal Confidentiality of Alcohol and Drug Abuse Patient Records regulations: The Federal rules restrict any use of the information to criminally investigate or prosecute any alcohol or drug abuse patient.[facility] CenterIn the event this information is protected by the Federal Confidentiality of Alcohol and Drug Abuse Patient Records regulations: The Federal rules restrict any use of the information to criminally investigate or prosecute any alcohol or drug abuse patient.[facility] CenterIn the event this information is protected by the Federal Confidentiality of Alcohol and Drug Abuse Patient Records regulations: The Federal rules restrict any use of the information to criminally investigate or prosecute any alcohol or drug abuse patient.[facility] CenterIn the event this information is protected by the Federal Confidentiality of Alcohol and Drug Abuse Patient Records regulations: The Federal rules restrict any use of the information to criminally investigate or prosecute any alcohol or drug abuse patient.[facility] CenterIn the event this information is protected by the Federal Confidentiality of Alcohol and Drug Abuse Patient Records regulations: The Federal rules restrict any use of the information to criminally investigate or prosecute any alcohol or drug abuse patient.[facility] CenterIn the event this information is protected by the Federal Confidentiality of Alcohol and Drug Abuse Patient Records regulations: The Federal rules restrict any use of the information to criminally investigate or prosecute any alcohol or drug abuse patient.[facility] CenterIn the event this information is protected by the Federal Confidentiality of Alcohol and Drug Abuse Patient Records regulations: The Federal rules restrict any use of the information to criminally investigate or prosecute any alcohol or drug abuse patient.[facility] CenterIn the event this information is protected by the Federal Confidentiality of Alcohol and Drug Abuse Patient Records regulations: The Federal rules restrict any use of the information to criminally investigate or prosecute any alcohol or drug abuse patient.[facility] CenterIn the event this information is protected by the Federal Confidentiality of Alcohol and Drug Abuse Patient Records regulations: The Federal rules restrict any use of the information to criminally investigate or prosecute any alcohol or drug abuse patient.[facility] CenterIn the event this information is protected by the Federal Confidentiality of Alcohol and Drug Abuse Patient Records regulations: The Federal rules restrict any use of the information to criminally investigate or prosecute any alcohol or drug abuse patient.[facility] CenterIn the event this information is protected by the Federal Confidentiality of Alcohol and Drug Abuse Patient Records regulations: The Federal rules restrict any use of the information to criminally investigate or prosecute any alcohol or drug abuse patient.[facility] CenterIn the event this information is protected by the Federal Confidentiality of Alcohol and Drug Abuse Patient Records regulations: The Federal rules restrict any use of the information to criminally investigate or prosecute any alcohol or drug abuse patient.[facility] CenterIn the event this information is protected by the Federal Confidentiality of Alcohol and Drug Abuse Patient Records regulations: The Federal rules restrict any use of the information to criminally investigate or prosecute any alcohol or drug abuse patient.[facility] CenterIn the event this information is protected by the Federal Confidentiality of Alcohol and Drug Abuse Patient Records regulations: The Federal rules restrict any use of the information to criminally investigate or prosecute any alcohol or drug abuse patient.[facility] CenterIn the event this information is protected by the Federal Confidentiality of Alcohol and Drug Abuse Patient Records regulations: The Federal rules restrict any use of the information to criminally investigate or prosecute any alcohol or drug abuse patient.[facility] CenterIn the event this information is protected by the Federal Confidentiality of Alcohol and Drug Abuse Patient Records regulations: The Federal rules restrict any use of the information to criminally investigate or prosecute any alcohol or drug abuse patient.[facility] CenterIn the event this information is protected by the Federal Confidentiality of Alcohol and Drug Abuse Patient Records regulations: The Federal rules restrict any use of the information to criminally investigate or prosecute any alcohol or drug abuse patient.[facility] CenterIn the event this information is protected by the Federal Confidentiality of Alcohol and Drug Abuse Patient Records regulations: The Federal rules restrict any use of the information to criminally investigate or prosecute any alcohol or drug abuse patient.[facility] CenterIn the event this information is protected by the Federal Confidentiality of Alcohol and Drug Abuse Patient Records regulations: The Federal rules restrict any use of the information to criminally investigate or prosecute any alcohol or drug abuse patient.[facility] CenterIn the event this information is protected by the Federal Confidentiality of Alcohol and Drug Abuse Patient Records regulations: The Federal rules restrict any use of the information to criminally investigate or prosecute any alcohol or drug abuse patient.[facility] CenterIn the event this information is protected by the Federal Confidentiality of Alcohol and Drug Abuse Patient Records regulations: The Federal rules restrict any use of the information to criminally investigate or prosecute any alcohol or drug abuse patient.[facility] CenterIn the event this information is protected by the Federal Confidentiality of Alcohol and Drug Abuse Patient Records regulations: The Federal rules restrict any use of the information to criminally investigate or prosecute any alcohol or drug abuse patient.[facility] CenterIn the event this information is protected by the Federal Confidentiality of Alcohol and Drug Abuse Patient Records regulations: The Federal rules restrict any use of the information to criminally investigate or prosecute any alcohol or drug abuse patient.[facility]In the event this information is protected by the Federal Confidentiality of Alcohol and Drug Abuse Patient Records regulations: The Federal rules restrict any use of the information to criminally investigate or prosecute any alcohol or drug abuse patient.[facility]In the event this information is protected by the Federal Confidentiality of Alcohol and Drug Abuse Patient Records regulations: The Federal rules restrict any use of the information to criminally investigate or prosecute any alcohol or drug abuse patient.[facility]In the event this information is protected by the Federal Confidentiality of Alcohol and Drug Abuse Patient Records regulations: The Federal rules restrict any use of the information to criminally investigate or prosecute any alcohol or drug abuse patient.[facility]In the event this information is protected by the Federal Confidentiality of Alcohol and Drug Abuse Patient Records regulations: The Federal rules restrict any use of the information to criminally investigate or prosecute any alcohol or drug abuse patient.[facility]In the event this information is protected by the Federal Confidentiality of Alcohol and Drug Abuse Patient Records regulations: The Federal rules restrict any use of the information to criminally investigate or prosecute any alcohol or drug abuse patient.[facility]In the event this information is protected by the Federal Confidentiality of Alcohol and Drug Abuse Patient Records regulations: The Federal rules restrict any use of the information to criminally investigate or prosecute any alcohol or drug abuse patient.[facility]In the event this information is protected by the Federal Confidentiality of Alcohol and Drug Abuse Patient Records regulations: The Federal rules restrict any use of the information to criminally investigate or prosecute any alcohol or drug abuse patient.[facility]In the event this information is protected by the Federal Confidentiality of Alcohol and Drug Abuse Patient Records regulations: The Federal rules restrict any use of the information to criminally investigate or prosecute any alcohol or drug abuse patient.[facility]In the event this information is protected by the Federal Confidentiality of Alcohol and Drug Abuse Patient Records regulations: The Federal rules restrict any use of the information to criminally investigate or prosecute any alcohol or drug abuse patient.[facility]In the event this information is protected by the Federal Confidentiality of Alcohol and Drug Abuse Patient Records regulations: The Federal rules restrict any use of the information to criminally investigate or prosecute any alcohol or drug abuse patient.[facility]In the event this information is protected by the Federal Confidentiality of Alcohol and Drug Abuse Patient Records regulations: The Federal rules restrict any use of the information to criminally investigate or prosecute any alcohol or drug abuse patient.[facility]In the event this information is protected by the Federal Confidentiality of Alcohol and Drug Abuse Patient Records regulations: The Federal rules restrict any use of the information to criminally investigate or prosecute any alcohol or drug abuse patient.[facility]In the event this information is protected by the Federal Confidentiality of Alcohol and Drug Abuse Patient Records regulations: The Federal rules restrict any use of the information to criminally investigate or prosecute any alcohol or drug abuse patient.[facility]In the event this information is protected by the Federal Confidentiality of Alcohol and Drug Abuse Patient Records regulations: The Federal rules restrict any use of the information to criminally investigate or prosecute any alcohol or drug abuse patient.[facility]In the event this information is protected by the Federal Confidentiality of Alcohol and Drug Abuse Patient Records regulations: The Federal rules restrict any use of the information to criminally investigate or prosecute any alcohol or drug abuse patient.[facility]In the event this information is protected by the Federal Confidentiality of Alcohol and Drug Abuse Patient Records regulations: The Federal rules restrict any use of the information to criminally investigate or prosecute any alcohol or drug abuse patient.[facility]In the event this information is protected by the Federal Confidentiality of Alcohol and Drug Abuse Patient Records regulations: The Federal rules restrict any use of the information to criminally investigate or prosecute any alcohol or drug abuse patient.[facility]In the event this information is protected by the Federal Confidentiality of Alcohol and Drug Abuse Patient Records regulations: The Federal rules restrict any use of the information to criminally investigate or prosecute any alcohol or drug abuse patient.[facility]In the event this information is protected by the Federal Confidentiality of Alcohol and Drug Abuse Patient Records regulations: The Federal rules restrict any use of the information to criminally investigate or prosecute any alcohol or drug abuse patient.[facility]In the event this information is protected by the Federal Confidentiality of Alcohol and Drug Abuse Patient Records regulations: The Federal rules restrict any use of the information to criminally investigate or prosecute any alcohol or drug abuse patient.[facility]In the event this information is protected by the Federal Confidentiality of Alcohol and Drug Abuse Patient Records regulations: The Federal rules restrict any use of the information to criminally investigate or prosecute any alcohol or drug abuse patient.[facility]In the event this information is protected by the Federal Confidentiality of Alcohol and Drug Abuse Patient Records regulations: The Federal rules restrict any use of the information to criminally investigate or prosecute any alcohol or drug abuse patient.[facility]In the event this information is protected by the Federal Confidentiality of Alcohol and Drug Abuse Patient Records regulations: The Federal rules restrict any use of the information to criminally investigate or prosecute any alcohol or drug abuse patient.[facility]In the event this information is protected by the Federal Confidentiality of Alcohol and Drug Abuse Patient Records regulations: The Federal rules restrict any use of the information to criminally investigate or prosecute any alcohol or drug abuse patient.[facility]In the event this information is protected by the Federal Confidentiality of Alcohol and Drug Abuse Patient Records regulations: The Federal rules restrict any use of the information to criminally investigate or prosecute any alcohol or drug abuse patient.[facility]In the event this information is protected by the Federal Confidentiality of Alcohol and Drug Abuse Patient Records regulations: The Federal rules restrict any use of the information to criminally investigate or prosecute any alcohol or drug abuse patient.[facility]In the event this information is protected by the Federal Confidentiality of Alcohol and Drug Abuse Patient Records regulations: The Federal rules restrict any use of the information to criminally investigate or prosecute any alcohol or drug abuse patient.[facility]In the event this information is protected by the Federal Confidentiality of Alcohol and Drug Abuse Patient Records regulations: The Federal rules restrict any use of the information to criminally investigate or prosecute any alcohol or drug abuse patient.[facility]In the event this information is protected by the Federal Confidentiality of Alcohol and Drug Abuse Patient Records regulations: The Federal rules restrict any use of the information to criminally investigate or prosecute any alcohol or drug abuse patient.[facility]In the event this information is protected by the Federal Confidentiality of Alcohol and Drug Abuse Patient Records regulations: The Federal rules restrict any use of the information to criminally investigate or prosecute any alcohol or drug abuse patient.[facility]In the event this information is protected by the Federal Confidentiality of Alcohol and Drug Abuse Patient Records regulations: The Federal rules restrict any use of the information to criminally investigate or prosecute any alcohol or drug abuse patient.[facility]In the event this information is protected by the Federal Confidentiality of Alcohol and Drug Abuse Patient Records regulations: The Federal rules restrict any use of the information to criminally investigate or prosecute any alcohol or drug abuse patient.[facility]In the event this information is protected by the Federal Confidentiality of Alcohol and Drug Abuse Patient Records regulations: The Federal rules restrict any use of the information to criminally investigate or prosecute any alcohol or drug abuse patient.[facility]In the event this information is protected by the Federal Confidentiality of Alcohol and Drug Abuse Patient Records regulations: The Federal rules restrict any use of the information to criminally investigate or prosecute any alcohol or drug abuse patient.[facility]In the event this information is protected by the Federal Confidentiality of Alcohol and Drug Abuse Patient Records regulations: The Federal rules restrict any use of the information to criminally investigate or prosecute any alcohol or drug abuse patient.[facility]In the event this information is protected by the Federal Confidentiality of Alcohol and Drug Abuse Patient Records regulations: The Federal rules restrict any use of the information to criminally investigate or prosecute any alcohol or drug abuse patient.[facility]In the event this information is protected by the Federal Confidentiality of Alcohol and Drug Abuse Patient Records regulations: The Federal rules restrict any use of the information to criminally investigate or prosecute any alcohol or drug abuse patient.[facility]In the event this information is protected by the Federal Confidentiality of Alcohol and Drug Abuse Patient Records regulations: The Federal rules restrict any use of the information to criminally investigate or prosecute any alcohol or drug abuse patient.[facility]In the event this information is protected by the Federal Confidentiality of Alcohol and Drug Abuse Patient Records regulations: The Federal rules restrict any use of the information to criminally investigate or prosecute any alcohol or drug abuse patient.[facility]In the event this information is protected by the Federal Confidentiality of Alcohol and Drug Abuse Patient Records regulations: The Federal rules restrict any use of the information to criminally investigate or prosecute any alcohol or drug abuse patient.[facility]In the event this information is protected by the Federal Confidentiality of Alcohol and Drug Abuse Patient Records regulations: The Federal rules restrict any use of the information to criminally investigate or prosecute any alcohol or drug abuse patient.[facility]In the event this information is protected by the Federal Confidentiality of Alcohol and Drug Abuse Patient Records regulations: The Federal rules restrict any use of the information to criminally investigate or prosecute any alcohol or drug abuse patient.[facility]In the event this information is protected by the Federal Confidentiality of Alcohol and Drug Abuse Patient Records regulations: The Federal rules restrict any use of the information to criminally investigate or prosecute any alcohol or drug abuse patient.[facility]In the event this information is protected by the Federal Confidentiality of Alcohol and Drug Abuse Patient Records regulations: The Federal rules restrict any use of the information to criminally investigate or prosecute any alcohol or drug abuse patient.[facility]In the event this information is protected by the Federal Confidentiality of Alcohol and Drug Abuse Patient Records regulations: The Federal rules restrict any use of the information to criminally investigate or prosecute any alcohol or drug abuse patient.[facility]In the event this information is protected by the Federal Confidentiality of Alcohol and Drug Abuse Patient Records regulations: The Federal rules restrict any use of the information to criminally investigate or prosecute any alcohol or drug abuse patient.[facility]In the event this information is protected by the Federal Confidentiality of Alcohol and Drug Abuse Patient Records regulations: The Federal rules restrict any use of the information to criminally investigate or prosecute any alcohol or drug abuse patient.[facility]In the event this information is protected by the Federal Confidentiality of Alcohol and Drug Abuse Patient Records regulations: The Federal rules restrict any use of the information to criminally investigate or prosecute any alcohol or drug abuse patient.[facility]In the event this information is protected by the Federal Confidentiality of Alcohol and Drug Abuse Patient Records regulations: The Federal rules restrict any use of the information to criminally investigate or prosecute any alcohol or drug abuse patient.[facility]In the event this information is protected by the Federal Confidentiality of Alcohol and Drug Abuse Patient Records regulations: The Federal rules restrict any use of the information to criminally investigate or prosecute any alcohol or drug abuse patient.[facility]In the event this information is protected by the Federal Confidentiality of Alcohol and Drug Abuse Patient Records regulations: The Federal rules restrict any use of the information to criminally investigate or prosecute any alcohol or drug abuse patient.[facility] CenterIn the event this information is protected by the Federal Confidentiality of Alcohol and Drug Abuse Patient Records regulations: The Federal rules restrict any use of the information to criminally investigate or prosecute any alcohol or drug abuse patient.[facility] CenterIn the event this information is protected by the Federal Confidentiality of Alcohol and Drug Abuse Patient Records regulations: The Federal rules restrict any use of the information to criminally investigate or prosecute any alcohol or drug abuse patient.[facility] CenterIn the event this information is protected by the Federal Confidentiality of Alcohol and Drug Abuse Patient Records regulations: The Federal rules restrict any use of the information to criminally investigate or prosecute any alcohol or drug abuse patient.[facility] CenterIn the event this information is protected by the Federal Confidentiality of Alcohol and Drug Abuse Patient Records regulations: The Federal rules restrict any use of the information to criminally investigate or prosecute any alcohol or drug abuse patient.[facility] CenterIn the event this information is protected by the Federal Confidentiality of Alcohol and Drug Abuse Patient Records regulations: The Federal rules restrict any use of the information to criminally investigate or prosecute any alcohol or drug abuse patient.[facility] CenterIn the event this information is protected by the Federal Confidentiality of Alcohol and Drug Abuse Patient Records regulations: The Federal rules restrict any use of the information to criminally investigate or prosecute any alcohol or drug abuse patient.[facility] CenterIn the event this information is protected by the Federal Confidentiality of Alcohol and Drug Abuse Patient Records regulations: The Federal rules restrict any use of the information to criminally investigate or prosecute any alcohol or drug abuse patient.[facility] CenterIn the event this information is protected by the Federal Confidentiality of Alcohol and Drug Abuse Patient Records regulations: The Federal rules restrict any use of the information to criminally investigate or prosecute any alcohol or drug abuse patient.[facility] CenterIn the event this information is protected by the Federal Confidentiality of Alcohol and Drug Abuse Patient Records regulations: The Federal rules restrict any use of the information to criminally investigate or prosecute any alcohol or drug abuse patient.[facility] CenterIn the event this information is protected by the Federal Confidentiality of Alcohol and Drug Abuse Patient Records regulations: The Federal rules restrict any use of the information to criminally investigate or prosecute any alcohol or drug abuse patient.[facility] CenterIn the event this information is protected by the Federal Confidentiality of Alcohol and Drug Abuse Patient Records regulations: The Federal rules restrict any use of the information to criminally investigate or prosecute any alcohol or drug abuse patient.[facility] CenterIn the event this information is protected by the Federal Confidentiality of Alcohol and Drug Abuse Patient Records regulations: The Federal rules restrict any use of the information to criminally investigate or prosecute any alcohol or drug abuse patient.[facility] CenterIn the event this information is protected by the Federal Confidentiality of Alcohol and Drug Abuse Patient Records regulations: The Federal rules restrict any use of the information to criminally investigate or prosecute any alcohol or drug abuse patient.[facility] CenterIn the event this information is protected by the Federal Confidentiality of Alcohol and Drug Abuse Patient Records regulations: The Federal rules restrict any use of the information to criminally investigate or prosecute any alcohol or drug abuse patient.[facility] CenterIn the event this information is protected by the Federal Confidentiality of Alcohol and Drug Abuse Patient Records regulations: The Federal rules restrict any use of the information to criminally investigate or prosecute any alcohol or drug abuse patient.[facility] CenterIn the event this information is protected by the Federal Confidentiality of Alcohol and Drug Abuse Patient Records regulations: The Federal rules restrict any use of the information to criminally investigate or prosecute any alcohol or drug abuse patient.[facility] CenterIn the event this information is protected by the Federal Confidentiality of Alcohol and Drug Abuse Patient Records regulations: The Federal rules restrict any use of the information to criminally investigate or prosecute any alcohol or drug abuse patient.[facility] CenterIn the event this information is protected by the Federal Confidentiality of Alcohol and Drug Abuse Patient Records regulations: The Federal rules restrict any use of the information to criminally investigate or prosecute any alcohol or drug abuse patient.[facility] CenterIn the event this information is protected by the Federal Confidentiality of Alcohol and Drug Abuse Patient Records regulations: The Federal rules restrict any use of the information to criminally investigate or prosecute any alcohol or drug abuse patient.[facility] CenterIn the event this information is protected by the Federal Confidentiality of Alcohol and Drug Abuse Patient Records regulations: The Federal rules restrict any use of the information to criminally investigate or prosecute any alcohol or drug abuse patient.[facility] CenterIn the event this information is protected by the Federal Confidentiality of Alcohol and Drug Abuse Patient Records regulations: The Federal rules restrict any use of the information to criminally investigate or prosecute any alcohol or drug abuse patient.[facility] CenterIn the event this information is protected by the Federal Confidentiality of Alcohol and Drug Abuse Patient Records regulations: The Federal rules restrict any use of the information to criminally investigate or prosecute any alcohol or drug abuse patient.[facility] CenterIn the event this information is protected by the Federal Confidentiality of Alcohol and Drug Abuse Patient Records regulations: The Federal rules restrict any use of the information to criminally investigate or prosecute any alcohol or drug abuse patient.[facility] CenterIn the event this information is protected by the Federal Confidentiality of Alcohol and Drug Abuse Patient Records regulations: The Federal rules restrict any use of the information to criminally investigate or prosecute any alcohol or drug abuse patient.[facility] CenterIn the event this information is protected by the Federal Confidentiality of Alcohol and Drug Abuse Patient Records regulations: The Federal rules restrict any use of the information to criminally investigate or prosecute any alcohol or drug abuse patient.[facility] CenterIn the event this information is protected by the Federal Confidentiality of Alcohol and Drug Abuse Patient Records regulations: The Federal rules restrict any use of the information to criminally investigate or prosecute any alcohol or drug abuse patient.[facility] CenterIn the event this information is protected by the Federal Confidentiality of Alcohol and Drug Abuse Patient Records regulations: The Federal rules restrict any use of the information to criminally investigate or prosecute any alcohol or drug abuse patient.[facility] CenterIn the event this information is protected by the Federal Confidentiality of Alcohol and Drug Abuse Patient Records regulations: The Federal rules restrict any use of the information to criminally investigate or prosecute any alcohol or drug abuse patient.[facility] CenterIn the event this information is protected by the Federal Confidentiality of Alcohol and Drug Abuse Patient Records regulations: The Federal rules restrict any use of the information to criminally investigate or prosecute any alcohol or drug abuse patient.[facility] CenterIn the event this information is protected by the Federal Confidentiality of Alcohol and Drug Abuse Patient Records regulations: The Federal rules restrict any use of the information to criminally investigate or prosecute any alcohol or drug abuse patient.[facility] CenterIn the event this information is protected by the Federal Confidentiality of Alcohol and Drug Abuse Patient Records regulations: The Federal rules restrict any use of the information to criminally investigate or prosecute any alcohol or drug abuse patient.[facility] CenterIn the event this information is protected by the Federal Confidentiality of Alcohol and Drug Abuse Patient Records regulations: The Federal rules restrict any use of the information to criminally investigate or prosecute any alcohol or drug abuse patient.[facility] CenterIn the event this information is protected by the Federal Confidentiality of Alcohol and Drug Abuse Patient Records regulations: The Federal rules restrict any use of the information to criminally investigate or prosecute any alcohol or drug abuse patient.[facility] CenterIn the event this information is protected by the Federal Confidentiality of Alcohol and Drug Abuse Patient Records regulations: The Federal rules restrict any use of the information to criminally investigate or prosecute any alcohol or drug abuse patient.[facility] CenterIn the event this information is protected by the Federal Confidentiality of Alcohol and Drug Abuse Patient Records regulations: The Federal rules restrict any use of the information to criminally investigate or prosecute any alcohol or drug abuse patient.[facility] CenterIn the event this information is protected by the Federal Confidentiality of Alcohol and Drug Abuse Patient Records regulations: The Federal rules restrict any use of the information to criminally investigate or prosecute any alcohol or drug abuse patient.[facility] CenterIn the event this information is protected by the Federal Confidentiality of Alcohol and Drug Abuse Patient Records regulations: The Federal rules restrict any use of the information to criminally investigate or prosecute any alcohol or drug abuse patient.[facility] CenterIn the event this information is protected by the Federal Confidentiality of Alcohol and Drug Abuse Patient Records regulations: The Federal rules restrict any use of the information to criminally investigate or prosecute any alcohol or drug abuse patient.[facility] CenterIn the event this information is protected by the Federal Confidentiality of Alcohol and Drug Abuse Patient Records regulations: The Federal rules restrict any use of the information to criminally investigate or prosecute any alcohol or drug abuse patient.[facility] CenterIn the event this information is protected by the Federal Confidentiality of Alcohol and Drug Abuse Patient Records regulations: The Federal rules restrict any use of the information to criminally investigate or prosecute any alcohol or drug abuse patient.[facility] CenterIn the event this information is protected by the Federal Confidentiality of Alcohol and Drug Abuse Patient Records regulations: The Federal rules restrict any use of the information to criminally investigate or prosecute any alcohol or drug abuse patient.[facility] CenterIn the event this information is protected by the Federal Confidentiality of Alcohol and Drug Abuse Patient Records regulations: The Federal rules restrict any use of the information to criminally investigate or prosecute any alcohol or drug abuse patient.[facility] CenterIn the event this information is protected by the Federal Confidentiality of Alcohol and Drug Abuse Patient Records regulations: The Federal rules restrict any use of the information to criminally investigate or prosecute any alcohol or drug abuse patient.[facility] CenterIn the event this information is protected by the Federal Confidentiality of Alcohol and Drug Abuse Patient Records regulations: The Federal rules restrict any use of the information to criminally investigate or prosecute any alcohol or drug abuse patient.[facility] CenterIn the event this information is protected by the Federal Confidentiality of Alcohol and Drug Abuse Patient Records regulations: The Federal rules restrict any use of the information to criminally investigate or prosecute any alcohol or drug abuse patient.[facility] CenterIn the event this information is protected by the Federal Confidentiality of Alcohol and Drug Abuse Patient Records regulations: The Federal rules restrict any use of the information to criminally investigate or prosecute any alcohol or drug abuse patient.[facility] CenterIn the event this information is protected by the Federal Confidentiality of Alcohol and Drug Abuse Patient Records regulations: The Federal rules restrict any use of the information to criminally investigate or prosecute any alcohol or drug abuse patient.[facility] CenterIn the event this information is protected by the Federal Confidentiality of Alcohol and Drug Abuse Patient Records regulations: The Federal rules restrict any use of the information to criminally investigate or prosecute any alcohol or drug abuse patient.[facility] CenterIn the event this information is protected by the Federal Confidentiality of Alcohol and Drug Abuse Patient Records regulations: The Federal rules restrict any use of the information to criminally investigate or prosecute any alcohol or drug abuse patient.[facility] CenterIn the event this information is protected by the Federal Confidentiality of Alcohol and Drug Abuse Patient Records regulations: The Federal rules restrict any use of the information to criminally investigate or prosecute any alcohol or drug abuse patient.[facility] CenterIn the event this information is protected by the Federal Confidentiality of Alcohol and Drug Abuse Patient Records regulations: The Federal rules restrict any use of the information to criminally investigate or prosecute any alcohol or drug abuse patient.[facility] CenterIn the event this information is protected by the Federal Confidentiality of Alcohol and Drug Abuse Patient Records regulations: The Federal rules restrict any use of the information to criminally investigate or prosecute any alcohol or drug abuse patient.[facility] CenterIn the event this information is protected by the Federal Confidentiality of Alcohol and Drug Abuse Patient Records regulations: The Federal rules restrict any use of the information to criminally investigate or prosecute any alcohol or drug abuse patient.[facility] CenterIn the event this information is protected by the Federal Confidentiality of Alcohol and Drug Abuse Patient Records regulations: The Federal rules restrict any use of the information to criminally investigate or prosecute any alcohol or drug abuse patient.[facility] Reason for Visit (unrecogniz ed section and [...] Referred By Omar t Referred To Contact [facility] Diagnoses Radicular low back pain Chronic pain of right knee Procedures PT REHAB FOLLOW UP ORDER THERAPEUTIC EXERCISES RE, EA 15 MIN. Сергей Espinoza MD [address] [place] [address] [facility] [address] [address] Referral ID Status Reason Start Date Expiration Date Visits Requested Visits Authorized [id number] Authorized PCP Requested Referral Auto-Generate d Referral [...] 06/25/2022 Specialty Diagnoses / Procedures Referred By Omar t Referred To Contact CT IMAGING Diagnoses Lung nodules Procedures CT CHEST WO IVCON DIAGNOSTIC COMPUTED TOMOGRAPHY THORAX W/O CNTRST Sona Grier MD [address] [place] [address] Ct Imaging Referral ID Status Reason Start Date Expiration Date V isits Requested Visits Authorized [id number] Closed Auto-Generate d Referral 07/09/2022 05/11/2023 1 [...] WO IVCON DIAGNOSTIC COMPUTED TOMOGRAPHY THORAX W/O CNTBRAYANT Sona Grier MD [address] [place] [address] Ct Imaging [facility] Referral ID Status Reason Start Date Expiration Date V isits Requested Visits Authorized [id number] Closed Auto-Generate d Referral 01/28/2022 11/27/2022 1 [...] Medical Records Externa l referral to [facility] [place] Reason Onset Date Comments Refill Request 07/16/2023 [...] W/O CNTRST Sona Grier MD [id number] Imaging [place] [address] Referral ID Status Reason Start Date Expiration Date Visits Requested Visits Authorized [id number] Authorized Auto-Generat ed Referral 08/25/2023 09/24/2023 2 2 Reason Comments Spirometry Specialty Diagnoses / Procedures Referred By Contac t Referred To [facility] Diagnoses Interstitial pulmonary disease (HCC) Procedures LUNG DIFFUSION CAPACITY (DLCO) DIFFUSING CAPACITY Sona Grier MD [address] [id number] [place] [id number] Referral ID Status Reason Start Date Expiration Date V isits Requested Visits Authorized [id number] Closed Auto-Generate d Referral 03/24/2023 04/22/2024 1 1 Specialty Diagnoses / Procedures Referred By Contac t Referred To [facility] Diagnoses Interstitial pulmonary disease (HCC) Procedures LUNG VOLUMES Sona Grier MD [address] [place] [address] [place] [address] Referral ID Status Reason Start Date Expiration Date V isits Requested Visits Authorized [id number] Closed Auto-Generate d Referral 07/22/2023 03/01/2024 2 1 Specialty Diagnoses / Procedures Referred By Contac t [facility] Diagnoses Interstitial pulmonary disease (HCC) Procedures SPIROMETRY WITH DILATOR IF OBSTRUCTED BRNCDILAT RSPSE SPMTRY PRE&POST-BRNCDILAT ADMN Sona Grier MD [address] [place] [address] [facility] [place] [address] [place] [address] Referral ID Status Reason Start Date Expiration Date V isits Requested Visits Authorized [id number] Closed Auto-Generate d Referral 03/24/2023 04/22/2024 1 1 Reason Comments Follow Up Interstitial Pulmona ry Disease Reason Comments Release Of Medical Records [facility] Care Teams (unrecognized sec tion and content) Planning Intern Relationship Specialty Start Date End Date Сергей Espinoza MD [address] [place] [address] PCP - General Internal Medicine 01/21/17 Planning Intern Relationship Specialty Start Date End Date [place]oundСергей louis MD [address] [place] [address] PCP - General Internal Medicine 01/21/17 Planning Intern Relationship Specialty Start Date End Date Сергей Espinoza MD [address] [place] [address] PCP - General Internal Medicine 01/21/17 Planning Intern Relationship Specialty Start Date End Date Сергей Espinoza MD [address] [place] [address] PCP - General Internal Medicine 01/21/17 Planning Intern Relationship Specialty Start Date End Date Сергей Espinoza MD [address] [place] [address] PCP - General Internal Medicine 01/21/17 Planning Intern Relationship Specialty Start Date End Date Сергей Espinoza MD [address] [place] [address] PCP - General Internal Medicine 01/21/17 Planning Intern Relationship Specialty Start Date End Date Olga, Сергей Salguero MD [address] [place] [address] PCP - General Internal Medicine 01/21/17 Planning Intern Relationship Specialty Start Date End Date Olga, Сергей Salguero MD [address] [place] [address] PCP - General Internal Medicine 01/21/17 Planning Intern Relationship Specialty Start Date End Date Olga, Сергей Salguero MD [address] [place] [address] PCP - General Internal Medicine 01/21/17 Planning Intern Relationship Specialty Start Date End Date [place], Сергей Salguero MD [address] [place] [address] PCP - General Internal Medicine 01/21/17 Planning Intern Relationship Specialty Start Date End Date Olga, Сергей Salguero MD [address] [place] [address] PCP - General Internal Medicine 01/21/17 Planning Intern Relationship Specialty Start Date End Date [place], Сергей Salguero MD [address] [place] [address] PCP - General Internal Medicine 01/21/17 Planning Intern Relationship Specialty Start Date End Date [place], Сергей Salguero MD [address] [place] [address] PCP - General Internal Medicine 01/21/17 Planning Intern Relationship Specialty Start Date End Date Olga, Сергей Salguero MD [address] [place] [address] PCP - General Internal Medicine 01/21/17 Planning Intern Relationship Specialty Start Date End Date [place], Сергей Salguero MD [address] [place] [address] PCP - General Internal Medicine 01/21/17 Planning Intern Relationship Specialty Start Date End Date [place], Сергей Salguero MD [facility] [address] PCP - General Internal Medicine 01/21/17 Planning Intern Relationship Specialty Start Date End Date Olga, Сергей Salguero MD [facility] [address] PCP - General Internal Medicine 01/21/17 Planning Intern Relationship Specialty Start Date End Date Olga, Сергей Salguero MD [facility] [address] PCP - General Internal Medicine 01/21/17 Planning Intern Relationship Specialty Start Date End Date [place], Сергей Salguero MD [facility] [address] PCP - General Internal Medicine 01/21/17 Planning Intern Relationship Specialty Start Date End Date [place], Сергей Salguero MD [facility] [address] PCP - General Internal Medicine 01/21/17 Planning Intern Relationship Specialty Start Date End Date [place], Сергей Salguero MD [facility] [address] PCP - General Internal Medicine 01/21/17 Planning Intern Relationship Specialty Start Date End Date Olga, Сергей Salguero MD [facility] [address] PCP - General Internal Medicine 01/21/17 Planning Intern Relationship Specialty Start Date End Date [place], Сергей Salguero MD [facility] [address] PCP - General Internal Medicine 01/21/17 Planning Intern Relationship Specialty Start Date End Date Olga, Сергей Salguero MD [address] [place] [address] PCP - General Internal Medicine 01/21/17 Planning Intern Relationship Specialty Start Date End Date [place], Сергей Salguero MD [address] [place] [address] PCP - General Internal Medicine 01/21/17 Planning Intern Relationship Specialty Start Date End Date [place], Сергей Salguero MD [address] [place] [address] PCP - General Internal Medicine 01/21/17 Planning Intern Relationship Specialty Start Date End Date Olga, Сергей Salguero MD [address] [place] [address] PCP - General Internal Medicine 01/21/17 Planning Intern Relationship Specialty Start Date End Date [place], Сергей Salguero MD [address] [place] [address] PCP - General Internal Medicine 01/21/17 Planning Intern Relationship Specialty Start Date End Date [place], Сергей Salguero MD [address] [place] [address] PCP - General Internal Medicine 01/21/17 Planning Intern Relationship Specialty Start Date End Date [place], Сергей Salguero MD [address] [place] [address] PCP - General Internal Medicine 01/21/17 Planning Intern Relationship Specialty Start Date End Date Olga, Сергей Salguero MD [address] [place] [address] PCP - General Internal Medicine 01/21/17 Planning Intern Relationship Specialty Start Date End Date OlgaСергей MD [address] [place] [address] PCP - General Internal Medicine 01/21/17 Planning Intern Relationship Specialty Start Date End Date [place] MoundСергей MD [address] [place] [address] PCP - General Internal Medicine 01/21/17 Planning Intern Relationship Specialty Start Date End Date OlgaСергей MD [address] [place] [address] PCP - General Internal Medicine 01/21/17 Planning Intern Relationship Specialty Start Date End Date [place] MoundСергей MD [address] [place] [address] PCP - General Internal Medicine 01/21/17 Planning Intern Relationship Specialty Start Date End Date Wagon MoundСергей MD [address] [place] [address] PCP - General Internal Medicine 01/21/17 Planning Intern Relationship Specialty Start Date End Date OlgaСергей MD [address] [place] [address] PCP - General Internal Medicine 01/21/17 Planning Intern Relationship Specialty Start Date End Date OlgaСергей louis MD [address] [place] [address] PCP - General Internal Medicine 01/21/17 Planning Intern Relationship Specialty Start Date End Date Olga, Сергей Salguero MD [address] [place] [address] PCP - General Internal Medicine 01/21/17 Planning Intern Relationship Specialty Start Date End Date [place], Сергей Salguero MD [address] [place] [address] PCP - General Internal Medicine 01/21/17 Planning Intern Relationship Specialty Start Date End Date [place], Сергей Salguero MD [address] [place] [address] PCP - General Internal Medicine 01/21/17 Planning Intern Relationship Specialty Start Date End Date Olga, Сергей Salguero MD [address] [place] [address] PCP - General Internal Medicine 01/21/17 Planning Intern Relationship Specialty Start Date End Date [place], Сергей Salguero MD [address] [place] [address] PCP - General Internal Medicine 01/21/17 Planning Intern Relationship Specialty Start Date End Date [place], Сергей Salguero MD [address] [place] [address] PCP - General Internal Medicine 01/21/17 Planning Intern Relationship Specialty Start Date End Date Olga, Сергей Salguero MD [address] [place] [address] PCP - General Internal Medicine 01/21/17 Planning Intern Relationship Specialty Start Date End Date Olga, Сергей Salguero MD [address] [place] [address] PCP - General Internal Medicine 01/21/17 Planning Intern Relationship Specialty Start Date End Date Olga, Сергей Salguero MD [address] [place] [address] PCP - General Internal Medicine 01/21/17 Planning Intern Relationship Specialty Start Date End Date [place], Сергей Salguero MD [address] [place] [address] PCP - General Internal Medicine 01/21/17 Planning Intern Relationship Specialty Start Date End Date Olga, Сергей Salguero MD [address] [place] [address] PCP - General Internal Medicine 01/21/17 Planning Intern Relationship Specialty Start Date End Date [place], Сергей Salguero MD [address] [place] [address] PCP - General Internal Medicine 01/21/17 Planning Intern Relationship Specialty Start Date End Date Olga, Сергей Salguero MD [address] [place] [address] PCP - General Internal Medicine 01/21/17 Planning Intern Relationship Specialty Start Date End Date Olga, Сергей Salguero MD [address] [place] [address] PCP - General Internal Medicine 01/21/17 Planning Intern Relationship Specialty Start Date End Date [place], Сергей Salguero MD [address] [place] [address] PCP - General Internal Medicine 01/21/17 Planning Intern Relationship Specialty Start Date End Date [place], Сергей Salguero MD [address] [place] [address] PCP - General Internal Medicine 01/21/17 Planning Intern Relationship Specialty Start Date End Date Olga, Сергей Salguero MD [address] [place] [address] PCP - General Internal Medicine 01/21/17 Planning Intern Relationship Specialty Start Date End Date Olga, Сергей Salguero MD [address] [place] [address] PCP - General Internal Medicine 01/21/17 Planning Intern Relationship Specialty Start Date End Date [place], Сергей Salguero MD [address] [place] [address] PCP - General Internal Medicine 01/21/17 Planning Intern Relationship Specialty Start Date End Date Olga, Сергей Salguero MD [address] [place] [address] PCP - General Internal Medicine 01/21/17 Planning Intern Relationship Specialty Start Date End Date Olga, Сергей Salguero MD [address] [place] [address] PCP - General Internal Medicine 01/21/17 Planning Intern Relationship Specialty Start Date End Date Olga, Сергей Salguero MD [address] [place] [address] PCP - General Internal Medicine 01/21/17 Planning Intern Relationship Specialty Start Date End Date [place], Сергей Salguero MD [address] [place] [address] PCP - General Internal Medicine 01/21/17 Planning Intern Relationship Specialty Start Date End Date [place], Сергей Salguero MD [address] [place] [address] PCP - General Internal Medicine 01/21/17 Brayden Friend MD [address] [address] [place] Referring Team Anesthesiology 07/16/23 Planning Intern Relationship Specialty Start Date End Date Olga, Сергей Salguero MD [address] [place] [address] PCP - General Internal Medicine 01/21/17 Brayden Friend MD [address] [place] [address] [place] Referring Team Anesthesiology 07/16/23 Planning Intern Relationship Specialty Start Date End Date [place], Сергей Salguero MD [address] [place] [address] PCP - General Internal Medicine 01/21/17 Brayden Friend MD [address] [place] [address] [place] Referring Team Anesthesiology 07/16/23 Planning Intern Relationship Specialty Start Date End Date [place], Сергей Salguero MD [address] [place] [address] PCP - General Internal Medicine 01/21/17 Brayden Friend MD [address] [address] [place] Referring Team Anesthesiology 07/16/23 Planning Intern Relationship Specialty Start Date End Date Olga, Сергей Salguero MD [address] [place] [address] PCP - General Internal Medicine 01/21/17 Brayden Friend MD [address] [address] [place] Referring Team Anesthesiology 07/16/23 Planning Intern Relationship Specialty Start Date End Date Olga, Сергей Salguero MD [address] [place] [address] PCP - General Internal Medicine 01/21/17 Brayden Friend MD [address] [address] [place] Referring Team Anesthesiology 07/16/23 Planning Intern Relationship Specialty Start Date End Date [place], Сергей Salguero MD [address] [place] [address] PCP - General Internal Medicine 01/21/17 Brayden Friend MD [address] [address] [place] Referring Team Anesthesiology 07/16/23 Planning Intern Relationship Specialty Start Date End Date Wagon MoundСергей MD [address] [place] [address] PCP - General Internal Medicine 01/21/17 Brayden Friend MD [address] [address] [place] Referring Team Anesthesiology 07/16/23 Planning Intern Relationship Specialty Start Date End Date OlgaСергей louis MD [address] [place] [address] PCP - General Internal Medicine 01/21/17 Brayden Friend MD [address] [place] [address] [place] Referring Team Anesthesiology 07/16/23 Planning Intern Relationship Specialty Start Date End Date Сергей Espinoza MD [address] [place] [address] PCP - General Internal Medicine 01/21/17 Planning Intern Relationship Specialty Start Date End Date Сергей Espinoza MD [address] [place] [address] PCP - General Internal Medicine 01/21/17 Planning Intern Relationship Specialty Start Date End Date Сергей Espinoza MD [address] [place] [address] PCP - General Internal Medicine 01/21/17 Brayden Friend MD [address] [place] [address] [place] Referring Team Anesthesiology 07/16/23 Team Status: Active Member Role Status Dates Dr. Weston Bowers MD Family Provider Active Dr. Сергей Espinoza MD Primary Care Provider Active Team Status: Inactive Member Role Status Dates Dr. Сергей Espinoza MD Primary Care Provider Active Start: March 04, 2024 End: March 04, 2024 Stacie Chen RING SPINNER, RING SPINNER-C Attending Provider Active Start: March 04, 2024 [...] 2024 End: April 21, 2024 Stacie Chen RING SPINNER, RING SPINNER-C Attending Provider Active Start: April 21, 2024 [...] 2024 End: May 11, 2024 Stacie Chen RING SPINNER RING SPINNER-C Attending Provider Active Start: May 11, 2024 End: May 11, 2024 Team Status: Inactive Member Role Status Dates Dr. Сергей Espinoza MD Primary Care Provider Active Start: May 17, 2024 End: May 17, 2024 Stacie DELGADO NP-C Attending Provider Active Start: May 17, 2024 [...] July 19, 2024 End: July 19, 2024 Team Status: Active Member Role/Relationship Status Dates Dr. Weston Bowers MD Family Provider Active Dr. Сергей Espinoza MD Primary Care Provider Active Team Status: Inactive Member Role/Relationship Status Dates Dr. Сергей Espinoza MD Primary Care Provider Active Start: May 17, 2024 End: May 17, 2024 Stacie DELGADO RING SPINNER-C Attending Provider Active Start: May 17, 2024 End: May 17, 2024 Team Status: Inactive Member Role/Relationship Status Dates Dr. Сергей Espinoza MD Primary Care Provider Active Start: May 31, 2024 End: May 31, 2024 Dr. Anais Osullivan MD Attending Provider Active Start: May 31, 2024 End: May 31, 2024 Team Status: Inactive Member Role/Relationship Status Dates Dr. Сергей Espinoza MD Primary Care Provider Active Start: June 30, 2024 End: June 30, 2024 JADA Lazo Attending Provider Active St art: June 30, 2024 End: June 30, 2024 Team Status: Inactive Member Role/Relationship Status Dates Dr. Сергей Espinoza MD Primary Care Provider Active Start: July 19, 2024 End: July 19, 2024 Anais DELGADO MD Attending Provider Active Start: July 19, 2024 End: July 19, 2024 Team Status: Active Member Role/Relationship Status Dates Dr. Сергей Espinoza MD Primary Care Provider Active Start: September 13, 2024 Stacie DELGADO RING SPINNER-C Attending Provider Active Start: September 13, 2024 Team Status: Active Member Role/Relationship Status Dates Dr. Сергей Espinoza MD Primary Care Provider Active Start: September 14, 2024 Anais DELGADO MD Attending Provider Active Start: September 14, 2024 Team Status: Inactive Member Role/Relationship Status Dates Dr. Сергей Espinoza MD Primary Care Provider Active Start: July 26, 2024 End: July 26, 2024 Stacie Chen NP RING SPINNER-C Attending Provider Active Start: July 26, 2024 End: July 26, 2024 Team Status: Active Member Role/Relationship Status Dates Dr. Сергей Espinoza MD Primary Care Provider Active Start: September 13, 2024 Stacie DELGADO NP-C Attending Provider Active Start: September 13, 2024 Team Status: Active Member Role/Relationship Status Dates Dr. Сергей Espinoza MD Primary Care Provider Active Start: September 14, 2024 Anais DELGADO MD Attending Provider Active Start: September 14, 2024 Team Status: Inactive Member Role/Relationship Status Dates Dr. Сергей Espinoza MD Primary Care Provider Active Start: May 31, 2024 End: May 31, 2024 Dr. Anais Osullivan MD Attending Provider Active Start: May 31, 2024 End: May 31, 2024 Team Status: Inactive Member Role/Relationship Status Dates Dr. Сергей Espinoza MD Primary Care Provider Active Start: June 30, 2024 End: June 30, 2024 Tj ELIAS PA Attending Provider Active St art: June 30, 2024 End: June 30, 2024 Team Status: Inactive Member Role/Relationship Status Dates Dr. Сергей Espinoza MD Primary Care Provider Active Start: July 19, 2024 End: July 19, 2024 Anais DELGADO MD Attending Provider Active Start: July 19, 2024 End: July 19, 2024 Team Status: Inactive Member Role/Relationship Status Dates Dr. Сергей Espinoza MD Primary Care Provider Active Start: July 26, 2024 End: July 26, 2024 Stacie Chen NP RING SPINNER-C Attending Provider Active Start: July 26, 2024 End: July 26, 2024 Team Status: Inactive Member Role/Relationship Status Dates Dr. Сергей Espinoza MD Primary Care Provider Active Start: August 02, 2024 End: August 02, 2024 Dr. Anais Osullivan MD Attending Provider Active Start: August 02, 2024 End: August 02, 2024 Team Status: Inactive Member Role/Relationship Status Dates Dr. Сергей Espinoza MD Primary Care Provider Active Start: August 08, 2024 End: August 08, 2024 Stacie Chen NP, NP-C Attending Provider Active Start: August 08, 2024 End: August 08, 2024 Team Status: Active Member Role/Relationship Status Dates Dr. Сергей Espinoza MD Primary Care Provider Active Start: September 13, 2024 JEREMIAH Quiroz Attending Provider Active Start: September 13, 2024 Team Status: Active Member Role/Relationship Status Dates Dr. Сергей Espinoza MD Primary Care Provider Active Start: September 14, 2024 Anais DELGADO MD Attending Provider Active Start: September 14, 2024 Goals (unrecognized section and content) Goals may be documented in a n alternate sectionGoals may be documented in an alternate sectionGoals may be documented in an alternate sectionGoals may be documented in an alternate sectionGoals may be documented in an alternate sectionGoals may be documented in an [...] BE BASED ON THE PRIMARY CLINICAL RECORDS. [facility]. provides no warranty or guarantee of the accuracy or completeness of information in this document.
[2024-10-06 09:24] LABS: Vitamin B12 571 pg/mL (180-914)
[2024-10-06 09:26] LABS: FOLATES,SERUM (FOLIC ACID) 5.34 ng/mL (4.60-34.80)
== END ==
LOC: OLS.WHLEAS 04:00
PROVIDERS: PCP Internal Medicine; Referring Provider Internal Medicine; Visit Provider Internal Medicine
DX: D50.9 Iron deficiency anemia, unspecified (principal)
CPT/HCPCS: 36415; 82607; 82746

== ENCOUNTER → 2024-10-18 04:00 | Outpatient (REF) | payer MEDICARE, MEDICAID, SELFPAY ==
--- OUTSIDE RECORDS SUMMARY | 2024-10-18 03:53 | XMS RPT_ITS | CCD ---
Author Organization [facility] CliniSyri Care Team Providers Care Outpatient Facility Physical Therapist Name Role Phone Olga Сергей BAILEY Primary Care Provider [phone] UNKNOWN, UNKNOWN Primary Care Unavailable Clutter, Tommy Referring Unavailable Clutter, Tommy Attending Unavailable Unknown, Unknown Unavailable Unavailable Unavailable Unavailable Сергей Espinoza MD Primary Care Provider [phone] OLGA, СЕРГЕЙ A Referring Unavailable OLGA, СЕРГЕЙ [...] Olga Сергей BAILEY Primary Care Provider [phone] Brayden Friend MD Unavailable OLGA, СЕРГЕЙ A [...] Unavailable OLGA, СЕРГЕЙ A Primary Care Unavailable [place] MD, Dr. Rushing Primary Care Provider Gustavo CREW CHIEF-C, Stacie Attending Provider Shi BAILEY, Dr. Manzo Attending Provider [phone] Anais Osullivan MD Attending Provider Unavaila ble [place]ick[place] CREW CHIEF-C, Stacie Attending Provider [phone] Olga BAILEY, Dr. Rushing Primary Care Provider Gustavo CREW CHIEF-C, Stacie Attending Provider Olga BAILEY, Dr. Rushing Primary Care Provider Shi BAILEY, Dr. Manzo Attending Provider [phone] Tj Rosado Attending Provider Anais Osullivan MD Attending Provider Unavaila ble Tickcarrie CREW CHIEF-C, Stacie Attending Provider Olga BAILEY, Dr. Rushing Primary Care Provider Gustavo CREW CHIEF-C, Stacie Attending Provider [phone] Dr. Сергей Espinoza MD Primary Care Provider Shi BAILEY, Dr. Manzo Attending Provider [phone] Gustavo CREW CHIEF-C, Stacie Referring Provider [phone] Anais Osullivan MD Referring Provider Unavaila ble [place], Сергей Primary Care Unavailable Jose Raul Page Attending Unavailabl e [place], Сергей Primary Care Unavailable [place] OLS, Stacie Attending Unavailable [place], Сергей Primary Care Unavailable Oleghe, Efewongbe Attending Unavailable Oleghe, Efewongbe Attending Unavailable Olga, Сергей Primary Care Unavailable Olga, Сергей Primary Care Unavailable [place] OLS, Stacie Referring Unavailable [place] OLS, Stacie Attending Unavailable [place], Сергей Primary Care Unavailable Oleghe OLS, Efewongbe Attending Unavailabl e Oleghe OLS, Efewongbe Attending Unavailabl e Olga, Сергей Primary Care Unavailable [place], Сергей Primary Care Unavailable [place] OLS, Stacie Attending Unavailable [place] CREW CHIEF, Stacie Attending Unavailable [place], Сергей Primary Care Unavailable [place] CREW CHIEF, Stacie Attending Unavailable Olga, Сергей Primary Care Unavailable [place] CREW CHIEF, Stacie Attending Unavailable [place], Сергей Primary Care Unavailable [place] CREW CHIEF, Stacie Attending Unavailable Olga, Сергей Primary Care Unavailable [place], Сергей Primary Care Unavailable Tj Rosado Attending Unavailable [place], Сергей Primary Care Unavailable [place] CREW CHIEF, Stacie Attending Unavailable Olga, Сергей Primary Care Unavailable Oleghe, Efewongbe Attending Unavailable Olga, Сергей Primary Care Unavailable [place] CREW CHIEF, Stacie Attending Unavailable Olga, Сергей Primary Care Unavailable Oleghe OLS, Efewongbe Attending Unavailabl e [place], Сергей Primary Care Unavailable Oleghe, Efewongbe Attending Unavailable Oleghe, Efewongbe Attending Unavailable [place], Сергей Primary Care Unavailable Olga, Сергей Primary Care Unavailable [place] CREW CHIEF, Stacie Attending Unavailable Olga, Сергей Primary Care Unavailable [place] CREW CHIEF, Stacie Attending Unavailable Oleghe OLS, Efewongbe Attending Unavailabl e Olga, Сергей Primary Care Unavailable Oleghe OLS, Efewongbe Attending Unavailabl e [place], Сергей Primary Care Unavailable Olga, Сергей Primary Care Unavailable Oleghe OLS, Efewongbe Attending Unavailabl e [place] CREW CHIEF, Stacie Attending Unavailable Olga, Сергей Primary Care Unavailable [place], Сергей Primary Care Unavailable [place] CREW CHIEF, Stacie Attending Unavailable Olga, Сергей Primary Care Unavailable [place] CREW CHIEF, Stacie Attending Unavailable [place], Сергей Primary Care Unavailable Anais Byrd Attending Anais Simmons Referring Anais Simmons Attending Сергей Scott Primary Care Unavailable Allergies Allergy Classification Reported Allergen(s) Allergy Type Date of Onset Reaction(s) Facility Angiotensin Converting Enzyme (JOYCE) Inhibitors (1 source) Lisinopril Drug Allergy 1 GI Upset [facility] Aspirin (1 source) Aspirin Drug Allergy 1 [facility] Doxycycline (1 source) Doxycycline Drug Allergy 3 GI Upset [facility] Work Phone: montelukast (1 source) montelukast Drug Allergy 8 Rash [facility] Work Phone: NSAIDs (1 source) Ibuprofen Drug Allergy 1 [facility] Penicillins (antibiotic) (1 source) Amoxicillin Drug Allergy 3 Intolerance [facility] rofecoxib (1 source) rofecoxib Drug Allergy 3 Itching [facility] Serotonin Reuptake Inhibitors (SSRIs) (1 source) Sertraline Drug Allergy 3 Diarrhea [facility] Sulfonamides (antibiotic) (1 source) Sulfonamides (Antibiotic) Drug Allergy 1 [facility] (20 sources) Aspirin; Translations: [Aspirin TABS] Drug Allergy 1 Tachycardia, PALPITATIONS [facility] (20 sources) Ibuprofen; Translations: [IBUPROFEN] Drug Allergy 1 Swelling [facility] (20 sources) Lisinopril; Translations: [LISINOPRIL] Drug Allergy 1 GI Upset [facility] (20 sources) montelukast; Translations: [MONTELUKAST SODIUM] Drug Allergy 8 [facility] Work Phone: (20 sources) rofecoxib; Translations: [ROFECOXIB] Drug Allergy 3 Itching [facility] (20 sources) Seasonal allergy; Translations: [SEASONAL ALLERGIES] Allergy to substance 1 Other: See Comments, Intolerance [facility] (20 sources) Sulfonamides (Antibiotic); Translations: [SULFA (SULFONAMIDE ANTIBIOTICS)] Propensity to adverse reactions 1 [facility] (20 sources) Doxycycline; Translations: [DOXYCYCLINE] Drug Allergy 3 GI Upset [facility] Work Phone: (20 sources) Amoxicillin; Translations: [AMOXICILLIN] Drug Allergy 3 Other: See Comments, Intolerance [facility] (20 sources) Sertraline; Translations: [SERTRALINE] Drug Allergy 3 Diarrhea [facility] (8 sources) montelukast Drug Allergy [address] [facility] (8 sources) Sulfonamides (Antibiotic) Allergy to substance 3 [facility] (1 source) Amoxicillin Drug Allergy [address] [facility] Repository (1 source) Aspirin Drug Allergy [address] [facility] (1 source) Doxycycline Drug Allergy [address] [facility] (1 source) Ibuprofen Drug Allergy [address] [facility] (1 source) Lisinopril Drug Allergy [address] [facility] (1 source) montelukast Drug Allergy [address] [facility] (1 source) rofecoxib Drug Allergy [address] [facility] (1 source) Sertraline Drug Allergy [address] [facility] (1 source) Sulfonamides (Antibiotic) Drug allergy (disorder) [address] [facility] Medications Current Medications Medication Drug [...] mg oral tablet (20 sources) Benzodiazepine Start: 5 take 1 tablet by mouth three times daily Alprazolam 1 mg tablet Active 1 mg PO THREE TIMES A DAY 90 30 0 September 30, 2024 9:41am October 29, 2024 12:00am anxiety Start: 08-01-2024 End: 09-28-2024 take 1 tablet by mouth three times daily Alprazolam 1 mg tablet Discontinued 1 mg PO THREE TIMES A DAY 90 30 0 August 29, 2024 11:14pm September 27, 2024 12:00am September 28, 2024 12:07am Start: 05-02-2024 End: 07-27-2024 take 1 tablet [...] PO THREE TIMES A DAY 90 30 March 31, 2024 4:28pm April 29, 2024 [...] tablet 11/30/2021 12/31/2021 Discontinued Start: 05-09-2021 End: 10-06-2022 take 1 tablet by mouth every twelve [...] 16, 2023. Take 1 tablet by wanda th three [...] on above: Take 2 tablets by mo [facility] once daily for 1 day, THEN 1 tablet once daily for 4 days. cloNIDine hydrochloride 0.1 mg oral tablet (20 sources) Central alpha-2 Adrenergic Agonist Start: 03-25-2023 cloNIDine HCl (CATAPRES) 0.1 mg tablet take 1 tablet twice daily 180 tablet 3 03/25/2023 Active Start: 01-14-2023 take 1 tablet by wanda three times daily Clonidine Hcl 0.1 mg tablet Active 0.1 mg PO THREE TIMES A DAY January 21, 2023 1:00am HTN Start: 08-22-2022 End: 01-14-2023 take 1 tablet by mouth twice daily cloNIDine HCl (CATAPRES) 0.1 mg tablet Take 1 tablet by mouth twice daily. 180 tablet 1 09/29/2022 01/14/2023 Discontinued Comment on above: Take 1 tablet by wanda twice daily. Take 1 tablet by wanda three times a day. take 1 tablet [...] metered dose inhaler (20 sources) Corticosteroid Start: 024 take 1 spray(s) nasal route once daily fluticasone (FLONASE) 50 mcg/actuation nasal spray Use 1 [place] in each nostril once daily. 48 g 3 07/09/2023 Active Start: 05-12-2023 End: 08-10-2023 take 1 puff(s) by inhalation once daily fluticasone furoate (ARNUITY ELLIPTA) 100 mcg/actuation inhaler Inhale 1 Puff as instructed once daily. 3 Each 4 05/12/2023 07/14/2023 Discontinued Start: 05-12-2023 End: 07-09-2023 take 1 spray(s) nasal route once daily fluticasone (FLONASE) 50 mcg/actuation nasal spray Use 1 [place] in each nostril once daily. 1 Each [...] (FLONASE) 50 mcg/actuation nasal spray Use 1 [place] in each nostril two times a day. [...] (FLONASE) 50 mcg/actuation nasal spray Use 1 [place] in each nostril daily at bedtime. 3 [...] 0 Active Comment on above: Use 1 [place] in each nostril daily at bedtime. Inhale 2 Puffs as in structed twice daily. Inhale by Mouth Inhale 1 Puff as ins tructed twice daily. Shake well before use. Rinse mouth after use. Use in the nose as n eeded (Pt uses 1 spray each nostril once a day as needed.). Use 1 [place] in each nostril two times a day. Inhale 1 Puff as ins tructed two times a day. Shake well before use. Rinse mouth after use. Inhale 1 Puff as ins tructed once daily. Use 1 [place] in each nostril once daily. Fluticasone Propionate (Flovent Hfa) 110 mcg/actuation HFA aerosol inhaler (8 sources) Start: 3 Fluticasone Propionate (Flovent Hfa) [...] above: Take 1 capsule by mo ut three times daily for 30 days. Take 1 capsule by mo ut three times daily for 180 days. Take 2 capsules by m out three times daily for 180 days. Inhalational Spacing Device (AEROCHAMBER) Spcr (20 sources) Start: 3 Inhalational Spacing Device (AEROCHAMBER) Spcr Indications: Asthma exacerbation , Bronchitis 1 Device as directed. 1 Inhaler 0 06/08/2012 Active Comment on above: 1 Device as directed . 200 actuat levalbuterol 0.045 mg/actuat metered dose inhaler (20 sources) beta2-Adrenergic Agonist Start: 3 End: take 1-2 puff(s) by inhalation every four [...] Comment on above: Take 1 capsule by [facility] daily at bedtime. TAKE 1 CAPSULE AT [...] Active Start: 01-21-2023 take 1 capsule by [facility] three times daily Pirfenidone (Pirfenidone 267 Mg [...] (20 sources) HMG-CoA Reductase Inhibitor Start: End: pravastatin (PRAVACHOL) 40 mg tablet take [...] 07/19/2020 06/06/2021 Discontinued take 1 capsule by [facility] every twenty-four hours Verapamil HCl ER 180 MG Oral Capsule Extended Release 24 Hour Quantity: 0 Refills: 0 Ordered: 09-Dec-2015 DO Active Comment on above: Take 1 tablet by [facility] daily at bedtime. Completed/Discontinued Medications Medication Drug [...] Umer WILSON, Tommy Start : 20-Apr-2022 Active [id number] 200 actuat albuterol 0.09 mg/actuat metered dose [...] on above: Take 1 capsule by mo [facility] three times daily as needed for cough [...] Comment on above: Take 1 tablet by [facility] once daily. cephalexin 500 mg oral capsule (8 sources) Cephalosporin Antibacterial Start: 01-10-20 End: 01-22-20 [...] on above: Take 1 capsule by mo [facility] twice daily. escitalopram 5 mg oral tablet (15 sources) Serotonin Reuptake Inhibitor Start: 3 End: 3 take 1 tablet by mouth once daily escitalopram oxalate (LEXAPRO) 5 mg tablet Take 1 tablet by mouth once daily. 30 tablet 1 11/17/2022 01/19/2023 Discontinued Comment on above: Take 1 tablet by [facility] once daily. esomeprazole 40 mg delayed release [...] on above: Take 1 capsule by mo [facility] daily before breakfast. Take 1 capsule by mo [facility] twice daily before meals. 10 ml lidocaine [...] Start: 06-12-2016 take 2 tablets by mo [facility] once daily predniSONE 20 MG Oral Tablet [...] x 3 days Take 2 tablets by mo ut once daily for 7 days. Take 4 tablets by mo [facility] once daily for 3 days, THEN 3 tablets once daily for 3 days, THEN 2 tablets once daily for 3 days, THEN 1 tablet once daily for 3 days. pregabalin 50 mg oral capsule (4 sources) Start: End: 4 take 1 capsule by mouth twice daily pregabalin (LYRICA) 50 mg capsule Indications: Post herpetic neuralgia Take 1 capsule by mouth two times a day for 30 days. 60 capsule 0 02/27/2023 04/23/2023 Discontinued Comment on above: Take 1 capsule by mo [facility] two times a day for 30 days. sertraline 25 mg oral tablet (1 source) Serotonin Reuptake Inhibitor Start: 3 End: 3 take 1 tablet by mouth once daily sertraline (ZOLOFT) 25 mg tablet Indications: Anxiety Take 1 tablet by mouth once daily. 90 tablet 0 11/12/2022 11/17/2022 Discontinued (Side Effects) Comment on above: Take 1 tablet by wanda once daily. simvastatin 40 mg oral tablet [...] Complications of surgical procedures or medical care (8 sources) Drug therapy finding; Translations: [Unspecified adverse effect of drug or medicament, initial encounter] 01-29-2023 Episodic Deficiency and other anemia (1 source) Anemia; Translations: [Anemia, unspecified] 07-10-2023 Episodic Deficiency and other anemia (1 source) Iron deficiency anemia, unspecified; Translations: [Iron deficiency anemia, unspecified] Onset: 10-11-2024 Episodic Disorders of lipid metabolism (20 sources) [...] Chronic Other lower respiratory disease (2 sources) Fibrosis of lung; Translations: [Pulmonary fibrosis, unspecified] 10-04-2024 Chronic Other lower respiratory disease (2 sources) [...] unspecified] Onset: 05-22-2016 Chronic Urinary tract infections (10 sources) Urinary tract infectious disease; Translations: [Urinary [...] Test Name Value Interpretation Reference Range Facility Folate [Mass/volume] in Seru m or PlasmaOrdered By: Anais Osullivan on 10-06-2024 Folate [Mass/Vol] 5.34 ng/mL 4.60-34.[address] [facility] Vitamin B12 ser/plasOrdered By: Anais Osullivan on 10-06-2024 Cobalamin (Vitamin B12) [Mass/Vol] 571 pg/mL 180-[address] [facility] Bilirubin Test strip Ql (U)O rdered By: Stacie Chen on 10-03-2024 Bilirubin Ql (U) Negative Negative [facility] Ketones Test strip Ql (U)Ord ered By: Stacie Chen on 10-03-2024 Ketones Ql (U) Negative Negative [facility] Nitrite Test strip Ql (U)Ord ered By: Stacie Chen on 10-03-2024 Nitrite Ql (U) Negative Negative [facility] Protein Test strip Ql (U)Ord ered By: Stacie Chen on 10-03-2024 Protein Ql (U) 30 mg/dl High Negative [facility] Urine clarityOrdered By: Prashanth Chen on 10-03-2024 Clarity (U) Sl. Cloudy Clear [facility] Urine color determinationOrd ered By: Stacie Chen on 10-03-2024 Color (U) Yellow Yellow [facility] Urine cultureOrdered By: Prashanth Chen on 10-03-2024 Bacteria identified Cx Nom (U) Proteus mirabilis Abnormal [facility] Urine glucose detectionOrder ed By: Stacie Chen on 10-03-2024 Glucose Ql (U) Normal mg/dl Normal [facility] Urine leukocyte esterase det ection by dipstickOrdered By: Stacie Chen on 10-03-2024 Leukocyte esterase Test strip Ql (U) 500 /ul High Negative [facility] Urine pHOrdered By: Stacie Chen on 10-03-2024 pH (U) 6.5 [pH] 5.0 - 8.[address] [facility] Urine specific gravity measu rementOrdered By: Stacie Chen on 10-03-2024 Specific gravity (U) [Rel density] 1.010 1.002-1.[address] [facility] Urine urobilinogen measureme ntOrdered By: Stacie Chen on 10-03-2024 Urobilinogen Ql (U) Normal mg/dl Normal [facility] Iron measurement (mass/mass) Ordered By: Anais Osullivan on 09-14-2024 Iron (Unsp spec) [Mass/Mass] 48 ug/dL Low 50-[address] [facility] No Panel InformationOrdered By: Anais Osullivan on 09-14-2024 Unsaturated Iron Binding Capacity 164 ug/dL Low 228-[address] [facility] Serum or plasma ferritin ibis surement (mass/volume)Ordered By: Anais Osullivan on 09-14-2024 Ferritin [Mass/Vol] 71 ng/mL 22-378 [facility] Serum or plasma iron saturat ion measurement (mass fraction)Ordered By: Anais Osullivan on 09-14-2024 Iron saturation [Mass fraction] 22.6 % 13-[address] [facility] Comment on above: Previous reported re sult: 23.0 %Edited by: KOJO on 09/14/24:0905 TransferrinOrdered By: Davon Osullivan on 09-14-2024 Transferrin [Mass/Vol] 172 mg/dL 149-313 [facility] Comment on above: Performed at: [place] [id number] Director: Parveen Carias PhD, Phone: [phone] Absolute lymphocyte countOrd ered By: Stacie Chen on 09-13-2024 Lymphocytes Auto (Unsp spec) [#/Vol] 1.67 10*3/uL 0.83-4.[address] [facility] Absolute neutrophil countOrd ered By: Stacie Chen on 09-13-2024 Neutrophils (Bld) [#/Vol] 3.6 10*3/uL 2.0-7.[address] [facility] Anion gap in Serum or Plasma Ordered By: Stacie Chen on 09-13-2024 Anion gap [Moles/Vol] 7 mmol/L 5-15 [facility] Automated lymphocyte count a s percentage of total leukocytesOrdered By: Stacie Chen on 09-13-2024 Lymphocytes/100 WBC Auto (Unsp spec) 25.2 % 19-[address] [facility] BUN/creatinine ratioOrdered By: Stacie Chen on 09-13-2024 Urea nitrogen/Creatinine [Mass ratio] 17.9 mg/mg 10-[address] [facility] Basophil percentageOrdered B y: Stacie Chen on 09-13-2024 Basophils/100 WBC (Bld) 0.8 % 0-1 [facility] Carbon dioxide, total [Moles /volume] in Central venous bloodOrdered By: Stacie Chen on 09-13-2024 CO2 [Moles/Vol] 31.9 mmol/L 21.0-32.[address] [facility] Chloride assayOrdered By: Richard Chen on 09-13-2024 Chloride [Moles/Vol] 102 mmol/L 98-108 [facility] Eosinophil percentageOrdered By: Stacie Chen on 09-13-2024 Eosinophils/100 WBC (Bld) 9.5 % High 0-[address] [facility] Erythrocyte distribution wid th ratioOrdered By: Stacie Chen on 09-13-2024 Erythrocyte distribution width (RBC) [Ratio] 12.8 % 11.6-14.[address] [facility] Erythrocyte distribution wid th standard deviationOrdered By: Stacie Chen on 09-13-2024 Erythrocyte distribution width (RBC) [Ratio] 47.5 fl High 35.1-43.[address] [facility] Glomerular filtration rate ( GFR) estimation/1.73 sq m using serum, plasma, or whole bOrdered By: Stacie Chen on 09-13-2024 GFR/1.73 sq M.predicted among non-blacks MDRD (S/P/Bld) [Vol rate/Area] 90 mL/min/{1.73_m2} >[address] [facility] Comment on above: mL/min/1.73m2 CKD-EP I Creatinine Equation (2020) Hematocrit Auto (Bld) [Volum e fraction]Ordered By: Stacie Chen on 09-13-2024 Hematocrit (Bld) [Volume fraction] 27.4 % Low 37-[address] [facility] Hemoglobin measurementOrdere d By: Stacie Chen on 09-13-2024 Hemoglobin (Bld) [Mass/Vol] 8.5 g/dL Low 12.0-15.[address] [facility] Immature granulocytes/100 WB C Auto (Bld)Ordered By: Stacie Chen on 09-13-2024 Immature granulocytes/100 WBC (Bld) 0.200 % 0.0-0.[address] [facility] Comment on above: IG% - Immature Granu locytes (promyelocytes, myelocytes and metamyelocytes) > 1% indicates that a LEFT SHIFT is Present. MCV (mean corpuscular volume ) determinationOrdered By: Stacie Chen on 09-13-2024 MCV (RBC) [Entitic vol] 101.9 fL High 81-99 [facility] Mean corpuscular hemoglobin (MCH) determinationOrdered By: Stacie Chen on 09-13-2024 MCH (RBC) [Entitic mass] 31.6 pg 27.0-32.[address] [facility] Mean corpuscular hemoglobin concentration (MCHC) determinationOrdered By: Stacie Chen on 09-13-2024 MCHC (RBC) [Mass/Vol] 31.0 g/dL Low 32-36 [facility] Mean platelet volume determi nationOrdered By: Stacie Chen on 09-13-2024 Platelet mean volume (Bld) [Entitic vol] 9.4 fL 6.2-12.[address] [facility] Monocyte percentageOrdered B y: Stacie Chen on 09-13-2024 Monocytes/100 WBC (Bld) 10.1 % High 0-10 [facility] Neutrophil percentageOrdered By: Stacie Chen on 09-13-2024 Neutrophils/100 WBC (Bld) 54.2 % 47-[address] [facility] Nucleated red blood cell per centageOrdered By: Stacie Chen on 09-13-2024 Nucleated RBC/100 WBC (Bld) [Ratio] 0 % 0-[address] [facility] Platelet countOrdered By: Richard Chen on 09-13-2024 Platelets (Bld) [#/Vol] 210 10*3/uL 150-[address] [facility] Potassium measurement (mass/ volume)Ordered By: Stacie Chen on 09-13-2024 Potassium (Unsp spec) [Mass/Vol] 4.2 mmol/L 3.3-5.[address] [facility] RBC Auto (Bld) [#/Vol]Ordere d By: Stacie Chen on 09-13-2024 RBC (Bld) [#/Vol] 2.69 10*6/uL Low 4.2-5.4 [facility] Serum creatinine measurement (mass/volume)Ordered By: Stacie Chen on 09-13-2024 Creatinine [Mass/Vol] 0.57 mg/dL Low 0.70-1.20 [facility] Serum glucose measurement (m ass/volume)Ordered By: Stacie Chen on 09-13-2024 Glucose [Mass/Vol] 94 mg/dL 70-99 [facility] Serum or plasma calcium bipin urement (mass/volume)Ordered By: Stacie Chen on 09-13-2024 Calcium [Mass/Vol] 8.9 mg/dL 7.6-11.0 [facility] Serum or plasma urea nitroge n measurement (mass/volume)Ordered By: Stacie Chen on 09-13-2024 Urea nitrogen [Mass/Vol] 10 mg/dL 4-[address] [facility] Sodium levelOrdered By: Carla Chen on 09-13-2024 Sodium [Moles/Vol] 141 mmol/L 133-145 [facility] White blood cell (WBC) count Ordered By: Stacie Chen on 09-13-2024 WBC (Bld) [#/Vol] 6.6 10*3/uL 4.4-11.0 [facility] Bilirubin directOrdered By: Anais Osullivan on 07-19-2024 Bilirubin.direct [Mass/Vol] 0.08 mg/dL 0.00-0.[address] [facility] Bilirubin, totalOrdered By: Anais Osullivan on 07-19-2024 Bilirubin [Mass/Vol] 0.18 mg/dL 0.00-1.30 [facility] - Chemistry and C hemistry - challengeOrdered By: Anais Osullivan on 07-19-2024 AST [Catalytic activity/Vol] 18 U/L <[address] [facility] Serum globulin measurementOr dered By: Anais Osullivan on 07-19-2024 Globulin (S) [Mass/Vol] 3.5 g/dL 2.2-4.2 [facility] Serum or plasma alanine hart otransferase (ALT) measurementOrdered By: Anais Osullivan on 07-19-2024 ALT [Catalytic activity/Vol] U/L <[address] [facility] Serum or plasma albumin bipin urement (mass/volume)Ordered By: Anais Osullivan on 07-19-2024 Albumin [Mass/Vol] 3.3 g/dL Low 3.4-4.8 [facility] Serum or plasma alkaline roni sphatase measurementOrdered By: Anais Osullivan on 07-19-2024 ALP [Catalytic activity/Vol] 69 U/L 35-[address] [facility] TSH DL <= 0.005 mIU/L QnOrde red By: Anais Osullivan on 07-19-2024 TSH Qn 3.540 uIU/mL 0.300-4.[address] [facility] Total proteinOrdered By: Davidkenan Osullivan on 07-19-2024 Protein [Mass/Vol] 6.8 g/dL 5.9-8.4 [facility] Absolute lymphocyte countOrd ered By: Stacie Chen on 05-17-2024 Lymphocytes Auto (Unsp spec) [#/Vol] 1.58 10*3/uL 0.83-4.[address] [facility] Absolute neutrophil countOrd ered By: Stacie Chen on 05-17-2024 Neutrophils (Bld) [#/Vol] 3.3 10*3/uL 2.0-7.[address] [facility] Anion gap in Serum or Plasma Ordered By: Stacie Chen on 05-17-2024 Anion gap [Moles/Vol] 8 mmol/L 5-15 [facility] Automated lymphocyte count a s percentage of total leukocytesOrdered By: Stacie Chen on 05-17-2024 Lymphocytes/100 WBC Auto (Unsp spec) 25.3 % 19-[address] [facility] BUN/creatinine ratioOrdered By: Stacie Chen on 05-17-2024 Urea nitrogen/Creatinine [Mass ratio] 16.6 mg/mg 10-[address] [facility] Basophil percentageOrdered B y: Stacie Chen on 05-17-2024 Basophils/100 WBC (Bld) 0.8 % 0-1 [facility] Carbon dioxide, total [Moles /volume] in Central venous bloodOrdered By: Stacie Chen on 05-17-2024 CO2 [Moles/Vol] 30.7 mmol/L 21.0-32.[address] [facility] Chloride assayOrdered By: Richard Chen on 05-17-2024 Chloride [Moles/Vol] 99 mmol/L 98-108 [facility] Eosinophil percentageOrdered By: Stacie Chen on 05-17-2024 Eosinophils/100 WBC (Bld) 11.4 % High 0-[address] [facility] Erythrocyte distribution wid th (RBC) [Ratio]Ordered By: Stacie Chen on 05-17-2024 Erythrocyte distribution width (RBC) [Entitic vol] 46.8 fL High 35.1-43.[address] [facility] Erythrocyte distribution wid th ratioOrdered By: Stacie Chen on 05-17-2024 Erythrocyte distribution width (RBC) [Ratio] 13.2 % 11.6-14.[address] [facility] Erythrocyte distribution wid th standard deviationOrdered By: Stacie Chen on 05-17-2024 Erythrocyte distribution width (RBC) [Ratio] 46.8 fl High 35.1-43.[address] [facility] GFR/1.73 sq M.predicted juanjose g non-blacks MDRD (S/P/Bld) [Vol rate/Area]Ordered By: Stacie Chen on 05-17-2024 Estimated GFR (MDRD) Non-Af Amer 91 >[address] [facility] Comment on above: mL/min/1.73m2 CKD-EP I Creatinine Equation (2020) Glomerular filtration rate ( GFR) estimation/1.73 sq m using serum, plasma, or whole bOrdered By: Stacie Chen on 05-17-2024 GFR/1.73 sq M.predicted among non-blacks MDRD (S/P/Bld) [Vol rate/Area] 91 mL/min/{1.73_m2} >[address] [facility] Comment on above: mL/min/1.73m2 CKD-EP I Creatinine Equation (2020) Hematocrit Auto (Bld) [Volum e fraction]Ordered By: Stacie Chen on 05-17-2024 Hematocrit (Bld) [Volume fraction] 29.3 % Low 37-[address] [facility] Hemoglobin measurementOrdere d By: Stacie Chen on 05-17-2024 Hemoglobin (Bld) [Mass/Vol] 9.1 g/dL Low 12.0-15.[address] [facility] Immature granulocytes/100 WB C Auto (Bld)Ordered By: Stacie Chen on 05-17-2024 Immature granulocytes/100 WBC (Bld) 0.200 % 0.0-0.[address] [facility] Comment on above: IG% - Immature Granu locytes (promyelocytes, myelocytes and metamyelocytes) > 1% indicates that a LEFT SHIFT is Present. Lymphocytes Auto (Unsp spec) [#/Vol]Ordered By: Stacie Chen on 05-17-2024 Lymphocytes (Bld) [#/Vol] 1.58 10*3/uL 0.83-4.[address] [facility] Lymphocytes/100 WBC Auto (Un sp spec)Ordered By: Stacie Chen on 05-17-2024 Lymphocytes/100 WBC (Bld) 25.3 % 19-[address] [facility] MCV (mean corpuscular volume ) determinationOrdered By: Stacie Chen on 05-17-2024 MCV (RBC) [Entitic vol] 98.3 fL 81-99 [facility] Mean corpuscular hemoglobin (MCH) determinationOrdered By: Stacie Chen on 05-17-2024 MCH (RBC) [Entitic mass] 30.5 pg 27.0-32.[address] [facility] Mean corpuscular hemoglobin concentration (MCHC) determinationOrdered By: Stacie Chen on 05-17-2024 MCHC (RBC) [Mass/Vol] 31.1 g/dL Low 32-36 [facility] Mean platelet volume determi nationOrdered By: Stacie Chen on 05-17-2024 Platelet mean volume (Bld) [Entitic vol] 9.2 fL 6.2-12.[address] [facility] Monocyte percentageOrdered B y: Stacie Chen on 05-17-2024 Monocytes/100 WBC (Bld) 9.6 % 0-10 [facility] Neutrophil percentageOrdered By: Stacie Chen on 05-17-2024 Neutrophils/100 WBC (Bld) 52.7 % 47-[address] [facility] Nucleated red blood cell per centageOrdered By: Stacie Chen on 05-17-2024 Nucleated RBC/100 WBC (Bld) [Ratio] 0 % 0-[address] [facility] Platelet countOrdered By: Richard Chen on 05-17-2024 Platelets (Bld) [#/Vol] 215 10*3/uL 150-[address] [facility] Potassium (Unsp spec) [Mass/ Vol]Ordered By: Stacie Chen on 05-17-2024 Potassium [Moles/Vol] 4.2 mmol/L 3.3-5.1 [facility] Potassium measurement (mass/ volume)Ordered By: Stacie Chen on 05-17-2024 Potassium (Unsp spec) [Mass/Vol] 4.2 mmol/L 3.3-5.[address] [facility] RBC Auto (Bld) [#/Vol]Ordere d By: Stacie Chen on 05-17-2024 RBC (Bld) [#/Vol] 2.98 10*6/uL Low 4.2-5.4 [facility] Serum creatinine measurement (mass/volume)Ordered By: Stacie Chen on 05-17-2024 Creatinine [Mass/Vol] 0.56 mg/dL Low 0.70-1.20 [facility] Serum glucose measurement (m ass/volume)Ordered By: Stacie Chen on 05-17-2024 Glucose [Mass/Vol] 96 mg/dL 70-99 [facility] Serum or plasma calcium bipin urement (mass/volume)Ordered By: Stacie Chen on 05-17-2024 Calcium [Mass/Vol] 9.3 mg/dL 7.6-11.0 [facility] Serum or plasma urea nitroge n measurement (mass/volume)Ordered By: Stacie Chen on 05-17-2024 Urea nitrogen [Mass/Vol] 9 mg/dL 4-[address] [facility] Sodium levelOrdered By: Carla Chen on 05-17-2024 Sodium [Moles/Vol] 138 mmol/L 133-145 [facility] White blood cell (WBC) count Ordered By: Stacie Chen on 05-17-2024 WBC (Bld) [#/Vol] 6.3 10*3/uL 4.4-11.0 [facility] L. pneumophila Ag Ql (U)Orde red By: Anais Osullivan on 04-23-2024 Legionella Antigen [facility] Urine Legionella pneumophila antigen detectionOrdered By: Anais Osullivan on 04-23-2024 L. pneumophila Ag Ql (U) [facility] Bilirubin directOrdered By: Anais Osullivan on 04-19-2024 Bilirubin.direct [Mass/Vol] 0.09 mg/dL 0.00-0.[address] [facility] Bilirubin, totalOrdered By: Anais Osullivan on 04-19-2024 Bilirubin [Mass/Vol] 0.20 mg/dL 0.20-1.00 [facility] Comment on above: For patients on eltr ombopag therapy, use of Dimension [place] TBIL is not recommended. Laboratory - Chemistry and C hemistry - challengeOrdered By: Anais Osullivan on 04-19-2024 AST [Catalytic activity/Vol] 19 U/L 15-[address] [facility] Serum globulin measurementOr dered By: Anais Osullivan on 04-19-2024 Globulin (S) [Mass/Vol] 4.0 g/dL 2.2-4.2 [facility] Serum or plasma alanine hart otransferase (ALT) measurementOrdered By: Anais Osullivan on 04-19-2024 ALT [Catalytic activity/Vol] 12 U/L Low 13-[address] [facility] Serum or plasma albumin bipin urement (mass/volume)Ordered By: Anais Osullivan on 04-19-2024 Albumin [Mass/Vol] 2.9 g/dL Low 3.2-5.0 [facility] Serum or plasma alkaline roni sphatase measurementOrdered By: Anais Osullivan on 04-19-2024 ALP [Catalytic activity/Vol] 78 U/L 45-[address] [facility] Serum or plasma thyroid stim ulating hormone (TSH) measurement (units/volume)Ordered By: Anais Osullivan on 04-19-2024 TSH Qn 3.220 uIU/mL 0.358-3.[address] [facility] TSH QnOrdered By: Anais Osullivan on 04-19-2024 Thyroid Stimulating Hormone (TSH) 3.220 uIU/mL 0.358-3.[address] [facility] Total proteinOrdered By: David Osullivan on 04-19-2024 Protein [Mass/Vol] 6.9 g/dL 6.4-8.2 [facility] Absolute lymphocyte countOrd ered By: Anais Osullivan on 04-07-2024 Lymphocytes Auto (Unsp spec) [#/Vol] 1.52 10*3/uL 0.83-4.[address] [facility] Absolute neutrophil countOrd ered By: Anais Osullivan on 04-07-2024 Neutrophils (Bld) [#/Vol] 2.6 10*3/uL 2.0-7.[address] [facility] Automated lymphocyte count a s percentage of total leukocytesOrdered By: Karlestherluizatim Rameyjoneskenan on 04-07-2024 Lymphocytes/100 WBC Auto (Unsp spec) 27.2 % 19-[address] [facility] Basophil percentageOrdered B y: Anais Osullivan on 04-07-2024 Basophils/100 WBC (Bld) 1.3 % High 0-1 [facility] Eosinophil percentageOrdered By: shaquille Magallonkenan on 04-07-2024 Eosinophils/100 WBC (Bld) 14.5 % High 0-[address] [facility] Erythrocyte distribution wid th (RBC) [Ratio]Ordered By: Schuylerportertim Rameyjoneskenan on 04-07-2024 Erythrocyte distribution width (RBC) [Entitic vol] 47.1 fL High 35.1-43.[address] [facility] Erythrocyte distribution wid th ratioOrdered By: estherportertim Magallonkenan on 04-07-2024 Erythrocyte distribution width (RBC) [Ratio] 12.6 % 11.6-14.[address] [facility] Erythrocyte distribution wid th standard deviationOrdered By: Anais Magallonkenan on 04-07-2024 Erythrocyte distribution width (RBC) [Ratio] 47.1 fl High 35.1-43.[address] [facility] Folic acid measurementOrdere d By: Karlshaquille Rameyjoneskenan on 04-07-2024 Folate 5.30 ng/mL 3.1-55.[address] [facility] Hematocrit Auto (Bld) [Volum e fraction]Ordered By: Karlestherluizatim Rameyjoneskenan on 04-07-2024 Hematocrit (Bld) [Volume fraction] 28.3 % Low 37-[address] [facility] Hemoglobin measurementOrdere d By: Sruthitim Naunkenan on 04-07-2024 Hemoglobin (Bld) [Mass/Vol] 8.6 g/dL Low 12.0-15.[address] [facility] Immature granulocytes/100 WB C Auto (Bld)Ordered By: Anais Osullivan on 04-07-2024 Immature granulocytes/100 WBC (Bld) 0.200 % 0.0-0.[address] [facility] Comment on above: IG% - Immature Granu locytes (promyelocytes, myelocytes and metamyelocytes) > 1% indicates that a LEFT SHIFT is Present. Lymphocytes Auto (Unsp spec) [#/Vol]Ordered By: [facility] on 04-07-2024 Lymphocytes (Bld) [#/Vol] 1.52 10*3/uL 0.83-4.[address] [facility] Lymphocytes/100 WBC Auto (Un sp spec)Ordered By: estherportertim Osullivan on 04-07-2024 Lymphocytes/100 WBC (Bld) 27.2 % 19-[address] [facility] MCV (mean corpuscular volume ) determinationOrdered By: shaquille Osullivan on 04-07-2024 MCV (RBC) [Entitic vol] 101.1 fL High 81-99 [facility] Mean corpuscular hemoglobin (MCH) determinationOrdered By: estherportertim Osullivan on 04-07-2024 MCH (RBC) [Entitic mass] 30.7 pg 27.0-32.[address] [facility] Mean corpuscular hemoglobin concentration (MCHC) determinationOrdered By: [facility] on 04-07-2024 MCHC (RBC) [Mass/Vol] 30.4 g/dL Low 32-36 [facility] Mean platelet volume determi nationOrdered By: estherportertim Osullivan on 04-07-2024 Platelet mean volume (Bld) [Entitic vol] 9.7 fL 6.2-12.[address] [facility] Monocyte percentageOrdered B y: [facility] Rameykenan on 04-07-2024 Monocytes/100 WBC (Bld) 10.4 % High 0-10 [facility] Neutrophil percentageOrdered By: [facility] on 04-07-2024 Neutrophils/100 WBC (Bld) 46.4 % Low 47-[address] [facility] Nucleated red blood cell per centageOrdered By: estherportertim Osullivan on 04-07-2024 Nucleated RBC/100 WBC (Bld) [Ratio] 0 % 0-[address] [facility] Platelet countOrdered By: Karl Osullivan on 04-07-2024 Platelets (Bld) [#/Vol] 199 10*3/uL 150-[address] [facility] RBC Auto (Bld) [#/Vol]Ordere d By: Anais Osullivan on 04-07-2024 RBC (Bld) [#/Vol] 2.80 10*6/uL Low 4.2-5.4 [facility] Vitamin B12 measurementOrder ed By: Anais Tanvirtaryn on 04-07-2024 Cobalamin (Vitamin B12) [Mass/Vol] 407 pg/mL 211-[address] [facility] White blood cell (WBC) count Ordered By: Anais Tanvirtaryn on 04-07-2024 WBC (Bld) [#/Vol] 5.6 10*3/uL 4.4-11.0 [facility] 01-25-2024 [facility] Telephone ([facility]) MERNA WEBSTER ([id number]) 1940 F NFR Date Time Provider Department 01/25/24 SONA GRIER [facility] During your visit today, we recorded the following information about you: Lorene Jauregui LPN 01/25/2024 8:30 AM Signed Fax received from [facility] requesting sleep study and office visit notes supporting use of cpap. Sleep study from 2016 as well as office visit notes from 11/28/22 and 09/25/23 faxed to [facility] at [phone]. Transmission successful, paperwork in fax drawer. Indigo Decker, RN 04/18/2024 1:53 PM Signed Spoke to Sona from [facility]. Asking for recent ABG and PFT's for [...] (FLONASE) 50 mcg/actuation nasal spray Use 1 [place] in each nostril once daily. - gabapentin [...] [M16.10] 09/04/2005 Pes anserinus tendinitis or bursitis [[id number]] 09/04/2005 07/22/2017 PLANTAR FIBROMATOSIS [M72.2] 09/04/2005 Backache, unspecified [M54.9] 09/24/2005 04/23/2017 Thoracic or lumbosacral neuritis or radiculitis*09/24/2005 07/22/2017 Pathologic fracture of vertebrae [M84.48XA] 10/13/2005 07/22/2017 Osteoporosis [M81.0] more content not included)... Normal [facility] MERNA WEBSTER ([id number]) 1940 F NFR Date Time Provider Department 12/31/23 SONA GRIER [facility] During your visit today, we recorded the following information about you: Elisabeth Barber MA 12/31/2023 3:23 PM Signed Fax received from [facility] for orders for Oxygen Concentrator and Supplies. E1390,E1392,A4615,A4616 . Dx's J84.11,J96.11, J45.30 AND G47.33. Placed in Dr. Grier's office to be signed. Elisabeth Barber MA 01/01/2024 5:25 PM Signed Forms faxed back to [facility]. Transmission with forms in drawer. Allergies As [...] (FLONASE) 50 mcg/actuation nasal spray Use 1 [place] in each nostril once daily. - gabapentin [...] [M16.10] 09/04/2005 Pes anserinus tendinitis or bursitis [[id number]] 09/04/2005 07/22/2017 PLANTAR FIBROMATOSIS [M72.2] 09/04/2005 Backache, [...] (HCC) [K55.9 (more content not included)... Normal [facility] Emergency Department Summary on 11-30-2023 Emergency Department Summary [facility] Medical Records Department [address] [place] [address] Emergency Department Summary 11/30/23 MR#: [id number] Acct: [id number] Name: MERNA WEBSTER Rep #: [id number] : 1940 83 From: Jose Raul Page [...] intact Psych: Cooperative, appropriate mood and affect [facility] Medical History Anxiety GERD (gastroesophageal reflux disease) [...] 99 94 Oxygen Delivery Method Room Air [facility] MDM MDM Narrative Medical decision making narrative: [...] Discharge Kath (more content not included)... [facility] ([facility] ) MERNA WEBSTER ([id number]) 1940 F NFR Date Time Provider Department 09/25/23 3:00 PM MOUNA VUONG [facility] During your visit today, we recorded the following information about you: Pulse Blood pressure Weight 79/minute 167/86 60.3 kg Ofelia Cruz APRN.MARINE ELECTRICIAN HELPER 09/26/2023 7:45 AM Attested Attestation signed by Mouna Vuong APRN.CNP at 09/26/2023 7:45 AM Attending Note I have personally performed a face to face assessment of the patient and have reviewed the PA/TELEPHONE MESSENGER note. Agree with plan as stated BRANDON [...] reports doing well. She moved into a prison with her at the beginning of June [...] PRESCRIPTION Please (more content not included)... 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: : 1940 Requested By: Order Number: [id number] Reading MD: Fatuma Schroeder MD Interpretive Statements [...] 15:43:25 EDT by Fatuma Schroeder MD ID: [id number] Name: MERNA WEBSTER Race: White Ht: 62.60 in Wt: 132.94 lbs Age: 83 Gender: Female : 1940 Dx: Idiopathic interstitial pulmonary disease_ Smoking Hx: Non-smoker Doctor: SONA GRIER Test Date: 09/25/2023 Site: B Tech: Zayra Moon PRE-BRONCH POST-BRONCH Pre LLN Pred ULN %Pred Post %Pred %Chg SPIROMETRY FVC (L) 1.33 1.63 2.37 3.14 55 FEV1 (L) 1.17 1.21 1.80 2.35 64 FEV1/FVC 0.88 0.64 0.78 0.89 112 PEF L/s (L/sec) 5.59 2.70 4.34 5.98 128 FEF50 (L/sec) 2.91 1.08 2.69 4.30 108 FIF50 (L/sec) 2.85 FEF50/FIF50 1.02 90-100 FIVC (L) 1.22 AMA09-23 (L/sec) 2.41 0.59 1.44 2.75 167 Time [...] standards for DLCO met.//SRB PULMONARY FUNCTION LAB [facility] SPIROMETRY WITH DILATOR IF O BSTRUCTEDon 09-25-2023 DLCO (ml/min/mmHg) 7.98 ml/min/mmHg [facility] DLCO/VA (ml/min/mmHg/L) 4.18 ml/m in/mmHg/ L [facility] ERV BOX (L) 0.22 L [facility] DTU38-65% PRE (L/S) 2.41 L/S [facility] FEV1 PRE (L) 1.17 L [facility] FEV1/FVC PRE (%) 88 % [facility] FRC Box (L) 1.50 L [facility] FVC PRE (L) 1.33 L [facility] IC BOX (L) 0.95 L [facility] PEF PRE (L/S) 5.59 L/S [facility] RV Box (L) 1.29 L [facility] RV/TLC Box (%) 52 % [facility] TLC Box (L) 2.45 L [facility] VA (L) 2.38 L [facility] VC (L) BOX 1.22 L [facility] CT CHEST WO IVCONon 09-18-[address] CHEST WO IVCON * * *Final Report* * * DATE OF EXAM: Sep 18 2023 2:41PM [facility] 0541 - CT CHEST WO [...] pattern and distribution are compatible with UIP. Senior Svp: YURIDIA Transcribe Date/Time: Sep 24 2023 8:39A Dictated by : MIGUEL ROJO MD This examination was interpreted and the report reviewed and electronically signed by: MIGUEL ROJO MD on Sep 24 2023 12:05PM EST [id number] Normal [facility] CNPNon 09-15-2023 [facility] Telephone ([facility]) MERNA WEBSTER ([id number]) 1940 F NFR Date Time Provider Department 09/15/23 SONA GRIER [facility] During your visit today, we recorded the following information about you: Norma Mckeon RN 09/15/2023 7:45 AM Signed Patient returning call from office Please advise Lorene Jauregui LPN 09/15/2023 7:50 AM Signed No messages in chart from this office that patient was called recently. Looks like she has an appt for a scan in [place] this Thursday, may have been reminder call? [...] (FLONASE) 50 mcg/actuation nasal spray Use 1 [place] in each nostril once daily. - gabapentin [...] [M16.10] 09/04/2005 Pes anserinus tendinitis or bursitis [[id number]] 09/04/2005 07/22/2017 PLANTAR FIBROMATOSIS [M72.2] 09/04/2005 Backache, [...] 04/23/2017 Colonic (more content not included)... Normal [facility] CNPChristina 08-17-2023 CNPN Telephone ([facility]) MERNA WEBSTER ([id number]) 1940 F NFR Date Time Provider Department 08/17/23 SONA GRIER [facility] During your visit today, we recorded the following information about you: Lorene Jauregui LPN 08/17/2023 10:46 AM Signed Fax received from [employer] for refills for esbriet through [email or web address] patient [employer]. Form placed on dr grier's desk for review/signature. Elisabeth Barber MA 08/26/2023 11:50 AM Signed Form faxed back to [employer]. Transmission with forms in drawer. Allergies As [...] (FLONASE) 50 mcg/actuation nasal spray Use 1 [place] in each nostril once daily. - gabapentin [...] [M16.10] 09/04/2005 Pes anserinus tendinitis or bursitis [[id number]] 09/04/2005 07/22/2017 PLANTAR FIBROMATOSIS [M72.2] 09/04/2005 Backache, [...] 06/02/2012 04/23/2017 (more content not included)... Normal [facility] CNPNon 07-22-2023 [facility] Telephone ([facility]) JAMILMERNA ([id number]) 1940 F NFR Date Time Provider Department 07/22/23 СЕРГЕЙ [facility] During your visit today, we recorded the following information about you: Callie Taylor MA 07/22/2023 1:54 PM Signed Type of letter/form/fax request - Forms Form received from [facility] Placed on MD desk () for completion. Completed form needs to be faxed to [phone]. Route to [place] when form completed for processing Сергей Espinoza MD 07/23/2023 1:05 PM Signed Forms completed. In outbox. Thanks MD Claudia El Sandra, MA 07/23/2023 2:52 PM Signed Request completed and faxed. Trudi Jordan 07/23/2023 4:14 PM Signed Char from [facility] is calling back and states that they did not receive the faxed form. Char asking to have the form faxed again. Char will be out of the office tomorrow. If you need to reach office, please contact Brinda Jim @ [phone] Callie Tayolr MA 07/23/2023 4:27 PM Signed Re-faxed with [...] Assessed Reason for Visit: Forms [Other] Cmt: [facility] agency on aging on disabilities Prescriptions [...] (FLONASE) 50 mcg/actuation nasal spray Use 1 [place] in each nostril once daily. - gabapentin [...] [M16.10] 09/04/2005 Pes anserinus tendinitis or bursitis [[id number]] 09/04/2005 07/22/2017 PLANTAR FIBROMATOSIS [M72.2] 09/04/2005 Backache, unspecified [M54.9] 0 (more content not included)... Normal [facility] Jamie 07-15-2023 [facility] Telephone ([facility]) MERNA WEBSTER ([id number]) 1940 F NFR Date Time Provider Department 07/15/23 NEUROLOGY PROVIDER DEANDRE During your visit today, we recorded the following information about you: Rachel George 07/16/2023 11:37 AM Signed Referral source: Brayden Murdock MD ([facility]) Reason for visit: chronic migraine evaluation External [...] Records [3576] Cmt: External referral to [facility] Prescriptions as of 07/16/2023 - nortriptyline (PAMELOR) [...] (FLONASE) 50 mcg/actuation nasal spray Use 1 [place] in each nostril once daily. - gabapentin [...] [M16.10] 09/04/2005 Pes anserinus tendinitis or bursitis [[id number]] 09/04/2005 07/22/2017 PLANTAR FIBROMATOSIS [M72.2] 09/04/2005 Backache, [...] 04/23/2017 Colonic (more content not included)... Normal [facility] CBC W Auto Differential pane l (Bld)on 07-14-2023 Basophils (Bld) [#/Vol] 0.06 10*3/uL Normal <0.11 [facility] Comment on above: Order Comment: Speci men Type: URINE SPECIMEN Ordering Facility: [facility] Address: [address] [place] [address] Performed By: #### 2 695-5 #### [facility] CLIA [id number] [address] [place] [address] [place] [address] [place] Basophils/100 WBC (Bld) 0.8 % Normal C [facility] Comment on above: Order Comment: Speci men Type: URINE SPECIMEN Ordering Facility: [facility] Address: [address] [place] [address] Performed By: #### 2 695-5 #### [facility] CLIA [id number] [address] [place] [address] [place] Differential cell count method Nom (Bld) Auto Normal [facility] Comment on above: Order Comment: Speci men Type: URINE SPECIMEN Ordering Facility: [facility] Address: [address] [place] [address] Performed By: #### 2 695-5 #### [facility] CLIA [id number] [address] [place] [address] [place] Eosinophils (Bld) [#/Vol] 0.38 10*3/uL Normal <0.46 [facility] Comment on above: Order Comment: Speci men Type: URINE SPECIMEN Ordering Facility: [facility] Address: [address] [place] [address] Performed By: #### 2 695-5 #### [facility] CLIA [id number] [address] [place] [address] [place] Eosinophils/100 WBC (Bld) 5.1 % Normal [facility] Comment on above: Order Comment: Speci men Type: URINE SPECIMEN [facility]ing Facility: [facility] Address: [address] [place] [address] Performed By: #### 2 695-5 #### [facility] CLIA [id number] [address] [place] [address] [place] Erythrocyte distribution width (RBC) [Ratio] 12.3 % Normal 11.5-15.0 [facility] Comment on above: Order Comment: Speci men Type: URINE SPECIMEN [facility] Facility: [facility] Address: [address] [place] [address] Performed By: #### 2 695-5 #### [facility] CLIA [id number] [address] [place] [address] [place] Hematocrit (Bld) [Volume fraction] 35.2 % Low 36.0-46.0 [facility] Comment on above: Order Comment: Speci men Type: URINE SPECIMEN [facility] Facility: [facility] Address: [address] [place] [address] Performed By: #### 2 695-5 #### [facility] CLIA [id number] [address] [place] [address] [place] Hemoglobin (Bld) [Mass/Vol] 11.1 g/dL Low 11.5-15.5 [facility] Comment on above: Order Comment: Speci men Type: URINE SPECIMEN [facility] Facility: [facility] Address: [address] [place] [address] Performed By: #### 2 695-5 #### [facility] CLIA [id number] [address] [place] [address] [place] Immature granulocytes (Bld) [#/Vol] 0.03 10*3/uL Normal <0.10 [facility] Comment on above: Order Comment: Speci men Type: URINE SPECIMEN [facility] Facility: [facility] Address: [address] [place] [address] Performed By: #### 2 695-5 #### [facility] CLIA [id number] [address] [place] [address] [place] Immature granulocytes/100 WBC (Bld) 0.4 % Normal [facility] Comment on above: Order Comment: Speci men Type: URINE SPECIMEN [facility] Facility: [facility] Address: [address] [place] [address] Performed By: #### 2 695-5 #### [facility] CLIA [id number] [address] [place] [address] [place] Lymphocytes (Bld) [#/Vol] 1.40 10*3/uL Normal 1.00-4.00 [facility] Comment on above: Order Comment: Speci men Type: URINE SPECIMEN [facility] Facility: [facility] Address: [address] [place] [address] Performed By: #### 2 695-5 #### [facility] CLIA [id number] [address] [place] [address] [place] Lymphocytes/100 WBC (Bld) 18.8 % Normal [facility] Comment on above: Order Comment: Speci men Type: URINE SPECIMEN [facility] Facility: [facility] Address: [address] [place] [address] Performed By: #### 2 695-5 #### [facility] CLIA [id number] [address] [place] [address] [place] MCH (RBC) [Entitic mass] 32.4 pg Normal 26.0-34.0 [facility] Comment on above: Order Comment: Speci men Type: URINE SPECIMEN [facility] Facility: [facility] Address: [address] [place] [address] Performed By: #### 2 695-5 #### [facility] CLIA [id number] [address] [place] [address] [place] MCHC (RBC) [Mass/Vol] 31.5 g/dL Normal 30.5-36.0 [facility] Comment on above: Order Comment: Speci men Type: URINE SPECIMEN [facility]ing Facility: [facility] Address: [address] [place] [address] Performed By: #### 2 695-5 #### [facility] CLIA [id number] [address] [place] [address] [place] MCV (RBC) [Entitic vol] 102.6 fL High 80.0-100.0 [facility] Comment on above: Order Comment: Speci men Type: URINE SPECIMEN [facility]ing Facility: [facility] Address: [address] [place] [address] Performed By: #### 2 695-5 #### [facility] CLIA [id number] [address] [place] [address] [place] Monocytes (Bld) [#/Vol] 0.80 10*3/uL Normal <0.87 [facility] Comment on above: Order Comment: Speci men Type: URINE SPECIMEN [facility] Facility: [facility] Address: [address] [place] [address] Performed By: #### 2 695-5 #### [facility] CLIA [id number] [address] [place] [address] [place] Monocytes/100 WBC (Bld) 10.7 % Normal [facility] Comment on above: Order Comment: Speci men Type: URINE SPECIMEN [facility] Facility: [facility] Address: [address] [place] [address] Performed By: #### 2 695-5 #### [facility] CLIA [id number] [address] [place] [address] [place] Neutrophils (Bld) [#/Vol] 4.78 10*3/uL Normal 1.45-7.50 [facility] Comment on above: Order Comment: Speci men Type: URINE SPECIMEN [facility] Facility: [facility] Address: [address] [place] [address] Performed By: #### 2 695-5 #### [facility] CLIA [id number] [address] [place] [address] [place] Neutrophils/100 WBC (Bld) 64.2 % Normal [facility] Comment on above: Order Comment: Speci men Type: URINE SPECIMEN [facility]ing Facility: [facility] Address: [address] [place] [address] Performed By: #### 2 695-5 #### [facility] CLIA [id number] [address] [place] [address] [place] Nucleated RBC (Bld) [#/Vol] 10*3/uL Normal <0.01 [facility] Comment on above: Order Comment: Speci men Type: URINE SPECIMEN [facility]ing Facility: [facility] Address: [address] [place] [address] Performed By: #### 2 695-5 #### [facility] CLIA [id number] [address] [place] [address] [place] Nucleated RBC/100 WBC (Bld) [Ratio] 0.0 /100 WBC Normal [facility] Comment on above: Order Comment: Speci men Type: URINE SPECIMEN [facility] Facility: [facility] Address: [address] [place] [address] Performed By: #### 2 695-5 #### [facility] CLIA [id number] [address] [place] [address] [place] Platelet mean volume (Bld) [Entitic vol] 9.6 fL Normal 9.0-12.7 [facility] Comment on above: Order Comment: Speci men Type: URINE SPECIMEN [facility]ing Facility: [facility] Address: [address] [place] [address] Performed By: #### 2 695-5 #### [facility] CLIA [id number] [address] [place] [address] [place] Platelets (Bld) [#/Vol] 235 10*3/uL Normal 150-400 [facility] Comment on above: Order Comment: Speci men Type: URINE SPECIMEN [facility] Facility: [facility] Address: [address] [place] [address] Performed By: #### 2 695-5 #### [facility] CLIA [id number] [address] [place] [address] [place] RBC (Bld) [#/Vol] 3.43 10*6/uL Low 3.90-5.20 [facility] Comment on above: Order Comment: Speci men Type: URINE SPECIMEN [facility] Facility: [facility] Address: [address] [place] [address] Performed By: #### 2 695-5 #### [facility] CLIA [id number] [address] [place] [address] [place] WBC (Bld) [#/Vol] 7.45 10*3/uL Normal 3.70-11.00 [facility] Comment on above: Order Comment: Speci men Type: URINE SPECIMEN [facility] Facility: [facility] Address: [address] [place] [address] Performed By: #### 2 695-5 #### [facility] CLIA [id number] [address] [place] [address] [place] Folate SerPl-mCncon 07-14-19 Folate [Mass/Vol] 19.2 ng/mL Normal >4.7 [facility] Comment on above: Order Comment: Speci men Type: BLOOD SPECIMENOrdering Facility: [facility] Address: [address] [place] [address] Performed By: #### 2 284-8 ####[facility] [id number] [place] [address] [place] Osmolality SerPlon Osmolality [Osmolality] 288 mosm/kg Normal 275-300 [facility] Comment on above: Order Comment: Speci men Type: URINE SPECIMEN [facility]ing Facility: [facility] Address: [address] [place] [address] Performed By: #### 2 695-5 #### [facility] CLIA [id number] [address] [place] [address] [place] Osmolality Uron 07-14-2023 Osmolality (U) [Osmolality] 331 mosm/kg Normal 50-1200 [facility] Comment on above: Order Comment: Speci men Type: URINE SPECIMEN [facility]ing Facility: [facility] Address: [address] [place] [address] Performed By: #### 2 695-5 #### [facility] CLIA [id number] [address] [place] [address] [place] Retics #on 07-14-2023 Reticulocytes (Bld) [#/Vol] 0.40415 10*3/uL Normal 0.018-0.100 [facility] Comment on above: Order Comment: Speci men Type: BLOOD SPECIMENOrdering Facility: [facility] Address: [address] [place] [address] Performed By: #### 5 7021-8, 23409-5 ####[facility] [id number] [place] [address] [place] Reticulocytes (Bld) [#/Vol]o n 07-14-2023 Reticulocytes/100 RBC (Bld) 1.5 % Normal 0.4-2.0 [facility] Comment on above: Order Comment: Speci men Type: BLOOD SPECIMENOrdering Facility: [facility] Address: [address] [place] [address] Performed By: #### 5 7021-8, 72323-2 ####[facility] [id number] [place] [address] [place] Sodium ?Tm Ur-sCncon 024 Sodium Unsp time (U) [Moles/Vol] 72 mmol/L Normal 14-216 [facility] Comment on above: Order Comment: Speci men Type: URINE SPECIMEN [facility] Facility: [facility] Address: [address] [place] [address] Performed By: #### 3 5678-2 #### [facility] CLIA [id number] [address] [place] [address] [place] Urinalysis complete panel (U )on 07-14-2023 Bacteria LM.HPF (Urine sed) [#/Area] Negative Normal Negative [facility] Comment on above: Order Comment: Speci men Type: URINE SPECIMENOrdering Facility: [facility] Address: [address] [place] [address] Performed By: #### 2 4356-8 ####[facility] [id number] [place] [address] [place] Bilirubin Ql (U) Negative Normal Negative [facility] Comment on above: Order Comment: Speci men Type: URINE SPECIMENOrdering Facility: [facility] Address: [address] [place] [address] Performed By: #### 2 4356-8 ####[facility] [id number] [place] [address] [place] Clarity (Unsp spec) Clear Normal Clear [facility] Comment on above: Order Comment: Speci men Type: URINE SPECIMENOrdering Facility: [facility] Address: [address] [place] [address] Performed By: #### 2 4356-8 ####[facility] [id number] [place] [address] [place] Color (U) Yellow Normal Yellow [facility] Comment on above: Order Comment: Speci men Type: URINE SPECIMENOrdering Facility: [facility] Address: [address] [place] [address] Performed By: #### 2 4356-8 ####[facility] [id number] [place] [address] [place] Epithelial cells LM.HPF (Urine sed) [#/Area] None Seen Normal [facility] Comment on above: Order Comment: Speci men Type: URINE SPECIMENOrdering Facility: [facility] Address: [address] [place] [address] Performed By: #### 2 4356-8 ####[facility] [id number] [place] [address] [place] Glucose Test strip (U) [Mass/Vol] Trace Abnormal Negative [facility] Comment on above: Order Comment: Speci men Type: URINE SPECIMENOrdering Facility: [facility] Address: [address] [place] [address] Performed By: #### 2 4356-8 ####[facility] [id number] [place] [address] [place] Hemoglobin Ql (U) Negative Normal Negative [facility] Comment on above: Order Comment: Speci men Type: URINE SPECIMENOrdering Facility: [facility] Address: [address] [place] [address] Performed By: #### 2 4356-8 ####[facility] [id number] [place] [address] [place] Hyaline casts (Urine sed) [#/Area] 0 /[LPF] Normal 0 /LPF [facility] Comment on above: Order Comment: Speci men Type: URINE SPECIMENOrdering Facility: [facility] Address: [address] [place] [address] Performed By: #### 2 4356-8 ####[facility] [id number] [place] [address] [place] Ketones Ql (U) Negative Normal Negative [facility] Comment on above: Order Comment: Speci men Type: URINE SPECIMENOrdering Facility: [facility] Address: [address] [place] [address] Performed By: #### 2 4356-8 ####[facility] [id number] [place] [address] [place] Leukocyte esterase Test strip Ql (U) Negative Normal Negative [facility] Comment on above: Order Comment: Speci men Type: URINE SPECIMENOrdering Facility: [facility] Address: [address] [place] [address] Performed By: #### 2 4356-8 ####[facility] [id number] [place] [address] [place] Nitrite Ql (U) Negative Normal Negative [facility] Comment on above: Order Comment: Speci men Type: URINE SPECIMENOrdering Facility: [facility] Address: [address] [place] [address] Performed By: #### 2 4356-8 ####[facility] [id number] [place] [address] [place] pH (U) 6.5 [pH] Normal <8.5 [facility] Comment on above: Order Comment: Speci men Type: URINE SPECIMENOrdering Facility: [facility] Address: [address] [place] [address] Performed By: #### 2 4356-8 ####[facility] [id number] [place] [address] [place] Protein (U) [Mass/Vol] Negative Normal Negative [facility] Comment on above: Order Comment: Speci men Type: URINE SPECIMENOrdering Facility: [facility] Address: [address] [place] [address] Performed By: #### 2 4356-8 ####[facility] [id number] [place] [address] [place] RBC LM.HPF (Urine sed) [#/Area] 0-2 /HPF Normal 0-2 /HPF [facility] Comment on above: Order Comment: Speci men Type: URINE SPECIMENOrdering Facility: [facility] Address: [address] [place] [address] Performed By: #### 2 4356-8 ####[facility] [id number] [place] [address] [place] Specific gravity (U) [Rel density] 1.013 Normal 1.005-1.030 [facility] Comment on above: Order Comment: Speci men Type: URINE SPECIMENOrdering Facility: [facility] Address: [address] [place] [address] Performed By: #### 2 4356-8 ####[facility] [id number] [place] [address] [place] Urobilinogen Ql (U) 0.2 EU/dL Normal 0.2-1.0 EU/dL [facility] Comment on above: Order Comment: Speci men Type: URINE SPECIMENOrdering Facility: [facility] Address: [address] [place] [address] Performed By: #### 2 4356-8 ####[facility] [id number] [place] [address] [place] WBC LM.HPF (Urine sed) [#/Area] 0-5 /HPF Normal 0-5 /HPF [facility] Comment on above: Order Comment: Speci men Type: URINE SPECIMENOrdering Facility: [facility] Address: [address] [place] [address] Performed By: #### 2 4356-8 ####[facility] [id number] [address] [place] [facility]NPChristina [facility] MERNA WEBSTER ([id number]) 1940 F NFR Date Time Provider Department [...] recheck her sodium. Thanks, MD Louisa El Jacqueline RN 07/10/2023 2:14 PM Signed Spoke with [...] [D64.9] Order(s):SODIUM RANDOM URINE [SQUNAR] Order #: [id number] FUTURE OSMOLALITY URINE [SQUOSM] Order #: [id number] FUTURE OSMOLALITY [SQOSM] Order #: [id number] FUTURE COMPLETE BLOOD COUNT AND DIFFERENTIAL [SQCBCDIF] Order #: [id number] FUTURE RETICULOCYTE COUNT [SQRETIC] Order #: [id number] FUTURE FOLATE, SERUM [SQSERFOL] Order #: [id number] FUTURE Prescriptions as of 07/10/2023 - ALPRAZolam (XANAX) 1 mg tablet Take 1 tablet by mouth three times a day as needed for sedation or anxiety for up to 30 days. - levothyroxine (SYNTHROID) 75 mcg tablet Take 0.5 tablets by mouth once daily. - fluticasone (FLONASE) 50 mcg/actuation nasal spray Use 1 [place] in each nostril once daily. - gabapentin [...] 09/04/2005 Primary (more content not included)... Normal [facility] CBC panel Auto (Bld)on 07-08 Erythrocyte distribution width (RBC) [Ratio] 12.6 % 11.5 - 15.0 % [facility] Hematocrit (Bld) [Volume fraction] 35.6 % Low 36.0 - 46.0 % [facility] Hemoglobin (Bld) [Mass/Vol] 11.1 g/dL Low 11.5 - 15.5 g/dL [facility] Interpretation and review of laboratory results Abnormal [facility] MCH (RBC) [Entitic mass] 32.6 pg 26.0 - 34.0 pg [facility] MCHC (RBC) [Mass/Vol] 31.2 g/dL 30.5 - 36.0 g/dL [facility] MCV (RBC) [Entitic vol] 104.4 fL High 80.0 - 100.0 fL [facility] Nucleated RBC (Bld) [#/Vol] NINF [facility] Platelet mean volume (Bld) [Entitic vol] 9.5 fL 9.0 - 12.7 fL [facility] Platelets (Bld) [#/Vol] 269 10*3/uL [facility] RBC (Bld) [#/Vol] 3.41 10*6/uL Low 3.90 - 5.2 0 m/uL [facility] WBC (Bld) [#/Vol] 7.86 10*3/uL [facility] Erythrocyte distribution width (RBC) [Ratio] 12.6 % Normal 11.5-15.0 [facility] Comment on above: Order Comment: Speci men Type: URINE SPECIMEN [facility] Address: [address] [place] [address] Performed By: #### 2 695-5 #### [facility] CLIA [id number] [address] [place] [address] [place] Hematocrit (Bld) [Volume fraction] 35.6 % Low 36.0-46.0 [facility] Comment on above: Order Comment: Speci men Type: URINE SPECIMEN [facility] Address: [address] [place] [address] Performed By: #### 2 695-5 #### [facility] CLIA [id number] [address] [place] [address] [place] Hemoglobin (Bld) [Mass/Vol] 11.1 g/dL Low 11.5-15.5 [facility] Comment on above: Order Comment: Speci men Type: URINE SPECIMEN [facility] Address: [address] [place] [address] Performed By: #### 2 695-5 #### [facility] CLIA [id number] [address] [place] [address] [place] MCH (RBC) [Entitic mass] 32.6 pg Normal 26.0-34.0 [facility] Comment on above: Order Comment: Speci men Type: URINE SPECIMEN [facility] Address: [address] [place] [address] Performed By: #### 2 695-5 #### [facility] CLIA [id number] [address] [place] [address] [place] MCHC (RBC) [Mass/Vol] 31.2 g/dL Normal 30.5-36.0 [facility] Comment on above: Order Comment: Speci men Type: URINE SPECIMEN [facility] Address: [address] [place] [address] Performed By: #### 2 695-5 #### [facility] CLIA [id number] [address] [place] [address] [place] MCV (RBC) [Entitic vol] 104.4 fL High 80.0-100.0 [facility] Comment on above: Order Comment: Speci men Type: URINE SPECIMEN [facility] Address: [address] [place] [address] Performed By: #### 2 695-5 #### [facility] CLIA [id number] [address] [place] [address] [place] Nucleated RBC (Bld) [#/Vol] 10*3/uL Normal <0.01 [facility] Comment on above: Order Comment: Speci men Type: URINE SPECIMEN [facility] Address: [address] [place] [address] Performed By: #### 2 695-5 #### [facility] CLIA [id number] [address] [place] [address] [place] Platelet mean volume (Bld) [Entitic vol] 9.5 fL Normal 9.0-12.7 [facility] Comment on above: Order Comment: Speci men Type: URINE SPECIMEN [facility] Address: [address] [place] [address] Performed By: #### 2 695-5 #### [facility] CLIA [id number] [address] [place] [address] [place] Platelets (Bld) [#/Vol] 269 10*3/uL Normal 150-400 [facility] Comment on above: Order Comment: Speci men Type: URINE SPECIMEN [facility] Address: [address] [place] [address] Performed By: #### 2 695-5 #### [facility] CLIA [id number] [address] [place] [address] [place] RBC (Bld) [#/Vol] 3.41 10*6/uL Low 3.90-5.20 [facility] Comment on above: Order Comment: Speci men Type: URINE SPECIMEN [facility] Address: [facility] [place] [address] Performed By: #### 2 695-5 #### [facility] CLIA [id number] [address] [place] [address] [place] WBC (Bld) [#/Vol] 7.86 10*3/uL Normal 3.70-11.00 [facility] Comment on above: Order Comment: Speci men Type: URINE SPECIMEN [facility] Address: [address] [place] [address] Performed By: #### 2 695-5 #### [facility] CLIA [id number] [address] [place] [address] [place] CNOVon 07-09-2023 CNOV Office Visit (IMMDNA ) MERNA WEBSTER ([id number]) 1940 F NFR Date Time Provider Department [...] MA 07/09/2023 8:07 AM Signed [facility] OFFICE BUILDING LAB TEST INFORMATION [facility] BUILDING LAB HOURS: Lab is open: 7:30am to 5:00pm - , 7:30am to 4:00pm on Thu and 8am -12pm on Thu. The lab is located in [facility] on the first floor. There is a registration window at the lab, available 7 am to 3 pm Thursday - Thursday. If registration is unavailable at the lab, you may register at the patient registration office near the front lobby of the hospital. SCHEDULING A LAB APPOINTMENT: Laboratory appointments are recommended.Walk ins are still accepted. Call [phone] or schedule via [facility] scheduling ticket. ROUTINE LAB ORDERS 60 days [...] REFILL REQUESTS Request prescription refills through your [facility] account or contact your Pharmacy. My Chart Schedule My Appointment enables you to view your established primary care provider's open schedule and book an appointment online in real-time. This feature is available in internal medicine, family medicine, or pediatrics at any of our [facility] locations and main campus. Сергей Espinoza MD 07/09/2023 10:15 AM Signed ESTABLISHED PATIENT Merna Webster is a 83 year old female presenting for Group Home Evaluation HISTORY OF PRESENT ILLNESS Patient is moving in to [facility]. Happy to be moving in with her as they have been apart for over 1 year. Going to pain medicine in [place]. Has arthritis in the right hip. Has [...] Allergies: ALLERGIES (more content not included)... Normal [facility] metabolic 2000 panelon 07-09-2023 Albumin [Mass/Vol] 3.8 g/dL Low 3.9 - 4.9 g/dL [facility] ALP [Catalytic activity/Vol] 90 U/L 34 - 123 U/L [facility] ALT [Catalytic activity/Vol] 11 U/L 7 - 38 U/L [facility] Anion gap [Moles/Vol] 7 mmol/L Low 9 - 18 mmol/L [facility] AST [Catalytic activity/Vol] 28 U/L 13 - 35 U/L [facility] Bilirubin [Mass/Vol] mg/dL Low 0.2 - 1 .3 mg/dL [facility] Calcium [Mass/Vol] 9.1 mg/dL 8.5 - 10. 2 mg/dL [facility] Chloride [Moles/Vol] 95 mmol/L Low 97 - 10 5 mmol/L [facility] CO2 [Moles/Vol] 31 mmol/L High 22 - 30 mmol/L [facility] Creatinine [Mass/Vol] 0.60 mg/dL 0.58 - 0.96 mg/dL [facility] GFR/1.73 sq M.predicted among non-blacks MDRD (S/P/Bld) [Vol rate/Area] 90 mL/min/{1.73_m2} - PINF [facility] Comment on above: Estimated Glomerular Filtration [...] 108 mg/dL High 74 - 99 mg/dL [facility] Comment on above: The [place] Diabete s Association (ADA) provides guidance for [...] Standards of Medical Care in Diabetes 2016, [place] Diabetes Association. Diabetes Care. 2016.39(Suppl 1). Interpretation and review of laboratory results Abnormal [facility] Potassium [Moles/Vol] 4.5 mmol/L 3.7 - 5.1 mmol/L [facility] Protein [Mass/Vol] 6.9 g/dL 6.3 - 8.0 g/dL [facility] Sodium [Moles/Vol] 133 mmol/L Low 136 - 144 mmol/L [facility] Urea nitrogen [Mass/Vol] 12 mg/dL 7 - 21 mg/dL [facility] Albumin [Mass/Vol] 3.8 g/dL Low 3.9-4.9 [facility] Comment on above: Order Comment: Speci men Type: BLOOD SPECIMENOrdering Facility: [facility] Address: [address] [place] [address] Performed By: #### L IPNF, 16883-1 ####[facility] LABORATORYCLIA [id number] [place] [address] [place] ALP [Catalytic activity/Vol] 90 U/L Normal 34-123 [facility] Comment on above: Order Comment: Speci men Type: BLOOD SPECIMENOrdering Facility: [facility] Address: [address] [place] [address] Performed By: #### L IPNF, 37431-7 ####[facility] LABORATORYCLIA [id number] [place] [address] [place] ALT [Catalytic activity/Vol] 11 U/L Normal 7-38 [facility] Comment on above: Order Comment: Speci men Type: BLOOD SPECIMENOrdering Facility: [facility] Address: [address] [place] [address] Performed By: #### L IPNF, 32995-2 ####[facility] LABORATORYCLIA [id number] [place] [address] [place] Anion gap [Moles/Vol] 7 mmol/L Low 9-18 [facility] Comment on above: Order Comment: Speci men Type: BLOOD SPECIMENOrdering Facility: [facility] Address: [address] [place] [address] Performed By: #### L IPNF, 78258-1 ####[facility] LABORATORYCLIA [id number] [place] [address] [place] AST [Catalytic activity/Vol] 28 U/L Normal 13-35 [facility] Comment on above: Order Comment: Speci men Type: BLOOD SPECIMENOrdering Facility: [facility] Address: [address] [place] [address] Performed By: #### L IPNF, ####[facility]AL LABORATORYCLIA [id number] [place] [address] [place] Bilirubin [Mass/Vol] mg/dL Low 0.2-1.3 [facility] Comment on above: Order Comment: Speci men Type: BLOOD SPECIMENOrdering Facility: [facility] Address: [address] [place] [address] Performed By: #### L IPNF, ####[facility] LABORATORYCLIA [id number] [place] [address] [place] Calcium [Mass/Vol] 9.1 mg/dL Normal 8.5-10.2 [facility] Comment on above: Order Comment: Speci men Type: BLOOD SPECIMENOrdering Facility: [facility] Address: [address] [place] [address] Performed By: #### L IPNF, ####[facility] LABORATORYCLIA [id number] [place] [address] [place] Chloride [Moles/Vol] 95 mmol/L Low 97-105 [facility] Comment on above: Order Comment: Speci men Type: BLOOD SPECIMENOrdering Facility: [facility] Address: [address] [place] [address] Performed By: #### L IPNF, ####[facility] LABORATORYCLIA [id number] [place] [id number] [place] CO2 [Moles/Vol] 31 mmol/L High 22-30 [facility] Comment on above: Order Comment: Speci men Type: BLOOD SPECIMENOrdering Facility: [facility] Address: [address] [place] [address] Performed By: #### L IPNF, 68649-4 ####CH[facility]AL LABORATORYCLIA [id number] [place] [address] [place] [facility] Creatinine [Mass/Vol] 0.60 mg/dL Normal 0.58-0.96 [facility] Comment on above: Order Comment: Rj michel Type: BLOOD SPECIMENOrdering Facility: [facility] Address: [address] [place] [address] Performed By: #### L SAIMA, 50165-5 ####[facility] LABORATORYCLIA [id number] [address] Creatinine and Glomerular filtration rate.predicted panel (S/P/Bld) 90 mL/min/1.73m??? Normal >=60 [facility] Comment on above: Order Comment: Rj michel Type: BLOOD SPECIMENOrdering Facility: [facility] Address: [address] [place] [address] Result Comment: Arlen mated Glomerular Filtration Rate [...] reflect actual GFR. Performed By: #### L SAIMA, 74443-3 ####[facility] LABORATORYCLIA [id number] [address] [place] Glucose [Mass/Vol] 108 mg/dL High 74-99 [facility] Comment on above: Order Comment: Rj michel Type: BLOOD SPECIMENOrdering Facility: [facility] Address: [address] [place] [address] Result Comment: The [place] Diabetes Association (ADA) provides guidance for cutoff [...] Standards of Medical Care in Diabetes 2016, [place] Diabetes Association. Diabetes Care. 2016.39(Suppl 1). Performed By: #### L IPNF, 25347-0 ####[facility] LABORATORYCLIA [id number] [place] [address] [place] Potassium [Moles/Vol] 4.5 mmol/L Normal 3.7-5.1 [facility] Comment on above: Order Comment: Speci men Type: BLOOD SPECIMENOrdering Facility: [facility] Address: [address] [place] [address] Performed By: #### L IPNF, 28728-3 ####[facility] LABORATORYCLIA [id number] [address] [place] Protein [Mass/Vol] 6.9 g/dL Normal 6.3-8.0 [facility] Comment on above: Order Comment: Niurkai anand Type: BLOOD SPECIMENOrdering Facility: [facility] Address: [address] [place] [address] Performed By: #### L IPNF, 52236-4 ####[facility]AL LABORATORYCLIA [id number] [address] [place] Sodium [Moles/Vol] 133 mmol/L Low 136-144 [facility] Comment on above: Order Comment: Niurkai anand Type: BLOOD SPECIMENOrdering Facility: [facility] Address: [address] [place] [address] Performed By: #### L IPNF, 86945-0 ####CH[facility]AL LABORATORYCLIA [id number] [place] [address] [place] Urea nitrogen [Mass/Vol] 12 mg/dL Normal 7-21 [facility] Comment on above: Order Comment: Niurkai men Type: BLOOD SPECIMENOrdering Facility: [facility] Address: [address] [place] [address] Performed By: #### L IPNF, 76624-8 ####[facility]AL LABORATORYCLIA [id number] [place] [address] [place] LIPID PANEL, NONFASTINGon Cholesterol [Mass/Vol] 176 mg/dL NINF - 200 mg/dL [facility] Comment on above: <200 mg/dL, Desirabl e 200-239 mg/dL, Borderline high >239 mg/dL, High HDL Cholesterol, Nonfasting 64 mg/dL 39 - PINF mg/dL [facility] Comment on above: 40-59 mg/dL, Accepta ble >59 mg/dL, High: Negative risk factor for coronary heart disease <40 mg/dL, Low: Positive risk factor for coronary heart disease Interpretation and review of laboratory results Normal [facility] LDL Cholesterol, Nonfasting 97 mg/dL NINF - 100 mg/dL [facility] Comment on above: <100 mg/dL, Optimal 100-129 mg/dL, Near optimal/above optimal 130-159 mg/dL, Borderline high 160-189 mg/dL, High >189 mg/dL, Very high Secondary prevention optimal LDL Cholesterol levels are recommended to be < 70 mg/dL LDL/HDL Ratio, Nonfasting 1.52 mg/dL NINF - 2.54 mg/dL [facility] Comment on above: Reference: 1. National Cholesterol Education Program ATP III Guideline At-A-Glance Quick Desk Reference: National Heart, Lung, and Blood [place]. National Institutes of Health. 2001: NIH Publication No. 01-3305. 2. An International Atherosclerosis Society position paper: global recommendations for the management of dyslipidemia: executive summary, Atherosclerosis. 2014: 232(2):410-413. Non HDL Cholesterol, Nonfasting 112 mg/dL NINF - 130 mg/dL [facility] Comment on above: <130 mg/dL, Optimal 130-159 mg/dL, Near optimal/above optimal 160-189 mg/dL, Borderline high 190-219 mg/dL, High >219 mg/dL, Very high Secondary prevention optimal non HDL Cholesterol levels are recommended to be <100 mg/dL Total Chol/HDL Ratio, Nonfasting 2.75 mg/dL NINF - 5.10 mg/dL [facility] Triglycerides, Nonfasting 73 mg/dL NINF - 150 mg/dL [facility] Comment on above: <150 mg/dL, Normal 150-199 mg/dL, Borderline high 200-499 mg/dL, High >499 mg/dL, Very high VLDL Cholesterol, Nonfasting 15 mg/dL NINF - 30 mg/dL [facility] Cholesterol [Mass/Vol] 176 mg/dL Normal <200 [facility] Comment on above: Order Comment: Speci men Type: BLOOD SPECIMENOrdering Facility: [facility] Address: [address] [place] [address] Result Comment: <200 mg/dL, Desirable 200-239 mg/dL, Borderline high >239 mg/dL, High Performed By: #### L IPNF, 80424-4 ####[facility]AL LABORATORYCLIA [id number] [address] HDL CHOLESTEROL, NF 64 mg/dL Normal >39 [facility] Comment on above: Order Comment: Niurkai men Type: BLOOD SPECIMENOrdering Facility: [facility] Address: [address] [place] [address] Result Comment: 40-5 9 mg/dL, Acceptable >59 mg/dL, High: Negative risk factor for coronary heart disease <40 mg/dL, Low: Positive risk factor for coronary heart disease Performed By: #### L IPNF, 26403-0 ####[facility] LABORATORYCLIA [id number] [address] OF [facility] LDL CHOLESTEROL, NF 97 mg/dL Normal <100 [facility] Comment on above: Order Comment: Rj men Type: BLOOD SPECIMENOrdering Facility: [facility] Address: [address] [place] [address] Result Comment: <100 mg/dL, Optimal 100-129 mg/dL, Near optimal/above optimal 130-159 mg/dL, Borderline high 160-189 mg/dL, High >189 mg/dL, Very high Secondary prevention optimal LDL Cholesterol levels are recommended to be < 70 mg/dL Performed By: #### L IPNF, 03270-4 ####[facility] LABORATORYCLIA [id number] [address] LDL/HDL RATIO, NF 1.52 mg/dL Normal <2.54 [facility] Comment on above: Order Comment: Speci men Type: BLOOD SPECIMENOrdering Facility: [facility] Address: [address] [place] [address] Result Comment: Refe rence: 1. National Cholesterol Education Program ATP III Guideline At-A-Glance Quick Desk Reference: National Heart, Lung, and Blood [place]. National Institutes of Health. 2001: NIH Publication No. 01-3305. 2. An International Atherosclerosis Society position paper: global recommendations for the management of dyslipidemia: executive summary, Atherosclerosis. 2014: 232(2):410-413. Performed By: #### L IPNF, 43402-5 ####[facility] LABORATORYCLIA [id number] [address] NON HDL CHOL, NF 112 mg/dL Normal <130 [facility] Comment on above: Order Comment: Rj michel Type: BLOOD SPECIMENOrdering Facility: [facility] Address: [address] [place] [address] Result Comment: <130 mg/dL, Optimal 130-159 mg/dL, Near optimal/above optimal 160-189 mg/dL, Borderline high 190-219 mg/dL, High >219 mg/dL, Very high Secondary prevention optimal non HDL Cholesterol levels are recommended to be <100 mg/dL Performed By: #### L IPNF, 09779-5 ####[facility] LABORATORYCLIA [id number] [address] T CHOL/HDL RATIO NF 2.75 mg/dL Normal <5.10 [facility] Comment on above: Order Comment: Rj michel Type: BLOOD SPECIMENOrdering Facility: [facility] Address: [address] [place] [address] Performed By: #### L IPNF, 11346-8 ####CH[facility]AL LABORATORYCLIA [id number] [address] TRIGLYCERIDES, NF 73 mg/dL Normal <150 [facility] Comment on above: Order Comment: Rj michel Type: BLOOD SPECIMENOrdering Facility: [facility] Address: [address] [place] [address] Result Comment: <150 mg/dL, Normal 150-199 mg/dL, Borderline high 200-499 mg/dL, High >499 mg/dL, Very high Performed By: #### L IPNF, 91799-9 ####CH[facility] LABORATORYCLIA [id number] [place] [address] [place] VLDL CHOLESTEROL, NF 15 mg/dL Normal <30 [facility] Comment on above: Order Comment: Speci men Type: BLOOD SPECIMENOrdering Facility: [facility] Address: [address] [place] [address] Performed By: #### L IP, 94681-8 ####CH[facility]AL LABORATORYCLIA [id number] [place] [address] [place] No Panel Informationon 07-08 [facility] T4 Free SerPl-mCncon 024 Free T4 [Mass/Vol] 1.3 ng/dL Normal 0.9-1.7 [facility] Comment on above: Order Comment: Speci men Type: BLOOD SPECIMENOrdering Facility: [facility] Address: [address] [place] [address] Performed By: #### 3 024-7, 6-3 ####[facility] [id number] [place] [address] [place] TSH SerPl-aCncon 07-01-2023 TSH Qn 1.680 m[IU]/L Normal 0.270-4.200 [facility] Comment on above: Order Comment: Speci men Type: BLOOD SPECIMENOrdering Facility: [facility] Address: [address] [place] [address] Performed By: #### 3 024-7, 3 ####[facility] LABCLIA [id number] [place] [address] [place] CNOVon 06-30-2023 CNOV Office Visit ([facility] ) MERNA WEBSTER ([id number]) 1940 F NFR Date Time Provider Department 06/30/23 3:00 PM MOUNA BAEZ During your visit today, we recorded the following information about you: Pulse Blood pressure Weight Height 76/minute 146/72 65.8 kg 1.575 m Mouna Baez, SPRING FORGER.MARINE ELECTRICIAN HELPER 07/03/2023 12:57 PM Signed [facility] [place] Shadia Newman Department of Cardiovascular Medicine SECTION [...] which included preparing to see the patient, [id number] patient care, completing clinical documentation, performing a [...] prior to the follow up. Mouna Baez APRN.[facility] Cardiology Nurse Practitioner [facility] Cardiology [facility] Dept of Cardiovascular Medicine [facility] [place] [address] [place] [id number] Office Office June 30, 2023 3:07 PM This note was partially generated using Myer voice recognition system and may contain errors related to that system including grammar, punctuation, spelling, and words that may be inappropriate. CARDIAC S (more content not included)... Normal [facility] CNPNon 06-19-2023 CNPN Telephone ([facility]) MERNA WEBSTER ([id number]) 1940 F NFR Date Time Provider Department 06/19/23 SONA GRIER [facility] During your visit today, we recorded the following information about you: Elisabeth Barber MA 06/19/2023 10:28 AM Signed Orders from [facility]/[employer] for A7039, A7034, A7038, A7036, A7037, A7046, A9279, E0562, E0601 A7035, A7032 all for c-pap supplies placed in Dr. Grier's in basket. lEisabeth Barber MA 06/22/2023 9:51 AM Signed Forms faxed back to [facility]. Transmission with forms in drawer. Allergies As [...] (FLONASE) 50 mcg/actuation nasal spray Use 1 [place] in each nostril once daily. - betamethasone [...] [M16.10] 09/04/2005 Pes anserinus tendinitis or bursitis [LGF1075] 09/04/2005 07/22/2017 PLANTAR FIBROMATOSIS [M72.2] 09/04/2005 Backache, unspecified [M54.9] 09/24/2005 04/23/2017 Thoracic or lumbosacral neuritis or radiculitis*09/24/2005 07/22/2017 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 Normal [facility] CNPNon 05-27-2023 CNPN Telephone ([facility]) MERNA WEBSTER ([id number]) 1940 F NFR Date Time Provider Department [...] (FLONASE) 50 mcg/actuation nasal spray Use 1 [place] in each nostril once daily. - betamethasone [...] every 4 hours as needed. - fexofenadine (MRAIA C) 180 mg tablet Take 180 mg [...] Primary osteoarthritis (more content not included)... Normal [facility] Jamie 05-26-2023 TREVAN Telephone ([facility]) MERNA WEBSTER ([id number]) 1940 F NFR Date Time Provider Department [...] [E03.9] Order(s):T4 FREE/FREE THYROX [SQFT4] Order #: [id number] FUTURE TSH BLD [SQTSH] Order #: [id number] FUTURE VITAMIN B12 BLOOD [SQB12] Order #: [id number] FUTURE FOLATE SERUM [SQSERFOL] Order #: [id number] FUTURE levothyroxine (SYNTHROID) 75 mcg tabletTake 0.5 [...] (FLONASE) 50 mcg/actuation nasal spray Use 1 [place] in each nostril once daily. - betamethasone [...] % (flush (more content not included)... Normal [facility] Folate [Mass/Vol] ng/mL Normal >4.7 [facility] Comment on above: Order Comment: Speci men Type: URINE SPECIMEN [facility] Address: [address] [place] [address] Result Comment: A re sult of > 20 ng/mL is not necessarily indicative of a pathologic or treatable condition: it reflects a limitation of the test methodology. Assay reference range: 4.8 to 24.2 ng/mL. Suitable for detection of folate deficiency. Reference: Folate III (Folate III) [package insert V 1.0 [place]]. [facility], [place], [place]: December 2014. Performed By: #### 2 695-5 #### [facility] CLIA [id number] [address] [place] [address] [place] Vit B12 SerPl-mCncon 024 Cobalamin (Vitamin B12) [Mass/Vol] 866 pg/mL Normal 232-1245 [facility] Comment on above: Order Comment: Speci men Type: URINE SPECIMEN [facility] Address: [address] [place] [address] Performed By: #### 2 695-5 #### [facility] CLIA [id number] [address] [place] [address] [place] Bacteria Ur Culton Bacteria identified Cx Nom (U) ORGANISM ID: 1 10,000 -<50,000 CFU/ml Normal urogenital singh Normal [facility] Comment on above: Performed By: #### 6 30-4 ####[facility] LABCLIA [id number] [place] [address] [place] CBC panel Auto (Bld)on 05-24 Erythrocyte distribution width (RBC) [Ratio] 13.0 % Normal 11.5-15.0 [facility] Comment on above: Order Comment: Speci men Type: URINE SPECIMEN [facility] Address: [address] [place] [address] Performed By: #### 2 695-5 #### [facility] CLIA [id number] [address] [place] [address] [place] Hematocrit (Bld) [Volume fraction] 36.1 % Normal 36.0-46.0 [facility] Comment on above: Order Comment: Speci men Type: URINE SPECIMEN [facility] Address: [address] [place] [address] Performed By: #### 2 695-5 #### [facility] CLIA [id number] [address] [place] [address] [place] Hemoglobin (Bld) [Mass/Vol] 11.8 g/dL Normal 11.5-15.5 [facility] Comment on above: Order Comment: Speci men Type: URINE SPECIMEN [facility] Address: [address] [place] [address] Performed By: #### 2 695-5 #### [facility] CLIA [id number] [address] [place] [address] [place] MCH (RBC) [Entitic mass] 33.4 pg Normal 26.0-34.0 [facility] Comment on above: Order Comment: Speci men Type: URINE SPECIMEN [facility] Address: [address] [place] [address] Performed By: #### 2 695-5 #### [facility] CLIA [id number] [address] [place] [address] [place] MCHC (RBC) [Mass/Vol] 32.7 g/dL Normal 30.5-36.0 [facility] Comment on above: Order Comment: Speci men Type: URINE SPECIMEN [facility] Address: [address] [place] [address] Performed By: #### 2 695-5 #### [facility] CLIA [id number] [address] [place] [address] [place] MCV (RBC) [Entitic vol] 102.3 fL High 80.0-100.0 [facility] Comment on above: Order Comment: Speci men Type: URINE SPECIMEN [facility] Address: [address] [place] [address] Performed By: #### 2 695-5 #### [facility] CLIA [id number] [address] [place] [address] [place] Nucleated RBC (Bld) [#/Vol] 10*3/uL Normal <0.01 [facility] Comment on above: Order Comment: Speci men Type: URINE SPECIMEN [facility] Address: [address] [place] [address] Performed By: #### 2 695-5 #### [facility] CLIA [id number] [address] [place] [address] [place] Platelet mean volume (Bld) [Entitic vol] 9.5 fL Normal 9.0-12.7 [facility] Comment on above: Order Comment: Speci men Type: URINE SPECIMEN [facility] Address: [address] [place] [address] Performed By: #### 2 695-5 #### [facility] CLIA [id number] [address] [place] [address] [place] Platelets (Bld) [#/Vol] 239 10*3/uL Normal 150-400 [facility] Comment on above: Order Comment: Speci men Type: URINE SPECIMEN [facility] Address: [address] [place] [address] Performed By: #### 2 695-5 #### [facility] CLIA [id number] [address] [place] [address] [place] RBC (Bld) [#/Vol] 3.53 10*6/uL Low 3.90-5.20 [facility] Comment on above: Order Comment: Speci men Type: URINE SPECIMEN [facility] Address: [address] [place] [address] Performed By: #### 2 695-5 #### [facility] CLIA [id number] [address] [place] [address] [place] WBC (Bld) [#/Vol] 7.61 10*3/uL Normal 3.70-11.00 [facility] Comment on above: Order Comment: Speci men Type: URINE SPECIMEN [facility] Address: [address] [place] [address] Performed By: #### 2 695-5 #### [facility] CLIA [id number] [address] [place] [address] [place] CNOVon 05-25-2023 CNOV Office Visit ([facility] ) MERNA WEBSTER ([id number]) 1940 F NFR Date Time Provider Department 05/25/23 11:20 AM СЕРГЕЙ ESPINOZA During your visit today, we recorded the following information about you: Temperature Pulse Respiration Blood pressure 97.9 degrees 82/minute 16/minute 132/80 Weight Height 64.2 kg 1.575 m Callie Taylor MA 05/31/2023 9:42 PM Signed RSV Vaccine(1 - 1-dose 60+ series) Never done Advance Directive Discussion due on 03/02/2023 Covid-19 Vaccine( season) due on 03/16/2023 Callie Taylor MA 05/25/2023 11:28 AM Signed [facility] TEST INFORMATION [facility] HOURS: Lab is open: 7:30am to 5:00pm - , 7:30am to 4:00pm on Thu and 8am -12pm on Thu. The lab is located in [facility] on the first floor. There is a registration window at the lab, available 7 am to 3 pm Thursday - Thursday. If registration is unavailable at the lab, you may register at the patient registration office near [facility]. SCHEDULING A LAB APPOINTMENT: Laboratory appointments are recommended.Walk ins are still accepted. Call [phone] or schedule via [employer] scheduling ticket. ROUTINE LAB ORDERS 60 days [...] REFILL REQUESTS Request prescription refills through your [employer] [facility] account or contact your Pharmacy. My Chart Schedule My Appointment enables you to view your established primary care provider's open schedule and book an appointment online in real-time. This feature is available in internal medicine, family medicine, or pediatrics at any of our [facility] locations and main campus. Сергей Espinoza MD 05/31/2023 9:42 PM Signed ESTABLISHED PATIENT Merna Webster is a 83 year old female presenting for Follow Up. HISTORY OF PRESENT ILLNESS Here with relative Patient thinks she has another UTI. Was recently in [facility]. Had chills the other night. Has [...] 160/80 03/24/2023 157/76 Hoping to get into prison this summer. Has some issues with ADLs. [...] reflux Hypothyroidi (more content not included)... Normal [facility] Comprehensive metabolic 2000 panelon 05-25-2023 Albumin [Mass/Vol] 4.2 g/dL Normal 3.9-4.9 [facility] Comment on above: Order Comment: Speci men Type: BLOOD SPECIMENOrdering Facility: [facility] Address: [address] [place] [address] Performed By: #### 3 016-3, 54108-9 ####[facility] LABORATORYCLIA [id number] [place] [address] [place] [facility] ALP [Catalytic activity/Vol] 78 U/L Normal 34-123 [facility] Comment on above: Order Comment: Speci men Type: BLOOD SPECIMENOrdering Facility: [facility] Address: [address] [place] [address] Performed By: #### 3 016-3, 18101-0 ####CH[facility]AL LABORATORYCLIA [id number] [address] [place] [facility] ALT [Catalytic activity/Vol] 12 U/L Normal 7-38 [facility] Comment on above: Order Comment: Speci men Type: BLOOD SPECIMENOrdering Facility: [facility] Address: [address] [place] [address] Performed By: #### 3 016-3, 05513-3 ####CHAHAL LABORATORYCLIA [id number] [place] [address] [place] Anion gap [Moles/Vol] 7 mmol/L Low 9-18 [facility] Comment on above: Order Comment: Speci men Type: BLOOD SPECIMENOrdering Facility: [facility] Address: [address] [place] [address] Performed By: #### 3 016-3, 01968-6 ####CHAHAL LABORATORYCLIA [id number] [place] [address] [place] AST [Catalytic activity/Vol] 18 U/L Normal 13-35 [facility] Comment on above: Order Comment: Speci men Type: BLOOD SPECIMENOrdering Facility: [facility] Address: [address] [place] [address] Performed By: #### 3 016-3, 60469-2 ####CHAHAL LABORATORYCLIA [id number] [place] [address] [place] Bilirubin [Mass/Vol] 0.2 mg/dL Normal 0.2-1.3 [facility] Comment on above: Order Comment: Speci men Type: BLOOD SPECIMENOrdering Facility: [facility] Address: [address] [place] [address] Performed By: #### 3 016-3, 31577-9 ####CHAHAL LABORATORYCLIA [id number] [place] [address] [place] Calcium [Mass/Vol] 9.5 mg/dL Normal 8.5-10.2 [facility] Comment on above: Order Comment: Speci men Type: BLOOD SPECIMENOrdering Facility: [facility] Address: [address] [place] [address] Performed By: #### 3 016-3, 95914-9 ####CHAHAL LABORATORYCLIA [id number] [place] [address] [place] Chloride [Moles/Vol] 96 mmol/L Low 97-105 [facility] Comment on above: Order Comment: Speci men Type: BLOOD SPECIMENOrdering Facility: [facility] Address: [address] [place] [address] Performed By: #### 3 016-3, 48003-4 ####CHAHAL LABORATORYCLIA [id number] [place] [address] [place] CO2 [Moles/Vol] 32 mmol/L High 22-30 [facility] Comment on above: Order Comment: Speci men Type: BLOOD SPECIMENOrdering Facility: [facility] Address: [address] [place] [address] Performed By: #### 3 016-3, 14513-2 ####CHAHAL LABORATORYCLIA [id number] [place] [address] [place] Creatinine [Mass/Vol] 0.61 mg/dL Normal 0.58-0.96 [facility] Comment on above: Order Comment: Speci men Type: BLOOD SPECIMENOrdering Facility: [facility] Address: [address] [place] [address] Performed By: #### 3 -3, 13395-6 ####CHAHAL LABORATORYCLIA [id number] [place] [address] [place] [facility] Creatinine and Glomerular filtration rate.predicted panel (S/P/Bld) 89 mL/min/1.73m??? Normal >=60 [facility] Comment on above: Order Comment: Speci men Type: BLOOD SPECIMENOrdering Facility: [facility] Address: [address] [place] [address] Result Comment: Arlen mated Glomerular Filtration Rate [...] actual GFR. Performed By: #### 3 016-3, 70786-5 ####CH[facility]AL LABORATORYCLIA [id number] [place] [address] [place] Glucose [Mass/Vol] 104 mg/dL High 74-99 [facility] Comment on above: Order Comment: Niurkai men Type: BLOOD SPECIMENOrdering Facility: [facility] Address: [address] [place] [address] Result Comment: The [place] Diabetes Association (ADA) provides guidance for cutoff [...] Standards of Medical Care in Diabetes 2016, [place] [employer]. Diabetes Care. 2016.39(Suppl 1). Performed By: #### 3 016-3, 28089-2 ####CHAHAL LABORATORYCLIA [id number] [place] [address] [place] Potassium [Moles/Vol] 3.8 mmol/L Normal 3.7-5.1 [facility] Comment on above: Order Comment: Rj michel Type: BLOOD SPECIMENOrdering Facility: [facility] Address: [address] [place] [address] Performed By: #### 3 016-3, 41229-6 ####CHAHAL LABORATORYCLIA [id number] [place] [address] [place] Protein [Mass/Vol] 6.9 g/dL Normal 6.3-8.0 [facility] Comment on above: Order Comment: Niurkai men Type: BLOOD SPECIMENOrdering Facility: [facility] Address: [address] [place], [place] [address] Performed By: #### 3 016-3, 64667-0 ####CHAHAL LABORATORYCLIA [id number] [place] [address] [place] Sodium [Moles/Vol] 135 mmol/L Low 136-144 [facility] Comment on above: Order Comment: Speci men Type: BLOOD SPECIMENOrdering Facility: [facility] Address: [address] [place] [address] Performed By: #### 3 016-3, 42964-8 ####CHAHAL LABORATORYCLIA [id number] [place] [id number] [place] Urea nitrogen [Mass/Vol] 9 mg/dL Normal 7-21 [facility] Comment on above: Order Comment: Speci men Type: BLOOD SPECIMENOrdering Facility: [facility] Address: [address] [place] [address] Performed By: #### 3 016-3, ####CHAHAL LABORATORYCLIA [id number] [place] [id number] [place] T4 Free SerPl-mCncon 024 Free T4 [Mass/Vol] 0.8 ng/dL Low 0.9-1.7 [facility] Comment on above: Order Comment: Speci men Type: URINE SPECIMEN [facility] Address: [address] [place] [address] Performed By: #### 2 695-5 #### [facility] CLIA [id number] [address] [place] [address] [place] TSH SerPl-aCncon 05-25-2023 TSH Qn 8.320 m[IU]/L High 0.270-4.200 [facility] Comment on above: Order Comment: Speci men Type: BLOOD SPECIMENOrdering Facility: [facility] Address: [address] [place] [address] Performed By: #### 3 016-3, 71904-7 ####CHAHAL LABORATORYCLIA [id number] [place] [id number] [place] URINALYSIS, REFLEX MICROSCOP ICon 05-25-2023 Bilirubin Ql (U) Negative Normal Negative [facility] Comment on above: Order Comment: Speci men Type: URINE SPECIMEN [facility] Address: [address] [place] [address] Performed By: #### 2 695-5 #### [facility] CLIA [id number] [address] [place] [id number] [place] Clarity (Unsp spec) Clear Normal Clear [facility] Comment on above: Order Comment: Speci men Type: URINE SPECIMEN [facility] Address: [address] [place] [address] Performed By: #### 2 695-5 #### [facility] CLIA [id number] [address] [place] [address] [place] Color (U) Yellow Normal Yellow [facility] Comment on above: Order Comment: Speci men Type: URINE SPECIMEN [facility] Address: [address] [place] [address] Performed By: #### 2 695-5 #### [facility] CLIA [id number] [address] [place] [address] [place] Glucose Test strip (U) [Mass/Vol] Negative Normal Negative [facility] Comment on above: Order Comment: Speci men Type: URINE SPECIMEN [facility] Address: [address] [place] [address] Performed By: #### 2 695-5 #### [facility] CLIA [id number] [address] [place] [address] [place] Hemoglobin Ql (U) Negative Normal Negative [facility] Comment on above: Order Comment: Speci men Type: URINE SPECIMEN [facility] Address: [address] [place] [address] Performed By: #### 2 695-5 #### [facility] CLIA [id number] [address] [place] [address] [place] Ketones Ql (U) Negative Normal Negative [facility] Comment on above: Order Comment: Speci men Type: URINE SPECIMEN [facility] Address: [address] [place] [address] Performed By: #### 2 695-5 #### [facility] CLIA [id number] [address] [place] [address] [place] Leukocyte esterase Test strip Ql (U) Negative Normal Negative [facility] Comment on above: Order Comment: Speci men Type: URINE SPECIMEN [facility] Address: [address] [place] [address] Performed By: #### 2 695-5 #### [facility] CLIA [id number] [address] [place] [address] [place] Nitrite Ql (U) Negative Normal Negative [facility] Comment on above: Order Comment: Speci men Type: URINE SPECIMEN [facility] Address: [address] [place] [address] Performed By: #### 2 695-5 #### [facility] CLIA [id number] [address] [place] [address] [place] pH (U) 6.5 [pH] Normal 5.0-8.0 [facility] Comment on above: Order Comment: Speci men Type: URINE SPECIMEN [facility] Address: [address] [place] [address] Performed By: #### 2 695-5 #### [facility] CLIA [id number] [address] [place] [address] [place] Protein (U) [Mass/Vol] Negative Normal Negative [facility] Comment on above: Order Comment: Speci men Type: URINE SPECIMEN [facility] Address: [address] [place] [address] Performed By: #### 2 695-5 #### [facility] CLIA [id number] [address] [place] [address] [place] Specific gravity (U) [Rel density] 1.010 Normal 1.005-1.030 [facility] Comment on above: Order Comment: Speci men Type: URINE SPECIMEN [facility] Address: [address] [place] [address] Performed By: #### 2 695-5 #### [facility] CLIA [id number] [address] [place] [address] [place] Urobilinogen Ql (U) 0.2 EU/dL Normal 0.2-1.0 EU/dL [facility] Comment on above: Order Comment: Speci men Type: URINE SPECIMEN [facility] Address: [address] [place] [address] Performed By: #### 2 695-5 #### [facility] CLIA [id number] [address] [place] [address] [place] CNOVon 04-23-2023 CNOV Office Visit (CARMED ) MERNA WEBSTER Ana ([id number]) 1940 F NFR Date Time Provider Department 04/23/23 3:00 PM IGOR JOHNSON During your visit today, we recorded the following information about you: Pulse Blood pressure Weight Height 83/minute 160/80 64.2 kg 1.575 m Igor Johnson DO 04/24/2023 9:54 AM [facility] SECTION OF REGIONAL CARDIOLOGY [facility] OUTPATIENT VISIT DATE April 23, 2023 PRIMARY CARE PHYSICIAN: Сергей Espinoza [address] [place] [address] HISTORY OF PRESENT ILLNESS: Ms. Webster is [...] currently alone as her resides in a prison due to challenges with him having inability [...] and vomiting. Endocrine (more content not included)... [facility] 02-17-2023 [facility] Telephone (MEPRAD) MERNA WEBSTER ([id number]) 1940 F NFR Date Time Provider Department [...] (FLONASE) 50 mcg/actuation nasal spray Use 1 [place] in each nostril two times a day. [...] Resolved P (more content not included)... Normal [facility] ECHOon 01-29-2023 Echocardiography Echocardiography Report: Transthoracic Echo [facility] Date of service: 01/29/2023 2:02:38 PM Ordering physician: SONA GRIER Indication: Suspected pulmonary hypertension Technologist: Sabine Rubio [facility] Interpreting physician: Darrian Singh MD PATIENT: Name: MS. MERNA WEBSTER [...] * * * Final * * * [employer] [facility] : [id number] ECG COMPLETEon 12-08-2022 ECG COMPLETE Ventricular Rate : 8 7 BPM Atrial Rate : 87 BPM P-R Interval : 138 ms QRS Duration : 76 ms Q-T Interval : 368 ms QTC Calculation(Bazett) : 442 ms Calculated P [place] : 28 degrees Calculated R [place] : -17 degrees Calculated T [place] : 26 degrees NORMAL SINUS RHYTHM MINIMAL VOLTAGE CRITERIA FOR LVH, MAY BE NORMAL VARIANT INFERIOR INFARCT , AGE UNDETERMINED POOR R-WAVE PROGRESSION WHEN COMPARED WITH ECG OF 21-DEC-2020 18:39, NO SIGNIFICANT CHANGE WAS FOUND Confirmed by MD SINGH QARAB ([id number]) on 12/08/2022 4:24:11 PM NAME : MERNA WEBSTER PID : [id number] : 1940 Gender : Female Race : ORD : [id number] Procedure Date : Dec 08 2022 14:45:42 Edit Date : Dec 08 2022 16:24:16 Diagnosis: NORMAL SINUS RHYTHM MINIMAL VOLTAGE CRITERIA FOR LVH, MAY BE NORMAL VARIANT INFERIOR INFARCT , AGE UNDETERMINED POOR R-WAVE PROGRESSION WHEN COMPARED WITH ECG OF 21-DEC-2020 18:39, NO SIGNIFICANT CHANGE WAS FOUND Confirmed by MD SINGH QARAB ([id number]) on 12/08/2022 4:24:11 PM Test Reason : Shortness of Breath Location : 0 : CARD Overread By : MD SINGH QARAB Edited By : MD SINGH QARAB Referred By : SONA GRIER Acquired by : Jennyfer Sweeney [facility] No Panel Informationon 11-28 [facility] XR CHEST 2V FRONTAL/LATon XR CHEST [...] be identified it could be easily obscured Senior Svp: YURIDIA Transcribe Date/Time: Nov 28 2022 3:00P Dictated by : FLORIN ROSSI DO This examination was interpreted and the report reviewed and electronically signed by: FLORIN ROSSI DO on Nov 28 2022 3:03PM EST [id number] [facility] XR Knee - bilateral 4 Viewso n 10-26-2022 IMPRESSION: Degenerative changes as discussed Senior Svp: PSCB Transcribe Date/Time: Oct 26 2022 1:37P Dictated by : FLORIN ROSSI DO This examination was interpreted and the report reviewed and electronically signed by: FLORIN ROSSI DO on Oct 26 2022 1:38PM EST [facility] * * *Final Report* * * DATE OF EXAM: Oct 24 2022 2:45PM [facility] 5618 - XR KNEE 4V AP/PA/LAT/MERCH RYAN / PROCEDURE REASON: [id number] * * * * Physician Interpretation * [...] Left :No fractures or dislocations are seen. [facility] Provider, Pedro Sarkar - 10/26/2022 * * *Final Report* * * DATE OF EXAM: Oct 24 2022 2:45PM O 5618 - XR KNEE 4V AP/PA/LAT/MERCH RYAN / PROCEDURE REASON: [id number] * * * * Physician Interpretation * [...] seen. IMPRESSION IMPRESSION: Degenerative changes as discussed Senior Svp: YURIDIA Transcribe Date/Time: Oct 26 2022 1:37P Dictated by : FLORIN ROSSI DO This examination was interpreted and the report reviewed and electronically signed by: FLORIN ROSSI DO on Oct 26 2022 1:38PM EST [facility] XR Knee - bilateral 4 ViewsO rdered By: Ccf Provider on 10-26-2022 [facility] XR Shoulder - right 3 Viewso n 10-26-2022 IMPRESSION: Findings as discussed under Results portion of report. Senior Svp: YURIDIA Transcribe Date/Time: Oct 26 2022 1:30P Dictated by : FLORIN ROSSI DO This examination was interpreted and the report reviewed and electronically signed by: FLORIN ROSSI DO on Oct 26 2022 1:37PM EST [facility] * * *Final Report* * * DATE OF EXAM: Oct 24 2022 2:45PM [facility] 5253 - XR SHLDR >/=3V AP/FRANCO AP/OTHR [...] within the joint space. Marked bony demineralization [facility] Provider, [facility] 10/26/2022 * * *Final Report* * * DATE OF EXAM: Oct 24 2022 2:45PM [facility] 5253 - XR SHLDR >/=3V AP/FRANCO AP/OTHR [...] as discussed under Results portion of report. Senior Svp: YURIDIA Transcribe Date/Time: Oct 26 2022 1:30P Dictated by : FLORIN LARRICK, DO This examination was interpreted and the report reviewed and electronically signed by: FLORIN ROSSI DO on Oct 26 2022 1:37PM EST [facility] XR Shoulder - right 3 ViewsO rdered By: Ccf Provider on 10-26-2022 [facility] No Panel Informationon 10-24 Radiology Study observation (narrative) [facility] XR KNEE 4V AP/PA/LAT/MERCH B ILon 10-24-2022 XR KNEE 4V AP/PA/LAT/MERCH RYAN * * *Final Report* * * DATE OF EXAM: Oct 24 2022 2:45PM [facility] 5618 - XR KNEE 4V AP/PA/LAT/MERCH RYAN / PROCEDURE REASON: [id number] * * * * Physician Interpretation * [...] are seen. IMPRESSION: Degenerative changes as discussed Senior Svp: YURIDIA Transcribe Date/Time: Oct 26 2022 1:37P Dictated by : FLORIN ROSSI DO This examination was interpreted and the report reviewed and electronically signed by: FLORIN ROSSI DO on Oct 26 2022 1:38PM EST [id number] [facility] XR SHLDR >/=3V AP/FRANCO AP/OTH R RTon [...] as discussed under Results portion of report. Senior Svp: PSCB Transcribe Date/Time: Oct 26 2022 1:30P Dictated by : FLORIN ROSSI DO This examination was interpreted and the report reviewed and electronically signed by: FLORIN ROSSI DO on Oct 26 2022 1:37PM EST [id number] [facility] No Panel Informationon 09-03 [facility] CBC panel Auto (Bld)on 08-22 Erythrocyte distribution width (RBC) [Ratio] 12.9 % 11.5 - 15.0 % [facility] Hematocrit (Bld) [Volume fraction] 35.7 % Low 36.0 - 46.0 % [facility] Hemoglobin (Bld) [Mass/Vol] 11.8 g/dL 11.5 - 15.5 g/dL [facility] MCH (RBC) [Entitic mass] 33.5 pg 26.0 - 34.0 pg [facility] MCHC (RBC) [Mass/Vol] 33.1 g/dL 30.5 - 36.0 g/dL [facility] MCV (RBC) [Entitic vol] 101.4 fL High 80.0 - 100.0 fL [facility] Nucleated RBC (Bld) [#/Vol] <0.01 k/uL [facility] Platelet mean volume (Bld) [Entitic vol] 8.7 fL Low 9.0 - 12.7 fL [facility] Platelets (Bld) [#/Vol] 233 10*3/uL 150 - 400 k/uL [facility] RBC (Bld) [#/Vol] 3.52 10*6/uL Low 3.90 - 5.2 0 m/uL [facility] WBC (Bld) [#/Vol] 7.57 10*3/uL 3.70 - 11. 00 k/uL [facility] Comprehensive metabolic 2000 panelon 08-22-2022 Albumin [Mass/Vol] 3.9 g/dL 3.9 - 4.9 g/dL [facility] ALP [Catalytic activity/Vol] 94 U/L 34 - 123 U/L [facility] ALT [Catalytic activity/Vol] 10 U/L 7 - 38 U/L [facility] Anion gap [Moles/Vol] 8 mmol/L Low 9 - 18 mmol/L [facility] AST [Catalytic activity/Vol] 16 U/L 13 - 35 U/L [facility] Bilirubin [Mass/Vol] 0.2 mg/dL 0.2 - 1 .3 mg/dL [facility] Calcium [Mass/Vol] 9.3 mg/dL 8.5 - 10. 2 mg/dL [facility] Chloride [Moles/Vol] 101 mmol/L 97 - 10 5 mmol/L [facility] CO2 [Moles/Vol] 30 mmol/L 22 - 30 mmol/L [facility] Creatinine [Mass/Vol] 0.61 mg/dL 0.58 - 0.96 mg/dL [facility] Estimated Glomerular Filtration Rate 90 mL/min/1.73m >=60 mL/min/1.73m [facility] Glucose [Mass/Vol] 98 mg/dL 74 - 99 mg/dL [facility] Potassium [Moles/Vol] 4.3 mmol/L 3.7 - 5.1 mmol/L [facility] Protein [Mass/Vol] 7.2 g/dL 6.3 - 8.0 g/dL [facility] Sodium [Moles/Vol] 139 mmol/L 136 - 144 mmol/L [facility] Urea nitrogen [Mass/Vol] 11 mg/dL 7 - 21 mg/dL [facility] TSH BLDon 08-22-2022 TSH Qn 2.480 m[IU]/L 0.270 - 4.200 mIU/L [facility] CT CHEST WO IVCONon 07-10-19 CT CHEST WO IVCON * * *Final Report* * * DATE OF EXAM: Jul 09 2022 4:25PM [facility] [place] CHEST WO IVCON / [...] No abnormality in the imaged upper abdomen. Gasateria Attendant (topogram) images: No additional findings. IMPRESSION: 1. 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 No significant interval change 2. No definite nodules are seen on this study 3. Findings are again compatible with Pulmonary arterial hypertension Senior Svp: YURIDIA Transcribe Date/Time: Jul 16 2022 1:20P Dictated by : FLORIN ROSSI DO This examination was interpreted and the report reviewed and electronically signed by: FLORIN ROSSI DO on Jul 16 2022 1:43PM EST [id number] Normal [facility] XR Pelvis and Hip - right AP and Lateral frogon 05-24-2022 IMPRESSION: Advanced right hip osteoarthritis Senior Svp: YURIDIA Transcribe Date/Time: May 24 2022 1:37P Dictated by : PALOMA MOLINA MD This examination was interpreted and the report reviewed and electronically signed by: PALOMA MOLINA MD on May 24 2022 1:38PM EST [facility] * * *Final Report* * * DATE OF EXAM: May 22 2022 3:03PM [facility] 5352 - XR HIP 3V PELV+ AP/LAT [...] Sacroiliac joints and symphysis pubis are maintained. [facility] Provider, Pedro [facility] - 05/24/2022 * * *Final Report* * * DATE OF EXAM: May 22 2022 3:03PM [facility] 5352 - XR HIP 3V PELV+ AP/LAT [...] maintained. IMPRESSION IMPRESSION: Advanced right hip osteoarthritis Senior Svp: [facility] Transcribe Date/Time: May 24 2022 1:37P Dictated by : PALOMA MOLINA MD This examination was interpreted and the report reviewed and electronically signed by: PALOMA MOLINA MD on May 24 2022 1:38PM [facility] XR Pelvis and Hip - right AP and Lateral frogOrdered By: Ccf Provider on 05-24-2022 [facility] XR HIP 3V PELV+ AP/LAT RTon 05-22-2022 XR HIP 3V PELV+ AP/LAT RT * * *Final Report* * * DATE OF EXAM: May 22 2022 3:03PM [facility] 5352 - XR HIP 3V PELV+ AP/LAT [...] are maintained. IMPRESSION: Advanced right hip osteoarthritis Senior Svp: PSCB Transcribe Date/Time: May 24 2022 1:37P Dictated by : PALOMA MOLINA MD This examination was interpreted and the report reviewed and electronically signed by: PALOMA MOLINA MD on May 24 2022 1:38PM EST [id number] Normal [facility] XR Pelvis and Hip - right AP and Lateral frogon 05-22-2022 Radiology Study observation (narrative) [facility] TSH BLDon 05-08-2022 TSH Qn 2.450 m[IU]/L 0.270 - 4.200 mIU/L [facility] TSH SerPl-aCncon 05-08-2022 TSH Qn 2.450 m[IU]/L Normal 0.270-4.200 [facility] Comment on above: Order Comment: Speci men Type: BLOOD SPECIMENOrdering Facility: [facility] Address: [address] [place] [id number] Performed By: #### 3 016-3 ####[facility] [id number] [place] [address] [facility] [place] Office Visit (Urgent Care)on 04-20-2022 Follow-up visit Diagnoses/Problems Assessed Shingles (053.9) (B02.9) Orders Shingles Start: Acyclovir 800 MG Oral Tablet; TAKE 1 TABLET EVERY 4 HOURS, 5 TIMES DAILY FOR 7 TO 10 DAYS Rx By: Tommy Owusu; Dispense: 10 Days ; #:50 Tablet; Refill: 0;For: Shingles; TARYN = N; [facility]; Last Updated By: System, [employer]; 04/20/2022 2:20:49 PM Provider Impressions Physical exam findings as noted above. Patient's painful erythematous rash is entirely consistent with the left facial dermatome strongly suggesting herpes zoster infection. There is no evidence of ocular involvement at this time. Patient was provided with a prescription for acyclovir 800 mg and supportive care instructions were discussed. 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 Over the last 2 weeks have you felt down, depressed or hopeless? (If yes, answer PHQ-9 below)No PHQ-2 #2. Over the last 2 weeks have you felt little interest or pleasure in doing things? (If yes, answer PHQ-9 below)No Falls Screening (Age 18+)a) No falls within the last year O2 Wojpaucfyu53, Nasal Cannula Pain Scale0 Physical Exam Constitutional: Well developed, well nourished. vital signs reviewed. patient alert patient without distress Head and Face: Head and face: Abnormal. Palpation of the face and sinuses: Abnormal. Eyes: Normal external exam - pupils were equal in size, round, reactive to light (PERRL) with normal accommodation and extraocular move (more content not included)... 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 No acute osseous abnormality identified involving the sacrum or coccyx. Mild osteoarthrosis of the right knee. Senior Svp: YURIDIA Transcribe Date/Time: Dec 31 2021 3:07P Dictated by : ALESSANDRA SIMON MD This examination was interpreted and the report reviewed and electronically signed by: ALESSANDRA SIMON MD on Dec 31 2021 3:10PM [facility] No Panel InformationOrdered By: Ccf Provider on 12-31-2021 [facility] XR Knee - right 4 Viewson [...] of right knee RIGHT KNEE PAIN (accession [id number]), LOW BACK PAIN (accession [id number]), LOW BACK PAIN (accession [id number]) TECHNIQUE: Images: XR KNEE 4V AP/PA BOTH+LAT/CAREN [...] levels in the lumbar spine. No fracture. Zcmp-gy-ulku of the right femoral head and acetabulum. Degenerative cyst formation on the right femoral head and acetabulum. Osteophyte formation on the left superior acetabulum. Sacrum/coccyx RESULT: SI joints. Tach. No erosions are seen. Subchondral sclerosis subjacent to the SI joints. No fracture or dislocation. The remainder of the imaged bony pelvis appears to be intact. [facility] Provider, [facility] - 12/31/2021 * * *Final Report* * [...] of right knee RIGHT KNEE PAIN (accession [id number]), LOW BACK PAIN (accession [id number]), LOW BACK PAIN (accession [id number]) TECHNIQUE: Images: XR KNEE 4V AP/PA BOTH+LAT/CAREN [...] levels in the lumbar spine. No fracture. Yhws-cg-dklm of the right femoral head and acetabulum. [...] coccyx. Mild osteoarthrosis of the right knee. Senior Svp: YURIDIA Transcribe Date/Time: Dec 31 2021 3:07P Dictated by : ALESSANDRA SIMON MD This examination was interpreted and the report reviewed and electronically signed by: ALESSANDRA SIMON MD on Dec 31 2021 3:10PM EST [facility] XR Lumbar spine 3 Viewson * [...] of right knee RIGHT KNEE PAIN (accession [id number]), LOW BACK PAIN (accession [id number]), LOW BACK PAIN (accession [id number]) TECHNIQUE: Images: XR KNEE 4V AP/PA BOTH+LAT/CAREN [...] levels in the lumbar spine. No fracture. Oitu-ff-pkwr of the right femoral head and acetabulum. Degenerative cyst formation on the right femoral head and acetabulum. Osteophyte formation on the left superior acetabulum. Sacrum/coccyx RESULT: SI joints. Tach. No erosions are seen. Subchondral sclerosis subjacent to the SI joints. No fracture or dislocation. The remainder of the imaged bony pelvis appears to be intact. [facility] Provider, Pedro Sarkar - 12/31/2021 * * *Final Report* * [...] of right knee RIGHT KNEE PAIN (accession [id number]), LOW BACK PAIN (accession [id number]), LOW BACK PAIN (accession [id number]) TECHNIQUE: Images: XR KNEE 4V AP/PA BOTH+LAT/CAREN [...] levels in the lumbar spine. No fracture. Tcta-ix-pbiz of the right femoral head and acetabulum. [...] coccyx. Mild osteoarthrosis of the right knee. Senior Svp: YURIDIA Transcribe Date/Time: Dec 31 2021 3:07P Dictated by : ALESSANDRA SIMON MD This examination was interpreted and the report reviewed and electronically signed by: ALESSANDRA SIMON MD on Dec 31 2021 3:10PM [facility] XR Sacrum and Coccyx 3 Views [...] of right knee RIGHT KNEE PAIN (accession [id number]), LOW BACK PAIN (accession [id number]), LOW BACK PAIN (accession [id number]) TECHNIQUE: Images: XR KNEE 4V AP/PA BOTH+LAT/CAREN [...] levels in the lumbar spine. No fracture. Ybfx-cb-jiqt of the right femoral head and acetabulum. Degenerative cyst formation on the right femoral head and acetabulum. Osteophyte formation on the left superior acetabulum. Sacrum/coccyx RESULT: SI joints. Tach. No erosions are seen. Subchondral sclerosis subjacent to the SI joints. No fracture or dislocation. The remainder of the imaged bony pelvis appears to be intact. [facility] Provider, Pedro Gaxiola [facility] - 12/31/2021 * * *Final Report* [...] of right knee RIGHT KNEE PAIN (accession [id number]), LOW BACK PAIN (accession [id number]), LOW BACK PAIN (accession [id number]) TECHNIQUE: Images: XR KNEE 4V AP/PA BOTH+LAT/CAREN [...] levels in the lumbar spine. No fracture. Ekbh-wx-eydv of the right femoral head and acetabulum. [...] coccyx. Mild osteoarthrosis of the right knee. Senior Svp: PSCB Transcribe Date/Time: Dec 31 2021 3:07P Dictated by : ALESSANDRA SIMON MD This examination was interpreted and the report reviewed and electronically signed by: ALESSANDRA SIMON MD on Dec 31 2021 3:10PM [facility] No Panel Informationon 12-30 Radiology Study observation (narrative) [facility] XR Knee - right 4 Viewson Radiology Study observation (narrative) [facility] CBC panel Auto (Bld)on 05-30 Erythrocyte distribution width (RBC) [Ratio] 13.2 % 11.5 - 15.0 % [facility] Hematocrit (Bld) [Volume fraction] 36.5 % 36.0 - 46.0 % [facility] Hemoglobin (Bld) [Mass/Vol] 11.7 g/dL 11.5 - 15.5 g/dL [facility] MCH (RBC) [Entitic mass] 31.5 pg 26.0 - 34.0 pg [facility] MCHC (RBC) [Mass/Vol] 32.1 g/dL 30.5 - 36.0 g/dL [facility] MCV (RBC) [Entitic vol] 98.1 fL 80.0 - 100.0 fL [facility] Nucleated RBC (Bld) [#/Vol] 10*3/uL <0.01 k/uL [facility] Platelet mean volume (Bld) [Entitic vol] 9.5 fL 9.0 - 12.7 fL [facility] Platelets (Bld) [#/Vol] 232 10*3/uL 150 - 400 k/uL [facility] RBC (Bld) [#/Vol] 3.72 10*6/uL Low 3.90 - 5.2 0 m/uL [facility] WBC (Bld) [#/Vol] 9.24 10*3/uL 3.70 - 11. 00 k/uL [facility] Comprehensive metabolic 2000 panelon 05-30-2021 Albumin [Mass/Vol] 3.9 g/dL 3.9 - 4.9 g/dL [facility] ALP [Catalytic activity/Vol] 97 U/L 34 - 123 U/L [facility] ALT [Catalytic activity/Vol] 8 U/L 7 - 38 U/L [facility] Anion gap [Moles/Vol] 5 mmol/L Low 9 - 18 mmol/L [facility] AST [Catalytic activity/Vol] 23 U/L 13 - 35 U/L [facility] Bilirubin [Mass/Vol] 0.2 mg/dL 0.2 - 1 .3 mg/dL [facility] Calcium [Mass/Vol] 9.3 mg/dL 8.5 - 10. 2 mg/dL [facility] Chloride [Moles/Vol] 99 mmol/L 97 - 10 5 mmol/L [facility] CO2 [Moles/Vol] 30 mmol/L 22 - 30 mmol/L [facility] Creatinine [Mass/Vol] 0.65 mg/dL 0.58 - 0.96 mg/dL [facility] Estimated Glomerular Filtration Rate 89 mL/min/1.73m >=60 mL/min/1.73m [facility] Glucose [Mass/Vol] 85 mg/dL 74 - 99 mg/dL [facility] Potassium [Moles/Vol] 4.7 mmol/L 3.7 - 5.1 mmol/L [facility] Protein [Mass/Vol] 7.5 g/dL 6.3 - 8.0 g/dL [facility] Sodium [Moles/Vol] 134 mmol/L Low 136 - 144 mmol/L [facility] Urea nitrogen [Mass/Vol] 9 mg/dL 7 - 21 mg/dL [facility] LIPID PANEL, NONFASTINGon Cholesterol [Mass/Vol] 166 mg/dL <200 mg/dL [facility] HDL Cholesterol, Nonfasting 61 mg/dL >39 mg/dL [facility] LDL Cholesterol, Nonfasting 77 mg/dL <100 mg/dL [facility] LDL/HDL Ratio, Nonfasting 1.26 mg/dL <2.54 mg/dL [facility] Non HDL Cholesterol, Nonfasting 105 mg/dL <130 mg/dL [facility] Total Chol/HDL Ratio, Nonfasting 2.72 mg/dL <5.10 mg/dL [facility] Triglycerides, Nonfasting 141 mg/dL <150 mg/dL [facility] VLDL Cholesterol, Nonfasting 28 mg/dL <30 mg/dL [facility] TSH BLDon 05-30-2021 TSH Qn 1.450 m[IU]/L 0.270 - 4.200 mIU/L [facility] CNPNon 12-24-2020 CNPN Telephone ([facility]) MERNA WEBSTER ([id number]) 1940 F NFR Date Time Provider Department 12/24/20 JIGAR GRAHAM [facility] During your visit today, we recorded [...] (FLONASE) 50 mcg/actuation nasal spray Use 1 [place] in each nostril daily at bedtime. - [...] [M15.9] 09/04/2005 Pes anserinus tendinitis or bursitis [[id number]] 09/04/2005 07/22/2017 PLANTAR FIBROMATOSIS [M72.2] 09/04/2005 Backache, [...] (HCC) [J84.112] (more content not included)... Normal [facility] Large Joint Arthro/Inj: R kn ee joint [facility] Vital Signs Date Time Vital Sign Value Performing Clinician Facility 09-17-2024 09:59-0400 Body height [address] Сергей Espinoza MD Work Phone: [facility] 09-14-2024 15:09-0400 Body height [address] Сергей Espinoza MD Work Phone: [facility] 09-14-2024 14:56-0400 Body height [address] Сергей Espinoza MD Work Phone: [facility] 09-25-2023 13:50-0400 Body mass index (BMI) [Ratio] 24.31 kg/m2 Mouna Vuong APRN.MARINE ELECTRICIAN HELPER Work Phone: [facility] 09-25-2023 13:50-0400 Body weight 60.3 kg Mouna Vuong APRN.MARINE ELECTRICIAN HELPER Work Phone: [facility] 09-25-2023 13:50-0400 Diastolic blood pressure 86 mm[Hg] Mouna Vuong APRN.MARINE ELECTRICIAN HELPER Work Phone: [facility] Comment on above: Patient is newly on B/p medication [facility] 09-25-2023 13:50-0400 Heart rate 79 /min Mouna Vuong APRN.MARINE ELECTRICIAN HELPER Work Phone: [facility] 09-25-2023 13:50-0400 SaO2% (BldA) [Mass fraction] 99 % Mouna Vuong APRN.MARINE ELECTRICIAN HELPER Work Phone: [facility] Comment on above: patient is on 3 liters of portable Oxyge n 09-25-2023 13:50-0400 Systolic blood pressure 167 mm[Hg] Mouna Vuong APRN.MARINE ELECTRICIAN HELPER Work Phone: [facility] Comment on above: Patient is newly on B/p medication [facility]it [facility]red [facility] 07-09-2023 08:28-0400 Diastolic blood pressure 80 mm[Hg] Сергей Espinoza MD Work Phone: [facility] 07-09-2023 08:28-0400 Systolic blood pressure 130 mm[Hg] Сергей Espinoza MD Work Phone: [facility] 07-09-2023 08:12-0400 Body height 157.5 cm Сергей Espinoza MD Work Phone: [facility] 07-09-2023 08:12-0400 Body mass index (BMI) [Ratio] 25.08 kg/m2 Сергей Espinoza MD Work Phone: [facility] 07-09-2023 08:12-0400 Body temperature 97.11 [degF] Сергей Espinoza MD Work Phone: [facility] 07-09-2023 08:12-0400 Body weight 62.2 kg Сергей Espinoza MD Work Phone: [facility] 07-09-2023 08:12-0400 Heart rate 82 /min Сергей Espinoza MD Work Phone: [facility] 07-09-2023 08:12-0400 Respiratory rate 16 /min Сергей Espinoza MD Work Phone: [facility] 07-09-2023 08:12-0400 SaO2% (BldA) [Mass fraction] 98 % Сергей Espinoza MD Work Phone: [facility] 06-30-2023 15:11-0400 Body height 157.5 cm Mouna Baez APRN.MARINE ELECTRICIAN HELPER Work Phone: [facility] 06-30-2023 15:11-0400 Body mass index (BMI) [Ratio] 26.52 kg/m2 Mouna Baez APRN.MARINE ELECTRICIAN HELPER Work Phone: [facility] 06-30-2023 15:11-0400 Body weight 65.77 kg Mouna Baez APRN.MARINE ELECTRICIAN HELPER Work Phone: [facility] 06-30-2023 15:11-0400 Diastolic blood pressure 72 mm[Hg] Mouna Baez APRN.MARINE ELECTRICIAN HELPER Work Phone: [facility] 06-30-2023 15:11-0400 Heart rate 76 /min Mouna Baez APRN.MARINE ELECTRICIAN HELPER Work Phone: [facility] 06-30-2023 15:11-0400 SaO2% (BldA) [Mass fraction] 97 % Mouna Baez APRN.MARINE ELECTRICIAN HELPER Work Phone: [facility] Comment on above: on 3 L O2 06-30-2023 15:11-0400 Systolic blood pressure 146 mm[Hg] Mouna Baez APRN.MARINE ELECTRICIAN HELPER Work Phone: [facility] 04-23-2023 15:10-0500 Body height 157.5 cm Igor Johnson DO Work Phone: [facility] 04-23-2023 15:10-0500 Body weight 64.2 kg Igor Johnson DO Work Phone: [facility] 04-23-2023 15:10-0500 Diastolic blood pressure 80 mm[Hg] Igor Johnson DO Work Phone: [facility] 04-23-2023 15:10-0500 Heart rate 83 /min Igor Johnson DO Work Phone: [facility] 04-23-2023 15:10-0500 SaO2% (BldA) [Mass fraction] 96 % Igor Johnson DO Work Phone: [facility] 04-23-2023 15:10-0500 Systolic blood pressure 160 mm[Hg] Igor Johnson DO Work Phone: [facility] 01-19-2023 19:00-0500 Diastolic blood pressure 80 mm[Hg] Сергей Espinoza MD Work Phone: [facility] 01-19-2023 19:00-0500 Systolic blood pressure 152 mm[Hg] Сергей Espinoza MD Work Phone: [facility] 01-19-2023 18:41-0500 Body height 157.5 cm Сергей Espinoza MD Work Phone: [facility] 01-19-2023 18:41-0500 Body temperature 98.29 [degF] Сергей Espinoza MD Work Phone: [facility] 01-19-2023 18:41-0500 Body weight 64.86 kg Сергей Espinoza MD Work Phone: [facility] 01-19-2023 18:41-0500 Heart rate 89 /min Сергей Espinoza MD Work Phone: [facility] 01-19-2023 18:41-0500 Respiratory rate 16 /min Сергей Espinoza MD Work Phone: [facility] 01-19-2023 18:41-0500 SaO2% (BldA) [Mass fraction] 96 % Сергей Espinoza MD Work Phone: [facility] 11-28-2022 10:47-0400 Body weight 63.41 kg Sona Grier MD Work Phone: [facility] 11-28-2022 10:47-0400 Diastolic blood pressure 79 mm[Hg] Sona Grier MD Work Phone: [facility] 11-28-2022 10:47-0400 Heart rate 91 /min Sona Grier MD Work Phone: [facility] 11-28-2022 10:47-0400 SaO2% (BldA) [Mass fraction] 96 % Sona Grier MD Work Phone: [facility] 11-28-2022 10:47-0400 Systolic blood pressure 161 mm[Hg] Sona Grier MD Work Phone: [facility] 09-05-2022 16:15-0400 Diastolic blood pressure 86 mm[Hg] Brinda Dominguez APRN.MARINE ELECTRICIAN HELPER Work Phone: [facility] 09-05-2022 16:15-0400 Systolic blood pressure 146 mm[Hg] Brinda Dominguez APRN.MARINE ELECTRICIAN HELPER Work Phone: [facility] 09-05-2022 15:43-0400 Body height 158.8 cm Brinda Dominguez APRN.MARINE ELECTRICIAN HELPER Work Phone: [facility] 09-05-2022 15:43-0400 Body temperature 99.1 [degF] Brinda Dominguez APRN.MARINE ELECTRICIAN HELPER Work Phone: [facility] 09-05-2022 15:43-0400 Body weight 61.6 kg Brinda Dominguez APRN.MARINE ELECTRICIAN HELPER Work Phone: [facility] 09-05-2022 15:43-0400 Heart rate 92 /min Brinda Angelica SPRING FORGER.MARINE ELECTRICIAN HELPER Work Phone: [facility] 09-05-2022 15:43-0400 Respiratory rate 19 /min Brinda Angelica SPRING FORGER.MARINE ELECTRICIAN HELPER Work Phone: [facility] 09-05-2022 15:43-0400 SaO2% (BldA) [Mass fraction] 96 % Brinda Banerjeekaren SPRING FORGER.MARINE ELECTRICIAN HELPER Work Phone: [facility] 08-22-2022 16:57-0400 Diastolic blood pressure 76 mm[Hg] Сергей Espinoza MD Work Phone: [facility] 08-22-2022 16:57-0400 Systolic blood pressure 142 mm[Hg] Сергей Espinoza MD Work Phone: [facility] 08-22-2022 16:37-0400 Body height 158.8 cm Сергей Espinoza MD Work Phone: [facility] 08-22-2022 16:37-0400 Body temperature 97.81 [degF] Сергей Espinoza MD Work Phone: [facility] 08-22-2022 16:37-0400 Body weight 60.78 kg Сергей Espnioza MD Work Phone: [facility] 08-22-2022 16:37-0400 Heart rate 88 /min Сергей Espinoza MD Work Phone: [facility] 08-22-2022 16:37-0400 Respiratory rate 16 /min Сергей Espinoza MD Work Phone: [facility] 08-22-2022 16:37-0400 SaO2% (BldA) [Mass fraction] 94 % Сергей Espinoza MD Work Phone: [facility] 05-21-2022 13:26-0400 Diastolic blood pressure 70 mm[Hg] Сергей Espinoza MD Work Phone: [facility] 05-21-2022 13:26-0400 Systolic blood pressure 138 mm[Hg] Сергей Espinoza MD Work Phone: [facility] 05-21-2022 13:06-0400 Body height 158.8 cm Сергей Espinoza MD Work Phone: [facility] 05-21-2022 13:06-0400 Body temperature 98.2 [degF] Сергей Espinoza MD Work Phone: [facility] 05-21-2022 13:06-0400 Body weight 62.14 kg Сергей Espinoza MD Work Phone: [facility] 05-21-2022 13:06-0400 Heart rate 99 /min Сергей Espinoza MD Work Phone: [facility] 05-21-2022 13:06-0400 Respiratory rate 16 /min Сергей Espinoza MD Work Phone: [facility] 05-21-2022 13:06-0400 SaO2% (BldA) [Mass fraction] 94 % Сергей Espinoza MD Work Phone: [facility] 05-05-2022 15:26-0500 Diastolic blood pressure 72 mm[Hg] Cordt Skraba SPRING FORGER.MARINE ELECTRICIAN HELPER Work Phone: [facility] 05-05-2022 15:26-0500 Systolic blood pressure 168 mm[Hg] Cordt Skraba SPRING FORGER.MARINE ELECTRICIAN HELPER Work Phone: [facility] 05-05-2022 15:24-0500 Body height 158.8 cm Cordt Skraba SPRING FORGER.MARINE ELECTRICIAN HELPER Work Phone: [facility] 05-05-2022 15:24-0500 Body weight 61.2 kg Cordt Skraba SPRING FORGER.MARINE ELECTRICIAN HELPER Work Phone: [facility] 05-05-2022 15:24-0500 Heart rate 88 /min Cordt Skraba SPRING FORGER.MARINE ELECTRICIAN HELPER Work Phone: [facility] 05-05-2022 15:24-0500 Respiratory rate 16 /min Cordt Skraba SPRING FORGER.MARINE ELECTRICIAN HELPER Work Phone: [facility] 05-05-2022 15:24-0500 SaO2% (BldA) [Mass fraction] 95 % Cordt Skraba SPRING FORGER.MARINE ELECTRICIAN HELPER Work Phone: [facility] 04-20-2022 14:02-0500 Body mass index (BMI) [Ratio] 25.86 kg/m2 Unknown Unknown [facility] Work Phone: 04-20-2022 14:02-0500 Body surface area Derived from formula 1.69 m2 Unknown Unknown [facility] Work Phone: 04-20-2022 14:02-0500 Body temperature 100.7 [degF] Unknown Unknown [facility] Work Phone: 04-20-2022 14:02-0500 Body weight 66.23 kg Unknown Unknown [facility] Work Phone: 04-20-2022 14:02-0500 Diastolic blood pressure 78 mm[Hg] Unknown Unknown [facility] Work Phone: 04-20-2022 14:02-0500 Heart rate 96 /min Unknown Unknown [facility] Work Phone: 04-20-2022 14:02-0500 Respiratory rate 20 /min Unknown Unknown [facility] Work Phone: 04-20-2022 14:02-0500 SaO2% (BldA) [Mass fraction] 95 % Unknown Unknown [facility] Work Phone: 04-20-2022 14:02-0500 Systolic blood pressure 162 mm[Hg] Unknown Unknown [facility] Work Phone: 04-20-2022 14:02-0500 0 1 Unknown Unknown [facility] Work Phone: Comment on above: [facility] 03-31-2022 09:59-0500 Diastolic blood pressure 77 mm[Hg] Cordt Skraba SPRING FORGER.MARINE ELECTRICIAN HELPER Work Phone: [facility] 03-31-2022 09:59-0500 Heart rate 83 /min Cordt Skraba SPRING FORGER.MARINE ELECTRICIAN HELPER Work Phone: [facility] 03-31-2022 09:59-0500 SaO2% (BldA) [Mass fraction] 96 % Cordt Skraba SPRING FORGER.MARINE ELECTRICIAN HELPER Work Phone: [facility] 03-31-2022 09:59-0500 Systolic blood pressure 166 mm[Hg] Cordt Skraba SPRING FORGER.MARINE ELECTRICIAN HELPER Work Phone: [facility] 02-14-2022 15:02-0500 Diastolic blood pressure 64 mm[Hg] Сергей Espinoza MD Work Phone: [facility] 02-14-2022 15:02-0500 Systolic blood pressure 130 mm[Hg] Сергей Espinoza MD Work Phone: [facility] 02-14-2022 14:34-0500 Body height 160 cm Сергей Espinoza MD Work Phone: [facility] 02-14-2022 14:34-0500 Body temperature 97.5 [degF] Сергей Espinoza MD Work Phone: [facility] 02-14-2022 14:34-0500 Body weight 64.41 kg Сергей Espinoza MD Work Phone: [facility] 02-14-2022 14:34-0500 Heart rate 111 /min Сергей Espinoza MD Work Phone: [facility] 02-14-2022 14:34-0500 Respiratory rate 16 /min Сергей Espinoza MD Work Phone: [facility] 02-14-2022 14:34-0500 SaO2% (BldA) [Mass fraction] 94 % Сергей Espinoza MD Work Phone: [facility] 10-28-2021 13:42-0400 Body height 158.8 cm Sona Grier MD Work Phone: [facility] 10-28-2021 13:42-0400 Body weight 65.8 kg Sona Grier MD Work Phone: [facility] 10-28-2021 13:42-0400 Diastolic blood pressure 75 mm[Hg] Sona Grier MD Work Phone: [facility] 10-28-2021 13:42-0400 Heart rate 78 /min Sona Grier MD Work Phone: [facility] 10-28-2021 13:42-0400 SaO2% (BldA) [Mass fraction] 99 % Sona Grier MD Work Phone: [facility] 10-28-2021 13:42-0400 Systolic blood pressure 148 mm[Hg] Sona Grier MD Work Phone: [facility] 07-24-2021 15:42-0400 Diastolic blood pressure 80 mm[Hg] Kenyon Zuniga SPRING FORGER.MARINE ELECTRICIAN HELPER Work Phone: [facility] 07-24-2021 15:42-0400 Systolic blood pressure 139 mm[Hg] Kenyon Zuniga SPRING FORGER.MARINE ELECTRICIAN HELPER Work Phone: [facility] 07-24-2021 15:15-0400 Body temperature 97.5 [degF] Kenyon Zuniga SPRING FORGER.MARINE ELECTRICIAN HELPER Work Phone: [facility] 07-24-2021 15:15-0400 Body weight 65.82 kg Kenyon Zuniga APRN.MARINE ELECTRICIAN HELPER Work Phone: [facility] 07-24-2021 15:15-0400 Heart rate 109 /min Kenyon Zuniga APRN.MARINE ELECTRICIAN HELPER Work Phone: [facility] 07-24-2021 15:15-0400 Respiratory rate 16 /min Kenyon Zuniga APRN.MARINE ELECTRICIAN HELPER Work Phone: [facility] 07-24-2021 15:15-0400 SaO2% (BldA) [Mass fraction] 95 % Kenyon Zuniga APRN.CNP Work Phone: [facility] 05-30-2021 15:23-0400 Diastolic blood pressure 78 mm[Hg] Сергей Espinoza MD Work Phone: [facility] 05-30-2021 15:23-0400 Systolic blood pressure 150 mm[Hg] Сергей Espinoza MD Work Phone: [facility] 05-30-2021 14:25-0400 Body height 157.5 cm Сергей Espinoza MD Work Phone: [facility] 05-30-2021 14:25-0400 Body temperature 98.29 [degF] Сергей Espinoza MD Work Phone: [facility] 05-30-2021 14:25-0400 Body weight 65.77 kg Сергей Espinoza MD Work Phone: [facility] 05-30-2021 14:25-0400 Heart rate 101 /min Сергей Espinoza MD Work Phone: [facility] 05-30-2021 14:25-0400 Respiratory rate 16 /min Сергей Espinoza MD Work Phone: [facility] 05-30-2021 14:25-0400 SaO2% (BldA) [Mass fraction] 95 % Сергей Espinoza MD Work Phone: [facility] Encounters Encounter Date Encounter Type Care Provider Facility Start: 10-06-2024 ambulatory Anais DELGADO Facility:[facility] Start: 10-06-2024 Registered Referred Anais Osullivan MD -[facility] Start: 10-03-2024 ambulatory Сергей Posadas ty:[facility] Start: 10-03-2024 Registered Referred Stacie DANIELS -[facility] Start: 09-16-2024 End: 09-16-[address] Сергей Espinoza MD Work Phone: [facility] Start: 09-16-2024 End: 09-16-2024 Patient encounter procedure Stacie Chen [facility] Work Phone: Start: 09-14-2024 ambulatory Сергей Posadas ty:[facility] Start: 09-14-2024 Registered Referred Anais Osullivan MD [facility] Start: 09-13-2024 End: 09-13-[address] Сергей Espinoza MD Work Phone: [facility] Start: 09-13-2024 End: 09-13-2024 Patient encounter procedure Stacie Chen [facility] Work Phone: Start: 09-13-2024 ambulatory Сергей Posadas ty:[facility] Start: 09-13-2024 Registered Referred Stacie navarro [facility] Start: 08-08-2024 End: 08-08-[address] Сергей Espinoza MD Work Phone: [facility] Start: 08-08-2024 End: 08-08-2024 Patient encounter procedure Stacie Chen [facility] Work Phone: Start: 08-02-2024 End: 08-02-[address] Сергей Espinoza MD Work Phone: [facility] Start: 08-02-2024 End: 08-02-[address] Anais Osullivan MD -[facility] Work Phone: Start: 07-26-2024 End: 07-26-[address] Сергей Espinoza MD Work Phone: [facility] Start: 07-26-2024 End: 07-26-2024 [facility] Start: 07-19-2024 End: 07-19-[address] Сергей Espinoza MD Work Phone: [facility] Work Phone: Start: 07-19-2024 End: 07-19-2024 [facility] Start: 07-19-2024 End: 07-19-2024 ambulatory Сергей [place] Facility:[facility] Start: 06-30-2024 End: 06-30-[address] Сергей Espinoza MD Work Phone: [facility] Start: 06-30-2024 End: 06-30-2024 Patient encounter procedure Tj ELIAS [facility] Work Phone: Start: 05-31-2024 End: 05-31-2024 ambulatory [facility] Facility:[facility] Start: 05-31-2024 End: 05-31-[address] Anais Osullivan MD -[facility] Work Phone: Start: 05-17-2024 End: 05-17-[address] Сергей Espinoza MD Work Phone: [facility] Work Phone: Start: 05-17-2024 End: 05-17-2024 [facility] Start: 05-17-2024 End: 05-17-2024 ambulatory Сергей [place] Facility:[facility] Start: 05-11-2024 End: 05-11-2024 ambulatory [facility] Facility:[facility] Start: 05-11-2024 End: 05-11-2024 Patient encounter procedure Stacie DANIELS [facility] Work Phone: Start: 04-23-2024 ambulatory Anais DELGADO Facility:[facility] Start: 04-23-2024 [facility]istered [facility] Start: 04-21-2024 End: 04-21-2024 ambulatory Сергей Espinoza Facility:[facility] Start: 04-21-2024 End: 04-21-2024 Patient encounter procedure Stacie Chen NP-[facility] Work Phone: Start: 04-19-2024 ambulatory Сергей Espinoza Facili ty:[facility] Start: 04-19-2024 Registered Referred Anais Osullivan MD [facility] Start: 04-07-2024 [facility] Start: 04-07-2024 Registered Referred Anais Osullivan MD [facility] Start: 04-05-2024 End: 04-05-2024 ambulatory Сергей Olga Facility:[facility] Start: 04-05-2024 End: 04-05-[address] Anais Osullivan MD -[facility] Work Phone: Start: 03-04-2024 End: 03-04-2024 ambulatory Сергей Espinoza Facility:[facility] Start: 03-04-2024 End: 03-04-2024 Patient encounter procedure Stacie Chen NP-[facility] Work Phone: Start: 02-02-2024 End: 02-02-2024 ambulatory Anais Osullivan Facility:[facility] Start: 01-25-2024 End: 01-25-2024 Telephone encounter Sona Grier MD Work Phone: Pulmonary Medicine Comment on above: Release Of Medical R ecords ([facility]) Start: 01-19-2024 End: 01-19-2024 ambulatory Anais Osullivan OLS Facility:[facility] Start: 01-12-2024 End: 01-12-2024 ambulatory Stacie Chen NP Facility:[facility] Start: 12-31-2023 End: 12-31-2023 Telephone encounter Sona Grier MD Work Phone: Pulmonary Medicine Comment on above: Orders Start: 12-01-2023 End: 12-01-2023 ambulatory Anais Osullivan Facility:[facility] Start: 11-30-2023 End: 11-30-2023 Emergency department patient visit Сергей Olga Facility:[facility] Start: 11-30-2023 End: 11-30-2023 ambulatory Сергей Espinoza [place] Start: 11-03-2023 End: 11-03-2023 ambulatory Stacietru Reynoldscarrie CREW CHIEF [facility] Start: 10-29-2023 End: 10-29-2023 ambulatory Stacie Gustavo CREW CHIEF [facility] Start: 10-20-2023 ambulatory Anais DELGADO Facility:[facility] Start: 09-25-2023 End: 09-25-2023 ambulatory MOUNA VUONG Pulmonary Medicine Comment on above: Spirometry Start: 09-25-2023 End: 09-25-2023 Patient encounter procedure Pulm [facility] Work Phone: Pulmonary Medicine Comment on above: Idiopathic pulmonary fibrosis (HCC) (Primary Dx); Mild persistent asthma without complication; Chronic respiratory failure with hypoxia (HCC); Obstructive sleep apnea; Gastroesophageal reflux disease, unspecified whether esophagitis present Start: 09-25-2023 ambulatory SONA GRIER Facili ty:[facility] Start: 09-18-2023 End: 09-18-2023 ambulatory SONA GRIER Facility:[facility] Start: 09-18-2023 End: 09-18-2023 Subsequent hospital visit by physician Elfego [facility] ([facility]) Work Phone: Cat Scan Comment [...] ambulatory Сергей dolan MD Work Phone: Internal [facility] Comment on above: Medications Start: 08-10-2023 ambulatory Genevieve Fountain LPN NURSE SPORTS TRAINER Comment on above: Medication Problem Start: 07-25-2023 ambulatory Сергей dolan MD Work Phone: Internal [facility] Comment on above: Merna rodas edication question Start: 07-24-2023 ambulatory Sona baldwin MD Work Phone: Pulmonary Medicine Start: 07-24-2023 Patient encounter procedure Na smita Grier MD Work Phone: Pulmonary Medicine Comment on above: Appoint ment resched uled Start: 07-22-2023 Telephone encounter Сергей Espinoza MD Work Phone: Internal [facility] Comment on above: Forms (Direction [facility] agency on aging on disabilities ) Start: 07-21-2023 Refill Iadelaurie Hudson intz Jonathan SPRING FORGER.MARINE ELECTRICIAN HELPER Work Phone: [facility] Comment on above: Refill Request Start: 07-16-2023 Refill Aide Ana Tristan intz Jonathan SPRING FORGER.MARINE ELECTRICIAN HELPER Work Phone: [facility] Comment on above: Refill Request Start: 07-15-2023 Telephone encounter Neurology Provid er Neurology Comment on above: Received Outside Med ical Records (External referral to Neurological [place]/) Start: 07-14-2023 End: 07-14-2023 Refill Sona Grier MD Work Phone: Pulmonary Medicine Comment on above: Refill Request Fluticasone Start: 07-13-2023 ambulatory Сергей dolan MD Work Phone: [facility] Comment on above: Nurse Triage Call Start: 07-10-2023 Telephone encounter Сергей Espinoza MD Work Phone: Internal [facility] Comment on above: Results Start: 07-09-2023 End: 07-09-2023 ambulatory СЕРГЕЙ ESPINOZA Facility:[facility] Start: 07-09-2023 End: 07-09-2023 Office outpatient visit 25 minutes Сергей Espinoza MD Work Phone: Internal [facility] [place] Comment on above: Primary insomnia (Pr imary Dx); Frequent headaches; Essential hypertension; Mild persistent asthma without complication; Idiopathic pulmonary fibrosis (HCC); Chronic respiratory failure with hypoxia (HCC); Acquired hypothyroidism; Primary osteoarthritis of right hip; Recurrent major depressive disorder, in full remission (HCC); Anxiety; Encounter for immunization Start: 07-06-2023 ambulatory Сергей dolan MD Work Phone: Internal [facility] Comment on above: Blood test Start: 07-01-2023 End: 07-01-2023 ambulatory СЕРГЕЙ ESPINOZA Facility:[facility] Start: 06-30-2023 End: 06-30-2023 Office outpatient visit 25 minutes Mouna Baez APRN.MARINE ELECTRICIAN HELPER Work Phone: Cardiology Comment on above: Essential hypertensi on (Primary Dx); Pure hypercholesterolemia; Chronic respiratory failure with hypoxia (HCC); Obstructive sleep apnea; Palpitations Start: 06-30-2023 End: 06-30-2023 ambulatory Сергей Espinoza MD Work Phone: Internal Medicine [facility] Start: 06-26-2023 ambulatory Sona baldwin MD Work Phone: Pulmonary Medicine Comment on above: Coughing Start: 06-24-2023 Refill Aide Castillo APRN.MARINE ELECTRICIAN HELPER Work Phone: Internal [facility] [place] Comment on above: Refill Request Start: 06-19-2023 Telephone encounter Sona Grier MD Work Phone: Pulmonary Medicine Comment on above: Orders Start: 06-14-2023 ambulatory Сергей dolan MD Work Phone: Internal [facility] [place] Comment on above: Handicap placard Start: 06-11-2023 Refill Сергей dolan MD Work Phone: Internal [facility] Comment on above: Refill Request Yes prescription ref ills Start: 05-26-2023 End: 05-26-2023 ambulatory СЕРГЕЙ ESPINOZA Facility:[facility] Start: 05-25-2023 End: 05-25-2023 ambulatory СЕРГЕЙ [place] Facility:[facility] Start: 05-24-2023 ambulatory Ca manzo RN NURSE SPORTS TRAINER Comment on above: UTI Start: 05-18-2023 ambulatory Сергей dolan MD Work Phone: Internal [facility] Comment on above: My heart test Start: 05-13-2023 Refill Brinda manley SPRING FORGER.MARINE ELECTRICIAN HELPER Work Phone: Internal [facility] Comment on above: Refill Request Start: 05-09-2023 Refill Sona baldwin MD Work Phone: Pulmonary Medicine Comment on above: Refill Request Start: 05-08-2023 ambulatory Yant James SPRING FORGER.MARINE ELECTRICIAN HELPER Work Phone: Pulmonary Medicine Comment on above: Sinus problem and fi brosis question Refill Request Start: 05-04-2023 ambulatory Сергей dolan MD Work Phone: Internal [facility] Comment on above: Pain management Refill Request Start: 05-03-2023 ambulatory Сергей dolan MD Work Phone: Internal [facility] Comment on above: Pain management Start: 05-01-2023 ambulatory Сергей dolan MD Work Phone: Family [facility] Comment on above: Nurse Triage Call Start: 04-30-2023 ambulatory Сергей dolan MD Work Phone: Internal [facility] Comment on above: Cellulitis Start: 04-29-2023 ambulatory Сергей dolan MD Work Phone: Internal [facility] Comment on above: Sinsus Start: 04-23-2023 End: 04-23-2023 Refill Сергей Espinoza MD Work Phone: [facility] Comment on above: Refill Request DON (dyspnea on exer tion) (Primary Dx); Palpitations; Essential hypertension; Pure hypercholesterolemia; Obstructive sleep apnea; DNR (do not resuscitate) Start: 04-16-2023 ambulatory Сергей dolan MD Work Phone: [facility] Comment on above: Diarrhea Start: 04-14-2023 Refill Сергей dolan MD Work Phone: [facility] Comment on above: Refill Request Start: 04-06-2023 Refill Tomasa Ramirez SPRING FORGER.MARINE ELECTRICIAN HELPER Work Phone: Pulmonary Medicine Comment on above: Refill Request Start: 03-31-2023 Telephone encounter Sona Grier MD Work Phone: Pulmonary Medicine Comment on above: Patient Update Start: 02-19-2023 Refill Сергей dolan MD Work Phone: [facility] Comment on above: Refill Request Appointment Start: 02-12-2023 Refill Aide Castillo SPRING FORGER.MARINE ELECTRICIAN HELPER Work Phone: [facility] Comment on above: Refill Request Start: 02-06-2023 Refill Brinda manley SPRING FORGER.MARINE ELECTRICIAN HELPER Work Phone: [facility] Comment on above: Refill Request Start: 02-01-2023 ambulatory Vidya Mayes RN NURSE O N CALL Comment on above: Patient Update Start: 01-29-2023 ambulatory СЕРГЕЙ ESPINOZA Faci lity:[facility] Start: 01-29-2023 End: 01-29-2023 Subsequent hospital visit by physician [facility] Work Phone: Cardiology Lab Comment on above: SOB (shortness of br eath) [R06.02] Start: 01-21-2023 ambulatory Сергей dolan MD Work Phone: [facility] Comment on above: Prednisone Start: 01-19-2023 End: 01-19-2023 Office outpatient visit 25 minutes Сергей Espinoza MD Work Phone: Internal Medicine [place] Comment on above: Anxiety (Primary Dx) ; Encounter for immunization; Palpitations; Psoriasis; Primary hypertension; Sinus congestion Start: 01-12-2023 ambulatory Сергей dolan MD Work Phone: Internal [facility] [place] Comment on above: [facility] [place] Start: 01-02-2023 ambulatory Сергей dolan MD Work Phone: Internal Medicine [place] Comment on above: Fatigue Start: 12-30-2022 Telephone encounter Sona Grier MD Work Phone: Pulmonary Medicine Comment on above: Medication Problem Start: 12-18-2022 Refill Brinda manley APRN.CNP Work Phone: Internal [facility] [place] Comment on above: Refill Request Start: 12-16-2022 Telephone encounter Sona Grier MD Work Phone: Allergy Comment on above: Opened In Error Forms ([employer] - cpap ) Start: 12-08-2022 ambulatory СЕРГЕЙ Umana lity:[facility] Start: 12-02-2022 ambulatory Sona baldwin MD Work Phone: Pulmonary Medicine Comment on above: Merna Webster Start: 11-28-2022 Telephone encounter Sona Grier MD Work Phone: Pulmonary Medicine Comment on above: Patient Question Start: 11-28-2022 ambulatory СЕРГЕЙ Umana lity:[facility] Start: 11-28-2022 End: 11-28-2022 Subsequent hospital visit by physician Noé [facility] Radiology Comment on above: SOB (shortness of [...] of COVID-19 Start: 11-19-2022 Refill Aide Castillo APRN.MARINE ELECTRICIAN HELPER Work Phone: Internal Medicine [place] Comment on above: Refill Request Start: 11-18-2022 ambulatory Darling Samuels RN [facility] Start: 11-18-2022 Follow-up encounter Darling Samuels RN NURSE SPORTS TRAINER Comment on above: Follow Up Start: 11-17-2022 ambulatory Sona baldwin MD Work Phone: Pulmonary Medicine Comment on above: Cpap supplies Start: 11-17-2022 Telephone encounter Sona Grier MD Work Phone: Pulmonary Medicine Comment on above: Orders Start: 11-16-2022 ambulatory Kenyon Zuniga APRN.MARINE ELECTRICIAN HELPER Work Phone: [facility] Comment on above: Zoloft Start: 11-11-2022 ambulatory Сергей dolan MD Work Phone: [facility] Comment on above: Nurse Triage Call; B lood Pressure (/) Start: 11-10-2022 Telephone encounter Sona Grier MD Work Phone: Pulmonary Medicine Comment on above: Forms ([employer] - oxyg en) Start: 11-04-2022 ambulatory Sona baldwin MD Work Phone: [facility] Start: 11-04-2022 Patient encounter procedure Talia Grier MD Work Phone: Pulmonary Medicine Comment on above: Appointment Start: 10-27-2022 ambulatory Sona baldwin MD Work Phone: Pulmonary Medicine Comment on above: Migraine headaches Start: 10-24-2022 ambulatory СЕРГЕЙ Umana lity:[facility] Start: 10-24-2022 End: 10-24-2022 Office outpatient visit 25 minutes Al Woods PA-C Work Phone: Orthopaedics Comment on above: Primary osteoarthrit is of right shoulder (Primary Dx); Primary osteoarthritis of right hip; Primary osteoarthritis of right knee; Primary osteoarthritis of left knee Start: 10-24-2022 End: 10-24-2022 Subsequent hospital visit by physician Radio General Lillie Denise Work Phone: Radiology Comment on above: Chronic right should er pain [M25.511, G89.29] Pain [R52] Start: 10-23-2022 ambulatory Сергей dolan MD Work Phone: Internal Medicine [place] Comment on above: Fatigue Start: 10-22-2022 ambulatory Сергей dolan MD Work Phone: Internal Medicine [place] Comment on above: Excressive sleeping Start: 10-21-2022 Refill Brinda manley SPRING FORGER.MARINE ELECTRICIAN HELPER Work Phone: Internal Medicine [place] Comment on above: Refill Request Start: 10-20-2022 ambulatory Sona baldwin MD Work Phone: Pulmonary Medicine Comment on above: Oxygen and Cpap supp lies Start: 10-08-2022 Orders Only Al Woods PA-C Work Phone: Orthopaedics Comment on above: Pain (Primary Dx) Start: 10-07-2022 ambulatory [facility] Start: 10-01-2022 ambulatory [facility]Historical[facility] Start: 09-23-2022 Refill Tomasa Ramirez SPRING FORGER.MARINE ELECTRICIAN HELPER Work Phone: Pulmonary Medicine Comment on above: Refill Request Start: 09-11-2022 ambulatory Сергей dolan MD Work Phone: Internal [facility] Comment on above: Blood pressure Start: 09-08-2022 Telephone encounter Сергей Espinoza MD Work Phone: Internal Medicine [place] Comment on above: Medication Problem Start: 09-07-2022 Telephone encounter Brinda Dominguez SPRING FORGER.MARINE ELECTRICIAN HELPER Work Phone: [facility] Comment on above: Appointment Start: 09-05-2022 End: 09-05-2022 Office outpatient visit 25 minutes Brinda Dominguez SPRING FORGER.MARINE ELECTRICIAN HELPER Work Phone: [facility] Comment on above: Essential hypertensi on (Primary Dx); Primary osteoarthritis of both hips; DDD (degenerative disc disease), cervical; Closed fracture of one rib of left side with routine healing, subsequent encounter Start: 09-03-2022 End: 09-03-2022 Subsequent hospital visit by physician Noé [facility] Marcela Denise Work Phone: Radiology Comment on above: Right hip pain [M25. 551] Start: 08-23-2022 Refill Aide Castillo SPRING FORGER.MARINE ELECTRICIAN HELPER Work Phone: [facility] Comment on above: Refill Request Start: 08-22-2022 End: 08-22-2022 Office outpatient visit 25 minutes Сергей Espinoza MD Work Phone: [facility] Comment on above: Other fatigue (Prima ry Dx); Neck pain; Chronic nonintractable headache, unspecified headache type; Rib pain on left side Start: 08-21-2022 ambulatory Сергей dolan MD Work Phone: [facility] Comment on above: Nurse Triage Call My stomach and sever al bad headaches Start: 08-21-2022 Telephone encounter Сергей Espinoza MD Work Phone: [facility] Comment on above: DURABLE MEDICAL EQUI PMENT (CPAP supplies) Start: 08-15-2022 ambulatory Сергей dolan MD Work Phone: [facility] Comment on above: Nurse Triage Call Start: 08-14-2022 Refill Brinda manley SPRING FORGER.MARINE ELECTRICIAN HELPER Work Phone: [facility] Comment on above: Refill Request Upset stomach all th e time Start: 07-10-2022 Refill Сергей dolan MD Work Phone: [facility] Comment on above: Refill Request Start: 07-09-2022 ambulatory SONA GRIER Facili ty:[facility] Start: 07-09-2022 End: 07-09-2022 Subsequent hospital visit by physician [facility] Radiology Comment on above: Lung nodules [R91.8] Start: 07-08-2022 ambulatory Сергей dolan MD Work Phone: [facility] Start: 07-08-2022 Patient encounter procedure Na ana luisa Espinoza MD Work Phone: [facility] Comment on above: Appointment Start: 06-25-2022 Refill Brinda manley APRN.MARINE ELECTRICIAN HELPER Work Phone: [facility] Comment on above: Refill Request Start: 06-23-2022 ambulatory Сергей dolan MD Work Phone: [facility] Comment on above: Insurance Change for Start: 06-18-2022 ambulatory Сергей dolan MD Work Phone: Family [facility] Comment on above: Nurse Triage Call Start: 06-12-2022 Refill Сергей dolan MD Work Phone: [facility] Comment on above: Refill Request Start: 06-11-2022 Refill Rica ELIAS-New Work Phone: Orthopaedics Comment on above: Refill Request Start: 06-03-2022 ambulatory Сергей dolan MD Work Phone: [facility] Start: 06-03-2022 Patient encounter procedure Talia Espinoza MD Work Phone: [facility] Comment on above: Appointment Start: 05-26-2022 Refill Aide Castillo APRN.MARINE ELECTRICIAN HELPER Work Phone: [facility] Comment on above: Refill Request Start: 05-22-2022 End: 05-22-2022 Social Work [facility] Comment on above: Financial difficulty (Primary Dx) Pain in right hip [M 25.551] Start: 05-21-2022 End: 05-21-2022 Office outpatient visit 25 minutes Сергей Espinoza MD Work Phone: [facility] Comment on above: Idiopathic pulmonary fibrosis (HCC) (Primary Dx); Financial difficulties; Recurrent major depressive disorder, in full remission (HCC); Chronic respiratory failure with hypoxia (HCC); Essential hypertension; Anxiety Start: 05-10-2022 ambulatory Сергей dolan MD Work Phone: [facility] Comment on above: Lab test Start: 05-08-2022 End: 05-09-2022 ambulatory СЕРГЕЙ ESPINOZA Facility:[facility] Start: 05-08-2022 Telephone encounter Tomasa López ba, APRN.MARINE ELECTRICIAN HELPER Work Phone: Pulmonary Medicine Comment on above: Insurance Authorizat ion Start: 05-06-2022 ambulatory Сергей dolan MD Work Phone: Internal [facility] Start: 05-05-2022 End: 05-05-2022 Patient encounter procedure Tomasa Ramirez APRN.MARINE ELECTRICIAN HELPER Work Phone: Pulmonary Medicine Comment on above: Idiopathic pulmonary fibrosis (HCC) (Primary Dx); Chronic respiratory failure with hypoxia (HCC); Mild persistent asthma without complication; JENNY on CPAP; Lung nodule Start: 05-03-2022 ambulatory Sabine López RN NURSE SPORTS TRAINER Comment on above: Covid19 Concern Start: 05-01-2022 Refill Brinda manley APRN.MARINE ELECTRICIAN HELPER Work Phone: [facility] Comment on above: Refill Request Start: 04-29-2022 Refill Brinda manley APRN.MARINE ELECTRICIAN HELPER Work Phone: [facility] Comment on above: Refill Request Start: 04-25-2022 Refill Сергей dolan MD Work Phone: [facility] Comment on above: Refill Request Start: 04-24-2022 ambulatory Tomasa Ramirez APRN.MARINE ELECTRICIAN HELPER Work Phone: [facility] Start: 04-24-2022 Patient encounter procedure Co rdt James CLAIRE.MARINE ELECTRICIAN HELPER Work Phone: Pulmonary Medicine Comment on above: Appointment Start: 04-23-2022 ambulatory Сергей dolan MD Work Phone: Internal Medicine [place] Comment on above: Shingles Start: 04-20-2022 Office outpatient ne w 30 minutes Unknown Unknown [facility] Work Phone: Start: 04-20-2022 ambulatory UNKNOWN UNKNOWN [...] Telephone encounter Sona Grier MD Work Phone: [place] Provider Adult Comment on above: Appointment Start: 04-10-2022 End: 04-10-2022 Subsequent hospital visit by physician Elfego [facility] ([facility]) Work Phone: CT Scan Comment on above: Interstitial pulmona ry disease (HCC) [J84.9] Start: 04-03-2022 Telephone encounter Tomasa López ba, APRN.MARINE ELECTRICIAN HELPER Work Phone: Pulmonary Medicine Comment on above: Appointment Start: 04-01-2022 ambulatory Сергей dolan MD Work Phone: Family Medicine [place] Comment on above: Nurse Triage Call Start: 03-31-2022 ambulatory Сергей dolan MD Work Phone: [facility] Comment on above: My blood pressure Start: 03-31-2022 End: 03-31-2022 Patient encounter procedure Tomasa Ramirez APRN.MARINE ELECTRICIAN HELPER Work Phone: Pulmonary Medicine Comment on above: [...] above: Appointment Start: 02-27-2022 Refill Brinda manley SPRING FORGER.MARINE ELECTRICIAN HELPER Work Phone: [facility] Comment on above: Refill Request Start: 02-19-2022 Refill Brinda manley SPRING FORGER.MARINE ELECTRICIAN HELPER Work Phone: [facility] Comment on above: Refill Request Start: 02-14-2022 End: 02-14-2022 Patient encounter procedure Сергей Espinoza MD Work Phone: [facility] Comment on above: Trochanteric bursiti s of right hip (Primary Dx); Right hip pain; Essential hypertension; Anxiety Start: 01-31-2022 Refill Brinda manley SPRING FORGER.MARINE ELECTRICIAN HELPER Work Phone: [facility] Comment on above: Refill Request Start: 01-28-2022 End: 01-28-2022 ambulatory [facility] Comment on above: Radicular low back p ain (Primary Dx) Start: 12-31-2021 Refill Сергей dolan MD Work Phone: Internal [facility] Comment on above: Refill Request Start: 12-30-2021 End: 12-30-2021 Subsequent hospital visit by physician Radio General Lillie Denise Work Phone: Radiology Comment on above: Chronic pain of righ t knee [M25.561, G89.29] Start: 12-21-2021 ambulatory Сергей dolan MD Work Phone: [facility] Comment on above: Medication Euthyrox Start: 12-10-2021 Telephone encounter Сергей Espinoza MD Work Phone: [facility] Comment on above: Insurance Authorizat ion (Flovent Inhaler ) Start: 12-09-2021 Refill Сергей dolan MD Work Phone: [facility] Comment on above: Refill Request Start: 12-06-2021 ambulatory Сергей dolan MD Work Phone: [facility] Comment on above: Serrano Start: 12-05-2021 ambulatory Сергей dolan MD Work Phone: [facility] Start: 12-05-2021 Patient encounter procedure Talia Espinoza MD Work Phone: [facility] Comment on above: Appointment Start: 12-03-2021 ambulatory Сергей dolan MD Work Phone: [facility] Start: 12-03-2021 Patient encounter procedure Talia Espinoza MD Work Phone: [facility] Comment on above: Appointment Start: 12-02-2021 Refill Brinda Guerrero PA-C Work Phone: Pulmonary Medicine Comment on above: Refill Request Start: 12-01-2021 ambulatory Сергей dolan MD Work Phone: [facility] Comment on above: Not a question Start: 11-30-2021 Refill Сергей dolan MD Work Phone: [facility] Comment on above: Alprazolam Start: 11-28-2021 Refill Сергей dolan MD Work Phone: [facility] Comment on above: Refill Request Start: 11-26-2021 ambulatory Сергей dolan MD Work Phone: [facility] Comment on above: Right hip and leg Start: 11-14-2021 Telephone encounter Сергей Espinoza MD Work Phone: [facility] Comment on above: Medication Problem Start: 11-13-2021 Get Medical Advice Tonie Espinoza MD Work Phone: [facility] Comment on above: About refill. For Fl uticadone Problems innate HFA Inhalation Aerosol Start: 11-09-2021 ambulatory Сергей dolan MD Work Phone: [facility] Comment on above: Post covid syndrome Start: [...] 10-11-2021 Refill Сергей dolan MD Work Phone: [facility] Comment on above: Refill Request Pain in right hip an d leg also in groin area Start: 10-04-2021 Refill Brinda manley APRN.CNP Work Phone: [facility] Comment on above: Refill Request Serranoseda Webster Start: 09-20-2021 Refill Сергей dolan MD Work Phone: [facility] Comment on above: Refill Request Start: 09-20-2021 Refill Сергей dolan MD Work Phone: [facility] Comment on above: Refill Request Start: 09-18-2021 ambulatory Сергей dolan MD Work Phone: [facility] Comment on above: Fatigue Start: 09-05-2021 Refill Kenyon Zuniga APRN.MARINE ELECTRICIAN HELPER Work Phone: [facility] Comment on above: Refill Request Start: 08-06-2021 Refill Brinda manley SPRING FORGER.MARINE ELECTRICIAN HELPER Work Phone: [facility] Comment on above: Refill Request Start: 07-30-2021 ambulatory Сергей dolan MD Work Phone: [facility] Comment on above: Blood pressure Start: 07-28-2021 ambulatory Сергей dolan MD Work Phone: [facility] Comment on above: Blood pressure Start: 07-25-2021 Refill Brinda manley SPRING FORGER.MARINE ELECTRICIAN HELPER Work Phone: [facility] Comment on above: Refill Request Start: 07-24-2021 End: 07-24-2021 Office outpatient visit 25 minutes Kenyon Zuniga APRN.MARINE ELECTRICIAN HELPER Work Phone: [facility] Comment on above: Fatigue, unspecified type (Primary Dx); Essential hypertension; Obstructive sleep apnea; Anxiety Start: 07-23-2021 ambulatory Сергей dolan MD Work Phone: [facility] Comment on above: Fatigue Fatigued Start: 07-21-2021 Refill Sona baldwin MD Work Phone: Pulmonary Medicine Comment on above: Refill Request Start: 07-08-2021 Refill Brinda manley SPRING FORGER.MARINE ELECTRICIAN HELPER Work Phone: [facility] Comment on above: Refill Request Start: 07-04-2021 Telephone encounter Sona Grier MD Work Phone: Pulmonary Medicine Comment on above: Orders Start: 07-02-2021 Refill Сергей dolan MD Work Phone: [facility] Comment on above: Refill Request Start: 06-11-2021 Refill Сергей dolan MD Work Phone: [facility] Comment on above: Refill Request Start: 06-07-2021 Coordination of care plan Elder grant [facility] Primary Care Social Work Comment on above: Encounter for suppor t and coordination of transition of care (Primary Dx) Start: 06-07-2021 Telephone encounter Sona Grier MD Work Phone: Pulmonary Medicine Comment on above: Orders ([employer] ) Start: 06-06-2021 Refill Сергей dolan MD Work Phone: [facility] Comment on above: Refill Request multiple problems Start: 06-04-2021 ambulatory Сергей dolan MD Work Phone: Internal [facility] Comment on above: Merna Rdzr Start: 06-01-2021 ambulatory Сергей dolan MD Work Phone: Internal [facility] Comment on above: Blood pressure Start: 05-31-2021 ambulatory Сергей dolan MD Work Phone: Internal [facility] Comment on above: Test results Start: 05-30-2021 End: 05-30-2021 Patient encounter procedure Сергей Espinoza MD Work Phone: [facility] [place] Comment on above: Pure hypercholestero lemia (Primary Dx); Idiopathic pulmonary fibrosis (HCC); Chronic respiratory failure with hypoxia (HCC); Nonintractable headache, unspecified chronicity pattern, unspecified headache type; Anxiety; Primary insomnia; Obstructive sleep apnea; Recurrent major depressive disorder, in full remission (HCC); Acquired hypothyroidism Procedures Date Procedure Procedure Detail Performing Clinician Start: 10-03-[address] Noé Espinoza MD Work Phone: Start: 10-03-2024 Urnls dip stick/tabl et reagent auto microscopy Dr. Сергей Espinoza MD Work Phone: Start: 09-14-2024 Total iron binding c apacity [...] Sona Grier MD Work Phone: Start: 01-19-2023 [employer] COVI D-19 VACCINE (2022- SEASON) AGE 12+ [...] Author Start: 07-08-2026 Diabetes Screening Diabetes Screening [facility] Start: 05-24-2026 Diabetes Screening Diabetes Screening [facility] Start: 05-12-2026 Urine microalbumin profile [facility] Start: 08-22-2025 DIABETES SCREEN DIABETES SCREEN [facility] Start: 08-22-2025 Diabetes Screening Diabetes Screening [facility] Start: 10-28-2024 DIABETES SCREEN DIABETES SCREEN [facility] Start: 05-30-2024 DIABETES SCREEN DIABETES SCREEN [facility] Start: 03-29-2024 End: 03-29-2024 Patient encounter procedure 03/29/2024 1:30 PM EST Office Visit Pulmonary Medicine [address] [place] [id number] Kita Ocampo MD [address] [place] [id number] Interstitial pulmonary disease (HCC) [J84.9] Pulmonary Medicine Comment on above: Interstitial pulmonary disease (HCC) [J8 4.9] Start: 02-22-2024 End: 02-22-2024 Patient encounter procedure 02/22/2024 8:20 AM EST Office Visit Cardiology [address] [place] [id number] Roberto Howard MD [address], [address] [place] [address] SOB (shortness of breath) [R06.02] Cardiology Comment on above: SOB (shortness of breath) [R06.02] Start: 11-11-2023 End: 11-11-2023 Patient encounter procedure 11/11/2023 3:00 PM EDT Office Visit Internal Medicine [place] [address] [address] Сергей Espinoza MD [address] [place] [address] 4 mo follow up [facility] [place] Comment on above: 4 mo follow up Start: 11-05-2023 End: 11-05-2023 Patient encounter procedure 11/05/2023 3:00 PM EDT Office Visit Internal Medicine [place] [address] [address] Сергей Espinoza MD [address] [place] [address] 4 mo follow up [facility] [place] Comment on above: 4 mo follow up Start: 11-01-2023 Covid-19 Vaccine ( season) Covid-19 Vaccine ( season) [facility] Start: 11-01-2023 Covid-19 Vaccine ( season) Covid-19 Vaccine ( season) [facility] Start: 11-01-2023 Influenza vaccination Influenza Vaccine (#1) [facility] Start: 09-30-2023 End: 09-30-2023 Patient encounter procedure 09/30/2023 2:40 PM EDT Office Visit Cardiology [address] [place], [place] [phone] Igor Johnson DO [address] [place] [address] 3 month follow up Cardiology Comment on above: 3 month follow up Start: 09-25-2023 End: 09-25-2023 Patient encounter procedure 09/25/2023 3:00 PM EDT Office Visit Pulmonary Medicine [address] [address] Mouna Vuong APRN.MARINE ELECTRICIAN HELPER [address] [address] Interstitial pulmonary disease (HCC) [J84.9] Pulmonary Medicine Comment on above: Interstitial pulmonary disease (HCC) [J8 4.9] Start: 09-25-2023 End: 09-25-2023 ambulatory 09/25/2023 2:15 PM EDT Procedure Pulmonary Medicine [address] [address] Interstitial pulmonary disease (HCC) [J84.9] Pulmonary Medicine Comment on above: Interstitial pulmonary disease (HCC) [J8 4.9] Start: 09-25-2023 End: 09-25-2023 ambulatory [facility] Medicine Comment on above: Interstitial pulmonary disease (HCC) [J8 4.9] Start: 09-18-2023 End: 09-18-2023 Patient encounter procedure 09/18/2023 2:00 PM EDT Appointment Cat Scan [address] [place] [address] Interstitial pulmonary disease (HCC) [J84.9] [facility] Comment on above: Interstitial pulmonary disease (HCC) [J8 4.9] Start: 08-29-2023 End: 08-29-2023 Patient encounter procedure 08/29/2023 11:20 AM EDT Office Visit Internal [facility] [place] [address] [address] Сергей Espinoza MD [address] [place] [address] 3 month follow up [facility] [place] Comment on above: 3 month follow up Start: 08-28-2023 End: 08-28-2023 Patient encounter procedure 08/28/2023 2:30 PM EDT Office Visit Pulmonary Medicine [address] [address] Mouna Vuong APRN.MARINE ELECTRICIAN HELPER [address] [address] follow up Pulmonary Medicine Comment on above: follow up Start: 08-28-2023 End: 08-28-2023 ambulatory Pulmonary Medicine Comment on above: Interstitial pulmonary disease (HCC) [J8 4.9] Start: 08-18-2023 End: 08-18-2023 Patient encounter procedure 08/18/2023 2:20 PM EDT Appointment Cat Scan [address] [place] [address] Interstitial pulmonary disease (HCC) [J84.9] Cat Scan [...] 2:20 PM EDT Office Visit Internal Medicine [place] [address] [address] Сергей Espinoza MD [address] [place] [address] Getting things together to be able to go to [facility] and l also have to get approval for,Medicaid ok per Dr. espinoza [facility] [place] Comment on above: Getting things together to be able to go to [facility] and l also have to get approval for,Medicaid ok per Dr. espinoza Start: 07-13-2023 End: 10-12-2023 Urinalysis complete panel - Urine URINALYSIS, WITH MICROSCOPIC Lab Routine Dysuria Expected: 07/13/2023, Expires: 10/12/2023 [facility] Work Phone: Comment on above: Expected: 07/13/2023, Expires: Start: 07-13-2023 End: 07-13-2023 ambulatory 07/13/2023 1:15 PM EDT Results Only Marcela [place] [facility] [address] [place] [address] Marcela [place] [facility] Start: 07-10-2023 End: 10-09-2023 CBC W Auto Differential panel - Blood COMPLETE BLOOD COUNT AND DIFFERENTIAL Lab Routine Hyponatremia Anemia, unspecified type Expected: 07/10/2023, Expires: 10/09/2023 [facility] Comment on above: Expected: 07/10/2023, Expires: Start: 07-10-2023 End: 10-09-2023 Folate [Mass/volume] in Serum or Plasma FOLATE, SERUM Lab Routine Hyponatremia Anemia, unspecified type Expected: 07/10/2023, Expires: 10/09/2023 [facility] Comment on above: Expected: 07/10/2023, Expires: Start: 07-10-2023 End: 10-09-2023 Osmolality of Serum or Plasma OSMOLALITY Lab Routine Hyponatremia Anemia, unspecified type Expected: 07/10/2023, Expires: 10/09/2023 [facility] Comment on above: Expected: 07/10/2023, Expires: Start: 07-10-2023 End: 10-09-2023 Osmolality of Urine OSMOLALITY URINE Lab Routine Hyponatremia Anemia, unspecified type Expected: 07/10/2023, Expires: 10/09/2023 [facility] Comment on above: Expected: 07/10/2023, Expires: Start: 07-10-2023 End: 10-09-2023 RETICULOCYTE COUNT RETICULOCYTE COUNT Lab Routine Hyponatremia Anemia, unspecified type Expected: 07/10/2023, Expires: 10/09/2023 [facility] Comment on above: Expected: 07/10/2023, Expires: Start: 07-10-2023 End: 10-09-2023 Sodium [Moles/volume] in Urine collected for unspecified duration SODIUM RANDOM URINE Lab Routine Hyponatremia Anemia, unspecified type Expected: 07/10/2023, Expires: 10/09/2023 [facility] Work Phone: Comment on above: Expected: 07/10/2023, Expires: Start: 07-09-2023 End: 07-09-2023 Patient encounter procedure 07/09/2023 8:00 AM EDT Office Visit Internal Medicine [place] [address] [address] Сергей Espinoza MD [address] [place] [address] prison visit physical [place] per dr espinoza [facility] [place] Comment on above: prison visit physical [place] per dr loan dolan Start: 07-08-2023 End: 07-08-2023 ambulatory 07/08/2023 2:00 PM EDT Results Only [facility] [address] [place] [address] [facility] Start: 07-07-2023 End: 07-07-2023 ambulatory 07/07/2023 2:30 PM EDT Results Only [facility] [address] [place] [address] [facility] Start: 06-30-2023 End: 06-30-2023 Patient encounter procedure 06/30/2023 3:00 PM EDT Office Visit Cardiology [address] [address] Mouna Baez APRN.MARINE ELECTRICIAN HELPER [address] [id number] follow up Cardiology Comment on above: follow up Start: 06-30-2023 End: 09-29-2023 Lipid 1996 panel - Serum or Plasma LIPID PANEL BASIC Lab Routine Pure hypercholesterolemia Expected: 06/30/2023, Expires: 09/29/2023 [facility] Work Phone: Comment on above: Expected: 06/30/2023, Expires: Start: 05-20-2023 Covid-19 Vaccine () Covid-19 Vaccine () [facility] Start: 03-16-2023 Covid-19 Vaccine () Covid-19 Vaccine () [facility] Start: 03-02-2023 Advance Directive Discussion Advance Directive Discussion [facility] Start: 02-14-2023 ANNUAL PCP TEAM CHRONIC DISEASE VISIT ANNUAL PCP TEAM CHRONIC DISEASE VISIT [facility] Start: 12-13-2022 ANNUAL PCP TEAM CHRONIC DISEASE VISIT ANNUAL PCP TEAM CHRONIC DISEASE VISIT [facility] Start: 10-31-2022 Covid-19 Vaccine () Covid-19 Vaccine () [facility] Start: 10-31-2022 Influenza vaccination [facility] Start: 07-24-2022 ANNUAL PCP TEAM CHRONIC DISEASE VISIT ANNUAL PCP TEAM CHRONIC DISEASE VISIT [facility] Start: 07-09-2022 End: 05-11-2023 Ct thorax w/o contrast material [facility] Work Phone: Comment on above: Expected: 07/09/2022, Expires: 4 1 Occurrences starti ng 07/09/2022 until 07/09/2022 Start: 05-30-2022 ANNUAL PCP TEAM CHRONIC DISEASE VISIT ANNUAL PCP TEAM CHRONIC DISEASE VISIT [facility] Start: 05-06-2022 End: 07-06-2022 SCHEDULE LAB TESTING SCHEDULE LAB TESTING Lab Routine Expected: 05/06/2022, Expires: 07/06/2022 [facility] Work Phone: Comment on above: Expected: 05/06/2022, Expires: Start: 04-15-2022 COVID-19 VACCINE (5 - Pfizer series) COVID-19 VACCINE (5 - Pfizer series) [facility] Start: 03-02-2022 ADVANCE DIRECTIVE DISCUSSION ADVANCE DIRECTIVE DISCUSSION [facility] Start: 01-28-2022 End: 11-27-2022 Ct thorax w/o contrast material CT CHEST WO IVCON Radiology Routine Interstitial pulmonary disease (HCC) Expected: 01/28/2022, Expires: 11/27/2022 [facility] Work Phone: Comment on above: Expected: 01/28/2022, Expires: Start: 10-31-2021 Influenza vaccination [facility] Start: 07-04-2021 COVID-19 VACCINE (4 - Booster for Pfizer series) COVID-19 VACCINE (4 - Booster for Pfizer series) [facility] Start: 05-01-2021 COVID-19 VACCINE (4 - Booster for Pfizer series) COVID-19 VACCINE (4 - Booster for Pfizer series) [facility] Start: 10-31-2020 Influenza vaccination INFLUENZA (#1) [facility] Start: 2016 RSV Vaccine (1 - 1-dose 75+ series) RSV Vaccine (1 - 1-dose 75+ series) [facility] Start: 09-05-2007 Screening for osteoporosis Bone Density Screening [facility] Start: 2001 RSV Vaccine (1 - 1-dose 60+ series) RSV Vaccine (1 - 1-dose 60+ series) [facility] Start: 1959 BP CONTROLLED (<130/80) BP CONTROLLED (<130/80) [facility] Start: 1947 PNEUMOCOCCAL: 65+ (1 - PCV) PNEUMOCOCCAL: 65+ (1 - PCV) [facility] CT Chest WO contrast CT CHEST WO IVCON Radiology Routine Interstitial pulmonary disease (HCC) 09/18/2023 2:41 PM EDT [facility] Work Phone: End: 11-29-2023 ECG COMPLETE ECG COMPLETE ECG Routine SOB (shortness of breath) 1 Occurrences starting 11/28/2022 until 11/29/2023 [facility] Work Phone: Comment on above: 1 Occurrences starting 11/28/2022 until 11/29/2023 End: 11-29-2023 Echocardiography ECHO Cardiology Routine SOB (shortness of breath) 1 Occurrences starting 11/28/2022 until 11/29/2023 [facility] Work Phone: Comment on above: 1 Occurrences starting 11/28/2022 until 11/29/2023 End: 11-27-2022 LUNG DIFFUSION CAPACITY (DLCO) LUNG DIFFUSION CAPACITY (DLCO) PFT Routine Interstitial pulmonary disease (HCC) 1 Occurrences starting 10/28/2021 until 11/27/2022 [facility] Work Phone: Comment on above: 1 Occurrences starting 10/28/2021 until 11/27/2022 End: 06-04-2023 LUNG DIFFUSION CAPACITY (DLCO) LUNG DIFFUSION CAPACITY (DLCO) PFT Routine Idiopathic pulmonary fibrosis (HCC) Chronic respiratory failure with hypoxia (HCC) Mild persistent asthma without complication 1 Occurrences starting 05/05/2022 until 06/04/2023 [facility] Work Phone: Comment on above: 1 Occurrences starting 05/05/2022 until 06/04/2023 End: 11-27-2022 LUNG VOLUMES LUNG VOLUMES PFT Routine Interstitial pulmonary disease (HCC) 1 Occurrences starting 10/28/2021 until 11/27/2022 [facility] Work Phone: Comment on above: 1 Occurrences starting 10/28/2021 until 11/27/2022 End: 06-04-2023 LUNG VOLUMES LUNG VOLUMES PFT Routine Idiopathic pulmonary fibrosis (HCC) Chronic respiratory failure with hypoxia (HCC) Mild persistent asthma without complication 1 Occurrences starting 05/05/2022 until 06/04/2023 [facility] Work Phone: Comment on above: 1 Occurrences starting 05/05/2022 until 06/04/2023 OUTSIDE VENDOR CARDI AC OUTPATIENT EXTENDED RHYTHM RECORDING (WITHOUT TELEMETRY) OUTSIDE VENDOR CARDIAC OUTPATIENT EXTENDED RHYTHM RECORDING (WITHOUT TELEMETRY) Holter Routine Palpitations Ordered: 01/19/2023 [facility] Work Phone: Comment on above: Ordered: 01/19/2023 OUTSIDE VENDOR CARDI AC OUTPATIENT EXTENDED RHYTHM RECORDING (WITHOUT TELEMETRY) OUTSIDE VENDOR CARDIAC OUTPATIENT EXTENDED RHYTHM RECORDING (WITHOUT TELEMETRY) Holter Routine DON (dyspnea on exertion) Palpitations Essential hypertension Pure hypercholesterolemia Obstructive sleep apnea DNR (do not resuscitate) Ordered: 04/23/2023 [facility] Work Phone: Comment on above: Ordered: 04/23/2023 End: 04-30-2023 OXIMETRY WITH AMBULATION OXIMETRY WITH AMBULATION PFT Routine Chronic respiratory failure with hypoxia (HCC) 1 Occurrences starting 03/31/2022 until 04/30/2023 [facility] Work Phone: Comment on above: 1 Occurrences starting 03/31/2022 until 04/30/2023 End: 09-21-2023 Radex spine cervical 4 or 5 views XR CERV OTHER 4V AP/LAT/OBL Radiology Routine Neck pain 1 Occurrences starting 08/22/2022 until 09/21/2023 [facility] Work Phone: Comment on above: 1 Occurrences starting 08/22/2022 until 09/21/2023 End: 06-04-2023 SPIROMETRY - BASELINE AND POST DILATOR SPIROMETRY - BASELINE AND POST DILATOR PFT Routine Idiopathic pulmonary fibrosis (HCC) Chronic respiratory failure with hypoxia (HCC) Mild persistent asthma without complication 1 Occurrences starting 05/05/2022 until 06/04/2023 [facility] Work Phone: Comment on above: 1 Occurrences starting 05/05/2022 until 06/04/2023 End: 11-27-2022 SPIROMETRY WITH DILATOR IF OBSTRUCTED SPIROMETRY WITH DILATOR IF OBSTRUCTED PFT Routine Interstitial pulmonary disease (HCC) 1 Occurrences starting 10/28/2021 until 11/27/2022 [facility] Work Phone: Comment on above: 1 Occurrences starting 10/28/2021 until 11/27/2022 Transferrin [Mass/volume] in Serum or Plasma [facility] End: 03-16-2023 XR HIP BILATERAL 5V PEL/AP/LAT EACH HIP XR HIP BILATERAL 5V PEL/AP/LAT EACH HIP Radiology Routine Right hip pain 1 Occurrences starting 02/14/2022 until 03/16/2023 [facility] Work Phone: Comment on above: 1 Occurrences starting 02/14/2022 until 03/16/2023 End: 11-07-2023 XR KNEE GENERAL 4V AP BOTH/PA BOTH/LAT/MERC BILATERAL XR KNEE GENERAL 4V AP BOTH/PA BOTH/LAT/MERC BILATERAL Radiology Routine Pain 1 Occurrences starting 10/08/2022 until 11/07/2023 [facility] Work Phone: Comment on above: 1 Occurrences starting 10/08/2022 until 11/07/2023 End: 09-21-2023 XR RIBS/CHEST 3V AP RIB/OBLS/CXR LEFT XR RIBS/CHEST 3V AP RIB/OBLS/CXR LEFT Radiology Routine Rib pain on left side 1 Occurrences starting 08/22/2022 until 09/21/2023 [facility] Work Phone: Comment on above: 1 Occurrences starting 08/22/2022 until 09/21/2023 [facility] Immunizations Immunization Date Immunization Notes Care Provider [facility] 01-19-2023 COVID-19 vaccine, ag e 12+ yr, season ([employer]) Сергей Espinoza MD Work Phone: [facility] 11-12-2022 influenza (HD-IIV4) vaccine, age 65+ yr, high dose, quadrivalent, PF (FLUZONE HIGH-DOSE) Kenyon Zuniga APRN.[facility] Work Phone: [facility] 11-12-2022 influenza virus vacc ine, unspecified formulation Sona Grier MD Work Phone: [facility] 12-13-2021 COVID-19 booster vaccine, age 12+ yr, bivalent (PFIZER-BIONTECH) Сергей Espinoza MD Work Phone: [facility] 12-13-2021 influenza, high-dose , quadrivalent vaccine (FLUZONE HIGH DOSE QUADRIVALENT) Сергей Espinoza MD Work Phone: [facility] 12-13-2021 influenza virus vacc ine, unspecified formulation Сергей Espinoza MD Work Phone: [facility] 05-04-2020 COVID-19 vaccine, ag e 12+ yr (PFIZER-BIONTECH - PURPLE TOP) Сергей Espinoza MD Work Phone: [facility] Work Phone: 2020 COVID-19 vaccine, ag e 12+ yr (PFIZER-BIONTECH - PURPLE TOP) Сергей Espinoza MD Work Phone: [facility] 01-04-2020 influenza, high-dose , quadrivalent vaccine (FLUZONE HIGH DOSE QUADRIVALENT) Сергей Espinoza MD Work Phone: [facility] 11-03-2019 zoster vaccine recombinant Сергей Espinoza MD Work Phone: [facility] 08-18-2019 zoster vaccine recombinant Сергйе Espinoza MD Work Phone: [facility] 12-15-2018 influenza, high dose seasonal, preservative-free Сергей Espinoza MD Work Phone: [facility] 01-28-2018 influenza, high dose seasonal, preservative-free Сергей Espinoza MD Work Phone: [facility] 12-26-2016 influenza, high dose seasonal, preservative-free Сергей Espinoza MD Work Phone: [facility] Work Phone: 05-12-2016 tetanus toxoid, redu kit diphtheria toxoid, and acellular pertussis vaccine, adsorbed Сергей Espinoza MD Work Phone: [facility] 03-25-2016 influenza, high dose seasonal, preservative-free Сергей Espinoza MD Work Phone: [facility] 10-10-2014 pneumococcal conjuga te vaccine, 13 valent Сергей Espinoza MD Work Phone: [facility] 12-20-2013 influenza, seasonal, injectable Сергей Espinoza MD Work Phone: [facility] 12-20-2013 pneumococcal polysaccharide vaccine, 23 valent Сергей Espinoza MD Work Phone: [facility] 01-12-2012 influenza virus vacc ine, unspecified formulation Сергей Espinoza MD Work Phone: [facility] Work Phone: 12-14-2009 influenza virus vacc ine, unspecified formulation Сергей Espinoza MD Work Phone: [facility] Work Phone: 01-09-2007 influenza virus vacc natasha, unspecified formulation Сергей Espinoza MD Work Phone: [facility] 07-07-2006 pneumococcal polysaccharide vaccine, 23 valent Сергей Espinoza MD Work Phone: [facility] 12-31-2005 influenza virus vacc ine, unspecified formulation Сергей Espinoza MD Work Phone: [facility] 01-09-2005 influenza virus vacc ine, unspecified formulation Сергей Espinoza MD Work Phone: [facility] Work Phone: 12-05-2003 influenza virus vacc natasha, unspecified formulation Сергей Espinoza MD Work Phone: [facility] 12-17-2002 influenza virus vacc ine, unspecified formulation Сергей Espinoza MD Work Phone: [facility] Payers Date Payer Category Payer Unknown [id number] 2023 Unknown [id number] 2023 Self-pay 2023 Medicaid MEDICAID [facility] MEDICAID [id number] 2023-Present [phone] [address] [place] [address] Medicaid [id number] 2021 Medicare HUMANA MEDICARE HUMANA GOLD PLUS [id number] 2021-Present [phone] [address] [address] [place] [address] O [id number] 2020 Medicare [id number] 2020 Medicare [id number] 1940 Unknown [id number] Unknown [facility] PREFERRED MEDICARE PLAN Unknown [id number] Unknown [id number] Unknown [id number] 2.840.1.360139.3.579.2.462 Unknown [id number] 2.16840.1.549216.3.579.2.462 Unknown [id number] 2.16840.1.002789.3.579.2.462 Unknown [id number] 2.16840.1.804438.3.579.2.462 Unknown [id number] 2.840.1.369547.3.579.2.462 Unknown [id number] 2.16.840.1.476243.3.579.2.462 Unknown [id number] 2.16.840.1.402150.3.579.2.462 Unknown [id number] 2.16.840.1.678853.3.579.2.462 Unknown [id number] 2.16.840.1.237111.3.579.2.462 Unknown [id number] 2.16.840.1.935524.3.579.2.462 Unknown [id number] 2.16.840.1.612220.3.579.2.462 Unknown [id number] 2.16.840.1.425112.3.579.2.462 Unknown [id number] 2.16.840.1.378551.3.579.2.462 Unknown [id number] 2.16.840.1.940922.3.579.2.462 Unknown [id number] 2.16.840.1.441864.3.579.2.462 Unknown [id number] 2.16.840.1.961474.3.579.2.462 Unknown [id number] 2.16.840.1.086057.3.579.2.462 Unknown [id number] 2.16.840.1.991275.3.579.2.462 Unknown [id number] 2.16.840.1.132223.3.579.2.462 Unknown [id number] 2.16.840.1.479102.3.579.2.462 Unknown [id number] 2.16.840.1.035140.3.579.2.462 Unknown [id number] 2.16.840.1.266558.3.579.2.462 Unknown [id number] 2.16.840.1.015082.3.579.2.462 Unknown [id number] 2.16.840.1.260987.3.579.2.462 Unknown [id number] 2..840.1.630428.3.579.2.462 Unknown [id number] 2.16.840.1.326516.3.579.2.462 Unknown [id number] 2.16.840.1.263005.3.579.2.462 Unknown [id number] 2..840.1.590662.3.579.2.462 Social History Date Type Detail Facility Start: 02-15-2012 End: 09-17-2024 Tobacco smoking status NHIS Never smoked tobacco [facility] Start: 12-21-2020 End: 09-25-2023 Alcohol intake Current non-drinker of alcohol (finding) [facility] Start: 05-29-2021 End: 02-13-2022 History SDOH Alcohol Frequency 1 [facility] Start: 05-29-2021 End: 02-13-2022 History SDOH Alcohol Std Drinks 98 [facility] Start: 05-29-2021 End: 02-13-2022 History SDOH Social Connections Phone 5 [facility] Start: 05-29-2021 End: 02-13-2022 History SDOH Social Connections Get Together 2 [facility] Start: 05-29-2021 End: 02-13-2022 History SDOH Social Connections Rastafarian 3 [facility] Start: 05-29-2021 History SDOH Physical Activity DPW 7 [facility] Start: 05-17-2019 Education 12 [facility] Start: 1940 Sex Assigned At Female [facility] Start: 05-20-2021 End: 12-30-2021 Exposure to SARS-CoV-2 (event) Not sure [facility] Start: 02-15-2012 End: 03-24-2023 Tobacco use and exposure Smokeless tobacco non-user [facility] Start: 02-13-2022 History SDOH Alcohol Std Drinks 0 [facility] Start: 02-12-2022 End: 08-25-2023 Never a smoker Never a smoker [facility] Start: 02-12-2022 End: 08-25-2023 Social connection and isolation panel [facility] How often do you get together with friends or relatives? Patient refused [facility] Do you belong to any clubs or organizations such as baptism groups, unions, fraternal or athletic groups, or school groups? Yes [facility] Are you now , , , , never or living with a partner? [facility] How often to you hav e a drink containing alcohol? Never [facility] Do you feel stress - tense, restless, nervous, or anxious, or unable to sleep at night because your mind is troubled all the time - these days [OSQ] To some extent [facility] (I/We) worried casey er (my/our) food would run out before (I/we) got money to buy more. Never true [facility] At any time in the p ast 12 months, were you homeless or living in longterm [including now]? No [facility] Start: 03-30-2020 Gender identity Identifies as female gender (finding) [facility] Start: 03-30-2020 Sexual orientation Heterosexual (finding) [facility] History of tobacco use Passive smoker [facility] How hard is it for y ou to pay for the very basics like food, housing, medical care, and heating Not very hard [facility] Do you feel stress - tense, restless, nervous, or anxious, or unable to sleep at night because your mind is troubled all the time - these days [OSQ] Very much [facility] Do you feel stress - tense, restless, nervous, or anxious, or unable to sleep at night because your mind is troubled all the time - these days [OSQ] Only a little [facility] Start: 06-07-2024 Sex Female (finding) [facility] Goals Date Patient Goal Desired Activity /State Personal health goal Clinical Notes 05-22-2016 to 01-25-2024 Telephone Encounter - Lorene Jauregui LPN - 01/25/2024 8:29 AM ESTTelephone Encounter - Lorene Jauregui LPN - 01/25/2024 8:29 AM ESTTelephone Encounter - Elisabeth Barber MA - 12/31/2023 3:19 PM EDT Note Date & Type Note Facility 01-25-2024 Telephone encounter Note Fax received from [facility] requesting sleep study and office visit notes supporting use of cpap. Sleep study from 2015 as well as office visit notes from 11/28/22 and 09/25/23 faxed to [facility] at [phone]. Transmission successful, paperwork in fax drawer. [facility] 01-25-2024 Miscellaneous Notes Fax received from [facility] requesting sleep study and office visit notes supporting use of cpap. Sleep study from 2015 as well as office visit notes from 11/28/22 and 09/25/23 faxed to [facility] at [phone]. Transmission successful, paperwork in fax drawer. documented in this encounter [facility] 12-31-2023 Telephone encounter Note Fax received from [facility] for orders for Oxygen Concentrator and Supplies. E1390,E1392,A4615,A4616. 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 Placed in Dr. Grire's office to be signed. [facility] 12-31-2023 Miscellaneous Notes Fax received from [facility] for orders for Oxygen Concentrator and Supplies. E1390,E1392,A4615,A4616. 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 Placed in Dr. Grier's office to be signed. documented in this encounter [facility] 09-25-2023 History of Present illness Narrative [...] reports doing well. She moved into a prison with her at the beginning of June [...] spray Commonly known as: FLONASE Use 1 [place] in each nostril once daily. 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 Senior Svp: YURIDIA Transcribe Date/Time: Sep 24 2023 8:39A Dictated by : MIGUEL ROJO MD This examination was interpreted and the report reviewed and electronically signed by: MIGUEL ROJO MD on Sep 24 2023 12:05PM EST Results-Findings * * *Final Report* * * DATE OF EXAM: Sep 18 2023 2:41PM [facility] 0541 - CT CHEST WO [...] Neut (k/uL) Date Value 07/14/2023 4.78 Abs [place] (k/uL) Date Value 07/14/2023 0.80 12/21/2020 0.53 [...] of the patient and have reviewed the PA/TELEPHONE MESSENGER note. Agree with plan as stated BRANDON [facility] Pul[facility] documented in this encounter [facility] 09-25-2023 Note HNO ID: [id number] Author: OFELIA CRUZ APRN.CNP Service: ? Author Type: Nurse Practitioner Type: Progress Notes Filed: 09/26/2023 07:45 Note Text: Attestation signed by Mouna Vuong APRN.CNP at 09/26/2023 7:45 AM Attending Note I have personally performed a face to face assessment of the patient and have reviewed the PA/TELEPHONE MESSENGER note. Agree with plan as stated BRANDON [...] reports doing well. She moved into a prison with her at the beginning of June [...] information. erythromycin 5 (more content not included)... [facility] 09-25-2023 Note HNO ID: [id number] Author: ZAYRA MOON RRT Service: ? Author Type: Registered Resp Therapist Type: Progress Notes Filed: 09/25/2023 13:49 Note Text: PULM FUNCTION: Provider: Mouna Vuong APRN.CNP Spirometry: 1 DLCO: 1 LV - Box: 1 [facility] 09-25-2023 History of Present illness Narrative PULM FUNCTION: Provider: Mouna Vuong APRN.CNP Spirometry: 1 DLCO: 1 LV - Box: 1 documented in this encounter [facility] 09-18-2023 History of Present illness Narrative [...] PATIENT PRESENTS WITH AN IMPLANTABLE OR ATTACHED COMMERCIAL CREDIT HEAD: No RADIOLOGY DEPARTMENT: CT; Exam(s) Completed: Chest PERIPHERAL IV DATA: Not applicable SIGNED BY: RT Carlos(Ebony) September 18, 2023 3:06 PM documented in this encounter [facility] 09-18-2023 Note HNO ID: [id number] Author: CHEYENNE ROTH RT(Ebony) Service: ? Author Type: Produce Laborer Type: Progress Notes Filed: 09/18/2023 15:06 Note [...] PATIENT PRESENTS WITH AN IMPLANTABLE OR ATTACHED COMMERCIAL CREDIT HEAD: No RADIOLOGY DEPARTMENT: CT; Exam(s) Completed: Chest PERIPHERAL IV DATA: Not applicable SIGNED BY: RT Carlos(R) September 18, 2023 3:06 PM [facility] 09-15-2023 Telephone encounter Note No messages in chart from this office that patient was called recently. Looks like she has an appt for a scan in [place] this Thursday, may have been reminder call? [facility] 09-15-2023 Miscellaneous Notes No messages in chart from this office that patient was called recently. Looks like she has an appt for a scan in [place] this Thursday, may have been reminder call? Patient returning call from office Please advise documented in this encounter [facility] 09-15-2023 Telephone encounter Note Patient returning call from office Please advise [facility] 09-09-2023 Telephone encounter Note Spoke with [facility] Advised pt will be getting from another pharmacy, [facility] Spoke with munir Kate [facility] 09-09-2023 Miscellaneous Notes Spoke with [facility] pharmacy Advised pt will be getting from another pharmacy, [facility] Spoke with Lavinia, pharmacist Patient called in stating she wants to use [facility] Received request on 09/02/23 for esbriet from [facility] and this was sent in for a year's supply. Now [facility] requesting refills. Voicemail left for patient to return call to find out which pharmacy she is using for this prescription. Pharmacy verified in Epic The phone number for [facility] in case of any questions. [phone] Patient has been identified by name and [...] advise. Barbara Grayson documented in this encounter [facility] 09-07-2023 Telephone encounter Note Patient called in stating she wants to use [facility] 09-07-2023 Telephone encounter Note Received request on 09/02/23 for esbriet from [facility] and this was sent in for a year's supply. Now [facility] requesting refills. Voicemail left for patient to return call to find out which pharmacy she is using for this prescription. [facility] 09-07-2023 Telephone encounter Note Pharmacy verified in [facility] The phone number for [facility] in case of any questions. [phone] Patient has been identified by name and [...] lb) Not applicable Please advise. Barbara Grayson [facility] 09-02-2023 Telephone encounter Note Received a fax from [facility] requesting a refill on the following medication. Please file if appropriate. [facility] 09-02-2023 Miscellaneous Notes Received a fax from [facility] requesting a refill on the following medication. Please file if appropriate. documented in this encounter [facility] 08-26-2023 Telephone encounter Note Form faxed back to [facility]. Transmission with forms in drawer. [facility] 08-26-2023 Miscellaneous Notes Form faxed back to [facility]. Transmission with forms in drawer. Fax received from [facility] - form for refills for esbriet through [facility]. Form placed on dr grier's desk for review/signature. documented in this encounter [facility] 08-17-2023 Telephone encounter Note Fax received from [facility] - form for refills for esbriet through [facility]. Form placed on dr grier's desk for review/signature. [facility] 08-10-2023 Telephone encounter Note Pt would like Dr. Espinoza to know she is in a prison [facility]. Pt would like the doctor to call Stacie Nurse Practitioner at facility [phone], regarding pt's meds. Pt concerned CREW CHIEF would like to change medications. PT call back # [phone] Genevieve Fountain LPN [facility] 08-10-2023 Miscellaneous Notes Pt would like Dr. Espinoza to know she is in a prison [facility]. Pt would like the doctor to call Stacie Nurse Practitioner at facility [phone], regarding pt's meds. Pt concerned CREW CHIEF would like to change medications. PT call back # [phone] Genevieve Fountain LPN documented in this encounter [facility] 07-24-[address] Neris SINGLETON [facility] 07-24-[address] Neris SINGLETON documented in this encounter [facility] 07-23-2023 Telephone encounter Note Re-faxed with successful transmission [facility] 07-23-2023 Miscellaneous Notes Re-faxed with successful transmission [facility] is calling back and states that they did not receive the faxed form. Char asking to have the form faxed again. Char will be out of the office tomorrow. If you need to reach office, please contact Brinda Fernandez @ [phone] Request completed and faxed. Forms completed. In outbox. Thanks Сергей Espinoza MD Type of letter/form/fax request - Forms Form received from [facility] [employer] [facility] [employer] Placed on MD desk () for completion. Completed form needs to be faxed to [phone]. Route to [place] when form completed for processing documented in this encounter [facility] 07-23-2023 Telephone encounter Note [facility] is calling back and states that they did not receive the faxed form. Char asking to have the form faxed again. Char will be out of the office tomorrow. If you need to reach office, please contact Brinda Fernandez @ [phone] [facility] 07-23-2023 Telephone encounter Note Request completed and faxed. [facility] 07-23-2023 Telephone encounter Note Forms completed. In outbox. Thanks Сергей Espinoza MD [facility] 07-22-2023 Telephone encounter Note Type of letter/form/fax request - Forms Form received from [employer] Placed on MD desk () for completion. Completed form needs to be faxed to [phone]. Route to [place] when form completed for processing T [facility] 07-22-2023 Telephone encounter Note Pharmacy verified in [facility] Patient has been identified by name [...] Not applicable Please advise. Jaclyn Rose MA [facility] 07-22-2023 Miscellaneous Notes Pharmacy verified in [facility] Patient has been identified by name [...] Jaclyn Rose MA documented in this encounter [facility] 07-17-2023 Telephone encounter Note Pharmacy verified in [facility] Patient has been identified by name [...] Not applicable Please advise. Jaclyn Rose MA [facility] 07-17-2023 Miscellaneous Notes Pharmacy verified in [facility] Patient has been identified by name [...] Jaclyn Rose MA documented in this encounter [facility] 07-16-2023 Telephone encounter Note Referral source: Brayden Murdock MD ([facility]) Reason for visit: chronic migraine evaluation External records: Sent with referral Triage: Not required Financial clearance: Not required to schedule [facility] 07-16-2023 Miscellaneous Notes Referral source: Brayden Murdock MD ([facility]) Reason for visit: chronic migraine evaluation External records: Sent with referral Triage: Not required Financial clearance: Not required to schedule documented in this encounter [facility] 07-15-2023 Telephone encounter Note Last appointment: 07/09/23 Next appointment: 08/29/23 Pharmacy verified in [employer]. Refill(s) requested: Requested Prescriptions Pending Prescriptions Disp Refills nortriptyline (PAMELOR) 75 mg capsule 90 capsule 3 Sig: Take 1 capsule by mouth daily at bedtime. Order(s) pended. Please advise. Tana Julien MA, FIRMWARE ARCHITECT [facility] 07-15-2023 Miscellaneous Notes Last appointment: 07/09/23 Next appointment: 08/29/23 Pharmacy verified in [employer]. Refill(s) requested: Requested Prescriptions Pending Prescriptions Disp Refills nortriptyline (PAMELOR) 75 mg capsule 90 capsule 3 Sig: Take 1 capsule by mouth daily at bedtime. Order(s) pended. Please advise. Tana Julien MA, FIRMWARE ARCHITECT documented in this encounter [facility] 07-14-2023 Telephone encounter Note uLc, Just wanted to let you know your medication has been approved until the end of the year! Have a great day! [facility] 07-14-2023 Miscellaneous Notes Luc, Just wanted to let you know your medication has been approved until the end of the year! Have a great day! documented in this encounter [facility] 07-14-2023 Telephone encounter Note Last appointment: 07/29/23 Next appointment: 08/29/23 Pharmacy verified in [facility]. Refill(s) requested: Requested Prescriptions Pending Prescriptions Disp Refills triamcinolone acetonide (KENALOG) 0.5 % cream 15 g 1 Sig: Apply to affected area three times a day. Order(s) pended. Please advise. Tana Julien MA, FIRMWARE ARCHITECT [facility] 07-14-2023 Miscellaneous Notes Last appointment: 07/29/23 Next appointment: 08/29/23 Pharmacy verified in [facility]. Refill(s) requested: Requested Prescriptions Pending Prescriptions Disp Refills triamcinolone acetonide (KENALOG) 0.5 % cream 15 g 1 Sig: Apply to affected area three times a day. Order(s) pended. Please advise. Tana Julien MA, FIRMWARE ARCHITECT documented in this encounter [facility] 07-14-2023 Telephone encounter Note Prior auth was approved for the Fluticasone Prop HFA 110 MCG thru 03/01/2024. Scanned to [facility]. [facility] 07-14-2023 Miscellaneous Notes Prior auth was approved for the Fluticasone Prop HFA 110 MCG thru 03/01/2024. Scanned to [facility]. Pharmacy electronically requests the following refill(s) Requested Prescriptions Pending Prescriptions Disp Refills fluticasone (FLOVENT) 110 mcg/actuation inhaler 1 Each 11 Sig: Inhale 1 Puff as instructed two times a day. Shake well before use. Rinse mouth after use. Elisabeth Barber MA ERIS 03/24/[address] Grier follow up appt 07/22/2023 with Mouna Vuong. Please advise. documented in this encounter [facility] 07-14-2023 Telephone encounter Note Pharmacy electronically requests the following refill(s) Requested Prescriptions Pending Prescriptions Disp Refills fluticasone (FLOVENT) 110 mcg/actuation inhaler 1 Each 11 Sig: Inhale 1 Puff as instructed two times a day. Shake well before use. Rinse mouth after use. Elisabeth Barber MA ERIS 03/24/[address] Grier follow up appt 07/22/2023 with Mouna Vuong. Please advise. [facility] 07-13-2023 Telephone encounter Note I called pt and left detailed message about UA ordered [facility] 07-13-2023 Miscellaneous Notes I called pt [...] Protocols used: Information Only Call - No [id number] documented in this encounter [facility] 07-13-2023 Telephone encounter Note Urine ordered Сергей Espinoza MD [facility] 07-13-2023 Telephone encounter Note Answer Assessment [...] Protocols used: Information Only Call - No [id number] [facility] Work Phone: 07-10-2023 Telephone encounter Note Spoke with pt, reviewed below message. Verbalized understanding, no further questions. [facility] 07-10-2023 Miscellaneous Notes Spoke with pt, [...] Сергей Espinoza MD documented in this encounter [facility] 07-10-2023 Telephone encounter Note Please let [...] recheck her sodium. Thanks, Сергей Espinoza MD [facility] 07-09-2023 Note HNO ID: [id number] Author: СЕРГЕЙ ESPINOZA MD Service: ? Author Type: Physician Type: Progress Notes Filed: 07/09/2023 10:15 Note Text: ESTABLISHED PATIENT Merna Webster is a 83 year old female presenting for Group Home Evaluation HISTORY OF PRESENT ILLNESS Patient is moving in to [place] [employer]. Happy to be moving in with her as they have been apart for over 1 year. Going to pain medicine in [place]. Has arthritis in the right hip. Has [...] (FLONASE) 50 mcg/actuation nasal spray Use 1 [place] in each nostril once daily. betamethasone valerate [...] THERAPY, Please dis (more content not included)... [facility] 07-09-2023 History of Present illness Narrative ESTABLISHED PATIENT Merna Webster is a 83 year old female presenting for Group Home Evaluation HISTORY OF PRESENT ILLNESS Patient is moving in to [place] [employer]. Happy to be moving in with her as they have been apart for over 1 year. Going to pain medicine in [place]. Has arthritis in the right hip. Has [...] (FLONASE) 50 mcg/actuation nasal spray Use 1 [place] in each nostril once daily. betamethasone valerate [...] due on 03/16/2023 documented in this encounter [facility] 07-09-2023 Instructions Callie Taylor MA - 07/09/2023 8:07 AM EDT [facility] LAB TEST INFORMATION [facility] LAB HOURS: Lab is open: 7:30am to 5:00pm - , 7:30am to 4:00pm on Thu and 8am -12pm on Thu. The lab is located in [facility] on the first floor. There is a registration window at the lab, available 7 am to 3 pm Thursday - Thursday. If registration is unavailable at the lab, you may register at the patient registration office near the front lobby of the hospital. SCHEDULING A LAB APPOINTMENT: Laboratory appointments are recommended.Walk ins are still accepted. Call [phone] or schedule via [facility] scheduling ticket. ROUTINE LAB ORDERS 60 days [...] REFILL REQUESTS Request prescription refills through your [facility] account or contact your Pharmacy. My Chart Schedule My Appointment enables you to view your established primary care provider's open schedule and book an appointment online in real-time. This feature is available in internal medicine, family medicine, or pediatrics at any of our [facility] locations and main campus. documented in this encounter [facility] 07-09-2023 Note HNO ID: [id number] Author: CALLIE TAYLOR MA Service: ? Author Type: Provider Contracting Consultant Type: Progress Notes Filed: 07/09/2023 10:15 Note Text: RSV Vaccine(1 - 1-dose 60+ series) Never done Bone Density Screening due on 09/05/2007 Advance Directive Discussion due on 03/02/2023 Covid-19 Vaccine( season) due on 03/16/2023 [facility] 06-30-2023 Instructions Mouna Baez APRN.CNP - 06/30/2023 [...] with Dr. Espinoza documented in this encounter [facility] 06-30-2023 Note HNO ID: [id number] Author: MOUNA BAEZ APRN.MARINE ELECTRICIAN HELPER Service: ? Author Type: Nurse Practitioner Type: Progress Notes Filed: 07/03/2023 12:57 Note Text: [facility] [place] Shad[facility] Newman Department of Cardiovascular Medicine SECTION [...] which included preparing to see the patient, [id number] patient care, completing clinical documentation, performing a [...] prior to the follow up. Mouna Baez APRN.[facility] Cardiology Nurse Practitioner Section of Regional Cardiology [facility] Dept of Cardiovascular Medicine [facility] [place] [address] [place] [address] Office Office June 30, 2023 3:07 PM This note was partially generated using Myer voice recognition system and may contain errors related to that system including grammar, punctuation, spelling, and words that may be inappropriate. CARDIAC STUDIES: LV Ejection Fraction (%) Date Value 01/29/2023 57 01/24/2020 60 Last ECHO Result Conclusion ECHO Collected: 01/29/2023 2:02 PM (Final result) Impression: CONCLUSIONS: - Exam indication: Suspected pulmonary hypertension - The left ventricle is nor (more content not included)... [facility] 06-30-2023 History of Present illness Narrative Images from the original note were not included. [facility] [place] [facility] Department of Cardiovascular Medicine SECTION [...] which included preparing to see the patient, [id number] patient care, completing clinical documentation, performing a [...] prior to the follow up. Mouna Baez APRN.[facility] Cardiology Nurse Practitioner Section of Regional Cardiology [facility] Dept of Cardiovascular Medicine [facility] [place] [address] [place] [address] Office Office June 30, 2023 3:07 PM This note was partially generated using Myer voice recognition system and may contain errors [...] CHANGE WAS FOUND Confirmed by MD SAMANTHA, QAB ([id number]) on 12/08/2022 4:24:[address] Result Conclusion CT CHEST WO IVCON Exam End: 07/09/2022 4:25 PM (Final result) Impression: IMPRESSION: 1. 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 No significant interval change 2. No definite nodules are seen on this study 3. Findings are again compatible with Pulmonary arterial hypertension Senior Svp: YURIDIA Transcribe Date/Time: Jul 16 2022 1:20P Dictated by : FLORIN ROSSI, DO This examination was interpreted and the [...] and ROS obtained by others. Mouna Baez, SPRING FORGER.MARINE ELECTRICIAN HELPER CURRENT MEDICATIONS: Current Outpatient Medications Medication Sig [...] (FLONASE) 50 mcg/actuation nasal spray Use 1 [place] in each nostril once daily. betamethasone valerate [...] INTRAVENOUS DIRECTED PRN documented in this encounter [facility] 06-30-2023 Note Patient Outreach (IN TMMN) EMRNA [facility]BSTER ([id number]) 1940 F NFR Date Time Provider Department [...] [E78.00] Order(s):LIPID PANEL BASIC [SQLIPB] Order #: [id number] FUTURE Prescriptions as of 07/03/2023 - gabapentin [...] (FLONASE) 50 mcg/actuation nasal spray Use 1 [place] in each nostril once daily. 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 [facility] 06-29-2023 Telephone encounter Note Patient is scheduled [facility] 06-29-2023 Miscellaneous Notes Patient is scheduled [...] that day or sometime after breathing tests. Tomasa Vu APRN.MARINE ELECTRICIAN HELPER Patient does not have an appointment with a provider on 07/21 - appt is just for pfts. documented in this encounter [facility] 06-29-2023 Telephone encounter Note Called and [...] sometime after breathing tests. Thanks, Tomasa Ramirez APRN.MARINE ELECTRICIAN HELPER [facility] 06-29-2023 Telephone encounter Note Patient does not have an appointment with a provider on 07/21 - appt is just for pfts. [facility] 06-24-2023 Telephone encounter Note Pharmacy verified in [facility] Patient has been identified by name [...] 11/03/2019 100 Please advise. Maritza Jorgensen LPN [facility] 06-24-2023 Miscellaneous Notes Pharmacy verified in [...] Maritza Jorgensen LPN documented in this encounter [facility] 06-22-2023 Telephone encounter Note Forms faxed back to [facility]. Transmission with forms in drawer. [facility] 06-22-2023 Miscellaneous Notes Forms faxed back to [facility]. Transmission with forms in drawer. [facility] A7039, A7034, A7038, A7036, A7037, A7046, A9279, E0562, E0601 A7035, A7032 all for c-pap supplies placed in Dr. Grier'kathia in basket. documented in this encounter [facility] 06-19-2023 Miscellaneous Notes Order at hotel front desk agent, pt advised Order in outbox Сергей Espinoza MD documented in this encounter [facility] 06-19-2023 Telephone encounter Note [facility] for A7039, A7034, A7038, A7036, A7037, A7046, A9279, E0562, E0601 A7035, A7032 all for c-pap supplies placed in Dr. Grier'kathia in basket. [facility] 06-12-2023 Miscellaneous Notes PDMP website checked and validated. All prescriptions have been APPROPRIATELY filled. No suspicious activity was identified. 06/12/2023 by Сергей Espinoza MD Pharmacy verified in Epic Patient has been [...] Maritza Jorgensen LPN documented in this encounter [facility] 06-11-2023 Miscellaneous Notes Last appointment: 05/25/23 Next appointment: 08/29/23 Pharmacy verified in [employer]. Refill(s) requested: Requested Prescriptions Pending Prescriptions Disp Refills ALPRAZolam (XANAX) 1 mg tablet 90 tablet 0 Sig: Take 1 tablet by mouth three times a day as needed for sedation or anxiety for up to 30 days. Order(s) pended. Please advise. Stacey Shaffer MA, FIRMWARE ARCHITECT documented in this encounter [facility] 05-25-2023 Note HNO ID: [id number] Author: СЕРГЕЙ ESPINOZA MD Service: ? Author Type: Physician Type: Progress Notes Filed: 05/31/2023 21:42 Note Text: ESTABLISHED PATIENT Merna Webster is a 83 year old female presenting for Follow Up. HISTORY OF PRESENT ILLNESS Here with relative Patient thinks she has another UTI. Was recently in [place] ER. Had chills the other night. Has [...] 160/80 03/24/2023 157/76 Hoping to get into prison this summer. Has some issues with ADLs. [...] fluticasone (FLONASE) 50 mcg/actuation nasal sprayUse 1 [place] in each nostril once daily.Disp: 1 EachRfl: [...] tablet (100 mg) (more content not included)... [facility] 05-25-2023 Note HNO ID: [id number] Author: CALLIE TAYLOR MA Service: ? Author Type: Provider Contracting Consultant Type: Progress Notes Filed: 05/31/2023 21:42 Note Text: RSV Vaccine(1 - 1-dose 60+ series) Never done Advance Directive Discussion due on 03/02/2023 Covid-19 Vaccine( season) due on 03/16/2023 [facility] 05-24-2023 Miscellaneous Notes Reason for Call: Pt [...] : na. Protocols used: Urination Pain - [id number] documented in this encounter [facility] 05-13-2023 Miscellaneous Notes Last appointment: 02/27/23 Next appointment: 05/22/23 Pharmacy verified in [employer]. Refill(s) requested: Requested Prescriptions Pending Prescriptions Disp Refills ALPRAZolam (XANAX) 1 mg tablet 90 tablet 0 Sig: Take 1 tablet by mouth three times a day as needed for sedation or anxiety for up to 30 days. Order(s) pended. Please advise. Tana Julien MA, FIRMWARE ARCHITECT documented in this encounter [facility] 05-12-2023 Miscellaneous Notes pended See patient comment and please pend needed meds. Last appointment: 01/19/23 Next appointment: 05/22/23 Pharmacy verified in [employer]. Refill(s) requested: Requested Prescriptions Pending Prescriptions Disp Refills triamcinolone acetonide (KENALOG) 0.5 % cream 15 g 1 Sig: Apply to affected area three times a day. fluticasone furoate (ARNUITY ELLIPTA) 100 mcg/actuation inhaler 3 Each 4 Sig: Inhale 1 Puff as instructed once daily. Order(s) pended. Please advise. Destiny Asencio LPN, [facility] documented in this encounter [facility] 05-11-2023 Miscellaneous Notes Patient requests via [...] with a provider. documented in this encounter [facility] 05-04-2023 Miscellaneous Notes See other encounter documented in this encounter [facility] 05-04-2023 Miscellaneous Notes Spoke with patient. Patient stated they are already seeing a pain management doctor [facility]. Dr. Butler. Patient declined scheduling. Thanks Negrita Becerril PSS: Please call pt and assist in scheduling for pain management. documented in this encounter [facility] 05-04-2023 Miscellaneous Notes Pharmacy verified in [employer]. Patient has been identified by name and [...] Navya Burr MA documented in this encounter [facility] 05-01-2023 Miscellaneous Notes Addressed in triage encounter. Sabine Goyal RN Please triage. Thanks, Brinda Dominguez APRN.MARINE ELECTRICIAN HELPER documented in this encounter [facility] 05-01-[address] Olga blackwood [...] start to look infected?" Since ERIS with Angelica 6. MECHANISM: "How did the wound start, [...] last menstrual period?" Protocols used: Wound Infection [id number] documented in this encounter [facility] 04-29-2023 Miscellaneous Notes Noted/agree. Brinda Dominguez APRN.MARINE ELECTRICIAN HELPER Called and spoke to pt. Runny nose [...] weight. Please triage. documented in this encounter [facility] 04-23-2023 Note HNO ID: [id number] Author: IGOR JOHNSON DO Service: ? Author Type: Physician Type: Progress Notes Filed: 04/24/2023 09:54 Note Text: [facility] SECTION OF [facility] CARDIOLOGY [facility] OUTPATIENT VISIT DATE April 23, 2023 PRIMARY CARE PHYSICIAN: Сергей Espinoza [address] [place] [address] HISTORY OF PRESENT ILLNESS: Ms. Webster is [...] currently alone as her resides in a prison due to challenges with him having inability [...] for immunocompromised state. (more content not included)... [facility] 04-23-2023 Nurse Note EVENT MONITOR DISPOSABLE PATCH INSTRUCTIONS Patient Name: Merna Blackwood [facility] Number: [id number] Skin prepped and cleansed with alcohol Patch secured to prepped area Monitor Activated Serial #: [id number] Patient Instructed: Prescribed order timeframe Bathing guidelines Usage of event button and diary documentation Return of monitor at the end of prescribed order Call with problems [phone] or [phone]. [phone] Patient expresses a good understanding of instructions Hayes Rubio LPN documented in this encounter [facility] 04-23-2023 History of Present illness Narrative Images from the original note were not included. [facility] SECTION OF [facility] CARDIOLOGY [facility] OUTPATIENT VISIT DATE April 23, 2023 PRIMARY CARE PHYSICIAN: [address] [place] [address] HISTORY OF PRESENT ILLNESS: Ms. Webster is [...] currently alone as her resides in a prison due to challenges with him having inability [...] fluticasone (FLONASE) 50 mcg/actuation nasal spray^Use 1 [place] in each nostril two times a day.^Disp: [...] 1 Device^Rfl: 0 Igor Johnson DO, FACC, FACOI Field Hockey And Lacrosse Coach, [facility] Ambulatory Cardiology Field Hockey And Lacrosse Coach, [facility] Cardiac Rehabilitation Field Hockey And Lacrosse Coach, [facility] Cardiac Rehabilitation Field Hockey And Lacrosse Coach, [facility] Field Hockey And Lacrosse Coach, [facility] Ambulatory Cardiology Clinical Bioinformatics Software Engineer [employer] of Medicine, [facility] - [facility] Staff Regional Geodetic Advisor, Shadia Lyle Department of Cardiovascular Medicine/[facility] [place], [facility] Please note: This note has been produced using speech recognition software and may contain errors related to that system including kim, punctuation, spelling, words, gender and phrases that may be inappropriate. documented in this encounter [facility] 04-23-2023 Miscellaneous Notes Last appointment: 02/27/23 Next appointment: 05/04/23 Pharmacy verified in Epic. Refill(s) requested: Requested Prescriptions Pending Prescriptions Disp Refills betamethasone valerate 0.1 % ointment 15 g 1 Sig: Apply to affected area two times a day. Order(s) pended. Please advise. Tana Julien MA, [facility] documented in this encounter [facility] 04-16-2023 Miscellaneous Notes Pt left on [...] / day more than normal) Protocols used: [id number] documented in this encounter [facility] 04-14-2023 Miscellaneous Notes PDMP website checked and validated. All prescriptions have been APPROPRIATELY filled. No suspicious activity was identified. 04/14/2023 by Brinda Dominguez APRN.MARINE ELECTRICIAN HELPER Last appointment: 02/27/23 Next appointment: 05/04/23 Pharmacy verified in Epic. Refill(s) requested: Requested Prescriptions Pending Prescriptions Disp Refills ALPRAZolam (XANAX) 1 mg tablet 90 tablet 0 Sig: Take 1 tablet by mouth three times a day as needed for sedation or anxiety for up to 30 days. Order(s) pended. Please advise. Tana Julien MA, FIRMWARE ARCHITECT documented in this encounter [facility] 03-31-2023 Miscellaneous Notes I had a online chat session with Dona from [employer]. She states they don't show any Compliance report on Merna. The reason may be her machine does not transmit electronically and don't have a the Nokori card on the patient to download the information. Just an FYI. documented in this encounter [facility] 02-13-2023 Miscellaneous Notes PDMP website checked and validated. All prescriptions have been APPROPRIATELY filled. No suspicious activity was identified. 02/13/2023 by Brinda Dominguez APRN.MARINE ELECTRICIAN HELPER Last appointment: 01/19/23 Next appointment: 05/04/23 Pharmacy verified in [facility]. Refill(s) requested: Requested Prescriptions Pending Prescriptions Disp Refills ALPRAZolam (XANAX) 1 mg tablet 90 tablet 0 Sig: Take 1 tablet by mouth three times a day as needed for sedation or anxiety for up to 30 days. Order(s) pended. Please advise. Tana Julien MA, FIRMWARE ARCHITECT documented in this encounter [facility] 02-06-2023 Miscellaneous Notes Last appointment: 01/19/23 [...] Garcia LPN, CMA documented in this encounter [facility] 02-01-2023 Miscellaneous Notes Reason for Call: Patient calling with request for covid questions. Patient denies any new or worsening symptoms of which a provider is not aware: Yes. documented in this encounter [facility] 01-19-2023 History of Present illness Narrative [...] - 1-dose 60+ series) Never done Covid-19 Vaccine( season) due on 10/31/2022 documented in this encounter [facility] 01-19-2023 Instructions Callie Taylor - 01/19/2023 6:35 PM EST [facility] TEST INFORMATION [facility] HOURS: Lab is open: 7:30am to 5:00pm M - , 7:30am to 4:00pm on Thu and 8am -12pm on Thu. The lab is located in [facility] on the first floor. There is a registration window at the lab, available 7 am to 3 pm Thursday - Thursday. If registration is unavailable at the lab, you may register at the patient registration office near the front lobby of the hospital. SCHEDULING A LAB APPOINTMENT: Laboratory appointments are recommended.Walk ins are still accepted. Call [phone] or schedule via [facility] scheduling ticket. ROUTINE LAB ORDERS 60 days [...] REFILL REQUESTS Request prescription refills through your [facility] account or contact your Pharmacy. My Chart Schedule My Appointment enables you to view your established primary care provider's open schedule and book an appointment online in real-time. This feature is available in internal medicine, family medicine, or pediatrics at any of our [facility] locations and main campus. documented in this encounter [facility] 01-06-2023 Miscellaneous Notes Spoke with patient, said she doesn't need to reschedule now. Please my chart, assist patient with rescheduling Patient is scheduled Please help patient get an appt Сергей Espinoza MD documented in this encounter [facility] 12-30-2022 Miscellaneous Notes We received a fax stating 2022 [employer] Formulary has changed for Flovent Alternative Drug is Arnuity Ellipta. Form to be scanned in chart tomorrow and placed in drawer. FYI. documented in this encounter [facility] 12-18-2022 Miscellaneous Notes PDMP website checked and validated. All prescriptions have been APPROPRIATELY filled. No suspicious activity was identified. 12/18/2022 by Brinda Dominguez APRN.MARINE ELECTRICIAN HELPER Last appointment: 11/12/22 Next appointment: 01/19/23 Pharmacy verified in [facility]. Refill(s) requested: Requested Prescriptions Pending Prescriptions Disp Refills ALPRAZolam (XANAX) 1 mg tablet 90 tablet 0 Sig: Take 1 tablet by mouth three times a day as needed for sedation or anxiety for up to 30 days. Order(s) pended. Please advise, thank you. Cha TAYLOR December 18, 2022 11:34 AM documented in this encounter [facility] 12-17-2022 Miscellaneous Notes Form was completed, form, Last oV note, and sleep studies from [address] [facility] Fax Confirmation was received and forms were placed in the fax drawer. Fax received from [facility] - form for cpap order. Form placed on dr grier's desk for review/signature. documented in this encounter [facility] 12-17-2022 Miscellaneous Notes There are MANY other phone encounters regarding this. Order and supporting documents have been sent to [facility] several times, have spoken with [facility] several times regarding this as well as with the patient many times. As documented in previous phone encounter, yesterday afternoon we received a faxed form for the cpap settings - this was placed in dr grier's inbox to await completion. Hi my name is Joanne I'm calling with [facility] in regards to Isis Webster. Date of [...] an order request. Our phone number is [phone]. Thank you and have a good day." Patient needs a new script for CPAP sent to her durable medical supplier. documented in this encounter [facility] 12-16-2022 Miscellaneous Notes Opened i documented in this encounter [facility] 12-08-2022 Miscellaneous Notes Called and spoke with 2 different reps at [facility] - they both confirm they did receive [...] rings with no answer. Called back and [facility] rep states she does not know why no one is answering the phone. She suggests patient go to the [facility] office directly - I did let rep know that it appears their office is an hour drive away for patient, this is not an acceptable option. States she will send an email to the person who handles cpap orders to try to find out why this was not sent to patient. documented in this encounter [facility] 11-28-2022 Miscellaneous Notes Done. I will nd her a message. thanks Medication was set up and preferred pharmacy was selected. Please advise. Patient was in office today and is asking if azythromycin and prednisone can be sent to [facility] in [place] instead of [facility]? She also states she takes medicine for her migraines and is asking if that medication is safe to take with the azythromycin and prednisone? Please advise, patient states to just send her a message on Eatt letting her know. documented in this encounter [facility] 11-28-2022 Note HNO ID: [id number] Author: Lucia Han RT(R) Service: Radiology Author Type: Produce Laborer Type: Progress Notes Filed: 11/28/2022 12:12 PM [...] RT Louann(R) November 28, 2022 12:11 PM [facility] 11-28-2022 History of Present illness Narrative [...] 2022 12:11 PM documented in this encounter [facility] 11-28-2022 History of Present illness Narrative Images from the original note were not included. [facility] ESTABLISHED PATIENT OFFICE VISIT 11/28/2022 Patient Name: Merna Webster PRIMARY CARE PHYSICIAN: Сергей Espinoza MD CHIEF COMPLAINT: asthma-IPF f/up HISTORY OF PRESENT ILLNESS: Since the last visit with dc on 09/2021, Ms. Webster has been having [...] and during nighttime Living by herself- at prison Nephew accompanying her today- discussed other possibilities [...] are again compatible with Pulmonary arterial hypertension Senior Svp: YURIDIA Transcribe Date/Time: Jul 16 2022 1:20P Dictated by : FLORIN LARRICK, DO This examination was interpreted and the [...] C 7. Post Covid syndrome Referral to [place] discussed Referral to functional medicine discussed improving 8. H/o covid infection November 2020 Did not require hsopitalization check echocardiogram 9. Palpitataions Ecg today Referral to cardiology Sona Grier MD, CHAYO Staff, [facility] [place] [facility] documented in this encounter [facility] 11-19-2022 Miscellaneous Notes PDMP website checked and validated. All prescriptions have been APPROPRIATELY filled. No suspicious activity was identified. 11/19/2022 by Brinda Dominguez APRN.MARINE ELECTRICIAN HELPER Last appointment: 11/12/22 Next appointment: 12/24/22 Pharmacy verified in [facility]. Refill(s) requested: Requested Prescriptions Pending Prescriptions Disp Refills ALPRAZolam (XANAX) 1 mg tablet 90 tablet 0 Sig: Take 1 tablet by mouth three times daily as needed for sedation or anxiety for up to 30 days. Order(s) pended. Please advise,thank you. Cha TAYLOR November 19, 2022 2:27 PM documented in this encounter [facility] 11-18-2022 Miscellaneous Notes Reason: Patient calling [...] Patient notes that her recently went to prison and that she is anxious as she [...] have any questions, you can call Nurse production assembly operator back. documented in this encounter [facility] 11-17-2022 Miscellaneous Notes . documented in this encounter [facility] 11-17-2022 Miscellaneous Notes 17 pages sent over to [employer] at fax # [phone] Please send CPAP supply orders to her [employer] company Thank you documented in this encounter [facility] 11-17-2022 Miscellaneous Notes Addended by: KENYON ZUNIGA on: 11/17/2022 04:17 PM Modules accepted: Orders documented in this encounter [facility] 11-11-2022 Miscellaneous Notes Images from the original note were not included. Merna Webster "Merna Webster" P [facility] (supporting Сергей Espinoza MD) Yesterday [...] worried about some news received from the prison that Zach was exposed to Covid, so [...] >= 100 Protocols used: Blood Pressure - [id number]-[id number]-PR documented in this encounter [facility] 11-10-2022 Miscellaneous Notes Completed forms received from dr grier and faxed back to [facility]. Transmission successful, paperwork in fax drawer. Fax received from [facility] - form for oxygen order [id number], [id number], [id number], [id number]. Form placed on dr grier's desk for review/signature. documented in this encounter [facility] 11-05-2022 Miscellaneous Notes Second attempt at contacting patient, left VM to schedule sooner with an CREW CHIEF if she would like First attempt: left message for patient to call back and schedule appointment documented in this encounter [facility] 10-30-2022 Miscellaneous Notes Reply to Pt has been sent. documented in this encounter [facility] 10-24-2022 Note HNO ID: [id number] Author: Mouna Kenney Tech Service: Radiology Author Type: Produce Laborer Type: Progress Notes Filed: 10/24/2022 2:46 PM [...] Octavio Dale October 24, 2022 2:45 PM [facility] 10-24-2022 History of Present illness Narrative Associated Order(s): Large Joint Arthro/Inj: R knee joint Images from the original note were not included. SERVICE DATE: October 24, 2022 PCP: Сергей Espinoza MD Patient was self-referred. Large Joint Arthro/Inj: R knee joint Informed Consent Consent Obtained: Verbal [place] Protocol A moment to CARE was completed. [...] - New, Knee Pain PAIN EVALUATION 10/24/2022 3910 Pain Level: -- 6-8/10-Bilat Knee, right shoulder [...] TIME: 3:57 PM documented in this encounter [facility] 10-24-2022 History of Present illness Narrative [...] 2022 2:45 PM documented in this encounter [facility] 10-23-2022 Miscellaneous Notes See triage documented in this encounter [facility] 10-23-2022 Miscellaneous Notes Called to triage/discuss, no answer, left [facility] message: l am having a problem with [...] Protocols used: No Contact or Duplicate Contact [id number] documented in this encounter [facility] 10-21-2022 Miscellaneous Notes Last appointment: 09/29/22 Next appointment: 01/19/23 Pharmacy verified in [facility]. Refill(s) requested: Requested Prescriptions Pending Prescriptions Disp Refills ALPRAZolam (XANAX) 1 mg tablet 90 tablet 0 Sig: Take 1 tablet by mouth three times daily as needed for sedation or anxiety for up to 30 days. Order(s) pended. Please advise. Cha TAYLOR October 21, 2022 3:28 PM documented in this encounter [facility] 10-07-2022 History of Present illness Narrative POPULATION HEALTH NAVIGATION OUTREACH Action/FYI 2nd call, left vm Patient Identified by Name and : NO Outreach Outcome/Action Unable to reach patient: Left message Mobile Captainhart message sent Did you use a PCP flex slot to schedule this appointment? No Reason for Outreach Care Gap or Scheduling/Wellness visits Payer: Payor: [employer] MEDICARE / Plan: [employer]NA [place] PLUS / Product Type: HMO / Care Gap Reviewed:: Specialty Scheduling Reminder: Reminder note to check Health Maintenance for items below Health Maintenance items due: COVID-19 VACCINE(5 - Pfizer series) due on 04/15/2022 Navigation Signature: Joanne Iyer October 07, 2022 3:04 PM documented in this encounter [facility] 10-01-2022 History of Present illness Narrative POPULATION HEALTH NAVIGATION OUTREACH Action/FYI Left vm Patient Identified by Name and : NO Outreach Outcome/Action Unable to reach patient: Left message Mobile Captainhart message sent Did you use a PCP flex slot to schedule this appointment? No Reason for Outreach Care Gap or Scheduling/Wellness visits Payer: Payor: HUMANA MEDICARE / Plan: HUMANA GOLD PLUS / Product Type: HMO / Care Gap Reviewed:: Specialty Scheduling Reminder: Reminder note to check Health Maintenance for items below Health Maintenance items due: COVID-19 VACCINE(5 - Pfizer series) due on 04/15/2022 Navigation Signature: Joanne Iyer October 01, 2022 9:47 AM documented in this encounter [facility] 09-26-2022 Miscellaneous Notes Last OV 05/05/2022 F/U 10/27/2022 Patient's pharmacy requesting refills as follows: Requested Prescriptions Pending Prescriptions Disp Refills pirfenidone (ESBRIET) 801 mg tablet [Pharmacy Med Name: PIRFENIDONE 801MG Tablet] 90 tablet 5 Sig: TAKE 1 TABLET BY MOUTH 3 TIMES A DAY Please review and advise. Namrata Barber MA documented in this encounter [facility] 09-12-2022 Miscellaneous Notes Please review and advise documented in this encounter [facility] 09-09-2022 Miscellaneous Notes Spoke to pharmacist, [...] tablet by mouth twice daily Contact Lillie Bah. Indigo Mena documented in this encounter [facility] 09-07-2022 Miscellaneous Notes Please change patient's appointment with me on 10/[address] Espinoza. If he doesn't have any openings, ok to use a virtual slot on a afternoon for OV. Thanks, Brinda Dominguez APRN.MARINE ELECTRICIAN HELPER documented in this encounter [facility] 09-05-2022 History of Present illness Narrative [...] for new or worsening symptoms Brinda Dominguez APRN.MARINE ELECTRICIAN HELPER There are no preventive care reminders to display for this patient. documented in this encounter [facility] 09-03-2022 History of Present illness Narrative [...] 2022 3:55 PM documented in this encounter [facility] 08-25-2022 Miscellaneous Notes PDMP website checked and validated. All prescriptions have been APPROPRIATELY filled. No suspicious activity was identified. 08/25/2022 by Brinda Dominguez APRN.MARINE ELECTRICIAN HELPER Pharmacy verified in [facility]. Patient has been identified by name and [...] Navya Burr MA documented in this encounter [facility] 08-22-2022 History of Present illness Narrative [...] for this patient. documented in this encounter [facility] 08-22-2022 Instructions Сергей Espinoza MD - 08/22/2022 4:33 PM EDT Start with gabapentin (for nerve pain), prednisone (for sinus congestion and neck pain), and doxycycline (for sinus congestion). If you don't start feeling better or your blood pressure remains high start clondinine. [facility] TEST INFORMATION [facility] HOURS: Lab is open: 7:30am to 5:00pm - , 7:30am to 4:00pm on Thu and 8am -12pm on Thu. The lab is located in [facility] on the first floor. There is a registration window at the lab, available 7 am to 3 pm Thursday - Thursday. If registration is unavailable at the lab, you may register at the patient registration office near the front lobby of the hospital. SCHEDULING A LAB APPOINTMENT: Laboratory appointments are recommended.Walk ins are still accepted. Call [phone] or schedule via [facility] scheduling ticket. ROUTINE LAB ORDERS 60 days [...] REFILL REQUESTS Request prescription refills through your [facility] account or contact your Pharmacy. My Chart Schedule My Appointment enables you to view your established primary care provider's open schedule and book an appointment online in real-time. This feature is available in internal medicine, family medicine, or pediatrics at any of our [facility] locations and main campus. documented in this encounter [facility] 08-21-2022 Miscellaneous Notes See Triage note Please triage Anai Cohen LPN documented in this encounter [facility] 08-21-2022 Miscellaneous Notes Patient had a [...] Protocols used: Information Only Call - No Sqqpif-[id number]-RU documented in this encounter [facility] 08-21-2022 Miscellaneous Notes Neil thomas [employer] called with the name of the new DME for the patient's CPAP supplies. It is [employer]. Ph. #[phone] documented in this encounter [facility] 08-16-2022 Miscellaneous Notes Unable to reach [...] control pill, broken condom) N/A Protocols used: Ltvlwh-HXAHW-GG Unable to reach, asked her to CB From [employer] message Dr Espinoza can you help me [...] Initial Assessment Questions Returning patient's call from [employer] message. Protocols used: No Contact or Duplicate Contact [id number]-[id number]-[id number] documented in this encounter [facility] 08-15-2022 Miscellaneous Notes See Triage message Please triage. It does not appear as though this has been addressed recently? More than likely patient would benefit from a visit to discuss. documented in this encounter [facility] 08-14-2022 Miscellaneous Notes Pharmacy verified in [facility] Patient has been identified by name [...] Maritza Jorgensen LPN documented in this encounter [facility] 07-11-2022 Miscellaneous Notes Last appointment: 05/21/22 Next appointment: 07/14/22 Pharmacy verified in [facility]. Refill(s) requested: Requested Prescriptions Pending Prescriptions Disp Refills nortriptyline (PAMELOR) 75 mg capsule [Pharmacy Med Name: NORTRIPTYLINE HCL 75 MG Capsule] 90 capsule 3 Sig: TAKE 1 CAPSULE AT BEDTIME Order(s) pended. Please advise. Destiny Asencio LPN documented in this encounter [facility] 07-09-2022 Note HNO ID: [id number] Author: RT Kindra(R) Service: Radiology Author Type: Produce Laborer Type: Progress Notes Filed: 07/09/2022 4:24 PM [...] RT Kindra(R) July 09, 2022 4:24 PM [facility] 07-09-2022 History of Present illness Narrative [...] 2022 4:24 PM documented in this encounter [facility] 06-25-2022 Miscellaneous Notes PDMP website checked and validated. All prescriptions have been APPROPRIATELY filled. No suspicious activity was identified. 06/25/2022 by Brinda Dominguez APRN.MARINE ELECTRICIAN HELPER Pharmacy verified in Epic Patient has been [...] Rajat Ramirez Ma documented in this encounter [facility] 06-25-2022 Miscellaneous Notes Left VM and MyChart message for patient to bring in the updated insurance information with her to her 06/30 appt. documented in this encounter [facility] 06-18-2022 Miscellaneous Notes Spoke to patient who was advised of provider's message and verbalized understanding. Advised to call back with new, worsening, or persistent symptoms. Meds reviewed. New script sent for imitrex. Please have patient follow up for persistent or worsening symptoms. Thanks, Brinda Dominguez APRN.MARINE ELECTRICIAN HELPER Triaged patient. Migraine started two days ago. [...] new script can be sent to pharmacy. [phone] Sabine Goyal RN Reason for Disposition [1] [...] your last menstrual period?" NO Protocols used: Qmrhubik-YEFJM-LS documented in this encounter [facility] 06-12-2022 Miscellaneous Notes Last appointment: 06/24/22 Next appointment: 05/21/22 Pharmacy verified in [facility]. Refill(s) requested: Requested Prescriptions Pending Prescriptions Disp Refills verapamil SR (CALAN SR) 240 mg CR tablet 90 tablet 2 Sig: Take 1 tablet by mouth daily at bedtime. Order(s) pended. Please advise. Lorene Mendieta MA, FIRMWARE ARCHITECT documented in this encounter [facility] 06-11-2022 Miscellaneous Notes Like we talked about in the office, she can increase the meloxicam to 15 mg (2 tablets) daily, assuming the medication is not giving her any stomach upset. Her other options would be to see one of our suergons to discuss hip replacemnt or to see pain management to discuss pain control. documented in this encounter [facility] 05-27-2022 Miscellaneous Notes PDMP website checked and validated. All prescriptions have been APPROPRIATELY filled. No suspicious activity was identified. 05/27/2022 by Brinda Dominguez APRN.MARINE ELECTRICIAN HELPER Pharmacy verified in Epic Patient has been [...] Jaclyn Rose MA documented in this encounter [facility] 05-22-2022 Note HNO ID: [id number] Author: ELFEGO Self Service: Radiology Author Type: [...] ELFEGO Self May 22, 2022 3:03 PM [facility] 05-22-2022 History of Present illness Narrative [...] stated she was driving and placed this sign writer letterer or painter on speaker phone. Pt will call this sign writer letterer or painter 05/23 in the morning to further discuss. PCSW will remain available. INTERVENTION: Defers assessment at this time Time Spent:: 5 minutes SIGNATURE: JAIRON Cerrato PATIENT NAME: Merna Webtser DATE: May 22, 2022 TIME: 2:30 PM CONTACT #: [phone] documented in this encounter [facility] 05-22-2022 History of Present illness Narrative [...] 2022 3:03 PM documented in this encounter [facility] 05-21-2022 History of Present illness Narrative [...] Has financial problems. Problems with being in prison. Taking xanax as needed for anxiety ASSESSMENT: (J84.112) Idiopathic pulmonary fibrosis (HCC) (primary encounter diagnosis) (Z59.9) Financial difficulties (F33.42) Recurrent major depressive disorder, in full remission (HCC) (J96.11) Chronic respiratory failure with hypoxia ([facility]) (I10) Essential hypertension PLAN: Follow up pulm. [...] due on 03/02/2022 documented in this encounter [facility] 05-21-2022 Instructions Callie Taylor - 05/21/2022 1:06 PM EDT [facility] TEST INFORMATION [facility] HOURS: Lab is open: 7:30am to 5:00pm M - , 7:30am to 4:00pm on Thu and 8am -12pm on Thu. The lab is located in [facility] on the first floor. There is a registration window at the lab, available 7 am to 3 pm Thursday - Thursday. If registration is unavailable at the lab, you may register at the patient registration office near the front lobby of the hospital. SCHEDULING A LAB APPOINTMENT: Laboratory appointments are recommended.Walk ins are still accepted. Call [phone] or schedule via [facility] scheduling ticket. ROUTINE LAB ORDERS 60 days [...] REFILL REQUESTS Request prescription refills through your [facility] account or contact your Pharmacy. My Chart Schedule My Appointment enables you to view your established primary care provider's open schedule and book an appointment online in real-time. This feature is available in internal medicine, family medicine, or pediatrics at any of our [facility] locations and main campus. documented in this encounter [facility] 05-12-2022 Miscellaneous Notes Noted documented in this encounter [facility] 05-08-2022 Miscellaneous Notes PA completed on [employer] for Levalbuterol Tartrate 45MCG/ACT aerosol Approvedtoday PA Case: [id number], Status: Approved, Coverage Starts on: 03/02/2022 12:00:00 AM, Coverage Ends on: 03/01/2023 12:00:00 AM. Questions? Contact . documented in this encounter [facility] 05-05-2022 History of Present illness Narrative Images from the original note were not included. [facility]IC[facility] ESTABLISHED PATIENT OFFICE VISIT 05/05/2022 Patient Name: Merna Webster PRIMARY CARE PHYSICIAN: Серегй Espinoza MD CHIEF COMPLAINT: Patient presents with: [...] from that office visit were as follows: (González84.112) Idiopathic pulmonary fibrosis (HCC) (primary encounter diagnosis) [...] 1994 Hysterectomy, RAPHAEL - menorrhagia & fibroids FAMILY [...] COVID-19 booster vaccine, age 12+ yr, bivalent (PFIZER-BIONTJule Game) 12/13/2021 COVID-19 original vaccine, age 12+ yr, monovalent (PFIZER-BIONTJule Game - PURPLE TOP) 2020 05/04/2020 03/06/2021 Influenza [...] by: Tomasa Ramirez APRN.CNP [facility] documented in this encounter [facility] 05-03-2022 Miscellaneous Notes Reason for Call: Covid Exposure Outcome: Home Care Recommendation. Interim Care Advice given. Patient has an apt with Slide Attendant on Thursday. Reason for Disposition [1] COVID-19 EXPOSURE within last 14 days AND [2] NO symptoms Answer Assessment - Initial Assessment Questions 1. COVID-19 EXPOSURE: in a halfway facility and some residents in the facility [...] 13. TRAVEL: no Protocols used: Coronavirus (COVID-19) [id number] documented in this encounter [facility] 05-01-2022 Miscellaneous Notes Patient requesting refills as follow: Last prescribed : 02/03/22 Last OV: 02/14/22 Next OV: 05/21/22 Requested Prescriptions Pending Prescriptions Disp Refills esomeprazole (NEXIUM) 40 mg capsule 90 capsule 2 Sig: Take 1 capsule by mouth daily before breakfast. Please review and advise. Charleen Cruz Ma documented in this encounter [facility] 04-29-2022 Miscellaneous Notes Pharmacy verified in [facility] Patient has been identified by name [...] Tati Mark Ma documented in this encounter [facility] 04-25-2022 Miscellaneous Notes Last appointment: 02/14/22 Next appointment: 05/21/22 Pharmacy verified in [facility]. Refill(s) requested: Requested Prescriptions Pending Prescriptions Disp Refills pravastatin (PRAVACHOL) 40 mg tablet 90 tablet 4 Sig: Take 1 tablet by mouth daily at bedtime. Order(s) pended. Please advise. Destiny Asencio LPN documented in this encounter [facility] 04-23-2022 Miscellaneous Notes Spoke to patient [...] break out and was diagnosed at [facility] on Thursday. Please contact her at [phone] documented in this encounter [facility] 04-20-2022 History of Present illness Narrative [...] she has no history of shingles. -Urgent [facility] Phone: 04-16-2022 Miscellaneous Notes Patient left VM on triage line re: Below. Called and left message letting her know tablets were sent to pharmacy. documented in this encounter [facility] 04-16-2022 Miscellaneous Notes Patient is rescheduled Please see patient's [employer] message. documented in this encounter [facility] 04-11-2022 Miscellaneous Notes Please schedule the patient for CT scan chest in 3 months followed by an office visit Thank you documented in this encounter [facility] 04-10-2022 History of Present illness Narrative [...] 2022 4:37 PM documented in this encounter [facility] 04-08-2022 Miscellaneous Notes Patient is scheduled Images from the original note were not included. First attempt: left voicemail for patient to call back and scheduled echo Tomasa Ramirez APRN.TREVA [facility] Pulmonary Clerical Pool I have added an order for echocardiogram to assess for pulmonary hypertension related to the patient's pulmonary fibrosis. Please have her schedule this whenever it is most convenient for her. Thanks. Tomasa Ramirez APRN.MARINE ELECTRICIAN HELPER documented in this encounter [facility] 04-02-2022 Miscellaneous Notes See [employer] message from 04/02/22 Closing this encounter. Left [...] Protocols used: No Contact or Duplicate Contact [id number] documented in this encounter [facility] 04-01-2022 Miscellaneous Notes Addressed in alternate encounter. Sabine Goyal RN documented in this encounter [facility] 03-31-2022 Miscellaneous Notes PDMP website checked and validated. All prescriptions have been APPROPRIATELY filled. No suspicious activity was identified. 03/31/2022 by Brinda Dominguez APRN.MARINE ELECTRICIAN HELPER Last appointment: 02/14/22 Next appointment: 05/21/22 Pharmacy verified in [facility]. Refill(s) requested: Requested Prescriptions Pending Prescriptions Disp Refills ALPRAZolam (XANAX) 1 mg tablet 90 tablet 0 Sig: Take 1 tablet by mouth three times daily as needed for sedation or anxiety for up to 30 days. Order(s) pended. Please advise. Lauren Garcia LPN, CMA documented in this encounter [facility] 03-31-2022 Miscellaneous Notes Last appointment: 02/14/22 Next appointment: 05/21/22 Pharmacy verified in [facility]. Refill(s) requested: Requested Prescriptions Pending Prescriptions Disp Refills triamcinolone acetonide (KENALOG) 0.5 % cream 15 g 1 Sig: Apply to affected area three times daily. Order(s) pended. Please advise. Lauren Garcia LPN, CMA [facility] [facility] 03-31-2022 History of Present illness Narrative [...] C 7. Post Covid syndrome Referral to [place] discussed Referral to functional medicine discussed On [...] COVID-19 booster vaccine, age 12+ yr, bivalent ([employer]) 12/13/2021 COVID-19 original vaccine, age 12+ yr, monovalent ([employer] - PURPLE TOP) 2020 05/04/2020 03/06/2021 Influenza [...] by: Tomasa Ramirez APRN.TREVA Pulmonary Medicine [facility] [place], [facility] documented in this encounter [facility] 03-28-2022 Miscellaneous Notes Please inform the [...] TESTS AND FOLLOW UP IN PULM WITH CREW CHIEF Patient called to reschedule her appointment, and asked if a nurse can please call her today and assist her with her oxygen issues. documented in this encounter [facility] 03-25-2022 Miscellaneous Notes Noted/agree. Brinda Dominguez APRN.MARINE ELECTRICIAN HELPER Spoke to patient who c/o migraine headache [...] it has been a while. Protocols used: [id number] documented in this encounter [facility] 03-19-2022 Miscellaneous Notes Patient is scheduled to see Rica Amado PA-C on 03/25/2022 for right hip pain at 1 PM. I see that she had been scheduled for an XR on Thursday03/21/2022 called and left detailed message for patient that we can do her XR in the [facility] 3rd floor same floor as ortho the [...] 2022 1:37 PM documented in this encounter [facility] 02-27-2022 Miscellaneous Notes PDMP website checked and validated. All prescriptions have been APPROPRIATELY filled. No suspicious activity was identified. 02/27/2022 by Brinda Dominguez APRN.MARINE ELECTRICIAN HELPER Pharmacy verified in Epic Patient has been [...] Jaclyn Rose MA documented in this encounter [facility] 02-14-2022 History of Present illness Narrative [...] No children will be coming in for [place]. Has problems getting motivated. Having lower back [...] (<130/80) Never done documented in this encounter [facility] 02-14-2022 Instructions Callie Taylor - 02/14/2022 2:34 PM EST [facility] BUILDING LAB TEST INFORMATION [facility] BUILDING LAB HOURS: Lab is open: 7:30am to 5:00pm - , 7:30am to 4:00pm on Thu and 8am -12pm on Thu. The lab is located in [facility] on the first floor. There is a registration window at the lab, available 7 am to 3 pm Thursday - Thursday. If registration is unavailable at the lab, you may register at the patient registration office near the front lobby of the hospital. SCHEDULING A LAB APPOINTMENT: Laboratory appointments are recommended.Walk ins are still accepted. Call [phone] or schedule via [facility] scheduling ticket. ROUTINE LAB ORDERS 60 days [...] REFILL REQUESTS Request prescription refills through your [facility] account or contact your Pharmacy. My Chart Schedule My Appointment enables you to view your established primary care provider's open schedule and book an appointment online in real-time. This feature is available in internal medicine, family medicine, or pediatrics at any of our [facility] locations and main campus. documented in this encounter [facility] 02-03-2022 Miscellaneous Notes Last appointment: 12/13/21 Next appointment: 02/12/22 Pharmacy verified in [employer]. Refill(s) requested: Requested Prescriptions Pending Prescriptions Disp Refills esomeprazole (NEXIUM) 40 mg capsule 90 capsule 2 Sig: Take 1 capsule by mouth daily before breakfast. Order(s) pended. Please advise. Destiny Asencio LPN documented in this encounter [facility] 01-28-2022 History of Present illness Narrative [...] Karen Pardo PTA documented in this encounter [facility] 12-31-2021 Miscellaneous Notes [facility] website checked and validated. All prescriptions have been APPROPRIATELY filled. No suspicious activity was identified. 12/31/2021 by Brinda Dominguez APRN.TREVA Last appointment: 12/13/21 Next appointment: 02/12/22 Pharmacy verified in [facility]. Refill(s) requested: Requested Prescriptions Pending Prescriptions Disp Refills ALPRAZolam (XANAX) 1 mg tablet 90 tablet 0 Sig: Take 1 tablet by mouth three times daily as needed for sedation or anxiety for up to 30 days. Order(s) pended. Please advise. Avery Zamora Ma FIRMWARE ARCHITECT documented in this encounter [facility] 12-30-2021 History of Present illness Narrative [...] 2021 3:15 PM documented in this encounter [facility] 12-10-2021 Miscellaneous Notes Prior Authorization for Flovent Inhaler faxed to [facility] [phone] per request. documented in this encounter [facility] 12-09-2021 Miscellaneous Notes Pharmacy verified in [facility] Patient has been identified by name [...] Tati Mark Ma documented in this encounter [facility] 12-09-2021 Miscellaneous Notes Patient has been [...] with Dr Espinoza documented in this encounter [facility] 12-02-2021 Miscellaneous Notes Noted documented in this encounter [facility] 12-02-2021 Miscellaneous Notes Spoke with pt, issue resolved. She has her medication documented in this encounter [facility] 12-02-2021 Miscellaneous Notes Situation has been resolved, see other encounter documented in this encounter [facility] 11-30-2021 Miscellaneous Notes [facility] website checked and validated. All prescriptions have been APPROPRIATELY filled. No suspicious activity was identified. 11/30/2021 by Сергей Espinoza MD documented in this encounter [facility] 11-28-2021 Miscellaneous Notes PDMP website checked and validated. All prescriptions have been APPROPRIATELY filled. No suspicious activity was identified. 11/28/2021 by Brinda Dominguez APRN.MARINE ELECTRICIAN HELPER Pharmacy verified in [facility] Patient has been identified by name [...] Rajat Ramirez Ma documented in this encounter [facility] 11-15-2021 Miscellaneous Notes Received approval from [facility] for Qvar Redihaler 80 mcg Good until 03/01/22 Additional authorization may be required should the plan benefits or formulary change in the new year Pt advised I called [facility] [phone] Started a PA for QVAR, Case # [id number] Turn aroud time 24 to 72 hours Pharmacist from [facility] calling in regard to patient requesting QVAR inhaler. Pharmacist said that she normally uses the flovant. Asking if the flovant is being cancelled. Please return call [phone] documented in this encounter [facility] 11-11-2021 Miscellaneous Notes Attempted to call patient no answer left message to call back. documented in this encounter [facility] 10-28-2021 History of Present illness Narrative [...] Acid reflux Seasonal Allergies Other: See Comments Cirair [[place]* Rash Sulfa (Sulfonamide * rash CURRENT [...] Chronic lung disease. No definite acute consolidation. Senior Svp: YURIDIA Transcribe Date/Time: Dec 21 2020 7:08P [...] C 7. Post Covid syndrome Referral to [place] discussed Referral to functional medicine discussed On hold since is hospitalized with hip fracture 8. H/o covid infection November 2020 Did not require hsopitalization documented in this encounter [facility] 10-11-2021 Miscellaneous Notes Please review and advise. documented in this encounter [facility] 10-11-2021 Miscellaneous Notes Last appointment: 05/30/21 Next appointment: 12/05/21 Pharmacy verified in [employer]. Refill(s) requested: Requested Prescriptions Pending Prescriptions Disp Refills triamcinolone acetonide (KENALOG) 0.5 % cream 15 g 1 Sig: Apply to affected area three times daily. Order(s) pended. Please advise. Destiny Asencio LPN documented in this encounter [facility] 10-04-2021 Miscellaneous Notes [facility] website checked and validated. All prescriptions have been APPROPRIATELY filled. No suspicious activity was identified. 10/04/2021 by Brinda Dominguez APRN.MARINE ELECTRICIAN HELPER Last appointment: 07-01-21 Next appointment: 12-05-21 Pharmacy verified in [facility]. Refill(s) requested: Pending Prescriptions Disp Refills ALPRAZOLAM 1 MG TABLET 60 tablet 0 Sig: Take 1 tablet by mouth twice daily as needed for sedation or anxiety for up to 30 days. JURGEN Class: C-IV TARYN: No Order(s) pended. Please advise. Aundrea Cordoba MA, FIRMWARE ARCHITECT documented in this encounter [facility] 09-20-2021 Miscellaneous Notes Pharmacy verified in [facility] Patient has been identified by name [...] oz) Please advise. documented in this encounter [facility] 09-18-2021 Miscellaneous Notes documented in this encounter [facility] 09-05-2021 Miscellaneous Notes PDMP website checked and validated. All prescriptions have been APPROPRIATELY filled. No suspicious activity was identified. 09/05/2021 by Brinda Dominguez APRN.MARINE ELECTRICIAN HELPER Last appointment: 07-24-21 Next appointment: Pharmacy verified in [facility]. Refill(s) requested: Pending Prescriptions Disp Refills ALPRAZOLAM 1 MG TABLET 60 tablet 0 Sig: Take 1 tablet by mouth twice daily as needed for sedation or anxiety for up to 30 days. JURGEN Class: C-IV TARYN: No Order(s) pended. Please advise. Aundrea Cordoba MA, [facility] documented in this encounter [facility] 08-07-2021 Miscellaneous Notes PDMP website checked and validated. All prescriptions have been APPROPRIATELY filled. No suspicious activity was identified. 08/07/2021 by Brinda Dominguez APRN.MARINE ELECTRICIAN HELPER Pharmacy verified in [facility] Patient has been identified by name [...] Maritza Jorgensen LPN documented in this encounter [facility] 07-31-2021 Miscellaneous Notes Disregard. Patient sent an updated mychart and is doing better. Сергей Espinoza MD Please offer patient a 40 min appt this at 220 in the office. Thanks, Сергей Espinoza MD Would allow PCP to address documented in this encounter [facility] 07-24-2021 History of Present illness Narrative [...] month [place] apartment this has been very good for her and her She was very depressed at the [place] and much happier to be out of [...] TSH, CMP, CBC, Lipids just checked end april without abnormalities Does note she does [...] (FLONASE) 50 mcg/actuation nasal spray Use 1 [place] in each nostril daily at bedtime. pravastatin [...] very likely a component here Kenyon Zuniga APRN.TREVA BP CONTROLLED (<130/80) Never done COVID-19 VACCINE(4 - Booster for Pfizer series) due on 07/04/2021 documented in this encounter [facility] 07-23-2021 Miscellaneous Notes See nurse triage encounter Please triage documented in this encounter [facility] 07-23-2021 Miscellaneous Notes See nurse triage encounter documented in this encounter [facility] 07-23-2021 Miscellaneous Notes Fatigue since Goes [...] : NA Protocols used: WEAKNESS (GENERALIZED) AND [id number] Called patient at [phone], no answer. Left message explaining that PCP message would be sent via MY Chart for review. Advised she respond via MY Chart with questions or call the office at [phone] to discuss with Triage. Sabine Goyal RN Tried patient and husbands number, asked her to CB. Left message for patient to return call. Pt sent MC message because she was unable to reach triage. Called back, no answer - left VM Unable to reach, asked her to CB Left message to return call for nurse triage See notation below EL ElhysicianSigned 2:11 PM Addend Please let patient know I am going to consult the production line worker to see what she can do to help. Her find a new assisted living. Is she noticing any benefit from the xanax with the anxiety? Would counseling help her? I am going ot increase her verapamil to 240mg to see if that helps with the headaches and blood pressure. Thanks, Сергей Espinoza MD message: Merna Webster Nathaniel A, MD 2 days ago Couldn t get [...] two are and the oldest is a noah l don t even talk to him [...] you Merna Webster documented in this encounter [facility] 07-22-2021 Miscellaneous Notes Pharmacy faxed requesting the following refill. Rx was filled 2 weeks ago but sent to [facility] in [place]. Please sent to [facility]. Pending Prescriptions Disp Refills PIRFENIDONE 267 MG CAPSULE 270 capsule 3 Sig: TAKE 3 CAPSULES BY MOUTH THREE TIMES A DAY WITH MEALS TARYN: No Patient last appointment: 07/04/2021 Patient Phone numbers: [phone] (home) Request is for script(s) to be escript to pharmacy. Sirisha Adams documented in this encounter [facility] 07-08-2021 Miscellaneous Notes [facility] website checked and validated. All prescriptions have been APPROPRIATELY filled. No suspicious activity was identified. 07/08/2021 by Brinda Dominguez APRN.TREVA Patient has been identified by name and [...] Niranjan Ocampo Ma documented in this encounter [facility] 07-04-2021 Miscellaneous Notes esbriet refill documented in this encounter [facility] 07-02-2021 Miscellaneous Notes Last appointment: 05/30/21 Next appointment: N/A Pharmacy verified in Epic. Refill(s) requested: Pending Prescriptions Disp Refills LEVOTHYROXINE 25 MCG TABLET 90 tablet 3 Sig: Take 1 tablet by mouth once daily. TARYN: No Order(s) pended. Please advise. Lauren Garcia LPN, CMA documented in this encounter [facility] 06-11-2021 Miscellaneous Notes Last appointment: 05/30/21 Next appointment: N/A Pharmacy verified in Epic. Refill(s) requested: Pending Prescriptions Disp Refills PRAVASTATIN 40 MG TABLET 90 tablet 3 Sig: Take 1 tablet by mouth daily at bedtime. TARYN: No Order(s) pended. Please advise. Lauren Garcia LPN, CMA documented in this encounter [facility] 06-10-2021 Miscellaneous Notes Received forms back from provider, faxed to [facility]. Transmission successful. Paperwork in fax drawer. Received forms from Carol regarding O2 Letter of medical Necessity renewal . Placed on providers desk/folder for review/signature. Please return back to nurse to complete. documented in this encounter [facility] 06-07-2021 History of Present illness Narrative [...] know I am going to consult the production line worker to see what she can do to [...] Pt and she stated to her that "[place] had production line worker call and I don't want to talk to a production line worker". I called back and it went directly to . This sign writer letterer or painter left calling because Pt called office asking for assistance with finding new location and PCSW will remain available to assist with resources and provided name and number. Did you receive information on your AVS about the [facility] and [facility]? N/A Did you like receiving this information? N/A Patient reported caregiver was able to meet their needs today? N/A INTERVENTION: Shelter Community / Assisted Living - External Resource Time Spent:: 10 minutes SIGNATURE: JAIRON Cerrato PATIENT NAME: Merna Webster DATE: June 07, 2021 TIME: 3:06 PM CONTACT #: [phone] documented in this encounter [facility] 06-07-2021 Miscellaneous Notes PDMP website checked and validated. All prescriptions have been APPROPRIATELY filled. No suspicious activity was identified. 06/07/2021 by Brinda Dominguez APRN.MARINE ELECTRICIAN HELPER Last appointment: 05/30/21 Next appointment: n/a Pharmacy verified in [facility]. Refill(s) requested: Pending Prescriptions Disp Refills ALPRAZOLAM 1 MG TABLET 60 tablet 0 Sig: Take 1 tablet by mouth twice daily as needed for sedation or anxiety for up to 30 days. JURGEN Class: C-IV TARYN: No Order(s) pended. Please advise. Destiny Asencio LPN documented in this encounter [facility] 06-06-2021 Miscellaneous Notes See nurse triage encounter Please let patient know I am going to consult the production line worker to see what she can do to [...] Sabine Goyal RN documented in this encounter [facility] 06-04-2021 Miscellaneous Notes Addressed in alternate encounter. Sabine Goyal RN Called pt at [phone], no answer. LM requesting CB to speak with nurse triage. Please review and advise documented in this encounter [facility] 05-31-2021 Miscellaneous Notes Left message on for return call documented in this encounter [facility] 05-30-2021 History of Present illness Narrative [...] (FLONASE) 50 mcg/actuation nasal spray Use 1 [place] in each nostril daily at bedtime. diclofenac [...] DISCUSSION Never done documented in this encounter [facility] 05-30-2021 Instructions Callie Taylor - 05/30/2021 2:25 PM EDT [facility] MED[facility] OFF[facility] BUILDING LAB TEST INFORMATION [facility] BUILDING LAB HOURS: Lab is open: 7:30am to 5:00pm M - , 7:30am to 4:00pm on Thu and 8am -12pm on Thu. The lab is located in [facility] on the first floor. There is a registration window at the lab, available 7 am to 3 pm Thursday. If registration is unavailable at the lab, you may register at the patient registration office near the front lobby of the hospital. SCHEDULING A LAB APPOINTMENT: Laboratory appointments are recommended.Walk ins are still accepted. Call [phone] or schedule via [facility] scheduling ticket. ROUTINE LAB ORDERS 60 days [...] REFILL REQUESTS Request prescription refills through your [facility] account or contact your Pharmacy. My Chart Schedule My Appointment enables you to view your established primary care provider's open schedule and book an appointment online in real-time. This feature is available in internal medicine, family medicine, or pediatrics at any of our [facility] locations and main campus. documented in this encounter [facility] 05-22-2016 History of Past i llness Narrative Problem Noted Date Resolved Date Dysphagia 05/22/2016 01/21/2017 Ischemic colon 06/02/2012 04/23/2017 Colonic mass 06/02/2012 04/23/2017 Unspecified sleep apnea 01/04/2008 07/23/19 18 Overview: DME: [facility] # [phone]; fax# [phone] Lumbago 09/10/2007 04/23/2017 Sprain of neck 09/10/2007 [...] of this encounter (statuses as of 05/31/2021) [facility] History of Past illness Narrative* Problem Noted Date Resolved Date Dysphagia 05/22/2016 01/21/2017 Ischemic colon 06/02/2012 04/23/2017 Colonic mass 06/02/2012 04/23/2017 Unspecified sleep apnea 01/04/2008 07/23/19 18 Overview: DME: [facility] # [phone]; fax# [phone] Lumbago 09/10/2007 04/23/2017 Sprain of neck 09/10/2007 [...] of this encounter (statuses as of 05/31/2021) [facility] History of Past illness Narrative* Problem Noted Date Resolved Date Dysphagia 05/22/2016 01/21/2017 Ischemic colon 06/02/2012 04/23/2017 Colonic mass 06/02/2012 04/23/2017 Unspecified sleep apnea 01/04/2008 07/23/19 18 Overview: DME: [facility] # [phone]; fax# [phone] Lumbago 09/10/2007 04/23/2017 Sprain of neck 09/10/2007 [...] of this encounter (statuses as of 06/04/2021) [facility] History of Past illness Narrative* Problem Noted Date Resolved Date Dysphagia 05/22/2016 01/21/2017 Ischemic colon 06/02/2012 04/23/2017 Colonic mass 06/02/2012 04/23/2017 Unspecified sleep apnea 01/04/2008 07/23/19 18 Overview: DME: [facility]# [phone]; fax# [phone] Lumbago 09/10/2007 04/23/2017 Sprain of neck 09/10/2007 [...] of this encounter (statuses as of 06/06/2021) [facility] History of Past illness Narrative* Problem Noted Date Resolved Date Dysphagia 05/22/2016 01/21/2017 Ischemic colon 06/02/2012 04/23/2017 Colonic mass 06/02/2012 04/23/2017 Unspecified sleep apnea 01/04/2008 07/23/19 18 Overview: DME: [facility]# [phone]; fax# [phone] Lumbago 09/10/2007 04/23/2017 Sprain of neck 09/10/2007 [...] of this encounter (statuses as of 06/07/2021) [facility] History of Past illness Narrative* Problem Noted Date Resolved Date Dysphagia 05/22/2016 01/21/2017 Ischemic colon 06/02/2012 04/23/2017 Colonic mass 06/02/2012 04/23/2017 Unspecified sleep apnea 01/04/2008 07/23/19 Overview: DME: [facility] # [phone]; fax# [phone] Lumbago 09/10/2007 04/23/2017 Sprain of neck 09/10/2007 [...] of this encounter (statuses as of 06/07/2021) [facility] History of Past illness Narrative* Problem Noted Date Resolved Date Dysphagia 05/22/2016 01/21/2017 Ischemic colon 06/02/2012 04/23/2017 Colonic mass 06/02/2012 04/23/2017 Unspecified sleep apnea 01/04/2008 07/23/19 18 Overview: DME: [facility]# [phone]; fax# [phone] Lumbago 09/10/2007 04/23/2017 Sprain of neck 09/10/2007 [...] of this encounter (statuses as of 06/10/2021) [facility] History of Past illness Narrative* Problem Noted Date Resolved Date Dysphagia 05/22/2016 01/21/2017 Ischemic colon 06/02/2012 04/23/2017 Colonic mass 06/02/2012 04/23/2017 Unspecified sleep apnea 01/04/2008 07/23/19 18 Overview: DME: [facility]# [phone]; fax# [phone] Lumbago 09/10/2007 04/23/2017 Sprain of neck 09/10/2007 [...] of this encounter (statuses as of 06/11/2021) [facility] History of Past illness Narrative* Problem Noted Date Resolved Date Dysphagia 05/22/2016 01/21/2017 Ischemic colon 06/02/2012 04/23/2017 Colonic mass 06/02/2012 04/23/2017 Unspecified sleep apnea 01/04/2008 07/23/19 18 Overview: DME: [facility]# [phone]; fax# [phone] Lumbago 09/10/2007 04/23/2017 Sprain of neck 09/10/2007 [...] of this encounter (statuses as of 07/02/2021) [facility] History of Past illness Narrative* Problem Noted Date Resolved Date Dysphagia 05/22/2016 01/21/2017 Ischemic colon 06/02/2012 04/23/2017 Colonic mass 06/02/2012 04/23/2017 Unspecified sleep apnea 01/04/2008 07/23/19 18 Overview: DME: [facility]# [phone]; fax# [phone] Lumbago 09/10/2007 04/23/2017 Sprain of neck 09/10/2007 [...] of this encounter (statuses as of 07/04/2021) [facility] of Past illness Narrative* Problem Noted Date Resolved Date Dysphagia 05/22/2016 01/21/2017 Ischemic colon 06/02/2012 04/23/2017 Colonic mass 06/02/2012 04/23/2017 Unspecified sleep apnea 01/04/2008 07/23/19 18 Overview: DME: [facility] # [phone]; fax# [phone] Lumbago 09/10/2007 04/23/2017 Sprain of neck 09/10/2007 [...] of this encounter (statuses as of 07/08/2021) [facility] of [facility] illness Narrative* Problem Noted Date Resolved Date Dysphagia 05/22/2016 01/21/2017 Ischemic colon 06/02/2012 04/23/2017 Colonic mass 06/02/2012 04/23/2017 Unspecified sleep apnea 01/04/2008 07/23/19 18 Overview: DME: [facility]# [phone]; fax# [phone] Lumbago 09/10/2007 04/23/2017 Sprain of neck 09/10/2007 [...] of this encounter (statuses as of 07/22/2021) [facility] of Past illness Narrative* Problem Noted Date Resolved Date Dysphagia 05/22/2016 01/21/2017 Ischemic colon 06/02/2012 04/23/2017 Colonic mass 06/02/2012 04/23/2017 Unspecified sleep apnea 01/04/2008 07/23/19 18 Overview: DME: [facility]# [phone]; fax# [phone] Lumbago 09/10/2007 04/23/2017 Sprain of neck 09/10/2007 [...] of this encounter (statuses as of 07/23/2021) [facility]03[facility]2017 History of Past illness Narrative* Problem Noted Date Resolved Date Dysphagia 05/22/2016 01/21/2017 Ischemic colon 06/02/2012 04/23/2017 Colonic mass 06/02/2012 04/23/2017 Unspecified sleep apnea 01/04/2008 07/23/19 Overview: DME: [facility] # [phone]; fax# [phone] Lumbago 09/10/2007 04/23/2017 Sprain of neck 09/10/2007 [...] of this encounter (statuses as of 07/23/2021) [facility]2017 History of Past illness Narrative* Problem Noted Date Resolved Date Dysphagia 05/22/2016 01/21/2017 Ischemic colon 06/02/2012 04/23/2017 Colonic mass 06/02/2012 04/23/2017 Unspecified sleep apnea 01/04/2008 07/23/19 18 Overview: DME: [facility]# [phone]; fax# [phone] Lumbago 09/10/2007 04/23/2017 Sprain of neck 09/10/2007 [...] of this encounter (statuses as of 07/24/2021) [facility]2017 History of Past illness Narrative* Problem Noted Date Resolved Date Dysphagia 05/22/2016 01/21/2017 Ischemic colon 06/02/2012 04/23/2017 Colonic mass 06/02/2012 04/23/2017 Unspecified sleep apnea 01/04/2008 07/23/19 18 Overview: DME: [facility]# [phone]; fax# [phone] Lumbago 09/10/2007 04/23/2017 Sprain of neck 09/10/2007 [...] of this encounter (statuses as of 07/25/2021) [facility]2017 History of Past illness Narrative* Problem Noted Date Resolved Date Dysphagia 05/22/2016 01/21/2017 Ischemic colon 06/02/2012 04/23/2017 Colonic mass 06/02/2012 04/23/2017 Unspecified sleep apnea 01/04/2008 07/23/19 18 Overview: DME: [facility] # [phone]; fax# [phone] Lumbago 09/10/2007 04/23/2017 Sprain of neck 09/10/2007 [...] of this encounter (statuses as of 07/31/2021) [facility]2017 History of Past illness Narrative* Problem Noted Date Resolved Date Dysphagia 05/22/2016 01/21/2017 Ischemic colon 06/02/2012 04/23/2017 Colonic mass 06/02/2012 04/23/2017 Unspecified sleep apnea 01/04/2008 07/23/19 18 Overview: DME: [facility]# [phone]; fax# [phone] Lumbago 09/10/2007 04/23/2017 Sprain of neck 09/10/2007 [...] of this encounter (statuses as of 08/07/2021) [facility]2017 History of Past illness Narrative* Problem Noted Date Resolved Date Dysphagia 05/22/2016 01/21/2017 Ischemic colon 06/02/2012 04/23/2017 Colonic mass 06/02/2012 04/23/2017 Unspecified sleep apnea 01/04/2008 07/23/19 18 Overview: DME: [facility]# [phone]; fax# [phone] Lumbago 09/10/2007 04/23/2017 Sprain of neck 09/10/2007 [...] of this encounter (statuses as of 09/05/2021) [facility] History of Past illness Narrative* Problem Noted Date Resolved Date Dysphagia 05/22/2016 01/21/2017 Ischemic colon 06/02/2012 04/23/2017 Colonic mass 06/02/2012 04/23/2017 Unspecified sleep apnea 01/04/2008 07/23/19 18 Overview: DME: [facility] # [phone]; fax# [phone] Lumbago 09/10/2007 04/23/2017 Sprain of neck 09/10/2007 [...] of this encounter (statuses as of 09/05/2021) [facility]2017 History of Past illness Narrative* Problem Noted Date Resolved Date Dysphagia 05/22/2016 01/21/2017 Ischemic colon 06/02/2012 04/23/2017 Colonic mass 06/02/2012 04/23/2017 Unspecified sleep apnea 01/04/2008 07/23/19 18 Overview: DME: [facility]# [phone]; fax# [phone] Lumbago 09/10/2007 04/23/2017 Sprain of neck 09/10/2007 [...] of this encounter (statuses as of 09/18/2021) [facility]2017 History of Past illness Narrative* Problem Noted Date Resolved Date Dysphagia 05/22/2016 01/21/2017 Ischemic colon 06/02/2012 04/23/2017 Colonic mass 06/02/2012 04/23/2017 Unspecified sleep apnea 01/04/2008 07/23/19 18 Overview: DME: [facility]# [phone]; fax# [phone] Lumbago 09/10/2007 04/23/2017 Sprain of neck 09/10/2007 [...] of this encounter (statuses as of 09/20/2021) [facility]2017 History of Past illness Narrative* Problem Noted Date Resolved Date Dysphagia 05/22/2016 01/21/2017 Ischemic colon 06/02/2012 04/23/2017 Colonic mass 06/02/2012 04/23/2017 Unspecified sleep apnea 01/04/2008 07/23/19 18 Overview: DME: [facility]# [phone]; fax# [phone] Lumbago 09/10/2007 04/23/2017 Sprain of neck 09/10/2007 [...] of this encounter (statuses as of 09/21/2021) [facility]2017 History of Past illness Narrative* Problem Noted Date Resolved Date Dysphagia 05/22/2016 01/21/2017 Ischemic colon 06/02/2012 04/23/2017 Colonic mass 06/02/2012 04/23/2017 Unspecified sleep apnea 01/04/2008 07/23/19 18 Overview: DME: [facility]# [phone]; fax# [phone] Lumbago 09/10/2007 04/23/2017 Sprain of neck 09/10/2007 [...] of this encounter (statuses as of 09/23/2021) [facility]2017 History of Past illness Narrative* Problem Noted Date Resolved Date Dysphagia 05/22/2016 01/21/2017 Ischemic colon 06/02/2012 04/23/2017 Colonic mass 06/02/2012 04/23/2017 Unspecified sleep apnea 01/04/2008 07/23/19 18 Overview: DME: [facility] # [phone]; fax# [phone] Lumbago 09/10/2007 04/23/2017 Sprain of neck 09/10/2007 [...] of this encounter (statuses as of 10/04/2021) [facility]2017 History of Past illness Narrative* Problem Noted Date Resolved Date Dysphagia 05/22/2016 01/21/2017 Ischemic colon 06/02/2012 04/23/2017 Colonic mass 06/02/2012 04/23/2017 Unspecified sleep apnea 01/04/2008 07/23/19 18 Overview: DME: [facility]# [phone]; fax# [phone] Lumbago 09/10/2007 04/23/2017 Sprain of neck 09/10/2007 [...] of this encounter (statuses as of 10/05/2021) [facility]2017 History of Past illness Narrative* Problem Noted Date Resolved Date Dysphagia 05/22/2016 01/21/2017 Ischemic colon 06/02/2012 04/23/2017 Colonic mass 06/02/2012 04/23/2017 Unspecified sleep apnea 01/04/2008 07/23/19 18 Overview: DME: [facility]# [phone]; fax# [phone] Lumbago 09/10/2007 04/23/2017 Sprain of neck 09/10/2007 [...] of this encounter (statuses as of 10/11/2021) [facility]2017 History of Past illness Narrative* Problem Noted Date Resolved Date Dysphagia 05/22/2016 01/21/2017 Ischemic colon 06/02/2012 04/23/2017 Colonic mass 06/02/2012 04/23/2017 Unspecified sleep apnea 01/04/2008 07/23/19 18 Overview: DME: [facility] # [phone]; fax# [phone] Lumbago 09/10/2007 04/23/2017 Sprain of neck 09/10/2007 [...] of this encounter (statuses as of 10/11/2021) [facility]2017 History of Past illness Narrative* Problem Noted Date Resolved Date Dysphagia 05/22/2016 01/21/2017 Ischemic colon 06/02/2012 04/23/2017 Colonic mass 06/02/2012 04/23/2017 Unspecified sleep apnea 01/04/2008 07/23/19 18 Overview: DME: [facility]# [phone]; fax# [phone] Lumbago 09/10/2007 04/23/2017 Sprain of neck 09/10/2007 [...] of this encounter (statuses as of 10/28/2021) [facility]2017 History of Past illness Narrative* Problem Noted Date Resolved Date Dysphagia 05/22/2016 01/21/2017 Ischemic colon 06/02/2012 04/23/2017 Colonic mass 06/02/2012 04/23/2017 Unspecified sleep apnea 01/04/2008 07/23/19 18 Overview: DME: [facility]# [phone]; fax# [phone] Lumbago 09/10/2007 04/23/2017 Sprain of neck 09/10/2007 [...] of this encounter (statuses as of 11/11/2021) [facility]2017 History of Past illness Narrative* Problem Noted Date Resolved Date Dysphagia 05/22/2016 01/21/2017 Ischemic colon 06/02/2012 04/23/2017 Colonic mass 06/02/2012 04/23/2017 Unspecified sleep apnea 01/04/2008 07/23/19 18 Overview: DME: [facility] # [phone]; fax# [phone] Lumbago 09/10/2007 04/23/2017 Sprain of neck 09/10/2007 [...] of this encounter (statuses as of 11/14/2021) [facility]2017 History of Past illness Narrative* Problem Noted Date Resolved Date Dysphagia 05/22/2016 01/21/2017 Ischemic colon 06/02/2012 04/23/2017 Colonic mass 06/02/2012 04/23/2017 Unspecified sleep apnea 01/04/2008 07/23/19 18 Overview: DME: [facility]# [phone]; fax# [phone] Lumbago 09/10/2007 04/23/2017 Sprain of neck 09/10/2007 [...] of this encounter (statuses as of 11/15/2021) [facility]2017 History of Past illness Narrative* Problem Noted Date Resolved Date Dysphagia 05/22/2016 01/21/2017 Ischemic colon 06/02/2012 04/23/2017 Colonic mass 06/02/2012 04/23/2017 Unspecified sleep apnea 01/04/2008 07/23/19 18 Overview: DME: [facility]# [phone]; fax# [phone] Lumbago 09/10/2007 04/23/2017 Sprain of neck 09/10/2007 [...] of this encounter (statuses as of 11/29/2021) [facility]2017 History of Past illness Narrative* Problem Noted Date Resolved Date Dysphagia 05/22/2016 01/21/2017 Ischemic colon 06/02/2012 04/23/2017 Colonic mass 06/02/2012 04/23/2017 Unspecified sleep apnea 01/04/2008 07/23/19 18 Overview: DME: [facility] # [phone]; fax# [phone] Lumbago 09/10/2007 04/23/2017 Sprain of neck 09/10/2007 [...] of this encounter (statuses as of 11/29/2021) [facility]2017 History of Past illness Narrative* Problem Noted Date Resolved Date Dysphagia 05/22/2016 01/21/2017 Ischemic colon 06/02/2012 04/23/2017 Colonic mass 06/02/2012 04/23/2017 Unspecified sleep apnea 01/04/2008 07/23/19 18 Overview: DME: [facility]# [phone]; fax# [phone] Lumbago 09/10/2007 04/23/2017 Sprain of neck 09/10/2007 [...] of this encounter (statuses as of 11/30/2021) [facility]2017 History of Past illness Narrative* Problem Noted Date Resolved Date Dysphagia 05/22/2016 01/21/2017 Ischemic colon 06/02/2012 04/23/2017 Colonic mass 06/02/2012 04/23/2017 Unspecified sleep apnea 01/04/2008 07/23/19 18 Overview: DME: [facility]# [phone]; fax# [phone] Lumbago 09/10/2007 04/23/2017 Sprain of neck 09/10/2007 [...] of this encounter (statuses as of 12/02/2021) [facility]2017 History of Past illness Narrative* Problem Noted Date Resolved Date Dysphagia 05/22/2016 01/21/2017 Ischemic colon 06/02/2012 04/23/2017 Colonic mass 06/02/2012 04/23/2017 Unspecified sleep apnea 01/04/2008 07/23/19 18 Overview: DME: [facility] # [phone]; fax# [phone] Lumbago 09/10/2007 04/23/2017 Sprain of neck 09/10/2007 [...] of this encounter (statuses as of 12/02/2021) [facility]2017 History of Past illness Narrative* Problem Noted Date Resolved Date Dysphagia 05/22/2016 01/21/2017 Ischemic colon 06/02/2012 04/23/2017 Colonic mass 06/02/2012 04/23/2017 Unspecified sleep apnea 01/04/2008 07/23/19 18 Overview: DME: [facility] # [phone]; fax# [phone] Lumbago 09/10/2007 04/23/2017 Sprain of neck 09/10/2007 [...] of this encounter (statuses as of 12/04/2021) [facility]2017 History of Past illness Narrative* Problem Noted Date Resolved Date Dysphagia 05/22/2016 01/21/2017 Ischemic colon 06/02/2012 04/23/2017 Colonic mass 06/02/2012 04/23/2017 Unspecified sleep apnea 01/04/2008 07/23/19 18 Overview: DME: [facility] # [phone]; fax# [phone] Lumbago 09/10/2007 04/23/2017 Sprain of neck 09/10/2007 [...] of this encounter (statuses as of 12/09/2021) [facility]2017 History of Past illness Narrative* Problem Noted Date Resolved Date Dysphagia 05/22/2016 01/21/2017 Ischemic colon 06/02/2012 04/23/2017 Colonic mass 06/02/2012 04/23/2017 Unspecified sleep apnea 01/04/2008 07/23/19 18 Overview: DME: [facility]# [phone]; fax# [phone] Lumbago 09/10/2007 04/23/2017 Sprain of neck 09/10/2007 [...] of this encounter (statuses as of 12/09/2021) [facility]2017 History of Past illness Narrative* Problem Noted Date Resolved Date Dysphagia 05/22/2016 01/21/2017 Ischemic colon 06/02/2012 04/23/2017 Colonic mass 06/02/2012 04/23/2017 Unspecified sleep apnea 01/04/2008 07/23/19 18 Overview: DME: [facility]# [phone]; fax# [phone] Lumbago 09/10/2007 04/23/2017 Sprain of neck 09/10/2007 [...] of this encounter (statuses as of 12/10/2021) [facility]2017 History of Past illness Narrative* Problem Noted Date Resolved Date Dysphagia 05/22/2016 01/21/2017 Ischemic colon 06/02/2012 04/23/2017 Colonic mass 06/02/2012 04/23/2017 Unspecified sleep apnea 01/04/2008 07/23/19 18 Overview: DME: [facility] # [phone]; fax# [phone] Lumbago 09/10/2007 04/23/2017 Sprain of neck 09/10/2007 [...] of this encounter (statuses as of 12/23/2021) [facility]2017 History of Past illness Narrative* Problem Noted Date Resolved Date Dysphagia 05/22/2016 01/21/2017 Ischemic colon 06/02/2012 04/23/2017 Colonic mass 06/02/2012 04/23/2017 Unspecified sleep apnea 01/04/2008 07/23/19 18 Overview: DME: [facility]# [phone]; fax# [phone] Lumbago 09/10/2007 04/23/2017 Sprain of neck 09/10/2007 [...] of this encounter (statuses as of 12/31/2021) [facility]2017 History of Past illness Narrative* Problem Noted Date Resolved Date Dysphagia 05/22/2016 01/21/2017 Ischemic colon 06/02/2012 04/23/2017 Colonic mass 06/02/2012 04/23/2017 Unspecified sleep apnea 01/04/2008 07/23/19 18 Overview: DME: [facility]# [phone]; fax# [phone] Lumbago 09/10/2007 04/23/2017 Sprain of neck 09/10/2007 [...] of this encounter (statuses as of 01/28/2022) [facility] History of Past illness Narrative* Problem Noted Date Resolved Date Dysphagia 05/22/2016 01/21/2017 Ischemic colon 06/02/2012 04/23/2017 Colonic mass 06/02/2012 04/23/2017 Unspecified sleep apnea 01/04/2008 07/23/19 18 Overview: DME: [facility] # [phone]; fax# [phone] Lumbago 09/10/2007 04/23/2017 Sprain of neck 09/10/2007 [...] of this encounter (statuses as of 02/03/2022) [facility] History of Past illness Narrative* Problem Noted Date Resolved Date Dysphagia 05/22/2016 01/21/2017 Ischemic colon 06/02/2012 04/23/2017 Colonic mass 06/02/2012 04/23/2017 Unspecified sleep apnea 01/04/2008 07/23/19 18 Overview: DME: [facility]# [phone]; fax# [phone] Lumbago 09/10/2007 04/23/2017 Sprain of neck 09/10/2007 [...] of this encounter (statuses as of 02/15/2022) [facility] History of Past illness Narrative* Problem Noted Date Resolved Date Dysphagia 05/22/2016 01/21/2017 Ischemic colon 06/02/2012 04/23/2017 Colonic mass 06/02/2012 04/23/2017 Unspecified sleep apnea 01/04/2008 07/23/19 18 Overview: DME: [facility]# [phone]; fax# [phone] Lumbago 09/10/2007 04/23/2017 Sprain of neck 09/10/2007 [...] of this encounter (statuses as of 02/19/2022) [facility] History of Past illness Narrative* Problem Noted Date Resolved Date Dysphagia 05/22/2016 01/21/2017 Ischemic colon 06/02/2012 04/23/2017 Colonic mass 06/02/2012 04/23/2017 Unspecified sleep apnea 01/04/2008 07/23/19 18 Overview: DME: [facility] # [phone]; fax# [phone] Lumbago 09/10/2007 04/23/2017 Sprain of neck 09/10/2007 [...] of this encounter (statuses as of 03/05/2022) [facility] History of Past illness Narrative* Problem Noted Date Resolved Date Dysphagia 05/22/2016 01/21/2017 Ischemic colon 06/02/2012 04/23/2017 Colonic mass 06/02/2012 04/23/2017 Unspecified sleep apnea 01/04/2008 07/23/19 18 Overview: DME: [facility]# [phone]; fax# [phone] Lumbago 09/10/2007 04/23/2017 Sprain of neck 09/10/2007 [...] of this encounter (statuses as of 03/19/2022) [facility] History of Past illness Narrative* Problem Noted Date Resolved Date Dysphagia 05/22/2016 01/21/2017 Ischemic colon 06/02/2012 04/23/2017 Colonic mass 06/02/2012 04/23/2017 Unspecified sleep apnea 01/04/2008 07/23/19 18 Overview: DME: [facility]# [phone]; fax# [phone] Lumbago 09/10/2007 04/23/2017 Sprain of neck 09/10/2007 [...] of this encounter (statuses as of 03/25/2022) [facility] History of Past illness Narrative* Problem Noted Date Resolved Date Dysphagia 05/22/2016 01/21/2017 Ischemic colon 06/02/2012 04/23/2017 Colonic mass 06/02/2012 04/23/2017 Unspecified sleep apnea 01/04/2008 07/23/19 18 Overview: DME: [facility]# [phone]; fax# [phone] Lumbago 09/10/2007 04/23/2017 Sprain of neck 09/10/2007 [...] of this encounter (statuses as of 03/28/2022) [facility] History of Past illness Narrative* Problem Noted Date Resolved Date Dysphagia 05/22/2016 01/21/2017 Ischemic colon 06/02/2012 04/23/2017 Colonic mass 06/02/2012 04/23/2017 Unspecified sleep apnea 01/04/2008 07/23/19 18 Overview: DME: [facility]# [phone]; fax# [phone] Lumbago 09/10/2007 04/23/2017 Sprain of neck 09/10/2007 [...] of this encounter (statuses as of 03/31/2022) [facility] History of Past illness Narrative* Problem Noted Date Resolved Date Dysphagia 05/22/2016 01/21/2017 Ischemic colon 06/02/2012 04/23/2017 Colonic mass 06/02/2012 04/23/2017 Unspecified sleep apnea 01/04/2008 07/23/19 18 Overview: DME: [facility] # [phone]; fax# [phone] Lumbago 09/10/2007 04/23/2017 Sprain of neck 09/10/2007 [...] of this encounter (statuses as of 04/01/2022) [facility] History of Past illness Narrative* Problem Noted Date Resolved Date Dysphagia 05/22/2016 01/21/2017 Ischemic colon 06/02/2012 04/23/2017 Colonic mass 06/02/2012 04/23/2017 Unspecified sleep apnea 01/04/2008 07/23/19 18 Overview: DME: [facility]# [phone]; fax# [phone] Lumbago 09/10/2007 04/23/2017 Sprain of neck 09/10/2007 [...] of this encounter (statuses as of 04/01/2022) [facility] History of Past illness Narrative* Problem Noted Date Resolved Date Dysphagia 05/22/2016 01/21/2017 Ischemic colon 06/02/2012 04/23/2017 Colonic mass 06/02/2012 04/23/2017 Unspecified sleep apnea 01/04/2008 07/23/19 18 Overview: DME: [facility]# [phone]; fax# [phone] Lumbago 09/10/2007 04/23/2017 Sprain of neck 09/10/2007 [...] of this encounter (statuses as of 04/01/2022) [facility] History of Past illness Narrative* Problem Noted Date Resolved Date Dysphagia 05/22/2016 01/21/2017 Ischemic colon 06/02/2012 04/23/2017 Colonic mass 06/02/2012 04/23/2017 Unspecified sleep apnea 01/04/2008 07/23/19 18 Overview: DME: [facility] # [phone]; fax# [phone] Lumbago 09/10/2007 04/23/2017 Sprain of neck 09/10/2007 [...] of this encounter (statuses as of 04/02/2022) [facility] History of Past illness Narrative* Problem Noted Date Resolved Date Dysphagia 05/22/2016 01/21/2017 Ischemic colon 06/02/2012 04/23/2017 Colonic mass 06/02/2012 04/23/2017 Unspecified sleep apnea 01/04/2008 07/23/19 18 Overview: DME: [facility]# [phone]; fax# [phone] Lumbago 09/10/2007 04/23/2017 Sprain of neck 09/10/2007 [...] of this encounter (statuses as of 04/08/2022) [facility] History of Past illness Narrative* Problem Noted Date Resolved Date Dysphagia 05/22/2016 01/21/2017 Ischemic colon 06/02/2012 04/23/2017 Colonic mass 06/02/2012 04/23/2017 Unspecified sleep apnea 01/04/2008 07/23/19 18 Overview: DME: [facility]# [phone]; fax# [phone] Lumbago 09/10/2007 04/23/2017 Sprain of neck 09/10/2007 [...] of this encounter (statuses as of 04/11/2022) [facility] History of Past illness Narrative* Problem Noted Date Resolved Date Dysphagia 05/22/2016 01/21/2017 Ischemic colon 06/02/2012 04/23/2017 Colonic mass 06/02/2012 04/23/2017 Unspecified sleep apnea 01/04/2008 07/23/19 18 Overview: DME: [facility] # [phone]; fax# [phone] Lumbago 09/10/2007 04/23/2017 Sprain of neck 09/10/2007 [...] of this encounter (statuses as of 04/15/2022) [facility] History of Past illness Narrative* Problem Noted Date Resolved Date Dysphagia 05/22/2016 01/21/2017 Ischemic colon 06/02/2012 04/23/2017 Colonic mass 06/02/2012 04/23/2017 Unspecified sleep apnea 01/04/2008 07/23/19 18 Overview: [facility]ME: [facility]# [phone]; fax# [phone] Lumbago 09/10/2007 04/23/2017 Sprain of neck 09/10/2007 [...] of this encounter (statuses as of 04/16/2022) [facility] History of Past illness Narrative* Problem Noted Date Resolved Date Dysphagia 05/22/2016 01/21/2017 Ischemic colon 06/02/2012 04/23/2017 Colonic mass 06/02/2012 04/23/2017 Unspecified sleep apnea 01/04/2008 07/23/19 18 Overview: DME: [facility]# [phone]; fax# [phone] Lumbago 09/10/2007 04/23/2017 Sprain of neck 09/10/2007 [...] of this encounter (statuses as of 04/16/2022) [facility] History of Past illness Narrative* Problem Noted Date Resolved Date Dysphagia 05/22/2016 01/21/2017 Ischemic colon 06/02/2012 04/23/2017 Colonic mass 06/02/2012 04/23/2017 Unspecified sleep apnea 01/04/2008 07/23/19 18 Overview: DME: [facility] # [phone]; fax# [phone] Lumbago 09/10/2007 04/23/2017 Sprain of neck 09/10/2007 [...] of this encounter (statuses as of 04/18/2022) [facility] History of Past illness Narrative* Problem Noted Date Resolved Date Dysphagia 05/22/2016 01/21/2017 Ischemic colon 06/02/2012 04/23/2017 Colonic mass 06/02/2012 04/23/2017 Unspecified sleep apnea 01/04/2008 07/23/19 18 Overview: DME: [facility]# [phone]; fax# [phone] Lumbago 09/10/2007 04/23/2017 Sprain of neck 09/10/2007 [...] of this encounter (statuses as of 04/21/2022) [facility] History of Past illness Narrative* Problem Noted Date Resolved Date Dysphagia 05/22/2016 01/21/2017 Ischemic colon 06/02/2012 04/23/2017 Colonic mass 06/02/2012 04/23/2017 Unspecified sleep apnea 01/04/2008 07/23/19 18 Overview: DME: [facility]# [phone]; fax# [phone] Lumbago 09/10/2007 04/23/2017 Sprain of neck 09/10/2007 [...] of this encounter (statuses as of 04/23/2022) [facility] History of Past illness Narrative* Problem Noted Date Resolved Date Dysphagia 05/22/2016 01/21/2017 Ischemic colon 06/02/2012 04/23/2017 Colonic mass 06/02/2012 04/23/2017 Unspecified sleep apnea 01/04/2008 07/23/19 18 Overview: DME: [facility]# [phone]; fax# [phone] Lumbago 09/10/2007 04/23/2017 Sprain of neck 09/10/2007 [...] of this encounter (statuses as of 04/24/2022) [facility] History of Past illness Narrative* Problem Noted Date Resolved Date Dysphagia 05/22/2016 01/21/2017 Ischemic colon 06/02/2012 04/23/2017 Colonic mass 06/02/2012 04/23/2017 Unspecified sleep apnea 01/04/2008 07/23/19 18 Overview: DME: [facility]# [phone]; fax# [phone] Lumbago 09/10/2007 04/23/2017 Sprain of neck 09/10/2007 [...] of this encounter (statuses as of 04/25/2022) [facility] History of Past illness Narrative* Problem Noted Date Resolved Date Dysphagia 05/22/2016 01/21/2017 Ischemic colon 06/02/2012 04/23/2017 Colonic mass 06/02/2012 04/23/2017 Unspecified sleep apnea 01/04/2008 07/23/19 18 Overview: DME: [facility] # [phone]; fax# [phone] Lumbago 09/10/2007 04/23/2017 Sprain of neck 09/10/2007 [...] of this encounter (statuses as of 04/29/2022) [facility] History of Past illness Narrative* Problem Noted Date Resolved Date Dysphagia 05/22/2016 01/21/2017 Ischemic colon 06/02/2012 04/23/2017 Colonic mass 06/02/2012 04/23/2017 Unspecified sleep apnea 01/04/2008 07/23/19 18 Overview: DME: [facility]# [phone]; fax# [phone] Lumbago 09/10/2007 04/23/2017 Sprain of neck 09/10/2007 [...] of this encounter (statuses as of 05/01/2022) [facility] History of Past illness Narrative* Problem Noted Date Resolved Date Dysphagia 05/22/2016 01/21/2017 Ischemic colon 06/02/2012 04/23/2017 Colonic mass 06/02/2012 04/23/2017 Unspecified sleep apnea 01/04/2008 07/23/19 18 Overview: DME: [facility]# [phone]; fax# [phone] Lumbago 09/10/2007 04/23/2017 Sprain of neck 09/10/2007 [...] of this encounter (statuses as of 05/04/2022) [facility]2017 History of Past illness Narrative* Problem Noted Date Resolved Date Dysphagia 05/22/2016 01/21/2017 Ischemic colon 06/02/2012 04/23/2017 Colonic mass 06/02/2012 04/23/2017 Unspecified sleep apnea 01/04/2008 07/23/19 18 Overview: DME: [facility] # [phone]; fax# [phone] Lumbago 09/10/2007 04/23/2017 Sprain of neck 09/10/2007 [...] of this encounter (statuses as of 05/06/2022) [facility] History of Past illness Narrative* Problem Noted Date Resolved Date Dysphagia 05/22/2016 01/21/2017 Ischemic colon 06/02/2012 04/23/2017 Colonic mass 06/02/2012 04/23/2017 Unspecified sleep apnea 01/04/2008 07/23/19 18 Overview: DME: [facility]# [phone]; fax# [phone] Lumbago 09/10/2007 04/23/2017 Sprain of neck 09/10/2007 [...] of this encounter (statuses as of 05/09/2022) [facility] History of Past illness Narrative* Problem Noted Date Resolved Date Dysphagia 05/22/2016 01/21/2017 Ischemic colon 06/02/2012 04/23/2017 Colonic mass 06/02/2012 04/23/2017 Unspecified sleep apnea 01/04/2008 07/23/19 18 Overview: DME: [facility]# [phone]; fax# [phone] Lumbago 09/10/2007 04/23/2017 Sprain of neck 09/10/2007 [...] of this encounter (statuses as of 05/09/2022) [facility] History of Past illness Narrative* Problem Noted Date Resolved Date Dysphagia 05/22/2016 01/21/2017 Ischemic colon 06/02/2012 04/23/2017 Colonic mass 06/02/2012 04/23/2017 Unspecified sleep apnea 01/04/2008 07/23/19 18 Overview: DME: [facility] # [phone]; fax# [phone] Lumbago 09/10/2007 04/23/2017 Sprain of neck 09/10/2007 [...] of this encounter (statuses as of 05/12/2022) [facility] History of Past illness Narrative* Problem Noted Date Resolved Date Dysphagia 05/22/2016 01/21/2017 Ischemic colon 06/02/2012 04/23/2017 Colonic mass 06/02/2012 04/23/2017 Unspecified sleep apnea 01/04/2008 07/23/19 18 Overview: DME: [facility]# [phone]; fax# [phone] Lumbago 09/10/2007 04/23/2017 Sprain of neck 09/10/2007 [...] of this encounter (statuses as of 05/22/2022) [facility] History of Past illness Narrative* Problem Noted Date Resolved Date Dysphagia 05/22/2016 01/21/2017 Ischemic colon 06/02/2012 04/23/2017 Colonic mass 06/02/2012 04/23/2017 Unspecified sleep apnea 01/04/2008 07/23/19 18 Overview: DME: [facility]# [phone]; fax# [phone] Lumbago 09/10/2007 04/23/2017 Sprain of neck 09/10/2007 [...] of this encounter (statuses as of 05/22/2022) [facility] History of Past illness Narrative* Problem Noted Date Resolved Date Dysphagia 05/22/2016 01/21/2017 Ischemic colon 06/02/2012 04/23/2017 Colonic mass 06/02/2012 04/23/2017 Unspecified sleep apnea 01/04/2008 07/23/19 18 Overview: DME: [facility] # [phone]; fax# [phone] Lumbago 09/10/2007 04/23/2017 Sprain of neck 09/10/2007 [...] of this encounter (statuses as of 05/27/2022) [facility] History of Past illness Narrative* Problem Noted Date Resolved Date Dysphagia 05/22/2016 01/21/2017 Ischemic colon 06/02/2012 04/23/2017 Colonic mass 06/02/2012 04/23/2017 Unspecified sleep apnea 01/04/2008 07/23/19 18 Overview: DME: [facility]# [phone]; fax# [phone] Lumbago 09/10/2007 04/23/2017 Sprain of neck 09/10/2007 [...] of this encounter (statuses as of 06/04/2022) [facility] History of Past illness Narrative* Problem Noted Date Resolved Date Dysphagia 05/22/2016 01/21/2017 Ischemic colon 06/02/2012 04/23/2017 Colonic mass 06/02/2012 04/23/2017 Unspecified sleep apnea 01/04/2008 07/23/19 18 Overview: DME: [facility]# [phone]; fax# [phone] Lumbago 09/10/2007 04/23/2017 Sprain of neck 09/10/2007 [...] of this encounter (statuses as of 06/12/2022) [facility] History of Past illness Narrative* Problem Noted Date Resolved Date Dysphagia 05/22/2016 01/21/2017 Ischemic colon 06/02/2012 04/23/2017 Colonic mass 06/02/2012 04/23/2017 Unspecified sleep apnea 01/04/2008 07/23/19 18 Overview: DME: [facility]# [phone]; fax# [phone] Lumbago 09/10/2007 04/23/2017 Sprain of neck 09/10/2007 [...] of this encounter (statuses as of 06/13/2022) [facility] History of Past illness Narrative* Problem Noted Date Resolved Date Dysphagia 05/22/2016 01/21/2017 Ischemic colon 06/02/2012 04/23/2017 Colonic mass 06/02/2012 04/23/2017 Unspecified sleep apnea 01/04/2008 07/23/19 18 Overview: DME: [facility]# [phone]; fax# [phone] Lumbago 09/10/2007 04/23/2017 Sprain of neck 09/10/2007 [...] of this encounter (statuses as of 06/19/2022) [facility] History of Past illness Narrative* Problem Noted Date Resolved Date Dysphagia 05/22/2016 01/21/2017 Ischemic colon 06/02/2012 04/23/2017 Colonic mass 06/02/2012 04/23/2017 Unspecified sleep apnea 01/04/2008 07/23/19 Overview: DME: [facility] # [phone]; fax# [phone] Lumbago 09/10/2007 04/23/2017 Sprain of neck 09/10/2007 [...] of this encounter (statuses as of 06/25/2022) [facility] History of Past illness Narrative* Problem Noted Date Resolved Date Dysphagia 05/22/2016 01/21/2017 Ischemic colon 06/02/2012 04/23/2017 Colonic mass 06/02/2012 04/23/2017 Unspecified sleep apnea 01/04/2008 07/23/19 18 Overview: DME: [facility]# [phone]; fax# [phone] Lumbago 09/10/2007 04/23/2017 Sprain of neck 09/10/2007 [...] of this encounter (statuses as of 06/26/2022) [facility] History of Past illness Narrative* Problem Noted Date Resolved Date Dysphagia 05/22/2016 01/21/2017 Ischemic colon 06/02/2012 04/23/2017 Colonic mass 06/02/2012 04/23/2017 Unspecified sleep apnea 01/04/2008 07/23/19 18 Overview: DME: [facility]# [phone]; fax# [phone] Lumbago 09/10/2007 04/23/2017 Sprain of neck 09/10/2007 [...] of this encounter (statuses as of 07/09/2022) [facility] History of Past illness Narrative* Problem Noted Date Resolved Date Dysphagia 05/22/2016 01/21/2017 Ischemic colon 06/02/2012 04/23/2017 Colonic mass 06/02/2012 04/23/2017 Unspecified sleep apnea 01/04/2008 07/23/19 18 Overview: DME: [facility] # [phone]; fax# [phone] Lumbago 09/10/2007 04/23/2017 Sprain of neck 09/10/2007 [...] of this encounter (statuses as of 07/10/2022) [facility] History of Past illness Narrative* Problem Noted Date Resolved Date Dysphagia 05/22/2016 01/21/2017 Ischemic colon 06/02/2012 04/23/2017 Colonic mass 06/02/2012 04/23/2017 Unspecified sleep apnea 01/04/2008 07/23/19 18 Overview: DME: [facility]# [phone]; fax# [phone] Lumbago 09/10/2007 04/23/2017 Sprain of neck 09/10/2007 [...] of this encounter (statuses as of 07/11/2022) [facility] History of Past illness Narrative* Problem Noted Date Resolved Date Dysphagia 05/22/2016 01/21/2017 Ischemic colon 06/02/2012 04/23/2017 Colonic mass 06/02/2012 04/23/2017 Unspecified sleep apnea 01/04/2008 07/23/19 18 Overview: DME: [facility]# [phone]; fax# [phone] Lumbago 09/10/2007 04/23/2017 Sprain of neck 09/10/2007 [...] of this encounter (statuses as of 08/14/2022) [facility] History of Past illness Narrative* Problem Noted Date Resolved Date Dysphagia 05/22/2016 01/21/2017 Ischemic colon 06/02/2012 04/23/2017 Colonic mass 06/02/2012 04/23/2017 Unspecified sleep apnea 01/04/2008 07/23/19 Overview: DME: [facility] # [phone]; fax# [phone] Lumbago 09/10/2007 04/23/2017 Sprain of neck 09/10/2007 [...] of this encounter (statuses as of 08/15/2022) [facility] History of Past illness Narrative* Problem Noted Date Resolved Date Dysphagia 05/22/2016 01/21/2017 Ischemic colon 06/02/2012 04/23/2017 Colonic mass 06/02/2012 04/23/2017 Unspecified sleep apnea 01/04/2008 07/23/19 18 Overview: DME: [facility]# [phone]; fax# [phone] Lumbago 09/10/2007 04/23/2017 Sprain of neck 09/10/2007 [...] of this encounter (statuses as of 08/16/2022) [facility] History of Past illness Narrative* Problem Noted Date Resolved Date Dysphagia 05/22/2016 01/21/2017 Ischemic colon 06/02/2012 04/23/2017 Colonic mass 06/02/2012 04/23/2017 Unspecified sleep apnea 01/04/2008 07/23/19 18 Overview: DME: [facility]# [phone]; fax# [phone] Lumbago 09/10/2007 04/23/2017 Sprain of neck 09/10/2007 [...] of this encounter (statuses as of 08/22/2022) [facility] History of Past illness Narrative* Problem Noted Date Resolved Date Dysphagia 05/22/2016 01/21/2017 Ischemic colon 06/02/2012 04/23/2017 Colonic mass 06/02/2012 04/23/2017 Unspecified sleep apnea 01/04/2008 07/23/19 18 Overview: DME: [facility] # [phone]; fax# [phone] Lumbago 09/10/2007 04/23/2017 Sprain of neck 09/10/2007 [...] of this encounter (statuses as of 08/22/2022) [facility] History of Past illness Narrative* Problem Noted Date Resolved Date Dysphagia 05/22/2016 01/21/2017 Ischemic colon 06/02/2012 04/23/2017 Colonic mass 06/02/2012 04/23/2017 Unspecified sleep apnea 01/04/2008 07/23/19 18 Overview: DME: [facility]# [phone]; fax# [phone] Lumbago 09/10/2007 04/23/2017 Sprain of neck 09/10/2007 [...] of this encounter (statuses as of 08/23/2022) [facility] History of Past illness Narrative* Problem Noted Date Resolved Date Dysphagia 05/22/2016 01/21/2017 Ischemic colon 06/02/2012 04/23/2017 Colonic mass 06/02/2012 04/23/2017 Unspecified sleep apnea 01/04/2008 07/23/19 18 Overview: DME: [facility]# [phone]; fax# [phone] Lumbago 09/10/2007 04/23/2017 Sprain of neck 09/10/2007 [...] of this encounter (statuses as of 08/26/2022) [facility] History of Past illness Narrative* Problem Noted Date Diagnosed Date Resolved Date Dysphagia 05/22/2016 01/21/2017 Ischemic colon 06/02/2012 04/23/2017 Colonic mass 06/02/2012 04/23/2017 Unspecified sleep apnea 01/04/200807/01 Overview: DME: [facility]# [phone]; fax# [phone] Lumbago 09/10/2007 04/23/2017 Sprain of neck 09/10/2007 [...] of this encounter (statuses as of 09/07/2022) [facility] History of Past illness Narrative* Problem Noted Date Diagnosed Date Resolved Date Dysphagia 05/22/2016 01/21/2017 Ischemic colon 06/02/2012 04/23/2017 Colonic mass 06/02/2012 04/23/2017 Unspecified sleep apnea 01/04/200807/01 Overview: DME: [facility]# [phone]; fax# [phone] Lumbago 09/10/2007 04/23/2017 Sprain of neck 09/10/2007 [...] of this encounter (statuses as of 09/09/2022) [facility] History of Past illness Narrative* Problem Noted Date Diagnosed Date Resolved Date Dysphagia 05/22/2016 01/21/2017 Ischemic colon 06/02/2012 04/23/2017 Colonic mass 06/02/2012 04/23/2017 Unspecified sleep apnea 01/04/200807/01 Overview: DME: [facility] # [phone]; fax# [phone] Lumbago 09/10/2007 04/23/2017 Sprain of neck 09/10/2007 [...] of this encounter (statuses as of 09/26/2022) [facility] History of Past illness Narrative* Problem Noted Date Diagnosed Date Resolved Date Dysphagia 05/22/2016 01/21/2017 Ischemic colon 06/02/2012 04/23/2017 Colonic mass 06/02/2012 04/23/2017 Unspecified sleep apnea 01/04/200807/01 Overview: DME: [facility]# [phone]; fax# [phone] Lumbago 09/10/2007 04/23/2017 Sprain of neck 09/10/2007 [...] of this encounter (statuses as of 09/26/2022) [facility] History of Past illness Narrative* Problem Noted Date Diagnosed Date Resolved Date Dysphagia 05/22/2016 01/21/2017 Ischemic colon 06/02/2012 04/23/2017 Colonic mass 06/02/2012 04/23/2017 Unspecified sleep apnea 01/04/200807/01 Overview: DME: [facility]# [phone]; fax# [phone] Lumbago 09/10/2007 04/23/2017 Sprain of neck 09/10/2007 [...] of this encounter (statuses as of 10/01/2022) [facility] History of Past illness Narrative* Problem Noted Date Diagnosed Date Resolved Date Dysphagia 05/22/2016 01/21/2017 Ischemic colon 06/02/2012 04/23/2017 Colonic mass 06/02/2012 04/23/2017 Unspecified sleep apnea 01/04/200807/01 Overview: DME: [facility] # [phone]; fax# [phone] Lumbago 09/10/2007 04/23/2017 Sprain of neck 09/10/2007 [...] of this encounter (statuses as of 10/08/2022) [facility] History of Past illness Narrative* Problem Noted Date Diagnosed Date Resolved Date Dysphagia 05/22/2016 01/21/2017 Ischemic colon 06/02/2012 04/23/2017 Colonic mass 06/02/2012 04/23/2017 Unspecified sleep apnea 01/04/200807/01 Overview: DME: [facility]# [phone]; fax# [phone] Lumbago 09/10/2007 04/23/2017 Sprain of neck 09/10/2007 [...] of this encounter (statuses as of 10/08/2022) [facility] History of Past illness Narrative* Problem Noted Date Diagnosed Date Resolved Date Dysphagia 05/22/2016 01/21/2017 Ischemic colon 06/02/2012 04/23/2017 Colonic mass 06/02/2012 04/23/2017 Unspecified sleep apnea 01/04/200807/01 Overview: DME: [facility]# [phone]; fax# [phone] Lumbago 09/10/2007 04/23/2017 Sprain of neck 09/10/2007 [...] of this encounter (statuses as of 10/15/2022) [facility] History of Past illness Narrative* Problem Noted Date Diagnosed Date Resolved Date Dysphagia 05/22/2016 01/21/2017 Ischemic colon 06/02/2012 04/23/2017 Colonic mass 06/02/2012 04/23/2017 Unspecified sleep apnea 01/04/200807/01 Overview: DME: [facility] # [phone]; fax# [phone] Lumbago 09/10/2007 04/23/2017 Sprain of neck 09/10/2007 [...] of this encounter (statuses as of 10/21/2022) [facility] History of Past illness Narrative* Problem Noted Date Diagnosed Date Resolved Date Dysphagia 05/22/2016 01/21/2017 Ischemic colon 06/02/2012 04/23/2017 Colonic mass 06/02/2012 04/23/2017 Unspecified sleep apnea 01/04/200807/01 Overview: DME: [facility]# [phone]; fax# [phone] Lumbago 09/10/2007 04/23/2017 Sprain of neck 09/10/2007 [...] of this encounter (statuses as of 10/22/2022) [facility] History of Past illness Narrative* Problem Noted Date Diagnosed Date Resolved Date Dysphagia 05/22/2016 01/21/2017 Ischemic colon 06/02/2012 04/23/2017 Colonic mass 06/02/2012 04/23/2017 Unspecified sleep apnea 01/04/200807/01 Overview: DME: [facility]# [phone]; fax# [phone] Lumbago 09/10/2007 04/23/2017 Sprain of neck 09/10/2007 [...] of this encounter (statuses as of 10/23/2022) [facility] History of Past illness Narrative* Problem Noted Date Diagnosed Date Resolved Date Dysphagia 05/22/2016 01/21/2017 Ischemic colon 06/02/2012 04/23/2017 Colonic mass 06/02/2012 04/23/2017 Unspecified sleep apnea 01/04/200807/01 Overview: DME: [facility] # [phone]; fax# [phone] Lumbago 09/10/2007 04/23/2017 Sprain of neck 09/10/2007 [...] of this encounter (statuses as of 10/23/2022) [facility] History of Past illness Narrative* Problem Noted Date Diagnosed Date Resolved Date Dysphagia 05/22/2016 01/21/2017 Ischemic colon 06/02/2012 04/23/2017 Colonic mass 06/02/2012 04/23/2017 Unspecified sleep apnea 01/04/200807/01 Overview: DME: [facility] # [phone]; fax# [phone] Lumbago 09/10/2007 04/23/2017 Sprain of neck 09/10/2007 [...] of this encounter (statuses as of 10/25/2022) [facility] History of Past illness Narrative* Problem Noted Date Diagnosed Date Resolved Date Dysphagia 05/22/2016 01/21/2017 Ischemic colon 06/02/2012 04/23/2017 Colonic mass 06/02/2012 04/23/2017 Unspecified sleep apnea 01/04/200807/01 Overview: DME: [facility] # [phone]; fax# [phone] Lumbago 09/10/2007 04/23/2017 Sprain of neck 09/10/2007 [...] of this encounter (statuses as of 10/30/2022) [facility] History of Past illness Narrative* Problem Noted Date Diagnosed Date Resolved Date Dysphagia 05/22/2016 01/21/2017 Ischemic colon 06/02/2012 04/23/2017 Colonic mass 06/02/2012 04/23/2017 Unspecified sleep apnea 01/04/200807/01 Overview: DME: [facility] # [phone]; fax# [phone] Lumbago 09/10/2007 04/23/2017 Sprain of neck 09/10/2007 [...] of this encounter (statuses as of 11/05/2022) [facility] History of Past illness Narrative* Problem Noted Date Diagnosed Date Resolved Date Dysphagia 05/22/2016 01/21/2017 Ischemic colon 06/02/2012 04/23/2017 Colonic mass 06/02/2012 04/23/2017 Unspecified sleep apnea 01/04/200807/01 Overview: DME: [facility]# [phone]; fax# [phone] Lumbago 09/10/2007 04/23/2017 Sprain of neck 09/10/2007 [...] of this encounter (statuses as of 11/10/2022) [facility] History of Past illness Narrative* Problem Noted Date Diagnosed Date Resolved Date Dysphagia 05/22/2016 01/21/2017 Ischemic colon 06/02/2012 04/23/2017 Colonic mass 06/02/2012 04/23/2017 Unspecified sleep apnea 01/04/200807/01 Overview: DME: [facility]# [phone]; fax# [phone] Lumbago 09/10/2007 04/23/2017 Sprain of neck 09/10/2007 [...] of this encounter (statuses as of 11/12/2022) [facility] History of Past illness Narrative* Problem Noted Date Diagnosed Date Resolved Date Dysphagia 05/22/2016 01/21/2017 Ischemic colon 06/02/2012 04/23/2017 Colonic mass 06/02/2012 04/23/2017 Unspecified sleep apnea 01/04/200807/01 Overview: DME: [facility]# [phone]; fax# [phone] Lumbago 09/10/2007 04/23/2017 Sprain of neck 09/10/2007 [...] of this encounter (statuses as of 11/17/2022) [facility] History of Past illness Narrative* Problem Noted Date Diagnosed Date Resolved Date Dysphagia 05/22/2016 01/21/2017 Ischemic colon 06/02/2012 04/23/2017 Colonic mass 06/02/2012 04/23/2017 Unspecified sleep apnea 01/04/200807/01 Overview: [facility]# [phone]; fax# [phone] Lumbago 09/10/2007 04/23/2017 Sprain of neck 09/10/2007 [...] of this encounter (statuses as of 11/18/2022) [facility] History of Past illness Narrative* Problem Noted Date Diagnosed Date Resolved Date Dysphagia 05/22/2016 01/21/2017 Ischemic colon 06/02/2012 04/23/2017 Colonic mass 06/02/2012 04/23/2017 Unspecified sleep apnea 01/04/200807/01 Overview: DME: [facility] # [phone]; fax# [phone] Lumbago 09/10/2007 04/23/2017 Sprain of neck 09/10/2007 [...] of this encounter (statuses as of 11/18/2022) [facility] History of Past illness Narrative* Problem Noted Date Diagnosed Date Resolved Date Dysphagia 05/22/2016 01/21/2017 Ischemic colon 06/02/2012 04/23/2017 Colonic mass 06/02/2012 04/23/2017 Unspecified sleep apnea 01/04/200807/01 Overview: DME: [facility]# [phone]; fax# [phone] Lumbago 09/10/2007 04/23/2017 Sprain of neck 09/10/2007 [...] of this encounter (statuses as of 11/19/2022) [facility] History of Past illness Narrative* Problem Noted Date Diagnosed Date Resolved Date Dysphagia 05/22/2016 01/21/2017 Ischemic colon 06/02/2012 04/23/2017 Colonic mass 06/02/2012 04/23/2017 Unspecified sleep apnea 01/04/200807/01 Overview: DME: [facility]# [phone]; fax# [phone] Lumbago 09/10/2007 04/23/2017 Sprain of neck 09/10/2007 [...] of this encounter (statuses as of 11/20/2022) [facility] History of Past illness Narrative* Problem Noted Date Diagnosed Date Resolved Date Dysphagia 05/22/2016 01/21/2017 Ischemic colon 06/02/2012 04/23/2017 Colonic mass 06/02/2012 04/23/2017 Unspecified sleep apnea 01/04/200807/01 Overview: DME: [facility] # [phone]; fax# [phone] Lumbago 09/10/2007 04/23/2017 Sprain of neck 09/10/2007 [...] of this encounter (statuses as of 11/28/2022) [facility] History of Past illness Narrative* Problem Noted Date Diagnosed Date Resolved Date Dysphagia 05/22/2016 01/21/2017 Ischemic colon 06/02/2012 04/23/2017 Colonic mass 06/02/2012 04/23/2017 Unspecified sleep apnea 01/04/200807/01 Overview: DME: [facility]# [phone]; fax# [phone] Lumbago 09/10/2007 04/23/2017 Sprain of neck 09/10/2007 [...] of this encounter (statuses as of 11/29/2022) [facility] of Past illness Narrative* Problem Noted Date Diagnosed Date Resolved Date Dysphagia 05/22/2016 01/21/2017 Ischemic colon 06/02/2012 04/23/2017 Colonic mass 06/02/2012 04/23/2017 Unspecified sleep apnea 01/04/200807/01 Overview: DME: [facility]# [phone]; fax# [phone] Lumbago 09/10/2007 04/23/2017 Sprain of neck 09/10/2007 [...] of this encounter (statuses as of 11/29/2022) [facility] of Past illness Narrative* Problem Noted Date Diagnosed Date Resolved Date Dysphagia 05/22/2016 01/21/2017 Ischemic colon 06/02/2012 04/23/2017 Colonic mass 06/02/2012 04/23/2017 Unspecified sleep apnea 01/04/200807/01 Overview: DME: [facility] # [phone]; fax# [phone] Lumbago 09/10/2007 04/23/2017 Sprain of neck 09/10/2007 [...] of this encounter (statuses as of 12/09/2022) [facility] Past illness Narrative* Problem Noted Date Diagnosed Date Resolved Date Dysphagia 05/22/2016 01/21/2017 Ischemic colon 06/02/2012 04/23/2017 Colonic mass 06/02/2012 04/23/2017 Unspecified sleep apnea 01/04/200807/01 Overview: DME: [facility]# [phone]; fax# [phone] Lumbago 09/10/2007 04/23/2017 Sprain of neck 09/10/2007 [...] of this encounter (statuses as of 12/16/2022) [facility] Past illness Narrative* Problem Noted Date Diagnosed Date Resolved Date Dysphagia 05/22/2016 01/21/2017 Ischemic colon 06/02/2012 04/23/2017 Colonic mass 06/02/2012 04/23/2017 Unspecified sleep apnea 01/04/200807/01 Overview: DME: [facility]# [phone]; fax# [phone] Lumbago 09/10/2007 04/23/2017 Sprain of neck 09/10/2007 [...] of this encounter (statuses as of 12/17/2022) [facility] of Past illness Narrative* Problem Noted Date Diagnosed Date Resolved Date Dysphagia 05/22/2016 01/21/2017 Ischemic colon 06/02/2012 04/23/2017 Colonic mass 06/02/2012 04/23/2017 Unspecified sleep apnea 01/04/200807/01 Overview: DME: [facility] # [phone]; fax# [phone] Lumbago 09/10/2007 04/23/2017 Sprain of neck 09/10/2007 [...] of this encounter (statuses as of 12/18/2022) [facility] of Past illness Narrative* Problem Noted Date Diagnosed Date Resolved Date Dysphagia 05/22/2016 01/21/2017 Ischemic colon 06/02/2012 04/23/2017 Colonic mass 06/02/2012 04/23/2017 Unspecified sleep apnea 01/04/200807/01 Overview: DME: [facility]# [phone]; fax# [phone] Lumbago 09/10/2007 04/23/2017 Sprain of neck 09/10/2007 [...] of this encounter (statuses as of 12/23/2022) [facility] of Past illness Narrative* Problem Noted Date Diagnosed Date Resolved Date Dysphagia 05/22/2016 01/21/2017 Ischemic colon 06/02/2012 04/23/2017 Colonic mass 06/02/2012 04/23/2017 Unspecified sleep apnea 01/04/200807/01 Overview: DME: [facility]# [phone]; fax# [phone] Lumbago 09/10/2007 04/23/2017 Sprain of neck 09/10/2007 [...] of this encounter (statuses as of 12/31/2022) [facility] Past illness Narrative* Problem Noted Date Diagnosed Date Resolved Date Dysphagia 05/22/2016 01/21/2017 Ischemic colon 06/02/2012 04/23/2017 Colonic mass 06/02/2012 04/23/2017 Unspecified sleep apnea 01/04/200807/01 Overview: DME: [facility] # [phone]; fax# [phone] Lumbago 09/10/2007 04/23/2017 Sprain of neck 09/10/2007 [...] of this encounter (statuses as of 01/04/2023) [facility]2017 History of Past illness Narrative* Problem Noted Date Diagnosed Date Resolved Date Dysphagia 05/22/2016 01/21/2017 Ischemic colon 06/02/2012 04/23/2017 Colonic mass 06/02/2012 04/23/2017 Unspecified sleep apnea 01/04/200807/01 Overview: DME: [facility] # [phone]; fax# [phone] Lumbago 09/10/2007 04/23/2017 Sprain of neck 09/10/2007 [...] of this encounter (statuses as of 01/04/2023) [facility] History of Past illness Narrative* Problem Noted Date Diagnosed Date Resolved Date Dysphagia 05/22/2016 01/21/2017 Ischemic colon 06/02/2012 04/23/2017 Colonic mass 06/02/2012 04/23/2017 Unspecified sleep apnea 01/04/200807/01 Overview: DME: [facility] # [phone]; fax# [phone] Lumbago 09/10/2007 04/23/2017 Sprain of neck 09/10/2007 [...] of this encounter (statuses as of 01/06/2023) [facility] History of Past illness Narrative* Problem Noted Date Diagnosed Date Resolved Date Dysphagia 05/22/2016 01/21/2017 Ischemic colon 06/02/2012 04/23/2017 Colonic mass 06/02/2012 04/23/2017 Unspecified sleep apnea 01/04/200807/01 Overview: DME: [facility] # [phone]; fax# [phone] Lumbago 09/10/2007 04/23/2017 Sprain of neck 09/10/2007 [...] of this encounter (statuses as of 01/14/2023) [facility] History of Past illness Narrative* Problem Noted Date Diagnosed Date Resolved Date Dysphagia 05/22/2016 01/21/2017 Ischemic colon 06/02/2012 04/23/2017 Colonic mass 06/02/2012 04/23/2017 Unspecified sleep apnea 01/04/200807/01 Overview: DME: [facility]# [phone]; fax# [phone] Lumbago 09/10/2007 04/23/2017 Sprain of neck 09/10/2007 [...] of this encounter (statuses as of 01/28/2023) [facility] History of Past illness Narrative* Problem Noted Date Diagnosed Date Resolved Date Dysphagia 05/22/2016 01/21/2017 Ischemic colon 06/02/2012 04/23/2017 Colonic mass 06/02/2012 04/23/2017 Unspecified sleep apnea 01/04/200807/01 Overview: DME: [facility]# [phone]; fax# [phone] Lumbago 09/10/2007 04/23/2017 Sprain of neck 09/10/2007 [...] of this encounter (statuses as of 01/30/2023) [facility] History of Past illness Narrative* Problem Noted Date Diagnosed Date Resolved Date Dysphagia 05/22/2016 01/21/2017 Ischemic colon 06/02/2012 04/23/2017 Colonic mass 06/02/2012 04/23/2017 Unspecified sleep apnea 01/04/200807/01 Overview: [facility]: [facility]# [phone]; fax# [phone] Lumbago 09/10/2007 04/23/2017 Sprain of neck 09/10/2007 [...] of this encounter (statuses as of 02/01/2023) [facility] History of Past illness Narrative* Problem Noted Date Diagnosed Date Resolved Date Dysphagia 05/22/2016 01/21/2017 Ischemic colon 06/02/2012 04/23/2017 Colonic mass 06/02/2012 04/23/2017 Unspecified sleep apnea 01/04/200807/01 Overview: [facility] [phone]; fax# [phone] Lumbago 09/10/2007 04/23/2017 Sprain of neck 09/10/2007 [...] of this encounter (statuses as of 02/05/2023) [facility] History of Past illness Narrative* Problem Noted Date Diagnosed Date Resolved Date Dysphagia 05/22/2016 01/21/2017 Ischemic colon 06/02/2012 04/23/2017 Colonic mass 06/02/2012 04/23/2017 Unspecified sleep apnea 01/04/200807/01 Overview: DME: [facility] # [phone]; fax# [phone] Lumbago 09/10/2007 04/23/2017 Sprain of neck 09/10/2007 [...] of this encounter (statuses as of 02/07/2023) [facility] History of Past illness Narrative* Problem Noted Date Diagnosed Date Resolved Date Dysphagia 05/22/2016 01/21/2017 Ischemic colon 06/02/2012 04/23/2017 Colonic mass 06/02/2012 04/23/2017 Unspecified sleep apnea 01/04/200807/01 Overview: DME: [facility]# [phone]; fax# [phone] Lumbago 09/10/2007 04/23/2017 Sprain of neck 09/10/2007 [...] of this encounter (statuses as of 02/14/2023) [facility] History of Past illness Narrative* Problem Noted Date Diagnosed Date Resolved Date Dysphagia 05/22/2016 01/21/2017 Ischemic colon 06/02/2012 04/23/2017 Colonic mass 06/02/2012 04/23/2017 Unspecified sleep apnea 01/04/200807/01 Overview: DME: [facility]# [phone]; fax# [phone] Lumbago 09/10/2007 04/23/2017 Sprain of neck 09/10/2007 [...] of this encounter (statuses as of 02/20/2023) [facility] History of Past illness Narrative* Problem Noted Date Diagnosed Date Resolved Date Dysphagia 05/22/2016 01/21/2017 Ischemic colon 06/02/2012 04/23/2017 Colonic mass 06/02/2012 04/23/2017 Unspecified sleep apnea 01/04/200807/01 Overview: DME: [facility] # [phone]; fax# [phone] Lumbago 09/10/2007 04/23/2017 Sprain of neck 09/10/2007 [...] of this encounter (statuses as of 02/20/2023) [facility] History of Past illness Narrative* Problem Noted Date Diagnosed Date Resolved Date Dysphagia 05/22/2016 01/21/2017 Ischemic colon 06/02/2012 04/23/2017 Colonic mass 06/02/2012 04/23/2017 Unspecified sleep apnea 01/04/200807/01 Overview: DME: [facility]# [phone]; fax# [phone] Lumbago 09/10/2007 04/23/2017 Sprain of neck 09/10/2007 [...] of this encounter (statuses as of 04/03/2023) [facility] History of Past illness Narrative* Problem Noted Date Diagnosed Date Resolved Date Dysphagia 05/22/2016 01/21/2017 Ischemic colon 06/02/2012 04/23/2017 Colonic mass 06/02/2012 04/23/2017 Unspecified sleep apnea 01/04/200807/01 Overview: DME: [facility]# [phone]; fax# [phone] Lumbago 09/10/2007 04/23/2017 Sprain of neck 09/10/2007 [...] of this encounter (statuses as of 04/14/2023) [facility] History of Past illness Narrative* Problem Noted Date Diagnosed Date Resolved Date Dysphagia 05/22/2016 01/21/2017 Ischemic colon 06/02/2012 04/23/2017 Colonic mass 06/02/2012 04/23/2017 Unspecified sleep apnea 01/04/200807/01 Overview: DME: [facility] # [phone]; fax# [phone] Lumbago 09/10/2007 04/23/2017 Sprain of neck 09/10/2007 [...] of this encounter (statuses as of 04/14/2023) [facility] History of Past illness Narrative* Problem Noted Date Diagnosed Date Resolved Date Dysphagia 05/22/2016 01/21/2017 Ischemic colon 06/02/2012 04/23/2017 Colonic mass 06/02/2012 04/23/2017 Unspecified sleep apnea 01/04/200807/01 Overview: DME: [facility]# [phone]; fax# [phone] Lumbago 09/10/2007 04/23/2017 Sprain of neck 09/10/2007 [...] of this encounter (statuses as of 04/16/2023) [facility] History of Past illness Narrative* Problem Noted Date Diagnosed Date Resolved Date Dysphagia 05/22/2016 01/21/2017 Ischemic colon 06/02/2012 04/23/2017 Colonic mass 06/02/2012 04/23/2017 Unspecified sleep apnea 01/04/200807/01 Overview: DME: [facility]# [phone]; fax# [phone] Lumbago 09/10/2007 04/23/2017 Sprain of neck 09/10/2007 [...] of this encounter (statuses as of 04/23/2023) [facility] History of Past illness Narrative* Problem Noted Date Diagnosed Date Resolved Date Dysphagia 05/22/2016 01/21/2017 Ischemic colon 06/02/2012 04/23/2017 Colonic mass 06/02/2012 04/23/2017 Unspecified sleep apnea 01/04/200807/01 Overview: DME: [facility] # [phone]; fax# [phone] Lumbago 09/10/2007 04/23/2017 Sprain of neck 09/10/2007 [...] of this encounter (statuses as of 04/24/2023) [facility] History of Past illness Narrative* Problem Noted Date Diagnosed Date Resolved Date Dysphagia 05/22/2016 01/21/2017 Ischemic colon 06/02/2012 04/23/2017 Colonic mass 06/02/2012 04/23/2017 Unspecified sleep apnea 01/04/200807/01 Overview: DME: [facility]# [phone]; fax# [phone] Lumbago 09/10/2007 04/23/2017 Sprain of neck 09/10/2007 [...] of this encounter (statuses as of 04/30/2023) [facility] History of Past illness Narrative* Problem Noted Date Diagnosed Date Resolved Date Dysphagia 05/22/2016 01/21/2017 Ischemic colon 06/02/2012 04/23/2017 Colonic mass 06/02/2012 04/23/2017 Unspecified sleep apnea 01/04/200807/01 Overview: DME: [facility]# [phone]; fax# [phone] Lumbago 09/10/2007 04/23/2017 Sprain of neck 09/10/2007 [...] of this encounter (statuses as of 05/01/2023) [facility] History of Past illness Narrative* Problem Noted Date Diagnosed Date Resolved Date Dysphagia 05/22/2016 01/21/2017 Ischemic colon 06/02/2012 04/23/2017 Colonic mass 06/02/2012 04/23/2017 Unspecified sleep apnea 01/04/200807/01 Overview: DME: [facility] # [phone]; fax# [phone] Lumbago 09/10/2007 04/23/2017 Sprain of neck 09/10/2007 [...] of this encounter (statuses as of 05/01/2023) [facility] History of Past illness Narrative* Problem Noted Date Diagnosed Date Resolved Date Dysphagia 05/22/2016 01/21/2017 Ischemic colon 06/02/2012 04/23/2017 Colonic mass 06/02/2012 04/23/2017 Unspecified sleep apnea 01/04/200807/01 Overview: DME: [facility] # [phone]; fax# [phone] Lumbago 09/10/2007 04/23/2017 Sprain of neck 09/10/2007 [...] of this encounter (statuses as of 05/04/2023) [facility] History of Past illness Narrative* Problem Noted Date Diagnosed Date Resolved Date Dysphagia 05/22/2016 01/21/2017 Ischemic colon 06/02/2012 04/23/2017 Colonic mass 06/02/2012 04/23/2017 Unspecified sleep apnea 01/04/200807/01 Overview: DME: [facility] # [phone]; fax# [phone] Lumbago 09/10/2007 04/23/2017 Sprain of neck 09/10/2007 [...] of this encounter (statuses as of 05/04/2023) [facility] History of Past illness Narrative* Problem Noted Date Diagnosed Date Resolved Date Dysphagia 05/22/2016 01/21/2017 Ischemic colon 06/02/2012 04/23/2017 Colonic mass 06/02/2012 04/23/2017 Unspecified sleep apnea 01/04/200807/01 Overview: DME: [facility] # [phone]; fax# [phone] Lumbago 09/10/2007 04/23/2017 Sprain of neck 09/10/2007 [...] of this encounter (statuses as of 05/04/2023) [facility] History of Past illness Narrative* Problem Noted Date Diagnosed Date Resolved Date Dysphagia 05/22/2016 01/21/2017 Ischemic colon 06/02/2012 04/23/2017 Colonic mass 06/02/2012 04/23/2017 Unspecified sleep apnea 01/04/200807/01 Overview: DME: [facility]# [phone]; fax# [phone] Lumbago 09/10/2007 04/23/2017 Sprain of neck 09/10/2007 [...] of this encounter (statuses as of 05/11/2023) [facility] History of Past illness Narrative* Problem Noted Date Diagnosed Date Resolved Date Dysphagia 05/22/2016 01/21/2017 Ischemic colon 06/02/2012 04/23/2017 Colonic mass 06/02/2012 04/23/2017 Unspecified sleep apnea 01/04/200807/01 Overview: DME: [facility]# [phone]; fax# [phone] Lumbago 09/10/2007 04/23/2017 Sprain of neck 09/10/2007 [...] of this encounter (statuses as of 05/13/2023) [facility] History of Past illness Narrative* Problem Noted Date Diagnosed Date Resolved Date Dysphagia 05/22/2016 01/21/2017 Ischemic colon 06/02/2012 04/23/2017 Colonic mass 06/02/2012 04/23/2017 Unspecified sleep apnea 01/04/200807/01 Overview: [facility]# [phone]; fax# [phone] Lumbago 09/10/2007 04/23/2017 Sprain of neck 09/10/2007 [...] of this encounter (statuses as of 05/14/2023) [facility] History of Past illness Narrative* Problem Noted Date Diagnosed Date Resolved Date Dysphagia 05/22/2016 01/21/2017 Ischemic colon 06/02/2012 04/23/2017 Colonic mass 06/02/2012 04/23/2017 Unspecified sleep apnea 01/04/200807/01 Overview: [facility]# [phone]; fax# [phone] Lumbago 09/10/2007 04/23/2017 Sprain of neck 09/10/2007 [...] of this encounter (statuses as of 05/14/2023) [facility] History of Past illness Narrative* Problem Noted Date Diagnosed Date Resolved Date Dysphagia 05/22/2016 01/21/2017 Ischemic colon 06/02/2012 04/23/2017 Colonic mass 06/02/2012 04/23/2017 Unspecified sleep apnea 01/04/200807/01 Overview: DME: [facility] # [phone]; fax# [phone] Lumbago 09/10/2007 04/23/2017 Sprain of neck 09/10/2007 [...] of this encounter (statuses as of 05/15/2023) [facility] History of Past illness Narrative* Problem Noted Date Diagnosed Date Resolved Date Dysphagia 05/22/2016 01/21/2017 Ischemic colon 06/02/2012 04/23/2017 Colonic mass 06/02/2012 04/23/2017 Unspecified sleep apnea 01/04/200807/01 Overview: DME: [facility]# [phone]; fax# [phone] Lumbago 09/10/2007 04/23/2017 Sprain of neck 09/10/2007 [...] of this encounter (statuses as of 05/22/2023) [facility] History of Past illness Narrative* Problem Noted Date Diagnosed Date Resolved Date Dysphagia 05/22/2016 01/21/2017 Ischemic colon 06/02/2012 04/23/2017 Colonic mass 06/02/2012 04/23/2017 Unspecified sleep apnea 01/04/200807/01 Overview: DME: [facility]# [phone]; fax# [phone] Lumbago 09/10/2007 04/23/2017 Sprain of neck 09/10/2007 [...] of this encounter (statuses as of 05/25/2023) [facility] History of Past illness Narrative* Problem Noted Date Diagnosed Date Resolved Date Dysphagia 05/22/2016 01/21/2017 Ischemic colon 06/02/2012 04/23/2017 Colonic mass 06/02/2012 04/23/2017 Unspecified sleep apnea 01/04/200807/01 Overview: DME: [facility] # [phone]; fax# [phone] Lumbago 09/10/2007 04/23/2017 Sprain of neck 09/10/2007 [...] of this encounter (statuses as of 06/12/2023) [facility] History of Past illness Narrative* Problem Noted Date Diagnosed Date Resolved Date Dysphagia 05/22/2016 01/21/2017 Ischemic colon 06/02/2012 04/23/2017 Colonic mass 06/02/2012 04/23/2017 Unspecified sleep apnea 01/04/200807/01 Overview: DME: [facility]# [phone]; fax# [phone] Lumbago 09/10/2007 04/23/2017 Sprain of neck 09/10/2007 [...] of this encounter (statuses as of 06/12/2023) [facility] of Past illness Narrative* Problem Noted Date Diagnosed Date Resolved Date Dysphagia 05/22/2016 01/21/2017 Ischemic colon 06/02/2012 04/23/2017 Colonic mass 06/02/2012 04/23/2017 Unspecified sleep apnea 01/04/200807/01 Overview: DME: [facility]# [phone]; fax# [phone] Lumbago 09/10/2007 04/23/2017 Sprain of neck 09/10/2007 [...] of this encounter (statuses as of 06/19/2023) [facility] Pure hypercholesterolemia- Primary Idiopathic [...] hypothyroidism [facility] Stress at home- Primary Unspecified family circumstance [facility] Anxiety Anxiety state, unspecified [facility] Diagnosis Encounter for support and coordination of transition of care- Primary [facility] Diagnosis Idiopathic pulmonary fibrosis (HCC) Idiopathic pulmonary fibrosis [facility] Diagnosis Anxiety Anxiety state, unspecified [facility]* Diagnosis Fatigue, unspecified type- Primary Essential hypertension Unspecified essential hypertension Obstructive sleep apnea Obstructive sleep apnea (adult) (pediatric) Anxiety Anxiety state, unspecified [facility]* Diagnosis Interstitial pulmonary disease (HCC)- [...] History of COVID-19 [facility] Diagnosis Anxiety Anxiety state, unspecified [facility]* Diagnosis Anxiety Anxiety state, unspecified [facility] Diagnosis Idiopathic pulmonary fibrosis (HCC) Idiopathic pulmonary fibrosis [facility]* Diagnosis Anxiety Anxiety state, unspecified [facility] Diagnosis Radicular low back pain- Primary Thoracic or lumbosacral neuritis or radiculitis, unspecified [facility] Diagnosis Trochanteric bursitis of right hip- Primary Enthesopathy of hip region Right hip pain Pain in joint, pelvic region and thigh Essential hypertension Unspecified essential hypertension Anxiety Anxiety state, unspecified [facility] Diagnosis Anxiety Anxiety state, unspecified [facility] Diagnosis Idiopathic pulmonary fibrosis (HCC)- Primary Idiopathic pulmonary fibrosis Chronic respiratory failure with hypoxia (HCC) Chronic respiratory failure Mild persistent asthma without complication Unspecified asthma JENNY on CPAP Obstructive sleep apnea (adult) (pediatric) [facility] Diagnosis Lung nodules- Primary Other nonspecific abnormal finding of lung field [facility] Diagnosis Anxiety Anxiety state, unspecified [facility] Diagnosis Idiopathic pulmonary fibrosis (HCC)- Primary Idiopathic pulmonary fibrosis Chronic respiratory failure with hypoxia (HCC) Chronic respiratory failure Mild persistent asthma without complication Unspecified asthma JENNY on CPAP Obstructive sleep apnea (adult) (pediatric) Lung nodule Solitary pulmonary nodule [facility] Diagnosis Hypothyroidism Unspecified hypothyroidism [facility] Diagnosis Idiopathic pulmonary fibrosis (HCC)- Primary Idiopathic pulmonary fibrosis Financial difficulties Inadequate material resources Recurrent major depressive disorder, in full remission (HCC) Chronic respiratory failure with hypoxia (HCC) Chronic respiratory failure Essential hypertension Unspecified essential hypertension Anxiety Anxiety state, unspecified [facility] Diagnosis Financial difficulty- Primary Inadequate material resources [facility]* Diagnosis Primary osteoarthritis of right hip Primary localized osteoarthrosis, pelvic region and thigh [facility] Diagnosis Other migraine without status migrainosus, not intractable [facility] Lung nodules Other nonspecific abnormal finding of lung field [facility] Diagnosis Other fatigue- Primary Neck pain Cervicalgia Chronic nonintractable headache, unspecified headache type Rib pain on left side Chest pain, unspecified [facility] Diagnosis Essential hypertension- Primary Unspecified essential hypertension Primary osteoarthritis of both hips Primary localized osteoarthrosis, pelvic region and thigh DDD (degenerative disc disease), cervical Degeneration of cervical intervertebral disc Closed fracture of one rib of left side with routine healing, subsequent encounter [facility] Diagnosis Idiopathic pulmonary fibrosis (HCC) Idiopathic pulmonary fibrosis [facility] Diagnosis Pain- Primary Generalized pain [facility] Diagnosis Anxiety Anxiety state, unspecified [facility] Diagnosis Primary osteoarthritis of right shoulder- Primary Primary localized osteoarthrosis, shoulder region Primary osteoarthritis of right hip Primary localized osteoarthrosis, pelvic region and thigh Primary osteoarthritis of right knee Primary localized osteoarthrosis, lower leg Primary osteoarthritis of left knee Primary localized osteoarthrosis, lower leg [facility] Diagnosis JENNY (obstructive sleep apnea)- Primary Obstructive sleep apnea (adult) (pediatric) [facility]* Diagnosis Anxiety Anxiety state, unspecified [facility] Diagnosis Mild persistent asthma with [...] History of COVID-19 [facility] Diagnosis SOB (shortness of breath) Shortness of breath [facility] Diagnosis Anxiety Anxiety state, unspecified [facility] Diagnosis Right hip pain Pain in joint, pelvic region and thigh Neck pain Cervicalgia Rib pain on left side Chest pain, unspecified [facility] [place] [facility] Diagnosis Interstitial pulmonary disease (HCC) Postinflammatory pulmonary fibrosis [facility] [place] [facility] Diagnosis Anxiety- Primary Anxiety state, unspecified Encounter for immunization Need for other specified prophylactic vaccination against single bacterial disease Palpitations Psoriasis Other psoriasis Primary hypertension Unspecified essential hypertension Sinus congestion Other diseases of nasal cavity and sinuses [facility] [place] [facility]* Diagnosis SOB (shortness of breath) Shortness of breath [facility] [place] [facility] Diagnosis Other migraine without status migrainosus, not intractable [facility] [place] [facility]* Diagnosis Anxiety Anxiety state, unspecified [facility] [place] [facility]* Diagnosis Idiopathic pulmonary fibrosis (HCC) Idiopathic pulmonary fibrosis [facility] [place] [facility] Diagnosis Anxiety Anxiety state, unspecified [facility] [place] [facility] Diagnosis DON (dyspnea on exertion)- Primary Other dyspnea and respiratory abnormality Palpitations Essential hypertension Unspecified essential hypertension Pure hypercholesterolemia Obstructive sleep apnea Obstructive sleep apnea (adult) (pediatric) DNR (do not resuscitate) Do not resuscitate status [facility] [place] [facility] Diagnosis Anxiety Anxiety state, unspecified [facility] [place] [facility] Diagnosis Anxiety Anxiety state, unspecified [facility] [place] [facility]* Diagnosis Idiopathic pulmonary fibrosis (HCC)- Primary Idiopathic pulmonary fibrosis Chronic respiratory failure with hypoxia (HCC) Chronic respiratory failure [facility] [place] [facility]* Diagnosis Pure hypercholesterolemia [facility] [place] [facility] Diagnosis Essential hypertension- Primary Unspecified essential hypertension Pure hypercholesterolemia Chronic respiratory failure with hypoxia (HCC) Chronic respiratory failure Obstructive sleep apnea Obstructive sleep apnea (adult) (pediatric) Palpitations [facility] [place] [facility] Diagnosis Primary insomnia- [...] single bacterial disease [facility] [place] [facility] Diagnosis Hyponatremia- Primary Hyposmolality and/or hyponatremia Anemia, unspecified type [facility] [place] [facility]* Diagnosis Dysuria- Primary [facility] [place] [facility]* Diagnosis Idiopathic pulmonary fibrosis (HCC) Idiopathic pulmonary fibrosis [facility] [place] [facility] Diagnosis Idiopathic pulmonary fibrosis (HCC) Idiopathic pulmonary fibrosis [facility] [place] [facility] Diagnosis Interstitial pulmonary disease (HCC) Postinflammatory pulmonary fibrosis [facility] [place] [facility] Diagnosis Interstitial pulmonary disease (HCC) Postinflammatory pulmonary fibrosis [facility] [place] [facility] Diagnosis Interstitial pulmonary disease (HCC) Postinflammatory pulmonary fibrosis [facility] [place] [facility] Diagnosis Idiopathic pulmonary fibrosis (HCC)- Primary Idiopathic pulmonary fibrosis Mild persistent asthma without complication Unspecified asthma Chronic respiratory failure with hypoxia (HCC) Chronic respiratory failure Obstructive sleep apnea Obstructive sleep apnea (adult) (pediatric) Gastroesophageal reflux disease, unspecified whether esophagitis present [facility] [place] [facility] Diagnosis Chronic right shoulder pain Pain in joint, shoulder region documented [facility] [place] [facility] Diagnosis Pain Generalized pain documented [facility] [place] [facility]* Diagnosis Pain in right hip Pain in joint, pelvic region and thigh documented [facility] [place] [facility] Diagnosis Chronic pain of right knee Radicular low back pain Thoracic or lumbosacral neuritis or radiculitis, unspecified documented [facility] [place] noteNo assessment information availableWUC Health Work Phone: Reason for referral (narrative)* Outpatient Procedure (Routine) - Authorized Specialty Diagnoses / Procedures Referred By Omar t Referred To Contact [facility] Diagnoses Interstitial pulmonary disease (HCC) Procedures LUNG DIFFUSION CAPACITY (DLCO) DIFFUSING CAPACITY Sona Grier MD [address] [place] [address] [facility] [place] [address] [place] [id number] Referral ID Status Reason Start Date Expiration Date Visits Requested Visits Authorized [id number] Authorized Auto-Generat ed Referral 10/28/2021 11/27/2022 1 1 * Outpatient Procedure (Routine) - Pending Review Specialty Diagnoses / Procedures Referred By Contac t Referred To Contact [facility] Diagnoses Interstitial pulmonary disease (HCC) Procedures LUNG VOLUMES Sona Grier MD [address] [place] [address] [facility] [place] [address] [place] [address] Referral ID Status Reason Start Date Expiration Date Visits Requested Visits Authorized [id number] Pending Review Auto-Generat ed Referral 10/28/2021 11/27/2022 1 1 * Outpatient Procedure (Routine) - Authorized Specialty Diagnoses / Procedures Referred By Contac t Referred To Contact [facility] Diagnoses Interstitial pulmonary disease (HCC) Procedures SPIROMETRY WITH DILATOR IF OBSTRUCTED BRNCDILAT RSPSE SPMTRY PRE&POST-BRNCDILAT ADMN Sona Grier MD [address] [place] [address] [place] [address] Referral ID Status Reason Start Date Expiration Date Visits Requested Visits Authorized [id number] Authorized Auto-Generat ed Referral 10/28/2021 11/27/2022 1 1 * MRI/CT (Routine) - Authorized Specialty Diagnoses / Procedures Referred By Contac t Referred To Contact CT IMAGING Diagnoses Interstitial pulmonary disease (HCC) Procedures CT CHEST WO IVCON DIAGNOSTIC COMPUTED TOMOGRAPHY THORAX W/O CNTRST Sona Grier MD [address] [place] [address] Ct Imaging Referral ID Status Reason Start Date Expiration Date Visits Requested Visits Authorized [id number] Authorized Auto-Generat ed Referral 11/27/2022 1 1 [facility] for referral (narrative)* Diagnostic Procedure Only (Routine) - Authorized Specialty Diagnoses / Procedures Referred By Contac t Referred To Contact XR IMAGING Diagnoses Right hip pain Procedures XR HIP BILATERAL 5V PEL/AP/LAT EACH HIP RADEX HIPS BILATERAL WITH PELVIS MINIMUM 5 VIEWS Сергей Espinoza MD [address] [place] [address] Xr Imaging Referral ID Status Reason Start Date Expiration Date Visits Requested Visits Authorized [id number] Authorized Auto-Generat ed Referral 2 03/16/2023 1 1 * Consult, Test, Treat (Routine) - Pending Review Specialty Diagnoses / Procedures Referred By Contac t Referred To Contact Orthopedics Diagnoses Trochanteric bursitis of right hip Right hip pain Procedures CONSULT TO ORTHOPAEDICS OFFICE/OUTPATIENT [facility] 60-74 MINUTES Сергей Espinoza MD [address] [place] [address] Referral ID Status Reason Start Date Expiration Date Visits Requested Visits Authorized [id number] Pending Review PCP Requested Referral 2 02/14/2023 1 1 [facility] Outpatient Procedure (Routine) - Authorized Specialty Diagnoses / Procedures Referred By Contac t Referred To Contact [facility] Diagnoses Chronic respiratory failure with hypoxia (HCC) Procedures OXIMETRY WITH AMBULATION NONINVASIVE EAR/PULSE OXIMETRY Tomasa Diggs SPRING FORGERConnerMARINE ELECTRICIAN HELPER [address] [place] [address] [facility] [place] [address] [place] [address] Referral ID Status Reason Start Date Expiration Date Visits Requested Visits Authorized [id number] Authorized Auto-Generat ed Referral 03/31/2022 04/30/2023 1 1 [place] [facility] for referral (narrative)* Outpatient Procedure (Routine) - Pending Review Specialty Diagnoses / Procedures [facility] [place] Diagnoses Idiopathic pulmonary fibrosis (HCC) Chronic respiratory failure with hypoxia (HCC) Mild persistent asthma without complication Procedures LUNG DIFFUSION CAPACITY (DLCO) DIFFUSING CAPACITY Tomasa Ramirez APRN.CNP [phone] [place] [address] Referral ID Status Reason Start Date Expiration Date Visits Requested Visits Authorized [id number] Pending Review Auto-Generat ed Referral 05/05/2022 06/04/2023 1 1 * Outpatient Procedure (Routine) - Pending Review Specialty Diagnoses / Procedures [facility] [place] Diagnoses Idiopathic pulmonary fibrosis (HCC) Chronic respiratory failure with hypoxia (HCC) Mild persistent asthma without complication Procedures LUNG VOLUMES Tomasa Ramirez APRN.CNP [phone] [place] [address] Referral ID Status Reason Start Date Expiration Date Visits Requested Visits Authorized [id number] Pending Review Auto-Generat ed Referral 05/05/2022 06/04/2023 1 1 * Outpatient Procedure (Routine) - Pending Review Specialty Diagnoses / Procedures Referred By [facility] Referred To [facility] [place] Diagnoses Idiopathic pulmonary fibrosis (HCC) Chronic respiratory failure with hypoxia (HCC) Mild persistent asthma without complication Procedures SPIROMETRY - BASELINE AND POST DILATOR BRNCDILAT RSPSE SPMTRY PRE&POST-BRNCDILAT ADMN Tomasa Ramirez APRN.CNP [address] [place] [address] [place] [address] Referral ID Status Reason Start Date Expiration Date Visits Requested Visits Authorized [id number] Pending Review Auto-Generat ed Referral 05/05/2022 06/04/2023 1 1 [facility] for referral (narrative)* Diagnostic Procedure Only (Routine) - Pending Review Specialty Diagnoses / Procedures Referred By Contac t Referred To Contact XR IMAGING Diagnoses Rib pain on left side Procedures XR RIBS/CHEST 3V AP RIB/OBLS/CXR LEFT RADEX RIBS UNI W/POSTEROANT CH MINIMUM 3 VIEWS Сергей Espinoza MD [address] [place] [address] Xr Imaging Referral ID Status Reason Start Date Expiration Date Visits Requested Visits Authorized [id number] Pending Review Auto-Generat ed Referral 08/22/2022 09/21/2023 1 1 * Diagnostic Procedure Only (Routine) - Pending Review Specialty Diagnoses / Procedures Referred By Contac t Referred To Contact XR IMAGING Diagnoses Neck pain Procedures XR CERV OTHER 4V AP/LAT/OBL RADEX SPINE CERVICAL 4 OR 5 VIEWS Сергей Espinoza MD [address] [place] [address] Xr Imaging Referral ID Status Reason Start Date Expiration Date Visits Requested Visits Authorized [id number] Pending Review Auto-Generat ed Referral 08/22/2022 09/21/2023 1 1 [facility] for referral (narrative)* Diagnostic Procedure Only (Routine) - Pending Review Specialty Diagnoses / Procedures Referred By Contac t Referred To Contact XR IMAGING Diagnoses Pain Procedures XR KNEE GENERAL 4V AP BOTH/PA BOTH/LAT/MERC BILATERAL RADIOLOGIC EXAM KNEE COMPLETE 4/MORE VIEWS Al Woods PA-C [address] [place] [address] Xr Imaging Referral ID Status Reason Start Date Expiration Date Visits Requested Visits Authorized [id number] Pending Review Auto-Generat ed Referral 10/08/2022 11/07/2023 1 1 [facility] for referral (narrative)* Diagnostic Procedure Only (Routine) - Closed Specialty Diagnoses / Procedures Referred By Contac t Referred To Contact XR IMAGING Diagnoses Rib pain on left side Procedures XR RIBS/CHEST 3V AP RIB/OBLS/CXR LEFT RADEX RIBS UNI W/POSTEROANT CH MINIMUM 3 VIEWS Сергей Espinoza MD [address] [place] [address] [place] [address] Referral ID Status Reason Start Date Expiration Date V isits Requested Visits Authorized [id number] Closed Auto-Generate d Referral 08/22/2022 09/21/2023 1 1 * Diagnostic Procedure Only (Routine) - Closed Specialty Diagnoses / Procedures Referred By Contac t Referred To Contact XR IMAGING Diagnoses Neck pain Procedures XR CERV OTHER 4V AP/LAT/OBL RADEX SPINE CERVICAL 4 OR 5 VIEWS Сергей Espinoza MD [address] [place] [address] [place] [address] Referral ID Status Reason Start Date Expiration Date V isits Requested Visits Authorized [id number] Closed Auto-Generate d Referral 08/22/2022 09/21/2023 1 1 * Diagnostic Procedure Only (Routine) - Closed Specialty Diagnoses / Procedures Referred By Contac t Referred To Contact XR IMAGING Diagnoses Right hip pain Procedures XR HIP BILATERAL 5V PEL/AP/LAT EACH HIP RADEX HIPS BILATERAL WITH PELVIS MINIMUM 5 VIEWS Сергей Espinoza MD [address] [place] [address] [place] [address] Referral ID Status Reason Start Date Expiration Date V isits Requested Visits Authorized [id number] Closed Auto-Generate d Referral 02/14/2022 03/16/2023 1 1 [facility] for referral (narrative)* Outpatient Procedure (Routine) - Closed Specialty Diagnoses / Procedures Referred By Contac t Referred To Contact [facility] [place] Diagnoses SOB (shortness of breath) Procedures ECHO ECHO TTHRC R-T 2D W/WOM-MODE COMPL SPEC&COLR D Sona Grier MD [address] [place] [address] [facility] [place] [address] [place] [address] Referral ID Status Reason Start Date Expiration Date V isits Requested Visits Authorized [id number] Closed Auto-Generate d Referral 11/28/2022 11/28/2023 1 1 [facility] for referral (narrative)* Diagnostic Procedure Only (Routine) - Closed Specialty Diagnoses / Procedures [facility] Referred To Contact XR IMAGING Diagnoses Chronic right shoulder pain Procedures XR SHOULDER GENERAL 3V OR MORE AP/TRUE AP/OTHER RIGHT RADEX SHOULDER COMPLETE MINIMUM 2 VIEWS Сергей Espinoza MD [address] [place] [address] [place] [address] Referral ID Status Reason Start Date Expiration Date V isits Requested Visits Authorized [id number] Closed Auto-Generate d Referral 09/29/2022 10/29/2023 1 1 [facility] for referral (narrative)* Diagnostic Procedure Only (Routine) - Closed Specialty Diagnoses / Procedures [facility] Referred To Contact XR IMAGING Diagnoses Pain Procedures XR KNEE GENERAL 4V AP BOTH/PA BOTH/LAT/MERC BILATERAL RADIOLOGIC EXAM KNEE COMPLETE 4/MORE VIEWS Al Woods PA-C [address] [place] [address] [place] [address] Referral ID Status Reason Start Date Expiration Date V isits Requested Visits Authorized [id number] Closed Auto-Generate d Referral 10/08/2022 11/07/2023 1 1 [facility] for referral (narrative)* Diagnostic Procedure Only (Routine) - Closed Specialty Diagnoses / Procedures Referred By Contac t Referred To Contact XR IMAGING Diagnoses Pain in right hip Procedures XR HIP GENERAL 3V PELV/AP/LAT RIGHT RADEX HIP UNILATERAL WITH PELVIS 2-3 VIEWS Hero Rubio PA-C [address] [place] [address] [place] [address] Referral ID Status Reason Start Date Expiration Date V isits Requested Visits Authorized [id number] Closed Auto-Generate d Referral 03/19/2022 04/18/2023 1 1 [facility] for referral (narrative)* Diagnostic Procedure Only (Routine) - Closed Specialty Diagnoses / Procedures Referred By Contac t Referred To Contact XR IMAGING Diagnoses Radicular low back pain Procedures XR SACRUM/COCCYX 3V AP/LAT RADEX SACRUM & COCCYX MINIMUM 2 VIEWS Сергей Espinoza MD [address] [place] [address] [place] [address] Referral ID Status Reason Start Date Expiration Date V isits Requested Visits Authorized [id number] Closed Auto-Generate d Referral 12/13/2021 01/12/2023 1 1 * Diagnostic Procedure Only (Routine) - Closed Specialty Diagnoses / Procedures Referred By Contac t Referred To Contact XR IMAGING Diagnoses Radicular low back pain Procedures XR LUMBAR GENERAL 3V AP/LAT/L5-S1 RADEX SPINE LUMBOSACRAL 2/3 VIEWS Сергей Espinoza MD [address] [place] [address] [place] [address] Referral ID Status Reason Start Date Expiration Date V isits Requested Visits Authorized [id number] Closed Auto-Generate d Referral 12/13/2021 01/12/2023 1 1 * Diagnostic Procedure Only (Routine) - Closed Specialty Diagnoses / Procedures Referred By Contac t Referred To Contact XR IMAGING Diagnoses Chronic pain of right knee Procedures XR KNEE GENERAL 4V AP BOTH/PA BOTH/LAT/MERC RIGHT RADIOLOGIC EXAM KNEE COMPLETE 4/MORE VIEWS Сергей Espinoza MD [address] [place] [address] [place] [address] Referral ID Status Reason Start Date Expiration Date V isits Requested Visits Authorized [id number] Closed Auto-Generate d Referral 12/13/2021 01/12/2023 1 1 [facility] for referral (narrative)No reason for referral information availableWUC Health Work Phone: Reason for visit Narrative* Diagnostic Procedure Only (Routine) - Closed Specialty Diagnoses / Procedures Referred By Contac t Referred To Contact XR IMAGING Diagnoses Rib pain on left side Procedures XR RIBS/CHEST 3V AP RIB/OBLS/CXR LEFT RADEX RIBS UNI W/POSTEROANT CH MINIMUM 3 VIEWS Сергей Espinoza MD [address] [place] [address] [place] [address] Referral ID Status Reason Start Date Expiration Date V isits Requested Visits Authorized [id number] Closed Auto-Generate d Referral 08/22/2022 09/21/2023 1 1 [facility] for visit Narrative* Outpatient Procedure (Routine) - Closed Specialty Diagnoses / Procedures Referred By Contac t Referred To Contact [facility] Diagnoses SOB (shortness of breath) Procedures ECHO ECHO TTHRC R-T 2D W/WOM-MODE COMPL SPEC&COLR D Sona Grier MD [address] [place] [address] [facility] [place] [address] [place] [address] Referral ID Status Reason Start Date Expiration Date V isits Requested Visits Authorized [id number] Closed Auto-Generate d Referral 11/28/2022 11/28/2023 1 1 [facility] for visit Narrative* Diagnostic Procedure Only (Routine) - Closed Specialty Diagnoses / Procedures Referred By Contac t Referred To Contact XR IMAGING Diagnoses Chronic right shoulder pain Procedures XR SHOULDER GENERAL 3V OR MORE AP/TRUE AP/OTHER RIGHT RADEX SHOULDER COMPLETE MINIMUM 2 VIEWS Сергей Espinoza MD [address] [place] [address] [place] [address] Referral ID Status Reason Start Date Expiration Date V isits Requested Visits Authorized [id number] Closed Auto-Generate d Referral 09/29/2022 10/29/2023 1 1 [facility] for visit Narrative* Diagnostic Procedure Only (Routine) - Closed Specialty Diagnoses / Procedures Referred By Contac t Referred To Contact XR IMAGING Diagnoses Pain Procedures XR KNEE GENERAL 4V AP BOTH/PA BOTH/LAT/MERC BILATERAL RADIOLOGIC EXAM KNEE COMPLETE 4/MORE VIEWS Al Woods PA-C [address] [place] [address] [place] [address] Referral ID Status Reason Start Date Expiration Date V isits Requested Visits Authorized [id number] Closed Auto-Generate d Referral 10/08/2022 11/07/2023 1 1 [facility] for visit Narrative* Diagnostic Procedure Only (Routine) - Closed Specialty Diagnoses / Procedures Referred By Contac t Referred To Contact XR IMAGING Diagnoses Pain in right hip Procedures XR HIP GENERAL 3V PELV/AP/LAT RIGHT RADEX HIP UNILATERAL WITH PELVIS 2-3 VIEWS Hero Rubio PA-C [address] [place] [address] [place] [address] Referral ID Status Reason Start Date Expiration Date V isits Requested Visits Authorized [id number] Closed Auto-Generate d Referral 03/19/2022 04/18/2023 1 1 [facility] for visit Narrative* Diagnostic Procedure Only (Routine) - Closed Specialty Diagnoses / Procedures Referred By Contac t Referred To Contact XR IMAGING Diagnoses Radicular low back pain Procedures XR SACRUM/COCCYX 3V AP/LAT RADEX SACRUM & COCCYX MINIMUM 2 VIEWS Сергей Espinoza MD [address] [place] [address] [place] [address] Referral ID Status Reason Start Date Expiration Date V isits Requested Visits Authorized [id number] Closed Auto-Generate d Referral 12/13/2021 01/12/2023 1 1 [facility] Summary Purpose Family History No Family History Records FoundNo Family History Records FoundNo Family History Records FoundNo Family History Records FoundNo Family History Records FoundNo Family History Records Found Advance Directives No Advanced Directives Records FoundDocuments on File Type Date 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 Advance Directive(s) Advance Directive(s) 12/21/2020 6:28 PM Advance Directive(s) 06/07/2018 1:54 PM Advance Directive(s) 09/09/2017 12:13 PM Advance Directive(s) 04/01/2017 9:07 AM Advance Directive(s) 11/14/2016 9:35 AM Advance Directive(s) 06/03/2016 1:04 PM Advance Directive(s) 05/26/2016 4:39 PM Reason for Referral Specialty Diagnoses / Procedures Referred By Contac t Referred To Contact Сергей Espinoza MD [address] [place] [address] Referral ID Status Reason Start Date Expiration Date Visits Re quested Visits Authorized [id number] Closed 1 1 Specialty Diagnoses / Procedures Referred By Contac t Referred To Contact Diagnoses Idiopathic pulmonary fibrosis (HCC) Brinda Bah, PA-C [address] [place] [address] Referral ID Status Reason Start Date Expiration Date V isits Requested Visits Authorized [id number] Authorized 09/26/2021 09/25/2022 1 1 Specialty Diagnoses / Procedures Referred By Contac t Referred To Contact Brinda Dominguez APRN.[facility] [address] [place] [address] Referral ID Status Reason Start Date Expiration Date V isits Requested Visits Authorized [id number] Pending Review 1 1 Specialty Diagnoses / Procedures Referred By Contac t Referred To Contact CT IMAGING Diagnoses Lung nodules Procedures CT CHEST WO IVCON DIAGNOSTIC COMPUTED TOMOGRAPHY THORAX W/O CNTRST Sona Grier MD [address] [place] [address] Ct Imaging Referral ID Status Reason Start Date Expiration Date Visits Requested Visits Authorized [id number] Pending Review Auto-Generat ed Referral 07/09/2022 05/11/2023 1 1 Referral ID Status Reason Start Date Expiration Date V isits Requested Visits Authorized [id number] Closed Auto-Generate d Referral 07/09/2022 05/11/2023 1 1 Specialty Diagnoses / Procedures Referred By Contac t Referred To Contact Kenyon Zuniga APRN.[facility] [address] [place] [address] Referral ID Status Reason Start Date Expiration Date V isits Requested Visits Authorized [id number] Pending Review 1 1 Specialty Diagnoses / Procedures Referred By Contac t Referred To Contact Cardiology / PULMONARY MEDICINE Diagnoses SOB (shortness of breath) Procedures CONSULT TO CARDIOLOGY OFFICE/OUTPATIENT [facility] 60-74 MINUTES Sona Grier MD [address] [place] [address] [facility] [address] [address] Referral ID Status Reason Start Date Expiration Date Visits Requested Visits Authorized [id number] Authorized PCP Requested Referral 11/28/2022 11/28/2023 1 1 Specialty Diagnoses / Procedures Referred By Contac t Referred To Contact [facility] Diagnoses SOB (shortness of breath) Procedures ECG COMPLETE ECG ROUTINE ECG W/LEAST 12 LDS W/I&R Sona Grier MD [phone] [facility] [place] [address] [place] [address] Referral ID Status Reason Start Date Expiration Date Visits Requested Visits Authorized [id number] Pending Review Auto-Generat ed Referral 11/28/2022 11/28/2023 1 1 Specialty Diagnoses / Procedures Referred By Contac t Referred To Contact [facility] [place] Diagnoses SOB (shortness of breath) Procedures ECHO ECHO TTHRC R-T 2D W/WOM-MODE COMPL SPEC&COLR D Sona Grier MD [address] [place] [address] [facility] [address] [id number] Referral ID Status Reason Start Date Expiration Date Visits Requested Visits Authorized [id number] Authorized Auto-Generat ed Referral 11/28/2022 11/28/2023 1 1 Specialty Diagnoses / Procedures Referred By Omar t Referred To Contact CT IMAGING Diagnoses Interstitial pulmonary disease (HCC) Procedures CT CHEST WO IVCON DIAGNOSTIC COMPUTED TOMOGRAPHY THORAX W/O CNTRST Sona Grier MD [phone] Imaging [place] [address] Referral ID Status Reason Start Date Expiration Date V isits Requested Visits Authorized [id number] Closed Auto-Generate d Referral 01/28/2022 11/27/2022 1 1 Referral ID Status Reason Start Date Expiration Date Visits Re quested Visits Authorized [id number] Closed 1 1 Specialty Diagnoses / Procedures Referred By Omar mixon Referred To Contact Tomasa Ramirez APRN.[facility] [phone] Referral ID Status Reason Start Date Expiration Date V isits Requested Visits Authorized [id number] Authorized 03/02/2023 03/01/2024 1 1 Chief Complaint [...] MONTHLY EXAM April 05, 2024 7 :35pm ALF LAB WORK April 07, 2024 5:00am LABWORK April 19, 2024 5:00am MONTHLY NOTE April 21, 2024 5:01pm LABWORK April 23, 2024 12:00pm MONTHLY NOTE May 11, 2024 12: 09pm ALF LAB WORK May 17, 2024 5 :00am Chief Complaint Admit Date MONTHLY EXAM April 05, 2024 7 :35pm ALF LAB WORK April 07, 2024 5:00am LABWORK April 19, 2024 5:00am MONTHLY NOTE April 21, 2024 5:01pm LABWORK April 23, 2024 12:00pm MONTHLY NOTE May 11, 2024 12: 09pm ALF LAB WORK May 17, 2024 5 :00am MONTHLY EXAM May 31, 2024 5:25 pm ALF LAB WORK July 19, 2024 5:0 0am Chief Complaint Admit Date ALF LAB WORK May 17, 2024 5 :00am MONTHLY EXAM May 31, 2024 5:25 pm MONTHLY EXAM June 30, 2024 10:15a m ALF LAB WORK July 19, 2024 5:0 0am Chief Complaint Admit Date ALF LAB WORK May 17, 2024 5 :00am MONTHLY EXAM May 31, 2024 5:25 pm MONTHLY EXAM June 30, 2024 10:15a m ALF LAB WORK July 19, 2024 5:0 0am NEW CONCERN July 26, 2024 3:15p m Chief Complaint Admit Date MONTHLY EXAM May 31, 2024 5:25 pm MONTHLY EXAM June 30, 2024 10:15a m ALF LAB WORK July 19, 2024 5:0 0am NEW CONCERN July 26, 2024 3:15p m MONTHLY EXAM August 02, 2024 5:30p m Chief Complaint Admit Date MONTHLY EXAM May 31, 2024 5:25 pm MONTHLY EXAM June 30, 2024 10:15a m ALF LAB WORK July 19, 2024 5:0 0am NEW CONCERN July 26, 2024 3:15p m MONTHLY EXAM August 02, 2024 5:30p m NEW CONCERN August 08, 2024 2:45p m Chief Complaint Admit Date MONTHLY EXAM June 30, 2024 10:15a m ALF LAB WORK July 19, 2024 5:0 0am NEW CONCERN July 26, 2024 3:15p m MONTHLY EXAM August 02, 2024 5:30p m NEW CONCERN August 08, 2024 2:45p m ALF LAB WORK September 13, 2024 5: 03am ALF LAB WORK September 14, 2024 5: 35am New Concern September 16, 2024 7:33 pm ALF LAB WORK October 06, 2024 4 :00am Chief Complaint Admit Date MONTHLY EXAM June 30, 2024 10:15a m ALF LAB WORK July 19, 2024 5:0 0am NEW CONCERN July 26, 2024 3:15p m MONTHLY EXAM August 02, 2024 5:30p m NEW CONCERN August 08, 2024 2:45p m ALF LAB WORK September 13, 2024 5: 03am New Concern September 13, 2024 1:11 pm ALF LAB WORK September 14, 2024 5: 35am New Concern September 16, 2024 7:33 pm ALF LAB WORK October 06, 2024 4 :00am Additional Source Comments INFORMATION SOURCE (unrecogn ized section and content) DATE CREATED AUTHOR 12/24/2020 [facility] DATE CREATED AUTHOR AUTHOR'S ORGANIZ ATION 04/20/2022 [facility] DATE CREATED AUTHOR AUTHOR'S ORGANIZ ATION 04/20/2022 [employer] DATE CREATED AUTHOR AUTHOR'S ORGANIZ ATION 05/01/2023 [facility] DATE CREATED AUTHOR AUTHOR'S ORGANIZ ATION 04/19/2024 [facility] DATE CREATED AUTHOR AUTHOR'S ORGANIZ ATION 10/15/2024 [facility] Source Comments (unrecognize d section and content) In the event this informatio n is protected by the Federal Confidentiality of Alcohol and Drug Abuse Patient Records regulations: The Federal rules restrict any use of the information to criminally investigate or prosecute any alcohol or drug abuse patient.[facility] HospitalIn the event this information is protected by the Federal Confidentiality of Alcohol and Drug Abuse Patient Records regulations: The Federal rules restrict any use of the information to criminally investigate or prosecute any alcohol or drug abuse patient.[facility] HospitalIn the event this information is protected by the Federal Confidentiality of Alcohol and Drug Abuse Patient Records regulations: The Federal rules restrict any use of the information to criminally investigate or prosecute any alcohol or drug abuse patient.[facility] HospitalIn the event this information is protected by the Federal Confidentiality of Alcohol and Drug Abuse Patient Records regulations: The Federal rules restrict any use of the information to criminally investigate or prosecute any alcohol or drug abuse patient.[facility] HospitalIn the event this information is protected by the Federal Confidentiality of Alcohol and Drug Abuse Patient Records regulations: The Federal rules restrict any use of the information to criminally investigate or prosecute any alcohol or drug abuse patient.[facility] HospitalIn the event this information is protected by the Federal Confidentiality of Alcohol and Drug Abuse Patient Records regulations: The Federal rules restrict any use of the information to criminally investigate or prosecute any alcohol or drug abuse patient.[facility] HospitalIn the event this information is protected by the Federal Confidentiality of Alcohol and Drug Abuse Patient Records regulations: The Federal rules restrict any use of the information to criminally investigate or prosecute any alcohol or drug abuse patient.[facility] HospitalIn the event this information is protected by the Federal Confidentiality of Alcohol and Drug Abuse Patient Records regulations: The Federal rules restrict any use of the information to criminally investigate or prosecute any alcohol or drug abuse patient.[facility] HospitalIn the event this information is protected by the Federal Confidentiality of Alcohol and Drug Abuse Patient Records regulations: The Federal rules restrict any use of the information to criminally investigate or prosecute any alcohol or drug abuse patient.[facility] HospitalIn the event this information is protected by the Federal Confidentiality of Alcohol and Drug Abuse Patient Records regulations: The Federal rules restrict any use of the information to criminally investigate or prosecute any alcohol or drug abuse patient.[facility] HospitalIn the event this information is protected by the Federal Confidentiality of Alcohol and Drug Abuse Patient Records regulations: The Federal rules restrict any use of the information to criminally investigate or prosecute any alcohol or drug abuse patient.[facility] HospitalIn the event this information is protected by the Federal Confidentiality of Alcohol and Drug Abuse Patient Records regulations: The Federal rules restrict any use of the information to criminally investigate or prosecute any alcohol or drug abuse patient.[facility] HospitalIn the event this information is protected by the Federal Confidentiality of Alcohol and Drug Abuse Patient Records regulations: The Federal rules restrict any use of the information to criminally investigate or prosecute any alcohol or drug abuse patient.[facility] HospitalIn the event this information is protected by the Federal Confidentiality of Alcohol and Drug Abuse Patient Records regulations: The Federal rules restrict any use of the information to criminally investigate or prosecute any alcohol or drug abuse patient.[facility] HospitalIn the event this information is protected by the Federal Confidentiality of Alcohol and Drug Abuse Patient Records regulations: The Federal rules restrict any use of the information to criminally investigate or prosecute any alcohol or drug abuse patient.[facility] HospitalIn the event this information is protected by the Federal Confidentiality of Alcohol and Drug Abuse Patient Records regulations: The Federal rules restrict any use of the information to criminally investigate or prosecute any alcohol or drug abuse patient.[facility] HospitalIn the event this information is protected by the Federal Confidentiality of Alcohol and Drug Abuse Patient Records regulations: The Federal rules restrict any use of the information to criminally investigate or prosecute any alcohol or drug abuse patient.[facility] HospitalIn the event this information is protected by the Federal Confidentiality of Alcohol and Drug Abuse Patient Records regulations: The Federal rules restrict any use of the information to criminally investigate or prosecute any alcohol or drug abuse patient.[facility] HospitalIn the event this information is protected by the Federal Confidentiality of Alcohol and Drug Abuse Patient Records regulations: The Federal rules restrict any use of the information to criminally investigate or prosecute any alcohol or drug abuse patient.[facility] HospitalIn the event this information is protected by the Federal Confidentiality of Alcohol and Drug Abuse Patient Records regulations: The Federal rules restrict any use of the information to criminally investigate or prosecute any alcohol or drug abuse patient.[facility] HospitalIn the event this information is protected by the Federal Confidentiality of Alcohol and Drug Abuse Patient Records regulations: The Federal rules restrict any use of the information to criminally investigate or prosecute any alcohol or drug abuse patient.[facility] HospitalIn the event this information is protected by the Federal Confidentiality of Alcohol and Drug Abuse Patient Records regulations: The Federal rules restrict any use of the information to criminally investigate or prosecute any alcohol or drug abuse patient.[facility] HospitalIn the event this information is protected by the Federal Confidentiality of Alcohol and Drug Abuse Patient Records regulations: The Federal rules restrict any use of the information to criminally investigate or prosecute any alcohol or drug abuse patient.[facility] HospitalIn the event this information is protected by the Federal Confidentiality of Alcohol and Drug Abuse Patient Records regulations: The Federal rules restrict any use of the information to criminally investigate or prosecute any alcohol or drug abuse patient.[facility] HospitalIn the event this information is protected by the Federal Confidentiality of Alcohol and Drug Abuse Patient Records regulations: The Federal rules restrict any use of the information to criminally investigate or prosecute any alcohol or drug abuse patient.[facility] HospitalIn the event this information is protected by the Federal Confidentiality of Alcohol and Drug Abuse Patient Records regulations: The Federal rules restrict any use of the information to criminally investigate or prosecute any alcohol or drug abuse patient.[facility] HospitalIn the event this information is protected by the Federal Confidentiality of Alcohol and Drug Abuse Patient Records regulations: The Federal rules restrict any use of the information to criminally investigate or prosecute any alcohol or drug abuse patient.[facility] HospitalIn the event this information is protected by the Federal Confidentiality of Alcohol and Drug Abuse Patient Records regulations: The Federal rules restrict any use of the information to criminally investigate or prosecute any alcohol or drug abuse patient.[facility] HospitalIn the event this information is protected by the Federal Confidentiality of Alcohol and Drug Abuse Patient Records regulations: The Federal rules restrict any use of the information to criminally investigate or prosecute any alcohol or drug abuse patient.[facility] HospitalIn the event this information is protected by the Federal Confidentiality of Alcohol and Drug Abuse Patient Records regulations: The Federal rules restrict any use of the information to criminally investigate or prosecute any alcohol or drug abuse patient.[facility] HospitalIn the event this information is protected by the Federal Confidentiality of Alcohol and Drug Abuse Patient Records regulations: The Federal rules restrict any use of the information to criminally investigate or prosecute any alcohol or drug abuse patient.[facility] HospitalIn the event this information is protected by the Federal Confidentiality of Alcohol and Drug Abuse Patient Records regulations: The Federal rules restrict any use of the information to criminally investigate or prosecute any alcohol or drug abuse patient.[facility] HospitalIn the event this information is protected by the Federal Confidentiality of Alcohol and Drug Abuse Patient Records regulations: The Federal rules restrict any use of the information to criminally investigate or prosecute any alcohol or drug abuse patient.[facility] HospitalIn the event this information is protected by the Federal Confidentiality of Alcohol and Drug Abuse Patient Records regulations: The Federal rules restrict any use of the information to criminally investigate or prosecute any alcohol or drug abuse patient.[facility] HospitalIn the event this information is protected by the Federal Confidentiality of Alcohol and Drug Abuse Patient Records regulations: The Federal rules restrict any use of the information to criminally investigate or prosecute any alcohol or drug abuse patient.[facility] HospitalIn the event this information is protected by the Federal Confidentiality of Alcohol and Drug Abuse Patient Records regulations: The Federal rules restrict any use of the information to criminally investigate or prosecute any alcohol or drug abuse patient.[facility] the event this information is protected by the Federal Confidentiality of Alcohol and Drug Abuse Patient Records regulations: The Federal rules restrict any use of the information to criminally investigate or prosecute any alcohol or drug abuse patient.[facility] HospitalIn the event this information is protected by the Federal Confidentiality of Alcohol and Drug Abuse Patient Records regulations: The Federal rules restrict any use of the information to criminally investigate or prosecute any alcohol or drug abuse patient.[facility] HospitalIn the event this information is protected by the Federal Confidentiality of Alcohol and Drug Abuse Patient Records regulations: The Federal rules restrict any use of the information to criminally investigate or prosecute any alcohol or drug abuse patient.[facility]In the event this information is protected by the Federal Confidentiality of Alcohol and Drug Abuse Patient Records regulations: The Federal rules restrict any use of the information to criminally investigate or prosecute any alcohol or drug abuse patient.[facility] HospitalIn the event this information is protected by the Federal Confidentiality of Alcohol and Drug Abuse Patient Records regulations: The Federal rules restrict any use of the information to criminally investigate or prosecute any alcohol or drug abuse patient.[facility] HospitalIn the event this information is protected by the Federal Confidentiality of Alcohol and Drug Abuse Patient Records regulations: The Federal rules restrict any use of the information to criminally investigate or prosecute any alcohol or drug abuse patient.[facility] HospitalIn the event this information is protected by the Federal Confidentiality of Alcohol and Drug Abuse Patient Records regulations: The Federal rules restrict any use of the information to criminally investigate or prosecute any alcohol or drug abuse patient.[facility] HospitalIn the event this information is protected by the Federal Confidentiality of Alcohol and Drug Abuse Patient Records regulations: The Federal rules restrict any use of the information to criminally investigate or prosecute any alcohol or drug abuse patient.[facility] HospitalIn the event this information is protected by the Federal Confidentiality of Alcohol and Drug Abuse Patient Records regulations: The Federal rules restrict any use of the information to criminally investigate or prosecute any alcohol or drug abuse patient.[facility] HospitalIn the event this information is protected by the Federal Confidentiality of Alcohol and Drug Abuse Patient Records regulations: The Federal rules restrict any use of the information to criminally investigate or prosecute any alcohol or drug abuse patient.[facility] HospitalIn the event this information is protected by the Federal Confidentiality of Alcohol and Drug Abuse Patient Records regulations: The Federal rules restrict any use of the information to criminally investigate or prosecute any alcohol or drug abuse patient.[facility] HospitalIn the event this information is protected by the Federal Confidentiality of Alcohol and Drug Abuse Patient Records regulations: The Federal rules restrict any use of the information to criminally investigate or prosecute any alcohol or drug abuse patient.[facility] HospitalIn the event this information is protected by the Federal Confidentiality of Alcohol and Drug Abuse Patient Records regulations: The Federal rules restrict any use of the information to criminally investigate or prosecute any alcohol or drug abuse patient.[facility] HospitalIn the event this information is protected by the Federal Confidentiality of Alcohol and Drug Abuse Patient Records regulations: The Federal rules restrict any use of the information to criminally investigate or prosecute any alcohol or drug abuse patient.[facility] HospitalIn the event this information is protected by the Federal Confidentiality of Alcohol and Drug Abuse Patient Records regulations: The Federal rules restrict any use of the information to criminally investigate or prosecute any alcohol or drug abuse patient.[facility] HospitalIn the event this information is protected by the Federal Confidentiality of Alcohol and Drug Abuse Patient Records regulations: The Federal rules restrict any use of the information to criminally investigate or prosecute any alcohol or drug abuse patient.[facility] HospitalIn the event this information is protected by the Federal Confidentiality of Alcohol and Drug Abuse Patient Records regulations: The Federal rules restrict any use of the information to criminally investigate or prosecute any alcohol or drug abuse patient.[facility] HospitalIn the event this information is protected by the Federal Confidentiality of Alcohol and Drug Abuse Patient Records regulations: The Federal rules restrict any use of the information to criminally investigate or prosecute any alcohol or drug abuse patient.[facility] HospitalIn the event this information is protected by the Federal Confidentiality of Alcohol and Drug Abuse Patient Records regulations: The Federal rules restrict any use of the information to criminally investigate or prosecute any alcohol or drug abuse patient.[facility] HospitalIn the event this information is protected by the Federal Confidentiality of Alcohol and Drug Abuse Patient Records regulations: The Federal rules restrict any use of the information to criminally investigate or prosecute any alcohol or drug abuse patient.[facility] HospitalIn the event this information is protected by the Federal Confidentiality of Alcohol and Drug Abuse Patient Records regulations: The Federal rules restrict any use of the information to criminally investigate or prosecute any alcohol or drug abuse patient.[facility] HospitalIn the event this information is protected by the Federal Confidentiality of Alcohol and Drug Abuse Patient Records regulations: The Federal rules restrict any use of the information to criminally investigate or prosecute any alcohol or drug abuse patient.[facility] HospitalIn the event this information is protected by the Federal Confidentiality of Alcohol and Drug Abuse Patient Records regulations: The Federal rules restrict any use of the information to criminally investigate or prosecute any alcohol or drug abuse patient.[facility] HospitalIn the event this information is protected by the Federal Confidentiality of Alcohol and Drug Abuse Patient Records regulations: The Federal rules restrict any use of the information to criminally investigate or prosecute any alcohol or drug abuse patient.[facility] HospitalIn the event this information is protected by the Federal Confidentiality of Alcohol and Drug Abuse Patient Records regulations: The Federal rules restrict any use of the information to criminally investigate or prosecute any alcohol or drug abuse patient.[facility] HospitalIn the event this information is protected by the Federal Confidentiality of Alcohol and Drug Abuse Patient Records regulations: The Federal rules restrict any use of the information to criminally investigate or prosecute any alcohol or drug abuse patient.[facility] HospitalIn the event this information is protected by the Federal Confidentiality of Alcohol and Drug Abuse Patient Records regulations: The Federal rules restrict any use of the information to criminally investigate or prosecute any alcohol or drug abuse patient.[facility] HospitalIn the event this information is protected by the Federal Confidentiality of Alcohol and Drug Abuse Patient Records regulations: The Federal rules restrict any use of the information to criminally investigate or prosecute any alcohol or drug abuse patient.[facility] HospitalIn the event this information is protected by the Federal Confidentiality of Alcohol and Drug Abuse Patient Records regulations: The Federal rules restrict any use of the information to criminally investigate or prosecute any alcohol or drug abuse patient.[facility] HospitalIn the event this information is protected by the Federal Confidentiality of Alcohol and Drug Abuse Patient Records regulations: The Federal rules restrict any use of the information to criminally investigate or prosecute any alcohol or drug abuse patient.[facility] HospitalIn the event this information is protected by the Federal Confidentiality of Alcohol and Drug Abuse Patient Records regulations: The Federal rules restrict any use of the information to criminally investigate or prosecute any alcohol or drug abuse patient.[facility] HospitalIn the event this information is protected by the Federal Confidentiality of Alcohol and Drug Abuse Patient Records regulations: The Federal rules restrict any use of the information to criminally investigate or prosecute any alcohol or drug abuse patient.[facility] HospitalIn the event this information is protected by the Federal Confidentiality of Alcohol and Drug Abuse Patient Records regulations: The Federal rules restrict any use of the information to criminally investigate or prosecute any alcohol or drug abuse patient.[facility] HospitalIn the event this information is protected by the Federal Confidentiality of Alcohol and Drug Abuse Patient Records regulations: The Federal rules restrict any use of the information to criminally investigate or prosecute any alcohol or drug abuse patient.[facility] HospitalIn the event this information is protected by the Federal Confidentiality of Alcohol and Drug Abuse Patient Records regulations: The Federal rules restrict any use of the information to criminally investigate or prosecute any alcohol or drug abuse patient.[facility] HospitalIn the event this information is protected by the Federal Confidentiality of Alcohol and Drug Abuse Patient Records regulations: The Federal rules restrict any use of the information to criminally investigate or prosecute any alcohol or drug abuse patient.[facility] HospitalIn the event this information is protected by the Federal Confidentiality of Alcohol and Drug Abuse Patient Records regulations: The Federal rules restrict any use of the information to criminally investigate or prosecute any alcohol or drug abuse patient.[facility] HospitalIn the event this information is protected by the Federal Confidentiality of Alcohol and Drug Abuse Patient Records regulations: The Federal rules restrict any use of the information to criminally investigate or prosecute any alcohol or drug abuse patient.[facility] HospitalIn the event this information is protected by the Federal Confidentiality of Alcohol and Drug Abuse Patient Records regulations: The Federal rules restrict any use of the information to criminally investigate or prosecute any alcohol or drug abuse patient.[facility] HospitalIn the event this information is protected by the Federal Confidentiality of Alcohol and Drug Abuse Patient Records regulations: The Federal rules restrict any use of the information to criminally investigate or prosecute any alcohol or drug abuse patient.[facility] HospitalIn the event this information is protected by the Federal Confidentiality of Alcohol and Drug Abuse Patient Records regulations: The Federal rules restrict any use of the information to criminally investigate or prosecute any alcohol or drug abuse patient.[facility] HospitalIn the event this information is protected by the Federal Confidentiality of Alcohol and Drug Abuse Patient Records regulations: The Federal rules restrict any use of the information to criminally investigate or prosecute any alcohol or drug abuse patient.[facility] HospitalIn the event this information is protected by the Federal Confidentiality of Alcohol and Drug Abuse Patient Records regulations: The Federal rules restrict any use of the information to criminally investigate or prosecute any alcohol or drug abuse patient.[facility] HospitalIn the event this information is protected by the Federal Confidentiality of Alcohol and Drug Abuse Patient Records regulations: The Federal rules restrict any use of the information to criminally investigate or prosecute any alcohol or drug abuse patient.[facility] HospitalIn the event this information is protected by the Federal Confidentiality of Alcohol and Drug Abuse Patient Records regulations: The Federal rules restrict any use of the information to criminally investigate or prosecute any alcohol or drug abuse patient.[facility] HospitalIn the event this information is protected by the Federal Confidentiality of Alcohol and Drug Abuse Patient Records regulations: The Federal rules restrict any use of the information to criminally investigate or prosecute any alcohol or drug abuse patient.[facility] HospitalIn the event this information is protected by the Federal Confidentiality of Alcohol and Drug Abuse Patient Records regulations: The Federal rules restrict any use of the information to criminally investigate or prosecute any alcohol or drug abuse patient.[facility] HospitalIn the event this information is protected by the Federal Confidentiality of Alcohol and Drug Abuse Patient Records regulations: The Federal rules restrict any use of the information to criminally investigate or prosecute any alcohol or drug abuse patient.[facility] HospitalIn the event this information is protected by the Federal Confidentiality of Alcohol and Drug Abuse Patient Records regulations: The Federal rules restrict any use of the information to criminally investigate or prosecute any alcohol or drug abuse patient.[facility] HospitalIn the event this information is protected by the Federal Confidentiality of Alcohol and Drug Abuse Patient Records regulations: The Federal rules restrict any use of the information to criminally investigate or prosecute any alcohol or drug abuse patient.[facility] the event this information is protected by the Federal Confidentiality of Alcohol and Drug Abuse Patient Records regulations: The Federal rules restrict any use of the information to criminally investigate or prosecute any alcohol or drug abuse patient.[facility] HospitalIn the event this information is protected by the Federal Confidentiality of Alcohol and Drug Abuse Patient Records regulations: The Federal rules restrict any use of the information to criminally investigate or prosecute any alcohol or drug abuse patient.[facility] HospitalIn the event this information is protected by the Federal Confidentiality of Alcohol and Drug Abuse Patient Records regulations: The Federal rules restrict any use of the information to criminally investigate or prosecute any alcohol or drug abuse patient.[facility]In the event this information is protected by the Federal Confidentiality of Alcohol and Drug Abuse Patient Records regulations: The Federal rules restrict any use of the information to criminally investigate or prosecute any alcohol or drug abuse patient.[facility] HospitalIn the event this information is protected by the Federal Confidentiality of Alcohol and Drug Abuse Patient Records regulations: The Federal rules restrict any use of the information to criminally investigate or prosecute any alcohol or drug abuse patient.[facility] HospitalIn the event this information is protected by the Federal Confidentiality of Alcohol and Drug Abuse Patient Records regulations: The Federal rules restrict any use of the information to criminally investigate or prosecute any alcohol or drug abuse patient.[facility] HospitalIn the event this information is protected by the Federal Confidentiality of Alcohol and Drug Abuse Patient Records regulations: The Federal rules restrict any use of the information to criminally investigate or prosecute any alcohol or drug abuse patient.[facility] HospitalIn the event this information is protected by the Federal Confidentiality of Alcohol and Drug Abuse Patient Records regulations: The Federal rules restrict any use of the information to criminally investigate or prosecute any alcohol or drug abuse patient.[facility] HospitalIn the event this information is protected by the Federal Confidentiality of Alcohol and Drug Abuse Patient Records regulations: The Federal rules restrict any use of the information to criminally investigate or prosecute any alcohol or drug abuse patient.[facility] HospitalIn the event this information is protected by the Federal Confidentiality of Alcohol and Drug Abuse Patient Records regulations: The Federal rules restrict any use of the information to criminally investigate or prosecute any alcohol or drug abuse patient.[facility] HospitalIn the event this information is protected by the Federal Confidentiality of Alcohol and Drug Abuse Patient Records regulations: The Federal rules restrict any use of the information to criminally investigate or prosecute any alcohol or drug abuse patient.[facility] HospitalIn the event this information is protected by the Federal Confidentiality of Alcohol and Drug Abuse Patient Records regulations: The Federal rules restrict any use of the information to criminally investigate or prosecute any alcohol or drug abuse patient.[facility] HospitalIn the event this information is protected by the Federal Confidentiality of Alcohol and Drug Abuse Patient Records regulations: The Federal rules restrict any use of the information to criminally investigate or prosecute any alcohol or drug abuse patient.[facility] HospitalIn the event this information is protected by the Federal Confidentiality of Alcohol and Drug Abuse Patient Records regulations: The Federal rules restrict any use of the information to criminally investigate or prosecute any alcohol or drug abuse patient.[facility] HospitalIn the event this information is protected by the Federal Confidentiality of Alcohol and Drug Abuse Patient Records regulations: The Federal rules restrict any use of the information to criminally investigate or prosecute any alcohol or drug abuse patient.[facility] HospitalIn the event this information is protected by the Federal Confidentiality of Alcohol and Drug Abuse Patient Records regulations: The Federal rules restrict any use of the information to criminally investigate or prosecute any alcohol or drug abuse patient.[facility] HospitalIn the event this information is protected by the Federal Confidentiality of Alcohol and Drug Abuse Patient Records regulations: The Federal rules restrict any use of the information to criminally investigate or prosecute any alcohol or drug abuse patient.[facility] HospitalIn the event this information is protected by the Federal Confidentiality of Alcohol and Drug Abuse Patient Records regulations: The Federal rules restrict any use of the information to criminally investigate or prosecute any alcohol or drug abuse patient.[facility] HospitalIn the event this information is protected by the Federal Confidentiality of Alcohol and Drug Abuse Patient Records regulations: The Federal rules restrict any use of the information to criminally investigate or prosecute any alcohol or drug abuse patient.[facility] HospitalIn the event this information is protected by the Federal Confidentiality of Alcohol and Drug Abuse Patient Records regulations: The Federal rules restrict any use of the information to criminally investigate or prosecute any alcohol or drug abuse patient.[facility] HospitalIn the event this information is protected by the Federal Confidentiality of Alcohol and Drug Abuse Patient Records regulations: The Federal rules restrict any use of the information to criminally investigate or prosecute any alcohol or drug abuse patient.[facility] HospitalIn the event this information is protected by the Federal Confidentiality of Alcohol and Drug Abuse Patient Records regulations: The Federal rules restrict any use of the information to criminally investigate or prosecute any alcohol or drug abuse patient.[facility] HospitalIn the event this information is protected by the Federal Confidentiality of Alcohol and Drug Abuse Patient Records regulations: The Federal rules restrict any use of the information to criminally investigate or prosecute any alcohol or drug abuse patient.[facility] HospitalIn the event this information is protected by the Federal Confidentiality of Alcohol and Drug Abuse Patient Records regulations: The Federal rules restrict any use of the information to criminally investigate or prosecute any alcohol or drug abuse patient.[facility] HospitalIn the event this information is protected by the Federal Confidentiality of Alcohol and Drug Abuse Patient Records regulations: The Federal rules restrict any use of the information to criminally investigate or prosecute any alcohol or drug abuse patient.[facility] HospitalIn the event this information is protected by the Federal Confidentiality of Alcohol and Drug Abuse Patient Records regulations: The Federal rules restrict any use of the information to criminally investigate or prosecute any alcohol or drug abuse patient.[facility] HospitalIn the event this information is protected by the Federal Confidentiality of Alcohol and Drug Abuse Patient Records regulations: The Federal rules restrict any use of the information to criminally investigate or prosecute any alcohol or drug abuse patient.[facility] HospitalIn the event this information is protected by the Federal Confidentiality of Alcohol and Drug Abuse Patient Records regulations: The Federal rules restrict any use of the information to criminally investigate or prosecute any alcohol or drug abuse patient.[facility] HospitalIn the event this information is protected by the Federal Confidentiality of Alcohol and Drug Abuse Patient Records regulations: The Federal rules restrict any use of the information to criminally investigate or prosecute any alcohol or drug abuse patient.[facility] HospitalIn the event this information is protected by the Federal Confidentiality of Alcohol and Drug Abuse Patient Records regulations: The Federal rules restrict any use of the information to criminally investigate or prosecute any alcohol or drug abuse patient.[facility] HospitalIn the event this information is protected by the Federal Confidentiality of Alcohol and Drug Abuse Patient Records regulations: The Federal rules restrict any use of the information to criminally investigate or prosecute any alcohol or drug abuse patient.[facility] HospitalIn the event this information is protected by the Federal Confidentiality of Alcohol and Drug Abuse Patient Records regulations: The Federal rules restrict any use of the information to criminally investigate or prosecute any alcohol or drug abuse patient.[facility] HospitalIn the event this information is protected by the Federal Confidentiality of Alcohol and Drug Abuse Patient Records regulations: The Federal rules restrict any use of the information to criminally investigate or prosecute any alcohol or drug abuse patient.[facility] HospitalIn the event this information is protected by the Federal Confidentiality of Alcohol and Drug Abuse Patient Records regulations: The Federal rules restrict any use of the information to criminally investigate or prosecute any alcohol or drug abuse patient.[facility] HospitalIn the event this information is protected by the Federal Confidentiality of Alcohol and Drug Abuse Patient Records regulations: The Federal rules restrict any use of the information to criminally investigate or prosecute any alcohol or drug abuse patient.[facility] HospitalIn the event this information is protected by the Federal Confidentiality of Alcohol and Drug Abuse Patient Records regulations: The Federal rules restrict any use of the information to criminally investigate or prosecute any alcohol or drug abuse patient.[facility] HospitalIn the event this information is protected by the Federal Confidentiality of Alcohol and Drug Abuse Patient Records regulations: The Federal rules restrict any use of the information to criminally investigate or prosecute any alcohol or drug abuse patient.[facility] HospitalIn the event this information is protected by the Federal Confidentiality of Alcohol and Drug Abuse Patient Records regulations: The Federal rules restrict any use of the information to criminally investigate or prosecute any alcohol or drug abuse patient.[facility] HospitalIn the event this information is protected by the Federal Confidentiality of Alcohol and Drug Abuse Patient Records regulations: The Federal rules restrict any use of the information to criminally investigate or prosecute any alcohol or drug abuse patient.[facility] HospitalIn the event this information is protected by the Federal Confidentiality of Alcohol and Drug Abuse Patient Records regulations: The Federal rules restrict any use of the information to criminally investigate or prosecute any alcohol or drug abuse patient.[facility] HospitalIn the event this information is protected by the Federal Confidentiality of Alcohol and Drug Abuse Patient Records regulations: The Federal rules restrict any use of the information to criminally investigate or prosecute any alcohol or drug abuse patient.[facility] HospitalIn the event this information is protected by the Federal Confidentiality of Alcohol and Drug Abuse Patient Records regulations: The Federal rules restrict any use of the information to criminally investigate or prosecute any alcohol or drug abuse patient.[facility] HospitalIn the event this information is protected by the Federal Confidentiality of Alcohol and Drug Abuse Patient Records regulations: The Federal rules restrict any use of the information to criminally investigate or prosecute any alcohol or drug abuse patient.[facility] HospitalIn the event this information is protected by the Federal Confidentiality of Alcohol and Drug Abuse Patient Records regulations: The Federal rules restrict any use of the information to criminally investigate or prosecute any alcohol or drug abuse patient.[facility] HospitalIn the event this information is protected by the Federal Confidentiality of Alcohol and Drug Abuse Patient Records regulations: The Federal rules restrict any use of the information to criminally investigate or prosecute any alcohol or drug abuse patient.[facility] HospitalIn the event this information is protected by the Federal Confidentiality of Alcohol and Drug Abuse Patient Records regulations: The Federal rules restrict any use of the information to criminally investigate or prosecute any alcohol or drug abuse patient.[facility] HospitalIn the event this information is protected by the Federal Confidentiality of Alcohol and Drug Abuse Patient Records regulations: The Federal rules restrict any use of the information to criminally investigate or prosecute any alcohol or drug abuse patient.[facility] HospitalIn the event this information is protected by the Federal Confidentiality of Alcohol and Drug Abuse Patient Records regulations: The Federal rules restrict any use of the information to criminally investigate or prosecute any alcohol or drug abuse patient.[facility] HospitalIn the event this information is protected by the Federal Confidentiality of Alcohol and Drug Abuse Patient Records regulations: The Federal rules restrict any use of the information to criminally investigate or prosecute any alcohol or drug abuse patient.[facility] HospitalIn the event this information is protected by the Federal Confidentiality of Alcohol and Drug Abuse Patient Records regulations: The Federal rules restrict any use of the information to criminally investigate or prosecute any alcohol or drug abuse patient.[facility] the event this information is protected by the Federal Confidentiality of Alcohol and Drug Abuse Patient Records regulations: The Federal rules restrict any use of the information to criminally investigate or prosecute any alcohol or drug abuse patient.[facility] HospitalIn the event this information is protected by the Federal Confidentiality of Alcohol and Drug Abuse Patient Records regulations: The Federal rules restrict any use of the information to criminally investigate or prosecute any alcohol or drug abuse patient.[facility] HospitalIn the event this information is protected by the Federal Confidentiality of Alcohol and Drug Abuse Patient Records regulations: The Federal rules restrict any use of the information to criminally investigate or prosecute any alcohol or drug abuse patient.[facility]In the event this information is protected by the Federal Confidentiality of Alcohol and Drug Abuse Patient Records regulations: The Federal rules restrict any use of the information to criminally investigate or prosecute any alcohol or drug abuse patient.[facility] HospitalIn the event this information is protected by the Federal Confidentiality of Alcohol and Drug Abuse Patient Records regulations: The Federal rules restrict any use of the information to criminally investigate or prosecute any alcohol or drug abuse patient.[facility] HospitalIn the event this information is protected by the Federal Confidentiality of Alcohol and Drug Abuse Patient Records regulations: The Federal rules restrict any use of the information to criminally investigate or prosecute any alcohol or drug abuse patient.[facility] HospitalIn the event this information is protected by the Federal Confidentiality of Alcohol and Drug Abuse Patient Records regulations: The Federal rules restrict any use of the information to criminally investigate or prosecute any alcohol or drug abuse patient.[facility] HospitalIn the event this information is protected by the Federal Confidentiality of Alcohol and Drug Abuse Patient Records regulations: The Federal rules restrict any use of the information to criminally investigate or prosecute any alcohol or drug abuse patient.[facility] HospitalIn the event this information is protected by the Federal Confidentiality of Alcohol and Drug Abuse Patient Records regulations: The Federal rules restrict any use of the information to criminally investigate or prosecute any alcohol or drug abuse patient.[facility] HospitalIn the event this information is protected by the Federal Confidentiality of Alcohol and Drug Abuse Patient Records regulations: The Federal rules restrict any use of the information to criminally investigate or prosecute any alcohol or drug abuse patient.[facility] HospitalIn the event this information is protected by the Federal Confidentiality of Alcohol and Drug Abuse Patient Records regulations: The Federal rules restrict any use of the information to criminally investigate or prosecute any alcohol or drug abuse patient.[facility] HospitalIn the event this information is protected by the Federal Confidentiality of Alcohol and Drug Abuse Patient Records regulations: The Federal rules restrict any use of the information to criminally investigate or prosecute any alcohol or drug abuse patient.[facility] HospitalIn the event this information is protected by the Federal Confidentiality of Alcohol and Drug Abuse Patient Records regulations: The Federal rules restrict any use of the information to criminally investigate or prosecute any alcohol or drug abuse patient.[facility] HospitalIn the event this information is protected by the Federal Confidentiality of Alcohol and Drug Abuse Patient Records regulations: The Federal rules restrict any use of the information to criminally investigate or prosecute any alcohol or drug abuse patient.[facility] HospitalIn the event this information is protected by the Federal Confidentiality of Alcohol and Drug Abuse Patient Records regulations: The Federal rules restrict any use of the information to criminally investigate or prosecute any alcohol or drug abuse patient.[facility] HospitalIn the event this information is protected by the Federal Confidentiality of Alcohol and Drug Abuse Patient Records regulations: The Federal rules restrict any use of the information to criminally investigate or prosecute any alcohol or drug abuse patient.[facility] HospitalIn the event this information is protected by the Federal Confidentiality of Alcohol and Drug Abuse Patient Records regulations: The Federal rules restrict any use of the information to criminally investigate or prosecute any alcohol or drug abuse patient.[facility] HospitalIn the event this information is protected by the Federal Confidentiality of Alcohol and Drug Abuse Patient Records regulations: The Federal rules restrict any use of the information to criminally investigate or prosecute any alcohol or drug abuse patient.[facility] HospitalIn the event this information is protected by the Federal Confidentiality of Alcohol and Drug Abuse Patient Records regulations: The Federal rules restrict any use of the information to criminally investigate or prosecute any alcohol or drug abuse patient.[facility] HospitalIn the event this information is protected by the Federal Confidentiality of Alcohol and Drug Abuse Patient Records regulations: The Federal rules restrict any use of the information to criminally investigate or prosecute any alcohol or drug abuse patient.[facility] HospitalIn the event this information is protected by the Federal Confidentiality of Alcohol and Drug Abuse Patient Records regulations: The Federal rules restrict any use of the information to criminally investigate or prosecute any alcohol or drug abuse patient.[facility] HospitalIn the event this information is protected by the Federal Confidentiality of Alcohol and Drug Abuse Patient Records regulations: The Federal rules restrict any use of the information to criminally investigate or prosecute any alcohol or drug abuse patient.[facility] HospitalIn the event this information is protected by the Federal Confidentiality of Alcohol and Drug Abuse Patient Records regulations: The Federal rules restrict any use of the information to criminally investigate or prosecute any alcohol or drug abuse patient.[facility] HospitalIn the event this information is protected by the Federal Confidentiality of Alcohol and Drug Abuse Patient Records regulations: The Federal rules restrict any use of the information to criminally investigate or prosecute any alcohol or drug abuse patient.[facility] HospitalIn the event this information is protected by the Federal Confidentiality of Alcohol and Drug Abuse Patient Records regulations: The Federal rules restrict any use of the information to criminally investigate or prosecute any alcohol or drug abuse patient.[facility] HospitalIn the event this information is protected by the Federal Confidentiality of Alcohol and Drug Abuse Patient Records regulations: The Federal rules restrict any use of the information to criminally investigate or prosecute any alcohol or drug abuse patient.[facility] HospitalIn the event this information is protected by the Federal Confidentiality of Alcohol and Drug Abuse Patient Records regulations: The Federal rules restrict any use of the information to criminally investigate or prosecute any alcohol or drug abuse patient.[facility] HospitalIn the event this information is protected by the Federal Confidentiality of Alcohol and Drug Abuse Patient Records regulations: The Federal rules restrict any use of the information to criminally investigate or prosecute any alcohol or drug abuse patient.[facility] HospitalIn the event this information is protected by the Federal Confidentiality of Alcohol and Drug Abuse Patient Records regulations: The Federal rules restrict any use of the information to criminally investigate or prosecute any alcohol or drug abuse patient.[facility] HospitalIn the event this information is protected by the Federal Confidentiality of Alcohol and Drug Abuse Patient Records regulations: The Federal rules restrict any use of the information to criminally investigate or prosecute any alcohol or drug abuse patient.[facility] HospitalIn the event this information is protected by the Federal Confidentiality of Alcohol and Drug Abuse Patient Records regulations: The Federal rules restrict any use of the information to criminally investigate or prosecute any alcohol or drug abuse patient.[facility] HospitalIn the event this information is protected by the Federal Confidentiality of Alcohol and Drug Abuse Patient Records regulations: The Federal rules restrict any use of the information to criminally investigate or prosecute any alcohol or drug abuse patient.[facility] HospitalIn the event this information is protected by the Federal Confidentiality of Alcohol and Drug Abuse Patient Records regulations: The Federal rules restrict any use of the information to criminally investigate or prosecute any alcohol or drug abuse patient.[facility] HospitalIn the event this information is protected by the Federal Confidentiality of Alcohol and Drug Abuse Patient Records regulations: The Federal rules restrict any use of the information to criminally investigate or prosecute any alcohol or drug abuse patient.[facility] HospitalIn the event this information is protected by the Federal Confidentiality of Alcohol and Drug Abuse Patient Records regulations: The Federal rules restrict any use of the information to criminally investigate or prosecute any alcohol or drug abuse patient.[facility] HospitalIn the event this information is protected by the Federal Confidentiality of Alcohol and Drug Abuse Patient Records regulations: The Federal rules restrict any use of the information to criminally investigate or prosecute any alcohol or drug abuse patient.[facility] HospitalIn the event this information is protected by the Federal Confidentiality of Alcohol and Drug Abuse Patient Records regulations: The Federal rules restrict any use of the information to criminally investigate or prosecute any alcohol or drug abuse patient.[facility] HospitalIn the event this information is protected by the Federal Confidentiality of Alcohol and Drug Abuse Patient Records regulations: The Federal rules restrict any use of the information to criminally investigate or prosecute any alcohol or drug abuse patient.[facility] HospitalIn the event this information is protected by the Federal Confidentiality of Alcohol and Drug Abuse Patient Records regulations: The Federal rules restrict any use of the information to criminally investigate or prosecute any alcohol or drug abuse patient.[facility] HospitalIn the event this information is protected by the Federal Confidentiality of Alcohol and Drug Abuse Patient Records regulations: The Federal rules restrict any use of the information to criminally investigate or prosecute any alcohol or drug abuse patient.[facility] HospitalIn the event this information is protected by the Federal Confidentiality of Alcohol and Drug Abuse Patient Records regulations: The Federal rules restrict any use of the information to criminally investigate or prosecute any alcohol or drug abuse patient.[facility] HospitalIn the event this information is protected by the Federal Confidentiality of Alcohol and Drug Abuse Patient Records regulations: The Federal rules restrict any use of the information to criminally investigate or prosecute any alcohol or drug abuse patient.[facility] HospitalIn the event this information is protected by the Federal Confidentiality of Alcohol and Drug Abuse Patient Records regulations: The Federal rules restrict any use of the information to criminally investigate or prosecute any alcohol or drug abuse patient.[facility] HospitalIn the event this information is protected by the Federal Confidentiality of Alcohol and Drug Abuse Patient Records regulations: The Federal rules restrict any use of the information to criminally investigate or prosecute any alcohol or drug abuse patient.[facility] HospitalIn the event this information is protected by the Federal Confidentiality of Alcohol and Drug Abuse Patient Records regulations: The Federal rules restrict any use of the information to criminally investigate or prosecute any alcohol or drug abuse patient.[facility] HospitalIn the event this information is protected by the Federal Confidentiality of Alcohol and Drug Abuse Patient Records regulations: The Federal rules restrict any use of the information to criminally investigate or prosecute any alcohol or drug abuse patient.[facility] HospitalIn the event this information is protected by the Federal Confidentiality of Alcohol and Drug Abuse Patient Records regulations: The Federal rules restrict any use of the information to criminally investigate or prosecute any alcohol or drug abuse patient.[facility] HospitalIn the event this information is protected by the Federal Confidentiality of Alcohol and Drug Abuse Patient Records regulations: The Federal rules restrict any use of the information to criminally investigate or prosecute any alcohol or drug abuse patient.[facility] HospitalIn the event this information is protected by the Federal Confidentiality of Alcohol and Drug Abuse Patient Records regulations: The Federal rules restrict any use of the information to criminally investigate or prosecute any alcohol or drug abuse patient.[facility] HospitalIn the event this information is protected by the Federal Confidentiality of Alcohol and Drug Abuse Patient Records regulations: The Federal rules restrict any use of the information to criminally investigate or prosecute any alcohol or drug abuse patient.[facility] the event this information is protected by the Federal Confidentiality of Alcohol and Drug Abuse Patient Records regulations: The Federal rules restrict any use of the information to criminally investigate or prosecute any alcohol or drug abuse patient.[facility] HospitalIn the event this information is protected by the Federal Confidentiality of Alcohol and Drug Abuse Patient Records regulations: The Federal rules restrict any use of the information to criminally investigate or prosecute any alcohol or drug abuse patient.[facility] HospitalIn the event this information is protected by the Federal Confidentiality of Alcohol and Drug Abuse Patient Records regulations: The Federal rules restrict any use of the information to criminally investigate or prosecute any alcohol or drug abuse patient.[facility]In the event this information is protected by the Federal Confidentiality of Alcohol and Drug Abuse Patient Records regulations: The Federal rules restrict any use of the information to criminally investigate or prosecute any alcohol or drug abuse patient.[facility] HospitalIn the event this information is protected by the Federal Confidentiality of Alcohol and Drug Abuse Patient Records regulations: The Federal rules restrict any use of the information to criminally investigate or prosecute any alcohol or drug abuse patient.[facility] HospitalIn the event this information is protected by the Federal Confidentiality of Alcohol and Drug Abuse Patient Records regulations: The Federal rules restrict any use of the information to criminally investigate or prosecute any alcohol or drug abuse patient.[facility] HospitalIn the event this information is protected by the Federal Confidentiality of Alcohol and Drug Abuse Patient Records regulations: The Federal rules restrict any use of the information to criminally investigate or prosecute any alcohol or drug abuse patient.[facility] HospitalIn the event this information is protected by the Federal Confidentiality of Alcohol and Drug Abuse Patient Records regulations: The Federal rules restrict any use of the information to criminally investigate or prosecute any alcohol or drug abuse patient.[facility] HospitalIn the event this information is protected by the Federal Confidentiality of Alcohol and Drug Abuse Patient Records regulations: The Federal rules restrict any use of the information to criminally investigate or prosecute any alcohol or drug abuse patient.[facility] HospitalIn the event this information is protected by the Federal Confidentiality of Alcohol and Drug Abuse Patient Records regulations: The Federal rules restrict any use of the information to criminally investigate or prosecute any alcohol or drug abuse patient.[facility] HospitalIn the event this information is protected by the Federal Confidentiality of Alcohol and Drug Abuse Patient Records regulations: The Federal rules restrict any use of the information to criminally investigate or prosecute any alcohol or drug abuse patient.[facility] HospitalIn the event this information is protected by the Federal Confidentiality of Alcohol and Drug Abuse Patient Records regulations: The Federal rules restrict any use of the information to criminally investigate or prosecute any alcohol or drug abuse patient.[facility] HospitalIn the event this information is protected by the Federal Confidentiality of Alcohol and Drug Abuse Patient Records regulations: The Federal rules restrict any use of the information to criminally investigate or prosecute any alcohol or drug abuse patient.[facility] Reason for Visit (unrecogniz ed section [...] 15 MIN. Сергей Espinoza MD [address] [place] [address] [facility] [address] [place] [address] Referral ID Status Reason Start Date Expiration Date Visits Requested Visits Authorized [id number] Authorized PCP Requested Referral Auto-Generate d Referral 2 03/01/2022 8 8 Reason Onset Date Comments [...] Referred By Omar mixon Referred To Contact CT IMAGING Diagnoses Lung nodules Procedures CT CHEST WO IVCON DIAGNOSTIC COMPUTED TOMOGRAPHY THORAX W/O CNTRST Sona Grier MD [address] [place] [address] Ct Imaging Referral ID Status Reason Start Date Expiration Date V isits Requested Visits Authorized [id number] Closed Auto-Generate d Referral 07/09/2022 05/11/2023 1 [...] 12/18/2022 Specialty Diagnoses / Procedures Referred By Omar t Referred To Contact CT IMAGING Diagnoses Interstitial pulmonary disease (HCC) Procedures CT CHEST WO IVCON DIAGNOSTIC COMPUTED TOMOGRAPHY THORAX W/O CNTBRAYANT Sona Grier MD [id number] Imaging [place] [address] Referral ID Status Reason Start Date Expiration Date V isits Requested Visits Authorized [id number] Closed Auto-Generate d Referral 01/28/2022 11/27/2022 1 [...] Medical Records Externa l referral to [facility] Reason Onset Date Comments Refill Request 07/16/2023 [...] W/O CNTRST Sona Grier MD [id number] Imaging [place] [address] Referral ID Status Reason Start Date Expiration Date Visits Requested Visits Authorized [id number] Authorized Auto-Generat ed Referral 08/25/2023 09/24/2023 2 2 Reason Comments Spirometry Specialty Diagnoses / Procedures Referred By Contac t Referred To Contact [facility] Diagnoses Interstitial pulmonary disease (HCC) Procedures LUNG DIFFUSION CAPACITY (DLCO) DIFFUSING CAPACITY Sona Grier MD [address] [place] [address] [address] Referral ID Status Reason Start Date Expiration Date V isits Requested Visits Authorized [id number] Closed Auto-Generate d Referral 03/24/2023 04/22/2024 1 1 Specialty Diagnoses / Procedures Referred By Contac t Referred To Contact [facility] Diagnoses Interstitial pulmonary disease (HCC) Procedures LUNG VOLUMES Sona Grier MD [address] [place] [address] [address] Referral ID Status Reason Start Date Expiration Date V isits Requested Visits Authorized [id number] Closed Auto-Generate d Referral 07/22/2023 03/01/2024 2 1 Specialty Diagnoses / Procedures Referred By Contac t Referred To Contact [facility] Diagnoses Interstitial pulmonary disease (HCC) Procedures SPIROMETRY WITH DILATOR IF OBSTRUCTED BRNCDILAT RSPSE SPMTRY PRE&POST-BRNCDILAT ADMN Sona Grier MD [address] [place] [address] [facility] [address] [place] [address] Referral ID Status Reason Start Date Expiration Date V isits Requested Visits Authorized [id number] Closed Auto-Generate d Referral 03/24/2023 04/22/2024 1 1 Reason Comments Follow Up Interstitial Pulmona ry Disease Reason Comments [facility] Care Teams (unrecognized sec tion and content) Outpatient Facility Physical Therapist Relationship Specialty Start Date End Date Сергей Espinoza MD [address] [place] [address] PCP - General Internal Medicine 01/21/17 Outpatient Facility Physical Therapist Relationship Specialty Start Date End Date Сергей Espinoza MD [address] [place] [address] PCP - General Internal Medicine 01/21/17 Outpatient Facility Physical Therapist Relationship Specialty Start Date End Date Сергей Espinoza MD [address] [place] [address] PCP - General Internal Medicine 01/21/17 Outpatient Facility Physical Therapist Relationship Specialty Start Date End Date Сергей Espinoza MD [address] [place] [address] PCP - General Internal Medicine 01/21/17 Outpatient Facility Physical Therapist Relationship Specialty Start Date End Date Сергей Espinoza MD [facility] [place] [address] PCP - General Internal Medicine 01/21/17 Outpatient Facility Physical Therapist Relationship Specialty Start Date End Date Сергей Espinoza MD [facility] [place] [address] PCP - General Internal Medicine 01/21/17 Outpatient Facility Physical Therapist Relationship Specialty Start Date End Date [place], Сергей Salguero MD [address] [place] [address] PCP - General Internal Medicine 01/21/17 Outpatient Facility Physical Therapist Relationship Specialty Start Date End Date [place], Сергей Salguero MD [address] [place] [address] PCP - General Internal Medicine 01/21/17 Outpatient Facility Physical Therapist Relationship Specialty Start Date End Date [place], Сергей Salguero MD [address] [place] [address] PCP - General Internal Medicine 01/21/17 Outpatient Facility Physical Therapist Relationship Specialty Start Date End Date [place], Сергей Salguero MD [address] [place] [address] PCP - General Internal Medicine 01/21/17 Outpatient Facility Physical Therapist Relationship Specialty Start Date End Date [place], Сергей Salguero MD [address] [place] [address] PCP - General Internal Medicine 01/21/17 Outpatient Facility Physical Therapist Relationship Specialty Start Date End Date [place], Сергей Salguero MD [address] [place] [address] PCP - General Internal Medicine 01/21/17 Outpatient Facility Physical Therapist Relationship Specialty Start Date End Date [place], Сергей Salguero MD [address] [place] [address] PCP - General Internal Medicine 01/21/17 Outpatient Facility Physical Therapist Relationship Specialty Start Date End Date [place], Сергей Salguero MD [address] [place] [address] PCP - General Internal Medicine 01/21/17 Outpatient Facility Physical Therapist Relationship Specialty Start Date End Date [place], Сергей Salguero MD [address] [place] [address] PCP - General Internal Medicine 01/21/17 Outpatient Facility Physical Therapist Relationship Specialty Start Date End Date [place], Сергей Salguero MD [address] [place] [address] PCP - General Internal Medicine 01/21/17 Outpatient Facility Physical Therapist Relationship Specialty Start Date End Date [place], Сергей Salguero MD [address] [place] [address] PCP - General Internal Medicine 01/21/17 Outpatient Facility Physical Therapist Relationship Specialty Start Date End Date [place], Сергей Salguero MD [address] [place] [address] PCP - General Internal Medicine 01/21/17 Outpatient Facility Physical Therapist Relationship Specialty Start Date End Date [place], Сергей Salguero MD [address] [place] [address] PCP - General Internal Medicine 01/21/17 Outpatient Facility Physical Therapist Relationship Specialty Start Date End Date [place], Сергей Salguero MD [address] [place] [address] PCP - General Internal Medicine 01/21/17 Outpatient Facility Physical Therapist Relationship Specialty Start Date End Date [place], Сергей Salguero MD [address] [facility] [place] [address] PCP - General Internal Medicine 01/21/17 Outpatient Facility Physical Therapist Relationship Specialty Start Date End Date [place], Сергей Salguero MD [address] [facility] [place] [address] PCP - General Internal Medicine 01/21/17 Outpatient Facility Physical Therapist Relationship Specialty Start Date End Date [place], Сергей Salguero MD [address] [place] [address] PCP - General Internal Medicine 01/21/17 Outpatient Facility Physical Therapist Relationship Specialty Start Date End Date [place] MD [address] [place] [address] PCP - General Internal Medicine 01/21/17 Outpatient Facility Physical Therapist Relationship Specialty Start Date End Date [place] MD [address] [place] [address] PCP - General Internal Medicine 01/21/17 Outpatient Facility Physical Therapist Relationship Specialty Start Date End Date OlgaСергей MD [address] [place] [address] PCP - General Internal Medicine 01/21/17 Outpatient Facility Physical Therapist Relationship Specialty Start Date End Date OlgaСергей MD [address] [place] [address] PCP - General Internal Medicine 01/21/17 Outpatient Facility Physical Therapist Relationship Specialty Start Date End Date OlgaСергей MD [address] [place] [address] PCP - General Internal Medicine 01/21/17 Outpatient Facility Physical Therapist Relationship Specialty Start Date End Date [place] [address] [place] [address] PCP - General Internal Medicine 01/21/17 Outpatient Facility Physical Therapist Relationship Specialty Start Date End Date [place] [address] [place] [address] PCP - General Internal Medicine 01/21/17 Outpatient Facility Physical Therapist Relationship Specialty Start Date End Date OlgaСергей MD [address] [place] [address] PCP - General Internal Medicine 01/21/17 Outpatient Facility Physical Therapist Relationship Specialty Start Date End Date [place], Сергей Salguero MD [address] [place] [address] PCP - General Internal Medicine 01/21/17 Outpatient Facility Physical Therapist Relationship Specialty Start Date End Date [place], Сергей Salguero MD [address] [place] [address] PCP - General Internal Medicine 01/21/17 Outpatient Facility Physical Therapist Relationship Specialty Start Date End Date [place], Сергей Salguero MD [address] [place] [address] PCP - General Internal Medicine 01/21/17 Outpatient Facility Physical Therapist Relationship Specialty Start Date End Date [place], Сергей Salguero MD [address] [place] [address] PCP - General Internal Medicine 01/21/17 Outpatient Facility Physical Therapist Relationship Specialty Start Date End Date [place], Сергей Salguero MD [address] [place] [address] PCP - General Internal Medicine 01/21/17 Outpatient Facility Physical Therapist Relationship Specialty Start Date End Date [place], Сергей Salguero MD [address] [place] [address] PCP - General Internal Medicine 01/21/17 Outpatient Facility Physical Therapist Relationship Specialty Start Date End Date [place], Сергей Salguero MD [address] [place] [address] PCP - General Internal Medicine 01/21/17 Outpatient Facility Physical Therapist Relationship Specialty Start Date End Date [place], Сергей Salguero MD [address] [place] [address] PCP - General Internal Medicine 01/21/17 Outpatient Facility Physical Therapist Relationship Specialty Start Date End Date [place], Сергей Salguero MD [address] [place] [address] PCP - General Internal Medicine 01/21/17 Outpatient Facility Physical Therapist Relationship Specialty Start Date End Date [place], Сергей Salguero MD [address] [place] [address] PCP - General Internal Medicine 01/21/17 Outpatient Facility Physical Therapist Relationship Specialty Start Date End Date [place], Сергей Salguero MD [facility] [place] [address] PCP - General Internal Medicine 01/21/17 Outpatient Facility Physical Therapist Relationship Specialty Start Date End Date [place], Сергей Salguero MD [address] [place] [address] PCP - General Internal Medicine 01/21/17 Outpatient Facility Physical Therapist Relationship Specialty Start Date End Date [place], Сергей Salguero MD [address] [place] [address] PCP - General Internal Medicine 01/21/17 Outpatient Facility Physical Therapist Relationship Specialty Start Date End Date [place], Сергей Salguero MD [address] [place] [address] PCP - General Internal Medicine 01/21/17 Outpatient Facility Physical Therapist Relationship Specialty Start Date End Date [place], Сергей Salguero MD [address] [place] [address] PCP - General Internal Medicine 01/21/17 Outpatient Facility Physical Therapist Relationship Specialty Start Date End Date OlgaСергей MD [address] [place] [address] PCP - General Internal Medicine 01/21/17 Outpatient Facility Physical Therapist Relationship Specialty Start Date End Date [place], Сергей Salguero MD [address] [place] [address] PCP - General Internal Medicine 01/21/17 Outpatient Facility Physical Therapist Relationship Specialty Start Date End Date [place], Сергей Salguero MD [address] [place] [address] PCP - General Internal Medicine 01/21/17 Outpatient Facility Physical Therapist Relationship Specialty Start Date End Date [place], Сергей Sagluero MD [address] [place] [address] PCP - General Internal Medicine 01/21/17 Outpatient Facility Physical Therapist Relationship Specialty Start Date End Date [place], Сергей Salguero MD [address] [place] [address] PCP - General Internal Medicine 01/21/17 Outpatient Facility Physical Therapist Relationship Specialty Start Date End Date [place], Сергей Salguero MD [address] [place] [address] PCP - General Internal Medicine 01/21/17 Outpatient Facility Physical Therapist Relationship Specialty Start Date End Date [place], Сергей Salguero MD [address] [place] [address] PCP - General Internal Medicine 01/21/17 Outpatient Facility Physical Therapist Relationship Specialty Start Date End Date [place], Сергей Salguero MD [address] [place] [address] PCP - General Internal Medicine 01/21/17 Outpatient Facility Physical Therapist Relationship Specialty Start Date End Date [place], Сергей Salguero MD [address] [place] [address] PCP - General Internal Medicine 01/21/17 Outpatient Facility Physical Therapist Relationship Specialty Start Date End Date [place], Сергей Salguero MD [facility] [place] [address] PCP - General Internal Medicine 01/21/17 Outpatient Facility Physical Therapist Relationship Specialty Start Date End Date [place], Сергей Salguero MD [address] [place] [address] PCP - General Internal Medicine 01/21/17 Outpatient Facility Physical Therapist Relationship Specialty Start Date End Date [place], Сергей Salguero MD [address] [place] [address] PCP - General Internal Medicine 01/21/17 Outpatient Facility Physical Therapist Relationship Specialty Start Date End Date [place], Сергей Salguero MD [facility] [place] [address] PCP - General Internal Medicine 01/21/17 Outpatient Facility Physical Therapist Relationship Specialty Start Date End Date Olga, Сергей Salguero MD [address] [place] [address] PCP - General Internal Medicine 01/21/17 Outpatient Facility Physical Therapist Relationship Specialty Start Date End Date [place], Сергей Salguero MD [address] [place] [address] PCP - General Internal Medicine 01/21/17 Outpatient Facility Physical Therapist Relationship Specialty Start Date End Date OlgaСергей louis MD [address] [place] [address] PCP - General Internal Medicine 01/21/17 Brayden Friend MD [address] [address] [place] Referring Team Anesthesiology 07/16/23 Outpatient Facility Physical Therapist Relationship Specialty Start Date End Date OlgaСергей MD [address] [place] [address] PCP - General Internal Medicine 01/21/17 Brayden Friend MD [address] [place] [address] [place] Referring Team Anesthesiology 07/16/23 Outpatient Facility Physical Therapist Relationship Specialty Start Date End Date [place] FallsСергей MD [address] [place] [address] PCP - General Internal Medicine 01/21/17 Brayden Friend MD [address] [address] [place] Referring Team Anesthesiology 07/16/23 Outpatient Facility Physical Therapist Relationship Specialty Start Date End Date [place] FallsСер[place]ей louis MD [address] [place] [address] PCP - General Internal Medicine 01/21/17 Brayden Friend MD [address] [address] [place] Referring Team Anesthesiology 07/16/23 Outpatient Facility Physical Therapist Relationship Specialty Start Date End Date [place], Сергей Salguero MD [address] [place] [address] PCP - General Internal Medicine 01/21/17 Brayden Friend MD [address] [address] [place] Referring Team Anesthesiology 07/16/23 Outpatient Facility Physical Therapist Relationship Specialty Start Date End Date [place], Сергей Salguero MD [address] [place] [address] PCP - General Internal Medicine 01/21/17 Brayden Friend MD [address] [address] [place] Referring Team Anesthesiology 07/16/23 Outpatient Facility Physical Therapist Relationship Specialty Start Date End Date Olga, Сергей Salguero MD [address] [place] [address] PCP - General Internal Medicine 01/21/17 Brayden Friend MD [address] [address] [place] Referring Team Anesthesiology 07/16/23 Outpatient Facility Physical Therapist Relationship Specialty Start Date End Date Olga, Сергей Salguero MD [address] [place] [address] PCP - General Internal Medicine 01/21/17 Brayden Friend MD [address] [address] [place] Referring Team Anesthesiology 07/16/23 Outpatient Facility Physical Therapist Relationship Specialty Start Date End Date [place], Сергей Salguero MD [address] [place] [address] PCP - General Internal Medicine 01/21/17 Brayden Friend MD [address] [place] [address] [place] Referring Team Anesthesiology 07/16/23 Outpatient Facility Physical Therapist Relationship Specialty Start Date End Date Сергей Espinoza MD [address] [place] [address] PCP - General Internal Medicine 01/21/17 Outpatient Facility Physical Therapist Relationship Specialty Start Date End Date Сергей Espinoza MD [address] [place] [address] PCP - General Internal Medicine 01/21/17 Outpatient Facility Physical Therapist Relationship Specialty Start Date End Date Сергей Espinoza MD [address] [place] [address] PCP - General Internal Medicine 01/21/17 Brayden Friend MD [address] [place] [address] [place] Referring Team Anesthesiology 07/16/23 Team Status: Active Member Role Status Dates Dr. Weston Bowers MD Family Provider Active Dr. Сергей Espinoza MD Primary Care Provider Active Team Status: Inactive Member Role Status Dates Dr. Сергей Espinoza MD Primary Care Provider Active Start: March 04, 2024 End: March 04, 2024 Stacie Chen CREW CHIEF, CREW CHIEF-C Attending Provider Active Start: March 04, 2024 [...] End: April 21, 2024 Stacie Chen NP CREW CHIEF-C Attending Provider Active Start: April 21, 2024 [...] 2024 End: May 11, 2024 Stacie Chen CREW CHIEF CREW CHIEF-C Attending Provider Active Start: May 11, 2024 End: May 11, 2024 Team Status: Inactive Member Role Status Dates Dr. Сергей Espinoza MD Primary Care Provider Active Start: May 17, 2024 End: May 17, 2024 Stacie DELGADO CREW CHIEF-C Attending Provider Active Start: May 17, 2024 [...] 2024 End: May 17, 2024 Stacie DELGADO NP-New Attending Provider Active Start: May 17, 2024 [...] End: July 26, 2024 Stacie Chen NP CREW CHIEF-C Attending Provider Active Start: July 26, 2024 [...] End: July 26, 2024 Stacie Chen NP CREW CHIEF-C Attending Provider Active Start: July 26, 2024 [...] 2024 End: August 08, 2024 Stacie Chen NP CREW CHIEF-C Attending Provider Active Start: August 08, 2024 End: August 08, 2024 Team Status: Active Member Role/Relationship Status Dates Dr. Сергей Espinoza MD Primary Care Provider Active Start: September 13, 2024 GEORGES QuirozC Attending Provider Active Start: September 13, 2024 [...] End: July 26, 2024 Stacie Chen NP CREW CHIEF-C Attending Provider Active Start: July 26, 2024 [...] 2024 End: August 08, 2024 Stacie Chen NP CREW CHIEF-C Attending Provider Active Start: August 08, 2024 End: August 08, 2024 Team Status: Active Member Role/Relationship Status Dates Dr. Сергей Espinoza MD Primary Care Provider Active Start: September 13, 2024 Stacie DELGADO CREW CHIEF-C Attending Provider Active Start: September 13, 2024 Stacie DELGADO CREW CHIEF-C Referring Provider Active Start: September 13, 2024 Team Status: Inactive Member Role/Relationship Status Dates Dr. Сергей Espinoza MD Primary Care Provider Active Start: September 16, 2024 End: September 16, 2024 Stacie Chen NP CREW CHIEF-C Attending Provider Active Start: September 16, 2024 End: September 16, 2024 Team Status: Active Member Role/Relationship Status Dates Dr. Сергей Espinoza MD Primary Care Provider Active Start: October 03, 2024 Stacie DELGADO CREW CHIEF-C Attending Provider Active Start: October 03, 2024 Team Status: Active Member Role/Relationship Status Dates Dr. Сергей Espinoza MD Primary Care Provider Active Start: October 06, 2024 Anais DELGADO MD Attending Provider Active Start: October 06, 2024 Anais DELGADO MD Referring Provider Active Start: October 06, 2024 Team Status: Inactive Member Role/Relationship Status Dates Dr. Сергей Espinoza MD Primary Care Provider Active Start: September 13, 2024 End: September 13, 2024 Stacie Chen NP CREW CHIEF-C Attending Provider Active Start: September 13, 2024 End: September 13, 2024 Team Status: Inactive Member Role/Relationship Status Dates Dr. Сергей Espinoza MD Primary Care Provider Active Start: September 16, 2024 End: September 16, 2024 Stacie Chen NP CREW CHIEF-C Attending Provider Active Start: September 16, 2024 End: September 16, 2024 Team Status: Active Member Role/Relationship Status Dates Dr. Сергей Espinoza MD Primary Care Provider Active Start: October 03, 2024 Stacie DELGADO NP-C Attending Provider Active Start: October 03, 2024 Team Status: Active Member Role/Relationship Status Dates Dr. Сергей Espinoza MD Primary Care Provider Active Start: October 06, 2024 Anais DELGADO MD Attending Provider Active Start: October 06, 2024 Anais DELGADO MD Referring Provider Active Start: October 06, 2024 Goals (unrecognized section and content) Goals [...] BE BASED ON THE PRIMARY CLINICAL RECORDS. [facility] [employer] [facility]. provides no warranty or guarantee of the accuracy or completeness of information in this document.
[2024-10-18 08:11] LABS: AST(SGOT) 16 U/L (<=31); Alanine Aminotransfer ALT/SGPT 6 U/L (<=34); Albumin, Serum 3.2 g/dL (3.4-4.8); Alkaline Phosphatase 78 U/L (35-104); Bilirubin, Direct < 0.08 mg/dL (0.00-0.30); Globulin 3.2 g/dL (2.2-4.2)
== END ==
LOC: OLS.WHLEAS 04:00
PROVIDERS: PCP Internal Medicine; Referring Provider Internal Medicine; Visit Provider Internal Medicine
DX: E03.9 Hypothyroidism, unspecified (principal); M62.561 Muscle wasting and atrophy, not elsewhere classified, right lower leg; M62.562 Muscle wasting and atrophy, not elsewhere classified, left lower leg
CPT/HCPCS: 36415; 80076; 84443

== ENCOUNTER 2024-11-27 14:51 | Inpatient (IN) | payer MEDICARE, MEDICAID, SELFPAY ==
[2024-11-27 14:52] VITALS: BP 135/67; PULSE 72; RESP 18; TEMP 36.6; O2SAT 100; BMI 25.2
--- NOTE | 2024-11-27 15:13 | EDS_ITS ---
HPI HPI - GI History of Present Illness Chief Complaint: GI Bleed Narrative Narrative: 84-year-old female past medical history of external and internal hemorrhoids, not on blood thinners, hypertension, pulmonary fibrosis on 3 L of oxygen at all times presents with rectal bleeding that began today. She is a [place]. She states that she has been constipated recently and passed hard stool. This morning she had bright red blood per rectum. She states she had to wipe multiple times but the bleeding lessened. She showed the RN on the toilet paper who wanted to send her immediately to the emergency department. However, patient states that she wanted to wait. She had another bowel movement with bright red blood mixed. She states although she has had history of hemorrhoids she has never had rectal bleeding previously. She feels lightheaded but denies any chest pain or increased shortness of breath over her baseline. No other bleeding diathesis. No nausea or vomiting, no hematemesis. She denies any abdominal pain currently. No recent fevers or chills. PFSH PFS Medical History Migraine Psoriasis Depression Osteoporosis Primary insomnia Hyperlipidemia Hypothyroidism Obstructive sleep apnea (adult) (pediatric) Mild persistent asthma, uncomplicated Unspecified abnormalities of gait and mobility Difficulty in walking, not elsewhere classified Muscle wasting and atrophy, not elsewhere classified, left lower leg Muscle wasting and atrophy, not elsewhere classified, right lower leg Chronic respiratory failure with hypoxia Seasonal allergies Anemia High cholesterol GERD (gastroesophageal reflux disease) HTN (hypertension) Anxiety Pulmonary fibrosis Home Medications ?Medication ?Instructions ?Recorded ?Last Taken ?Type acetaminophen 500 mg tablet 500 mg PO Q6H PRN fever or pain 11/03/24 Unknown History (Tylenol Extra Strength) albuterol sulfate 90 mcg/actuation 2 puff inhalation Q 6H PRN 11/03/24 Unknown History aerosol inhaler (Ventolin HFA) shortness of breath or wheezing famotidine 20 mg tablet 20 mg PO QDAY 11/03/24 Unkno wn History fexofenadine 180 mg tablet 180 mg PO QDAY PRN allergy symptoms 11/03/24 Unknown History gabapentin 100 mg capsule 100 mg PO TID 11/03/24 Unkno wn History guaifenesin 600 mg tablet, 600 mg PO DAILY 11/03/24 Un known History extended release 12 hr (Mucinex) levothyroxine 75 mcg tablet 37.5 mcg PO QDAY 11/03/24 Unknown History (Levo-T) magnesium hydroxide 400 mg/5 mL 30 ml PO ONCE PRN stom ach upset 11/03/24 Unknown History oral suspension (Milk of Magnesia) nortriptyline 50 mg capsule 100 mg PO QHS 11/03/24 Unk nown History ondansetron 4 mg disintegrating 4 mg PO Q6H PRN nausea and vomiting 11/03/24 Unknown History tablet pantoprazole 40 mg tablet,delayed 40 mg PO Q12H Unknown History release pravastatin 40 mg tablet 40 mg PO QDAY 11/03/24 Unkno wn History psyllium husk 2.6 gram/4.1 gram 1 tbsp PO ONCE 5 Unknown History oral powder sennosides 8.6 mg tablet (senna) 8.6 mg PO QDAY Unknown History sumatriptan succinate 100 mg tablet See Rx Instruction s PO .COMPLEX 11/03/24 Unknown History verapamil 240 mg 24 hr 240 mg PO BID 11/03/24 Unkno wn History capsule,extended release alprazolam 1 mg tablet 1 mg PO TID anxiety 30 days #90 11/25/24 Unknown Rx tabs clonidine 0.2 mg/24 hr weekly 1 patch topical QWEEK Unknown History transdermal patch gabapentin 100 mg capsule 200 mg PO QHS 11/27/24 Unkno wn History hydralazine 25 mg tablet 25 mg PO Q8H PRN sbp>150 Unknown History lidocaine HCl 4 % topical cream 1 applic topical .COMP JOSE pain 11/27/24 Unknown History (Aspercreme (lidocaine HCl)) metoprolol succinate 25 mg 25 mg PO DAILY 11/27/24 Unk nown History tablet,extended release 24 hr mometasone 200 mcg/actuation HFA 2 puff inhalation BID 11/27/24 Unknown History aerosol inhaler (Asmanex HFA) natural ears 1 gtt EACH EAR QHS PRN ear p ain 11/27/24 Unknown History pirfenidone 801 mg tablet 801 mg PO TID 11/27/24 Unkno wn History Allergy/AdvReac Type Severity Reaction Status Date / Time amoxicillin Allergy Mild PT UNSURE Verified 11/27/24 15:00 OF REACTION aspirin Allergy Mild PALPITATION Verified 11/27/24 15:00 S ibuprofen Allergy Mild Swelling Verified 11/27/24 15:00 montelukast Allergy Mild Rash Verified 11/27/24 15:00 rofecoxib Allergy Mild Itching Verified 11/27/24 15:00 Sulfa (Sulfonamide Allergy Mild Rash Verified 11/27/24 15:00 Antibiotics) doxycycline AdvReac Mild GI UPSET Verified 11/27/24 15:00 lisinopril AdvReac Mild GI UPSET Verified 11/27/24 15:00 sertraline AdvReac Mild Diarrhea Verified 11/27/24 15:00 Social History Smoking Status: Never smoker ROS ROS ED ROS Narrative Review of systems positive for bright red blood per rectum. Positive lightheadedness. No chest pain or increased shortness of breath, no exacerbating or alleviating factors. No nausea or vomiting. No hematemesis. EXAM Physical Exam Narrative Exam Narrative: Afebrile. Vital signs noted. Nontoxic-appearing. Cardiovascular examination of is a regular rate and rhythm. Lungs clear to auscultation bilaterally without tachypnea or wheezing. Abdomen is soft and nontender without guarding or rebound. Neurological examination nonfocal, nonlateralizing. No pallor of skin or conjunctiva. No central cyanosis. Const Vital Signs: 11/27/24 14:52 11/27/24 15:21 Temperature 97.8 F Temperature Source Oral Pulse Rate 72 Pulse Rate [Lying] 70 Pulse Rate [Sitting (for 1 minute prior to obtaining)] 73 Pulse Rate [Standing (for 1 minute prior to obtaining)] 74 Respiratory Rate 18 Blood Pressure 135/67 H Blood Pressure [Lying] 131/63 H Blood Pressure [Sitting (for 1 minute prior to obtaining)] 120/65 Blood Pressure [Standing (for 1 minute prior to obtaining)] 109/59 L Blood Pressure Mean 89 Blood Pressure Mean [Lying] 85 Blood Pressure Mean [Sitting (for 1 minute prior to obtaining)] 83 Blood Pressure Mean [Standing (for 1 minute prior to obtaining)] 75 Pulse Ox 100 Oxygen Delivery Method Nasal Cannula Oxygen Flow Rate (L/min) 3 MDM MDM MDM Narrative Medical decision making narrative: The differential diagnosis includes but not limited to diverticular bleed versus internal hemorrhoid bleeding versus external hemorrhoid bleeding versus brisk upper GI bleeding. History and physical does not favor brisk upper GI bleeding. Given her lightheadedness, orthostatics will be obtained, but physical exam is not consistent with anemia requiring transfusion. I do not feel that she needs CT imaging. CBC will be obtained to check her hemoglobin level. BMP obtained as well. Chaperoned anoscopy will be performed at the bedside. I reviewed her laboratory work and she has normal white count 6.5, hemoglobin shows anemia of 8.5, compared to prior labs this appears to be her baseline. Platelet count normal at 191. Orthostatics were mildly positive in the sense that her systolic blood pressure did drop from 135 down to 109. She did not become tachycardic however. Results of the cardiac catheterization technician anoscopy did show a large clot above the anus scope with a small amount of blood above the scope as well. Sodium low at 132 with chloride also low at 92. BUN normal at 12 with creatinine 0.82. I will check the BNP, but given her drop in blood pressure, anemia, and lower GI bleeding, I suspect more either an AV malformation or diverticular bleed. I do feel that she requires admission. Patient discussed with Dr. Mariela Lilly. It was felt that given her comorbidities and orthostatic hypotension that she should be admitted to the PCU. Disposition is admitted in stable condition. History & Record Review Discussion w/independent historian: Patient Additional record(s) reviewed:: Prior ED visit (Seen for epistaxis, last visit in 2023.) Lab Data Attestation: I reviewed the patient's lab results. Labs: Laboratory Results - last 24 hr 11/27/24 15:03 WBC 6.5 RBC 2.75 L Hgb 8.5 L Hct 27.7 L MCV 100.7 H MCH 30.9 MCHC 30.7 L RDW Std Deviation 45.8 H RDW Coeff of Francisca 12.4 Plt Count 191 MPV 9.2 Immature Gran % (Auto) 0.500 Neut % (Auto) 59.8 Lymph % (Auto) 18.9 L Hood % (Auto) 9.5 Eos % (Auto) 10.4 H Baso % (Auto) 0.9 Absolute Neuts (auto) 3.9 Absolute Lymphs (auto) 1.23 Nucleated RBC % 0 Sodium 132 L Potassium 4.1 Chloride 92 L Carbon Dioxide 33.1 H Anion Gap 7 BUN 12 Creatinine 0.82 Estim Creat Clear Calc 45.22 L Est GFR (MDRD) Non-Af 71 BUN/Creatinine Ratio 14.8 Glucose 127 H Calcium 8.9 Management Discussion w/another healthcare provider: Hospitalist (Dr. Lilly) Discharge Plan Dx/Rx/DC Orders Clinical Impression: Acute lower GI bleeding, Pulmonary fibrosis, Orthostatic hypotension, Anemia Disposition Disposition: Acute Care Hospital [facility]
--- OUTSIDE RECORDS SUMMARY | 2024-11-27 15:18 | XMS RPT_ITS ---
Author Name Auto Generated Organization OHIP PROBLEMS No Problem Records Found PROCEDURES No Procedure Records Found RESULTS CNPN Observed: 11/21/2024 12:00 AM Status: COMPLETED Source: [facility] Telephone ([facility]) MERNA NEGRON ([id number]) 1940 F NFR Date Time Provider Department 11/21/24 SHIVA DIAS [facility] During your visit today, we recorded the following information about you: Indigo Decker, RN 11/21/2024 3:06 PM Signed Spoke to patient and Mary from the facility Merna resides at. Mary states she is going to see if Dr. Osullivan will prescribe the Pirfenidone. Merna will reach out to the office with any questions or concerns. Allergies As of Date: 11/21/2024 Noted Allergy Reaction ROFECOXIB 04/20/2002 9 - [...] - Diarrhea Date Reviewed: 09/25/2023 Reviewed by: Stacia Crouch MA - Fully Assessed Prescriptions as of 11/21/2024 - pirfenidone (ESBRIET) 801 mg tablet Take 1 tablet by mouth three times a day. - esomeprazole (NEXIUM) 40 mg capsule Take 1 capsule by mouth daily before breakfast. - nortriptyline (PAMELOR) 75 mg capsule Take 1 capsule by mouth daily at bedtime. - triamcinolone [...] (FLONASE) 50 mcg/actuation nasal spray Use 1 Follett in each nostril once daily. - gabapentin [...] NEEDED FOR WHEEZING/SHORTNESS OF BREATH. - fexofenadine (VANGIE) 180 mg tablet Take 180 mg by [...] as directed. Problem List As Of Date 11/21/2024 Noted Resolved Pure hypercholesterolemia [E78.00] 07/05/2002 Rotator cuff (capsule) sprain [S43.429A] 06/21/2003 07/22/2017 Recurrent major depressive disorder, in full re*05/21/2004 Asthma [J45.909] 05/21/2004 Essential hypertension [I10] 07/15/2005 OTHER PSORIASIS [L40.8] 09/04/2005 Primary osteoarthritis of hip [M16.10] 09/04/2005 Pes anserinus tendinitis or bursitis [HDL7340] 09/04/2005 07/22/2017 PLANTAR FIBROMATOSIS [M72.2] 09/04/2005 Backache, [...] [F41.9] 07/22/2017 Idiopathic pulmonary fibrosis (HCC) [J84.112] 12/23/2017 Primary insomnia [F51.01] 11/09/2018 Chronic respiratory failure with hypoxia (HCC) *09/04/2020 Encounter Status:Closed by INDIGO DECKER on 11/21/24 ISABELA Observed: 01/25/2024 12:00 AM Status: COMPLETED Source: [facility] Telephone ([facility]) MERNA NEGRON ([id number]) 1940 F NFR Date Time Provider Department 01/25/24 SHIVA DIAS [facility] During your visit today, we recorded the following information about you: Brijesh Araujo LPN 01/25/2024 8:30 AM Signed Fax received from [facility] requesting sleep study and office visit notes supporting use of cpap. Sleep study from 2015 as well as office visit notes from 11/28/22 and 09/25/23 faxed to [facility] at [phone]. Transmission successful, paperwork in fax drawer. Indigo Decker RN 04/18/2024 1:53 PM Signed Spoke to Grimes from [facility]. Asking for recent ABG and [...] - Diarrhea Date Reviewed: 09/25/2023 Reviewed by: Stacia Crouch MA - Fully Assessed Reason for Visit: [...] (FLONASE) 50 mcg/actuation nasal spray Use 1 Follett in each nostril once daily. - gabapentin [...] NEEDED FOR WHEEZING/SHORTNESS OF BREATH. - fexofenadine (VANGIE) 180 mg tablet Take 180 mg by [...] [M16.10] 09/04/2005 Pes anserinus tendinitis or bursitis [[id number]] 09/04/2005 07/22/2017 PLANTAR FIBROMATOSIS [M72.2] 09/04/2005 Backache, [...] [F41.9] 07/22/2017 Idiopathic pulmonary fibrosis (HCC) [J84.112] 12/23/2017 Primary insomnia [F51.01] 11/09/2018 Chronic respiratory failure with hypoxia (HCC) *09/04/2020 Encounter Status:Closed by BRIJESH ARAUJO on 01/25/24 ISABELA Observed: 12/31/2023 12:00 AM Status: COMPLETED Source: [facility] Telephone ([facility]) JAMILMERNA Perez ([id number]) 1940 F NFR Date Time Provider Department 12/31/23 SHIVA DIAS [facility] During your visit today, we recorded the following information about you: Stacia Crouch MA 12/31/2023 3:23 PM Signed Fax received from [facility] for orders for Oxygen Concentrator and Supplies. E1390,E1392,A4615,A4616. Dx's J84.11,J96.11, J45.30 AND G47.33. Placed in Dr. Dias's office to be signed. Stacia Crouch MA 01/01/2024 5:25 PM Signed Forms faxed back to [facility]. Transmission with forms in drawer. [...] - Diarrhea Date Reviewed: 09/25/2023 Reviewed by: Staica Crouch MA - Fully Assessed Reason for Visit: [...] (FLONASE) 50 mcg/actuation nasal spray Use 1 Follett in each nostril once daily. - gabapentin [...] NEEDED FOR WHEEZING/SHORTNESS OF BREATH. - fexofenadine (VANGIE) 180 mg tablet Take 180 mg by [...] [M16.10] 09/04/2005 Pes anserinus tendinitis or bursitis [[id number]] 09/04/2005 07/22/2017 PLANTAR FIBROMATOSIS [M72.2] 09/04/2005 Backache, [...] [F41.9] 07/22/2017 Idiopathic pulmonary fibrosis (HCC) [J84.112] 12/23/2017 Primary insomnia [F51.01] 11/09/2018 Chronic respiratory failure with hypoxia (HCC) *09/04/2020 Encounter Status:Closed by STACIA CROUCH on 12/31/23 ALLERGIES No Allergies Records Found ENCOUNTERS No Encounter Records Found PAYERS No Payer Records Found
[2024-11-27 15:21] VITALS: BP 109/59; BP 120/65; BP 131/63; PULSE 70; PULSE 73; PULSE 74
[2024-11-27 15:22] LABS: Hematocrit 27.7 % (37-47); Hemoglobin 8.5 g/dL (12.0-15.0); Immature Granulocytes Count 0.030 X10^3/uL (0.0-0.0); Mean Corp Hgb Conc 30.7 g/dL (32-36); Mean Corpuscular Volume 100.7 fL (81-99); Mean Platelet Vol. 9.2 fl (6.2-12.0); NRBC Flagged by Analyzer 0 % (0-5); Platelet Count 191 K/mm3 (150-450); RBC Distribution Width CV 12.4 % (11.6-14.6); RBC Distribution Width SD 45.8 fl (35.1-43.9); Red Blood Count 2.75 M/mm3 (4.2-5.4); White Blood Count 6.5 K/mm3 (4.4-11.0)
[2024-11-27 15:51] LABS: Anion Gap 7 (5-15); BUN 12 mg/dL (4-19); BUN/Creat Ratio 14.8 RATIO (10-20); Calcium,Total 8.9 mg/dL (7.6-11.0); Carbon Dioxide 33.1 mmol/L (21.0-32.0); Chloride 92 mmol/L (98-108); Estimated Creatinine Clearance 45.22 ml/min (50-250); Glucose 127 mg/dL (70-99); Potassium 4.1 mmol/L (3.3-5.1)
--- NOTE | 2024-11-27 16:42 | PCM.HP.STD ---
HPI - General General Date of Admission: 11/27/24 Date of Service: 11/27/24 Chief Complaint: Bright red blood per rectum HPI Narrative LIZ NEGRON, is a 84-year-old female history of pulmonary fibrosis on 3 L of O2 chronically, hypertension, hypothyroidism, GERD, anxiety who presented [facility] ED 11/27/2024 with rectal bleeding that began today. Recently constipated and passed hard stool and then this morning noticed she had bright red blood per rectum. Had to wipe multiple times but the bleeding lessened however due to the blood snf wanted to send her to the ED however she wanted to wait but then she had another bowel movement with bright red blood mixed in. Reported feeling little lightheaded but no other acute complaints. In the ED temp 97.8, heart rate 72, blood pressure 135/67, respiratory 18 pulse ox 100% on 3 L nasal cannula. She did have positive orthostats with blood pressure 131/63 down to 109/57 on standing. CBC with white count 6.5 and hemoglobin 8.5 similar to CBC in August of this year BMP with a sodium of 132, bicarb 33, BUN of 12 and a creatinine of 0.82. Patient had no further episodes in the ED but she did have anoscopy which showed large clot with some amount of blood above the scope. Given the above with the positive orthostats and 2 episodes of blood in the stool with anoscopy results hospitalist contacted for admission. Patient evaluated with her niece at bedside, she reports as above with the 2 episodes of bright red blood per rectum, notes that she did briefly feel lightheaded when she was up moving around and got some double vision that completely resolved and has not come back since that time. Denies any abdominal pain, no nausea or vomiting, no changes in urination. Has had some changes in her blood pressure medications several days ago, otherwise denies any acute changes no blood thinners. She has not had any more episodes of blood in her stool in the ED and no further episodes of lightheadedness. Of note patient reports she has a cough with her pulmonary fibrosis and coughs significantly and thinks that may have contributed due to the increased pressure in her abdomen [facility] Medical History Migraine Psoriasis Depression Osteoporosis Primary insomnia Hyperlipidemia Hypothyroidism Obstructive sleep apnea (adult) (pediatric) Mild persistent asthma, uncomplicated Unspecified abnormalities of gait and mobility Difficulty in walking, not elsewhere classified Muscle wasting and atrophy, not elsewhere classified, left lower leg Muscle wasting and atrophy, not elsewhere classified, right lower leg Chronic respiratory failure with hypoxia Seasonal allergies Anemia High cholesterol GERD (gastroesophageal reflux disease) HTN (hypertension) Anxiety Pulmonary fibrosis Home Medications ?Medication ?Instructions ?Recorded ?Last Taken ?Type acetaminophen 500 mg tablet 500 mg PO Q6H PRN fever or pain 11/03/24 Unknown History (Tylenol Extra Strength) albuterol sulfate 90 mcg/actuation 2 puff inhalation Q6H PRN 11/03/24 Unknown History aerosol inhaler (Ventolin HFA) shortness of breath or wheezing famotidine 20 mg tablet 20 mg PO QDAY 11/03/24 Unknown History fexofenadine 180 mg tablet 180 mg PO QDAY PRN allergy symptoms 11/03/24 Unknown History gabapentin 100 mg capsule 100 mg PO TID 11/03/24 Unknown History guaifenesin 600 mg tablet, 600 mg PO DAILY 11/03/24 Unknown History extended release 12 hr (Mucinex) levothyroxine 75 mcg tablet 37.5 mcg PO QDAY 11/03/24 Unknown History (Levo-T) magnesium hydroxide 400 mg/5 mL 30 ml PO ONCE PRN stomach upset 11/03/24 Unknown History oral suspension (Milk of Magnesia) nortriptyline 50 mg capsule 100 mg PO QHS 11/03/24 Unknown History ondansetron 4 mg disintegrating 4 mg PO Q6H PRN nausea and vomiting 11/03/24 Unknown History tablet pantoprazole 40 mg tablet,delayed 40 mg PO Q12H 11/03/24 Unknown History release pravastatin 40 mg tablet 40 mg PO QDAY 11/03/24 Unknown History psyllium husk 2.6 gram/4.1 gram 1 tbsp PO ONCE 11/03/24 Unknown History oral powder sennosides 8.6 mg tablet (senna) 8.6 mg PO QDAY 11/03/24 Unknown History sumatriptan succinate 100 mg tablet See Rx Instructions PO .COMPLEX 11/03/24 Unknown History verapamil 240 mg 24 hr 240 mg PO BID 11/03/24 Unknown History capsule,extended release alprazolam 1 mg tablet 1 mg PO TID anxiety 30 days #90 11/25/24 Unknown Rx tabs clonidine 0.2 mg/24 hr weekly 1 patch topical QWEEK 11/27/24 Unknown History transdermal patch gabapentin 100 mg capsule 200 mg PO QHS 11/27/24 Unknown History hydralazine 25 mg tablet 25 mg PO Q8H PRN sbp>150 11/27/24 Unknown History lidocaine HCl 4 % topical cream 1 applic topical .COMPLEX pain 11/27/24 Unknown History (Aspercreme (lidocaine HCl)) metoprolol succinate 25 mg 25 mg PO DAILY 11/27/24 Unknown History tablet,extended release 24 hr mometasone 200 mcg/actuation HFA 2 puff inhalation BID 11/27/24 Unknown History aerosol inhaler (Asmanex HFA) natural ears 1 gtt EACH EAR QHS PRN ear pain 11/27/24 Unknown History pirfenidone 801 mg tablet 801 mg PO TID 11/27/24 Unknown History Allergy/AdvReac Type Severity Reaction Status Date / Time amoxicillin Allergy Mild PT UNSURE Verified 11/27/24 15:00 OF REACTION aspirin Allergy Mild PALPITATION Verified 11/27/24 15:00 S ibuprofen Allergy Mild Swelling Verified 11/27/24 15:00 montelukast Allergy Mild Rash Verified 11/27/24 15:00 rofecoxib Allergy Mild Itching Verified 11/27/24 15:00 Sulfa (Sulfonamide Allergy Mild Rash Verified 11/27/24 15:00 Antibiotics) doxycycline AdvReac Mild GI UPSET Verified 11/27/24 15:00 lisinopril AdvReac Mild GI UPSET Verified 11/27/24 15:00 sertraline AdvReac Mild Diarrhea Verified 11/27/24 15:00 Social History Smoking Status: Never smoker ROS ROS Narrative General: Denies fever/chills, episode of lightheadedness resolved HENT: Denies headache, denies stuffy nose, denies sore throat EYES: Denies changes in vision Resp chronic cough and shortness of breath at baseline Cardiac: Denies chest pain GI: Denies abdominal pain, blood in stool earlier, denies nausea/vomiting : Denies changes in urination Extremity: Denies swelling MSK: Denies weakness Neuro: Problems with chronic neuropathy Heme: Denies any bleeding or bruising Skin: Denies rashes Psychiatric: No complaints voiced Vital Signs Vital Signs Vital Signs: 11/27/24 14:52 11/27/24 15:21 Temperature 97.8 F Temperature Source Oral Pulse Rate 72 Pulse Rate [Lying] 70 Pulse Rate [Sitting (for 1 minute prior to obtaining)] 73 Pulse Rate [Standing (for 1 minute prior to obtaining)] 74 Respiratory Rate 18 Blood Pressure 135/67 H Blood Pressure [Lying] 131/63 H Blood Pressure [Sitting (for 1 minute prior to obtaining)] 120/65 Blood Pressure [Standing (for 1 minute prior to obtaining)] 109/59 L Blood Pressure Mean 89 Blood Pressure Mean [Lying] 85 Blood Pressure Mean [Sitting (for 1 minute prior to obtaining)] 83 Blood Pressure Mean [Standing (for 1 minute prior to obtaining)] 75 Pulse Ox 100 Oxygen Delivery Method Nasal Cannula Oxygen Flow Rate (L/min) 3 Weight Weight: 62.6 kg Body Mass Index (BMI) 25.2 Physical Exam Narrative General: Alert, oriented, no apparent distress HEENT: Atraumatic, normocephalic Eyes: Anicteric, normal conjunctiva, extraocular movements grossly intact Neck: Supple Respiratory: Fine crackles diffusely, normal respiratory effort Cardiovascular: Regular rate and rhythm GI: Soft, nontender, nondistended Extremities: No edema Musculoskeletal: Moving all extremities Neuro: No overt focal neurological deficits Skin: No rashes appreciated Psych: Cooperative Results Lab / Micro Data 11/27/24 15:03 11/27/24 15:03 Labs: Laboratory Results - last 24 hr 11/27/24 15:03: WBC 6.5, RBC 2.75 L, Hgb 8.5 L, Hct 27.7 L, MCV 100.7 H, MCH 30.9, MCHC 30.7 L, RDW Std Deviation 45.8 H, RDW Coeff of Francisca 12.4, Plt Count 191, MPV 9.2, Immature Gran % (Auto) 0.500, Neut % (Auto) 59.8, Lymph % (Auto) 18.9 L, Hawkins % (Auto) 9.5, Eos % (Auto) 10.4 H, Baso % (Auto) 0.9, Absolute Neuts (auto) 3.9, Absolute Lymphs (auto) 1.23, Nucleated RBC % 0, Sodium 132 L, Potassium 4.1, Chloride 92 L, Carbon Dioxide 33.1 H, Anion Gap 7, BUN 12, Creatinine 0.82, Estim Creat Clear Calc 45.22 L, Est GFR (MDRD) Non-Af 71, BUN/Creatinine Ratio 14.8, Glucose 127 H, Calcium 8.9 Assessment & Plan Assessment/Plan (1) Bright red blood per rectum: PLAN: Plan # Bright red blood per rectum -Patient with 2 episodes of bright red blood per rectum -Anoscopy did show some blood and clot -Suspect this is lower GI, BUN within normal limits, patient on PPI and has no epigastric pain, no blood thinners, she has had no more symptoms of lightheadedness and is presently vitally stable -Patient does take PPI twice daily so we will change this to IV though, again, upper GI bleed much less likely - Will monitor for bleeding overnight, H&H in the a.m. or sooner if any further episodes of blood in stool -Will place patient on a clear liquid diet and n.p.o. at midnight in the event she would have drop in hemoglobin or increased bleeding that would necessitate evaluation/intervention tomorrow -Pending clinical course overnight, vital stability, hemoglobin in the a.m. it can be decided if patient would benefit from inpatient versus outpatient GI evaluation - Does have history of constipation and had recent hard stools, will schedule stool softener # Positive orthostats -Blood pressure in ED 131/63 and subsequently went down to 109/59 upon standing but patient asymptomatic, sitting there on my evaluation systolic 150 and no tachycardia noted - Patient on multiple blood pressure medications and nortriptyline which could cause the positive orthostats potentially especially given patient asymptomatic at that time - Though given patient coming in for GI bleed will monitor blood pressure and heart rate closely and patient will be admitted to PCU #Hypertension - Patient not presently hypotensive, continue clonidine patch and verapamil - Will hold metoprolol as this is generally not indicated with verapamil due to potential for adverse interactions and side effects and patient had positive orthostats on presentation with some transient lightheadedness earlier as well # History of pulmonary fibrosis and chronic hypoxic respiratory failure -On 3 L of nasal cannula chronically -Presently no new respiratory complaints -Continue patient's home pirfenidone -Continue home inhalers - Incentive spirometer #Hypothyroidism -Continue Synthroid #GERD - Will switch PPI to IV though much lower suspicion for upper GI # Anxiety -Continue home medications # Migraines - Patient takes nortriptyline and sumatriptan as needed -Last took sumatriptan last night -No present headache #DVT ppx: SCDs Mariela Lilly MD Charges/Coding Visit Charges Inpatient E&M: 85916 Init Hosp L2
[2024-11-27 16:59] VITALS: BP 150/67; PULSE 68; RESP 18; O2SAT 99
[2024-11-27 17:36] VITALS: BP 150/65; PULSE 70; RESP 18; TEMP 37; O2SAT 100
--- OUTSIDE RECORDS SUMMARY | 2024-11-27 17:47 | XMS RPT_ITS ---
Author Name Auto Generated Organization OHIP PROBLEMS No Problem Records Found PROCEDURES No Procedure Records Found RESULTS CNPN Observed: 11/21/2024 12:00 AM Status: COMPLETED Source: [facility] Telephone ([facility]) MERNA NEGRON ([id number]) 1940 F NFR Date Time Provider Department 11/21/24 SHIVA DIAS [facility] During your visit today, we recorded [...] (FLONASE) 50 mcg/actuation nasal spray Use 1 Clementon in each nostril once daily. 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 Sleep study from 2015 as well as office visit notes from 11/28/22 and 09/25/23 faxed to [facility] at [phone]. Transmission successful, paperwork in fax drawer. Indigo Decker RN 04/18/2024 1:53 PM Signed Spoke to Moro from [facility]. Asking for recent ABG and PFT's for [...] (FLONASE) 50 mcg/actuation nasal spray Use 1 Clementon in each nostril once daily. 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 [id number],E1392,A4615,A4616. Dx's J84.11,J96.11, J45.30 AND G47.33. Placed in Dr. Dias's office to be signed. Stacia Crouch MA 01/01/2024 5:25 PM Signed Forms faxed back to [facility]. Transmission with forms in drawer. Allergies [...] (FLONASE) 50 mcg/actuation nasal spray Use 1 Clementon in each nostril once daily. 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
[2024-11-27 17:57] VITALS: BMI 24.0
[2024-11-27] MEDS: 0.9% Normal Saline (1000mL) 1,000 ML 50 ML IV (19:30)
[2024-11-27 21:05] VITALS: BP 158/78; PULSE 75; RESP 16; TEMP 36.6; O2SAT 99
[2024-11-27] MEDS: Pantoprazole Sodium 40 MG in 0.9% Normal Saline (100mL MB+) 100 ML 300 MG IV (21:05)
[2024-11-27] MEDS: MELATONIN 10 MG TABLET PO (21:07)
[2024-11-28] VITALS (7 sets, daily range): BP systolic 100–157; BP diastolic 54–64; PULSE 62–81; RESP 16–18; TEMP 36.3–36.6; O2SAT 94–100
[2024-11-28 05:33] LABS: Hematocrit 26.2 % (37-47); Hemoglobin 7.9 g/dL (12.0-15.0); Immature Granulocytes Count 0.010 X10^3/uL (0.0-0.0); Mean Corp Hgb Conc 30.2 g/dL (32-36); Mean Corpuscular Volume 100.8 fL (81-99); Mean Platelet Vol. 9.2 fl (6.2-12.0); NRBC Flagged by Analyzer 0 % (0-5); Platelet Count 191 K/mm3 (150-450); RBC Distribution Width CV 12.5 % (11.6-14.6); RBC Distribution Width SD 45.8 fl (35.1-43.9); Red Blood Count 2.60 M/mm3 (4.2-5.4); White Blood Count 5.4 K/mm3 (4.4-11.0)
[2024-11-28 06:06] LABS: Anion Gap 6 (5-15); BUN 10 mg/dL (4-19); BUN/Creat Ratio 16.5 RATIO (10-20); Calcium,Total 8.5 mg/dL (7.6-11.0); Carbon Dioxide 32.4 mmol/L (21.0-32.0); Chloride 101 mmol/L (98-108); Estimated Creatinine Clearance 42.14 ml/min (50-250); Glucose 92 mg/dL (70-99); Potassium 4.1 mmol/L (3.3-5.1)
[2024-11-28] MEDS: Pantoprazole Sodium 40 MG in 0.9% Normal Saline (100mL MB+) 100 ML 300 MG IV ×2 (08:35→22:45)
[2024-11-28 12:26] LABS: Hematocrit 26.5 % (37-47); Hemoglobin 8.2 g/dL (12.0-15.0)
--- NOTE | 2024-11-28 13:20 | CASEMGMT ---
Addendum entered by Jannet Srivastava 11/28/24 15:17: Pt concerned about cost of transportation to return to [facility], if Pt does not meet criteria for transport to be covered, niece is able to provide transportation. Original Note: GEOFFREY MCBRIDE into pt room, pt lying in bed in no distress. Pt states she is in Jail at [facility] and wishes to return upon DC. Denies a list at this time. GEOFFREY MCBRIDE notified DC planning engineer to send referral.
--- NOTE | 2024-11-28 13:44 | CASEMGMT ---
Addendum entered by Sharona Peoples 11/28/24 16:12: Patient is a bedhold and will not require a precert to return. Sharona Peoples DC Planning Asst. Original Note: Discharge Planning Updates sent to [facility]. Sharona Peoples DC Planning Asst.
[2024-11-28] MEDS: Lidocaine 5% Patch 1 PATCH TOPICAL (14:07)
--- NOTE | 2024-11-28 15:31 | PN.HOSP_ITS ---
Subjective Subjective Doing well, no issues overnight Objective Data Objective Data Vital Signs: Vital Signs Temp Pulse Resp BP Pulse Ox O2 Del Method O2 Flow Rate 97.9 F 71 16 124/60 H 99 Nasal Cannula 3 11/28/24 14:00 11/28/24 14:00 11/28/24 14:00 11/28/24 14:00 11/28/24 14:00 11/28/24 15:28 11/28/24 15:28 Oxygen Flow Rate (L/min) 3 Oxygen Delivery Method Nasal Cannula Weight: 131 lb 13.383 oz Body Mass Index (BMI) 24.0 Intake & Output: Intake and Output for Last 24 Hours 11/27/24 11/28/24 11/29/24 03:59 03:59 03:59 Intake Total 700 / 700 616.67 / 616.67 Balance 700 / 700 616.67 / 616.67 Lab / Micro Data 11/28/24 12:03 11/28/24 05:13 Labs: Laboratory Results - last 24 hr 11/27/24 15:03: Sodium 132 L, Potassium 4.1, Chloride 92 L, Carbon Dioxide 33.1 H, Anion Gap 7, BUN 12, Creatinine 0.82, Estim Creat Clear Calc 45.22 L, Est GFR (MDRD) Non-Af 71, BUN/Creatinine Ratio 14.8, Glucose 127 H, Calcium 8.9 11/28/24 05:13: WBC 5.4, RBC 2.60 L, Hgb 7.9 L, Hct 26.2 L, MCV 100.8 H, MCH 30.4, MCHC 30.2 L, RDW Std Deviation 45.8 H, RDW Coeff of Francisca 12.5, Plt Count 191, MPV 9.2, Immature Gran % (Auto) 0.200, Neut % (Auto) 52.2, Lymph % (Auto) 25.0, Zapata % (Auto) 10.0, Eos % (Auto) 11.3 H, Baso % (Auto) 1.3 H, Absolute Neuts (auto) 2.8, Absolute Lymphs (auto) 1.35, Nucleated RBC % 0, Sodium 139, Potassium 4.1, Chloride 101, Carbon Dioxide 32.4 H, Anion Gap 6, BUN 10, C reatinine 0.59 L, Estim Creat Clear Calc 42.14 L, Est GFR (MDRD) Non-Af 89, BUN/Creatinine Ratio 16.5, Glucose 92, Calcium 8.5 11/28/24 12:03: Hgb 8.2 L, Hct 26.5 L Physical Exam Narrative General: Alert, Oriented x3, Cooperative, No apparent distress HEENT: Atraumatic, PERRLA, EOMI, Normocephalic Oral: Moist Mucosa Neck: Supple, No JVD Lungs: Diminished, Normal air movement, No rhonchi, No wheeze, No rales Cardiovascular: Regular rate, Regular Rhythm, Normal S1, Normal S2, No murmurs Abdomen: Soft, Non Tender, Non-Distended, No Hepato-splenomegaly Extremities: No edema, Capillary Refill Less than 3 Seconds Skin: No rashes, No breakdown Musculoskeletal: No Tenderness to Palpation of Joints or Extremities Neurological: No focal neurological deficits, moves all extremities Psych/Mental Status: Normal Affect, Appropriate Assessment & Plan Assessment/Plan (1) Bright red blood per rectum: PLAN: Plan 1. Bright red blood per rectum with positive orthostatic vital signs/GERD ? Continue to monitor hemoglobin, afternoon check was 8.2 so it is possible that she has discontinued her bleeding ? Will recheck in the morning ? Continue with PPI ? Can advance her diet today, if her hemoglobin drops again tomorrow morning and she will need to have a prep with GI consult 2. Essential HTN ? Continue with clonidine and verapamil ? Will monitor and make adjustments as necessary ? Will hold her metoprolol 3. History of pulmonary fibrosis with chronic hypoxic respiratory failure ? She is on her baseline oxygen requirement of 3 L nasal cannula ? She can resume her home pirfenidone on discharge ? Continue with her home inhalers 4. Hypothyroidism ? Stable ? Continue with Synthroid 5. Anxiety/depression/migraines ? Stable ? Continue with her home medications DVT: SCDs Charges/Coding Visit Charges Inpatient E&M: 79067 Subs Hosp L2
--- NOTE | 2024-11-28 15:56 | CHAPLAIN ---
Type of Pastoral Visit _x__ Initial Visit ___ Follow-up Visit ___ On-call Visit ___ General Patient Visit ___ Spiritual Assessment ___ Family Conference ___ Bereavement ___ Rapid Response ___ Code Blue ___ Other (describe below) Pastoral Care Referral From _x__ Patient ___ Family ___ Nurse ___ Physician ___ Family Assistant ___ Food Service Driver ___ Other (describe below) Sacrament/Intervention _x__ Active listening ___ Anointing ___ Religion ___ Bereavement ___ Communion _x__ Merle exploration ___ _x__ Life review _x__ Prayer ___ Reconciliation ___ Sacrament of Sick _x__ Supportive presence ___ Wedding ___ Other (describe below) Pastoral Comments patient is given time to talk about the reason that she came to the hospital' pt gives a brief summary of life review; pt has suffered of a son from an accident and this led to their relocation of home and work; pt is back in the area and enjoying [facility] now; pt speaks of her [employer] merle and journey of finding true life and evens; pt welcomes presence and prayer
[2024-11-28] MEDS: Albuterol 2.5 MG/3 ML VIAL.NEB. INHALATION (16:29)
[2024-11-28] MEDS: Rizatriptan Benzoate 5 MG Tablet PO (18:05)
[2024-11-28] MEDS: Budesonide Respules 0.5 MG/2 ML AMPUL.NEB. INHALATION (20:00)
[2024-11-28] MEDS: Senna/Docusate Sodium 1 Tablet 2 TABLET PO (22:46)
[2024-11-29 03:10] VITALS: BP 134/56; PULSE 74; RESP 15; TEMP 36.3; O2SAT 96
[2024-11-29 06:09] LABS: Hematocrit 25.7 % (37-47); Hemoglobin 7.9 g/dL (12.0-15.0); Immature Granulocytes Count 0.020 X10^3/uL (0.0-0.0); Mean Corp Hgb Conc 30.7 g/dL (32-36); Mean Corpuscular Volume 100.8 fL (81-99); Mean Platelet Vol. 9.5 fl (6.2-12.0); NRBC Flagged by Analyzer 0 % (0-5); Platelet Count 179 K/mm3 (150-450); RBC Distribution Width CV 12.5 % (11.6-14.6); RBC Distribution Width SD 46.3 fl (35.1-43.9); Red Blood Count 2.55 M/mm3 (4.2-5.4); White Blood Count 7.0 K/mm3 (4.4-11.0)
[2024-11-29] MEDS: Budesonide Respules 0.5 MG/2 ML AMPUL.NEB. INHALATION ×2 (06:35→19:21)
[2024-11-29 06:36] VITALS: PULSE 70; RESP 18; O2SAT 94
[2024-11-29 08:59] VITALS: BP 100/51; PULSE 67; RESP 16; TEMP 36.4; O2SAT 99
[2024-11-29] MEDS: Lidocaine 5% Patch 1 PATCH TOPICAL (09:19)
[2024-11-29] MEDS: Pantoprazole Sodium 40 MG in 0.9% Normal Saline (100mL MB+) 100 ML 300 MG IV ×2 (09:24→21:16)
--- NOTE | 2024-11-29 10:52 | CASEMGMT ---
Social Work SW spoke with the patient regarding being transported back to [facility]. SW informed her Medicaid should pay for the transport. MIKAELA Riojas
--- NOTE | 2024-11-29 10:59 | CASEMGMT ---
GEOFFREY CM in to discuss SPENCER form with patient. RN CM explained SPENCER form, patient voiced understanding. Pt signed form and filed in chart. Pt provided with a copy of signed SPENCER form. Patient had no further questions or concerns at this time.
--- NOTE | 2024-11-29 11:08 | PN.HOSP_ITS ---
Subjective Subjective Hemoglobin dropped to 7.9. She continued to have some blood and clots in her stool last evening Objective Data Objective Data Vital Signs: Vital Signs Temp Pulse Resp BP Pulse Ox O2 Del Method O2 Flow Rate 97.5 F L 67 16 100/51 L 99 Nasal Cannula 3 11/29/24 08:59 11/29/24 08:59 11/29/24 08:59 11/29/24 08:59 11/29/24 08:59 11/29/24 09:00 11/29/24 09:00 Oxygen Flow Rate (L/min) 3 Oxygen Delivery Method Nasal Cannula Weight: 131 lb 13.383 oz Body Mass Index (BMI) 24.0 Intake & Output: Intake and Output for Last 24 Hours 11/28/24 11/29/24 11/30/24 03:59 03:59 03:59 Intake Total 700 / 700 716.67 / 716.67 100 / 100 Balance 700 / 700 716.67 / 716.67 100 / 100 Lab / Micro Data 11/29/24 05:11 11/28/24 05:13 Labs: Laboratory Results - last 24 hr 11/28/24 12:03: Hgb 8.2 L, Hct 26.5 L 11/29/24 05:11: WBC 7.0, RBC 2.55 L, Hgb 7.9 L, Hct 25.7 L, MCV 100.8 H, MCH 31.0, MCHC 30.7 L, RDW Std Deviation 46.3 H, RDW Coeff of Francisca 12.5, Plt Count 179, MPV 9.5, Immature Gran % (Auto) 0.300, Neut % (Auto) 59.4, Lymph % (Auto) 20.4, Daniels % (Auto) 9.7, Eos % (Auto) 9.3 H, Baso % (Auto) 0.9, Absolute Neuts (auto) 4.2, Absolute Lymphs (auto) 1.43, Nucleated RBC % 0 Physical Exam Narrative General: Alert, Oriented x3, Cooperative, No apparent distress HEENT: Atraumatic, PERRLA, EOMI, Normocephalic Oral: Moist Mucosa Neck: Supple, No JVD Lungs: Diminished, Normal air movement, No rhonchi, No wheeze, No rales Cardiovascular: Regular rate, Regular Rhythm, Normal S1, Normal S2, No murmurs Abdomen: Soft, Non Tender, Non-Distended, No Hepato-splenomegaly Extremities: No edema, Capillary Refill Less than 3 Seconds Skin: No rashes, No breakdown Musculoskeletal: No Tenderness to Palpation of Joints or Extremities Neurological: No focal neurological deficits, moves all extremities Psych/Mental Status: Normal Affect, Appropriate Assessment & Plan Assessment/Plan (1) Bright red blood per rectum: PLAN: Plan 1. Bright red blood per rectum with positive orthostatic vital signs/GERD ?Hemoglobin on morning labs yesterday was 7.9, afternoon was 8.2 but this morning at 7.9 again ? Will plan for colonoscopy tomorrow and consult GI and proceed with prep today ? Continue with PPI 2. Essential HTN ? Continue with clonidine and verapamil ? Will monitor and make adjustments as necessary ? Will hold her metoprolol 3. History of pulmonary fibrosis with chronic hypoxic respiratory failure ? She is on her baseline oxygen requirement of 3 L nasal cannula ? She can resume her home pirfenidone on discharge ? Continue with her home inhalers 4. Hypothyroidism ? Stable ? Continue with Synthroid 5. Anxiety/depression/migraines ? Stable ? Continue with her home medications DVT: SCDs Charges/Coding Visit Charges Inpatient E&M: 96377 Subs Hosp L2
[2024-11-29 14:03] VITALS: BP 110/57; PULSE 68; RESP 16; TEMP 36.6; O2SAT 98
[2024-11-29] MEDS: Polyethylene Glycol 3350 BOWEL PREP PO (16:41)
[2024-11-29 19:21] VITALS: PULSE 77; RESP 18; O2SAT 99
[2024-11-29 20:07] VITALS: BMI 24.0
[2024-11-29 20:11] VITALS: BP 153/71; PULSE 73; RESP 17; TEMP 36.6; O2SAT 100
[2024-11-29] MEDS: Senna/Docusate Sodium 1 Tablet 2 TABLET PO (21:16)
[2024-11-29] MEDS: 0.9% Saline Lock 10 ML Syringe IV (21:16)
[2024-11-30] VITALS (12 sets, daily range): BP systolic 104–150; BP diastolic 56–84; PULSE 69–85; RESP 14–18; TEMP 36.3–36.8; O2SAT 93–100; BMI 24.3
[2024-11-30 04:17] LABS: Prothrombin Time (Protime)PT. 13.2 SECONDS (11.7-14.9)
[2024-11-30 04:18] LABS: Partial Thromboplast Time 26.3 Seconds (24.1-36.2)
[2024-11-30 04:27] LABS: Hematocrit 26.0 % (37-47); Hemoglobin 8.1 g/dL (12.0-15.0); Immature Granulocytes Count 0.020 X10^3/uL (0.0-0.0); Mean Corp Hgb Conc 31.2 g/dL (32-36); Mean Corpuscular Volume 98.9 fL (81-99); Mean Platelet Vol. 9.4 fl (6.2-12.0); NRBC Flagged by Analyzer 0 % (0-5); Platelet Count 191 K/mm3 (150-450); RBC Distribution Width CV 12.5 % (11.6-14.6); RBC Distribution Width SD 45.5 fl (35.1-43.9); Red Blood Count 2.63 M/mm3 (4.2-5.4); White Blood Count 8.6 K/mm3 (4.4-11.0)
[2024-11-30 04:37] LABS: Anion Gap 8 (5-15); BUN 11 mg/dL (4-19); BUN/Creat Ratio 22.3 RATIO (10-20); Calcium,Total 8.9 mg/dL (7.6-11.0); Carbon Dioxide 30.8 mmol/L (21.0-32.0); Chloride 100 mmol/L (98-108); Estimated Creatinine Clearance 42.14 ml/min (50-250); Glucose 90 mg/dL (70-99); Potassium 4.0 mmol/L (3.3-5.1)
--- NOTE | 2024-11-30 05:55 | EKG12_ITS ---
Test Reason : AM EKG Blood Pressure : */* mmHG Vent. Rate : 64 BPM Atrial Rate : 64 BPM P-R Int : 164 ms QRS Dur : 88 ms QT Int : 428 ms P-R-T Axes : 45 -10 19 degrees QTcB Int : 441 ms Normal sinus rhythm Cannot rule out Anterior infarct (cited on or before 09-Jan-2023) Abnormal ECG When compared with ECG of 09-Jan-2023 15:00, Premature ventricular complexes are no longer Present Confirmed by MANDEEP BAILEY, THELMA ([id number]), manager editorial JACQUI JUDD ([id number]) on 12/01/2024 7:18:52 AM Referred By: Confirmed By: THELMA KAUFMAN MD
[2024-11-30] MEDS: Budesonide Respules 0.5 MG/2 ML AMPUL.NEB. INHALATION (07:22)
--- NOTE | 2024-11-30 07:45 | COLBX_PTH ---
PATIENT: LIZ NEGRON LOC: [facility] U#:[id number] AGE/SX: 84/F ROOM: [facility] RE11/29/[address]: Dr. Weston Choudhary MD : [id number] BED: 1 DIS: 12/01/2024 SPEC #: [id number] RECD: 11/30/24 10:57 STATUS: SEJAL REAdi #: [id number] CLARENCE: 11/30/24 07:[address]: Eric Salazar DEPT: SURGICAL PATHOLOGY RECD BY: Vijay Rubio ENTERED: 11/30/24 15:03 SP TYPE: COLON BX OTHR DR: MD Dr. Сергей Fong MD Dr. Nicholas F Kotsonis, MD Dr. Prakash Chand, MD Dr. Paige Pierce, MD Heather Evans, INSURANCE UNDERWRITING ASSISTANT-C Brinda Wright, INSURANCE UNDERWRITING ASSISTANT-C JADA Wood Tissues: A - SPLENIC FLEXURE B - COLON BIOPSY C - Ascending colon D - Cecum, NOS Procedures: Surgery Specimen Level IV HEADER OPERATION: Colonoscopy with polypectomy PRE-OP DIAGNOSIS: Bright red blood per rectum, anemia TISSUE SUBMITTED: A- Splenic flexure polyp, B- Hepatic flexure polyp, C- Ascending colon polyp, D- Cecal polyp MICROSCOPIC DIAGNOSIS A. Splenic flexure, polyp, biopsy: * Tubular adenoma. B. Hepatic flexure, polyp, biopsy: * Tubular adenoma. C. Ascending colon, polyp, biopsy: * Tubular adenoma. D. Cecum, polyp, biopsy: * Tubulovillous adenoma. * The assessable surgical margin appears free of dysplasia. MICROSCOPIC DESCRIPTION Slides are reviewed. GROSS DESCRIPTION A. Received in fixative is one container labeled with the patient's name and designated Splenic flexure polyp. The specimen consists of one irregular fragment of fontenot tissue that measures 0.6 cm, admixed with flocculent material. The specimen is totally submitted in one cassette. B. Received in fixative is one container labeled with the patient's name and designated Hepatic flexure polyp. The specimen consists of one irregular fragment of fontenot tissue that measures 0.4 cm. The specimen is totally submitted in one cassette. C. Received in fixative is one container labeled with the patient's name and designated Ascending colon polyp. The specimen consists of two irregular fragments of fontenot tissue that measure 0.3 and 0.5 cm, admixed with flocculent material. The specimen is totally submitted in one cassette. D. Received in fixative is one container labeled with the patient's name and designated Cecal polyp. The specimen consists of a 0.8 x 0.6 x 0.6 cm pink-red granular polyp. The resection margin is inked green. The polyp is serially sectioned. Entirely submitted in 1 cassette. PA 11/30/2024 CPT:28546t0
--- NOTE | 2024-11-30 07:46 | EX.PCM.CON.G ---
HPI Consult Data Date of Consult: 11/30/24 HPI Narrative Reason for Consultation: GI bleed HPI Narrative: LIZ NEGRON, is a 84 F who presented to the ED with lower GI bleeding. She has a past medical history of pulmonary fibrosis on 3 L of O2 chronically, hypertension, hypothyroidism, GERD, anxiety who presented [facility] ED 11/27/2024 with rectal bleeding. She admits to recently constipated and passed hard stool and then this morning noticed she had bright red blood per rectum. She had to wipe multiple times but the bleeding lessened however due to the blood detention wanted to send her to the ED however she wanted to wait but then she had another bowel movement with bright red blood mixed in. Reported feeling little lightheaded but no other acute complaints. In the ED temp 97.8, heart rate 72, blood pressure 135/67, respiratory 18 pulse ox 100% on 3 L nasal cannula. She did have positive orthostats with blood pressure 131/63 down to 109/57 on standing. CBC with white count 6.5 and hemoglobin 8.5 similar to CBC in August of this year BMP with a sodium of 132, bicarb 33, BUN of 12 and a creatinine of 0.82. Patient had no further episodes in the ED but she did have anoscopy which showed large clot with some amount of blood above the scope. I was asked to see her for lower GI bleeding [facility], [facility] Medical History Migraine Psoriasis Depression Osteoporosis Primary insomnia Hyperlipidemia Hypothyroidism Obstructive sleep apnea (adult) (pediatric) Mild persistent asthma, uncomplicated Unspecified abnormalities of gait and mobility Difficulty in walking, not elsewhere classified Muscle wasting and atrophy, not elsewhere classified, left lower leg Muscle wasting and atrophy, not elsewhere classified, right lower leg Chronic respiratory failure with hypoxia Seasonal allergies Anemia High cholesterol GERD (gastroesophageal reflux disease) HTN (hypertension) Anxiety Pulmonary fibrosis Home Medications ?Medication ?Instructions ?Recorded ?Last Taken ?Type acetaminophen 500 mg tablet 500 mg PO Q6H PRN fever or pain 11/03/24 Unknown History (Tylenol Extra Strength) albuterol sulfate 90 mcg/actuation 2 puff inhalation Q6H PRN 11/03/24 Unknown History aerosol inhaler (Ventolin HFA) shortness of breath or wheezing famotidine 20 mg tablet 20 mg PO QDAY 11/03/24 11/27/24 History fexofenadine 180 mg tablet 180 mg PO QDAY PRN allergy symptoms 11/03/24 Unknown History gabapentin 100 mg capsule 100 mg PO TID 11/03/24 11/27/24 06:00 History guaifenesin 600 mg tablet, 600 mg PO DAILY 11/03/24 11/27/24 History extended release 12 hr (Mucinex) levothyroxine 75 mcg tablet 37.5 mcg PO QDAY 11/03/24 11/27/24 History (Levo-T) magnesium hydroxide 400 mg/5 mL 30 ml PO ONCE PRN stomach upset 11/03/24 Unknown History oral suspension (Milk of Magnesia) nortriptyline 50 mg capsule 100 mg PO QHS 11/03/24 11/26/24 History ondansetron 4 mg disintegrating 4 mg PO Q6H PRN nausea and vomiting 11/03/24 Unknown History tablet pantoprazole 40 mg tablet,delayed 40 mg PO Q12H 11/03/24 11/27/24 10:00 History release pravastatin 40 mg tablet 40 mg PO QDAY 11/03/24 11/26/24 History psyllium husk 2.6 gram/4.1 gram 1 tbsp PO ONCE 11/03/24 11/27/24 History oral powder sennosides 8.6 mg tablet (senna) 8.6 mg PO QDAY 11/03/24 11/27/24 History sumatriptan succinate 100 mg tablet See Rx Instructions PO .COMPLEX 11/03/24 11/26/24 History verapamil 240 mg 24 hr 240 mg PO BID 11/03/24 11/27/24 History capsule,extended release alprazolam 1 mg tablet 1 mg PO TID anxiety 30 days #90 11/25/24 11/27/24 06:00 Rx tabs clonidine 0.2 mg/24 hr weekly 1 patch topical QWEEK 11/27/24 Unknown History transdermal patch gabapentin 100 mg capsule 200 mg PO QHS 11/27/24 11/26/24 History hydralazine 25 mg tablet 25 mg PO Q8H PRN sbp>150 11/27/24 Unknown History lidocaine HCl 4 % topical cream 1 applic topical .COMPLEX pain 11/27/24 11/26/24 History (Aspercreme (lidocaine HCl)) metoprolol succinate 25 mg 25 mg PO DAILY 11/27/24 11/27/24 History tablet,extended release 24 hr mometasone 200 mcg/actuation HFA 2 puff inhalation BID 11/27/24 11/27/24 History aerosol inhaler (Asmanex HFA) natural ears 1 gtt EACH EAR QHS PRN ear pain 11/27/24 Unknown History pirfenidone 801 mg tablet 801 mg PO TID 11/27/24 11/27/24 06:00 History OXYGEN - Supplemental ([facility] 11/28/24 Unknown History INFORMATIONAL USE ONLY) Allergy/AdvReac Type Severity Reaction Status Date / Time amoxicillin Allergy Mild PT UNSURE Verified 11/27/24 15:00 OF REACTION aspirin Allergy Mild PALPITATION Verified 11/27/24 15:00 S ibuprofen Allergy Mild Swelling Verified 11/27/24 15:00 montelukast Allergy Mild Rash Verified 11/27/24 15:00 rofecoxib Allergy Mild Itching Verified 11/27/24 15:00 Sulfa (Sulfonamide Allergy Mild Rash Verified 11/27/24 15:00 Antibiotics) doxycycline AdvReac Mild GI UPSET Verified 11/27/24 15:00 lisinopril AdvReac Mild GI UPSET Verified 11/27/24 15:00 sertraline AdvReac Mild Diarrhea Verified 11/27/24 15:00 Social History Smoking Status: Never smoker ROS Constitutional Constitutional: Denies fatigue, fever(s), poor appetite, weight gain or weight loss Gastrointestinal Gastrointestinal: Denies belching, bloating, change in bowel habits, change in stool character, chewing difficulty, coffee ground emesis, constipation, cramping, diarrhea, dyspepsia, dysphagia, early satiety, excessive flatus, fecal incontinence, heartburn, hematemesis, hematochezia, hemorrhoids, loose stools, melena, nausea, odynophagia, rectal bleeding, tenesmus, vomiting or weight changes Physical Exam Const alert, oriented x3, no apparent distress and healthy appearing General Appearance: cooperative GI normal to inspection, nondistended, normoactive bowel sounds, soft to palpation, non-tender and non-distended Percussion: normal to percussion Rectal Exam: deferred Lab / Micro Data 11/30/24 03:55 11/30/24 03:55 Labs: Laboratory Results - last 24 hr 11/30/24 03:55: WBC 8.6, RBC 2.63 L, Hgb 8.1 L, Hct 26.0 L, MCV 98.9, MCH 30.8, MCHC 31.2 L, RDW Std Deviation 45.5 H, RDW Coeff of Francisca 12.5, Plt Count 191, MPV 9.4, Immature Gran % (Auto) 0.200, Neut % (Auto) 67.9, Lymph % (Auto) 15.3 L, [place] % (Auto) 8.6, Eos % (Auto) 7.5 H, Baso % (Auto) 0.5, Absolute Neuts (auto) 5.8, Absolute Lymphs (auto) 1.31, Nucleated RBC % 0, PT 13.2, INR 1.0, APTT 26.3, Sodium 139, Potassium 4.0, Chloride 100, Carbon Dioxide 30.8, Anion Gap 8, BUN 11, Creatinine 0.48 L, Estim Creat Clear Calc 42.14 L, Est GFR (MDRD) Non-Af 94, BUN/Creatinine Ratio 22.3 H, Glucose 90, Calcium 8.9, TSH 2.440 Assessment & Plan Assessment/Plan (1) Bright red blood per rectum: (2) Anemia: PLAN: Assessment Lower GI Bleeding:?Acute, painless bleeding in an elderly patient. Pulmonary Fibrosis:?Chronic respiratory condition requiring oxygen. Anemia:?Chronic, likely exacerbated by acute blood loss. Differential Diagnosis for Painless Lower GI Bleeding in the Elderly: Diverticulosis:?Most common cause of painless lower GI bleeding, especially in the elderly. Bleeding is typically abrupt and can be substantial. Angiodysplasia (Vascular Ectasias):?Degenerative vascular lesions that are also common in the elderly and a frequent cause of painless, recurrent bleeding. Colonic Neoplasm:?Colon cancer or polyps can cause painless, intermittent bleeding, although it's more commonly occult. Given the family history, this remains a significant concern. Hemorrhoids:?Common cause of mild bleeding, but less likely to cause the volume of bleeding described. Other causes:?Less common etiologies include ischemic colitis (usually has pain), post-polypectomy bleeding, and ulcers. Plan Disposition:?Given the patient's age, comorbidities, and potentially significant blood loss (indicated by maroon stools and clots), she required admission to the hospital for further evaluation and management. Diagnostics: Colonoscopy:?Urgent colonoscopy is the preferred initial diagnostic and therapeutic tool for a hemodynamically stable patient with lower GI bleeding. CTA (Computed Tomography Angiography):?May be considered if bleeding is brisk and ongoing, to localize the bleeding source. Upper Endoscopy:?If colonoscopy is negative, an upper endoscopy should be performed to rule out a brisk upper GI bleed presenting as lower GI bleeding. Inpatient versus outpatient Charges/Coding Visit Charges Inpatient E&M: 75725 Init Hosp L3
--- NOTE | 2024-11-30 07:50 | PCM.PRE.AN2 ---
ASA Classification* ASA Classification ASA Classification: 4 Assessment & Plan Anesthesia* Anesthesia Assessment Anesthesia Assessment: Discussed sedation and/or anesthesia options, risks, benefits, and alternatives with patient/parents/legal guardian/POA. Questions invited. The patient/parents/legal guardian/POA seems to understand and agrees to proceed with anesthesia plan. Reviewed the physical assessment, medical history, allergy history and patient home medications list prior to surgery/procedure/anesthetic and documented any changes. Performed airway and anesthesia risk assessments. Procedural Plan Add'l anesthesia plan details: Active GI bleed Anesthesia Type Anesthesia Type: MAC History Source History Obtained from:: Patient and Chart Anesthesia Focused Assessment* Temperature: 97.7 F Pulse Rate: 69 Blood Pressure: 132/65 Respiratory Rate: 16 Pulse Ox: 93 Oxygen Delivery Method: Nasal Cannula Oxygen Flow Rate (L/min): 3 Airway Assessment Mouth opens: >3 cm Mallampati Score: II Labs Anesthesia Preop lab: CBC WBC, (4.4-11.0) 8.6 K/mm3 Today, 03:55 RBC, (4.2-5.4) 2.63 M/mm3 L Today, 03:55 Hgb, (12.0-15.0) 8.1 g/dL L Today, 03:55 Hct, (37-47) 26.0 % L Today, 03:55 Plt Count, (150-450) 191 K/mm3 Today, 03:55 CHEMISTRY Potassium, (3.3-5.1) 4.0 mmol/L Today, 03:55 Sodium, (133-145) 139 mmol/L Today, 03:55 BUN, (4-19) 11 mg/dL Today, 03:55 Creatinine, (0.70-1.20) 0.48 mg/dL L Today, 03:55 Glucose, (70-99) 90 mg/dL Today, 03:55 TSH, (0.300-4.200) 2.440 uIU/mL Today, 03:55 COAG PT, (11.7-14.9) 13.2 SECONDS Today, 03:55 Pre-Assessment Diagnosis/Proposed Procedure Planned Operative Procedure(s): Colonoscopy Anesthesia History Anesthesia History - epidemiology intern: Anesthesia History - epidemiology intern Hx Hospitalization Any Problems With Anesthesia No 11/29/24 20:07 Cholinesterase deficiency No 11/29/24 20:07 You/Your Family Experience No 11/29/24 20:07 fever (hyperthermia) with Relationship Recent Exposure to Contagious No 11/29/24 20:07 Disease Does patient have nerve No 11/29/24 20:07 stimulator Patient instructed to have No 11/29/24 20:07 device shut off --Does patient have Pacemaker No 11/29/24 20:07 or ICD? When Was Last Pacemaker Check QUESTION #4 FULL TEXT: You/Your Family Experience fever (hyperthermia) with Anesthesia Last Oral Intake Last Oral intake: Last Oral Intake NPO since 00:00 11/29/24 20:07 Meds taken in AM with sips of Yes 11/29/24 20:07 water? Meds patient instructed to Tylenol 11/29/24 20:07 take am of surgery PONV PONV - epidemiology intern: PONV - epidemiology intern Female HX of Motion Sickness HX of N/V After Surgery Non-Smoker Duration of Surgery greater than 60 minutes Number of Risk Factors PONV Score Height & Weight Height & Weight: Anesthesia: Height & Weight Height 5 ft 2 in 11/29/24 20:07 Weight: 59.8 kg 11/29/24 20:07 Body Mass Index (BMI) 24.0 11/29/24 20:07 Respiratory Assessment Respiratory Assessment - epidemiology intern: Respiratory Tract Infection Hx - epidemiology intern Hx Respiratory Tract Infection No 11/29/24 20:07 STOP Sleep Apnea STOP Sleep Apnea - epidemiology intern: STOP Sleep Apnea - epidemiology intern Hx Hypertension Yes 11/27/24 17:57 Hx Sleep Apnea Yes 11/27/24 17:57 CPAP Yes: does not use 11/27/24 17:57 BIPAP No 11/27/24 17:57 Do you snore loudly (louder than talking or can be heard Do you often feel tired/ fatigued/ sleepy during daytime? Has anyone observed you stop breathing during sleep? STOP Results Positive 11/27/24 17:57 QUESTION #5 FULL TEXT : Do you snore loudly (louder than talking or can be heard through closed doors)? 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 Specify any problems Hx of Preganancy in last 3 No 11/27/24 17:57 Months Nurse Filling Out Transfusion ZOË 11/27/24 17:57 & Questions: Date: 11/27/24 11/27/24 17:57 Time: 18:23 11/27/24 17:57 Patient unable to answer at this time (ie. confused, unrespo /Reproduction History /Reproductive History - epidemiology intern: /Reproductive Hx- epidemiology intern Hx Now No 11/29/24 20:07 Gestational Age (in weeks): EDC: Hx Hx Para Hx Section SAB No 11/29/24 20:07 Active Medications Active Medications: Current Medications Generic Name Dose Route Start Last Admin Trade Name Freq PRN Reason Stop Dose Admin Acetaminophen 650 mg 11/27/24 17:57 11/30/24 05:06 Acetaminophen 325 Mg Tablet PO 650 mg Q6H PRN PRN Administration Pain 1-10 Or Fever >100.7 Albuterol Sulfate 2.5 mg 11/27/24 17:57 11/28/24 16:29 Albuterol 2.5 Mg/3 Ml Vial.Neb. INHALATION 2.5 mg Q2H PRN PRN Administration SOB &/OR WHEEZING Alprazolam 1 mg 11/27/24 22:00 11/30/24 05:56 Alprazolam 0.5 Mg Tablet PO Not Given TID BARBRA Budesonide 0.5 mg 11/27/24 18:15 11/30/24 07:22 Budesonide Respules 0.5 Mg/2 Ml Ampul.Neb. INHALATION 0.5 mg Q12H.RT BARBRA Administration Clonidine HCl 0.2 mg 11/30/24 10:00 Clonidine Hcl 0.2 Mg Patch TD QWEEK BARBRA Famotidine 20 mg 11/28/24 10:00 11/29/24 09:23 Famotidine 20 Mg Tablet PO 20 mg DAILY BARBRA Administration Gabapentin 100 mg 11/28/24 08:00 11/29/24 17:20 Gabapentin 100 Mg Capsule PO 100 mg 0800,1200,1800 BARBRA Administration Gabapentin 200 mg 11/27/24 22:00 11/29/24 22:42 Gabapentin 100 Mg Capsule PO 200 mg QHS BARBRA Administration Guaifenesin 600 mg 11/28/24 10:00 11/29/24 09:19 Guaifenesin 600 Mg Tablet PO 600 mg DAILY BARBRA Administration Pantoprazole Sodium 40 mg/ 100 mls @ 300 mls/hr 11/27/24 22:00 11/29/24 21:40 Sodium Chloride IV Infused Q12 BARBRA Infusion Sodium Chloride 250 mls @ 15 mls/hr 11/27/24 17:58 IV .[id number] PRN Saline Flush Levothyroxine Sodium 37.5 mcg 11/28/24 06:00 11/30/24 05:56 Levothyroxine 75 Mcg Tablet PO Not Given DAILY@0600 [facility] Lidocaine 1 patch 11/28/24 13:15 11/29/24 09:19 Lidocaine 5% Patch TOPICAL 1 patch DAILY BARBRA Administration Melatonin 10 mg 11/27/24 17:57 11/27/24 21:07 Melatonin 10 Mg Tablet PO 10 mg QHS PRN PRN Administration INSOMNIA Nortriptyline HCl 100 mg 11/27/24 22:00 11/29/24 22:43 Nortriptyline 25 Mg Capsule PO 100 mg QHS BARBRA Administration Ondansetron HCl 4 mg 11/27/24 17:57 11/28/24 20:08 Ondansetron 4 Mg/2 Ml Vial IV 4 mg Q8H PRN PRN Administration NAUSEA/VOMITING Pravastatin Sodium 40 mg 11/28/24 10:00 11/29/24 09:19 Pravastatin 40 Mg Tablet PO 40 mg DAILY BARBRA Administration Senna/Docusate Sodium 2 tablet 11/27/24 22:00 11/29/24 21:16 Senna/Docusate Sodium 1 Tablet PO 2 tablet BID BARBRA Administration Sodium Chloride 10 - 40 ml 11/27/24 17:58 11/29/24 21:16 0.9% Saline Lock 10 Ml Syringe IV 10 ml UD PRN Administration SALINE FLUSH Verapamil HCl 240 mg 11/27/24 22:00 11/29/24 22:42 Verapamil Sr 240 Mg Tablet PO 240 mg BID BARBRA Administration PFSH Medical History Migraine Psoriasis Depression Osteoporosis Primary insomnia Hyperlipidemia Hypothyroidism Obstructive sleep apnea (adult) (pediatric) Mild persistent asthma, uncomplicated Unspecified abnormalities of gait and mobility Difficulty in walking, not elsewhere classified Muscle wasting and atrophy, not elsewhere classified, left lower leg Muscle wasting and atrophy, not elsewhere classified, right lower leg Chronic respiratory failure with hypoxia Seasonal allergies Anemia High cholesterol GERD (gastroesophageal reflux disease) HTN (hypertension) Anxiety Pulmonary fibrosis Home Medications ?Medication ?Instructions ?Recorded ?Last Taken ?Type acetaminophen 500 mg tablet 500 mg PO Q6H PRN fever or pain 11/03/24 Unknown History (Tylenol Extra Strength) albuterol sulfate 90 mcg/actuation 2 puff inhalation Q6H PRN 11/03/24 Unknown History aerosol inhaler (Ventolin HFA) shortness of breath or wheezing famotidine 20 mg tablet 20 mg PO QDAY 11/03/24 11/27/24 History fexofenadine 180 mg tablet 180 mg PO QDAY PRN allergy symptoms 11/03/24 Unknown History gabapentin 100 mg capsule 100 mg PO TID 11/03/24 11/27/24 06:00 History guaifenesin 600 mg tablet, 600 mg PO DAILY 11/03/24 11/27/24 History extended release 12 hr (Mucinex) levothyroxine 75 mcg tablet 37.5 mcg PO QDAY 11/03/24 11/27/24 History (Levo-T) magnesium hydroxide 400 mg/5 mL 30 ml PO ONCE PRN stomach upset 11/03/24 Unknown History oral suspension (Milk of Magnesia) nortriptyline 50 mg capsule 100 mg PO QHS 11/03/24 11/26/24 History ondansetron 4 mg disintegrating 4 mg PO Q6H PRN nausea and vomiting 11/03/24 Unknown History tablet pantoprazole 40 mg tablet,delayed 40 mg PO Q12H 11/03/24 11/27/24 10:00 History release pravastatin 40 mg tablet 40 mg PO QDAY 11/03/24 11/26/24 History psyllium husk 2.6 gram/4.1 gram 1 tbsp PO ONCE 11/03/24 11/27/24 History oral powder sennosides 8.6 mg tablet (senna) 8.6 mg PO QDAY 11/03/24 11/27/24 History sumatriptan succinate 100 mg tablet See Rx Instructions PO .COMPLEX 11/03/24 11/26/24 History verapamil 240 mg 24 hr 240 mg PO BID 11/03/24 11/27/24 History capsule,extended release alprazolam 1 mg tablet 1 mg PO TID anxiety 30 days #90 11/25/24 11/27/24 06:00 Rx tabs clonidine 0.2 mg/24 hr weekly 1 patch topical QWEEK 11/27/24 Unknown History transdermal patch gabapentin 100 mg capsule 200 mg PO QHS 11/27/24 11/26/24 History hydralazine 25 mg tablet 25 mg PO Q8H PRN sbp>150 11/27/24 Unknown History lidocaine HCl 4 % topical cream 1 applic topical .COMPLEX pain 11/27/24 11/26/24 History (Aspercreme (lidocaine HCl)) metoprolol succinate 25 mg 25 mg PO DAILY 11/27/24 11/27/24 History tablet,extended release 24 hr mometasone 200 mcg/actuation HFA 2 puff inhalation BID 11/27/24 11/27/24 History aerosol inhaler (Asmanex HFA) natural ears 1 gtt EACH EAR QHS PRN ear pain 11/27/24 Unknown History pirfenidone 801 mg tablet 801 mg PO TID 11/27/24 11/27/24 06:00 History OXYGEN - Supplemental ([facility] 11/28/24 Unknown History INFORMATIONAL USE ONLY) Allergy/AdvReac Type Severity Reaction Status Date / Time amoxicillin Allergy Mild PT UNSURE Verified 11/27/24 15:00 OF REACTION aspirin Allergy Mild PALPITATION Verified 11/27/24 15:00 S ibuprofen Allergy Mild Swelling Verified 11/27/24 15:00 montelukast Allergy Mild Rash Verified 11/27/24 15:00 rofecoxib Allergy Mild Itching Verified 11/27/24 15:00 Sulfa (Sulfonamide Allergy Mild Rash Verified 11/27/24 15:00 Antibiotics) doxycycline AdvReac Mild GI UPSET Verified 11/27/24 15:00 lisinopril AdvReac Mild GI UPSET Verified 11/27/24 15:00 sertraline AdvReac Mild Diarrhea Verified 11/27/24 15:00 Social History Smoking Status: Never smoker Review of Systems (Anesthesia) ROS Narrative System reviewed and no additional complaints, except as documented. Physical Exam Const alert and oriented x3 HEENT Teeth and Gingiva: dentures and poor dentition Resp normal respiratory effort and normal air movement Auscultation: clear to auscultation bilaterally Cardio regular rate and regular rhythm Back/Spine normal ROM Neuro oriented x3
[2024-11-30] MEDS: Lactated Ringers 1,000 ML 15 ML IV (08:05)
--- NOTE | 2024-11-30 08:48 | PCM.POST.ANE ---
Anesthesia: Postop Eval I Current Vital Signs Temperature: 98.3 F Pulse Rate: 83 Blood Pressure: 120/56 Respiratory Rate: 16 Pulse Ox: 99 Oxygen Delivery Method: Room Air Assessment Airway patent: Yes Spontaneous unlabored respirations: Yes Mental status: Awake and Calm nausea: No Vomiting: No Anesthesia Complication: No Fluid Hydration Crystalloid volume administer (ml): 500 Total IV fluid infused: 500 Progress Note Anesthesia document: Postop Eval 1 completed: Yes
--- NOTE | 2024-11-30 08:53 | OP.COLON_ITS ---
Patient Name: Merna Hamilton Procedure Date: 11/30/2024 7:51 AM Date of : 1940 Age: 84 Procedure: Colonoscopy Indications: Hematochezia, Iron deficiency anemia Providers: Eric Salazar DO Medicines: Monitored Anesthesia Care Patient Profile: This is an 84 year old female. Refer to note in patient chart for documentation of history and physical. Last Colonoscopy: several years ago. Complications: No immediate complications. Procedure: Pre-Anesthesia Assessment: - Prior to the procedure, a History and Physical was performed, and patient medications and allergies were reviewed. The patient is competent. The risks and benefits of the procedure and the sedation options and risks were discussed with the patient. All questions were answered and informed consent was obtained. Patient identification and proposed procedure were verified by the physician in the pre-procedure area. Mental Status Examination: alert and oriented. Airway Examination: normal oropharyngeal airway and neck mobility. Respiratory Examination: clear to auscultation. CV Examination: normal. Prophylactic Antibiotics: The patient does not require prophylactic antibiotics. Prior Anticoagulants: The patient has taken no anticoagulant or antiplatelet agents except for NSAID medication. ASA Grade Assessment: II - A patient with mild systemic disease. After reviewing the risks and benefits, the patient was deemed in satisfactory condition to undergo the procedure. The anesthesia plan was to use monitored anesthesia care (MAC). Immediately prior to administration of medications, the patient was re-assessed for adequacy to receive sedatives. The heart rate, respiratory rate, oxygen saturations, blood pressure, adequacy of pulmonary ventilation, and response to care were monitored throughout the procedure. The physical status of the patient was re-assessed after the procedure. After I obtained informed consent, the scope was passed under direct vision. Throughout the procedure, the patient's blood pressure, pulse, and oxygen saturations were monitored continuously. The Colonoscope was introduced through the anus and advanced to the cecum, identified by appendiceal orifice and ileocecal valve. The colonoscopy was performed without difficulty. The patient tolerated the procedure well. The quality of the bowel preparation was fair. The ileocecal valve, appendiceal orifice, and rectum were photographed. Scope In: 8:13:31 AM Scope Withdrawal Time 0 hours 5 minutes 12 seconds Scope Out: 8:34:21 AM Total Procedure Duration Time 0 hours 20 minutes 50 seconds Findings: The perianal and digital rectal examinations were normal. Scattered small and large-mouthed diverticula were found in the entire colon. Two medium-sized localized angiodysplastic lesions with bleeding were found in the rectum and in the cecum. Coagulation for hemostasis using monopolar probe was successful. Estimated blood loss was minimal. A large amount of stool was found in the rectum, in the recto-sigmoid colon, in the sigmoid colon, in the descending colon, at the splenic flexure and in the cecum. Four sessile polyps were found in the sigmoid colon, splenic flexure, hepatic flexure and cecum. The polyps were 15 mm in size. These polyps were removed with a hot snare. Resection and retrieval were complete. Verification of patient identification for the specimen was done. Estimated blood loss was minimal. A tattoo was seen in the transverse colon and at the hepatic flexure. The tattoo site appeared normal. Impression: - Preparation of the colon was fair. - Diverticulosis in the entire examined colon. - Two bleeding colonic angiodysplastic lesions. Treated with a monopolar probe. - Stool in the rectum, in the recto-sigmoid colon, in the sigmoid colon, in the descending colon, at the splenic flexure and in the cecum. - Four 15 mm polyps in the sigmoid colon, at the splenic flexure, at the hepatic flexure and in the cecum, removed with a hot snare. Resected and retrieved. - A tattoo was seen in the transverse colon and at the hepatic flexure. The tattoo site appeared normal. Recommendation: - [facility] care. - Resume regular diet. - Continue present medications. - Await pathology results. - Repeat colonoscopy because the bowel preparation was poor. Procedure Code(s): --- Professional --- 34941, 59, Colonoscopy, flexible; with control of bleeding, any method 63268, Colonoscopy, flexible; with removal of tumor(s), polyp(s), or other lesion(s) by snare technique CPT copyright 2021 [employer]. All rights reserved. The codes documented in this report are preliminary and upon bookkeepers supervisor review may be revised to meet current compliance requirements. Eric Salazar DO 11/30/2024 8:53:10 AM This report has been signed electronically. Number of Addenda: 0 Note Initiated On: 11/30/2024 7:51 AM
--- NOTE | 2024-11-30 08:53 | OP.PROVAT_ITS ---
11/30/2024 Сергей Verdugo Md Re : Colonoscopy procedure for Merna Hamilton Dear Lucina This procedure was performed on Saturday, November 30, 2024. My impressions and recommendations are as follows: Impressions : - Preparation of the colon was fair. - Diverticulosis in the entire examined colon. - Two bleeding colonic angiodysplastic lesions. Treated with a monopolar probe. - Stool in the rectum, in the recto-sigmoid colon, in the sigmoid colon, in the descending colon, at the splenic flexure and in the cecum. - Four 15 mm polyps in the sigmoid colon, at the splenic flexure, at the hepatic flexure and in the cecum, removed with a hot snare. Resected and retrieved. - A tattoo was seen in the transverse colon and at the hepatic flexure. The tattoo site appeared normal. Recommendations : - Return [facility] to [facility] care. - Resume regular diet. - Continue present medications. - Await pathology results. - Repeat colonoscopy because the bowel preparation was poor. My findings are described in the full procedure note, which is enclosed. If I can be of further assistance, please feel free to contact me at . Sincerely, Eric Salazar, 11/30/2024 8:53:10 AM This report has been signed electronically.
--- NOTE | 2024-11-30 08:53 | CASEMGMT ---
Discharge Planning Updates sent to [facility]. Sharona Peoples DC Planning Asst.
--- NOTE | 2024-11-30 09:25 | PCM.POSTANE2 ---
Anesthesia Postop Eval I Sum Postop Eval Completion status Anesthesia document: Postop Eval 1 completed: Yes Anesthesia Postop Eval I Summary Anesthesia Postop Eval I Summary: Anesthesia Postop Eval I: Assessment Summary Airway patent Yes 11/30/24 08:48 [email or web address] Spontaneous unlabored Yes 11/30/24 08:48 [email or web address] respirations Mental status Awake,Calm 11/30/24 08:48 [email or web address] nausea No 11/30/24 08:48 [email or web address] Vomiting No 11/30/24 08:48 [email or web address] Anesthesia Postop Eval I: Fluid Summary Crystalloid volume administer 500 11/30/24 08:48 [email or web address] (ml) Colloids volume administered ( ml) Blood Product volume administered (ml) Total IV fluid infused 500 11/30/24 08:48 [email or web address] Anesthesia Postop Eval I: Summary Notes Anesthesia Complication No 11/30/24 08:48 [email or web address] Anesthesia Complication Comment: Post-operative progress note Anesthesia: Postop Eval II Evaluation Mental status: Awake and Calm Pain Level: 0 nausea: No Vomiting: No Complications Anesthesia Complication: No
--- NOTE | 2024-11-30 10:34 | PN.HOSP_ITS ---
Reason for Visit Chief Complaint: Bright red blood per rectum Subjective Subjective Patient is an 84-year-old lady resident at [facility] who presented to the emergency department with rectal bleeding Objective Data Objective Data Vital Signs: Vital Signs Temp Pulse Resp BP Pulse Ox O2 Del Method O2 Flow Rate 97.3 F L 81 16 123/84 H 97 Nasal Cannula 3 11/30/24 08:50 11/30/24 08:50 11/30/24 08:50 11/30/24 08:50 11/30/24 08:50 11/30/24 08:50 11/30/24 08:50 Oxygen Flow Rate (L/min) 3 Oxygen Delivery Method Nasal Cannula Weight: 59.8 kg Body Mass Index (BMI) 24.3 Intake & Output: Intake and Output for Last 24 Hours 11/28/24 11/29/24 11/30/24 23:59 23:59 23:59 Intake Total 836.67 / 836.67 200 / 200 Output Total 3 / 3 Balance 836.67 / 836.67 200 / 200 -3 / -3 Lab / Micro Data 11/30/24 03:55 11/30/24 03:55 Labs: Laboratory Results - last 24 hr 11/30/24 03:55: WBC 8.6, RBC 2.63 L, Hgb 8.1 L, Hct 26.0 L, MCV 98.9, MCH 30.8, MCHC 31.2 L, RDW Std Deviation 45.5 H, RDW Coeff of Francisca 12.5, Plt Count 191, MPV 9.4, Immature Gran % (Auto) 0.200, Neut % (Auto) 67.9, Lymph % (Auto) 15.3 L, [place] % (Auto) 8.6, Eos % (Auto) 7.5 H, Baso % (Auto) 0.5, Absolute Neuts (auto) 5.8, Absolute Lymphs (auto) 1.31, Nucleated RBC % 0, PT 13.2, INR 1.0, APTT 26.3, Sodium 139, Potassium 4.0, Chloride 100, Carbon Dioxide 30.8, Anion Gap 8, BUN 11, Creatinine 0.48 L, Estim Creat Clear Calc 42.14 L, Est GFR (MDRD) Non-Af 94, BUN/Creatinine Ratio 22.3 H, Glucose 90, Calcium 8.9, TSH 2.440 Physical Exam Narrative General: Alert, Oriented x3, Cooperative, No apparent distress HEENT: Atraumatic, PERRLA, EOMI, Normocephalic Oral: Moist Mucosa Neck: Supple, No JVD Lungs: Diminished, Normal air movement, No rhonchi, No wheeze, No rales Cardiovascular: Regular rate, Regular Rhythm, Normal S1, Normal S2, No murmurs Abdomen: Soft, Non Tender, Non-Distended, No Hepato-splenomegaly Extremities: No edema, Capillary Refill Less than 3 Seconds Skin: No rashes, No breakdown Musculoskeletal: No Tenderness to Palpation of Joints or Extremities Neurological: No focal neurological deficits, moves all extremities Psych/Mental Status: Normal Affect, Appropriate Assessment & Plan Assessment/Plan (1) Bright red blood per rectum: PLAN: Plan Patient is an 84-year-old lady resident at [facility] who presented to the emergency department with rectal bleeding 1. Hematochezia ? Patient hemoglobin on admission was 7.9. Was admitted to monitored bed consult placed to Dr. Salazar with GI patient underwent colonoscopy on 11/30/2024 findings and recommendations as below Findings - Preparation of the colon was fair. - Diverticulosis in the entire examined colon. - Two bleeding colonic angiodysplastic lesions. Treated with a monopolar probe. - Stool in the rectum, in the recto-sigmoid colon, in the sigmoid colon, in the descending colon, at the splenic flexure and in the cecum. - Four 15 mm polyps in the sigmoid colon, at the splenic flexure, at the hepatic flexure and in the cecum, removed with a hot snare. Resected and retrieved. - A tattoo was seen in the transverse colon and at the hepatic flexure. The tattoo site appeared normal. Recommendations : - Await pathology results. - Repeat colonoscopy because the bowel preparation was poor. 2. Anemia ? Secondary to acute blood loss anemia monitoring H&H and transfuse if patient becomes symptomatic or hemoglobin falls below 7 3. Hypothyroidism ? Patient is on levothyroxine home dose continued 4. Allergic rhinitis ? Patient is on fexofenadine 5. Dyslipidemia ?Patient is on statin therapy, continued at home dose 6. Chronic hypoxic respiratory failure Secondary to pulmonary fibrosis patient is on home oxygen 3 L at rest 7. Pulmonary fibrosis ? Patient is on pirfenidone held on admission plan is to resume on discharge 8. GERD ? Patient on PPI 9. Anxiety disorder ? Patient is on alprazolam 10. Hypertension ? Blood pressure controlled, home medications continued with dose adjustment as needed 11. DVT prophylaxis ? SCDs only given patient presentation Time spent in the patient's overall evaluation,decision-making process, review of diagnostic data, adjustment of management, discussion with other providers, nursing nursing and ancillary staff involved in patient's care documentation, 50 Minutes Charges/Coding Visit Charges Inpatient E&M: 53908 [facility] Hosp L3
[2024-11-30] MEDS: Senna/Docusate Sodium 1 Tablet 2 TABLET PO (11:19)
[2024-11-30] MEDS: Lidocaine 5% Patch 1 PATCH TOPICAL (11:25)
[2024-11-30] MEDS: 0.9% Saline Lock 10 ML Syringe IV (19:37)
[2024-12-01] VITALS (8 sets, daily range): BP systolic 96–146; BP diastolic 52–66; PULSE 63–85; RESP 16–18; TEMP 36.2–36.8; O2SAT 98–99
[2024-12-01] MEDS: MELATONIN 10 MG TABLET PO (00:16)
[2024-12-01 05:55] LABS: Hematocrit 25.6 % (37-47); Hemoglobin 7.9 g/dL (12.0-15.0); Immature Granulocytes Count 0.020 X10^3/uL (0.0-0.0); Mean Corp Hgb Conc 30.9 g/dL (32-36); Mean Corpuscular Volume 100.8 fL (81-99); Mean Platelet Vol. 9.4 fl (6.2-12.0); NRBC Flagged by Analyzer 0 % (0-5); Platelet Count 188 K/mm3 (150-450); RBC Distribution Width CV 12.4 % (11.6-14.6); RBC Distribution Width SD 45.9 fl (35.1-43.9); Red Blood Count 2.54 M/mm3 (4.2-5.4); White Blood Count 7.9 K/mm3 (4.4-11.0)
[2024-12-01 06:14] LABS: Anion Gap 5 (5-15); BUN 7 mg/dL (4-19); BUN/Creat Ratio 11.3 RATIO (10-20); Calcium,Total 8.6 mg/dL (7.6-11.0); Carbon Dioxide 32.4 mmol/L (21.0-32.0); Chloride 99 mmol/L (98-108); Estimated Creatinine Clearance 44.24 ml/min (50-250); Glucose 99 mg/dL (70-99); Magnesium 1.9 mg/dL (1.5-2.2); Potassium 3.8 mmol/L (3.3-5.1)
[2024-12-01] MEDS: Albuterol 2.5 MG/3 ML VIAL.NEB. INHALATION (08:06)
[2024-12-01] MEDS: Budesonide Respules 0.5 MG/2 ML AMPUL.NEB. INHALATION ×2 (08:06→19:38)
--- NOTE | 2024-12-01 08:24 | CASEMGMT ---
Discharge Planning Updates sent to [facility] with note that pt may return today. Sharona Peoples DC Planning Asst.
[2024-12-01] MEDS: Senna/Docusate Sodium 1 Tablet 2 TABLET PO (09:29)
[2024-12-01] MEDS: Psyllium 1 PACKET PO (09:29)
[2024-12-01] MEDS: Lidocaine 5% Patch 1 PATCH TOPICAL (09:30)
--- NOTE | 2024-12-01 13:20 | PCM.PN.HOSP ---
Reason for Visit Chief Complaint: Bright red blood per rectum Subjective Subjective Patient seen hemoglobin did drop to 7.9 patient subsequently started on iron plan is for patient to be assessed for discharge Objective Data Objective Data Vital Signs: Vital Signs Temp Pulse Resp BP Pulse Ox O2 Del Method O2 Flow Rate 97.2 F L 63 16 96/52 L 98 Nasal Cannula 2 12/01/24 09:14 12/01/24 09:14 12/01/24 09:14 12/01/24 09:14 12/01/24 09:14 12/01/24 10:00 12/01/24 10:00 Oxygen Flow Rate (L/min) 2 Oxygen Delivery Method Nasal Cannula Weight: 59.8 kg Body Mass Index (BMI) 24.3 Intake & Output: Intake and Output for Last 24 Hours 11/29/24 11/30/24 12/01/24 23:59 23:59 23:59 Intake Total 200 / 200 43.75 / 43.75 280 / 280 Output Total 3 / 3 0 / 0 Balance 200 / 200 40.75 / 40.75 280 / 280 Lab / Micro Data 12/01/24 05:20 12/01/24 05:20 Labs: Laboratory Results - last 24 hr 12/01/24 05:20: WBC 7.9, RBC 2.54 L, Hgb 7.9 L, Hct 25.6 L, MCV 100.8 H, MCH 31.1, MCHC 30.9 L, RDW Std Deviation 45.9 H, RDW Coeff of Francisca 12.4, Plt Count 188, MPV 9.4, Immature Gran % (Auto) 0.300, Neut % (Auto) 58.7, Lymph % (Auto) 19.5, [place] % (Auto) 9.4, Eos % (Auto) 11.5 H, Baso % (Auto) 0.6, Absolute Neuts (auto) 4.6, Absolute Lymphs (auto) 1.54, Nucleated RBC % 0, Sodium 137, Potassium 3.8, Chloride 99, Carbon Dioxide 32.4 H, Anion Gap 5, BUN 7, Creatinine 0.58 L, Estim Creat Clear Calc 44.24 L, Est GFR (MDRD) Non-Af 90, BUN/Creatinine Ratio 11.3, Glucose 99, Calcium 8.6, Phosphorus 3.3, Magnesium 1.9 Physical Exam Narrative GENERAL: cooperative HEENT: Atraumatic; normocephalic EYES; Anicteric, Normal Conjunctiva NECK; supple, normal thyroid, RESPIRATORY: Diminished to auscultation CARDIOVASCULAR: Regular S1 S2, GI: soft, normoactive bowel sounds, : No Renal angle tenderness; EXTREMITIES: No edema, no clubbing, MUSCULOSKELETAL: no muscle wasting NEURO: Awake; no lateralizing signs. SKIN: No Rash PSYCH; Flat affect Assessment & Plan Assessment/Plan (1) Bright red blood per rectum: PLAN: Plan Patient is an 84-year-old lady resident at [facility] who presented to the emergency department with rectal bleeding 1. Hematochezia ? Patient hemoglobin on admission was 7.9. Was admitted to monitored bed consult placed to Dr. Salazar with GI patient underwent colonoscopy on 11/30/2024 findings and recommendations as below Findings - Preparation of the colon was fair. - Diverticulosis in the entire examined colon. - Two bleeding colonic angiodysplastic lesions. Treated with a monopolar probe. - Stool in the rectum, in the recto-sigmoid colon, in the sigmoid colon, in the descending colon, at the splenic flexure and in the cecum. - Four 15 mm polyps in the sigmoid colon, at the splenic flexure, at the hepatic flexure and in the cecum, removed with a hot snare. Resected and retrieved. - A tattoo was seen in the transverse colon and at the hepatic flexure. The tattoo site appeared normal. Recommendations : - Await pathology results. - Repeat colonoscopy because the bowel preparation was poor. 2. Anemia ? Secondary to acute blood loss anemia monitoring H&H and transfuse if patient becomes symptomatic or hemoglobin falls below 7 ? 12/01/2024Patient seen hemoglobin did drop to 7.9 patient subsequently started on iron plan is for patient to be assessed for discharge 3. Hypothyroidism ? Patient is on levothyroxine home dose continued 4. Allergic rhinitis ? Patient is on fexofenadine 5. Dyslipidemia ?Patient is on statin therapy, continued at home dose 6. Chronic hypoxic respiratory failure Secondary to pulmonary fibrosis patient is on home oxygen 3 L at rest 7. Pulmonary fibrosis ? Patient is on pirfenidone held on admission plan is to resume on discharge 8. GERD ? Patient on PPI 9. Anxiety disorder ? Patient is on alprazolam 10. Hypertension ? Blood pressure controlled, home medications continued with dose adjustment as needed 11. DVT prophylaxis ? SCDs only given patient presentation Time spent in the patient's overall evaluation,decision-making process, review of diagnostic data, adjustment of management, discussion with other providers, nursing nursing and ancillary staff involved in patient's care documentation, 35 minutes Charges/Coding Visit Charges Inpatient E&M: 66959 Subs Hosp L2
--- NOTE | 2024-12-01 13:42 | DS.PCM_ITS ---
Providers Date of Admission: 11/29/24 Date of Discharge: 12/01/24 Primary Care Physician: Dr. Сергей Verdugo MD Consultations 11/29/24 11:09 Consult: Gastroenterology Routine Consulting Provider: [facility] Reason for Consult: brbpr EMERGENT Consult: No Notified: Yes Date Notified: 11/29/24 Time Notified: 13:07 Method of Notification: Text Reason For Visit: CONCERN FOR GI BLEED POSITIVE ORTHOSTATS Diagnosis Discharge Diagnosis (1) Bright red blood per rectum: Status: Acute Code(s): K62.5 - Hemorrhage of anus and rectum Plan Patient is an 84-year-old lady resident at [facility] who presented to the emergency department with rectal bleeding 1. Hematochezia ? Patient hemoglobin on admission was 7.9. Was admitted to monitored bed consult placed to Dr. Salazar with GI patient underwent colonoscopy on 11/30/2024 findings and recommendations as below Findings - Preparation of the colon was fair. - Diverticulosis in the entire examined colon. - Two bleeding colonic angiodysplastic lesions. Treated with a monopolar probe. - Stool in the rectum, in the recto-sigmoid colon, in the sigmoid colon, in the descending colon, at the splenic flexure and in the cecum. - Four 15 mm polyps in the sigmoid colon, at the splenic flexure, at the hepatic flexure and in the cecum, removed with a hot snare. Resected and retrieved. - A tattoo was seen in the transverse colon and at the hepatic flexure. The tattoo site appeared normal. Recommendations : - Await pathology results. - Repeat colonoscopy because the bowel preparation was poor. 2. Anemia ? Secondary to acute blood loss anemia monitoring H&H and transfuse if patient becomes symptomatic or hemoglobin falls below 7 ? 12/01/2024Patient seen hemoglobin did drop to 7.9 patient subsequently started on iron plan is for patient to be assessed for discharge 3. Hypothyroidism ? Patient is on levothyroxine home dose continued 4. Allergic rhinitis ? Patient is on fexofenadine 5. Dyslipidemia ?Patient is on statin therapy, continued at home dose 6. Chronic hypoxic respiratory failure Secondary to pulmonary fibrosis patient is on home oxygen 3 L at rest 7. Pulmonary fibrosis ? Patient is on pirfenidone held on admission plan is to resume on discharge 8. GERD ? Patient on PPI 9. Anxiety disorder ? Patient is on alprazolam 10. Hypertension ? Blood pressure controlled, home medications continued with dose adjustment as needed 11. DVT prophylaxis ? SCDs only given patient presentation Time spent in the patient's overall evaluation,decision-making process, review of diagnostic data, adjustment of management, discussion with other providers, nursing nursing and ancillary staff involved in patient's care documentation, 35 minutes Medications at Discharge Home Medications acetaminophen 500 mg tablet (Tylenol Extra Strength) 500 mg PO Q6H PRN fever or pain 11/03/24 albuterol sulfate 90 mcg/actuation aerosol inhaler (Ventolin HFA) 2 puff inhalation Q6H PRN shortness of breath or wheezing 11/03/24 famotidine 20 mg tablet 20 mg PO QDAY 11/03/24 fexofenadine 180 mg tablet 180 mg PO QDAY PRN allergy symptoms 11/03/24 gabapentin 100 mg capsule 100 mg PO TID 11/03/24 guaifenesin 600 mg tablet, extended release 12 hr (Mucinex) 600 mg PO DAILY 11/03/24 levothyroxine 75 mcg tablet (Levo-T) 37.5 mcg PO QDAY 11/03/24 magnesium hydroxide 400 mg/5 mL oral suspension (Milk of Magnesia) 30 ml PO ONCE PRN stomach upset 11/03/24 nortriptyline 50 mg capsule 100 mg PO QHS 11/03/24 ondansetron 4 mg disintegrating tablet 4 mg PO Q6H PRN nausea and vomiting 11/03/24 pantoprazole 40 mg tablet,delayed release 40 mg PO Q12H 11/03/24 pravastatin 40 mg tablet 40 mg PO QDAY 11/03/24 psyllium husk 2.6 gram/4.1 gram oral powder 1 tbsp PO ONCE 11/03/24 sennosides 8.6 mg tablet (senna) 8.6 mg PO QDAY 11/03/24 sumatriptan succinate 100 mg tablet See Rx Instructions PO .COMPLEX 11/03/24 verapamil 240 mg 24 hr capsule,extended release 240 mg PO BID 11/03/24 clonidine 0.2 mg/24 hr weekly transdermal patch 1 patch topical QWEEK 11/27/24 gabapentin 100 mg capsule 200 mg PO QHS 11/27/24 hydralazine 25 mg tablet 25 mg PO Q8H PRN sbp>150 11/27/24 lidocaine HCl 4 % topical cream (Aspercreme (lidocaine HCl)) 1 applic topical .COMPLEX pain 11/27/24 metoprolol succinate 25 mg tablet,extended release 24 hr 25 mg PO DAILY 11/27/24 mometasone 200 mcg/actuation HFA aerosol inhaler (Asmanex HFA) 2 puff inhalation BID 11/27/24 natural ears 1 gtt EACH EAR QHS PRN ear pain 11/27/24 OXYGEN - Supplemental ([facility] INFORMATIONAL USE ONLY) 11/28/24 pirfenidone 801 mg tablet (Esbriet) 801 mg PO TID pulmonary fibrosis 11/30/24 alprazolam 1 mg tablet 1 mg PO TID anxiety 1 day #3 tabs 12/01/24 polysaccharide iron complex 150 mg iron capsule (Ferrex) 150 mg PO DAILY 60 days #60 caps 12/01/24 Physical Exam Narrative GENERAL: cooperative HEENT: Atraumatic; normocephalic EYES; Anicteric, Normal Conjunctiva NECK; supple, normal thyroid, RESPIRATORY: Diminished to auscultation CARDIOVASCULAR: Regular S1 S2, GI: soft, normoactive bowel sounds, : No Renal angle tenderness; EXTREMITIES: No edema, no clubbing, MUSCULOSKELETAL: no muscle wasting NEURO: Awake; no lateralizing signs. SKIN: No Rash PSYCH; Flat affect Weight / BMI Weight Weight: 59.8 kg Body Mass Index (BMI) 24.3 ABG / Lab / Microbiology Data 12/01/24 05:20 12/01/24 05:20 Laboratory: Laboratory Results - last 24 hr 12/01/24 05:20: WBC 7.9, RBC 2.54 L, Hgb 7.9 L, Hct 25.6 L, MCV 100.8 H, MCH 31.1, MCHC 30.9 L, RDW Std Deviation 45.9 H, RDW Coeff of [place] 12.4, Plt Count 188, MPV 9.4, Immature Gran % (Auto) 0.300, Neut % (Auto) 58.7, Lymph % (Auto) 19.5, [place] % (Auto) 9.4, Eos % (Auto) 11.5 H, Baso % (Auto) 0.6, Absolute Neuts (auto) 4.6, Absolute Lymphs (auto) 1.54, Nucleated RBC % 0, Sodium 137, Potassium 3.8, Chloride 99, Carbon Dioxide 32.4 H, Anion Gap 5, BUN 7, C reatinine 0.58 L, Estim Creat Clear Calc 44.24 L, Est GFR (MDRD) Non-Af 90, BUN/Creatinine Ratio 11.3, Glucose 99, Calcium 8.6, Phosphorus 3.3, Magnesium 1.9 D/C Instructions DC O2, CPAP, BIPAP Needs Home O2 Discharge instructions: Yes Type of respiratory needs?: Oxygen Oxygen frequency: Continuous Continuous oxygen liters per minute: 2 DC home with Oxygen: Yes Home O2 MD Review: I have reviewed the oxygen testing, and the patient qualifies for home oxygen equipment and portability. The patient is mobile in the home and the community. Meaningful Use Info Meaningful Use Meaningful Use Diagnoses (Choose all that apply): None applicable Discharge Plan Admission Admit Date/Time: 11/29/24 17:11 Attending Provider: Weston Choudhary Primary Care Provider: Сергей Verdugo Consulting Providers: Mariela Lilly; Johan Adam; Eric Salazar; Aundrea Buckner; Brinda Wright; Elisa Paulson; Brayden Abdullahi Discharge Orders/Prescriptions Prescriptions: New polysaccharide iron complex [Ferrex 150] 150 mg iron Capsule 150 mg PO DAILY 60 Days Qty: 60 0RF Continued acetaminophen [Tylenol Extra Strength] 500 mg tablet 500 mg PO Q6H PRN (Reason: fever or pain) famotidine 20 mg tablet 20 mg PO QDAY fexofenadine 180 mg tablet 180 mg PO QDAY PRN (Reason: allergy symptoms) gabapentin 100 mg capsule 100 mg PO TID levothyroxine [Levo-T] 75 mcg tablet 37.5 mcg PO QDAY magnesium hydroxide [Milk of Magnesia] 400 mg/5 mL suspension 30 ml PO ONCE PRN (Reason: stomach upset) guaifenesin [Mucinex] 600 mg tablet extended release 12hr 600 mg PO DAILY Rx Instructions: may have additional tab 12 hrs later if needed nortriptyline 50 mg capsule 100 mg PO QHS ondansetron 4 mg tablet,disintegrating 4 mg PO Q6H PRN (Reason: nausea and vomiting) pantoprazole 40 mg tablet,delayed release (DR/EC) 40 mg PO Q12H pravastatin 40 mg tablet 40 mg PO QDAY psyllium husk 2.6 gram/4.1 gram powder 1 tbsp PO ONCE Rx Instructions: mix into at least 8 oz of water or juice before administering sennosides [senna] 8.6 mg tablet 8.6 mg PO QDAY sumatriptan succinate 100 mg tablet See Rx Instructions PO .COMPLEX Rx Instructions: take 1 tab at onset of headache; if no relief, may repeat 1 tab after at least 2 hrs; max = 2 tabs/24 hrs PO albuterol sulfate [Ventolin HFA] 90 mcg/actuation HFA aerosol inhaler 2 puff inhalation Q6H PRN (Reason: shortness of breath or wheezing) verapamil 240 mg capsule,ext rel. pellets 24 hr 240 mg PO BID Asmanex HFA 200 mcg/actuation HFA aerosol inhaler 2 puff inhalation BID lidocaine HCl [Aspercreme (lidocaine HCl)] 4 % cream 1 applic topical .COMPLEX Rx Instructions: 1 applic topically to right hip on 12 hrs off 12 hrs; clonidine 0.2 mg/24 hr patch weekly 1 patch topical QWEEK gabapentin 100 mg capsule 200 mg PO QHS hydralazine 25 mg tablet 25 mg PO Q8H PRN (Reason: sbp>150) metoprolol succinate 25 mg tablet extended release 24 hr 25 mg PO DAILY natural ears 1 gtt EACH EAR QHS PRN (Reason: ear pain) Rx Instructions: right ear OXYGEN - Supplemental ([facility] INFORMATIONAL USE ONLY) Patient Comments: patient states that she wears 3 lpm at home DME is [facility] patient is currently staying at [facility] pirfenidone [Esbriet] 801 mg tablet 801 mg PO TID Rx Instructions: administer with food at the same time(s) each day alprazolam 1 mg tablet 1 mg PO TID 1 Days Qty: 3 0RF Discontinued pirfenidone 801 mg tablet 801 mg PO TID Referrals / Follow Up: Сергей Verdugo MD [Primary Care Provider, Internal Medicine] - Within 2 Weeks Disposition Disposition (needs filled in before D/C Order can be placed): Group Home Facility Charges/Coding Visit Charges Inpatient E&M: 76742 Disch Hosp >30min
--- NOTE | 2024-12-01 13:46 | PCM.TXEXTCAR ---
Diet Diet Order/Speech Therapy: INPATIENT Hospital Diet / Speech Therapy Order(s) 11/30/24 16:10 Diet: Regular - General Routine Orders/Code Status Code Status: Full Code DC O2, CPAP, BIPAP needs Home O2 Discharge instructions: Yes Type of respiratory needs?: Oxygen Oxygen frequency: Continuous Continuous oxygen liters per minute: 2 Therapies Physical Therapy: Eval and Treat Occupational Therapy: Eval and Treat Problem/Diagnosis (1) Bright red blood per rectum: Status: Acute Code(s): K62.5 - Hemorrhage of anus and rectum Plan Patient is an 84-year-old lady resident at [facility] who presented to the emergency department with rectal bleeding 1. Hematochezia ? Patient hemoglobin on admission was 7.9. Was admitted to monitored bed consult placed to Dr. Salazar with GI patient underwent colonoscopy on 11/30/2024 findings and recommendations as below Findings - Preparation of the colon was fair. - Diverticulosis in the entire examined colon. - Two bleeding colonic angiodysplastic lesions. Treated with a monopolar probe. - Stool in the rectum, in the recto-sigmoid colon, in the sigmoid colon, in the descending colon, at the splenic flexure and in the cecum. - Four 15 mm polyps in the sigmoid colon, at the splenic flexure, at the hepatic flexure and in the cecum, removed with a hot snare. Resected and retrieved. - A tattoo was seen in the transverse colon and at the hepatic flexure. The tattoo site appeared normal. Recommendations : - Await pathology results. - Repeat colonoscopy because the bowel preparation was poor. 2. Anemia ? Secondary to acute blood loss anemia monitoring H&H and transfuse if patient becomes symptomatic or hemoglobin falls below 7 ? 12/01/2024Patient seen hemoglobin did drop to 7.9 patient subsequently started on iron plan is for patient to be assessed for discharge 3. Hypothyroidism ? Patient is on levothyroxine home dose continued 4. Allergic rhinitis ? Patient is on fexofenadine 5. Dyslipidemia ?Patient is on statin therapy, continued at home dose 6. Chronic hypoxic respiratory failure Secondary to pulmonary fibrosis patient is on home oxygen 3 L at rest 7. Pulmonary fibrosis ? Patient is on pirfenidone held on admission plan is to resume on discharge 8. GERD ? Patient on PPI 9. Anxiety disorder ? Patient is on alprazolam 10. Hypertension ? Blood pressure controlled, home medications continued with dose adjustment as needed 11. DVT prophylaxis ? SCDs only given patient presentation Time spent in the patient's overall evaluation,decision-making process, review of diagnostic data, adjustment of management, discussion with other providers, nursing nursing and ancillary staff involved in patient's care documentation, 35 minutes Allergies/Procedures Done in Hospital Allergies amoxicillin Allergy (Mild, Verified 11/27/24 15:00) PT UNSURE OF REACTION aspirin Allergy (Mild, Verified 11/27/24 15:00) PALPITATIONS ibuprofen Allergy (Mild, Verified 11/27/24 15:00) Swelling montelukast Allergy (Mild, Verified 11/27/24 15:00) Rash rofecoxib Allergy (Mild, Verified 11/27/24 15:00) Itching Sulfa (Sulfonamide Antibiotics) Allergy (Mild, Verified 11/27/24 15:00) Rash doxycycline Adverse Reaction (Mild, Verified 11/27/24 15:00) GI UPSET lisinopril Adverse Reaction (Mild, Verified 11/27/24 15:00) GI UPSET sertraline Adverse Reaction (Mild, Verified 11/27/24 15:00) Diarrhea Type of Care/Length of Stay Estimated LOS: More Than 30 Days Type of Care Needed: Skilled Rehab Potential: Fair Prognosis: Fair Additional Orders/Day of Discharge Day of Discharge: 12/01/24 Discharge Plan Admission Admit Date/Time: 11/29/24 17:11 Attending Provider: Weston Choudhary Primary Care Provider: Сергей Verdugo Consulting Providers: Mariela Lilly; Johan Adam; Eric Salazar; Aundrea Buckner; Brinda Wright; Elisa Paulson; Brayden Abdullahi Discharge Orders/Prescriptions Prescriptions: New polysaccharide iron complex [Ferrex 150] 150 mg iron Capsule 150 mg PO DAILY 60 Days Qty: 60 0RF Continued acetaminophen [Tylenol Extra Strength] 500 mg tablet 500 mg PO Q6H PRN (Reason: fever or pain) famotidine 20 mg tablet 20 mg PO QDAY fexofenadine 180 mg tablet 180 mg PO QDAY PRN (Reason: allergy symptoms) gabapentin 100 mg capsule 100 mg PO TID levothyroxine [Levo-T] 75 mcg tablet 37.5 mcg PO QDAY magnesium hydroxide [Milk of Magnesia] 400 mg/5 mL suspension 30 ml PO ONCE PRN (Reason: stomach upset) guaifenesin [Mucinex] 600 mg tablet extended release 12hr 600 mg PO DAILY Rx Instructions: may have additional tab 12 hrs later if needed nortriptyline 50 mg capsule 100 mg PO QHS ondansetron 4 mg tablet,disintegrating 4 mg PO Q6H PRN (Reason: nausea and vomiting) pantoprazole 40 mg tablet,delayed release (DR/EC) 40 mg PO Q12H pravastatin 40 mg tablet 40 mg PO QDAY psyllium husk 2.6 gram/4.1 gram powder 1 tbsp PO ONCE Rx Instructions: mix into at least 8 oz of water or juice before administering sennosides [senna] 8.6 mg tablet 8.6 mg PO QDAY sumatriptan succinate 100 mg tablet See Rx Instructions PO .COMPLEX Rx Instructions: take 1 tab at onset of headache; if no relief, may repeat 1 tab after at least 2 hrs; max = 2 tabs/24 hrs PO albuterol sulfate [Ventolin HFA] 90 mcg/actuation HFA aerosol inhaler 2 puff inhalation Q6H PRN (Reason: shortness of breath or wheezing) verapamil 240 mg capsule,ext rel. pellets 24 hr 240 mg PO BID Asmanex HFA 200 mcg/actuation HFA aerosol inhaler 2 puff inhalation BID lidocaine HCl [Aspercreme (lidocaine HCl)] 4 % cream 1 applic topical .COMPLEX Rx Instructions: 1 applic topically to right hip on 12 hrs off 12 hrs; clonidine 0.2 mg/24 hr patch weekly 1 patch topical QWEEK gabapentin 100 mg capsule 200 mg PO QHS hydralazine 25 mg tablet 25 mg PO Q8H PRN (Reason: sbp>150) metoprolol succinate 25 mg tablet extended release 24 hr 25 mg PO DAILY natural ears 1 gtt EACH EAR QHS PRN (Reason: ear pain) Rx Instructions: right ear OXYGEN - Supplemental ([facility] INFORMATIONAL USE ONLY) Patient Comments: patient states that she wears 3 lpm at home DME is [facility] patient is currently staying at [facility] pirfenidone [Esbriet] 801 mg tablet 801 mg PO TID Rx Instructions: administer with food at the same time(s) each day alprazolam 1 mg tablet 1 mg PO TID 1 Days Qty: 3 0RF Discontinued pirfenidone 801 mg tablet 801 mg PO TID Referrals / Follow Up: Сергей Verdugo MD [Primary Care Provider, Internal Medicine] - Within 2 Weeks Disposition Disposition (needs filled in before D/C Order can be placed): [facility]
[2024-12-01] MEDS: 0.9% Saline Lock 10 ML Syringe IV (14:48)
[2024-12-01] MEDS: Sodium Ferric Gluconat/Sucrose 250 MG in 0.9% Normal Saline (250mL Bag) 250 ML 135 MG IV (14:49)
--- NOTE | 2024-12-01 15:35 | CASEMGMT ---
Discharge Planning Discharge orders, signed med list, and transport time sent to [facility] Physicians will transport pt by wheelchair at 7:45p. Nursing, SW, and pt updated. VM left for pts nephew/HC POA (Ermias). Sharona Peoples DC Planning Asst.
--- NOTE | 2024-12-01 16:26 | PN_ITS ---
Progress Note Patient underwent colonoscopy yesterday. She is not having any abdominal pain, cramping, chest pain or shortness of breath. She is tolerating normal diet. She is not on anticoagulation or antiplatelet therapy. Plan is for her to transfer back to rehab. Physical Exam Narrative GENERAL: cooperative HEENT: Atraumatic; normocephalic EYES; Anicteric, Normal Conjunctiva NECK; supple, normal thyroid, RESPIRATORY: Diminished to auscultation CARDIOVASCULAR: Regular S1 S2, GI: soft, normoactive bowel sounds, : No Renal angle tenderness; EXTREMITIES: No edema, no clubbing, MUSCULOSKELETAL: no muscle wasting NEURO: Awake; no lateralizing signs. SKIN: No Rash PSYCH; Flat affect Assessment & Plan Assessment/Plan (1) Bright red blood per rectum: PLAN: Plan Bright red blood per rectum with positive orthostatic vital signs/GERD ?Hemoglobin on morning labs yesterday was 7.9, afternoon was 8.2 but this morning at 7.9 again ? Her hemoglobin seems to be stable. She underwent colonoscopy all way to the terminal ileum and was discovered to have multiple adenomatous polyps as likely etiology of her acute blood loss anemia. She is doing very well without any complications at this time. I am okay with her being transferred to [facility] or rehab services. Visit Charges Inpatient E&M: 86644 Subs Hosp L3
--- NOTE | 2024-12-01 18:52 | NURSING ---
Nurse to nurse report given to Mckenzie @ [facility]. Notified of transfer time.
== END 2024-12-01 20:30 | disposition skilled nursing facility (03) | DRG 378 ==
LOC: ED 15:38 → PCU 17:43
PROVIDERS: Anesthesiology; Family Medicine; Internal Medicine Gastroenterology; Admitting Provider Internal Medicine; Emergency Provider Emergency Medicine; PCP Internal Medicine; Visit Provider Internal Medicine
PROC: 0DJD8ZZ Inspection of Lower Intestinal Tract, Via Natural or Artificial Opening Endoscopic (ICD-10-PCS; CPT 45378; principal; 2024-11-30 07:40)
DX: K55.21 Angiodysplasia of colon with hemorrhage (principal); J96.11 Chronic respiratory failure with hypoxia; D62 Acute posthemorrhagic anemia; J84.10 Pulmonary fibrosis, unspecified; I10 Essential (primary) hypertension; E03.9 Hypothyroidism, unspecified; G43.909 Migraine, unspecified, not intractable, without status migrainosus; K21.9 Gastro-esophageal reflux disease without esophagitis; K57.30 Diverticulosis of large intestine without perforation or abscess without bleeding; G47.33 Obstructive sleep apnea (adult) (pediatric); F41.9 Anxiety disorder, unspecified; D12.0 Benign neoplasm of cecum; D12.2 Benign neoplasm of ascending colon; D12.3 Benign neoplasm of transverse colon; E78.5 Hyperlipidemia, unspecified; J30.9 Allergic rhinitis, unspecified; Z79.51 Long term (current) use of inhaled steroids; Z79.899 Other long term (current) drug therapy
CPT/HCPCS: 36415; 46600; 80048; 83735; 84100; 84443; 85014; 85018; 85025; 85610; 85730; 88305; 93005; 94640; 94668; 99285; A4216; J2405; J2916

== ENCOUNTER → 2025-01-17 04:00 | Outpatient (REF) | payer MEDICARE, MEDICAID, SELFPAY ==
--- OUTSIDE RECORDS SUMMARY | 2025-01-17 03:58 | XMS RPT_ITS | CCD ---
Author Organization [facility] Care Team Providers Care Unloading Checker Name Role Phone Сергей Espinoza MD Primary Care Provider [phone] UNKNOWN, UNKNOWN Primary Care Unavailable Clutter, Tommy Referring Unavailable Clutter, Tommy Attending Unavailable Unknown, Unknown Unavailable Unavailable Unavailable Unavailable Сергей Espinoza MD Primary Care Provider [phone] СЕРГЕЙ ESPINOZA Referring Unavailable LUCINA, СЕРГЕЙ A Primary Care Unavailable AL WOODS Referring Unavailable LUCINA, СЕРГЕЙ A Primary Care Unavailable NERIS, NARIMAN A Referring Unavailable LUCINA, СЕРГЕЙ A Primary Care Unavailable LUCINA, СЕРГЕЙ A Primary Care Unavailable YARIEL AMADODRA Referring Unavailable LUCINA, СЕРГЕЙ A Primary Care Unavailable LUCINA, СЕРГЕЙ A Referring Unavailable LUCINA, СЕРГЕЙ A Primary Care Unavailable IGOR JOHNSON Attending Unavailab le LUCINA, СЕРГЕЙ A Primary Care Unavailable NERIS, NARIMAN A Referring Unavailable LUCINA, СЕРГЕЙ A Primary Care Unavailable NERIS, NARIMAN A Referring Unavailable LUCINA, СЕРГЕЙ A Primary Care Unavailable NERIS, NARIMAN A Referring Unavailable BrooklynСергей louis MD Primary Care Provider [phone] Brayden Friend MD Unavailable Dr. Сергей Espinoza MD Primary Care Provider Stacie Xiao Attending Provider Dr. Anais Osullivan MD Attending Provider Anais Osullivan MD Attending Provider Unavaila ble Stacie Xiao Attending Provider Dr. Сергей Espinoza MD Primary Care Provider Tickton BOTTLING SUPERVISOR-C, Stacie Attending Provider Lucina BAILEY, Dr. Rushing Primary Care Provider Shi BAILEY, Dr. Manzo Attending Provider Tj Rosado Attending Provider Anais Osullivan MD Attending Provider Unavaila ble Tickton BOTTLING SUPERVISOR-C, Stacie Attending Provider Lucina BAILEY, Dr. Rushing Primary Care Provider Tickton BOTTLING SUPERVISOR-C, Stacie Attending Provider Lucina BAILEY, Dr. Rushing Primary Care Provider Shi BAILEY, Dr. Manzo Attending Provider Tickton BOTTLING SUPERVISOR-C, Stacie Referring Provider Anais Osullivan MD Referring Provider Unavailjose m Espinoza MD, Dr. Rushing Primary Care Provider Lisa Leonard Attending Provider Unavailable Lucina BAILEY, Dr. Rushing Primary Care Physician Shi BAILEY, Dr. Manzo Attending Physician Tickton BOTTLING SUPERVISOR-C, Stacie Attending Physician Tickton BOTTLING SUPERVISOR-C, Stacie Attending Physician Anais Osullivan MD Attending Physician Unavail able Lisa Leonard Attending Physician Unavailable Silvana BAILEY, Aime Emergency Department Physician Maxx BAILEY, Dr. Sierra Attending Physician Maxx BAILEY, Dr. Sierra Admitting Physician Maxx BAILEY, Dr. Sierra Nurse Practitioner Bradly BAILEY, Dr. Brayden Borden Attending Physician Bradly BAILEY, Dr. Brayden Borden Nurse Practitioner Jair BAILEY, Dr. Prado Nurse Practitioner Martin JUNG Dr. Reyes Nurse Practitioner Dudley BOTTLING SUPERVISOR-C, Aundrea Nurse Practitioner Kyle BOTTLING SUPERVISOR-C, Brinda Nurse Practitioner Elisa Burns Nurse Practitioner Kenrick BAILEY, Dr. Ontiveros Attending Physician Unavail able Martin JUNG, Dr. Reyes Attending Physician Kenrick BAILEY, Dr. Ontiveros Nurse Practitioner Unavaila jas Espinoza MD, Dr. Rushing Primary Care Physician Shi BAILEY, Dr. Manzo Attending Physician Lucina BAILEY, Dr. Rushing Primary Care Physician Gustavo BOTTLING SUPERVISOR-C, Stacie Attending Physician Bradly BAILEY, Dr. Brayden Borden Referring Provider Kenrick BAILEY, Dr. Ontiveros Referring Provider Unavaila ble Sruthi Byrdbe Attending Unavailabl e Oleghe DANNY Efewongbe Referring Unavailabl e Lucina, Сергей Primary Care Unavailable Lilly, Mariela Consulting Unavailable Maxx, Mariela Admitting Unavailable Brooklyn, Сергей Primary Care Unavailable Weston Choudhary Attending Unavailable Johan Adam Consulting Unavailable Eric Salazar Consulting Unavailable Aundrea Buckner Consulting Unavailable Brinda Wright Consulting Unavailable Elisa Paulson Consulting Unavailable Brayden Abdullahi Consulting Unavailable Stacie Becker Attending Unavailable Brooklyn, Сергей Primary Care Unavailable Oleghe DANNY Efshaquille Attending Unavailabl e Brooklyn, Сергей Primary Care Unavailable Oleghe DANNY Eftovabe Attending Unavailabl e Brooklyn, Сергей Primary Care Unavailable Lilly, Mariela Consulting Unavailable Brooklyn, Сергей Primary Care Unavailable Mariela Lilly Admitting Unavailable Weston Choudhary Attending Unavailable Johan Adam Consulting Unavailable Eric Salazar Consulting Unavailable Aundrea Buckner Consulting Unavailable Brinda Wright Consulting Unavailable Elisa Paulson Consulting Unavailable Brayden Abdullahi Consulting Unavailable Weston Choudhary Consulting Unavailable Eric Salazar Attending Unavailable Bradly, Brayden F Referring Unavailable Mariela Lilly Consulting Unavailable Brdaly, Brayden F Attending Unavailable Lucina, Сергей Primary Care Unavailable Mariela Lilly Admitting Unavailable Howardonikathia, Brayden F Consulting Unavailable Oleghe OLS, Efewongbe Attending Unavailabl e Lucina, Сергей Primary Care Unavailable Brooklyn, Сергей Primary Care Unavailable Lisa Leonard Attending Unavailable Weston Choudhary Referring Unavailable Brooklyn, Сергей Primary Care Unavailable Tickton, Stacie Attending Unavailable Lucina, Сергей Primary Care Unavailable Oleghe, Efewongbe Attending Unavailable Brooklyn, Сергей Primary Care Unavailable Tickton, Stacie Attending Unavailable Lucina, Сергей Primary Care Unavailable Tickton, Stacie Attending Unavailable Brooklyn, Сергей Primary Care Unavailable Tickton, Stacie Attending Unavailable Lucina, Сергей Primary Care Unavailable Tickton, Stacie Attending Unavailable Oleghe OLS, Efewongbe Referring Unavailabl e Oleghe OLS, Efewongbe Attending Unavailabl e Brooklyn, Сергей Primary Care Unavailable Oleghe OLS, Efewongbe Attending Unavailabl e Brooklyn, Сергей Primary Care Unavailable Oleghe OLS, Efewongbe Attending Unavailabl e Brooklyn, Сергей Primary Care Unavailable Oleghe OLS, Efewongbe Attending Unavailabl e Lucina, Сергей Primary Care Unavailable Mariela Lilly Attending Unavailable Brooklyn, Сергей Primary Care Unavailable Tj Rosado Attending Unavailable [place], Сергей Primary Care Unavailable Tickton, Stacie Attending Unavailable Lucina, Сергей Primary Care Unavailable Oleghe, Efewongbe Attending Unavailable Brooklyn, Сергей Primary Care Unavailable Oleghe, Efewongbe Attending Unavailable Brooklyn, Сергей Primary Care Unavailable Tickton, Stacie Attending Unavailable Brooklyn, Сергей Primary Care Unavailable Oleghe, Efewongbe Attending Unavailable Tickton, Stacie Attending Unavailable Lucina, Сергей Primary Care Unavailable Lucina, Сергей Primary Care Unavailable Oleghe, Efewongbe Attending Unavailable Brooklyn, Сергей Primary Care Unavailable Tickton, Stacie Attending Unavailable Tickton OLS, Stacie Attending Unavailable Lucina, Сергей Primary Care Unavailable Brooklyn, Сергей Primary Care Unavailable Tickton, Stacie Attending Unavailable Brooklyn, Сергей Primary Care Unavailable Stacie Becker Referring Unavailable Stacie Becker Attending Unavailable Allergies Allergy Classification Reported Allergen(s) Allergy Type Date of Onset Reaction(s) Facility Angiotensin Converting Enzyme (JOYCE) Inhibitors (1 source) Lisinopril Drug Allergy 1 GI Upset [facility] Aspirin (1 source) Aspirin Drug Allergy 1 [facility] Doxycycline (1 source) Doxycycline Drug Allergy 3 GI Upset [facility] Work Phone: montelukast (1 source) montelukast Drug Allergy 8 Rash [facility] Work Phone: NSAIDs (1 source) Ibuprofen Drug Allergy 1 [facility] Penicillins (antibiotic) (1 source) Amoxicillin Drug Allergy 3 Intolerance [facility] rofecoxib (1 source) rofecoxib Drug Allergy 3 Itching [facility] Serotonin Reuptake Inhibitors (SSRIs) (1 source) Sertraline Drug Allergy 3 Diarrhea [facility] Sulfonamides (antibiotic) (1 source) Sulfonamides (Antibiotic) Drug Allergy 1 [facility] (20 sources) Aspirin; Translations: [Aspirin TABS] Drug Allergy 1 Tachycardia, PALPITATIONS [facility] (20 sources) Ibuprofen; Translations: [IBUPROFEN] Drug Allergy 1 Swelling [facility] (20 sources) Lisinopril; Translations: [LISINOPRIL] Drug Allergy 1 GI Upset [facility] (20 sources) montelukast; Translations: [MONTELUKAST SODIUM] Drug Allergy 8 Rash [facility] Work Phone: (20 sources) rofecoxib; Translations: [ROFECOXIB] Drug Allergy 3 Itching [facility] (20 sources) Seasonal allergy; Translations: [SEASONAL ALLERGIES] Allergy to substance 1 Other: See Comments, Intolerance [facility] (20 sources) Sulfonamides (Antibiotic); Translations: [SULFA (SULFONAMIDE ANTIBIOTICS)] Propensity to adverse reactions 1 [facility] (20 sources) Doxycycline; Translations: [DOXYCYCLINE] Drug Allergy 3 GI Upset [facility] Work Phone: (20 sources) Amoxicillin; Translations: [AMOXICILLIN] Drug Allergy 3 Other: See Comments, Intolerance [facility] (20 sources) Sertraline; Translations: [SERTRALINE] Drug Allergy 3 Diarrhea [facility] (14 sources) montelukast Drug Allergy 3 Rash [facility] (14 sources) Sulfonamides (Antibiotic) Allergy to substance 3 Rash [facility] (1 source) Amoxicillin Drug Allergy 5 [facility] (1 source) Aspirin Drug Allergy 5 [facility] (1 source) Doxycycline Drug Allergy 5 [facility] (1 source) Ibuprofen Drug Allergy 5 [facility] (1 source) Lisinopril Drug Allergy 5 [facility] (1 source) montelukast Drug Allergy 5 [facility] (1 source) rofecoxib Drug Allergy 5 [facility] (1 source) Sertraline Drug Allergy 5 [facility] (1 source) Sulfonamides (Antibiotic) Drug allergy (disorder) 5 [facility] Medications Current Medications Medication Drug Class(es) Dates Sig (Normalized) Sig (Original) acetaminophen 500 mg oral tablet (5 sources) Start: 11-03-2024 take 1 tablet by mouth every six hours as needed for pain Acetaminophen / Caffeine (20 sources) Central Nervous System Stimulant, Methylxanthine acetaminophen/ca ffeine (EXCEDRIN ASPIRIN FREE ORAL) Take 2 tablets by mouth as needed. Active acetaminophen/ca ffeine (EXCEDRIN ASPIRIN FREE ORAL) Take 2 tablets by mouth as needed. 0 Active Comment on above: Take 2 tablets by mo [facility] as needed. [id number] 200 actuat albuter ol 0.09 mg/actuat metered dose inhaler (20 sources) beta2-Adrenergic Agonist Start: 11-03-2024 Start: 11-19-2020 End: 07-09-2023 take 2 puff(s) [...] in structed every 4 hours as needed. azithromycin 250 mg oral tablet (10 sources) Macrolide Antimicrobial Start: End: take 2 tablets by mouth once daily, [...] on above: Take 2 tablets by mo [facility] once daily for 1 day, THEN 1 tablet once daily for 4 days. 168 hr cloNIDine 0.81569 mg/ hr transdermal system (20 sources) Central alpha-2 Adrenergic Agonist Start: 11-27-2024 Start: 03-25-2023 cloNIDine HCl (CATAPRES) 0.1 mg tablet take 1 tablet twice daily 180 tablet 3 03/25/2023 Active Start: 01-14-2023 End: 11-27-2024 take 1 tablet by mouth three times daily Clonidine Hcl 0.1 mg tablet Discontinued 0.1 mg PO THREE TIMES A DAY January 21, 2023 1:00am November 27, 2024 2:59pm HTN Start: 08-22-2022 End: 01-14-2023 take 1 tablet by mouth twice daily cloNIDine HCl (CATAPRES) 0.1 mg tablet Take 1 tablet by mouth twice daily. 180 tablet 1 09/29/2022 01/14/2023 Discontinued Comment on above: Take 1 tablet by maryse twice daily. Take 1 tablet by maryse three times a day. take 1 tablet [...] Active Comment on above: daily at bedtime. famotidine 20 mg oral tablet (5 sources) Histamine-2 Receptor Antagonist Start: take 1 tablet by mouth once daily fexofenadine hydrochloride 180 mg oral tablet (20 sources) Histamine-1 Receptor Antagonist Start: take 1 tablet by mouth once daily as needed fexofenadine (AL LEGRA) 180 mg tablet Take 180 mg by mouth as needed (Patient choice). Active Comment on above: Take 180 mg by mouth once daily. Take 180 mg by mouth as needed (Patient choice). 120 actuat fluticasone propionate 0.11 mg/actuat metered dose inhaler (20 sources) Corticosteroid Start: take 1 spray(s) nasal route once daily fluticasone (FLONASE) 50 mcg/actuation nasal spray Use 1 [place] in each nostril once daily. 48 g 3 07/09/2023 Active Start: 05-12-2023 End: 08-10-2023 take 1 puff(s) by inhalation once daily fluticasone furoate (ARNUITY ELLIPTA) 100 mcg/actuation inhaler Inhale 1 Puff as instructed once daily. 3 Each 4 05/12/2023 07/14/2023 Discontinued Start: 05-12-2023 End: 07-09-2023 take 1 spray(s) nasal route once daily fluticasone (FLONASE) 50 mcg/actuation nasal spray Use 1 [place] in each nostril once daily. 1 Each [...] Puff as instructed once daily. 3 Each 03/30/2023 06/28/2023 Active Start: 03-24-2023 End: 08-01-2024 take 1 puff(s) by mouth twice daily fluticasone (FLOVENT) 110 mcg/actuation inhaler Inhale 1 Puff as instructed two times a day. Shake well before use. Rinse mouth after use. 1 Each 07/14/2023 08/01/2024 Active Start: 01-21-2023 End: 11-27-2024 Fluticasone Propionate (Flov ent Hfa) 110 mcg/actuation HFA aerosol inhaler Discontinued 1 [facility] INHALATION Q1January 21, 2023 1:00am November 27, 2024 3:07pm Start: 01-21-2023 End: 11-03-2024 Fluticasone Propionate 50 mcg/actuation spray,suspension Discontinued 1 NMA INTRANASAL Q1January 21, 2023 1:00am November 03, 2024 11:42am Start: 01-19-2023 End: 04-23-2023 take 1 spray(s) nasal route twice daily fluticasone (FLONASE) 50 mcg/actuation nasal spray Use 1 [place] in each nostril two times a day. [...] (FLONASE) 50 mcg/actuation nasal spray Use 1 [place] in each nostril daily at bedtime. 3 [...] 0 Active Comment on above: Use 1 [place] in each nostril daily at bedtime. Inhale 2 Puffs as in structed twice daily. Inhale by Mouth Inhale 1 Puff as ins tructed twice daily. Shake well before use. Rinse mouth after use. Use in the nose as n eeded (Pt uses 1 spray each nostril once a day as needed.). Use 1 [place] in each nostril two times a day. Inhale 1 Puff as ins tructed two times a day. Shake well before use. Rinse mouth after use. Inhale 1 Puff as ins tructed once daily. Use 1 [place] in each nostril once daily. Fluticasone Propionate (Flovent Hfa) 110 mcg/actuation HFA aerosol inhaler (10 sources) Start: Fluticasone Propionate (Flovent Hfa) 110 mcg/actuation HFA aerosol inhaler Active 1 NMA INHALATION Q12H January 21, 2023 1:00am gabapentin 100 mg oral capsule (20 sources) Anti-epileptic Agent Start: take 2 capsules by mouth at bedtime Start: 11-03-2024 take 1 capsule by mo [facility] three times daily Start: 06-21-2023 take 1 capsule by mo [facility] four times daily as needed gabapentin (NEURONTIN) [...] on above: Take 1 capsule by mo [facility] three times daily for 30 days. Take 1 capsule by mo [facility] three times daily for 180 days. Take 2 capsules by [facility] three times daily for 180 days. 12 hr guaiFENesin 600 mg extended release oral tablet (5 sources) Start: 11-03-2024 take 1 tablet by mouth once daily Start: 11-03-2024 take 1 tablet by [facility] twice daily, then take 1 tablet by mouth every twelve hours Guaifenesin (Mucinex) 600 mg tablet extended release 12hr Active 600 mg PO TWICE A DAY November 03, 2024 12:00am hydrALAZINE hydrochloride 25 mg oral tablet (9 sources) Arteriolar Vasodilator Start: 11-27-2024 take 1 tablet by mouth every eight hours as needed Start: 11-03-2024 End: 11-27-2024 take 1 tablet by mouth twice daily Hydralazine 10 mg tablet Discontinued 10 mg PO TWICE A DAY November 03, 2024 12:00am November 27, 2024 3:04pm Inhalational Spacing Device (AEROCHAMBER) Spcr (20 sources) Start: 06-08-2012 Inhalational Spacing Device (AEROCHAMBER) Spcr Indications: Asthma exacerbation , Bronchitis 1 Device as directed. 1 Inhaler 0 06/08/2012 Active Comment on above: 1 Device as directed . 200 actuat levalbuterol 0.045 mg/actuat metered dose inhaler (20 sources) beta2-Adrenerg ic Agonist Start: 08-18-2022 End: 02-14-2023 take 1-2 puff(s) by inhalation every four [...] for wheezing/shortness of breath. levothyroxine sodium 0.075 m g oral tablet (20 sources) l-Thyroxine Start: 11-03-2024 Start: 05-27-2023 End: 07-09-2023 take 0.5 tablet by mouth once daily levothyroxine (SYNTHROID) 75 mcg tablet Take 0.5 tablets by mouth once daily. 45 tablet 4 07/09/2023 Active Start: 07-19-2020 End: 11-03-2024 take 1 tablet by mouth once daily Levothyroxine 25 mcg tablet Discontinued 25 ug PO DAILY January 21, 2023 1:00am November 03, 2024 11:33am Levothyroxine So dium 25 MCG Oral Tablet Quantity: 0 Refills: 0 Ordered: 09-Dec-2015 DO Active Comment on above: Take 1 tablet by maryse th once daily. Take 0.5 tablets by mouth once daily. lidocaine hydrochloride 40 m g/ml topical cream (10 sources) Antiarrhythmic, Amide Local Anesthetic Start: 11-27-2024 Start: 11-03-2024 End: 11-27-2024 Lidocaine 5 % adhesive patch ,medicated Discontinued 1 NMA TOPICAL daily November 03, 2024 12:00am November 27, 2024 3:07pm leave on most painful area for up to 12 hrs Start: 10-24-2022 End: 10-24-2022 lidocaine (PF) 10 mg/mL (1 % ) 3 mL injection (XYLOCAINE) magnesium hydroxide 80 mg/ml oral suspension (5 sources) Start: 11-03-2024 take 1 mL by mouth o nce as needed Start: 11-03-2024 take 1 mL by mouth once Magnes ium Hydroxide (Milk Of Magnesia) 400 mg/5 mL suspension Active 5 mL PO ONCE November 03, 2024 12:00am meloxicam 7.5 mg oral tablet (11 sources) Nonsteroidal Anti-inflammatory Drug Start: 05-22-2022 End: 07-11-2022 take 1 tablet by mouth once daily meloxicam (MOBIC) 7.5 mg tablet Indications: Primary osteoarthritis of right hip Take 1 tablet by mouth once daily. 30 tablet 0 06/11/2022 07/11/2022 Active Comment on above: Take 1 tablet by mouth once daily. Take 1 tablet by maryse th once daily 24 hr metoprolol succinate 25 mg extended release oral tablet (4 sources) beta-Adrenergic Scooby Start: 11-27-2024 take 1 tablet by mouth once daily 120 actuat mometasone furoate 0.2 mg/actuat metered dose inhaler (8 sources) Corticosteroid Start: 11-27-2024 Start: 11-27-2024 Mometasone (Mo metasone 200 Mcg/Actuation Hfa Aerosol Inhaler) 200 mcg/actuation HFA aerosol inhaler Active 2 NMA INHALATION TWICE A DAY November 27, 2024 12:00am Complies with drug therapy Start: 11-03-2024 End: 11-27-2024 Mometasone 220 mcg/ actuatio n (120) aerosol powdr breath activated Discontinued 1 NMA INHALATION TWICE A DAY November 03, 2024 12:00am November 27, 2024 2:58pm Mometasone 220 mcg/ actuatio n (120) aerosol powdr breath activated (1 source) Start: 11-03-2024 Mometasone 220 mcg/ actuation (120) aerosol powdr breath activated Active 1 NMA INHALATION TWICE A DAY November 03, 2024 12:00am natural ears (4 sources) Start: 11-27-2024 Start: 11-27-2024 natural ears A ctive 1 gtt EACH EAR AT BEDTIME as needed for ear pain November 27, 2024 12:00am right ear Complies with drug therapy nortriptyline 50 mg oral capsule (20 sources) Tricyclic Antidepressant Start: 11-03-2024 take 1 capsule by mouth at bedtime Start: 10-12-2020 End: 07-16-2023 take 1 capsule by mouth once daily at bedtime nortriptyline (PAMELOR) 75 mg capsule Take 1 capsule by mouth daily at bedtime. 90 capsule 3 07/17/2023 Active Nortriptyline HC l - 50 MG Oral Capsule Quantity: 0 Refills: 0 Ordered: 09-Dec-2015 DO Active Comment on above: Take 1 capsule by mo [facility] daily at bedtime. TAKE 1 CAPSULE AT BE DTIAZ ondansetron 4 mg disintegrating oral tablet (5 sources) Serotonin-3 Receptor Antagonist Start: 11-03-2024 take 1 tablet by mouth every six hours as needed for nausea and vomiting Start: 11-03-2024 take [address] [facility] every eight hours Ondansetron 4 mg tablet,disintegrating Active 4 mg PO Q8H November 03, 2024 12:00am OXYGEN - Supplemental ([facility] INFORMATIONAL USE ONLY) (4 sources) Start: 11-28-2024 OXYGEN, HOME THERAPY, (20 sources) Start: 08-23-2019 OXYGEN, HOME THERAPY, Indications: IPF (idiopathic pulmonary [...] 2L/min NC with exertion and with sleep. pantoprazole 40 mg delayed release oral tablet (5 sources) Proton Pump Inhibitor Start: 11-03-2024 take 1 tablet by mouth every twelve hours Start: 11-03-2024 take 1 tablet by maryse th once daily Pantoprazole 40 mg tablet,delayed release (DR/EC) Active 40 mg PO daily November 03, 2024 12:00am pirfenidone 801 mg oral tabl et (20 sources) Pyridone Start: 11-30-2024 take 1 tablet by maryse th once daily at mealtime Start: 11-27-2024 End: 12-01-2024 take 1 tablet by mouth three times daily Pirfenidone 801 mg tablet Discontinued 801 mg PO THREE TIMES A DAY November 27, 2024 12:00am December 01, 2024 1:44pm Start: 03-20-2023 End: 09-02-2023 take 1 tablet by mouth three times daily pirfenidone (ESBRIET) 801 mg tablet Indications: Idiopathic pulmonary fibrosis (HCC) Take 1 tablet by mouth three times a day. 90 tablet 11 09/02/2023 Active Start: 01-21-2023 take 1 capsule by mo [facility] three times daily Pirfenidone (Pirfenidone 267 Mg Capsule) 267 mg capsule Active 267 mg PO THREE TIMES A DAY January 21, 2023 1:00am Start: 01-21-2023 End: 11-27-2024 take 1 capsule by mouth three times daily Pirfenidone (Pirfenidone 267 Mg Capsule) 267 mg capsule Discontinued 267 mg PO THREE TIMES A DAY January 21, 2023 1:00am November 27, 2024 3:00pm Start: 04-14-2022 End: 03-18-2023 take 1 tablet [...] DAY WITH MEALS Take 1 tablet by maryse th three times daily. TAKE 1 TABLET BY MARYSE TH 3 TIMES A DAY Take 1 tablet by maryse th three times a day. polysaccharide iron complex 150 mg oral capsule (3 sources) Start: 12-01-2024 pravastatin sodium 40 mg oral tablet (20 sources) HMG-CoA Reductase Inhibitor Start: 11-03-2024 take 1 tablet by mouth once daily Start: 07-19-2020 End: 06-24-2023 pravastatin (PRAVACHOL) 40 m g tablet take 1 tablet at bedtime 90 tablet 3 06/24/2023 Active Comment on above: Take 1 tablet by maryse th daily at bedtime. promethazine hydrochloride 12.5 mg oral tablet (20 sources) Phenothiazine Start: 10-03-19 take 1 tablet by mouth every six hours as needed for headache promethazine (PHENERGAN) 12.5 mg tablet Indications: Other migraine without status migrainosus, not intractable Take 1 tablet by mouth every 6 hours as needed (Headache). 10 tablet 10/03/2019 Active Comment on above: Take 1 tablet by maryse th every 6 hours as needed (Headache). Psyllium Husk (5 sources) Start: 11-04-19 Start: 11-03-2024 Psyllium Husk 2.6 gram/4.1 gram powder Active 1 tbsp PO ONCE November 03, 2024 12:00am mix into at least 8 oz of water or juice before administering Complies with drug therapy Start: 11-03-2024 Psyllium Husk 2.6 gram/4.1 gram powder Active 1 tbsp PO ONCE November 03, 2024 12:00am mix into at least 8 oz of water or juice before administering Sennosides (Senna) 8.6 mg tablet (1 source) Start: 11-03-2024 take 1 tablet by mouth once daily Sennosides (Senna) 8.6 mg tablet Active 8.6 mg PO daily November 03, 2024 12:00am sennosides, snf 8.6 mg oral tablet (4 sources) Start: 11-03-2024 take 1 tablet by mouth once daily SUMAtriptan 100 mg oral tablet (20 sources) Serotonin-1b and Serotonin-1d Receptor Agonist Start: 11-03-2024 take 1 tablet by mouth every two hours Start: 10-03-2019 End: 02-06-2023 take 1 tablet by mouth every two hours as needed for headache SUMAtriptan (IMITREX) 100 mg tablet Indications: Other migraine without status migrainosus, not intractable Take 1 tablet (100 mg) by mouth as needed for migraine headache (see administration instructions). at onset of headache.May repeat after 2 hours. 9 tablet 1 02/06/2023 Active Comment on above: Take 1 tablet by maryse as needed for Migraine Headache (see administration instructions). at onset of headache.May repeat after 2 hours. Take 1 tablet (100 m g) by mouth as needed for migraine headache (see administration instructions). at onset of headache.May repeat after 2 hours. triamcinolone acetonide 5 mg/ml topical cream (20 sources) Corticosteroid Start: 05-12-2023 End: 07-14-2023 triamcinolone acetonide (KENALOG) 0.5 % cream Apply to affected area three times a day. 15 g 1 07/14/2023 Active Start: 06-03-2021 End: 05-08-2023 triamcinolone acetonide (DUNG ALOG) 0.5 % cream Apply to affected area three times daily. 15 g 1 10/11/2021 02/14/2022 Discontinued Comment on above: Apply to affected ar ea three times daily. Apply to affected ar ea three times a day. 24 hr verapamil hydrochloride 240 mg extended release oral capsule (20 sources) Calcium Channel Scooby Start: 11-03-2024 take 1 capsule by mouth twice daily Start: 11-03-2024 take 1 capsule by mo [facility] once daily in the morning Verapamil 240 mg capsule,ext rel. pellets 24 hr Active 240 mg PO EVERY MORNING November 03, 2024 12:00am Start: 07-24-2021 End: 10-22-2021 take 1 tablet [...] 06/06/2021 Discontinued take 1 capsule by mo [facility] every twenty-four hours Verapamil HCl ER 180 MG Oral Capsule Extended Release 24 Hour Quantity: 0 Refills: 0 Ordered: 09-Dec-2015 DO Active Comment on above: [facility] Completed/Discontinued Medications Medication [...] Quantity: 50 Refills: 0 Ordered: 20-Apr-2022 Umer WILSON Tommy Start : 20-Apr-2022 Active ALPRAZolam 1 mg oral tablet (20 sources) Benzodiazepine Start: 09-30-2024 End: 12-25-2024 take 1 tablet by mouth three times daily Alprazolam 1 mg tablet Discontinued 1 mg PO THREE TIMES A DAY 90 30 0 November 25, 2024 11:32am December 24, 2024 12:00am December 01, 2024 1:45pm anxiety Start: 08-01-2024 End: 09-28-2024 take 1 [...] Comment on above: Take 1 tablet by maryse th twice daily as needed for sedation or anxiety for up to 30 days. Take 1 tablet by mayrse th twice daily as needed for sedation or anxiety for up to 30 days. Do not start before October 05, 2021. Take 1 tablet by maryse th three times daily as needed for sedation or anxiety for up to 30 days. Take 1 tablet by maryse th three times daily as needed for sedation or anxiety for up to 30 days. Do not start before December 04, 2021. Take 1 tablet by maryse th three times daily as needed for sedation or anxiety for up to 30 days. Do not start before February 28, 2022. Take 1 tablet by maryse th three times daily as needed for sedation or anxiety for up to 30 days. Do not start before May 28, 2022. Take 1 tablet by maryse three times daily as needed for sedation or anxiety for up to 30 days. Do not start before June 27, 2022. Take 1 tablet by maryse th three times daily as needed for sedation or anxiety for up to 30 days. Do not start before September 24, 2022. Take 1 tablet by maryse th three times daily as needed for sedation or anxiety for up to 30 days. Do not start before November 20, 2022. Take 1 tablet by maryse th three times a day as needed for sedation or anxiety for up to 30 days. Do not start before December 20, 2022. Take 1 tablet by maryse th three times a day as needed for sedation or anxiety for up to 30 days. Take 1 tablet by maryse th three times a day as needed for sedation or anxiety for up to 30 days. Do not start before February 16, 2023. Take 1 tablet by maryse th three times a day as needed [...] oral capsule (1 source) Non-narcotic Antitussive Start: End: take 1 capsule by mouth three times daily as needed for cough benzonatate (TESSALON PERLES) 100 mg capsule Indications: cough Take 1 capsule by mouth three times daily as needed for cough for up to 30 doses. 20 capsule 0 12/26/2020 05/30/2021 Discontinued Comment on above: Take 1 capsule by [facility] three times daily as needed for cough for up to 30 doses. betamethasone 1 mg/ml topical cream (20 sources) Corticosteroid Start: End: Betamethasone Valerate 0.1 % cream Discontinued [...] Comment on above: Take 1 tablet by maryse th once daily. cephalexin 500 mg oral capsule (14 sources) Cephalosporin Antibacterial Start: 01-10-20 End: 01-22-20 take 1 capsule by mouth twice daily Cephalexin 500 mg capsule Discontinued 500 mg PO TWICE A DAY 10 January 09, 2023 1:00am January 21, 2023 [...] Discontinued Start: 06-12-2016 take 1 tablet by maryse th once daily Doxycycline Hyclate 100 MG Oral Tablet TAKE 1 TABLET EVERY 12 HOURS DAILY. Quantity: 20 Refills: 0 Ordered: 12-Jun-2016 Zurdo Puentes MD Start : 12-Jun-2016 Active Comment on above: Take 1 capsule by mo [facility] twice daily. escitalopram 5 mg oral tablet (15 sources) Serotonin Reuptake Inhibitor Start: 3 End: 3 take 1 tablet by mouth once daily escitalopram oxalate (LEXAPRO) 5 mg tablet Take 1 tablet by mouth once daily. 30 tablet 1 11/17/2022 01/19/2023 Discontinued Comment on above: Take 1 tablet by maryse once daily. esomeprazole 40 mg delayed release [...] by mo ut[facility] twice daily before meals. Methotrexate (20 sources) Folate Analog Metabolic Inhibitor [...] Start: 06-12-2016 take 2 tablets by mo ut once daily predniSONE 20 MG Oral Tablet [...] 3 days Take 2 tablets by mo ut[facility] once daily for 7 days. Take 4 tablets by mo [facility] once daily for 3 days, THEN 3 [...] on above: Take 1 capsule by mo [facility] two times a day for 30 days. sertraline 25 mg oral tablet (1 source) Serotonin Reuptake Inhibitor Start: 3 End: 3 take 1 tablet by mouth once daily sertraline (ZOLOFT) 25 mg tablet Indications: Anxiety Take 1 tablet by mouth once daily. 90 tablet 0 11/12/2022 11/17/2022 Discontinued (Side Effects) Comment on above: Take 1 tablet by maryse once daily. simvastatin 40 mg oral tablet (1 source) HMG-CoA Reductase Inhibitor Simvastatin 40 MG Oral Tablet Quantity: 0 Refills: 0 Ordered: 09-Dec-2015 DO Active 125 ml sodium chloride 9 mg/ml prefilled syringe (20 sources) Start: 3 End: 4 sodium chloride 0.9 % (flush) 10 mL (BD POSIFLUSH) Problems Active Problems Problem Classification Problem Date Documented Da te Episodic/Chronic Acute bronchitis (1 source) Acute bronchitis; Translations: [Acute bronchitis] Episodic Adjustment disorders (1 source) Family tension; Translations: [Reaction to severe stress, unspecified] Chronic Administrative/social admission (5 sources) Patient encounter status; Translations: [Persons encountering health services in other specified circumstances] Episodic Anxiety disorders (20 sources) Anxiety; Translations: [Anxiety disorder, unspecified] Onset: 8 Chronic Asthma (20 sources) Asthma; Translations: [Unspecified asthma, uncomplicated] Onset: 5 05-22-2016 Chronic Cardiac dysrhythmias (5 sources) Palpitations; Translations: [Palpitations] Onset: 4 11-28-2022 Episodic Complications of surgical procedures or medical care (14 sources) Drug therapy finding; Translations: [Unspecified adverse effect of drug or medicament, initial encounter] 01-29-2023 Episodic Deficiency and other anemia (9 sources) Anemia; Translations: [Anemia, unspecified] 07-10-2023 Episodic Deficiency and other anemia (1 source) Anemia, unspecified; Translations: [Anemia, unspecified] Onset: 5 Episodic Deficiency and other anemia (1 source) Iron deficiency anemia, unspecified; Translations: [Iron deficiency anemia, unspecified] Onset: 5 Episodic Disorders of lipid metabolism (20 sources) Pure hypercholesterolemia; Translations: [Pure hypercholesterolemia, unspecified] Onset: 3 Chronic Diverticulosis and diverticulitis (20 sources) Diverticulosis of colon; Translations: [Diverticulosis of large intestine without perforation or abscess without bleeding] 10-29-2006 Chronic Esophageal disorders (20 sources) Gastroesophageal reflux disease; Translations: [Gastro-esophageal reflux disease without esophagitis] 03-25-2016 Chronic Essential hypertension (20 sources) Essential hypertension; Translations: [Essential (primary) hypertension] Onset: 6 01-21-2017 Chronic Fluid and electrolyte disorders (1 source) Hyponatremia; Translations: [Hypo-osmolality and hyponatremia] 07-10-2023 Episodic Gastrointestinal hemorrhage (18 sources) Gastrointestinal hemorrhage; Translations: [Hemorrhage of anus and rectum] Onset: 5 11-27-2024 Episodic Genitourinary symptoms and ill-defined conditions (1 source) Dysuria; Translations: [Dysuria] 07-13-2023 Episodic Headache; including migraine (2 sources) Migraine; Translations: [Other migraine, not intractable, without status migrainosus] Chronic Malaise and fatigue (2 sources) Fatigue; Translations: [Other fatigue] Episodic Miscellaneous mental health disorders (20 sources) Primary insomnia; Translations: [Primary insomnia] Onset: 9 Chronic Mood disorders (20 sources) Recurrent major depression in full remission; Translations: [Major depressive disorder, recurrent, in full remission] Onset: 5 Resolved: 8 Chronic Osteoarthritis (20 sources) Degenerative joint disease involving multiple joints; Translations: [Polyosteoarthritis, unspecified] Onset: 6 09-04-2005 Chronic Osteoporosis (20 sources) Osteoporosis; Translations: [Age-related osteoporosis without current pathological fracture] Onset: 6 10-17-2016 Chronic Other circulatory disease (8 sources) Orthostatic hypotension; Translations: [Orthostatic hypotension] 11-27-2024 Episodic Other connective tissue disease (1 source) Trochanteric bursitis of right hip; Translations: [Trochanteric bursitis, right hip] Episodic Other connective tissue disease (2 sources) Muscle wasting and atrophy, not elsewhere classified, right lower leg; Translations: [Muscle wasting and atrophy, not elsewhere classified, right lower leg] Onset: 5 Episodic Other connective tissue disease (2 sources) Muscle wasting and atrophy, not elsewhere classified, left lower leg; Translations: [Muscle wasting and atrophy, not elsewhere classified, left lower leg] Onset: 5 Episodic Other ear and sense organ disorders (1 source) Otitis externa; Translations: [Infective otitis externa, unspecified] Chronic Other ear and sense organ disorders (1 source) Impacted cerumen; Translations: [Impacted cerumen] Episodic Other fractures (1 source) Closed fracture of one rib; Translations: [Fracture of one rib, left side, subsequent encounter for fracture with routine healing] 09-07-2022 Episodic Other infections; including parasitic (2 sources) Post-viral disorder; 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 Other infections; including parasitic (2 sources) Personal history of other infectious and parasitic diseases; Translations: [History of COVID-19] Episodic Other inflammatory condition of skin (20 sources) Psoriasis; Translations: [Other psoriasis] Onset: 6 09-04-2005 Chronic Other lower respiratory disease (20 sources) Idiopathic pulmonary fibrosis; Translations: [Idiopathic pulmonary fibrosis] Onset: 8 Chronic Other lower respiratory disease (6 sources) Interstitial lung disease; Translations: [Interstitial pulmonary disease, unspecified] Chronic Other lower respiratory disease (12 sources) Fibrosis of lung; Translations: [Pulmonary fibrosis, unspecified] 10-04-2024 Chronic Other lower respiratory disease (2 sources) Idiopathic pulmonary fibrosis; Translations: [Idiopathic pulmonary fibrosis] Onset: 5 Chronic Other lower respiratory disease (2 sources) [...] dyspnea; Translations: [DON (dyspnea on exertion)] Onset: 4 Episodic Other nervous system disorders (1 source) Other chronic pain; Translations: [Chronic right shoulder pain] Onset: 3 Chronic Other non-traumatic joint disorders (2 sources) [...] (adult) (pediatric); Translations: [Obstructive sleep apnea] Onset: 7 Chronic Residual codes; unclassified (2 sources) Pain; Translations: [Pain, unspecified] 10-08-2022 Episodic Residual codes; unclassified (1 source) Not for resuscitation; Translations: [Do not resuscitate] 04-23-2023 Episodic Residual codes; unclassified (1 source) Do not resuscitate; Translations: [DNR (do not resuscitate)] Onset: 4 Episodic Respiratory failure; insufficiency; arrest (adult) (20 sources) Chronic hypoxemic respiratory failure; Translations: [Chronic respiratory failure with hypoxia] Onset: 1 Chronic Spondylosis; intervertebral disc disorders; other back problems (20 sources) Degeneration of lumbosacral intervertebral disc; Translations: [Other intervertebral disc degeneration, lumbosacral region] 10-29-2006 Chronic Thyroid disorders (20 sources) Acquired hypothyroidism; Translations: [Hypothyroidism, unspecified] Onset: Chronic Urinary tract infections (17 sources) Urinary tract infectious disease; Translations: [Urinary tract infection, site not specified] Onset: 01-17-2023 Episodic Viral infection (1 source) Herpes zoster; Translations: [Herpes zoster without mention of complication] Episodic Past or Other Problems Problem Classification Problem Date Documented Da te Episodic/Chronic Headache; including migraine (20 sources) Headache; Translations: [...] [Pain in right hip] Onset: 05-22-2022 Episodic Pathological fracture (20 sources) Pathological fracture [...] Test Name Value Interpretation Reference Range Facility Basic Metabolic Profile (BMP )on 12-03-2024 BUN Normal 06-18 [facility] Comment on above: Result Comment: Canc elled via OM: Order cancelled - Patient discharged Performed By: #### L 100.0100, L500.2500 ####[facility] [address] [place], [address] BUN/CRE Normal 12-19 [facility] Comment on above: Result Comment: Canc elled via OM: Order cancelled - Patient discharged Performed By: #### L 100.0100, L500.2500 ####[facility] [address] [place], [address] Calcium Normal 7.6-11.0 [facility] Comment on above: Result Comment: Canc elled via OM: Order cancelled - Patient discharged Performed By: #### L 100.0100, L500.2500 ####[facility] [address] [place], [address] CL Normal 98-108 [facility] Comment on above: Result Comment: Canc elled via OM: Order cancelled - Patient discharged Performed By: #### L 100.0100, L500.2500 ####[facility] [address] [place], [address] CO2 Normal 21.0-32.0 [facility] Comment on above: Result Comment: Canc elled via OM: Order cancelled - Patient discharged Performed By: #### L 100.0100, L500.2500 ####[facility] [address] [place], [address] CREAT,SERUM Normal 0.70-1.20 [facility] Comment on above: Result Comment: Canc elled via OM: Order cancelled - Patient discharged Performed By: #### L 100.0100, L500.2500 ####[facility] [address] [place], [address] eGFR Normal >60 [facility] Comment on above: Result Comment: Canc elled via OM: Order cancelled - Patient discharged Performed By: #### L 100.0100, L500.2500 ####[facility] [address] [place], [address] GAP Normal 5-15 [facility] Comment on above: Result Comment: Canc elled via OM: Order cancelled - Patient discharged Performed By: #### L 100.0100, L500.2500 ####[facility] [address] [place], [address] GLU Normal 70-99 [facility] Comment on above: Result Comment: Canc elled via OM: Order cancelled - Patient discharged Performed By: #### L 100.0100, L500.2500 ####[facility] [address] [place], [address] Potassium Normal 3.3-5.1 [facility] Comment on above: Result Comment: Canc elled via OM: Order cancelled - Patient discharged Performed By: #### L 100.0100, L500.2500 ####[facility] [address] [place], [address] Basic Metabolic Profile (BMP) Normal 133-145 [facility] Comment on above: Result Comment: Canc elled via OM: Order cancelled - Patient discharged Performed By: #### L 100.0100, L500.2500 ####[facility] [address] [place], [address] CBC W/Diff, Automatedon 10-0 -2024 Absolute Neut Normal 2.0-7.7 [facility] Comment on above: Result Comment: Canc elled via OM: Order cancelled - Patient discharged Performed By: #### L 100.0100, L500.2500 ####[facility] [address] [place], [address] HCT Normal 37-47 [facility] Comment on above: Result Comment: Canc elled via OM: Order cancelled - Patient discharged Performed By: #### L 100.0100, L500.2500 ####[facility] [address] [place], [address] HGB Normal 12.0-15.0 [facility] Comment on above: Result Comment: Canc elled via OM: Order cancelled - Patient discharged Performed By: #### L 100.0100, L500.2500 ####[facility] [address] [place], [address] MCH Normal 27.0-32.0 [facility] Comment on above: Result Comment: Canc elled via OM: Order cancelled - Patient discharged Performed By: #### L 100.0100, L500.2500 ####[facility] [address] [place], [address] MCHC Normal 32-36 [facility] Comment on above: Result Comment: Canc elled via OM: Order cancelled - Patient discharged Performed By: #### L 100.0100, L500.2500 ####[facility] [address] [place], [address] MCV Normal 81-99 [facility] Comment on above: Result Comment: Canc elled via OM: Order cancelled - Patient discharged Performed By: #### L 100.0100, L500.2500 ####[facility] [address] [place], [address] NEUT% Normal 47-70 [facility] Comment on above: Result Comment: Canc elled via OM: Order cancelled - Patient discharged Performed By: #### L 100.0100, L500.2500 ####[facility] [address] [place], [address] PLT Normal 150-450 [facility] Comment on above: Result Comment: Canc elled via OM: Order cancelled - Patient discharged Performed By: #### L 100.0100, L500.2500 ####[facility] [address] [place], [address] RBC Normal 4.2-5.4 [facility] Comment on above: Result Comment: Canc elled via OM: Order cancelled - Patient discharged Performed By: #### L 100.0100, L500.2500 ####[facility] [address] [place], [address] RDW CV Normal 11.6-14.6 [facility] Comment on above: Result Comment: Canc elled via OM: Order cancelled - Patient discharged Performed By: #### L 100.0100, L500.2500 ####[facility] [address] [place], [address] RDW SD Normal 35.1-43.9 [facility] Comment on above: Result Comment: Canc elled via OM: Order cancelled - Patient discharged Performed By: #### L 100.0100, L500.2500 ####[facility] [address] [place], [address] WBC Normal 4.4-11.0 [facility] Comment on above: Result Comment: Canc elled via OM: Order cancelled - Patient discharged Performed By: #### L 100.0100, L500.2500 ####[facility] [address] [place], [address] Basic Metabolic Profile (BMP )on 12-02-2024 BUN Normal 4-19 [facility] Comment on above: Result Comment: Canc elled via OM: Order cancelled - Patient discharged Performed By: #### L 500.2500, L100.0100 ####[facility] [address] [place], [address] BUN/CRE Normal 10-20 [facility] Comment on above: Result Comment: Canc elled via OM: Order cancelled - Patient discharged Performed By: #### L 500.2500, L100.0100 ####[facility] [address] [place], [address] Calcium Normal 7.6-11.0 [facility] Comment on above: Result Comment: Canc elled via OM: Order cancelled - Patient discharged Performed By: #### L 500.2500, L100.0100 ####[facility] [address] [place], [address] CL Normal 98-108 [facility] Comment on above: Result Comment: Canc elled via OM: Order cancelled - Patient discharged Performed By: #### L 500.2500, L100.0100 ####[facility] [address] [place], [address] CO2 Normal 21.0-32.0 [facility] Comment on above: Result Comment: Canc elled via OM: Order cancelled - Patient discharged Performed By: #### L 500.2500, L100.0100 ####[facility] [address] [place], [address] CREAT,SERUM Normal 0.70-1.20 [facility] Comment on above: Result Comment: Canc elled via OM: Order cancelled - Patient discharged Performed By: #### L 500.2500, L100.0100 ####[facility] [address] [place], [address] eGFR Normal >60 [facility] Comment on above: Result Comment: Canc elled via OM: Order cancelled - Patient discharged Performed By: #### L 500.2500, L100.0100 ####[facility] [address] [place], [address] GAP Normal 5-15 [facility] Comment on above: Result Comment: Canc elled via OM: Order cancelled - Patient discharged Performed By: #### L 500.2500, L100.0100 ####[facility] [address] [place], [address] GLU Normal 70-99 [facility] Comment on above: Result Comment: Canc elled via OM: Order cancelled - Patient discharged Performed By: #### L 500.2500, L100.0100 ####[facility] [address] [place], [address] Potassium Normal 3.3-5.1 [facility] Comment on above: Result Comment: Canc elled via OM: Order cancelled - Patient discharged Performed By: #### L 500.2500, L100.0100 ####[facility] [address] [place], [address] Basic Metabolic Profile (BMP) Normal 133-145 [facility] Comment on above: Result Comment: Canc elled via OM: Order cancelled - Patient discharged Performed By: #### L 500.2500, L100.0100 ####[facility] [address] [place], [address] CBC W/Diff, Automatedon 10-0 -2024 Absolute Neut Normal 2.0-7.7 [facility] Comment on above: Result Comment: Canc elled via OM: Order cancelled - Patient discharged Performed By: #### L 500.2500, L100.0100 ####[facility] [address] [place], [address] HCT Normal 37-47 [facility] Comment on above: Result Comment: Canc elled via OM: Order cancelled - Patient discharged Performed By: #### L 500.2500, L100.0100 ####[facility] [address] [place], [address] HGB Normal 12.0-15.0 [facility] Comment on above: Result Comment: Canc elled via OM: Order cancelled - Patient discharged Performed By: #### L 500.2500, L100.0100 ####[facility] [address] [place], [address] MCH Normal 27.0-32.0 [facility] Comment on above: Result Comment: Canc elled via OM: Order cancelled - Patient discharged Performed By: #### L 500.2500, L100.0100 ####[facility] [address] [place], [address] MCHC Normal 32-36 [facility] Comment on above: Result Comment: Canc elled via OM: Order cancelled - Patient discharged Performed By: #### L 500.2500, L100.0100 ####[facility] [address] [place], [address] MCV Normal 81-99 [facility] Comment on above: Result Comment: Canc elled via OM: Order cancelled - Patient discharged Performed By: #### L 500.2500, L100.0100 ####[facility] [address] [place], [address] NEUT% Normal 47-70 [facility] Comment on above: Result Comment: Canc elled via OM: Order cancelled - Patient discharged Performed By: #### L 500.2500, L100.0100 ####[facility] [address] [place], [address] PLT Normal 150-450 [facility] Comment on above: Result Comment: Canc elled via OM: Order cancelled - Patient discharged Performed By: #### L 500.2500, L100.0100 ####[facility] [address] [place], [address] RBC Normal 4.2-5.4 [facility] Comment on above: Result Comment: Canc elled via OM: Order cancelled - Patient discharged Performed By: #### L 500.2500, L100.0100 ####[facility] [address] [place], [address] RDW CV Normal 11.6-14.6 [facility] Comment on above: Result Comment: Canc elled via OM: Order cancelled - Patient discharged Performed By: #### L 500.2500, L100.0100 ####[facility] [address] [place], [address] RDW SD Normal 35.1-43.9 [facility] Comment on above: Result Comment: Canc elled via OM: Order cancelled - Patient discharged Performed By: #### L 500.2500, L100.0100 ####[facility] [address] [place], [address] WBC Normal 4.4-11.0 [facility] Comment on above: Result Comment: Canc elled via OM: Order cancelled - Patient discharged Performed By: #### L 500.2500, L100.0100 ####[facility] [address] [place], [address] Absolute lymphocyte countOrd ered By: Weston Choudhary on 12-01-2024 Lymphocytes Auto (Unsp spec) [#/Vol] 1.54 10*3/uL 0.83-4.51 [facility] Absolute neutrophil countOrd ered By: Weston Choudhary on 12-01-2024 Neutrophils (Bld) [#/Vol] 4.6 10*3/uL 2.0-7.7 [facility] Anion gap in Serum or Plasma Ordered By: Weston Choudhary on 12-01-2024 Anion gap [Moles/Vol] 5 mmol/L - [facility] Automated lymphocyte count a s percentage of total leukocytesOrdered By: Weston Choudhary on 12-01-2024 Lymphocytes/100 WBC Auto (Unsp spec) 19.5 % -41 [facility] BUN/creatinine ratioOrdered By: Weston Choudhary on 12-01-2024 Urea nitrogen/Creatinine [Mass ratio] 11.3 mg/mg 12-19 [facility] Basic Metabolic Profile (BMP )on 12-01-2024 BUN/CRE 11.3 RATIO Normal 12-19 [facility] Comment on above: Performed By: #### L 501.2300, L100.0100, L501.5200, L500.2500 ####[facility] [address] [place], [address] Calcium [Mass/Vol] 8.6 mg/dL Normal 7.6-11.0 [facility] Comment on above: Performed By: #### L 501.2300, L100.0100, L501.5200, L500.2500 ####[facility] [address] [place], [address] Chloride [Moles/Vol] 99 mmol/L Normal 98-108 [facility] Comment on above: Performed By: #### L 501.2300, L100.0100, L501.5200, L500.2500 ####[facility] [address] [place], [address] CO2 [Moles/Vol] 32.4 mmol/L High 21.0-32.0 [facility] Comment on above: Performed By: #### L 501.2300, L100.0100, L501.5200, L500.2500 ####[facility] [address] [place], [address] Creatinine [Mass/Vol] 0.58 mg/dL Low 0.70-1.20 [facility] Comment on above: Performed By: #### L 501.2300, L100.0100, L501.5200, L500.2500 ####[facility] [address] [place], [address] ECRCL 44.24 ml/min Low 50-250 [facility] Comment on above: Performed By: #### L 501.2300, L100.0100, L501.5200, L500.2500 ####[facility] [address] [place], [address] GAP 5 Normal 5-15 [facility] Comment on above: Performed By: #### L 501.2300, L100.0100, L501.5200, L500.2500 ####[facility] [address] [place], [address] GFR/1.73 sq M.predicted among non-blacks MDRD (S/P/Bld) [Vol rate/Area] 90 mL/min/{1.73_m2} Normal >60 [facility] Comment on above: Result Comment: mL/m in/1.73m2 CKD-EPI Creatinine Equation (2020) Performed By: #### L 501.2300, L100.0100, L501.5200, L500.2500 ####[facility] [address] [place], [address] Glucose [Mass/Vol] 99 mg/dL Normal 70-99 [facility] Comment on above: Performed By: #### L 501.2300, L100.0100, L501.5200, L500.2500 ####[facility] [address] [place], [address] Potassium [Moles/Vol] 3.8 mmol/L Normal 3.3-5.1 [facility] Comment on above: Performed By: #### L 501.2300, L100.0100, L501.5200, L500.2500 ####[facility] [address] [place], [address] Sodium [Moles/Vol] 137 mmol/L Normal 133-145 [facility] Comment on above: Performed By: #### L 501.2300, L100.0100, L501.5200, L500.2500 ####[facility] [address] [place], [address] Urea nitrogen [Mass/Vol] 7 mg/dL Normal 4-19 [facility] Comment on above: Performed By: #### L 501.2300, L100.0100, L501.5200, L500.2500 ####[facility] [address] [place], [address] Basophil percentageOrdered B y: Weston Choudhary on 12-01-2024 Basophils/100 WBC (Bld) 0.6 % 0-1 [facility] CBC W/Diff, Automatedon 10 Absolute Lymph 1.54 X10 3/uL Normal 0.83-4.51 [facility] Comment on above: Performed By: #### L 501.2300, L100.0100, L501.5200, L500.2500 ####[facility] [address] [place], [address] Absolute Neut 4.6 X10 3/uL Normal 2.0-7.7 [facility] Comment on above: Performed By: #### L 501.2300, L100.0100, L501.5200, L500.2500 ####[facility] [address] [place], [address] Basophils/100 WBC (Bld) 0.6 % Normal 0-1 [facility] Comment on above: Performed By: #### L 501.2300, L100.0100, L501.5200, L500.2500 ####[facility] [address] [place], [address] Eosinophils/100 WBC (Bld) 11.5 % High 0-5 [facility] Comment on above: Performed By: #### L 501.2300, L100.0100, L501.5200, L500.2500 ####[facility] [address] [place], [address] Erythrocyte distribution width (RBC) [Ratio] 12.4 % Normal 11.6-14.6 [facility] Comment on above: Performed By: #### L 501.2300, L100.0100, L501.5200, L500.2500 ####[facility] [address] [place], [address] Hematocrit (Bld) [Volume fraction] 25.6 % Low 37-47 [facility] Comment on above: Performed By: #### L 501.2300, L100.0100, L501.5200, L500.2500 ####[facility] [address] [place], [address] Hemoglobin (Bld) [Mass/Vol] 7.9 g/dL Low 12.0-15.0 [facility] Comment on above: Performed By: #### L 501.2300, L100.0100, L501.5200, L500.2500 ####[facility] [address] [place], [address] IG% 0.300 Normal 0.0-0.9 [facility] Comment on above: Result Comment: IG% - Immature Granulocytes (promyelocytes, myelocytes and metamyelocytes) > 1% indicates that a LEFT SHIFT is Present. Performed By: #### L 501.2300, L100.0100, L501.5200, L500.2500 ####[facility] [address] [place], [address] Lymphocytes/100 WBC (Bld) 19.5 % Normal 19-41 [facility] Comment on above: Performed By: #### L 501.2300, L100.0100, L501.5200, L500.2500 ####[facility] [address] [place], [address] MCH (RBC) [Entitic mass] 31.1 pg Normal 27.0-32.0 [facility] Comment on above: Performed By: #### L 501.2300, L100.0100, L501.5200, L500.2500 ####[facility] [address] [place], [address] MCHC (RBC) [Mass/Vol] 30.9 g/dL Low 32-36 [facility] Comment on above: Performed By: #### L 501.2300, L100.0100, L501.5200, L500.2500 ####[facility] [address] [place], [address] MCV (RBC) [Entitic vol] 100.8 fL High 81-99 [facility] Comment on above: Performed By: #### L 501.2300, L100.0100, L501.5200, L500.2500 ####[facility] [address] [place], [address] Monocytes/100 WBC (Bld) 9.4 % Normal 0-10 [facility] Comment on above: Performed By: #### L 501.2300, L100.0100, L501.5200, L500.2500 ####[facility] [address] [place], [address] Neutrophils/100 WBC (Bld) 58.7 % Normal 47-70 [facility] Comment on above: Performed By: #### L 501.2300, L100.0100, L501.5200, L500.2500 ####[facility] [address] [place], [address] Nucleated RBC (Bld) [#/Vol] 0 10*3/uL Normal 0-5 [facility] Comment on above: Performed By: #### L 501.2300, L100.0100, L501.5200, L500.2500 ####[facility] [address] [place], [address] Platelet mean volume (Bld) [Entitic vol] 9.4 fL Normal 6.2-12.0 [facility] Comment on above: Performed By: #### L 501.2300, L100.0100, L501.5200, L500.2500 ####[facility] [address] [place], [address] Platelets (Bld) [#/Vol] 188 10*3/uL Normal 150-450 [facility] Comment on above: Performed By: #### L 501.2300, L100.0100, L501.5200, L500.2500 ####[facility] [address] [place], [address] RBC (Bld) [#/Vol] 2.54 10*6/uL Low 4.2-5.4 [facility] Comment on above: Performed By: #### L 501.2300, L100.0100, L501.5200, L500.2500 ####[facility] [address] [place], [address] RDW SD 45.9 fl High 35.1-43.9 [facility] Comment on above: Performed By: #### L 501.2300, L100.0100, L501.5200, L500.2500 ####[facility] [address] [place], [address] WBC (Bld) [#/Vol] 7.9 10*3/uL Normal 4.4-11.0 [facility] Comment on above: Performed By: #### L 501.2300, L100.0100, L501.5200, L500.2500 ####[facility] [address] [place], [address] Carbon dioxide, total [Moles /volume] in Central venous bloodOrdered By: Weston Choudhary on 12-01-2024 CO2 [Moles/Vol] 32.4 mmol/L High 21.0-32.0 [facility] Chloride assayOrdered By: Eugene Choudhary on 12-01-2024 Chloride [Moles/Vol] 99 mmol/L 98-108 [facility] Electrocardiogram reportOrde red By: Salvador Samuels on 12-01-2024 EKG study [facility] Cardiovascular Services [address] [place] [address] 12 Lead EKG 11/30/24 0600 MR#: [id number] Acct: [id number] Name: MERNA WEBSTER Rep #:[id number] : 1940 84 From: Salvador Samuels MD Attending Dr: Dr. Weston Choudhary MD Status: ADM IN Ordering Dr: Hero Valladares MD Date: Location: U Sex: F C Admitted: 11/29/24 Test Reason : AM EKG Blood Pressure : */* mmHG Vent. Rate : 64 BPM Atrial Rate : 64 BPM P-R Int : 164 ms QRS Dur : 88 ms QT Int : 428 ms P-R-T Axes : 45 -10 19 degrees QTcB Int : 441 ms Normal sinus rhythm Cannot rule out Anterior infarct (cited on or before 09-Jan-2023) Abnormal ECG When compared with ECG of 09-Jan-2023 15:00, Premature ventricular complexes are no longer Present Confirmed by MANDEEP BAILEY, SALVADOR ([id number]), editor book JACQUI JUDD ([id number]) on 12/01/2024 7:18:52 AM Referred By: Confirmed By: SALVADOR SAMUELS MD 12/01/2418 Date _ Salvador Samuels MD CC: Dr. Hero Valladares MD; Dr. Weston Choudhary MD; Dr. Сергей Espinoza MD ~ Signed [facility] Other Phone: Eosinophil percentageOrdered By: Weston Choudhary on 12-01-2024 Eosinophils/100 WBC (Bld) 11.5 % High 0-5 [facility] Erythrocyte distribution wid th ratioOrdered By: Weston Choudhary on 12-01-2024 Erythrocyte distribution width (RBC) [Ratio] 12.4 % 11.6-14.6 [facility] Erythrocyte distribution wid th standard deviationOrdered By: Weston Choudhary on 12-01-2024 Erythrocyte distribution width (RBC) [Ratio] 45.9 fl High 35.1-43.9 [facility] Glomerular filtration rate ( GFR) estimation/1.73 sq m using serum, plasma, or whole bOrdered By: Weston Choudhary on 12-01-2024 GFR/1.73 sq M.predicted among non-blacks MDRD (S/P/Bld) [Vol rate/Area] 90 mL/min/{1.73_m2} >60 [facility] Comment on above: mL/min/1.73m2 CKD-EP I Creatinine Equation (2020) Hematocrit Auto (Bld) [Volum e fraction]Ordered By: Weston Choudhary on 12-01-2024 Hematocrit (Bld) [Volume fraction] 25.6 % Low 37-47 [facility] Hemoglobin measurementOrdere d By: Weston Choudhary on 12-01-2024 Hemoglobin (Bld) [Mass/Vol] 7.9 g/dL Low 12.0-15.0 [facility] Immature granulocytes/100 WB C Auto (Bld)Ordered By: Weston Choudhary on 12-01-2024 Immature granulocytes/100 WBC (Bld) 0.300 % 0.0-0.9 [facility] Comment on above: IG% - Immature Granu locytes (promyelocytes, myelocytes and metamyelocytes) > 1% indicates that a LEFT SHIFT is Present. MCV (mean corpuscular volume ) determinationOrdered By: Weston Choudhary on 12-01-2024 MCV (RBC) [Entitic vol] 100.8 fL High 81-99 [facility] Magnesiumon 12-01-2024 Magnesium [Mass/Vol] 1.9 mg/dL Normal 1.5-2.2 [facility] Comment on above: Performed By: #### L 501.2300, L100.0100, L501.5200, L500.2500 ####[facility] [address] [place], [address] Magnesium measurement (mass/ volume)Ordered By: Weston Choudhary on 12-01-2024 Magnesium (Unsp spec) [Mass/Vol] 1.9 mg/dL 1.5-2.2 [facility] Mean corpuscular hemoglobin (MCH) determinationOrdered By: Weston Choudhary on 12-01-2024 MCH (RBC) [Entitic mass] 31.1 pg 27.0-32.0 [facility] Mean corpuscular hemoglobin concentration (MCHC) determinationOrdered By: Weston Choudhary on 12-01-2024 MCHC (RBC) [Mass/Vol] 30.9 g/dL Low 32-36 [facility] Mean platelet volume determi nationOrdered By: Weston Choudhary on 12-01-2024 Platelet mean volume (Bld) [Entitic vol] 9.4 fL 6.2-12.0 [facility] Monocyte percentageOrdered B y: Weston Choudhary on 12-01-2024 Monocytes/100 WBC (Bld) 9.4 % 0-10 [facility] Neutrophil percentageOrdered By: Weston Choudhary on 12-01-2024 Neutrophils/100 WBC (Bld) 58.7 % 47-70 [facility] Nucleated red blood cell per centageOrdered By: Weston Choudhary on 12-01-2024 Nucleated RBC/100 WBC (Bld) [Ratio] 0 % 0-5 [facility] Phosphoruson 12-01-2024 Phosphate [Mass/Vol] 3.3 mg/dL Normal 2.7-4.5 [facility] Comment on above: Performed By: #### L 501.2300, L100.0100, L501.5200, L500.2500 ####[facility] [address] [place], [address] Platelet countOrdered By: Eugene Choudhary on 12-01-2024 Platelets (Bld) [#/Vol] 188 10*3/uL 150-450 [facility] Potassium measurement (mass/ volume)Ordered By: Weston Choudhary on 12-01-2024 Potassium (Unsp spec) [Mass/Vol] 3.8 mmol/L 3.3-5.1 [facility] RBC Auto (Bld) [#/Vol]Ordere d By: Weston Choudhary on 12-01-2024 RBC (Bld) [#/Vol] 2.54 10*6/uL Low 4.2-5.4 [facility] Serum creatinine measurement (mass/volume)Ordered By: Weston Choudhary on 12-01-2024 Creatinine [Mass/Vol] 0.58 mg/dL Low 0.70-1.20 [facility] Serum glucose measurement (m ass/volume)Ordered By: Weston Choudhary on 12-01-2024 Glucose [Mass/Vol] 99 mg/dL 70-99 [facility] Serum or plasma calcium bipin urement (mass/volume)Ordered By: Weston Choudhary on 12-01-2024 Calcium [Mass/Vol] 8.6 mg/dL 7.6-11.0 [facility] Serum or plasma urea nitroge n measurement (mass/volume)Ordered By: Weston Choudhary on 12-01-2024 Urea nitrogen [Mass/Vol] 7 mg/dL 4-19 [facility] Sodium levelOrdered By: Simeon Choudhary on 12-01-2024 Sodium [Moles/Vol] 137 mmol/L 133-145 [facility] White blood cell (WBC) count Ordered By: Weston Choudhary on 12-01-2024 WBC (Bld) [#/Vol] 7.9 10*3/uL 4.4-11.0 [facility] 12 Lead EKGon 11-30-2024 12 Lead EKG [facility] Cardiovascular Services [address] [place] [address] 12 Lead EKG 11/30/24 0600 MR#: [id number] Acct: [id number] Name: MERNA WEBSTER Rep #: [id number] : 1940 84 From: Salvador Samuels MD Attending Dr: Dr. Weston Choudhary MD Status: ADM IN Ordering Dr: Hero Valladares MD Date: 11/30/24 Location: [facility] Sex: F C Admitted: 11/29/24 Test Reason : AM EKG Blood Pressure : */* mmHG Vent. Rate : 64 BPM Atrial Rate : 64 BPM P-R Int : 164 ms QRS Dur : 88 ms QT Int : 428 ms P-R-T Axes : 45 -10 19 degrees QTcB Int : 441 ms Normal sinus rhythm Cannot rule out Anterior infarct (cited on or before 09-Jan-2023) Abnormal ECG When compared with ECG of 09-Jan-2023 15:00, Premature ventricular complexes are no longer Present Confirmed by SALVADOR SAMUELS MD ([id number]), editor book JACQUI JUDD ([id number]) on 12/01/2024 7:18:52 AM Referred By: Confirmed By: SALVADOR SAMUELS MD 12/01/24 0718 Date Salvador Samuels MD CC: Dr. Hero Valladares MD; Dr. Weston Choudhary MD; Dr. Сергей Espinoza MD Signed Normal [facility] Absolute lymphocyte countOrd ered By: Brayden Abdullahi on 11-30-2024 Lymphocytes Auto (Unsp spec) [#/Vol] 1.31 10*3/uL 0.83-4.51 [facility] Absolute neutrophil countOrd ered By: Brayden Abdullahi on 11-30-2024 Neutrophils (Bld) [#/Vol] 5.8 10*3/uL 2.0-7.7 [facility] Activated partial thrombopla stin time (aPTT) in platelet poor plasma by coagulation aOrdered By: Hero Valladares on 11-30-2024 aPTT Coag (PPP) [Time] 26.3 s 24.1-36.2 [facility] Anion gap in Serum or Plasma Ordered By: Brayden Abdullahi on 11-30-2024 Anion gap [Moles/Vol] 8 mmol/L 5-15 [facility] Automated lymphocyte count a s percentage of total leukocytesOrdered By: Brayden Abdullahi on 11-30-2024 Lymphocytes/100 WBC Auto (Unsp spec) 15.3 % Low 19-41 [facility] BUN/creatinine ratioOrdered By: Brayden Abdullahi on 11-30-2024 Urea nitrogen/Creatinine [Mass ratio] 22.3 mg/mg High 10-20 [facility] Basic Metabolic Profile (BMP )on 11-30-2024 BUN/CRE 22.3 RATIO High 10- [facility] Comment on above: Performed By: #### L 500.2500, L100.0100 #### [facility] Laboratory [address] [place], [address] Calcium [Mass/Vol] 8.9 mg/dL Normal 7.6-11.0 [facility] Comment on above: Performed By: #### L 500.2500, L100.0100 #### [facility] Laboratory [address] [place], [address] Chloride [Moles/Vol] 100 mmol/L Normal 98-108 [facility] Comment on above: Performed By: #### L 500.2500, L100.0100 #### [facility] Laboratory [address] [place], [address] CO2 [Moles/Vol] 30.8 mmol/L Normal 21.0-32.0 [facility] Comment on above: Performed By: #### L 500.2500, L100.0100 #### [facility] Laboratory [address] [place], [address] Creatinine [Mass/Vol] 0.48 mg/dL Low 0.70-1.20 [facility] Comment on above: Performed By: #### L 500.2500, L100.0100 #### [facility] Laboratory [address] [place], [address] ECRCL 42.14 ml/min Low 50-250 [facility] Comment on above: Performed By: #### L 500.2500, L100.0100 #### [facility] Laboratory [address] [place], [address] GAP 8 Normal 5-15 [facility] Comment on above: Performed By: #### L 500.2500, L100.0100 #### [facility] Laboratory [address] [place], [address] GFR/1.73 sq M.predicted among non-blacks MDRD (S/P/Bld) [Vol rate/Area] 94 mL/min/{1.73_m2} Normal >60 [facility] Comment on above: Result Comment: mL/m in/1.73m2 CKD-EPI Creatinine Equation (2020) Performed By: #### L 500.2500, L100.0100 #### [facility] Laboratory [address] [place], [address] Glucose [Mass/Vol] 90 mg/dL Normal 70-99 [facility] Comment on above: Performed By: #### L 500.2500, L100.0100 #### [facility] Laboratory [address] [place], [address] Potassium [Moles/Vol] 4.0 mmol/L Normal 3.3-5.1 [facility] Comment on above: Performed By: #### L 500.2500, L100.0100 #### [facility] [address] [place], [address] Sodium [Moles/Vol] 139 mmol/L Normal 133-145 [facility] Comment on above: Performed By: #### L 500.2500, L100.0100 #### [facility] [address] [place], [address] Urea nitrogen [Mass/Vol] 11 mg/dL Normal 4-19 [facility] Comment on above: Performed By: #### L 500.2500, L100.0100 #### [facility] Laboratory [address] [place], [address] Basophil percentageOrdered B y: Brayden Abdullahi on 11-30-2024 Basophils/100 WBC (Bld) 0.5 % 0-1 [facility] CBC W/Diff, Automatedon Absolute Lymph 1.31 X10 3/uL Normal 0.83-4.51 [facility] Comment on above: Performed By: #### L 500.2500, L100.0100 #### [facility] Laboratory [address] [place], [place], [address] Absolute Neut 5.8 X10 3/uL Normal 2.0-7.7 [facility] Comment on above: Performed By: #### L 500.2500, L100.0100 #### [facility] Laboratory [address] [place], [address] Basophils/100 WBC (Bld) 0.5 % Normal 0-1 [facility] Comment on above: Performed By: #### L 500.2500, L100.0100 #### [facility] [address] [place], [address] Eosinophils/100 WBC (Bld) 7.5 % High 0-5 [facility] Comment on above: Performed By: #### L 500.2500, L100.0100 #### [facility] [address] [place], [address] Erythrocyte distribution width (RBC) [Ratio] 12.5 % Normal 11.6-14.6 [facility] Comment on above: Performed By: #### L 500.2500, L100.0100 #### [facility] [address] [place], [address] Hematocrit (Bld) [Volume fraction] 26.0 % Low 37-47 [facility] Comment on above: Performed By: #### L 500.2500, L100.0100 #### [facility] [address] [place], [address] Hemoglobin (Bld) [Mass/Vol] 8.1 g/dL Low 12.0-15.0 [facility] Comment on above: Performed By: #### L 500.2500, L100.0100 #### [facility] [address] [place], [address] IG% 0.200 Normal 0.0-0.9 [facility] Comment on above: Result Comment: IG% - Immature Granulocytes (promyelocytes, myelocytes and metamyelocytes) > 1% indicates that a LEFT SHIFT is Present. Performed By: #### L 500.2500, L100.0100 #### [facility] [address] [place], [address] Lymphocytes/100 WBC (Bld) 15.3 % Low 19-41 [facility] Comment on above: Performed By: #### L 500.2500, L100.0100 #### [facility] [address] [place], [address] MCH (RBC) [Entitic mass] 30.8 pg Normal 27.0-32.0 [facility] Comment on above: Performed By: #### L 500.2500, L100.0100 #### [facility] [address] [place], [address] MCHC (RBC) [Mass/Vol] 31.2 g/dL Low 32-36 [facility] Comment on above: Performed By: #### L 500.2500, L100.0100 #### [facility] [address] [place], [address] MCV (RBC) [Entitic vol] 98.9 fL Normal 81-99 [facility] Comment on above: Performed By: #### L 500.2500, L100.0100 #### [facility] [address] [place], [address] Monocytes/100 WBC (Bld) 8.6 % Normal 0-10 [facility] Comment on above: Performed By: #### L 500.2500, L100.0100 #### [facility] [address] [place], [address] Neutrophils/100 WBC (Bld) 67.9 % Normal 47-70 [facility] Comment on above: Performed By: #### L 500.2500, L100.0100 #### [facility] [address] [place], [address] Nucleated RBC (Bld) [#/Vol] 0 10*3/uL Normal 0-5 [facility] Comment on above: Performed By: #### L 500.2500, L100.0100 #### [facility] [address] [place], [address] Platelet mean volume (Bld) [Entitic vol] 9.4 fL Normal 6.2-12.0 [facility] Comment on above: Performed By: #### L 500.2500, L100.0100 #### [facility] [address] [place], [address] Platelets (Bld) [#/Vol] 191 10*3/uL Normal 150-450 [facility] Comment on above: Performed By: #### L 500.2500, L100.0100 #### [facility] [address] [place], [address] RBC (Bld) [#/Vol] 2.63 10*6/uL Low 4.2-5.4 [facility] Comment on above: Performed By: #### L 500.2500, L100.0100 #### [facility] [address] [place], [address] RDW SD 45.5 fl High 35.1-43.9 [facility] Comment on above: Performed By: #### L 500.2500, L100.0100 #### [facility] [address] [place], [address] WBC (Bld) [#/Vol] 8.6 10*3/uL Normal 4.4-11.0 [facility] Comment on above: Performed By: #### L 500.2500, L100.0100 #### [facility] [address] [place], [address] Carbon dioxide, total [Moles /volume] in Central venous bloodOrdered By: Brayden Abdullahi on 11-30-2024 CO2 [Moles/Vol] 30.8 mmol/L 21.0-32.0 [facility] Chloride assayOrdered By: Ayde Abdullahi on 11-30-2024 Chloride [Moles/Vol] 100 mmol/L 98-108 [facility] Colonoscopy Reporton 025 Colonoscopy Report [facility] Medical Records Department [address] [place] [address] Colonoscopy Report MR#: [id number] Acct: [id number] Name: MERNA WEBSTER Rep #: [id number] : 1940 84 From: Eric Friend DO PCP: Dr. Сергей Espinoza MD Status:ADM IN Patient Name: Merna Webster Procedure Date: 11/30/2024 7:51 AM Date of : 1940 Age: 84 Procedure: Colonoscopy Indications: Hematochezia, Iron deficiency anemia Providers: Eric Salazar DO Medicines: Monitored Anesthesia Care Patient Profile: This is an 84 year old female. Refer to note in patient chart for documentation of history and physical. Last Colonoscopy: several years ago. Complications: No immediate complications. Procedure: Pre-Anesthesia Assessment: - Prior to the procedure, a History and Physical was performed, and patient medications and allergies were reviewed. The patient is competent. The risks and benefits of the procedure and the sedation options and risks were discussed with the patient. All questions were answered and informed consent was obtained. Patient identification and proposed procedure were verified by the physician in the pre-procedure area. Mental Status Examination: alert and oriented. Airway Examination: normal oropharyngeal airway and neck mobility. Respiratory Examination: clear to auscultation. CV Examination: normal. Prophylactic Antibiotics: The patient does not require prophylactic antibiotics. Prior Anticoagulants: The patient has taken no anticoagulant or antiplatelet agents except for NSAID medication. ASA Grade Assessment: II - A patient with mild systemic disease. After reviewing the risks and benefits, the patient was deemed in satisfactory condition to undergo the procedure. The anesthesia plan was to use monitored anesthesia care (MAC). Immediately prior to administration of medications, the patient was re-assessed for adequacy to receive sedatives. The heart rate, respiratory rate, oxygen saturations, blood pressure, adequacy of pulmonary ventilation, and response to care were monitored throughout the procedure. The physical status of the patient was re-assessed after the procedure. After I obtained informed consent, the scope was passed under direct vision. Throughout the procedure, the patient's blood pressure, pulse, and oxygen saturations were monitored continuously. The Colonoscope was introduced through the anus and advanced to the cecum, identified by appendiceal orifice and ileocecal valve. The colonoscopy was performed without difficulty. The patient tolerated the procedure well. The quality of the bowel preparation was fair. The ileocecal valve, appendiceal orifice, and rectum were photographed. Scope In: 8:13:31 AM Scope Withdrawal Time 0 hours 5 minutes 12 seconds Scope Out: 8:34:21 AM Total Procedure Duration Time 0 hours 20 minutes 50 seconds Findings: The perianal and digital rectal examinations were normal. Scattered small and large-mouthed diverticula were found in the entire colon. Two medium-sized localized angiodysplastic lesions with bleeding were found in the rectum and in the cecum. Coagulation for hemostasis using monopolar probe was successful. Estimated blood loss was minimal. A large amount of stool was found in the rectum, in the recto-sigmoid colon, in the sigmoid colon, in the descending colon, at the splenic flexure and in the cecum. Four sessile polyps were found in the sigmoid colon, splenic flexure, hepatic flexure and cecum. The polyps were 15 mm in size. These polyps were removed with a hot snare. Resection and retrieval were complete. Verification of patient identification for the specimen was done. Estimated blood loss was minimal. A tattoo was seen in the transverse colon and at the hepatic flexure. The tattoo site appeared normal. Impression: - Preparation of the colon was fair. - Diverticulosis in the entire examined colon. - Two bleeding colonic angiodysplastic lesions. Treated with a monopolar probe. - Stool in the rectum, in the recto-sigmoid colon, in the sigmoid colon, in the descending colon, at the splenic flexure and in the cecum. - Four 15 mm polyps in the sigmoid colon, at the splenic flexure, at the hepatic flexure and in the cecum, removed with a hot snare. Resected and retrieved. - A tattoo was seen in the transverse colon and at the hepatic flexure. The tattoo site appeared normal. Recommendation: - [facility]. - Resume regular diet. - Continue present medications. - Await pathology results. - Repeat colonoscopy because the bowel preparation was poor. Procedure Code(s): --- Professional --- 03414, 59, Colonoscopy, flexible; with control of bleeding, any method 02566, Colonoscopy, flexible; with removal of tu (more content not included)... Normal [facility] Eosinophil percentageOrdered By: Brayden Abdullahi on 11-30-2024 Eosinophils/100 WBC (Bld) 7.5 % High 0-5 [facility] Erythrocyte distribution wid th ratioOrdered By: Brayden Abdullahi on 11-30-2024 Erythrocyte distribution width (RBC) [Ratio] 12.5 % 11.6-14.6 [facility] Erythrocyte distribution wid th standard deviationOrdered By: Brayden Abdullahi on 11-30-2024 Erythrocyte distribution width (RBC) [Ratio] 45.5 fl High 35.1-43.9 [facility] Glomerular filtration rate ( GFR) estimation/1.73 sq m using serum, plasma, or whole bOrdered By: Brayden Abdullahi on 11-30-2024 GFR/1.73 sq M.predicted among non-blacks MDRD (S/P/Bld) [Vol rate/Area] 94 mL/min/{1.73_m2} >60 [facility] Comment on above: mL/min/1.73m2 CKD-EP I Creatinine Equation (2020) Hematocrit Auto (Bld) [Volum e fraction]Ordered By: Brayden Abdullahi on 11-30-2024 Hematocrit (Bld) [Volume fraction] 26.0 % Low 37-47 [facility] Hemoglobin measurementOrdere d By: Brayden Abdullahi on 11-30-2024 Hemoglobin (Bld) [Mass/Vol] 8.1 g/dL Low 12.0-15.0 [facility] Immature granulocytes/100 WB C Auto (Bld)Ordered By: Brayden Abdullahi on 11-30-2024 Immature granulocytes/100 WBC (Bld) 0.200 % 0.0-0.9 [facility] Comment on above: IG% - Immature Granu locytes (promyelocytes, myelocytes and metamyelocytes) > 1% indicates that a LEFT SHIFT is Present. International normalized rat io (INR) calculationOrdered By: Hero Valladares on 11-30-2024 INR Coag (Bld) [Relative time] 1.0 {INR} [facility] MCV (mean corpuscular volume ) determinationOrdered By: Brayden Abdullahi on 11-30-2024 MCV (RBC) [Entitic vol] 98.9 fL 81-99 [facility] MR/CON.PCMArielle 11-30-2024 MR/CON.PCM.GI [facility] Medical Records Department [address] [place] [address] Consultation - GI 11/30/24 0746 MR#: [id number] Acct: [id number] Name: MERNA WEBSTER Rep #: [id number] : 1940 84 From: Eric Salazar DO PCP: Dr. Сергей Espinoza MD Status:ADM IN Location: [facility] [id number] HPI Consult Data Date of Consult: 11/30/24 HPI Narrative Reason for Consultation: GI bleed HPI Narrative: MERNA WEBSTER, is a 84 F who presented to the ED with lower GI bleeding. She has a past medical history of pulmonary fibrosis on 3 L of O2 chronically, hypertension, hypothyroidism, GERD, anxiety who presented [facility] ED 11/27/2024 with rectal bleeding. She admits to recently constipated and passed hard stool and then this morning noticed she had bright red blood per rectum. She had to wipe multiple times but the bleeding lessened however due to the blood skilled nursing wanted to send her to the ED however she wanted to wait but then she had another bowel movement with bright red blood mixed in. Reported feeling little lightheaded but no other acute complaints. In the ED temp 97.8, heart rate 72, blood pressure 135/67, respiratory 18 pulse ox 100% on 3 L nasal cannula. She did have positive orthostats with blood pressure 131/63 down to 109/57 on standing. CBC with white count 6.5 and hemoglobin 8.5 similar to CBC in August of this year BMP with a sodium of 132, bicarb 33, BUN of 12 and a creatinine of 0.82. Patient had no further episodes in the ED but she did have anoscopy which showed large clot with some amount of blood above the scope. I was asked to see her for lower GI bleeding [facility] Medical History Migraine Psoriasis Depression Osteoporosis Primary insomnia Hyperlipidemia Hypothyroidism Obstructive sleep apnea (adult) (pediatric) Mild persistent asthma, uncomplicated Unspecified abnormalities of gait and mobility Difficulty in walking, not elsewhere classified Muscle wasting and atrophy, not elsewhere classified, left lower leg Muscle wasting and atrophy, not elsewhere classified, right lower leg Chronic respiratory failure with hypoxia Seasonal allergies Anemia High cholesterol GERD (gastroesophageal reflux disease) HTN (hypertension) Anxiety Pulmonary fibrosis Home Medications ???Medication ???Instructions ???Recorded ???Last Taken ???Type acetaminophen 500 mg tablet 500 mg PO Q6H PRN fever or pain Unknown History (Tylenol Extra Strength) albuterol sulfate 90 mcg/actuation 2 puff inhalation Q6H PRN Unknown History aerosol inhaler (Ventolin HFA) shortness of breath or wheezing famotidine 20 mg tablet 20 mg PO QDAY 11/03/24 11/27/24 Hi story fexofenadine 180 mg tablet 180 mg PO QDAY PRN allergy symptom s 11/03/24 Unknown History gabapentin 100 mg capsule 100 mg PO TID 11/03/24 11/27/24 06 :00 History guaifenesin 600 mg tablet, 600 mg PO DAILY 11/03/24 11/27/24 History extended release 12 hr (Mucinex) levothyroxine 75 mcg tablet 37.5 mcg PO QDAY 11/03/24 11/27/24 History (Levo-T) magnesium hydroxide 400 mg/5 mL 30 ml PO ONCE PRN stomach upset Unknown History oral suspension (Milk of Magnesia) nortriptyline 50 mg capsule 100 mg PO QHS 11/03/24 11/26/24 Hi story ondansetron 4 mg disintegrating 4 mg PO Q6H PRN nausea and vomitin g 11/03/24 Unknown History tablet pantoprazole 40 mg tablet,delayed 40 mg PO Q12H 11/03/24 11/27/24 1 0:00 History release pravastatin 40 mg tablet 40 mg PO QDAY 11/03/24 11/26/24 Hi story psyllium husk 2.6 gram/4.1 gram 1 tbsp PO ONCE 11/03/24 11/27/24 H istory oral powder sennosides 8.6 mg tablet (senna) 8.6 mg PO QDAY 11/03/24 11/27/24 H istory sumatriptan succinate 100 mg tablet See Rx Instructions PO .COMPLEX 11/03/24 11/26/24 History verapamil 240 mg 24 hr 240 mg PO BID 11/03/24 11/27/24 Hi story capsule,extended release alprazolam 1 mg tablet 1 mg PO TID anxiety 30 days #90 11/27/24 06:00 Rx tabs clonidine 0.2 mg/24 hr weekly 1 patch topical QWEEK 11/27/24 Unk nown History transdermal patch gabapentin 100 mg capsule 200 mg PO QHS 11/27/24 11/26/24 Hi story hydralazine 25 mg tablet 25 mg PO Q8H PRN sbp>150 11/27/24 Unknown History lidocaine HCl 4 % topical cream 1 applic topical .COMPLEX pain 11/26/24 History (Aspercreme (lidocaine HCl)) metoprolol succinate 25 mg 25 mg PO DAILY 11/27/24 11/27/24 H istory tablet,extended release 24 hr mometasone 200 mcg/actuation HFA 2 puff inhalation BID 11/27/24 History aerosol inhaler (Asmanex HFA) natural ears 1 gtt EACH EAR QHS PRN ear pain Unknown History pirfenidone 801 mg tablet 801 mg PO TID 11/27/24 11/27/24 06 :00 History (more content not included)... Normal [facility]/OP[facility] Medical Records Department [id number] [place] [address] Physician Letter MR#: [id number] Acct: [id number] Name: MERNA WEBSTER Rep #: [id number] : 1940 84 From: Eric Salazar DO PCP: Dr. Сергей Espinoza MD Status:ADM IN 11/30/2024 Сергей Espinoza Md Re : Colonoscopy procedure for Merna Webster Maritar Lucina This procedure was performed on Saturday, November 30, 2024. My impressions and recommendations are as follows: Impressions : - Preparation of the colon was fair. - Diverticulosis in the entire examined colon. - Two bleeding colonic angiodysplastic lesions. Treated with a monopolar probe. - Stool in the rectum, in the recto-sigmoid colon, in the sigmoid colon, in the descending colon, at the splenic flexure and in the cecum. - Four 15 mm polyps in the sigmoid colon, at the splenic flexure, at the hepatic flexure and in the cecum, removed with a hot snare. Resected and retrieved. - A tattoo was seen in the transverse colon and at the hepatic flexure. The tattoo site appeared normal. Recommendations : - [facility]. - Resume regular diet. - Continue present medications. - Await pathology results. - Repeat colonoscopy because the bowel preparation was poor. My findings are described in the full procedure note, which is enclosed. If I can be of further assistance, please feel free to contact me at . Sincerely, Eric Salazar DO 11/30/2024 8:53:10 AM This report has been signed electronically. 11/30/2453 Date Eric Salazar DO Cosigner Signature: Date (if indicated) CC: JEREMIAH Buckner; JEREMIAH Wright; Dr. Weston Choudhary MD; Dr. Сергей Espinoza MD; Dr. Brayden Abdullahi MD; Dr. Mariela Lilly MD; Dr. Johan Adam MD; JADA Wood; Eric Salazar DO Date Dictated: 11/30/24 075 Date Transcribed: French Instructor: TYREL Signed [facility] MR/POSTOP.[facility] 11-30-2024 MR/POSTOP.[facility] Medical Records Department [address] [place] [address] Anesthesia Postop Eval I 11/30/24 0848 MR#: [id number] Acct: [id number] Name: MERNA WEBSTER Rep #: [id number] : 1940 84 From: Dwain Kapoor PCP: Dr. Сергей Espinoza MD Status:ADM IN Y Race: C Location: [place] [address] Anesthesia: Postop Eval I Current Vital Signs Temperature: 98.3 F Pulse Rate: 83 Blood Pressure: 120/56 Respiratory Rate: 16 Pulse Ox: 99 Oxygen Delivery Method: Room Air Assessment Airway patent: Yes Spontaneous unlabored respirations: Yes Mental status: Awake and Calm nausea: No Vomiting: No Anesthesia Complication: No Fluid Hydration Crystalloid volume administer (ml): 500 Total IV fluid infused: 500 Progress Note Anesthesia document: Postop Eval 1 completed: Yes 11/30/2448 Date Dwain Marquez Signature: Date CC: Signed Normal [facility] MR/NSROUBUP3yx 11-30-2024 [id number] Medical Records Department [address] [place] [address] Anesthesia Postop Eval II 11/30/24924 MR#: [id number] Acct: [id number] Name: MERNA WEBSTER Rep #: [id number] : 1940 84 From: Hero Valladares MD PCP: Dr. Сергей Espinoza MD Status:ADM IN Y Race: C Location: [place] [address] Anesthesia Postop Eval I Sum Postop Eval Completion status Anesthesia document: Postop Eval 1 completed: Yes Anesthesia Postop Eval I Summary Anesthesia Postop Eval I Summary: Anesthesia Postop Eval I: Assessment Summary Airway patent Yes 11/30/24 08:48 [email or web address] Spontaneous unlabored Yes 11/30/24 08:48 [email or web address] respirations Mental status Awake,Calm 11/30/24 08:48 [email or web address] nausea No 11/30/24 08:48 [email or web address] Vomiting No 11/30/24 08:48 [email or web address] Anesthesia Postop Eval I: Fluid Summary Crystalloid volume administer 500 11/30/24 08:48 [email or web address] (ml) Colloids volume administered ( ml) Blood Product volume administered (ml) Total IV fluid infused 500 11/30/24 08:48 [email or web address] Anesthesia Postop Eval I: Summary Notes Anesthesia Complication No 11/30/24 08:48 [email or web address] Anesthesia Complication Comment: Post-operative progress note Anesthesia: Postop Eval II Evaluation Mental status: Awake and Calm Pain Level: 0 nausea: No Vomiting: No Complications Anesthesia Complication: No 11/30/24924 Date Hero Valladares MD Cosigner Signature: Date CC: Signed Normal [facility] Mean corpuscular hemoglobin (MCH) determinationOrdered By: Brayden Abdullahi on 11-30-2024 MCH (RBC) [Entitic mass] 30.8 pg 27.0-32.0 [facility] Mean corpuscular hemoglobin concentration (MCHC) determinationOrdered By: Brayden Abdullahi on 11-30-2024 MCHC (RBC) [Mass/Vol] 31.2 g/dL Low 32-36 [facility] Mean platelet volume determi nationOrdered By: Brayden Abdullahi on 11-30-2024 Platelet mean volume (Bld) [Entitic vol] 9.4 fL 6.2-12.0 [facility] Monocyte percentageOrdered B y: Brayden Abdullahi on 11-30-2024 Monocytes/100 WBC (Bld) 8.6 % 0-10 [facility] Neutrophil percentageOrdered By: Brayden Abdullahi on 11-30-2024 Neutrophils/100 WBC (Bld) 67.9 % 47-70 [facility] Nucleated red blood cell per centageOrdered By: Brayden Abdullahi on 11-30-2024 Nucleated RBC/100 WBC (Bld) [Ratio] 0 % 0-5 [facility] Partial Thromboplast Timeon 11-30-2024 aPTT Coag (Bld) [Time] 26.3 s Normal 24.1-36.2 [facility] Comment on above: Order Comment: Comme nts: pre-surgery Performed By: #### L 300.4310, L501.9520, L300.3900 #### [facility] Laboratory [address] [place], [address] Platelet countOrdered By: Ayde Abdullahi on 11-30-2024 Platelets (Bld) [#/Vol] 191 10*3/uL 150-450 [facility] Potassium measurement (mass/ volume)Ordered By: Brayden Abdullahi on 11-30-2024 Potassium (Unsp spec) [Mass/Vol] 4.0 mmol/L 3.3-5.1 [facility] Prothrombin Time w/INRon INR Coag (PPP) [Relative time] 1.0 {INR} Normal [facility] Comment on above: Order Comment: Comme nts: pre-surgery Performed By: #### L 300.4310, L501.9520, L300.3900 #### [facility] [address] [place], [address] PT Coag (PPP) [Time] 13.2 s Normal 11.7-14.9 [facility] Comment on above: Order Comment: Comme nts: pre-surgery Performed By: #### L 300.4310, L501.9520, L300.3900 #### [facility] [address] [place], [address] Prothrombin timeOrdered By: Hero Valladares on 11-30-2024 PT Coag (PPP) [Time] 13.2 s 11.7-14.9 [facility] RBC Auto (Bld) [#/Vol]Ordere d By: Brayden Abdullahi on 11-30-2024 RBC (Bld) [#/Vol] 2.63 10*6/uL Low 4.2-5.4 [facility] Serum creatinine measurement (mass/volume)Ordered By: Brayden Abdullahi on 11-30-2024 Creatinine [Mass/Vol] 0.48 mg/dL Low 0.70-1.20 [facility] Serum glucose measurement (m ass/volume)Ordered By: Brayden Abdullahi on 11-30-2024 Glucose [Mass/Vol] 90 mg/dL 70-99 [facility] Serum or plasma calcium bipin urement (mass/volume)Ordered By: Brayden Abdullahi on 11-30-2024 Calcium [Mass/Vol] 8.9 mg/dL 7.6-11.0 [facility] Serum or plasma urea nitroge n measurement (mass/volume)Ordered By: Brayden Abdullahi on 11-30-2024 Urea nitrogen [Mass/Vol] 11 mg/dL 4-19 [facility] Sodium levelOrdered By: Giovanny Abdullahi on 11-30-2024 Sodium [Moles/Vol] 139 mmol/L 133-145 [facility] Surgery Specimen Level Enrrique 11-30-2024 Surgery Specimen Level IV Patient Age/Sex Location Account Attending Physician MERNA WEBSTER 84/F [facility] [id number] Dr. Weston Choudhary MD Specimen: [id number] Received: 11/30/24 Status: SEJAL Renner Num: [id number] Spec Type: COLON BX Subm Dr: DO KOJO Crain OPERATION: Colonoscopy with polypectomy PRE-OP DIAGNOSIS: Bright red blood per rectum, anemia TISSUE SUBMITTED: A- Splenic flexure polyp, B- Hepatic flexure polyp, C- Ascending colon polyp, D- Cecal polyp MICROSCOPIC DIAGNOSIS A. Splenic flexure, polyp, biopsy: * Tubular adenoma. B. Hepatic flexure, polyp, biopsy: * Tubular adenoma. C. Ascending colon, polyp, biopsy: * Tubular adenoma. D. Cecum, polyp, biopsy: * Tubulovillous adenoma. * The assessable surgical margin appears free of dysplasia. MICROSCOPIC DESCRIPTION Slides are reviewed. GROSS DESCRIPTION A. Received in fixative is one container labeled with the patient's name and designated Splenic flexure polyp." The specimen consists of one irregular fragment of fontenot tissue that measures 0.6 cm, admixed with flocculent material. The specimen is totally submitted in one cassette. B. Received in fixative is one container labeled with the patient's name and designated Hepatic flexure polyp." The specimen consists of one irregular fragment of fontenot tissue that measures 0.4 cm. The specimen is totally submitted in one cassette. C. Received in fixative is one container labeled with the patient's name and designated Ascending colon polyp." The specimen consists of two irregular fragments of fontenot tissue that measure 0.3 and 0.5 cm, admixed with flocculent material. The specimen is totally submitted in one cassette. D. Received in fixative is one container labeled with the patient's name and designated "Cecal polyp." The specimen consists of a 0.8 x 0.6 x 0.6 cm pink-red granular polyp. The resection margin is inked green. The polyp is serially sectioned. Entirely submitted in 1 cassette. [place] 11/30/2024 Patient Age/Sex Location Account Attending Physician MERNA WEBSTER 84/F [place] [id number] Dr. Weston Choudhary MD CPT:50519a8 Patient Age/Sex Location Account Attending Physician JOYMERNA 84/F [facility] [id number] Dr. Weston Choudhary MD Signed (signature on file) Dr. Della Melendrez MD 12/02/241742 Normal [facility] Comment on above: Performed By: #### P SUIV ####[facility] [address] [place], [address] TSH DL <= 0.005 mIU/L QnOrde red By: Hero Valladares on 11-30-2024 TSH Qn 2.440 uIU/mL 0.300-4.200 [facility] Thyroid Stim Hormone (TSH)on 11-30-2024 TSH 2.440 uIU/mL Normal 0.300-4.200 [facility] Comment on above: Order Comment: Comme nts: pre-surgery Performed By: #### L 300.4310, L501.9520, L300.3900 #### [facility] Laboratory [address] [place], [address] White blood cell (WBC) count Ordered By: Brayden Abdullahi on 11-30-2024 WBC (Bld) [#/Vol] 8.6 10*3/uL 4.4-11.0 [facility] CBC W/Diff, Automatedon 09-3 0-2024 Absolute Lymph 1.43 X10 3/uL Normal 0.83-4.51 [facility] Comment on above: Performed By: #### L 100.0100 ####[facility] [address] [place], [address] Absolute Neut 4.2 X10 3/uL Normal 2.0-7.7 [facility] Comment on above: Performed By: #### L 100.0100 ####[facility] [address] [place], [address] Basophils/100 WBC (Bld) 0.9 % Normal 0-1 [facility] Comment on above: Performed By: #### L 100.0100 ####[facility] [address] [place], [address] Eosinophils/100 WBC (Bld) 9.3 % High 0-5 [facility] Comment on above: Performed By: #### L 100.0100 ####[facility] [address] [place], [address] Erythrocyte distribution width (RBC) [Ratio] 12.5 % Normal 11.6-14.6 [facility] Comment on above: Performed By: #### L 100.0100 ####[facility] [address] [place], [address] Hematocrit (Bld) [Volume fraction] 25.7 % Low 37-47 [facility] Comment on above: Performed By: #### L 100.0100 ####[facility] [address] [place], [address] Hemoglobin (Bld) [Mass/Vol] 7.9 g/dL Low 12.0-15.0 [facility] Comment on above: Performed By: #### L 100.0100 ####[facility] [address] [place], [address] IG% 0.300 Normal 0.0-0.9 [facility] Comment on above: Result Comment: IG% - Immature Granulocytes (promyelocytes, myelocytes and metamyelocytes) > 1% indicates that a LEFT SHIFT is Present. Performed By: #### L 100.0100 ####[facility] [address] [place], [address] Lymphocytes/100 WBC (Bld) 20.4 % Normal 19-41 [facility] Comment on above: Performed By: #### L 100.0100 ####[facility] [address] [place], [address] MCH (RBC) [Entitic mass] 31.0 pg Normal 27.0-32.0 [facility] Comment on above: Performed By: #### L 100.0100 ####[facility] [address] [place], [address] MCHC (RBC) [Mass/Vol] 30.7 g/dL Low 32-36 [facility] Comment on above: Performed By: #### L 100.0100 ####[facility] [address] [place], [address] MCV (RBC) [Entitic vol] 100.8 fL High 81-99 [facility] Comment on above: Performed By: #### L 100.0100 ####[facility] [address] [place], [address] Monocytes/100 WBC (Bld) 9.7 % Normal 0-10 [facility] Comment on above: Performed By: #### L 100.0100 ####[facility] [address] [place], [address] Neutrophils/100 WBC (Bld) 59.4 % Normal 47-70 [facility] Comment on above: Performed By: #### L 100.0100 ####[facility] [address] [place], [address] Nucleated RBC (Bld) [#/Vol] 0 10*3/uL Normal 0-5 [facility] Comment on above: Performed By: #### L 100.0100 ####[facility] [address] [place], [address] Platelet mean volume (Bld) [Entitic vol] 9.5 fL Normal 6.2-12.0 [facility] Comment on above: Performed By: #### L 100.0100 ####[facility] [address] [place], [address] Platelets (Bld) [#/Vol] 179 10*3/uL Normal 150-450 [facility] Comment on above: Performed By: #### L 100.0100 ####[facility] [address] [place], [address] RBC (Bld) [#/Vol] 2.55 10*6/uL Low 4.2-5.4 [facility] Comment on above: Performed By: #### L 100.0100 ####[facility] [address] [place], [address] RDW SD 46.3 fl High 35.1-43.9 [facility] Comment on above: Performed By: #### L 100.0100 ####[facility] [address] [place], [address] WBC (Bld) [#/Vol] 7.0 10*3/uL Normal 4.4-11.0 [facility] Comment on above: Performed By: #### L 100.0100 ####[facility] [address] [place], [address] Basic Metabolic Profile (BMP )on 11-28-2024 BUN/CRE 16.5 RATIO Normal 10-20 [facility] Comment on above: Performed By: #### L 500.2500, L100.0100 ####[facility] [address] [place], [address] Calcium [Mass/Vol] 8.5 mg/dL Normal 7.6-11.0 [facility] Comment on above: Performed By: #### L 500.2500, L100.0100 ####[facility] [address] [place], [address] Chloride [Moles/Vol] 101 mmol/L Normal 98-108 [facility] Comment on above: Performed By: #### L 500.2500, L100.0100 ####[facility] [address] [place], [address] CO2 [Moles/Vol] 32.4 mmol/L High 21.0-32.0 [facility] Comment on above: Performed By: #### L 500.2500, L100.0100 ####[facility] [address] [place], [address] Creatinine [Mass/Vol] 0.59 mg/dL Low 0.70-1.20 [facility] Comment on above: Performed By: #### L 500.2500, L100.0100 ####[facility] [address] [place], [address] ECRCL 42.14 ml/min Low 50-250 [facility] Comment on above: Performed By: #### L 500.2500, L100.0100 ####[facility] [address] [place], [address] GAP 6 Normal 5-15 [facility] Comment on above: Performed By: #### L 500.2500, L100.0100 ####[facility] [address] [place], [address] GFR/1.73 sq M.predicted among non-blacks MDRD (S/P/Bld) [Vol rate/Area] 89 mL/min/{1.73_m2} Normal >60 [facility] Comment on above: Result Comment: mL/m in/1.73m2 CKD-EPI Creatinine Equation (2020) Performed By: #### L 500.2500, L100.0100 ####[facility] [address] [place], [address] Glucose [Mass/Vol] 92 mg/dL Normal 70-99 [facility] Comment on above: Performed By: #### L 500.2500, L100.0100 ####[facility] [address] [place], [address] Potassium [Moles/Vol] 4.1 mmol/L Normal 3.3-5.1 [facility] Comment on above: Performed By: #### L 500.2500, L100.0100 ####[facility] [address] [place], [address] Sodium [Moles/Vol] 139 mmol/L Normal 133-145 [facility] Comment on above: Performed By: #### L 500.2500, L100.0100 ####[facility] [address] [place], [address] Urea nitrogen [Mass/Vol] 10 mg/dL Normal 4-19 [facility] Comment on above: Performed By: #### L 500.2500, L100.0100 ####[facility] [address] [place], [address] CBC W/Diff, Automatedon 09-2 Absolute Lymph 1.35 X10 3/uL Normal 0.83-4.51 [facility] Comment on above: Performed By: #### L 500.2500, L100.0100 ####[facility] [address] [place], [address] Absolute Neut 2.8 X10 3/uL Normal 2.0-7.7 [facility] Comment on above: Performed By: #### L 500.2500, L100.0100 ####[facility] [address] [place], [address] Basophils/100 WBC (Bld) 1.3 % High 0-1 [facility] Comment on above: Performed By: #### L 500.2500, L100.0100 ####[facility] [address] [place], [address] Eosinophils/100 WBC (Bld) 11.3 % High 0-5 [facility] Comment on above: Performed By: #### L 500.2500, L100.0100 ####[facility] [address] [place], [address] Erythrocyte distribution width (RBC) [Ratio] 12.5 % Normal 11.6-14.6 [facility] Comment on above: Performed By: #### L 500.2500, L100.0100 ####[facility] [address] [place], [address] Hematocrit (Bld) [Volume fraction] 26.2 % Low 37-47 [facility] Comment on above: Performed By: #### L 500.2500, L100.0100 ####[facility] [address] [place], [address] Hemoglobin (Bld) [Mass/Vol] 7.9 g/dL Low 12.0-15.0 [facility] Comment on above: Performed By: #### L 500.2500, L100.0100 ####[facility] [address] [place], [address] IG% 0.200 Normal 0.0-0.9 [facility] Comment on above: Result Comment: IG% - Immature Granulocytes (promyelocytes, myelocytes and metamyelocytes) > 1% indicates that a LEFT SHIFT is Present. Performed By: #### L 500.2500, L100.0100 ####[facility] [address] [place], [address] Lymphocytes/100 WBC (Bld) 25.0 % Normal 19-41 [facility] Comment on above: Performed By: #### L 500.2500, L100.0100 ####[facility] [address] [place], [address] MCH (RBC) [Entitic mass] 30.4 pg Normal 27.0-32.0 [facility] Comment on above: Performed By: #### L 500.2500, L100.0100 ####[facility] [address] [place], [address] MCHC (RBC) [Mass/Vol] 30.2 g/dL Low 32-36 [facility] Comment on above: Performed By: #### L 500.2500, L100.0100 ####[facility] [address] [place], [address] MCV (RBC) [Entitic vol] 100.8 fL High 81-99 [facility] Comment on above: Performed By: #### L 500.2500, L100.0100 ####[facility] [address] [place], [address] Monocytes/100 WBC (Bld) 10.0 % Normal 0-10 [facility] Comment on above: Performed By: #### L 500.2500, L100.0100 ####[facility] [address] [place], [address] Neutrophils/100 WBC (Bld) 52.2 % Normal 47-70 [facility] Comment on above: Performed By: #### L 500.2500, L100.0100 ####[facility] [address] [place], [address] Nucleated RBC (Bld) [#/Vol] 0 10*3/uL Normal 0-5 [facility] Comment on above: Performed By: #### L 500.2500, L100.0100 ####[facility] [address] [place], [address] Platelet mean volume (Bld) [Entitic vol] 9.2 fL Normal 6.2-12.0 [facility] Comment on above: Performed By: #### L 500.2500, L100.0100 ####[facility] [address] [place], [address] Platelets (Bld) [#/Vol] 191 10*3/uL Normal 150-450 [facility] Comment on above: Performed By: #### L 500.2500, L100.0100 ####[facility] [address] [place], [address] RBC (Bld) [#/Vol] 2.60 10*6/uL Low 4.2-5.4 [facility] Comment on above: Performed By: #### L 500.2500, L100.0100 ####[facility] [address] [place], [address] RDW SD 45.8 fl High 35.1-43.9 [facility] Comment on above: Performed By: #### L 500.2500, L100.0100 ####[facility] [address] [place], [address] WBC (Bld) [#/Vol] 5.4 10*3/uL Normal 4.4-11.0 [facility] Comment on above: Performed By: #### L 500.2500, L100.0100 ####[facility] [address] [place], [address] HH, Hemoglobin AND Hematocri ton 11-28-2024 Hematocrit (Bld) [Volume fraction] 26.5 % Low 37-47 [facility] Comment on above: Performed By: #### L 100.0600 ####[facility] [address] [place], [address] Hemoglobin (Bld) [Mass/Vol] 8.2 g/dL Low 12.0-15.0 [facility] Comment on above: Performed By: #### L 100.0600 ####[facility] [address] [place], [address] Basic Metabolic Profile (BMP )on 11-27-2024 BUN/CRE 14.8 RATIO Normal 10-20 [facility] Comment on above: Performed By: #### L 100.0100, L500.2500 #### [facility] Laboratory [address] [place], [address] Calcium [Mass/Vol] 8.9 mg/dL Normal 7.6-11.0 [facility] Comment on above: Performed By: #### L 100.0100, L500.2500 #### [facility] Laboratory [address] [place], [address] Chloride [Moles/Vol] 92 mmol/L Low 98-108 [facility] Comment on above: Performed By: #### L 100.0100, L500.2500 #### [facility] Laboratory [address] [place], [address] CO2 [Moles/Vol] 33.1 mmol/L High 21.0-32.0 [facility] Comment on above: Performed By: #### L 100.0100, L500.2500 #### [facility] Laboratory [address] [place], [address] Creatinine [Mass/Vol] 0.82 mg/dL Normal 0.70-1.20 [facility] Comment on above: Performed By: #### L 100.0100, L500.2500 #### [facility] Laboratory [address] [place], [address] ECRCL 45.22 ml/min Low 50-250 [facility] Comment on above: Performed By: #### L 100.0100, L500.2500 #### [facility] Laboratory [address] [place], [address] GAP 7 Normal 5-15 [facility] Comment on above: Performed By: #### L 100.0100, L500.2500 #### [facility] Laboratory [address] [place], [address] GFR/1.73 sq M.predicted among non-blacks MDRD (S/P/Bld) [Vol rate/Area] 71 mL/min/{1.73_m2} Normal >60 [facility] Comment on above: Result Comment: mL/m in/1.73m2 CKD-EPI Creatinine Equation (2020) Performed By: #### L 100.0100, L500.2500 #### [facility] Laboratory [address] [place], [address] Glucose [Mass/Vol] 127 mg/dL High 70-99 [facility] Comment on above: Performed By: #### L 100.0100, L500.2500 #### [facility] Laboratory [address] [place], [address] Potassium [Moles/Vol] 4.1 mmol/L Normal 3.3-5.1 [facility] Comment on above: Performed By: #### L 100.0100, L500.2500 #### [facility] [address] [place], [address] Sodium [Moles/Vol] 132 mmol/L Low 133-145 [facility] Comment on above: Performed By: #### L 100.0100, L500.2500 #### [facility] Laboratory [address] [place], [address] Urea nitrogen [Mass/Vol] 12 mg/dL Normal 4-19 [facility] Comment on above: Performed By: #### L 100.0100, L500.2500 #### [facility] Laboratory [address] [place], [address] CBC W/Diff, Automatedon -2 Absolute Lymph 1.23 X10 3/uL Normal 0.83-4.51 [facility] Comment on above: Performed By: #### L 100.0100, L500.2500 #### [facility] Laboratory [address] [place], [address] Absolute Neut 3.9 X10 3/uL Normal 2.0-7.7 [facility] Comment on above: Performed By: #### L 100.0100, L500.2500 #### [facility] Laboratory [address] [place], [address] Basophils/100 WBC (Bld) 0.9 % Normal 0-1 [facility] Comment on above: Performed By: #### L 100.0100, L500.2500 #### [facility] [address] [place], [address] Eosinophils/100 WBC (Bld) 10.4 % High 0-5 [facility] Comment on above: Performed By: #### L 100.0100, L500.2500 #### [facility] Laboratory [address] [place], [address] Erythrocyte distribution width (RBC) [Ratio] 12.4 % Normal 11.6-14.6 [facility] Comment on above: Performed By: #### L 100.0100, L500.2500 #### [facility] Laboratory [address] [place], [address] Hematocrit (Bld) [Volume fraction] 27.7 % Low 37-47 [facility] Comment on above: Performed By: #### L 100.0100, L500.2500 #### [facility] [address] [place], [address] Hemoglobin (Bld) [Mass/Vol] 8.5 g/dL Low 12.0-15.0 [facility] Comment on above: Performed By: #### L 100.0100, L500.2500 #### [facility] [address] [place], [address] IG% 0.500 Normal 0.0-0.9 [facility] Comment on above: Result Comment: IG% - Immature Granulocytes (promyelocytes, myelocytes and metamyelocytes) > 1% indicates that a LEFT SHIFT is Present. Performed By: #### L 100.0100, L500.2500 #### [facility] [address] [place], [address] Lymphocytes/100 WBC (Bld) 18.9 % Low 19-41 [facility] Comment on above: Performed By: #### L 100.0100, L500.2500 #### [facility] Laboratory [address] [place], [address] MCH (RBC) [Entitic mass] 30.9 pg Normal 27.0-32.0 [facility] Comment on above: Performed By: #### L 100.0100, L500.2500 #### [facility] Laboratory [address] [place], [address] MCHC (RBC) [Mass/Vol] 30.7 g/dL Low 32-36 [facility] Comment on above: Performed By: #### L 100.0100, L500.2500 #### [facility] [address] [place], [address] MCV (RBC) [Entitic vol] 100.7 fL High 81-99 [facility] Comment on above: Performed By: #### L 100.0100, L500.2500 #### [facility] Laboratory [address] [place], [address] Monocytes/100 WBC (Bld) 9.5 % Normal 0-10 [facility] Comment on above: Performed By: #### L 100.0100, L500.2500 #### [facility] [address] [place], [address] Neutrophils/100 WBC (Bld) 59.8 % Normal 47-70 [facility] Comment on above: Performed By: #### L 100.0100, L500.2500 #### [facility] Laboratory [address] [place], [address] Nucleated RBC (Bld) [#/Vol] 0 10*3/uL Normal 0-5 [facility] Comment on above: Performed By: #### L 100.0100, L500.2500 #### [facility] Laboratory [address] [place], [address] Platelet mean volume (Bld) [Entitic vol] 9.2 fL Normal 6.2-12.0 [facility] Comment on above: Performed By: #### L 100.0100, L500.2500 #### [facility] Laboratory [address] [place], [address] Platelets (Bld) [#/Vol] 191 10*3/uL Normal 150-450 [facility] Comment on above: Performed By: #### L 100.0100, L500.2500 #### [facility] Laboratory [address] [place], [address] RBC (Bld) [#/Vol] 2.75 10*6/uL Low 4.2-5.4 [facility] Comment on above: Performed By: #### L 100.0100, L500.2500 #### [facility] Laboratory [address] [place], [address] RDW SD 45.8 fl High 35.1-43.9 [facility] Comment on above: Performed By: #### L 100.0100, L500.2500 #### [facility] [address] [place], [address] WBC (Bld) [#/Vol] 6.5 10*3/uL Normal 4.4-11.0 [facility] Comment on above: Performed By: #### L 100.0100, L500.2500 #### [facility] [address] [place], [place], [id number] Emergency Department Summary on 11-27-2024 Emergency Department Summary [facility] Medical Records Department [address] [place] [address] Emergency Department Summary 11/27/24 MR#: [id number] Acct: [id number] Name: MERNA WEBSTER Rep #: [id number] : 1940 84 From: Aime Pina MD PCP: Dr. Сергей Espinoza MD Status:REG ER Location: ED HPI HPI - GI History of Present Illness Chief Complaint: GI Bleed Narrative Narrative: 84-year-old female past medical history of external and internal hemorrhoids, not on blood thinners, hypertension, pulmonary fibrosis on 3 L of oxygen at all times presents with rectal bleeding that began today. She is a nursing home facility. She states that she has been constipated recently and passed hard stool. This morning she had bright red blood per rectum. She states she had to wipe multiple times but the bleeding lessened. She showed the RN on the toilet paper who wanted to send her immediately to the emergency department. However, patient states that she wanted to wait. She had another bowel movement with bright red blood mixed. She states although she has had history of hemorrhoids she has never had rectal bleeding previously. She feels lightheaded but denies any chest pain or increased shortness of breath over her baseline. No other bleeding diathesis. No nausea or vomiting, no hematemesis. She denies any abdominal pain currently. No recent fevers or chills. [facility] Medical History Migraine Psoriasis Depression Osteoporosis Primary insomnia Hyperlipidemia Hypothyroidism Obstructive sleep apnea (adult) (pediatric) Mild persistent asthma, uncomplicated Unspecified abnormalities of gait and mobility Difficulty in walking, not elsewhere classified Muscle wasting and atrophy, not elsewhere classified, left lower leg Muscle wasting and atrophy, not elsewhere classified, right lower leg Chronic respiratory failure with hypoxia Seasonal allergies Anemia High cholesterol GERD (gastroesophageal reflux disease) HTN (hypertension) Anxiety Pulmonary fibrosis Home Medications ???Medication ???Instructions ???Recorded ???Last Taken ???Type acetaminophen 500 mg tablet 500 mg PO Q6H PRN fever or pain Unknown History (Tylenol Extra Strength) albuterol sulfate 90 mcg/actuation 2 puff inhalation Q6H PRN Unknown History aerosol inhaler (Ventolin HFA) shortness of breath or wheezing famotidine 20 mg tablet 20 mg PO QDAY 11/03/24 Unknown His tory fexofenadine 180 mg tablet 180 mg PO QDAY PRN allergy symptom s 11/03/24 Unknown History gabapentin 100 mg capsule 100 mg PO TID 11/03/24 Unknown His tory guaifenesin 600 mg tablet, 600 mg PO DAILY 11/03/24 Unknown H istory extended release 12 hr (Mucinex) levothyroxine 75 mcg tablet 37.5 mcg PO QDAY 11/03/24 Unknown History (Levo-T) magnesium hydroxide 400 mg/5 mL 30 ml PO ONCE PRN stomach upset Unknown History oral suspension (Milk of Magnesia) nortriptyline 50 mg capsule 100 mg PO QHS 11/03/24 Unknown His tory ondansetron 4 mg disintegrating 4 mg PO Q6H PRN nausea and vomitin g 11/03/24 Unknown History tablet pantoprazole 40 mg tablet,delayed 40 mg PO Q12H 11/03/24 Unknown Hi story release pravastatin 40 mg tablet 40 mg PO QDAY 11/03/24 Unknown His tory psyllium husk 2.6 gram/4.1 gram 1 tbsp PO ONCE 11/03/24 Unknown Hi story oral powder sennosides 8.6 mg tablet (senna) 8.6 mg PO QDAY 11/03/24 Unknown Hi story sumatriptan succinate 100 mg tablet See Rx Instructions PO .COMPLEX 11/03/24 Unknown History verapamil 240 mg 24 hr 240 mg PO BID 11/03/24 Unknown His tory capsule,extended release alprazolam 1 mg tablet 1 mg PO TID anxiety 30 days #90 Unknown Rx tabs clonidine 0.2 mg/24 hr weekly 1 patch topical QWEEK 11/27/24 Unk nown History transdermal patch gabapentin 100 mg capsule 200 mg PO QHS 11/27/24 Unknown His tory hydralazine 25 mg tablet 25 mg PO Q8H PRN sbp>150 11/27/24 Unknown History lidocaine HCl 4 % topical cream 1 applic topical .COMPLEX pain Unknown History (Aspercreme (lidocaine HCl)) metoprolol succinate 25 mg 25 mg PO DAILY 11/27/24 Unknown Hi story tablet,extended release 24 hr mometasone 200 mcg/actuation HFA 2 puff inhalation BID 11/27/24 Unk nown History aerosol inhaler (Asmanex HFA) natural ears 1 gtt EACH EAR QHS PRN ear pain Unknown History pirfenidone 801 mg tablet 801 mg PO TID 11/27/24 Unknown His tory Allergy/AdvReac Type Severity Reaction Status Date / Time amoxicillin Allergy Mild PT UNSURE Verified 11/27/24 15:00 OF REACTION aspirin Allergy Mild PALPITATION Verified 11/27/24 15:00 S ibuprofen Allergy Mild Swelling Verified 11/27/24 15:00 montelukast Allergy Mild Rash Ve (more content not included)... Normal [facility] H AND P Exam - Hospitaliston 11-27-2024 H&P Exam - Hospitalist [facility] Medical Records Department [address] [place] [address] H P Exam - Hospitalist 11/27/24 1642 MR#: [id number] Acct: [id number] Name: MERNA WEBSTER Rep #: [id number] : 1940 84 From: Mariela Lilly MD PCP: Dr. Сергей Espinoza MD Status:REG ER Location: ED HPI - General General Date of Admission: 11/27/24 Date of Service: 11/27/24 Chief Complaint: Bright red blood per rectum HPI Narrative MERNA WEBSTER, is a 84-year-old female history of pulmonary fibrosis on 3 L of O2 chronically, hypertension, hypothyroidism, GERD, anxiety who presented [facility] ED 11/27/2024 with rectal bleeding that began today. Recently constipated and passed hard stool and then this morning noticed she had bright red blood per rectum. Had to wipe multiple times but the bleeding lessened however due to the blood skilled nursing wanted to send her to the ED however she wanted to wait but then she had another bowel movement with bright red blood mixed in. Reported feeling little lightheaded but no other acute complaints. In the ED temp 97.8, heart rate 72, blood pressure 135/67, respiratory 18 pulse ox 100% on 3 L nasal cannula. She did have positive orthostats with blood pressure 131/63 down to 109/57 on standing. CBC with white count 6.5 and hemoglobin 8.5 similar to CBC in August of this year BMP with a sodium of 132, bicarb 33, BUN of 12 and a creatinine of 0.82. Patient had no further episodes in the ED but she did have anoscopy which showed large clot with some amount of blood above the scope. Given the above with the positive orthostats and 2 episodes of blood in the stool with anoscopy results hospitalist contacted for admission. Patient evaluated with her niece at bedside, she reports as above with the 2 episodes of bright red blood per rectum, notes that she did briefly feel lightheaded when she was up moving around and got some double vision that completely resolved and has not come back since that time. Denies any abdominal pain, no nausea or vomiting, no changes in urination. Has had some changes in her blood pressure medications several days ago, otherwise denies any acute changes no blood thinners. She has not had any more episodes of blood in her stool in the ED and no further episodes of lightheadedness. Of note patient reports she has a cough with her pulmonary fibrosis and coughs significantly and thinks that may have contributed due to the increased pressure in her abdomen [facility] Medical History Migraine Psoriasis Depression Osteoporosis Primary insomnia Hyperlipidemia Hypothyroidism Obstructive sleep apnea (adult) (pediatric) Mild persistent asthma, uncomplicated Unspecified abnormalities of gait and mobility Difficulty in walking, not elsewhere classified Muscle wasting and atrophy, not elsewhere classified, left lower leg Muscle wasting and atrophy, not elsewhere classified, right lower leg Chronic respiratory failure with hypoxia Seasonal allergies Anemia High cholesterol GERD (gastroesophageal reflux disease) HTN (hypertension) Anxiety Pulmonary fibrosis Home Medications ???Medication ???Instructions ???Recorded ???Last Taken ???Type acetaminophen 500 mg tablet 500 mg PO Q6H PRN fever or pain Unknown History (Tylenol Extra Strength) albuterol sulfate 90 mcg/actuation 2 puff inhalation Q6H PRN Unknown History aerosol inhaler (Ventolin HFA) shortness of breath or wheezing famotidine 20 mg tablet 20 mg PO QDAY 11/03/24 Unknown His tory fexofenadine 180 mg tablet 180 mg PO QDAY PRN allergy symptom s 11/03/24 Unknown History gabapentin 100 mg capsule 100 mg PO TID 11/03/24 Unknown His tory guaifenesin 600 mg tablet, 600 mg PO DAILY 11/03/24 Unknown H istory extended release 12 hr (Mucinex) levothyroxine 75 mcg tablet 37.5 mcg PO QDAY 11/03/24 Unknown History (Levo-T) magnesium hydroxide 400 mg/5 mL 30 ml PO ONCE PRN stomach upset Unknown History oral suspension (Milk of Magnesia) nortriptyline 50 mg capsule 100 mg PO QHS 11/03/24 Unknown His tory ondansetron 4 mg disintegrating 4 mg PO Q6H PRN nausea and vomitin g 11/03/24 Unknown History tablet pantoprazole 40 mg tablet,delayed 40 mg PO Q12H 11/03/24 Unknown Hi story release pravastatin 40 mg tablet 40 mg PO QDAY 11/03/24 Unknown His tory psyllium husk 2.6 gram/4.1 gram 1 tbsp PO ONCE 11/03/24 Unknown Hi story oral powder sennosides 8.6 mg tablet (senna) 8.6 mg PO QDAY 11/03/24 Unknown Hi story sumatriptan succinate 100 mg tablet See Rx Instructions PO .COMPLEX 11/03/24 Unknown History verapamil 240 mg 24 hr 240 mg PO BID 11/03/24 Unknown His tory capsule,extended release alprazolam 1 mg tablet 1 mg PO TID anxiety 30 days #90 0 (more content not included)... [facility] Jamie 11-21-2024 ISABELA Telephone ([facility]) JOYMERNA ([id number]) 1940 F NFR Date Time Provider Department 11/21/24 SONA GRIER [facility] During your visit today, we recorded the following information about you: Indigo Decker, GEOFFREY 11/21/2024 3:06 PM Signed Spoke to patient [...] by: Elisabeth Barber MA - Fully Assessed Prescriptions as of [...] (FLONASE) 50 mcg/actuation nasal spray Use 1 [place] in each nostril once daily. - gabapentin [...] NEEDED FOR WHEEZING/SHORTNESS OF BREATH. - fexofenadine (JENNIFER) 180 mg tablet Take 180 mg by [...] [M16.10] 09/04/2005 Pes anserinus tendinitis or bursitis [TGK1301] 09/04/2005 07/22/2017 PLANTAR FIBROMATOSIS [M72.2] 09/04/2005 Backache, [...] [K21.9] Dysphagia [R13.10] 05/22/2016 01/21/2017 Hypothyroidism [E03.9] 03 (more content not included)... Normal [facility] Bilirubin directOrdered By: Anais Osullivan on 10-18-2024 Bilirubin.direct [Mass/Vol] mg/dL 0.00-0.30 [facility] Bilirubin, totalOrdered By: Anais Osullivan on 10-18-2024 Bilirubin [Mass/Vol] mg/dL 0.00-1.30 [facility] Laboratory - Chemistry and C hemistry - challengeOrdered By: Anais Osullivan on 10-18-2024 AST [Catalytic activity/Vol] 16 U/L <32 [facility] Serum globulin measurementOr dered By: Anais Osullivan on 10-18-2024 Globulin (S) [Mass/Vol] 3.2 g/dL 2.2-4.2 [facility] Serum or plasma alanine hart otransferase (ALT) measurementOrdered By: Anais Osullivan on 10-18-2024 ALT [Catalytic activity/Vol] 6 U/L <35 [facility] Serum or plasma albumin bipin urement (mass/volume)Ordered By: Anais Osullivan on 10-18-2024 Albumin [Mass/Vol] 3.2 g/dL Low 3.4-4.8 [facility] Serum or plasma alkaline roni sphatase measurementOrdered By: Anais Osullivan on 10-18-2024 ALP [Catalytic activity/Vol] 78 U/L 35-104 [facility] TSH DL <= 0.005 mIU/L QnOrde red By: Anais Osullivan on 10-18-2024 TSH Qn 1.850 uIU/mL 0.300-4.200 [facility] Total proteinOrdered By: David rematim Osullivan on 10-18-2024 Protein [Mass/Vol] 6.4 g/dL 5.9-8.4 [facility] Folate [Mass/volume] in Seru m or PlasmaOrdered By: Anais Osullivan on 10-06-2024 Folate [Mass/Vol] 5.34 ng/mL 4.60-34.80 [facility] Vitamin B12 ser/plasOrdered By: Anais Osullivan on 10-06-2024 Cobalamin (Vitamin B12) [Mass/Vol] 571 pg/mL 180-914 [facility] Bilirubin Test strip Ql (U)O rdered By: Stacie Chen on 10-03-2024 Bilirubin Ql (U) Negative Negative [facility] Ketones Test strip Ql (U)Ord ered By: Stacie Chen on 10-03-2024 Ketones Ql (U) Negative Negative [facility] Nitrite Test strip Ql (U)Ord ered By: Stacie Chen on 10-03-2024 Nitrite Ql (U) Negative Negative [facility] Protein Test strip Ql (U)Ord ered By: Stacie Chen on 10-03-2024 Protein Ql (U) 30 mg/dl High Negative [facility] Urine clarityOrdered By: Prashanth Chen on 10-03-2024 Clarity (U) Sl. Cloudy Clear [facility] Urine color determinationOrd ered By: Stacie Chen on 10-03-2024 Color (U) Yellow Yellow [facility] Urine cultureOrdered By: Prashanth Chen on 10-03-2024 Bacteria identified Cx Nom (U) Proteus mirabilis Abnormal [facility] Urine glucose detectionOrder ed By: Stacie Chen on 10-03-2024 Glucose Ql (U) Normal mg/dl Normal [facility] Urine leukocyte esterase det ection by dipstickOrdered By: Stacie Chen on 10-03-2024 Leukocyte esterase Test strip Ql (U) 500 /ul High Negative [facility] Urine pHOrdered By: Stacie Chen on 10-03-2024 pH (U) 6.5 [pH] 5.0 - 8.0 [facility] Urine specific gravity measu rementOrdered By: Stacie Chen on 10-03-2024 Specific gravity (U) [Rel density] 1.010 1.002-1.030 [facility] Urine urobilinogen measureme ntOrdered By: Stacie Chen on 10-03-2024 Urobilinogen Ql (U) Normal mg/dl Normal [facility] Iron measurement (mass/mass) Ordered By: Anais Osullivan on 09-14-2024 Iron (Unsp spec) [Mass/Mass] 48 ug/dL Low 50-170 [facility] No Panel InformationOrdered By: Anais Osullivan on 09-14-2024 Unsaturated Iron Binding Capacity 164 ug/dL Low 228-428 [facility] Serum or plasma ferritin ibis surement (mass/volume)Ordered By: Anais Osullivan on 09-14-2024 Ferritin [Mass/Vol] 71 ng/mL 22-378 [facility] Serum or plasma iron saturat ion measurement (mass fraction)Ordered By: Anais Osullivan on 09-14-2024 Iron saturation [Mass fraction] 22.6 % 13-59 [facility] Comment on above: Previous reported re sult: 23.0 %Edited by: KOJO on 09/14/24:0905 TransferrinOrdered By: Davon Osullivan on 09-14-2024 Transferrin [Mass/Vol] 172 mg/dL 149-313 [facility] Comment on above: Performed at: [address] [id number] Director: Parveen Craias PhD, Phone: [phone] Absolute lymphocyte countOrd ered By: Stacie Chen on 09-13-2024 Lymphocytes Auto (Unsp spec) [#/Vol] 1.67 10*3/uL 0.83-4.51 [facility] Absolute neutrophil countOrd ered By: Stacie Chen on 09-13-2024 Neutrophils (Bld) [#/Vol] 3.6 10*3/uL 2.0-7.7 [facility] Anion gap in Serum or Plasma Ordered By: Stacie Chen on 09-13-2024 Anion gap [Moles/Vol] 7 mmol/L 5-15 [facility] Automated lymphocyte count a s percentage of total leukocytesOrdered By: Stacie Chen on 09-13-2024 Lymphocytes/100 WBC Auto (Unsp spec) 25.2 % 19-41 [facility] BUN/creatinine ratioOrdered By: Stacie Chen on 09-13-2024 Urea nitrogen/Creatinine [Mass ratio] 17.9 mg/mg 10-20 [facility] Basophil percentageOrdered B y: Stacie Chen on 09-13-2024 Basophils/100 WBC (Bld) 0.8 % 0-1 [facility] Carbon dioxide, total [Moles /volume] in Central venous bloodOrdered By: Stacie Chen on 09-13-2024 CO2 [Moles/Vol] 31.9 mmol/L 21.0-32.0 [facility] Chloride assayOrdered By: Richard Chen on 09-13-2024 Chloride [Moles/Vol] 102 mmol/L 98-108 [facility] Eosinophil percentageOrdered By: Stacie Chen on 09-13-2024 Eosinophils/100 WBC (Bld) 9.5 % High 0-5 [facility] Erythrocyte distribution wid th ratioOrdered By: Stacie Chen on 09-13-2024 Erythrocyte distribution width (RBC) [Ratio] 12.8 % 11.6-14.6 [facility] Erythrocyte distribution wid th standard deviationOrdered By: Stacie Chen on 09-13-2024 Erythrocyte distribution width (RBC) [Ratio] 47.5 fl High 35.1-43.9 [facility] Glomerular filtration rate ( GFR) estimation/1.73 sq m using serum, plasma, or whole bOrdered By: Stacie Chen on 09-13-2024 GFR/1.73 sq M.predicted among non-blacks MDRD (S/P/Bld) [Vol rate/Area] 90 mL/min/{1.73_m2} >60 [facility] Comment on above: mL/min/1.73m2 CKD-EP I Creatinine Equation (2020) Hematocrit Auto (Bld) [Volum e fraction]Ordered By: Stacie Chen on 09-13-2024 Hematocrit (Bld) [Volume fraction] 27.4 % Low 37-47 [facility] Hemoglobin measurementOrdere d By: Stacie Chen on 09-13-2024 Hemoglobin (Bld) [Mass/Vol] 8.5 g/dL Low 12.0-15.0 [facility] Immature granulocytes/100 WB C Auto (Bld)Ordered By: Stacie Chen 09-13-2024 Immature granulocytes/100 WBC (Bld) 0.200 % 0.0-0.9 [facility] Comment on above: IG% - Immature Granu locytes (promyelocytes, myelocytes and metamyelocytes) > 1% indicates that a LEFT SHIFT is Present. MCV (mean corpuscular volume ) determinationOrdered By: Stacie Chen on 09-13-2024 MCV (RBC) [Entitic vol] 101.9 fL High 81-99 [facility] Mean corpuscular hemoglobin (MCH) determinationOrdered By: Stacie Chen 09-13-2024 MCH (RBC) [Entitic mass] 31.6 pg 27.0-32.0 [facility] Mean corpuscular hemoglobin concentration (MCHC) determinationOrdered By: Stacie Chen on 09-13-2024 MCHC (RBC) [Mass/Vol] 31.0 g/dL Low 32-36 [facility] Mean platelet volume determi nationOrdered By: Stacie Chen on 09-13-2024 Platelet mean volume (Bld) [Entitic vol] 9.4 fL 6.2-12.0 [facility] Monocyte percentageOrdered B y: Stacie Chen on 09-13-2024 Monocytes/100 WBC (Bld) 10.1 % High 0-10 [facility] Neutrophil percentageOrdered By: Stacie Chen on 09-13-2024 Neutrophils/100 WBC (Bld) 54.2 % 47-70 [facility] Nucleated red blood cell per centageOrdered By: Stacie Chen on 09-13-2024 Nucleated RBC/100 WBC (Bld) [Ratio] 0 % 0-5 [facility] Platelet countOrdered By: Richard Chen on 09-13-2024 Platelets (Bld) [#/Vol] 210 10*3/uL 150-450 [facility] Potassium measurement (mass/ volume)Ordered By: Stacie Chen on 09-13-2024 Potassium (Unsp spec) [Mass/Vol] 4.2 mmol/L 3.3-5.1 [facility] RBC Auto (Bld) [#/Vol]Ordere d By: Stacie Chen on 09-13-2024 RBC (Bld) [#/Vol] 2.69 10*6/uL Low 4.2-5.4 [facility] Serum creatinine measurement (mass/volume)Ordered By: Stacie Chen on 09-13-2024 Creatinine [Mass/Vol] 0.57 mg/dL Low 0.70-1.20 [facility] Serum glucose measurement (m ass/volume)Ordered By: Stacie Chen on 09-13-2024 Glucose [Mass/Vol] 94 mg/dL 70-99 [facility] Serum or plasma calcium bipin urement (mass/volume)Ordered By: Stacie Chen on 09-13-2024 Calcium [Mass/Vol] 8.9 mg/dL 7.6-11.0 [facility] Serum or plasma urea nitroge n measurement (mass/volume)Ordered By: Stacie Chen on 09-13-2024 Urea nitrogen [Mass/Vol] 10 mg/dL 4-19 [facility] Sodium levelOrdered By: Carla Chen on 09-13-2024 Sodium [Moles/Vol] 141 mmol/L 133-145 [facility] White blood cell (WBC) count Ordered By: Stacie Chen on 09-13-2024 WBC (Bld) [#/Vol] 6.6 10*3/uL 4.4-11.0 [facility] Bilirubin directOrdered By: Anais Osullivan on 07-19-2024 Bilirubin.direct [Mass/Vol] 0.08 mg/dL 0.00-0.30 [facility] Bilirubin, totalOrdered By: Anais Osullivan on 07-19-2024 Bilirubin [Mass/Vol] 0.18 mg/dL 0.00-1.30 [facility] Laboratory - Chemistry and C hemistry - challengeOrdered By: Anais Osullivan on 07-19-2024 AST [Catalytic activity/Vol] 18 U/L <32 [facility] Serum globulin measurementOr dered By: Anais Osullivan on 07-19-2024 Globulin (S) [Mass/Vol] 3.5 g/dL 2.2-4.2 [facility] Serum or plasma alanine hart otransferase (ALT) measurementOrdered By: Anais Osullivan on 07-19-2024 ALT [Catalytic activity/Vol] U/L <35 [facility] Serum or plasma albumin bipin urement (mass/volume)Ordered By: Anais Osullivan on 07-19-2024 Albumin [Mass/Vol] 3.3 g/dL Low 3.4-4.8 [facility] Serum or plasma alkaline roni sphatase measurementOrdered By: Anais Osullivan on 07-19-2024 ALP [Catalytic activity/Vol] 69 U/L 35-104 [facility] TSH DL <= 0.005 mIU/L QnOrde red By: Anais Osullivan on 07-19-2024 TSH Qn 3.540 uIU/mL 0.300-4.200 [facility] Total proteinOrdered By: David Osullivan on 07-19-2024 Protein [Mass/Vol] 6.8 g/dL 5.9-8.4 [facility] Absolute lymphocyte countOrd ered By: Stacie Chen on 05-17-2024 Lymphocytes Auto (Unsp spec) [#/Vol] 1.58 10*3/uL 0.83-4.51 [facility] Absolute neutrophil countOrd ered By: Stacie Chen on 05-17-2024 Neutrophils (Bld) [#/Vol] 3.3 10*3/uL 2.0-7.7 [facility] Anion gap in Serum or Plasma Ordered By: Stacie Chen on 05-17-2024 Anion gap [Moles/Vol] 8 mmol/L 5-15 [facility] Automated lymphocyte count a s percentage of total leukocytesOrdered By: Stacie Chen on 05-17-2024 Lymphocytes/100 WBC Auto (Unsp spec) 25.3 % 19-41 [facility] BUN/creatinine ratioOrdered By: Stacie Chen on 05-17-2024 Urea nitrogen/Creatinine [Mass ratio] 16.6 mg/mg 10-20 [facility] Basophil percentageOrdered B y: Stacie Chen on 05-17-2024 Basophils/100 WBC (Bld) 0.8 % 0-1 [facility] Carbon dioxide, total [Moles /volume] in Central venous bloodOrdered By: Stacie Chen on 05-17-2024 CO2 [Moles/Vol] 30.7 mmol/L 21.0-32.0 [facility] Chloride assayOrdered By: Richard Chen on 05-17-2024 Chloride [Moles/Vol] 99 mmol/L 98-108 [facility] Eosinophil percentageOrdered By: Stacie Chen on 05-17-2024 Eosinophils/100 WBC (Bld) 11.4 % High 0-5 [facility] Erythrocyte distribution wid th (RBC) [Ratio]Ordered By: Stacie Chen on 05-17-2024 Erythrocyte distribution width (RBC) [Entitic vol] 46.8 fL High 35.1-43.9 [facility] Erythrocyte distribution wid th ratioOrdered By: Stacie Chen on 05-17-2024 Erythrocyte distribution width (RBC) [Ratio] 13.2 % 11.6-14.6 [facility] Erythrocyte distribution wid th standard deviationOrdered By: Stacie Chen on 05-17-2024 Erythrocyte distribution width (RBC) [Ratio] 46.8 fl High 35.1-43.9 [facility] GFR/1.73 sq M.predicted juanjose g non-blacks MDRD (S/P/Bld) [Vol rate/Area]Ordered By: Stacie Chen on 05-17-2024 Estimated GFR (MDRD) Non-Af Amer 91 >60 [facility] Comment on above: mL/min/1.73m2 CKD-EP I Creatinine Equation (2020) Glomerular filtration rate ( GFR) estimation/1.73 sq m using serum, plasma, or whole bOrdered By: Stacie Chen on 05-17-2024 GFR/1.73 sq M.predicted among non-blacks MDRD (S/P/Bld) [Vol rate/Area] 91 mL/min/{1.73_m2} >60 [facility] Comment on above: mL/min/1.73m2 CKD-EP I Creatinine Equation (2020) Hematocrit Auto (Bld) [Volum e fraction]Ordered By: Stacie Chen on 05-17-2024 Hematocrit (Bld) [Volume fraction] 29.3 % Low 37-47 [facility] Hemoglobin measurementOrdere d By: Stacie Chen on 05-17-2024 Hemoglobin (Bld) [Mass/Vol] 9.1 g/dL Low 12.0-15.0 [facility] Immature granulocytes/100 WB C Auto (Bld)Ordered By: Stacie Chen on 05-17-2024 Immature granulocytes/100 WBC (Bld) 0.200 % 0.0-0.9 [facility] Comment on above: IG% - Immature Granu locytes (promyelocytes, myelocytes and metamyelocytes) > 1% indicates that a LEFT SHIFT is Present. Lymphocytes Auto (Unsp spec) [#/Vol]Ordered By: Stacie Chen on 05-17-2024 Lymphocytes (Bld) [#/Vol] 1.58 10*3/uL 0.83-4.51 [facility] Lymphocytes/100 WBC Auto (Un sp spec)Ordered By: Stacie Chen on 05-17-2024 Lymphocytes/100 WBC (Bld) 25.3 % 19-41 [facility] MCV (mean corpuscular volume ) determinationOrdered By: Stacie Chen on 05-17-2024 MCV (RBC) [Entitic vol] 98.3 fL 81-99 [facility] Mean corpuscular hemoglobin (MCH) determinationOrdered By: Stacie Chen on 05-17-2024 MCH (RBC) [Entitic mass] 30.5 pg 27.0-32.0 [facility] Mean corpuscular hemoglobin concentration (MCHC) determinationOrdered By: Stacie Chen on 05-17-2024 MCHC (RBC) [Mass/Vol] 31.1 g/dL Low 32-36 [facility] Mean platelet volume determi nationOrdered By: Stacie Chen on 05-17-2024 Platelet mean volume (Bld) [Entitic vol] 9.2 fL 6.2-12.0 [facility] Monocyte percentageOrdered B y: Stacie Chen on 05-17-2024 Monocytes/100 WBC (Bld) 9.6 % 0-10 [facility] Neutrophil percentageOrdered By: Stacie Chen on 05-17-2024 Neutrophils/100 WBC (Bld) 52.7 % 47-70 [facility] Nucleated red blood cell per centageOrdered By: Stacie Chen on 05-17-2024 Nucleated RBC/100 WBC (Bld) [Ratio] 0 % 0-5 [facility] Platelet countOrdered By: Richard Chen on 05-17-2024 Platelets (Bld) [#/Vol] 215 10*3/uL 150-450 [facility] Potassium (Unsp spec) [Mass/ Vol]Ordered By: Stacie Chen on 05-17-2024 Potassium [Moles/Vol] 4.2 mmol/L 3.3-5.1 [facility] Potassium measurement (mass/ volume)Ordered By: Stacie Chen on 05-17-2024 Potassium (Unsp spec) [Mass/Vol] 4.2 mmol/L 3.3-5.1 [facility] RBC Auto (Bld) [#/Vol]Ordere d By: Stacie Chen on 05-17-2024 RBC (Bld) [#/Vol] 2.98 10*6/uL Low 4.2-5.4 [facility] Serum creatinine measurement (mass/volume)Ordered By: Stacie Chen on 05-17-2024 Creatinine [Mass/Vol] 0.56 mg/dL Low 0.70-1.20 [facility] Serum glucose measurement (m ass/volume)Ordered By: Stacie Chen on 05-17-2024 Glucose [Mass/Vol] 96 mg/dL 70-99 [facility] Serum or plasma calcium bipin urement (mass/volume)Ordered By: Stacie Chen on 05-17-2024 Calcium [Mass/Vol] 9.3 mg/dL 7.6-11.0 [facility] Serum or plasma urea nitroge n measurement (mass/volume)Ordered By: Stacie Chen on 05-17-2024 Urea nitrogen [Mass/Vol] 9 mg/dL 4-19 [facility] Sodium levelOrdered By: Carla Chen on 05-17-2024 Sodium [Moles/Vol] 138 mmol/L 133-145 [facility] White blood cell (WBC) count Ordered By: Stacie Chen on 05-17-2024 WBC (Bld) [#/Vol] 6.3 10*3/uL 4.4-11.0 [facility] L. pneumophila Ag Ql (U)Orde red By: Anais Osullivan on 04-23-2024 Legionella Antigen [facility] Urine Legionella pneumophila antigen detectionOrdered By: Anais Osullivan on 04-23-2024 L. pneumophila Ag Ql (U) [facility] Bilirubin directOrdered By: Anais Osullivan on 04-19-2024 Bilirubin.direct [Mass/Vol] 0.09 mg/dL 0.00-0.30 [facility] Bilirubin, totalOrdered By: Anais Osullivan on 04-19-2024 Bilirubin [Mass/Vol] 0.20 mg/dL 0.20-1.00 [facility] Comment on above: For patients on eltr ombopag therapy, use of Dimension [place] TBIL is not recommended. Laboratory - Chemistry and C hemistry - challengeOrdered By: Anais Osullivan on 04-19-2024 AST [Catalytic activity/Vol] 19 U/L 15-37 [facility] Serum globulin measurementOr dered By: Anais Osullivan on 04-19-2024 Globulin (S) [Mass/Vol] 4.0 g/dL 2.2-4.2 [facility] Serum or plasma alanine hart otransferase (ALT) measurementOrdered By: Anais Osullivan on 04-19-2024 ALT [Catalytic activity/Vol] 12 U/L Low 13-56 [facility] Serum or plasma albumin bipin urement (mass/volume)Ordered By: Anais Osullivan 04-19-2024 Albumin [Mass/Vol] 2.9 g/dL Low 3.2-5.0 [facility] Serum or plasma alkaline roni sphatase measurementOrdered By: Anais Osullivan 04-19-2024 ALP [Catalytic activity/Vol] 78 U/L 45-117 [facility] Serum or plasma thyroid stim ulating hormone (TSH) measurement (units/volume)Ordered By: Anais Osullivan on 04-19-2024 TSH Qn 3.220 uIU/mL 0.358-3.740 [facility] TSH QnOrdered By: Anais Osullivan on 04-19-2024 Thyroid Stimulating Hormone (TSH) 3.220 uIU/mL 0.358-3.740 [facility] Total proteinOrdered By: David Osullivan on 04-19-2024 Protein [Mass/Vol] 6.9 g/dL 6.4-8.2 [facility] Absolute lymphocyte countOrd ered By: Anais Osullivan on 04-07-2024 Lymphocytes Auto (Unsp spec) [#/Vol] 1.52 10*3/uL 0.83-4.51 [facility] Absolute neutrophil countOrd ered By: Anais Osullivan on 04-07-2024 Neutrophils (Bld) [#/Vol] 2.6 10*3/uL 2.0-7.7 [facility] Automated lymphocyte count a s percentage of total leukocytesOrdered By: Karlshaquille Rameyjoneskenan on 04-07-2024 Lymphocytes/100 WBC Auto (Unsp spec) 27.2 % 19-41 [facility] Basophil percentageOrdered B y: Anais Magallonkenan on 04-07-2024 Basophils/100 WBC (Bld) 1.3 % High 0-1 [facility] Eosinophil percentageOrdered By: estherlimontim Rameyjoneskenan on 04-07-2024 Eosinophils/100 WBC (Bld) 14.5 % High 0-5 [facility] Erythrocyte distribution wid th (RBC) [Ratio]Ordered By: [facility] Os[facility] on 04-07-2024 Erythrocyte distribution width (RBC) [Entitic vol] 47.1 fL High 35.1-43.9 [facility] Erythrocyte distribution wid th ratioOrdered By: [facility] Tanvirjoneskenan on 04-07-2024 Erythrocyte distribution width (RBC) [Ratio] 12.6 % 11.6-14.6 [facility] Erythrocyte distribution wid th standard deviationOrdered By: [facility] Magallonkenan on 04-07-2024 Erythrocyte distribution width (RBC) [Ratio] 47.1 fl High 35.1-43.9 [facility] Folic acid measurementOrdere d By: Karlestherluizatim Rameyjoneskenan on 04-07-2024 Folate 5.30 ng/mL 3.1-55.4 [facility] Hematocrit Auto (Bld) [Volum e fraction]Ordered By: shaquille Osullivan on 04-07-2024 Hematocrit (Bld) [Volume fraction] 28.3 % Low 37-47 [facility] Hemoglobin measurementOrdere d By: estherlimontim Rameyjoneskenan on 04-07-2024 Hemoglobin (Bld) [Mass/Vol] 8.6 g/dL Low 12.0-15.0 [facility] Immature granulocytes/100 WB C Auto (Bld)Ordered By: shaquille Rameyjoneskenan on 04-07-2024 Immature granulocytes/100 WBC (Bld) 0.200 % 0.0-0.9 [facility] Comment on above: IG% - Immature Granu locytes (promyelocytes, myelocytes and metamyelocytes) > 1% indicates that a LEFT SHIFT is Present. Lymphocytes Auto (Unsp spec) [#/Vol]Ordered By: Anais Osullivan on 04-07-2024 Lymphocytes (Bld) [#/Vol] 1.52 10*3/uL 0.83-4.51 [facility] Lymphocytes/100 WBC Auto (Un sp spec)Ordered By: Anais Osullivan on 04-07-2024 Lymphocytes/100 WBC (Bld) 27.2 % 19-41 [facility] MCV (mean corpuscular volume ) determinationOrdered By: Anais Osullivan on 04-07-2024 MCV (RBC) [Entitic vol] 101.1 fL High 81-99 [facility] Mean corpuscular hemoglobin (MCH) determinationOrdered By: Anais Osullivan on 04-07-2024 MCH (RBC) [Entitic mass] 30.7 pg 27.0-32.0 [facility] Mean corpuscular hemoglobin concentration (MCHC) determinationOrdered By: Anais Osullivan on 04-07-2024 MCHC (RBC) [Mass/Vol] 30.4 g/dL Low 32-36 [facility] Mean platelet volume determi nationOrdered By: Anais Osullivan on 04-07-2024 Platelet mean volume (Bld) [Entitic vol] 9.7 fL 6.2-12.0 [facility] Monocyte percentageOrdered B y: Anais Osullivan on 04-07-2024 Monocytes/100 WBC (Bld) 10.4 % High 0-10 [facility] Neutrophil percentageOrdered By: Anais Osullivan on 04-07-2024 Neutrophils/100 WBC (Bld) 46.4 % Low 47-70 [facility] Nucleated red blood cell per centageOrdered By: Anais Osullivan on 04-07-2024 Nucleated RBC/100 WBC (Bld) [Ratio] 0 % 0-5 [facility] Platelet countOrdered By: Karl Osullivan on 04-07-2024 Platelets (Bld) [#/Vol] 199 10*3/uL 150-450 [facility] RBC Auto (Bld) [#/Vol]Ordere d By: Anais Osullivan on 04-07-2024 RBC (Bld) [#/Vol] 2.80 10*6/uL Low 4.2-5.4 [facility] Vitamin B12 measurementOrder ed By: Anais Osullivan on 04-07-2024 Cobalamin (Vitamin B12) [Mass/Vol] 407 pg/mL 211-911 [facility] White blood cell (WBC) count Ordered By: Anais Tanvirtaryn on 04-07-2024 WBC (Bld) [#/Vol] 5.6 10*3/uL 4.4-11.0 [facility] CNPNon 01-25-2024 CNPN Telephone ([facility]) MERNA WEBSTER ([id number]) 1940 F NFR Date Time Provider Department 01/25/24 SONA GRIER [facility] During your visit today, we recorded the following information about you: Lorene Jauregui LPN 01/25/2024 8:30 AM Signed Fax received from [facility] requesting sleep study and office visit notes supporting use of cpap. Sleep study from 2015 as well as office visit notes from 11/28/22 and 09/25/23 faxed to [facility] at [phone]. Transmission successful, paperwork in fax drawer. Indigo Decker, RN 04/18/2024 1:53 PM Signed Spoke to Sona from [facility]. Asking for recent ABG and PFT's [...] (FLONASE) 50 mcg/actuation nasal spray Use 1 [place] in each nostril once daily. - gabapentin [...] NEEDED FOR WHEEZING/SHORTNESS OF BREATH. - fexofenadine (JENNIFER) 180 mg tablet Take 180 mg by [...] [M16.10] 09/04/2005 Pes anserinus tendinitis or bursitis [HIS5816] 09/04/2005 07/22/2017 PLANTAR FIBROMATOSIS [M72.2] 09/04/2005 Backache, unspecified [M54.9] 09/24/2005 04/23/2017 Thoracic or lumbosacral neuritis or radiculitis*09/24/2005 07/22/2017 Pathologic fracture of vertebrae [M84.48XA] 10/13/2005 07/22/2017 Osteoporosis [M81.0] more content not included)... Normal [facility] CNPNon 12-31-2023 CNPN Telephone ([facility]) MERNA WEBSTER ([id number]) 1940 F NFR Date Time Provider Department 12/31/23 SONA GRIER [facility] During your visit today, we recorded the following information about you: Elisabeth Barber MA 12/31/2023 3:23 PM Signed Fax received from [facility] for orders for Oxygen Concentrator and Supplies. E1390,E1392,A4615,A4616 . Dx's J84.11,J96.11, J45.30 AND G47.33. Placed in Dr. Grier's office to be signed. Elsiabeth Barber MA 01/01/2024 5:25 PM Signed Forms faxed back to [facility]. Transmission with forms in drawer. [...] (FLONASE) 50 mcg/actuation nasal spray Use 1 [place] in each nostril once daily. - gabapentin [...] NEEDED FOR WHEEZING/SHORTNESS OF BREATH. - fexofenadine (JENNIFER) 180 mg tablet Take 180 mg by [...] [M16.10] 09/04/2005 Pes anserinus tendinitis or bursitis [CBY7310] 09/04/2005 07/22/2017 PLANTAR FIBROMATOSIS [M72.2] 09/04/2005 Backache, [...] (HCC) [K55.9 (more content not included)... Normal [facility] No Panel Informationon 09-24 [facility] ing [address] [place] [address] Test Date: 2023-09-25 Pat Name: MERNA WEBSTER Department: Room: Gender: Female Fine Grader: : 1940 Requested By: Order Number: [id number] Reading MD: Fatuma Schroeder MD Interpretive Statements [...] 15:43:25 EDT by Fatuma Schroeder MD ID: [id number] Name: MERNA WEBSTER Race: White Ht: 62.60 in Wt: 132.94 lbs Age: 83 Gender: Female : 1940 Dx: Idiopathic interstitial pulmonary disease_ Smoking Hx: Non-smoker Doctor: SONA GRIER Test Date: 09/25/2023 Site: [facility] Tech: Zayra Ceja PRE-BRONCH POST-BRONCH Pre LLN Pred ULN %Pred Post %Pred %Chg SPIROMETRY FVC (L) 1.33 1.63 2.37 3.14 55 FEV1 (L) 1.17 1.21 1.80 2.35 64 FEV1/FVC 0.88 0.64 0.78 0.89 112 PEF L/s (L/sec) 5.59 2.70 4.34 5.98 128 FEF50 (L/sec) 2.91 1.08 2.69 4.30 108 FIF50 (L/sec) 2.85 FEF50/FIF50 1.02 90-100 FIVC (L) 1.22 CJV75-34 (L/sec) 2.41 0.59 1.44 2.75 167 Time [...] standards for DLCO met.//SRB PULMONARY FUNCTION LAB [facility] SPIROMETRY WITH DILATOR IF O BSTRUCTEDon 09-25-2023 DLCO (ml/min/mmHg) 7.98 ml/min/mmHg [facility] DLCO/VA (ml/min/mmHg/L) 4.18 ml/m in/mmHg/ L [facility] ERV BOX (L) 0.22 L [facility] HKU78-04% PRE (L/S) 2.41 L/S [facility] FEV1 PRE (L) 1.17 L [facility] FEV1/FVC PRE (%) 88 % [facility] FRC Box (L) 1.50 L [facility] FVC PRE (L) 1.33 L [facility] IC BOX (L) 0.95 L [facility] PEF PRE (L/S) 5.59 L/S [facility] RV Box (L) 1.29 L [facility] RV/TLC Box (%) 52 % [facility] TLC Box (L) 2.45 L [facility] VA (L) 2.38 L [facility] VC (L) BOX 1.22 L [facility] CBC panel Auto (Bld)on 07-08 Erythrocyte distribution width (RBC) [Ratio] 12.6 % 11.5 - 15.0 % [facility] Hematocrit (Bld) [Volume fraction] 35.6 % Low 36.0 - 46.0 % [facility] Hemoglobin (Bld) [Mass/Vol] 11.1 g/dL Low 11.5 - 15.5 g/dL [facility] Interpretation and review of laboratory results Abnormal [facility] MCH (RBC) [Entitic mass] 32.6 pg 26.0 - 34.0 pg [facility] MCHC (RBC) [Mass/Vol] 31.2 g/dL 30.5 - 36.0 g/dL [facility] MCV (RBC) [Entitic vol] 104.4 fL High 80.0 - 100.0 fL [facility] Nucleated RBC (Bld) [#/Vol] NINF [facility] Platelet mean volume (Bld) [Entitic vol] 9.5 fL 9.0 - 12.7 fL [facility] Platelets (Bld) [#/Vol] 269 10*3/uL [facility] RBC (Bld) [#/Vol] 3.41 10*6/uL Low 3.90 - 5.2 0 m/uL [facility] WBC (Bld) [#/Vol] 7.86 10*3/uL [facility] Comprehensive metabolic 2000 panelon 07-09-2023 Albumin [Mass/Vol] 3.8 g/dL Low 3.9 - 4.9 g/dL [facility] ALP [Catalytic activity/Vol] 90 U/L 34 - 123 U/L [facility] ALT [Catalytic activity/Vol] 11 U/L 7 - 38 U/L [facility] Anion gap [Moles/Vol] 7 mmol/L Low 9 - 18 mmol/L [facility] AST [Catalytic activity/Vol] 28 U/L 13 - 35 U/L [facility] Bilirubin [Mass/Vol] mg/dL Low 0.2 - 1 .3 mg/dL [facility] Calcium [Mass/Vol] 9.1 mg/dL 8.5 - 10. 2 mg/dL [facility] Chloride [Moles/Vol] 95 mmol/L Low 97 - 10 5 mmol/L [facility] CO2 [Moles/Vol] 31 mmol/L High 22 - 30 mmol/L [facility] Creatinine [Mass/Vol] 0.60 mg/dL 0.58 - 0.96 mg/dL [facility] GFR/1.73 sq M.predicted among non-blacks MDRD (S/P/Bld) [Vol rate/Area] 90 mL/min/{1.73_m2} - PINF [facility] Comment on above: Estimated Glomerular Filtration [...] 108 mg/dL High 74 - 99 mg/dL [facility] Comment on above: The [place] Diab[employer] s Association (ADA) provides guidance for [...] Standards of Medical Care in Diabetes 2016, [place] Diabetes [employer]. Diabetes Care. 2016.39(Suppl 1). Interpretation and review of laboratory results Abnormal [facility] Potassium [Moles/Vol] 4.5 mmol/L 3.7 - 5.1 mmol/L [facility] Protein [Mass/Vol] 6.9 g/dL 6.3 - 8.0 g/dL [facility] Sodium [Moles/Vol] 133 mmol/L Low 136 - 144 mmol/L [facility] Urea nitrogen [Mass/Vol] 12 mg/dL 7 - 21 mg/dL [facility] LIPID PANEL, NONFASTINGon Cholesterol [Mass/Vol] 176 mg/dL NINF - 200 mg/dL [facility] Comment on above: <200 mg/dL, Desirabl e 200-239 mg/dL, Borderline high >239 mg/dL, High HDL Cholesterol, Nonfasting 64 mg/dL 39 - PINF mg/dL [facility] Comment on above: 40-59 mg/dL, Accepta ble >59 mg/dL, High: Negative risk factor for coronary heart disease <40 mg/dL, Low: Positive risk factor for coronary heart disease Interpretation and review of laboratory results Normal [facility] LDL Cholesterol, Nonfasting 97 mg/dL NINF - 100 mg/dL [facility] Comment on above: <100 mg/dL, Optimal 100-129 mg/dL, Near optimal/above optimal 130-159 mg/dL, Borderline high 160-189 mg/dL, High >189 mg/dL, Very high Secondary prevention optimal LDL Cholesterol levels are recommended to be < 70 mg/dL LDL/HDL Ratio, Nonfasting 1.52 mg/dL NINF - 2.54 mg/dL [facility] Comment on above: Reference: 1. National Cholesterol Education Program ATP III Guideline At-A-Glance Quick Desk Reference: National Heart, Lung, and Blood [place]. National Institutes of Health. 2001: NIH Publication No. 01-3305. 2. An International Atherosclerosis Society position paper: global recommendations for the management of dyslipidemia: executive summary, Atherosclerosis. 2014: 232(2):410-413. Non HDL Cholesterol, Nonfasting 112 mg/dL NINF - 130 mg/dL [facility] Comment on above: <130 mg/dL, Optimal 130-159 mg/dL, Near optimal/above optimal 160-189 mg/dL, Borderline high 190-219 mg/dL, High >219 mg/dL, Very high Secondary prevention optimal non HDL Cholesterol levels are recommended to be <100 mg/dL Total Chol/HDL Ratio, Nonfasting 2.75 mg/dL NINF - 5.10 mg/dL [facility] Triglycerides, Nonfasting 73 mg/[facility] mg/dL [facility] Comment on above: <150 mg/dL, Normal 150-199 mg/dL, Borderline high 200-499 mg/dL, High >499 mg/dL, Very high VLDL Cholesterol, Nonfasting 15 mg/dL NINF - 30 mg/dL [facility] No Panel Informationon 07-08 [facility] CNOVon 04-23-2023 CNOV Office Visit ([facility] ) MERAN WEBSTER ([id number]) 1940 F NFR Date Time Provider Department 04/23/23 3:00 PM IGOR JOHNSON During your visit today, we recorded the following information about you: Pulse Blood pressure Weight Height 83/minute 160/80 64.2 kg 1.575 m Igor Johnson DO 04/24/2023 9:54 AM Signed [facility] CARDIOLOGY [facility] OUTPATIENT VISIT DATE April 23, 2023 PRIMARY CARE PHYSICIAN: Сергей Espinoza [address] [place] [address] HISTORY OF PRESENT ILLNESS: Ms. Webster is [...] currently alone as her resides in a skilled nursing due to challenges with him having inability [...] vomiting. Endocrine (more content not included)... Normal [facility] 02-17-2023 [facility] Telephone ([facility]) MERNA WEBSTER ([id number]) 1940 F NFR Date Time Provider Department 02/17/23 SONA GRIER [facility] During your visit today, we recorded the [...] (FLONASE) 50 mcg/actuation nasal spray Use 1 [place] in each nostril two times a day. [...] every 4 hours as needed. - fexofenadine (JENNIFER) 180 mg tablet Take 180 mg by [...] Resolved P (more content not included)... Normal [facility] ECHOon 01-29-2023 Echocardiography Echocardiography Report: Transthoracic Echo [facility] Date of service: 01/29/2023 2:02:38 PM Ordering physician: SONA GRIER Indication: Suspected pulmonary hypertension Technologist: Sabine Rubio [facility] Interpreting physician: Darrian Singh MD PATIENT: Name: [...] * * * Final * * * CC [facility] : [id number] ISUID [facility] ECG COMPLETEon 12-08-2022 ECG COMPLETE Ventricular Rate : 8 7 BPM Atrial Rate : 87 BPM P-R Interval : 138 ms QRS Duration : 76 ms Q-T Interval : 368 ms QTC Calculation(Bazett) : 442 ms Calculated P [place] : 28 degrees Calculated R [place] : -17 degrees Calculated T [place] : 26 degrees NORMAL SINUS RHYTHM MINIMAL VOLTAGE CRITERIA FOR LVH, MAY BE NORMAL VARIANT INFERIOR INFARCT , AGE UNDETERMINED POOR R-WAVE PROGRESSION WHEN COMPARED WITH ECG OF 21-DEC-2020 18:39, NO SIGNIFICANT CHANGE WAS FOUND Confirmed by MD SINGH QARAB ([id number]) on 12/08/2022 4:24:11 PM NAME : MERNA WEBSTER PID : [id number] : 1940 Gender : Female Race : ORD : [id number] Procedure Date : Dec 08 2022 14:45:42 Edit Date : Dec 08 2022 16:24:16 Diagnosis: NORMAL SINUS RHYTHM MINIMAL VOLTAGE CRITERIA FOR LVH, MAY BE NORMAL VARIANT INFERIOR INFARCT , AGE UNDETERMINED POOR R-WAVE PROGRESSION WHEN COMPARED WITH ECG OF 21-DEC-2020 18:39, NO SIGNIFICANT CHANGE WAS FOUND Confirmed by MD SINGH QARAB ([id number]) on 12/08/2022 4:24:11 PM Test Reason : Shortness of Breath Location : 0 : CARD Overread By : MD SINGH QARAB Edited By : MD SINGH QARAB Referred By : SONA GRIER Acquired by : Jennyfer Sweeney [facility] No Panel Informationon 11-28 [facility] XR CHEST 2V FRONTAL/LATon XR CHEST [...] be identified it could be easily obscured French Instructor: YURIDIA Transcribe Date/Time: Nov 28 2022 3:00P Dictated by : FLORIN ROSSI DO This examination was interpreted and the report reviewed and electronically signed by: FLORIN ROSSI DO on Nov 28 2022 3:03PM EST [id number] Normal [facility] XR Knee - bilateral 4 Viewso n 10-26-2022 IMPRESSION: Degenerative changes as discussed French Instructor: PSCGil Transcribe Date/Time: Oct 26 2022 1:37P Dictated by : FLORIN ROSSI DO This examination was interpreted and the report reviewed and electronically signed by: FLORIN ROSSI DO on Oct 26 2022 1:38PM EST [facility] * * *Final Report* * * DATE OF EXAM: Oct 24 2022 2:45PM O 5618 - XR KNEE 4V AP/PA/LAT/MERCH RYAN / PROCEDURE REASON: [id number] * * * * Physician Interpretation * [...] Left :No fractures or dislocations are seen. [facility] Provider, Pedro Sarkar - 10/26/2022 * * *Final Report* * * DATE OF EXAM: Oct 24 2022 2:45PM O 5618 - XR KNEE 4V AP/PA/LAT/MERCH RYAN / PROCEDURE REASON: [id number] * * * * Physician Interpretation * [...] seen. IMPRESSION IMPRESSION: Degenerative changes as discussed French Instructor: ROBERTS CHAPELGil Transcribe Date/Time: Oct 26 2022 1:37P Dictated by : FLORIN ROSSI DO This examination was interpreted and the report reviewed and electronically signed by: FLORIN ROSSI DO on Oct 26 2022 1:38PM EST [facility] XR Knee - bilateral 4 ViewsO rdered By: [facility] Provider on 10-26-2022 [facility] XR Shoulder - right 3 Viewso n 10-26-2022 IMPRESSION: Findings as discussed under Results portion of report. French Instructor: [facility] Transcribe Date/Time: Oct 26 2022 1:30P Dictated by : FLORIN ROSSI DO This examination was interpreted and the report reviewed and electronically signed by: FLORIN ROSSI DO on Oct 26 2022 1:37PM [facility] * * *Final Report* * * [...] within the joint space. Marked bony demineralization [facility] Provider, Pedro Sarkar - 10/26/2022 * [...] as discussed under Results portion of report. French Instructor: YURIDIA Transcribe Date/Time: Oct 26 2022 1:30P Dictated by : FLORIN ROSSI DO This examination was interpreted and the report reviewed and electronically signed by: FLORIN ROSSI DO on Oct 26 2022 1:37PM EST [facility] XR Shoulder - right 3 ViewsO rdered By: Ccf Provider on 10-26-2022 [facility] No Panel Informationon 10-24 Radiology Study observation (narrative) [facility] XR KNEE 4V AP/PA/LAT/MERCH B ILon 10-24-2022 XR KNEE 4V AP/PA/LAT/MERCH RYAN * * *Final Report* * * DATE OF EXAM: Oct 24 2022 2:45PM MARY JO [id number] - XR KNEE 4V AP/PA/LAT/MERCH RYAN / PROCEDURE REASON: [id number] * * * * Physician Interpretation * [...] are seen. IMPRESSION: Degenerative changes as discussed French Instructor: YURIDIA Transcribe Date/Time: Oct 26 2022 1:37P Dictated by : FLORIN ROSSI DO This examination was interpreted and the report reviewed and electronically signed by: FLORIN ROSSI DO on Oct 26 2022 1:38PM EST [id number] [facility] XR SHLDR >/=3V AP/FRANCO AP/OTH R RTon [...] as discussed under Results portion of report. French Instructor: Gendel Transcribe Date/Time: Oct 26 2022 1:30P Dictated by : FLORIN ROSSI DO This examination was interpreted and the report reviewed and electronically signed by: FLORIN ROSSI DO on Oct 26 2022 1:37PM EST [id number] Normal [facility] No Panel Informationon 09-03 [facility] CBC panel Auto (Bld)on 08-22 Erythrocyte distribution width (RBC) [Ratio] 12.9 % 11.5 - 15.0 % [facility] Hematocrit (Bld) [Volume fraction] 35.7 % Low 36.0 - 46.0 % [facility] Hemoglobin (Bld) [Mass/Vol] 11.8 g/dL 11.5 - 15.5 g/dL [facility] MCH (RBC) [Entitic mass] 33.5 pg 26.0 - 34.0 pg [facility] MCHC (RBC) [Mass/Vol] 33.1 g/dL 30.5 - 36.0 g/dL [facility] MCV (RBC) [Entitic vol] 101.4 fL High 80.0 - 100.0 fL [facility] Nucleated RBC (Bld) [#/Vol] <0.01 k/uL [facility] Platelet mean volume (Bld) [Entitic vol] 8.7 fL Low 9.0 - 12.7 fL [facility] Platelets (Bld) [#/Vol] 233 10*3/uL 150 - 400 k/uL [facility] RBC (Bld) [#/Vol] 3.52 10*6/uL Low 3.90 - 5.2 0 m/uL [facility] WBC (Bld) [#/Vol] 7.57 10*3/uL 3.70 - 11. 00 k/uL [facility] Comprehensive metabolic 2000 panelon 08-22-2022 Albumin [Mass/Vol] 3.9 g/dL 3.9 - 4.9 g/dL [facility] ALP [Catalytic activity/Vol] 94 U/L 34 - 123 U/L [facility] ALT [Catalytic activity/Vol] 10 U/L 7 - 38 U/L [facility] Anion gap [Moles/Vol] 8 mmol/L Low 9 - 18 mmol/L [facility] AST [Catalytic activity/Vol] 16 U/L 13 - 35 U/L [facility] Bilirubin [Mass/Vol] 0.2 mg/dL 0.2 - 1 .3 mg/dL [facility] Calcium [Mass/Vol] 9.3 mg/dL 8.5 - 10. 2 mg/dL [facility] Chloride [Moles/Vol] 101 mmol/L 97 - 10 5 mmol/L [facility] CO2 [Moles/Vol] 30 mmol/L 22 - 30 mmol/L [facility] Creatinine [Mass/Vol] 0.61 mg/dL 0.58 - 0.96 mg/dL [facility] Estimated Glomerular Filtration Rate 90 mL/min/1.73m >=60 mL/min/1.73m [facility] Glucose [Mass/Vol] 98 mg/dL 74 - 99 mg/dL [facility] Potassium [Moles/Vol] 4.3 mmol/L 3.7 - 5.1 mmol/L [facility] Protein [Mass/Vol] 7.2 g/dL 6.3 - 8.0 g/dL [facility] Sodium [Moles/Vol] 139 mmol/L 136 - 144 mmol/L [facility] Urea nitrogen [Mass/Vol] 11 mg/dL 7 - 21 mg/dL [facility] TSH BLDon 08-22-2022 TSH Qn 2.480 m[IU]/L 0.270 - 4.200 mIU/L [facility] CT CHEST WO IVCONon 07-10-19 CT CHEST WO IVCON * * *Final Report* * * DATE OF EXAM: Jul 09 2022 4:25PM [facility] 0541 - CT CHEST WO IVCON / [...] No abnormality in the imaged upper abdomen. Occupational Psychologist (topogram) images: No additional findings. IMPRESSION: 1. 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 No significant interval change 2. No definite nodules are seen on this study 3. Findings are again compatible with Pulmonary arterial hypertension French Instructor: [facility] Transcribe Date/Time: Jul 16 2022 1:20P Dictated by : FLORIN ROSSI DO This examination was interpreted and the report reviewed and electronically signed by: FLORIN ROSSI DO on Jul 16 2022 1:43PM EST [id number] Normal [facility] XR Pelvis and Hip - right AP and Lateral frogon 05-24-2022 IMPRESSION: Advanced right hip osteoarthritis French Instructor: [facility] Transcribe Date/Time: May 24 2022 1:37P Dictated by : PALOMA MOLINA MD This examination was interpreted and the report reviewed and electronically signed by: PALOMA MOLINA MD on May 24 2022 1:38PM EST [facility] * * *Final Report* * * [...] Sacroiliac joints and symphysis pubis are maintained. [facility] Provider, Pedro Sarkar - 05/24/2022 * * *Final Report* * * DATE OF EXAM: May 22 2022 3:03PM O 5352 - XR HIP 3V PELV+ AP/LAT [...] maintained. IMPRESSION IMPRESSION: Advanced right hip osteoarthritis French Instructor: PSCB Transcribe Date/Time: May 24 2022 1:37P Dictated by : PALOMA MOLINA MD This examination was interpreted and the report reviewed and electronically signed by: PALOMA MOLINA MD on May 24 2022 1:38PM EST [facility] XR Pelvis and Hip - right AP and Lateral frogOrdered By: Ccf Provider on 05-24-2022 [facility] XR HIP 3V PELV+ AP/LAT RTon [...] are maintained. IMPRESSION: Advanced right hip osteoarthritis French Instructor: PSCB Transcribe Date/Time: May 24 2022 1:37P Dictated by : PALOMA MOLINA MD This examination was interpreted and the report reviewed and electronically signed by: PALOMA MOLINA MD on May 24 2022 1:38PM EST [id number] [facility] XR Pelvis and Hip - right AP and Lateral frogon 05-22-2022 Radiology Study observation (narrative) [facility] TSH BLDon 05-08-2022 TSH Qn 2.450 m[IU]/L 0.270 - 4.200 mIU/L [facility] TSH SerPl-aCncon 05-08-2022 TSH Qn 2.450 m[IU]/L Normal 0.270-4.200 [facility] Comment on above: Order Comment: Speci men Type: BLOOD SPECIMENOrdering Facility: [facility] Address: [address] [place] [address] Performed By: #### 3 016-3 ####[facility]ORATORYCLIA [id number] [place] [address] [facility] Office Visit (Urgent Care)on 04-20-2022 Follow-up visit Diagnoses/Problems Assessed Shingles (053.9) (B02.9) Orders Shingles Start: Acyclovir 800 MG Oral Tablet; TAKE 1 TABLET EVERY 4 HOURS, 5 TIMES DAILY FOR 7 TO 10 DAYS Rx By: Tommy Owusu; Dispense: 10 Days ; #:50 Tablet; Refill: 0;For: Shingles; TARYN = N; [facility]; Last Updated By: Constance Hameed; 04/20/2022 2:20:49 PM Provider Impressions Physical exam findings as noted above. Patient's painful erythematous rash is entirely consistent with the left facial dermatome strongly suggesting herpes zoster infection. There is no evidence of ocular involvement at this time. Patient was provided with a prescription for acyclovir 800 mg and supportive care instructions were discussed. 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 Over the last 2 weeks have you felt down, depressed or hopeless? (If yes, answer PHQ-9 below)No PHQ-2 #2. Over the last 2 weeks have you felt little interest or pleasure in doing things? (If yes, answer PHQ-9 below)No Falls Screening (Age 18+)a) No falls within the last year O2 Grphhitlcq11, Nasal Cannula Pain Scale0 Physical Exam Constitutional: Well developed, well nourished. vital signs reviewed. patient alert patient without distress Head and Face: Head and face: Abnormal. Palpation of the face and sinuses: Abnormal. Eyes: Normal external exam - pupils were equal in size, round, reactive to light (PERRL) with normal accommodation and extraocular move (more content not included)... 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 No acute osseous abnormality identified involving the sacrum or coccyx. Mild osteoarthrosis of the right knee. French Instructor: YURIDIA Transcribe Date/Time: Dec 31 2021 3:07P Dictated by : ALESSANDRA SIMON MD This examination was interpreted and the report reviewed and electronically signed by: ALESSANDRA SIMON MD on Dec 31 2021 3:10PM [facility] No Panel InformationOrdered By: Ccf Provider on 12-31-2021 [facility] XR Knee - right 4 Viewson [...] of right knee RIGHT KNEE PAIN (accession [id number]), LOW BACK PAIN (accession [id number]), LOW BACK PAIN (accession [id number]) TECHNIQUE: Images: XR KNEE 4V AP/PA BOTH+LAT/CAREN [...] levels in the lumbar spine. No fracture. Puff-fb-vfyn of the right femoral head and acetabulum. Degenerative cyst formation on the right femoral head and acetabulum. Osteophyte formation on the left superior acetabulum. Sacrum/coccyx RESULT: SI joints. Tach. No erosions are seen. Subchondral sclerosis subjacent to the SI joints. No fracture or dislocation. The remainder of the imaged bony pelvis appears to be intact. [facility] Provider, Pedro Gaxiola [facility] - 12/31/2021 * * *Final Report* * [...] of right knee RIGHT KNEE PAIN (accession [id number]), LOW BACK PAIN (accession [id number]), LOW BACK PAIN (accession [id number]) TECHNIQUE: Images: XR KNEE 4V AP/PA BOTH+LAT/CAREN [...] levels in the lumbar spine. No fracture. Glww-ik-gwir of the right femoral head and acetabulum. [...] coccyx. Mild osteoarthrosis of the right knee. French Instructor: PSCB Transcribe Date/Time: Dec 31 2021 3:07P Dictated by : ALESSANDRA SIMON MD This examination was interpreted and the report reviewed and electronically signed by: ALESSANDRA SIMON MD on Dec 31 2021 3:10PM [facility] XR Lumbar spine 3 Viewson * [...] of right knee RIGHT KNEE PAIN (accession [id number]), LOW BACK PAIN (accession [id number]), LOW BACK PAIN (accession [id number]) TECHNIQUE: Images: XR KNEE 4V AP/PA BOTH+LAT/CAREN [...] levels in the lumbar spine. No fracture. Ncmn-ub-detd of the right femoral head and acetabulum. Degenerative cyst formation on the right femoral head and acetabulum. Osteophyte formation on the left superior acetabulum. Sacrum/coccyx RESULT: SI joints. Tach. No erosions are seen. Subchondral sclerosis subjacent to the SI joints. No fracture or dislocation. The remainder of the imaged bony pelvis appears to be intact. [facility] * * *Final Report* [...] of right knee RIGHT KNEE PAIN (accession [id number]), LOW BACK PAIN (accession [id number]), LOW BACK PAIN (accession [id number]) TECHNIQUE: Images: XR KNEE 4V AP/PA BOTH+LAT/CAREN [...] levels in the lumbar spine. No fracture. Fgub-xl-ugdz of the right femoral head and acetabulum. [...] coccyx. Mild osteoarthrosis of the right knee. French Instructor: YURIDIA Transcribe Date/Time: Dec 31 2021 3:07P Dictated by : ALESSANDRA SIMON MD This examination was interpreted and the report reviewed and electronically signed by: ALESSANDRA SIMON MD on Dec 31 2021 3:10PM [facility] XR Sacrum and Coccyx 3 Views [...] of right knee RIGHT KNEE PAIN (accession [id number]), LOW BACK PAIN (accession [id number]), LOW BACK PAIN (accession [id number]) TECHNIQUE: Images: XR KNEE 4V AP/PA BOTH+LAT/CAREN [...] levels in the lumbar spine. No fracture. Cmmd-km-memg of the right femoral head and acetabulum. Degenerative cyst formation on the right femoral head and acetabulum. Osteophyte formation on the left superior acetabulum. Sacrum/coccyx RESULT: SI joints. Tach. No erosions are seen. Subchondral sclerosis subjacent to the SI joints. No fracture or dislocation. The remainder of the imaged bony pelvis appears to be intact. [facility] Provider, [facility] - 12/31/2021 * * *Final Report* [...] of right knee RIGHT KNEE PAIN (accession [id number]), LOW BACK PAIN (accession [id number]), LOW BACK PAIN (accession [id number]) TECHNIQUE: Images: XR KNEE 4V AP/PA BOTH+LAT/CAREN [...] levels in the lumbar spine. No fracture. Husd-ij-hskv of the right femoral head and acetabulum. [...] coccyx. Mild osteoarthrosis of the right knee. French Instructor: ROBERTS CHAPELGil Transcribe Date/Time: Dec 31 2021 3:07P Dictated by : ALESSANDRA SIMON MD This examination was interpreted and the report reviewed and electronically signed by: ALESSANDRA SIMON MD on Dec 31 2021 3:10PM EST [facility] No Panel Informationon 12-30 Radiology Study observation (narrative) [facility] XR Knee - right 4 Viewson Radiology Study observation (narrative) [facility] CBC panel Auto (Bld)on 05-30 Erythrocyte distribution width (RBC) [Ratio] 13.2 % 11.5 - 15.0 % [facility] Hematocrit (Bld) [Volume fraction] 36.5 % 36.0 - 46.0 % [facility] Hemoglobin (Bld) [Mass/Vol] 11.7 g/dL 11.5 - 15.5 g/dL [facility] MCH (RBC) [Entitic mass] 31.5 pg 26.0 - 34.0 pg [facility] MCHC (RBC) [Mass/Vol] 32.1 g/dL 30.5 - 36.0 g/dL [facility] MCV (RBC) [Entitic vol] 98.1 fL 80.0 - 100.0 fL [facility] Nucleated RBC (Bld) [#/Vol] 10*3/uL <0.01 k/uL [facility] Platelet mean volume (Bld) [Entitic vol] 9.5 fL 9.0 - 12.7 fL [facility] Platelets (Bld) [#/Vol] 232 10*3/uL 150 - 400 k/uL [facility] RBC (Bld) [#/Vol] 3.72 10*6/uL Low 3.90 - 5.2 0 m/uL [facility] WBC (Bld) [#/Vol] 9.24 10*3/uL 3.70 - 11. 00 k/uL [facility] Comprehensive metabolic 2000 panelon 05-30-2021 Albumin [Mass/Vol] 3.9 g/dL 3.9 - 4.9 g/dL [facility] ALP [Catalytic activity/Vol] 97 U/L 34 - 123 U/L [facility] ALT [Catalytic activity/Vol] 8 U/L 7 - 38 U/L [facility] Anion gap [Moles/Vol] 5 mmol/L Low 9 - 18 mmol/L [facility] AST [Catalytic activity/Vol] 23 U/L 13 - 35 U/L [facility] Bilirubin [Mass/Vol] 0.2 mg/dL 0.2 - 1 .3 mg/dL [facility] Calcium [Mass/Vol] 9.3 mg/dL 8.5 - 10. 2 mg/dL [facility] Chloride [Moles/Vol] 99 mmol/L 97 - 10 5 mmol/L [facility] CO2 [Moles/Vol] 30 mmol/L 22 - 30 mmol/L [facility] Creatinine [Mass/Vol] 0.65 mg/dL 0.58 - 0.96 mg/dL [facility] Estimated Glomerular Filtration Rate 89 mL/min/1.73m >=60 mL/min/1.73m [facility] Glucose [Mass/Vol] 85 mg/dL 74 - 99 mg/dL [facility] Potassium [Moles/Vol] 4.7 mmol/L 3.7 - 5.1 mmol/L [facility] Protein [Mass/Vol] 7.5 g/dL 6.3 - 8.0 g/dL [facility] Sodium [Moles/Vol] 134 mmol/L Low 136 - 144 mmol/L [facility] Urea nitrogen [Mass/Vol] 9 mg/dL 7 - 21 mg/dL [facility] LIPID PANEL, NONFASTINGon Cholesterol [Mass/Vol] 166 mg/dL <200 mg/dL [facility] HDL Cholesterol, Nonfasting 61 mg/dL >39 mg/dL [facility] LDL Cholesterol, Nonfasting 77 mg/dL <100 mg/dL [facility] LDL/HDL Ratio, Nonfasting 1.26 mg/dL <2.54 mg/dL [facility] Non HDL Cholesterol, Nonfasting 105 mg/dL <130 mg/dL [facility] Total Chol/HDL Ratio, Nonfasting 2.72 mg/dL <5.10 mg/dL [facility] Triglycerides, Nonfasting 141 mg/dL <150 mg/dL [facility] VLDL Cholesterol, Nonfasting 28 mg/dL <30 mg/dL [facility] TSH BLDon 05-30-2021 TSH Qn 1.450 m[IU]/L 0.270 - 4.200 mIU/L [facility] CNPNon 12-24-2020 CNPN Telephone ([facility]) MERNA WEBSTER ([id number]) 1940 F NFR Date Time Provider Department 12/24/20 JIGAR GRAHAM [facility] During your visit today, we recorded [...] by mouth daily before breakfast. - fexofenadine (JENNIFER) 180 mg tablet Take 180 mg by [...] (FLONASE) 50 mcg/actuation nasal spray Use 1 [place] in each nostril daily at bedtime. - [...] [M15.9] 09/04/2005 Pes anserinus tendinitis or bursitis [QPW0614] 09/04/2005 07/22/2017 PLANTAR FIBROMATOSIS [M72.2] 09/04/2005 Backache, [...] [F41.9] 07/22/2017 Idiopathic pulmonary fibrosis (HCC) [J84.112] more content not included)... Normal [facility] Large Joint Arthro/Inj: R kn ee joint [facility] Vital Signs Date Time Vital Sign Value Performing Clinician Facility 12-16-2024 13:24-0400 Body height [address] Сергей Espinoza MD Work Phone: [facility] 12-01-2024 19:57-0400 Body temperature 98.2 [degF] Dr. Сергей Espinoza MD Work Phone: [facility] 12-01-2024 19:57-0400 Diastolic blood pressure 66 mm[Hg] Dr. Сергей Espinoza MD Work Phone: [facility] 12-01-2024 19:57-0400 Heart rate 65 /min Dr. Сергей Espinoza MD Work Phone: [facility] 12-01-2024 19:57-0400 Inhaled oxygen flow rate 2 L/min Dr. Сергей Espinoza MD Work Phone: [facility] 12-01-2024 19:57-0400 Respiratory rate 16 /min Dr. Сергей Espinoza MD Work Phone: [facility] 12-01-2024 19:57-0400 SaO2% (BldA) [Mass fraction] 98 % Dr. Сергей Espinoza MD Work Phone: [facility] 12-01-2024 19:57-0400 Systolic blood pressure 146 mm[Hg] Dr. Сергей Espinoza MD Work Phone: [facility] 11-30-2024 11:06-0400 Inhaled oxygen flow rate 2 L/min Dr. Сергей Espinoza MD Work Phone: [facility] 11-30-2024 11:02-0400 Body temperature 97.9 [degF] Dr. Сергей Espinoza MD Work Phone: [facility] 11-30-2024 11:02-0400 Diastolic blood pressure 63 mm[Hg] Dr. Сергей Espinoza MD Work Phone: [facility] 11-30-2024 11:02-0400 Heart rate 69 /min Dr. Сергей Espinoza MD Work Phone: [facility] 11-30-2024 11:02-0400 Respiratory rate 16 /min Dr. Сергей Espinoza MD Work Phone: [facility] 11-30-2024 11:02-0400 SaO2% (BldA) [Mass fraction] 100 % Dr. Сергей Espinoza MD Work Phone: [facility] 11-30-2024 11:02-0400 Systolic blood pressure 145 mm[Hg] Dr. Сергей Espinoza MD Work Phone: [facility] 11-30-2024 07:53-0400 Body height [address] Сергей Espinoza MD Work Phone: [facility] 11-30-2024 07:53-0400 Body mass index (BMI) [Ratio] 24.3 kg/m2 Dr. Сергей Espinoza MD Work Phone: [facility] 11-30-2024 07:53-0400 Body weight 59.[address] Сергей Espinoza MD Work Phone: [facility] 09-17-2024 09:59-0400 Body height [address] Сергей Espinoza MD Work Phone: [facility] 09-14-2024 15:09-0400 Body height [address] Сергей Espinoza MD Work Phone: [facility] 09-14-2024 14:56-0400 Body height [address] Сергей Espinoza MD Work Phone: [facility] 09-25-2023 13:50-0400 Body mass index (BMI) [Ratio] 24.31 kg/m2 Mouna Dillard APRN.BULLET CASTING OPERATOR Work Phone: [facility] 09-25-2023 13:50-0400 Body weight 60.3 kg Mouna Dillard APRN.BULLET CASTING OPERATOR Work Phone: [facility] 09-25-2023 13:50-0400 Diastolic blood pressure 86 mm[Hg] Mouna Dillard APRN.BULLET CASTING OPERATOR Work Phone: [facility] Comment on above: Patient is newly on B/p [facility] 09-25-2023 13:50-0400 Heart rate 79 /min Mouna Dillard APRN.BULLET CASTING OPERATOR Work Phone: [facility] 09-25-2023 13:50-0400 SaO2% (BldA) [Mass fraction] 99 % Mouna Dillard APRN.BULLET CASTING OPERATOR Work Phone: [facility] Comment on above: patient is on 3 liters of portable Oxyge n 09-25-2023 13:50-0400 Systolic blood pressure 167 mm[Hg] Mouna Dillard APRN.BULLET CASTING OPERATOR Work Phone: [facility] Comment on above: Patient is newly on B/p medication [facility]red [facility] 07-09-2023 08:28-0400 Diastolic blood pressure 80 mm[Hg] Сергей Espinoza MD Work Phone: [facility] 07-09-2023 08:28-0400 Systolic blood pressure 130 mm[Hg] Сергей Espinoza MD Work Phone: [facility] 07-09-2023 08:120400 Body height 157.5 cm Сергей Espinoza MD Work Phone: [facility] 07-09-2023 08:12-0400 Body mass index (BMI) [Ratio] 25.08 kg/m2 Сергей Espinoza MD Work Phone: [facility] 07-09-2023 08:12-0400 Body temperature 97.11 [degF] Сергей Espinoza MD Work Phone: [facility] 07-09-2023 08:120400 Body weight 62.2 kg Сергей Espinoza MD Work Phone: [facility] 07-09-2023 08:12-0400 Heart rate 82 /min Сергей Espinoza MD Work Phone: [facility] 07-09-2023 08:12-0400 Respiratory rate 16 /min Сергей Espinoza MD Work Phone: [facility] 07-09-2023 08:12-0400 SaO2% (BldA) [Mass fraction] 98 % Сергей Espinoza MD Work Phone: [facility] 06-30-2023 15:110400 Body height 157.5 cm Mouna Ochoa APRN.BULLET CASTING OPERATOR Work Phone: [facility] 06-30-2023 15:11-0400 Body mass index (BMI) [Ratio] 26.52 kg/m2 Mouna Ochoa APRN.BULLET CASTING OPERATOR Work Phone: [facility] 06-30-2023 15:11-0400 Body weight 65.77 kg Mouna Ochoa APRN.BULLET CASTING OPERATOR Work Phone: [facility] 06-30-2023 15:11-0400 Diastolic blood pressure 72 mm[Hg] Muona Ochoa APRN.BULLET CASTING OPERATOR Work Phone: [facility] 06-30-2023 15:11-0400 Heart rate 76 /min Mouna Ochoa [employer] LEAK TESTER.BULLET CASTING OPERATOR Work Phone: [facility] 06-30-2023 15:11-0400 SaO2% (BldA) [Mass fraction] 97 % Mouna Ochoa [employer]IC[employer] LEAK TESTER.BULLET CASTING OPERATOR Work Phone: [facility] Comment on above: on 3 L O2 06-30-2023 15:11-0400 Systolic blood pressure 146 mm[Hg] Mouna Ochoa [employer]ICOND[employer] P[employer] LEAK TESTER.BULLET CASTING OPERATOR Work Phone: [facility] 04-23-2023 15:10-0500 Body height 157.5 cm Igor Johnson DO Work Phone: [facility] 04-23-2023 15:10-0500 Body weight 64.2 kg Igor Johnson DO Work Phone: [facility] 04-23-2023 15:10-0500 Diastolic blood pressure 80 mm[Hg] Igor Johnson DO Work Phone: [facility] 04-23-2023 15:10-0500 Heart rate 83 /min Igor Johnson DO Work Phone: [facility] 04-23-2023 15:10-0500 SaO2% (BldA) [Mass fraction] 96 % Igor Johnson DO Work Phone: [facility] 04-23-2023 15:10-0500 Systolic blood pressure 160 mm[Hg] Igor Johnson DO Work Phone: [facility] 01-19-2023 19:00-0500 Diastolic blood pressure 80 mm[Hg] Сергей Espinoza MD Work Phone: [facility] 01-19-2023 19:00-0500 Systolic blood pressure 152 mm[Hg] Сергей Espinoza MD Work Phone: [facility] [facility] 01-19-2023 18:41-0500 Body height 157.5 cm Сергей Espinoza MD Work Phone: [facility] 01-19-2023 18:41-0500 Body temperature 98.29 [degF] Сергей Espinoza MD Work Phone: [facility] 01-19-2023 18:41-0500 Body weight 64.86 kg Сергей Espinoza MD Work Phone: [facility] 01-19-2023 18:41-0500 Heart rate 89 /min Сергей Espinoza MD Work Phone: [facility] 01-19-2023 18:41-0500 Respiratory rate 16 /min Сергей Espinoza MD Work Phone: [facility] 01-19-2023 18:41-0500 SaO2% (BldA) [Mass fraction] 96 % Сергей Espinoza MD Work Phone: [facility] 11-28-2022 10:47-0400 Body weight 63.41 kg Sona Grier MD Work Phone: [facility] 11-28-2022 10:47-0400 Diastolic blood pressure 79 mm[Hg] Sona Grier MD Work Phone: [facility] 11-28-2022 10:47-0400 Heart rate 91 /min Sona Grier MD Work Phone: [facility] 11-28-2022 10:47-0400 SaO2% (BldA) [Mass fraction] 96 % Sona Grier MD Work Phone: [facility] 11-28-2022 10:47-0400 Systolic blood pressure 161 mm[Hg] Sona Grier MD Work Phone: [facility] 09-05-2022 16:15-0400 Diastolic blood pressure 86 mm[Hg] Brinda Dominguez APRN.BULLET CASTING OPERATOR Work Phone: [facility] 09-05-2022 16:15-0400 Systolic blood pressure 146 mm[Hg] Bridna Dominguez APRN.BULLET CASTING OPERATOR Work Phone: [facility] 09-05-2022 15:43-0400 Body height 158.8 cm Brinda Dominguez [employer]ICOND[employer] PACK[employer] LEAK TESTER.BULLET CASTING OPERATOR Work Phone: [facility] 09-05-2022 15:43-0400 Body temperature 99.1 [degF] Brinda Dominguez SEMICONDUCTOR PACKAGES LEAK TESTER.BULLET CASTING OPERATOR Work Phone: [facility] 09-05-2022 15:43-0400 Body weight 61.6 kg Brinda Dominguez SEMICONDUCTOR PACKAGES LEAK TESTER.BULLET CASTING OPERATOR Work Phone: [facility] 09-05-2022 15:43-0400 Heart rate 92 /min Brinda Chrisstel SEMICONDUCTOR PACKAGES LEAK TESTER.BULLET CASTING OPERATOR Work Phone: [facility] 09-05-2022 15:43-0400 Respiratory rate 19 /min Brinda Dominguez SEMICONDUCTOR PACKAGES LEAK TESTER.BULLET CASTING OPERATOR Work Phone: [facility] 09-05-2022 15:43-0400 SaO2% (BldA) [Mass fraction] 96 % Brinda Dominguez SEMICOND[employer]CTOR P[employer] LEAK TESTER.BULLET CASTING OPERATOR Work Phone: [facility] 08-22-2022 16:57-0400 Diastolic blood pressure 76 mm[Hg] Сергей Espinoza MD Work Phone: [facility] 08-22-2022 16:57-0400 Systolic blood pressure 142 mm[Hg] Сергей Espinoza MD Work Phone: [facility] 08-22-2022 16:37-0400 Body height 158.8 cm Сергей Espnioza MD Work Phone: [facility] 08-22-2022 16:37-0400 Body temperature 97.81 [degF] Сергей Espinoza MD Work Phone: [facility] 08-22-2022 16:37-0400 Body weight 60.78 kg Сергей Espinoza MD Work Phone: [facility] 08-22-2022 16:37-0400 Heart rate 88 /min Сергей Espinoza MD Work Phone: [facility] 08-22-2022 16:37-0400 Respiratory rate 16 /min Сергей Espinoza MD Work Phone: [facility] 08-22-2022 16:37-0400 SaO2% (BldA) [Mass fraction] 94 % Сергей Espinoza MD Work Phone: [facility] 05-21-2022 13:26-0400 Diastolic blood pressure 70 mm[Hg] Сергей Epsinoza MD Work Phone: [facility] 05-21-2022 13:26-0400 Systolic blood pressure 138 mm[Hg] Сергей Espinoza MD Work Phone: [facility] 05-21-2022 13:06-0400 Body height 158.8 cm Сергей Espinoza MD Work Phone: [facility] 05-21-2022 13:06-0400 Body temperature 98.2 [degF] Сергей Espinoza MD Work Phone: [facility] 05-21-2022 13:06-0400 Body weight 62.14 kg Сергей Espinoza MD Work Phone: [facility] 05-21-2022 13:06-0400 Heart rate 99 /min Сергей Espinoza MD Work Phone: [facility] 05-21-2022 13:06-0400 Respiratory rate 16 /min Сергей Espinoza MD Work Phone: [facility] 05-21-2022 13:06-0400 SaO2% (BldA) [Mass fraction] 94 % Сергей Espinoza MD Work Phone: [facility] 05-05-2022 15:26-0500 Diastolic blood pressure 72 mm[Hg] Cordt Skraba SEMICONDUCTOR PACKAGES LEAK TESTER.BULLET CASTING OPERATOR Work Phone: [facility] 05-05-2022 15:26-0500 Systolic blood pressure 168 mm[Hg] Cordt Skraba SEMICONDUCTOR P[employer] LEAK TESTER.BULLET CASTING OPERATOR Work Phone: [facility] 05-05-2022 15:24-0500 Body height 158.8 cm Cordt Skraba SEMICONDUCTOR P[employer] LEAK TESTER.BULLET CASTING OPERATOR Work Phone: [facility] 05-05-2022 15:24-0500 Body weight 61.2 kg Cordt Skraba SEMICONDUCTOR P[employer] LEAK TESTER.BULLET CASTING OPERATOR Work Phone: [facility] 05-05-2022 15:24-0500 Heart rate 88 /min Cordt Skraba SEMICONDUCTOR P[employer] LEAK TESTER.BULLET CASTING OPERATOR Work Phone: [facility] 05-05-2022 15:24-0500 Respiratory rate 16 /min Cordt Skraba SEMICOND[employer]CTOR P[employer] LEAK TESTER.BULLET CASTING OPERATOR Work Phone: [facility] 05-05-2022 15:24-0500 SaO2% (BldA) [Mass fraction] 95 % Cordt Skraba SEMICONDUCTOR PACK[employer] LEAK TESTER.BULLET CASTING OPERATOR Work Phone: [facility] 04-20-2022 14:02-0500 Body mass index (BMI) [Ratio] 25.86 kg/m2 Unknown Unknown [facility] Work Phone: 04-20-2022 14:02-0500 Body surface area Derived from formula 1.69 m2 Unknown Unknown [facility] Work Phone: 04-20-2022 14:02-0500 Body temperature 100.7 [degF] Unknown Unknown [facility] Work Phone: 04-20-2022 14:02-0500 Body weight 66.23 kg Unknown Unknown [facility] Work Phone: 04-20-2022 14:02-0500 Diastolic blood pressure 78 mm[Hg] Unknown Unknown [facility] Work Phone: 04-20-2022 14:02-0500 Heart rate 96 /min Unknown Unknown [facility] Work Phone: 04-20-2022 14:02-0500 Respiratory rate 20 /min Unknown Unknown [facility] Work Phone: 04-20-2022 14:02-0500 SaO2% (BldA) [Mass fraction] 95 % Unknown Unknown [facility] Work Phone: 04-20-2022 14:02-0500 Systolic blood pressure 162 mm[Hg] Unknown Unknown [facility] Work Phone: 04-20-2022 14:02-0500 0 1 Unknown Unknown [facility] Work Phone: Comment on above: [facility] 03-31-2022 09:59-0500 Diastolic blood pressure 77 mm[Hg] Cordt Skraba SEMICONDUCTOR P[employer] LEAK TESTER.BULLET CASTING OPERATOR Work Phone: [facility] 03-31-2022 09:59-0500 Heart rate 83 /min Cordt Skraba SEMICONDUCTOR PACK[employer] LEAK TESTER.BULLET CASTING OPERATOR Work Phone: [facility] 03-31-2022 09:59-0500 SaO2% (BldA) [Mass fraction] 96 % Cordt Skraba SEMICOND[employer]CTOR P[employer] LEAK TESTER.BULLET CASTING OPERATOR Work Phone: [facility] 03-31-2022 09:59-0500 Systolic blood pressure 166 mm[Hg] Cordt Skraba SEMICONDUCTOR PACKAGES LEAK TESTER.BULLET CASTING OPERATOR Work Phone: [facility] 02-14-2022 15:02-0500 Diastolic blood pressure 64 mm[Hg] Сергей Espinoza MD Work Phone: [facility] 02-14-2022 15:02-0500 Systolic blood pressure 130 mm[Hg] Сергей Espinoza MD Work Phone: [facility] 02-14-2022 14:34-0500 Body height 160 cm Сергей Espinoza MD Work Phone: [facility] 02-14-2022 14:34-0500 Body temperature 97.5 [degF] Сергей Espinoza MD Work Phone: [facility] 02-14-2022 14:34-0500 Body weight 64.41 kg Сергей Espinoza MD Work Phone: [facility] 02-14-2022 14:34-0500 Heart rate 111 /min Сергей Espinoza MD Work Phone: [facility] 02-14-2022 14:34-0500 Respiratory rate 16 /min Сергей Espinoza MD Work Phone: [facility] 02-14-2022 14:34-0500 SaO2% (BldA) [Mass fraction] 94 % Сергей Espinoza MD Work Phone: [facility] 10-28-2021 13:42-0400 Body height 158.8 cm Sona Grier MD Work Phone: [facility] 10-28-2021 13:42-0400 Body weight 65.8 kg Sona Grier MD Work Phone: [facility] 10-28-2021 13:42-0400 Diastolic blood pressure 75 mm[Hg] Sona Grier MD Work Phone: [facility] 10-28-2021 13:42-0400 Heart rate 78 /min Sona Grier MD Work Phone: [facility] 10-28-2021 13:42-0400 SaO2% (BldA) [Mass fraction] 99 % Sona Grier MD Work Phone: [facility] 10-28-2021 13:42-0400 Systolic blood pressure 148 mm[Hg] Sona Grier MD Work Phone: [facility] 07-24-2021 15:42-0400 Diastolic blood pressure 80 mm[Hg] Kenyon Zuniga APRN.BULLET CASTING OPERATOR Work Phone: [facility] 07-24-2021 15:42-0400 Systolic blood pressure 139 mm[Hg] Kenyon Zuniga APRN.BULLET CASTING OPERATOR Work Phone: [facility] 07-24-2021 15:15-0400 Body temperature 97.5 [degF] Kenyon Zuniga APRN.BULLET CASTING OPERATOR Work Phone: [facility] 07-24-2021 15:15-0400 Body weight 65.82 kg Kenyon Dwain SEMICONDUCTOR PACKAGES LEAK TESTER.BULLET CASTING OPERATOR Work Phone: [facility] 07-24-2021 15:15-0400 Heart rate 109 /min Kenyon Zuniga SEMICONDUCTOR PACKAGES LEAK TESTER.BULLET CASTING OPERATOR Work Phone: [facility] 07-24-2021 15:15-0400 Respiratory rate 16 /min Kenyon Zuniga SEMICONDUCTOR P[employer] LEAK TESTER.BULLET CASTING OPERATOR Work Phone: [facility] 07-24-2021 15:15-0400 SaO2% (BldA) [Mass fraction] 95 % Kenyon Zuniga SEMICOND[employer]CTOR P[employer] LEAK TESTER.BULLET CASTING OPERATOR Work Phone: [facility] 05-30-2021 15:23-0400 Diastolic blood pressure 78 mm[Hg] Сергей Espinoza MD Work Phone: [facility] 05-30-2021 15:23-0400 Systolic blood pressure 150 mm[Hg] Сергей Espinoza MD Work Phone: [facility] 05-30-2021 14:25-0400 Body height 157.5 cm Сергей Espinoza MD Work Phone: [facility] 05-30-2021 14:25-0400 Body temperature 98.29 [degF] Сергей Espinoza MD Work Phone: [facility] 05-30-2021 14:25-0400 Body weight 65.77 kg Сергей Espinoza MD Work Phone: [facility] 05-30-2021 14:25-0400 Heart rate 101 /min Сергей Espinoza MD Work Phone: [facility] 05-30-2021 14:25-0400 Respiratory rate 16 /min Сергей Espinoza MD Work Phone: [facility] 05-30-2021 14:25-0400 SaO2% (BldA) [Mass fraction] 95 % Сергей Espinoza MD Work Phone: [facility] Encounters Encounter Date Encounter Type Care Provider Facility Start: 12-01-2024 Non-patient / Non-visit Eric Silva nd [facility] Start: 12-01-2024 Non-patient / Non-visit Dr. Lorena BAILEY -[facility] Work Phone: Start: 11-30-2024 Non-patient / Non-visit Dr. Lorena BAILEY -[facility] Work Phone: Start: 11-30-2024 Non-patient / Non-visit Eric Phuckenan vickers [facility] Start: 11-29-2024 ambulatory Mariela Lilly Facility:[facility] Start: 11-29-2024 End: 12-01-2024 Evaluation and management of inpatient Dr. Weston Choudhary MD -[facility] Work Phone: Start: 11-29-2024 Non-patient / Non-visit Dr. Ayde Abdullahi MD -[facility] Work Phone: Start: 11-28-2024 Non-patient / Non-visit Dr. Ayde Abdullahi MD -[facility] Work Phone: Start: 11-27-2024 ambulatory Mariela Lilly Facility:[facility] Start: 11-27-2024 Non-patient / Non-visit Dr. Jada Lilly MD [facility] Work Phone: Start: 11-14-2024 End: 11-14-[address] Сергей Espinoza MD Work Phone: -[facility] Start: 11-14-2024 End: 11-14-2024 Patient encounter procedure Stacie Chen NP-C -[facility] Work Phone: Start: 11-03-2024 Non-patient / Non-visit Obduliosandraoral Prado [facility] Work Phone: Start: 11-03-2024 ambulatory Сергей Posadas ty:[facility] Start: 10-25-2024 End: 10-25-[address] Сергей Espinoza MD Work Phone: [facility] Start: 10-25-2024 End: 10-25-2024 Patient encounter procedure Stacie Chen [facility] Work Phone: Start: 10-18-2024 ambulatory Anais villalobos OLS Facility:[facility] Start: 10-18-2024 Registered Referred Anais Osullivan MD [facility] Start: 10-06-2024 ambulatory Anais villalobos OLS Facility:[facility] Start: 10-06-2024 Registered Referred Anais Osullivan MD [facility] Start: 10-04-2024 End: 10-04-[address] Сергей Espinoza MD Work Phone: [facility] Start: 10-04-2024 End: 10-04-[address] Anais Osullivan MD -[facility] Work Phone: Start: 10-03-2024 Registered Referred Stacie navarro [facility] Start: 10-03-2024 End: 10-03-2024 ambulatory Stacie Chen OLS Facility:[facility] Start: 09-16-2024 End: 09-16-[address] Сергей Espinoza MD Work Phone: [facility] Start: 09-16-2024 End: 09-16-2024 Patient encounter procedure Stacie Chen [facility] Work Phone: Start: 09-14-2024 ambulatory Anais villalobos OLS Facility:[facility] Start: 09-14-2024 Registered Referred Anais Osullivan MD [facility] Start: 09-13-2024 End: 09-13-[address] Сергей Espinoza MD Work Phone: [facility] Start: 09-13-2024 End: 09-13-2024 Patient encounter procedure Stacie Chen [facility] Work Phone: Start: 09-13-2024 End: 09-13-[address] Сергей Espinoza MD Work Phone: [facility] Start: 09-13-2024 End: 09-13-2024 Departed Referred Stacie Chen [employer] Start: 09-13-2024 Registered Referred Stacie King ramon [employer]-[facility] Start: 09-13-2024 End: 09-13-2024 ambulatory Сергей Espinoza Facility:[facility] Start: 08-08-2024 End: 08-08-[address] Сергей Espinoza MD Work Phone: [facility] Start: 08-08-2024 End: 08-08-2024 Patient encounter procedure Stacie Reynoldscarrie [facility] Work Phone: Start: 08-02-2024 End: 08-02-[address] Сергей Espinoza MD Work Phone: [facility] Start: 08-02-2024 End: 08-02-[address] Anais Osullivan MD -[facility] Work Phone: Start: 07-26-2024 End: 07-26-[address] Сергей Espinoza MD Work Phone: [facility] Start: 07-26-2024 End: 07-26-2024 Patient encounter procedure Stacie Reynoldscarrie [facility] Work Phone: Start: 07-19-2024 End: 07-19-[address] Сергей Espinoza MD Work Phone: [facility] Work Phone: Start: 07-19-2024 End: 07-19-2024 Departed Referred Anais Osullivan MD [facility] Start: 07-19-2024 End: 07-19-2024 ambulatory Anais DELGADO Facility:[facility] Start: 06-30-2024 End: 06-30-[address] Сергей Espinoza MD Work Phone: -[facility] Start: 06-30-2024 End: 06-30-2024 Patient encounter procedure Tj ELIAS -[facility] Work Phone: Start: 05-31-2024 End: 05-31-2024 ambulatory Сергей Espinoza Facility:[facility] Start: 05-31-2024 End: 05-31-[address] Anais Osullivan MD -[facility] Work Phone: Start: 05-17-2024 End: 05-17-[address] Сергей Espinoza MD Work Phone: [facility] Work Phone: Start: 05-17-2024 End: 05-17-2024 Departed Referred Stacie DANIELS [facility] Start: 05-17-2024 End: 05-17-2024 ambulatory Stacie DELGADO Facility:[facility] Start: 05-11-2024 End: [facility]11[facility] Start: 05-11-2024 End: 05-11-2024 [facility] Work [facility]: Start: 04-23-2024 ambulatory Anais DELGADO Facility:[facility] Start: 04-23-2024 Registered Referred Anais Osullivan MD [facility] Start: 04-21-2024 End: 04-21-2024 ambulatory Сергей Espinoza [facility] Start: 04-21-2024 End: 04-21-2024 Patient [facility] Work Phone: Start: 04-19-2024 ambulatory Anais villalobos OLS Facility:[facility] Start: 04-19-2024 [facility] Start: 04-07-2024 ambulatory Anais villalobos OLS Facility:[facility] Start: 04-07-2024 Registered Referred Anais Osullivan MD [facility] Start: 04-05-2024 End: 04-05-2024 ambulatory [facility] Facility:[facility] Start: 04-05-2024 End: 04-05-[address] Anais Osullivan MD -[facility] Work Phone: Start: 03-04-2024 End: 03-04-2024 ambulatory [facility] Facility:[facility] Start: 03-04-2024 End: 03-04-2024 Patient encounter procedure Stacie DANIELS -[facility] Work Phone: Start: 02-02-2024 End: 02-02-2024 ambulatory [facility] Start: 01-25-2024 End: 01-25-2024 Telephone encounter Sona Grier MD Work Phone: Pulmonary Medicine Comment on above: Release Of Medical R ecords ([employer]) Start: 01-19-2024 End: 01-19-2024 ambulatory Anais DELGADO Facility:[facility] Start: 01-12-2024 End: 01-12-2024 ambulatory [facility] Start: 12-31-2023 End: 12-31-2023 Telephone encounter Sona Grier MD Work Phone: [facility]monary Medicine Comment on above: Orders Start: 09-25-2023 End: 09-25-2023 ambulatory Pulm Mc Work Phone: Pulmonary Medicine Comment on above: Spirometry Start: 09-25-2023 End: 09-25-2023 Patient encounter procedure [facility] [place] Work Phone: [facility] Medicine Comment on above: Idiopathic pulmonary fibrosis (HCC) (Primary Dx); Mild persistent asthma without complication; Chronic respiratory failure with hypoxia (HCC); Obstructive sleep apnea; Gastroesophageal reflux disease, unspecified whether esophagitis present Start: 09-18-2023 End: 09-18-2023 Subsequent hospital visit by physician [facility] (I-Stat) Work Phone: Cat Scan [...] Сергей dolan MD Work Phone: Internal [facility] [place] Comment on above: Medications Start: 08-10-2023 ambulatory Genevieve Fountain LPN NURSE BL[employer] Comment on above: Medication Problem Start: 07-25-2023 ambulatory Сергей dolan MD Work Phone: [facility] [place] Comment on above: Merna rodas edication question Start: 07-24-2023 ambulatory Sona baldwin MD Work Phone: Pulmonary Medicine Start: 07-24-2023 Patient encounter procedure Na smita Grier MD Work Phone: Pulmonary Medicine Comment on above: Appoint ment resched uled Start: 07-22-2023 Telephone encounter Сергей Espinoza MD Work Phone: [facility] [place] Comment on above: Forms (Direction [place] [facility] ) Start: 07-21-2023 Refill Aide Castillo APRN.CNP Work Phone: [facility] [place] Comment on above: Refill Request Start: 07-16-2023 Refill Aide Castillo APRN.BULLET CASTING OPERATOR Work Phone: [facility] [place] Comment on above: Refill Request Start: 07-15-2023 Telephone encounter Neurology Provid er Neurology Comment on above: Received Outside Med [facility] Records (External referral to Neurological [place]/) Start: 07-14-2023 Refill Sona baldwin MD Work Phone: Pulmonary Medicine Comment on above: Refill Request Fluticasone Start: 07-13-2023 ambulatory Сергей dolan MD Work Phone: [facility] [place] Comment on above: Nurse Triage Call Start: 07-10-2023 Telephone encounter Сергей Espinoza MD Work Phone: Internal [facility] Comment on above: Results Start: 07-09-2023 End: 07-09-2023 Office outpatient visit 25 minutes Сергей Espinoza MD Work Phone: [facility] [place] Comment on above: Primary insomnia (Pr imary Dx); Frequent headaches; Essential hypertension; Mild persistent asthma without complication; Idiopathic pulmonary fibrosis (HCC); Chronic respiratory failure with hypoxia (HCC); Acquired hypothyroidism; Primary osteoarthritis of right hip; Recurrent major depressive disorder, in full remission (HCC); Anxiety; Encounter for immunization Start: 07-06-2023 ambulatory Сергей dolan MD Work Phone: [facility] Comment on above: Blood test Start: 06-30-2023 End: 06-30-2023 Office outpatient visit 25 minutes Mouna Ochoa APRN.BULLET CASTING OPERATOR Work Phone: Cardiology Comment on above: Essential hypertensi on (Primary Dx); Pure hypercholesterolemia; Chronic respiratory failure with hypoxia (HCC); Obstructive sleep apnea; Palpitations Start: 06-30-2023 ambulatory Сергей dolan MD Work Phone: [facility] [place] Start: 06-26-2023 ambulatory Sona baldwin MD Work Phone: Pulmonary Medicine Comment on above: Coughing Start: 06-24-2023 Refill Aide Castillo APRN.BULLET CASTING OPERATOR Work Phone: [facility] [place] Comment on above: Refill Request Start: 06-19-2023 Telephone encounter Sona Grier MD Work Phone: Pulmonary Medicine Comment on above: Orders Start: 06-14-2023 ambulatory Сергей dolan MD Work Phone: [facility] [place] Comment on above: Handicap placard Start: 06-11-2023 Refill Сергей dolan MD Work Phone: [facility] [place] Comment on above: Refill Request Yes prescription ref ills Start: 05-24-2023 ambulatory Ca manzo RN NURSE [employer]PER Comment on above: UTI Start: 05-18-2023 ambulatory Сергей dolan MD Work Phone: [facility] [place] Comment on above: My heart test Start: 05-13-2023 Refill Brinda manley [employer]IC[employer] LEAK TESTER.BULLET CASTING OPERATOR Work Phone: Internal [facility] Comment on above: Refill Request Start: 05-09-2023 Refill Sona bladwin MD Work Phone: Pulmonary Medicine Comment on above: Refill Request Start: 05-08-2023 ambulatory Cordt James CLAIRE.BULLET CASTING OPERATOR Work Phone: Pulmonary Medicine Comment on above: Sinus problem and fi brosis question Refill Request Start: 05-04-2023 ambulatory Сергей dolan MD Work Phone: Internal [facility] Comment on above: Pain management Refill Request Start: 05-03-2023 ambulatory Сергей dolan MD Work Phone: Internal [facility] Comment on above: Pain management Start: 05-01-2023 ambulatory Сергей dolan MD Work Phone: Family [facility] Comment on above: Nurse Triage Call Start: 04-30-2023 ambulatory Сергей dolan MD Work Phone: [facility] Comment on above: Cellulitis Start: 04-29-2023 ambulatory Сергей dolan MD Work Phone: [facility] Comment on above: Sinsus Start: 04-23-2023 End: 04-23-2023 Refill Сергей Espinoza MD Work Phone: [facility] Comment on above: Refill Request DON (dyspnea on exer tion) (Primary Dx); Palpitations; Essential hypertension; Pure hypercholesterolemia; Obstructive sleep apnea; DNR (do not resuscitate) Start: 04-16-2023 ambulatory Сергей dolan MD Work Phone: Internal [facility] Comment on above: Diarrhea Start: 04-14-2023 Refill Сергей dolan MD Work Phone: [facility] Comment on above: Refill Request Start: 04-06-2023 Refill Tomasa Ramirez APRN.BULLET CASTING OPERATOR Work Phone: Pulmonary Medicine Comment on above: Refill Request Start: 03-31-2023 Telephone encounter Sona Grier MD Work Phone: Pulmonary Medicine Comment on above: Patient Update Start: 02-19-2023 Refill Сергей dolan MD Work Phone: [facility] Comment on above: Refill Request Appointment Start: 02-12-2023 Refill Aide Castillo APRN.BULLET CASTING OPERATOR Work Phone: [facility] [facility] Comment on above: Refill Request Start: 02-06-2023 Refill Brinda manley [employer]IC[employer]CTOR PACKAGES LEAK TESTER.BULLET CASTING OPERATOR Work Phone: [facility] Comment on above: Refill Request Start: 02-01-2023 ambulatory Vidya Mayes RN NURSE O N CALL Comment on above: Patient Update Start: 01-29-2023 ambulatory СЕРГЕЙ Ivyi lity:[facility] Start: 01-29-2023 End: 01-29-2023 Subsequent hospital visit by physician [facility] Work Phone: Cardiology Lab Comment on above: SOB (shortness of br eath) [R06.02] Start: 01-21-2023 ambulatory Сергей dolan MD Work Phone: [facility] Comment on above: Prednisone Start: 01-19-2023 End: 01-19-2023 Office outpatient visit 25 minutes Сергей Espinoza MD Work Phone: [facility] Comment on above: Anxiety (Primary Dx) ; Encounter for immunization; Palpitations; Psoriasis; Primary hypertension; Sinus congestion Start: 01-12-2023 ambulatory Сергей dolan MD Work Phone: [facility] Comment on above: had to go to ER in [facility] [place] Start: 01-02-2023 ambulatory Сергей dolan MD Work Phone: [facility] Comment on above: Fatigue Start: 12-30-2022 Telephone encounter Sona Grier MD Work Phone: Pulmonary Medicine Comment on above: Medication Problem Start: 12-18-2022 Refill Brinda manley APRN.CNP Work Phone: [facility] Comment on above: Refill Request Start: 12-16-2022 Telephone encounter Sona Grier MD Work Phone: Allergy Comment on above: Opened In Error Forms (rotech - cpap ) Start: 12-08-2022 ambulatory СЕРГЕЙ Ivyi lity:[facility] Start: 12-02-2022 ambulatory Sona baldwin MD Work Phone: Pulmonary Medicine Comment on above: Merna Kinglseyerger Start: 11-28-2022 Telephone encounter Sona Grier MD Work Phone: Pulmonary Medicine Comment on above: Patient Question Start: 11-28-2022 ambulatory СЕРГЕЙ Umana lity:[facility] Start: 11-28-2022 End: 11-28-2022 Subsequent hospital visit by physician [facility] Radiology Comment on above: SOB (shortness [...] of COVID-19 Start: 11-19-2022 Refill Aide Castillo [employer] LEAK TESTER.BULLET CASTING OPERATOR Work Phone: [facility] Comment on above: Refill Request Start: 11-18-2022 ambulatory Darling Samuels RN [facility] Start: 11-18-2022 Follow-up encounter Darling Samuels RN NURSE BLACK TOPPER Comment on above: Follow Up Start: 11-17-2022 ambulatory Sona baldwin MD Work Phone: Pulmonary Medicine Comment on above: Cpap supplies Start: 11-17-2022 Telephone encounter Sona Grier MD Work Phone: Pulmonary Medicine Comment on above: Orders Start: 11-16-2022 ambulatory Kenyon Zuniga APRN.BULLET CASTING OPERATOR Work Phone: [facility] Comment on above: Zoloft Start: 11-11-2022 ambulatory Сергей dolan MD Work Phone: [facility] Comment on above: Nurse Triage Call; B lood Pressure (/) Start: 11-10-2022 Telephone encounter Sona Grier MD Work Phone: Pulmonary Medicine Comment on above: Forms (rotech - oxyg en) Start: 11-04-2022 ambulatory Sona baldwin MD Work Phone: [facility] Start: 11-04-2022 Patient encounter procedure Na smita Grier MD Work Phone: Pulmonary Medicine Comment on above: Appointment Start: 10-27-2022 ambulatory Sona baldwin MD Work Phone: Pulmonary Medicine Comment on above: Migraine headaches Start: 10-24-2022 ambulatory СЕРГЕЙ Umana lity:[facility] Start: 10-24-2022 End: 10-24-2022 Office outpatient visit 25 minutes Al Woods PA-C Work Phone: Orthopaedics Comment on above: Primary osteoarthrit is of right shoulder (Primary Dx); Primary osteoarthritis of right hip; Primary osteoarthritis of right knee; Primary osteoarthritis of left knee Start: 10-24-2022 End: 10-24-2022 Subsequent hospital visit by physician [facility] Work Phone: Radiology Comment on above: Chronic right should er pain [M25.511, G89.29] Pain [R52] Start: 10-23-2022 ambulatory Сергей dolan MD Work Phone: [facility] Comment on above: Fatigue Start: 10-22-2022 ambulatory Сергей dolan MD Work Phone: [facility] Comment on above: Excressive sleeping Start: 10-21-2022 Refill Brinda manley APRN.BULLET CASTING OPERATOR Work Phone: [facility] Comment on above: Refill Request Start: 10-20-2022 ambulatory Sona baldwin MD Work Phone: Pulmonary Medicine Comment on above: Oxygen and Cpap supp lies Start: 10-08-2022 Orders Only Al Woods PA-C Work Phone: Orthopaedics Comment on above: Pain (Primary Dx) Start: 10-07-2022 ambulatory Pcp ([facility] Appoin t[facility] Start: 10-01-2022 ambulatory Pcp (Historical) Appoin tment Center Start: 09-23-2022 Refill Tomasa Ramirez APRN.BULLET CASTING OPERATOR Work Phone: Pulmonary Medicine Comment on above: Refill Request Start: 09-11-2022 ambulatory Сергей dolan MD Work Phone: [facility] Comment on above: Blood pressure Start: 09-08-2022 Telephone encounter Сергей Espinoza MD Work Phone: [facility] Comment on above: Medication Problem Start: 09-07-2022 Telephone encounter Brinda Dominguez APRN.BULLET CASTING OPERATOR Work Phone: [facility] Comment on above: Appointment Start: 09-05-2022 End: 09-05-2022 Office outpatient visit 25 minutes Brinda Dominguez APRN.BULLET CASTING OPERATOR Work Phone: [facility] Comment on above: Essential hypertensi on (Primary Dx); Primary osteoarthritis of both hips; DDD (degenerative disc disease), cervical; Closed fracture of one rib of left side with routine healing, subsequent encounter Start: 09-03-2022 End: 09-03-2022 Subsequent hospital visit by physician [facility] Marcela Denise Work Phone: Radiology Comment on above: Right hip pain [M25. 551] Start: 08-23-2022 Refill Aide Castillo APRN.BULLET CASTING OPERATOR Work Phone: [facility] Comment on above: Refill Request Start: 08-22-2022 End: 08-22-2022 Office outpatient visit 25 minutes Сергей Espinoza MD Work Phone: [facility] Comment on above: Other fatigue (Prima ry Dx); Neck pain; Chronic nonintractable headache, unspecified headache type; Rib pain on left side Start: 08-21-2022 ambulatory Сергей dolan MD Work Phone: [facility] Comment on above: Nurse Triage Call My stomach and sever al bad headaches Start: 08-21-2022 Telephone encounter Сергей Espinoza MD Work Phone: [facility] Comment on above: DURABLE MEDICAL EQUI PMENT (CPAP supplies) Start: 08-15-2022 ambulatory Сергей dolan MD Work Phone: [facility] Comment on above: Nurse Triage Call Start: 08-14-2022 Refill Brinda R Ryt el [employer] LEAK TESTER.BULLET CASTING OPERATOR Work Phone: [facility] Comment on above: Refill Request Upset stomach all th e timec Start: 07-10-2022 Refill Сергей dolan MD Work Phone: [facility] Comment on above: Refill Request Start: 07-09-2022 ambulatory SONA GRIER Facili ty:[facility] Start: 07-09-2022 End: 07-09-2022 Subsequent hospital visit by physician [facility] Radiology Comment on above: Lung nodules [R91.8] Start: 07-08-2022 ambulatory Сергей dolan MD Work Phone: [facility] Start: 07-08-2022 Patient encounter procedure Talia Espinoza MD Work Phone: [facility] Comment on above: Appointment Start: 06-25-2022 Refill Brinda Pro el [employer] LEAK TESTER.BULLET CASTING OPERATOR Work Phone: [facility] Comment on above: Refill Request Start: 06-23-2022 ambulatory Сергей dolan MD Work Phone: [facility] Comment on above: Insurance Change for Start: 06-18-2022 ambulatory Сергей dolan MD Work Phone: [facility] Comment on above: Nurse Triage Call Start: 06-12-2022 Refill Сергей dolan MD Work Phone: [facility] Comment on above: Refill Request Start: 06-11-2022 Refill Rica Sasha ELIAS-C Work Phone: Orthopaedics Comment on above: Refill Request Start: 06-03-2022 ambulatory Сергей dolan MD Work Phone: [facility] Start: 06-03-2022 Patient encounter procedure Talia Espinoza MD Work Phone: [facility] Comment on above: Appointment Start: 05-26-2022 Refill Aide Castillo APRN.BULLET CASTING OPERATOR Work Phone: [facility] Comment on above: Refill Request Start: 05-22-2022 End: 05-22-2022 Social Work Elder Chanel [employer] Primary Care Social Work Comment on above: Financial difficulty (Primary Dx) Pain in right hip [M 25.551] Start: 05-21-2022 End: 05-21-2022 Office outpatient visit 25 minutes Сергей Espinoza MD Work Phone: [facility] Comment on above: Idiopathic pulmonary fibrosis (HCC) (Primary Dx); Financial difficulties; Recurrent major depressive disorder, in full remission (HCC); Chronic respiratory failure with hypoxia (HCC); Essential hypertension; Anxiety Start: 05-10-2022 ambulatory Сергей dolan MD Work Phone: [facility] Comment on above: Lab test Start: 05-08-2022 End: 05-09-2022 ambulatory СЕРГЕЙ ESPINOZA Facility:[facility] Start: 05-08-2022 Telephone encounter Tomasa López ba, APRN.BULLET CASTING OPERATOR Work Phone: Pulmonary Medicine Comment on above: Insurance Authorizat ion Start: 05-06-2022 ambulatory Сергей dolan MD Work Phone: Internal [facility] Start: 05-05-2022 End: 05-05-2022 Patient encounter procedure Tomasa Ramirez APRN.BULLET CASTING OPERATOR Work Phone: Pulmonary Medicine Comment on above: Idiopathic pulmonary fibrosis (HCC) (Primary Dx); Chronic respiratory failure with hypoxia (HCC); Mild persistent asthma without complication; JENNY on CPAP; Lung nodule Start: 05-03-2022 ambulatory Sabine López RN NURSE BLACK TOPPER Comment on above: Covid19 Concern Start: 05-01-2022 Refill Brinda manley APRN.BULLET CASTING OPERATOR Work Phone: [facility] Comment on above: Refill Request Start: 04-29-2022 Refill Brinda manley APRN.BULLET CASTING OPERATOR Work Phone: [facility] Comment on above: Refill Request Start: 04-25-2022 Refill Сергей dolan MD Work Phone: [facility] Comment on above: Refill Request Start: 04-24-2022 ambulatory Cordt James CLAIRE.BULLET CASTING OPERATOR Work Phone: [facility] Start: 04-24-2022 Patient encounter procedure Co rdt James CLAIRE.BULLET CASTING OPERATOR Work Phone: Pulmonary Medicine Comment on above: Appointment Start: 04-23-2022 ambulatory Сергей dolan MD Work Phone: [facility] Comment on above: Shingles Start: 04-20-2022 Office outpatient ne w 30 minutes Unknown Unknown [facility] Work Phone: Start: 04-20-2022 ambulatory UNKNOWN UNKNOWN [...] Telephone encounter Sona Grier MD Work Phone: [place] [facility] Adult Comment on above: Appointment Start: 04-10-2022 End: 04-10-2022 Subsequent hospital visit by physician [facility] Ailin ([employer]) Work Phone: CT Scan Comment on above: Interstitial pulmona ry disease (HCC) [J84.9] Start: 04-03-2022 Telephone encounter Cordt Skra ba [employer]IC[employer]ACKAGES LEAK TESTER.BULLET CASTING OPERATOR Work Phone: Pulmonary Medicine Comment on above: Appointment Start: 04-01-2022 ambulatory Сергей dolan MD Work Phone: [facility] Comment on above: Nurse Triage Call Start: 03-31-2022 ambulatory Сергей dolan MD Work Phone: [facility] Comment on above: My blood pressure Start: 03-31-2022 End: 03-31-2022 Patient encounter procedure Tomasa Ramirez SEMICOND[employer]CTOR PACKAGES LEAK TESTER.BULLET CASTING OPERATOR Work Phone: Pulmonary Medicine Comment on above: Idiopathic pulmonary fibrosis (HCC) (Primary Dx); Chronic respiratory failure with hypoxia (HCC); Mild persistent asthma without complication; JENNY on CPAP Refill Request Start: 03-28-2022 Telephone encounter Sona Grier MD Work Phone: Pulmonary Medicine Comment on above: Patient Question (Re : Oxygen setting/level) Start: 03-25-2022 End: 03-25-2022 ambulatory Nurse Triage Moreira/Thao Work Phone: Nurse Phone Triage Comment on above: Nurse Triage Call (H dia) Start: 03-19-2022 Telephone encounter Rica rosen PA-C Work Phone: Orthopaedics Comment on above: Appointment Start: 02-27-2022 Refill Brinda manley SEMICONDUCTOR PACKAGES LEAK TESTER.BULLET CASTING OPERATOR Work Phone: [facility] Comment on above: Refill Request Start: 02-19-2022 Refill Brinda manley SEMICONDUCTOR PACKAGES LEAK TESTER.BULLET CASTING OPERATOR Work Phone: [facility] Comment on above: Refill Request Start: 02-14-2022 End: 02-14-2022 Patient encounter procedure Сергей Espinoza MD Work Phone: [facility] Comment on above: Trochanteric bursiti s of right hip (Primary Dx); Right hip pain; Essential hypertension; Anxiety Start: 01-31-2022 Refill Brinda manley SEMICOND[employer]CTOR PACKAGES LEAK TESTER.BULLET CASTING OPERATOR Work Phone: [facility] Comment on above: Refill Request Start: 01-28-2022 End: 01-28-2022 ambulatory Karen Pardo [facility] Comment on above: Radicular low back p ain (Primary Dx) Start: 12-31-2021 Refill Сергей dolan MD Work Phone: [facility] Comment on above: Refill Request Start: 12-30-2021 End: 12-30-2021 Subsequent hospital visit by physician [facility] Work Phone: Radiology Comment on above: Chronic pain of righ t knee [M25.561, G89.29] Start: 12-21-2021 ambulatory Сергей dolan MD Work Phone: [facility] Comment on above: Medication Euthyrox Start: 12-10-2021 Telephone encounter Сергей Espinoza MD Work Phone: [facility] Comment on above: Insurance Authorizat ion (Flovent Inhaler ) Start: 12-09-2021 Refill Сергей dolan MD Work Phone: [facility] Comment on above: Refill Request Start: 12-06-2021 ambulatory Сергей dolan MD Work Phone: [facility] Comment on above: Serrano Start: 12-05-2021 ambulatory Сергей dolan MD Work Phone: [facility] Start: 12-05-2021 Patient encounter procedure Talia Espinoza MD Work Phone: [facility] Comment on above: Appointment Start: 12-03-2021 ambulatory Сергей dolan MD Work Phone: [facility] Start: 12-03-2021 Patient encounter procedure Talia Espinoza MD Work Phone: [facility] Comment on above: Appointment Start: 12-02-2021 Refill Brinda Guerrero PA-C Work Phone: Pulmonary Medicine Comment on above: Refill Request Start: 12-01-2021 ambulatory Сергей dolan MD Work Phone: [facility] Comment on above: Not a question Start: 11-30-2021 Refill Сергей dolan MD Work Phone: [facility] Comment on above: Alprazolam Start: 11-28-2021 Refill Срегей dolan MD Work Phone: [facility] Comment on above: Refill Request Start: 11-26-2021 ambulatory Сергей dolan MD Work Phone: [facility] Comment on above: Right hip and leg Start: 11-14-2021 Telephone encounter Сергей Espinoza MD Work Phone: [facility] Comment on above: Medication Problem Start: 11-13-2021 Get Medical Advice Tonie Espinoza MD Work Phone: [facility] Comment on above: About refill. For Fl uticadone Problems innate HFA Inhalation Aerosol Start: 11-09-2021 ambulatory Сергей dolan MD Work Phone: [facility] Comment on above: Post covid syndrome [...] 10-11-2021 Refill Сергей dolan MD Work Phone: [facility] Comment on above: Refill Request Pain in right hip an d leg also in groin area Start: 10-04-2021 Refill Brinda manley APRN.BULLET CASTING OPERATOR Work Phone: [facility] Comment on above: Refill Request Zach Webster Start: 09-20-2021 Refill Сергей dolan MD Work Phone: [facility] Comment on above: Refill Request Start: 09-20-2021 Refill Сергей dolan MD Work Phone: [facility] Comment on above: Refill Request Start: 09-18-2021 ambulatory Сергей dolan MD Work Phone: [facility] Comment on above: Fatigue Start: 09-05-2021 Refill Kenyon Zuniga APRN.BULLET CASTING OPERATOR Work Phone: [facility] Comment on above: Refill Request Start: 08-06-2021 Refill Brinda manley APRN.BULLET CASTING OPERATOR Work Phone: [facility] Comment on above: Refill Request Start: 07-30-2021 ambulatory Сергей dolan MD Work Phone: [facility] Comment on above: Blood pressure Start: 07-28-2021 ambulatory Сергей dolan MD Work Phone: [facility] Comment on above: Blood pressure Start: 07-25-2021 Refill Brinda manley APRN.BULLET CASTING OPERATOR Work Phone: [facility] Comment on above: Refill Request Start: 07-24-2021 End: 07-24-2021 Office outpatient visit 25 minutes Kenyon Zuniga APRN.BULLET CASTING OPERATOR Work Phone: [facility] Comment on above: Fatigue, unspecified type (Primary Dx); Essential hypertension; Obstructive sleep apnea; Anxiety Start: 07-23-2021 ambulatory Сергей dolan MD Work Phone: [facility] Comment on above: Fatigue Fatigued Start: 07-21-2021 Refill Sona baldwin MD Work Phone: Pulmonary Medicine Comment on above: Refill Request Start: 07-08-2021 Refill Brinda Pro el [employer]IC[employer] PACK[employer] LEAK TESTER.BULLET CASTING OPERATOR Work Phone: [facility] Comment on above: Refill Request Start: 07-04-2021 Telephone encounter Sona Grier MD Work Phone: Pulmonary Medicine Comment on above: Orders Start: 07-02-2021 Refill Сергей dolan MD Work Phone: [facility] Comment on above: Refill Request Start: 06-11-2021 Refill Сергей dolan MD Work Phone: [facility] Comment on above: Refill Request Start: 06-07-2021 Coordination of care plan Elder grant [facility] Primary Care Social Work Comment on above: Encounter for suppor t and coordination of transition of care (Primary Dx) Start: 06-07-2021 Telephone encounter Sona Grier MD Work Phone: Pulmonary Medicine Comment on above: Orders ([employer]- [employer] ) Start: 06-06-2021 Refill Сергей dolan MD Work Phone: [facility] Comment on above: Refill Request multiple problems Start: 06-04-2021 ambulatory Сергей dolan MD Work Phone: [facility] Comment on above: Merna Webster Start: 06-01-2021 ambulatory Сергей dolan MD Work Phone: [facility] Comment on above: Blood pressure Start: 05-31-2021 ambulatory Сергей dolan MD Work Phone: [facility] Comment on above: Test results Start: 05-30-2021 End: 05-30-2021 Patient encounter procedure Сергей Espinoza MD Work Phone: [facility] Comment on above: Pure hypercholestero lemia (Primary Dx); Idiopathic pulmonary fibrosis (HCC); Chronic respiratory failure with hypoxia (HCC); Nonintractable headache, unspecified chronicity pattern, unspecified headache type; Anxiety; Primary insomnia; Obstructive sleep apnea; Recurrent major depressive disorder, in full remission (HCC); Acquired hypothyroidism Procedures Date Procedure Procedure Detail Performing Clinician Start: 12-01-[address] Сергей Espinoza MD Work Phone: Start: 12-01-2024 Serum inorganic phos phate measurement Dr. Сергей Espinoza MD Work Phone: Start: 11-30-[address] Matteo Espinoza MD Work Phone: Start: 11-30-[address] Сергей Espinoza MD Work Phone: Start: 10-03-[address] Noé Espinoza [...] Sona Grier MD Work Phone: Start: 01-19-2023 Electrochaea COVI D-19 VACCINE (2022- SEASON) AGE 12+ YR Сергей Espinoza MD Work Phone: Start: 11-28-2022 Radiologic exam ches t 2 views Sona Grier MD Work Phone: Start: 10-24-2022 Arthrocentesis aspir &/inj major jt/bursa w/o us Al Woods PA-C Work Phone: Start: 10-24-2022 Radex shoulder compl ete minimum 2 views Сергей Espinoza MD Work Phone: Start: 09-03-2022 Radex spine cervical 4 or 5 views Сергйе Espinoza MD Work Phone: Start: 08-22-2022 Blood [...] Author Start: 07-08-2026 Diabetes Screening Diabetes Screening [facility] Start: 05-24-2026 Diabetes Screening Diabetes Screening [facility] Start: 05-12-2026 Urine microalbumin profile [facility] Start: 08-22-2025 DIABETES SCREEN DIABETES SCREEN [facility] Start: 08-22-2025 Diabetes Screening Diabetes Screening [facility] Start: 12-01-2024 Patient discharge [facility] Start: 12-01-2024 Serum inorganic phosphate measurement [facility] Start: 11-29-2024 Admission procedure [facility] Start: 11-29-2024 Referral to gastroenterology service [facility] Start: 11-29-2024 [facility] Start: 11-27-2024 Oxygen therapy [facility] Start: 11-27-2024 Application of intermittent pneumatic compression device [facility] Start: 11-27-2024 Following clinical pathway protocol [facility] Start: 11-27-2024 Assessment of risk of venous thromboembolism [facility] Start: 11-27-2024 Inhalation therapy procedure [facility] Start: 11-27-2024 Insertion of catheter into peripheral vein [facility] Start: 11-27-2024 Measuring intake and output [facility] Start: 11-27-2024 Providing care according to standard [facility] Start: 11-27-2024 Provision of activity privileges [facility] Start: 11-27-2024 Referral to service [facility] Start: 11-27-2024 [facility] Start: 11-27-2024 Verification routine [facility] Start: 11-27-2024 Admission procedure [facility] Start: 10-28-2024 DIABETES SCREEN DIABETES SCREEN [facility] Start: 05-30-2024 DIABETES SCREEN DIABETES SCREEN [facility] Start: 03-29-2024 End: 03-29-2024 Patient encounter procedure 03/29/2024 1:30 PM EST Office Visit Pulmonary Medicine [address] [place] [address] Kita Ocampo MD [address] [place], [place] [id number] Interstitial pulmonary disease (HCC) [J84.9] Pulmonary Medicine Comment on above: Interstitial pulmonary disease (HCC) [J8 4.9] Start: 02-22-2024 End: 02-22-2024 Patient encounter procedure 02/22/2024 8:20 AM EST Office Visit Cardiology [address] [place] [id number] Roberto Howard MD [address], [address] [place] [address] SOB (shortness of breath) [R06.02] Cardiology Comment on above: SOB (shortness of breath) [R06.02] Start: 11-11-2023 End: 11-11-2023 Patient encounter procedure 11/11/2023 3:00 PM EDT Office Visit [facility] [address] [address] Сергей Espinoza MD [address] [place] [address] 4 mo follow up [facility] Comment on above: 4 mo follow up Start: 11-05-2023 End: 11-05-2023 Patient encounter procedure 11/05/2023 3:00 PM EDT Office Visit [facility] [address] [address] Сергей Espinoza MD [address] [place] [address] 4 mo follow up [facility] Comment on above: 4 mo follow up Start: 11-01-2023 Covid-19 Vaccine ( season) Covid-19 Vaccine ( season) [facility] Start: 11-01-2023 Covid-19 Vaccine ( season) Covid-19 Vaccine ( season) [facility] Start: 11-01-2023 Influenza [facility] Start: 09-30-2023 End: 09-30-2023 Patient encounter procedure 09/30/2023 2:40 PM EDT Office Visit Cardiology [address] [place], [place] [id number] Igor Johnson DO [address] [place] [address] 3 month follow up Cardiology Comment on above: 3 month follow up Start: 09-25-2023 End: 09-25-2023 Patient encounter procedure 09/25/2023 3:00 PM EDT Office Visit Pulmonary Medicine [address] [address] Mouna Dillard APRN.BULLET CASTING OPERATOR [address] [address] Interstitial pulmonary disease (HCC) [J84.9] Pulmonary Medicine Comment on above: Interstitial pulmonary disease (HCC) [J8 4.9] Start: 09-25-2023 End: 09-25-2023 ambulatory 09/25/2023 2:15 PM EDT Procedure Pulmonary Medicine [address] [address] [address] Interstitial pulmonary disease (HCC) [J84.9] Pulmonary Medicine Comment on above: Interstitial pulmonary disease (HCC) [J8 4.9] Start: 09-25-2023 End: 09-25-2023 ambulatory Pulmonary Medicine Comment on above: Interstitial pulmonary disease (HCC) [J8 4.9] Start: 09-18-2023 End: 09-18-2023 Patient encounter procedure 09/18/2023 2:00 PM EDT Appointment Cat Scan [address] [place] [address] Interstitial pulmonary disease (HCC) [J84.9] Cat Scan Comment on above: Interstitial pulmonary disease (HCC) [J8 4.9] Start: 08-29-2023 End: 08-29-2023 Patient encounter procedure 08/29/2023 11:20 AM EDT Office Visit Internal Medicine [place] [address] [address] Сергей Espinoza MD [address] [place] [address] 3 month follow up [facility] Medicine [facility] Comment on above: 3 month follow up Start: 08-28-2023 End: 08-28-2023 Patient encounter procedure 08/28/2023 2:30 PM EDT Office Visit Pulmonary Medicine [address] [address] Mouna Dillard APRN.BULLET CASTING OPERATOR [address] [address] follow up Pulmonary Medicine Comment on above: follow up Start: 08-28-2023 End: 08-28-2023 ambulatory Pulmonary Medicine Comment on above: Interstitial pulmonary disease (HCC) [J8 4.9] Start: 08-18-2023 End: 08-18-2023 Patient encounter procedure 08/18/2023 2:20 PM EDT Appointment [facility] [address] [facility] [place] [address] Interstitial pulmonary disease (HCC) [J84.9] Cat Scan [...] 2:20 PM EDT Office Visit Internal Medicine [place] [address] [id number] Сергей Espinoza MD [address] [place], [place] [id number] Getting things together to be able to go to [facility] and l also have to get approval for,Medicaid ok per Dr. espinoza Internal Medicine [place] Comment on above: Getting things together to be able to go to [facility] and l also have to get approval for,Medicaid ok per Dr. espinoza Start: 07-13-2023 End: 10-12-2023 Urinalysis complete panel - Urine URINALYSIS, WITH MICROSCOPIC Lab Routine Dysuria Expected: 07/13/2023, Expires: 10/12/2023 [facility] Work Phone: Comment on above: Expected: 07/13/2023, Expires: Start: 07-13-2023 End: 07-13-2023 ambulatory 07/13/2023 1:15 PM EDT Results Only Marcela Reddick [facility] [address] [place] [address] Marcela Reddick [facility] Start: 07-10-2023 End: 10-09-2023 CBC W Auto Differential panel - Blood COMPLETE BLOOD COUNT AND DIFFERENTIAL Lab Routine Hyponatremia Anemia, unspecified type Expected: 07/10/2023, Expires: 10/09/2023 [facility] Comment on above: Expected: 07/10/2023, Expires: Start: 07-10-2023 End: 10-09-2023 Folate [Mass/volume] in Serum or Plasma FOLATE, SERUM Lab Routine Hyponatremia Anemia, unspecified type Expected: 07/10/2023, Expires: 10/09/2023 [facility] Comment on above: Expected: 07/10/2023, Expires: Start: 07-10-2023 End: 10-09-2023 Osmolality of Serum or Plasma OSMOLALITY Lab Routine Hyponatremia Anemia, unspecified type Expected: 07/10/2023, Expires: 10/09/2023 [facility] Comment on above: Expected: 07/10/2023, Expires: Start: 07-10-2023 End: 10-09-2023 Osmolality of Urine OSMOLALITY URINE Lab Routine Hyponatremia Anemia, unspecified type Expected: 07/10/2023, Expires: 10/09/2023 [facility] Comment on above: Expected: 07/10/2023, Expires: Start: 07-10-2023 End: 10-09-2023 RETICULOCYTE COUNT RETICULOCYTE COUNT Lab Routine Hyponatremia Anemia, unspecified type Expected: 07/10/2023, Expires: 10/09/2023 [facility] Comment on above: Expected: 07/10/2023, Expires: Start: 07-10-2023 End: 10-09-2023 Sodium [Moles/volume] in Urine collected for unspecified duration SODIUM RANDOM URINE Lab Routine Hyponatremia Anemia, unspecified type Expected: 07/10/2023, Expires: 10/09/2023 [facility] Work Phone: Comment on above: Expected: 07/10/2023, Expires: Start: 07-09-2023 End: 07-09-2023 Patient encounter procedure 07/09/2023 8:00 AM EDT Office Visit Internal Medicine [place] [address] [address] Сергей Espinoza MD [address] [place] [address] skilled nursing visit physical [place] per dr espinoza Internal Medicine [place] Comment on above: skilled nursing visit physical [place] per dr loan dolan Start: 07-08-2023 End: 07-08-2023 ambulatory 07/08/2023 2:00 PM EDT Results Only Marcela Reddick [facility] [address] [place] [address] Marcela Reddick [facility] Start: 07-07-2023 End: 07-07-2023 ambulatory 07/07/2023 2:30 PM EDT Results Only [place] Reddick [facility] [address] [place] [address] Marcela Reddick [facility] Start: 06-30-2023 End: 06-30-2023 Patient encounter procedure 06/30/2023 3:00 PM EDT Office Visit Cardiology [address] [address] Mouna Ochoa, [employer] LEAK TESTER.BULLET CASTING OPERATOR [address] [address] follow up Cardiology Comment on above: follow up Start: 06-30-2023 End: 09-29-2023 Lipid 1996 panel - Serum or Plasma LIPID PANEL BASIC Lab Routine Pure hypercholesterolemia Expected: 06/30/2023, Expires: 09/29/2023 [facility] Work Phone: Comment on above: Expected: 06/30/2023, Expires: Start: 05-20-2023 Covid-19 Vaccine () Covid-19 Vaccine () [facility] Start: 03-16-2023 Covid-19 Vaccine () Covid-19 Vaccine () [facility] Start: 03-02-2023 Advance Directive Discussion Advance Directive Discussion [facility] Start: 02-14-2023 ANNUAL PCP TEAM CHRONIC DISEASE VISIT ANNUAL PCP TEAM CHRONIC DISEASE VISIT [facility] Start: 12-13-2022 ANNUAL PCP TEAM CHRONIC DISEASE VISIT ANNUAL PCP TEAM CHRONIC DISEASE VISIT [facility] Start: 10-31-2022 Covid-19 Vaccine () Covid-19 Vaccine () [facility] Start: 10-31-2022 Influenza vaccination [facility] Start: 07-24-2022 ANNUAL PCP TEAM CHRONIC DISEASE VISIT ANNUAL PCP TEAM CHRONIC DISEASE VISIT [facility] Start: 07-09-2022 End: 05-11-2023 Ct thorax w/o contrast material [facility] Work Phone: Comment on above: Expected: 07/09/2022, Expires: 1 Occurrences starti ng 07/09/2022 until 07/09/2022 Start: 05-30-2022 ANNUAL PCP TEAM CHRONIC DISEASE VISIT ANNUAL PCP TEAM CHRONIC DISEASE VISIT [facility] Start: 05-06-2022 End: 07-06-2022 SCHEDULE LAB TESTING SCHEDULE LAB TESTING Lab Routine Expected: 05/06/2022, Expires: 07/06/2022 [facility] Work Phone: Comment on above: Expected: 05/06/2022, Expires: Start: 04-15-2022 COVID-19 VACCINE (5 - Pfizer series) COVID-19 VACCINE (5 - Pfizer series) [facility] Start: 03-02-2022 ADVANCE DIRECTIVE DISCUSSION ADVANCE DIRECTIVE DISCUSSION [facility] Start: 01-28-2022 End: 11-27-2022 Ct thorax w/o contrast material CT CHEST WO IVCON Radiology Routine Interstitial pulmonary disease (HCC) Expected: 01/28/2022, Expires: 11/27/2022 [facility] Work Phone: Comment on above: Expected: 01/28/2022, Expires: 3 Start: 10-31-2021 Influenza vaccination [facility] Start: 07-04-2021 COVID-19 VACCINE (4 - Booster for Pfizer series) COVID-19 VACCINE (4 - Booster for Pfizer series) [facility] Start: 05-01-2021 COVID-19 VACCINE (4 - Booster for Pfizer series) COVID-19 VACCINE (4 - Booster for Pfizer series) [facility] Start: 10-31-2020 Influenza vaccination INFLUENZA (#1) [facility] Start: 2016 RSV Vaccine (1 - 1-dose 75+ series) RSV Vaccine (1 - 1-dose 75+ series) [facility] Start: 09-05-2007 Screening for osteoporosis Bone Density Screening [facility] Start: 2001 RSV Vaccine (1 - 1-dose 60+ series) RSV Vaccine (1 - 1-dose 60+ series) [facility] Start: 1959 BP CONTROLLED (<130/80) BP CONTROLLED (<130/80) [facility] Start: 1947 PNEUMOCOCCAL: 65+ (1 - PCV) PNEUMOCOCCAL: 65+ (1 - PCV) [facility] Anion gap in Serum o r Plasma [facility] Anion gap in Serum o r Plasma [facility] Anion gap in Serum o r Plasma [facility] BUN/Creatinine ratio [facility] BUN/Creatinine ratio [facility] BUN/Creatinine ratio [facility] Calcium [Mass/volume ] in Serum or Plasma [facility] Calcium [Mass/volume ] in Serum or Plasma [facility] Calcium [Mass/volume ] in Serum or Plasma [facility] Carbon dioxide, tota l [Moles/volume] in Central venous blood [facility] Carbon dioxide, tota l [Moles/volume] in Central venous blood [facility] Carbon dioxide, tota l [Moles/volume] in Central venous blood [facility] Creatinine [Mass/vol ume] in Serum or Plasma [facility] Creatinine [Mass/vol ume] in Serum or Plasma [facility] Creatinine [Mass/vol ume] in Serum or Plasma [facility] CT Chest WO contrast CT CHEST WO IVCON Radiology Routine Interstitial pulmonary disease (HCC) 09/18/2023 2:41 PM EDT [facility] Work Phone: End: 11-29-2023 ECG COMPLETE ECG COMPLETE ECG Routine SOB (shortness of breath) 1 Occurrences starting 11/28/2022 until 11/29/2023 [facility] Work Phone: Comment on above: 1 Occurrences starting 11/28/2022 until 11/29/2023 End: 11-29-2023 Echocardiography ECHO Cardiology Routine SOB (shortness of breath) 1 Occurrences starting 11/28/2022 until 11/29/2023 [facility] Work Phone: Comment on above: 1 Occurrences starting 11/28/2022 until 11/29/2023 Erythrocyte mean corpuscular volume determination [facility] Erythrocyte mean corpuscular volume determination [facility] Erythrocyte mean corpuscular volume determination [facility] Glucose [Mass/volume ] in Serum or Plasma [facility] Glucose [Mass/volume ] in Serum or Plasma [facility] Glucose [Mass/volume ] in Serum or Plasma [facility] Hematocrit [Volume Fraction] of Blood [facility] Hematocrit [Volume Fraction] of Blood [facility] Hematocrit [Volume Fraction] of Blood [facility] Hemoglobin [Mass/vol ume] in Blood [facility] Hemoglobin [Mass/vol ume] in Blood [facility] Hemoglobin [Mass/vol ume] in Blood [facility] Leukocytes [#/volume ] in Blood [facility] Leukocytes [#/volume ] in Blood [facility] Leukocytes [#/volume ] in Blood [facility] End: 11-27-2022 LUNG DIFFUSION CAPACITY (DLCO) LUNG DIFFUSION CAPACITY (DLCO) PFT Routine Interstitial pulmonary disease (HCC) 1 Occurrences starting 10/28/2021 until 11/27/2022 [facility] Work Phone: Comment on above: 1 Occurrences starting 10/28/2021 until 11/27/2022 End: 06-04-2023 LUNG DIFFUSION CAPACITY (DLCO) LUNG DIFFUSION CAPACITY (DLCO) PFT Routine Idiopathic pulmonary fibrosis (HCC) Chronic respiratory failure with hypoxia (HCC) Mild persistent asthma without complication 1 Occurrences starting 05/05/2022 until 06/04/2023 [facility] Work Phone: Comment on above: 1 Occurrences starting 05/05/2022 until 06/04/2023 End: 11-27-2022 LUNG VOLUMES LUNG VOLUMES PFT Routine Interstitial pulmonary disease (HCC) 1 Occurrences starting 10/28/2021 until 11/27/2022 [facility] Work Phone: Comment on above: 1 Occurrences starting 10/28/2021 until 11/27/2022 End: 06-04-2023 LUNG VOLUMES LUNG VOLUMES PFT Routine Idiopathic pulmonary fibrosis (HCC) Chronic respiratory failure with hypoxia (HCC) Mild persistent asthma without complication 1 Occurrences starting 05/05/2022 until 06/04/2023 [facility] Work Phone: Comment on above: 1 Occurrences starting 05/05/2022 until 06/04/2023 Magnesium measurement [facility] Mean corpuscular hemoglobin concentration determination [facility] Mean corpuscular hemoglobin concentration determination [facility] Mean corpuscular hemoglobin concentration determination [facility] Mean corpuscular hemoglobin determination [facility] Mean corpuscular hemoglobin determination [facility] Mean corpuscular hemoglobin determination [facility] Measurement of renal function [facility] Measurement of renal function [facility] Measurement of renal function [facility] Neutrophil count [facility] Neutrophil count [facility] Neutrophil count [facility] Neutrophil percent differential count [facility] Neutrophil percent differential count [facility] Neutrophil percent differential count [facility] OUTSIDE VENDOR CARDI AC OUTPATIENT EXTENDED RHYTHM RECORDING (WITHOUT TELEMETRY) OUTSIDE VENDOR CARDIAC OUTPATIENT EXTENDED RHYTHM RECORDING (WITHOUT TELEMETRY) Holter Routine Palpitations Ordered: 01/19/2023 [facility] Work Phone: Comment on above: Ordered: 01/19/2023 OUTSIDE VENDOR CARDI AC OUTPATIENT EXTENDED RHYTHM RECORDING (WITHOUT TELEMETRY) OUTSIDE VENDOR CARDIAC OUTPATIENT EXTENDED RHYTHM RECORDING (WITHOUT TELEMETRY) Holter Routine DON (dyspnea on exertion) Palpitations Essential hypertension Pure hypercholesterolemia Obstructive sleep apnea DNR (do not resuscitate) Ordered: 04/23/2023 [facility] Work Phone: Comment on above: Ordered: 04/23/2023 End: 04-30-2023 OXIMETRY WITH AMBULATION OXIMETRY WITH AMBULATION PFT Routine Chronic respiratory failure with hypoxia (HCC) 1 Occurrences starting 03/31/2022 until 04/30/2023 [facility] Work Phone: Comment on above: 1 Occurrences starting 03/31/2022 until 04/30/2023 Platelets [#/volume] in Blood [facility] Platelets [#/volume] in Blood [facility] Platelets [#/volume] in Blood [facility] Potassium measurement [facility] Potassium measurement [facility] Potassium measurement [facility] End: 09-21-2023 Radex spine cervical 4 or 5 views XR CERV OTHER 4V AP/LAT/OBL Radiology Routine Neck pain 1 Occurrences starting 08/22/2022 until 09/21/2023 [facility] Work Phone: Comment on above: 1 Occurrences starting 08/22/2022 until 09/21/2023 Red blood cell count [facility] Red blood cell count [facility] Red blood cell count [facility] Red cell distributio n width determination [facility] Red cell distributio n width determination [facility] Red cell distributio n width determination [facility] Serum chloride measurement [facility] Serum chloride measurement [facility] Serum chloride measurement [facility] Sodium measurement [facility] Sodium measurement [facility] Sodium measurement [facility] End: 06-04-2023 SPIROMETRY - BASELINE AND POST DILATOR SPIROMETRY - BASELINE AND POST DILATOR PFT Routine Idiopathic pulmonary fibrosis (HCC) Chronic respiratory failure with hypoxia (HCC) Mild persistent asthma without complication 1 Occurrences starting 05/05/2022 until 06/04/2023 [facility] Work Phone: Comment on above: 1 Occurrences starting 05/05/2022 until 06/04/2023 End: 11-27-2022 SPIROMETRY WITH DILATOR IF OBSTRUCTED SPIROMETRY WITH DILATOR IF OBSTRUCTED PFT Routine Interstitial pulmonary disease (HCC) 1 Occurrences starting 10/28/2021 until 11/27/2022 [facility] Work Phone: Comment on above: 1 Occurrences starting 10/28/2021 until 11/27/2022 Transferrin [Mass/volume] in Serum or Plasma [facility] Urea nitrogen [Mass/volume] in Serum or Plasma [facility] Urea nitrogen [Mass/volume] in Serum or Plasma [facility] Urea nitrogen [Mass/volume] in Serum or Plasma [facility] End: 03-16-2023 XR HIP BILATERAL 5V PEL/AP/LAT EACH HIP XR HIP BILATERAL 5V PEL/AP/LAT EACH HIP Radiology Routine Right hip pain 1 Occurrences starting 02/14/2022 until 03/16/2023 [facility] Work Phone: Comment on above: 1 Occurrences starting 02/14/2022 until 03/16/2023 End: 11-07-2023 XR KNEE GENERAL 4V AP BOTH/PA BOTH/LAT/MERC BILATERAL XR KNEE GENERAL 4V AP BOTH/PA BOTH/LAT/MERC BILATERAL Radiology Routine Pain 1 Occurrences starting 10/08/2022 until 11/07/2023 [facility] Work Phone: Comment on above: 1 Occurrences starting 10/08/2022 until 11/07/2023 End: 09-21-2023 XR RIBS/CHEST 3V AP RIB/OBLS/CXR LEFT XR RIBS/CHEST 3V AP RIB/OBLS/CXR LEFT Radiology Routine Rib pain on left side 1 Occurrences starting 08/22/2022 until 09/21/2023 [facility] Work Phone: Comment on above: 1 Occurrences starting 08/22/2022 until 09/21/2023 [facility] Immunizations Immunization Date Immunization Notes Care Provider [facility] 01-19-2023 COVID-19 vaccine, ag e 12+ yr, season (PFIZER-BIONTECH) Сергей Espinoza MD Work Phone: [facility] 11-12-2022 influenza (HD-IIV4) vaccine, age 65+ yr, high dose, quadrivalent, PF (FLUZONE HIGH-DOSE) Kenyon Zuniga APRN.[facility] Work Phone: [facility] 11-12-2022 influenza virus vacc ine, unspecified formulation Sona Grier MD Work Phone: [facility] 12-13-2021 COVID-19 booster vaccine, age 12+ yr, bivalent (PFIZER-BIONTECH) Сергей Espinoza MD Work Phone: [facility] 12-13-2021 influenza, high-dose , quadrivalent vaccine (FLUZONE HIGH DOSE QUADRIVALENT) Сергей Espinoza MD Work Phone: [facility] 12-13-2021 influenza virus vacc ine, unspecified formulation Сергей Espinoza MD Work Phone: [facility] 05-04-2020 COVID-19 vaccine, ag e 12+ yr (PFIZER-BIONTECH - PURPLE TOP) Сергей Espinoza MD Work Phone: [facility] Work Phone: 2020 COVID-19 vaccine, ag e 12+ yr ([employer] Extra-3Funnel - PURPLE TOP) Сергей Espinoza MD Work Phone: [facility] 01-04-2020 influenza, high-dose , quadrivalent vaccine (FLUZONE HIGH DOSE QUADRIVALENT) Сергей Espinoza MD Work Phone: [facility] 11-03-2019 zoster vaccine recombinant Сергей Espinoza MD Work Phone: [facility] 08-18-2019 zoster vaccine recombinant Сергей Espinoza MD Work Phone: [facility] 12-15-2018 influenza, high dose seasonal, preservative-free Сергей Espinoza MD Work Phone: [facility] 01-28-2018 influenza, high dose seasonal, preservative-free Сергей Espinoza MD Work Phone: [facility] 12-26-2016 influenza, high dose seasonal, preservative-free Сергей Espinoza MD Work Phone: [facility] Work Phone: 05-12-2016 tetanus toxoid, redu kit diphtheria toxoid, and acellular pertussis vaccine, adsorbed Сергей Espinoza MD Work Phone: [facility] 03-25-2016 influenza, high dose seasonal, preservative-free Сергей Espinoza MD Work Phone: [facility] 10-10-2014 pneumococcal conjuga te vaccine, 13 valent Сергей Espinoza MD Work Phone: [facility] 12-20-2013 influenza, seasonal, injectable Сергей Espinoza MD Work Phone: [facility] 12-20-2013 pneumococcal polysaccharide vaccine, 23 valent Сергей Espinoza MD Work Phone: [facility] 01-12-2012 influenza virus vacc ine, unspecified formulation Сергей Espinoza MD Work Phone: [facility] Work Phone: 12-14-2009 influenza virus vacc ine, unspecified formulation Сергей Espinoza MD Work Phone: [facility] Work Phone: 01-09-2007 influenza virus vacc ine, unspecified formulation Сергей Espinoza MD Work Phone: [facility] 07-07-2006 pneumococcal polysaccharide vaccine, 23 valent Сергей Espinoza MD Work Phone: [facility] 12-31-2005 influenza virus vacc ine, unspecified formulation Сергей Espinoza MD Work Phone: [facility] 01-09-2005 influenza virus vacc ine, unspecified formulation Сергей Espinoza MD Work Phone: [facility] Work Phone: 12-05-2003 influenza virus vacc natasha, unspecified formulation Сергей Espinoza MD Work Phone: [facility] 12-17-2002 influenza virus vacc ine, unspecified formulation Сергей Espinoza MD Work Phone: [facility] Payers Date Payer Category Payer Self-pay 2024 Unknown [id number] 2024 Unknown [id number] 2023 Medicaid MEDICAID [facility] MEDICAID [id number] 2023-Present [phone] [address] [place] [address] Medicaid [id number] 2021 Medicare HUMANA MEDICARE HUMANA GOLD PLUS [id number] 2021-Present [phone] [address] [address] [place] [address] O [id number] 2020 Medicare [id number] 2020 Medicare [id number] 1941 Unknown [id number] [id number] Unknown HUMANJose M [facility] PREFERRED MEDICARE PLAN Unknown [id number] Unknown [id number] [id number] Unknown [id number] 2.16.840.1.355535.3.579.2.462 Unknown [id number] 2.16.840.1.656746.3.579.2.462 Unknown [id number] 2..840.1.423818.3.579.2.462 Unknown [id number] 2.840.1.617556.3.579.2.462 Unknown [id number] 2..840.1.888857.3.579.2.462 Unknown [id number] 2.840.1.836173.3.579.2.462 Unknown [id number] 2.840.1.252302.3.579.2.462 Unknown [id number] 2.840.1.489226.3.579.2.462 Unknown [id number] 2.840.1.003876.3.579.2.462 Unknown [id number] 2.840.1.469749.3.579.2.462 Unknown [id number] 2.16840.1.392157.3.579.2.462 Unknown [id number] 2.840.1.819049.3.579.2.462 Unknown [id number] 2.16.840.1.642794.3.579.2.462 Unknown [id number] 2.840.1.521795.3.579.2.462 Unknown [id number] 2.16.840.1.658257.3.579.2.462 Unknown [id number] 2.16.840.1.462170.3.579.2.462 Unknown [id number] 2.16.840.1.377334.3.579.2.462 Unknown [id number] 2.16.840.1.546922.3.579.2.462 Unknown [id number] 2.16.840.1.239829.3.579.2.462 Unknown [id number] 2.16.840.1.664573.3.579.2.462 Unknown [id number] 2.16.840.1.423949.3.579.2.462 Unknown [id number] 2.16.840.1.641249.3.579.2.462 Unknown [id number] 2.16.840.1.390369.3.579.2.462 Unknown [id number] Unknown [id number] Unknown [id number] Unknown [id number] Unknown [id number] Unknown [id number] Unknown [id number] Unknown [id number] Unknown [id number] Unknown [id number] Unknown [id number] Unknown [id number] Social History Date Type Detail Facility Start: 02-15-2012 End: 12-16-2024 Tobacco smoking status NHIS Never smoked tobacco [facility] Start: 12-21-2020 End: 09-25-2023 Alcohol intake Current non-drinker of alcohol (finding) [facility] Start: 05-29-2021 End: 02-13-2022 History SDOH Alcohol Frequency 1 [facility] Start: 05-29-2021 End: 02-13-2022 History SDOH Alcohol Std Drinks 98 [facility] Start: 05-29-2021 End: 02-13-2022 History SDOH Social Connections Phone 5 [facility] Start: 05-29-2021 End: 02-13-2022 History SDOH Social Connections Get Together 2 [facility] Start: 05-29-2021 End: 02-13-2022 History SDOH Social Connections Anabaptist 3 [facility] Start: 05-29-2021 History SDOH Physical Activity DPW 7 [facility] Start: 05-17-2019 Education 12 [facility] Start: 1940 Sex Assigned At Female [facility] Start: 05-20-2021 End: 12-30-2021 Exposure to SARS-CoV-2 (event) Not sure [facility] Start: 02-15-2012 End: 03-24-2023 Tobacco use and exposure Smokeless tobacco non-user [facility] Start: 02-13-2022 History SDOH Alcohol Std Drinks 0 [facility] Start: 02-12-2022 End: 08-25-2023 Never a smoker Never a smoker [facility] Start: 02-12-2022 End: 08-25-2023 Social connection and isolation panel [facility] How often do you get together with friends or relatives? Patient refused [facility] Do you belong to any clubs or organizations such as synagogue groups, unions, fraternal or athletic groups, or school groups? Yes [facility] Are you now , , , , never or living with a partner? [facility] How often to you hav e a drink containing alcohol? Never [facility] Do you feel stress - tense, restless, nervous, or anxious, or unable to sleep at night because your mind is troubled all the time - these days [OSQ] To some extent [facility] (I/We) worried casey er (my/our) food would run out before (I/we) got money to buy more. Never true [facility] At any time in the p ast 12 months, were you homeless or living in nursing home [including now]? No [facility] Start: 03-30-2020 Gender identity Identifies as female gender (finding) [facility] Start: 03-30-2020 Sexual orientation Heterosexual (finding) [facility] History of tobacco use Passive smoker [facility] How hard is it for y ou to pay for the very basics like food, housing, medical care, and heating Not very hard [facility] Do you feel stress - tense, restless, nervous, or anxious, or unable to sleep at night because your mind is troubled all the time - these days [OSQ] Very much [facility] Do you feel stress - tense, restless, nervous, or anxious, or unable to sleep at night because your mind is troubled all the time - these days [OSQ] Only a little [facility] Start: 06-07-2024 Sex Female (finding) [facility] Goals Date Patient Goal Desired Activity /State Personal health goal Functional Status Date Assessment Result Facility 12-01-2024 Functional status Ambulates [facility] Work Phone: 11-30-2024 Functional status Activity Abili ty Standby Assist [facility] Work Phone: 11-29-2024 Functional status Amb[facility] Work Phone: Mental Status Date Assessment Result Facility 12-01-2024 Cognitive function Voice/Name [facility] Work Phone: 11-30-2024 Cognitive function Voice/Name [facility] Work Phone: Clinical Notes 05-22-2016 to 12-01-2024 Note Date & Type Note Facility 12-01-2024 Progress note Note Date/Time December 01, 2024 4:28pm [facility] Medical Records Department [address] [place] [address] Progress Note 12/01/241625 MR#: [id number] Acct: [id number] Name: MERNA WEBSTER Rep #:[id number] : 1940 84 From: Eric Salazar DO PCP: Dr. Сергей Espinoza MD Status:A DM IN Location: [place] [address] Progress Note Patient underwent colonoscopy yesterday. She is not having any abdominal pain, cramping, chest pain or shortness of breath. She is tolerating normal diet. She is not on anticoagulation or antiplatelet therapy. Plan is for her to transfer back to rehab. Physical Exam Narrative GENERAL: cooperative HEENT: Atraumatic; normocephalic EYES; Anicteric, Normal Conjunctiva NECK; supple, normal thyroid, RESPIRATORY: Diminished to auscultation CARDIOVASCULAR: Regular S1 S2, GI: soft, normoactive bowel sounds, : No Renal angle tenderness; EXTREMITIES: No edema, no clubbing, MUSCULOSKELETAL: no muscle wasting NEURO: Awake; no lateralizing signs. SKIN: No Rash PSYCH; Flat affect Assessment & Plan Assessment/Plan (1) Bright red blood per rectum: PLAN: Plan Bright red blood per rectum with positive orthostatic vital signs/GERD ?Hemoglobin on morning labs yesterday was 7.9, afternoon was 8.2 but this morning at 7.9 again ? Her hemoglobin seems to be stable. She underwent colonoscopy all way to the terminal ileum and was discovered to have multiple adenomatous polyps as likely etiology of her acute blood loss anemia. She is doing very well without any complications at this time. I am okay with her being transferred to skilled nursing or rehab services. Visit Charges Inpatient E&M: 71010 Subs Hosp L3 12/01/241627 <Electronically signed by Eric Salazar DO> Eric Salazar DO Cosigner Signature (if applicable): CC: ~ Signed [facility] Work Phone: 1(629) 990-848010-02-2025 Progress note [facility] Medical Records Department [address] [place] [address] Progress Note 12/01/246 MR#: [id number] Acct: [id number] Name: MERNA WEBSTER Rep #:[id number] : 1940 84 From: Eric Salazar DO PCP: Dr. Сергей Espinoza MD Status:A DM IN Location: [address] Progress Note Patient underwent colonoscopy yesterday. She is not having any abdominal pain, cramping, chest painor shortness of breath. She is tolerating normal diet. She is not on anticoagulation or antiplatelet therapy. Plan is for her to transfer back to rehab. Physical Exam Narrative GENERAL: cooperative HEENT: Atraumatic; normocephalic EYES; Anicteric, Normal Conjunctiva NECK; supple, normal thyroid, RESPIRATORY: Diminished to auscultation CARDIOVASCULAR: Regular S1 S2, GI: soft, normoactive bowel sounds, : No Renal angle tenderness; EXTREMITIES: No edema, no clubbing, MUSCULOSKELETAL: no muscle wasting NEURO: Awake; no lateralizing signs. SKIN: No Rash PSYCH; Flat affect Assessment & Plan Assessment/Plan (1) Bright red blood per rectum: PLAN: Plan Bright red blood per rectum with positive orthostatic vital signs/GERD ?Hemoglobin on morning labs yesterday was 7.9, afternoon was 8.2 but this morning at 7.9 again ? Her hemoglobin seems to be stable. She underwent colonoscopy all way to the terminal ileum and was discovered to have multiple adenomatous polyps as likely etiology of her acute blood loss anemia. She is doing very well without any complications at this time. I am okay with her being transferred to skilled nursing or rehab services. Visit Charges Inpatient E&M: 56688 Subs Hosp L3 12/01/24 1628 Eric Salazar DO Cosigner Signature (if applicable): CC: ~ Signed [facility]10-02-2025 Discharge summary Author Weston Choudhary [facility] Note Date/Time December 01, 2024 1: 47pm [facility] Medical Records Department [address] [place] [address] Transfer to Extended Care MR#: [id number] Acct: [id number] Name: MERNA WEBSTER Rep #:[id number] : 1940 84 From: Weston Choudhary MD PCP: Dr. Сергей Espinoza MD Status:A DM IN Certification of patient admission REQUIRED AT TIME OF ADMISSION. I CERTIFY THAT POST-HOSPITAL ECF SERVICES ARE REQUIRED TO BE GIVEN ON AN IN-PATIENT BASIS BECAUSE OF THE ABOVE NAMED PATIENT'S NEED FOR FDC CARE ON A CONTINUING BASIS FOR THE CONDITION(S) FOR WHICH HE/SHE WAS RECEIVING IN-PATIENT HOSPITAL SERVICES PRIOR TO HIS/HER TRANSFER TO THE ECF. 12/01/24 7077<Electronically signed by Weston Choudhary MD> Diet Diet Order/Speech Therapy: INPATIENT Hospital Diet / Speech Therapy Order(s) 11/30/24 16:10 Diet: Regular - General Routine Orders/Code Status Code Status: Full Code DC O2, CPAP, BIPAP needs Home O2 Discharge instructions: Yes Type of respiratory needs?: Oxygen Oxygen frequency: Continuous Continuous oxygen liters per minute: 2 Therapies Physical Therapy: Eval and Treat Occupational Therapy: Eval and Treat Problem/Diagnosis (1) Bright red blood per rectum: Status: Acute Code(s): K62.5 - Hemorrhage of anus and rectum Plan Patient is an 84-year-old lady resident at [facility] who presented to the emergency department with rectal bleeding 1. Hematochezia ? Patient hemoglobin on admission was 7.9. Was admitted to monitored bed consult placed to Dr. Salazar with GI patient underwent colonoscopy on 11/30/2024 findings and recommendations as below Findings - Preparation of the colon was fair. - Diverticulosis in the entire examined colon. - Two bleeding colonic angiodysplastic lesions. Treated with a monopolar probe. - Stool in the rectum, in the recto-sigmoid colon, in the sigmoid colon, in the descending colon, at the splenic flexure and in the cecum. - Four 15 mm polyps in the sigmoid colon, at the splenic flexure, at the hepaticflexure and in the cecum, removed with a hot snare. Resected and retrieved. - A tattoo was seen in the transverse colon and at the hepatic flexure. The tattoo site appeared normal. Recommendations : - Await pathology results. - Repeat colonoscopy because the bowel preparation was poor. 2. Anemia ? Secondary to acute blood loss anemia monitoring H&H and transfuse if patient becomes symptomatic or hemoglobin falls below 7 ? 12/01/2024Patient seen hemoglobin did drop to 7.9 patient subsequently started on iron plan is for patient to be assessed for discharge 3. Hypothyroidism ? Patient is on levothyroxine home dose continued 4. Allergic rhinitis ? Patient is on fexofenadine 5. Dyslipidemia ?Patient is on statin therapy, continued at home dose 6. Chronic hypoxic respiratory failure Secondary to pulmonary fibrosis patient is on home oxygen 3 L at rest 7. Pulmonary fibrosis ? Patient is on pirfenidone held on admission plan is to resume on discharge 8. GERD ? Patient on PPI 9. Anxiety disorder ? Patient is on alprazolam 10. Hypertension ? Blood pressure controlled, home medications continued with dose adjustment as needed 11. DVT prophylaxis ? SCDs only given patient presentation Time spent in the patient's overall evaluation,decision-making process, review of diagnostic data, adjustment of management, discussion with other providers, nursing nursing and ancillary staff involved in patient's care documentation, 35minutes Allergies/Procedures Done in Hospital Allergies amoxicillin Allergy (Mild, Verified 11/27/24 15:00) PT UNSURE OF REACTION aspirin Allergy (Mild, Verified 11/27/24 15:00) PALPITATIONS ibuprofen Allergy (Mild, Verified 11/27/24 15:00) Swelling montelukast Allergy (Mild, Verified 11/27/24 15:00) Rash rofecoxib Allergy (Mild, Verified 11/27/24 15:00) Itching Sulfa (Sulfonamide Antibiotics) Allergy (Mild, Verified 11/27/24 15:00) Rash doxycycline Adverse Reaction (Mild, Verified 11/27/24 15:00) GI UPSET lisinopril Adverse Reaction (Mild, Verified 11/27/24 15:00) GI UPSET sertraline Adverse Reaction (Mild, Verified 11/27/24 15:00) Diarrhea Type of Care/Length of Stay Estimated LOS: More Than 30 Days Type of Care Needed: Skilled Rehab Potential: Fair Prognosis: Fair Additional Orders/Day of Discharge Day of Discharge: 12/01/24 Discharge Plan Admission Admit Date/Time: 11/29/24 17:11 Attending Provider: Weston Choudhary Primary Care Provider: Сергей Espinoza Consulting Providers: Mariela Lilly; Johan Adam; Eric Salazar; Aundrea Buckner; Brinda Wright; Elisa Paulson; Brayden Abdullahi Discharge Orders/Prescriptions Prescriptions: New polysaccharide iron complex [Ferrex 150] 150 mg iron Capsule 150 mg PO DAILY 60 Days Qty: 60 0RF Continued acetaminophen [Tylenol Extra Strength] 500 mg tablet 500 mg PO Q6H PRN (Reason: fever or pain) famotidine 20 mg tablet 20 mg PO QDAY fexofenadine 180 mg tablet 180 mg PO QDAY PRN (Reason: allergy symptoms) gabapentin 100 mg capsule 100 mg PO TID levothyroxine [Levo-T] 75 mcg tablet 37.5 mcg PO QDAY magnesium hydroxide [Milk of Magnesia] 400 mg/5 mL suspension 30 ml PO ONCE PRN (Reason: stomach upset) guaifenesin [Mucinex] 600 mg tablet extended release 12hr 600 mg PO DAILY Rx Instructions: may have additional tab 12 hrs later if needed nortriptyline 50 mg capsule 100 mg PO QHS ondansetron 4 mg tablet,disintegrating 4 mg PO Q6H PRN (Reason: nausea and vomiting) pantoprazole 40 mg tablet,delayed release (DR/EC) 40 mg PO Q12H pravastatin 40 mg tablet 40 mg PO QDAY psyllium husk 2.6 gram/4.1 gram powder 1 tbsp PO ONCE Rx Instructions: mix into at least 8 oz of water or juice before administering sennosides [senna] 8.6 mg tablet 8.6 mg PO QDAY sumatriptan succinate 100 mg tablet See Rx Instructions PO .COMPLEX Rx Instructions: take 1 tab at onset of headache; if no relief, may repeat 1 tab after at least 2 hrs; max = 2 tabs/24 hrs PO albuterol sulfate [Ventolin HFA] 90 mcg/actuation HFA aerosol inhaler 2 puff inhalation Q6H PRN (Reason: shortness of breath or wheezing) verapamil 240 mg capsule,ext rel. pellets 24 hr 240 mg PO BID Asmanex HFA 200 mcg/actuation HFA aerosol inhaler 2 puff inhalation BID lidocaine HCl [Aspercreme (lidocaine HCl)] 4 % cream 1 applic topical .COMPLEX Rx Instructions: 1 applic topically to right hip on 12 hrs off 12 hrs; clonidine 0.2 mg/24 hr patch weekly 1 patch topical QWEEK gabapentin 100 mg capsule 200 mg PO QHS hydralazine 25 mg tablet 25 mg PO Q8H PRN (Reason: sbp>150) metoprolol succinate 25 mg tablet extended release 24 hr 25 mg PO DAILY natural ears 1 gtt EACH EAR QHS PRN (Reason: ear pain) Rx Instructions: right ear OXYGEN - Supplemental ([facility] INFORMATIONAL USE ONLY) Patient Comments: patient states that she wears 3 lpm at home DME is [facility] patient is currently staying at [facility] pirfenidone [Esbriet] 801 mg tablet 801 mg PO TID Rx Instructions: administer with food at the same time(s) each day alprazolam 1 mg tablet 1 mg PO TID 1 Days Qty: 3 0RF Discontinued pirfenidone 801 mg tablet 801 mg PO TID Referrals / Follow Up: Сергей Espinoza MD [Primary Care Provider, Internal Medicine] - Within 2 Weeks Disposition Disposition (needs filled in before D/C Order can be placed): Shelter Facility 12/01/24 1347 <Electronically signed by Weston Choudhary MD> Cosigner Signature (if applicable): CC: BOTTLING SUPERVISORBreanna Buckner; JEREMIAH Wright; Dr. Сергей Espinoza MD; Dr. Brayden Abdullahi MD; Dr. Mariela Lilly MD; Dr. Johan Adam MD; JADA Wood; Eric Salazar, DO [facility] Work Phone: 1(848) 104-143210-02-2025 Discharge summary Author Weston [facility] Note Date/Time December 01, 2024 1: 46pm [facility] Medical Records Department [address] [place] [address] Discharge Summary 12/01/24 1342 MR#: [id number] Acct: [id number] Name: MERNA WEBSTER Rep #:[id number] : 1940 84 From: Weston Choudhary MD PCP: Dr. Сергей Espinoza MD Status:A DM IN Location: [facility] [id number] Providers Date of Admission: 11/29/24 Date of Discharge: 12/01/24 Primary Care Physician: Dr. Сергей Espinoza MD Consultations 11/29/24 11:09 Consult: Gastroenterology Routine Consulting Provider: [facility] Reason for Consult: brbpr EMERGENT Consult: No MD Notified: Yes Date Notified: 11/29/24 Time Notified: 13:07 Method of Notification: Text Reason For Visit: CONCERN FOR GI BLEED POSITIVE ORTHOSTATS Diagnosis Discharge Diagnosis (1) Bright red blood per rectum: Status: Acute Code(s): K62.5 - Hemorrhage of anus and rectum Plan Patient is an 84-year-old lady resident at [facility] who presented to the emergency department with rectal bleeding 1. Hematochezia ? Patient hemoglobin on admission was 7.9. Was admitted to monitored bed consult placed to Dr. Salazar with GI patient underwent colonoscopy on 11/30/2024 findings and recommendations as below Findings - Preparation of the colon was fair. - Diverticulosis in the entire examined colon. - Two bleeding colonic angiodysplastic lesions. Treated with a monopolar probe. - Stool in the rectum, in the recto-sigmoid colon, in the sigmoid colon, in the descending colon, at the splenic flexure and in the cecum. - Four 15 mm polyps in the sigmoid colon, at the splenic flexure, at the hepaticflexure and in the cecum, removed with a hot snare. Resected and retrieved. - A tattoo was seen in the transverse colon and at the hepatic flexure. The tattoo site appeared normal. Recommendations : - Await pathology results. - Repeat colonoscopy because the bowel preparation was poor. 2. Anemia ? Secondary to acute blood loss anemia monitoring H&H and transfuse if patient becomes symptomatic or hemoglobin falls below 7 ? 12/01/2024Patient seen hemoglobin did drop to 7.9 patient subsequently started on iron plan is for patient to be assessed for discharge 3. Hypothyroidism ? Patient is on levothyroxine home dose continued 4. Allergic rhinitis ? Patient is on fexofenadine 5. Dyslipidemia ?Patient is on statin therapy, continued at home dose 6. Chronic hypoxic respiratory failure Secondary to pulmonary fibrosis patient is on home oxygen 3 L at rest 7. Pulmonary fibrosis ? Patient is on pirfenidone held on admission plan is to resume on discharge 8. GERD ? Patient on PPI 9. Anxiety disorder ? Patient is on alprazolam 10. Hypertension ? Blood pressure controlled, home medications continued with dose adjustment as needed 11. DVT prophylaxis ? SCDs only given patient presentation Time spent in the patient's overall evaluation,decision-making process, review of diagnostic data, adjustment of management, discussion with other providers, nursing nursing and ancillary staff involved in patient's care documentation, 35minutes Medications at Discharge Home Medications acetaminophen 500 mg tablet (Tylenol Extra Strength) 500 mg PO Q6H PRN fever or pain 11/03/24 albuterol sulfate 90 mcg/actuation aerosol inhaler (Ventolin HFA) 2 puff inhalation Q6H PRN shortness of breath or wheezing 11/03/24 famotidine 20 mg tablet 20 mg PO QDAY 11/03/24 fexofenadine 180 mg tablet 180 mg PO QDAY PRN allergy symptoms 11/03/24 gabapentin 100 mg capsule 100 mg PO TID 11/03/24 guaifenesin 600 mg tablet, extended release 12 hr (Mucinex) 600 mg PO DAILY 11/03/24 levothyroxine 75 mcg tablet (Levo-T) 37.5 mcg PO QDAY 11/03/24 magnesium hydroxide 400 mg/5 mL oral suspension (Milk of Magnesia) 30 ml PO ONCEPRN stomach upset 11/03/24 nortriptyline 50 mg capsule 100 mg PO QHS 11/03/24 ondansetron 4 mg disintegrating tablet 4 mg PO Q6H PRN nausea and vomiting 11/03/24 pantoprazole 40 mg tablet,delayed release 40 mg PO Q12H 11/03/24 pravastatin 40 mg tablet 40 mg PO QDAY 11/03/24 psyllium husk 2.6 gram/4.1 gram oral powder 1 tbsp PO ONCE 11/03/24 sennosides 8.6 mg tablet (senna) 8.6 mg PO QDAY 11/03/24 sumatriptan succinate 100 mg tablet See Rx Instructions PO .COMPLEX 11/03/24 verapamil 240 mg 24 hr capsule,extended release 240 mg PO BID 11/03/24 clonidine 0.2 mg/24 hr weekly transdermal patch 1 patch topical QWEEK 11/27/24 gabapentin 100 mg capsule 200 mg PO QHS 11/27/24 hydralazine 25 mg tablet 25 mg PO Q8H PRN sbp>150 11/27/24 lidocaine HCl 4 % topical cream (Aspercreme (lidocaine HCl)) 1 applic topical .COMPLEX pain 11/27/24 metoprolol succinate 25 mg tablet,extended release 24 hr 25 mg PO DAILY 11/27/24 mometasone 200 mcg/actuation HFA aerosol inhaler (Asmanex HFA) 2 puff inhalationBID 11/27/24 natural ears 1 gtt EACH EAR QHS PRN ear pain 11/27/24 OXYGEN - Supplemental ([facility] INFORMATIONAL USE ONLY) 11/28/24 pirfenidone 801 mg tablet (Esbriet) 801 mg PO TID pulmonary fibrosis 11/30/24 alprazolam 1 mg tablet 1 mg PO TID anxiety 1 day #3 tabs 12/01/24 polysaccharide iron complex 150 mg iron capsule (Ferrex) 150 mg PO DAILY 60 days#60 caps 12/01/24 Physical Exam Narrative GENERAL: cooperative HEENT: Atraumatic; normocephalic EYES; Anicteric, Normal Conjunctiva NECK; supple, normal thyroid, RESPIRATORY: Diminished to auscultation CARDIOVASCULAR: Regular S1 S2, GI: soft, normoactive bowel sounds, : No Renal angle tenderness; EXTREMITIES: No edema, no clubbing, MUSCULOSKELETAL: no muscle wasting NEURO: Awake; no lateralizing signs. SKIN: No Rash PSYCH; Flat affect Weight / BMI Weight Weight: 59.8 kg Body Mass Index (BMI) 24.3 ABG / Lab / Microbiology Data 12/01/24 05:20 12/01/24 05:20 Laboratory: Laboratory Results - last 24 hr 12/01/24 05:20: WBC 7.9, RBC 2.54 L, Hgb 7.9 L, Hct 25.6 L, MCV 100.8 H, MCH 31.1, MCHC 30.9 L, RDW Std Deviation 45.9 H, RDW Coeff of Francisca 12.4, Plt Count 188, MPV 9.4, Immature Gran % (Auto) 0.300, Neut % (Auto) 58.7, Lymph % (Auto) 19.5, Monona % (Auto) 9.4, Eos % (Auto) 11.5 H, Baso % (Auto) 0.6, Absolute Neuts (auto) 4.6, Absolute Lymphs (auto) 1.54, Nucleated RBC % 0, Sodium 137, Potassium 3.8, Chloride 99, Carbon Dioxide 32.4 H, Anion Gap 5, BUN 7, Creatinine 0.58 L, Estim Creat Clear Calc 44.24 L, Est GFR (MDRD) Non-Af 90, BUN/Creatinine Ratio 11.3, Glucose 99, Calcium 8.6, Phosphorus 3.3, Magnesium 1.9 D/C Instructions DC O2, CPAP, BIPAP Needs Home O2 Discharge instructions: Yes Type of respiratory needs?: Oxygen Oxygen frequency: Continuous Continuous oxygen liters per minute: 2 DC home with Oxygen: Yes Home O2 MD Review: I have reviewed the oxygen testing, and the patient qualifies for home oxygen equipment and portability. The patient is mobile in the home and the community. Meaningful Use Info Meaningful Use Meaningful Use Diagnoses (Choose all that apply): None applicable Discharge Plan Admission Admit Date/Time: 11/29/24 17:11 Attending Provider: Weston Choudhary Primary Care Provider: Сергей Espinoza Consulting Providers: Mariela Lilly; Johan Adam; Eric Salazar; Aundrea Buckner; Brinda Wright; Elisa Paulson; Brayden Abdullahi Discharge Orders/Prescriptions Prescriptions: New polysaccharide iron complex [Ferrex 150] 150 mg iron Capsule 150 mg PO DAILY 60 Days Qty: 60 0RF Continued acetaminophen [Tylenol Extra Strength] 500 mg tablet 500 mg PO Q6H PRN (Reason: fever or pain) famotidine 20 mg tablet 20 mg PO QDAY fexofenadine 180 mg tablet 180 mg PO QDAY PRN (Reason: allergy symptoms) gabapentin 100 mg capsule 100 mg PO TID levothyroxine [Levo-T] 75 mcg tablet 37.5 mcg PO QDAY magnesium hydroxide [Milk of Magnesia] 400 mg/5 mL suspension 30 ml PO ONCE PRN (Reason: stomach upset) guaifenesin [Mucinex] 600 mg tablet extended release 12hr 600 mg PO DAILY Rx Instructions: may have additional tab 12 hrs later if needed nortriptyline 50 mg capsule 100 mg PO QHS ondansetron 4 mg tablet,disintegrating 4 mg PO Q6H PRN (Reason: nausea and vomiting) pantoprazole 40 mg tablet,delayed release (DR/EC) 40 mg PO Q12H pravastatin 40 mg tablet 40 mg PO QDAY psyllium husk 2.6 gram/4.1 gram powder 1 tbsp PO ONCE Rx Instructions: mix into at least 8 oz of water or juice before administering sennosides [senna] 8.6 mg tablet 8.6 mg PO QDAY sumatriptan succinate 100 mg tablet See Rx Instructions PO .COMPLEX Rx Instructions: take 1 tab at onset of headache; if no relief, may repeat 1 tab after at least 2 hrs; max = 2 tabs/24 hrs PO albuterol sulfate [Ventolin HFA] 90 mcg/actuation HFA aerosol inhaler 2 puff inhalation Q6H PRN (Reason: shortness of breath or wheezing) verapamil 240 mg capsule,ext rel. pellets 24 hr 240 mg PO BID Asmanex HFA 200 mcg/actuation HFA aerosol inhaler 2 puff inhalation BID lidocaine HCl [Aspercreme (lidocaine HCl)] 4 % cream 1 applic topical .COMPLEX Rx Instructions: 1 applic topically to right hip on 12 hrs off 12 hrs; clonidine 0.2 mg/24 hr patch weekly 1 patch topical QWEEK gabapentin 100 mg capsule 200 mg PO QHS hydralazine 25 mg tablet 25 mg PO Q8H PRN (Reason: sbp>150) metoprolol succinate 25 mg tablet extended release 24 hr 25 mg PO DAILY natural ears 1 gtt EACH EAR QHS PRN (Reason: ear pain) Rx Instructions: right ear OXYGEN - Supplemental ([facility] INFORMATIONAL USE ONLY) Patient Comments: patient states that she wears 3 lpm at home DME is [facility] patient is currently staying at [facility] pirfenidone [Esbriet] 801 mg tablet 801 mg PO TID Rx Instructions: administer with food at the same time(s) each day alprazolam 1 mg tablet 1 mg PO TID 1 Days Qty: 3 0RF Discontinued pirfenidone 801 mg tablet 801 mg PO TID Referrals / Follow Up: Сергей Espinoza MD [Primary Care Provider, Internal Medicine] - Within 2 Weeks Disposition Disposition (needs filled in before D/C Order can be placed): Shelter Facility Charges/Coding Visit Charges Inpatient E&M: 98772 Disch Hosp >30min 12/01/24 1346 <Electronically signed by Weston Choudhary MD> Cosigner Signature (if applicable): CC: Dr. Weston Choudhary MD; Dr. Сергей Espinoza MD~ Signed [facility] Work Phone: 1(270) 352-645810-02-2025 Progress note Author Weston Choudhary [facility] Note Date/Time December 01, 2024 1: 42pm [facility] Medical Records Department [address] [place] [address] Progress Note - Hospitalist 12/01/24 1320 MR#: [id number] Acct: [id number] Name: JOYMERNA L Rep #:[id number] : 1940 84 From: Weston Choudhary MD PCP: Dr. Сергей Espinoza MD Status:A DM IN Location: [place] [address]- 1 Reason for Visit Chief Complaint: Bright red blood per rectum Subjective Subjective Patient seen hemoglobin did drop to 7.9 patient subsequently started on iron plan is for patient to be assessed for discharge Objective Data Objective Data Vital Signs: Vital Signs Temp Pulse Resp BP Pulse Ox O2 Del Method O2 Flow Rate 97.2 F L 63 16 96/52 L 98 Nasal Cannula 2 12/01/24 09:14 12/01/24 09:14 12/01/24 09:14 12/01/24 09:14 12/01/24 09:14 12/01/24 10:00 12/01/24 10:00 Oxygen Flow Rate (L/min) 2 Oxygen Delivery Method Nasal Cannula Weight: 59.8 kg Body Mass Index (BMI) 24.3 Intake & Output: Intake and Output for Last 24 Hours 11/29/24 11/30/24 12/01/24 23:59 23:59 23:59 Intake Total 200 / 200 43.75 / 43.75 280 / 280 Output Total 3 / 3 0 / 0 Balance 200 / 200 40.75 / 40.75 280 / 280 Lab / Micro Data 12/01/24 05:20 12/01/24 05:20 Labs: Laboratory Results - last 24 hr 12/01/24 05:20: WBC 7.9, RBC 2.54 L, Hgb 7.9 L, Hct 25.6 L, MCV 100.8 H, MCH 31.1, MCHC 30.9 L, RDW Std Deviation 45.9 H, RDW Coeff of Francisca 12.4, Plt Count 188, MPV 9.4, Immature Gran % (Auto) 0.300, Neut % (Auto) 58.7, Lymph % (Auto) 19.5, Monona % (Auto) 9.4, Eos % (Auto) 11.5 H, Baso % (Auto) 0.6, Absolute Neuts (auto) 4.6, Absolute Lymphs (auto) 1.54, Nucleated RBC % 0, Sodium 137, Potassium 3.8, Chloride 99, Carbon Dioxide 32.4 H, Anion Gap 5, BUN 7, Creatinine 0.58 L, Estim Creat Clear Calc 44.24 L, Est GFR (MDRD) Non-Af 90, BUN/Creatinine Ratio 11.3, Glucose 99, Calcium 8.6, Phosphorus 3.3, Magnesium 1.9 Physical Exam Narrative GENERAL: cooperative HEENT: Atraumatic; normocephalic EYES; Anicteric, Normal Conjunctiva NECK; supple, normal thyroid, RESPIRATORY: Diminished to auscultation CARDIOVASCULAR: Regular S1 S2, GI: soft, normoactive bowel sounds, : No Renal angle tenderness; EXTREMITIES: No edema, no clubbing, MUSCULOSKELETAL: no muscle wasting NEURO: Awake; no lateralizing signs. SKIN: No Rash PSYCH; Flat affect Assessment & Plan Assessment/Plan (1) Bright red blood per rectum: PLAN: Plan Patient is an 84-year-old lady resident at [facility] who presented to the emergency department with rectal bleeding 1. Hematochezia ? Patient hemoglobin on admission was 7.9. Was admitted to monitored bed consult placed to Dr. Salazar with GI patient underwent colonoscopy on 11/30/2024 findings and recommendations as below Findings - Preparation of the colon was fair. - Diverticulosis in the entire examined colon. - Two bleeding colonic angiodysplastic lesions. Treated with a monopolar probe. - Stool in the rectum, in the recto-sigmoid colon, in the sigmoid colon, in the descending colon, at the splenic flexure and in the cecum. - Four 15 mm polyps in the sigmoid colon, at the splenic flexure, at the hepaticflexure and in the cecum, removed with a hot snare. Resected and retrieved. - A tattoo was seen in the transverse colon and at the hepatic flexure. The tattoo site appeared normal. Recommendations : - Await pathology results. - Repeat colonoscopy because the bowel preparation was poor. 2. Anemia ? Secondary to acute blood loss anemia monitoring H&H and transfuse if patient becomes symptomatic or hemoglobin falls below 7 ? 12/01/2024Patient seen hemoglobin did drop to 7.9 patient subsequently started on iron plan is for patient to be assessed for discharge 3. Hypothyroidism ? Patient is on levothyroxine home dose continued 4. Allergic rhinitis ? Patient is on fexofenadine 5. Dyslipidemia ?Patient is on statin therapy, continued at home dose 6. Chronic hypoxic respiratory failure Secondary to pulmonary fibrosis patient is on home oxygen 3 L at rest 7. Pulmonary fibrosis ? Patient is on pirfenidone held on admission plan is to resume on discharge 8. GERD ? Patient on PPI 9. Anxiety disorder ? Patient is on alprazolam 10. Hypertension ? Blood pressure controlled, home medications continued with dose adjustment as needed 11. DVT prophylaxis ? SCDs only given patient presentation Time spent in the patient's overall evaluation,decision-making process, review of diagnostic data, adjustment of management, discussion with other providers, nursing nursing and ancillary staff involved in patient's care documentation, 35minutes Charges/Coding Visit Charges Inpatient E&M: 22322 Subs Hosp L2 12/01/24 1342 <Electronically signed by Weston Choudhary MD> Cosigner Signature (if applicable): CC: ~ Signed [facility] Work Phone: 1(437) 682-182610-02-2025 Hospital Discharge instructionsAdditional Instructions [facility]: [facility]: 1(350) 976-735010-02-2025 Discharge summary [facility] Medical Records Department [address] [place] [address] Transfer to [facility] MR#: [id number] Acct: [id number] Name: MERNA WEBSTER Rep #:[id number] : 1940 84 From: Weston Choudhary MD PCP: Dr. Сергей Espinoza MD Status:A DM IN Certification of patient admission REQUIRED AT TIME OF ADMISSION. I CERTIFY THAT POST-[facility] SERVICES ARE REQUIRED TO BE GIVEN ON AN IN-PATIENT BASIS BECAUSE OF THE ABOVE NAMED PATIENT'S NEED FOR [facility] CARE ON A CONTINUING BASIS FOR THE CONDITION(S) FOR WHICH HE/SHE WAS RECEIVING IN-PATIENT HOSPITAL SERVICES PRIOR TO HIS/HER TRANSFER TO THE [facility]. 12/01/24 1347 Diet Diet Order/Speech Therapy: INPATIENT Hospital Diet / Speech Therapy Order(s) 11/30/24 16:10 Diet: Regular - General Routine Orders/Code Status Code Status: Full Code DC O2, CPAP, BIPAP needs Home O2 Discharge instructions: Yes Type of respiratory needs?: Oxygen Oxygen frequency: ContinuousContinuous oxygen liters per minute: 2 Therapies Physical Therapy: Eval and Treat Occupational Therapy: Eval and Treat Problem/Diagnosis (1) Bright red blood per rectum: Status: Acute Code(s): K62.5 - Hemorrhage of anus and rectum Plan Patient is an 84-year-old lady resident at [facility] who presented to the emergency department with rectal bleeding 1. Hematochezia ? Patient hemoglobin on admission was 7.9. Was admitted to monitored bed consult placed to Dr. Salazar with GI patient underwent colonoscopy on 11/30/2024 findings and recommendations as below Findings - Preparation of the colon was fair. - Diverticulosis in the entire examined colon. - Two bleeding colonic angiodysplastic lesions. Treated with a monopolar probe. - Stool in the rectum, in the recto-sigmoid colon, in the sigmoid colon, in the descending colon, at the splenic flexure and in the cecum. - Four 15 mm polyps in the sigmoid colon, at the splenic flexure, at the hepaticflexure and in the cecum, removed with a hot snare. Resected and retrieved. - A tattoo was seen in the transverse colon and at the hepatic flexure. The tattoo site appeared normal. Recommendations : - Await pathology results. - Repeat colonoscopy because the bowel preparation was poor. 2. Anemia ? Secondary to acute blood loss anemia monitoring H&H and transfuse if patient becomes symptomatic or hemoglobin falls below 7 ? 12/01/2024Patient seen hemoglobin did drop to 7.9 patient subsequently started on iron plan is forpatient to be assessed for discharge 3. Hypothyroidism ? Patient is on levothyroxine home dose continued 4. Allergic rhinitis ? Patient is on fexofenadine 5. Dyslipidemia ?Patient is on statin therapy, continued at home dose 6. Chronic hypoxic respiratory failure Secondary to pulmonary fibrosis patient is on home oxygen 3 L at rest 7. Pulmonary fibrosis ? Patient is on pirfenidone held on admission plan is to resume on discharge 8. GERD ? Patient on PPI 9. Anxiety disorder ? Patient is on alprazolam 10. Hypertension ? Blood pressure controlled, home medications continued with dose adjustment as needed 11. DVT prophylaxis ? SCDs only given patient presentation Time spent in the patient's overall evaluation,decision-making process, review of diagnostic data, adjustment of management, discussion with other providers, nursing nursing and ancillary staff involved in patient's care documentation, 35minutes Allergies/Procedures Done in Hospital Allergies amoxicillin Allergy (Mild, Verified 11/27/24 15:00) PT UNSURE OF REACTION aspirin Allergy (Mild, Verified 11/27/24 15:00) PALPITATIONS ibuprofen Allergy (Mild, Verified 11/27/24 15:00) Swelling montelukast Allergy (Mild, Verified 11/27/24 15:00) Rash rofecoxib Allergy (Mild, Verified 11/27/24 15:00) Itching Sulfa (Sulfonamide Antibiotics) Allergy (Mild, Verified 11/27/24 15:00) Rash doxycycline Adverse Reaction (Mild, Verified 11/27/24 15:00) GI UPSET lisinopril Adverse Reaction (Mild, Verified 11/27/24 15:00) GI UPSET sertraline Adverse Reaction (Mild, Verified 11/27/24 15:00) Diarrhea Type of Care/Length of Stay Estimated LOS: More Than 30 Days Type of Care Needed: Skilled Rehab Potential: Fair Prognosis: Fair Additional Orders/Day of Discharge Day of Discharge: 12/01/24 Discharge Plan Admission Admit Date/Time: 11/29/24 17:11 Attending Provider: Weston Choudhary Primary Care Provider: Сергей Espinoza Consulting Providers: Mariela Lilly; Johan Adam; Eric Salazar; Aundrea Buckner; Brinda Wright;Elisa Paulson; Brayden Abdullahi Discharge Orders/Prescriptions Prescriptions: New polysaccharide iron complex [Ferrex 150] 150 mg iron Capsule 150 mg PO DAILY 60 Days Qty: 60 0RF Continued acetaminophen [Tylenol Extra Strength] 500 mg tablet 500 mg PO Q6H PRN (Reason: fever or pain) famotidine 20 mg tablet 20 mg PO QDAY fexofenadine 180 mg tablet 180 mg PO QDAY PRN (Reason: allergy symptoms) gabapentin 100 mg capsule 100 mg PO TID levothyroxine [Levo-T] 75 mcg tablet 37.5 mcg PO QDAY magnesium hydroxide [Milk of Magnesia] 400 mg/5 mL suspension 30 ml PO ONCE PRN (Reason: stomach upset) guaifenesin [Mucinex] 600 mg tablet extended release 12hr 600 mg PO DAILY Rx Instructions: may have additional tab 12 hrs later if needed nortriptyline 50 mg capsule 100 mg PO QHS ondansetron 4 mg tablet,disintegrating 4 mg PO Q6H PRN (Reason: nausea and vomiting) pantoprazole 40 mg tablet,delayed release (DR/EC) 40 mg PO Q12H pravastatin 40 mg tablet 40 mg PO QDAY psyllium husk 2.6 gram/4.1 gram powder 1 tbsp PO ONCE Rx Instructions: mix into at least 8 oz of water or juice before administering sennosides [senna] 8.6 mg tablet 8.6 mg PO QDAY sumatriptan succinate 100 mg tablet See Rx Instructions PO .COMPLEX Rx Instructions: take 1 tab at onset of headache; if no relief, may repeat 1 tab after at least 2 hrs; max = 2 tabs/24 hrs PO albuterol sulfate [Ventolin HFA] 90 mcg/actuation HFA aerosol inhaler 2 puff inhalation Q6H PRN (Reason: shortness of breath or wheezing) verapamil 240 mg capsule,ext rel. pellets 24 hr 240 mg PO BID Asmanex HFA 200 mcg/actuation HFA aerosol inhaler 2 puff inhalation BID lidocaine HCl [Aspercreme (lidocaine HCl)] 4 % cream 1 applic topical .COMPLEX Rx Instructions: 1 applic topically to right hip on 12 hrs off 12 hrs; clonidine 0.2 mg/24 hr patch weekly 1 patch topical QWEEK gabapentin 100 mg capsule 200 mg PO QHS hydralazine 25 mg tablet 25 mg PO Q8H PRN (Reason: sbp>150) metoprolol succinate 25 mg tablet extended release 24 hr 25 mg PO DAILY natural ears 1 gtt EACH EAR QHS PRN (Reason: ear pain) Rx Instructions: right ear OXYGEN - Supplemental ([facility] INFORMATIONAL USE ONLY) Patient Comments: patient states that she wears 3 lpm at home DME is [facility] patient is currently staying at [facility] pirfenidone [Esbriet] 801 mg tablet 801 mg PO TID Rx Instructions: administer with food at the same time(s) each day alprazolam 1 mg tablet 1 mg PO TID 1 Days Qty: 3 0RF Discontinued pirfenidone 801 mg tablet 801 mg PO TID Referrals / Follow Up: Сергей Espinoza MD [Primary Care Provider, Internal Medicine] - Within 2 Weeks Disposition Disposition (needs filled in before D/C Order can be placed): Shelter Facility 12/01/24 9771 Cosigner Signature (if applicable): CC: JEREMIAH Buckner; JEREMIAH Wright; Dr. Сергей Espinoza MD; Dr. Brayden Abdullahi MD; Dr. Mariela Lilly MD; Dr. Johan Adam MD; JADA Wood; Eric Salazar, DO ~ [facility]10-02-2025 Discharge summary [facility] Medical Records Department [address] [place] [address] Discharge Summary 12/01/24 1342 MR#: [id number] Acct: [id number] Name: MERNA WEBSTER Rep #:[id number] : 1940 84 From: Weston Choudhary MD PCP: Dr. Сергей Espinoza MD Status:A DM IN Location: [place] [address] Providers Date of Admission: 11/29/24 Date of Discharge: 12/01/24 Primary Care Physician: Dr. Сергйе Espinoza MD Consultations 11/29/24 11:09 Consult: Gastroenterology Routine Consulting Provider: [facility] Reason for Consult: brbpr EMERGENT Consult: No MD Notified: Yes Date Notified: 11/29/24 Time Notified: 13:07 Method of Notification: Text Reason For Visit: CONCERN FOR GI BLEED POSITIVE ORTHOSTATS Diagnosis Discharge Diagnosis (1) Bright red blood per rectum: Status: Acute Code(s): K62.5 - Hemorrhage of anus and rectum Plan Patient is an 84-year-old lady resident at [facility] who presented to the emergency department with rectal bleeding 1. Hematochezia ? Patient hemoglobin on admission was 7.9. Was admitted to monitored bed consult placed to Dr. Salazar with GI patient underwent colonoscopy on 11/30/2024 findings and recommendations as below Findings - Preparation of the colon was fair. - Diverticulosis in the entire examined colon. - Two bleeding colonic angiodysplastic lesions. Treated with a monopolar probe. - Stool in the rectum, in the recto-sigmoid colon, in the sigmoid colon, in the descending colon, at the splenic flexure and in the cecum. - Four 15 mm polyps in the sigmoid colon, at the splenic flexure, at the hepaticflexure and in the cecum, removed with a hot snare. Resected and retrieved. - A tattoo was seen in the transverse colon and at the hepatic flexure. The tattoo site appeared normal. Recommendations : - Await pathology results. - Repeat colonoscopy because the bowel preparation was poor. 2. Anemia ? Secondary to acute blood loss anemia monitoring H&H and transfuse if patient becomes symptomatic or hemoglobin falls below 7 ? 12/01/2024Patient seen hemoglobin did drop to 7.9 patient subsequently started on iron plan is forpatient to be assessed for discharge 3. Hypothyroidism ? Patient is on levothyroxine home dose continued 4. Allergic rhinitis ? Patient is on fexofenadine 5. Dyslipidemia ?Patient is on statin therapy, continued at home dose 6. Chronic hypoxic respiratory failure Secondary to pulmonary fibrosis patient is on home oxygen 3 L at rest 7. Pulmonary fibrosis ? Patient is on pirfenidone held on admission plan is to resume on discharge 8. GERD ? Patient on PPI 9. Anxiety disorder ? Patient is on alprazolam 10. Hypertension ? Blood pressure controlled, home medications continued with dose adjustment as needed 11. DVT prophylaxis ? SCDs only given patient presentation Time spent in the patient's overall evaluation,decision-making process, review of diagnostic data, adjustment of management, discussion with other providers, nursing nursing and ancillary staff involved in patient's care documentation, 35minutes Medications at Discharge Home Medications acetaminophen 500 mg tablet (Tylenol Extra Strength) 500 mg PO Q6H PRN fever or pain 11/03/24 albuterol sulfate 90 mcg/actuation aerosol inhaler (Ventolin HFA) 2 puff inhalation Q6H PRN shortness of breath or wheezing 11/03/24 famotidine 20 mg tablet 20 mg PO QDAY 11/03/24 fexofenadine 180 mg tablet 180 mg PO QDAY PRN allergy symptoms 11/03/24 gabapentin 100 mg capsule 100 mg PO TID 11/03/24 guaifenesin 600 mg tablet, extended release 12 hr (Mucinex) 600 mg PO DAILY 11/03/24 levothyroxine 75 mcg tablet (Levo-T) 37.5 mcg PO QDAY 11/03/24 magnesium hydroxide 400 mg/5 mL oral suspension (Milk of Magnesia) 30 ml PO ONCEPRN stomach upset 11/03/24 nortriptyline 50 mg capsule 100 mg PO QHS 11/03/24 ondansetron 4 mg disintegrating tablet 4 mg PO Q6H PRN nausea and vomiting 11/03/24 pantoprazole 40 mg tablet,delayed release 40 mg PO Q12H 11/03/24 pravastatin 40 mg tablet 40 mg PO QDAY 11/03/24 psyllium husk 2.6 gram/4.1 gram oral powder 1 tbsp PO ONCE 11/03/24 sennosides 8.6 mg tablet (senna) 8.6 mg PO QDAY 11/03/24 sumatriptan succinate 100 mg tablet See Rx Instructions PO .COMPLEX 11/03/24 verapamil 240 mg 24 hr capsule,extended release 240 mg PO BID 11/03/24 clonidine 0.2 mg/24 hr weekly transdermal patch 1 patch topical QWEEK 11/27/24 gabapentin 100 mg capsule 200 mg PO QHS 11/27/24 hydralazine 25 mg tablet 25 mg PO Q8H PRN sbp>150 11/27/24 lidocaine HCl 4 % topical cream (Aspercreme (lidocaine HCl)) 1 applic topical .COMPLEX pain 11/27/24 metoprolol succinate 25 mg tablet,extended release 24 hr 25 mg PO DAILY 11/27/24 mometasone 200 mcg/actuation HFA aerosol inhaler (Asmanex HFA) 2 puff inhalationBID 11/27/24 natural ears 1 gtt EACH EAR QHS PRN ear pain 11/27/24 OXYGEN - Supplemental ([facility] USE ONLY) 11/28/24 pirfenidone 801 mg tablet (Esbriet) 801 mg PO TID pulmonary fibrosis 11/30/24 alprazolam 1 mg tablet 1 mg PO TID anxiety 1 day #3 tabs 12/01/24 polysaccharide iron complex 150 mg iron capsule (Ferrex) 150 mg PO DAILY 60 days#60 caps 12/01/24 Physical Exam Narrative GENERAL: cooperative HEENT: Atraumatic; normocephalic EYES; Anicteric, Normal Conjunctiva NECK; supple, normal thyroid, RESPIRATORY: Diminished to auscultation CARDIOVASCULAR: Regular S1 S2, GI: soft, normoactive bowel sounds, : No Renal angle tenderness; EXTREMITIES: No edema, no clubbing, MUSCULOSKELETAL: no muscle wasting NEURO: Awake; no lateralizing signs. SKIN: No Rash PSYCH; Flat affect Weight / BMI Weight Weight: 59.8 kg Body Mass Index (BMI) 24.3 ABG / Lab / Microbiology Data 12/01/24 05:20 12/01/24 05:20 Laboratory: Laboratory Results - last 24 hr 12/01/24 05:20: WBC 7.9, RBC 2.54 L, Hgb 7.9 L, Hct 25.6 L, MCV 100.8 H, MCH 31.1, MCHC 30.9 L, RDWStd Deviation 45.9 H, RDW Coeff of Francisca 12.4, Plt Count 188, MPV 9.4, Immature Gran % (Auto) 0.300, Neut % (Auto) 58.7, Lymph % (Auto) 19.5, Monona % (Auto) 9.4, Eos % (Auto) 11.5 H, Baso % (Auto) 0.6, Absolute Neuts (auto) 4.6, Absolute Lymphs (auto) 1.54, Nucleated RBC % 0, Sodium 137, Potassium 3.8, Chloride 99, Carbon Dioxide 32.4 H, Anion Gap 5, BUN 7, Creatinine 0.58 L, Estim Creat Clear Calc 44.24 L, Est GFR (MDRD) Non-Af 90, BUN/Creatinine Ratio 11.3, Glucose 99, Calcium 8.6, Phosphorus 3.3, Magnesium 1.9 D/C Instructions DC O2, CPAP, BIPAP Needs Home O2 Discharge instructions: Yes Type of respiratory needs?: Oxygen Oxygen frequency: ContinuousContinuous oxygen liters per minute: 2 DC home with Oxygen: Yes Home O2 MD Review: I have reviewed the oxygen testing, and the patient qualifies for home oxygen equipment and portability. The patient is mobile in the home and the community. Meaningful Use Info Meaningful Use Meaningful Use Diagnoses (Choose all that apply): None applicable Discharge Plan Admission Admit Date/Time: 11/29/24 17:11 Attending Provider: Weston Choudhary Primary Care Provider: Сергей Espinoza Consulting Providers: Mariela Lilly; Johan Adam; Eric Salazar; Aundrea Buckner; Brinda Wright;Elisa Paulson; Brayden Abdullahi Discharge Orders/Prescriptions Prescriptions: New polysaccharide iron complex [Ferrex 150] 150 mg iron Capsule 150 mg PO DAILY 60 Days Qty: 60 0RF Continued acetaminophen [Tylenol Extra Strength] 500 mg tablet 500 mg PO Q6H PRN (Reason: fever or pain) famotidine 20 mg tablet 20 mg PO QDAY fexofenadine 180 mg tablet 180 mg PO QDAY PRN (Reason: allergy symptoms) gabapentin 100 mg capsule 100 mg PO TID levothyroxine [Levo-T] 75 mcg tablet 37.5 mcg PO QDAY magnesium hydroxide [Milk of Magnesia] 400 mg/5 mL suspension 30 ml PO ONCE PRN (Reason: stomach upset) guaifenesin [Mucinex] 600 mg tablet extended release 12hr 600 mg PO DAILY Rx Instructions: may have additional tab 12 hrs later if needed nortriptyline 50 mg capsule 100 mg PO QHS ondansetron 4 mg tablet,disintegrating 4 mg PO Q6H PRN (Reason: nausea and vomiting) pantoprazole 40 mg tablet,delayed release (DR/EC) 40 mg PO Q12H pravastatin 40 mg tablet 40 mg PO QDAY psyllium husk 2.6 gram/4.1 gram powder 1 tbsp PO ONCE Rx Instructions: mix into at least 8 oz of water or juice before administering sennosides [senna] 8.6 mg tablet 8.6 mg PO QDAY sumatriptan succinate 100 mg tablet See Rx Instructions PO .COMPLEX Rx Instructions: take 1 tab at onset of headache; if no relief, may repeat 1 tab after at least 2 hrs; max = 2 tabs/24 hrs PO albuterol sulfate [Ventolin HFA] 90 mcg/actuation HFA aerosol inhaler 2 puff inhalation Q6H PRN (Reason: shortness of breath or wheezing) verapamil 240 mg capsule,ext rel. pellets 24 hr 240 mg PO BID Asmanex HFA 200 mcg/actuation HFA aerosol inhaler 2 puff inhalation BID lidocaine HCl [Aspercreme (lidocaine HCl)] 4 % cream 1 applic topical .COMPLEX Rx Instructions: 1 applic topically to right hip on 12 hrs off 12 hrs; clonidine 0.2 mg/24 hr patch weekly 1 patch topical QWEEK gabapentin 100 mg capsule 200 mg PO QHS hydralazine 25 mg tablet 25 mg PO Q8H PRN (Reason: sbp>150) metoprolol succinate 25 mg tablet extended release 24 hr 25 mg PO DAILY natural ears 1 gtt EACH EAR QHS PRN (Reason: ear pain) Rx Instructions: right ear OXYGEN - Supplemental ([facility] INFORM[facility] USE ONLY) Patient Comments: patient states that she wears 3 lpm at home DME is [facility] patient is currently staying at [facility] pirfenidone [Esbriet] 801 mg tablet 801 mg PO TID Rx Instructions: administer with food at the same time(s) each day alprazolam 1 mg tablet 1 mg PO TID 1 Days Qty: 3 0RF Discontinued pirfenidone 801 mg tablet 801 mg PO TID Referrals / Follow Up: Сергей Espinoza MD [Primary Care Provider, Internal Medicine] - Within 2 Weeks Disposition Disposition (needs filled in before D/C Order can be placed): Shelter Facility Charges/Coding Visit Charges Inpatient E&M: 46789 Disch Hosp >30min 12/01/24 1346 Cosigner Signature (if applicable): CC: Dr. Weston Choudhary MD; Dr. Сергей Espinoza MD~ Signed [facility]10-02-2025 [facility] Medical Records Department [address] [place] [address] Discharge Summary 12/01/24 1342 MR#: [id number] Acct: [id number] Name: MERNA WEBSTER Rep #: [id number] : 1940 84 From: Weston Choudhary MD PCP: Dr. Сергей Espinoza MD Status:ADM IN Location: [facility] [id number] Providers Date of Admission: 11/29/24 Date of Discharge: 12/01/24 Primary Care Physician: Dr. Сергей Espinoza MD Consultations 11/29/24 11:09 Consult: Gastroenterology Routine Consulting Provider: [facility] Reason for Consult: brbpr EMERGENT Consult: No MD Notified: Yes Date Notified: 11/29/24 Time Notified: 13:07 Method of Notification: Text Reason For Visit: CONCERN FOR GI BLEED POSITIVE ORTHOSTATS Diagnosis Discharge Diagnosis (1) Bright red blood per rectum: Status: Acute Code(s): K62.5 - Hemorrhage of anus and rectum Plan Patient is an 84-year-old lady resident at [facility] who presented to the emergency department with rectal bleeding 1. Hematochezia ??? Patient hemoglobin on admission was 7.9. Was admitted to monitored bed consult placed to Dr. Salazar with GI patient underwent colonoscopy on 11/30/2024 findings and recommendations as below Findings - Preparation of the colon was fair. - Diverticulosis in the entire examined colon. - Two bleeding colonic angiodysplastic lesions. Treated with a monopolar probe. - Stool in the rectum, in the recto-sigmoid colon, in the sigmoid colon, in the descending colon, at the splenic flexure and in the cecum. - Four 15 mm polyps in the sigmoid colon, at the splenic flexure, at the hepatic flexure and in the cecum, removed with a hot snare. Resected and retrieved. - A tattoo was seen in the transverse colon and at the hepatic flexure. The tattoo site appeared normal. Recommendations : - Await pathology results. - Repeat colonoscopy because the bowel preparation was poor. 2. Anemia ??? Secondary to acute blood loss anemia monitoring H H and transfuse if patient becomes symptomatic or hemoglobin falls below 7 ??? 12/01/2024Patient seen hemoglobin did drop to 7.9 patient subsequently started on iron plan is for patient to be assessed for discharge 3. Hypothyroidism ??? Patient is on levothyroxine home dose continued 4. Allergic rhinitis ??? Patient is on fexofenadine 5. Dyslipidemia ???Patient is on statin therapy, continued at home dose 6. Chronic hypoxic respiratory failure Secondary to pulmonary fibrosis patient is on home oxygen 3 L at rest 7. Pulmonary fibrosis ??? Patient is on pirfenidone held on admission plan is to resume on discharge 8. GERD ??? Patient on PPI 9. Anxiety disorder ??? Patient is on alprazolam 10. Hypertension ??? Blood pressure controlled, home medications continued with dose adjustment as needed 11. DVT prophylaxis ??? SCDs only given patient presentation Time spent in the patient's overall evaluation,decision-making process, review of diagnostic data, adjustment of management, discussion with other providers, nursing nursing and ancillary staff involved in patient's care documentation, 35 minutes Medications at Discharge Home Medications acetaminophen 500 mg tablet (Tylenol Extra Strength) 500 mg PO Q6H PRN fever or pain 11/03/24 albuterol sulfate 90 mcg/actuation aerosol inhaler (Ventolin HFA) 2 puff inhalation Q6H PRN shortness of breath or wheezing 11/03/24 famotidine 20 mg tablet 20 mg PO QDAY 11/03/24 fexofenadine 180 mg tablet 180 mg PO QDAY PRN allergy symptoms 11/03/24 gabapentin 100 mg capsule 100 mg PO TID 11/03/24 guaifenesin 600 mg tablet, extended release 12 hr (Mucinex) 600 mg PO DAILY 11/03/24 levothyroxine 75 mcg tablet (Levo-T) 37.5 mcg PO QDAY 11/03/24 magnesium hydroxide 400 mg/5 mL oral suspension (Milk of Magnesia) 30 ml PO ONCE PRN stomach upset 11/03/24 nortriptyline 50 mg capsule 100 mg PO QHS 11/03/24 ondansetron 4 mg disintegrating tablet 4 mg PO Q6H PRN nausea and vomiting 11/03/24 pantoprazole 40 mg tablet,delayed release 40 mg PO Q12H 11/03/24 pravastatin 40 mg tablet 40 mg PO QDAY 11/03/24 psyllium husk 2.6 gram/4.1 gram oral powder 1 tbsp PO ONCE 11/03/24 sennosides 8.6 mg tablet (senna) 8.6 mg PO QDAY 11/03/24 sumatriptan succinate 100 mg tablet See Rx Instructions PO .COMPLEX 11/03/24 verapamil 240 mg 24 hr capsule,extended release 240 mg PO BID 11/03/24 clonidine 0.2 mg/24 hr weekly transdermal patch 1 patch topical QWEEK 11/27/24 gabapentin 100 mg capsule 200 mg PO QHS 11/27/24 hydralazine 25 mg tablet 25 mg PO Q8H PRN sbp>150 11/27/24 lidocaine HCl 4 % topical cream (Aspercreme (lidocaine HCl)) 1 applic topical .COMPLEX pain 11/27/24 metoprolol succinate 25 mg tablet,extended release 24 hr 25 mg PO DAILY 11/27/24 mometasone 200 mcg/actuation HFA aerosol inhaler (Asmanex HFA) 2 puff inhalation BID (more content not included)...[facility]10-02-2025 Progress note [facility] Medical Records Department [address] [place] [address] Progress Note - Hospitalist 12/01/24 1320 MR#: [id number] Acct: [id number] Name: MERNA WEBSTER Ana Rep #:[id number] : 1940 84 From: Weston Choudhary MD PCP: Dr. Сергей Espinoza MD Status:A DM IN Location: [place] [address] Reason for Visit Chief Complaint: Bright red blood per rectum Subjective Subjective Patient seen hemoglobin did drop to 7.9 patient subsequently started on iron plan is for patient ysabel assessed for discharge Objective Data Objective Data Vital Signs: Vital Signs Temp Pulse Resp BP Pulse Ox O2 Del Method O2 Flow Rate 97.2 F L 63 16 96/52 L 98 Nasal Cannula 2 12/01/24 09:14 12/01/24 09:14 12/01/24 09:14 12/01/24 09:14 12/01/24 09:14 12/01/24 10:00 12/01/24 10:00 Oxygen Flow Rate (L/min) 2 Oxygen Delivery Method Nasal Cannula Weight: 59.8 kg Body Mass Index (BMI) 24.3 Intake & Output: Intake and Output for Last 24 Hours 11/29/24 11/30/24 12/01/24 23:59 23:59 23:59 Intake Total 200 / 200 43.75 / 43.75 280 / 280 Output Total 3 / 3 0 / 0 Balance 200 / 200 40.75 / 40.75 280 / 280 Lab / Micro Data 12/01/24 05:20 12/01/24 05:20 Labs: Laboratory Results - last 24 hr 12/01/24 05:20: WBC 7.9, RBC 2.54 L, Hgb 7.9 L, Hct 25.6 L, MCV 100.8 H, MCH 31.1, MCHC 30.9 L, RDWStd Deviation 45.9 H, RDW Coeff of Francisca 12.4, Plt Count 188, MPV 9.4, Immature Gran % (Auto) 0.300, Neut % (Auto) 58.7, Lymph % (Auto) 19.5, Monona % (Auto) 9.4, Eos % (Auto) 11.5 H, Baso % (Auto) 0.6, Absolute Neuts (auto) 4.6, Absolute Lymphs (auto) 1.54, Nucleated RBC % 0, Sodium 137, Potassium 3.8, Chloride 99, Carbon Dioxide 32.4 H, Anion Gap 5, BUN 7, Creatinine 0.58 L, Estim Creat Clear Calc 44.24 L, Est GFR (MDRD) Non-Af 90, BUN/Creatinine Ratio 11.3, Glucose 99, Calcium 8.6, Phosphorus 3.3, Magnesium 1.9 Physical Exam Narrative GENERAL: cooperative HEENT: Atraumatic; normocephalic EYES; Anicteric, Normal Conjunctiva NECK; supple, normal thyroid, RESPIRATORY: Diminished to auscultation CARDIOVASCULAR: Regular S1 S2, GI: soft, normoactive bowel sounds, : No Renal angle tenderness; EXTREMITIES: No edema, no clubbing, MUSCULOSKELETAL: no muscle wasting NEURO: Awake; no lateralizing signs. SKIN: No Rash PSYCH; Flat affect Assessment & Plan Assessment/Plan (1) Bright red blood per rectum: PLAN: Plan Patient is an 84-year-old lady resident at [facility] who presented to the emergency department with rectal bleeding 1. Hematochezia ? Patient hemoglobin on admission was 7.9. Was admitted to monitored bed consult placed to Dr. Salazar with GI patient underwent colonoscopy on 11/30/2024 findings and recommendations as below Findings - Preparation of the colon was fair. - Diverticulosis in the entire examined colon. - Two bleeding colonic angiodysplastic lesions. Treated with a monopolar probe. - Stool in the rectum, in the recto-sigmoid colon, in the sigmoid colon, in the descending colon, at the splenic flexure and in the cecum. - Four 15 mm polyps in the sigmoid colon, at the splenic flexure, at the hepaticflexure and in the cecum, removed with a hot snare. Resected and retrieved. - A tattoo was seen in the transverse colon and at the hepatic flexure. The tattoo site appeared normal. Recommendations : - Await pathology results. - Repeat colonoscopy because the bowel preparation was poor. 2. Anemia ? Secondary to acute blood loss anemia monitoring H&H and transfuse if patient becomes symptomatic or hemoglobin falls below 7 ? 12/01/2024Patient seen hemoglobin did drop to 7.9 patient subsequently started on iron plan is forpatient to be assessed for discharge 3. Hypothyroidism ? Patient is on levothyroxine home dose continued 4. Allergic rhinitis ? Patient is on fexofenadine 5. Dyslipidemia ?Patient is on statin therapy, continued at home dose 6. Chronic hypoxic respiratory failure Secondary to pulmonary fibrosis patient is on home oxygen 3 L at rest 7. Pulmonary fibrosis ? Patient is on pirfenidone held on admission plan is to resume on discharge 8. GERD ? Patient on PPI 9. Anxiety disorder ? Patient is on alprazolam 10. Hypertension ? Blood pressure controlled, home medications continued with dose adjustment as needed 11. DVT prophylaxis ? SCDs only given patient presentation Time spent in the patient's overall evaluation,decision-making process, review of diagnostic data, adjustment of management, discussion with other providers, nursing nursing and ancillary staff involved in patient's care documentation, 35minutes Charges/Coding Visit Charges Inpatient E&M: 73636 Subs Hosp L2 12/01/24 1342 Cosigner Signature (if applicable): CC: ~ Signed [facility]10-01-2025 Progress note Author Weston Choudhary [facility] Note Date/Time November 30, 2024 10 :44am [facility] Medical Records Department [address] [place] [address] Progress Note - Hospitalist 11/30/24 1034 MR#: [id number] Acct: [id number] Name: MERNA WEBSTER Rep #:[id number] : 1940 84 From: Weston Choudhary MD PCP: Dr. Сергей Espinoza MD Status:A DM IN Location: [place] [address] Reason for Visit Chief Complaint: Bright red blood per rectum Subjective Subjective Patient is an 84-year-old lady resident at [facility] who presented to the emergency department with rectal bleeding Objective Data Objective Data Vital Signs: Vital Signs Temp Pulse Resp BP Pulse Ox O2 Del Method O2 Flow Rate 97.3 F L 81 16 123/84 H 97 Nasal Cannula 3 11/30/24 08:50 11/30/24 08:50 11/30/24 08:50 11/30/24 08:50 11/30/24 08:50 11/30/24 08:50 11/30/24 08:50 Oxygen Flow Rate (L/min) 3 Oxygen Delivery Method Nasal Cannula Weight: 59.8 kg Body Mass Index (BMI) 24.3 Intake & Output: Intake and Output for Last 24 Hours 11/28/24 11/29/24 11/30/24 23:59 23:59 23:59 Intake Total 836.67 / 836.67 200 / 200 Output Total 3 / 3 Balance 836.67 / 836.67 200 / 200 -3 / -3 Lab / Micro Data 11/30/24 03:55 11/30/24 03:55 Labs: Laboratory Results - last 24 hr 11/30/24 03:55: WBC 8.6, RBC 2.63 L, Hgb 8.1 L, Hct 26.0 L, MCV 98.9, MCH 30.8, MCHC 31.2 L, RDW Std Deviation 45.5 H, RDW Coeff of Francisca 12.5, Plt Count 191, MPV9.4, Immature Gran % (Auto) 0.200, Neut % (Auto) 67.9, Lymph % (Auto) 15.3 L, Monona % (Auto) 8.6, Eos % (Auto) 7.5 H, Baso % (Auto) 0.5, Absolute Neuts (auto) 5.8, Absolute Lymphs (auto) 1.31, Nucleated RBC % 0, PT 13.2, INR 1.0, APTT 26.3, Sodium 139, Potassium 4.0, Chloride 100, Carbon Dioxide 30.8, Anion Gap 8,BUN 11, Creatinine 0.48 L, Estim Creat Clear Calc 42.14 L, Est GFR (MDRD) Non-Af94, BUN/Creatinine Ratio 22.3 H, Glucose 90, Calcium 8.9, TSH 2.440 Physical Exam Narrative General: Alert, Oriented x3, Cooperative, No apparent distress HEENT: Atraumatic, PERRLA, EOMI, Normocephalic Oral: Moist Mucosa Neck: Supple, No JVD Lungs: Diminished, Normal air movement, No rhonchi, No wheeze, No rales Cardiovascular: Regular rate, Regular Rhythm, Normal S1, Normal S2, No murmurs Abdomen: Soft, Non Tender, Non-Distended, No Hepato-splenomegaly Extremities: No edema, Capillary Refill Less than 3 Seconds Skin: No rashes, No breakdown Musculoskeletal: No Tenderness to Palpation of Joints or Extremities Neurological: No focal neurological deficits, moves all extremities Psych/Mental Status: Normal Affect, Appropriate Assessment & Plan Assessment/Plan (1) Bright red blood per rectum: PLAN: Plan Patient is an 84-year-old lady resident at [facility] who presented to the emergency department with rectal bleeding 1. Hematochezia ? Patient hemoglobin on admission was 7.9. Was admitted to monitored bed consult placed to Dr. Salazar with GI patient underwent colonoscopy on 11/30/2024 findings and recommendations as below Findings - Preparation of the colon was fair. - Diverticulosis in the entire examined colon. - Two bleeding colonic angiodysplastic lesions. Treated with a monopolar probe. - Stool in the rectum, in the recto-sigmoid colon, in the sigmoid colon, in the descending colon, at the splenic flexure and in the cecum. - Four 15 mm polyps in the sigmoid colon, at the splenic flexure, at the hepaticflexure and in the cecum, removed with a hot snare. Resected and retrieved. - A tattoo was seen in the transverse colon and at the hepatic flexure. The tattoo site appeared normal. Recommendations : - Await pathology results. - Repeat colonoscopy because the bowel preparation was poor. 2. Anemia ? Secondary to acute blood loss anemia monitoring H&H and transfuse if patient becomes symptomatic or hemoglobin falls below 7 3. Hypothyroidism ? Patient is on levothyroxine home dose continued 4. Allergic rhinitis ? Patient is on fexofenadine 5. Dyslipidemia ?Patient is on statin therapy, continued at home dose 6. Chronic hypoxic respiratory failure Secondary to pulmonary fibrosis patient is on home oxygen 3 L at rest 7. Pulmonary fibrosis ? Patient is on pirfenidone held on admission plan is to resume on discharge 8. GERD ? Patient on PPI 9. Anxiety disorder ? Patient is on alprazolam 10. Hypertension ? Blood pressure controlled, home medications continued with dose adjustment as needed 11. DVT prophylaxis ? SCDs only given patient presentation Time spent in the patient's overall evaluation,decision-making process, review of diagnostic data, adjustment of management, discussion with other providers, nursing nursing and ancillary staff involved in patient's care documentation, 50 Minutes Charges/Coding Visit Charges Inpatient E&M: 49521 Subs Hosp L3 11/30/24 1044 <Electronically signed by Weston Choudhary MD> Cosigner Signature (if applicable): CC: ~ Signed [facility] Work Phone: 1(129) 663-149310-01-2025 Consult note Author Hero Valladares [facility] Note Date/Time November 30, 2024 9: 25am [facility] Medical Records Department [address] [place] [address] Anesthesia Postop Eval II 11/30/24 0925 MR#: [id number] Acct: [id number] Name: MERNA WEBSTER Rep #:[id number] : 1940 84 From: Hero Dolan PCP: Dr. Сергей Espinoza MD Status:A DM IN Y Race: C [facility] Postop Eval I Sum Postop Eval Completion status Anesthesia document: Postop Eval 1 completed: Yes Anesthesia Postop Eval I Summary Anesthesia Postop Eval I Summary: Anesthesia Postop Eval I: Assessment Summary Airway patent Yes 11/30/24 08:48 [email or web address] Spontaneous unlabored Yes 11/30/24 08:48 [email or web address] respirations Mental status Awake,Calm 11/30/24 08:48 [email or web address] nausea No 11/30/24 08:48 [email or web address] Vomiting No 11/30/24 08:48 [email or web address] Anesthesia Postop Eval I: Fluid Summary Crystalloid volume administer 500 11/30/24 08:48 [email or web address] (ml) Colloids volume administered ( ml) Blood Product volume administered (ml) Total IV fluid infused 500 11/30/24 08:48 [email or web address] Anesthesia Postop Eval I: Summary Notes Anesthesia Complication No 11/30/24 08:48 [email or web address] Anesthesia Complication Comment: Post-operative progress note Anesthesia: Postop Eval II Evaluation Mental status: Awake and Calm Pain Level: 0 nausea: No Vomiting: No Complications Anesthesia Complication: No 11/30/24924 <Electronically signed by Hero Valladares MD> Date _ Hero Valladares MD [facility] Signature: Date CC: ~ Signed [facility] Work Phone: 1(605) 288-455610-01-2025 Consult note Author Dwain Kapoor [facility] Note Date/Time November 30, 2024 8: 48am [facility] Medical Records Department [address] [place] [address] Anesthesia Postop Eval I 11/30/2448 MR#: [id number] Acct: [id number] Name: MERNA WEBSTER Rep #:[id number] : 1940 84 From: Dwain Kapoor PCP: Dr. Сергей Espinoza MD Status:A DM IN Y Race: C Location: [place] [address] Anesthesia: Postop Eval I Current Vital Signs Temperature: 98.3 F Pulse Rate: 83 Blood Pressure: 120/56 Respiratory Rate: 16 Pulse Ox: 99 Oxygen Delivery Method: Room Air Assessment Airway patent: Yes Spontaneous unlabored respirations: Yes Mental status: Awake and Calm nausea: No Vomiting: No Anesthesia Complication: No Fluid Hydration Crystalloid volume administer (ml): 500 Total IV fluid infused: 500 Progress Note Anesthesia document: Postop Eval 1 completed: Yes 11/30/24 0848 <Electronically signed by Dwain Kapoor > Date _ Dwain Kapoor Cosigner Signature: Date CC: ~ Signed [facility] Work Phone: 1(887) 494-373710-01-2025 Progress note [facility] Medical Records Department [address] [place] [address] Progress Note - Hospitalist 11/30/24 1034 MR#: [id number] Acct: [id number] Name: MERNA WEBSTER Rep #:[id number] : 1940 84 From: Weston Choudhary MD PCP: Dr. Сергей Espinoza MD Status:A DM IN Location: [place] [address] Reason for Visit Chief Complaint: Bright red blood per rectum Subjective Subjective Patient is an 84-year-old lady resident at [facility] who presented to the emergency department with rectal bleeding Objective Data Objective Data Vital Signs: Vital Signs Temp Pulse Resp BP Pulse Ox O2 Del Method O2 Flow Rate 97.3 F L 81 16 123/84 H 97 Nasal Cannula 3 11/30/24 08:50 11/30/24 08:50 11/30/24 08:50 11/30/24 08:50 11/30/24 08:50 11/30/24 08:50 11/30/24 08:50 Oxygen Flow Rate (L/min) 3 Oxygen Delivery Method Nasal Cannula Weight: 59.8 kg Body Mass Index (BMI) 24.3 Intake & Output: Intake and Output for Last 24 Hours 11/28/24 11/29/24 11/30/24 23:59 23:59 23:59 Intake Total 836.67 / 836.67 200 / 200 Output Total Balance 836.67 / 836.67 200 / 200 -3 / -3 Lab / Micro Data 11/30/24 03:55 11/30/24 03:55 Labs: Laboratory Results - last 24 hr 11/30/24 03:55: WBC 8.6, RBC 2.63 L, Hgb 8.1 L, Hct 26.0 L, MCV 98.9, MCH 30.8, MCHC 31.2 L, RDW Std Deviation 45.5 H, RDW Coeff of Francisca 12.5, Plt Count 191, MPV9.4, Immature Gran % (Auto) 0.200, Neut% (Auto) 67.9, Lymph % (Auto) 15.3 L, Monona % (Auto) 8.6, Eos % (Auto) 7.5 H, Baso % (Auto) 0.5, Absolute Neuts (auto) 5.8, Absolute Lymphs (auto) 1.31, Nucleated RBC % 0, PT 13.2, INR 1.0, APTT 26.3,Sodium 139, Potassium 4.0, Chloride 100, Carbon Dioxide 30.8, Anion Gap 8,BUN 11, Creatinine 0.48 L, Estim Creat Clear Calc 42.14 L, Est GFR (MDRD) Non- Af94, BUN/Creatinine Ratio 22.3 H, Glucose 90, Calcium 8.9, TSH 2.440 Physical Exam Narrative General: Alert, Oriented x3, Cooperative, No apparent distress HEENT: Atraumatic, PERRLA, EOMI, Normocephalic Oral: Moist Mucosa Neck: Supple, No JVD Lungs: Diminished, Normal air movement, No rhonchi, No wheeze, No rales Cardiovascular: Regular rate, Regular Rhythm, Normal S1, Normal S2, No murmurs Abdomen: Soft, Non Tender, Non-Distended, No Hepato-splenomegaly Extremities: No edema, Capillary Refill Less than 3 Seconds Skin: No rashes, No breakdown Musculoskeletal: No Tenderness to Palpation of Joints or Extremities Neurological: No focal neurological deficits, moves all extremities Psych/Mental Status: Normal Affect, Appropriate Assessment & Plan Assessment/Plan (1) Bright red blood per rectum: PLAN: Plan Patient is an 84-year-old lady resident at [facility] who presented to the emergency department with rectal bleeding 1. Hematochezia ? Patient hemoglobin on admission was 7.9. Was admitted to monitored bed consult placed to Dr. Salazar with GI patient underwent colonoscopy on 11/30/2024 findings and recommendations as below Findings - Preparation of the colon was fair. - Diverticulosis in the entire examined colon. - Two bleeding colonic angiodysplastic lesions. Treated with a monopolar probe. - Stool in the rectum, in the recto-sigmoid colon, in the sigmoid colon, in the descending colon, at the splenic flexure and in the cecum. - Four 15 mm polyps in the sigmoid colon, at the splenic flexure, at the hepaticflexure and in the cecum, removed with a hot snare. Resected and retrieved. - A tattoo was seen in the transverse colon and at the hepatic flexure. The tattoo site appeared normal. Recommendations : - Await pathology results. - Repeat colonoscopy because the bowel preparation was poor. 2. Anemia ? Secondary to acute blood loss anemia monitoring H&H and transfuse if patient becomes symptomatic or hemoglobin falls below 7 3. Hypothyroidism ? Patient is on levothyroxine home dose continued 4. Allergic rhinitis ? Patient is on fexofenadine 5. Dyslipidemia ?Patient is on statin therapy, continued at home dose 6. Chronic hypoxic respiratory failure Secondary to pulmonary fibrosis patient is on home oxygen 3 L at rest 7. Pulmonary fibrosis ? Patient is on pirfenidone held on admission plan is to resume on discharge 8. GERD ? Patient on PPI 9. Anxiety disorder ? Patient is on alprazolam 10. Hypertension ? Blood pressure controlled, home medications continued with dose adjustment as needed 11. DVT prophylaxis ? SCDs only given patient presentation Time spent in the patient's overall evaluation,decision-making process, review of diagnostic data, adjustment of management, discussion with other providers, nursing nursing and ancillary staff involved in patient's care documentation, 50 Minutes Charges/Coding Visit Charges Inpatient E&M: 00463 Subs Hosp L3 11/30/24 1044 Cosigner Signature (if applicable): CC: ~ Signed [facility]10-01-2025 Consult note Author Hero Valladares [facility] Note Date/Time November 30, 2024 7: 59am [facility] Medical Records Department [address] [place] [address] Pre-Anesthesia Evaluation 11/30/24 0750 MR#: [id number] Acct: [id number] Name: MERNA WEBSTER Rep #:[id number] : 1940 84 From: Hero Dolan PCP: Dr. Сергей Espinoza MD Status:A DM IN Y Race: C Location: [place] [address] ASA Classification* ASA Classification ASA Classification: 4 Assessment & Plan Anesthesia* Anesthesia Assessment Anesthesia Assessment: Discussed sedation and/or anesthesia options, risks, benefits, and alternatives with patient/parents/legal guardian/POA. Questions invited. The patient/parents/legal guardian/POA seems to understand and agrees to proceedwith anesthesia plan. Reviewed the physical assessment, medical history, allergy history and patient home medications list prior to surgery/procedure/anesthetic and documented any changes. Performed airway and anesthesia risk assessments. Procedural Plan Add'l anesthesia plan details: Active GI bleed Anesthesia Type Anesthesia Type: MAC History Source History Obtained from:: Patient and Chart Anesthesia Focused Assessment* Temperature: 97.7 F Pulse Rate: 69 Blood Pressure: 132/65 Respiratory Rate: 16 Pulse Ox: 93 Oxygen Delivery Method: Nasal Cannula Oxygen Flow Rate (L/min): 3 Airway Assessment Mouth opens: >3 cm Mallampati Score: II Labs Anesthesia Preop lab: CBC WBC, (4.4-11.0) 8.6 K/mm3 Today, 03:55 RBC, (4.2-5.4) 2.63 M/mm3 L Today, 03:55 Hgb, (12.0-15.0) 8.1 g/dL L Today, 03:55 Hct, (37-47) 26.0 % L Today, 03:55 Plt Count, (150-450) 191 K/mm3 Today, 03:55 CHEMISTRY Potassium, (3.3-5.1) 4.0 mmol/L Today, 03:55 Sodium, (133-145) 139 mmol/L Today, 03:55 BUN, (4-19) 11 mg/dL Today, 03:55 Creatinine, (0.70-1.20) 0.48 mg/dL L Today, 03:55 Glucose, (70-99) 90 mg/dL Today, 03:55 TSH, (0.300-4.200) 2.440 uIU/mL Today, 03:55 COAG PT, (11.7-14.9) 13.2 SECONDS Today, 03:55 Pre-Assessment Diagnosis/Proposed Procedure Planned Operative Procedure(s): Colonoscopy Anesthesia History Anesthesia History - physical therapy aid: Anesthesia History - physical therapy aid Hx Hospitalization Any Problems With Anesthesia No 11/29/24 20:07 Cholinesterase deficiency No 11/29/24 20:07 You/Your Family Experience No 11/29/24 20:07 fever (hyperthermia) with Relationship Recent Exposure to Contagious No 11/29/24 20:07 Disease Does patient have nerve No 11/29/24 20:07 stimulator Patient instructed to have No 11/29/24 20:07 device shut off --Does patient have Pacemaker No 11/29/24 20:07 or ICD? When Was Last Pacemaker Check QUESTION #4 FULL TEXT: You/Your Family Experience fever (hyperthermia) with Anesthesia Last Oral Intake Last Oral intake: Last Oral Intake NPO since 00:00 11/29/24 20:07 Meds taken in AM with sips of Yes 11/29/24 20:07 water? Meds patient instructed to Tylenol 11/29/24 20:07 take am of surgery PONV PONV - physical therapy aid: PONV - physical therapy aid Female HX of Motion Sickness HX of N/V After Surgery Non-Smoker Duration of Surgery greater than 60 minutes Number of Risk Factors PONV Score Height & Weight Height & Weight: Anesthesia: Height & Weight Height 5 ft 2 in 11/29/24 20:07 Weight: 59.8 kg 11/29/24 20:07 Body Mass Index (BMI) 24.0 11/29/24 20:07 Respiratory Assessment Respiratory Assessment - physical therapy aid: Respiratory Tract Infection Hx - physical therapy aid Hx Respiratory Tract Infection No 11/29/24 20:07 STOP Sleep Apnea STOP Sleep Apnea - physical therapy aid: STOP Sleep Apnea - physical therapy aid Hx Hypertension Yes 11/27/24 17:57 Hx Sleep Apnea Yes 11/27/24 17:57 CPAP Yes: does not use 11/27/24 17:57 BIPAP No 11/27/24 17:57 Do you snore loudly (louder than talking or can be heard Do you often feel tired/ fatigued/ sleepy during daytime? Has anyone observed you stop breathing during sleep? STOP Results Positive 11/27/24 17:57 QUESTION #5 FULL TEXT : Do you snore loudly (louder than talking or can be heard through closed doors)? Tobacco Use History Tobacco Use History - physical therapy aid: Tobacco Use History - physical therapy aid Tobacco Use Smoking Status Never smoker 11/27/24 17:57 Hx Tobacco Use No 11/27/24 17:57 Years Smoking Packs Smoked per Day Smoking Cessation Date was within the last 15 years Hx Smoking Cessation Date Hx Smoking Cessation Counseling Hematologic Medial History Hematologic Hx - physical therapy aid: Hematologic Medical Hx - immigration consultant Hx of Blood Transfusion No 11/27/24 17:57 Hx of Transfusion in last 3 No 11/27/24 17:57 Months Date of Last Transfusion (if within last 3 months) Ever experience any problems No 11/27/24 17:57 with transfusion(s)? Specify any problems Hx of Preganancy in last 3 No 11/27/24 17:57 Months Nurse Filling Out Transfusion ZOË 11/27/24 17:57 & Questions: Date: 11/27/24 11/27/24 17:57 Time: 18:23 11/27/24 17:57 Patient unable to answer at this time (ie. confused, unrespo /Reproduction History /Reproductive History - physical therapy aid: /Reproductive Hx- physical therapy aid Hx Now No 11/29/24 20:07 Gestational Age (in weeks): EDC: Hx Hx Para Hx Section SAB No 11/29/24 20:07 Active Medications Active Medications: Current Medications Generic Name Dose Route Start Last Admin Trade Name Freq PRN Reason Stop Dose Admin Acetaminophen 650 mg 11/27/24 17:57 11/30/24 05:06 Acetaminophen 325 Mg Tablet PO 650 mg Q6H PRN PRN Administration Pain 1-10 Or Fever >100.7 Albuterol Sulfate 2.5 mg 11/27/24 17:57 11/28/24 16:29 Albuterol 2.5 Mg/3 Ml Vial.Neb. INHALATION 2.5 mg Q2H PRN PRN Administration SOB &/OR WHEEZING Alprazolam 1 mg 11/27/24 22:00 11/30/24 05:56 Alprazolam 0.5 Mg Tablet PO Not Given TID BARBRA Budesonide 0.5 mg 11/27/24 18:15 11/30/24 07:22 Budesonide Respules 0.5 Mg/2 Ml Ampul.Neb. INHALATION 0.5 mg Q12H.RT BARBRA Administration Clonidine HCl 0.2 mg 11/30/24 10:00 Clonidine Hcl 0.2 Mg Patch TD QWEEK BARBRA Famotidine 20 mg 11/28/24 10:00 11/29/24 09:23 Famotidine 20 Mg Tablet PO 20 mg DAILY BARBRA Administration Gabapentin 100 mg 11/28/24 08:00 11/29/24 17:20 Gabapentin 100 Mg Capsule PO 100 mg 0800,1200,1800 BARBRA Administration Gabapentin 200 mg 11/27/24 22:00 11/29/24 22:42 Gabapentin 100 Mg Capsule PO 200 mg QHS BARBRA Administration Guaifenesin 600 mg 11/28/24 10:00 11/29/24 09:19 Guaifenesin 600 Mg Tablet PO 600 mg DAILY BARBRA Administration Pantoprazole Sodium 40 mg/ 100 mls @ 300 mls/hr 11/27/24 22:00 11/29/24 21:40 Sodium Chloride IV Infused Q12 BARBRA Infusion Sodium Chloride 250 mls @ 15 mls/hr 11/27/24 17:58 IV .[id number] PRN Saline Flush Levothyroxine Sodium 37.5 mcg 11/28/24 06:00 11/30/24 05:56 Levothyroxine 75 Mcg Tablet PO Not Given DAILY@0600 BARBRA Lidocaine 1 patch 11/28/24 13:15 11/29/24 09:19 Lidocaine 5% Patch TOPICAL 1 patch DAILY BARBRA Administration Melatonin 10 mg 11/27/24 17:57 11/27/24 21:07 Melatonin 10 Mg Tablet PO 10 mg QHS PRN PRN Administration INSOMNIA Nortriptyline HCl 100 mg 11/27/24 22:00 11/29/24 22:43 Nortriptyline 25 Mg Capsule PO 100 mg QHS BARBRA Administration Ondansetron HCl 4 mg 11/27/24 17:57 11/28/24 20:08 Ondansetron 4 Mg/2 Ml Vial IV 4 mg Q8H PRN PRN Administration NAUSEA/VOMITING Pravastatin Sodium 40 mg 11/28/24 10:00 11/29/24 09:19 Pravastatin 40 Mg Tablet PO 40 mg DAILY BARBRA Administration Senna/Docusate Sodium 2 tablet 11/27/24 22:00 11/29/24 21:16 Senna/Docusate Sodium 1 Tablet PO 2 tablet BID BARBRA Administration Sodium Chloride 10 - 40 ml 11/27/24 17:58 11/29/24 21:16 0.9% Saline Lock 10 Ml Syringe IV 10 ml UD PRN Administration SALINE FLUSH Verapamil HCl 240 mg 11/27/24 22:00 11/29/24 22:42 Verapamil Sr 240 Mg Tablet PO 240 mg BID BARBRA Administration PFSH Medical History Migraine Psoriasis Depression Osteoporosis Primary insomnia Hyperlipidemia Hypothyroidism Obstructive sleep apnea (adult) (pediatric) Mild persistent asthma, uncomplicated Unspecified abnormalities of gait and mobility Difficulty in walking, not elsewhere classified Muscle wasting and atrophy, not elsewhere classified, left lower leg Muscle wasting and atrophy, not elsewhere classified, right lower leg Chronic respiratory failure with hypoxia Seasonal allergies Anemia High cholesterol GERD (gastroesophageal reflux disease) HTN (hypertension) Anxiety Pulmonary fibrosis Home Medications ?Medication ?Instructions ?Recorded ?Last Taken ?Type acetaminophen 500 mg tablet 500 mg PO Q6H PRN fever or pain 11/03/24 Unknown History (Tylenol Extra Strength) albuterol sulfate 90 mcg/actuation 2 puff inhalation Q 6H PRN 11/03/24 Unknown History aerosol inhaler (Ventolin HFA) shortness of breath or wheezing famotidine 20 mg tablet 20 mg PO QDAY 11/03/2411/27 History fexofenadine 180 mg tablet 180 mg PO QDAY PRN allergy symptoms 11/03/24 Unknown History gabapentin 100 mg capsule 100 mg PO TID 11/03/2411/27 06:00 History guaifenesin 600 mg tablet, 600 mg PO DAILY 11/03/24 History extended release 12 hr (Mucinex) levothyroxine 75 mcg tablet 37.5 mcg PO QDAY 11/03/24 11/27/24 History (Levo-T) magnesium hydroxide 400 mg/5 mL 30 ml PO ONCE PRN stom ach upset 11/03/24 Unknown History oral suspension (Milk of Magnesia) nortriptyline 50 mg capsule 100 mg PO QHS 11/03/24 History ondansetron 4 mg disintegrating 4 mg PO Q6H PRN nausea and vomiting 11/03/24 Unknown History tablet pantoprazole 40 mg tablet,delayed 40 mg PO Q12H 11/27/24 10:00 History release pravastatin 40 mg tablet 40 mg PO QDAY 11/03/2411/26 History psyllium husk 2.6 gram/4.1 gram 1 tbsp PO ONCE 5 11/27/24 History oral powder sennosides 8.6 mg tablet (senna) 8.6 mg PO QDAY 11/27/24 History sumatriptan succinate 100 mg tablet See Rx Instruction s PO .COMPLEX 11/03/24 11/26/24 History verapamil 240 mg 24 hr 240 mg PO BID 11/03/2411/27 History capsule,extended release alprazolam 1 mg tablet 1 mg PO TID anxiety 30 days #90 11/25/24 11/27/24 06:00 Rx tabs clonidine 0.2 mg/24 hr weekly 1 patch topical QWEEK Unknown History transdermal patch gabapentin 100 mg capsule 200 mg PO QHS 11/27/2411/26 History hydralazine 25 mg tablet 25 mg PO Q8H PRN sbp>150 Unknown History lidocaine HCl 4 % topical cream 1 applic topical .COMP JOSE pain 11/27/24 11/26/24 History (Aspercreme (lidocaine HCl)) metoprolol succinate 25 mg 25 mg PO DAILY 11/27/24 History tablet,extended release 24 hr mometasone 200 mcg/actuation HFA 2 puff inhalation BID 11/27/24 11/27/24 History aerosol inhaler (Asmanex HFA) natural ears 1 gtt EACH EAR QHS PRN ear p ain 11/27/24 Unknown History pirfenidone 801 mg tablet 801 mg PO TID 11/27/2411/27 06:00 History OXYGEN - Supplemental ([facility] 11/28/24 Unknown History INFORMATIONAL USE ONLY) Allergy/AdvReac Type Severity Reaction Status Date / Time amoxicillin Allergy Mild PT UNSURE Verified 11/27/24 15:00 OF REACTION aspirin Allergy Mild PALPITATION Verified 11/27/24 15:00 S ibuprofen Allergy Mild Swelling Verified 11/27/24 15:00 montelukast Allergy Mild Rash Verified 11/27/24 15:00 rofecoxib Allergy Mild Itching Verified 11/27/24 15:00 Sulfa (Sulfonamide Allergy Mild Rash Verified 11/27/24 15:00 Antibiotics) doxycycline AdvReac Mild GI UPSET Verified 11/27/24 15:00 lisinopril AdvReac Mild GI UPSET Verified 11/27/24 15:00 sertraline AdvReac Mild Diarrhea Verified 11/27/24 15:00 Social History Smoking Status: Never smoker Review of Systems (Anesthesia) ROS Narrative System reviewed and no additional complaints, except as documented. Physical Exam Const alert and oriented x3 HEENT Teeth and Gingiva: dentures and poor dentition Resp normal respiratory effort and normal air movement Auscultation: clear to auscultation bilaterally Cardio regular rate and regular rhythm Back/Spine normal ROM Neuro oriented x3 11/30/24 2328 <Electronically signed by Hero Valladares MD> Date _ Hero Valladares MD Cosigner Signature: Date CC: ~ Signed [facility] Work Phone: [phone]) 217-123010-01-2025 Consult note Author Eric Friend [facility] Note Date/Time November 30, 2024 7: 51am [facility] Medical Records Department [address] [place] [address] Consultation - GI 11/30/24 0746 MR#: [id number] Acct: [id number] Name: MERNA WEBSTER Rep #:[id number] : 1940 84 From: Eric Salazar DO PCP: Dr. Сергей sEpinoza MD Status:A DM IN Location: [facility] [id number] HPI Consult Data Date of Consult: 11/30/24 HPI Narrative Reason for Consultation: GI bleed HPI Narrative: MERNA WEBSTER, is a 84 F who presented to the ED with lower GI bleeding. She has a past medical history of pulmonary fibrosis on 3 L of O2 chronically, hypertension, hypothyroidism, GERD, anxiety who presented [facility] ED 11/27/2024 with rectal bleeding. She admits to recently constipated and passed hard stool and then this morning noticed she had bright red blood per rectum. She had to wipe multiple times butthe bleeding lessened however due to the blood skilled nursing wanted to send her to the ED however she wanted to wait but then she had another bowel movement with bright red blood mixed in. Reported feeling little lightheaded but no other acute complaints. In the ED temp 97.8, heart rate 72, blood pressure 135/67, respiratory 18 pulse ox 100% on 3 L nasal cannula. She did have positive orthostats with blood pressure 131/63 down to 109/57 on standing. CBC with white count 6.5 and hemoglobin 8.5 similar to CBC in August of this year BMP with a sodium of 132, bicarb 33, BUN of 12 and a creatinine of 0.82. Patient had no further episodes in the ED but she did have anoscopy which showed large clot with some amount of blood above the scope. I was asked to see her for lower GI bleeding [facility] Medical History Migraine Psoriasis Depression Osteoporosis Primary insomnia Hyperlipidemia Hypothyroidism Obstructive sleep apnea (adult) (pediatric) Mild persistent asthma, uncomplicated Unspecified abnormalities of gait and mobility Difficulty in walking, not elsewhere classified Muscle wasting and atrophy, not elsewhere classified, left lower leg Muscle wasting and atrophy, not elsewhere classified, right lower leg Chronic respiratory failure with hypoxia Seasonal allergies Anemia High cholesterol GERD (gastroesophageal reflux disease) HTN (hypertension) Anxiety Pulmonary fibrosis Home Medications ?Medication ?Instructions ?Recorded ?Last Taken ?Type acetaminophen 500 mg tablet 500 mg PO Q6H PRN fever or pain 11/03/24 Unknown History (Tylenol Extra Strength) albuterol sulfate 90 mcg/actuation 2 puff inhalation Q 6H PRN 11/03/24 Unknown History aerosol inhaler (Ventolin HFA) shortness of breath or wheezing famotidine 20 mg tablet 20 mg PO QDAY 11/03/2411/27 History fexofenadine 180 mg tablet 180 mg PO QDAY PRN allergy symptoms 11/03/24 Unknown History gabapentin 100 mg capsule 100 mg PO TID 11/03/2411/27 06:00 History guaifenesin 600 mg tablet, 600 mg PO DAILY 11/03/24 History extended release 12 hr (Mucinex) levothyroxine 75 mcg tablet 37.5 mcg PO QDAY 11/03/24 11/27/24 History (Levo-T) magnesium hydroxide 400 mg/5 mL 30 ml PO ONCE PRN stom ach upset 11/03/24 Unknown History oral suspension (Milk of Magnesia) nortriptyline 50 mg capsule 100 mg PO QHS 11/03/24 History ondansetron 4 mg disintegrating 4 mg PO Q6H PRN nausea and vomiting 11/03/24 Unknown History tablet pantoprazole 40 mg tablet,delayed 40 mg PO Q12H 11/27/24 10:00 History release pravastatin 40 mg tablet 40 mg PO QDAY 11/03/2411/26 History psyllium husk 2.6 gram/4.1 gram 1 tbsp PO ONCE 5 11/27/24 History oral powder sennosides 8.6 mg tablet (senna) 8.6 mg PO QDAY 11/27/24 History sumatriptan succinate 100 mg tablet See Rx Instruction s PO .COMPLEX 11/03/24 11/26/24 History verapamil 240 mg 24 hr 240 mg PO BID 11/03/2411/27 History capsule,extended release alprazolam 1 mg tablet 1 mg PO TID anxiety 30 days #90 11/25/24 11/27/24 06:00 Rx tabs clonidine 0.2 mg/24 hr weekly 1 patch topical QWEEK Unknown History transdermal patch gabapentin 100 mg capsule 200 mg PO QHS 11/27/2411/26 History hydralazine 25 mg tablet 25 mg PO Q8H PRN sbp>150 Unknown History lidocaine HCl 4 % topical cream 1 applic topical .COMP JOSE pain 11/27/24 11/26/24 History (Aspercreme (lidocaine HCl)) metoprolol succinate 25 mg 25 mg PO DAILY 11/27/24 History tablet,extended release 24 hr mometasone 200 mcg/actuation HFA 2 puff inhalation BID 11/27/24 11/27/24 History aerosol inhaler (Asmanex HFA) natural ears 1 gtt EACH EAR QHS PRN ear p ain 11/27/24 Unknown History pirfenidone 801 mg tablet 801 mg PO TID 11/27/2411/27 06:00 History OXYGEN - Supplemental ([facility] 11/28/24 Unknown History INFORMATIONAL USE ONLY) Allergy/AdvReac Type Severity Reaction Status Date / Time amoxicillin Allergy Mild PT UNSURE Verified 11/27/24 15:00 OF REACTION aspirin Allergy Mild PALPITATION Verified 11/27/24 15:00 S ibuprofen Allergy Mild Swelling Verified 11/27/24 15:00 montelukast Allergy Mild Rash Verified 11/27/24 15:00 rofecoxib Allergy Mild Itching Verified 11/27/24 15:00 Sulfa (Sulfonamide Allergy Mild Rash Verified 11/27/24 15:00 Antibiotics) doxycycline AdvReac Mild GI UPSET Verified 11/27/24 15:00 lisinopril AdvReac Mild GI UPSET Verified 11/27/24 15:00 sertraline AdvReac Mild Diarrhea Verified 11/27/24 15:00 Social History Smoking Status: Never smoker ROS Constitutional Constitutional: Denies fatigue, fever(s), poor appetite, weight gain or weight loss Gastrointestinal Gastrointestinal: Denies belching, bloating, change in bowel habits, change in stool character, chewing difficulty, coffee ground emesis, constipation, cramping, diarrhea, dyspepsia, dysphagia, early satiety, excessive flatus, fecalincontinence, heartburn, hematemesis, hematochezia, hemorrhoids, loose stools, melena, nausea, odynophagia, rectal bleeding, tenesmus, vomiting or weight changes Physical Exam Const alert, oriented x3, no apparent distress and healthy appearing General Appearance: cooperative GI normal to inspection, nondistended, normoactive bowel sounds, soft to palpation,non-tender and non-distended Percussion: normal to percussion Rectal Exam: deferred Lab / Micro Data 11/30/24 03:55 11/30/24 03:55 Labs: Laboratory Results - last 24 hr 11/30/24 03:55: WBC 8.6, RBC 2.63 L, Hgb 8.1 L, Hct 26.0 L, MCV 98.9, MCH 30.8, MCHC 31.2 L, RDW Std Deviation 45.5 H, RDW Coeff of Francisca 12.5, Plt Count 191, MPV9.4, Immature Gran % (Auto) 0.200, Neut % (Auto) 67.9, Lymph % (Auto) 15.3 L, Monona % (Auto) 8.6, Eos % (Auto) 7.5 H, Baso % (Auto) 0.5, Absolute Neuts (auto) 5.8, Absolute Lymphs (auto) 1.31, Nucleated RBC % 0, PT 13.2, INR 1.0, APTT 26.3, Sodium 139, Potassium 4.0, Chloride 100, Carbon Dioxide 30.8, Anion Gap 8,BUN 11, Creatinine 0.48 L, Estim Creat Clear Calc 42.14 L, Est GFR (MDRD) Non-Af94, BUN/Creatinine Ratio 22.3 H, Glucose 90, Calcium 8.9, TSH 2.440 Assessment & Plan Assessment/Plan (1) Bright red blood per rectum: (2) Anemia: PLAN: Assessment Lower GI Bleeding:?Acute, painless bleeding in an elderly patient. Pulmonary Fibrosis:?Chronic respiratory condition requiring oxygen. Anemia:?Chronic, likely exacerbated by acute blood loss. * Differential Diagnosis for Painless Lower GI Bleeding in the Elderly: * Diverticulosis:?Most common cause of painless lower GI bleeding, especially in the elderly. Bleeding is typically abrupt and can be substantial. * Angiodysplasia (Vascular Ectasias):?Degenerative vascular lesions that are also common in the elderly and a frequent cause of painless, recurrent bleeding. * Colonic Neoplasm:?Colon cancer or polyps can cause painless, intermittent bleeding, although it's more commonly occult. Given the family history, this remains a significant concern. * Hemorrhoids:?Common cause of mild bleeding, but less likely to cause the volume of bleeding described. * Other causes:?Less common etiologies include ischemic colitis (usually has pain), post-polypectomy bleeding, and ulcers. Plan Disposition:?Given the patient's age, comorbidities, and potentially significant blood loss (indicated by maroon stools and clots), she required admission to the hospital for further evaluation and management. Diagnostics: * Colonoscopy:?Urgent colonoscopy is the preferred initial diagnostic and therapeutic tool for a hemodynamically stable patient with lower GI bleeding. * CTA (Computed Tomography Angiography):?May be considered if bleeding is brisk and ongoing, to localize the bleeding source. * Upper Endoscopy:?If colonoscopy is negative, an upper endoscopy should be performed to rule out a brisk upper GI bleed presenting as lower GI bleeding. Inpatient versus outpatient Charges/Coding Visit Charges Inpatient E&M: 54305 Init Hosp L3 11/30/24 0751 <Electronically signed by Eric Friend DO> Cosigner Signature (if applicable): CC: Dr. Сергей Espinoza MD~ Signed [facility] Work Phone: [phone]) 686-661610-01-2025 Consult note [facility] Medical Records Department [address] [place] [address] Anesthesia Postop Eval II 11/30/2425 MR#: [id number] Acct: [id number] Name: MERNA WEBSTER Rep #:[id number] : 1940 84 From: Hero Dolan PCP: Dr. Сергей Espinoza MD Status:A DM IN Y Race: C Location: [place] [address] 6-1 Anesthesia Postop Eval I Sum Postop Eval Completion status Anesthesia document: Postop Eval 1 completed: Yes Anesthesia Postop Eval I Summary Anesthesia Postop Eval I Summary: Anesthesia Postop Eval I: Assessment Summary Airway patent Yes 11/30/24 08:48 [email or web address] Spontaneous unlabored Yes 11/30/24 08:48 [email or web address] respirations Mental status Awake,Calm 11/30/24 08:48 [email or web address] nausea No 11/30/24 08:48 [email or web address] Vomiting No 11/30/24 08:48 [email or web address] Anesthesia Postop Eval I: Fluid Summary Crystalloid volume administer 500 11/30/24 08:48 [email or web address] (ml) Colloids volume administered ( ml) Blood Product volume administered (ml) Total IV fluid infused 500 11/30/24 08:48 [email or web address] Anesthesia Postop Eval I: Summary Notes Anesthesia Complication No 11/30/24 08:48 [email or web address] Anesthesia Complication Comment: Post-operative progress note Anesthesia: Postop Eval II Evaluation Mental status: Awake and Calm Pain Level: 0 nausea: No Vomiting: No Complications Anesthesia Complication: No 11/30/24924 MD> Date _ Hero Valladares MD Cosigner Signature: Date CC: ~ Signed [facility]10-01-2025 Procedure note [facility] Medical Records Department [address] [place] [address] Colonoscopy Report MR#: [id number] Acct: [id number] Name: MERNA WEBSTER Rep #:[id number] : 1940 84 From: Eric Salazar DO PCP: Dr. Сергей Espinoza MD Status:A DM IN Patient Name: Merna Webster Procedure Date: 11/30/2024 7:51 AM Date of : 1940 Age: 84 Procedure: Colonoscopy Indications: Hematochezia, Iron deficiency anemia Providers: Eric Salazar DO Medicines: Monitored Anesthesia Care Patient Profile: This is an 84 year old female. Refer to note in patient chart for documentation of history and physical. Last Colonoscopy: several years ago. Complications: No immediate complications. Procedure: Pre-Anesthesia Assessment: - Prior to the procedure, a History and Physical was performed, and patient medications and allergies were reviewed. The patient is competent. The risks and benefits of the procedure and the sedation options and risks were discussed with the patient. All questions were answered and informed consent was obtained. Patient identification and proposed procedure were verified by the physician in the pre-procedure area. Mental Status Examination: alert and oriented. Airway Examination: normal oropharyngeal airway and neck mobility. Respiratory Examination: clear to auscultation. CV Examination: normal. Prophylactic Antibiotics: The patient does not require prophylactic antibiotics. Prior Anticoagulants: The patient has taken no anticoagulant or antiplatelet agents except for NSAID medication. ASA Grade Assessment: II - A patient with mild systemic disease. After reviewing the risks and benefits, the patient was deemed in satisfactory condition to undergo the procedure. The anesthesia plan was to use monitored anesthesia care (MAC). Immediately prior to administration of medications, the patient was re-assessed for adequacy to receive sedatives. The heart rate, respiratory rate, oxygen saturations, blood pressure, adequacy of pulmonary ventilation, and response to care were monitored throughout the procedure. The physical status of the patient was re-assessed after the procedure. After I obtained informed consent, the scope was passed under direct vision. Throughout the procedure, the patient's blood pressure, pulse, and oxygen saturations were monitored continuously. The Colonoscope was introduced through the anus and advanced to the cecum, identified by appendiceal orifice and ileocecal valve. The colonoscopy was performed without difficulty. The patient tolerated the procedure well. The quality of the bowel preparation was fair. The ileocecal valve, appendiceal orifice, and rectum were photographed. Scope In: 8:13:31 AM Scope Withdrawal Time 0 hours 5 minutes 12 seconds Scope Out: 8:34:21 AM Total Procedure Duration Time 0 hours 20 minutes 50 seconds Findings: The perianal and digital rectal examinations were normal. Scattered small and large-mouthed diverticula were found in the entire colon. Two medium-sized localized angiodysplastic lesions with bleeding were found in the rectum and in the cecum. Coagulation for hemostasis using monopolar probe was successful. Estimated blood loss was minimal. A large amount of stool was found in the rectum, in the recto-sigmoid colon, in the sigmoid colon, in the descending colon, at the splenic flexure and in the cecum. Four sessile polyps were found in the sigmoid colon, splenic flexure, hepatic flexure and cecum. The polyps were 15 mm in size. These polyps were removed with a hot snare. Resection and retrieval were complete. Verification of patient identification for the specimen was done. Estimated blood loss was minimal. A tattoo was seen in the transverse colon and at the hepatic flexure. The tattoo site appeared normal. Impression: - Preparation of the colon was fair. - Diverticulosis in the entire examined colon. - Two bleeding colonic angiodysplastic lesions. Treated with a monopolar probe. - Stool in the rectum, in the recto-sigmoid colon, in the sigmoid colon, in the descending colon, at the splenic flexure and in the cecum. - Four 15 mm polyps in the sigmoid colon, at the splenic flexure, at the hepatic flexure and in the cecum, removed with a hot snare. Resected and retrieved. - A tattoo was seen in the transverse colon and at the hepatic flexure. The tattoo site appeared normal. Recommendation: - [facility]. - Resume regular diet. - Continue present medications. - Await pathology results. - Repeat colonoscopy because the bowel preparation was poor. Procedure Code(s): --- Professional --- 01750, 59, Colonoscopy, flexible; with control of bleeding, any method 92021, Colonoscopy, flexible; with removal of tumor(s), polyp(s), or other lesion(s) by snare technique CPT copyright 2021 [employer]. All rights reserved. The codes documented in this report are preliminary and upon certified procedural coder review may be revised to meet current compliance requirements. Eric Salazar DO 11/30/2024 8:53:10 AM This report has been signed electronically. Number of Addenda: 0 Note Initiated On: 11/30/2024 7:51 AM 11/30/24 0853 Date _ Eric Salazar DO Cosigner Signature: Date (if indicated) CC: Dr. Сергей Espinoza MD; Eric Salazar DO ~ Date Dictated: 11/30/24 0751 Date Transcribed: French Instructor: RF Signed [facility]10-01-2025 Procedure note [facility] Medical Records Department [address] [place] [address] Provation Physician Letter MR#: [id number] Acct: [id number] Name: MERNA WEBSTER Rep #:[id number] : 1940 84 From: Eric Salazar DO PCP: Dr. Сергей Espinoza MD Status:A DM IN 11/30/2024 Сергей Espinoza Md Re : Colonoscopy procedure for Merna Webster Dear Lucina This procedure was performed on Saturday, November 30, 2024. My impressions and recommendations are as follows: Impressions : - Preparation of the colon was fair. - Diverticulosis in the entire examined colon. - Two bleeding colonic angiodysplastic lesions. Treated with a monopolar probe. - Stool in the rectum, in the recto-sigmoid colon, in the sigmoid colon, in the descending colon, at the splenic flexure and in the cecum. - Four 15 mm polyps in the sigmoid colon, at the splenic flexure, at the hepatic flexure and in the cecum, removed with a hot snare. Resected and retrieved. - A tattoo was seen in the transverse colon and at the hepatic flexure. The tattoo site appeared normal. Recommendations : - [facility]. - Resume regular diet. - Continue present medications. - Await pathology results. - Repeat colonoscopy because the bowel preparation was poor. My findings are described in the full procedure note, which is enclosed. If I can be of further assistance, please feel free to contact me at . Sincerely, Eric Salazar DO 11/30/2024 8:53:10 AM This report has been signed electronically. 11/30/24 0853 Date _ Eric Montgomery Signature: Date (if indicated) CC: BOTTLING SUPERVISOR-[place]; BOTTLING SUPERVISOR-C Brinda Wright; Dr. Weston Choudhary MD; Dr. Сергей Espinoza MD; Dr. Brayden Abdullahi MD; Dr. Mariela Lilly MD; Dr. Johan Adam MD; JADA Wood; DO Star Crain Date Dictated: 11/30/24750 Date Transcribed: French Instructor: RF Signed [facility]10-01-2025 Consult note [facility] Medical Records Department [address] [place] [address] Anesthesia Postop Eval I 11/30/24847 MR#: [id number] Acct: [id number] Name: MERNA WEBSTER Rep #:[id number] : 1940 84 From: Dwain Kapoor PCP: Dr. Сергей Espinoza MD Status:A DM IN Y Race: C Location: [place] [address] Anesthesia: Postop Eval I Current Vital Signs Temperature: 98.3 F Pulse Rate: 83 Blood Pressure: 120/56 Respiratory Rate: 16 Pulse Ox: 99 Oxygen Delivery Method: Room Air Assessment Airway patent: Yes Spontaneous unlabored respirations: Yes Mental status: Awake and Calm nausea: No Vomiting: No Anesthesia Complication: No Fluid Hydration Crystalloid volume administer (ml): 500 Total IV fluid infused: 500 Progress Note Anesthesia document: Postop Eval 1 completed: Yes 11/30/24847 > Date _ Dwain Marquez Signature: Date CC: ~ Signed [facility]10-01-2025 Consult note [facility] Medical Records Department [address] [place] [address] Pre-Anesthesia Evaluation 11/30/24749 MR#: [id number] Acct: [id number] Name: MERNA WEBSTER Rep #:[id number] : 1940 84 From: Hero Dolan PCP: Dr. Сергей Espinoza MD Status:A DM IN Y Race: C Location: [place] [address] 6-1 ASA Classification* ASA Classification ASA Classification: 4 Assessment & Plan Anesthesia* Anesthesia Assessment Anesthesia Assessment: Discussed sedation and/or anesthesia options, risks, benefits, and alternatives with patient/parents/legal guardian/POA. Questions invited. The patient/parents/legal guardian/POA seems to understand and agrees to proceedwith anesthesia plan. Reviewed the physical assessment, medical history, allergy history and patient home medications list prior to surgery/procedure/anesthetic and documented any changes. Performed airway and anesthesia risk assessments. Procedural Plan Add'l anesthesia plan details: Active GI bleed Anesthesia Type Anesthesia Type: MAC History Source History Obtained from:: Patient and Chart Anesthesia Focused Assessment* Temperature: 97.7 F Pulse Rate: 69 Blood Pressure: 132/65 Respiratory Rate: 16 Pulse Ox: 93 Oxygen Delivery Method: Nasal Cannula Oxygen Flow Rate (L/min): 3 Airway Assessment Mouth opens: >3 cm Mallampati Score: II Labs Anesthesia Preop lab: CBC WBC, (4.4-11.0) 8.6 K/mm3 Today, 03:55 RBC, (4.2-5.4) 2.63 M/mm3 L Today, 03:55 Hgb, (12.0-15.0) 8.1 g/dL L Today, 03:55 Hct, (37-47) 26.0 % L Today, 03:55 Plt Count, (150-450) 191 K/mm3 Today, 03:55 CHEMISTRY Potassium, (3.3-5.1) 4.0 mmol/L Today, 03:55 Sodium, (133-145) 139 mmol/L Today, 03:55 BUN, (4-19) 11 mg/dL Today, 03:55 Creatinine, (0.70-1.20) 0.48 mg/dL L Today, 03:55 Glucose, (70-99) 90 mg/dL Today, 03:55 TSH, (0.300-4.200) 2.440 uIU/mL Today, 03:55 COAG PT, (11.7-14.9) 13.2 SECONDS Today, 03:55 Pre-Assessment Diagnosis/Proposed Procedure Planned Operative Procedure(s): Colonoscopy Anesthesia History Anesthesia History - physical therapy aid: Anesthesia History - physical therapy aid Hx Hospitalization Any Problems With Anesthesia No 11/29/24 20:07 Cholinesterase deficiency No 11/29/24 20:07 You/Your Family Experience No 11/29/24 20:07 fever (hyperthermia) with Relationship Recent Exposure to Contagious No 11/29/24 20:07 Disease Does patient have nerve No 11/29/24 20:07 stimulator Patient instructed to have No 11/29/24 20:07 device shut off --Does patient have Pacemaker No 11/29/24 20:07 or ICD? When Was Last Pacemaker Check QUESTION #4 FULL TEXT: You/Your Family Experience fever (hyperthermia) with Anesthesia Last Oral Intake Last Oral intake: Last Oral Intake NPO since 00:00 11/29/24 20:07 Meds taken in AM with sips of Yes 11/29/24 20:07 water? Meds patient instructed to Tylenol 11/29/24 20:07 take am of surgery PONV PONV - physical therapy aid: PONV - physical therapy aid Female HX of Motion Sickness HX of N/V After Surgery Non-Smoker Duration of Surgery greater than 60 minutes Number of Risk Factors PONV Score Height & Weight Height & Weight: Anesthesia: Height & Weight Height 5 ft 2 in 11/29/24 20:07 Weight: 59.8 kg 11/29/24 20:07 Body Mass Index (BMI) 24.0 11/29/24 20:07 Respiratory Assessment Respiratory Assessment - physical therapy aid: Respiratory Tract Infection Hx - physical therapy aid Hx Respiratory Tract Infection No 11/29/24 20:07 STOP Sleep Apnea STOP Sleep Apnea - physical therapy aid: STOP Sleep Apnea - physical therapy aid Hx Hypertension Yes 11/27/24 17:57 Hx Sleep Apnea Yes 11/27/24 17:57 CPAP Yes: does not use 11/27/24 17:57 BIPAP No 11/27/24 17:57 Do you snore loudly (louder than talking or can be heard Do you often feel tired/ fatigued/ sleepy during daytime? Has anyone observed you stop breathing during sleep? STOP Results Positive 09/28/25 17:57 QUESTION #5 FULL TEXT : Do you snore loudly (louder than talking or can be heard through closeddoors)? Tobacco Use History Tobacco Use History - physical therapy aid: Tobacco Use History - physical therapy aid Tobacco Use Smoking Status Never smoker 11/27/24 17:57 Hx Tobacco Use No 11/27/24 17:57 Years Smoking Packs Smoked per Day Smoking Cessation Date was within the last 15 years Hx Smoking Cessation Date Hx Smoking Cessation Counseling Hematologic Medial History Hematologic Hx - physical therapy aid: Hematologic Medical Hx - immigration consultant Hx of Blood Transfusion No 11/27/24 17:57 Hx of Transfusion in last 3 No 11/27/24 17:57 Months Date of Last Transfusion (if within last 3 months) Ever experience any problems No 11/27/24 17:57 with transfusion(s)? Specify any problems Hx of Preganancy in last 3 No 11/27/24 17:57 Months Nurse Filling Out Transfusion ZOË 11/27/24 17:57 & Questions: Date: 11/27/24 11/27/24 17:57 Time: 18:23 11/27/24 17:57 Patient unable to answer at this time (ie. confused, unrespo /Reproduction History /Reproductive History - physical therapy aid: /Reproductive Hx- physical therapy aid Hx Now No 11/29/24 20:07 Gestational Age (in weeks): EDC: Hx Hx Para Hx Section SAB No 11/29/24 20:07 Active Medications Active Medications: Current Medications Generic Name Dose Route Start Last Admin Trade Name Freq PRN Reason Stop Dose Admin Acetaminophen 650 mg 11/27/24 17:57 11/30/24 05:06 Acetaminophen 325 Mg Tablet PO 650 mg Q6H PRN PRN Administration Pain 1-10 Or Fever >100.7 Albuterol Sulfate 2.5 mg 11/27/24 17:57 11/28/24 16:29 Albuterol 2.5 Mg/3 Ml Vial.Neb. INHALATION 2.5 mg Q2H PRN PRN Administration SOB &/OR WHEEZING Alprazolam 1 mg 11/27/24 22:00 11/30/24 05:56 Alprazolam 0.5 Mg Tablet PO Not Given TID BARBRA Budesonide 0.5 mg 11/27/24 18:15 11/30/24 07:22 Budesonide Respules 0.5 Mg/2 Ml Ampul.Neb. INHALATION 0.5 mg Q12H.RT BARBRA Administration Clonidine HCl 0.2 mg 11/30/24 10:00 Clonidine Hcl 0.2 Mg Patch TD QWEEK BARBRA Famotidine 20 mg 11/28/24 10:00 11/29/24 09:23 Famotidine 20 Mg Tablet PO 20 mg DAILY BARBRA Administration Gabapentin 100 mg 11/28/24 08:00 11/29/24 17:20 Gabapentin 100 Mg Capsule PO 100 mg 0800,1200,1800 BARBRA Administration Gabapentin 200 mg 11/27/24 22:00 11/29/24 22:42 Gabapentin 100 Mg Capsule PO 200 mg QHS BARBRA Administration Guaifenesin 600 mg 11/28/24 10:00 11/29/24 09:19 Guaifenesin 600 Mg Tablet PO 600 mg DAILY BARBRA Administration Pantoprazole Sodium 40 mg/ 100 mls @ 300 mls/hr 11/27/24 22:00 11/29/24 21:40 Sodium Chloride IV Infused Q12 BARBRA Infusion Sodium Chloride 250 mls @ 15 mls/hr 11/27/24 17:58 IV .[id number] PRN Saline Flush Levothyroxine Sodium 37.5 mcg 11/28/24 06:00 11/30/24 05:56 Levothyroxine 75 Mcg Tablet PO Not Given DAILY@0600 BARBRA Lidocaine 1 patch 11/28/24 13:15 11/29/24 09:19 Lidocaine 5% Patch TOPICAL 1 patch DAILY BARBRA Administration Melatonin 10 mg 11/27/24 17:57 11/27/24 21:07 Melatonin 10 Mg Tablet PO 10 mg QHS PRN PRN Administration INSOMNIA Nortriptyline HCl 100 mg 11/27/24 22:00 11/29/24 22:43 Nortriptyline 25 Mg Capsule PO 100 mg QHS BARBRA Administration Ondansetron HCl 4 mg 11/27/24 17:57 11/28/24 20:08 Ondansetron 4 Mg/2 Ml Vial IV 4 mg Q8H PRN PRN Administration NAUSEA/VOMITING Pravastatin Sodium 40 mg 11/28/24 10:00 11/29/24 09:19 Pravastatin 40 Mg Tablet PO 40 mg DAILY BARBRA Administration Senna/Docusate Sodium 2 tablet 11/27/24 22:00 11/29/24 21:16 Senna/Docusate Sodium 1 Tablet PO 2 tablet BID BARBRA Administration Sodium Chloride 10 - 40 ml 11/27/24 17:58 11/29/24 21:16 0.9% Saline Lock 10 Ml Syringe IV 10 ml UD PRN Administration SALINE FLUSH Verapamil HCl 240 mg 11/27/24 22:00 11/29/24 22:42 Verapamil Sr 240 Mg Tablet PO 240 mg BID BARBRA Administration PFSH Medical History Migraine Psoriasis Depression Osteoporosis Primary insomnia Hyperlipidemia Hypothyroidism Obstructive sleep apnea (adult) (pediatric) Mild persistent asthma, uncomplicated Unspecified abnormalities of gait and mobility Difficulty in walking, not elsewhere classified Muscle wasting and atrophy, not elsewhere classified, left lower leg Muscle wasting and atrophy, not elsewhere classified, right lower leg Chronic respiratory failure with hypoxia Seasonal allergies Anemia High cholesterol GERD (gastroesophageal reflux disease) HTN (hypertension) Anxiety Pulmonary fibrosis Home Medications ?Medication ?Instructions ?Recorded ?Last Taken ?Type acetaminophen 500 mg tablet 500 mg PO Q6H PRN fever or pain 11/03/24 Unknown History (Tylenol Extra Strength) albuterol sulfate 90 mcg/actuation 2 puff inhalation Q 6H PRN 11/03/24 Unknown History aerosol inhaler (Ventolin HFA) shortness of breath or wheezing famotidine 20 mg tablet 20 mg PO QDAY 11/03/2411/27 History fexofenadine 180 mg tablet 180 mg PO QDAY PRN allergy symptoms 11/03/24 Unknown History gabapentin 100 mg capsule 100 mg PO TID 11/03/2411/27 06:00 History guaifenesin 600 mg tablet, 600 mg PO DAILY 11/03/24 History extended release 12 hr (Mucinex) levothyroxine 75 mcg tablet 37.5 mcg PO QDAY 11/03/24 11/27/24 History (Levo-T) magnesium hydroxide 400 mg/5 mL 30 ml PO ONCE PRN stom ach upset 11/03/24 Unknown History oral suspension (Milk of Magnesia) nortriptyline 50 mg capsule 100 mg PO QHS 11/03/24 History ondansetron 4 mg disintegrating 4 mg PO Q6H PRN nausea and vomiting 11/03/24 Unknown History tablet pantoprazole 40 mg tablet,delayed 40 mg PO Q12H 11/27/24 10:00 History release pravastatin 40 mg tablet 40 mg PO QDAY 11/03/2411/26 History psyllium husk 2.6 gram/4.1 gram 1 tbsp PO ONCE 5 11/27/24 History oral powder sennosides 8.6 mg tablet (senna) 8.6 mg PO QDAY 11/27/24 History sumatriptan succinate 100 mg tablet See Rx Instruction s PO .COMPLEX 11/03/24 11/26/24 History verapamil 240 mg 24 hr 240 mg PO BID 11/03/2411/27 History capsule,extended release alprazolam 1 mg tablet 1 mg PO TID anxiety 30 days #90 11/25/24 11/27/24 06:00 Rx tabs clonidine 0.2 mg/24 hr weekly 1 patch topical QWEEK Unknown History transdermal patch gabapentin 100 mg capsule 200 mg PO QHS 11/27/2411/26 History hydralazine 25 mg tablet 25 mg PO Q8H PRN sbp>150 Unknown History lidocaine HCl 4 % topical cream 1 applic topical .COMP JOSE pain 11/27/24 11/26/24 History (Aspercreme (lidocaine HCl)) metoprolol succinate 25 mg 25 mg PO DAILY 11/27/24 History tablet,extended release 24 hr mometasone 200 mcg/actuation HFA 2 puff inhalation BID 11/27/24 11/27/24 History aerosol inhaler (Asmanex HFA) natural ears 1 gtt EACH EAR QHS PRN ear p ain 11/27/24 Unknown History pirfenidone 801 mg tablet 801 mg PO TID 11/27/2411/27 06:00 History OXYGEN - Supplemental ([facility] 11/28/24 Unknown History INFORMATIONAL USE ONLY) Allergy/AdvReac Type Severity Reaction Status Date / Time amoxicillin Allergy Mild PT UNSURE Verified 11/27/24 15:00 OF REACTION aspirin Allergy Mild PALPITATION Verified 11/27/24 15:00 S ibuprofen Allergy Mild Swelling Verified 11/27/24 15:00 montelukast Allergy Mild Rash Verified 11/27/24 15:00 rofecoxib Allergy Mild Itching Verified 11/27/24 15:00 Sulfa (Sulfonamide Allergy Mild Rash Verified 11/27/24 15:00 Antibiotics) doxycycline AdvReac Mild GI UPSET Verified 11/27/24 15:00 lisinopril AdvReac Mild GI UPSET Verified 11/27/24 15:00 sertraline AdvReac Mild Diarrhea Verified 11/27/24 15:00 Social History Smoking Status: Never smoker Review of Systems (Anesthesia) ROS Narrative System reviewed and no additional complaints, except as documented. Physical Exam Const alert and oriented x3 HEENT Teeth and Gingiva: dentures and poor dentition Resp normal respiratory effort and normal air movement Auscultation: clear to auscultation bilaterally Cardio regular rate and regular rhythm Back/Spine normal ROM Neuro oriented x3 11/30/24 0759 > Date _ Hero Valladares MD Cosigner Signature: Date CC: ~ Signed [facility]10-01-2025 Consult note [facility] Medical Records Department [address] [place] [address] Consultation - GI 11/30/24 0746 MR#: [id number] Acct: [id number] Name: MERNA WEBSTER Rep #:[id number] : 1940 84 From: [facility] Friend DO PCP: Dr. Сергей Espinoza MD Status:A DM IN Location: [place] [id number] HPI Consult Data Date of Consult: 11/30/24 HPI Narrative Reason for Consultation: GI bleed HPI Narrative: MERNA WEBSTER, is a 84 F who presented to the ED with lower GI bleeding. She has a past medical history of pulmonary fibrosis on 3 L of O2 chronically, hypertension, hypothyroidism, GERD, anxiety who presented [facility] ED 11/27/2024 with rectal bleeding. She admits to recently constipated and passed hard stool and then this morning noticed she had bright red blood per rectum. She had to wipe multiple times butthe bleeding lessened however due to the blood skilled nursing wanted to send her to the ED however she wanted to wait but then she had another bowel movement with bright red blood mixed in. Reported feeling little lightheaded but no other acute complaints. In the ED temp 97.8, heart rate 72, blood pressure 135/67, respiratory 18 pulse ox 100% on 3 L nasal cannula. She did have positive orthostats with blood pressure 131/63 down to 109/57 on standing. CBC with white count 6.5 and hemoglobin 8.5 similar to CBC in August of this year BMP with a sodium of 132, bicarb 33, BUN of 12 and a creatinine of 0.82. Patient had no further episodes in the ED but she did have anoscopy which showed large clot with some amount of blood above the scope. I was asked to see her for lower GI bleeding [facility] Medical History Migraine Psoriasis Depression Osteoporosis Primary insomnia Hyperlipidemia Hypothyroidism Obstructive sleep apnea (adult) (pediatric) Mild persistent asthma, uncomplicated Unspecified abnormalities of gait and mobility Difficulty in walking, not elsewhere classified Muscle wasting and atrophy, not elsewhere classified, left lower leg Muscle wasting and atrophy, not elsewhere classified, right lower leg Chronic respiratory failure with hypoxia Seasonal allergies Anemia High cholesterol GERD (gastroesophageal reflux disease) HTN (hypertension) Anxiety Pulmonary fibrosis Home Medications ?Medication ?Instructions ?Recorded ?Last Taken ?Type acetaminophen 500 mg tablet 500 mg PO Q6H PRN fever or pain 11/03/24 Unknown History (Tylenol Extra Strength) albuterol sulfate 90 mcg/actuation 2 puff inhalation Q 6H PRN 11/03/24 Unknown History aerosol inhaler (Ventolin HFA) shortness of breath or wheezing famotidine 20 mg tablet 20 mg PO QDAY 11/03/2411/27 History fexofenadine 180 mg tablet 180 mg PO QDAY PRN allergy symptoms 11/03/24 Unknown History gabapentin 100 mg capsule 100 mg PO TID 11/03/2411/27 06:00 History guaifenesin 600 mg tablet, 600 mg PO DAILY 11/03/24 History extended release 12 hr (Mucinex) levothyroxine 75 mcg tablet 37.5 mcg PO QDAY 11/03/24 11/27/24 History (Levo-T) magnesium hydroxide 400 mg/5 mL 30 ml PO ONCE PRN stom ach upset 11/03/24 Unknown History oral suspension (Milk of Magnesia) nortriptyline 50 mg capsule 100 mg PO QHS 11/03/24 History ondansetron 4 mg disintegrating 4 mg PO Q6H PRN nausea and vomiting 11/03/24 Unknown History tablet pantoprazole 40 mg tablet,delayed 40 mg PO Q12H 11/27/24 10:00 History release pravastatin 40 mg tablet 40 mg PO QDAY 11/03/2411/26 History psyllium husk 2.6 gram/4.1 gram 1 tbsp PO ONCE 5 11/27/24 History oral powder sennosides 8.6 mg tablet (senna) 8.6 mg PO QDAY 11/27/24 History sumatriptan succinate 100 mg tablet See Rx Instruction s PO .COMPLEX 11/03/24 11/26/24 History verapamil 240 mg 24 hr 240 mg PO BID 11/03/2411/27 History capsule,extended release alprazolam 1 mg tablet 1 mg PO TID anxiety 30 days #90 11/25/24 11/27/24 06:00 Rx tabs clonidine 0.2 mg/24 hr weekly 1 patch topical QWEEK Unknown History transdermal patch gabapentin 100 mg capsule 200 mg PO QHS 11/27/2411/26 History hydralazine 25 mg tablet 25 mg PO Q8H PRN sbp>150 Unknown History lidocaine HCl 4 % topical cream 1 applic topical .COMP JOSE pain 11/27/24 11/26/24 History (Aspercreme (lidocaine HCl)) metoprolol succinate 25 mg 25 mg PO DAILY 11/27/24 History tablet,extended release 24 hr mometasone 200 mcg/actuation HFA 2 puff inhalation BID 11/27/24 11/27/24 History aerosol inhaler (Asmanex HFA) natural ears 1 gtt EACH EAR QHS PRN ear p ain 11/27/24 Unknown History pirfenidone 801 mg tablet 801 mg PO TID 11/27/2411/27 06:00 History OXYGEN - Supplemental ([facility] 11/28/24 Unknown History INFORMATIONAL USE ONLY) Allergy/AdvReac Type Severity Reaction Status Date / Time amoxicillin Allergy Mild PT UNSURE Verified 11/27/24 15:00 OF REACTION aspirin Allergy Mild PALPITATION Verified 11/27/24 15:00 S ibuprofen Allergy Mild Swelling Verified 11/27/24 15:00 montelukast Allergy Mild Rash Verified 11/27/24 15:00 rofecoxib Allergy Mild Itching Verified 11/27/24 15:00 Sulfa (Sulfonamide Allergy Mild Rash Verified 11/27/24 15:00 Antibiotics) doxycycline AdvReac Mild GI UPSET Verified 11/27/24 15:00 lisinopril AdvReac Mild GI UPSET Verified 11/27/24 15:00 sertraline AdvReac Mild Diarrhea Verified 11/27/24 15:00 Social History Smoking Status: Never smoker ROS Constitutional Constitutional: Denies fatigue, fever(s), poor appetite, weight gain or weight loss Gastrointestinal Gastrointestinal: Denies belching, bloating, change in bowel habits, change in stool character, chewing difficulty, coffee ground emesis, constipation, cramping, diarrhea, dyspepsia, dysphagia, earlysatiety, excessive flatus, fecalincontinence, heartburn, hematemesis, hematochezia, hemorrhoids, loose stools, melena, nausea, odynophagia, rectal bleeding, tenesmus, vomiting or weight changes Physical Exam Const alert, oriented x3, no apparent distress and healthy appearing General Appearance: cooperative GI normal to inspection, nondistended, normoactive bowel sounds, soft to palpation,non-tender and non-distended Percussion: normal to percussion Rectal Exam: deferred Lab / Micro Data 11/30/24 03:55 11/30/24 03:55 Labs: Laboratory Results - last 24 hr 11/30/24 03:55: WBC 8.6, RBC 2.63 L, Hgb 8.1 L, Hct 26.0 L, MCV 98.9, MCH 30.8, MCHC 31.2 L, RDW Std Deviation 45.5 H, RDW Coeff of Francisca 12.5, Plt Count 191, MPV9.4, Immature Gran % (Auto) 0.200, Neut% (Auto) 67.9, Lymph % (Auto) 15.3 L, [place] % (Auto) 8.6, Eos % (Auto) 7.5 H, Baso % (Auto) 0.5, Absolute Neuts (auto) 5.8, Absolute Lymphs (auto) 1.31, Nucleated RBC % 0, PT 13.2, INR 1.0, APTT 26.3,Sodium 139, Potassium 4.0, Chloride 100, Carbon Dioxide 30.8, Anion Gap 8,BUN 11, Creatinine 0.48 L, Estim Creat Clear Calc 42.14 L, Est GFR (MDRD) Non- Af94, BUN/Creatinine Ratio 22.3 H, Glucose 90, Calcium 8.9, TSH 2.440 Assessment & Plan Assessment/Plan (1) Bright red blood per rectum: (2) Anemia: PLAN: Assessment Lower GI Bleeding:?Acute, painless bleeding in an elderly patient. Pulmonary Fibrosis:?Chronic respiratory condition requiring oxygen. Anemia:?Chronic, likely exacerbated by acute blood loss. * Differential Diagnosis for Painless Lower GI Bleeding in the Elderly: * Diverticulosis:?Most common cause of painless lower GI bleeding, especially in the elderly. Bleeding is typically abrupt and can be substantial. * Angiodysplasia (Vascular Ectasias):?Degenerative vascular lesions that are also common in the elderly and a frequent cause of painless, recurrent bleeding. * Colonic Neoplasm:?Colon cancer or polyps can cause painless, intermittent bleeding, although it'smore commonly occult. Given the family history, this remains a significant concern. * Hemorrhoids:?Common cause of mild bleeding, but less likely to cause the volume of bleeding described. * Other causes:?Less common etiologies include ischemic colitis (usually has pain), post-polypectomy bleeding, and ulcers. Plan Disposition:?Given the patient's age, comorbidities, and potentially significant blood loss (indicated by maroon stools and clots), she required admission to the hospital for further evaluation and management. Diagnostics: * Colonoscopy:?Urgent colonoscopy is the preferred initial diagnostic and therapeutic tool for a hemodynamically stable patient with lower GI bleeding. * CTA (Computed Tomography Angiography):?May be considered if bleeding is brisk and ongoing, to localize the bleeding source. * Upper Endoscopy:?If colonoscopy is negative, an upper endoscopy should be performed to rule out abrisk upper GI bleed presenting as lower GI bleeding. Inpatient versus outpatient Charges/Coding Visit Charges Inpatient E&M: 66013 Init Hosp L3 11/30/24 0751 Cosigner Signature (if applicable): CC: Dr. Сергей Espinoza MD~ Signed [facility]09-30-2025 Evaluation note* Diagnosis Onset Date Resolution Status Admit Date Acute lower GI bleeding acute S eptember 2024 5:11pm Anemia acute October 5:11pm Bright red blood per rectum acute November 29, 2024 5:11pm [facility] Pulmonary fibrosis acute 2024 5:11pm [facility] Work Phone: 1(521) 912-807309-30-2025 Evaluation note* Diagnosis Onset Date Resolution Status Admit Date Anemia acute October 5:11pm Pulmonary fibrosis acute Sept2024 5:11pm Acute lower [facility] 5:11pm Bright red blood per rectum resolved November 29, 2024 5:11pm [facility] Work Phone: 1(230) 159-786209-30-2025 Progress note Author Brayden Abdullahi [facility] Note Date/Time November 29, 2024 11:13am [facility] Medical Records Department [address] [place] [address] Progress Note - Hospitalist 11/29/24 1108 MR#: [id number] Acct: [id number] Name: MERNA WEBSTER Rep #:[id number] : 1940 84 From: Brayden roberts MD PCP: Dr. Сергей Espinoza MD Status:A DM JAKE Location: [place] [address] Subjective Subjective Hemoglobin dropped to 7.9. She continued to have some blood and clots in her stool last evening Objective Data Objective Data Vital Signs: Vital Signs Temp Pulse Resp BP Pulse Ox O2 Del Method O2 Flow Rate 97.5 F L 67 16 100/51 L 99 Nasal Cannula 3 11/29/24 08:59 11/29/24 08:59 11/29/24 08:59 11/29/24 08:59 11/29/24 08:59 11/29/24 09:00 11/29/24 09:00 Oxygen Flow Rate (L/min) 3 Oxygen Delivery Method Nasal Cannula Weight: 131 lb 13.383 oz Body Mass Index (BMI) 24.0 Intake & Output: Intake and Output for Last 24 Hours 11/28/24 11/29/24 11/30/24 03:59 03:59 03:59 Intake Total 700 / 700 716.67 / 716.67 100 / 100 Balance 700 / 700 716.67 / 716.67 100 / 100 Lab / Micro Data 11/29/24 05:11 11/28/24 05:13 Labs: Laboratory Results - last 24 hr 11/28/24 12:03: Hgb 8.2 L, Hct 26.5 L 11/29/24 05:11: WBC 7.0, RBC 2.55 L, Hgb 7.9 L, Hct 25.7 L, MCV 100.8 H, MCH 31.0, MCHC 30.7 L, RDW Std Deviation 46.3 H, RDW Coeff of Francisca 12.5, Plt Count 179, MPV 9.5, Immature Gran % (Auto) 0.300, Neut % (Auto) 59.4, Lymph % (Auto) 20.4, Monona % (Auto) 9.7, Eos % (Auto) 9.3 H, Baso % (Auto) 0.9, Absolute Neuts (auto) 4.2, Absolute Lymphs (auto) 1.43, Nucleated RBC % 0 Physical Exam Narrative General: Alert, Oriented x3, Cooperative, No apparent distress HEENT: Atraumatic, PERRLA, EOMI, Normocephalic Oral: Moist Mucosa Neck: Supple, No JVD Lungs: Diminished, Normal air movement, No rhonchi, No wheeze, No rales Cardiovascular: Regular rate, Regular Rhythm, Normal S1, Normal S2, No murmurs Abdomen: Soft, Non Tender, Non-Distended, No Hepato-splenomegaly Extremities: No edema, Capillary Refill Less than 3 Seconds Skin: No rashes, No breakdown Musculoskeletal: No Tenderness to Palpation of Joints or Extremities Neurological: No focal neurological deficits, moves all extremities Psych/Mental Status: Normal Affect, Appropriate Assessment & Plan Assessment/Plan (1) Bright red blood per rectum: PLAN: Plan 1. Bright red blood per rectum with positive orthostatic vital signs/GERD ?Hemoglobin on morning labs yesterday was 7.9, afternoon was 8.2 but this morning at 7.9 again ? Will plan for colonoscopy tomorrow and consult GI and proceed with prep today ? Continue with PPI 2. Essential HTN ? Continue with clonidine and verapamil ? Will monitor and make adjustments as necessary ? Will hold her metoprolol 3. History of pulmonary fibrosis with chronic hypoxic respiratory failure ? She is on her baseline oxygen requirement of 3 L nasal cannula ? She can resume her home pirfenidone on discharge ? Continue with her home inhalers 4. Hypothyroidism ? Stable ? Continue with Synthroid 5. Anxiety/depression/migraines ? Stable ? Continue with her home medications DVT: SCDs Charges/Coding Visit Charges Inpatient E&M: 78936 Subs Hosp L2 11/29/24 1113 <Electronically signed by Brayden Abdullahi MD> Cosigner Signature (if applicable): CC: ~ Signed [facility] Work Phone: 1(195) 949-579809-30-2025 Progress note [facility] Medical Records Department [address] [facility] [place] [address] Progress Note - Hospitalist 11/29/24 1108 MR#: [id number] Acct: [id number] Name: MERNA WEBSTER Rep #:[id number] : 1940 84 From: Brayden roberts MD PCP: Dr. Сергей Espinoza MD Status:A DM JAKE Location: [place] [address] Subjective Subjective Hemoglobin dropped to 7.9. She continued to have some blood and clots in her stool last evening Objective Data Objective Data Vital Signs: Vital Signs Temp Pulse Resp BP Pulse Ox O2 Del Method O2 Flow Rate 97.5 F L 67 16 100/51 L 99 Nasal Cannula 3 11/29/24 08:59 11/29/24 08:59 11/29/24 08:59 11/29/24 08:59 11/29/24 08:59 11/29/24 09:00 11/29/24 09:00 Oxygen Flow Rate (L/min) 3 Oxygen Delivery Method Nasal Cannula Weight: 131 lb 13.383 oz Body Mass Index (BMI) 24.0 Intake & Output: Intake and Output for Last 24 Hours 11/28/24 11/29/24 11/30/24 03:59 03:59 03:59 Intake Total 700 / 700 716.67 / 716.67 100 / 100 Balance 700 / 700 716.67 / 716.67 100 / 100 Lab / Micro Data 11/29/24 05:11 11/28/24 05:13 Labs: Laboratory Results - last 24 hr 11/28/24 12:03: Hgb 8.2 L, Hct 26.5 L 11/29/24 05:11: WBC 7.0, RBC 2.55 L, Hgb 7.9 L, Hct 25.7 L, MCV 100.8 H, MCH 31.0, MCHC 30.7 L, RDWStd Deviation 46.3 H, RDW Coeff of Francisca 12.5, Plt Count 179, MPV 9.5, Immature Gran % (Auto) 0.300, Neut % (Auto) 59.4, Lymph % (Auto) 20.4, Monona % (Auto) 9.7, Eos % (Auto) 9.3 H, Baso % (Auto) 0.9, Absolute Neuts (auto) 4.2, Absolute Lymphs (auto) 1.43, Nucleated RBC % 0 Physical Exam Narrative General: Alert, Oriented x3, Cooperative, No apparent distress HEENT: Atraumatic, PERRLA, EOMI, Normocephalic Oral: Moist Mucosa Neck: Supple, No JVD Lungs: Diminished, Normal air movement, No rhonchi, No wheeze, No rales Cardiovascular: Regular rate, Regular Rhythm, Normal S1, Normal S2, No murmurs Abdomen: Soft, Non Tender, Non-Distended, No Hepato-splenomegaly Extremities: No edema, Capillary Refill Less than 3 Seconds Skin: No rashes, No breakdown Musculoskeletal: No Tenderness to Palpation of Joints or Extremities Neurological: No focal neurological deficits, moves all extremities Psych/Mental Status: Normal Affect, Appropriate Assessment & Plan Assessment/Plan (1) Bright red blood per rectum: PLAN: Plan 1. Bright red blood per rectum with positive orthostatic vital signs/GERD ?Hemoglobin on morning labs yesterday was 7.9, afternoon was 8.2 but this morning at 7.9 again ? Will plan for colonoscopy tomorrow and consult GI and proceed with prep today ? Continue with PPI 2. Essential HTN ? Continue with clonidine and verapamil ? Will monitor and make adjustments as necessary ? Will hold her metoprolol 3. History of pulmonary fibrosis with chronic hypoxic respiratory failure ? She is on her baseline oxygen requirement of 3 L nasal cannula ? She can resume her home pirfenidone on discharge ? Continue with her home inhalers 4. Hypothyroidism ? Stable ? Continue with Synthroid 5. Anxiety/depression/migraines ? Stable ? Continue with her home medications DVT: SCDs Charges/Coding Visit Charges Inpatient E&M: 23907 Subs Hosp L2 11/29/24 1113 Cosigner Signature (if applicable): CC: ~ Signed [facility]09-29-2025 Progress note Author Brayden Abdullahi [facility] Note Date/Time November 28, 2024 3:34pm [facility] Medical Records Department [address] [place] [address] Progress Note - Hospitalist 11/28/24 1531 MR#: [id number] Acct: [id number] Name: MERNA WEBSTER Rep #:[id number] : 1940 84 From: Brayden roberts MD PCP: Dr. Сергей Espinoza MD Status:A DM JAKE Location: [place] [address] Subjective Subjective Doing well, no issues overnight Objective Data Objective Data Vital Signs: Vital Signs Temp Pulse Resp BP Pulse Ox O2 Del Method O2 Flow Rate 97.9 F 71 16 124/60 H 99 Nasal Cannula 3 11/28/24 14:00 11/28/24 14:00 11/28/24 14:00 11/28/24 14:11/28/24 14:00 11/28/24 15:28 11/28/24 15:28 Oxygen Flow Rate (L/min) 3 Oxygen Delivery Method Nasal Cannula Weight: 131 lb 13.383 oz Body Mass Index (BMI) 24.0 Intake & Output: Intake and Output for Last 24 Hours 11/27/24 11/28/24 11/29/24 03:59 03:59 03:59 Intake Total 700 / 700 616.67 / 616.67 Balance 700 / 700 616.67 / 616.67 Lab / Micro Data 11/28/24 12:03 11/28/24 05:13 Labs: Laboratory Results - last 24 hr 11/27/24 15:03: Sodium 132 L, Potassium 4.1, Chloride 92 L, Carbon Dioxide 33.1 H, Anion Gap 7, BUN 12, Creatinine 0.82, Estim Creat Clear Calc 45.22 L, Est GFR(MDRD) Non-Af 71, BUN/Creatinine Ratio 14.8, Glucose 127 H, Calcium 8.9 11/28/24 05:13: WBC 5.4, RBC 2.60 L, Hgb 7.9 L, Hct 26.2 L, MCV 100.8 H, MCH 30.4, MCHC 30.2 L, RDW Std Deviation 45.8 H, RDW Coeff of Francisca 12.5, Plt Count 191, MPV 9.2, Immature Gran % (Auto) 0.200, Neut % (Auto) 52.2, Lymph % (Auto) 25.0, Monona % (Auto) 10.0, Eos % (Auto) 11.3 H, Baso % (Auto) 1.3 H, Absolute Neuts (auto) 2.8, Absolute Lymphs (auto) 1.35, Nucleated RBC % 0, Sodium 139, Potassium 4.1, Chloride 101, Carbon Dioxide 32.4 H, Anion Gap 6, BUN 10, Creatinine 0.59 L, Estim Creat Clear Calc 42.14 L, Est GFR (MDRD) Non-Af 89, BUN/Creatinine Ratio 16.5, Glucose 92, Calcium 8.5 11/28/24 12:03: Hgb 8.2 L, Hct 26.5 L Physical Exam Narrative General: Alert, Oriented x3, Cooperative, No apparent distress HEENT: Atraumatic, PERRLA, EOMI, Normocephalic Oral: Moist Mucosa Neck: Supple, No JVD Lungs: Diminished, Normal air movement, No rhonchi, No wheeze, No rales Cardiovascular: Regular rate, Regular Rhythm, Normal S1, Normal S2, No murmurs Abdomen: Soft, Non Tender, Non-Distended, No Hepato-splenomegaly Extremities: No edema, Capillary Refill Less than 3 Seconds Skin: No rashes, No breakdown Musculoskeletal: No Tenderness to Palpation of Joints or Extremities Neurological: No focal neurological deficits, moves all extremities Psych/Mental Status: Normal Affect, Appropriate Assessment & Plan Assessment/Plan (1) Bright red blood per rectum: PLAN: Plan 1. Bright red blood per rectum with positive orthostatic vital signs/GERD ? Continue to monitor hemoglobin, afternoon check was 8.2 so it is possible karina has discontinued her bleeding ? Will recheck in the morning ? Continue with PPI ? Can advance her diet today, if her hemoglobin drops again tomorrow morning radha will need to have a prep with GI consult 2. Essential HTN ? Continue with clonidine and verapamil ? Will monitor and make adjustments as necessary ? Will hold her metoprolol 3. History of pulmonary fibrosis with chronic hypoxic respiratory failure ? She is on her baseline oxygen requirement of 3 L nasal cannula ? She can resume her home pirfenidone on discharge ? Continue with her home inhalers 4. Hypothyroidism ? Stable ? Continue with Synthroid 5. Anxiety/depression/migraines ? Stable ? Continue with her home medications DVT: SCDs Charges/Coding Visit Charges Inpatient E&M: 25999 Subs Hosp L2 11/28/24 1534 <Electronically signed by Brayden Abdullahi MD> Cosigner Signature (if applicable): CC: ~ Signed [facility] Work Phone: 1(376) 488-191009-29-2025 Progress note [facility] Medical Records Department [address] [place] [address] Progress Note - Hospitalist 11/28/24 1531 MR#: [id number] Acct: [id number] Name: MERNA WEBSTER Rep #:[id number] : 1940 84 From: Brayden roberts MD PCP: Dr. Сергей Espinoza MD Status:A DM JAKE Location: [place] [address] Subjective Subjective Doing well, no issues overnight Objective Data Objective Data Vital Signs: Vital Signs Temp Pulse Resp BP Pulse Ox O2 Del Method O2 Flow Rate 97.9 F 71 16 124/60 H 99 Nasal Cannula 3 11/28/24 14:00 11/28/24 14:00 11/28/24 14:00 11/28/24 14:00 11/28/24 14:00 11/28/24 15:28 11/28/24 15:28 Oxygen Flow Rate (L/min) 3 Oxygen Delivery Method Nasal Cannula Weight: 131 lb 13.383 oz Body Mass Index (BMI) 24.0 Intake & Output: Intake and Output for Last 24 Hours 11/27/24 11/28/24 11/29/24 03:59 03:59 03:59 Intake Total 700 / 700 616.67 / 616.67 Balance 700 / 700 616.67 / 616.67 Lab / Micro Data 11/28/24 12:03 11/28/24 05:13 Labs: Laboratory Results - last 24 hr 11/27/24 15:03: Sodium 132 L, Potassium 4.1, Chloride 92 L, Carbon Dioxide 33.1 H, Anion Gap 7, BUN12, Creatinine 0.82, Estim Creat Clear Calc 45.22 L, Est GFR(MDRD) Non-Af 71, BUN/Creatinine Ratio 14.8, Glucose 127 H, Calcium 8.9 11/28/24 05:13: WBC 5.4, RBC 2.60 L, Hgb 7.9 L, Hct 26.2 L, MCV 100.8 H, MCH 30.4, MCHC 30.2 L, RDWStd Deviation 45.8 H, RDW Coeff of Francisca 12.5, Plt Count 191, MPV 9.2, Immature Gran % (Auto) 0.200, Neut % (Auto) 52.2, Lymph % (Auto) 25.0, Monona % (Auto) 10.0, Eos % (Auto) 11.3 H, Baso % (Auto) 1.3 H, Absolute Neuts (auto) 2.8, Absolute Lymphs (auto) 1.35, Nucleated RBC % 0, Sodium 139, Potassium 4.1, Chloride 101, Carbon Dioxide 32.4 H, Anion Gap 6, BUN 10, Creatinine 0.59 L, Estim Creat Clear Calc 42.14 L, Est GFR (MDRD) Non-Af 89, BUN/Creatinine Ratio 16.5, Glucose 92, Calcium 8.5 11/28/24 12:03: Hgb 8.2 L, Hct 26.5 L Physical Exam Narrative General: Alert, Oriented x3, Cooperative, No apparent distress HEENT: Atraumatic, PERRLA, EOMI, Normocephalic Oral: Moist Mucosa Neck: Supple, No JVD Lungs: Diminished, Normal air movement, No rhonchi, No wheeze, No rales Cardiovascular: Regular rate, Regular Rhythm, Normal S1, Normal S2, No murmurs Abdomen: Soft, Non Tender, Non-Distended, No Hepato-splenomegaly Extremities: No edema, Capillary Refill Less than 3 Seconds Skin: No rashes, No breakdown Musculoskeletal: No Tenderness to Palpation of Joints or Extremities Neurological: No focal neurological deficits, moves all extremities Psych/Mental Status: Normal Affect, Appropriate Assessment & Plan Assessment/Plan (1) Bright red blood per rectum: PLAN: Plan 1. Bright red blood per rectum with positive orthostatic vital signs/GERD ? Continue to monitor hemoglobin, afternoon check was 8.2 so it is possible thatmilagro has discontinued her bleeding ? Will recheck in the morning ? Continue with PPI ? Can advance her diet today, if her hemoglobin drops again tomorrow morning radha will need to have a prep with GI consult 2. Essential HTN ? Continue with clonidine and verapamil ? Will monitor and make adjustments as necessary ? Will hold her metoprolol 3. History of pulmonary fibrosis with chronic hypoxic respiratory failure ? She is on her baseline oxygen requirement of 3 L nasal cannula ? She can resume her home pirfenidone on discharge ? Continue with her home inhalers 4. Hypothyroidism ? Stable ? Continue with Synthroid 5. Anxiety/depression/migraines ? Stable ? Continue with her home medications DVT: SCDs Charges/Coding Visit Charges Inpatient E&M: 75501 Subs Hosp L2 11/28/24 1534 Cosigner Signature (if applicable): CC: ~ Signed [facility]09-28-2025 History and physical note Author Mariela Lilly [facility] Note Date/Time November 27, 2024 5:14pm [facility] Medical Records Department [address] [place] [address] H&P Exam - Hospitalist 11/27/24 1642 MR#: [id number] Acct: [id number] Name: MERNA WEBSTER Rep #:[id number] : 1940 84 From: Mariela Lilly MD PCP: Dr. Сергей Espinoza MD Status:R EG ER Location: ED HPI - General General Date of Admission: 11/27/24 Date of Service: 11/27/24 Chief Complaint: Bright red blood per rectum HPI Narrative MERNA WEBSTER, is a 84-year-old female history of pulmonary fibrosis on 3 Lof O2 chronically, hypertension, hypothyroidism, GERD, anxiety who presented [facility] ED 11/27/2024 with rectal bleeding that began today. Recently constipated and passed hard stool and then this morning noticed she hadbright red blood per rectum. Had to wipe multiple times but the bleeding lessened however due to the blood skilled nursing wanted to send her to the ED however she wanted to wait but then she had another bowel movement with bright red blood mixed in. Reported feeling little lightheaded but no other acute complaints. In the ED temp 97.8, heart rate 72, blood pressure 135/67, respiratory 18 pulse ox 100% on 3 L nasal cannula. She did have positive orthostats with blood pressure 131/63 down to 109/57 on standing. CBC with white count 6.5 and hemoglobin 8.5 similar to CBC in August of this year BMP with a sodium of 132, bicarb 33, BUN of 12 and a creatinine of 0.82. Patient had no further episodes in the ED but she did have anoscopy which showed large clot with some amount of blood above the scope. Given the above with the positive orthostats and 2 episodes of blood in the stool with anoscopy results hospitalist contacted for admission. Patient evaluated with her niece at bedside, she reports as above with the 2 episodes of bright red blood per rectum, notes that she did briefly feel lightheaded when she was up moving around and got some double vision that completely resolved and has not come backsince that time. Denies any abdominal pain, no nausea or vomiting, no changes in urination. Has had some changes in her blood pressure medications several days ago, otherwise denies any acute changes no blood thinners. She has not hadany more episodes of blood in her stool in the ED and no further episodes of lightheadedness. Of note patient reports she has a cough with her pulmonary fibrosis and coughs significantly and thinks that may have contributed due to the increased pressure in her abdomen [facility] Medical History Migraine Psoriasis Depression Osteoporosis Primary insomnia Hyperlipidemia Hypothyroidism Obstructive sleep apnea (adult) (pediatric) Mild persistent asthma, uncomplicated Unspecified abnormalities of gait and mobility Difficulty in walking, not elsewhere classified Muscle wasting and atrophy, not elsewhere classified, left lower leg Muscle wasting and atrophy, not elsewhere classified, right lower leg Chronic respiratory failure with hypoxia Seasonal allergies Anemia High cholesterol GERD (gastroesophageal reflux disease) HTN (hypertension) Anxiety Pulmonary fibrosis Home Medications ?Medication ?Instructions ?Recorded ?Last Taken ?Type acetaminophen 500 mg tablet 500 mg PO Q6H PRN fever or pain 11/03/24 Unknown History (Tylenol Extra Strength) albuterol sulfate 90 mcg/actuation 2 puff inhalation Q 6H PRN 11/03/24 Unknown History aerosol inhaler (Ventolin HFA) shortness of breath or wheezing famotidine 20 mg tablet 20 mg PO QDAY 11/03/24 Unkno wn History fexofenadine 180 mg tablet 180 mg PO QDAY PRN allergy symptoms 11/03/24 Unknown History gabapentin 100 mg capsule 100 mg PO TID 11/03/24 Unkno wn History guaifenesin 600 mg tablet, 600 mg PO DAILY 11/03/24 Un known History extended release 12 hr (Mucinex) levothyroxine 75 mcg tablet 37.5 mcg PO QDAY 11/03/24 Unknown History (Levo-T) magnesium hydroxide 400 mg/5 mL 30 ml PO ONCE PRN stom ach upset 11/03/24 Unknown History oral suspension (Milk of Magnesia) nortriptyline 50 mg capsule 100 mg PO QHS 11/03/24 Unk nown History ondansetron 4 mg disintegrating 4 mg PO Q6H PRN nausea and vomiting 11/03/24 Unknown History tablet pantoprazole 40 mg tablet,delayed 40 mg PO Q12H Unknown History release pravastatin 40 mg tablet 40 mg PO QDAY 11/03/24 Unkno wn History psyllium husk 2.6 gram/4.1 gram 1 tbsp PO ONCE 5 Unknown History oral powder sennosides 8.6 mg tablet (senna) 8.6 mg PO QDAY Unknown History sumatriptan succinate 100 mg tablet See Rx Instruction s PO .COMPLEX 11/03/24 Unknown History verapamil 240 mg 24 hr 240 mg PO BID 11/03/24 Unkno wn History capsule,extended release alprazolam 1 mg tablet 1 mg PO TID anxiety 30 days #90 11/25/24 Unknown Rx tabs clonidine 0.2 mg/24 hr weekly 1 patch topical QWEEK Unknown History transdermal patch gabapentin 100 mg capsule 200 mg PO QHS 11/27/24 Unkno wn History hydralazine 25 mg tablet 25 mg PO Q8H PRN sbp>150 Unknown History lidocaine HCl 4 % topical cream 1 applic topical .COMP JOSE pain 11/27/24 Unknown History (Aspercreme (lidocaine HCl)) metoprolol succinate 25 mg 25 mg PO DAILY 11/27/24 Unk nown History tablet,extended release 24 hr mometasone 200 mcg/actuation HFA 2 puff inhalation BID 11/27/24 Unknown History aerosol inhaler (Asmanex HFA) natural ears 1 gtt EACH EAR QHS PRN ear p ain 11/27/24 Unknown History pirfenidone 801 mg tablet 801 mg PO TID 11/27/24 Unkno wn History Allergy/AdvReac Type Severity Reaction Status Date / Time amoxicillin Allergy Mild PT UNSURE Verified 11/27/24 15:00 OF REACTION aspirin Allergy Mild PALPITATION Verified 11/27/24 15:00 S ibuprofen Allergy Mild Swelling Verified 11/27/24 15:00 montelukast Allergy Mild Rash Verified 11/27/24 15:00 rofecoxib Allergy Mild Itching Verified 11/27/24 15:00 Sulfa (Sulfonamide Allergy Mild Rash Verified 11/27/24 15:00 Antibiotics) doxycycline AdvReac Mild GI UPSET Verified 11/27/24 15:00 lisinopril AdvReac Mild GI UPSET Verified 11/27/24 15:00 sertraline AdvReac Mild Diarrhea Verified 11/27/24 15:00 Social History Smoking Status: Never smoker ROS ROS Narrative General: Denies fever/chills, episode of lightheadedness resolved HENT: Denies headache, denies stuffy nose, denies sore throat EYES: Denies changes in vision Resp chronic cough and shortness of breath at baseline Cardiac: Denies chest pain GI: Denies abdominal pain, blood in stool earlier, denies nausea/vomiting : Denies changes in urination Extremity: Denies swelling MSK: Denies weakness Neuro: Problems with chronic neuropathy Heme: Denies any bleeding or bruising Skin: Denies rashes Psychiatric: No complaints voiced Vital Signs Vital Signs Vital Signs: 11/27/24 14:52 11/27/24 15:21 Temperature 97.8 F Temperature Source Oral Pulse Rate 72 Pulse Rate [Lying] 70 Pulse Rate [Sitting (for 1 minute prior to obtaining)] 73 Pulse Rate [Standing (for 1 minute prior to obtaining)] 74 Respiratory Rate 18 Blood Pressure 135/67 H Blood Pressure [Lying] 131/63 H Blood Pressure [Sitting (for 1 minute prior to obtaining)] 120/65 Blood Pressure [Standing (for 1 minute prior to obtaining)] 109/59 L Blood Pressure Mean 89 Blood Pressure Mean [Lying] 85 Blood Pressure Mean [Sitting (for 1 minute prior to obtaining)] 83 Blood Pressure Mean [Standing (for 1 minute prior to obtaining)] 75 Pulse Ox 100 Oxygen Delivery Method Nasal Cannula Oxygen Flow Rate (L/min) 3 Weight Weight: 62.6 kg Body Mass Index (BMI) 25.2 Physical Exam Narrative General: Alert, oriented, no apparent distress HEENT: Atraumatic, normocephalic Eyes: Anicteric, normal conjunctiva, extraocular movements grossly intact Neck: Supple Respiratory: Fine crackles diffusely, normal respiratory effort Cardiovascular: Regular rate and rhythm GI: Soft, nontender, nondistended Extremities: No edema Musculoskeletal: Moving all extremities Neuro: No overt focal neurological deficits Skin: No rashes appreciated Psych: Cooperative Results Lab / Micro Data 11/27/24 15:03 11/27/24 15:03 Labs: Laboratory Results - last 24 hr 11/27/24 15:03: WBC 6.5, RBC 2.75 L, Hgb 8.5 L, Hct 27.7 L, MCV 100.7 H, MCH 30.9, MCHC 30.7 L, RDW Std Deviation 45.8 H, RDW Coeff of Francisca 12.4, Plt Count 191, MPV 9.2, Immature Gran % (Auto) 0.500, Neut % (Auto) 59.8, Lymph % (Auto) 18.9 L, Monona % (Auto) 9.5, Eos % (Auto) 10.4 H, Baso % (Auto) 0.9, Absolute Neuts (auto) 3.9, Absolute Lymphs (auto) 1.23, Nucleated RBC % 0, Sodium 132 L, Potassium 4.1, Chloride 92 L, Carbon Dioxide 33.1 H, Anion Gap 7, BUN 12, Creatinine 0.82, Estim Creat Clear Calc 45.22 L, Est GFR (MDRD) Non-Af 71, BUN/Creatinine Ratio 14.8, Glucose 127 H, Calcium 8.9 Assessment & Plan Assessment/Plan (1) Bright red blood per rectum: PLAN: Plan # Bright red blood per rectum -Patient with 2 episodes of bright red blood per rectum -Anoscopy did show some blood and clot -Suspect this is lower GI, BUN within normal limits, patient on PPI and has no epigastric pain, no blood thinners, she has had no more symptoms of lightheadedness and is presently vitally stable -Patient does take PPI twice daily so we will change this to IV though, again, upper GI bleed much less likely - Will monitor for bleeding overnight, H&H in the a.m. or sooner if any further episodes of blood in stool -Will place patient on a clear liquid diet and n.p.o. at midnight in the event she would have drop in hemoglobin or increased bleeding that would necessitate evaluation/intervention tomorrow -Pending clinical course overnight, vital stability, hemoglobin in the a.m. it can be decided if patient would benefit from inpatient versus outpatient GI evaluation - Does have history of constipation and had recent hard stools, will schedule stool softener # Positive orthostats -Blood pressure in ED 131/63 and subsequently went down to 109/59 upon standing but patient asymptomatic, sitting there on my evaluation systolic 150 and no tachycardia noted - Patient on multiple blood pressure medications and nortriptyline which could cause the positive orthostats potentially especially given patient asymptomatic at that time - Though given patient coming in for GI bleed will monitor blood pressure and heart rate closely and patient will be admitted to PCU #Hypertension - Patient not presently hypotensive, continue clonidine patch and verapamil - Will hold metoprolol as this is generally not indicated with verapamil due to potential for adverse interactions and side effects and patient had positive orthostats on presentation with some transient lightheadedness earlier as well # History of pulmonary fibrosis and chronic hypoxic respiratory failure -On 3 L of nasal cannula chronically -Presently no new respiratory complaints -Continue patient's home pirfenidone -Continue home inhalers - Incentive spirometer #Hypothyroidism -Continue Synthroid #GERD - Will switch PPI to IV though much lower suspicion for upper GI # Anxiety -Continue home medications # Migraines - Patient takes nortriptyline and sumatriptan as needed -Last took sumatriptan last night -No present headache #DVT ppx: SCDs Mariela Lilly MD Charges/Coding Visit Charges Inpatient E&M: 12958 Init Hosp L2 11/27/24 1714 <Electronically signed by Mariela Lilly MD> Cosigner Signature (if applicable): CC: Dr. Сергей Espinoza MD; Dr. Mariela Lilly MD~ Signed [facility] Work Phone: [phone] 901-975209-28-2025 Discharge summary Author Aime Pina [facility] Note Date/Time November 27, 2024 4:11pm [facility] Medical Records Department [address] [place] [address] Emergency Department Summary 11/27/24 MR#: [id number] Acct: [id number] Name: MERNA WEBSTER Rep #:[id number] : 1940 84 From: Aime Pina MD PCP: Dr. Сергей Espinoza MD Status:R EG ER Location: ED HPI HPI - GI History of Present Illness Chief Complaint: GI Bleed Narrative Narrative: 84-year-old female past medical history of external and internal hemorrhoids, not on blood thinners, hypertension, pulmonary fibrosis on 3 L of oxygen at all times presents with rectal bleeding that began today. She is a nursing home facility. She states that she has been constipated recently and passed hard stool. This morning she had bright red blood per rectum. She states she had towipe multiple times but the bleeding lessened. She showed the RN on the toilet paper who wanted to send her immediately to the emergency department. However, patient states that she wanted to wait. She had another bowel movement with bright red blood mixed. She states although she has had history of hemorrhoids she has never had rectal bleeding previously. She feels lightheaded but denies any chest pain or increased shortness of breath over her baseline. No other bleeding diathesis. No nausea or vomiting, no hematemesis. She denies any abdominal pain currently. No recent fevers or chills. [facility] Medical History Migraine Psoriasis Depression Osteoporosis Primary insomnia Hyperlipidemia Hypothyroidism Obstructive sleep apnea (adult) (pediatric) Mild persistent asthma, uncomplicated Unspecified abnormalities of gait and mobility Difficulty in walking, not elsewhere classified Muscle wasting and atrophy, not elsewhere classified, left lower leg Muscle wasting and atrophy, not elsewhere classified, right lower leg Chronic respiratory failure with hypoxia Seasonal allergies Anemia High cholesterol GERD (gastroesophageal reflux disease) HTN (hypertension) Anxiety Pulmonary fibrosis Home Medications ?Medication ?Instructions ?Recorded ?Last Taken ?Type acetaminophen 500 mg tablet 500 mg PO Q6H PRN fever or pain 11/03/24 Unknown History (Tylenol Extra Strength) albuterol sulfate 90 mcg/actuation 2 puff inhalation Q 6H PRN 11/03/24 Unknown History aerosol inhaler (Ventolin HFA) shortness of breath or wheezing famotidine 20 mg tablet 20 mg PO QDAY 11/03/24 Unkno wn History fexofenadine 180 mg tablet 180 mg PO QDAY PRN allergy symptoms 11/03/24 Unknown History gabapentin 100 mg capsule 100 mg PO TID 11/03/24 Unkno wn History guaifenesin 600 mg tablet, 600 mg PO DAILY 11/03/24 Un known History extended release 12 hr (Mucinex) levothyroxine 75 mcg tablet 37.5 mcg PO QDAY 11/03/24 Unknown History (Levo-T) magnesium hydroxide 400 mg/5 mL 30 ml PO ONCE PRN stom ach upset 11/03/24 Unknown History oral suspension (Milk of Magnesia) nortriptyline 50 mg capsule 100 mg PO QHS 11/03/24 Unk nown History ondansetron 4 mg disintegrating 4 mg PO Q6H PRN nausea and vomiting 11/03/24 Unknown History tablet pantoprazole 40 mg tablet,delayed 40 mg PO Q12H Unknown History release pravastatin 40 mg tablet 40 mg PO QDAY 11/03/24 Unkno wn History psyllium husk 2.6 gram/4.1 gram 1 tbsp PO ONCE 5 Unknown History oral powder sennosides 8.6 mg tablet (senna) 8.6 mg PO QDAY Unknown History sumatriptan succinate 100 mg tablet See Rx Instruction s PO .COMPLEX 11/03/24 Unknown History verapamil 240 mg 24 hr 240 mg PO BID 11/03/24 Unkno wn History capsule,extended release alprazolam 1 mg tablet 1 mg PO TID anxiety 30 days #90 11/25/24 Unknown Rx tabs clonidine 0.2 mg/24 hr weekly 1 patch topical QWEEK Unknown History transdermal patch gabapentin 100 mg capsule 200 mg PO QHS 11/27/24 Unkno wn History hydralazine 25 mg tablet 25 mg PO Q8H PRN sbp>150 Unknown History lidocaine HCl 4 % topical cream 1 applic topical .COMP JOSE pain 11/27/24 Unknown History (Aspercreme (lidocaine HCl)) metoprolol succinate 25 mg 25 mg PO DAILY 11/27/24 Unk nown History tablet,extended release 24 hr mometasone 200 mcg/actuation HFA 2 puff inhalation BID 11/27/24 Unknown History aerosol inhaler (Asmanex HFA) natural ears 1 gtt EACH EAR QHS PRN ear p ain 11/27/24 Unknown History pirfenidone 801 mg tablet 801 mg PO TID 11/27/24 Unkno wn History Allergy/AdvReac Type Severity Reaction Status Date / Time amoxicillin Allergy Mild PT UNSURE Verified 11/27/24 15:00 OF REACTION aspirin Allergy Mild PALPITATION Verified 11/27/24 15:00 S ibuprofen Allergy Mild Swelling Verified 11/27/24 15:00 montelukast Allergy Mild Rash Verified 11/27/24 15:00 rofecoxib Allergy Mild Itching Verified 11/27/24 15:00 Sulfa (Sulfonamide Allergy Mild Rash Verified 11/27/24 15:00 Antibiotics) doxycycline AdvReac Mild GI UPSET Verified 11/27/24 15:00 lisinopril AdvReac Mild GI UPSET Verified 11/27/24 15:00 sertraline AdvReac Mild Diarrhea Verified 11/27/24 15:00 Social History Smoking Status: Never smoker ROS ROS ED ROS Narrative Review of systems positive for bright red blood per rectum. Positive lightheadedness. No chest pain or increased shortness of breath, no exacerbating or alleviating factors. No nausea or vomiting. No hematemesis. EXAM Physical Exam Narrative Exam Narrative: Afebrile. Vital signs noted. Nontoxic-appearing. Cardiovascular examination of is a regular rate and rhythm. Lungs clear to auscultation bilaterally without tachypnea or wheezing. Abdomen is soft and nontender without guarding or rebound. Neurological examination nonfocal, nonlateralizing. No pallor of skin or conjunctiva. No central cyanosis. Const Vital Signs: 11/27/24 14:52 11/27/24 15:21 Temperature 97.8 F Temperature Source Oral Pulse Rate 72 Pulse Rate [Lying] 70 Pulse Rate [Sitting (for 1 minute prior to obtaining)] 73 Pulse Rate [Standing (for 1 minute prior to obtaining)] 74 Respiratory Rate 18 Blood Pressure 135/67 H Blood Pressure [Lying] 131/63 H Blood Pressure [Sitting (for 1 minute prior to obtaining)] 120/65 Blood Pressure [Standing (for 1 minute prior to obtaining)] 109/59 L Blood Pressure Mean 89 Blood Pressure Mean [Lying] 85 Blood Pressure Mean [Sitting (for 1 minute prior to obtaining)] 83 Blood Pressure Mean [Standing (for 1 minute prior to obtaining)] 75 Pulse Ox 100 Oxygen Delivery Method Nasal Cannula Oxygen Flow Rate (L/min) 3 MDM MDM MDM Narrative Medical decision making narrative: The differential diagnosis includes but not limited to diverticular bleed versusinternal hemorrhoid bleeding versus external hemorrhoid bleeding versus brisk upper GI bleeding. History and physical does not favor brisk upper GI bleeding. Given her lightheadedness, orthostatics will be obtained, but physical exam is not consistent with anemia requiring transfusion. I do not feel that she needs CT imaging. CBC will be obtained to check her hemoglobin level. BMP obtained as well. Chaperoned anoscopy will be performed at the bedside. I reviewed her laboratory work and she has normal white count 6.5, hemoglobin shows anemia of 8.5, compared to prior labs this appears to be her baseline. Platelet count normal at 191. Orthostatics were mildly positive in the sense that her systolic blood pressure did drop from 135 down to 109. She did not become tachycardic however. Results of the master carpenter anoscopy did show a large clot above the anus scope with a small amount of blood above the scope as well. Sodium low at 132 with chloride also low at 92. BUN normal at 12 with creatinine 0.82. I will check the BNP, but given her drop in blood pressure, anemia, and lower GIbleeding, I suspect more either an AV malformation or diverticular bleed. I do feel that she requires admission. Patient discussed with Dr. Mariela Lilly. It was felt that given her comorbidities and orthostatic hypotension that she should be admitted to the PCU. Disposition is admitted in stable condition. History & Record Review Discussion w/independent historian: Patient Additional record(s) reviewed:: Prior ED visit (Seen for epistaxis, last visit in 2023.) Lab Data Attestation: I reviewed the patient's lab results. Labs: Laboratory Results - last 24 hr 11/27/24 15:03 WBC 6.5 RBC 2.75 L Hgb 8.5 L Hct 27.7 L MCV 100.7 H MCH 30.9 MCHC 30.7 L RDW Std Deviation 45.8 H RDW Coeff of Francisca 12.4 Plt Count 191 MPV 9.2 Immature Gran % (Auto) 0.500 Neut % (Auto) 59.8 Lymph % (Auto) 18.9 L Monona % (Auto) 9.5 Eos % (Auto) 10.4 H Baso % (Auto) 0.9 Absolute Neuts (auto) 3.9 Absolute Lymphs (auto) 1.23 Nucleated RBC % 0 Sodium 132 L Potassium 4.1 Chloride 92 L Carbon Dioxide 33.1 H Anion Gap 7 BUN 12 Creatinine 0.82 Estim Creat Clear Calc 45.22 L Est GFR (MDRD) Non-Af 71 BUN/Creatinine Ratio 14.8 Glucose 127 H Calcium 8.9 Management Discussion w/another healthcare provider: Hospitalist (Dr. Lilly) Discharge Plan Dx/Rx/DC Orders Clinical Impression: Acute lower GI bleeding, Pulmonary fibrosis, Orthostatic hypotension, Anemia Disposition Disposition: Acute Care [facility] What to do if you have Problems For any increased pain, shortness of breath, bleeding, nausea or vomiting, chestpain, or any unexpected problems, contact your Primary Care Provider. Call [facility] ([phone]) or report to the closest Emergency Room. Call 911 if necessary. 11/27/24 1611 <Electronically signed by Aime Pina MD> Cosigner Signature (if applicable): CC: Dr. Сергей Espinoza MD ~ Signed [facility] Work Phone: [phone]) 614-217509-28-2025 History and physical note [facility] Medical Records Department [address] [place] [address] H&P Exam - Hospitalist 11/27/24 1642 MR#: [id number] Acct: [id number] Name: MERNA WEBSTER Rep #:[id number] : 1940 84 From: Mariela Lilly MD PCP: Dr. Сергей Espinoza MD Status:R EG ER Location: ED HPI - General General Date of Admission: 11/27/24 Date of Service: 11/27/24 Chief Complaint: Bright red blood per rectum HPI Narrative MERNA WEBSTER, is a 84-year-old female history of pulmonary fibrosis on 3 Lof O2 chronically, hypertension, hypothyroidism, GERD, anxiety who presented [facility] ED 11/27/2024 with rectal bleeding that began today. Recently constipated and passed hard stool and then this morning noticed she hadbright red blood per rectum. Had to wipe multiple times but the bleeding lessened however due to the blood skilled nursing wanted to send her to the ED however she wanted to wait but then she had another bowel movement with bright red blood mixed in. Reported feeling little lightheadedbut no other acute complaints. In the ED temp 97.8, heart rate 72, blood pressure 135/67, respiratory 18 pulse ox 100% on 3 L nasal cannula. She did have positive orthostats with blood pressure 131/63 down to 109/57 on standing. CBC with white count 6.5 and hemoglobin 8.5 similar to CBC in August of this year BMP with a sodium of 132, bicarb 33, BUN of 12 and a creatinine of 0.82. Patient had no fur ther episodes in the ED but she did have anoscopy which showed large clot with some amount of bloodabove the scope. Given the above with the positive orthostats and 2 episodes of blood in the stool with anoscopy results hospitalist contacted for admission. Patient evaluated with her niece at [facility], she reports as above with the 2 episodes of bright red blood per rectum, notes that she did briefly feel lightheaded when she was up moving around and got some double vision that completely resolved and has not come backsince that time. Denies any abdominal pain, no nausea or vomiting, no changes in urination. Has had some changes in her blood pressure medications several days ago, otherwise denies any acute changes no blood thinners. She has not hadany more episodes of blood in her stool inthe ED and no further episodes of lightheadedness. Of note patient reports she has a cough with herpulmonary fibrosis and coughs significantly and thinks that may have contributed due to the increased pressure in her abdomen [facility] Medical History Migraine Psoriasis Depression Osteoporosis Primary insomnia Hyperlipidemia Hypothyroidism Obstructive sleep apnea (adult) (pediatric) Mild persistent asthma, uncomplicated Unspecified abnormalities of gait and mobility Difficulty in walking, not elsewhere classified Muscle wasting and atrophy, not elsewhere classified, left lower leg Muscle wasting and atrophy, not elsewhere classified, right lower leg Chronic respiratory failure with hypoxia Seasonal allergies Anemia High cholesterol GERD (gastroesophageal reflux disease) HTN (hypertension) Anxiety Pulmonary fibrosis Home Medications ?Medication ?Instructions ?Recorded ?Last Taken ?Type acetaminophen 500 mg tablet 500 mg PO Q6H PRN fever or pain 11/03/24 Unknown History (Tylenol Extra Strength) albuterol sulfate 90 mcg/actuation 2 puff inhalation Q 6H PRN 11/03/24 Unknown History aerosol inhaler (Ventolin HFA) shortness of breath or wheezing famotidine 20 mg tablet 20 mg PO QDAY 11/03/24 Unkno wn History fexofenadine 180 mg tablet 180 mg PO QDAY PRN allergy symptoms 11/03/24 Unknown History gabapentin 100 mg capsule 100 mg PO TID 11/03/24 Unkno wn History guaifenesin 600 mg tablet, 600 mg PO DAILY 11/03/24 Un known History extended release 12 hr (Mucinex) levothyroxine 75 mcg tablet 37.5 mcg PO QDAY 11/03/24 Unknown History (Levo-T) magnesium hydroxide 400 mg/5 mL 30 ml PO ONCE PRN stom ach upset 11/03/24 Unknown History oral suspension (Milk of Magnesia) nortriptyline 50 mg capsule 100 mg PO QHS 11/03/24 Unk nown History ondansetron 4 mg disintegrating 4 mg PO Q6H PRN nausea and vomiting 11/03/24 Unknown History tablet pantoprazole 40 mg tablet,delayed 40 mg PO Q12H Unknown History release pravastatin 40 mg tablet 40 mg PO QDAY 11/03/24 Unkno wn History psyllium husk 2.6 gram/4.1 gram 1 tbsp PO ONCE 5 Unknown History oral powder sennosides 8.6 mg tablet (senna) 8.6 mg PO QDAY Unknown History sumatriptan succinate 100 mg tablet See Rx Instruction s PO .COMPLEX 11/03/24 Unknown History verapamil 240 mg 24 hr 240 mg PO BID 11/03/24 Unkno wn History capsule,extended release alprazolam 1 mg tablet 1 mg PO TID anxiety 30 days #90 11/25/24 Unknown Rx tabs clonidine 0.2 mg/24 hr weekly 1 patch topical QWEEK Unknown History transdermal patch gabapentin 100 mg capsule 200 mg PO QHS 11/27/24 Unkno wn History hydralazine 25 mg tablet 25 mg PO Q8H PRN sbp>150 Unknown History lidocaine HCl 4 % topical cream 1 applic topical .COMP JOSE pain 11/27/24 Unknown History (Aspercreme (lidocaine HCl)) metoprolol succinate 25 mg 25 mg PO DAILY 11/27/24 Unk nown History tablet,extended release 24 hr mometasone 200 mcg/actuation HFA 2 puff inhalation BID 11/27/24 Unknown History aerosol inhaler (Asmanex HFA) natural ears 1 gtt EACH EAR QHS PRN ear p ain 11/27/24 Unknown History pirfenidone 801 mg tablet 801 mg PO TID 11/27/24 Unkno wn History Allergy/AdvReac Type Severity Reaction Status Date / Time amoxicillin Allergy Mild PT UNSURE Verified 11/27/24 15:00 OF REACTION aspirin Allergy Mild PALPITATION Verified 11/27/24 15:00 S ibuprofen Allergy Mild Swelling Verified 11/27/24 15:00 montelukast Allergy Mild Rash Verified 11/27/24 15:00 rofecoxib Allergy Mild Itching Verified 11/27/24 15:00 Sulfa (Sulfonamide Allergy Mild Rash Verified 11/27/24 15:00 Antibiotics) doxycycline AdvReac Mild GI UPSET Verified 11/27/24 15:00 lisinopril AdvReac Mild GI UPSET Verified 11/27/24 15:00 sertraline AdvReac Mild Diarrhea Verified 11/27/24 15:00 Social History Smoking Status: Never smoker ROS ROS Narrative General: Denies fever/chills, episode of lightheadedness resolved HENT: Denies headache, denies stuffy nose, denies sore throat EYES: Denies changes in vision Resp chronic cough and shortness of breath at baseline Cardiac: Denies chest pain GI: Denies abdominal pain, blood in stool earlier, denies nausea/vomiting : Denies changes in urination Extremity: Denies swelling MSK: Denies weakness Neuro: Problems with chronic neuropathy Heme: Denies any bleeding or bruising Skin: Denies rashes Psychiatric: No complaints voiced Vital Signs Vital Signs Vital Signs: 11/27/24 14:52 11/27/24 15:21 Temperature 97.8 F Temperature Source Oral Pulse Rate 72 Pulse Rate [Lying] 70 Pulse Rate [Sitting (for 1 minute prior to obtaining)] 73 Pulse Rate [Standing (for 1 minute prior to obtaining)] 74 Respiratory Rate 18 Blood Pressure 135/67 H Blood Pressure [Lying] 131/63 H Blood Pressure [Sitting (for 1 minute prior to obtaining)] 120/65 Blood Pressure [Standing (for 1 minute prior to obtaining)] 109/59 L Blood Pressure Mean 89 Blood Pressure Mean [Lying] 85 Blood Pressure Mean [Sitting (for 1 minute prior to obtaining)] 83 Blood Pressure Mean [Standing (for 1 minute prior to obtaining)] 75 Pulse Ox 100 Oxygen Delivery Method Nasal Cannula Oxygen Flow Rate (L/min) 3 Weight Weight: 62.6 kg Body Mass Index (BMI) 25.2 Physical Exam Narrative General: Alert, oriented, no apparent distress HEENT: Atraumatic, normocephalic Eyes: Anicteric, normal conjunctiva, extraocular movements grossly intact Neck: Supple Respiratory: Fine crackles diffusely, normal respiratory effort Cardiovascular: Regular rate and rhythm GI: Soft, nontender, nondistended Extremities: No edema Musculoskeletal: Moving all extremities Neuro: No overt focal neurological deficits Skin: No rashes appreciated Psych: Cooperative Results Lab / Micro Data 11/27/24 15:03 11/27/24 15:03 Labs: Laboratory Results - last 24 hr 11/27/24 15:03: WBC 6.5, RBC 2.75 L, Hgb 8.5 L, Hct 27.7 L, MCV 100.7 H, MCH 30.9, MCHC 30.7 L, RDWStd Deviation 45.8 H, RDW Coeff of Francisca 12.4, Plt Count 191, MPV 9.2, Immature Gran % (Auto) 0.500, Neut % (Auto) 59.8, Lymph % (Auto) 18.9 L, Monona % (Auto) 9.5, Eos % (Auto) 10.4 H, Baso % (Auto) 0.9, Absolute Neuts (auto) 3.9, Absolute Lymphs (auto) 1.23, Nucleated RBC % 0, Sodium 132 L, Potassium4.1, Chloride 92 L, Carbon Dioxide 33.1 H, Anion Gap 7, BUN 12, Creatinine 0.82, Estim Creat Clear Calc 45.22 L, Est GFR (MDRD) Non-Af 71, BUN/Creatinine Ratio 14.8, Glucose 127 H, Calcium 8.9 Assessment & Plan Assessment/Plan (1) Bright red blood per rectum: PLAN: Plan # Bright red blood per rectum -Patient with 2 episodes of bright red blood per rectum -Anoscopy did show some blood and clot -Suspect this is lower GI, BUN within normal limits, patient on PPI and has no epigastric pain, no blood thinners, she has had no more symptoms of lightheadedness and is presently vitally stable -Patient does take PPI twice daily so we will change this to IV though, again, upper GI bleed much less likely - Will monitor for bleeding overnight, H&H in the a.m. or sooner if any further episodes of blood in stool -Will place patient on a clear liquid diet and n.p.o. at midnight in the event she would have drop in hemoglobin or increased bleeding that would necessitate evaluation/intervention tomorrow -Pending clinical course overnight, vital stability, hemoglobin in the a.m. it can be decided if patient would benefit from inpatient versus outpatient GI evaluation - Does have history of constipation and had recent hard stools, will schedule stool softener # Positive orthostats -Blood pressure in ED 131/63 and subsequently went down to 109/59 upon standing but patient asymptomatic, sitting there on my evaluation systolic 150 and no tachycardia noted - Patient on multiple blood pressure medications and nortriptyline which could cause the positive orthostats potentially especially given patient asymptomatic at that time - Though given patient coming in for GI bleed will monitor blood pressure and heart rate closely and patient will be admitted to PCU #Hypertension - Patient not presently hypotensive, continue clonidine patch and verapamil - Will hold metoprolol as this is generally not indicated with verapamil due to potential for adverse interactions and side effects and patient had positive orthostats on presentation with some transient lightheadedness earlier as well # History of pulmonary fibrosis and chronic hypoxic respiratory failure -On 3 L of nasal cannula chronically -Presently no new respiratory complaints -Continue patient's home pirfenidone -Continue home inhalers - Incentive spirometer #Hypothyroidism -Continue Synthroid #GERD - Will switch PPI to IV though much lower suspicion for upper GI # Anxiety -Continue home medications # Migraines - Patient takes nortriptyline and sumatriptan as needed -Last took sumatriptan last night -No present headache #DVT ppx: SCDs Mariela Lilyl MD Charges/Coding Visit Charges Inpatient E&M: 59896 Init Hosp L2 11/27/24 1714 Cosigner Signature (if applicable): CC: Dr. Сергей Espinoza MD; Dr. Mariela Lilly MD~ Signed [facility]09-28-2025 Discharge summary [facility] Medical Records Department [address] [place] [address] Emergency Department Summary 11/27/24 MR#: [id number] Acct: [id number] Name: MERNA WEBSTER Rep #:[id number] : 1940 84 From: Aime Pina MD PCP: Dr. Сергей Espinoza MD Status:R EG ER Location: ED HPI HPI - GI History of Present Illness Chief Complaint: GI Bleed Narrative Narrative: 84-year-old female past medical history of external and internal hemorrhoids, not on blood thinners, hypertension, pulmonary fibrosis on 3 L of oxygen at all times presents with rectal bleeding that began today. She is a nursing home facility. She states that she has been constipated recently and passed hard stool. This morning she had bright red blood per rectum. She states she had towipe multiple times but the bleeding lessened. She showed the RN on the toilet paper who wanted to send her immediately to the emergency department. However, patient states that she wanted to wait. She had another bowel movement with bright red blood mixed. She states although she has had history of hemorrhoids she has never had rectal bleeding previously. She feels lightheaded but denies any chest pain or increased shortness of breath over her baseline. No other bleeding diathesis. No nausea or vomiting, no hematemesis. She denies any abdominal pain currently. No recent fevers or chills. [facility] Medical History Migraine Psoriasis Depression Osteoporosis Primary insomnia Hyperlipidemia Hypothyroidism Obstructive sleep apnea (adult) (pediatric) Mild persistent asthma, uncomplicated Unspecified abnormalities of gait and mobility Difficulty in walking, not elsewhere classified Muscle wasting and atrophy, not elsewhere classified, left lower leg Muscle wasting and atrophy, not elsewhere classified, right lower leg Chronic respiratory failure with hypoxia Seasonal allergies Anemia High cholesterol GERD (gastroesophageal reflux disease) HTN (hypertension) Anxiety Pulmonary fibrosis Home Medications ?Medication ?Instructions ?Recorded ?Last Taken ?Type acetaminophen 500 mg tablet 500 mg PO Q6H PRN fever or pain 11/03/24 Unknown History (Tylenol Extra Strength) albuterol sulfate 90 mcg/actuation 2 puff inhalation Q 6H PRN 11/03/24 Unknown History aerosol inhaler (Ventolin HFA) shortness of breath or wheezing famotidine 20 mg tablet 20 mg PO QDAY 11/03/24 Unkno wn History fexofenadine 180 mg tablet 180 mg PO QDAY PRN allergy symptoms 11/03/24 Unknown History gabapentin 100 mg capsule 100 mg PO TID 11/03/24 Unkno wn History guaifenesin 600 mg tablet, 600 mg PO DAILY 11/03/24 Un known History extended release 12 hr (Mucinex) levothyroxine 75 mcg tablet 37.5 mcg PO QDAY 11/03/24 Unknown History (Levo-T) magnesium hydroxide 400 mg/5 mL 30 ml PO ONCE PRN stom ach upset 11/03/24 Unknown History oral suspension (Milk of Magnesia) nortriptyline 50 mg capsule 100 mg PO QHS 11/03/24 Unk nown History ondansetron 4 mg disintegrating 4 mg PO Q6H PRN nausea and vomiting 11/03/24 Unknown History tablet pantoprazole 40 mg tablet,delayed 40 mg PO Q12H Unknown History release pravastatin 40 mg tablet 40 mg PO QDAY 11/03/24 Unkno wn History psyllium husk 2.6 gram/4.1 gram 1 tbsp PO ONCE 5 Unknown History oral powder sennosides 8.6 mg tablet (senna) 8.6 mg PO QDAY Unknown History sumatriptan succinate 100 mg tablet See Rx Instruction s PO .COMPLEX 11/03/24 Unknown History verapamil 240 mg 24 hr 240 mg PO BID 11/03/24 Unkno wn History capsule,extended release alprazolam 1 mg tablet 1 mg PO TID anxiety 30 days #90 11/25/24 Unknown Rx tabs clonidine 0.2 mg/24 hr weekly 1 patch topical QWEEK Unknown History transdermal patch gabapentin 100 mg capsule 200 mg PO QHS 11/27/24 Unkno wn History hydralazine 25 mg tablet 25 mg PO Q8H PRN sbp>150 Unknown History lidocaine HCl 4 % topical cream 1 applic topical .COMP JOSE pain 11/27/24 Unknown History (Aspercreme (lidocaine HCl)) metoprolol succinate 25 mg 25 mg PO DAILY 11/27/24 Unk nown History tablet,extended release 24 hr mometasone 200 mcg/actuation HFA 2 puff inhalation BID 11/27/24 Unknown History aerosol inhaler (Asmanex HFA) natural ears 1 gtt EACH EAR QHS PRN ear p ain 11/27/24 Unknown History pirfenidone 801 mg tablet 801 mg PO TID 11/27/24 Unkno wn History Allergy/AdvReac Type Severity Reaction Status Date / Time amoxicillin Allergy Mild PT UNSURE Verified 11/27/24 15:00 OF REACTION aspirin Allergy Mild PALPITATION Verified 11/27/24 15:00 S ibuprofen Allergy Mild Swelling Verified 11/27/24 15:00 montelukast Allergy Mild Rash Verified 11/27/24 15:00 rofecoxib Allergy Mild Itching Verified 11/27/24 15:00 Sulfa (Sulfonamide Allergy Mild Rash Verified 11/27/24 15:00 Antibiotics) doxycycline AdvReac Mild GI UPSET Verified 11/27/24 15:00 lisinopril AdvReac Mild GI UPSET Verified 11/27/24 15:00 sertraline AdvReac Mild Diarrhea Verified 11/27/24 15:00 Social History Smoking Status: Never smoker ROS ROS ED ROS Narrative Review of systems positive for bright red blood per rectum. Positive lightheadedness. No chest painor increased shortness of breath, no exacerbating or alleviating factors. No nausea or vomiting. Nohematemesis. EXAM Physical Exam Narrative Exam Narrative: Afebrile. Vital signs noted. Nontoxic-appearing. Cardiovascular examination of is a regular rate and rhythm. Lungs clear to auscultation bilaterally without tachypnea or wheezing. Abdomen is soft andnontender without guarding or rebound. Neurological examination nonfocal, nonlateralizing. No pallor of skin or conjunctiva. No central cyanosis. Const Vital Signs: 11/27/24 14:52 11/27/24 15:21 Temperature 97.8 F Temperature Source Oral Pulse Rate 72 Pulse Rate [Lying] 70 Pulse Rate [Sitting (for 1 minute prior to obtaining)] 73 Pulse Rate [Standing (for 1 minute prior to obtaining)] 74 Respiratory Rate 18 Blood Pressure 135/67 H Blood Pressure [Lying] 131/63 H Blood Pressure [Sitting (for 1 minute prior to obtaining)] 120/65 Blood Pressure [Standing (for 1 minute prior to obtaining)] 109/59 L Blood Pressure Mean 89 Blood Pressure Mean [Lying] 85 Blood Pressure Mean [Sitting (for 1 minute prior to obtaining)] 83 Blood Pressure Mean [Standing (for 1 minute prior to obtaining)] 75 Pulse Ox 100 Oxygen Delivery Method Nasal Cannula Oxygen Flow Rate (L/min) 3 MDM MDM MDM Narrative Medical decision making narrative: The differential diagnosis includes but not limited to diverticular bleed versusinternal hemorrhoidbleeding versus external hemorrhoid bleeding versus brisk upper GI bleeding. History and physical does not favor brisk upper GI bleeding. Given her lightheadedness, orthostatics will be obtained, butphysical exam is not consistent with anemia requiring transfusion. I do not feel that she needs CT imaging. CBC will be obtained to check her hemoglobin level. BMP obtained as well. Chaperoned anoscopy will be performed at the bedside. I reviewed her laboratory work and she has normal white count 6.5, hemoglobin shows anemia of 8.5, compared to prior labs this appears to be her baseline. Platelet count normal at 191. Orthostatics were mildly positive in the sense that her systolic blood pressure did drop from 135 down to 109. Shedid not become tachycardic however. Results of the master carpenter anoscopy did show a large clot above the anus scope with a small amount of blood above the scope as well. Sodium low at 132 with chloride also low at 92. BUN normal at 12 with creatinine 0.82. I will check the BNP, but given her drop in blood pressure, anemia, and lower GIbleeding, I suspectmore either an AV malformation or diverticular bleed. I do feel that she requires admission. Patient discussed with Dr. Mariela Lilly. It was felt that given her comorbidities and orthostatic hypotension that she should be admitted to the PCU. Disposition is admitted in stable condition. History & Record Review Discussion w/independent historian: Patient Additional record(s) reviewed:: Prior ED visit (Seen for epistaxis, last visit in 2023.) Lab Data Attestation: I reviewed the patient's lab results. Labs: Laboratory Results - last 24 hr 11/27/24 15:03 WBC 6.5 RBC 2.75 L Hgb 8.5 L Hct 27.7 L MCV 100.7 H MCH 30.9 MCHC 30.7 L RDW Std Deviation 45.8 H RDW Coeff of Francisca 12.4 Plt Count 191 MPV 9.2 Immature Gran % (Auto) 0.500 Neut % (Auto) 59.8 Lymph % (Auto) 18.9 L Monona % (Auto) 9.5 Eos % (Auto) 10.4 H Baso % (Auto) 0.9 Absolute Neuts (auto) 3.9 Absolute Lymphs (auto) 1.23 Nucleated RBC % 0 Sodium 132 L Potassium 4.1 Chloride 92 L Carbon Dioxide 33.1 H Anion Gap 7 BUN 12 Creatinine 0.82 Estim Creat Clear Calc 45.22 L Est GFR (MDRD) Non-Af 71 BUN/Creatinine Ratio 14.8 Glucose 127 H Calcium 8.9 Management Discussion w/another healthcare provider: Hospitalist (Dr. Lilly) Discharge Plan Dx/Rx/DC Orders Clinical Impression: Acute lower GI bleeding, Pulmonary fibrosis, Orthostatic hypotension, Anemia Disposition Disposition: Acute Care [facility] What to do if you have Problems For any increased pain, shortness of breath, bleeding, nausea or vomiting, chestpain, or any unexpected problems, contact your Primary Care Provider. Call [facility] ([phone]) or report tothe closest Emergency Room. Call 911 if necessary. 11/27/24 1613 Cosigner Signature (if applicable): CC: Dr. Сергей Espinoza MD ~ Signed [facility]11-25-2024 Telephone encounter Note* Telephone Encounter - Lorene Jauregui LPN - 01/25/2024 8:29 AM EST Fax received from [facility] requesting sleep study and office visit notes supporting use of cpap. Sleep study from 2015 as well as office visit notes from 11/28/22 and 09/25/23 faxed to [facility] at [phone]. Transmission successful, paperwork in fax drawer. [facility]11-25-2024 Miscellaneous Notes* Telephone Encounter - Lorene Jauregui LPN - 01/25/2024 8:29 AM EST Fax received from [facility] requesting sleep study and office visit notes supporting use of cpap. Sleep study from 2015 as well as office visit notes from 11/28/22 and 09/25/23 faxed to [facility] at [phone]. Transmission successful, paperwork in fax drawer. documented in this encounterOhio [facility] Hospital10-31-2024 Telephone encounter Note * Telephone Encounter - Elisabeth Barber MA - 12/31/2023 3:19 PM EDT Fax received from [facility] for orders for Oxygen Concentrator and Supplies. E1390,E1392,A4615,A4616. 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 Placed in Dr. Grier's office to be signed. [facility]10-31-2024 Miscellaneous Notes* Telephone Encounter - Elisabeth Barber MA - 12/31/2023 3:19 PM EDT Fax received from [facility] for orders for Oxygen Concentrator and Supplies. E1390,E1392,A4615,A4616. 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 Placed in Dr. Grier's office to be signed. documented in this encounterOhio Valley Surgical Hospital07-26-2024 History of Present illness Narrative* Dustin, Ofelia Rodas APRN.BULLET CASTING OPERATOR - 09/25/2023 3:00 PM EDT Images from the original note were not included. Pulmonary Medicine Patients name: Merna Webster PCP: Сергей Espinoza MD CC: follow-up HPI: Merna Webster is a 83 year old female who presents today for follow- up with PFT's. She has a past medical [...] J30.9 - Well controlled on Flonase and Jennifer Since her last visit, she had a cough and runny nose and was treated with Prednisone and antibiotics. Otherwise, she reports doing well. She moved into a skilled nursing with her at the beginning of June which has been helpful. Current symptoms include daily cough with clear phelgm but it's notoverly bothersome. No hemoptysis. Rare wheezing. Has dyspnea [...] fexofenadine 180 mg tablet Commonly known as: JENNIFER * fluticasone 50 mcg/actuation nasal spray Commonly known as: FLONASE Use 1 [place] in each nostril once daily. * fluticasone [...] as other medications prescribed for you. 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 French Instructor: YURIDIA Transcribe Date/Time: Sep 24 2023 8:39A Dictated by : MIGUEL ROJO MD This examination was interpreted and the report reviewed and electronically signed by: MIGUEL ROJO MD on Sep 24 2023 12:05PM EST Results-Findings * * *Final Report* * * DATE OF EXAM: Sep 18 2023 2:41PM [facility] 0541 - CT CHEST WO IVCON [...] Neut (k/uL) Date Value 07/14/2023 4.78 Abs Monona (k/uL) Date Value 07/14/2023 0.80 12/21/2020 0.53 [...] patient today. Shows restrictive lung disease with severelyreduced DLCO - Continue Esbriet, started August 2018 [...] and edited and updated as necessary. Ofelia Chan APRN.CNP Associated attestation - Mouna Dillard APRN.CNP - 09/26/2023 7:45 AM EDT Attending Note I have personally performed a face to face assessment of the patient and have reviewed the PA/BLUEPRINT READER note. Agree with plan as stated Mouna Dillard APRN-TREVA Pulmonary Medicine documented in this encounterOhio Valley Surgical Hospital07-26-2024 History of Present illness Narrative* Zayra Ceja RRT - 09/25/2023 1:48 PM EDT PULM FUNCTION: Provider: Mouna Dillard APRN.CNP Spirometry: 1 DLCO: 1 LV - Box: 1 documented in this encounterChristopher Ville [id number] History of Present illness Narrative* Cheyenne Mark RT(R) - 09/18/2023 2:00 PM EDT Radiology Service Progress Note PATIENT NAME: Merna Webster DATE OF SERVICE: September 18, 2023 TIME: 3:06 PM PATIENT IDENTITY VERIFICATION COMPLETED USING TWO (2) IDENTIFIERS: Name and Date of confirmedby patient verbally. FALL SCREENING: Has the patient had 2 falls in the last year or 1 fall with injury or currently using an Ambulatory Assistive Device (Walker, Cane, Wheelchair, Crutches, etc.)? No PATIENT GENDER DATA: Female. status: : No status: NO. PATIENT RELEVANT IMPLANT DATA REVIEWED: Not Applicable PATIENT PRESENTS WITH AN IMPLANTABLE OR ATTACHED MEDICAL SPECIALIST: No RADIOLOGY DEPARTMENT: CT; Exam(s) Completed: Chest PERIPHERAL IV DATA: Not applicable SIGNED BY: RT Carlos(R) September 18, 2023 3:06 PM documented in this encounterOhio Valley Surgical Hospital07-16-2024 Telephone encounter Note * Telephone Encounter - Lorene Jauregui LPN - 09/15/2023 7:48 AM EDT No messages in chart from this office that patient was called recently. Looks like she has an appt for a scan in [place] this Thursday, may have been reminder call? [facility]07-16-2024 Miscellaneous Notes* Telephone Encounter - Lorene Jauregui LPN - 09/15/2023 7:48 AM EDT No messages in chart from this office that patient was called recently. Looks like she has an appt for a scan in [place] this Thursday, may have been reminder call? * Telephone Encounter - Norma Mckeon RN - 09/15/2023 7:44 AM EDT Patient returning call from office Please advise documented in this encounterOhio Valley Surgical Hospital07-16-2024 Telephone encounter Note * Telephone Encounter - Norma Mckeon RN - 09/15/2023 7:44 AM EDT Patient returning call from office Please advise [facility]07-10-2024 Telephone encounter Note* Telephone Encounter - Norma Mckeon RN - 09/09/2023 12:45 PM EDT Spoke with [facility] pharmacy Advised pt will be getting from another pharmacy, [facility] Spoke with Lavinia pharmacist [facility]07-10-2024 Miscellaneous Notes* Telephone Encounter - Norma Mckeon RN - 09/09/2023 12:45 PM EDT Spoke with [facility] pharmacy Advised pt will be getting from another pharmacy, [facility] Spoke with Lavinia pharmacist * Telephone Encounter - Martina Henry - 09/07/2023 2:09 PM EDT Patient called in stating she wants to use [facility] * Telephone Encounter - Lorene Jauregui LPN - 09/07/2023 9:50 AM EDT Received request on 09/02/23 for esbriet from [facility] and this was sent in for a year's supply. Now the [facility] requesting refills. Voicemail left for patient to return call to find out which pharmacy she is using for this prescription. * Telephone Encounter - Barbara Grayson - 09/07/2023 9:27 AM EDT Pharmacy verified in [facility] The phone number for [facility] in case of any questions. [phone] Patient has been identified by name and [...] Please advise. Barbara Grayson documented in this encounterOhio Valley Surgical Hospital07-08-2024 Telephone encounter Note * Telephone Encounter - Martina Henry - 09/07/2023 2:09 PM EDT Patient called in stating she wants to use [facility]07-08-2024 Telephone encounter Note* Telephone Encounter - Lorene Jauregui LPN - 09/07/2023 9:50 AM EDT Received request on 09/02/23 for esbriet from [facility] and this was sent in for a year's supply. Now the [facility] requesting refills. Voicemail left for patient to return call to find out which pharmacy she is using for this prescription. [facility]07-08-2024 Telephone encounter Note* Telephone Encounter - Barbara Grayson - 09/07/2023 9:27 AM EDT Pharmacy verified in [facility] The phone number for [facility] in case of any questions. [phone] Patient has been identified by name and [...] lb) Not applicable Please advise. Barbara Grayson [facility]07-03-2024 Telephone encounter Note* Telephone Encounter - Jessica Romano LPN - 09/02/2023 1:46 PM EDT Received a fax from [facility] requesting a refill on the following medication. Please file if appropriate. [facility]07-03-2024 Miscellaneous Notes* Telephone Encounter - Jessica Romano LPN - 09/02/2023 1:46 PM EDT Received a fax from [facility] requesting a refill on the following medication. Please file if appropriate. documented in this encounterOhio Valley Surgical Hospital06-26-2024 Telephone encounter Note * Telephone Encounter - Elisabeth Barber MA - 08/26/2023 11:50 AM EDT Form faxed back to [employer]. Transmission with forms in drawer. [facility]06-26-2024 Miscellaneous Notes* Telephone Encounter - Elisabeth Barber MA - 08/26/2023 11:50 AM EDT Form faxed back to [employer]. Transmission with forms in drawer. * Telephone Encounter - Lorene Jauregui LPN - 08/17/2023 10:40 AM EDT Fax received from [employer] - form for refills for esbriet through [employer]. Form placed on dr grier's desk for review/signature. documented in this encounterOhio Valley Surgical Hospital06-17-2024 Telephone encounter Note * Telephone Encounter - Lorene Jauregui LPN - 08/17/2023 10:40 AM EDT Fax received from [employer] form for refills for esbriet through [facility]. Form placed on dr grier's desk for review/signature. [facility]06-10-20[facility] Telephone encounter Note* Telephone Encounter - Genevieve Fountain LPN - 08/10/2023 9:19 PM EDT Pt would like Dr. Espinoza to know she is in a skilled nursing [facility]. Pt would like the doctor to call Stacie Nurse Practitioner at facility [phone], regarding pt's meds. Pt concerned BOTTLING SUPERVISOR would like to change medications. PT call back # [phone] Genevieve Fountain LPN [facility]06-10-2024 Miscellaneous Notes* Telephone Encounter - Genevieve Fountain LPN - 08/10/2023 9:19 PM EDT Pt would like Dr. Espinoza to know she is in a skilled nursing [facility]. Pt would like the doctor to call Stacie Nurse Practitioner at facility [phone], regarding pt's meds. Pt concerned BOTTLING SUPERVISOR would like to change medications. PT call back # [phone] Genevieve Fountain LPN documented in this encounterOhio Valley Surgical Hospital05-24-2024 Telephone encounter Note * Telephone Encounter - Jessica Romano LPN - 07/24/2023 8:[address] Nersi SINGLETON [facility]05-24-2024 Miscellaneous Notes* Telephone Encounter - Jessica Romano LPN - 07/24/2023 8:[address] Neris SINGLETON documented in this encounterOhio Valley Surgical Hospital05-23-2024 Telephone encounter Note * Telephone Encounter - Callie Taylor MA - 07/23/2023 4:22 PM EDT Re-faxed with successful transmission [facility]05-23-2024 Miscellaneous Notes* Telephone Encounter - Callie Taylor MA - 07/23/2023 4:22 PM EDT Re-faxed with successful transmission * Telephone Encounter - Trudi Jordan - 07/23/2023 4:12 PM EDT Char [facility] is calling back and states that they did not receive the faxed form. Char asking to have the form faxed again. Char will be out of the office tomorrow. If you need to reach office, please contact Brinda Fernandez @ [phone] * Telephone Encounter - Callie Taylor MA - 07/23/2023 2:52 PM EDT Request completed and faxed. * Telephone Encounter - Сергей Espinoza MD - 07/23/2023 1:05 PM EDT Forms completed. In outbox. Thanks Сергей Espinoza MD * Telephone Encounter - Callie Taylor MA - 07/22/2023 1:50 PM EDT Type of letter/form/fax request - Forms Form received from [facility] Placed on MD desk () for completion. Completed form needs to be faxed to [phone]. Route to ID when form completed for processing documented in this encounterOhio Valley Surgical Hospital05-23-2024 Telephone encounter Note * Telephone Encounter - Trudi Jordan - 07/23/2023 4:12 PM EDT Char from [facility] is calling back and states that they did not receive the faxed form. Char asking to have the form faxed again. Char will be out of the office tomorrow. If you need to reach office, please contact Brinda Fernandez @ [phone] [facility]05-23-2024 Telephone encounter Note* Telephone Encounter - Callie Taylor MA - 07/23/2023 2:52 PM EDT Request completed and faxed. [facility]05-23-2024 Telephone encounter Note* Telephone Encounter - Сергей Espinoza MD - 07/23/2023 1:05 PM EDT Forms completed. In outbox. Thanks Сергей Espinoza MD [facility]05-22-2024 Telephone encounter Note* Telephone Encounter - Callie Taylor MA - 07/22/2023 1:50 PM EDT Type of letter/form/fax request - Forms Form received from [facility] [employer] [facility] [employer] Placed on MD desk () for completion. Completed form needs to be faxed to [phone]. Route to ID when form completed for processing [facility]05-22-2024 Telephone encounter Note* Telephone Encounter - Jaclyn Rose MA - 07/22/2023 8:29 AM EDT Pharmacy verified in [facility] Patient has been identified by name [...] Not applicable Please advise. Jaclyn Rose MA [facility]05-22-2024 Miscellaneous Notes* Telephone Encounter - Jaclyn Rose MA - 07/22/2023 8:29 AM EDT Pharmacy verified in [facility] Patient has been identified by name [...] advise. Jaclyn Rose MA documented in this encounterOhio Valley Surgical Hospital05-17-2024 Telephone encounter Note * Telephone Encounter - Jaclyn Rose MA - 07/17/2023 9:04 AM EDT Pharmacy verified in [facility] Patient has been identified by name [...] Not applicable Please advise. Jaclyn Rose MA [facility]05-17-2024 Miscellaneous Notes* Telephone Encounter - Jaclyn Rose MA - 07/17/2023 9:04 AM EDT Pharmacy verified in [facility] Patient has been identified by name [...] advise. Jaclyn Rose MA documented in this encounterOhio Valley Surgical Hospital05-16-2024 Telephone encounter Note * Telephone Encounter - Rachel George - 07/16/2023 11:36 AM EDT Referral source: Brayden Murdock MD ([facility] [place]) Reason for visit: chronic migraine evaluation External records: Sent with referral Triage: Not required Financial clearance: Not required to schedule [facility]05-16-2024 Miscellaneous Notes* Telephone Encounter - Rachel George - 07/16/2023 11:36 AM EDT Referral source: Brayden Murdock MD ([facility] [place]) Reason for visit: chronic migraine evaluation External records: Sent with referral Triage: Not required Financial clearance: Not required to schedule documented in this encounterOhio [facility]05-15-2024 Telephone encounter Note * Telephone Encounter - Tana Julien MA - 07/15/2023 11:40 AM EDT Last appointment: 07/09/23 Next appointment: 08/29/23 Pharmacy verified in [facility]. Refill(s) requested: Requested Prescriptions Pending Prescriptions Disp Refills nortriptyline (PAMELOR) 75 mg capsule 90 capsule 3 Sig: Take 1 capsule by mouth daily at bedtime. Order(s) pended. Please advise. Tana Julien MA, DRY CLEANER [facility]05-15-2024 Miscellaneous Notes* Telephone Encounter - Tana Julien MA - 07/15/2023 11:40 AM EDT Last appointment: 07/09/23 Next appointment: 08/29/23 Pharmacy verified in [facility]. Refill(s) requested: Requested Prescriptions Pending Prescriptions Disp Refills nortriptyline (PAMELOR) 75 mg capsule 90 capsule 3 Sig: Take 1 capsule by mouth daily at bedtime. Order(s) pended. Please advise. Tana Julien MA DRY CLEANER documented in this encounterOhio Valley Surgical Hospital05-14-2024 Telephone encounter Note * Telephone Encounter - Elisabeth Barber MA - 07/14/2023 3:39 PM EDT Luc, Just wanted to let you know your medication has been approved until the end of the year! Have a great day! [facility]05-14-2024 Miscellaneous Notes* Telephone Encounter - Elisabeth Barber MA - 07/14/2023 3:39 PM EDT Luc, Just wanted to let you know your medication has been approved until the end of the year! Have a great day! documented in this encounterOhio Valley Surgical Hospital05-14-2024 Telephone encounter Note * Telephone Encounter - Tana Julien MA - 07/14/2023 3:35 PM EDT Last appointment: 07/29/23 Next appointment: 08/29/23 Pharmacy verified in [facility]. Refill(s) requested: Requested Prescriptions Pending Prescriptions Disp Refills triamcinolone acetonide (KENALOG) 0.5 % cream 15 g 1 Sig: Apply to affected area three times a day. Order(s) pended. Please advise. Tana Julien MA, DRY CLEANER [facility]05-14-2024 Miscellaneous Notes* Telephone Encounter - Tana Julien MA - 07/14/2023 3:35 PM EDT Last appointment: 07/29/23 Next appointment: 08/29/23 Pharmacy verified in [facility]. Refill(s) requested: Requested Prescriptions Pending Prescriptions Disp Refills triamcinolone acetonide (KENALOG) 0.5 % cream 15 g 1 Sig: Apply to affected area three times a day. Order(s) pended. Please advise. Tana Julien MA, DRY CLEANER documented in this encounterOhio Valley Surgical Hospital05-14-2024 Telephone encounter Note * Telephone Encounter - Elisabeth Barber MA - 07/14/2023 2:51 PM EDT Prior auth was approved for the Fluticasone Prop HFA 110 MCG thru 03/01/2024. Scanned to [facility]. [facility]05-14-[facility] Miscellaneous Notes* Telephone Encounter - Elisabeth Barber MA - 07/14/2023 2:51 PM EDT Prior auth was approved for the Fluticasone Prop HFA 110 MCG thru 03/01/2024. Scanned to [facility]. * Telephone Encounter - Elisabeth Barber MA - 07/14/2023 9:02 AM EDT Pharmacy electronically requests the following refill(s) Requested Prescriptions Pending Prescriptions Disp Refills fluticasone (FLOVENT) 110 mcg/actuation inhaler 1 Each 11 Sig: Inhale 1 Puff as instructed two times a day. Shake well before use. Rinse mouth after use. Elisabeth Barber MA ERIS 03/24/[address] Grier follow up appt 07/22/2023 with Mouna Dillard. Please advise. documented in this encounterOhio Valley Surgical Hospital05-14-2024 Telephone encounter Note * Telephone Encounter - Elisabeth Barber MA - 07/14/2023 9:02 AM EDT Pharmacy electronically requests the following refill(s) Requested Prescriptions Pending Prescriptions Disp Refills fluticasone (FLOVENT) 110 mcg/actuation inhaler 1 Each 11 Sig: Inhale 1 Puff as instructed two times a day. Shake well before use. Rinse mouth after use. DANIEL Shea 03/24/[address] Grier follow up appt 07/22/2023 with Mouna Dillard. Please advise. [facility]05-13-20[facility] Telephone encounter Note* Telephone Encounter - Callie Taylor MA - 07/13/2023 3:45 PM EDT I called pt and left detailed message about UA ordered [facility]05-13-2024 Miscellaneous Notes* Telephone Encounter - Callie Taylor MA - 07/13/2023 3:45 PM EDT I called pt and left detailed message about UA ordered * Telephone Encounter - Сергей Espinoza MD - 07/13/2023 12:22 PM EDT Urine ordered Сергей Espinoza MD * Telephone Encounter - Sheba Mitchell RN - 07/13/2023 11:52 AM EDT Answer Assessment - Initial Assessment Questions Patient [...] Protocols used: Information Only Call - No [id number] documented in this encounterOhio Valley Surgical Hospital05-13-2024 Telephone encounter Note * Telephone Encounter - Сергей Espinoza MD - 07/13/2023 12:22 PM EDT Urine ordered Сергей Espinoza MD [facility]05-13-2024 Telephone encounter Note* Telephone Encounter - Sheba Mitchell RN - 07/13/2023 11:52 AM EDT Answer Assessment - Initial Assessment Questions Patient [...] Protocols used: Information Only Call - No [id number] [facility] Work Phone: [phone] Telephone encounter Note* Telephone Encounter - Cristina Jasso RN - 07/10/2023 2:14 PM EDT Spoke with pt, reviewed below message. Verbalized understanding, no further questions. [facility]05-10-2024 Miscellaneous Notes* Telephone Encounter - Cristina Jasso RN - 07/10/2023 2:14 PM EDT Spoke with pt, reviewed below message. Verbalized understanding, no further questions. * Telephone Encounter - Сергей Espinoza MD - 07/10/2023 1:08 PM EDT Please let patient know that his sodium [...] Thanks, Сергей Espinoza MD documented in this encounterOhio Valley Surgical Hospital05-10-2024 Telephone encounter Note * Telephone Encounter - Сергей Espinoza MD - 07/10/2023 1:08 PM EDT Please let patient know that his sodium [...] recheck her sodium. Thanks, Сергей Espinoza MD [facility]05-09-2024 History of Present illness Narrative* Сергей Espinoza MD - 07/09/2023 8:23 AM EDT ESTABLISHED PATIENT Merna Webster is a 83 year old female presenting for Detention Evaluation HISTORY OF PRESENT ILLNESS Patient is moving in to [facility]. Happy to be moving in with her as they have been apart for over 1 year. Going to pain medicine in [place]. Has arthritis in the right hip. Has had 3 shots in the hip. Thathas helped. Started 100mg gabapentin four times per [...] (FLONASE) 50 mcg/actuation nasal spray Use 1 [place] in each nostril once daily. betamethasone valerate [...] mg) by mouth as needed for migraine headache(see administration instructions). at onset of headache.May repeat after 2 hours. esomeprazole (NEXIUM) 40 mg capsule TAKE 1 CAPSULE BY MOUTH DAILY BEFORE BREAKFAST. CPAP/BIPAP/OTHER Type .CPAPSettings into a note to see current settings/supplies/DME information. erythromycin (ROMYCIN) 5 mg/gram (0.5 %) ophthalmic ointment daily at bedtime. nortriptyline (PAMELOR) 75 mg capsule TAKE 1 CAPSULE AT BEDTIME fexofenadine (JENNIFER) 180 mg tablet Take 180 mg by [...] No Drug use: No Сергей Espinoza MD * Callie Taylor MA - 07/09/2023 8:06 AM EDT RSV Vaccine(1 - 1-dose 60+ series) Never done Bone Density Screening due on 09/05/2007 Advance Directive Discussion due on 03/02/2023 Covid-19 Vaccine( season) due on 03/16/2023 documented in this encounterOhio Valley Surgical Hospital05-09-2024 Instructions* Patient Instructions* Callie Taylor MA - 07/09/2023 8:07 AM EDT [facility] LAB TEST INFORMATION [facility] LAB HOURS: Lab is open: 7:30am to 5:00pm M - Th, 7:30am to 4:00pm onFri and 8am -12pm on Sat. The lab is located in [facility] on the first floor. There is a registration window at the lab, available 7 am to 3 pm Thursday - Thursday. If registration is unavailable at the lab, you may register at the patient registration office near the front lobby of the hospital. SCHEDULING A LAB APPOINTMENT: Laboratory appointments are recommended.Walk ins are still accepted. Call [phone] or schedule via ebridge scheduling ticket. ROUTINE LAB ORDERS 60 days after they are entered. If your lab orders , you may be required to wait in the lab while they are reinstated FUTURE ORDERS are lab tests to be completed on the EXPECTED date. These orders 60 days afterthe expected date. STANDING ORDERS are recurring orders with an expiration date. The interval will indicate how often the test should be completed. CT / MRI / IVP If you have lab tests ordered for one of these radiology exams, please complete the blood work at least one day prior to the scheduled exam. PRESCRIPTION REFILL REQUESTS Request prescription refills through your iDreamBookst account or contact your Pharmacy. My Chart Schedule My Appointment enables you to view your established primary care provider's open schedule and book an appointment online in real-time. This feature is available in internal medicine, family medicine, or pediatrics at any of our [facility] locations and main campus. documented in this encounterOhio Valley Surgical Hospital04-30-2024 Instructions* Patient Instructions* Mouna Ochoa APRN.CNP - 06/30/2023 3:29 PM EDT Your [...] note with Dr. Espinoza documented in this encounterOhio Valley Surgical Hospital04-30-2024 History of Present illness Narrative* Mouna Ochoa APRN.CNP - 06/30/2023 3:07 PM EDT Images from the original note were not included. [facility] [place] Shadia Newman Department of Cardiovascular Medicine SECTION [...] minimum of 51 bpm, predominantly in sinus rhythm.12 runs of SVT up to 7.6 seconds, [...] which included preparing to see the patient, conq-bl-ucol patient care, completing clinical documentation, performing a medically appropriate examination, counseling and educating the patient/family/caregiver, ordering medications, tests, or p rocedures, communicating with other HCPs (not separately reported), and communicating results to the patient/family/caregiver. Thank you very much for allowing me to assist in the care of Merna Webster. The above information was discussed at length and detail with the patient who verbalized an understanding of the plan and was given ample opportunity to ask questions. The appropriate follow up has been arranged. I park ve advised the patient to contact me if any questions/problems arise prior to the follow up. Mouna Ochoa APRN.[facility] Cardiology Nurse Practitioner Section of Regional Cardiology [place] Dept of Cardiovascular Medicine [facility] [place] [address] [place] [address] Office Office June 30, 2023 3:07 PM This note was partially generated using Syncano voice recognition system and may contain errors [...] CHANGE WAS FOUND Confirmed by MD SAMANTHA, DARRIAN ([id number]) on 12/08/2022 4:24:[address] Result Conclusion CT CHEST WO IVCON Exam End: 07/09/2022 4:25 PM (Final result) Impression: IMPRESSION: 1. 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 No significant interval change 2. No definite nodules are seen on this study 3. Findings are again compatible with Pulmonary arterial hypertension French Instructor: ROBERTS CHAPELB Transcribe Date/Time: Jul 16 2022 1:20P Dictated [...] bruits, carotids have a normal upstroke, no palpablethyromegaly. Lungs: No wheezes, course lung sounds. Heart: [...] PFSH and ROS obtained by others. Mouna Ochoa APRN.BULLET CASTING OPERATOR CURRENT MEDICATIONS: Current Outpatient Medications Medication [...] (FLONASE) 50 mcg/actuation nasal spray Use 1 [place] in each nostril once daily. betamethasone valerate [...] mg) by mouth as needed for migraine headache(see administration instructions). at onset of headache.May repeat [...] instructed every 4 hours as needed. fexofenadine (JENNIFER) 180 mg tablet Take 180 mg by [...] mL INTRAVENOUS DIRECTED PRN documented in this encounterOhio Valley Surgical Hospital04-29-2024 Telephone encounter Note * Telephone Encounter - Martina Henry - 06/29/2023 4:19 PM EDT Patient is scheduled [facility]04-29-2024 Miscellaneous Notes* Telephone Encounter - Martina Henry - 06/29/2023 4:19 PM EDT Patient is scheduled * Telephone Encounter - Tomasa Ramirez APRN.CNP - 06/29/2023 4:06 PM EDT Called and spoke with patient. Omnicef had made her nauseous. Will send zpak and prednisone burst for possible asthma vs ILD flare. Continue arnuity. I informed her she did not have appointment with provider the day of her PFTs 07/21. Please arrange for appointment with Mouna Stephen, or myself if able either that day or sometime after breathing tests. Tomasa Vu APRN.CNP * Telephone Encounter - Lorene Jauregui LPN - 06/29/2023 3:20 PM EDT Patient does not have an appointment with a provider on 07/21 - appt is just for pfts. documented in this encounterOhio Valley Surgical Hospital04-29-2024 Telephone encounter Note * Telephone Encounter - Tomasa Ramirez APRN.CNP - 06/29/2023 4:06 PM EDT Called and spoke with patient. Omnicef had made her nauseous. Will send zpak and prednisone burst for possible asthma vs ILD flare. Continue arnuity. I informed her she did not have appointment with provider the day of her PFTs 07/21. Please arrange for appointment with Mouna Stephen, or myself if able either that day or sometime after breathing tests. Thanks, Cordt Skraba, SEMICONDUCTOR PACKAGES LEAK TESTER.BULLET CASTING OPERATOR [facility]04-29-2024 Telephone encounter Note* Telephone Encounter - Lorene Jauregui LPN - 06/29/2023 3:20 PM EDT Patient does not have an appointment with a provider on 07/21 - appt is just for pfts. [facility]04-24-2024 Telephone encounter Note* Telephone Encounter - Maritza Jorgensen LPN - 06/24/2023 8:42 AM EDT Pharmacy verified in Epic Patient has been identified by name and date of : Yes Patient aware RX will be sent to pharmacy. No need to notify patient. Pharmacy phones for refill(s): Requested Prescriptions Pending Prescriptions Disp Refills pravastatin (PRAVACHOL) 40 mg tablet [Pharmacy Med Name: PRAVASTATIN SODIUM 40 MG Tablet] 90 tablet3 Sig: take 1 tablet at bedtime Date [...] 11/03/2019 100 Please advise. Maritza Jorgensen LPN [facility]04-24-2024 Miscellaneous Notes* Telephone Encounter - Maritza Jorgensen LPN - 06/24/2023 8:42 AM EDT Pharmacy verified in Epic Patient has been identified by name and date of : Yes Patient aware RX will be sent to pharmacy. No need to notify patient. Pharmacy phones for refill(s): Requested Prescriptions Pending Prescriptions Disp Refills pravastatin (PRAVACHOL) 40 mg tablet [Pharmacy Med Name: PRAVASTATIN SODIUM 40 MG Tablet] 90 tablet3 Sig: take 1 tablet at bedtime Date [...] advise. Maritza Jorgensen LPN documented in this encounterOhio Valley Surgical Hospital04-22-2024 Telephone encounter Note * Telephone Encounter - Elisabeth Barber MA - 06/22/2023 9:51 AM EDT Forms faxed back to [facility]. Transmission with forms in drawer. [facility]04-22-2024 Miscellaneous Notes* Telephone Encounter - Elisabeth Barber MA - 06/22/2023 9:51 AM EDT Forms faxed back to [facility]. Transmission with forms in drawer. * Telephone Encounter - Elisabeth Barber MA - 06/19/2023 10:23 AM EDT Orders from [facility] for A7039, A7034, A7038, A7036, A7037, A7046, A9279, E0562, E0601 A7035, A7032 all for c-pap supplies placed in Dr. Grier's in basket. documented in this encounterOhio Valley Surgical Hospital04-19-2024 Miscellaneous Notes* Telephone Encounter - Callie Taylor MA - 06/19/2023 11:19 AM EDT Order at front end ui developer, pt advised * Telephone Encounter - Сергей Espinoza MD - 06/19/2023 10:07 AM EDT Order in outbox Сергей Espinoza MD documented in this encounterOhio Valley Surgical Hospital04-19-2024 Telephone encounter Note * Telephone Encounter - Elisabeth Barber MA - 06/19/2023 10:23 AM EDT Orders from [facility] for A7039, A7034, A7038, A7036, A7037, A7046, A9279, E0562, E0601 A7035, A7032 all for c-pap supplies placed in Dr. Grier's in basket. [facility]04-12-2024 Miscellaneous Notes* Telephone Encounter - Сергей Espinoza MD - 06/12/2023 6:07 AM EDT PDMP website checked and validated. All prescriptions have been APPROPRIATELY filled. No suspiciousactivity was identified. 06/12/2023 by Сергей Espinoza MD * Telephone Encounter - Maritza Jorgensen LPN - 06/11/2023 8:15 AM EDT Pharmacy verified in [facility] Patient has been identified by name [...] advise. Maritza Jorgensen LPN documented in this encounterOhio Valley Surgical Hospital04-11-2024 Miscellaneous Notes* Telephone Encounter - Stacey Shaffer MA - 06/11/2023 3:03 PM EDT Last appointment: 05/25/23 Next appointment: 08/29/23 Pharmacy verified in [facility]. Refill(s) requested: Requested Prescriptions Pending Prescriptions Disp Refills ALPRAZolam (XANAX) 1 mg tablet 90 tablet 0 Sig: Take 1 tablet by mouth three times a day as needed for sedation or anxiety for up to 30 days. Order(s) pended. Please advise. Stacey Shaffer MA, DRY CLEANER documented in this [facility]03-24-2024 Miscellaneous Notes* Telephone Encounter - Ca Plummer RN - 05/24/2023 8:00 PM EDT Reason for Call: Pt c/o slight burning [...] : na. Protocols used: Urination Pain - [id number] documented in this [facility]03-13-2024 Miscellaneous Notes* Telephone Encounter - Tana Julien MA - 05/13/2023 3:26 PM EDT Last appointment: 02/27/23 Next appointment: 05/22/23 Pharmacy verified in [facility]. Refill(s) requested: Requested Prescriptions Pending Prescriptions Disp Refills ALPRAZolam (XANAX) 1 mg tablet 90 tablet 0 Sig: Take 1 tablet by mouth three times a day as needed for sedation or anxiety for up to 30 days. Order(s) pended. Please advise. Tana Julien MA, DRY CLEANER documented in this [facility]03-12-2024 Miscellaneous Notes* Telephone Encounter - Ashley Cain Ma - 05/12/2023 5:07 PM EDT pended * Telephone Encounter - Aide Hilton APRN.TREVA - 05/08/2023 11:47 AM EST See patient comment and please pend needed meds. * Telephone Encounter - Destiny Asencio LPN - 05/08/2023 11:12 AM EST Last appointment: 01/19/23 Next appointment: 05/22/23 Pharmacy verified in [facility]. Refill(s) requested: Requested Prescriptions Pending Prescriptions Disp Refills triamcinolone acetonide (KENALOG) 0.5 % cream 15 g 1 Sig: Apply to affected area three times a day. fluticasone furoate (ARNUITY ELLIPTA) 100 mcg/actuation inhaler 3 Each 4 Sig: Inhale 1 Puff as instructed once daily. Order(s) pended. Please advise. Destiny Asencio LPN, [facility] documented in this encounterOhio Valley Surgical Hospital03-11-2024 Miscellaneous Notes* Telephone Encounter - Elisabeth Barber MA - 05/11/2023 11:32 AM EDT Patient requests via MyChart refills as follows: Requested Prescriptions Pending Prescriptions Disp Refills fluticasone (FLOVENT) 110 mcg/actuation inhaler 1 Each 11 Sig: Inhale 1 Puff as instructed two times a day. Shake well before use. Rinse mouth after use. Please review and advise. DANIEL Shea-03/24/[address] Grier pt has PULM testing on 07/22/2023 but no appt with a provider. documented in this encounterOhio Valley Surgical Hospital03-04-2024 Miscellaneous Notes* Telephone Encounter - Callie Taylor MA - 05/04/2023 1:07 PM EST See other encounter documented in this encounterOhio Valley Surgical Hospital03-04-2024 Miscellaneous Notes* Telephone Encounter - Negrita Becerril - 05/04/2023 12:49 PM EST Spoke with patient. Patient stated they are already seeing a pain management doctor [facility]. Dr. Butler. Patient declined scheduling. Thanks Negrita Becerril * Telephone Encounter - Callie Taylor MA - 05/04/2023 11:56 AM EST PSS: Please call pt and assist in scheduling for pain management. documented in this encounterOhio Valley Surgical Hospital03-04-2024 Miscellaneous Notes* Telephone Encounter - Navya Burr MA - 05/04/2023 10:58 AM EST Pharmacy verified in [facility]. Patient has been identified by name and [...] advise. Navya Burr MA documented in this encounterOhio Valley Surgical Hospital03-01-2024 Miscellaneous Notes* Telephone Encounter - Sabine Goyal RN - 05/01/2023 1:16 PM EST Addressed in triage encounter. Sabine Goyal RN * Telephone Encounter - Brinda Dominguez APRN.CNP - 05/01/2023 1:00 PM EST Please triage. Horace, Brinda Dominguez APRN.BULLET CASTING OPERATOR documented in this encounterOhio Valley Surgical Hospital03-01-2024 Miscellaneous Notes* Telephone Encounter - Sabine Goyal RN - 05/01/2023 1:[address] Lucina blackwood forgot to tell the nurse about [...] last menstrual period?" Protocols used: Wound Infection [id number] documented in this encounterOhio Valley Surgical Hospital02-28-2024 Miscellaneous Notes* Telephone Encounter - Brinda Dominguez APRN.CNP - 04/29/2023 7:34 PM EST Noted/agree. Brinda Dominguez APRN.TREVA * Telephone Encounter - Cristina Jasso RN - 04/29/2023 6:06 PM EST Called and spoke to pt. Runny nose started a couple days ago. Mild cough. Mild intermittent wheezing started this morning. Using inhalers, Jennifer, and Flonase with some improvement. Discussed likely [...] Has also been seeing pain management in [place]- got injection in hip and groin which helped a lot.Taking gabapentin 100mg PRN. Will discuss at appt Thursday Pt reports being lonely but is doing well, has good control of blood sugars and lost weight. * Telephone Encounter - Stacey Shaffer - 04/29/2023 5:45 PM EST Please triage. documented in this encounterOhio Valley Surgical Hospital02-22-2024 NoteHNO ID: [id number] Author: IGOR JOHNSON, DO Service: ? Author Type: Physician Type: Progress Notes Filed: 04/24/2023 09:54 Note Text: [facility] SECTION [facility] CARDIOLOGY [facility] OUTPATIENT VISIT DATE April 23, 2023 PRIMARY CARE PHYSICIAN: [place] [address] HISTORY OF PRESENT ILLNESS: Ms. Webster is [...] currently alone as her resides in a skilled nursing due to challenges with him having inability [...] Negative for immunocompromised state. (more content not included)...[id number] Nurse Note* Hayes Rubio LPN - 04/23/2023 4:48 PM EST EVENT MONITOR DISPOSABLE PATCH INSTRUCTIONS Patient Name: Merna Webster [facility] Number: [id number] Skin prepped and cleansed with alcohol Patch secured to prepped area Monitor Activated Serial #: [id number] Patient Instructed: Prescribed order timeframe Bathing guidelines Usage of event button and diary documentation Return of monitor at the end of prescribed order Call with problems [phone] or [phone]. [phone] Patient expresses a good understanding of instructions Hayes Rubio LPN documented in this encounterOhio Valley Surgical Hospital02-22-2024 History of Present illness Narrative* Igor Johnson DO - 04/23/2023 3:03 PM EST Images from the original note were not included. [facility] SE[facility] OUTPATIENT VISIT DATE April 23, 2023 PRIMARY CARE PHYSICIAN: Сергей Espinoza [address] [place] [address] HISTORY OF PRESENT ILLNESS: Ms. Webster is [...] lung disease. She denies chest discomfort, orthopnea, paroxysmalnocturnal dyspnea, near-syncope or syncope. She has palpitations occurring for several minutes up to 3-4 times per week and anxiety problems situations, episodes of loneliness/depression and extremesof exertion. There were no other associated symptoms other than her dyspnea at times. The patient is over 61 years but lives currently alone as her resides in a skilled nursing due to challenges with him having inability to walk. She has never smoked nor drank. 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 She is retired. Her niece [...] in a couple months time to review thoseresults as they become available. Once again we have made no additions or changes but did offer reas surance. We did discuss various techniques to help [...] mg) by mouth as needed for migraine headache(see administration instructions). at onset of headache.May repeat after 2 hours.^Disp: 9 tablet^Rfl: 1 esomeprazole (NEXIUM) 40 mg capsule^TAKE 1 CAPSULE BY MOUTH DAILY BEFORE BREAKFAST.^Disp: 90 capsule^Rfl: 4 CPAP/BIPAP/OTHER^Type .CPAPSettings into a note to see current settings/supplies/DME information.^Disp: 1 Each^Rfl: 0 fluticasone propionate (FLONASE NASAL)^Use in the nose as needed (Pt uses 1 spray each nostril oncea day as needed.).^Disp: ^Rfl: erythromycin (ROMYCIN) 5 [...] hours as needed.^Disp: 18 g^Rfl: 11 fexofenadine (JENNIFER) 180 mg tablet^Take 180 mg by mouth [...] fluticasone (FLONASE) 50 mcg/actuation nasal spray^Use 1 [place] in each nostril two times a day.^Disp: [...] JENNY^Disp: 1 Device^Rfl: 0 Igor Johnson DO, [facility], [facility] Production Control Coordinator, [facility] Ambulatory Cardiology Production Control Coordinator, [facility] Cardiac Rehabilitation Production Control Coordinator, [facility] Production Control Coordinator, [facility] Production Control Coordinator, [facility] Ambulatory Cardiology Clinical Direct Marketing Intern Profressor of Medicine, [facility] of Medicine - [facility] Staff Spindle Carver, Shadia Lyle Department of Cardiovascular Medicine/Heart and Vascular [place], [facility] Please note: This note has been produced using speech recognition software and may contain errors related to that system including kim, punctuation, spelling, words, gender and phrases that may be inappropriate. documented in this encounterOhio Valley Surgical Hospital02-22-2024 Miscellaneous Notes* Telephone Encounter - Tana Julien MA - 04/23/2023 1:58 PM EST Last appointment: 12/29/23 Next appointment: 05/04/23 Pharmacy verified in [employer]. Refill(s) requested: Requested Prescriptions Pending Prescriptions Disp Refills betamethasone valerate 0.1 % ointment 15 g 1 Sig: Apply to affected area two times a day. Order(s) pended. Please advise. Tana Julien MA, [facility] documented in this encounterOhio Valley Surgical Hospital02-15-2024 Miscellaneous Notes* Telephone Encounter - Nanci Ledezma RN - 04/16/2023 7:00 PM EST Pt left on RN line stating she [...] / day more than normal) Protocols used: [id number] documented in this encounterOhio Valley Surgical Hospital02-13-2024 Miscellaneous Notes* Telephone Encounter - Brinda Dominguez APRN.CNP - 04/14/2023 4:42 PM EST [facility] website checked and validated. All prescriptions have been APPROPRIATELY filled. No suspiciousactivity was identified. 04/14/2023 by Brinda Dominguez APRN.CNP * Telephone Encounter - Tana Julien MA - 04/14/2023 4:21 PM EST Last appointment: 02/27/23 Next appointment: 05/04/23 Pharmacy verified in [facility]. Refill(s) requested: Requested Prescriptions Pending Prescriptions Disp Refills ALPRAZolam (XANAX) 1 mg tablet 90 tablet 0 Sig: Take 1 tablet by mouth three times a day as needed for sedation or anxiety for up to 30 days. Order(s) pended. Please advise. Tana Julien MA [employer] CLEAN[employer] documented in this encounterOhio Valley Surgical Hospital01-30-2024 Miscellaneous Notes* Telephone Encounter - Elisabeth Barber MA - 03/31/2023 9:50 AM EST I had a online chat session with Dona from [employer]. She states they don't show any Compliance report on Merna. The reason may be her machine does not transmit electronically and don't have a the [employer] card on the patient to download the information. Just an FYI. documented in this encounterOhio Valley Surgical Hospital12-15-2023 Miscellaneous Notes* Telephone Encounter - Brinda Dominguez APRN.CNP - 02/13/2023 4:41 PM EST PDMP website checked and validated. All prescriptions have been APPROPRIATELY filled. No suspiciousactivity was identified. 02/13/2023 by Brinda Dominguez APRN.CNP * Telephone Encounter - Tana Julien MA - 02/13/2023 8:16 AM EST Last appointment: 01/19/23 Next appointment: 05/04/23 Pharmacy verified in [facility]. Refill(s) requested: Requested Prescriptions Pending Prescriptions Disp Refills ALPRAZolam (XANAX) 1 mg tablet 90 tablet 0 Sig: Take 1 tablet by mouth three times a day as needed for sedation or anxiety for up to 30 days. Order(s) pended. Please advise. Tana Julien MA, [employer] documented in this encounterOhio Valley Surgical Hospital12-08-2023 Miscellaneous Notes* Telephone Encounter - Lauren Garcia LPN - 02/06/2023 1:31 PM EST Last appointment: 01/19/23 Next appointment: 05/04/23 Pharmacy verified in [facility]. Refill(s) requested: Requested Prescriptions Pending Prescriptions Disp Refills SUMAtriptan (IMITREX) 100 mg tablet 9 tablet 1 Sig: Take 1 tablet (100 mg) by mouth as needed for migraine headache (see administration instructions). at onset of headache.May repeat after 2 hours. Order(s) pended. Please advise. Lauren Garcia LPN, CMA documented in this encounterOhio Valley Surgical Hospital12-03-2023 Miscellaneous Notes* Telephone Encounter - Vidya Mayes RN - 02/01/2023 12:10 PM EST Reason for Call: Patient calling with request for covid questions. Patient denies any new or worsening symptoms of which a provider is not aware: Yes. documented in this encounterOhio Valley Surgical Hospital11-20-2023 History of Present illness Narrative* Сергей Espinoza MD - 01/19/2023 6:51 PM EST ESTABLISHED PATIENT Merna Webster is a 82 [...] needed (Pt uses 1 spray each nostril oncea day as needed.).^Disp: ^Rfl: escitalopram oxalate (LEXAPRO) [...] hours as needed.^Disp: 18 g^Rfl: 11 fexofenadine (JENNIFER) 180 mg tablet^Take 180 mg by mouth [...] rubs. Extremities: No edema. Сергей Espinoza MD * Callie Taylor - 01/19/2023 6:35 PM EST RSV Vaccine(1 - 1-dose 60+ series) Never done Covid-19 Vaccine(2022- season) due on 10/31/2022 documented in this encounterOhio Valley Surgical Hospital11-20-2023 Instructions* Patient Instructions* Callie Taylor - 01/19/2023 6:35 PM EST [facility] BUILD[facility] LAB TEST INFORMATION [facility] BUILD[facility] LAB HOURS: Lab is open: 7:30am to 5:00pm M - Th, 7:30am to 4:00pm onFri and 8am -12pm on Sat. The lab is located in [facility] on the first floor. There is a registration window at the lab, available 7 am to 3 pm Thursday - Thursday. If registration is unavailable at the lab, you may register at the patient registration office near the front [facility]. SCHEDULING A LAB APPOINTMENT: Laboratory appointments are recommended.Walk ins are still accepted. Call [phone] or schedule via ebridge scheduling ticket. ROUTINE LAB ORDERS 60 days after they are entered. If your lab orders , you may be required to wait in the lab while they are reinstated FUTURE ORDERS are lab tests to be completed on the EXPECTED date. These orders 60 days afterthe expected date. STANDING ORDERS are recurring orders with an expiration date. The interval will indicate how often the test should be completed. CT / MRI / IVP If you have lab tests ordered for one of these radiology exams, please complete the blood work at least one day prior to the scheduled exam. PRESCRIPTION REFILL REQUESTS Request prescription refills through your ebridge account or contact your Pharmacy. My Chart Schedule My Appointment enables you to view your established primary care provider's open schedule and book an appointment online in real-time. This feature is available in internal medicine, family medicine, or pediatrics at any of our [facility] locations and main campus. documented in this encounterOhio Valley Surgical Hospital11-07-2023 Miscellaneous Notes* Telephone Encounter - Sona Zacarias - 01/06/2023 3:09 PM EST Spoke with patient, said she doesn't need to reschedule now. * Telephone Encounter - Kenyon Zuniga APRN.CNP - 01/06/2023 2:40 PM EST Please my chart, assist patient with rescheduling * Telephone Encounter - Sona Zacarias - 01/05/2023 4:24 PM EST Patient is scheduled * Telephone Encounter - Сергей Espinoza MD - 01/05/2023 1:07 PM EST Please help patient get an appt Сергей Espinoza MD documented in this [facility]10-31-2023 Miscellaneous Notes* Telephone Encounter - Elisabeth Barber MA - 12/30/2022 4:21 PM EDT We received a fax stating 2022 [employer] Formulary has changed for Flovent Alternative Drug is [employer]. Form to be scanned in chart tomorrow and placed in drawer. FYI. documented in this [facility]10-19-2023 Miscellaneous Notes* Telephone Encounter - Brinda Dominguez APRN.CNP - 12/18/2022 11:37 AM EDT [facility] and validated. All prescriptions have been APPROPRIATELY filled. No suspiciousactivity was identified. 12/18/2022 by Brinda Dominguez APRN.TREVA * Telephone Encounter - Cha Wynn OCCA - 12/18/2022 11:34 AM EDT Last appointment: 11/12/22 Next appointment: 01/19/23 Pharmacy verified in [employer]. Refill(s) requested: Requested Prescriptions Pending Prescriptions Disp Refills ALPRAZolam (XANAX) 1 mg tablet 90 tablet 0 Sig: Take 1 tablet by mouth three times a day as needed for sedation or anxiety for up to 30 days. Order(s) pended. Please advise, thank you. Cha TAYLOR December 18, 2022 11:34 AM documented in this [facility]10-18-2023 Miscellaneous Notes* Telephone Encounter - Jessica Romano LPN - 12/17/2022 2:38 PM EDT Form was completed, form, Last oV note, and sleep studies from 2015 were faxed to [facility] at . Fax Confirmation was received and forms were placed in the fax drawer. * Telephone Encounter - Lorene Jauregui LPN - 12/16/2022 4:11 PM EDT Fax received from [facility] - form for cpap order. Form placed on dr grier's desk for review/signature. documented in this [facility]10-18-2023 Miscellaneous Notes* Telephone Encounter - Lorene Jauregui LPN - 12/17/2022 8:07 AM EDT There are MANY other phone encounters regarding this. Order and supporting documents have been sentto [facility] several times, have spoken with [employer] several times regarding this as well as with the patient many times. As documented in previous phone encounter, yesterday afternoon we received a faxed form for the cpap settings - this was placed in dr grier's inbox to await completion. * Telephone Encounter - Rekha Fink RN - 12/16/2022 5:20 PM EDT Hi my name is Joanne I'm calling with [facility] in regards to Isis Webster. Date of is two 12:19 42. I am calling in regards to a CPAP she is needing a new one and I don't have an order yet but I know we had talked to somebody this morning. I was just trying to get an updateon if in order will come to us or if we need to send an order request. Our phone number is . Thank you and have a good day." * Telephone Encounter - Rekha Fink RN - 12/16/2022 2:28 PM EDT Patient needs a new script for CPAP sent to her durable medical supplier. documented in this encounterOhio Valley Surgical Hospital10-17-2023 Miscellaneous Notes* Telephone Encounter - Rekha Fink RN - 12/16/2022 2:28 PM EDT Opened i documented in this encounterOhio Valley Surgical Hospital10-09-2023 Miscellaneous Notes* Telephone Encounter - Lorene Jauregui LPN - 12/08/2022 10:00 AM EDT Called and spoke with 2 different reps at [facility] - they both confirm they did receive cpap order on11/17/22 however they only sent cpap supplies to the patient even though the order was for a cpap device itself. Neither rep I spoke with knows why this was done. They both state they do not typicallyhandle cpaps. I was transferred x2 to a number that just rings with no answer. Called back and [facility] rep states she does not know why no one is answering the phone. She suggests patient go to the [facility] office directly - I did let rep know that it appears their office is an hour drive away for patient, this is not an acceptable option. States she will send an email to the person who handles cpap orders to try to find out why this was not sent to patient. documented in this encounterOhio Valley Surgical Hospital09-29-2023 Miscellaneous Notes* Telephone Encounter - Sona Grier MD - 11/28/2022 2:53 PM EDT Done. I will nd her a message. thanks * Telephone Encounter - Jessica Romano LPN - 11/28/2022 1:05 PM EDT Medication was set up and preferred pharmacy was selected. Please advise. * Telephone Encounter - Martina Henry - 11/28/2022 11:44 AM EDT Patient was in office today and is asking if azythromycin and prednisone [facility] be [facility] [place] [facility] of [facility]? She also states she takes medicine for her migraines and is asking if that medication is safe to take with the azythromycin and prednisone? Please advise, patient states to just send her a message onmychart letting her know. documented in this encounterOhio Valley Surgical Hospital09-29-2023 NoteHNO ID: [id number] Author: Lucia Han RT (R) Service: Radiology Author Type: Fine Grader Type: Progress Notes Filed: 11/28/2022 12:12 PM [...] PERIPHERAL IV DATA: Not applicable SIGNED BY: GLENN Lew) November 28, 2022 12:11 PMKettering Health [facility] [id number] History of Present illness Narrative* Lucia Han RT(R) - 11/28/2022 12:45 PM EDT Radiology Service Progress Note PATIENT NAME: Merna Webster DATE OF SERVICE: November 28, 2022 TIME: 12:11 PM PATIENT IDENTITY VERIFICATION COMPLETED USING TWO (2) IDENTIFIERS: Name and Date of confirmedby patient verbally. FALL SCREENING: Has the patient had 2 falls in the last year or 1 fall with injury or currently using an Ambulatory Assistive Device (Walker, Cane, Wheelchair, Crutches, etc.)? No PATIENT GENDER DATA: Female. status: : No status: NO. PATIENT RELEVANT IMPLANT DATA REVIEWED: Not Applicable RADIOLOGY DEPARTMENT: General X-ray: Exam(s) Completed: Chest X-Ray PERIPHERAL IV DATA: Not applicable SIGNED BY: GLENN Lew) November 28, 2022 12:11 PM documented in this encounterOhio Valley Surgical Hospital09-29-2023 History of Present illness Narrative* Sona Grier MD - 11/28/2022 10:29 AM EDT Images from the original note were not included. [facility] DEPART[facility] OF PULMONARY MEDICINE ESTABLISHED PATIENT OFFICE VISIT 11/28/2022 Patient Name: Merna Webster PRIMARY CARE PHYSICIAN: Сергей Espinoza MD CHIEF COMPLAINT: asthma-IPF f/up HISTORY OF PRESENT ILLNESS: Since the last visit with me on 09/2021, Ms. Webster has been havingworsening SOB and O2 sat for the last [...] and during nighttime Living by herself- at skilled nursing Nephew accompanying her today- discussed other possibilities like assisted living vs NH or visitingnurse Most recent CT scan chest 06/2022 stable [...] hours as needed.^Disp: 18 g^Rfl: 11 fexofenadine (JENNIFER) 180 mg tablet^Take 180 mg by mouth [...] seen on this study 3. Findings are againcompatible with Pulmonary arterial hypertension French Instructor: YURIDIA Transcribe Date/Time: 17190404 1:20P Dictated by : FLORIN ROSSI DO This examination was interpreted and the report reviewedand electronically signed by: FLORIN ROSSI DO on [...] J30.9 - Well controlled on Flonase and Jennifer 7. Post Covid syndrome [facility] discussed Referral to functional medicine discussed improving 8. H/o covid infection November 2020 Did not require hsopitalization check echocardiogram 9. Palpitataions Ecg today Referral to cardiology Sona Grier MD, CH[facility] Staff, Respiratory [place] [facility] documented in this encounterOhio Valley Surgical Hospital09-20-2023 Miscellaneous Notes* Telephone Encounter - Brinda Dominguez APRN.CNP - 11/19/2022 3:10 PM EDT PDMP website checked and validated. All prescriptions have been APPROPRIATELY filled. No suspiciousactivity was identified. 11/19/2022 by Brinda Dominguez APRN.BULLET CASTING OPERATOR * Telephone Encounter - Cha Wynn OCCA - 11/19/2022 2:27 PM EDT Last appointment: 11/12/22 Next appointment: 12/24/22 Pharmacy verified in [employer]. Refill(s) requested: Requested Prescriptions Pending Prescriptions Disp Refills ALPRAZolam (XANAX) 1 mg tablet 90 tablet 0 Sig: Take 1 tablet by mouth three times daily as needed for sedation or anxiety for up to 30 days. Order(s) pended. Please advise,thank you. Cha TAYLOR November 19, 2022 2:27 PM documented in this encounterOhio Valley Surgical Hospital09-19-2023 Miscellaneous Notes* Telephone Encounter - Darling Samuels RN - 11/18/2022 6:36 PM EDT Reason: Patient calling with request for health [...] Patient notes that her recently went to skilled nursing and that she is anxious as she [...] have any questions, you can call Nurse workers compensation claims assistant back. documented in this encounterOhio Valley Surgical Hospital09-18-2023 Miscellaneous Notes* Telephone Encounter - Elisabeth Barber MA - 11/17/2022 4:19 PM EDT . documented in this [facility]09-18-2023 Miscellaneous Notes* Telephone Encounter - Elisabeth Barber MA - 11/17/2022 4:18 PM EDT 17 pages sent over to [employer] at fax # [phone] * Telephone Encounter - Sona Grier MD - 11/17/2022 3:51 PM EDT Please send CPAP supply orders to her [employer] company Thank you documented in this [facility]09-18-2023 Miscellaneous Notes* Addendum Note - Kenyon Zuniga APRN.TREVA - 11/17/2022 4:17 PM EDTAddended by: KENYON ZUNIGA on: 11/17/2022 04:17 PM Modules accepted: Orders documented in this encounterOhio Valley Surgical Hospital09-12-2023 Miscellaneous Notes* Telephone Encounter - Cristina Jasso - 11/11/2022 7:01 PM EDT Images from the original note were not included. Merna Webster "Merna Webster" P [facility] (supporting Сергей Espinoza MD) Yesterday [...] can l do l am miserable. Merna Mona Called pt regarding MyChart message. Thursday night BP was 152/102. Last evening BP also was elevated, Merna was worried about some news received from the skilled nursing that Zach was exposed to Covid, so [...] >= 100 Protocols used: Blood Pressure - Snle-FQMNH-UF documented in this encounterOhio Valley Surgical Hospital09-11-2023 Miscellaneous Notes* Telephone Encounter - Lorene Jauregui LPN - 11/10/2022 12:24 PM EDT Completed forms received from dr grier and faxed back to [facility]. Transmission successful, paperwork in fax drawer. * Telephone Encounter - Lorene Jauregui LPN - 11/10/2022 10:36 AM EDT Fax received from [facility] - form for oxygen order [id number], [id number], [id number], [id number]. Form placed on dr grier's desk for review/signature. documented in this encounterOhio Valley Surgical Hospital09-06-2023 Miscellaneous Notes* Telephone Encounter - Martina Henry - 11/05/2022 1:18 PM EDT Second attempt at contacting patient, left VM to schedule sooner with an BOTTLING SUPERVISOR if she would like * Telephone Encounter - Barbara Lemon - 11/04/2022 2:08 PM EDT First attempt: left message for patient to call back and schedule appointment documented in this encounterOhio Valley Surgical Hospital08-31-2023 Miscellaneous Notes* Telephone Encounter - Jessica Romano LPN - 10/30/2022 10:09 AM EDT Reply to Pt has been sent. documented in this encounterOhio Valley Surgical Hospital08-25-2023 NoteHNO ID: [id number] Author: Mouna Kenney Tech Service: Radiology Author Type: Fine Grader Type: Progress Notes Filed: 10/24/2022 2:46 PM [...] BY: Octavio Dale October 24, 2022 2:45 PMKettering Health Main [id number] History of Present illness Narrative* Al Woods PA-C - 10/24/2022 3:56 PM EDTAssociated Order(s): Large Joint Arthro/Inj: R knee joint Images from the original note were not included. SERVICE DATE: October 24, 2022 PCP: Сергей Espinoza MD Patient was self-referred. Large Joint Arthro/Inj: R knee joint Informed Consent Consent Obtained: Verbal [place] Protocol A moment to CARE was completed. [...] - New, Knee Pain PAIN EVALUATION 10/24/2022 3699 Pain Level: -- 6-8/10-Bilat Knee, right shoulder 10/10 Pain Location: -- bilat Knee, Right shoulder Description: Aching;Sharp Duration Amount of Time: -- ongoing Frequency: Intermittent Intervention/Comfort measure: Relaxation;Reposition;Medication;Cold gabapentin, voltaren gel Merna comes today c/o [...] hours as needed.^Disp: 18 g^Rfl: 11 fexofenadine (JENNIFER) 180 mg tablet^Take 180 mg by mouth [...] 2022 TIME: 3:57 PM documented in this encounterOhio Valley Surgical Hospital08-25-2023 History of Present illness Narrative* Mouna Kenney Tech - 10/24/2022 2:30 PM EDT Radiology Service Progress Note PATIENT NAME: Merna Webster DATE OF SERVICE: October 24, 2022 TIME: 2:45 PM PATIENT IDENTITY VERIFICATION COMPLETED USING TWO (2) IDENTIFIERS: Name and Date of confirmedby patient verbally. FALL SCREENING: Has the patient had 2 falls in the last year or 1 fall with injury or currently using an Ambulatory Assistive Device (Walker, Cane, Wheelchair, Crutches, etc.)? No PATIENT GENDER DATA: Female. status: : No status: NO. PATIENT RELEVANT IMPLANT DATA REVIEWED: Not Applicable RADIOLOGY DEPARTMENT: General X-ray: Exam(s) Completed: Lower Extremity X- Ray(s): Knee, AP / Lat / Tunne / Merchant Bilateral and Wt. Bearing Upper Extremity X-Ray(s): Shoulder, AP / TRUE AP / AXILLARY right PERIPHERAL IV DATA: Not applicable SIGNED BY: Octavio Dale October 24, 2022 2:45 PM documented in this encounterOhio Valley Surgical Hospital08-24-2023 Miscellaneous Notes* Telephone Encounter - Nanci Ledezma RN - 10/23/2022 10:05 AM EDT See triage documented in this [facility]08-24-2023 Miscellaneous Notes* Telephone Encounter - Nanci Ledezma RN - 10/23/2022 10:05 AM EDT Called to triage/discuss, no answer, left [facility] message: l am having a problem with sleeping too much sometimes 14 hours a day and l feel tired all the timewhat should I do l don t have much energy either l don t have energy to even go be with [facility] what should l do have headaches too Reason for Disposition Message left on unidentified voice mail. Phone number verified. Protocols used: No Contact or Duplicate Contact [id number] documented in this encounterOhio Valley Surgical Hospital08-22-2023 Miscellaneous Notes* Telephone Encounter - Cha Wynn OCCA - 10/21/2022 3:27 PM EDT Last appointment: 09/29/22 Next appointment: 01/19/23 Pharmacy verified in [facility]. Refill(s) requested: Requested Prescriptions Pending Prescriptions Disp Refills ALPRAZolam (XANAX) 1 mg tablet 90 tablet 0 Sig: Take 1 tablet by mouth three times daily as needed for sedation or anxiety for up to 30 days. Order(s) pended. Please advise. Cha TAYLOR October 21, 2022 3:28 PM documented in this encounterOhio Valley Surgical Hospital08-08-2023 History of Present illness Narrative* Joanne Iyer - 10/07/2022 3:04 PM EDT POPULATION HEALTH NAVIGATION OUTREACH Action/FYI 2nd call, left vm Patient Identified by Name and : NO Outreach Outcome/Action Unable to reach patient: Left message Ateedahart message sent Did you use a PCP flex slot to schedule this appointment? No Reason for Outreach Care Gap or Scheduling/Wellness visits Payer: Payor: [employer] MEDICARE / Plan: [employer] PLUS / Product Type: HMO / Care Gap Reviewed:: Specialty Scheduling Reminder: Reminder note to check Health Maintenance for items below Health Maintenance items due: COVID-19 VACCINE(5 - Pfizer series) due on 04/15/2022 Navigation Signature: Joanne Iyer October 07, 2022 3:04 PM documented in this encounterOhio Valley Surgical Hospital08-02-2023 History of Present illness Narrative* Joanne Iyer - 10/01/2022 9:47 AM EDT POPULATION HEALTH NAVIGATION OUTREACH Action/FYI Left vm Patient Identified by Name and : NO Outreach Outcome/Action Unable to reach patient: Left message MyChart message sent Did you use a PCP flex slot to schedule this appointment? No Reason for Outreach Care Gap or Scheduling/Wellness visits Payer: Payor: [employer] MEDICARE / Plan: [employer] PLUS / Product Type: HMO / Care Gap Reviewed:: Specialty Scheduling Reminder: Reminder note to check Health Maintenance for items below Health Maintenance items due: COVID-19 VACCINE(5 - Pfizer series) due on 04/15/2022 Navigation Signature: Joanne Iyer October 01, 2022 9:47 AM documented in this encounterOhio Valley Surgical Hospital07-28-2023 Miscellaneous Notes* Telephone Encounter - Namrata Barber MA - 09/26/2022 10:38 AM EDT Last OV 05/05/2022 F/U 10/27/2022 Patient's pharmacy requesting refills as follows: Requested Prescriptions Pending Prescriptions Disp Refills pirfenidone (ESBRIET) 801 mg tablet [Pharmacy Med Name: PIRFENIDONE 801MG Tablet] 90 tablet 5 Sig: TAKE 1 TABLET BY MOUTH 3 TIMES A DAY Please review and advise. Namrata Barber MA documented in this encounterOhio Valley Surgical Hospital07-14-2023 Miscellaneous Notes* Telephone Encounter - Avery Zamora Ma - 09/12/2022 8:27 AM EDT Please review and advise documented in this encounterOhio Valley Surgical Hospital07-11-2023 Miscellaneous Notes* Telephone Encounter - Nanci Ledezma RN - 09/09/2022 8:37 AM EDT Spoke to pharmacist, aware - will process medications. * Telephone Encounter - Сергей Espinoza MD - 09/08/2022 10:18 PM EDT Ok to fill both. Сергей Espinoza MD * Telephone Encounter - Indigo Fowler - 09/08/2022 9:23 AM EDT Pharmacy calling in to let Dr. Espinoza know that there is drug interaction between the 2 medicationsplease advise Pharmacy. verapamil SR (CALAN SR) 240 mg CR tablet 90 tablet 2 06/12/2022 03/09/2023 Sig: Take 1 tablet by mouth daily at bedtime. cloNIDine HCl (CATAPRES) 0.1 mg tablet 60 tablet 1 08/22/2022 Sig: Take 1 tablet by mouth twice daily Contact Lillie Bah. Indigo Mena documented in this encounterOhio Valley Surgical Hospital07-09-2023 Miscellaneous Notes* Telephone Encounter - Brinda Dominguez APRN.CNP - 09/07/2022 5:35 PM EDT Please change patient's appointment with me on 10/[address] Espinoza. If he doesn't have any openings,ok to use a virtual slot on a afternoon for OV. Thanks, Brinda Dominguez APRN.CNP documented in this encounterOhio Valley Surgical Hospital07-07-2023 History of Present illness Narrative* Brinda Dominguez APRN.CNP - 09/05/2022 4:01 PM EDT ESTABLISHED PATIENT Merna Webster is a 82 [...] hours as needed.^Disp: 18 g^Rfl: 11 fexofenadine (JENNIFER) 180 mg tablet^Take 180 mg by mouth [...] cm (5' 2.52") Wt 61.6 kg (135 lb12.8 oz) SpO2 96% BMI 24.43 kg/m General [...] for new or worsening symptoms Brinda Dominguez APRN.CNP * Destiny Elif - 09/05/2022 3:36 PM EDT There are no preventive care reminders to display for this patient. documented in this encounterOhio Valley Surgical Hospital07-05-2023 History of Present illness Narrative* Tania Castañeda RT(R) - 09/03/2022 4:00 PM EDT Radiology Service Progress Note PATIENT NAME: Merna Webster DATE OF SERVICE: September 03, 2022 TIME: 3:55 PM PATIENT IDENTITY VERIFICATION COMPLETED USING TWO (2) IDENTIFIERS: Name and Date of confirmedby patient verbally. FALL SCREENING: Has the patient had 2 falls in the last year or 1 fall with injury or currently using an Ambulatory Assistive Device (Walker, Cane, Wheelchair, Crutches, etc.)? Yes, Patient High Riskfor Falls What interventions were put in place to prevent falls during this visit? Instructed Patient to Callfor Help if Needed, Offered Assistance with Transfers/Clothing, [...] 03, 2022 3:55 PM documented in this encounterOhio Valley Surgical Hospital06-26-2023 Miscellaneous Notes* Telephone Encounter - Brinda Dominguez APRN.CNP - 08/25/2022 4:56 PM EDT PDMP website checked and validated. All prescriptions have been APPROPRIATELY filled. No suspiciousactivity was identified. 08/25/2022 by Brinda Dominguez APRN.BULLET CASTING OPERATOR * Telephone Encounter - Navya Burr MA - 08/25/2022 4:43 PM EDT Pharmacy verified in [facility]. Patient has been identified by name and [...] advise. Navya Burr MA documented in this encounterOhio Valley Surgical Hospital06-23-2023 History of Present illness Narrative* Сергей Espinoza MD - 08/22/2022 4:47 PM EDT ESTABLISHED PATIENT Merna Webster is a 82 [...] three times daily.^Disp: 15 g^Rfl: 1 fexofenadine (JENNIFER) 180 mg tablet^Take 180 mg by mouth [...] ttp Extremities: No edema. Сергей Espinoza MD * Callie Taylor - 08/22/2022 4:33 PM EDT There are no preventive care reminders to display for this patient. documented in this encounterOhio Valley Surgical Hospital06-23-2023 Instructions* Patient Instructions* Сергей Espinoza MD - 08/22/2022 4:33 PM EDT Start with gabapentin (for nerve pain), prednisone (for sinus congestion and neck pain), and doxycycline (for sinus congestion). If you don't start feeling better or your blood pressure remains high start clondinine. [facility] LAB TEST INFORMATION [facility] LAB HOURS: Lab is open: 7:30am to 5:00pm - , 7:30am to 4:00pm onFri and 8am -12pm on Thu. The lab is located in [facility] on the first floor. There is a registration window at the lab, available 7 am to 3 pm Thursday - Thursday. If registration is unavailable at the lab, you may register at the patient registration office near the front lobby of the hospital. SCHEDULING A LAB APPOINTMENT: Laboratory appointments are recommended.Walk ins are still accepted. Call [phone] or schedule via ebridge scheduling ticket. ROUTINE LAB ORDERS 60 days after they are entered. If your lab orders , you may be required to wait in the lab while they are reinstated FUTURE ORDERS are lab tests to be completed on the EXPECTED date. These orders 60 days afterthe expected date. STANDING ORDERS are recurring orders with an expiration date. The interval will indicate how often the test should be completed. CT / MRI / IVP If you have lab tests ordered for one of these radiology exams, please complete the blood work at least one day prior to the scheduled exam. PRESCRIPTION REFILL REQUESTS Request prescription refills through your ebridge account or contact your Pharmacy. My Chart Schedule My Appointment enables you to view your established primary care provider's open schedule and book an appointment online in real-time. This feature is available in internal medicine, family medicine, or pediatrics at any of our [facility] locations and main campus. documented in this encounterOhio Valley Surgical Hospital06-22-2023 Miscellaneous Notes* Telephone Encounter - Indigo Decker RN - 08/21/2022 6:45 PM EDT See Triage note * Telephone Encounter - Anai Cohen LPN - 08/21/2022 6:10 PM EDT Please triage Anai Cohen LPN documented in this encounterOhio Valley Surgical Hospital06-22-2023 Miscellaneous Notes* Telephone Encounter - Indigo Decker RN - 08/21/2022 4:19 PM EDT Patient had a headache last pm that [...] Questions 1. REASON FOR CALL or QUESTION: "Calling with an update on sx Protocols used: Information Only Call - No [id number] documented in this encounterOhio Valley Surgical Hospital06-22-2023 Miscellaneous Notes* Telephone Encounter - Jannet Dickens - 08/21/2022 3:13 PM EDT Neil thomas [facility] called with the name of the new DME for the patient's CPAP supplies. It is [employer]. . #[phone] documented in this encounterOhio Valley Surgical Hospital06-17-2023 Miscellaneous Notes* Telephone Encounter - Indigo Decker RN - 08/16/2022 10:41 AM EDT Unable to reach patient, left the message on designated VM, to CB with concerns. * Telephone Encounter - Сергей Espinoza MD - 08/15/2022 10:38 PM EDT I increased the nexium to twice daily. If not better to let me know. Thanks, Сергей Espinoza MD * Telephone Encounter - Indigo Decker RN - 08/15/2022 2:24 PM EDT Meds reviewed, patient states she has been [...] control pill, broken condom) N/A Protocols used: [id number] * Telephone Encounter - Indigo Decker RN - 08/15/2022 12:15 PM EDT Unable to reach, asked her to CB From Azima message Dr Espinoza can you help me [...] Initial Assessment Questions Returning patient's call from Azima message. Protocols used: No Contact or Duplicate Contact [id number] documented in this encounterOhio Valley Surgical Hospital06-16-2023 Miscellaneous Notes* Telephone Encounter - Indigo Decker RN - 08/15/2022 12:14 PM EDT See Triage message * Telephone Encounter - Aide Castillo APRN.TREVA - 08/15/2022 10:18 AM EDT Please triage. It does not appear as though this has been addressed recently? More than likely patient would benefit from a visit to discuss. documented in this encounterOhio Valley Surgical Hospital06-15-2023 Miscellaneous Notes* Telephone Encounter - Maritza Jorgensen LPN - 08/14/2022 1:38 PM EDT Pharmacy verified in [employer] Patient has been identified by name and [...] advise. Maritza Jorgensen LPN documented in this encounterOhio Valley Surgical Hospital05-12-2023 Miscellaneous Notes* Telephone Encounter - Destiny Shadenrique - 07/11/2022 11:01 AM EDT Last appointment: 05/21/22 Next appointment: 07/14/22 Pharmacy verified in [employer]. Refill(s) requested: Requested Prescriptions Pending Prescriptions Disp Refills nortriptyline (PAMELOR) 75 mg capsule [Pharmacy Med Name: NORTRIPTYLINE HCL 75 MG Capsule] 90 capsule 3 Sig: TAKE 1 CAPSULE AT BEDTIME Order(s) pended. Please advise. Destiny Asencio LPN documented in this encounterOhio Valley Surgical Hospital05-10-2023 NoteHNO ID: [id number] Author: RT Kindra(Ebony) Service: Radiology Author Type: Fine Grader Type: Progress Notes Filed: 07/09/2022 4:24 PM [...] BY: RT Kindra(Ebony) July 09, 2022 4:24 PMK[facility] [id number] History of Present illness Narrative* TIEN ArguellesR) - 07/09/2022 3:30 PM EDT Radiology Service Progress Note PATIENT NAME: Merna Webster DATE OF SERVICE: July 09, 2022 TIME: 4:24 PM PATIENT IDENTITY VERIFICATION COMPLETED USING TWO (2) IDENTIFIERS: Name and Date of confirmedby patient verbally and Name and Date of [...] RT Kindra(R) July 09, 2022 4:24 PM documented in this encounterOhio Valley Surgical Hospital04-26-2023 Miscellaneous Notes* Telephone Encounter - Brinda Dominguez APRN.CNP - 06/25/2022 4:12 PM EDT PDMP website checked and validated. All prescriptions have been APPROPRIATELY filled. No suspiciousactivity was identified. 06/25/2022 by Brinda Dominguez APRN.CNP * Telephone Encounter - Rajat Ramirez Ma - 06/25/2022 2:14 PM EDT Pharmacy verified in [facility] Patient has been identified by name [...] lb 14.7 oz) Not applicable Please advise. Rajta Ramirez Ma documented in this encounterOhio Valley Surgical Hospital04-26-2023 Miscellaneous Notes* Telephone Encounter - Caprice Parker - 06/25/2022 11:34 AM EDT Left VM and MyChart message for patient to bring in the updated insurance information with her to her 06/30 appt. documented in this encounterOhio Valley Surgical Hospital04-19-2023 Miscellaneous Notes* Telephone Encounter - Brian Mcclellan RN - 06/18/2022 5:41 PM EDT Spoke to patient who was advised of provider's message and verbalized understanding. Advised to call back with new, worsening, or persistent symptoms. * Telephone Encounter - Brinda Dominguez APRN.BULLET CASTING OPERATOR - 06/18/2022 4:51 PM EDT Meds reviewed. New script sent for imitrex. Please have patient follow up for persistent or worsening symptoms. Thanks, Brinda Dominguez APRN.BULLET CASTING OPERATOR * Telephone Encounter - Sabine Goyal RN - 06/18/2022 3:49 PM EDT Triaged patient. Migraine started two days ago. [...] new script can be sent to pharmacy. [phone] Sabine Goyal RN Reason for Disposition [1] [...] your last menstrual period?" NO Protocols used: [id number] documented in this encounterOhio Valley Surgical Hospital2023 Miscellaneous Notes* Telephone Encounter - Lorene Mendieta MA - 06/12/2022 9:02 AM EDT Last appointment: 06/24/22 Next appointment: 05/21/22 Pharmacy verified in [employer]. Refill(s) requested: Requested Prescriptions Pending Prescriptions Disp Refills verapamil SR (CALAN SR) 240 mg CR tablet 90 tablet 2 Sig: Take 1 tablet by mouth daily at bedtime. Order(s) pended. Please advise. Lorene Mendieta MA, DRY CLEANER documented in this encounterOhio Valley Surgical Hospital04-12-2023 Miscellaneous Notes* Telephone Encounter - Rica Amado PA-C - 06/11/2022 12:16 PM EDT Like we talked about in the office, she can increase the meloxicam to 15 mg (2 tablets) daily, assuming the medication is not giving her any stomach upset. Her other options would be to see one of our suergons to discuss hip replacemnt or to see pain management to discuss pain control. documented in this encounterOhio Valley Surgical Hospital03-28-2023 Miscellaneous Notes* Telephone Encounter - Brinda Dominguez APRN.CNP - 05/27/2022 1:05 PM EDT PDMP website checked and validated. All prescriptions have been APPROPRIATELY filled. No suspiciousactivity was identified. 05/27/2022 by Brinda Dominguez APRN.TREVA * Telephone Encounter - Jaclyn Rose MA - 05/27/2022 8:39 AM EDT Pharmacy verified in [facility] Patient has been identified by name [...] advise. Jaclyn Rose MA documented in this encounterOhio Valley Surgical Hospital03-23-2023 NoteHNO ID: [id number] Author: BERENICE Self Service: Radiology Author Type: Technologist Type: [...] PERIPHERAL IV DATA: Not applicable SIGNED BY: BERENICE Self May 22, 2022 3:03 PMKettering [facility] Main [id number] History of Present illness Narrative* JAIRON Cerrato - 05/22/2022 2:30 PM EDT PRIMARY CARE SOCIAL WORK PROGRESS NOTE Provider Action / FYI PCP Action No action needed at this time SERVICE DATE: May 22, 2022 SERVICE TIME: 2:25 PM (Patient has been identified by name and date of ) REASON FOR CONTACT: Financial Resources Mode of Outreach: Phone Call Progress Note: PCSW received order from PCP "Having financial issues, needs to move nursinghomes, problems with affording home". PCSW reviewed Pt chart. PCSW had contact with Pt on 06/07/21. Pt is active on . PCSW introduced self to Pt and explained reason for call. Pt stated she was driving and placed thiswriter on speaker phone. Pt will call this proposal writer 05/23 in the morning to further discuss. PCSW willremain available. INTERVENTION: Defers assessment at this time Time Spent:: 5 minutes SIGNATURE: JAIRON Cerrato PATIENT NAME: Merna Webster DATE: May 22, 2022 TIME: 2:30 PM CONTACT #: [phone] documented in this encounterOhio Valley Surgical Hospital03-23-2023 History of Present illness Narrative* Mariela Vang CT - 05/22/2022 2:30 PM EDT Radiology Service Progress Note PATIENT NAME: Merna Webster DATE OF SERVICE: May 22, 2022 TIME: 3:03 PM PATIENT IDENTITY VERIFICATION COMPLETED USING TWO (2) IDENTIFIERS: Name and Date of confirmedby patient verbally. FALL SCREENING: Has the patient had 2 falls in the last year or 1 fall with injury or currently using an Ambulatory Assistive Device (Walker, Cane, Wheelchair, Crutches, etc.)? Yes, Patient High Riskfor Falls What interventions were put in place to prevent falls during this visit? Offered Assistance with Transfers/Clothing and Increased Observations by Caregivers PATIENT GENDER DATA: Female. status: : No status: NO. PATIENT RELEVANT IMPLANT DATA REVIEWED: Not Applicable RADIOLOGY DEPARTMENT: General X-ray: Exam(s) Completed: Pelvis X-Ray: Pelvis with Hip Right and Wt.Bearing PERIPHERAL IV DATA: Not applicable SIGNED BY: BERENICE Self May 22, 2022 3:03 PM documented in this encounterOhio Valley Surgical Hospital03-22-2023 History of Present illness Narrative* Сергей Espinoza MD - 05/21/2022 1:19 PM EDT ESTABLISHED PATIENT Merna Webster is a 82 [...] Has financial problems. 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 Taking xanax as needed for anxiety ASSESSMENT: [...] tablet^Take 1 tablet by mouth daily at bedtime.^Disp:90 tablet^Rfl: 2 levothyroxine (SYNTHROID) 25 mcg tablet^Take 1 tablet by mouth once daily.^Disp: 90 tablet^Rfl: 4 fexofenadine (JENNIFER) 180 mg tablet^Take 180 mg by mouth [...] rubs. Extremities: No edema. Сергей Espinoza MD * Callie Taylor - 05/21/2022 1:06 PM EDT ADVANCE DIRECTIVE DISCUSSION due on 03/02/2022 documented in this encounterOhio Valley Surgical Hospital03-22-2023 Instructions* Patient Instructions* Callie Taylor - 05/21/2022 1:06 PM EDT [facility] TEST INFORMATION [facility] HOURS: Lab is open: 7:30am to 5:00pm - , 7:30am to 4:00pm onFri and 8am -12pm on Sat. The lab is located in [facility] on the first floor. There is a registration window at the lab, available 7 am to 3 pm Thursday - Thursday. If registration is unavailable at the lab, you may register at the patient registration office near the front lobby of the hospital. SCHEDULING A LAB APPOINTMENT: Laboratory appointments are recommended.Walk ins are still accepted. Call [phone] or schedule via ebridge scheduling ticket. ROUTINE LAB ORDERS 60 days after they are entered. If your lab orders , you may be required to wait in the lab while they are reinstated FUTURE ORDERS are lab tests to be completed on the EXPECTED date. These orders 60 days afterthe expected date. STANDING ORDERS are recurring orders with an expiration date. The interval will indicate how often the test should be completed. CT / MRI / IVP If you have lab tests ordered for one of these radiology exams, please complete the blood work at least one day prior to the scheduled exam. PRESCRIPTION REFILL REQUESTS Request prescription refills through your ebridge account or contact your Pharmacy. My Chart Schedule My Appointment enables you to view your established primary care provider's open schedule and book an appointment online in real-time. This feature is available in internal medicine, family medicine, or pediatrics at any of our [facility] locations and main campus. documented in this encounterOhio Valley Surgical Hospital03-13-2023 Miscellaneous Notes* Telephone Encounter - Destiny Asencio - 05/12/2022 10:00 AM EDT Noted documented in this encounterOhio Valley Surgical Hospital03-09-2023 Miscellaneous Notes* Telephone Encounter - Sirisha Adams - 05/08/2022 4:29 PM EST PA completed on [employer] for Levalbuterol Tartrate 45MCG/ACT aerosol Approvedtoday PA Case: [id number], Status: Approved, Coverage Starts on: 03/02/2022 12:00:00 AM, Coverage Ends on: 03/01/2023 12:00:00 AM. Questions? Contact . documented in this encounterOhio Valley Surgical Hospital03-06-2023 History of Present illness Narrative* Tomasa Ramirez APRN.BULLET CASTING OPERATOR - 05/05/2022 3:30 PM EST Images from the original note were not [...] exertion. She notes continued desaturation when trying toperform certain activities at home without O2 (78% [...] patient reports benefit - continue flonase and jennifer for allergies/rhinorrhea - encouraged regular consumption of ensure/boost shakes to help supplement diet, reports losing some weight due to stress and other factors related to care of Subjective HISTORY OF PRESENT ILLNESS: Merna Webster is a 82 year old female who presents today for follow-up. Past medical historyis significant for IPF, asthma, JENNY on CPAP, [...] benefiting from this - continue flonase and jennifer for allergies/rhinorrhea - encouraged regular consumption of [...] concerned about her exposure - though she isnot having any symptoms Feels she is using [...] tablet^Take 1 tablet by mouth daily at bedtime.^Disp:90 tablet^Rfl: 2 levothyroxine (SYNTHROID) 25 mcg tablet^Take 1 tablet by mouth once daily.^Disp: 90 tablet^Rfl: 4 fexofenadine (JENNIFER) 180 mg tablet^Take 180 mg by mouth [...] COVID-19 booster vaccine, age 12+ yr, bivalent (Electrochaea) 12/13/2021 COVID-19 original vaccine, age 12+ yr, monovalent (Electrochaea - PURPLE TOP) 2020 05/04/2020 03/06/2021 Influenza Seasonal - High Dose - Age 65+ 03/25/2016 12/26/2016 01/28/2018 12/15/2018 Influenza Seasonal Inj Age 3+ 12/20/2013 Influenza Vaccine, Split-Non Spec 12/17/2002 12/05/2003 01/09/2005 12/31/2005 01/09/2007 12/14/200901/1101/12/2012 Pneumococcal-13 Vac Conjugate 10/10/2014 Pneumovax 07/07/2006 12/20/2013 [...] by: Tomasa Ramirez APRN.TREVA Pulmonary Medicine Respiratory [place], [facility] documented in this encounterOhio Valley Surgical Hospital03-04-2023 Miscellaneous Notes* Telephone Encounter - Sabine López RN - 05/03/2022 10:16 PM EST Reason for Call: Covid Exposure Outcome: Home Care Recommendation. Interim Care Advice given. Patient has an apt with Pulmonologiston Thursday. Reason for Disposition [1] COVID-19 EXPOSURE within last 14 days AND [2] NO symptoms Answer Assessment - Initial Assessment Questions 1. COVID-19 EXPOSURE: in a nursing home facility and some residents in the facility [...] 13. TRAVEL: no Protocols used: Coronavirus (COVID-19) [id number] documented in this encounterOhio Valley Surgical Hospital03-02-2023 Miscellaneous Notes* Telephone Encounter - Charleen Cruz Ma - 05/01/2022 2:49 PM EST Patient requesting refills as follow: Last prescribed : 02/03/22 Last OV: 02/14/22 Next OV: 05/21/22 Requested Prescriptions Pending Prescriptions Disp Refills esomeprazole (NEXIUM) 40 mg capsule 90 capsule 2 Sig: Take 1 capsule by mouth daily before breakfast. Please review and advise. Charleen Cruz Ma documented in this encounterOhio Valley Surgical Hospital02-28-2023 Miscellaneous Notes* Telephone Encounter - Tati Mark Ma - 04/29/2022 8:27 AM EST Pharmacy verified in [facility] Patient has been identified by name [...] advise. Tati Mark Ma documented in this encounterOhio Valley Surgical Hospital02-24-2023 Miscellaneous Notes* Telephone Encounter - Destiny Asencio - 04/25/2022 10:02 AM EST Last appointment: 02/14/22 Next appointment: 05/21/22 Pharmacy verified in [facility]. Refill(s) requested: Requested Prescriptions Pending Prescriptions Disp Refills pravastatin (PRAVACHOL) 40 mg tablet 90 tablet 4 Sig: Take 1 tablet by mouth daily at bedtime. Order(s) pended. Please advise. Destiny Asencio LPN documented in this encounterOhio Valley Surgical Hospital02-22-2023 Miscellaneous Notes* Telephone Encounter - Nanci Ledezma RN - 04/23/2022 2:53 PM EST Spoke to patient who states shingles started [...] taking antiviral medication Protocols used: Shingles (Zoster)-ADULT- * Telephone Encounter - Brinda Mena - 04/23/2022 2:48 PM EST Merna is calling to ask about shingles. She has a break out and was diagnosed at the [facility] on Thursday. Please contact her at [phone] documented in this encounterOhio Valley Surgical Hospital02-19-2023 History of Present illness NarrativePatient is an 82-year-old female who complains of [...] Patient states she has no history of shingles.[facility] Phone: [phone]) 942-723302-15-2023 Miscellaneous Notes* Telephone Encounter - Noemy Jenkins RN - 04/16/2022 1:28 PM EST Patient left VM on triage line re: Below. Called and left message letting her know tablets were sent to pharmacy. documented in this encounterOhio Valley Surgical Hospital02-15-2023 Miscellaneous Notes* Telephone Encounter - Martina Henry - 04/16/2022 9:33 AM EST Patient is rescheduled * Telephone Encounter - Lorene Jauregui LPN - 04/14/2022 8:08 AM EST Please see patient's mychart message. documented in this encounterOhio Valley Surgical Hospital02-10-2023 Miscellaneous Notes* Telephone Encounter - Sona Grier MD - 04/11/2022 3:56 PM EST Please schedule the patient for CT scan chest in 3 months followed by an office visit Thank you documented in this encounterOhio Valley Surgical Hospital02-09-2023 History of Present illness Narrative* Paula Ballesteros, RT(R) - 04/10/2022 4:20 PM EST Radiology Service Progress Note PATIENT NAME: Merna Webster DATE OF SERVICE: April 10, 2022 TIME: 4:37 PM PATIENT IDENTITY VERIFICATION COMPLETED USING TWO (2) IDENTIFIERS: Name and Date of confirmedby patient verbally and Name and Date of [...] 10, 2022 4:37 PM documented in this encounterOhio Valley Surgical Hospital02-07-2023 Miscellaneous Notes* Telephone Encounter - Martina Henry - 04/08/2022 12:50 PM EST Patient is scheduled * Telephone Encounter - Barbara Lemon - 04/03/2022 10:26 AM EST Images from the original note were not included. First attempt: left voicemail for patient to call back and scheduled echo Tomasa Ramirez APRN.TREVA Moreira [facility] Pulmonary Clerical Pool I have added an order for echocardiogram to assess for pulmonary hypertension related to the patient's pulmonary fibrosis. Please have her schedule this whenever it is most convenient for her. Thanks. Tomasa Ramirez APRN.BULLET CASTING OPERATOR documented in this encounterOhio Valley Surgical Hospital02-01-2023 Miscellaneous Notes* Telephone Encounter - Sheba Mitchell RN - 04/02/2022 2:37 PM EST See BLOVES message from 04/02/22 Closing this encounter. * Telephone Encounter - Sheba Mitchell RN - 04/02/2022 11:48 AM EST Left message for patient to call office back for message below. * Telephone Encounter - Sabine Goyal RN - 04/01/2022 8:51 AM EST Multiple MyChart messages sent regarding elevated BP [...] Protocols used: No Contact or Duplicate Contact [id number] documented in this encounterOhio Valley Surgical Hospital01-31-2023 Miscellaneous Notes* Telephone Encounter - Sabine Goyal RN - 04/01/2022 8:55 AM EST Addressed in alternate encounter. Sabine Goyal RN documented in this encounterOhio Valley Surgical Hospital01-30-2023 Miscellaneous Notes* Telephone Encounter - Brinda Dominguez APRN.CNP - 03/31/2022 5:01 PM EST PDMP website checked and validated. All prescriptions have been APPROPRIATELY filled. No suspiciousactivity was identified. 03/31/2022 by Brinda Dominguez APRN.TREVA * Telephone Encounter - Lauren Garcia LPN - 03/31/2022 2:24 PM EST Last appointment: 02/14/22 Next appointment: 05/21/22 Pharmacy verified in [facility] [employer] [facility]. Refill(s) requested: Requested Prescriptions Pending Prescriptions Disp Refills ALPRAZolam (XANAX) 1 mg tablet 90 tablet 0 Sig: Take 1 tablet by mouth three times daily as needed for sedation or anxiety for up to 30 days. Order(s) pended. Please advise. Lauren Garcia LPN, CMA documented in this encounterOhio Valley Surgical Hospital01-30-2023 Miscellaneous Notes* Telephone Encounter - Lauren Garcia LPN - 03/31/2022 2:26 PM EST Last appointment: 02/14/22 Next appointment: 05/21/22 Pharmacy verified in [employer] [facility] [employer]. Refill(s) requested: Requested Prescriptions Pending Prescriptions Disp Refills triamcinolone acetonide (KENALOG) 0.5 % cream 15 g 1 Sig: Apply to affected area three times daily. Order(s) pended. Please advise. Lauren Garcia LPN, CMA documented in this encounterOhio Valley Surgical Hospital01-30-2023 History of Present illness Narrative* Tomasa Ramirez APRN.CNP - 03/31/2022 10:00 AM EST Images from the original note were not [...] benefiting from this - continue flonase and jennifer for allergies/rhinorrhea - encouraged regular consumption of ensure/boost shakes to help supplement diet, reports losing some weight due to stress and other factors related to care of Subjective HISTORY OF PRESENT ILLNESS: Merna Webster is a 81 year old female who presents today for follow-up. Past medical historyis also significant for IPF, asthma, JENNY on [...] J30.9 - Well controlled on Flonase and Jennifer 7. Post Covid syndrome [facility] to [facility] discussed Referral to functional medicine discussed On [...] Negative for abdominal pain, blood in stool, diarrhea,nausea and vomiting. Genitourinary: Negative for difficulty urinating [...] tablet by mouth daily at bedtime. fexofenadine (JENNIFER) 180 mg tablet Take 180 mg by [...] by: Tomasa Ramirez APRN.CNP Pulmonary Medicine Respiratory [place], [facility] documented in this encounterOhio Valley Surgical Hospital01-27-2023 Miscellaneous Notes* Telephone Encounter - Sona Grier MD - 03/28/2022 4:25 PM EST Please inform the report to the ER if not feeling well and persistently low O2 sat * Telephone Encounter - Rekha Fink RN - 03/28/2022 3:40 PM EST Spoke with patient and she was reporting [...] TESTS AND FOLLOW UP IN PUL WITH BOTTLING SUPERVISOR * Telephone Encounter - Jannet Dickens - 03/28/2022 2:51 PM EST Patient called to reschedule her appointment, and asked if a nurse can please call her today and assist her with her oxygen issues. documented in this encounterOhio Valley Surgical Hospital01-24-2023 Miscellaneous Notes* Telephone Encounter - Brinda Dominguez APRN.CNP - 03/25/2022 11:32 AM EST Noted/agree. Brinda Dominguez APRN.TREVA * Telephone Encounter - Brian Mcclellan RN - 03/25/2022 10:03 AM EST Spoke to patient who c/o migraine headache that started yesterday and is gradually worsening. She took Excedrin Migraine and it slightly improved. Patient has Sumatriptan medication but she was calling to make sure this was for migraine headachesbefore she took it. Patient denies confusion, weakness [...] it has been a while. Protocols used: [id number] documented in this encounterOhio Valley Surgical Hospital01-18-2023 Miscellaneous Notes* Telephone Encounter - Fariba Willoughby MA - 03/19/2022 1:35 PM EST Patient is scheduled to see Rica Amado PA-C on 03/25/2022 for right hip pain at 1 PM. I see that she had been scheduled for an XR on Thursday03/21/2022 called and left detailed message for patient that we can do her XR in the [facility] 3rd floor same floor as ortho the [...] 19, 2022 1:37 PM documented in this encounterOhio Valley Surgical Hospital12-29-2022 Miscellaneous Notes* Telephone Encounter - Brinda Dominguez APRN.TREVA - 02/27/2022 3:18 PM EST PDMP website checked and validated. All prescriptions have been APPROPRIATELY filled. No suspiciousactivity was identified. 02/27/2022 by Brinda Dominguez APRN.BULLET CASTING OPERATOR * Telephone Encounter - Jaclyn Rose MA - 02/27/2022 2:25 PM EST Pharmacy verified in [facility] Patient has been identified by name [...] advise. Jaclyn Rose MA documented in this encounterOhio Valley Surgical Hospital12-16-2022 History of Present illness Narrative* Сергей Espinoza MD - 02/14/2022 2:44 PM EST ESTABLISHED PATIENT Merna Webster is a 81 year old female presenting for Follow Up. HISTORY OF PRESENT ILLNESS Patient moved to a one floor with all hard wood floors. That has been helpful for her and her . Depressed at times. Tomorrow will be 5 years since her daughter passed. No children will be coming in for [place]. Has problems getting motivated. Having lower back [...] tablet by mouth daily at bedtime. fexofenadine (JENNIFER) 180 mg tablet Take 180 mg by [...] TTP over trochanteric bursa Сергей Espinoza MD * Callie Taylor - 02/14/2022 2:34 PM EST BP CONTROLLED (<130/80) Never done documented in this encounterOhio Valley Surgical Hospital12-16-2022 Instructions* Patient Instructions* Callie Taylor - 02/14/2022 2:34 PM EST [facility] TEST INFORMATION [facility] HOURS: Lab is open: 7:30am to 5:00pm M - Th, 7:30am to 4:00pm onFri and 8am -12pm on Sat. The lab is located in [facility] on the first floor. There is a registration window at the lab, available 7 am to 3 pm Thursday - Thursday. If registration is unavailable at the lab, you may register at the patient registration office near the front lobby of the hospital. SCHEDULING A LAB APPOINTMENT: Laboratory appointments are recommended.Walk ins are still accepted. Call [phone] or schedule via ebridge scheduling ticket. ROUTINE LAB ORDERS 60 days after they are entered. If your lab orders , you may be required to wait in the lab while they are reinstated FUTURE ORDERS are lab tests to be completed on the EXPECTED date. These orders 60 days afterthe expected date. STANDING ORDERS are recurring orders with an expiration date. The interval will indicate how often the test should be completed. CT / MRI / IVP If you have lab tests ordered for one of these radiology exams, please complete the blood work at least one day prior to the scheduled exam. PRESCRIPTION REFILL REQUESTS Request prescription refills through your iDreamBookst account or contact your Pharmacy. My Chart Schedule My Appointment enables you to view your established primary care provider's open schedule and book an appointment online in real-time. This feature is available in internal medicine, family medicine, or pediatrics at any of our [facility] locations and main campus. documented in this encounterOhio Valley Surgical Hospital12-05-2022 Miscellaneous Notes* Telephone Encounter - Destiny Asencio - 02/03/2022 3:57 PM EST Last appointment: 12/13/21 Next appointment: 02/12/22 Pharmacy verified in [employer] [facility] [employer]. Refill(s) requested: Requested Prescriptions Pending Prescriptions Disp Refills esomeprazole (NEXIUM) 40 mg capsule 90 capsule 2 Sig: Take 1 capsule by mouth daily before breakfast. Order(s) pended. Please advise. Destiny Asencio LPN documented in this encounterOhio Valley Surgical Hospital11-29-2022 History of Present illness Narrative* Karen Pardo PTA - 01/28/2022 4:33 PM EST Episode Visit Count: 2 Therapist That Will [...] benefit from ongoing skilled physical therapy to p rogress toward set goals. PLAN FOR NEXT VISIT: [...] 46 Karen Pardo PTA documented in this encounterOhio Valley Surgical Hospital11-01-2022 Miscellaneous Notes* Telephone Encounter - Brinda Dominguez APRN.CNP - 12/31/2021 4:20 PM EDT PDMP website checked and validated. All prescriptions have been APPROPRIATELY filled. No suspiciousactivity was identified. 12/31/2021 by Brinda Dominguez APRN.TREVA * Telephone Encounter - Avery Zamora Ma - 12/31/2021 3:59 PM EDT Last appointment: 12/13/21 Next appointment: 02/12/22 Pharmacy verified in [facility]. Refill(s) requested: Requested Prescriptions Pending Prescriptions Disp Refills ALPRAZolam (XANAX) 1 mg tablet 90 tablet 0 Sig: Take 1 tablet by mouth three times daily as needed for sedation or anxiety for up to 30 days. Order(s) pended. Please advise. Avery Zamora Ma DRY CLEANER documented in this encounterOhio Valley Surgical Hospital10-31-2022 History of Present illness Narrative* Mariela Vang CT - 12/30/2021 2:00 PM EDT Radiology Service Progress Note PATIENT NAME: Merna Webster DATE OF SERVICE: December 30, 2021 TIME: 3:15 PM PATIENT IDENTITY VERIFICATION COMPLETED USING TWO (2) IDENTIFIERS: Name and Date of confirmedby patient verbally. FALL SCREENING: Has the patient had 2 falls in the last year or 1 fall with injury or currently using an Ambulatory Assistive Device (Walker, Cane, Wheelchair, Crutches, etc.)? Yes, Patient High Riskfor Falls What interventions were put in place to prevent falls during this visit? Offered Assistance with Transfers/Clothing and Increased Observations by Caregivers PATIENT GENDER DATA: Female. status: : No status: NO. PATIENT RELEVANT IMPLANT DATA REVIEWED: Not Applicable RADIOLOGY DEPARTMENT: General X-ray: Exam(s) Completed: Spine X-Ray(s): Lumbar AP / LAT / L5-S1 andSacrum/Coccyx Lower Extremity X-Ray(s): Knee, AP / Lat / Tunne / Merchant Right and Wt. Bearing PERIPHERAL IV DATA: Not applicable SIGNED BY: BERENICE Self December 30, 2021 3:15 PM documented in this encounterOhio Valley Surgical Hospital10-11-2022 Miscellaneous Notes* Telephone Encounter - Destiny Asencio - 12/10/2021 1:37 PM EDT Prior Authorization for Flovent Inhaler faxed to [facility] [phone] per request. documented in this encounterOhio Valley Surgical Hospital10-10-2022 Miscellaneous Notes* Telephone Encounter - Tati Mark Ma - 12/09/2021 3:25 PM EDT Pharmacy verified in [facility] Patient has been identified by name [...] advise. Tati Mark Ma documented in this encounterOhio Valley Surgical Hospital10-10-2022 Miscellaneous Notes* Telephone Encounter - Vianey Engle - 12/09/2021 1:48 PM EDT Patient has been contacted multiple times regarding rescheduling an appointment with Dr. Espinoza. See encounters from 12/03/2021 and 12/05/2021. Vianey Engle * Telephone Encounter - Lory Lai - 12/07/2021 9:19 AM EDT 1st attempt. LVM informing patient that we don't have any Saturdays available with Dr. Espinoza and that we can reschedule an appt for a different day of the week that works best for her. Thank you . Lory Lai * Telephone Encounter - Callie Taylor - 12/06/2021 9:50 AM EDT Please see if there are any Thursday appt for them with Dr Espinoza documented in this [facility]10-03-2022 Miscellaneous Notes* Telephone Encounter - Destiny Asencio - 12/02/2021 10:30 AM EDT Noted documented in this encounterOhio Valley Surgical Hospital10-03-2022 Miscellaneous Notes* Telephone Encounter - Callie Taylor - 12/02/2021 10:28 AM EDT Spoke with pt, issue resolved. She has her medication documented in this [facility]10-03-2022 Miscellaneous Notes* Telephone Encounter - Callie Taylor - 12/02/2021 10:26 AM EDT Situation has been resolved, see other encounter documented in this [facility]10-01-2022 Miscellaneous Notes* Telephone Encounter - Сергей Espinoza MD - 11/30/2021 8:34 AM EDT PDMP website checked and validated. All prescriptions have been APPROPRIATELY filled. No suspiciousactivity was identified. 11/30/2021 by Сергей Espinoza MD documented in this [facility]09-29-2022 Miscellaneous Notes* Telephone Encounter - Brinda Dominguez APRN.CNP - 11/28/2021 9:00 PM EDT PDMP website checked and validated. All prescriptions have been APPROPRIATELY filled. No suspiciousactivity was identified. 11/28/2021 by Brinda Dominguez APRN.BULLET CASTING OPERATOR * Telephone Encounter - Rajat Ramirez Ma - 11/28/2021 2:17 PM EDT Pharmacy verified in [facility] Patient has been identified by name [...] advise. Rajat Ramirez Ma documented in this encounterOhio Valley Surgical Hospital09-16-2022 Miscellaneous Notes* Telephone Encounter - Callie Taylor - 11/15/2021 9:24 AM EDT Received approval from [facility] for Qvar Redihaler 80 mcg Good until 03/01/22 Additional authorization may be required should the plan benefits or formulary change in the new year Pt advised * Telephone Encounter - Callie Taylor - 11/14/2021 2:51 PM EDT I called Jamia [phone] Started a PA for QVAR, Case # [id number] Turn aroud time 24 to 72 hours * Telephone Encounter - Trudi Jordan - 11/14/2021 2:04 PM EDT Pharmacist from [facility] calling in regard to patient requesting QVAR inhaler. Pharmacist said that she normally uses the flovant. Asking if the flovant is being cancelled. Please return call [phone] documented in this encounterOhio Valley Surgical Hospital09-12-2022 Miscellaneous Notes* Telephone Encounter - Sheba Mitchell RN - 11/11/2021 3:23 PM EDT Attempted to call patient no answer left message to call back. documented in this encounterOhio Valley Surgical Hospital08-29-2022 History of Present illness Narrative* Sona Grier MD - 10/28/2021 2:02 PM EDT Images from the original note were not [...] Wil [[place]* Rash Sulfa (Sulfonamide * rash CURRENT OUTPATIENT MEDICATIONS triamcinolone acetonide (KENALOG) 0.5 % cream Apply to affected area three times daily. ALPRAZolam (XANAX) 1 mg tablet Take 1 tablet by mouth twice daily as needed for sedation or anxietyfor up to 30 days. Do not start [...] instructed every 4 hours as needed. fexofenadine (JENNIFER) 180 mg tablet Take 180 mg by [...] production and shortness of breath. Negative for hemoptysisand wheezing. Cardiovascular: Negative for chest pain and [...] Chronic lung disease. No definite acute consolidation. French Instructor: PSCB Transcribe Date/Time: Dec 21 2020 7:08P Dictated [...] J30.9 - Well controlled on Flonase and Jennifer 7. Post Covid syndrome [facility] discussed Referral to functional medicine discussed On hold since is hospitalized with hip fracture 8. H/o covid infection November 2020 Did not require hsopitalization documented in this encounterOhio Valley Surgical Hospital08-12-2022 Miscellaneous Notes* Telephone Encounter - Lauren Garcia LPN - 10/11/2021 2:48 PM EDT Please review and advise. documented in this encounterOhio Valley Surgical Hospital08-12-2022 Miscellaneous Notes* Telephone Encounter - Destiny Asencio - 10/11/2021 8:54 AM EDT Last appointment: 05/30/21 Next appointment: 12/05/21 Pharmacy verified in [facility]. Refill(s) requested: Requested Prescriptions Pending Prescriptions Disp Refills triamcinolone acetonide (KENALOG) 0.5 % cream 15 g 1 Sig: Apply to affected area three times daily. Order(s) pended. Please advise. Destiny Asencio LPN documented in this encounterOhio Valley Surgical Hospital08-05-2022 Miscellaneous Notes* Telephone Encounter - Brinda Dominguez APRN.BULLET CASTING OPERATOR - 10/04/2021 9:42 AM EDT PDMP website checked and validated. All prescriptions have been APPROPRIATELY filled. No suspiciousactivity was identified. 10/04/2021 by Brinda Dominguez APRN.BULLET CASTING OPERATOR * Telephone Encounter - Aundrea Cordoba MA - 10/04/2021 8:27 AM EDT Last appointment: 07-01-21 Next appointment: 12-05-21 Pharmacy verified in [facility]. Refill(s) requested: Pending Prescriptions Disp Refills ALPRAZOLAM 1 MG TABLET 60 tablet 0 Sig: Take 1 tablet by mouth twice daily as needed for sedation or anxiety for up to 30 days. MARITA Class: C-IV TARYN: No Order(s) pended. Please advise. Aundrea Cordoba MA, [facility] documented in this encounterOhio Valley Surgical Hospital07-22-2022 Miscellaneous Notes* Telephone Encounter - Indigo Mena - 09/20/2021 4:05 PM EDT Pharmacy verified in [facility] Patient has been identified by name [...] 1.6 oz) Please advise. documented in this encounterOhio Valley Surgical Hospital07-20-2022 Miscellaneous Notes* Telephone Encounter - Maritza Jorgensen LPN - 09/18/2021 3:33 PM EDT documented in this encounterOhio Valley Surgical Hospital07-07-2022 Miscellaneous Notes* Telephone Encounter - Brinda Dominguez APRN.TREVA - 09/05/2021 1:59 PM EDT PDMP website checked and validated. All prescriptions have been APPROPRIATELY filled. No suspiciousactivity was identified. 09/05/2021 by Brinda Dominguez APRN.CNP * Telephone Encounter - Aundrea Cordoba MA - 09/05/2021 1:32 PM EDT Last appointment: 07-24-21 Next appointment: na Pharmacy verified in [facility]. Refill(s) requested: Pending Prescriptions Disp Refills ALPRAZOLAM 1 MG TABLET 60 tablet 0 Sig: Take 1 tablet by mouth twice daily as needed for sedation or anxiety for up to 30 days. MARITA Class: C-IV TARYN: No Order(s) pended. Please advise. Aundrea Cordoba MA, DRY CLEANER documented in this encounterOhio Valley Surgical Hospital06-08-2022 Miscellaneous Notes* Telephone Encounter - Brinda Dominguez APRN.CNP - 08/07/2021 1:10 PM EDT PDMP website checked and validated. All prescriptions have been APPROPRIATELY filled. No suspiciousactivity was identified. 08/07/2021 by Brinda Dominguez APRN.BULLET CASTING OPERATOR * Telephone Encounter - Maritza Jorgensen LPN - 08/07/2021 8:30 AM EDT Pharmacy verified in [facility] Patient has been identified by name and date of : Yes Patient aware RX will be sent to pharmacy. No need to notify patient. Patient phones for refill(s): Pending Prescriptions Disp Refills ALPRAZOLAM 1 MG TABLET 60 tablet 0 Sig: Take 1 tablet by mouth twice daily as needed for sedation or anxiety for up to 30 days. MARITA Class: C-IV TARYN: No Date of last office visit : 07/24/2021 Date of next office visit : Visit date not found Last 2 Encounter Wt Readings: Date: Wt: 07/24/2021 65.8 kg (145 lb 1.6 oz) 05/30/2021 65.8 kg (145 lb) Not applicable Please advise. Maritza Jorgensen LPN documented in this encounterOhio Valley Surgical Hospital06-01-2022 Miscellaneous Notes* Telephone Encounter - Сергей Espinoza MD - 07/31/2021 6:10 AM EDT Disregard. Patient sent an updated mychart and is doing better. Сергей Espinoza MD * Telephone Encounter - Сергей Espinoza MD - 07/30/2021 8:01 PM EDT Please offer patient a 40 min appt this at 220 in the office. Thanks, Сергей Espinoza MD * Telephone Encounter - Dwain Page MD - 07/30/2021 5:26 PM EDT Would allow PCP to address documented in this encounterOhio Valley Surgical Hospital05-25-2022 History of Present illness Narrative* Kenyon Zuniga APRN.TREVA - 07/24/2021 3:17 PM EDT ESTABLISHED PATIENT Merna Webster is a 81 [...] him bathe, has to encourage him to ambulate,big cause of stress for her Does take [...] twice daily as needed for sedation or anxietyfor up to 30 days. verapamil SR (CALAN SR, ISOPTIN SR) 240 mg CR tablet Take 1 tablet by mouth daily at bedtime. esomeprazole (NEXIUM) 40 mg capsule Take 1 capsule by mouth daily before breakfast. levothyroxine (SYNTHROID) 25 mcg tablet Take 1 tablet by mouth once daily. fluticasone (FLONASE) 50 mcg/actuation nasal spray Use 1 [place] in each nostril daily at bedtime. pravastatin [...] capsule by mouth daily at bedtime. fexofenadine (JENNIFER) 180 mg tablet Take 180 mg by [...] had discussion with patient about the effect moodand stress can have on fatigue. Patient will work on making time in her day for things she enjoys to "fill her cup back up" as caregiver fatigue also very likely a component here Kenyon Zuniga APRN.BULLET CASTING OPERATOR * Aundrea Cordoba MA - 07/24/2021 3:13 PM EDT BP CONTROLLED (<130/80) Never done COVID-19 VACCINE(4 - Booster for Pfizer series) due on 07/04/2021 documented in this encounterOhio Valley Surgical Hospital05-24-2022 Miscellaneous Notes* Telephone Encounter - Lauren Bustamante RN - 07/23/2021 3:11 PM EDT See nurse triage encounter * Telephone Encounter - Stacey Perez MA - 07/23/2021 2:38 PM EDT Please triage documented in this encounterOhio Valley Surgical Hospital05-24-2022 Miscellaneous Notes* Telephone Encounter - Lauren Bustamante RN - 07/23/2021 3:11 PM EDT See nurse triage encounter documented in this encounterOhio Valley Surgical Hospital05-24-2022 Miscellaneous Notes* Telephone Encounter - Lauren Bustamante RN - 07/23/2021 2:58 PM EDT Fatigue since Goes to bed 11-11:30pm, wakes [...] : NA Protocols used: WEAKNESS (GENERALIZED) AND [id number] * Telephone Encounter - Sabine Goyal RN - 06/11/2021 1:50 PM EDT Called patient at [phone], no answer. Left message explaining that PCP message would be sent via MY Chart for review. Advised she respond via MY Chart with questions or call the office at [phone] to discuss with Triage. Sabine Goyal RN * Telephone Encounter - Indigo Decker RN - 06/10/2021 9:02 AM EDT Tried patient and husbands number, asked her to CB. * Telephone Encounter - Norma Mckeon RN - 06/08/2021 10:04 AM EDT Left message for patient to return call. * Telephone Encounter - Nanci Ledezma RN - 06/07/2021 10:15 AM EDT Pt sent MC message because she was unable to reach triage. Called back, no answer - left VM * Telephone Encounter - Indigo Decker RN - 06/07/2021 8:57 AM EDT Unable to reach, asked her to CB * Telephone Encounter - Lauren Bustamante RN - 06/06/2021 2:29 PM EDT Left message to return call for nurse triage See notation below EL ElhysicianSigned 2:11 PM Addend Please let patient know I am going to consult the health and social care teacher to see what she can do to help. Herfind a new assisted living. Is she noticing any benefit from the xanax with the anxiety? Would counseling help her? I am going ot increase her verapamil to 240mg to see if that helps with the headaches and blood pressure. Thanks, Сергей Espinoza MD message: Menra eWbster Nathaniel A, MD 2 days ago Couldn t get in touch with you you would call and l kept missing it so l will try again. The answerto Dr Espinoza question Dr Cobian put me [...] get depressed because l am missing my kidstwo are and the oldest is a jerk l don t even talk to him because he is bully. 3 l just want to be happy and l can t because of our situation the reason being l didn t know what the covid sickness would end to be but Zach is really doing good except for his walking l bring up therapy and hedoesn t what to hear about so l am stuck between a rock and a hard place l will tell you l am goingto do my hardest to get out of here l am so anxious sometimes l could yell but l don t anyway can you help and tell me what to do l am looking for a place to call home ok thank you Merna Webster documented in this encounterOhio [facility]05-23-2022 Miscellaneous Notes* Telephone Encounter - Sirisha Adams - 07/22/2021 8:30 AM EDT Pharmacy faxed requesting the following refill. Rx was filled 2 weeks ago but sent to [facility] in [place]. Please sent to [facility]. Pending Prescriptions Disp Refills PIRFENIDONE 267 MG CAPSULE 270 capsule 3 Sig: TAKE 3 CAPSULES BY MOUTH THREE TIMES A DAY WITH MEALS TARYN: No Patient last appointment: 07/04/2021 Patient Phone numbers: [phone] (home) Request is for script(s) to be escript to pharmacy. Sirisha Adams documented in this encounterOhio Valley Surgical Hospital05-09-2022 Miscellaneous Notes* Telephone Encounter - Brinda Dominguez APRN.TREVA - 07/08/2021 9:58 AM EDT PDMP website checked and validated. All prescriptions have been APPROPRIATELY filled. No suspiciousactivity was identified. 07/08/2021 by Brinda Dominguez APRN.BULLET CASTING OPERATOR * Telephone Encounter - Niranjan Ocampo Ma - 07/08/2021 9:51 AM EDT Patient has been identified by name and date of : Yes Pending Prescriptions Disp Refills ALPRAZOLAM 1 MG TABLET 60 tablet 0 Sig: Take 1 tablet by mouth twice daily as needed for sedation or anxiety for up to 30 days. MARITA Class: C-IV TARYN: No RX INSTRUCTIONS: Patient aware RX will be sent to pharmacy. No need to notify patient. Niranjan Ocampo Ma documented in this encounterOhio Valley Surgical Hospital05-05-2022 Miscellaneous Notes* Telephone Encounter - Sona Grier MD - 07/04/2021 1:15 PM EDT esbriet refill documented in this encounterOhio Valley Surgical Hospital05-03-2022 Miscellaneous Notes* Telephone Encounter - Lauren Garcia LPN - 07/02/2021 8:40 AM EDT Last appointment: 05/30/21 Next appointment: N/A Pharmacy verified in [facility]. Refill(s) requested: Pending Prescriptions Disp Refills LEVOTHYROXINE 25 MCG TABLET 90 tablet 3 Sig: Take 1 tablet by mouth once daily. TARYN: No Order(s) pended. Please advise. Lauren Garcia LPN, CMA documented in this encounterOhio Valley Surgical Hospital04-12-2022 Miscellaneous Notes* Telephone Encounter - Lauren Garcia LPN - 06/11/2021 9:18 AM EDT Last appointment: 05/30/21 Next appointment: N/A Pharmacy verified in Epic. Refill(s) requested: Pending Prescriptions Disp Refills PRAVASTATIN 40 MG TABLET 90 tablet 3 Sig: Take 1 tablet by mouth daily at bedtime. TARYN: No Order(s) pended. Please advise. Lauren Garcia LPN, DRY CLEANER documented in this encounterOhio Valley Surgical Hospital04-11-2022 Miscellaneous Notes* Telephone Encounter - Sirisha Adams - 06/10/2021 2:50 PM EDT Received forms back from provider, faxed to [facility]. Transmission successful. Paperwork in fax drawer. * Telephone Encounter - Sirisha Adams - 06/07/2021 1:41 PM EDT Received forms from [facility] regarding O2 Letter of medical Necessity renewal . Placed on providers desk/folder for review/signature. Please return back to nurse to complete. documented in this encounterOhio Valley Surgical Hospital04-08-2022 History of Present illness Narrative* JAIRON Cerrato - 06/07/2021 3:05 PM EDT PRIMARY CARE SOCIAL WORK PROGRESS NOTE Provider Action / FYI PCP Action PLEASE SEE BELOW SERVICE DATE: June 07, 2021 SERVICE TIME: 2:55 PM REASON FOR CONTACT: Transition of Care Progress Note: PCSW order from PCP Patient needs help finding a new assisted living. PCSW reviewed Pt chart. Per 06/06/21 Nurse Triage "Please let patient know I am going to consult the health and social care teacher to see what she can do to help. Her find a new assisted living. Couldn t get in touch with you you would call and l kept missing it so l will try again. The answerto Dr Espinoza question Dr Cobian put me [...] get depressed because l am missing my kidstwo are and the oldest is a noah l don t even talk to him because he is bully. 3 l just want to be happy and l can t because of our situation the reason being l didn t know what the covid sickness would end to be but Zach is really doing good except for his walking l bring up therapy and hedoesn t what to hear about so l am stuck between a rock and a hard place l will tell you l am goingto do my hardest to get out of here l am so anxious sometimes l could yell but l don t anyway can you help and tell me what to do l am looking for a place to call home ok thank you Merna Kinsgleyerger" PCSW introduced self to Pt and explained calling from PCP office to assist with relocating. Pt stated that she does not like it there. Pt stated she is not interested "in another AL or anything like that". Pt stated that "we saw a one floor apartment and our granddaughter will move in with us and Ican get insurance to help with my care and since it's one floor it will be easy with the wheelchair". PCSW stated that since they found a place then wondered what PCSW role is and the phone disconnected. I called back and it was still connected and I could hear Pt and she stated to her that"[place] had health and social care teacher call and I don't want to talk to a health and social care teacher". I called back and it went directly to . This proposal writer left VM calling because Pt called office asking for assistance with finding new location and PCSW will remain available to assist with resources and provided name and number. Did you receive information on your AVS about the [facility]? N/A Did you like receiving this information? N/A Patient reported caregiver was able to meet their needs today? N/A INTERVENTION: Assisted Community / Assisted Living - External Resource Time Spent:: 10 minutes SIGNATURE: JAIRON Cerrato PATIENT NAME: Merna Webster DATE: June 07, 2021 TIME: 3:06 PM CONTACT #: [phone] documented in this encounterOhio Valley Surgical Hospital04-08-2022 Miscellaneous Notes* Telephone Encounter - Brinda Dominguez APRN.TREVA - 06/07/2021 12:24 PM EDT PDMP website checked and validated. All prescriptions have been APPROPRIATELY filled. No suspiciousactivity was identified. 06/07/2021 by Brinda Dominguez APRN.BULLET CASTING OPERATOR * Telephone Encounter - Destiny Asencio - 06/07/2021 11:40 AM EDT Last appointment: 05/30/21 Next appointment: n/a Pharmacy verified in [facility]. Refill(s) requested: Pending Prescriptions Disp Refills ALPRAZOLAM 1 MG TABLET 60 tablet 0 Sig: Take 1 tablet by mouth twice daily as needed for sedation or anxiety for up to 30 days. MARITA Class: C-IV TARYN: No Order(s) pended. Please advise. Destiny Asencio LPN documented in this encounterOhio Valley Surgical Hospital04-07-2022 Miscellaneous Notes* Telephone Encounter - Lauren Bustamante RN - 06/06/2021 2:34 PM EDT See nurse triage encounter * Telephone Encounter - Сергей Espinoza MD - 06/06/2021 2:11 PM EDT Please let patient know I am going to consult the health and social care teacher to see what she can do to help. Herfind a new assisted living. Is she noticing any benefit from the xanax with the anxiety? Would counseling help her? I am going ot increase her verapamil to 240mg to see if that helps with the headaches and blood pressure. Thanks, Сергей Espinoza MD * Telephone Encounter - Sabine Goyal RN - 06/05/2021 9:02 AM EDT Please review 05/31/21 MYChart encounter and advise if you would still like to increase Verapamil dosage? Sabine Goyal RN documented in this encounterOhio Valley Surgical Hospital04-05-2022 Miscellaneous Notes* Telephone Encounter - Sabine Goyal RN - 06/04/2021 10:46 AM EDT Addressed in alternate encounter. Sabine Goyal RN * Telephone Encounter - Jasmyn Queen RN - 06/01/2021 10:50 AM EDT Called pt at [phone], no answer. LM requesting CB to speak with nurse triage. * Telephone Encounter - Niranjan Ocampo Ma - 06/01/2021 9:09 AM EDT Please review and advise documented in this encounterOhio Valley Surgical Hospital04-01-2022 Miscellaneous Notes* Telephone Encounter - Lauren Bustamante RN - 05/31/2021 2:08 PM EDT Left message on for return call documented in this encounterOhio Valley Surgical Hospital03-31-2022 History of Present illness Narrative* Сергей Espinoza MD - 05/30/2021 3:11 PM EDT ESTABLISHED PATIENT Merna Webster is a 81 [...] twice daily as needed for sedation or anxietyfor up to 30 days. ESBRIET 267 mg [...] capsule by mouth daily before breakfast. fexofenadine (JENNIFER) 180 mg tablet Take 180 mg by [...] (FLONASE) 50 mcg/actuation nasal spray Use 1 [place] in each nostril daily at bedtime. diclofenac [...] rubs. Extremities: No edema. Сергей Espinoza MD * Callie Taylor - 05/30/2021 2:24 PM EDT BP CONTROLLED (<130/80) Never done INFLUENZA(1) due on 10/31/2020 ADVANCE DIRECTIVE DISCUSSION Never done documented in this encounterOhio Valley Surgical Hospital03-31-2022 Instructions* Patient Instructions* Callie Taylor - 05/30/2021 2:25 PM EDT [facility] MEDICAL OFFICE BUILDING LAB TEST INFORMATION [facility] BUILDING LAB HOURS: Lab is open: 7:30am to 5:00pm M - Th, 7:30am to 4:00pm onFri and 8am -12pm on Sat. The lab is located in [facility] on the first floor. There is a registration window at the lab, available 7 am to 3 pm Thursday. If registration is unavailable at the lab, you may register at the patient registration office near the front lobby of the hospital. SCHEDULING A LAB APPOINTMENT: Laboratory appointments are recommended.Walk ins are still accepted. Call [phone] or schedule via ebridge scheduling ticket. ROUTINE LAB ORDERS 60 days after they are entered. If your lab orders , you may be required to wait in the lab while they are reinstated FUTURE ORDERS are lab tests to be completed on the EXPECTED date. These orders 60 days afterthe expected date. STANDING ORDERS are recurring orders with an expiration date. The interval will indicate how often the test should be completed. CT / MRI / IVP If you have lab tests ordered for one of these radiology exams, please complete the blood work at least one day prior to the scheduled exam. PRESCRIPTION REFILL REQUESTS Request prescription refills through your ebridge account or contact your Pharmacy. My Chart Schedule My Appointment enables you to view your established primary care provider's open schedule and book an appointment online in real-time. This feature is available in internal medicine, family medicine, or pediatrics at any of our [facility] locations and main campus. documented in this encounterOhio Valley Surgical Hospital03-23-2017 History of Past illness Narrative* Problem Noted Date Resolved Date Dysphagia 05/22/2016 01/21/2017 Ischemic colon 06/02/2012 04/23/2017 Colonic mass 06/02/2012 04/23/2017 Unspecified sleep apnea 01/04/2008 07/23/19 18 Overview: DME: [facility]# [phone]; fax# [phone] Lumbago 09/10/2007 04/23/2017 Sprain of neck 09/10/2007 [...] of this encounter (statuses as of 05/31/2021) [facility] of Past illness Narrative* Problem Noted Date Resolved Date Dysphagia 05/22/2016 01/21/2017 Ischemic colon 06/02/2012 04/23/2017 Colonic mass 06/02/2012 04/23/2017 Unspecified sleep apnea 01/04/2008 07/23/19 18 Overview: DME: [facility]# [phone]; fax# [phone] Lumbago 09/10/2007 04/23/2017 Sprain of neck 09/10/2007 [...] of this encounter (statuses as of 05/31/2021) [facility] of Past illness Narrative* Problem Noted Date Resolved Date Dysphagia 05/22/2016 01/21/2017 Ischemic colon 06/02/2012 04/23/2017 Colonic mass 06/02/2012 04/23/2017 Unspecified sleep apnea 01/04/2008 07/23/19 18 Overview: DME: [facility] # [phone]; fax# [phone] Lumbago 09/10/2007 04/23/2017 Sprain of neck 09/10/2007 [...] of this encounter (statuses as of 06/04/2021) [facility] of Past illness Narrative* Problem Noted Date Resolved Date Dysphagia 05/22/2016 01/21/2017 Ischemic colon 06/02/2012 04/23/2017 Colonic mass 06/02/2012 04/23/2017 Unspecified sleep apnea 01/04/2008 07/23/19 18 Overview: DME: [facility]# [phone]; fax# [phone] Lumbago 09/10/2007 04/23/2017 Sprain of neck 09/10/2007 [...] of this encounter (statuses as of 06/06/2021) [facility] of Past illness Narrative* Problem Noted Date Resolved Date Dysphagia 05/22/2016 01/21/2017 Ischemic colon 06/02/2012 04/23/2017 Colonic mass 06/02/2012 04/23/2017 Unspecified sleep apnea 01/04/2008 07/23/19 18 Overview: DME: [facility]# [phone]; fax# [phone] Lumbago 09/10/2007 04/23/2017 Sprain of neck 09/10/2007 [...] of this encounter (statuses as of 06/07/2021) [facility] of Past illness Narrative* Problem Noted Date Resolved Date Dysphagia 05/22/2016 01/21/2017 Ischemic colon 06/02/2012 04/23/2017 Colonic mass 06/02/2012 04/23/2017 Unspecified sleep apnea 01/04/2008 07/23/19 18 Overview: DME: [facility] # [phone]; fax# [phone] Lumbago 09/10/2007 04/23/2017 Sprain of neck 09/10/2007 [...] of this encounter (statuses as of 06/07/2021) [facility] of Past illness Narrative* Problem Noted Date Resolved Date Dysphagia 05/22/2016 01/21/2017 Ischemic colon 06/02/2012 04/23/2017 Colonic mass 06/02/2012 04/23/2017 Unspecified sleep apnea 01/04/2008 07/23/19 18 Overview: DME: [facility]# [phone]; fax# [phone] Lumbago 09/10/2007 04/23/2017 Sprain of neck 09/10/2007 [...] of this encounter (statuses as of 06/10/2021) [facility] of [facility] illness Narrative* Problem Noted Date Resolved Date Dysphagia 05/22/2016 01/21/2017 Ischemic colon 06/02/2012 04/23/2017 Colonic mass 06/02/2012 04/23/2017 Unspecified sleep apnea 01/04/2008 07/23/19 18 Overview: DME: [facility]# [phone]; fax# [phone] Lumbago 09/10/2007 04/23/2017 Sprain of neck 09/10/2007 [...] of this encounter (statuses as of 06/11/2021) [facility] of [facility] illness Narrative* Problem Noted Date Resolved Date Dysphagia 05/22/2016 01/21/2017 Ischemic colon 06/02/2012 04/23/2017 Colonic mass 06/02/2012 04/23/2017 Unspecified sleep apnea 01/04/2008 07/23/19 18 Overview: DME: [facility] # [phone]; fax# [phone] Lumbago 09/10/2007 04/23/2017 Sprain of neck 09/10/2007 [...] of this encounter (statuses as of 07/02/2021) [facility] Narrative* Problem Noted Date Resolved Date Dysphagia 05/22/2016 01/21/2017 Ischemic colon 06/02/2012 04/23/2017 Colonic mass 06/02/2012 04/23/2017 Unspecified sleep apnea 01/04/2008 07/23/19 18 Overview: DME: [facility]# [phone]; fax# [phone] Lumbago 09/10/2007 04/23/2017 Sprain of neck 09/10/2007 [...] of this encounter (statuses as of 07/04/2021) [facility] Narrative* Problem Noted Date Resolved Date Dysphagia 05/22/2016 01/21/2017 Ischemic colon 06/02/2012 04/23/2017 Colonic mass 06/02/2012 04/23/2017 Unspecified sleep apnea 01/04/2008 07/23/19 18 Overview: DME: [facility]# [phone]; fax# [phone] Lumbago 09/10/2007 04/23/2017 Sprain of neck 09/10/2007 [...] of this encounter (statuses as of 07/08/2021) [facility] Narrative* Problem Noted Date Resolved Date Dysphagia 05/22/2016 01/21/2017 Ischemic colon 06/02/2012 04/23/2017 Colonic mass 06/02/2012 04/23/2017 Unspecified sleep apnea 01/04/2008 07/23/19 18 Overview: DME: [facility]# [phone]; fax# [phone] Lumbago 09/10/2007 04/23/2017 Sprain of neck 09/10/2007 [...] of this encounter (statuses as of 07/22/2021) [facility] Narrative* Problem Noted Date Resolved Date Dysphagia 05/22/2016 01/21/2017 Ischemic colon 06/02/2012 04/23/2017 Colonic mass 06/02/2012 04/23/2017 Unspecified sleep apnea 01/04/2008 07/23/19 18 Overview: DME: [facility]# [phone]; fax# [phone] Lumbago 09/10/2007 04/23/2017 Sprain of neck 09/10/2007 [...] of this encounter (statuses as of 07/23/2021) [facility] Narrative* Problem Noted Date Resolved Date Dysphagia 05/22/2016 01/21/2017 Ischemic colon 06/02/2012 04/23/2017 Colonic mass 06/02/2012 04/23/2017 Unspecified sleep apnea 01/04/2008 07/23/19 18 Overview: DME: [facility] # [phone]; fax# [phone] Lumbago 09/10/2007 04/23/2017 Sprain of neck 09/10/2007 [...] of this encounter (statuses as of 07/23/2021) [facility] Narrative* Problem Noted Date Resolved Date Dysphagia 05/22/2016 01/21/2017 Ischemic colon 06/02/2012 04/23/2017 Colonic mass 06/02/2012 04/23/2017 Unspecified sleep apnea 01/04/2008 07/23/19 18 Overview: DME: [facility]# [phone]; fax# [phone] Lumbago 09/10/2007 04/23/2017 Sprain of neck 09/10/2007 [...] of this encounter (statuses as of 07/24/2021) [facility] Narrative* Problem Noted Date Resolved Date Dysphagia 05/22/2016 01/21/2017 Ischemic colon 06/02/2012 04/23/2017 Colonic mass 06/02/2012 04/23/2017 Unspecified sleep apnea 01/04/2008 07/23/19 18 Overview: DME: [facility]# [phone]; fax# [phone] Lumbago 09/10/2007 04/23/2017 Sprain of neck 09/10/2007 [...] of this encounter (statuses as of 07/25/2021) [facility] Narrative* Problem Noted Date Resolved Date Dysphagia 05/22/2016 01/21/2017 Ischemic colon 06/02/2012 04/23/2017 Colonic mass 06/02/2012 04/23/2017 Unspecified sleep apnea 01/04/2008 07/23/19 18 Overview: DME: [facility] # [phone]; fax# [phone] Lumbago 09/10/2007 04/23/2017 Sprain of neck 09/10/2007 [...] of this encounter (statuses as of 07/31/2021) [facility] Narrative* Problem Noted Date Resolved Date Dysphagia 05/22/2016 01/21/2017 Ischemic colon 06/02/2012 04/23/2017 Colonic mass 06/02/2012 04/23/2017 Unspecified sleep apnea 01/04/2008 07/23/19 18 Overview: DME: [facility]# [phone]; fax# [phone] Lumbago 09/10/2007 04/23/2017 Sprain of neck 09/10/2007 [...] of this encounter (statuses as of 08/07/2021) [facility] Narrative* Problem Noted Date Resolved Date Dysphagia 05/22/2016 01/21/2017 Ischemic colon 06/02/2012 04/23/2017 Colonic mass 06/02/2012 04/23/2017 Unspecified sleep apnea 01/04/2008 07/23/19 18 Overview: DME: [facility]# [phone]; fax# [phone] Lumbago 09/10/2007 04/23/2017 Sprain of neck 09/10/2007 [...] of this encounter (statuses as of 09/05/2021) [facility] Narrative* Problem Noted Date Resolved Date Dysphagia 05/22/2016 01/21/2017 Ischemic colon 06/02/2012 04/23/2017 Colonic mass 06/02/2012 04/23/2017 Unspecified sleep apnea 01/04/2008 07/23/19 18 Overview: DME: [facility] # [phone]; fax# [phone] Lumbago 09/10/2007 04/23/2017 Sprain of neck 09/10/2007 [...] of this encounter (statuses as of 09/05/2021) [facility] Narrative* Problem Noted Date Resolved Date Dysphagia 05/22/2016 01/21/2017 Ischemic colon 06/02/2012 04/23/2017 Colonic mass 06/02/2012 04/23/2017 Unspecified sleep apnea 01/04/2008 07/23/19 18 Overview: DME: [facility]# [phone]; fax# [phone] Lumbago 09/10/2007 04/23/2017 Sprain of neck 09/10/2007 [...] of this encounter (statuses as of 09/18/2021) [facility] Narrative* Problem Noted Date Resolved Date Dysphagia 05/22/2016 01/21/2017 Ischemic colon 06/02/2012 04/23/2017 Colonic mass 06/02/2012 04/23/2017 Unspecified sleep apnea 01/04/2008 07/23/19 18 Overview: DME: [facility]# [phone]; fax# [phone] Lumbago 09/10/2007 04/23/2017 Sprain of neck 09/10/2007 [...] of this encounter (statuses as of 09/20/2021) [facility] Narrative* Problem Noted Date Resolved Date Dysphagia 05/22/2016 01/21/2017 Ischemic colon 06/02/2012 04/23/2017 Colonic mass 06/02/2012 04/23/2017 Unspecified sleep apnea 01/04/2008 07/23/19 18 Overview: DME: [facility] # [phone]; fax# [phone] Lumbago 09/10/2007 04/23/2017 Sprain of neck 09/10/2007 [...] of this encounter (statuses as of 09/21/2021) [facility] Narrative* Problem Noted Date Resolved Date Dysphagia 05/22/2016 01/21/2017 Ischemic colon 06/02/2012 04/23/2017 Colonic mass 06/02/2012 04/23/2017 Unspecified sleep apnea 01/04/2008 07/23/19 18 Overview: DME: [facility]# [phone]; fax# [phone] Lumbago 09/10/2007 04/23/2017 Sprain of neck 09/10/2007 [...] of this encounter (statuses as of 09/23/2021) [facility] Narrative* Problem Noted Date Resolved Date Dysphagia 05/22/2016 01/21/2017 Ischemic colon 06/02/2012 04/23/2017 Colonic mass 06/02/2012 04/23/2017 Unspecified sleep apnea 01/04/2008 07/23/19 18 Overview: DME: [facility]# [phone]; fax# [phone] Lumbago 09/10/2007 04/23/2017 Sprain of neck 09/10/2007 [...] of this encounter (statuses as of 10/04/2021) [facility] Narrative* Problem Noted Date Resolved Date Dysphagia 05/22/2016 01/21/2017 Ischemic colon 06/02/2012 04/23/2017 Colonic mass 06/02/2012 04/23/2017 Unspecified sleep apnea 01/04/2008 07/23/19 18 Overview: DME: [facility]# [phone]; fax# [phone] Lumbago 09/10/2007 04/23/2017 Sprain of neck 09/10/2007 [...] of this encounter (statuses as of 10/05/2021) [facility] Narrative* Problem Noted Date Resolved Date Dysphagia 05/22/2016 01/21/2017 Ischemic colon 06/02/2012 04/23/2017 Colonic mass 06/02/2012 04/23/2017 Unspecified sleep apnea 01/04/2008 07/23/19 18 Overview: DME: [facility]# [phone]; fax# [phone] Lumbago 09/10/2007 04/23/2017 Sprain of neck 09/10/2007 [...] of this encounter (statuses as of 10/11/2021) [facility] Narrative* Problem Noted Date Resolved Date Dysphagia 05/22/2016 01/21/2017 Ischemic colon 06/02/2012 04/23/2017 Colonic mass 06/02/2012 04/23/2017 Unspecified sleep apnea 01/04/2008 07/23/19 18 Overview: DME: [facility] # [phone]; fax# [phone] Lumbago 09/10/2007 04/23/2017 Sprain of neck 09/10/2007 [...] of this encounter (statuses as of 10/11/2021) [facility] Narrative* Problem Noted Date Resolved Date Dysphagia 05/22/2016 01/21/2017 Ischemic colon 06/02/2012 04/23/2017 Colonic mass 06/02/2012 04/23/2017 Unspecified sleep apnea 01/04/2008 07/23/19 18 Overview: DME: [facility]# [phone]; fax# [phone] Lumbago 09/10/2007 04/23/2017 Sprain of neck 09/10/2007 [...] of this encounter (statuses as of 10/28/2021) [facility] Narrative* Problem Noted Date Resolved Date Dysphagia 05/22/2016 01/21/2017 Ischemic colon 06/02/2012 04/23/2017 Colonic mass 06/02/2012 04/23/2017 Unspecified sleep apnea 01/04/2008 07/23/19 18 Overview: DME: [facility]# [phone]; fax# [phone] Lumbago 09/10/2007 04/23/2017 Sprain of neck 09/10/2007 [...] of this encounter (statuses as of 11/11/2021) [facility]2017 History of Past illness Narrative* Problem Noted Date Resolved Date Dysphagia 05/22/2016 01/21/2017 Ischemic colon 06/02/2012 04/23/2017 Colonic mass 06/02/2012 04/23/2017 Unspecified sleep apnea 01/04/2008 07/23/19 18 Overview: DME: [facility] # [phone]; fax# [phone] Lumbago 09/10/2007 04/23/2017 Sprain of neck 09/10/2007 [...] of this encounter (statuses as of 11/14/2021) [facility]2017 History of Past illness Narrative* Problem Noted Date Resolved Date Dysphagia 05/22/2016 01/21/2017 Ischemic colon 06/02/2012 04/23/2017 Colonic mass 06/02/2012 04/23/2017 Unspecified sleep apnea 01/04/2008 07/23/19 18 Overview: DME: [facility]# [phone]; fax# [phone] Lumbago 09/10/2007 04/23/2017 Sprain of neck 09/10/2007 [...] of this encounter (statuses as of 11/15/2021) [facility] History of Past illness Narrative* Problem Noted Date Resolved Date Dysphagia 05/22/2016 01/21/2017 Ischemic colon 06/02/2012 04/23/2017 Colonic mass 06/02/2012 04/23/2017 Unspecified sleep apnea 01/04/2008 07/23/19 18 Overview: DME: [facility]# [phone]; fax# [phone] Lumbago 09/10/2007 04/23/2017 Sprain of neck 09/10/2007 [...] of this encounter (statuses as of 11/29/2021) [facility] History of Past illness Narrative* Problem Noted Date Resolved Date Dysphagia 05/22/2016 01/21/2017 Ischemic colon 06/02/2012 04/23/2017 Colonic mass 06/02/2012 04/23/2017 Unspecified sleep apnea 01/04/2008 07/23/19 18 Overview: DME: [facility] # [phone]; fax# [phone] Lumbago 09/10/2007 04/23/2017 Sprain of neck 09/10/2007 [...] of this encounter (statuses as of 11/29/2021) [facility] History of Past illness Narrative* Problem Noted Date Resolved Date Dysphagia 05/22/2016 01/21/2017 Ischemic colon 06/02/2012 04/23/2017 Colonic mass 06/02/2012 04/23/2017 Unspecified sleep apnea 01/04/2008 07/23/19 18 Overview: DME: [facility]# [phone]; fax# [phone] Lumbago 09/10/2007 04/23/2017 Sprain of neck 09/10/2007 [...] of this encounter (statuses as of 11/30/2021) [facility] History of Past illness Narrative* Problem Noted Date Resolved Date Dysphagia 05/22/2016 01/21/2017 Ischemic colon 06/02/2012 04/23/2017 Colonic mass 06/02/2012 04/23/2017 Unspecified sleep apnea 01/04/2008 07/23/19 18 Overview: DME: [facility]# [phone]; fax# [phone] Lumbago 09/10/2007 04/23/2017 Sprain of neck 09/10/2007 [...] of this encounter (statuses as of 12/02/2021) [facility] History of Past illness Narrative* Problem Noted Date Resolved Date Dysphagia 05/22/2016 01/21/2017 Ischemic colon 06/02/2012 04/23/2017 Colonic mass 06/02/2012 04/23/2017 Unspecified sleep apnea 01/04/2008 07/23/19 18 Overview: DME: [facility] # [phone]; fax# [phone] Lumbago 09/10/2007 04/23/2017 Sprain of neck 09/10/2007 [...] of this encounter (statuses as of 12/02/2021) [facility] History of Past illness Narrative* Problem Noted Date Resolved Date Dysphagia 05/22/2016 01/21/2017 Ischemic colon 06/02/2012 04/23/2017 Colonic mass 06/02/2012 04/23/2017 Unspecified sleep apnea 01/04/2008 07/23/19 18 Overview: DME: [facility]# [phone]; fax# [phone] Lumbago 09/10/2007 04/23/2017 Sprain of neck 09/10/2007 [...] of this encounter (statuses as of 12/04/2021) [facility] History of Past illness Narrative* Problem Noted Date Resolved Date Dysphagia 05/22/2016 01/21/2017 Ischemic colon 06/02/2012 04/23/2017 Colonic mass 06/02/2012 04/23/2017 Unspecified sleep apnea 01/04/2008 07/23/19 18 Overview: DME: [facility]# [phone]; fax# [phone] Lumbago 09/10/2007 04/23/2017 Sprain of neck 09/10/2007 [...] of this encounter (statuses as of 12/09/2021) [facility] History of Past illness Narrative* Problem Noted Date Resolved Date Dysphagia 05/22/2016 01/21/2017 Ischemic colon 06/02/2012 04/23/2017 Colonic mass 06/02/2012 04/23/2017 Unspecified sleep apnea 01/04/2008 07/23/19 18 Overview: DME: [facility]# [phone]; fax# [phone] Lumbago 09/10/2007 04/23/2017 Sprain of neck 09/10/2007 [...] of this encounter (statuses as of 12/09/2021) [facility] History of Past illness Narrative* Problem Noted Date Resolved Date Dysphagia 05/22/2016 01/21/2017 Ischemic colon 06/02/2012 04/23/2017 Colonic mass 06/02/2012 04/23/2017 Unspecified sleep apnea 01/04/2008 07/23/19 18 Overview: DME: [facility]# [phone]; fax# [phone] Lumbago 09/10/2007 04/23/2017 Sprain of neck 09/10/2007 [...] of this encounter (statuses as of 12/10/2021) [facility]2017 History of Past illness Narrative* Problem Noted Date Resolved Date Dysphagia 05/22/2016 01/21/2017 Ischemic colon 06/02/2012 04/23/2017 Colonic mass 06/02/2012 04/23/2017 Unspecified sleep apnea 01/04/2008 07/23/19 Overview: DME: [facility] # [phone]; fax# [phone] Lumbago 09/10/2007 04/23/2017 Sprain of neck 09/10/2007 [...] of this encounter (statuses as of 12/23/2021) [facility] History of Past illness Narrative* Problem Noted Date Resolved Date Dysphagia 05/22/2016 01/21/2017 Ischemic colon 06/02/2012 04/23/2017 Colonic mass 06/02/2012 04/23/2017 Unspecified sleep apnea 01/04/2008 07/23/19 18 Overview: DME: [facility]# [phone]; fax# [phone] Lumbago 09/10/2007 04/23/2017 Sprain of neck 09/10/2007 [...] of this encounter (statuses as of 12/31/2021) [facility] History of Past illness Narrative* Problem Noted Date Resolved Date Dysphagia 05/22/2016 01/21/2017 Ischemic colon 06/02/2012 04/23/2017 Colonic mass 06/02/2012 04/23/2017 Unspecified sleep apnea 01/04/2008 07/23/19 18 Overview: DME: [facility]# [phone]; fax# [phone] Lumbago 09/10/2007 04/23/2017 Sprain of neck 09/10/2007 [...] of this encounter (statuses as of 01/28/2022) [facility] History of Past illness Narrative* Problem Noted Date Resolved Date Dysphagia 05/22/2016 01/21/2017 Ischemic colon 06/02/2012 04/23/2017 Colonic mass 06/02/2012 04/23/2017 Unspecified sleep apnea 01/04/2008 07/23/19 18 Overview: DME: [facility] # [phone]; fax# [phone] Lumbago 09/10/2007 04/23/2017 Sprain of neck 09/10/2007 [...] of this encounter (statuses as of 02/03/2022) [facility] History of Past illness Narrative* Problem Noted Date Resolved Date Dysphagia 05/22/2016 01/21/2017 Ischemic colon 06/02/2012 04/23/2017 Colonic mass 06/02/2012 04/23/2017 Unspecified sleep apnea 01/04/2008 07/23/19 18 Overview: DME: [facility]# [phone]; fax# [phone] Lumbago 09/10/2007 04/23/2017 Sprain of neck 09/10/2007 [...] of this encounter (statuses as of 02/15/2022) [facility] History of Past illness Narrative* Problem Noted Date Resolved Date Dysphagia 05/22/2016 01/21/2017 Ischemic colon 06/02/2012 04/23/2017 Colonic mass 06/02/2012 04/23/2017 Unspecified sleep apnea 01/04/2008 07/23/19 18 Overview: DME: [facility]# [phone]; fax# [phone] Lumbago 09/10/2007 04/23/2017 Sprain of neck 09/10/2007 [...] of this encounter (statuses as of 02/19/2022) [facility] History of Past illness Narrative* Problem Noted Date Resolved Date Dysphagia 05/22/2016 01/21/2017 Ischemic colon 06/02/2012 04/23/2017 Colonic mass 06/02/2012 04/23/2017 Unspecified sleep apnea 01/04/2008 07/23/19 18 Overview: DME: [facility] # [phone]; fax# [phone] Lumbago 09/10/2007 04/23/2017 Sprain of neck 09/10/2007 [...] of this encounter (statuses as of 03/05/2022) [facility] History of Past illness Narrative* Problem Noted Date Resolved Date Dysphagia 05/22/2016 01/21/2017 Ischemic colon 06/02/2012 04/23/2017 Colonic mass 06/02/2012 04/23/2017 Unspecified sleep apnea 01/04/2008 07/23/19 18 Overview: DME: [facility]# [phone]; fax# [phone] Lumbago 09/10/2007 04/23/2017 Sprain of neck 09/10/2007 [...] of this encounter (statuses as of 03/19/2022) [facility]2017 History of Past illness Narrative* Problem Noted Date Resolved Date Dysphagia 05/22/2016 01/21/2017 Ischemic colon 06/02/2012 04/23/2017 Colonic mass 06/02/2012 04/23/2017 Unspecified sleep apnea 01/04/2008 07/23/19 18 Overview: DME: [facility]# [phone]; fax# [phone] Lumbago 09/10/2007 04/23/2017 Sprain of neck 09/10/2007 [...] of this encounter (statuses as of 03/25/2022) [facility] History of Past illness Narrative* Problem Noted Date Resolved Date Dysphagia 05/22/2016 01/21/2017 Ischemic colon 06/02/2012 04/23/2017 Colonic mass 06/02/2012 04/23/2017 Unspecified sleep apnea 01/04/2008 07/23/19 18 Overview: DME: [facility] # [phone]; fax# [phone] Lumbago 09/10/2007 04/23/2017 Sprain of neck 09/10/2007 [...] of this encounter (statuses as of 03/28/2022) [facility] History of Past illness Narrative* Problem Noted Date Resolved Date Dysphagia 05/22/2016 01/21/2017 Ischemic colon 06/02/2012 04/23/2017 Colonic mass 06/02/2012 04/23/2017 Unspecified sleep apnea 01/04/2008 07/23/19 18 Overview: DME: [facility]# [phone]; fax# [phone] Lumbago 09/10/2007 04/23/2017 Sprain of neck 09/10/2007 [...] of this encounter (statuses as of 03/31/2022) [facility] History of Past illness Narrative* Problem Noted Date Resolved Date Dysphagia 05/22/2016 01/21/2017 Ischemic colon 06/02/2012 04/23/2017 Colonic mass 06/02/2012 04/23/2017 Unspecified sleep apnea 01/04/2008 07/23/19 18 Overview: DME: [facility]# [phone]; fax# [phone] Lumbago 09/10/2007 04/23/2017 Sprain of neck 09/10/2007 [...] of this encounter (statuses as of 04/01/2022) [facility] History of Past illness Narrative* Problem Noted Date Resolved Date Dysphagia 05/22/2016 01/21/2017 Ischemic colon 06/02/2012 04/23/2017 Colonic mass 06/02/2012 04/23/2017 Unspecified sleep apnea 01/04/2008 07/23/19 18 Overview: DME: [facility]# [phone]; fax# [phone] Lumbago 09/10/2007 04/23/2017 Sprain of neck 09/10/2007 [...] of this encounter (statuses as of 04/01/2022) [facility] History of Past illness Narrative* Problem Noted Date Resolved Date Dysphagia 05/22/2016 01/21/2017 Ischemic colon 06/02/2012 04/23/2017 Colonic mass 06/02/2012 04/23/2017 Unspecified sleep apnea 01/04/2008 07/23/19 18 Overview: DME: [facility]# [phone]; fax# [phone] Lumbago 09/10/2007 04/23/2017 Sprain of neck 09/10/2007 [...] of this encounter (statuses as of 04/01/2022) [facility] History of Past illness Narrative* Problem Noted Date Resolved Date Dysphagia 05/22/2016 01/21/2017 Ischemic colon 06/02/2012 04/23/2017 Colonic mass 06/02/2012 04/23/2017 Unspecified sleep apnea 01/04/2008 07/23/19 Overview: DME: [facility] # [phone]; fax# [phone] Lumbago 09/10/2007 04/23/2017 Sprain of neck 09/10/2007 [...] of this encounter (statuses as of 04/02/2022) [facility] History of Past illness Narrative* Problem Noted Date Resolved Date Dysphagia 05/22/2016 01/21/2017 Ischemic colon 06/02/2012 04/23/2017 Colonic mass 06/02/2012 04/23/2017 Unspecified sleep apnea 01/04/2008 07/23/19 18 Overview: DME: [facility]# [phone]; fax# [phone] Lumbago 09/10/2007 04/23/2017 Sprain of neck 09/10/2007 [...] of this encounter (statuses as of 04/08/2022) [facility] History of Past illness Narrative* Problem Noted Date Resolved Date Dysphagia 05/22/2016 01/21/2017 Ischemic colon 06/02/2012 04/23/2017 Colonic mass 06/02/2012 04/23/2017 Unspecified sleep apnea 01/04/2008 07/23/19 18 Overview: DME: [facility]# [phone]; fax# [phone] Lumbago 09/10/2007 04/23/2017 Sprain of neck 09/10/2007 [...] of this encounter (statuses as of 04/11/2022) [facility] History of Past illness Narrative* Problem Noted Date Resolved Date Dysphagia 05/22/2016 01/21/2017 Ischemic colon 06/02/2012 04/23/2017 Colonic mass 06/02/2012 04/23/2017 Unspecified sleep apnea 01/04/2008 07/23/19 18 Overview: DME: [facility] # [phone]; fax# [phone] Lumbago 09/10/2007 04/23/2017 Sprain of neck 09/10/2007 [...] of this encounter (statuses as of 04/15/2022) [facility] History of Past illness Narrative* Problem Noted Date Resolved Date Dysphagia 05/22/2016 01/21/2017 Ischemic colon 06/02/2012 04/23/2017 Colonic mass 06/02/2012 04/23/2017 Unspecified sleep apnea 01/04/2008 07/23/19 18 Overview: DME: [facility]# [phone]; fax# [phone] Lumbago 09/10/2007 04/23/2017 Sprain of neck 09/10/2007 [...] of this encounter (statuses as of 04/16/2022) [facility] History of Past illness Narrative* Problem Noted Date Resolved Date Dysphagia 05/22/2016 01/21/2017 Ischemic colon 06/02/2012 04/23/2017 Colonic mass 06/02/2012 04/23/2017 Unspecified sleep apnea 01/04/2008 07/23/19 18 Overview: DME: [facility]# [phone]; fax# [phone] Lumbago 09/10/2007 04/23/2017 Sprain of neck 09/10/2007 [...] of this encounter (statuses as of 04/16/2022) [facility] History of Past illness Narrative* Problem Noted Date Resolved Date Dysphagia 05/22/2016 01/21/2017 Ischemic colon 06/02/2012 04/23/2017 Colonic mass 06/02/2012 04/23/2017 Unspecified sleep apnea 01/04/2008 07/23/19 18 Overview: DME: [facility] # [phone]; fax# [phone] Lumbago 09/10/2007 04/23/2017 Sprain of neck 09/10/2007 [...] of this encounter (statuses as of 04/18/2022) [facility] History of Past illness Narrative* Problem Noted Date Resolved Date Dysphagia 05/22/2016 01/21/2017 Ischemic colon 06/02/2012 04/23/2017 Colonic mass 06/02/2012 04/23/2017 Unspecified sleep apnea 01/04/2008 07/23/19 18 Overview: DME: [facility]# [phone]; fax# [phone] Lumbago 09/10/2007 04/23/2017 Sprain of neck 09/10/2007 [...] of this encounter (statuses as of 04/21/2022) [facility] History of Past illness Narrative* Problem Noted Date Resolved Date Dysphagia 05/22/2016 01/21/2017 Ischemic colon 06/02/2012 04/23/2017 Colonic mass 06/02/2012 04/23/2017 Unspecified sleep apnea 01/04/2008 07/23/19 18 Overview: DME: [facility]# [phone]; fax# [phone] Lumbago 09/10/2007 04/23/2017 Sprain of neck 09/10/2007 [...] of this encounter (statuses as of 04/23/2022) [facility] History of Past illness Narrative* Problem Noted Date Resolved Date Dysphagia 05/22/2016 01/21/2017 Ischemic colon 06/02/2012 04/23/2017 Colonic mass 06/02/2012 04/23/2017 Unspecified sleep apnea 01/04/2008 07/23/19 18 Overview: DME: [facility]# [phone]; fax# [phone] Lumbago 09/10/2007 04/23/2017 Sprain of neck 09/10/2007 [...] of this encounter (statuses as of 04/24/2022) [facility] History of Past illness Narrative* Problem Noted Date Resolved Date Dysphagia 05/22/2016 01/21/2017 Ischemic colon 06/02/2012 04/23/2017 Colonic mass 06/02/2012 04/23/2017 Unspecified sleep apnea 01/04/2008 07/23/19 18 Overview: DME: [facility]# [phone]; fax# [phone] Lumbago 09/10/2007 04/23/2017 Sprain of neck 09/10/2007 [...] of this encounter (statuses as of 04/25/2022) [facility] History of Past illness Narrative* Problem Noted Date Resolved Date Dysphagia 05/22/2016 01/21/2017 Ischemic colon 06/02/2012 04/23/2017 Colonic mass 06/02/2012 04/23/2017 Unspecified sleep apnea 01/04/2008 07/23/19 18 Overview: DME: [facility] # [phone]; fax# [phone] Lumbago 09/10/2007 04/23/2017 Sprain of neck 09/10/2007 [...] of this encounter (statuses as of 04/29/2022) [facility] History of Past illness Narrative* Problem Noted Date Resolved Date Dysphagia 05/22/2016 01/21/2017 Ischemic colon 06/02/2012 04/23/2017 Colonic mass 06/02/2012 04/23/2017 Unspecified sleep apnea 01/04/2008 07/23/19 18 Overview: DME: [facility]# [phone]; fax# [phone] Lumbago 09/10/2007 04/23/2017 Sprain of neck 09/10/2007 [...] of this encounter (statuses as of 05/01/2022) [facility] History of Past illness Narrative* Problem Noted Date Resolved Date Dysphagia 05/22/2016 01/21/2017 Ischemic colon 06/02/2012 04/23/2017 Colonic mass 06/02/2012 04/23/2017 Unspecified sleep apnea 01/04/2008 07/23/19 18 Overview: DME: [facility]# [phone]; fax# [phone] Lumbago 09/10/2007 04/23/2017 Sprain of neck 09/10/2007 [...] of this encounter (statuses as of 05/04/2022) [facility] History of Past illness Narrative* Problem Noted Date Resolved Date Dysphagia 05/22/2016 01/21/2017 Ischemic colon 06/02/2012 04/23/2017 Colonic mass 06/02/2012 04/23/2017 Unspecified sleep apnea 01/04/2008 07/23/19 Overview: DME: [facility] # [phone]; fax# [phone] Lumbago 09/10/2007 04/23/2017 Sprain of neck 09/10/2007 [...] of this encounter (statuses as of 05/06/2022) [facility] History of Past illness Narrative* Problem Noted Date Resolved Date Dysphagia 05/22/2016 01/21/2017 Ischemic colon 06/02/2012 04/23/2017 Colonic mass 06/02/2012 04/23/2017 Unspecified sleep apnea 01/04/2008 07/23/19 18 Overview: DME: [facility]# [phone]; fax# [phone] Lumbago 09/10/2007 04/23/2017 Sprain of neck 09/10/2007 [...] of this encounter (statuses as of 05/09/2022) [facility] History of Past illness Narrative* Problem Noted Date Resolved Date Dysphagia 05/22/2016 01/21/2017 Ischemic colon 06/02/2012 04/23/2017 Colonic mass 06/02/2012 04/23/2017 Unspecified sleep apnea 01/04/2008 07/23/19 18 Overview: DME: [facility]# [phone]; fax# [phone] Lumbago 09/10/2007 04/23/2017 Sprain of neck 09/10/2007 [...] of this encounter (statuses as of 05/09/2022) [facility] History of Past illness Narrative* Problem Noted Date Resolved Date Dysphagia 05/22/2016 01/21/2017 Ischemic colon 06/02/2012 04/23/2017 Colonic mass 06/02/2012 04/23/2017 Unspecified sleep apnea 01/04/2008 07/23/19 18 Overview: DME: [facility] # [phone]; fax# [phone] Lumbago 09/10/2007 04/23/2017 Sprain of neck 09/10/2007 [...] of this encounter (statuses as of 05/12/2022) [facility] History of Past illness Narrative* Problem Noted Date Resolved Date Dysphagia 05/22/2016 01/21/2017 Ischemic colon 06/02/2012 04/23/2017 Colonic mass 06/02/2012 04/23/2017 Unspecified sleep apnea 01/04/2008 07/23/19 18 Overview: DME: [facility]# [phone]; fax# [phone] Lumbago 09/10/2007 04/23/2017 Sprain of neck 09/10/2007 [...] of this encounter (statuses as of 05/22/2022) [facility] History of Past illness Narrative* Problem Noted Date Resolved Date Dysphagia 05/22/2016 01/21/2017 Ischemic colon 06/02/2012 04/23/2017 Colonic mass 06/02/2012 04/23/2017 Unspecified sleep apnea 01/04/2008 07/23/19 18 Overview: DME: [facility]# [phone]; fax# [phone] Lumbago 09/10/2007 04/23/2017 Sprain of neck 09/10/2007 [...] of this encounter (statuses as of 05/22/2022) [facility] History of Past illness Narrative* Problem Noted Date Resolved Date Dysphagia 05/22/2016 01/21/2017 Ischemic colon 06/02/2012 04/23/2017 Colonic mass 06/02/2012 04/23/2017 Unspecified sleep apnea 01/04/2008 07/23/19 18 Overview: DME: [facility] # [phone]; fax# [phone] Lumbago 09/10/2007 04/23/2017 Sprain of neck 09/10/2007 [...] of this encounter (statuses as of 05/27/2022) [facility] History of Past illness Narrative* Problem Noted Date Resolved Date Dysphagia 05/22/2016 01/21/2017 Ischemic colon 06/02/2012 04/23/2017 Colonic mass 06/02/2012 04/23/2017 Unspecified sleep apnea 01/04/2008 07/23/19 18 Overview: DME: [facility]# [phone]; fax# [phone] Lumbago 09/10/2007 04/23/2017 Sprain of neck 09/10/2007 [...] of this encounter (statuses as of 06/04/2022) [facility] History of Past illness Narrative* Problem Noted Date Resolved Date Dysphagia 05/22/2016 01/21/2017 Ischemic colon 06/02/2012 04/23/2017 Colonic mass 06/02/2012 04/23/2017 Unspecified sleep apnea 01/04/2008 07/23/19 18 Overview: DME: [facility]# [phone]; fax# [phone] Lumbago 09/10/2007 04/23/2017 Sprain of neck 09/10/2007 [...] of this encounter (statuses as of 06/12/2022) [facility] History of Past illness Narrative* Problem Noted Date Resolved Date Dysphagia 05/22/2016 01/21/2017 Ischemic colon 06/02/2012 04/23/2017 Colonic mass 06/02/2012 04/23/2017 Unspecified sleep apnea 01/04/2008 07/23/19 18 Overview: DME: [facility]# [phone]; fax# [phone] Lumbago 09/10/2007 04/23/2017 Sprain of neck 09/10/2007 [...] of this encounter (statuses as of 06/13/2022) [facility] of Past illness Narrative* Problem Noted Date Resolved Date Dysphagia 05/22/2016 01/21/2017 Ischemic colon 06/02/2012 04/23/2017 Colonic mass 06/02/2012 04/23/2017 Unspecified sleep apnea 01/04/2008 07/23/19 18 Overview: DME: [facility]# [phone]; fax# [phone] Lumbago 09/10/2007 04/23/2017 Sprain of neck 09/10/2007 [...] of this encounter (statuses as of 06/19/2022) [facility] of Past illness Narrative* Problem Noted Date Resolved Date Dysphagia 05/22/2016 01/21/2017 Ischemic colon 06/02/2012 04/23/2017 Colonic mass 06/02/2012 04/23/2017 Unspecified sleep apnea 01/04/2008 07/23/19 18 Overview: DME: [facility] # [phone]; fax# [phone] Lumbago 09/10/2007 04/23/2017 Sprain of neck 09/10/2007 [...] of this encounter (statuses as of 06/25/2022) [facility] History of Past illness Narrative* Problem Noted Date Resolved Date Dysphagia 05/22/2016 01/21/2017 Ischemic colon 06/02/2012 04/23/2017 Colonic mass 06/02/2012 04/23/2017 Unspecified sleep apnea 01/04/2008 07/23/19 18 Overview: DME: [facility]# [phone]; fax# [phone] Lumbago 09/10/2007 04/23/2017 Sprain of neck 09/10/2007 [...] of this encounter (statuses as of 06/26/2022) [facility] of Past illness Narrative* Problem Noted Date Resolved Date Dysphagia 05/22/2016 01/21/2017 Ischemic colon 06/02/2012 04/23/2017 Colonic mass 06/02/2012 04/23/2017 Unspecified sleep apnea 01/04/2008 07/23/19 18 Overview: DME: [facility]# [phone]; fax# [phone] Lumbago 09/10/2007 04/23/2017 Sprain of neck 09/10/2007 [...] of this encounter (statuses as of 07/09/2022) [facility] Past illness Narrative* Problem Noted Date Resolved Date Dysphagia 05/22/2016 01/21/2017 Ischemic colon 06/02/2012 04/23/2017 Colonic mass 06/02/2012 04/23/2017 Unspecified sleep apnea 01/04/2008 07/23/19 18 Overview: DME: [facility] # [phone]; fax# [phone] Lumbago 09/10/2007 04/23/2017 Sprain of neck 09/10/2007 [...] of this encounter (statuses as of 07/10/2022) [facility]2017 History of Past illness Narrative* Problem Noted Date Resolved Date Dysphagia 05/22/2016 01/21/2017 Ischemic colon 06/02/2012 04/23/2017 Colonic mass 06/02/2012 04/23/2017 Unspecified sleep apnea 01/04/2008 07/23/19 18 Overview: DME: [facility]# [phone]; fax# [phone] Lumbago 09/10/2007 04/23/2017 Sprain of neck 09/10/2007 [...] of this encounter (statuses as of 07/11/2022) [facility]2017 History of Past illness Narrative* Problem Noted Date Resolved Date Dysphagia 05/22/2016 01/21/2017 Ischemic colon 06/02/2012 04/23/2017 Colonic mass 06/02/2012 04/23/2017 Unspecified sleep apnea 01/04/2008 07/23/19 18 Overview: DME: [facility]# [phone]; fax# [phone] Lumbago 09/10/2007 04/23/2017 Sprain of neck 09/10/2007 [...] of this encounter (statuses as of 08/14/2022) [facility]2017 History of Past illness Narrative* Problem Noted Date Resolved Date Dysphagia 05/22/2016 01/21/2017 Ischemic colon 06/02/2012 04/23/2017 Colonic mass 06/02/2012 04/23/2017 Unspecified sleep apnea 01/04/2008 07/23/19 18 Overview: DME: [facility] # [phone]; fax# [phone] Lumbago 09/10/2007 04/23/2017 Sprain of neck 09/10/2007 [...] of this encounter (statuses as of 08/15/2022) [facility]2017 History of Past illness Narrative* Problem Noted Date Resolved Date Dysphagia 05/22/2016 01/21/2017 Ischemic colon 06/02/2012 04/23/2017 Colonic mass 06/02/2012 04/23/2017 Unspecified sleep apnea 01/04/2008 07/23/19 18 Overview: DME: [facility]# [phone]; fax# [phone] Lumbago 09/10/2007 04/23/2017 Sprain of neck 09/10/2007 [...] of this encounter (statuses as of 08/16/2022) [facility]2017 History of Past illness Narrative* Problem Noted Date Resolved Date Dysphagia 05/22/2016 01/21/2017 Ischemic colon 06/02/2012 04/23/2017 Colonic mass 06/02/2012 04/23/2017 Unspecified sleep apnea 01/04/2008 07/23/19 18 Overview: DME: [facility]# [phone]; fax# [phone] Lumbago 09/10/2007 04/23/2017 Sprain of neck 09/10/2007 [...] of this encounter (statuses as of 08/22/2022) [facility]2017 History of Past illness Narrative* Problem Noted Date Resolved Date Dysphagia 05/22/2016 01/21/2017 Ischemic colon 06/02/2012 04/23/2017 Colonic mass 06/02/2012 04/23/2017 Unspecified sleep apnea 01/04/2008 07/23/19 18 Overview: DME: [facility] # [phone]; fax# [phone] Lumbago 09/10/2007 04/23/2017 Sprain of neck 09/10/2007 [...] of this encounter (statuses as of 08/22/2022) [facility]2017 History of Past illness Narrative* Problem Noted Date Resolved Date Dysphagia 05/22/2016 01/21/2017 Ischemic colon 06/02/2012 04/23/2017 Colonic mass 06/02/2012 04/23/2017 Unspecified sleep apnea 01/04/2008 07/23/19 18 Overview: DME: [facility]# [phone]; fax# [phone] Lumbago 09/10/2007 04/23/2017 Sprain of neck 09/10/2007 [...] of this encounter (statuses as of 08/23/2022) [facility]2017 History of Past illness Narrative* Problem Noted Date Resolved Date Dysphagia 05/22/2016 01/21/2017 Ischemic colon 06/02/2012 04/23/2017 Colonic mass 06/02/2012 04/23/2017 Unspecified sleep apnea 01/04/2008 07/23/19 18 Overview: DME: [facility]# [phone]; fax# [phone] Lumbago 09/10/2007 04/23/2017 Sprain of neck 09/10/2007 [...] of this encounter (statuses as of 08/26/2022) [facility]2017 History of Past illness Narrative* Problem Noted Date Diagnosed Date Resolved Date Dysphagia 05/22/2016 01/21/2017 Ischemic colon 06/02/2012 04/23/2017 Colonic mass 06/02/2012 04/23/2017 Unspecified sleep apnea 01/04/200807/01 Overview: DME: [facility]# [phone]; fax# [phone] Lumbago 09/10/2007 04/23/2017 Sprain of neck 09/10/2007 [...] of this encounter (statuses as of 09/07/2022) [facility]2017 History of Past illness Narrative* Problem Noted Date Diagnosed Date Resolved Date Dysphagia 05/22/2016 01/21/2017 Ischemic colon 06/02/2012 04/23/2017 Colonic mass 06/02/2012 04/23/2017 Unspecified sleep apnea 01/04/200807/01 Overview: DME: [facility]# [phone]; fax# [phone] Lumbago 09/10/2007 04/23/2017 Sprain of neck 09/10/2007 [...] of this encounter (statuses as of 09/09/2022) [facility]2017 History of Past illness Narrative* Problem Noted Date Diagnosed Date Resolved Date Dysphagia 05/22/2016 01/21/2017 Ischemic colon 06/02/2012 04/23/2017 Colonic mass 06/02/2012 04/23/2017 Unspecified sleep apnea 01/04/200807/01 Overview: DME: [facility] # [phone]; fax# [phone] Lumbago 09/10/2007 04/23/2017 Sprain of neck 09/10/2007 [...] of this encounter (statuses as of 09/26/2022) [facility]2017 History of Past illness Narrative* Problem Noted Date Diagnosed Date Resolved Date Dysphagia 05/22/2016 01/21/2017 Ischemic colon 06/02/2012 04/23/2017 Colonic mass 06/02/2012 04/23/2017 Unspecified sleep apnea 01/04/200807/01 Overview: DME: [facility]# [phone]; fax# [phone] Lumbago 09/10/2007 04/23/2017 Sprain of neck 09/10/2007 [...] of this encounter (statuses as of 09/26/2022) [facility]2017 History of Past illness Narrative* Problem Noted Date Diagnosed Date Resolved Date Dysphagia 05/22/2016 01/21/2017 Ischemic colon 06/02/2012 04/23/2017 Colonic mass 06/02/2012 04/23/2017 Unspecified sleep apnea 01/04/200807/01 Overview: DME: [facility]# [phone]; fax# [phone] Lumbago 09/10/2007 04/23/2017 Sprain of neck 09/10/2007 [...] of this encounter (statuses as of 10/01/2022) [facility]2017 History of Past illness Narrative* Problem Noted Date Diagnosed Date Resolved Date Dysphagia 05/22/2016 01/21/2017 Ischemic colon 06/02/2012 04/23/2017 Colonic mass 06/02/2012 04/23/2017 Unspecified sleep apnea 01/04/200807/01 Overview: DME: [facility] # [phone]; fax# [phone] Lumbago 09/10/2007 04/23/2017 Sprain of neck 09/10/2007 [...] of this encounter (statuses as of 10/08/2022) [facility]2017 History of Past illness Narrative* Problem Noted Date Diagnosed Date Resolved Date Dysphagia 05/22/2016 01/21/2017 Ischemic colon 06/02/2012 04/23/2017 Colonic mass 06/02/2012 04/23/2017 Unspecified sleep apnea 01/04/200807/01 Overview: DME: [facility]# [phone]; fax# [phone] Lumbago 09/10/2007 04/23/2017 Sprain of neck 09/10/2007 [...] of this encounter (statuses as of 10/08/2022) [facility]2017 History of Past illness Narrative* Problem Noted Date Diagnosed Date Resolved Date Dysphagia 05/22/2016 01/21/2017 Ischemic colon 06/02/2012 04/23/2017 Colonic mass 06/02/2012 04/23/2017 Unspecified sleep apnea 01/04/200807/01 Overview: DME: [facility]# [phone]; fax# [phone] Lumbago 09/10/2007 04/23/2017 Sprain of neck 09/10/2007 [...] of this encounter (statuses as of 10/15/2022) [facility]2017 History of Past illness Narrative* Problem Noted Date Diagnosed Date Resolved Date Dysphagia 05/22/2016 01/21/2017 Ischemic colon 06/02/2012 04/23/2017 Colonic mass 06/02/2012 04/23/2017 Unspecified sleep apnea 01/04/200807/01 Overview: DME: [facility] # [phone]; fax# [phone] Lumbago 09/10/2007 04/23/2017 Sprain of neck 09/10/2007 [...] of this encounter (statuses as of 10/21/2022) [facility]2017 History of Past illness Narrative* Problem Noted Date Diagnosed Date Resolved Date Dysphagia 05/22/2016 01/21/2017 Ischemic colon 06/02/2012 04/23/2017 Colonic mass 06/02/2012 04/23/2017 Unspecified sleep apnea 01/04/200807/01 Overview: DME: [facility]# [phone]; fax# [phone] Lumbago 09/10/2007 04/23/2017 Sprain of neck 09/10/2007 [...] of this encounter (statuses as of 10/22/2022) [facility]2017 History of Past illness Narrative* Problem Noted Date Diagnosed Date Resolved Date Dysphagia 05/22/2016 01/21/2017 Ischemic colon 06/02/2012 04/23/2017 Colonic mass 06/02/2012 04/23/2017 Unspecified sleep apnea 01/04/200807/01 Overview: DME: [facility]# [phone]; fax# [phone] Lumbago 09/10/2007 04/23/2017 Sprain of neck 09/10/2007 [...] of this encounter (statuses as of 10/23/2022) [facility]2017 History of Past illness Narrative* Problem Noted Date Diagnosed Date Resolved Date Dysphagia 05/22/2016 01/21/2017 Ischemic colon 06/02/2012 04/23/2017 Colonic mass 06/02/2012 04/23/2017 Unspecified sleep apnea 01/04/200807/01 Overview: DME: [facility] # [phone]; fax# [phone] Lumbago 09/10/2007 04/23/2017 Sprain of neck 09/10/2007 [...] of this encounter (statuses as of 10/23/2022) [facility]2017 History of Past illness Narrative* Problem Noted Date Diagnosed Date Resolved Date Dysphagia 05/22/2016 01/21/2017 Ischemic colon 06/02/2012 04/23/2017 Colonic mass 06/02/2012 04/23/2017 Unspecified sleep apnea 01/04/200807/01 Overview: DME: [facility]# [phone]; fax# [phone] Lumbago 09/10/2007 04/23/2017 Sprain of neck 09/10/2007 [...] of this encounter (statuses as of 10/25/2022) [facility]2017 History of Past illness Narrative* Problem Noted Date Diagnosed Date Resolved Date Dysphagia 05/22/2016 01/21/2017 Ischemic colon 06/02/2012 04/23/2017 Colonic mass 06/02/2012 04/23/2017 Unspecified sleep apnea 01/04/200807/01 Overview: DME: [facility]# [phone]; fax# [phone] Lumbago 09/10/2007 04/23/2017 Sprain of neck 09/10/2007 [...] of this encounter (statuses as of 10/30/2022) [facility]2017 History of Past illness Narrative* Problem Noted Date Diagnosed Date Resolved Date Dysphagia 05/22/2016 01/21/2017 Ischemic colon 06/02/2012 04/23/2017 Colonic mass 06/02/2012 04/23/2017 Unspecified sleep apnea 01/04/200807/01 Overview: DME: [facility] # [phone]; fax# [phone] Lumbago 09/10/2007 04/23/2017 Sprain of neck 09/10/2007 [...] of this encounter (statuses as of 11/05/2022) [facility]2017 History of Past illness Narrative* Problem Noted Date Diagnosed Date Resolved Date Dysphagia 05/22/2016 01/21/2017 Ischemic colon 06/02/2012 04/23/2017 Colonic mass 06/02/2012 04/23/2017 Unspecified sleep apnea 01/04/200807/01 Overview: DME: [facility]# [phone]; fax# [phone] Lumbago 09/10/2007 04/23/2017 Sprain of neck 09/10/2007 [...] of this encounter (statuses as of 11/10/2022) [facility]2017 History of Past illness Narrative* Problem Noted Date Diagnosed Date Resolved Date Dysphagia 05/22/2016 01/21/2017 Ischemic colon 06/02/2012 04/23/2017 Colonic mass 06/02/2012 04/23/2017 Unspecified sleep apnea 01/04/200807/01 Overview: DME: [facility]# [phone]; fax# [phone] Lumbago 09/10/2007 04/23/2017 Sprain of neck 09/10/2007 [...] of this encounter (statuses as of 11/12/2022) [facility]2017 History of Past illness Narrative* Problem Noted Date Diagnosed Date Resolved Date Dysphagia 05/22/2016 01/21/2017 Ischemic colon 06/02/2012 04/23/2017 Colonic mass 06/02/2012 04/23/2017 Unspecified sleep apnea 01/04/200807/01 Overview: DME: [facility] # [phone]; fax# [phone] Lumbago 09/10/2007 04/23/2017 Sprain of neck 09/10/2007 [...] of this encounter (statuses as of 11/17/2022) [facility]2017 History of Past illness Narrative* Problem Noted Date Diagnosed Date Resolved Date Dysphagia 05/22/2016 01/21/2017 Ischemic colon 06/02/2012 04/23/2017 Colonic mass 06/02/2012 04/23/2017 Unspecified sleep apnea 01/04/200807/01 Overview: DME: [facility]# [phone]; fax# [phone] Lumbago 09/10/2007 04/23/2017 Sprain of neck 09/10/2007 [...] of this encounter (statuses as of 11/18/2022) [facility]2017 History of Past illness Narrative* Problem Noted Date Diagnosed Date Resolved Date Dysphagia 05/22/2016 01/21/2017 Ischemic colon 06/02/2012 04/23/2017 Colonic mass 06/02/2012 04/23/2017 Unspecified sleep apnea 01/04/200807/01 Overview: DME: [facility]# [phone]; fax# [phone] Lumbago 09/10/2007 04/23/2017 Sprain of neck 09/10/2007 [...] of this encounter (statuses as of 11/18/2022) [facility]2017 History of Past illness Narrative* Problem Noted Date Diagnosed Date Resolved Date Dysphagia 05/22/2016 01/21/2017 Ischemic colon 06/02/2012 04/23/2017 Colonic mass 06/02/2012 04/23/2017 Unspecified sleep apnea 01/04/200807/01 Overview: DME: [facility]# [phone]; fax# [phone] Lumbago 09/10/2007 04/23/2017 Sprain of neck 09/10/2007 [...] of this encounter (statuses as of 11/19/2022) [facility]2017 History of Past illness Narrative* Problem Noted Date Diagnosed Date Resolved Date Dysphagia 05/22/2016 01/21/2017 Ischemic colon 06/02/2012 04/23/2017 Colonic mass 06/02/2012 04/23/2017 Unspecified sleep apnea 01/04/200807/01 Overview: DME: [facility]# [phone]; fax# [phone] Lumbago 09/10/2007 04/23/2017 Sprain of neck 09/10/2007 [...] of this encounter (statuses as of 11/20/2022) [facility]2017 History of Past illness Narrative* Problem Noted Date Diagnosed Date Resolved Date Dysphagia 05/22/2016 01/21/2017 Ischemic colon 06/02/2012 04/23/2017 Colonic mass 06/02/2012 04/23/2017 Unspecified sleep apnea 01/04/200807/01 Overview: DME: [facility] # [phone]; fax# [phone] Lumbago 09/10/2007 04/23/2017 Sprain of neck 09/10/2007 [...] of this encounter (statuses as of 11/28/2022) [facility]2017 History of Past illness Narrative* Problem Noted Date Diagnosed Date Resolved Date Dysphagia 05/22/2016 01/21/2017 Ischemic colon 06/02/2012 04/23/2017 Colonic mass 06/02/2012 04/23/2017 Unspecified sleep apnea 01/04/200807/01 Overview: DME: [facility]# [phone]; fax# [phone] Lumbago 09/10/2007 04/23/2017 Sprain of neck 09/10/2007 [...] of this encounter (statuses as of 11/29/2022) [facility] History of Past illness Narrative* Problem Noted Date Diagnosed Date Resolved Date Dysphagia 05/22/2016 01/21/2017 Ischemic colon 06/02/2012 04/23/2017 Colonic mass 06/02/2012 04/23/2017 Unspecified sleep apnea 01/04/200807/01 Overview: DME: [facility]# [phone]; fax# [phone] Lumbago 09/10/2007 04/23/2017 Sprain of neck 09/10/2007 [...] of this encounter (statuses as of 11/29/2022) [facility] History of Past illness Narrative* Problem Noted Date Diagnosed Date Resolved Date Dysphagia 05/22/2016 01/21/2017 Ischemic colon 06/02/2012 04/23/2017 Colonic mass 06/02/2012 04/23/2017 Unspecified sleep apnea 01/04/200807/01 Overview: DME: [facility] # [phone]; fax# [phone] Lumbago 09/10/2007 04/23/2017 Sprain of neck 09/10/2007 [...] of this encounter (statuses as of 12/09/2022) [facility] History of Past illness Narrative* Problem Noted Date Diagnosed Date Resolved Date Dysphagia 05/22/2016 01/21/2017 Ischemic colon 06/02/2012 04/23/2017 Colonic mass 06/02/2012 04/23/2017 Unspecified sleep apnea 01/04/200807/01 Overview: DME: [facility]# [phone]; fax# [phone] Lumbago 09/10/2007 04/23/2017 Sprain of neck 09/10/2007 [...] of this encounter (statuses as of 12/16/2022) [facility]2017 History of Past illness Narrative* Problem Noted Date Diagnosed Date Resolved Date Dysphagia 05/22/2016 01/21/2017 Ischemic colon 06/02/2012 04/23/2017 Colonic mass 06/02/2012 04/23/2017 Unspecified sleep apnea 01/04/200807/01 Overview: DME: [facility]# [phone]; fax# [phone] Lumbago 09/10/2007 04/23/2017 Sprain of neck 09/10/2007 [...] of this encounter (statuses as of 12/17/2022) [facility]2017 History of Past illness Narrative* Problem Noted Date Diagnosed Date Resolved Date Dysphagia 05/22/2016 01/21/2017 Ischemic colon 06/02/2012 04/23/2017 Colonic mass 06/02/2012 04/23/2017 Unspecified sleep apnea 01/04/200807/01 Overview: DME: [facility] # [phone]; fax# [phone] Lumbago 09/10/2007 04/23/2017 Sprain of neck 09/10/2007 [...] of this encounter (statuses as of 12/18/2022) [facility] History of Past illness Narrative* Problem Noted Date Diagnosed Date Resolved Date Dysphagia 05/22/2016 01/21/2017 Ischemic colon 06/02/2012 04/23/2017 Colonic mass 06/02/2012 04/23/2017 Unspecified sleep apnea 01/04/200807/01 Overview: DME: [facility]# [phone]; fax# [phone] Lumbago 09/10/2007 04/23/2017 Sprain of neck 09/10/2007 [...] of this encounter (statuses as of 12/23/2022) [facility]2017 History of Past illness Narrative* Problem Noted Date Diagnosed Date Resolved Date Dysphagia 05/22/2016 01/21/2017 Ischemic colon 06/02/2012 04/23/2017 Colonic mass 06/02/2012 04/23/2017 Unspecified sleep apnea 01/04/200807/01 Overview: DME: [facility]# [phone]; fax# [phone] Lumbago 09/10/2007 04/23/2017 Sprain of neck 09/10/2007 [...] of this encounter (statuses as of 12/31/2022) [facility] History of Past illness Narrative* Problem Noted Date Diagnosed Date Resolved Date Dysphagia 05/22/2016 01/21/2017 Ischemic colon 06/02/2012 04/23/2017 Colonic mass 06/02/2012 04/23/2017 Unspecified sleep apnea 01/04/200807/01 Overview: DME: [facility] # [phone]; fax# [phone] Lumbago 09/10/2007 04/23/2017 Sprain of neck 09/10/2007 [...] of this encounter (statuses as of 01/04/2023) [facility]2017 History of Past illness Narrative* Problem Noted Date Diagnosed Date Resolved Date Dysphagia 05/22/2016 01/21/2017 Ischemic colon 06/02/2012 04/23/2017 Colonic mass 06/02/2012 04/23/2017 Unspecified sleep apnea 01/04/200807/01 Overview: DME: [facility]# [phone]; fax# [phone] Lumbago 09/10/2007 04/23/2017 Sprain of neck 09/10/2007 [...] of this encounter (statuses as of 01/04/2023) [facility] History of Past illness Narrative* Problem Noted Date Diagnosed Date Resolved Date Dysphagia 05/22/2016 01/21/2017 Ischemic colon 06/02/2012 04/23/2017 Colonic mass 06/02/2012 04/23/2017 Unspecified sleep apnea 01/04/200807/01 Overview: DME: [facility]# [phone]; fax# [phone] Lumbago 09/10/2007 04/23/2017 Sprain of neck 09/10/2007 [...] of this encounter (statuses as of 01/06/2023) [facility] History of Past illness Narrative* Problem Noted Date Diagnosed Date Resolved Date Dysphagia 05/22/2016 01/21/2017 Ischemic colon 06/02/2012 04/23/2017 Colonic mass 06/02/2012 04/23/2017 Unspecified sleep apnea 01/04/200807/01 Overview: DME: [facility] # [phone]; fax# [phone] Lumbago 09/10/2007 04/23/2017 Sprain of neck 09/10/2007 [...] of this encounter (statuses as of 01/14/2023) [facility] History of Past illness Narrative* Problem Noted Date Diagnosed Date Resolved Date Dysphagia 05/22/2016 01/21/2017 Ischemic colon 06/02/2012 04/23/2017 Colonic mass 06/02/2012 04/23/2017 Unspecified sleep apnea 01/04/200807/01 Overview: DME: [facility]# [phone]; fax# [phone] Lumbago 09/10/2007 04/23/2017 Sprain of neck 09/10/2007 [...] of this encounter (statuses as of 01/28/2023) [facility] History of Past illness Narrative* Problem Noted Date Diagnosed Date Resolved Date Dysphagia 05/22/2016 01/21/2017 Ischemic colon 06/02/2012 04/23/2017 Colonic mass 06/02/2012 04/23/2017 Unspecified sleep apnea 01/04/200807/01 Overview: DME: [facility]# [phone]; fax# [phone] Lumbago 09/10/2007 04/23/2017 Sprain of neck 09/10/2007 [...] of this encounter (statuses as of 01/30/2023) [facility] History of Past illness Narrative* Problem Noted Date Diagnosed Date Resolved Date Dysphagia 05/22/2016 01/21/2017 Ischemic colon 06/02/2012 04/23/2017 Colonic mass 06/02/2012 04/23/2017 Unspecified sleep apnea 01/04/200807/01 Overview: DME: [facility] # [phone]; fax# [phone] Lumbago 09/10/2007 04/23/2017 Sprain of neck 09/10/2007 [...] of this encounter (statuses as of 02/01/2023) [facility] History of Past illness Narrative* Problem Noted Date Diagnosed Date Resolved Date Dysphagia 05/22/2016 01/21/2017 Ischemic colon 06/02/2012 04/23/2017 Colonic mass 06/02/2012 04/23/2017 Unspecified sleep apnea 01/04/200807/01 Overview: DME: [facility]# [phone]; fax# [phone] Lumbago 09/10/2007 04/23/2017 Sprain of neck 09/10/2007 [...] of this encounter (statuses as of 02/05/2023) [facility] History of Past illness Narrative* Problem Noted Date Diagnosed Date Resolved Date Dysphagia 05/22/2016 01/21/2017 Ischemic colon 06/02/2012 04/23/2017 Colonic mass 06/02/2012 04/23/2017 Unspecified sleep apnea 01/04/200807/01 Overview: DME: [facility]# [phone]; fax# [phone] Lumbago 09/10/2007 04/23/2017 Sprain of neck 09/10/2007 [...] of this encounter (statuses as of 02/07/2023) [facility] History of Past illness Narrative* Problem Noted Date Diagnosed Date Resolved Date Dysphagia 05/22/2016 01/21/2017 Ischemic colon 06/02/2012 04/23/2017 Colonic mass 06/02/2012 04/23/2017 Unspecified sleep apnea 01/04/200807/01 Overview: DME: [facility]# [phone]; fax# [phone] Lumbago 09/10/2007 04/23/2017 Sprain of neck 09/10/2007 [...] of this encounter (statuses as of 02/14/2023) [facility] History of Past illness Narrative* Problem Noted Date Diagnosed Date Resolved Date Dysphagia 05/22/2016 01/21/2017 Ischemic colon 06/02/2012 04/23/2017 Colonic mass 06/02/2012 04/23/2017 Unspecified sleep apnea 01/04/200807/01 Overview: DME: [facility]# [phone]; fax# [phone] Lumbago 09/10/2007 04/23/2017 Sprain of neck 09/10/2007 [...] of this encounter (statuses as of 02/20/2023) [facility] History of Past illness Narrative* Problem Noted Date Diagnosed Date Resolved Date Dysphagia 05/22/2016 01/21/2017 Ischemic colon 06/02/2012 04/23/2017 Colonic mass 06/02/2012 04/23/2017 Unspecified sleep apnea 01/04/200807/01 Overview: DME: [facility] # [phone]; fax# [phone] Lumbago 09/10/2007 04/23/2017 Sprain of neck 09/10/2007 [...] of this encounter (statuses as of 02/20/2023) [facility] History of Past illness Narrative* Problem Noted Date Diagnosed Date Resolved Date Dysphagia 05/22/2016 01/21/2017 Ischemic colon 06/02/2012 04/23/2017 Colonic mass 06/02/2012 04/23/2017 Unspecified sleep apnea 01/04/200807/01 Overview: DME: [facility]# [phone]; fax# [phone] Lumbago 09/10/2007 04/23/2017 Sprain of neck 09/10/2007 [...] of this encounter (statuses as of 04/03/2023) [facility] History of Past illness Narrative* Problem Noted Date Diagnosed Date Resolved Date Dysphagia 05/22/2016 01/21/2017 Ischemic colon 06/02/2012 04/23/2017 Colonic mass 06/02/2012 04/23/2017 Unspecified sleep apnea 01/04/200807/01 Overview: DME: [facility]# [phone]; fax# [phone] Lumbago 09/10/2007 04/23/2017 Sprain of neck 09/10/2007 [...] of this encounter (statuses as of 04/14/2023) [facility] History of Past illness Narrative* Problem Noted Date Diagnosed Date Resolved Date Dysphagia 05/22/2016 01/21/2017 Ischemic colon 06/02/2012 04/23/2017 Colonic mass 06/02/2012 04/23/2017 Unspecified sleep apnea 01/04/200807/01 Overview: DME: [facility] # [phone]; fax# [phone] Lumbago 09/10/2007 04/23/2017 Sprain of neck 09/10/2007 [...] of this encounter (statuses as of 04/14/2023) [facility]2017 History of Past illness Narrative* Problem Noted Date Diagnosed Date Resolved Date Dysphagia 05/22/2016 01/21/2017 Ischemic colon 06/02/2012 04/23/2017 Colonic mass 06/02/2012 04/23/2017 Unspecified sleep apnea 01/04/200807/01 Overview: DME: [facility]# [phone]; fax# [phone] Lumbago 09/10/2007 04/23/2017 Sprain of neck 09/10/2007 [...] of this encounter (statuses as of 04/16/2023) [facility]2017 History of Past illness Narrative* Problem Noted Date Diagnosed Date Resolved Date Dysphagia 05/22/2016 01/21/2017 Ischemic colon 06/02/2012 04/23/2017 Colonic mass 06/02/2012 04/23/2017 Unspecified sleep apnea 01/04/200807/01 Overview: DME: [facility]# [phone]; fax# [phone] Lumbago 09/10/2007 04/23/2017 Sprain of neck 09/10/2007 [...] of this encounter (statuses as of 04/23/2023) [facility]2017 History of Past illness Narrative* Problem Noted Date Diagnosed Date Resolved Date Dysphagia 05/22/2016 01/21/2017 Ischemic colon 06/02/2012 04/23/2017 Colonic mass 06/02/2012 04/23/2017 Unspecified sleep apnea 01/04/200807/01 Overview: DME: [facility] # [phone]; fax# [phone] Lumbago 09/10/2007 04/23/2017 Sprain of neck 09/10/2007 [...] of this encounter (statuses as of 04/24/2023) [facility] History of Past illness Narrative* Problem Noted Date Diagnosed Date Resolved Date Dysphagia 05/22/2016 01/21/2017 Ischemic colon 06/02/2012 04/23/2017 Colonic mass 06/02/2012 04/23/2017 Unspecified sleep apnea 01/04/200807/01 Overview: DME: [facility]# [phone]; fax# [phone] Lumbago 09/10/2007 04/23/2017 Sprain of neck 09/10/2007 [...] of this encounter (statuses as of 04/30/2023) [facility] History of Past illness Narrative* Problem Noted Date Diagnosed Date Resolved Date Dysphagia 05/22/2016 01/21/2017 Ischemic colon 06/02/2012 04/23/2017 Colonic mass 06/02/2012 04/23/2017 Unspecified sleep apnea 01/04/200807/01 Overview: DME: [facility]# [phone]; fax# [phone] Lumbago 09/10/2007 04/23/2017 Sprain of neck 09/10/2007 [...] of this encounter (statuses as of 05/01/2023) [facility] History of Past illness Narrative* Problem Noted Date Diagnosed Date Resolved Date Dysphagia 05/22/2016 01/21/2017 Ischemic colon 06/02/2012 04/23/2017 Colonic mass 06/02/2012 04/23/2017 Unspecified sleep apnea 01/04/200807/01 Overview: DME: [facility] # [phone]; fax# [phone] Lumbago 09/10/2007 04/23/2017 Sprain of neck 09/10/2007 [...] of this encounter (statuses as of 05/01/2023) [facility] History of Past illness Narrative* Problem Noted Date Diagnosed Date Resolved Date Dysphagia 05/22/2016 01/21/2017 Ischemic colon 06/02/2012 04/23/2017 Colonic mass 06/02/2012 04/23/2017 Unspecified sleep apnea 01/04/200807/01 Overview: DME: [facility]# [phone]; fax# [phone] Lumbago 09/10/2007 04/23/2017 Sprain of neck 09/10/2007 [...] of this encounter (statuses as of 05/04/2023) [facility] History of Past illness Narrative* Problem Noted Date Diagnosed Date Resolved Date Dysphagia 05/22/2016 01/21/2017 Ischemic colon 06/02/2012 04/23/2017 Colonic mass 06/02/2012 04/23/2017 Unspecified sleep apnea 01/04/200807/01 Overview: DME: [facility]# [phone]; fax# [phone] Lumbago 09/10/2007 04/23/2017 Sprain of neck 09/10/2007 [...] of this encounter (statuses as of 05/04/2023) [facility] History of Past illness Narrative* Problem Noted Date Diagnosed Date Resolved Date Dysphagia 05/22/2016 01/21/2017 Ischemic colon 06/02/2012 04/23/2017 Colonic mass 06/02/2012 04/23/2017 Unspecified sleep apnea 01/04/200807/01 Overview: DME: [facility] # [phone]; fax# [phone] Lumbago 09/10/2007 04/23/2017 Sprain of neck 09/10/2007 [...] of this encounter (statuses as of 05/04/2023) [facility] History of Past illness Narrative* Problem Noted Date Diagnosed Date Resolved Date Dysphagia 05/22/2016 01/21/2017 Ischemic colon 06/02/2012 04/23/2017 Colonic mass 06/02/2012 04/23/2017 Unspecified sleep apnea 01/04/200807/01 Overview: DME: [facility]# [phone]; fax# [phone] Lumbago 09/10/2007 04/23/2017 Sprain of neck 09/10/2007 [...] of this encounter (statuses as of 05/11/2023) [facility] History of Past illness Narrative* Problem Noted Date Diagnosed Date Resolved Date Dysphagia 05/22/2016 01/21/2017 Ischemic colon 06/02/2012 04/23/2017 Colonic mass 06/02/2012 04/23/2017 Unspecified sleep apnea 01/04/200807/01 Overview: DME: [facility]# [phone]; fax# [phone] Lumbago 09/10/2007 04/23/2017 Sprain of neck 09/10/2007 [...] of this encounter (statuses as of 05/13/2023) [facility] History of Past illness Narrative* Problem Noted Date Diagnosed Date Resolved Date Dysphagia 05/22/2016 01/21/2017 Ischemic colon 06/02/2012 04/23/2017 Colonic mass 06/02/2012 04/23/2017 Unspecified sleep apnea 01/04/200807/01 Overview: DME: [facility] # [phone]; fax# [phone] Lumbago 09/10/2007 04/23/2017 Sprain of neck 09/10/2007 [...] of this encounter (statuses as of 05/14/2023) [facility] History of Past illness Narrative* Problem Noted Date Diagnosed Date Resolved Date Dysphagia 05/22/2016 01/21/2017 Ischemic colon 06/02/2012 04/23/2017 Colonic mass 06/02/2012 04/23/2017 Unspecified sleep apnea 01/04/200807/01 Overview: DME: [facility]# [phone]; fax# [phone] Lumbago 09/10/2007 04/23/2017 Sprain of neck 09/10/2007 [...] of this encounter (statuses as of 05/14/2023) [facility] History of Past illness Narrative* Problem Noted Date Diagnosed Date Resolved Date Dysphagia 05/22/2016 01/21/2017 Ischemic colon 06/02/2012 04/23/2017 Colonic mass 06/02/2012 04/23/2017 Unspecified sleep apnea 01/04/200807/01 Overview: DME: [facility]# [phone]; fax# [phone] Lumbago 09/10/2007 04/23/2017 Sprain of neck 09/10/2007 [...] of this encounter (statuses as of 05/15/2023) [facility] History of Past illness Narrative* Problem Noted Date Diagnosed Date Resolved Date Dysphagia 05/22/2016 01/21/2017 Ischemic colon 06/02/2012 04/23/2017 Colonic mass 06/02/2012 04/23/2017 Unspecified sleep apnea 01/04/200807/01 Overview: DME: [facility]# [phone]; fax# [phone] Lumbago 09/10/2007 04/23/2017 Sprain of neck 09/10/2007 [...] of this encounter (statuses as of 05/22/2023) [facility] History of Past illness Narrative* Problem Noted Date Diagnosed Date Resolved Date Dysphagia 05/22/2016 01/21/2017 Ischemic colon 06/02/2012 04/23/2017 Colonic mass 06/02/2012 04/23/2017 Unspecified sleep apnea 01/04/200807/01 Overview: DME: [facility]# [phone]; fax# [phone] Lumbago 09/10/2007 04/23/2017 Sprain of neck 09/10/2007 [...] of this encounter (statuses as of 05/25/2023) [facility] History of Past illness Narrative* Problem Noted Date Diagnosed Date Resolved Date Dysphagia 05/22/2016 01/21/2017 Ischemic colon 06/02/2012 04/23/2017 Colonic mass 06/02/2012 04/23/2017 Unspecified sleep apnea 01/04/200807/01 Overview: DME: [facility] # [phone]; fax# [phone] Lumbago 09/10/2007 04/23/2017 Sprain of neck 09/10/2007 [...] of this encounter (statuses as of 06/12/2023) [facility] History of Past illness Narrative* Problem Noted Date Diagnosed Date Resolved Date Dysphagia 05/22/2016 01/21/2017 Ischemic colon 06/02/2012 04/23/2017 Colonic mass 06/02/2012 04/23/2017 Unspecified sleep apnea 01/04/200807/01 Overview: DME: [facility]# [phone]; fax# [phone] Lumbago 09/10/2007 04/23/2017 Sprain of neck 09/10/2007 [...] of this encounter (statuses as of 06/12/2023) [facility] History of Past illness Narrative* Problem Noted Date Diagnosed Date Resolved Date Dysphagia 05/22/2016 01/21/2017 Ischemic colon 06/02/2012 04/23/2017 Colonic mass 06/02/2012 04/23/2017 Unspecified sleep apnea 01/04/200807/01 Overview: DME: [facility]# [phone]; fax# [phone] Lumbago 09/10/2007 04/23/2017 Sprain of neck 09/10/2007 [...] of this encounter (statuses as of 06/19/2023) [facility] Eric Salazar [facility] Note Date/Time November 30, 2024 7: 51am [facility] Medical Records Department [address] [place] [address] Consultation - GI 11/30/24 0746 MR#: [id number] Acct: [id number] Name: MERNA WEBSTER Rep #:[id number] : 1940 84 From: Eric Salazar DO PCP: Dr. Сергей Espinoza MD Status:A DM IN Location: [place] [address] HPI Consult Data Date of Consult: 11/30/24 HPI Narrative Reason for Consultation: GI bleed HPI Narrative: MERNA WEBSTER, is a 84 F who presented to the ED with lower GI bleeding. She has a past medical history of pulmonary fibrosis on 3 L of O2 chronically, hypertension, hypothyroidism, GERD, anxiety who presented [facility] ED 11/27/2024 with rectal bleeding. She admits to recently constipated and passed hard stool and then this morning noticed she had bright red blood per rectum. She had to wipe multiple times butthe bleeding lessened however due to the blood skilled nursing wanted to send her to the ED however she wanted to wait but then she had another bowel movement with bright red blood mixed in. Reported feeling little lightheaded but no other acute complaints. In the ED temp 97.8, heart rate 72, blood pressure 135/67, respiratory 18 pulse ox 100% on 3 L nasal cannula. She did have positive orthostats with blood pressure 131/63 down to 109/57 on standing. CBC with white count 6.5 and hemoglobin 8.5 similar to CBC in August of this year BMP with a sodium of 132, bicarb 33, BUN of 12 and a creatinine of 0.82. Patient had no further episodes in the ED but she did have anoscopy which showed large clot with some amount of blood above the scope. I was asked to see her for lower GI bleeding [facility] Medical History Migraine Psoriasis Depression Osteoporosis Primary insomnia Hyperlipidemia Hypothyroidism Obstructive sleep apnea (adult) (pediatric) Mild persistent asthma, uncomplicated Unspecified abnormalities of gait and mobility Difficulty in walking, not elsewhere classified Muscle wasting and atrophy, not elsewhere classified, left lower leg Muscle wasting and atrophy, not elsewhere classified, right lower leg Chronic respiratory failure with hypoxia Seasonal allergies Anemia High cholesterol GERD (gastroesophageal reflux disease) HTN (hypertension) Anxiety Pulmonary fibrosis Home Medications ?Medication ?Instructions ?Recorded ?Last Taken ?Type acetaminophen 500 mg tablet 500 mg PO Q6H PRN fever or pain 11/03/24 Unknown History (Tylenol Extra Strength) albuterol sulfate 90 mcg/actuation 2 puff inhalation Q 6H PRN 11/03/24 Unknown History aerosol inhaler (Ventolin HFA) shortness of breath or wheezing famotidine 20 mg tablet 20 mg PO QDAY 11/03/2411/27 History fexofenadine 180 mg tablet 180 mg PO QDAY PRN allergy symptoms 11/03/24 Unknown History gabapentin 100 mg capsule 100 mg PO TID 11/03/2411/27 06:00 History guaifenesin 600 mg tablet, 600 mg PO DAILY 11/03/24 History extended release 12 hr (Mucinex) levothyroxine 75 mcg tablet 37.5 mcg PO QDAY 11/03/24 11/27/24 History (Levo-T) magnesium hydroxide 400 mg/5 mL 30 ml PO ONCE PRN stom ach upset 11/03/24 Unknown History oral suspension (Milk of Magnesia) nortriptyline 50 mg capsule 100 mg PO QHS 11/03/24 History ondansetron 4 mg disintegrating 4 mg PO Q6H PRN nausea and vomiting 11/03/24 Unknown History tablet pantoprazole 40 mg tablet,delayed 40 mg PO Q12H 11/27/24 10:00 History release pravastatin 40 mg tablet 40 mg PO QDAY 11/03/2411/26 History psyllium husk 2.6 gram/4.1 gram 1 tbsp PO ONCE 5 11/27/24 History oral powder sennosides 8.6 mg tablet (senna) 8.6 mg PO QDAY 11/27/24 History sumatriptan succinate 100 mg tablet See Rx Instruction s PO .COMPLEX 11/03/24 11/26/24 History verapamil 240 mg 24 hr 240 mg PO BID 11/03/2411/27 History capsule,extended release alprazolam 1 mg tablet 1 mg PO TID anxiety 30 days #90 11/25/24 11/27/24 06:00 Rx tabs clonidine 0.2 mg/24 hr weekly 1 patch topical QWEEK Unknown History transdermal patch gabapentin 100 mg capsule 200 mg PO QHS 11/27/2411/26 History hydralazine 25 mg tablet 25 mg PO Q8H PRN sbp>150 Unknown History lidocaine HCl 4 % topical cream 1 applic topical .COMP JOSE pain 11/27/24 11/26/24 History (Aspercreme (lidocaine HCl)) metoprolol succinate 25 mg 25 mg PO DAILY 11/27/24 History tablet,extended release 24 hr mometasone 200 mcg/actuation HFA 2 puff inhalation BID 11/27/24 11/27/24 History aerosol inhaler (Asmanex HFA) natural ears 1 gtt EACH EAR QHS PRN ear p ain 11/27/24 Unknown History pirfenidone 801 mg tablet 801 mg PO TID 11/27/2411/27 06:00 History OXYGEN - Supplemental ([facility] 11/28/24 Unknown History INFORMATIONAL USE ONLY) Allergy/AdvReac Type Severity Reaction Status Date / Time amoxicillin Allergy Mild PT UNSURE Verified 11/27/24 15:00 OF REACTION aspirin Allergy Mild PALPITATION Verified 11/27/24 15:00 S ibuprofen Allergy Mild Swelling Verified 11/27/24 15:00 montelukast Allergy Mild Rash Verified 11/27/24 15:00 rofecoxib Allergy Mild Itching Verified 11/27/24 15:00 Sulfa (Sulfonamide Allergy Mild Rash Verified 11/27/24 15:00 Antibiotics) doxycycline AdvReac Mild GI UPSET Verified 11/27/24 15:00 lisinopril AdvReac Mild GI UPSET Verified 11/27/24 15:00 sertraline AdvReac Mild Diarrhea Verified 11/27/24 15:00 Social History Smoking Status: Never smoker ROS Constitutional Constitutional: Denies fatigue, fever(s), poor appetite, weight gain or weight loss Gastrointestinal Gastrointestinal: Denies belching, bloating, change in bowel habits, change in stool character, chewing difficulty, coffee ground emesis, constipation, cramping, diarrhea, dyspepsia, dysphagia, early satiety, excessive flatus, fecalincontinence, heartburn, hematemesis, hematochezia, hemorrhoids, loose stools, melena, nausea, odynophagia, rectal bleeding, tenesmus, vomiting or weight changes Physical Exam Const alert, oriented x3, no apparent distress and healthy appearing General Appearance: cooperative GI normal to inspection, nondistended, normoactive bowel sounds, soft to palpation,non-tender and non-distended Percussion: normal to percussion Rectal Exam: deferred Lab / Micro Data 11/30/24 03:55 11/30/24 03:55 Labs: Laboratory Results - last 24 hr 11/30/24 03:55: WBC 8.6, RBC 2.63 L, Hgb 8.1 L, Hct 26.0 L, MCV 98.9, MCH 30.8, MCHC 31.2 L, RDW Std Deviation 45.5 H, RDW Coeff of Francisca 12.5, Plt Count 191, MPV9.4, Immature Gran % (Auto) 0.200, Neut % (Auto) 67.9, Lymph % (Auto) 15.3 L, Monona % (Auto) 8.6, Eos % (Auto) 7.5 H, Baso % (Auto) 0.5, Absolute Neuts (auto) 5.8, Absolute Lymphs (auto) 1.31, Nucleated RBC % 0, PT 13.2, INR 1.0, APTT 26.3, Sodium 139, Potassium 4.0, Chloride 100, Carbon Dioxide 30.8, Anion Gap 8,BUN 11, Creatinine 0.48 L, Estim Creat Clear Calc 42.14 L, Est GFR (MDRD) Non-Af94, BUN/Creatinine Ratio 22.3 H, Glucose 90, Calcium 8.9, TSH 2.440 Assessment & Plan Assessment/Plan (1) Bright red blood per rectum: (2) Anemia: PLAN: Assessment Lower GI Bleeding:?Acute, painless bleeding in an elderly patient. Pulmonary Fibrosis:?Chronic respiratory condition requiring oxygen. Anemia:?Chronic, likely exacerbated by acute blood loss. * Differential Diagnosis for Painless Lower GI Bleeding in the Elderly: * Diverticulosis:?Most common cause of painless lower GI bleeding, especially in the elderly. Bleeding is typically abrupt and can be substantial. * Angiodysplasia (Vascular Ectasias):?Degenerative vascular lesions that are also common in the elderly and a frequent cause of painless, recurrent bleeding. * Colonic Neoplasm:?Colon cancer or polyps can cause painless, intermittent bleeding, although it's more commonly occult. Given the family history, this remains a significant concern. * Hemorrhoids:?Common cause of mild bleeding, but less likely to cause the volume of bleeding described. * Other causes:?Less common etiologies include ischemic colitis (usually has pain), post-polypectomy bleeding, and ulcers. Plan Disposition:?Given the patient's age, comorbidities, and potentially significant blood loss (indicated by maroon stools and clots), she required admission to the hospital for further evaluation and management. Diagnostics: * Colonoscopy:?Urgent colonoscopy is the preferred initial diagnostic and therapeutic tool for a hemodynamically stable patient with lower GI bleeding. * CTA (Computed Tomography Angiography):?May be considered if bleeding is brisk and ongoing, to localize the bleeding source. * Upper Endoscopy:?If colonoscopy is negative, an upper endoscopy should be performed to rule out a brisk upper GI bleed presenting as lower GI bleeding. Inpatient versus outpatient Charges/Coding Visit Charges Inpatient E&M: 15176 Init Hosp L3 11/30/24 0751 <Electronically signed by Eric Friend DO> Cosigner Signature (if applicable): CC: Dr. Сергей Espinoza MD~ Signed [facility] Work Phone: Consult note Author Hero Valladares [facility] Note Date/Time November 30, 2024 7: 59am [facility] Medical Records Department [address] [place] [address] Pre-Anesthesia Evaluation 11/30/24 0750 MR#: [id number] Acct: [id number] Name: MERNA WEBSTER Rep #:[id number] : 1940 84 From: Hero Dolan PCP: Dr. Сергей Espinoza MD Status:A DM IN Y Race: C Location: [place] [address] ASA Classification* ASA Classification ASA Classification: 4 Assessment & Plan Anesthesia* Anesthesia Assessment Anesthesia Assessment: Discussed sedation and/or anesthesia options, risks, benefits, and alternatives with patient/parents/legal guardian/POA. Questions invited. The patient/parents/legal guardian/POA seems to understand and agrees to proceedwith anesthesia plan. Reviewed the physical assessment, medical history, allergy history and patient home medications list prior to surgery/procedure/anesthetic and documented any changes. Performed airway and anesthesia risk assessments. Procedural Plan Add'l anesthesia plan details: Active GI bleed Anesthesia Type Anesthesia Type: MAC History Source History Obtained from:: Patient and Chart Anesthesia Focused Assessment* Temperature: 97.7 F Pulse Rate: 69 Blood Pressure: 132/65 Respiratory Rate: 16 Pulse Ox: 93 Oxygen Delivery Method: Nasal Cannula Oxygen Flow Rate (L/min): 3 Airway Assessment Mouth opens: >3 cm Mallampati Score: II Labs Anesthesia Preop lab: CBC WBC, (4.4-11.0) 8.6 K/mm3 Today, 03:55 RBC, (4.2-5.4) 2.63 M/mm3 L Today, 03:55 Hgb, (12.0-15.0) 8.1 g/dL L Today, 03:55 Hct, (37-47) 26.0 % L Today, 03:55 Plt Count, (150-450) 191 K/mm3 Today, 03:55 CHEMISTRY Potassium, (3.3-5.1) 4.0 mmol/L Today, 03:55 Sodium, (133-145) 139 mmol/L Today, 03:55 BUN, (4-19) 11 mg/dL Today, 03:55 Creatinine, (0.70-1.20) 0.48 mg/dL L Today, 03:55 Glucose, (70-99) 90 mg/dL Today, 03:55 TSH, (0.300-4.200) 2.440 uIU/mL Today, 03:55 COAG PT, (11.7-14.9) 13.2 SECONDS Today, 03:55 Pre-Assessment Diagnosis/Proposed Procedure Planned Operative Procedure(s): Colonoscopy Anesthesia History Anesthesia History - physical therapy aid: Anesthesia History - physical therapy aid Hx Hospitalization Any Problems With Anesthesia No 11/29/24 20:07 Cholinesterase deficiency No 11/29/24 20:07 You/Your Family Experience No 11/29/24 20:07 fever (hyperthermia) with Relationship Recent Exposure to Contagious No 11/29/24 20:07 Disease Does patient have nerve No 11/29/24 20:07 stimulator Patient instructed to have No 11/29/24 20:07 device shut off --Does patient have Pacemaker No 11/29/24 20:07 or ICD? When Was Last Pacemaker Check QUESTION #4 FULL TEXT: You/Your Family Experience fever (hyperthermia) with Anesthesia Last Oral Intake Last Oral intake: Last Oral Intake NPO since 00:00 11/29/24 20:07 Meds taken in AM with sips of Yes 11/29/24 20:07 water? Meds patient instructed to Tylenol 11/29/24 20:07 take am of surgery PONV PONV - physical therapy aid: PONV - physical therapy aid Female HX of Motion Sickness HX of N/V After Surgery Non-Smoker Duration of Surgery greater than 60 minutes Number of Risk Factors PONV Score Height & Weight Height & Weight: Anesthesia: Height & Weight Height 5 ft 2 in 11/29/24 20:07 Weight: 59.8 kg 11/29/24 20:07 Body Mass Index (BMI) 24.0 11/29/24 20:07 Respiratory Assessment Respiratory Assessment - physical therapy aid: Respiratory Tract Infection Hx - physical therapy aid Hx Respiratory Tract Infection No 11/29/24 20:07 STOP Sleep Apnea STOP Sleep Apnea - physical therapy aid: STOP Sleep Apnea - physical therapy aid Hx Hypertension Yes 11/27/24 17:57 Hx Sleep Apnea Yes 11/27/24 17:57 CPAP Yes: does not use 11/27/24 17:57 BIPAP No 11/27/24 17:57 Do you snore loudly (louder than talking or can be heard Do you often feel tired/ fatigued/ sleepy during daytime? Has anyone observed you stop breathing during sleep? STOP Results Positive 11/27/24 17:57 QUESTION #5 FULL TEXT : Do you snore loudly (louder than talking or can be heard through closed doors)? Tobacco Use History Tobacco Use History - physical therapy aid: Tobacco Use History - physical therapy aid Tobacco Use Smoking Status Never smoker 11/27/24 17:57 Hx Tobacco Use No 11/27/24 17:57 Years Smoking Packs Smoked per Day Smoking Cessation Date was within the last 15 years Hx Smoking Cessation Date Hx Smoking Cessation Counseling Hematologic Medial History Hematologic Hx - physical therapy aid: Hematologic Medical Hx - immigration consultant Hx of Blood Transfusion No 11/27/24 17:57 Hx of Transfusion in last 3 No 11/27/24 17:57 Months Date of Last Transfusion (if within last 3 months) Ever experience any problems No 11/27/24 17:57 with transfusion(s)? Specify any problems Hx of Preganancy in last 3 No 11/27/24 17:57 Months Nurse Filling Out Transfusion ZOË 11/27/24 17:57 & Questions: Date: 11/27/24 11/27/24 17:57 Time: 18:23 11/27/24 17:57 Patient unable to answer at this time (ie. confused, unrespo /Reproduction History /Reproductive History - physical therapy aid: /Reproductive Hx- physical therapy aid Hx Now No 11/29/24 20:07 Gestational Age (in weeks): EDC: Hx Hx Para Hx Section SAB No 11/29/24 20:07 Active Medications Active Medications: Current Medications Generic Name Dose Route Start Last Admin Trade Name Freq PRN Reason Stop Dose Admin Acetaminophen 650 mg 11/27/24 17:57 11/30/24 05:06 Acetaminophen 325 Mg Tablet PO 650 mg Q6H PRN PRN Administration Pain 1-10 Or Fever >100.7 Albuterol Sulfate 2.5 mg 11/27/24 17:57 11/28/24 16:29 Albuterol 2.5 Mg/3 Ml Vial.Neb. INHALATION 2.5 mg Q2H PRN PRN Administration SOB &/OR WHEEZING Alprazolam 1 mg 11/27/24 22:00 11/30/24 05:56 Alprazolam 0.5 Mg Tablet PO Not Given TID BARBRA Budesonide 0.5 mg 11/27/24 18:15 11/30/24 07:22 Budesonide Respules 0.5 Mg/2 Ml Ampul.Neb. INHALATION 0.5 mg Q12H.RT BARBRA Administration Clonidine HCl 0.2 mg 11/30/24 10:00 Clonidine Hcl 0.2 Mg Patch TD QWEEK BARBRA Famotidine 20 mg 11/28/24 10:00 11/29/24 09:23 Famotidine 20 Mg Tablet PO 20 mg DAILY BARBRA Administration Gabapentin 100 mg 11/28/24 08:00 11/29/24 17:20 Gabapentin 100 Mg Capsule PO 100 mg 0800,1200,1800 BARBRA Administration Gabapentin 200 mg 11/27/24 22:00 11/29/24 22:42 Gabapentin 100 Mg Capsule PO 200 mg QHS BARBRA Administration Guaifenesin 600 mg 11/28/24 10:00 11/29/24 09:19 Guaifenesin 600 Mg Tablet PO 600 mg DAILY BARBRA Administration Pantoprazole Sodium 40 mg/ 100 mls @ 300 mls/hr 11/27/24 22:00 11/29/24 21:40 Sodium Chloride IV Infused Q12 BARBRA Infusion Sodium Chloride 250 mls @ 15 mls/hr 11/27/24 17:58 IV .[id number] PRN Saline Flush Levothyroxine Sodium 37.5 mcg 11/28/24 06:00 11/30/24 05:56 Levothyroxine 75 Mcg Tablet PO Not Given DAILY@0600 BARBRA Lidocaine 1 patch 11/28/24 13:15 11/29/24 09:19 Lidocaine 5% Patch TOPICAL 1 patch DAILY BARBRA Administration Melatonin 10 mg 11/27/24 17:57 11/27/24 21:07 Melatonin 10 Mg Tablet PO 10 mg QHS PRN PRN Administration INSOMNIA Nortriptyline HCl 100 mg 11/27/24 22:00 11/29/24 22:43 Nortriptyline 25 Mg Capsule PO 100 mg QHS BARBRA Administration Ondansetron HCl 4 mg 11/27/24 17:57 11/28/24 20:08 Ondansetron 4 Mg/2 Ml Vial IV 4 mg Q8H PRN PRN Administration NAUSEA/VOMITING Pravastatin Sodium 40 mg 11/28/24 10:00 11/29/24 09:19 Pravastatin 40 Mg Tablet PO 40 mg DAILY BARBRA Administration Senna/Docusate Sodium 2 tablet 11/27/24 22:00 11/29/24 21:16 Senna/Docusate Sodium 1 Tablet PO 2 tablet BID BARBRA Administration Sodium Chloride 10 - 40 ml 11/27/24 17:58 11/29/24 21:16 0.9% Saline Lock 10 Ml Syringe IV 10 ml UD PRN Administration SALINE FLUSH Verapamil HCl 240 mg 11/27/24 22:00 11/29/24 22:42 Verapamil Sr 240 Mg Tablet PO 240 mg BID BARBRA Administration PFSH Medical History Migraine Psoriasis Depression Osteoporosis Primary insomnia Hyperlipidemia Hypothyroidism Obstructive sleep apnea (adult) (pediatric) Mild persistent asthma, uncomplicated Unspecified abnormalities of gait and mobility Difficulty in walking, not elsewhere classified Muscle wasting and atrophy, not elsewhere classified, left lower leg Muscle wasting and atrophy, not elsewhere classified, right lower leg Chronic respiratory failure with hypoxia Seasonal allergies Anemia High cholesterol GERD (gastroesophageal reflux disease) HTN (hypertension) Anxiety Pulmonary fibrosis Home Medications ?Medication ?Instructions ?Recorded ?Last Taken ?Type acetaminophen 500 mg tablet 500 mg PO Q6H PRN fever or pain 11/03/24 Unknown History (Tylenol Extra Strength) albuterol sulfate 90 mcg/actuation 2 puff inhalation Q 6H PRN 11/03/24 Unknown History aerosol inhaler (Ventolin HFA) shortness of breath or wheezing famotidine 20 mg tablet 20 mg PO QDAY 11/03/2411/27 History fexofenadine 180 mg tablet 180 mg PO QDAY PRN allergy symptoms 11/03/24 Unknown History gabapentin 100 mg capsule 100 mg PO TID 11/03/2411/27 06:00 History guaifenesin 600 mg tablet, 600 mg PO DAILY 11/03/24 History extended release 12 hr (Mucinex) levothyroxine 75 mcg tablet 37.5 mcg PO QDAY 11/03/24 11/27/24 History (Levo-T) magnesium hydroxide 400 mg/5 mL 30 ml PO ONCE PRN stom ach upset 11/03/24 Unknown History oral suspension (Milk of Magnesia) nortriptyline 50 mg capsule 100 mg PO QHS 11/03/24 History ondansetron 4 mg disintegrating 4 mg PO Q6H PRN nausea and vomiting 11/03/24 Unknown History tablet pantoprazole 40 mg tablet,delayed 40 mg PO Q12H 11/27/24 10:00 History release pravastatin 40 mg tablet 40 mg PO QDAY 11/03/2411/26 History psyllium husk 2.6 gram/4.1 gram 1 tbsp PO ONCE 5 11/27/24 History oral powder sennosides 8.6 mg tablet (senna) 8.6 mg PO QDAY 11/27/24 History sumatriptan succinate 100 mg tablet See Rx Instruction s PO .COMPLEX 11/03/24 11/26/24 History verapamil 240 mg 24 hr 240 mg PO BID 11/03/2411/27 History capsule,extended release alprazolam 1 mg tablet 1 mg PO TID anxiety 30 days #90 11/25/24 11/27/24 06:00 Rx tabs clonidine 0.2 mg/24 hr weekly 1 patch topical QWEEK Unknown History transdermal patch gabapentin 100 mg capsule 200 mg PO QHS 11/27/2411/26 History hydralazine 25 mg tablet 25 mg PO Q8H PRN sbp>150 Unknown History lidocaine HCl 4 % topical cream 1 applic topical .COMP JOSE pain 11/27/24 11/26/24 History (Aspercreme (lidocaine HCl)) metoprolol succinate 25 mg 25 mg PO DAILY 11/27/24 History tablet,extended release 24 hr mometasone 200 mcg/actuation HFA 2 puff inhalation BID 11/27/24 11/27/24 History aerosol inhaler (Asmanex HFA) natural ears 1 gtt EACH EAR QHS PRN ear p ain 11/27/24 Unknown History pirfenidone 801 mg tablet 801 mg PO TID 11/27/2411/27 06:00 History OXYGEN - Supplemental ([facility] 11/28/24 Unknown History INFORMATIONAL USE ONLY) Allergy/AdvReac Type Severity Reaction Status Date / Time amoxicillin Allergy Mild PT UNSURE Verified 11/27/24 15:00 OF REACTION aspirin Allergy Mild PALPITATION Verified 11/27/24 15:00 S ibuprofen Allergy Mild Swelling Verified 11/27/24 15:00 montelukast Allergy Mild Rash Verified 11/27/24 15:00 rofecoxib Allergy Mild Itching Verified 11/27/24 15:00 Sulfa (Sulfonamide Allergy Mild Rash Verified 11/27/24 15:00 Antibiotics) doxycycline AdvReac Mild GI UPSET Verified 11/27/24 15:00 lisinopril AdvReac Mild GI UPSET Verified 11/27/24 15:00 sertraline AdvReac Mild Diarrhea Verified 11/27/24 15:00 Social History Smoking Status: Never smoker Review of Systems (Anesthesia) ROS Narrative System reviewed and no additional complaints, except as documented. Physical Exam Const alert and oriented x3 HEENT Teeth and Gingiva: dentures and poor dentition Resp normal respiratory effort and normal air movement Auscultation: clear to auscultation bilaterally Cardio regular rate and regular rhythm Back/Spine normal ROM Neuro oriented x3 11/30/24 6177 <Electronically signed by Hero Valladares MD> Date _ Hero Valladares MD Cosigner Signature: Date CC: ~ Signed [facility] Work Phone: Consult note Author Dwain Kapoor [facility] Note Date/Time November 30, 2024 8: 48am [facility] Medical Records Department [address] [place] [address] Anesthesia Postop Eval I 11/30/24 0848 MR#: [id number] Acct: [id number] Name: MERNA WEBSTER Rep #:[id number] : 1940 84 From: Dwain Kapoor PCP: Dr. Сергей Espinoza MD Status:A DM IN Y Race: C Location: [place] [address] 07-31 Anesthesia: Postop Eval I Current Vital Signs Temperature: 98.3 F Pulse Rate: 83 Blood Pressure: 120/56 Respiratory Rate: 16 Pulse Ox: 99 Oxygen Delivery Method: Room Air Assessment Airway patent: Yes Spontaneous unlabored respirations: Yes Mental status: Awake and Calm nausea: No Vomiting: No Anesthesia Complication: No Fluid Hydration Crystalloid volume administer (ml): 500 Total IV fluid infused: 500 Progress Note Anesthesia document: Postop Eval 1 completed: Yes 11/30/24 0848 <Electronically signed by Dwain Kapoor > Date _ Dwain Marquez Signature: Date CC: ~ Signed [facility] Work Phone: Consult note Author Hero Valladares [facility] Note Date/Time November 30, 2024 9: 25am [facility] Medical Records Department [address] [place] [address] Anesthesia Postop Eval II 11/30/24 0925 MR#: [id number] Acct: [id number] Name: MENRA WEBSTER Rep #:[id number] : 1940 84 From: Hero Dolan PCP: Dr. Сергей Espinoza MD Status:A DM IN Y Race: C Location: [place] [id number] Anesthesia Postop Eval I Sum Postop Eval Completion status Anesthesia document: Postop Eval 1 completed: Yes Anesthesia Postop Eval I Summary Anesthesia Postop Eval I Summary: Anesthesia Postop Eval I: Assessment Summary Airway patent Yes 11/30/24 08:48 [email or web address] Spontaneous unlabored Yes 11/30/24 08:48 [email or web address] respirations Mental status Awake,Calm 11/30/24 08:48 [email or web address] nausea No 11/30/24 08:48 [email or web address] Vomiting No 11/30/24 08:48 [email or web address] Anesthesia Postop Eval I: Fluid Summary Crystalloid volume administer 500 11/30/24 08:48 [email or web address] (ml) Colloids volume administered ( ml) Blood Product volume administered (ml) Total IV fluid infused 500 11/30/24 08:48 [email or web address] Anesthesia Postop Eval I: Summary Notes Anesthesia Complication No 11/30/24 08:48 [email or web address] Anesthesia Complication Comment: Post-operative progress note Anesthesia: Postop Eval II Evaluation Mental status: Awake and Calm Pain Level: 0 nausea: No Vomiting: No Complications Anesthesia Complication: No 11/30/24924 <Electronically signed by Hero Valladares MD> Date _ Hero Valladares MD Cosign Signature: Date CC: ~ Signed [facility] Work Phone: Evaluation note* Diagnosis Pure hypercholesterolemia- Primary Idiopathic pulmonary [...] hypothyroidism Unspecified [facility] Stress at home- Primary Unspecified family circumstance [facility] Diagnosis Anxiety Anxiety state, unspecified [facility] [place] [facility] Diagnosis Encounter for support and coordination of transition of care- Primary [facility] [place] [facility]* Diagnosis Idiopathic [...] Anxiety state, unspecified [facility] Anxiety Anxiety state, unspecified [facility] Diagnosis Idiopathic pulmonary fibrosis (HCC) Idiopathic pulmonary fibrosis [facility] Diagnosis Anxiety Anxiety state, unspecified [facility] Diagnosis Radicular low back pain- Primary Thoracic or lumbosacral neuritis or radiculitis, unspecified [facility] Diagnosis Trochanteric bursitis of right hip- Primary Enthesopathy of hip region Right hip pain Pain in joint, pelvic region and thigh Essential hypertension Unspecified essential hypertension Anxiety Anxiety state, unspecified [facility] Diagnosis Anxiety Anxiety state, unspecified [facility] Diagnosis Idiopathic pulmonary fibrosis (HCC)- [...] Anxiety state, unspecified [facility] Diagnosis Idiopathic pulmonary fibrosis (HCC)- Primary Idiopathic pulmonary fibrosis Chronic respiratory failure with hypoxia (HCC) Chronic respiratory failure Mild persistent asthma without complication Unspecified asthma JENNY on CPAP Obstructive sleep apnea (adult) (pediatric) Lung nodule Solitary pulmonary nodule [facility] Diagnosis Hypothyroidism Unspecified hypothyroidism [facility] Diagnosis Idiopathic pulmonary fibrosis (HCC)- Primary Idiopathic pulmonary fibrosis Financial difficulties Inadequate material resources Recurrent major depressive disorder, in full remission (HCC) Chronic respiratory failure with hypoxia (HCC) Chronic respiratory failure Essential hypertension Unspecified essential hypertension Anxiety Anxiety state, unspecified [facility] Diagnosis Financial difficulty- Primary Inadequate material resources [facility] Diagnosis Primary osteoarthritis of right hip Primary localized osteoarthrosis, pelvic region and thigh [facility] Diagnosis Other migraine without status migrainosus, not intractable [facility] Diagnosis Lung nodules Other nonspecific abnormal finding of lung field [facility] Diagnosis Other fatigue- Primary Neck pain Cervicalgia Chronic nonintractable headache, unspecified headache type Rib pain on left side Chest pain, unspecified [facility] Diagnosis Essential hypertension- Primary Unspecified essential hypertension Primary osteoarthritis of both hips Primary localized osteoarthrosis, pelvic region and thigh DDD (degenerative disc disease), cervical Degeneration of cervical intervertebral disc Closed fracture of one rib of left side with routine healing, subsequent encounter [facility] Diagnosis Idiopathic pulmonary fibrosis (HCC) Idiopathic pulmonary fibrosis [facility] Diagnosis Pain- Primary Generalized pain [facility]* Diagnosis Anxiety Anxiety state, unspecified [facility] Diagnosis Primary osteoarthritis of right shoulder- Primary Primary localized osteoarthrosis, shoulder region Primary osteoarthritis of right hip Primary localized osteoarthrosis, pelvic region and thigh Primary osteoarthritis of right knee Primary localized osteoarthrosis, lower leg Primary osteoarthritis of left knee Primary localized osteoarthrosis, lower leg [facility] Diagnosis JENNY (obstructive sleep apnea)- Primary Obstructive sleep apnea (adult) (pediatric) [facility]* Diagnosis Anxiety Anxiety state, unspecified [facility]* Diagnosis Mild persistent asthma with acute [...] History of COVID-19 [facility] [place] [facility]* Diagnosis SOB (shortness of breath) Shortness of breath [facility] [place] [facility]* Diagnosis Anxiety Anxiety state, unspecified [facility] [place] [facility]* Diagnosis Right hip pain Pain in joint, pelvic region and thigh Neck pain Cervicalgia Rib pain on left side Chest pain, unspecified [facility] [place] [facility]* Diagnosis Interstitial pulmonary disease (HCC) Postinflammatory pulmonary fibrosis [facility] [place] [facility]* Diagnosis Anxiety- Primary Anxiety state, unspecified Encounter for immunization Need for other specified prophylactic vaccination against single bacterial disease Palpitations Psoriasis Other psoriasis Primary hypertension Unspecified essential hypertension Sinus congestion Other diseases of nasal cavity and sinuses [facility] [place] [facility]* Diagnosis SOB (shortness of breath) Shortness of breath [facility] [place] [facility]* Diagnosis Other migraine without status migrainosus, not intractable [facility] [place] [facility]* Diagnosis Anxiety Anxiety state, unspecified [facility] [place] [facility]* Diagnosis Idiopathic pulmonary fibrosis (HCC) Idiopathic pulmonary fibrosis [facility] [place] [facility]* Diagnosis Anxiety Anxiety state, unspecified [facility] [place] [facility]* Diagnosis DON (dyspnea on exertion)- Primary Other dyspnea and respiratory abnormality Palpitations Essential hypertension Unspecified essential hypertension Pure hypercholesterolemia Obstructive sleep apnea Obstructive sleep apnea (adult) (pediatric) DNR (do not resuscitate) Do not resuscitate status documented [facility] [place] [facility]* Diagnosis Anxiety Anxiety state, unspecified [facility] [place] [facility]* Diagnosis Anxiety Anxiety state, unspecified [facility] [place] [facility]* Diagnosis Idiopathic pulmonary fibrosis (HCC)- Primary Idiopathic pulmonary fibrosis Chronic respiratory failure with hypoxia (HCC) Chronic respiratory failure [facility] [place] [facility]* Diagnosis Pure hypercholesterolemia documented [facility] [place] [facility]* Diagnosis Essential hypertension- Primary Unspecified essential hypertension Pure hypercholesterolemia Chronic respiratory failure with hypoxia (HCC) Chronic respiratory failure Obstructive sleep apnea Obstructive sleep apnea (adult) (pediatric) Palpitations [facility] Diagnosis Primary insomnia- Primary Persistent disorder [...] single bacterial disease [facility] [place] [facility]* Diagnosis Hyponatremia- Primary Hyposmolality and/or hyponatremia Anemia, unspecified type [facility] [place] [facility]* Diagnosis Dysuria- Primary [facility] [place] [facility]* Diagnosis Idiopathic pulmonary fibrosis (HCC) Idiopathic pulmonary fibrosis [facility] [place] [facility]* Diagnosis Idiopathic pulmonary fibrosis (HCC) Idiopathic pulmonary fibrosis [facility] [place] [facility]* Diagnosis Interstitial pulmonary disease (HCC) Postinflammatory pulmonary fibrosis [facility] [place] [facility]* Diagnosis Interstitial pulmonary disease (HCC) Postinflammatory pulmonary fibrosis [facility] Diagnosis Interstitial pulmonary disease (HCC) Postinflammatory pulmonary fibrosis [facility] Diagnosis Idiopathic pulmonary fibrosis (HCC)- Primary Idiopathic pulmonary fibrosis Mild persistent asthma without complication Unspecified asthma Chronic respiratory failure with hypoxia (HCC) Chronic respiratory failure Obstructive sleep apnea Obstructive sleep apnea (adult) (pediatric) Gastroesophageal reflux disease, unspecified whether esophagitis present [facility] [place] [facility]* Diagnosis Chronic right shoulder pain Pain in joint, shoulder region [facility] [place] [facility]* Diagnosis Pain Generalized pain documented [facility] [place] [facility]* Diagnosis Pain in right hip Pain in joint, pelvic region and thigh [facility]* Diagnosis Chronic pain of right knee Radicular low back pain Thoracic or lumbosacral neuritis or radiculitis, unspecified [facility] [place] noteNo assessment information availableWUniversity [facility] Work Phone: Evaluation note* Diagnosis Onset Date Resolution Status Admit Date Acute lower GI bleeding acute S eptember 2024 5:11pm Anemia acute October 5:11pm Bright red blood per rectum acute November 29, 2024 5:11pm Orthostatic hypotension acute S eptember 2024 5:11pm Pulmonary fibrosis acute Septem liza 2024 5:11pm [facility] Work Phone: History and physical note Author Mariela Lilly [facility] Note Date/Time November 27, 2024 5:14pm [facility] Medical Records Department [address] [place] [address] H&P Exam - Hospitalist 11/27/24 1642 MR#: [id number] Acct: [id number] Name: MERNA WEBSTER Rep #:[id number] : 1940 84 From: Mariela Lilly MD PCP: Dr. Сергей Espinoza MD Status:R EG ER Location: ED HPI - General General Date of Admission: 11/27/24 Date of Service: 11/27/24 Chief Complaint: Bright red blood per rectum HPI Narrative MERNA WEBSTER, is a 84-year-old female history of pulmonary fibrosis on 3 Lof O2 chronically, hypertension, hypothyroidism, GERD, anxiety who presented [facility] ED 11/27/2024 with rectal bleeding that began today. Recently constipated and passed hard stool and then this morning noticed she hadbright red blood per rectum. Had to wipe multiple times but the bleeding lessened however due to the blood skilled nursing wanted to send her to the ED however she wanted to wait but then she had another bowel movement with bright red blood mixed in. Reported feeling little lightheaded but no other acute complaints. In the ED temp 97.8, heart rate 72, blood pressure 135/67, respiratory 18 pulse ox 100% on 3 L nasal cannula. She did have positive orthostats with blood pressure 131/63 down to 109/57 on standing. CBC with white count 6.5 and hemoglobin 8.5 similar to CBC in August of this year BMP with a sodium of 132, bicarb 33, BUN of 12 and a creatinine of 0.82. Patient had no further episodes in the ED but she did have anoscopy which showed large clot with some amount of blood above the scope. Given the above with the positive orthostats and 2 episodes of blood in the stool with anoscopy results hospitalist contacted for admission. Patient evaluated with her niece at bedside, she reports as above with the 2 episodes of bright red blood per rectum, notes that she did briefly feel lightheaded when she was up moving around and got some double vision that completely resolved and has not come backsince that time. Denies any abdominal pain, no nausea or vomiting, no changes in urination. Has had some changes in her blood pressure medications several days ago, otherwise denies any acute changes no blood thinners. She has not hadany more episodes of blood in her stool in the ED and no further episodes of lightheadedness. Of note patient reports she has a cough with her pulmonary fibrosis and coughs significantly and thinks that may have contributed due to the increased pressure in her abdomen [facility] Medical History Migraine Psoriasis Depression Osteoporosis Primary insomnia Hyperlipidemia Hypothyroidism Obstructive sleep apnea (adult) (pediatric) Mild persistent asthma, uncomplicated Unspecified abnormalities of gait and mobility Difficulty in walking, not elsewhere classified Muscle wasting and atrophy, not elsewhere classified, left lower leg Muscle wasting and atrophy, not elsewhere classified, right lower leg Chronic respiratory failure with hypoxia Seasonal allergies Anemia High cholesterol GERD (gastroesophageal reflux disease) HTN (hypertension) Anxiety Pulmonary fibrosis Home Medications ?Medication ?Instructions ?Recorded ?Last Taken ?Type acetaminophen 500 mg tablet 500 mg PO Q6H PRN fever or pain 11/03/24 Unknown History (Tylenol Extra Strength) albuterol sulfate 90 mcg/actuation 2 puff inhalation Q 6H PRN 11/03/24 Unknown History aerosol inhaler (Ventolin HFA) shortness of breath or wheezing famotidine 20 mg tablet 20 mg PO QDAY 11/03/24 Unkno wn History fexofenadine 180 mg tablet 180 mg PO QDAY PRN allergy symptoms 11/03/24 Unknown History gabapentin 100 mg capsule 100 mg PO TID 11/03/24 Unkno wn History guaifenesin 600 mg tablet, 600 mg PO DAILY 11/03/24 Un known History extended release 12 hr (Mucinex) levothyroxine 75 mcg tablet 37.5 mcg PO QDAY 11/03/24 Unknown History (Levo-T) magnesium hydroxide 400 mg/5 mL 30 ml PO ONCE PRN stom ach upset 11/03/24 Unknown History oral suspension (Milk of Magnesia) nortriptyline 50 mg capsule 100 mg PO QHS 11/03/24 Unk nown History ondansetron 4 mg disintegrating 4 mg PO Q6H PRN nausea and vomiting 11/03/24 Unknown History tablet pantoprazole 40 mg tablet,delayed 40 mg PO Q12H Unknown History release pravastatin 40 mg tablet 40 mg PO QDAY 11/03/24 Unkno wn History psyllium husk 2.6 gram/4.1 gram 1 tbsp PO ONCE 5 Unknown History oral powder sennosides 8.6 mg tablet (senna) 8.6 mg PO QDAY Unknown History sumatriptan succinate 100 mg tablet See Rx Instruction s PO .COMPLEX 11/03/24 Unknown History verapamil 240 mg 24 hr 240 mg PO BID 11/03/24 Unkno wn History capsule,extended release alprazolam 1 mg tablet 1 mg PO TID anxiety 30 days #90 11/25/24 Unknown Rx tabs clonidine 0.2 mg/24 hr weekly 1 patch topical QWEEK Unknown History transdermal patch gabapentin 100 mg capsule 200 mg PO QHS 11/27/24 Unkno wn History hydralazine 25 mg tablet 25 mg PO Q8H PRN sbp>150 Unknown History lidocaine HCl 4 % topical cream 1 applic topical .COMP JOSE pain 11/27/24 Unknown History (Aspercreme (lidocaine HCl)) metoprolol succinate 25 mg 25 mg PO DAILY 11/27/24 Unk nown History tablet,extended release 24 hr mometasone 200 mcg/actuation HFA 2 puff inhalation BID 11/27/24 Unknown History aerosol inhaler (Asmanex HFA) natural ears 1 gtt EACH EAR QHS PRN ear p ain 11/27/24 Unknown History pirfenidone 801 mg tablet 801 mg PO TID 11/27/24 Unkno wn History Allergy/AdvReac Type Severity Reaction Status Date / Time amoxicillin Allergy Mild PT UNSURE Verified 11/27/24 15:00 OF REACTION aspirin Allergy Mild PALPITATION Verified 11/27/24 15:00 S ibuprofen Allergy Mild Swelling Verified 11/27/24 15:00 montelukast Allergy Mild Rash Verified 11/27/24 15:00 rofecoxib Allergy Mild Itching Verified 11/27/24 15:00 Sulfa (Sulfonamide Allergy Mild Rash Verified 11/27/24 15:00 Antibiotics) doxycycline AdvReac Mild GI UPSET Verified 11/27/24 15:00 lisinopril AdvReac Mild GI UPSET Verified 11/27/24 15:00 sertraline AdvReac Mild Diarrhea Verified 11/27/24 15:00 Social History Smoking Status: Never smoker ROS ROS Narrative General: Denies fever/chills, episode of lightheadedness resolved HENT: Denies headache, denies stuffy nose, denies sore throat EYES: Denies changes in vision Resp chronic cough and shortness of breath at baseline Cardiac: Denies chest pain GI: Denies abdominal pain, blood in stool earlier, denies nausea/vomiting : Denies changes in urination Extremity: Denies swelling MSK: Denies weakness Neuro: Problems with chronic neuropathy Heme: Denies any bleeding or bruising Skin: Denies rashes Psychiatric: No complaints voiced Vital Signs Vital Signs Vital Signs: 11/27/24 14:52 11/27/24 15:21 Temperature 97.8 F Temperature Source Oral Pulse Rate 72 Pulse Rate [Lying] 70 Pulse Rate [Sitting (for 1 minute prior to obtaining)] 73 Pulse Rate [Standing (for 1 minute prior to obtaining)] 74 Respiratory Rate 18 Blood Pressure 135/67 H Blood Pressure [Lying] 131/63 H Blood Pressure [Sitting (for 1 minute prior to obtaining)] 120/65 Blood Pressure [Standing (for 1 minute prior to obtaining)] 109/59 L Blood Pressure Mean 89 Blood Pressure Mean [Lying] 85 Blood Pressure Mean [Sitting (for 1 minute prior to obtaining)] 83 Blood Pressure Mean [Standing (for 1 minute prior to obtaining)] 75 Pulse Ox 100 Oxygen Delivery Method Nasal Cannula Oxygen Flow Rate (L/min) 3 Weight Weight: 62.6 kg Body Mass Index (BMI) 25.2 Physical Exam Narrative General: Alert, oriented, no apparent distress HEENT: Atraumatic, normocephalic Eyes: Anicteric, normal conjunctiva, extraocular movements grossly intact Neck: Supple Respiratory: Fine crackles diffusely, normal respiratory effort Cardiovascular: Regular rate and rhythm GI: Soft, nontender, nondistended Extremities: No edema Musculoskeletal: Moving all extremities Neuro: No overt focal neurological deficits Skin: No rashes appreciated Psych: Cooperative Results Lab / Micro Data 11/27/24 15:03 11/27/24 15:03 Labs: Laboratory Results - last 24 hr 11/27/24 15:03: WBC 6.5, RBC 2.75 L, Hgb 8.5 L, Hct 27.7 L, MCV 100.7 H, MCH 30.9, MCHC 30.7 L, RDW Std Deviation 45.8 H, RDW Coeff of Francisca 12.4, Plt Count 191, MPV 9.2, Immature Gran % (Auto) 0.500, Neut % (Auto) 59.8, Lymph % (Auto) 18.9 L, Monona % (Auto) 9.5, Eos % (Auto) 10.4 H, Baso % (Auto) 0.9, Absolute Neuts (auto) 3.9, Absolute Lymphs (auto) 1.23, Nucleated RBC % 0, Sodium 132 L, Potassium 4.1, Chloride 92 L, Carbon Dioxide 33.1 H, Anion Gap 7, BUN 12, Creatinine 0.82, Estim Creat Clear Calc 45.22 L, Est GFR (MDRD) Non-Af 71, BUN/Creatinine Ratio 14.8, Glucose 127 H, Calcium 8.9 Assessment & Plan Assessment/Plan (1) Bright red blood per rectum: PLAN: Plan # Bright red blood per rectum -Patient with 2 episodes of bright red blood per rectum -Anoscopy did show some blood and clot -Suspect this is lower GI, BUN within normal limits, patient on PPI and has no epigastric pain, no blood thinners, she has had no more symptoms of lightheadedness and is presently vitally stable -Patient does take PPI twice daily so we will change this to IV though, again, upper GI bleed much less likely - Will monitor for bleeding overnight, H&H in the a.m. or sooner if any further episodes of blood in stool -Will place patient on a clear liquid diet and n.p.o. at midnight in the event she would have drop in hemoglobin or increased bleeding that would necessitate evaluation/intervention tomorrow -Pending clinical course overnight, vital stability, hemoglobin in the a.m. it can be decided if patient would benefit from inpatient versus outpatient GI evaluation - Does have history of constipation and had recent hard stools, will schedule stool softener # Positive orthostats -Blood pressure in ED 131/63 and subsequently went down to 109/59 upon standing but patient asymptomatic, sitting there on my evaluation systolic 150 and no tachycardia noted - Patient on multiple blood pressure medications and nortriptyline which could cause the positive orthostats potentially especially given patient asymptomatic at that time - Though given patient coming in for GI bleed will monitor blood pressure and heart rate closely and patient will be admitted to PCU #Hypertension - Patient not presently hypotensive, continue clonidine patch and verapamil - Will hold metoprolol as this is generally not indicated with verapamil due to potential for adverse interactions and side effects and patient had positive orthostats on presentation with some transient lightheadedness earlier as well # History of pulmonary fibrosis and chronic hypoxic respiratory failure -On 3 L of nasal cannula chronically -Presently no new respiratory complaints -Continue patient's home pirfenidone -Continue home inhalers - Incentive spirometer #Hypothyroidism -Continue Synthroid #GERD - Will switch PPI to IV though much lower suspicion for upper GI # Anxiety -Continue home medications # Migraines - Patient takes nortriptyline and sumatriptan as needed -Last took sumatriptan last night -No present headache #DVT ppx: SCDs Mariela Lilly MD Charges/Coding Visit Charges Inpatient E&M: 21072 Init Hosp L2 11/27/24 1714 <Electronically signed by Mariela Lilly MD> Cosigner Signature (if applicable): CC: Dr. Сергей Espinoza MD; Dr. Mariela Lilly MD~ Signed [facility] Work Phone: Progress note Author Brayden Abdullahi [facility] Note Date/Time November 28, 2024 3:34pm [facility] Medical Records Department [address] [place] [address] Progress Note - Hospitalist 11/28/24 1531 MR#: [id number] Acct: [id number] Name: JOYMERNA L Rep #:[id number] : 1940 84 From: Brayden roberts MD PCP: Dr. Сергей Espinoza MD Status:A DM JAKE Location: [place] [address] Subjective Subjective Doing well, no issues overnight Objective Data Objective Data Vital Signs: Vital Signs Temp Pulse Resp BP Pulse Ox O2 Del Method O2 Flow Rate 97.9 F 71 16 124/60 H 99 Nasal Cannula 3 11/28/24 14:00 11/28/24 14:00 11/28/24 14:00 11/28/24 14:00 11/28/24 14:00 11/28/24 15:28 11/28/24 15:28 Oxygen Flow Rate (L/min) 3 Oxygen Delivery Method Nasal Cannula Weight: 131 lb 13.383 oz Body Mass Index (BMI) 24.0 Intake & Output: Intake and Output for Last 24 Hours 11/27/24 11/28/24 11/29/24 03:59 03:59 03:59 Intake Total 700 / 700 616.67 / 616.67 Balance 700 / 700 616.67 / 616.67 Lab / Micro Data 11/28/24 12:03 11/28/24 05:13 Labs: Laboratory Results - last 24 hr 11/27/24 15:03: Sodium 132 L, Potassium 4.1, Chloride 92 L, Carbon Dioxide 33.1 H, Anion Gap 7, BUN 12, Creatinine 0.82, Estim Creat Clear Calc 45.22 L, Est GFR(MDRD) Non-Af 71, BUN/Creatinine Ratio 14.8, Glucose 127 H, Calcium 8.9 11/28/24 05:13: WBC 5.4, RBC 2.60 L, Hgb 7.9 L, Hct 26.2 L, MCV 100.8 H, MCH 30.4, MCHC 30.2 L, RDW Std Deviation 45.8 H, RDW Coeff of Francisca 12.5, Plt Count 191, MPV 9.2, Immature Gran % (Auto) 0.200, Neut % (Auto) 52.2, Lymph % (Auto) 25.0, Monona % (Auto) 10.0, Eos % (Auto) 11.3 H, Baso % (Auto) 1.3 H, Absolute Neuts (auto) 2.8, Absolute Lymphs (auto) 1.35, Nucleated RBC % 0, Sodium 139, Potassium 4.1, Chloride 101, Carbon Dioxide 32.4 H, Anion Gap 6, BUN 10, Creatinine 0.59 L, Estim Creat Clear Calc 42.14 L, Est GFR (MDRD) Non-Af 89, BUN/Creatinine Ratio 16.5, Glucose 92, Calcium 8.5 11/28/24 12:03: Hgb 8.2 L, Hct 26.5 L Physical Exam Narrative General: Alert, Oriented x3, Cooperative, No apparent distress HEENT: Atraumatic, PERRLA, EOMI, Normocephalic Oral: Moist Mucosa Neck: Supple, No JVD Lungs: Diminished, Normal air movement, No rhonchi, No wheeze, No rales Cardiovascular: Regular rate, Regular Rhythm, Normal S1, Normal S2, No murmurs Abdomen: Soft, Non Tender, Non-Distended, No Hepato-splenomegaly Extremities: No edema, Capillary Refill Less than 3 Seconds Skin: No rashes, No breakdown Musculoskeletal: No Tenderness to Palpation of Joints or Extremities Neurological: No focal neurological deficits, moves all extremities Psych/Mental Status: Normal Affect, Appropriate Assessment & Plan Assessment/Plan (1) Bright red blood per rectum: PLAN: Plan 1. Bright red blood per rectum with positive orthostatic vital signs/GERD ? Continue to monitor hemoglobin, afternoon check was 8.2 so it is possible thatmilagro has discontinued her bleeding ? Will recheck in the morning ? Continue with PPI ? Can advance her diet today, if her hemoglobin drops again tomorrow morning radha will need to have a prep with GI consult 2. Essential HTN ? Continue with clonidine and verapamil ? Will monitor and make adjustments as necessary ? Will hold her metoprolol 3. History of pulmonary fibrosis with chronic hypoxic respiratory failure ? She is on her baseline oxygen requirement of 3 L nasal cannula ? She can resume her home pirfenidone on discharge ? Continue with her home inhalers 4. Hypothyroidism ? Stable ? Continue with Synthroid 5. Anxiety/depression/migraines ? Stable ? Continue with her home medications DVT: SCDs Charges/Coding Visit Charges Inpatient E&M: 58535 Subs Hosp L2 11/28/24 8217 <Electronically signed by Brayden Abdullahi MD> Cosigner Signature (if applicable): CC: ~ Signed [facility] Work Phone: Progress note Author Brayden Abdullahi [facility] Note Date/Time November 29, 2024 11:13am [facility] Medical Records Department [address] [place] [address] Progress Note - Hospitalist 11/29/248 MR#: [id number] Acct: [id number] Name: MERNA WEBSTER Rep #:[id number] : 1940 84 From: Brayden roberts MD PCP: Dr. Сергей Espinoza MD Status:A DM JAKE Location: [place] [address] Subjective Subjective Hemoglobin dropped to 7.9. She continued to have some blood and clots in her stool last evening Objective Data Objective Data Vital Signs: Vital Signs Temp Pulse Resp BP Pulse Ox O2 Del Method O2 Flow Rate 97.5 F L 67 16 100/51 L 99 Nasal Cannula 3 11/29/24 08:59 11/29/24 08:59 11/29/24 08:59 11/29/24 08:59 11/29/24 08:59 11/29/24 09:00 11/29/24 09:00 Oxygen Flow Rate (L/min) 3 Oxygen Delivery Method Nasal Cannula Weight: 131 lb 13.383 oz Body Mass Index (BMI) 24.0 Intake & Output: Intake and Output for Last 24 Hours 11/28/24 11/29/24 11/30/24 03:59 03:59 03:59 Intake Total 700 / 700 716.67 / 716.67 100 / 100 Balance 700 / 700 716.67 / 716.67 100 / 100 Lab / Micro Data 11/29/24 05:11 11/28/24 05:13 Labs: Laboratory Results - last 24 hr 11/28/24 12:03: Hgb 8.2 L, Hct 26.5 L 11/29/24 05:11: WBC 7.0, RBC 2.55 L, Hgb 7.9 L, Hct 25.7 L, MCV 100.8 H, MCH 31.0, MCHC 30.7 L, RDW Std Deviation 46.3 H, RDW Coeff of Francisca 12.5, Plt Count 179, MPV 9.5, Immature Gran % (Auto) 0.300, Neut % (Auto) 59.4, Lymph % (Auto) 20.4, Monona % (Auto) 9.7, Eos % (Auto) 9.3 H, Baso % (Auto) 0.9, Absolute Neuts (auto) 4.2, Absolute Lymphs (auto) 1.43, Nucleated RBC % 0 Physical Exam Narrative General: Alert, Oriented x3, Cooperative, No apparent distress HEENT: Atraumatic, PERRLA, EOMI, Normocephalic Oral: Moist Mucosa Neck: Supple, No JVD Lungs: Diminished, Normal air movement, No rhonchi, No wheeze, No rales Cardiovascular: Regular rate, Regular Rhythm, Normal S1, Normal S2, No murmurs Abdomen: Soft, Non Tender, Non-Distended, No Hepato-splenomegaly Extremities: No edema, Capillary Refill Less than 3 Seconds Skin: No rashes, No breakdown Musculoskeletal: No Tenderness to Palpation of Joints or Extremities Neurological: No focal neurological deficits, moves all extremities Psych/Mental Status: Normal Affect, Appropriate Assessment & Plan Assessment/Plan (1) Bright red blood per rectum: PLAN: Plan 1. Bright red blood per rectum with positive orthostatic vital signs/GERD ?Hemoglobin on morning labs yesterday was 7.9, afternoon was 8.2 but this morning at 7.9 again ? Will plan for colonoscopy tomorrow and consult GI and proceed with prep today ? Continue with PPI 2. Essential HTN ? Continue with clonidine and verapamil ? Will monitor and make adjustments as necessary ? Will hold her metoprolol 3. History of pulmonary fibrosis with chronic hypoxic respiratory failure ? She is on her baseline oxygen requirement of 3 L nasal cannula ? She can resume her home pirfenidone on discharge ? Continue with her home inhalers 4. Hypothyroidism ? Stable ? Continue with Synthroid 5. Anxiety/depression/migraines ? Stable ? Continue with her home medications DVT: SCDs Charges/Coding Visit Charges Inpatient E&M: 44901 Subs Hosp L2 11/29/24 1113 <Electronically signed by Brayden Abdullahi MD> Cosigner Signature (if applicable): CC: ~ Signed [facility] Work Phone: Progress note Author Weston Choudhary [facility] Note Date/Time November 30, 2024 10 :44am [facility] Medical Records Department [address] [place] [address] Progress Note - Hospitalist 11/30/24 1034 MR#: [id number] Acct: [id number] Name: MERNA WEBSTER Rep #:[id number] : 1940 84 From: Weston Choudhary MD PCP: Dr. Сергей Espinoza MD Status:A DM IN Location: [place] [address] Reason for Visit Chief Complaint: Bright red blood per rectum Subjective Subjective Patient is an 84-year-old lady resident at [facility] who presented to the emergency department with rectal bleeding Objective Data Objective Data Vital Signs: Vital Signs Temp Pulse Resp BP Pulse Ox O2 Del Method O2 Flow Rate 97.3 F L 81 16 123/84 H 97 Nasal Cannula 3 11/30/24 08:50 11/30/24 08:50 11/30/24 08:50 11/30/24 08:50 11/30/24 08:50 11/30/24 08:50 11/30/24 08:50 Oxygen Flow Rate (L/min) 3 Oxygen Delivery Method Nasal Cannula Weight: 59.8 kg Body Mass Index (BMI) 24.3 Intake & Output: Intake and Output for Last 24 Hours 11/28/24 11/29/24 11/30/24 23:59 23:59 23:59 Intake Total 836.67 / 836.67 200 / 200 Output Total 3 / 3 Balance 836.67 / 836.67 200 / 200 -3 / -3 Lab / Micro Data 11/30/24 03:55 11/30/24 03:55 Labs: Laboratory Results - last 24 hr 11/30/24 03:55: WBC 8.6, RBC 2.63 L, Hgb 8.1 L, Hct 26.0 L, MCV 98.9, MCH 30.8, MCHC 31.2 L, RDW Std Deviation 45.5 H, RDW Coeff of Francisca 12.5, Plt Count 191, MPV9.4, Immature Gran % (Auto) 0.200, Neut % (Auto) 67.9, Lymph % (Auto) 15.3 L, Monona % (Auto) 8.6, Eos % (Auto) 7.5 H, Baso % (Auto) 0.5, Absolute Neuts (auto) 5.8, Absolute Lymphs (auto) 1.31, Nucleated RBC % 0, PT 13.2, INR 1.0, APTT 26.3, Sodium 139, Potassium 4.0, Chloride 100, Carbon Dioxide 30.8, Anion Gap 8,BUN 11, Creatinine 0.48 L, Estim Creat Clear Calc 42.14 L, Est GFR (MDRD) Non-Af94, BUN/Creatinine Ratio 22.3 H, Glucose 90, Calcium 8.9, TSH 2.440 Physical Exam Narrative General: Alert, Oriented x3, Cooperative, No apparent distress HEENT: Atraumatic, PERRLA, EOMI, Normocephalic Oral: Moist Mucosa Neck: Supple, No JVD Lungs: Diminished, Normal air movement, No rhonchi, No wheeze, No rales Cardiovascular: Regular rate, Regular Rhythm, Normal S1, Normal S2, No murmurs Abdomen: Soft, Non Tender, Non-Distended, No Hepato-splenomegaly Extremities: No edema, Capillary Refill Less than 3 Seconds Skin: No rashes, No breakdown Musculoskeletal: No Tenderness to Palpation of Joints or Extremities Neurological: No focal neurological deficits, moves all extremities Psych/Mental Status: Normal Affect, Appropriate Assessment & Plan Assessment/Plan (1) Bright red blood per rectum: PLAN: Plan Patient is an 84-year-old lady resident at [facility] who presented to the emergency department with rectal bleeding 1. Hematochezia ? Patient hemoglobin on admission was 7.9. Was admitted to monitored bed consult placed to Dr. Salazar with GI patient underwent colonoscopy on 11/30/2024 findings and recommendations as below Findings - Preparation of the colon was fair. - Diverticulosis in the entire examined colon. - Two bleeding colonic angiodysplastic lesions. Treated with a monopolar probe. - Stool in the rectum, in the recto-sigmoid colon, in the sigmoid colon, in the descending colon, at the splenic flexure and in the cecum. - Four 15 mm polyps in the sigmoid colon, at the splenic flexure, at the hepaticflexure and in the cecum, removed with a hot snare. Resected and retrieved. - A tattoo was seen in the transverse colon and at the hepatic flexure. The tattoo site appeared normal. Recommendations : - Await pathology results. - Repeat colonoscopy because the bowel preparation was poor. 2. Anemia ? Secondary to acute blood loss anemia monitoring H&H and transfuse if patient becomes symptomatic or hemoglobin falls below 7 3. Hypothyroidism ? Patient is on levothyroxine home dose continued 4. Allergic rhinitis ? Patient is on fexofenadine 5. Dyslipidemia ?Patient is on statin therapy, continued at home dose 6. Chronic hypoxic respiratory failure Secondary to pulmonary fibrosis patient is on home oxygen 3 L at rest 7. Pulmonary fibrosis ? Patient is on pirfenidone held on admission plan is to resume on discharge 8. GERD ? Patient on PPI 9. Anxiety disorder ? Patient is on alprazolam 10. Hypertension ? Blood pressure controlled, home medications continued with dose adjustment as needed 11. DVT prophylaxis ? SCDs only given patient presentation Time spent in the patient's overall evaluation,decision-making process, review of diagnostic data, adjustment of management, discussion with other providers, nursing nursing and ancillary staff involved in patient's care documentation, 50 Minutes Charges/Coding Visit Charges Inpatient E&M: 26389 Subs Hosp L3 11/30/24 1044 <Electronically signed by Weston Choudhary MD> Cosigner Signature (if applicable): CC: ~ Signed [facility] Work Phone: Reason for referral (narrative)* Outpatient Procedure (Routine) - Authorized Specialty Diagnoses / Procedures Referred By Omar mixon Referred To [facility] Diagnoses Interstitial pulmonary disease (HCC) Procedures LUNG DIFFUSION CAPACITY (DLCO) DIFFUSING CAPACITY Sona Grier MD [address] [place] [address] [place] [address] [place] [address] Referral ID Status Reason Start Date Expiration Date Visits Requested Visits Authorized [id number] Authorized Auto-Generat ed Referral 10/28/2021 11/27/2022 1 1 * Outpatient Procedure (Routine) - Pending Review Specialty Diagnoses / Procedures Referred By Omar mixon Referred To [facility] [employer] Diagnoses Interstitial pulmonary disease (HCC) Procedures LUNG VOLUMES Sona Grier MD [address] [place] [address] [place] [address] [place] [address] Referral ID Status Reason Start Date Expiration Date Visits Requested Visits Authorized [id number] Pending Review Auto-Generat ed Referral 10/28/2021 11/27/2022 1 1 * Outpatient Procedure (Routine) - Authorized Specialty Diagnoses / Procedures Referred By Contac t Referred To Contact [facility] Diagnoses Interstitial pulmonary disease (HCC) Procedures SPIROMETRY WITH DILATOR IF OBSTRUCTED BRNCDILAT RSPSE SPMTRY PRE&POST-BRNCDILAT ADMN Sona Grier MD [address] [place] [address] Respiratory [place] [address] [place] [address] Referral ID Status Reason Start Date Expiration Date Visits Requested Visits Authorized [id number] Authorized Auto-Generat ed Referral 10/28/2021 11/27/2022 1 1 * MRI/CT (Routine) - Authorized Specialty Diagnoses / Procedures Referred By Contac t Referred To Contact CT IMAGING Diagnoses Interstitial pulmonary disease (HCC) Procedures CT CHEST WO IVCON DIAGNOSTIC COMPUTED TOMOGRAPHY THORAX W/O CNTRST Sona Grier MD [address] [place] [address] Ct Imaging Referral ID Status Reason Start Date Expiration Date Visits Requested Visits Authorized [id number] Authorized Auto-Generat ed Referral 2 11/27/2022 1 1 [facility] for referral (narrative)* Diagnostic Procedure Only (Routine) - Authorized Specialty Diagnoses / Procedures Referred By Contac t Referred To Contact XR IMAGING Diagnoses Right hip pain Procedures XR HIP BILATERAL 5V PEL/AP/LAT EACH HIP RADEX HIPS BILATERAL WITH PELVIS MINIMUM 5 VIEWS Сергей Espinoza MD [address] [place] [address] Xr Imaging Referral ID Status Reason Start Date Expiration Date Visits Requested Visits Authorized [id number] Authorized Auto-Generat ed Referral 2 03/16/2023 1 1 * Consult, Test, Treat (Routine) - Pending Review Specialty Diagnoses / Procedures Referred By Contac t Referred To Contact Orthopedics Diagnoses Trochanteric bursitis of right hip Right hip pain Procedures CONSULT TO ORTHOPAEDICS OFFICE/OUTPATIENT [facility] 60-74 MINUTES Сергей Espinoza MD [address] [place] [address] Referral ID Status Reason Start Date Expiration Date Visits Requested Visits Authorized [id number] Pending Review PCP Requested Referral 2 02/14/2023 1 1 [facility] for referral (narrative)* Outpatient Procedure (Routine) - Authorized Specialty Diagnoses / Procedures Referred By Contac t Referred To Contact [facility] Diagnoses Chronic respiratory failure with hypoxia (HCC) Procedures OXIMETRY WITH AMBULATION NONINVASIVE EAR/PULSE OXIMETRY MULTIPLE DETER Tomasa Ramirez, [employer] LEAK TESTER.BULLET CASTING OPERATOR [address] [place] [address] Respiratory [place] [id number] Referral ID Status Reason Start Date Expiration Date Visits Requested Visits Authorized [id number] Authorized Auto-Generat ed Referral 03/31/2022 04/30/2023 1 1 [place] [facility] for referral (narrative)* Outpatient Procedure (Routine) - Pending Review Specialty Diagnoses / Procedures Referred By Contac t Referred To Contact [facility] Diagnoses Idiopathic pulmonary fibrosis (HCC) Chronic respiratory failure with hypoxia (HCC) Mild persistent asthma without complication Procedures LUNG DIFFUSION CAPACITY (DLCO) DIFFUSING CAPACITY Tomasa Ramirez APRN.BULLET CASTING OPERATOR [address] [place] [address] Respiratory [place] [address] [place] [address] Referral ID Status Reason Start Date Expiration Date Visits Requested Visits Authorized [id number] Pending Review Auto-Generat ed Referral 05/05/2022 06/04/2023 1 1 * Outpatient Procedure (Routine) - Pending Review Specialty Diagnoses / Procedures Referred By Contac t Referred To Contact [facility] Diagnoses Idiopathic pulmonary fibrosis (HCC) Chronic respiratory failure with hypoxia (HCC) Mild persistent asthma without complication Procedures LUNG VOLUMES Tomasa Ramirez APRN.CNP [address] [place] [address] Respiratory [place], [place] [id number] Referral ID Status Reason Start Date Expiration Date Visits Requested Visits Authorized [id number] Pending Review Auto-Generat ed Referral 05/05/2022 06/04/2023 1 1 * Outpatient Procedure (Routine) - Pending Review Specialty Diagnoses / Procedures Referred By Contac t Referred To Contact [facility] Diagnoses Idiopathic pulmonary fibrosis (HCC) Chronic respiratory failure with hypoxia (HCC) Mild persistent asthma without complication Procedures SPIROMETRY - BASELINE AND POST DILATOR BRNCDILAT RSPSE SPMTRY PRE&POST-BRNCDILAT ADMN Tomasa Ramirez APRN.BULLET CASTING OPERATOR [id number] [place] [address] Referral ID Status Reason Start Date Expiration Date Visits Requested Visits Authorized [id number] Pending Review Auto-Generat ed Referral 05/05/2022 06/04/2023 1 1 [facility] Diagnostic Procedure Only (Routine) - Pending Review Specialty Diagnoses / Procedures Referred By Contac t Referred To Contact XR IMAGING Diagnoses Rib pain on left side Procedures XR RIBS/CHEST 3V AP RIB/OBLS/CXR LEFT RADEX RIBS UNI W/POSTEROANT CH MINIMUM 3 VIEWS Сергей Espinoza MD [address] [place] [address] Xr Imaging Referral ID Status Reason Start Date Expiration Date Visits Requested Visits Authorized [id number] Pending Review Auto-Generat ed Referral 08/22/2022 09/21/2023 1 1 * Diagnostic Procedure Only (Routine) - Pending Review Specialty Diagnoses / Procedures Referred By Contac t Referred To Contact XR IMAGING Diagnoses Neck pain Procedures XR CERV OTHER 4V AP/LAT/OBL RADEX SPINE CERVICAL 4 OR 5 VIEWS Сергей Espinoza MD [address] [place] [address] Xr Imaging Referral ID Status Reason Start Date Expiration Date Visits Requested Visits Authorized [id number] Pending Review Auto-Generat ed Referral 08/22/2022 09/21/2023 1 1 [facility] for referral (narrative)* Diagnostic Procedure Only (Routine) - Pending Review Specialty Diagnoses / Procedures Referred By Contac t Referred To Contact XR IMAGING Diagnoses Pain Procedures XR KNEE GENERAL 4V AP BOTH/PA BOTH/LAT/MERC BILATERAL RADIOLOGIC EXAM KNEE COMPLETE 4/MORE VIEWS Al Woods PA-C [address] [place] [address] Xr Imaging Referral ID Status Reason Start Date Expiration Date Visits Requested Visits Authorized [id number] Pending Review Auto-Generat ed Referral 10/08/2022 11/07/2023 1 1 [facility] for referral (narrative)* Diagnostic Procedure Only (Routine) - Closed Specialty Diagnoses / Procedures Referred By Contac t Referred To Contact XR IMAGING Diagnoses Rib pain on left side Procedures XR RIBS/CHEST 3V AP RIB/OBLS/CXR LEFT RADEX RIBS UNI W/POSTEROANT CH MINIMUM 3 VIEWS Сергей Espinoza MD [address] [place] [address] [place] [address] Referral ID Status Reason Start Date Expiration Date V isits Requested Visits Authorized [id number] Closed Auto-Generate d Referral 08/22/2022 09/21/2023 1 1 * Diagnostic Procedure Only (Routine) - Closed Specialty Diagnoses / Procedures Referred By Contac t Referred To Contact XR IMAGING Diagnoses Neck pain Procedures XR CERV OTHER 4V AP/LAT/OBL RADEX SPINE CERVICAL 4 OR 5 VIEWS Сергей Espinoza MD [address] [place] [address] [place] [address] Referral ID Status Reason Start Date Expiration Date V isits Requested Visits Authorized [id number] Closed Auto-Generate d Referral 08/22/2022 09/21/2023 1 1 * Diagnostic Procedure Only (Routine) - Closed Specialty Diagnoses / Procedures Referred By Contac t Referred To Contact XR IMAGING Diagnoses Right hip pain Procedures XR HIP BILATERAL 5V PEL/AP/LAT EACH HIP RADEX HIPS BILATERAL WITH PELVIS MINIMUM 5 VIEWS Сергей Espinoza MD [address] [place] [address] [place] [address] Referral ID Status Reason Start Date Expiration Date V isits Requested Visits Authorized [id number] Closed Auto-Generate d Referral 02/14/2022 03/16/2023 1 1 [facility] for referral (narrative)* Outpatient Procedure (Routine) - Closed Specialty Diagnoses / Procedures Referred By Contac t Referred To Contact [facility] Diagnoses SOB (shortness of breath) Procedures ECHO ECHO TTHRC R-T 2D W/WOM-MODE COMPL SPEC&COLR D Sona Grier MD [address] [place] [address] [facility] [place] [facility] [id number] Referral ID Status Reason Start Date Expiration Date V isits Requested Visits Authorized [id number] Closed Auto-Generate d Referral 11/28/2022 11/28/2023 1 1 [facility] for referral (narrative)* Diagnostic Procedure Only (Routine) - Closed Specialty Diagnoses / Procedures Referred By Contac t Referred To Contact XR IMAGING Diagnoses Chronic right shoulder pain Procedures XR SHOULDER GENERAL 3V OR MORE AP/TRUE AP/OTHER RIGHT RADEX SHOULDER COMPLETE MINIMUM 2 VIEWS Сергей Espinoza MD [address] [place] [address] Xr Imaging [facility] Referral ID Status Reason Start Date Expiration Date V isits Requested Visits Authorized [id number] Closed Auto-Generate d Referral 09/29/2022 10/29/2023 1 1 [facility] for referral (narrative)* Diagnostic Procedure Only (Routine) - Closed Specialty Diagnoses / Procedures Referred By Contac t Referred To Contact XR IMAGING Diagnoses Pain Procedures XR KNEE GENERAL 4V AP BOTH/PA BOTH/LAT/MERC BILATERAL RADIOLOGIC EXAM KNEE COMPLETE 4/MORE VIEWS Al Woods PA-C [address] [place] [address] [place] [address] Referral ID Status Reason Start Date Expiration Date V isits Requested Visits Authorized [id number] Closed Auto-Generate d Referral 10/08/2022 11/07/2023 1 1 [facility] for referral (narrative)* Diagnostic Procedure Only (Routine) - Closed Specialty Diagnoses / Procedures Referred By Contac t Referred To Contact XR IMAGING Diagnoses Pain in right hip Procedures XR HIP GENERAL 3V PELV/AP/LAT RIGHT RADEX HIP UNILATERAL WITH PELVIS 2-3 VIEWS Hero Rubio PA-C [address] [place] [address] [place] [address] Referral ID Status Reason Start Date Expiration Date V isits Requested Visits Authorized [id number] Closed Auto-Generate d Referral 03/19/2022 04/18/2023 1 1 [facility] for referral (narrative)* Diagnostic Procedure Only (Routine) - Closed Specialty Diagnoses / Procedures Referred By Contac t Referred To Contact XR IMAGING Diagnoses Radicular low back pain Procedures XR SACRUM/COCCYX 3V AP/LAT RADEX SACRUM & COCCYX MINIMUM 2 VIEWS Сергей Espinoza MD [address] [place] [address] [place] [address] Referral ID Status Reason Start Date Expiration Date V isits Requested Visits Authorized [id number] Closed Auto-Generate d Referral 12/13/2021 01/12/2023 1 1 * Diagnostic Procedure Only (Routine) - Closed Specialty Diagnoses / Procedures Referred By Contac t Referred To Contact XR IMAGING Diagnoses Radicular low back pain Procedures XR LUMBAR GENERAL 3V AP/LAT/L5-S1 RADEX SPINE LUMBOSACRAL 2/3 VIEWS Сергей Espinoza MD [address] [place] [address] [place] [address] Referral ID Status Reason Start Date Expiration Date V isits Requested Visits Authorized [id number] Closed Auto-Generate d Referral 12/13/2021 01/12/2023 1 1 * Diagnostic Procedure Only (Routine) - Closed Specialty Diagnoses / Procedures Referred By Contac t Referred To Contact XR IMAGING Diagnoses Chronic pain of right knee Procedures XR KNEE GENERAL 4V AP BOTH/PA BOTH/LAT/MERC RIGHT RADIOLOGIC EXAM KNEE COMPLETE 4/MORE VIEWS Сергей Espinoza MD [address] [place] [address] [place] [address] Referral ID Status Reason Start Date Expiration Date V isits Requested Visits Authorized [id number] Closed Auto-Generate d Referral 12/13/2021 01/12/2023 1 1 [facility] for referral (narrative)No reason for referral information availableW[facility] Work Phone: Reason for visit Narrative* Diagnostic Procedure Only (Routine) - Closed Specialty Diagnoses / Procedures Referred By Contac t Referred To Contact XR IMAGING Diagnoses Rib pain on left side Procedures XR RIBS/CHEST 3V AP RIB/OBLS/CXR LEFT RADEX RIBS UNI W/POSTEROANT CH MINIMUM 3 VIEWS Сергей Espinoza MD [address] [place] [address] [place] [address] Referral ID Status Reason Start Date Expiration Date V isits Requested Visits Authorized [id number] Closed Auto-Generate d Referral 08/22/2022 09/21/2023 1 1 [facility] for visit Narrative* Outpatient Procedure (Routine) - Closed Specialty Diagnoses / Procedures Referred By Contac t Referred To Contact [facility] Diagnoses SOB (shortness of breath) Procedures ECHO ECHO TTHRC R-T 2D W/WOM-MODE COMPL SPEC&COLR D Sona Grier MD [address] [place] [address] [facility] [place] [address] [place] [address] Referral ID Status Reason Start Date Expiration Date V isits Requested Visits Authorized [id number] Closed Auto-Generate d Referral 11/28/2022 11/28/2023 1 1 [facility] for visit Narrative* Diagnostic Procedure Only (Routine) - Closed Specialty Diagnoses / Procedures Referred By Contac t Referred To Contact XR IMAGING Diagnoses Chronic right shoulder pain Procedures XR SHOULDER GENERAL 3V OR MORE AP/TRUE AP/OTHER RIGHT RADEX SHOULDER COMPLETE MINIMUM 2 VIEWS Сергей Espinoza MD [address] [place] [address] [place] [address] Referral ID Status Reason Start Date Expiration Date V isits Requested Visits Authorized [id number] Closed Auto-Generate d Referral 09/29/2022 10/29/2023 1 1 [facility] for visit Narrative* Diagnostic Procedure Only (Routine) - Closed Specialty Diagnoses / Procedures Referred By Contac t Referred To Contact XR IMAGING Diagnoses Pain Procedures XR KNEE GENERAL 4V AP BOTH/PA BOTH/LAT/MERC BILATERAL RADIOLOGIC EXAM KNEE COMPLETE 4/MORE VIEWS Al Woods PA-C [address] [place] [address] [place] [address] Referral ID Status Reason Start Date Expiration Date V isits Requested Visits Authorized [id number] Closed Auto-Generate d Referral 10/08/2022 11/07/2023 1 1 [facility] for visit Narrative* Diagnostic Procedure Only (Routine) - Closed Specialty Diagnoses / Procedures Referred By Contac t Referred To Contact XR IMAGING Diagnoses Pain in right hip Procedures XR HIP GENERAL 3V PELV/AP/LAT RIGHT RADEX HIP UNILATERAL WITH PELVIS 2-3 VIEWS Hero Rubio PA-C [address] [place] [address] [place] [address] Referral ID Status Reason Start Date Expiration Date V isits Requested Visits Authorized [id number] Closed Auto-Generate d Referral 03/19/2022 04/18/2023 1 1 [facility] for visit Narrative* Diagnostic Procedure Only (Routine) - Closed Specialty Diagnoses / Procedures Referred By Contac t Referred To Contact XR IMAGING Diagnoses Radicular low back pain Procedures XR SACRUM/COCCYX 3V AP/LAT RADEX SACRUM & COCCYX MINIMUM 2 VIEWS Сергей Espinoza MD [address] [place] [address] [place] [address] Referral ID Status Reason Start Date Expiration Date V isits Requested Visits Authorized [id number] Closed Auto-Generate d Referral 12/13/2021 01/12/2023 1 1 [facility] Summary Purpose Family History No Family History Records FoundNo Family History Records FoundNo Family History Records FoundNo Family History Records FoundNo Family History Records FoundNo Family History Records Found Advance Directives No Advanced Directives Records FoundDocuments on File Type Date 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 Yes November 27, 2024 5:57pm Name of Medical Power of Card Checker ray dee dee mariano November 27, 2024 2:57pm Reason for Referral Specialty Diagnoses / Procedures Referred By Contac t Referred To Contact Сергей Espinoza MD [address] [place] [address] Referral ID Status Reason Start Date Expiration Date Visits Re quested Visits Authorized [id number] Closed 1 1 Specialty Diagnoses / Procedures Referred By Contac t Referred To Contact Diagnoses Idiopathic pulmonary fibrosis (HCC) Brinda Bah, PA-C [address] [place] [address] Referral ID Status Reason Start Date Expiration Date V isits Requested Visits Authorized [id number] Authorized 09/26/2021 09/25/2022 1 1 Specialty Diagnoses / Procedures Referred By Contac t Referred To Contact Brinda Dominguez APRN.[facility] [address] [place] [address] Referral ID Status Reason Start Date Expiration Date V isits Requested Visits Authorized [id number] Pending Review 1 1 Specialty Diagnoses / Procedures Referred By Contac t Referred To Contact CT IMAGING Diagnoses Lung nodules Procedures CT CHEST WO IVCON DIAGNOSTIC COMPUTED TOMOGRAPHY THORAX W/O SHAHIDARST Sona Grier MD [address] [place] [address] Ct Imaging Referral ID Status Reason Start Date Expiration Date Visits Requested Visits Authorized [id number] Pending Review Auto-Generat ed Referral 07/09/2022 05/11/2023 1 1 Referral ID Status Reason Start Date Expiration Date V isits Requested Visits Authorized [id number] Closed Auto-Generate d Referral 07/09/2022 05/11/2023 1 1 Specialty Diagnoses / Procedures Referred By Contac t Referred To Contact Kenyon Zuniga APRN.[facility] [address] [place] [address] Referral ID Status Reason Start Date Expiration Date V isits Requested Visits Authorized [id number] Pending Review 1 1 Specialty Diagnoses / Procedures Referred By Contac t Referred To Contact Cardiology / PULMONARY MEDICINE Diagnoses SOB (shortness of breath) Procedures CONSULT TO CARDIOLOGY OFFICE/OUTPATIENT [facility] 60-74 MINUTES Sona Grier MD [address] [place] [address] [address] [place] [address] Referral ID Status Reason Start Date Expiration Date Visits Requested Visits Authorized [id number] Authorized PCP Requested Referral 11/28/2022 11/28/2023 1 1 Specialty Diagnoses / Procedures Referred By Contac t Referred To Contact [facility] Diagnoses SOB (shortness of breath) Procedures ECG COMPLETE ECG ROUTINE ECG W/LEAST 12 LDS W/I&R Sona Grier MD [address] [place] [address] [facility] [place] [address] [place] [address] Referral ID Status Reason Start Date Expiration Date Visits Requested Visits Authorized [id number] Pending Review Auto-Generat ed Referral 11/28/2022 11/28/2023 1 1 Specialty Diagnoses / Procedures Referred By Contac t Referred To Contact [facility] Diagnoses SOB (shortness of breath) Procedures ECHO ECHO TTHRC R-T 2D W/WOM-MODE COMPL SPEC&COLR D Sona Grier MD [address] [place] [address] [facility] [place] [address] [place] [address] Referral ID Status Reason Start Date Expiration Date Visits Requested Visits Authorized [id number] Authorized Auto-Generat ed Referral 11/28/2022 11/28/2023 1 1 Specialty Diagnoses / Procedures Referred By Contac t Referred To Contact CT IMAGING Diagnoses Interstitial pulmonary disease (HCC) Procedures CT CHEST WO IVCON DIAGNOSTIC COMPUTED TOMOGRAPHY THORAX W/O CNTRST Sona Grier MD [address] [place] [address] [place] [address] Referral ID Status Reason Start Date Expiration Date V isits Requested Visits Authorized [id number] Closed Auto-Generate d Referral 01/28/2022 11/27/2022 1 1 Referral ID Status Reason Start Date Expiration Date Visits Re quested Visits Authorized [id number] Closed 1 1 Specialty Diagnoses / Procedures Referred By Contac t Referred To Contact Tomasa Ramirez APRN.[facility] [address] [place] [address] Referral ID Status Reason Start Date Expiration Date V isits Requested Visits Authorized [id number] Authorized 03/02/2023 03/01/2024 1 1 Chief Complaint [...] MONTHLY EXAM April 05, 2024 7 :35pm [facility] WORK April 07, 2024 5:00am LABWORK April 19, 2024 5:00am MONTHLY NOTE April 21, 2024 5:01pm LABWORK April 23, 2024 12:00pm MONTHLY NOTE May 11, 2024 12: 09pm [facility] WORK May 17, 2024 5 :00am Chief Complaint Admit Date MONTHLY EXAM April 05, 2024 7 :35pm [facility] WORK April 07, 2024 5:00am LABWORK April 19, 2024 5:00am MONTHLY NOTE April 21, 2024 5:01pm LABWORK April 23, 2024 12:00pm MONTHLY NOTE May 11, 2024 12: 09pm [facility] WORK May 17, 2024 5 :00am MONTHLY EXAM May 31, 2024 5:25 pm [facility] WORK July 19, 2024 5:0 0am Chief Complaint Admit Date [facility] WORK May 17, 2024 5 :00am MONTHLY EXAM May 31, 2024 5:25 pm MONTHLY EXAM June 30, 2024 10:15a m [facility] WORK July 19, 2024 5:0 0am Chief Complaint Admit Date [facility] WORK May 17, 2024 5 :00am MONTHLY EXAM May 31, 2024 5:25 pm MONTHLY EXAM June 30, 2024 10:15a m [facility] WORK July 19, 2024 5:0 0am NEW CONCERN July 26, 2024 3:15p m Chief Complaint Admit Date MONTHLY EXAM May 31, 2024 5:25 pm MONTHLY EXAM June 30, 2024 10:15a m [facility] WORK July 19, 2024 5:0 0am NEW CONCERN July 26, 2024 3:15p m MONTHLY EXAM August 02, 2024 5:30p m Chief Complaint Admit Date MONTHLY EXAM May 31, 2024 5:25 pm MONTHLY EXAM June 30, 2024 10:15a m [facility] WORK July 19, 2024 5:0 0am NEW CONCERN July 26, 2024 3:15p m MONTHLY EXAM August 02, 2024 5:30p m NEW CONCERN August 08, 2024 2:45p m Chief Complaint Admit Date MONTHLY EXAM June 30, 2024 10:15a m [facility] WORK July 19, 2024 5:0 0am NEW CONCERN July 26, 2024 3:15p m MONTHLY EXAM August 02, 2024 5:30p m NEW CONCERN August 08, 2024 2:45p m [facility] WORK September 13, 2024 5: 03am [facility] WORK September 14, 2024 5: 35am New Concern September 16, 2024 7:33 pm [facility] WORK October 06, 2024 4 :00am Chief Complaint Admit Date MONTHLY EXAM June 30, 2024 10:15a m [facility] WORK July 19, 2024 5:0 0am NEW CONCERN July 26, 2024 3:15p m MONTHLY EXAM August 02, 2024 5:30p m NEW CONCERN August 08, 2024 2:45p m [facility] WORK September 13, 2024 5: 03am New Concern September 13, 2024 1:11 pm [facility] WORK September 14, 2024 5: 35am New Concern September 16, 2024 7:33 pm [facility] WORK October 06, 2024 4 :00am Chief Complaint Admit Date MONTHLY EXAM June 30, 2024 10:15a m [facility] WORK July 19, 2024 5:0 0am NEW CONCERN July 26, 2024 3:15p m MONTHLY EXAM August 02, 2024 5:30p m NEW CONCERN August 08, 2024 2:45p m [facility] WORK September 13, 2024 5: 03am New Concern September 13, 2024 1:11 pm [facility] LAB WORK September 14, 2024 5: 35am New Concern September 16, 2024 7:33 pm [facility] WORK October 03, 2024 1 2:00pm MONTHLY EXAM October 04, 2024 5:0 6pm [facility] WORK October 06, 2024 4 :00am [facility] WORK October 18, 2024 4:00am Chief Complaint Admit Date [facility] LAB WORK July 19, 2024 5:0 0am NEW CONCERN July 26, 2024 3:15p m MONTHLY EXAM August 02, 2024 5:30p m NEW CONCERN August 08, 2024 2:45p m [facility] LAB WORK September 13, 2024 5: 03am New Concern September 13, 2024 1:11 pm [facility] LAB WORK September 14, 2024 5: 35am New Concern September 16, 2024 7:33 pm [facility] WORK October 03, 2024 1 2:00pm MONTHLY EXAM October 04, 2024 5:0 6pm [facility] WORK October 06, 2024 4 :00am [facility] WORK October 18, 2024 4:00am New Concern October 25, 2024 2: 35pm Amb Documentation November 03, 2024 9:49am Chief Complaint Admit Date MONTHLY EXAM August 02, 2024 5:30p m NEW CONCERN August 08, 2024 2:45p m [facility] WORK September 13, 2024 5: 03am New Concern September 13, 2024 1:11 pm [facility] LAB WORK September 14, 2024 5: 35am New Concern September 16, 2024 7:33 pm [facility] LAB WORK October 03, 2024 1 2:00pm MONTHLY EXAM October 04, 2024 5:0 6pm [facility] WORK October 06, 2024 4 :00am [facility] WORK October 18, 2024 4:00am New Concern October 25, 2024 2: 35pm Amb Documentation November 03, 2024 9:49am rectal bleed November 27, 2024 4:42pm CONCERN FOR GI BLEED POSITIVE ORTHOSTATS November 28, 2024 3:31pm CONCERN FOR GI BLEED POSITIVE ORTHOSTATS November 29, 2024 11:08am CONCERN FOR GI BLEED POSITIVE ORTHOSTATS November 29, 2024 5:11pm CONCERN FOR GI BLEED POSITIVE ORTHOSTATS November 30, 2024 7:46am CONCERN FOR GI BLEED POSITIVE ORTHOSTATS November 30, 2024 10:34am Reason for Visit Admit Date Acute lower GI bleeding November 29, 2024 5:11pm Anemia November 29, 2024 5:11pm Bright red blood per rectum November 292024 5:11pm Orthostatic hypotension November 29, 2024 5:11pm Pulmonary fibrosis November 29, 2024 5:11pm Chief Complaint Admit Date NEW CONCERN August 08, 2024 2:45p m [facility] WORK September 13, 2024 5: 03am New Concern September 13, 2024 1:11 pm [facility] LAB WORK September 14, 2024 5: 35am New Concern September 16, 2024 7:33 pm [facility] LAB WORK October 03, 2024 1 2:00pm MONTHLY EXAM October 04, 2024 5:0 6pm [facility] LAB WORK October 06, 2024 4 :00am [facility] LAB WORK October 18, 2024 4:00am New Concern October 25, 2024 2: 35pm Amb Documentation November 03, 2024 9:49am rectal bleed November 27, 2024 4:42pm CONCERN FOR GI BLEED POSITIVE ORTHOSTATS November 28, 2024 3:31pm CONCERN FOR GI BLEED POSITIVE ORTHOSTATS November 29, 2024 11:08am CONCERN FOR GI BLEED POSITIVE ORTHOSTATS November 29, 2024 5:11pm CONCERN FOR GI BLEED POSITIVE ORTHOSTATS November 30, 2024 7:46am CONCERN FOR GI BLEED POSITIVE ORTHOSTATS November 30, 2024 10:34am CONCERN FOR GI BLEED POSITIVE ORTHOSTATS December 01, 2024 1:20pm CONCERN FOR GI BLEED POSITIVE ORTHOSTATS December 01, 2024 4:26pm Chief Complaint Admit Date [facility] LAB WORK September 13, 2024 5: 03am New Concern September 13, 2024 1:11 pm [facility] LAB WORK September 14, 2024 5: 35am New Concern September 16, 2024 7:33 pm [facility] LAB WORK October 03, 2024 1 2:00pm MONTHLY EXAM October 04, 2024 5:0 6pm [facility] LAB WORK October 06, 2024 4 :00am [facility] LAB WORK October 18, 2024 4:00am New Concern October 25, 2024 2: 35pm Amb Documentation November 03, 2024 9:49am MONTHLY NOTE November 14, 2024 4:26pm rectal bleed November 27, 2024 4:42pm CONCERN FOR GI BLEED POSITIVE ORTHOSTATS November 28, 2024 3:31pm CONCERN FOR GI BLEED POSITIVE ORTHOSTATS November 29, 2024 11:08am CONCERN FOR GI BLEED POSITIVE ORTHOSTATS November 29, 2024 5:11pm CONCERN FOR GI BLEED POSITIVE ORTHOSTATS November 30, 2024 7:46am CONCERN FOR GI BLEED POSITIVE ORTHOSTATS November 30, 2024 10:34am CONCERN FOR GI BLEED POSITIVE ORTHOSTATS December 01, 2024 1:20pm CONCERN FOR GI BLEED POSITIVE ORTHOSTATS December 01, 2024 4:26pm Reason for Visit Admit Date Anemia November 29, 2024 5:11pm Pulmonary fibrosis November 29, 2024 5:11pm Acute lower GI bleeding November 29, 2024 5:11pm Bright red blood per rectum November 292024 5:11pm Orthostatic hypotension November 29, 2024 5:11pm Additional Source Comments INFORMATION SOURCE (unrecogn ized section and content) DATE CREATED AUTHOR 12/24/2020 [facility] DATE CREATED AUTHOR AUTHOR'S ORGANIZ ATION 04/20/2022 [facility] DATE CREATED AUTHOR AUTHOR'S ORGANIZ ATION 04/20/2022 [employer] DATE CREATED AUTHOR AUTHOR'S ORGANIZ ATION 05/01/2023 [facility] DATE CREATED AUTHOR AUTHOR'S ORGANIZ ATION 11/22/2024 [facility] DATE CREATED AUTHOR AUTHOR'S ORGANIZ ATION 01/01/2025 [facility] Source Comments (unrecognize d section and content) In the event this informatio n is protected by the Federal Confidentiality of Alcohol and Drug Abuse Patient Records regulations: The Federal rules restrict any use of the information to criminally investigate or prosecute any alcohol or drug abuse patient.[facility] the event this information is protected by the Federal Confidentiality of Alcohol and Drug Abuse Patient Records regulations: The Federal rules restrict any use of the information to criminally investigate or prosecute any alcohol or drug abuse patient.[facility] Hospital[facility] the event this information is protected by the Federal Confidentiality of Alcohol and Drug Abuse Patient Records regulations: The Federal rules restrict any use of the information to criminally investigate or prosecute any alcohol or drug abuse patient.[facility] the event this information is protected by the Federal Confidentiality of Alcohol and Drug Abuse Patient Records regulations: The Federal rules restrict any use of the information to criminally investigate or prosecute any alcohol or drug abuse patient.[facility] the event this information is protected by the Federal Confidentiality of Alcohol and Drug Abuse Patient Records regulations: The Federal rules restrict any use of the information to criminally investigate or prosecute any alcohol or drug abuse patient.[facility]In the event this information is protected by the Federal Confidentiality of Alcohol and Drug Abuse Patient Records regulations: The Federal rules restrict any use of the information to criminally investigate or prosecute any alcohol or drug abuse patient.[facility] HospitalIn the event this information is protected by the Federal Confidentiality of Alcohol and Drug Abuse Patient Records regulations: The Federal rules restrict any use of the information to criminally investigate or prosecute any alcohol or drug abuse patient.[facility] HospitalIn the event this information is protected by the Federal Confidentiality of Alcohol and Drug Abuse Patient Records regulations: The Federal rules restrict any use of the information to criminally investigate or prosecute any alcohol or drug abuse patient.[facility] HospitalIn the event this information is protected by the Federal Confidentiality of Alcohol and Drug Abuse Patient Records regulations: The Federal rules restrict any use of the information to criminally investigate or prosecute any alcohol or drug abuse patient.[facility] HospitalIn the event this information is protected by the Federal Confidentiality of Alcohol and Drug Abuse Patient Records regulations: The Federal rules restrict any use of the information to criminally investigate or prosecute any alcohol or drug abuse patient.[facility] HospitalIn the event this information is protected by the Federal Confidentiality of Alcohol and Drug Abuse Patient Records regulations: The Federal rules restrict any use of the information to criminally investigate or prosecute any alcohol or drug abuse patient.[facility] HospitalIn the event this information is protected by the Federal Confidentiality of Alcohol and Drug Abuse Patient Records regulations: The Federal rules restrict any use of the information to criminally investigate or prosecute any alcohol or drug abuse patient.[facility] HospitalIn the event this information is protected by the Federal Confidentiality of Alcohol and Drug Abuse Patient Records regulations: The Federal rules restrict any use of the information to criminally investigate or prosecute any alcohol or drug abuse patient.[facility] HospitalIn the event this information is protected by the Federal Confidentiality of Alcohol and Drug Abuse Patient Records regulations: The Federal rules restrict any use of the information to criminally investigate or prosecute any alcohol or drug abuse patient.[facility] HospitalIn the event this information is protected by the Federal Confidentiality of Alcohol and Drug Abuse Patient Records regulations: The Federal rules restrict any use of the information to criminally investigate or prosecute any alcohol or drug abuse patient.[facility] HospitalIn the event this information is protected by the Federal Confidentiality of Alcohol and Drug Abuse Patient Records regulations: The Federal rules restrict any use of the information to criminally investigate or prosecute any alcohol or drug abuse patient.[facility] HospitalIn the event this information is protected by the Federal Confidentiality of Alcohol and Drug Abuse Patient Records regulations: The Federal rules restrict any use of the information to criminally investigate or prosecute any alcohol or drug abuse patient.[facility] HospitalIn the event this information is protected by the Federal Confidentiality of Alcohol and Drug Abuse Patient Records regulations: The Federal rules restrict any use of the information to criminally investigate or prosecute any alcohol or drug abuse patient.[facility]In the event this information is protected by the Federal Confidentiality of Alcohol and Drug Abuse Patient Records regulations: The Federal rules restrict any use of the information to criminally investigate or prosecute any alcohol or drug abuse patient.[facility] HospitalIn the event this information is protected by the Federal Confidentiality of Alcohol and Drug Abuse Patient Records regulations: The Federal rules restrict any use of the information to criminally investigate or prosecute any alcohol or drug abuse patient.[facility] HospitalIn the event this information is protected by the Federal Confidentiality of Alcohol and Drug Abuse Patient Records regulations: The Federal rules restrict any use of the information to criminally investigate or prosecute any alcohol or drug abuse patient.[facility] HospitalIn the event this information is protected by the Federal Confidentiality of Alcohol and Drug Abuse Patient Records regulations: The Federal rules restrict any use of the information to criminally investigate or prosecute any alcohol or drug abuse patient.[facility] HospitalIn the event this information is protected by the Federal Confidentiality of Alcohol and Drug Abuse Patient Records regulations: The Federal rules restrict any use of the information to criminally investigate or prosecute any alcohol or drug abuse patient.[facility] HospitalIn the event this information is protected by the Federal Confidentiality of Alcohol and Drug Abuse Patient Records regulations: The Federal rules restrict any use of the information to criminally investigate or prosecute any alcohol or drug abuse patient.[facility] HospitalIn the event this information is protected by the Federal Confidentiality of Alcohol and Drug Abuse Patient Records regulations: The Federal rules restrict any use of the information to criminally investigate or prosecute any alcohol or drug abuse patient.[facility] HospitalIn the event this information is protected by the Federal Confidentiality of Alcohol and Drug Abuse Patient Records regulations: The Federal rules restrict any use of the information to criminally investigate or prosecute any alcohol or drug abuse patient.[facility] HospitalIn the event this information is protected by the Federal Confidentiality of Alcohol and Drug Abuse Patient Records regulations: The Federal rules restrict any use of the information to criminally investigate or prosecute any alcohol or drug abuse patient.[facility] HospitalIn the event this information is protected by the Federal Confidentiality of Alcohol and Drug Abuse Patient Records regulations: The Federal rules restrict any use of the information to criminally investigate or prosecute any alcohol or drug abuse patient.[facility] HospitalIn the event this information is protected by the Federal Confidentiality of Alcohol and Drug Abuse Patient Records regulations: The Federal rules restrict any use of the information to criminally investigate or prosecute any alcohol or drug abuse patient.[facility] HospitalIn the event this information is protected by the Federal Confidentiality of Alcohol and Drug Abuse Patient Records regulations: The Federal rules restrict any use of the information to criminally investigate or prosecute any alcohol or drug abuse patient.[facility] HospitalIn the event this information is protected by the Federal Confidentiality of Alcohol and Drug Abuse Patient Records regulations: The Federal rules restrict any use of the information to criminally investigate or prosecute any alcohol or drug abuse patient.[facility] HospitalIn the event this information is protected by the Federal Confidentiality of Alcohol and Drug Abuse Patient Records regulations: The Federal rules restrict any use of the information to criminally investigate or prosecute any alcohol or drug abuse patient.[facility] HospitalIn the event this information is protected by the Federal Confidentiality of Alcohol and Drug Abuse Patient Records regulations: The Federal rules restrict any use of the information to criminally investigate or prosecute any alcohol or drug abuse patient.[facility] HospitalIn the event this information is protected by the Federal Confidentiality of Alcohol and Drug Abuse Patient Records regulations: The Federal rules restrict any use of the information to criminally investigate or prosecute any alcohol or drug abuse patient.[facility] HospitalIn the event this information is protected by the Federal Confidentiality of Alcohol and Drug Abuse Patient Records regulations: The Federal rules restrict any use of the information to criminally investigate or prosecute any alcohol or drug abuse patient.[facility] HospitalIn the event this information is protected by the Federal Confidentiality of Alcohol and Drug Abuse Patient Records regulations: The Federal rules restrict any use of the information to criminally investigate or prosecute any alcohol or drug abuse patient.[facility] HospitalIn the event this information is protected by the Federal Confidentiality of Alcohol and Drug Abuse Patient Records regulations: The Federal rules restrict any use of the information to criminally investigate or prosecute any alcohol or drug abuse patient.[facility] HospitalIn the event this information is protected by the Federal Confidentiality of Alcohol and Drug Abuse Patient Records regulations: The Federal rules restrict any use of the information to criminally investigate or prosecute any alcohol or drug abuse patient.[facility] HospitalIn the event this information is protected by the Federal Confidentiality of Alcohol and Drug Abuse Patient Records regulations: The Federal rules restrict any use of the information to criminally investigate or prosecute any alcohol or drug abuse patient.[facility] HospitalIn the event this information is protected by the Federal Confidentiality of Alcohol and Drug Abuse Patient Records regulations: The Federal rules restrict any use of the information to criminally investigate or prosecute any alcohol or drug abuse patient.[facility] HospitalIn the event this information is protected by the Federal Confidentiality of Alcohol and Drug Abuse Patient Records regulations: The Federal rules restrict any use of the information to criminally investigate or prosecute any alcohol or drug abuse patient.[facility] HospitalIn the event this information is protected by the Federal Confidentiality of Alcohol and Drug Abuse Patient Records regulations: The Federal rules restrict any use of the information to criminally investigate or prosecute any alcohol or drug abuse patient.[facility] HospitalIn the event this information is protected by the Federal Confidentiality of Alcohol and Drug Abuse Patient Records regulations: The Federal rules restrict any use of the information to criminally investigate or prosecute any alcohol or drug abuse patient.[facility]In the event this information is protected by the Federal Confidentiality of Alcohol and Drug Abuse Patient Records regulations: The Federal rules restrict any use of the information to criminally investigate or prosecute any alcohol or drug abuse patient.[facility] HospitalIn the event this information is protected by the Federal Confidentiality of Alcohol and Drug Abuse Patient Records regulations: The Federal rules restrict any use of the information to criminally investigate or prosecute any alcohol or drug abuse patient.[facility] HospitalIn the event this information is protected by the Federal Confidentiality of Alcohol and Drug Abuse Patient Records regulations: The Federal rules restrict any use of the information to criminally investigate or prosecute any alcohol or drug abuse patient.[facility] HospitalIn the event this information is protected by the Federal Confidentiality of Alcohol and Drug Abuse Patient Records regulations: The Federal rules restrict any use of the information to criminally investigate or prosecute any alcohol or drug abuse patient.[facility] HospitalIn the event this information is protected by the Federal Confidentiality of Alcohol and Drug Abuse Patient Records regulations: The Federal rules restrict any use of the information to criminally investigate or prosecute any alcohol or drug abuse patient.[facility] HospitalIn the event this information is protected by the Federal Confidentiality of Alcohol and Drug Abuse Patient Records regulations: The Federal rules restrict any use of the information to criminally investigate or prosecute any alcohol or drug abuse patient.[facility] HospitalIn the event this information is protected by the Federal Confidentiality of Alcohol and Drug Abuse Patient Records regulations: The Federal rules restrict any use of the information to criminally investigate or prosecute any alcohol or drug abuse patient.[facility] HospitalIn the event this information is protected by the Federal Confidentiality of Alcohol and Drug Abuse Patient Records regulations: The Federal rules restrict any use of the information to criminally investigate or prosecute any alcohol or drug abuse patient.[facility] HospitalIn the event this information is protected by the Federal Confidentiality of Alcohol and Drug Abuse Patient Records regulations: The Federal rules restrict any use of the information to criminally investigate or prosecute any alcohol or drug abuse patient.[facility] HospitalIn the event this information is protected by the Federal Confidentiality of Alcohol and Drug Abuse Patient Records regulations: The Federal rules restrict any use of the information to criminally investigate or prosecute any alcohol or drug abuse patient.[facility] HospitalIn the event this information is protected by the Federal Confidentiality of Alcohol and Drug Abuse Patient Records regulations: The Federal rules restrict any use of the information to criminally investigate or prosecute any alcohol or drug abuse patient.[facility] HospitalIn the event this information is protected by the Federal Confidentiality of Alcohol and Drug Abuse Patient Records regulations: The Federal rules restrict any use of the information to criminally investigate or prosecute any alcohol or drug abuse patient.[facility] HospitalIn the event this information is protected by the Federal Confidentiality of Alcohol and Drug Abuse Patient Records regulations: The Federal rules restrict any use of the information to criminally investigate or prosecute any alcohol or drug abuse patient.[facility] HospitalIn the event this information is protected by the Federal Confidentiality of Alcohol and Drug Abuse Patient Records regulations: The Federal rules restrict any use of the information to criminally investigate or prosecute any alcohol or drug abuse patient.[facility] HospitalIn the event this information is protected by the Federal Confidentiality of Alcohol and Drug Abuse Patient Records regulations: The Federal rules restrict any use of the information to criminally investigate or prosecute any alcohol or drug abuse patient.[facility]In the event this information is protected by the Federal Confidentiality of Alcohol and Drug Abuse Patient Records regulations: The Federal rules restrict any use of the information to criminally investigate or prosecute any alcohol or drug abuse patient.[facility] HospitalIn the event this information is protected by the Federal Confidentiality of Alcohol and Drug Abuse Patient Records regulations: The Federal rules restrict any use of the information to criminally investigate or prosecute any alcohol or drug abuse patient.[facility] HospitalIn the event this information is protected by the Federal Confidentiality of Alcohol and Drug Abuse Patient Records regulations: The Federal rules restrict any use of the information to criminally investigate or prosecute any alcohol or drug abuse patient.[facility] HospitalIn the event this information is protected by the Federal Confidentiality of Alcohol and Drug Abuse Patient Records regulations: The Federal rules restrict any use of the information to criminally investigate or prosecute any alcohol or drug abuse patient.[facility] HospitalIn the event this information is protected by the Federal Confidentiality of Alcohol and Drug Abuse Patient Records regulations: The Federal rules restrict any use of the information to criminally investigate or prosecute any alcohol or drug abuse patient.[facility]In the event this information is protected by the Federal Confidentiality of Alcohol and Drug Abuse Patient Records regulations: The Federal rules restrict any use of the information to criminally investigate or prosecute any alcohol or drug abuse patient.[facility] HospitalIn the event this information is protected by the Federal Confidentiality of Alcohol and Drug Abuse Patient Records regulations: The Federal rules restrict any use of the information to criminally investigate or prosecute any alcohol or drug abuse patient.[facility]In the event this information is protected by the Federal Confidentiality of Alcohol and Drug Abuse Patient Records regulations: The Federal rules restrict any use of the information to criminally investigate or prosecute any alcohol or drug abuse patient.[facility]In the event this information is protected by the Federal Confidentiality of Alcohol and Drug Abuse Patient Records regulations: The Federal rules restrict any use of the information to criminally investigate or prosecute any alcohol or drug abuse patient.[facility] HospitalIn the event this information is protected by the Federal Confidentiality of Alcohol and Drug Abuse Patient Records regulations: The Federal rules restrict any use of the information to criminally investigate or prosecute any alcohol or drug abuse patient.[facility]In the event this information is protected by the Federal Confidentiality of Alcohol and Drug Abuse Patient Records regulations: The Federal rules restrict any use of the information to criminally investigate or prosecute any alcohol or drug abuse patient.[facility]In the event this information is protected by the Federal Confidentiality of Alcohol and Drug Abuse Patient Records regulations: The Federal rules restrict any use of the information to criminally investigate or prosecute any alcohol or drug abuse patient.[facility] HospitalIn the event this information is protected by the Federal Confidentiality of Alcohol and Drug Abuse Patient Records regulations: The Federal rules restrict any use of the information to criminally investigate or prosecute any alcohol or drug abuse patient.[facility]In the event this information is protected by the Federal Confidentiality of Alcohol and Drug Abuse Patient Records regulations: The Federal rules restrict any use of the information to criminally investigate or prosecute any alcohol or drug abuse patient.[facility] HospitalIn the event this information is protected by the Federal Confidentiality of Alcohol and Drug Abuse Patient Records regulations: The Federal rules restrict any use of the information to criminally investigate or prosecute any alcohol or drug abuse patient.[facility]In the event this information is protected by the Federal Confidentiality of Alcohol and Drug Abuse Patient Records regulations: The Federal rules restrict any use of the information to criminally investigate or prosecute any alcohol or drug abuse patient.[facility] HospitalIn the event this information is protected by the Federal Confidentiality of Alcohol and Drug Abuse Patient Records regulations: The Federal rules restrict any use of the information to criminally investigate or prosecute any alcohol or drug abuse patient.[facility]In the event this information is protected by the Federal Confidentiality of Alcohol and Drug Abuse Patient Records regulations: The Federal rules restrict any use of the information to criminally investigate or prosecute any alcohol or drug abuse patient.[facility]In the event this information is protected by the Federal Confidentiality of Alcohol and Drug Abuse Patient Records regulations: The Federal rules restrict any use of the information to criminally investigate or prosecute any alcohol or drug abuse patient.[facility]In the event this information is protected by the Federal Confidentiality of Alcohol and Drug Abuse Patient Records regulations: The Federal rules restrict any use of the information to criminally investigate or prosecute any alcohol or drug abuse patient.[facility] HospitalIn the event this information is protected by the Federal Confidentiality of Alcohol and Drug Abuse Patient Records regulations: The Federal rules restrict any use of the information to criminally investigate or prosecute any alcohol or drug abuse patient.[facility]In the event this information is protected by the Federal Confidentiality of Alcohol and Drug Abuse Patient Records regulations: The Federal rules restrict any use of the information to criminally investigate or prosecute any alcohol or drug abuse patient.[facility]In the event this information is protected by the Federal Confidentiality of Alcohol and Drug Abuse Patient Records regulations: The Federal rules restrict any use of the information to criminally investigate or prosecute any alcohol or drug abuse patient.[facility]In the event this information is protected by the Federal Confidentiality of Alcohol and Drug Abuse Patient Records regulations: The Federal rules restrict any use of the information to criminally investigate or prosecute any alcohol or drug abuse patient.[facility]In the event this information is protected by the Federal Confidentiality of Alcohol and Drug Abuse Patient Records regulations: The Federal rules restrict any use of the information to criminally investigate or prosecute any alcohol or drug abuse patient.[facility]In the event this information is protected by the Federal Confidentiality of Alcohol and Drug Abuse Patient Records regulations: The Federal rules restrict any use of the information to criminally investigate or prosecute any alcohol or drug abuse patient.[facility] HospitalIn the event this information is protected by the Federal Confidentiality of Alcohol and Drug Abuse Patient Records regulations: The Federal rules restrict any use of the information to criminally investigate or prosecute any alcohol or drug abuse patient.[facility]In the event this information is protected by the Federal Confidentiality of Alcohol and Drug Abuse Patient Records regulations: The Federal rules restrict any use of the information to criminally investigate or prosecute any alcohol or drug abuse patient.[facility]In the event this information is protected by the Federal Confidentiality of Alcohol and Drug Abuse Patient Records regulations: The Federal rules restrict any use of the information to criminally investigate or prosecute any alcohol or drug abuse patient.[facility]In the event this information is protected by the Federal Confidentiality of Alcohol and Drug Abuse Patient Records regulations: The Federal rules restrict any use of the information to criminally investigate or prosecute any alcohol or drug abuse patient.[facility] HospitalIn the event this information is protected by the Federal Confidentiality of Alcohol and Drug Abuse Patient Records regulations: The Federal rules restrict any use of the information to criminally investigate or prosecute any alcohol or drug abuse patient.[facility]In the event this information is protected by the Federal Confidentiality of Alcohol and Drug Abuse Patient Records regulations: The Federal rules restrict any use of the information to criminally investigate or prosecute any alcohol or drug abuse patient.[facility] HospitalIn the event this information is protected by the Federal Confidentiality of Alcohol and Drug Abuse Patient Records regulations: The Federal rules restrict any use of the information to criminally investigate or prosecute any alcohol or drug abuse patient.[facility] HospitalIn the event this information is protected by the Federal Confidentiality of Alcohol and Drug Abuse Patient Records regulations: The Federal rules restrict any use of the information to criminally investigate or prosecute any alcohol or drug abuse patient.[facility] HospitalIn the event this information is protected by the Federal Confidentiality of Alcohol and Drug Abuse Patient Records regulations: The Federal rules restrict any use of the information to criminally investigate or prosecute any alcohol or drug abuse patient.[facility] HospitalIn the event this information is protected by the Federal Confidentiality of Alcohol and Drug Abuse Patient Records regulations: The Federal rules restrict any use of the information to criminally investigate or prosecute any alcohol or drug abuse patient.[facility] HospitalIn the event this information is protected by the Federal Confidentiality of Alcohol and Drug Abuse Patient Records regulations: The Federal rules restrict any use of the information to criminally investigate or prosecute any alcohol or drug abuse patient.[facility] HospitalIn the event this information is protected by the Federal Confidentiality of Alcohol and Drug Abuse Patient Records regulations: The Federal rules restrict any use of the information to criminally investigate or prosecute any alcohol or drug abuse patient.[facility] HospitalIn the event this information is protected by the Federal Confidentiality of Alcohol and Drug Abuse Patient Records regulations: The Federal rules restrict any use of the information to criminally investigate or prosecute any alcohol or drug abuse patient.[facility] HospitalIn the event this information is protected by the Federal Confidentiality of Alcohol and Drug Abuse Patient Records regulations: The Federal rules restrict any use of the information to criminally investigate or prosecute any alcohol or drug abuse patient.[facility] HospitalIn the event this information is protected by the Federal Confidentiality of Alcohol and Drug Abuse Patient Records regulations: The Federal rules restrict any use of the information to criminally investigate or prosecute any alcohol or drug abuse patient.[facility] HospitalIn the event this information is protected by the Federal Confidentiality of Alcohol and Drug Abuse Patient Records regulations: The Federal rules restrict any use of the information to criminally investigate or prosecute any alcohol or drug abuse patient.[facility] HospitalIn the event this information is protected by the Federal Confidentiality of Alcohol and Drug Abuse Patient Records regulations: The Federal rules restrict any use of the information to criminally investigate or prosecute any alcohol or drug abuse patient.[facility] HospitalIn the event this information is protected by the Federal Confidentiality of Alcohol and Drug Abuse Patient Records regulations: The Federal rules restrict any use of the information to criminally investigate or prosecute any alcohol or drug abuse patient.[facility] HospitalIn the event this information is protected by the Federal Confidentiality of Alcohol and Drug Abuse Patient Records regulations: The Federal rules restrict any use of the information to criminally investigate or prosecute any alcohol or drug abuse patient.[facility] HospitalIn the event this information is protected by the Federal Confidentiality of Alcohol and Drug Abuse Patient Records regulations: The Federal rules restrict any use of the information to criminally investigate or prosecute any alcohol or drug abuse patient.[facility] HospitalIn the event this information is protected by the Federal Confidentiality of Alcohol and Drug Abuse Patient Records regulations: The Federal rules restrict any use of the information to criminally investigate or prosecute any alcohol or drug abuse patient.[facility] HospitalIn the event this information is protected by the Federal Confidentiality of Alcohol and Drug Abuse Patient Records regulations: The Federal rules restrict any use of the information to criminally investigate or prosecute any alcohol or drug abuse patient.[facility] HospitalIn the event this information is protected by the Federal Confidentiality of Alcohol and Drug Abuse Patient Records regulations: The Federal rules restrict any use of the information to criminally investigate or prosecute any alcohol or drug abuse patient.[facility] HospitalIn the event this information is protected by the Federal Confidentiality of Alcohol and Drug Abuse Patient Records regulations: The Federal rules restrict any use of the information to criminally investigate or prosecute any alcohol or drug abuse patient.[facility] HospitalIn the event this information is protected by the Federal Confidentiality of Alcohol and Drug Abuse Patient Records regulations: The Federal rules restrict any use of the information to criminally investigate or prosecute any alcohol or drug abuse patient.[facility] HospitalIn the event this information is protected by the Federal Confidentiality of Alcohol and Drug Abuse Patient Records regulations: The Federal rules restrict any use of the information to criminally investigate or prosecute any alcohol or drug abuse patient.[facility] HospitalIn the event this information is protected by the Federal Confidentiality of Alcohol and Drug Abuse Patient Records regulations: The Federal rules restrict any use of the information to criminally investigate or prosecute any alcohol or drug abuse patient.[facility] HospitalIn the event this information is protected by the Federal Confidentiality of Alcohol and Drug Abuse Patient Records regulations: The Federal rules restrict any use of the information to criminally investigate or prosecute any alcohol or drug abuse patient.[facility] HospitalIn the event this information is protected by the Federal Confidentiality of Alcohol and Drug Abuse Patient Records regulations: The Federal rules restrict any use of the information to criminally investigate or prosecute any alcohol or drug abuse patient.[facility] HospitalIn the event this information is protected by the Federal Confidentiality of Alcohol and Drug Abuse Patient Records regulations: The Federal rules restrict any use of the information to criminally investigate or prosecute any alcohol or drug abuse patient.[facility] HospitalIn the event this information is protected by the Federal Confidentiality of Alcohol and Drug Abuse Patient Records regulations: The Federal rules restrict any use of the information to criminally investigate or prosecute any alcohol or drug abuse patient.[facility] HospitalIn the event this information is protected by the Federal Confidentiality of Alcohol and Drug Abuse Patient Records regulations: The Federal rules restrict any use of the information to criminally investigate or prosecute any alcohol or drug abuse patient.[facility] HospitalIn the event this information is protected by the Federal Confidentiality of Alcohol and Drug Abuse Patient Records regulations: The Federal rules restrict any use of the information to criminally investigate or prosecute any alcohol or drug abuse patient.[facility] HospitalIn the event this information is protected by the Federal Confidentiality of Alcohol and Drug Abuse Patient Records regulations: The Federal rules restrict any use of the information to criminally investigate or prosecute any alcohol or drug abuse patient.[facility] HospitalIn the event this information is protected by the Federal Confidentiality of Alcohol and Drug Abuse Patient Records regulations: The Federal rules restrict any use of the information to criminally investigate or prosecute any alcohol or drug abuse patient.[facility] HospitalIn the event this information is protected by the Federal Confidentiality of Alcohol and Drug Abuse Patient Records regulations: The Federal rules restrict any use of the information to criminally investigate or prosecute any alcohol or drug abuse patient.[facility] HospitalIn the event this information is protected by the Federal Confidentiality of Alcohol and Drug Abuse Patient Records regulations: The Federal rules restrict any use of the information to criminally investigate or prosecute any alcohol or drug abuse patient.[facility] HospitalIn the event this information is protected by the Federal Confidentiality of Alcohol and Drug Abuse Patient Records regulations: The Federal rules restrict any use of the information to criminally investigate or prosecute any alcohol or drug abuse patient.[facility] HospitalIn the event this information is protected by the Federal Confidentiality of Alcohol and Drug Abuse Patient Records regulations: The Federal rules restrict any use of the information to criminally investigate or prosecute any alcohol or drug abuse patient.[facility] HospitalIn the event this information is protected by the Federal Confidentiality of Alcohol and Drug Abuse Patient Records regulations: The Federal rules restrict any use of the information to criminally investigate or prosecute any alcohol or drug abuse patient.[facility] HospitalIn the event this information is protected by the Federal Confidentiality of Alcohol and Drug Abuse Patient Records regulations: The Federal rules restrict any use of the information to criminally investigate or prosecute any alcohol or drug abuse patient.[facility] HospitalIn the event this information is protected by the Federal Confidentiality of Alcohol and Drug Abuse Patient Records regulations: The Federal rules restrict any use of the information to criminally investigate or prosecute any alcohol or drug abuse patient.[facility] HospitalIn the event this information is protected by the Federal Confidentiality of Alcohol and Drug Abuse Patient Records regulations: The Federal rules restrict any use of the information to criminally investigate or prosecute any alcohol or drug abuse patient.[facility] HospitalIn the event this information is protected by the Federal Confidentiality of Alcohol and Drug Abuse Patient Records regulations: The Federal rules restrict any use of the information to criminally investigate or prosecute any alcohol or drug abuse patient.[facility] HospitalIn the event this information is protected by the Federal Confidentiality of Alcohol and Drug Abuse Patient Records regulations: The Federal rules restrict any use of the information to criminally investigate or prosecute any alcohol or drug abuse patient.[facility] HospitalIn the event this information is protected by the Federal Confidentiality of Alcohol and Drug Abuse Patient Records regulations: The Federal rules restrict any use of the information to criminally investigate or prosecute any alcohol or drug abuse patient.[facility] HospitalIn the event this information is protected by the Federal Confidentiality of Alcohol and Drug Abuse Patient Records regulations: The Federal rules restrict any use of the information to criminally investigate or prosecute any alcohol or drug abuse patient.[facility] HospitalIn the event this information is protected by the Federal Confidentiality of Alcohol and Drug Abuse Patient Records regulations: The Federal rules restrict any use of the information to criminally investigate or prosecute any alcohol or drug abuse patient.[facility] HospitalIn the event this information is protected by the Federal Confidentiality of Alcohol and Drug Abuse Patient Records regulations: The Federal rules restrict any use of the information to criminally investigate or prosecute any alcohol or drug abuse patient.[facility] HospitalIn the event this information is protected by the Federal Confidentiality of Alcohol and Drug Abuse Patient Records regulations: The Federal rules restrict any use of the information to criminally investigate or prosecute any alcohol or drug abuse patient.[facility] HospitalIn the event this information is protected by the Federal Confidentiality of Alcohol and Drug Abuse Patient Records regulations: The Federal rules restrict any use of the information to criminally investigate or prosecute any alcohol or drug abuse patient.[facility] HospitalIn the event this information is protected by the Federal Confidentiality of Alcohol and Drug Abuse Patient Records regulations: The Federal rules restrict any use of the information to criminally investigate or prosecute any alcohol or drug abuse patient.[facility] HospitalIn the event this information is protected by the Federal Confidentiality of Alcohol and Drug Abuse Patient Records regulations: The Federal rules restrict any use of the information to criminally investigate or prosecute any alcohol or drug abuse patient.[facility] HospitalIn the event this information is protected by the Federal Confidentiality of Alcohol and Drug Abuse Patient Records regulations: The Federal rules restrict any use of the information to criminally investigate or prosecute any alcohol or drug abuse patient.[facility] HospitalIn the event this information is protected by the Federal Confidentiality of Alcohol and Drug Abuse Patient Records regulations: The Federal rules restrict any use of the information to criminally investigate or prosecute any alcohol or drug abuse patient.[facility] HospitalIn the event this information is protected by the Federal Confidentiality of Alcohol and Drug Abuse Patient Records regulations: The Federal rules restrict any use of the information to criminally investigate or prosecute any alcohol or drug abuse patient.[facility] HospitalIn the event this information is protected by the Federal Confidentiality of Alcohol and Drug Abuse Patient Records regulations: The Federal rules restrict any use of the information to criminally investigate or prosecute any alcohol or drug abuse patient.[facility] HospitalIn the event this information is protected by the Federal Confidentiality of Alcohol and Drug Abuse Patient Records regulations: The Federal rules restrict any use of the information to criminally investigate or prosecute any alcohol or drug abuse patient.[facility] HospitalIn the event this information is protected by the Federal Confidentiality of Alcohol and Drug Abuse Patient Records regulations: The Federal rules restrict any use of the information to criminally investigate or prosecute any alcohol or drug abuse patient.[facility] HospitalIn the event this information is protected by the Federal Confidentiality of Alcohol and Drug Abuse Patient Records regulations: The Federal rules restrict any use of the information to criminally investigate or prosecute any alcohol or drug abuse patient.[facility] HospitalIn the event this information is protected by the Federal Confidentiality of Alcohol and Drug Abuse Patient Records regulations: The Federal rules restrict any use of the information to criminally investigate or prosecute any alcohol or drug abuse patient.[facility] HospitalIn the event this information is protected by the Federal Confidentiality of Alcohol and Drug Abuse Patient Records regulations: The Federal rules restrict any use of the information to criminally investigate or prosecute any alcohol or drug abuse patient.[facility] HospitalIn the event this information is protected by the Federal Confidentiality of Alcohol and Drug Abuse Patient Records regulations: The Federal rules restrict any use of the information to criminally investigate or prosecute any alcohol or drug abuse patient.[facility]In the event this information is protected by the Federal Confidentiality of Alcohol and Drug Abuse Patient Records regulations: The Federal rules restrict any use of the information to criminally investigate or prosecute any alcohol or drug abuse patient.[facility] HospitalIn the event this information is protected by the Federal Confidentiality of Alcohol and Drug Abuse Patient Records regulations: The Federal rules restrict any use of the information to criminally investigate or prosecute any alcohol or drug abuse patient.[facility]In the event this information is protected by the Federal Confidentiality of Alcohol and Drug Abuse Patient Records regulations: The Federal rules restrict any use of the information to criminally investigate or prosecute any alcohol or drug abuse patient.[facility] HospitalIn the event this information is protected by the Federal Confidentiality of Alcohol and Drug Abuse Patient Records regulations: The Federal rules restrict any use of the information to criminally investigate or prosecute any alcohol or drug abuse patient.[facility] HospitalIn the event this information is protected by the Federal Confidentiality of Alcohol and Drug Abuse Patient Records regulations: The Federal rules restrict any use of the information to criminally investigate or prosecute any alcohol or drug abuse patient.[facility] HospitalIn the event this information is protected by the Federal Confidentiality of Alcohol and Drug Abuse Patient Records regulations: The Federal rules restrict any use of the information to criminally investigate or prosecute any alcohol or drug abuse patient.[facility] HospitalIn the event this information is protected by the Federal Confidentiality of Alcohol and Drug Abuse Patient Records regulations: The Federal rules restrict any use of the information to criminally investigate or prosecute any alcohol or drug abuse patient.[facility] HospitalIn the event this information is protected by the Federal Confidentiality of Alcohol and Drug Abuse Patient Records regulations: The Federal rules restrict any use of the information to criminally investigate or prosecute any alcohol or drug abuse patient.[facility] HospitalIn the event this information is protected by the Federal Confidentiality of Alcohol and Drug Abuse Patient Records regulations: The Federal rules restrict any use of the information to criminally investigate or prosecute any alcohol or drug abuse patient.[facility] HospitalIn the event this information is protected by the Federal Confidentiality of Alcohol and Drug Abuse Patient Records regulations: The Federal rules restrict any use of the information to criminally investigate or prosecute any alcohol or drug abuse patient.[facility] HospitalIn the event this information is protected by the Federal Confidentiality of Alcohol and Drug Abuse Patient Records regulations: The Federal rules restrict any use of the information to criminally investigate or prosecute any alcohol or drug abuse patient.[facility] HospitalIn the event this information is protected by the Federal Confidentiality of Alcohol and Drug Abuse Patient Records regulations: The Federal rules restrict any use of the information to criminally investigate or prosecute any alcohol or drug abuse patient.[facility] HospitalIn the event this information is protected by the Federal Confidentiality of Alcohol and Drug Abuse Patient Records regulations: The Federal rules restrict any use of the information to criminally investigate or prosecute any alcohol or drug abuse patient.[facility] HospitalIn the event this information is protected by the Federal Confidentiality of Alcohol and Drug Abuse Patient Records regulations: The Federal rules restrict any use of the information to criminally investigate or prosecute any alcohol or drug abuse patient.[facility] HospitalIn the event this information is protected by the Federal Confidentiality of Alcohol and Drug Abuse Patient Records regulations: The Federal rules restrict any use of the information to criminally investigate or prosecute any alcohol or drug abuse patient.[facility] HospitalIn the event this information is protected by the Federal Confidentiality of Alcohol and Drug Abuse Patient Records regulations: The Federal rules restrict any use of the information to criminally investigate or prosecute any alcohol or drug abuse patient.[facility] HospitalIn the event this information is protected by the Federal Confidentiality of Alcohol and Drug Abuse Patient Records regulations: The Federal rules restrict any use of the information to criminally investigate or prosecute any alcohol or drug abuse patient.[facility] HospitalIn the event this information is protected by the Federal Confidentiality of Alcohol and Drug Abuse Patient Records regulations: The Federal rules restrict any use of the information to criminally investigate or prosecute any alcohol or drug abuse patient.[facility] HospitalIn the event this information is protected by the Federal Confidentiality of Alcohol and Drug Abuse Patient Records regulations: The Federal rules restrict any use of the information to criminally investigate or prosecute any alcohol or drug abuse patient.[facility] HospitalIn the event this information is protected by the Federal Confidentiality of Alcohol and Drug Abuse Patient Records regulations: The Federal rules restrict any use of the information to criminally investigate or prosecute any alcohol or drug abuse patient.[facility] HospitalIn the event this information is protected by the Federal Confidentiality of Alcohol and Drug Abuse Patient Records regulations: The Federal rules restrict any use of the information to criminally investigate or prosecute any alcohol or drug abuse patient.[facility] HospitalIn the event this information is protected by the Federal Confidentiality of Alcohol and Drug Abuse Patient Records regulations: The Federal rules restrict any use of the information to criminally investigate or prosecute any alcohol or drug abuse patient.[facility] HospitalIn the event this information is protected by the Federal Confidentiality of Alcohol and Drug Abuse Patient Records regulations: The Federal rules restrict any use of the information to criminally investigate or prosecute any alcohol or drug abuse patient.[facility] HospitalIn the event this information is protected by the Federal Confidentiality of Alcohol and Drug Abuse Patient Records regulations: The Federal rules restrict any use of the information to criminally investigate or prosecute any alcohol or drug abuse patient.[facility] HospitalIn the event this information is protected by the Federal Confidentiality of Alcohol and Drug Abuse Patient Records regulations: The Federal rules restrict any use of the information to criminally investigate or prosecute any alcohol or drug abuse patient.[facility] HospitalIn the event this information is protected by the Federal Confidentiality of Alcohol and Drug Abuse Patient Records regulations: The Federal rules restrict any use of the information to criminally investigate or prosecute any alcohol or drug abuse patient.[facility] HospitalIn the event this information is protected by the Federal Confidentiality of Alcohol and Drug Abuse Patient Records regulations: The Federal rules restrict any use of the information to criminally investigate or prosecute any alcohol or drug abuse patient.[facility] HospitalIn the event this information is protected by the Federal Confidentiality of Alcohol and Drug Abuse Patient Records regulations: The Federal rules restrict any use of the information to criminally investigate or prosecute any alcohol or drug abuse patient.[facility] HospitalIn the event this information is protected by the Federal Confidentiality of Alcohol and Drug Abuse Patient Records regulations: The Federal rules restrict any use of the information to criminally investigate or prosecute any alcohol or drug abuse patient.[facility] HospitalIn the event this information is protected by the Federal Confidentiality of Alcohol and Drug Abuse Patient Records regulations: The Federal rules restrict any use of the information to criminally investigate or prosecute any alcohol or drug abuse patient.[facility] HospitalIn the event this information is protected by the Federal Confidentiality of Alcohol and Drug Abuse Patient Records regulations: The Federal rules restrict any use of the information to criminally investigate or prosecute any alcohol or drug abuse patient.[facility] HospitalIn the event this information is protected by the Federal Confidentiality of Alcohol and Drug Abuse Patient Records regulations: The Federal rules restrict any use of the information to criminally investigate or prosecute any alcohol or drug abuse patient.[facility] HospitalIn the event this information is protected by the Federal Confidentiality of Alcohol and Drug Abuse Patient Records regulations: The Federal rules restrict any use of the information to criminally investigate or prosecute any alcohol or drug abuse patient.[facility] HospitalIn the event this information is protected by the Federal Confidentiality of Alcohol and Drug Abuse Patient Records regulations: The Federal rules restrict any use of the information to criminally investigate or prosecute any alcohol or drug abuse patient.[facility] HospitalIn the event this information is protected by the Federal Confidentiality of Alcohol and Drug Abuse Patient Records regulations: The Federal rules restrict any use of the information to criminally investigate or prosecute any alcohol or drug abuse patient.[facility] HospitalIn the event this information is protected by the Federal Confidentiality of Alcohol and Drug Abuse Patient Records regulations: The Federal rules restrict any use of the information to criminally investigate or prosecute any alcohol or drug abuse patient.[facility] HospitalIn the event this information is protected by the Federal Confidentiality of Alcohol and Drug Abuse Patient Records regulations: The Federal rules restrict any use of the information to criminally investigate or prosecute any alcohol or drug abuse patient.[facility] HospitalIn the event this information is protected by the Federal Confidentiality of Alcohol and Drug Abuse Patient Records regulations: The Federal rules restrict any use of the information to criminally investigate or prosecute any alcohol or drug abuse patient.[facility] HospitalIn the event this information is protected by the Federal Confidentiality of Alcohol and Drug Abuse Patient Records regulations: The Federal rules restrict any use of the information to criminally investigate or prosecute any alcohol or drug abuse patient.[facility] HospitalIn the event this information is protected by the Federal Confidentiality of Alcohol and Drug Abuse Patient Records regulations: The Federal rules restrict any use of the information to criminally investigate or prosecute any alcohol or drug abuse patient.[facility] HospitalIn the event this information is protected by the Federal Confidentiality of Alcohol and Drug Abuse Patient Records regulations: The Federal rules restrict any use of the information to criminally investigate or prosecute any alcohol or drug abuse patient.[facility] HospitalIn the event this information is protected by the Federal Confidentiality of Alcohol and Drug Abuse Patient Records regulations: The Federal rules restrict any use of the information to criminally investigate or prosecute any alcohol or drug abuse patient.[facility] HospitalIn the event this information is protected by the Federal Confidentiality of Alcohol and Drug Abuse Patient Records regulations: The Federal rules restrict any use of the information to criminally investigate or prosecute any alcohol or drug abuse patient.[facility] HospitalIn the event this information is protected by the Federal Confidentiality of Alcohol and Drug Abuse Patient Records regulations: The Federal rules restrict any use of the information to criminally investigate or prosecute any alcohol or drug abuse patient.[facility] HospitalIn the event this information is protected by the Federal Confidentiality of Alcohol and Drug Abuse Patient Records regulations: The Federal rules restrict any use of the information to criminally investigate or prosecute any alcohol or drug abuse patient.[facility] HospitalIn the event this information is protected by the Federal Confidentiality of Alcohol and Drug Abuse Patient Records regulations: The Federal rules restrict any use of the information to criminally investigate or prosecute any alcohol or drug abuse patient.[facility] HospitalIn the event this information is protected by the Federal Confidentiality of Alcohol and Drug Abuse Patient Records regulations: The Federal rules restrict any use of the information to criminally investigate or prosecute any alcohol or drug abuse patient.[facility] HospitalIn the event this information is protected by the Federal Confidentiality of Alcohol and Drug Abuse Patient Records regulations: The Federal rules restrict any use of the information to criminally investigate or prosecute any alcohol or drug abuse patient.[facility] HospitalIn the event this information is protected by the Federal Confidentiality of Alcohol and Drug Abuse Patient Records regulations: The Federal rules restrict any use of the information to criminally investigate or prosecute any alcohol or drug abuse patient.[facility] HospitalIn the event this information is protected by the Federal Confidentiality of Alcohol and Drug Abuse Patient Records regulations: The Federal rules restrict any use of the information to criminally investigate or prosecute any alcohol or drug abuse patient.[facility] HospitalIn the event this information is protected by the Federal Confidentiality of Alcohol and Drug Abuse Patient Records regulations: The Federal rules restrict any use of the information to criminally investigate or prosecute any alcohol or drug abuse patient.[facility] HospitalIn the event this information is protected by the Federal Confidentiality of Alcohol and Drug Abuse Patient Records regulations: The Federal rules restrict any use of the information to criminally investigate or prosecute any alcohol or drug abuse patient.[facility] Reason for Visit (unrecogniz ed section [...] Therapy Specialty Diagnoses / Procedures Referred By Contac t Referred To Contact [facility] Diagnoses Radicular low back pain Chronic pain of right knee Procedures PT REHAB FOLLOW UP ORDER THERAPEUTIC EXERCISES RE, EA 15 MIN. Сергей Espinoza MD [address] [place] [address] [facility] [place] [facility] [place] [address] Referral ID Status Reason Start Date Expiration Date Visits Requested Visits Authorized [id number] Authorized PCP Requested Referral Auto-Generate d Referral [...] 06/25/2022 Specialty Diagnoses / Procedures [facility] CT [facility] Diagnoses Lung nodules Procedures CT CHEST WO IVCON DIAGNOSTIC COMPUTED TOMOGRAPHY THORAX W/O Sona Mayers MD [address] [place] [address] Ct Imaging Referral ID Status Reason Start Date Expiration Date V isits Requested Visits Authorized [id number] Closed Auto-Generate d Referral 07/09/2022 05/11/2023 1 [...] 12/18/2022 Specialty Diagnoses / Procedures [facility] Diagnoses Interstitial pulmonary disease (HCC) Procedures CT CHEST WO IVCON DIAGNOSTIC COMPUTED TOMOGRAPHY THORAX W/O Sona Mayers MD [address] [place] [address] [place] [address] Referral ID Status Reason Start Date Expiration Date V isits Requested Visits Authorized [id number] Closed Auto-Generate d Referral 01/28/2022 11/27/2022 1 1 Reason Comments F/U 3 months Reason Comments Patient Update Reason Onset Date Comments Refill Request 02/06/2023 Reason Onset Date Comments Refill Request 02/12/2023 Reason Onset Date Comments Refill Request 02/19/2023 Reason Onset Date Comments Refill Request 04/14/2023 Reason Comments Diarrhea Reason Onset Date Comments Refill Request 04/23/2023 Reason Comments New Patient Room 1NewDr Neris R eferral for SOB (Pulm Fibrosis)3L O2 NC [...] Medical Records Externa l referral to Neurological [place] Reason Onset Date Comments Refill Request 07/16/2023 [...] W/O CNTRST Sona Grier MD [address] [place] [address] Ct Imaging [facility] Referral ID Status Reason Start Date Expiration Date Visits Requested Visits Authorized [id number] Authorized Auto-Generat ed Referral 08/25/2023 09/24/2023 2 2 Reason Comments Spirometry Specialty Diagnoses / Procedures Referred By Contac t Referred To [facility] Diagnoses Interstitial pulmonary disease (HCC) Procedures LUNG DIFFUSION CAPACITY (DLCO) DIFFUSING CAPACITY Sona Grier MD [address] [place] [address] Respiratory [place] [id number] Referral ID Status Reason Start Date Expiration Date V isits Requested Visits Authorized [id number] Closed Auto-Generate d Referral 03/24/2023 04/22/2024 1 1 Specialty Diagnoses / Procedures Referred By Contac t Referred To [facility] Diagnoses Interstitial pulmonary disease (HCC) Procedures LUNG VOLUMES Sona Grier MD [address] [place] [address] [place] [id number] Referral ID Status Reason Start Date Expiration Date V isits Requested Visits Authorized [id number] Closed Auto-Generate d Referral 07/22/2023 03/01/2024 2 1 Specialty Diagnoses / Procedures Referred By Contac t Referred To [facility] Diagnoses Interstitial pulmonary disease (HCC) Procedures SPIROMETRY WITH DILATOR IF OBSTRUCTED BRNCDILAT RSPSE SPMTRY PRE&POST-BRNCDILAT ADMN Sona Grier MD [address] [place] [address] [address] Referral ID Status Reason Start Date Expiration Date V isits Requested Visits Authorized [id number] Closed Auto-Generate d Referral 03/24/2023 04/22/2024 1 1 Reason Comments Follow Up Interstitial Pulmona ry Disease Reason Comments Release Of Medical Records tanja [facility] Care Teams (unrecognized sec tion and content) Unloading Checker Relationship Specialty Start Date End Date Сергей Espinoza MD [address], [place] [id number] PCP - General Internal Medicine 01/21/17 Unloading Checker Relationship Specialty Start Date End Date [place], Сергей Salguero MD [address] [place] [address] PCP - General Internal Medicine 01/21/17 Unloading Checker Relationship Specialty Start Date End Date [place], Сергей Salguero MD [address] [place] [address] PCP - General Internal Medicine 01/21/17 Unloading Checker Relationship Specialty Start Date End Date Lucina, Сергей Salguero MD [address] [place] [address] PCP - General Internal Medicine 01/21/17 Unloading Checker Relationship Specialty Start Date End Date Lucina, Сергей Salguero MD [address] [place] [address] PCP - General Internal Medicine 01/21/17 Unloading Checker Relationship Specialty Start Date End Date [place], Сергей Salguero MD [address] [place] [address] PCP - General Internal Medicine 01/21/17 Unloading Checker Relationship Specialty Start Date End Date Lucina, Сергей Salguero MD [address] [place] [address] PCP - General Internal Medicine 01/21/17 Unloading Checker Relationship Specialty Start Date End Date Lucina, Сергей Salguero MD [address] [place] [address] PCP - General Internal Medicine 01/21/17 Unloading Checker Relationship Specialty Start Date End Date Lucina, Сергей Salguero MD [address] [place] [address] PCP - General Internal Medicine 01/21/17 Unloading Checker Relationship Specialty Start Date End Date [place], Сергей Salguero MD [address] [place] [address] PCP - General Internal Medicine 01/21/17 Unloading Checker Relationship Specialty Start Date End Date [place], Сергей Salguero MD [address] [place] [address] PCP - General Internal Medicine 01/21/17 Unloading Checker Relationship Specialty Start Date End Date [place], Сергей Salguero MD [address] [place] [address] PCP - General Internal Medicine 01/21/17 Unloading Checker Relationship Specialty Start Date End Date [place], Сергей Salguero MD [address] [place] [address] PCP - General Internal Medicine 01/21/17 Unloading Checker Relationship Specialty Start Date End Date [place], Сергей Salguero MD [address] [place] [address] PCP - General Internal Medicine 01/21/17 Unloading Checker Relationship Specialty Start Date End Date [place], Сергей Salguero MD [address] [place] [address] PCP - General Internal Medicine 01/21/17 Unloading Checker Relationship Specialty Start Date End Date [place], Сергей Salguero MD [address] [place] [address] PCP - General Internal Medicine 01/21/17 Unloading Checker Relationship Specialty Start Date End Date [place], Сергей Salguero MD [address] [place] [address] PCP - General Internal Medicine 01/21/17 Unloading Checker Relationship Specialty Start Date End Date [place], Сергей Salguero MD [address] [place] [address] PCP - General Internal Medicine 01/21/17 Unloading Checker Relationship Specialty Start Date End Date Lucina, Сергей Salguero MD [address] [place] [address] PCP - General Internal Medicine 01/21/17 Unloading Checker Relationship Specialty Start Date End Date Lucina, Сергей Salguero MD [address] [place] [address] PCP - General Internal Medicine 01/21/17 Unloading Checker Relationship Specialty Start Date End Date Lucina, Сергей Salguero MD [facility] [place] [address] PCP - General Internal Medicine 01/21/17 Unloading Checker Relationship Specialty Start Date End Date [place], Сергей Salguero MD [facility] [place] [address] PCP - General Internal Medicine 01/21/17 Unloading Checker Relationship Specialty Start Date End Date [place], Сергей Salguero MD [address] [place] [address] PCP - General Internal Medicine 01/21/17 Unloading Checker Relationship Specialty Start Date End Date [place], Сергей Salguero MD [address] [place] [address] PCP - General Internal Medicine 01/21/17 Unloading Checker Relationship Specialty Start Date End Date [place], Сергей Salguero MD [address] [place] [address] PCP - General Internal Medicine 01/21/17 Unloading Checker Relationship Specialty Start Date End Date [place], Сергей Salguero MD [facility] [place] [address] PCP - General Internal Medicine 01/21/17 Unloading Checker Relationship Specialty Start Date End Date [place], Сергей Salguero MD [address] [place] [address] PCP - General Internal Medicine 01/21/17 Unloading Checker Relationship Specialty Start Date End Date BrooklynСергей MD [address] [place] [address] PCP - General Internal Medicine 01/21/17 Unloading Checker Relationship Specialty Start Date End Date [place], Сергей Salguero MD [address] [place] [address] PCP - General Internal Medicine 01/21/17 Unloading Checker Relationship Specialty Start Date End Date [place], Сергей Salguero MD [address] [place] [address] PCP - General Internal Medicine 01/21/17 Unloading Checker Relationship Specialty Start Date End Date Lucina, Сергей Salguero MD [address] [place] [address] PCP - General Internal Medicine 01/21/17 Unloading Checker Relationship Specialty Start Date End Date Lucina, Сергей Salguero MD [address] [place] [address] PCP - General Internal Medicine 01/21/17 Unloading Checker Relationship Specialty Start Date End Date Lucina, Сергей Salguero MD [address] [place] [address] PCP - General Internal Medicine 01/21/17 Unloading Checker Relationship Specialty Start Date End Date Lucina, Сергей Salguero MD [address] [place] [address] PCP - General Internal Medicine 01/21/17 Unloading Checker Relationship Specialty Start Date End Date [place], Сергей Salguero MD [address] [place] [address] PCP - General Internal Medicine 01/21/17 Unloading Checker Relationship Specialty Start Date End Date [place], Сергей Salguero MD [facility] [place] [address] PCP - General Internal Medicine 01/21/17 Unloading Checker Relationship Specialty Start Date End Date [place], Сергей Salguero MD [facility] [place] [address] PCP - General Internal Medicine 01/21/17 Unloading Checker Relationship Specialty Start Date End Date [place], Сергей Salguero MD [address] [place] [address] PCP - General Internal Medicine 01/21/17 Unloading Checker Relationship Specialty Start Date End Date Lucina, Сергей Salguero MD [address] [place] [address] PCP - General Internal Medicine 01/21/17 Unloading Checker Relationship Specialty Start Date End Date Lucina, Сергей Salguero MD [facility] [place] [address] PCP - General Internal Medicine 01/21/17 Unloading Checker Relationship Specialty Start Date End Date [place], Сергей Salguero MD [facility] [place] [address] PCP - General Internal Medicine 01/21/17 Unloading Checker Relationship Specialty Start Date End Date Lucina, Сергей Salguero MD [address] [place] [address] PCP - General Internal Medicine 01/21/17 Unloading Checker Relationship Specialty Start Date End Date Lucina, Сергей Salguero MD [address] [place] [address] PCP - General Internal Medicine 01/21/17 Unloading Checker Relationship Specialty Start Date End Date Lucina, Сергей Salguero MD [address] [place] [address] PCP - General Internal Medicine 01/21/17 Unloading Checker Relationship Specialty Start Date End Date [place], Сергей Salguero MD [address] [place] [address] PCP - General Internal Medicine 01/21/17 Unloading Checker Relationship Specialty Start Date End Date [place], Сергей Salguero MD [address] [place] [address] PCP - General Internal Medicine 01/21/17 Unloading Checker Relationship Specialty Start Date End Date Lucina, Сергей Salguero MD [address] [place] [address] PCP - General Internal Medicine 01/21/17 Unloading Checker Relationship Specialty Start Date End Date Lucina, Сергей Salguero MD [address] [place] [address] PCP - General Internal Medicine 01/21/17 Unloading Checker Relationship Specialty Start Date End Date Lucina, Сергей Salguero MD [address] [place] [address] PCP - General Internal Medicine 01/21/17 Unloading Checker Relationship Specialty Start Date End Date [place], Сергей Salguero MD [address] [place] [address] PCP - General Internal Medicine 01/21/17 Unloading Checker Relationship Specialty Start Date End Date [place], Сергей Salguero MD [address] [place] [address] PCP - General Internal Medicine 01/21/17 Unloading Checker Relationship Specialty Start Date End Date [place], Сергей Salguero MD [address] [place] [address] PCP - General Internal Medicine 01/21/17 Unloading Checker Relationship Specialty Start Date End Date Lucina, Сергей Salguero MD [address] [place] [address] PCP - General Internal Medicine 01/21/17 Unloading Checker Relationship Specialty Start Date End Date Lucina, Сергей Salguero MD [address] [place] [address] PCP - General Internal Medicine 01/21/17 Unloading Checker Relationship Specialty Start Date End Date Lucina, Сергей Salguero MD [address] [place] [address] PCP - General Internal Medicine 01/21/17 Unloading Checker Relationship Specialty Start Date End Date Lucina, Сергей Salguero MD [address] [place] [address] PCP - General Internal Medicine 01/21/17 Unloading Checker Relationship Specialty Start Date End Date Lucina, Сергей Salguero MD [address] [place] [address] PCP - General Internal Medicine 01/21/17 Unloading Checker Relationship Specialty Start Date End Date [place], Сергей Salguero MD [address] [place] [address] PCP - General Internal Medicine 01/21/17 Unloading Checker Relationship Specialty Start Date End Date Lucina, Сергей Salguero MD [address] [place] [address] PCP - General Internal Medicine 01/21/17 Unloading Checker Relationship Specialty Start Date End Date Lucina, Сергей Salguero MD [address] [place] [address] PCP - General Internal Medicine 01/21/17 Unloading Checker Relationship Specialty Start Date End Date [place], Сергей Salguero MD [address] [place] [address] PCP - General Internal Medicine 01/21/17 Unloading Checker Relationship Specialty Start Date End Date Lucina, Сергей Salguero MD [address] [place] [address] PCP - General Internal Medicine 01/21/17 Brayden Friend MD [address] [place] [address] Referring Team Anesthesiology 07/16/23 Unloading Checker Relationship Specialty Start Date End Date [place], Сергей Salguero MD [address] [place] [address] PCP - General Internal Medicine 01/21/17 Brayden Friend MD [address] [address] [place] Referring Team Anesthesiology 07/16/23 Unloading Checker Relationship Specialty Start Date End Date BrooklynСергей louis MD [address] [place] [address] PCP - General Internal Medicine 01/21/17 Brayden Friend MD [address] [address] NI Referring Team Anesthesiology 07/16/23 Unloading Checker Relationship Specialty Start Date End Date BrooklynСергей MD [address] [place] [address] PCP - General Internal Medicine 01/21/17 Brayden Friend MD [address] [place] [address] NI Referring Team Anesthesiology 07/16/23 Unloading Checker Relationship Specialty Start Date End Date LucinaСергей MD [address] [place] [address] PCP - General Internal Medicine 01/21/17 Brayden Friend MD [address] [address] NI Referring Team Anesthesiology 07/16/23 Unloading Checker Relationship Specialty Start Date End Date LucinaСергей MD [address] [place] [address] PCP - General Internal Medicine 01/21/17 Brayden Friend MD [address] [address] NI Referring Team Anesthesiology 07/16/23 Unloading Checker Relationship Specialty Start Date End Date Lucina, Сергей Sagluero MD [address] [place] [address] PCP - General Internal Medicine 01/21/17 Brayden Friend MD [address] [address] NI Referring Team Anesthesiology 07/16/23 Unloading Checker Relationship Specialty Start Date End Date Lucina, Сергей Salguero MD [address] [place] [address] PCP - General Internal Medicine 01/21/17 Brayden Friend MD [address] [address] NI Referring Team Anesthesiology 07/16/23 Unloading Checker Relationship Specialty Start Date End Date Lucina, Сергей Salguero MD [address] [place] [address] PCP - General Internal Medicine 01/21/17 Brayden Friend MD [address] [address] NI Referring Team Anesthesiology 07/16/23 Unloading Checker Relationship Specialty Start Date End Date [place], Сергей Salguero MD [address] [place] [address] PCP - General Internal Medicine 01/21/17 Unloading Checker Relationship Specialty Start Date End Date [place], Сергей Salguero MD [address] [place] [address] PCP - General Internal Medicine 01/21/17 Unloading Checker Relationship Specialty Start Date End Date Lucina, Сергей Salguero MD [address] [place] [address] PCP - General Internal Medicine 01/21/17 Brayden Friend MD [address] [place] [address] [place] Referring Team Anesthesiology 07/16/23 Team Status: Active Member Role Status Dates Dr. Weston Bowers MD Family Provider Active Dr. Сергей Espinoza MD Primary Care Provider Active Team Status: Inactive Member Role Status Dates Dr. Сергей Espinoza MD Primary Care Provider Active Start: March 04, 2024 End: March 04, 2024 Stacie Chen BOTTLING SUPERVISOR, BOTTLING SUPERVISOR-C Attending Provider Active Start: March 04, 2024 [...] 2024 End: April 21, 2024 Stacie Chen NP, BOTTLING SUPERVISOR-C Attending Provider Active Start: April 21, 2024 [...] End: May 11, 2024 Stacie Chen NP BOTTLING SUPERVISOR-C Attending Provider Active Start: May 11, 2024 [...] 2024 End: July 26, 2024 Stacie Chen NP, NP-C Attending Provider Active Start: July 26, 2024 [...] End: July 26, 2024 Stacie Chen NP BOTTLING SUPERVISOR-C Attending Provider Active Start: July 26, 2024 [...] End: August 08, 2024 Stacie Chen NP BOTTLING SUPERVISOR-C Attending Provider Active Start: August 08, 2024 [...] End: July 26, 2024 Stacie Chen NP BOTTLING SUPERVISOR-C Attending Provider Active Start: July 26, 2024 [...] 2024 End: August 08, 2024 Stacie Chen BOTTLING SUPERVISOR, BOTTLING SUPERVISOR-C Attending Provider Active Start: August 08, 2024 End: August 08, 2024 Team Status: Active Member Role/Relationship Status Dates Dr. Сергей Espinoza MD Primary Care Provider Active Start: September 13, 2024 Stacie DELGADO, BOTTLING SUPERVISOR-C Attending Provider Active Start: September 13, 2024 Stacie DELGADO, BOTTLING SUPERVISOR-C Referring Provider Active Start: September 13, 2024 Team Status: Inactive Member Role/Relationship Status Dates Dr. Сергей Espinoza MD Primary Care Provider Active Start: September 16, 2024 End: September 16, 2024 Stacie Chen BOTTLING SUPERVISOR, BOTTLING SUPERVISOR-C Attending Provider Active Start: September 16, 2024 End: September 16, 2024 Team Status: Active Member Role/Relationship Status Dates Dr. Сергей Espinoza MD Primary Care Provider Active Start: October 03, 2024 Stacie DELGADO, BOTTLING SUPERVISOR-C Attending Provider Active Start: October 03, 2024 [...] 2024 End: September 13, 2024 Stacie Chen BOTTLING SUPERVISOR, BOTTLING SUPERVISOR-C Attending Provider Active Start: September 13, 2024 End: September 13, 2024 Team Status: Inactive Member Role/Relationship Status Dates Dr. Сергей Espinoza MD Primary Care Provider Active Start: September 16, 2024 End: September 16, 2024 Stacie Chen BOTTLING SUPERVISOR, BOTTLING SUPERVISOR-C Attending Provider Active Start: September 16, 2024 End: September 16, 2024 Team Status: Active Member Role/Relationship Status Dates Dr. Сергей Espinoza MD Primary Care Provider Active Start: October 03, 2024 JEREMIAH Quiroz Attending Provider Active Start: October 03, 2024 Team Status: Active Member Role/Relationship Status Dates Dr. Сергей Espinoza MD Primary Care Provider Active Start: October 06, 2024 Anais DELGADO MD Attending Provider Active Start: October 06, 2024 Anais DELGADO MD Referring Provider Active Start: October 06, 2024 Team Status: Inactive Member Role/Relationship Status Dates Dr. Сергей Espinoza MD Primary Care Provider Active Start: October 04, 2024 End: October 04, 2024 Dr. Anais Osullivan MD Attending Provider Active Start: October 04, 2024 End: October 04, 2024 Team Status: Active Member Role/Relationship Status Dates Dr. Сергей Espinoza MD Primary Care Provider Active Start: October 06, 2024 Anais DELGADO MD Attending Provider Active Start: October 06, 2024 Anais DELGADO MD Referring Provider Active Start: October 06, 2024 Team Status: Active Member Role/Relationship Status Dates Dr. Сергей Espinoza MD Primary Care Provider Active Start: October 18, 2024 Anais DELGADO MD Attending Provider Active Start: October 18, 2024 Anais DELGADO MD Referring Provider Active Start: October 18, 2024 Team Status: Inactive Member Role/Relationship Status Dates Dr. Сергей Espinoza MD Primary Care Provider Active Start: July 19, 2024 End: July 19, 2024 Anais DELGADO MD Attending Provider Active Start: July 19, 2024 End: July 19, 2024 Team Status: Inactive Member Role/Relationship Status Dates Dr. Сергей Espinoza MD Primary Care Provider Active Start: July 26, 2024 End: July 26, 2024 Stacie Chen NP, NP-C Attending Provider Active Start: July 26, 2024 [...] 2024 End: August 08, 2024 Stacie Chen BOTTLING SUPERVISOR, BOTTLING SUPERVISOR-C Attending Provider Active Start: August 08, 2024 End: August 08, 2024 Team Status: Active Member Role/Relationship Status Dates Dr. Сергей Espinoza MD Primary Care Provider Active Start: September 13, 2024 Stacie DELGADO, BOTTLING SUPERVISOR-C Attending Provider Active Start: September 13, 2024 Stacie DELGADO, BOTTLING SUPERVISOR-C Referring Provider Active Start: September 13, 2024 Team Status: Inactive Member Role/Relationship Status Dates Dr. Сергей Espinoza MD Primary Care Provider Active Start: September 13, 2024 End: September 13, 2024 Stacie Chen NP, BOTTLING SUPERVISOR-C Attending Provider Active Start: September 13, 2024 End: September 13, 2024 Team Status: Inactive Member Role/Relationship Status Dates Dr. Сергей Espinoza MD Primary Care Provider Active Start: October 04, 2024 End: October 04, 2024 Dr. Anais Osullivan MD Attending Provider Active Start: October 04, 2024 End: October 04, 2024 Team Status: Active Member Role/Relationship Status Dates Dr. Сергей Espinoza MD Primary Care Provider Active Start: October 18, 2024 Anais DELGADO MD Attending Provider Active Start: October 18, 2024 Anais DELGADO MD Referring Provider Active Start: October 18, 2024 Team Status: Inactive Member Role/Relationship Status Dates Dr. Сергей Espinoza MD Primary Care Provider Active Start: October 25, 2024 End: October 25, 2024 Stacie Chen BOTTLING SUPERVISOR, BOTTLING SUPERVISOR-C Attending Provider Active Start: October 25, 2024 End: October 25, 2024 Team Status: Active Member Role/Relationship Status Dates Dr. Сергей Espinoza MD Primary Care Provider Active Start: November 03, 2024 Lisa Leonard Attending Provider Active Start: November 03, 2024 Team Status: Active Member Role/Relationship Status Dates Dr. Сергей Espinoza MD Primary care physician Activ e Team Status: Inactive Member Role/Relationship Status Dates Dr. Сергей Espinoza MD Primary care physician Activ e Start: August 02, 2024 End: August 02, 2024 Dr. Anais Osullivan MD Attending physician Active Start: August 02, 2024 End: August 02, 2024 Team Status: Inactive Member Role/Relationship Status Dates Dr. Сергей Espinoza MD Primary care physician Activ e Start: August 08, 2024 End: August 08, 2024 Stacie Chen NP, BOTTLING SUPERVISOR-C Attending physician Active Start: August 08, 2024 End: August 08, 2024 Team Status: Active Member Role/Relationship Status Dates Dr. Сергей Espinoza MD Primary care physician Activ e Start: September 13, 2024 Stacie DELGADO BOTTLING SUPERVISOR-C Attending physician Active Start: September 13, 2024 Stacie DELGADO NP-New Referring Provider Active Start: September 13, 2024 Team Status: Inactive Member Role/Relationship Status Dates Dr. Сергей Espinoza MD Primary care physician Activ e Start: September 13, 2024 End: September 13, 2024 Stacie Chen NP BOTTLING SUPERVISOR-C Attending physician Active Start: September 13, 2024 End: September 13, 2024 Team Status: Active Member Role/Relationship Status Dates Dr. Сергей Espinoza MD Primary care physician Activ e Start: September 14, 2024 Anais DELGADO MD Attending physician Active Start: September 14, 2024 Team Status: Inactive Member Role/Relationship Status Dates Dr. Сергей Espinoza MD Primary care physician Activ e Start: September 16, 2024 End: September 16, 2024 Stacie Chen NP BOTTLING SUPERVISOR-C Attending physician Active Start: September 16, 2024 End: September 16, 2024 Team Status: Active Member Role/Relationship Status Dates Dr. Сергей Espinoza MD Primary care physician Activ e Start: October 03, 2024 Stacie DELGADO BOTTLING SUPERVISOR-C Attending physician Active Start: October 03, 2024 Team Status: Inactive Member Role/Relationship Status Dates Dr. Сергей Espinoza MD Primary care physician Activ e Start: October 04, 2024 End: October 04, 2024 Dr. Anais Osullivan MD Attending physician Active Start: October 04, 2024 End: October 04, 2024 Team Status: Active Member Role/Relationship Status Dates Dr. Сергей Espinoza MD Primary care physician Activ e Start: October 06, 2024 Anais DELGADO MD Attending physician Active Start: October 06, 2024 Anais DELGADO MD Referring Provider Active Start: October 06, 2024 Team Status: Active Member Role/Relationship Status Dates Dr. Сергей Espinoza MD Primary care physician Activ e Start: October 18, 2024 Anais DELGADO MD Attending physician Active Start: October 18, 2024 Anais DELGADO MD Referring Provider Active Start: October 18, 2024 Team Status: Inactive Member Role/Relationship Status Dates Dr. Сергей Espinoza MD Primary care physician Activ e Start: October 25, 2024 End: October 25, 2024 Stacie Chen NP BOTTLING SUPERVISOR-C Attending physician Active Start: October 25, 2024 End: October 25, 2024 Team Status: Active Member Role/Relationship Status Dates Dr. Сергей sEpinoza MD Primary care physician Activ e Start: November 03, 2024 Lisa Leonard Attending physician Active Start: November 03, 2024 Team Status: Active Member Role/Relationship Status Dates Dr. Сергей Espinoza MD Primary care physician Activ e Start: November 27, 2024 Aime Pina MD Emergency Department Physician Active Start: November 27, 2024 Dr. Mariela Lilly MD Attending physician Active Start: November 27, 2024 Team Status: Active Member Role/Relationship Status Dates Dr. Сергей Espinoza MD Primary care physician Activ e Start: November 28, 2024 Aime Pina MD Emergency Department Physician Active Start: November 28, 2024 Dr. Mariela Lilly MD Admitting physician Active Start: November 28, 2024 Dr. Mariela Lilly MD Nurse Practitioner Active Start: November 28, 2024 Dr. Brayden Abdullahi MD Attending physician Active Start: October Dr. Brayden Abdullahi MD Nurse Practitioner Active Start: October Team Status: Active Member Role/Relationship Status Dates Dr. Сергей Espinoza MD Primary care physician Activ e Start: November 29, 2024 Aime Pina MD Emergency Department Physician Active Start: November 29, 2024 Dr. Mariela Lilly MD Admitting physician Active Start: November 29, 2024 Dr. Mariela Lilly MD Nurse Practitioner Active Start: November 29, 2024 Dr. Brayden Abdullahi MD Attending physician Active Start: October Dr. Brayden Abdullahi MD Nurse Practitioner Active Start: October Team Status: Active Member Role/Relationship Status Dates Dr. Сергей Espinoza MD Primary care physician Activ e Start: November 29, 2024 Aime Pina MD Emergency Department Physician Active Start: November 29, 2024 Dr. Mariela Lilly MD Admitting physician Active Start: November 29, 2024 Dr. Mariela Lilly MD Nurse Practitioner Active Start: November 29, 2024 Dr. Johan Adam MD Nurse Practitioner Active Start: November 29, 2024 Dr. Eric Salazar DO Nurse Practitioner Active Start: November 29, 2024 JEREMIAH Copeland Nurse Practitioner Active S tart: November 29, 2024 GEORGES MathurC Nurse Practitioner Active Start: November 29, 2024 JADA Wood Nurse Practitioner Active Start: November 29, 2024 Dr. Weston Choudhary MD Attending physician Active Start: November 29, 2024 Dr. Brayden Abdullahi MD Nurse Practitioner Active Start: October Team Status: Active Member Role/Relationship Status Dates Dr. Сергей Espinoza MD Primary care physician Activ e Start: November 30, 2024 Aime Pina MD Emergency Department Physician Active Start: November 30, 2024 Dr. Mariela Lilly MD Admitting physician Active Start: November 30, 2024 Dr. Mariela Lilly MD Nurse Practitioner Active Start: November 30, 2024 Dr. Johan Adam MD Nurse Practitioner Active Start: November 30, 2024 Dr. Eric Salazar DO Attending physician Active Start: November 30, 2024 Dr. Eric Salazar DO Nurse Practitioner Active Start: November 30, 2024 GEORGES CopelandC Nurse Practitioner Active S tart: November 30, 2024 JEREMIAH Mathur Nurse Practitioner Active Start: November 30, 2024 JADA Wood Nurse Practitioner Active Start: November 30, 2024 Dr. Weston Choduhary MD Nurse Practitioner Active Start: November 30, 2024 Dr. Brayden Abdullahi MD Nurse Practitioner Active Start: November 30, 2024 Team Status: Active Member Role/Relationship Status Dates Dr. Сергей Espinoza MD Primary care physician Activ e Start: November 30, 2024 Aime Pina MD Emergency Department Physician Active Start: November 30, 2024 Dr. Mariela Lilly MD Admitting physician Active Start: November 30, 2024 Dr. Mariela Lilly MD Nurse Practitioner Active Start: November 30, 2024 Dr. Johan Adam MD Nurse Practitioner Active Start: November 30, 2024 Dr. Eric Salazar DO Nurse Practitioner Active Start: November 30, 2024 GEORGES CopelandC Nurse Practitioner Active S tart: November 30, 2024 GEORGES MathurC Nurse Practitioner Active Start: November 30, 2024 JADA Wood Nurse Practitioner Active Start: November 30, 2024 Dr. Weston Choudhary MD Attending physician Active Start: November 30, 2024 Dr. Weston Choudhary MD Nurse Practitioner Active Start: November 30, 2024 Dr. Brayden Abdullahi MD Nurse Practitioner Active Start: November 30, 2024 Team Status: Inactive Member Role/Relationship Status Dates Dr. Сергей Espinoza MD Primary care physician Activ e Start: August 08, 2024 End: August 08, 2024 Stacie Chen NP, BOTTLING SUPERVISOR-C Attending physician Active Start: August 08, 2024 End: August 08, 2024 Team Status: Active Member Role/Relationship Status Dates Dr. Сергей Espinoza MD Primary care physician Activ e Start: September 13, 2024 Stacie DELGADO, BOTTLING SUPERVISOR-C Attending physician Active Start: September 13, 2024 Stacie DELGADO BOTTLING SUPERVISOR-C Referring Provider Active Start: September 13, 2024 Team Status: Inactive Member Role/Relationship Status Dates Dr. Сергей Espinoza MD Primary care physician Activ e Start: September 13, 2024 End: September 13, 2024 Stacie Chen NP, BOTTLING SUPERVISOR-C Attending physician Active Start: September 13, 2024 End: September 13, 2024 Team Status: Active Member Role/Relationship Status Dates Dr. Сергей Espinoza MD Primary care physician Activ e Start: September 14, 2024 Anais DELGADO MD Attending physician Active Start: September 14, 2024 Team Status: Inactive Member Role/Relationship Status Dates Dr. Сергей Espinoza MD Primary care physician Activ e Start: September 16, 2024 End: September 16, 2024 Stacie Chen NP, NP-C Attending physician Active Start: September 16, 2024 End: September 16, 2024 Team Status: Active Member Role/Relationship Status Dates Dr. Сергей Espinoza MD Primary care physician Activ e Start: October 03, 2024 JEREMIAH Quiroz Attending physician Active Start: October 03, 2024 Team Status: Inactive Member Role/Relationship Status Dates Dr. Сергей Espinoza MD Primary care physician Activ e Start: October 04, 2024 End: October 04, 2024 Dr. Anais Osullivan MD Attending physician Active Start: October 04, 2024 End: October 04, 2024 Team Status: Active Member Role/Relationship Status Dates Dr. Сергей Espinoza MD Primary care physician Activ e Start: October 06, 2024 Anais DELGADO MD Attending physician Active Start: October 06, 2024 Anais DELGADO MD Referring Provider Active Start: October 06, 2024 Team Status: Active Member Role/Relationship Status Dates Dr. Сергей Espinoza MD Primary care physician Activ e Start: October 18, 2024 Anais DELGADO MD Attending physician Active Start: October 18, 2024 Anais DELGADO MD Referring Provider Active Start: October 18, 2024 Team Status: Inactive Member Role/Relationship Status Dates Dr. Сергей Espinoza MD Primary care physician Activ e Start: October 25, 2024 End: October 25, 2024 Stacie Chen NP, NP-C Attending physician Active Start: October 25, 2024 End: October 25, 2024 Team Status: Active Member Role/Relationship Status Dates Dr. Сергей Espinoza MD Primary care physician Activ e Start: November 03, 2024 Lisa Leonard Attending physician Active Start: November 03, 2024 Team Status: Active Member Role/Relationship Status Dates Dr. Сергей Espinoza MD Primary care physician Activ e Start: November 27, 2024 Aime Pina MD Emergency Department Physician Active Start: November 27, 2024 Dr. Mariela Lilly MD Attending physician Active Start: November 27, 2024 Team Status: Active Member Role/Relationship Status Dates Dr. Сергей Espinoza MD Primary care physician Activ e Start: November 28, 2024 Aime Pina MD Emergency Department Physician Active Start: November 28, 2024 Dr. Mariela Lilly MD Admitting physician Active Start: November 28, 2024 Dr. Mariela Lilly MD Nurse Practitioner Active Start: November 28, 2024 Dr. Brayden Abdullahi MD Attending physician Active Start: October Dr. Brayden Abdullahi MD Nurse Practitioner Active Start: October Team Status: Active Member Role/Relationship Status Dates Dr. Сергей Espinoza MD Primary care physician Activ e Start: November 29, 2024 Aime Pina MD Emergency Department Physician Active Start: November 29, 2024 Dr. Mariela Lilly MD Admitting physician Active Start: November 29, 2024 Dr. Mariela Lilly MD Nurse Practitioner Active Start: November 29, 2024 Dr. Brayden Abdullahi MD Attending physician Active Start: October Dr. Brayden Abdullahi MD Nurse Practitioner Active Start: October Team Status: Inactive Member Role/Relationship Status Dates Dr. Сергей Espinoaz MD Primary care physician Activ e Start: November 29, 2024 End: December 01, 2024 Aime Pina MD Emergency Department Physician Active Start: November 29, 2024 End: December 01, 2024 Dr. Mariela Lilly MD Admitting physician Active Start: November 29, 2024 End: December 01, 2024 Dr. Mariela Lilly MD Nurse Practitioner Active Start: November 29, 2024 End: December 01, 2024 Dr. Johan Adam MD Nurse Practitioner Active Start: November 29, 2024 End: December 01, 2024 Dr. Eric Salazar DO Nurse Practitioner Active Start: November 29, 2024 End: December 01, 2024 Aundrea Buckner NP-C Nurse Practitioner Active S tart: November 29, 2024 End: December 01, 2024 GEORGES MathurC Nurse Practitioner Active Start: November 29, 2024 End: December 01, 2024 JADA Wood Nurse Practitioner Active Start: November 29, 2024 End: December 01, 2024 Dr. Weston Choudhary MD Attending physician Active Start: November 29, 2024 End: December 01, 2024 Dr. Brayden Abdullahi MD Nurse Practitioner Active Start: October End: December 01, 2024 Team Status: Active Member Role/Relationship Status Dates Dr. Сергей Espinoza MD Primary care physician Activ e Start: November 30, 2024 Aime Pina MD Emergency Department Physician Active Start: November 30, 2024 Dr. Mariela Lilly MD Admitting physician Active Start: November 30, 2024 Dr. Mariela Lilly MD Nurse Practitioner Active Start: November 30, 2024 Dr. Johan Adam MD Nurse Practitioner Active Start: November 30, 2024 Dr. Eric Salazar DO Attending physician Active Start: November 30, 2024 Dr. Eric Salazar DO Nurse Practitioner Active Start: November 30, 2024 GEORGES CopelandC Nurse Practitioner Active S tart: November 30, 2024 Brinda Wright NP-C Nurse Practitioner Active Start: November 30, 2024 JADA Wood Nurse Practitioner Active Start: November 30, 2024 Dr. Weston Choudhary MD Nurse Practitioner Active Start: November 30, 2024 Dr. Brayden Abdullahi MD Nurse Practitioner Active Start: November 30, 2024 Team Status: Active Member Role/Relationship Status Dates Dr. Сергей Espinoza MD Primary care physician Activ e Start: November 30, 2024 Aime Pina MD Emergency Department Physician Active Start: November 30, 2024 Dr. Mariela Lilly MD Admitting physician Active Start: November 30, 2024 Dr. Mariela Lilly MD Nurse Practitioner Active Start: November 30, 2024 Dr. Johan Adam MD Nurse Practitioner Active Start: November 30, 2024 Dr. Eric Salazar DO Nurse Practitioner Active Start: November 30, 2024 Aundrea Buckner , BOTTLING SUPERVISOR-C Nurse Practitioner Active S tart: November 30, 2024 GEORGES MathurC Nurse Practitioner Active Start: November 30, 2024 JADA Wood Nurse Practitioner Active Start: November 30, 2024 Dr. Weston Choudhary MD Attending physician Active Start: November 30, 2024 Dr. Weston Choudhary MD Nurse Practitioner Active Start: November 30, 2024 Dr. Brayden Abdullahi MD Nurse Practitioner Active Start: November 30, 2024 Team Status: Active Member Role/Relationship Status Dates Dr. Сергей Espinoza MD Primary care physician Activ e Start: December 01, 2024 Aime Pina MD Emergency Department Physician Active Start: December 01, 2024 Dr. Mariela Lilly MD Admitting physician Active Start: December 01, 2024 Dr. Mariela Lilly MD Nurse Practitioner Active Start: December 01, 2024 Dr. Johan Adam MD Nurse Practitioner Active Start: December 01, 2024 Dr. Eric Salazar DO Nurse Practitioner Active Start: December 01, 2024 JEREMIAH Copeland Nurse Practitioner Active S tart: December 01, 2024 GEORGES MathurC Nurse Practitioner Active Start: December 01, 2024 JADA Wood Nurse Practitioner Active Start: December 01, 2024 Dr. Weston Choudhary MD Attending physician Active Start: December 01, 2024 Dr. Weston Choudhary MD Nurse Practitioner Active Start: December 01, 2024 Dr. Brayden Abdullahi MD Nurse Practitioner Active Start: December 01, 2024 Team Status: Active Member Role/Relationship Status Dates Dr. Сергей Espinoza MD Primary care physician Activ e Start: December 01, 2024 Aime Pina MD Emergency Department Physician Active Start: December 01, 2024 Dr. Mariela Lilly MD Admitting physician Active Start: December 01, 2024 Dr. Mariela Lilly MD Nurse Practitioner Active Start: December 01, 2024 Dr. Johan Adam MD Nurse Practitioner Active Start: December 01, 2024 Dr. Eric Salazar DO Attending physician Active Start: December 01, 2024 Dr. Eric Salazar DO Nurse Practitioner Active Start: December 01, 2024 JEREMIAH Copeland Nurse Practitioner Active S tart: December 01, 2024 Brinda Kyle , BOTTLING SUPERVISOR-C Nurse Practitioner Active Start: December 01, 2024 JADA Wood Nurse Practitioner Active Start: December 01, 2024 Dr. Weston Choudhary MD Nurse Practitioner Active Start: December 01, 2024 Dr. Brayden Abdullahi MD Nurse Practitioner Active Start: December 01, 2024 Team Status: Inactive Member Role/Relationship Status Dates Dr. Сергей Espinoza MD Primary care physician Activ e Start: September 13, 2024 End: September 13, 2024 Stacie DELGADO, BOTTLING SUPERVISOR-C Attending physician Active Start: September 13, 2024 End: September 13, 2024 Stacie Chen OLS, BOTTLING SUPERVISOR-C Referring Provider Active Start: September 13, 2024 End: September 13, 2024 Team Status: Inactive Member Role/Relationship Status Dates Dr. Сергей Espinoza MD Primary care physician Activ e Start: September 13, 2024 End: September 13, 2024 Stacie DELGADO, BOTTLING SUPERVISOR-C Attending physician Active Start: September 13, 2024 End: September 13, 2024 Stacie DELGADO, BOTTLING SUPERVISOR-C Referring Provider Active Start: September 13, 2024 End: September 13, 2024 Team Status: Inactive Member Role/Relationship Status Dates Dr. Сергей Espinoza MD Primary care physician Activ e Start: September 13, 2024 End: September 13, 2024 Stacie Chen NP, BOTTLING SUPERVISOR-C Attending physician Active Start: September 13, 2024 End: September 13, 2024 Team Status: Active Member Role/Relationship Status Dates Dr. Сергей Espinoza MD Primary care physician Activ e Start: September 14, 2024 Anais DELGADO MD Attending physician Active Start: September 14, 2024 Team Status: Inactive Member Role/Relationship Status Dates Dr. Сергей Espinoza MD Primary care physician Activ e Start: September 16, 2024 End: September 16, 2024 Stacie Chen NP, BOTTLING SUPERVISOR-C Attending physician Active Start: September 16, 2024 End: September 16, 2024 Team Status: Active Member Role/Relationship Status Dates Dr. Сергей Espinoza MD Primary care physician Activ e Start: October 03, 2024 Stacie DELGADO, BOTTLING SUPERVISOR-C Attending physician Active Start: October 03, 2024 Team Status: Inactive Member Role/Relationship Status Dates Dr. Сергей Espinoza MD Primary care physician Activ e Start: October 04, 2024 End: October 04, 2024 Dr. Anais Osullivan MD Attending physician Active Start: October 04, 2024 End: October 04, 2024 Team Status: Active Member Role/Relationship Status Dates Dr. Сергей Espinoza MD Primary care physician Activ e Start: October 06, 2024 Anais DELGADO MD Attending physician Active Start: October 06, 2024 Anais DELGADO MD Referring Provider Active Start: October 06, 2024 Team Status: Active Member Role/Relationship Status Dates Dr. Сергей Espinoza MD Primary care physician Activ e Start: October 18, 2024 Anais DELGADO MD Attending physician Active Start: October 18, 2024 Anais DELGADO MD Referring Provider Active Start: October 18, 2024 Team Status: Inactive Member Role/Relationship Status Dates Dr. Сергей Espinoza MD Primary care physician Activ e Start: October 25, 2024 End: October 25, 2024 Stacie Chen BOTTLING SUPERVISOR, BOTTLING SUPERVISOR-C Attending physician Active Start: October 25, 2024 End: October 25, 2024 Team Status: Active Member Role/Relationship Status Dates Dr. Сергей Espinoza MD Primary care physician Activ e Start: November 03, 2024 Lisa Leonard Attending physician Active Start: November 03, 2024 Team Status: Inactive Member Role/Relationship Status Dates Dr. Сергей Espinoza MD Primary care physician Activ e Start: November 14, 2024 End: November 14, 2024 Stacie Chen BOTTLING SUPERVISOR, BOTTLING SUPERVISOR-C Attending physician Active Start: November 14, 2024 End: November 14, 2024 Team Status: Active Member Role/Relationship Status Dates Dr. Сергей Espinoza MD Primary care physician Activ e Start: November 30, 2024 Aime Pina MD Emergency Department Physician Active Start: November 30, 2024 Dr. Mariela Lilly MD Admitting physician Active Start: November 30, 2024 Dr. Mariela Lilly MD Nurse Practitioner Active Start: November 30, 2024 Dr. Johan Adam MD Nurse Practitioner Active Start: November 30, 2024 Dr. Eric Salazar DO Attending physician Active Start: November 30, 2024 Dr. Eric Salazar DO Nurse Practitioner Active Start: November 30, 2024 JEREMIAH Copeland Nurse Practitioner Active S tart: November 30, 2024 JEREMIAH Mathur Nurse Practitioner Active Start: November 30, 2024 JADA Wood Nurse Practitioner Active Start: November 30, 2024 Dr. Weston Choudhary MD Nurse Practitioner Active Start: November 30, 2024 Dr. Brayden Abdullahi MD Referring Provider Active Start: November 30, 2024 Dr. Brayden Abdullahi MD Nurse Practitioner Active Start: November 30, 2024 Team Status: Active Member Role/Relationship Status Dates Dr. Сергей Espinoza MD Primary care physician Activ e Start: December 01, 2024 Aime Pina MD Emergency Department Physician Active Start: December 01, 2024 Dr. Mariela Lilly MD Admitting physician Active Start: December 01, 2024 Dr. Mariela Lilly MD Nurse Practitioner Active Start: December 01, 2024 Dr. Johan Adam MD Nurse Practitioner Active Start: December 01, 2024 Dr. Eric Salazar DO Attending physician Active Start: December 01, 2024 Dr. Eric Salazar DO Nurse Practitioner Active Start: December 01, 2024 JEREMIAH Copeland Nurse Practitioner Active S tart: December 01, 2024 JEREMIAH Mathur Nurse Practitioner Active Start: December 01, 2024 JADA Wood Nurse Practitioner Active Start: December 01, 2024 Dr. Weston Choudhary MD Referring Provider Active Start: December 01, 2024 Dr. Weston Choudhary MD Nurse Practitioner Active Start: December 01, 2024 Dr. Brayden Abdullahi MD Nurse Practitioner Active Start: December 01, 2024 Goals (unrecognized section and content) Goals [...] BE BASED ON THE PRIMARY CLINICAL RECORDS. [facility]. provides no warranty or guarantee of the accuracy or completeness of information in this document.
[2025-01-17 07:44] LABS: Hematocrit 29.1 % (37-47); Hemoglobin 8.8 g/dL (12.0-15.0); Immature Granulocytes Count 0.040 X10^3/uL (0.0-0.0); Mean Corp Hgb Conc 30.2 g/dL (32-36); Mean Corpuscular Volume 100.7 fL (81-99); Mean Platelet Vol. 9.2 fl (6.2-12.0); NRBC Flagged by Analyzer 0 % (0-5); Platelet Count 212 K/mm3 (150-450); RBC Distribution Width CV 12.8 % (11.6-14.6); RBC Distribution Width SD 47.3 fl (35.1-43.9); Red Blood Count 2.89 M/mm3 (4.2-5.4); White Blood Count 8.6 K/mm3 (4.4-11.0)
[2025-01-17 08:12] LABS: AST(SGOT) 17 U/L (<=31); Alanine Aminotransfer ALT/SGPT < 5 U/L (<=34); Albumin, Serum 3.5 g/dL (3.4-4.8); Alkaline Phosphatase 82 U/L (35-104); Anion Gap 6 (5-15); BUN 10 mg/dL (4-19); BUN/Creat Ratio 18.7 RATIO (10-20); Bilirubin, Direct < 0.08 mg/dL (0.00-0.30); Calcium,Total 8.8 mg/dL (7.6-11.0); Carbon Dioxide 33.7 mmol/L (21.0-32.0); Chloride 99 mmol/L (98-108); Globulin 3.5 g/dL (2.2-4.2); Glucose 91 mg/dL (70-99); Potassium 4.4 mmol/L (3.3-5.1)
== END ==
LOC: OLS.WHLEAS 04:00
PROVIDERS: PCP Internal Medicine; Referring Provider Nurse Practitioner Adult Health; Visit Provider Nurse Practitioner Adult Health
DX: I10 Essential (primary) hypertension (principal); E03.9 Hypothyroidism, unspecified
CPT/HCPCS: 36415; 80048; 80076; 84443; 85025

== ENCOUNTER 2025-01-20 12:58 | Emergency (ER) | payer MEDICARE, MEDICAID, SELFPAY ==
[2025-01-20 12:58] VITALS: BP 136/65; PULSE 92; RESP 16; TEMP 36.6; O2SAT 94
--- NOTE | 2025-01-20 14:43 | RAD_ITS ---
PROCEDURE: CHEST 1 VIEW (PORTABLE) 01/20/2025 REASON FOR EXAM: ALTERED LOC TECHNIQUE: Frontal view of the chest. COMPARISON: January 09, 2023. FINDINGS: Hardware: EKG electrodes are seen. Heart: Mild cardiomegaly. Lungs: Once again, there is evidence of interstitial fibrosis worse in the right upper lobe. This is in keeping with a chronic interstitial fibrosis. No focal infiltrate is seen. Bones: Degenerative changes are identified within the thoracic spine. 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 RAD/Chest 1 View (Portable) IMPRESSION: Stable examination with evidence of chronic interstitial fibrosis more pronounc ed in the right upper lobe. Reading Location: [facility]
--- NOTE | 2025-01-20 14:45 | CT_ITS ---
PROCEDURE: BRAIN/HEAD WITHOUT CONTRAST 01/20/2025 REASON FOR EXAM: ALTERED LOC TECHNIQUE: Procedure Code: CTBR Modality: CT Procedure: BRAIN/HEAD WITHOUT CONTRAST Coronal and Sagittal reconstruction series were provided. One or more dose reduction techniques were used (e.g., Automated exposure control, adjustment of the mA and/or kV according to patient size, use of iterative reconstruction technique. RADIATION DOSE SUMMARY: CTDlvol: 47.06 mGy DLP: 925.62 mGycm COMPARISON: None FINDINGS: Brain: Within normal limits for age CSF Spaces: Mild generalized cerebral atrophy Sinuses/Mastoids: Small polyp or retention cyst along the lateral wall of the right maxillary sinus. Bones: Hyperostosis frontalis interna. CT/Brain/Head without Contrast IMPRESSION: CHRONIC CHANGES. NO ACUTE FINDINGS. Reading Location: [id number]
[2025-01-20 14:58] VITALS: PULSE 82; O2SAT 98
[2025-01-20 15:00] LABS: Hematocrit 27.2 % (37-47); Hemoglobin 8.7 g/dL (12.0-15.0); Immature Granulocytes Count 0.020 X10^3/uL (0.0-0.0); Mean Corp Hgb Conc 32.0 g/dL (32-36); Mean Corpuscular Volume 96.1 fL (81-99); Mean Platelet Vol. 8.5 fl (6.2-12.0); NRBC Flagged by Analyzer 0 % (0-5); Platelet Count 188 K/mm3 (150-450); RBC Distribution Width CV 12.3 % (11.6-14.6); RBC Distribution Width SD 43.5 fl (35.1-43.9); Red Blood Count 2.83 M/mm3 (4.2-5.4); White Blood Count 6.5 K/mm3 (4.4-11.0)
[2025-01-20 15:52] LABS: AST(SGOT) 21 U/L (<=31); Alanine Aminotransfer ALT/SGPT 8 U/L (<=34); Albumin, Serum 3.4 g/dL (3.4-4.8); Alkaline Phosphatase 75 U/L (35-104); Anion Gap 7 (5-15); BUN 10 mg/dL (4-19); BUN/Creat Ratio 18.6 RATIO (10-20); Bilirubin, Direct < 0.08 mg/dL (0.00-0.30); Calcium,Total 8.2 mg/dL (7.6-11.0); Carbon Dioxide 28.5 mmol/L (21.0-32.0); Chloride 94 mmol/L (98-108); Globulin 3.4 g/dL (2.2-4.2); Glucose 112 mg/dL (70-99); Potassium 3.9 mmol/L (3.3-5.1)
[2025-01-20 16:19] LABS: Mucous, Urine 0 SEEN /hpf (<or=2+)
--- NOTE | 2025-01-20 16:24 | EX.ED.DYSGE1 ---
HPI History of Present Illness Chief Complaint: Alt LOC Informant: patient and family Narrative Narrative: 84-year-old female from [facility] facility was brought to the emergency room with altered mental status. Reportedly from the patient and family the patient had her alprazolam which she has been on for about 30 years discontinued the other day and she was started on Ativan. She states that her anxiety has been not controlled since that change and family states that it was reported that she either had a dream or a hallucination regarding her adult children that in the past. The of her adult children has been a source of great anxiety and stress for the patient. Nursing informs me that they were told by the nursing facility that insurance would not pay for her alprazolam and that is why the change was made. Patient denies any recent infectious symptoms. She denies any known head trauma. She does note a headache and states that she often gets a migraine headache when she has anxiety. She denies any nausea/vomiting. She notes that she has barely slept over the past several days. From what I can see in the chart the medication change would have occurred the December. She denies any abdominal pain. She believes that she is having some withdrawal issues from the alprazolam but tells me that she was sent here to see if anything else was potentially going on. [facility] Medical History Migraine Psoriasis Depression Osteoporosis Primary insomnia Hyperlipidemia Hypothyroidism Obstructive sleep apnea (adult) (pediatric) Mild persistent asthma, uncomplicated Unspecified abnormalities of gait and mobility Difficulty in walking, not elsewhere classified Muscle wasting and atrophy, not elsewhere classified, left lower leg Muscle wasting and atrophy, not elsewhere classified, right lower leg Chronic respiratory failure with hypoxia Seasonal allergies Anemia High cholesterol GERD (gastroesophageal reflux disease) HTN (hypertension) Anxiety Pulmonary fibrosis Home Medications ?Medication ?Instructions ?Recorded ?Last Taken ?Type acetaminophen 500 mg tablet 500 mg PO Q6H PRN fever or pain 11/03/24 Unknown History (Tylenol Extra Strength) albuterol sulfate 90 mcg/actuation 2 puff inhalation Q6H PRN 11/03/24 Unknown History aerosol inhaler (Ventolin HFA) shortness of breath or wheezing famotidine 20 mg tablet 20 mg PO QDAY 11/03/24 11/27/24 History fexofenadine 180 mg tablet 180 mg PO QDAY PRN allergy symptoms 11/03/24 Unknown History gabapentin 100 mg capsule 100 mg PO TID 11/03/24 11/27/24 06:00 History guaifenesin 600 mg tablet, 600 mg PO DAILY 11/03/24 11/27/24 History extended release 12 hr (Mucinex) levothyroxine 75 mcg tablet 37.5 mcg PO QDAY 11/03/24 11/27/24 History (Levo-T) magnesium hydroxide 400 mg/5 mL 30 ml PO ONCE PRN stomach upset 11/03/24 Unknown History oral suspension (Milk of Magnesia) nortriptyline 50 mg capsule 100 mg PO QHS 11/03/24 11/26/24 History ondansetron 4 mg disintegrating 4 mg PO Q6H PRN nausea and vomiting 11/03/24 Unknown History tablet pantoprazole 40 mg tablet,delayed 40 mg PO Q12H 11/03/24 11/27/24 10:00 History release pravastatin 40 mg tablet 40 mg PO QDAY 11/03/24 11/26/24 History psyllium husk 2.6 gram/4.1 gram 1 tbsp PO ONCE 11/03/24 11/27/24 History oral powder sennosides 8.6 mg tablet (senna) 8.6 mg PO QDAY 11/03/24 11/27/24 History sumatriptan succinate 100 mg tablet See Rx Instructions PO .COMPLEX 11/03/24 11/26/24 History verapamil 240 mg 24 hr 240 mg PO BID 11/03/24 11/27/24 History capsule,extended release clonidine 0.2 mg/24 hr weekly 1 patch topical QWEEK 11/27/24 Unknown History transdermal patch gabapentin 100 mg capsule 200 mg PO QHS 11/27/24 11/26/24 History hydralazine 25 mg tablet 25 mg PO Q8H PRN sbp>150 11/27/24 Unknown History lidocaine HCl 4 % topical cream 1 applic topical .COMPLEX pain 11/27/24 11/26/24 History (Aspercreme (lidocaine HCl)) metoprolol succinate 25 mg 25 mg PO DAILY 11/27/24 11/27/24 History tablet,extended release 24 hr mometasone 200 mcg/actuation HFA 2 puff inhalation BID 11/27/24 11/27/24 History aerosol inhaler (Asmanex HFA) natural ears 1 gtt EACH EAR QHS PRN ear pain 11/27/24 Unknown History OXYGEN - Supplemental ([facility] 11/28/24 Unknown History INFORMATIONAL USE ONLY) pirfenidone 801 mg tablet (Esbriet) 801 mg PO TID pulmonary fibrosis 11/30/24 11/27/24 14:00 History polysaccharide iron complex 150 mg 150 mg PO DAILY 60 days #60 caps 12/01/24 Unknown Rx iron capsule (Ferrex) lorazepam 1 mg tablet 1 mg PO .every 6 hours anxiety 10 01/19/25 Unknown Rx days #40 tabs alprazolam 1 mg tablet 1 mg PO TID PRN anxiety 5 days #15 01/20/25 Unknown Rx tabs Allergy/AdvReac Type Severity Reaction Status Date / Time amoxicillin Allergy Mild PT UNSURE Verified 01/20/25 12:58 OF REACTION aspirin Allergy Mild PALPITATION Verified 01/20/25 12:58 S ibuprofen Allergy Mild Swelling Verified 01/20/25 12:58 montelukast Allergy Mild Rash Verified 01/20/25 12:58 rofecoxib Allergy Mild Itching Verified 01/20/25 12:58 Sulfa (Sulfonamide Allergy Mild Rash Verified 01/20/25 12:58 Antibiotics) doxycycline AdvReac Mild GI UPSET Verified 01/20/25 12:58 lisinopril AdvReac Mild GI UPSET Verified 01/20/25 12:58 sertraline AdvReac Mild Diarrhea Verified 01/20/25 12:58 Social History Smoking Status: Never smoker ROS ROS ED Constitutional Constitutional ED: Denies chills, fever(s) or weight loss Eyes Eyes: Denies blurry vision, change in vision or diplopia ENT ENT ED: Denies ear pain, rhinorrhea or sore throat Cardiovascular Cardiovascular: Denies chest pain, orthopnea, palpitations or racing heartbeat Respiratory/Chest Respiratory/Chest: Denies cough, dyspnea or orthopnea Gastrointestinal Gastrointestinal: Denies abdominal pain, diarrhea, nausea or vomiting Genitourinary Genitourinary ED: Denies dysuria, hematuria or urinary frequency Musculoskeletal Musculoskeletal: Denies arthralgias or myalgias Integumentary Denies abscess or rash Neurologic Neurologic: Reports headache(s); Denies paresthesias or weakness Psychiatric Psychiatric: Reports anxiety; Denies depression, suicidal ideation or suicidal thoughts Endocrine Endocrinology: Denies polydipsia, polyphagia or polyuria Allergic/Immunologic Allergic/Immunologic ED: Denies mouth swelling, tongue swelling or urticaria EXAM Physical Exam Const Vital Signs: 01/20/25 12:58 Temperature 98 F Temperature Source Temporal Pulse Rate 92 Respiratory Rate 16 Blood Pressure 136/65 H Blood Pressure Mean 88 Pulse Ox 94 Oxygen Delivery Method Nasal Cannula Oxygen Flow Rate (L/min) 2 Positive well nourished and well developed General Appearance ED: well developed HEENT Reports normocephalic, head/scalp atraumatic and moist mucous membranes Eyes PERRL and EOMs intact bilaterally Neck no lymphadenopathy, supple and no JVD Resp normal respiratory effort and clear to auscultation bilaterally Cardio regular rate, regular rhythm and no murmurs GI normal to inspection, nondistended, normoactive bowel sounds and non-tender Palpation: soft Back/Spine no CVA tenderness and normal ROM Extremity normal to inspection General Extremety ED: Negative for edema General Extremity: Negative for edema Neuro oriented x3 and CN's II-XII intact bilaterally Neuro Narrative: Patient at this time is not telling me she is having any hallucinations auditory or visual. She states that she does have anxiety. Sensorium / Orientation: alert Motor Exam: strength 5/5 throughout Psych mental status grossly normal Mood & Affect: Negative for depressed or tearful Skin no rashes or lesions noted and no wounds MDM MDM MDM Narrative Medical decision making narrative: Differential diagnosis includes but not limited to alprazolam withdrawal UTI pneumonia hypoxia dehydration uremia Patient blood work shows a hemoglobin of 8.7 which is chronic for the patient. BMP shows a glucose of 112. Normal LFTs. My independent interpretation of the chest x-ray is pulmonary fibrosis. Brain CT shows no acute findings. I spoke with our case management. Patient is willing to pay for the alprazolam. I can write for a few days to bridge her until things can get sorted out with a more stable prescription. History & Record Review Discussion w/independent historian: Patient and Family Additional record(s) reviewed:: Prior ED visit and Prior labs Lab Data Attestation: I reviewed the patient's lab results. Labs: Laboratory Results - last 24 hr 01/20/25 01/20/25 14:55 16:16 WBC 6.5 RBC 2.83 L Hgb 8.7 L Hct 27.2 L MCV 96.1 MCH 30.7 MCHC 32.0 D RDW Std Deviation 43.5 RDW Coeff of Francisca 12.3 Plt Count 188 MPV 8.5 Immature Gran % (Auto) 0.300 Neut % (Auto) 68.1 Lymph % (Auto) 14.4 L [place] % (Auto) 9.6 Eos % (Auto) 6.7 H Baso % (Auto) 0.9 Absolute Neuts (auto) 4.5 Absolute Lymphs (auto) 0.94 Nucleated RBC % 0 Sodium 129 L Potassium 3.9 Chloride 94 L Carbon Dioxide 28.5 Anion Gap 7 BUN 10 Creatinine 0.52 L Est GFR (MDRD) Non-Af 92 BUN/Creatinine Ratio 18.6 Glucose 112 H Calcium 8.2 Total Bilirubin 0.22 Direct Bilirubin < 0.08 AST 21 ALT 8 Alkaline Phosphatase 75 Total Protein 6.8 Albumin 3.4 Globulin 3.4 Albumin/Globulin Ratio 1.0 Urine Color Straw Urine Clarity Clear Urine pH 7.0 Ur Specific Doyle 1.010 Urine Protein 15 H Urine Glucose (UA) Normal Urine Ketones Negative Urine Occult Blood 10 H Urine Nitrite Negative Urine Bilirubin Negative Urine Urobilinogen Normal Ur Leukocyte Esterase Negative Radiography Diagnostic Testing: Clinical Impression(s) from Imaging Studies Chest X-Ray 01/20/25 14:43 IMPRESSION: Stable examination with evidence of chronic interstitial fibrosis more pronounced in the right upper lobe. Reading Location: [facility] Brain CT 01/20/25 14:45 IMPRESSION: CHRONIC CHANGES. NO ACUTE FINDINGS. 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 Discharge Plan Triage Chief Complaint: Alt LOC ED Provider: Hero Feliz Dx/Rx/DC Orders Clinical Impression: Anxiety, Headache Instructions: Anxiety Disorders Meds Prescriptions: New alprazolam 1 mg tablet 1 mg PO TID PRN (Reason: anxiety) 5 Days Qty: 15 0RF No Action acetaminophen [Tylenol Extra Strength] 500 mg tablet 500 mg PO Q6H PRN (Reason: fever or pain) famotidine 20 mg tablet 20 mg PO QDAY fexofenadine 180 mg tablet 180 mg PO QDAY PRN (Reason: allergy symptoms) gabapentin 100 mg capsule 100 mg PO TID levothyroxine [Levo-T] 75 mcg tablet 37.5 mcg PO QDAY magnesium hydroxide [Milk of Magnesia] 400 mg/5 mL suspension 30 ml PO ONCE PRN (Reason: stomach upset) guaifenesin [Mucinex] 600 mg tablet extended release 12hr 600 mg PO DAILY Rx Instructions: may have additional tab 12 hrs later if needed nortriptyline 50 mg capsule 100 mg PO QHS ondansetron 4 mg tablet,disintegrating 4 mg PO Q6H PRN (Reason: nausea and vomiting) pantoprazole 40 mg tablet,delayed release (DR/EC) 40 mg PO Q12H pravastatin 40 mg tablet 40 mg PO QDAY psyllium husk 2.6 gram/4.1 gram powder 1 tbsp PO ONCE Rx Instructions: mix into at least 8 oz of water or juice before administering sennosides [senna] 8.6 mg tablet 8.6 mg PO QDAY sumatriptan succinate 100 mg tablet See Rx Instructions PO .COMPLEX Rx Instructions: take 1 tab at onset of headache; if no relief, may repeat 1 tab after at least 2 hrs; max = 2 tabs/24 hrs PO albuterol sulfate [Ventolin HFA] 90 mcg/actuation HFA aerosol inhaler 2 puff inhalation Q6H PRN (Reason: shortness of breath or wheezing) verapamil 240 mg capsule,ext rel. pellets 24 hr 240 mg PO BID Asmanex HFA 200 mcg/actuation HFA aerosol inhaler 2 puff inhalation BID lidocaine HCl [Aspercreme (lidocaine HCl)] 4 % cream 1 applic topical .COMPLEX Rx Instructions: 1 applic topically to right hip on 12 hrs off 12 hrs; clonidine 0.2 mg/24 hr patch weekly 1 patch topical QWEEK gabapentin 100 mg capsule 200 mg PO QHS hydralazine 25 mg tablet 25 mg PO Q8H PRN (Reason: sbp>150) metoprolol succinate 25 mg tablet extended release 24 hr 25 mg PO DAILY natural ears 1 gtt EACH EAR QHS PRN (Reason: ear pain) Rx Instructions: right ear OXYGEN - Supplemental ([facility] INFORMATIONAL USE ONLY) Patient Comments: patient states that she wears 3 lpm at home DME is [facility] patient is currently staying at [facility] pirfenidone [Esbriet] 801 mg tablet 801 mg PO TID Rx Instructions: administer with food at the same time(s) each day polysaccharide iron complex [Ferrex 150] 150 mg iron Capsule 150 mg PO DAILY 60 Days Qty: 60 0RF lorazepam 1 mg tablet 1 mg PO .every 6 hours 10 Days Qty: 40 0RF Rx Instructions: Give around the clock Primary Care Provider: Anais Osullivan Referrals: Anais Osullivan MD [Primary Care Provider, Internal Medicine] - As soon as possible Print Language: [place] Citizen Disposition Disposition: Home, Self Care
[2025-01-20 16:35] LABS: Color, Urine Straw (Yellow); Glucose, Dipstick Normal (Normal); Ketone-Dipstick Negative (Negative); Leukocyte Esterase-Dipstick Negative /ul (Negative); Nitrite-Dipstick Negative (Negative); Occult Blood-Urine 10 /ul (Negative); Protein-Dipstick 15 mg/dl (Negative); Specific Gravity, Urine 1.010 (1.002-1.030); Urine Bilirubin Dipstick Negative (Negative)
[2025-01-20 16:58] VITALS: PULSE 114; RESP 24; O2SAT 99
[2025-01-20 17:09] VITALS: BP 176/80; PULSE 83; RESP 26; TEMP 37; O2SAT 100
--- NOTE | 2025-01-20 17:12 | CM.ED ---
Social work SW was made aware by the doctor of patient's situation about 1640. Reportedly, patient has taken Xanax for 30 years due to anxiety and it was discontinued due to insurance denying it. This denial was reportedly due to cost. Due to timing, SW immediately called [facility] (ph: [phone]) and attempted to speak with Management Manager there. That staff member had left for the weekend and this SW was transferred to the assistant JOSE. The training and development assistant REBECA did not have any information for this SW due to working on another floor today and SW was transferred to speak with the RN on patient's unit (ph: [phone]). This RN only knew information that was already provided to SW and there were no staff still present to speak with today. The above information was shared with the doctor who stated being able to write a prescription for patient to self pay for Xanax for over the weekend; patient reportedly agreeable. SW entered patient's room, introducing self and role at [facility]. Patient's nephew/HCPOA Ermias was bedside. SW provided active listening and empathic support as patient discussed frustration with the situation. SW encouraged patient and Ermias to speak with [facility] staff on Thursday morning to see what could be done regarding the situation. Ermias stated intent to do so and patient thanked this SW for trying to get more information. No further needs identified at this time. La Jaeger, SLAG WORKER, BRIDGE OPERATOR SLIP
[2025-01-20 18:03] VITALS: BMI 26.7
[2025-01-20 18:25] LABS: Red Blood Cells-Urine 0-5 SEEN /hpf (0-5); Squamous Epithelial Cells - UA 0-5 SEEN /hpf (5-10)
--- NOTE | 2025-01-20 18:58 | NURSING ---
attempted to call report to [facility] but message left. no answer.
== END 2025-01-20 20:16 | disposition home or self-care (01) ==
PROVIDERS: Emergency Provider Emergency Medicine; PCP Internal Medicine; Visit Provider Emergency Medicine
DX: F41.9 Anxiety disorder, unspecified (principal); E78.00 Pure hypercholesterolemia, unspecified; R51.9 Headache, unspecified; I10 Essential (primary) hypertension; R41.82 Altered mental status, unspecified; K21.9 Gastro-esophageal reflux disease without esophagitis
CPT/HCPCS: 70450; 71045; 80053; 80076; 81001; 85025; 99284; A4216